=== PATIENT | female | born 1965 | race Caucasian/White ===

== ENCOUNTER → 2017-07-25 10:32 | Outpatient (CLI) | payer MEDICAID, SELFPAY ==
--- NOTE | 2017-07-25 10:32 | DT_ITS ---
This patient was seen during an EMR downtime July 18, 2017 - July 25, 2017. This patient may have a combination of paper and electronic documentation or all paper documentation. All documentation is viewable within the e-chart portion of [employer] for each patient visit.
--- NOTE | 2017-07-25 11:00 | PET_ITS ---
EXAMINATION: FDG PET CT INDICATIONS: A 51-year-old female with reported history of pulmonary nodularity. COMPARISON EXAMINATION: CT of the chest report dated 04/29/17. TECHNIQUE: Following the intravenous administration of 16.42 mCi of F-18 deoxyglucose via the right hand, multiplanar image acquisitions of the neck, chest, abdomen and pelvis to level of mid thigh, obtained at one hour post radiopharmaceutical administration contemporaneously interpreted with the current CT of the neck, chest, abdomen and pelvis to level of mid thigh, dated 07/25/[address] of the chest report dated 04/29/17 reveal: SERUM GLUCOSE LEVEL: 147 mg/dl. HEIGHT: 65 inches. WEIGHT: 340 lbs. FINDINGS: 1. There is no quantitative scintigraphic evidence of abnormal increased glucose metabolism within the context of the right hemithorax pulmonary parenchyma to correlate with structural changes noted on review of CT of the thorax dated 07/25/17. 2. Normal physiologic distribution of the radiopharmaceutical is apparent in the hepatic and splenic parenchyma, both renal units, bladder and visualized intestinal tract. There is symmetric and preserved glucose metabolism noted in the visualized portion of the frontal, occipital, temporal and parietal lobes of the cerebral cortex, as well as cerebral hemispheres and basal ganglia. Diffuse intestinal tract activity is noted throughout all four quadrants of the abdominal-pelvic retroperitoneum, mesentery consistent with normal physiologic distribution of the radiopharmaceutical. Pertinent CT findings are as follows. CHEST: Meticulous attention paid to the right hemithorax demonstrates no evidence of abnormal increased glucose metabolism indicative of viable neoplastic infiltration. Coronary arterial calcification is observed. Right-left axillary and scattered mediastinal soft tissue densities are non-glucose avid. ABDOMEN AND PELVIS: There is fatty metamorphosis involving the hepatic parenchyma. The gallbladder is surgically absent. Calcifications are defined in the bilateral lower hemipelvis without evidence of quantitatively significant increased glucose metabolism. Bilateral inguinal soft tissue densities with fatty hilus formation are ametabolic. SKELETAL: Degenerative changes defined in the cervical, thoracic and lumbar spine demonstrate no evidence for glucose hypermetabolism. PET/PET/CT Tumor Base -Thigh Init IMPRESSION: 1. NEGATIVE EXAMINATION. There is no definitive quantitative scintigraphic evidence of viable neoplasm. 2. Meticulous attention paid to the right hemithorax pulmonary parenchyma demonstrates no evidence of quantitatively significant, discernible increased glucose metabolism as previously described. 3. Anatomic stability may be ensured in the ametabolic right hemithorax pulmonary parenchymal density with repeat CT of the thorax in three months. (Candida, Seminars in Thoracic and Cardiovascular Surgery 14:292, 2002). Electronic Signature David Saez D.O. Electronically Signed: David Saez DO at 22:32 EDT Tel , Service support ,
== END ==
PROVIDERS: Family Provider Family Medicine; PCP Family Medicine; Visit Provider Internal Medicine Pulmonary Disease
DX: R91.1 Solitary pulmonary nodule (principal)
CPT/HCPCS: 78815; A9552; A4216

== ENCOUNTER 2019-09-01 17:04 | Inpatient (IN) | payer MEDICAID, SELFPAY ==
[2019-09-01] VITALS (12 sets, daily range): BP systolic 98–172; BP diastolic 52–89; PULSE 83–102; RESP 14–22; TEMP 36.1–37.2; O2SAT 86–97; BMI 56.2; BMI 57.1
--- NOTE | 2019-09-01 17:39 | ED.DCSUM_ITS ---
History of Present Illness Chief Complaint: Abd Pain Informant: Patient - Abdominal Pain/Flank Pain Onset: Days Context: Gradual Onset Timing: Continuous Quality: Sharp Location: RLQ Narrative: Patient is a 53-year-old female with history of diabetes mellitus and likely COPD on 2 L at baseline presenting with abdominal pain. Patient states she started having vague bloating and abdominal discomfort 3 days ago. She states it felt more like gas pains. And then localized to her right lower quadrant is been worsening since last night. She denies any radiation of pain. She has associated nausea but no vomiting. She states her bowel movements have been normal but a little bit on the loose side. She denies any urinary symptoms. She was concerned because of the worsening of her pain so she came to the emergency room. She denies any other complaints at this time. Past Medical History - Allergies and Home Meds Allergies/Adverse Reactions: Allergies tetanus and diphtheria toxoids Allergy (Unknown, Verified 09/01/19 17:06) Other ketorolac tromethamine [From Toradol] Allergy (Verified 09/01/19 17:06) Other morphine Allergy (Verified 09/01/19 17:06) Itching Primary Care Physician: Samson Todd MD [Primary Care Provider] - Past Medical History: - - Diabetes mellitus, likely COPD Surgical History: cholecystectomy, - - Partial right nephrectomy Lives: Spouse/ Significant Other Smoking Status: Heavy Smoker (>10/day) Review of Systems General: Denies: Chills, Fever, Sweats Eyes: Denies: Visual changes - bilaterally, Diplopia ENT: Denies: Rhinorrhea, Sore throat Cardiovascular: Denies: Chest pain, Palpitations Respiratory: Denies: Dyspnea, Cough, Dyspnea on exertion Gastrointestinal: Reports: Abdominal pain, Nausea. Denies: Vomiting, Diarrhea, Melena, Hematochezia Genitourinary: Denies: Dysuria, Hematuria, Frequency Musculoskeletal: Denies: Back pain, Extremity Pain Skin: Denies: Rash, Wounds Neurological: Denies: Headache, Weakness, Numbness Physical Exam Vital Signs/Narrative: Vital Signs Temp Pulse Resp BP Pulse Ox 09/01/19 17:06 97 F L 89 22 H 168/88 H 95 Inital Vital Signs reviewed: Yes General: Well nourished, Well developed, Obese, No Acute Distress Head: Normocephalic, Atraumatic Eyes: Perrl, EOMI ENT: Moist mucous membranes, No rhinorrhea Neck: Supple, Nontender Cardiovascular: Regular rate, Regular rhythm, No murmurs Respiratory: No distress, CTA bilaterally, Chest nontender Abdomen: Soft, Nondistended, Normal bowel sounds, Tender, - - Abdominal exam is difficult secondary to patient's body habitus however she does seem to be tender in the right lower quadrant. Negative for: Guarding, Rebound tenderness Back: Nontender, Normal Inspection. Negative for: CVA tenderness Extremities: Nontender, No edema Skin: Normal color, No rash Neurological: Alert, Oriented x3, Cranial nerves II-XII grossly intact, Normal Strength, Normal Sensation Psychological: Normal affect, Normal Mood Diagnostic/Tx/Re-eval Clinical Impression(s) from Imaging Studies Abdomen/Pelvis CT 09/01/19 17:45 IMPRESSION: Thickening of the appendix with periappendiceal stranding consistent with acute appendicitis. Electronically Signed: Remington Fraire MD at 19:19 EDT Tel , Service support , Laboratory Data 09/01/19 09/01/19 09/01/19 17:13 17:13 19:30 WBC 13.7 H RBC 6.11 H Hgb 17.8 H Hct 55.0 H MCV 90.0 MCH 29.1 MCHC 32.4 RDW Std Deviation 46.8 H RDW Coeff of Ramy 14.3 Plt Count 227 MPV 10.2 Immature Gran % (Auto) 0.500 Neut % (Auto) 78.0 H Lymph % (Auto) 13.2 L [place] % (Auto) 6.2 Eos % (Auto) 1.7 Baso % (Auto) 0.4 Absolute Neuts (auto) 10.7 H Absolute Lymphs (auto) 1.82 Nucleated RBC % 0 Sodium 137 Potassium 4.0 Chloride 99 Carbon Dioxide 35.0 H Anion Gap 3 L BUN 16 Creatinine 0.56 Estim Creat Clear Calc 105.74 Est GFR (MDRD) Af Amer 147 Est GFR (MDRD) Non-Af 122 BUN/Creatinine Ratio 28.8 H Glucose 242 H Calcium 9.3 Total Bilirubin 0.50 AST 17 ALT 25 Alkaline Phosphatase 107 Total Protein 7.7 Albumin 3.0 L Globulin 4.7 H Albumin/Globulin Ratio 0.6 L Lipase 95 Urine Color Yellow Urine Clarity Sl. Cloudy Urine pH 5.0 Ur Specific [place] 1.020 Urine Protein 100 H Urine Glucose (UA) Normal Urine Ketones Negative Urine Occult Blood 50 H Urine Nitrite Negative Urine Bilirubin Negative Urine Urobilinogen Normal Ur Leukocyte Esterase Negative - Rhythm Strip Rhythm Strip: Sinus Rhythm Rate: 94 Ectopy: None - EKG Initial EKG Interpretation: Sinus Rhythm, - - Normal sinus rhythm at a rate of 94 Right axis Normal intervals Normal ST segments - Medical Decision Making She is evaluated for worsening right lower quadrant abdominal pain. She appears nontoxic in no acute distress. She is given IV fluids, Dilaudid and Zofran for symptom control. She does have improvement of her symptoms but does require another re-dose of Dilaudid in the emergency room. Lab work is significant for mild leukocytosis. Urine shows some signs of inflammation but no UTI. CT is consistent with acute appendicitis. Patient is given IV Zosyn. Case is discussed with Dr. Flores, surgery on-call, who admit the patient to take her to surgery. Patient is kept n.p.o. in the emergency room. She is aware of plan of care and need for surgery. ED Disposition - Plan for ED Patient: Disposition: Acute Care [facility] Diagnosis: Acute appendicitis Referrals: Samson Todd MD [Primary Care Provider] -
--- NOTE | 2019-09-01 17:45 | CT_ITS ---
STUDY: CT ABDOMEN AND PELVIS WITH CONTRAST REASON FOR EXAM: Female, 53 years old. Right lower quadrant pain for 2 days, history of partial right nephrectomy. RADIATION DOSAGE (If Supplied By Facility): CTDIvol = ( 23.97 ) mGy, DLP = ( 3325.11 ) mGycm TECHNIQUE: Transaxial images were obtained from the dome of the diaphragm to the symphysis pubis without oral contrast. IV 100mL Isovue-370 was administered. Sagittal and coronal images were reconstructed. Individualized dose optimization techniques were used for this CT. COMPARISON: 07/23/2010. FINDINGS: The visualized portions of the lung bases demonstrate mild atelectasis or scarring in the lingula. The visualized portions of the heart are within normal limits. Small ill-defined low-density lesions in the posterior segment of the right lobe of the liver. There are surgical clips in the gallbladder fossa consistent with a prior cholecystectomy. Normal spleen. Normal pancreas. Normal bilateral adrenal glands. Deformity of the right kidney without evidence of hydronephrosis. Unremarkable left kidney. Normal visualized stomach. Normal small intestine. The ascending colon is not distended. There is thickening of the appendix with periappendiceal stranding consistent with acute appendicitis. Normal abdominal aorta. Normal inferior vena cava. Normal retroperitoneum. Normal urinary bladder. There is diastases of the anterior rectus muscles. The osseous structures are essentially unremarkable. CT/Abdomen/Pelvis W IV Cont ONLY IMPRESSION: Thickening of the appendix with periappendiceal stranding consistent with acute appendicitis. Electronically Signed: Remington Fraire MD at 19:19 EDT Tel , Service support ,
[2019-09-01 17:54] LABS: Absolute Lymphocyte Count 1.82 X10^3/uL (0.83-4.51); Absolute Neutrophil Count 10.7 X10^3/uL (2.0-7.7); Basophil# 0.05 X10^3/uL; Basophil% 0.4 % (0-1); Eosinophil# 0.24 X10^3/uL; Eosinophils% 1.7 % (0-5); Hemoglobin 17.8 g/dL (12.0-15.0); Lymphocyte # 1.82 X10^3/ul (4.0); Lymphocyte % 13.2 % (19-41); Mean Corp Hgb Conc 32.4 g/dL (32-36); Mean Corpuscular Hgb 29.1 pg (27.0-32.0); Mean Platelet Vol. 10.2 fl (6.2-12.0); Monocyte# 0.85 X10^3/uL; Monocyte% 6.2 % (0-10); NRBC Flagged by Analyzer 0 % (0-5); Neutrophil # 10.71 X10^3/uL (2.7-7.7); Platelet Count 227 K/mm3 (150-450); RBC Distribution Width CV 14.3 % (11.6-14.6); RBC Distribution Width SD 46.8 fl (35.1-43.9); Red Blood Count 6.11 M/mm3 (4.2-5.4); White Blood Count 13.7 K/mm3 (4.4-11.0)
[2019-09-01] MEDS: HYDROmorphone 1 MG/ML Syringe 0.5 MG IV (18:04)
[2019-09-01] MEDS: Ondansetron 4 MG/2 ML Vial IV (18:04)
[2019-09-01] MEDS: 0.9% Normal Saline 1,000 ML 1000 ML IV (18:04)
[2019-09-01 18:11] LABS: ALB/GLOB Ratio 0.6 RATIO (0.9-2.4); AST(SGOT) 17 U/L (15-37); Alanine Aminotransfer ALT/SGPT 25 U/L (13-56); Alkaline Phosphatase 107 U/L (45-117); Anion Gap 3 (5-15); BUN 16 mg/dL (7-18); BUN/Creat Ratio 28.8 RATIO (10-20); Calcium,Total 9.3 mg/dL (8.5-10.1); Chloride 99 mmol/L (98-107); Creatinine, Serum 0.56 mg/dL (0.55-1.02); EST Glomerular Filtration Rate 122 mL/min (>60); Est Glom Filt Rate - Afr Amer 147 mL/min (>60); Estimated Creatinine Clearance 105.74 ml/min; Globulin 4.7 g/dL (2.2-4.2); Glucose 242 mg/dL (74-106); Lipase 95 U/L (73-393); Protein, Total 7.7 g/dL (6.4-8.2); Sodium Level 137 mmol/L (136-145)
[2019-09-01 19:44] LABS: Bacteria 0 SEEN /hpf (None Seen); Mucous, Urine 0 SEEN /hpf (<or=2+); White Blood Cells 0 SEEN /hpf (0-5)
[2019-09-01 19:46] LABS: Color, Urine Yellow (Yellow); Glucose, Dipstick Normal (Normal); Ketone-Dipstick Negative (Negative); Leukocyte Esterase-Dipstick Negative /ul (Negative); Nitrite-Dipstick Negative (Negative); Occult Blood-Urine 50 /ul (Negative); Protein-Dipstick 100 mg/dl (Negative); Urine Bilirubin Dipstick Negative (Negative); Urine Clarity Sl. Cloudy (Clear); Urine Urobilinogen Normal (Normal)
--- NOTE | 2019-09-01 19:50 | EKG12_ITS ---
Test Reason : PREOP Blood Pressure : / mmHG Vent. Rate : 094 BPM Atrial Rate : 094 BPM P-R Int : 202 ms QRS Dur : 082 ms QT Int : 386 ms P-R-T Axes : 068 113 073 degrees QTc Int : 482 ms Normal sinus rhythm Possible Left atrial enlargement Right axis deviation Prolonged QT Abnormal ECG Confirmed by ANANYA MALLOY, YARA ([id number]), telegraph editor FUNMILAYO HERNANDEZ ([id number]) on 09/04/2019 9:27:54 AM Referred By: Sabi Flores Confirmed By:YARA HARE MD
[2019-09-01] MEDS: HYDROmorphone 0.5 MG/0.5 ML SYRINGE IV (20:08)
[2019-09-01 20:15] LABS: Squamous Epithelial Cells - UA 5-10 SEEN /hpf (5-10)
--- NOTE | 2019-09-01 20:15 | RAD_ITS ---
STUDY: X-RAY CHEST REASON FOR EXAM: Female, 53 years old. Right lower quadrant pain for 2 days. TECHNIQUE: Single AP portable view of the chest. COMPARISON: 12/29/2010. FINDINGS: Slightly prominent markings but no focal infiltrate is seen. There is no demonstrated pleural abnormality. There is borderline cardiomegaly. Normal mediastinum and ravi. Normal visualized pulmonary arteries. Normal visualized aortic arch and descending thoracic aorta. The thoracic spine is not visualized. Normal visualized ribs, clavicles, and shoulders. There is no demonstrated abnormality of the visualized soft tissue structures of the upper abdomen. RAD/Chest 1 View (Portable) IMPRESSION: Borderline cardiomegaly. No active pulmonary disease. Electronically Signed: Remington Fraire MD at 20:59 EDT Tel , Service support ,
[2019-09-01 20:16] LABS: Red Blood Cells-Urine 0-5 SEEN /hpf (0-5)
--- NOTE | 2019-09-01 20:31 | HP.PCM_ITS ---
History of Present Illness Date of Admission: 09/01/19 The patient is a 53 year old F presented to the ER due to abdominal pain in the right lower/mid quadrant starting last night. Patient did have nausea denies any vomiting. Patient last ate some eggs around 11 AM. Patient is abdominal surgeries include partial right nephrectomy due to cancer, laparoscopic cholecystectomy. Patient has bowel movements daily denies any blood. Patient is never had a colonoscopy. Patient CT abdomen pelvis was consistent with acute appendicitis. Patient does have a leukocytosis of 13. Patient did receive Zosyn IV in the ER. Patient's past medical history for COPD normally on 2 L nasal cannula at home, diabetes, high blood pressure. Past Medical History Past Medical History (Chronic Problems): Chronic Problems (Last Updated 12/26/18 @ 12:49 by Zuleyka Rosenberg) Hx of partial nephrectomy (Chronic) Chronic back pain (Chronic) Tobacco dependence syndrome (Chronic) Morbid obesity (Chronic) Benign essential hypertension (Chronic) Medical History: Medical History (Last Updated 12/26/18 @ 12:49 by Zuleyka Rosenberg) Degenerative disc disease Depression F32.9 IBS (irritable bowel syndrome) K58.9 Microalbuminuria R80.9 Obesity E66.9 Panic disorder F41.0 Sleep apnea G47.30 Type 2 diabetes mellitus E11.9 Urinary calculus N20.9 HTN (hypertension) I10 Allergies tetanus and diphtheria toxoids Allergy (Unknown, Verified 09/01/19 17:06) Other ketorolac tromethamine [From Toradol] Allergy (Verified 09/01/19 17:06) Other morphine Allergy (Verified 09/01/19 17:06) Itching Home Medications: Ambulatory Orders Medication Instructions Recorded Atenolol [Tenormin (Beta Asha)] 50 mg PO DAILY 03/04/15 Fenofibrate [Lofibra] 160 mg PO DAILY 03/04/15 Furosemide [Lasix] 40 mg PO DAILY 03/04/15 Gabapentin [Neurontin] 300 mg PO TID 03/04/15 Lisinopril/Hydrochlorothiazide 2 tab PO DAILY 03/04/15 [Zestoretic 02/02.5 Tablet] Venlafaxine XR [Effexor Xr] 225 mg PO DAILY 03/04/15 metFORMIN HCl [Glucophage] 1,000 mg PO BIDCM 03/04/15 albuterol sulfate 90 mcg/actuation 2 inh INHALATION Q4H PRN ea 12/26/18 breath activated powder inhaler aspirin 81 mg tablet,delayed 81 mg PO DAILY 12/26/18 release atorvastatin 40 mg tablet 40 mg PO QHS 12/26/18 blood sugar diagnostic See Rx Instructions .ROUTE 12/26/18 .MEDSUPPLY #10 ea dulaglutide 1.5 mg/0.5 mL 1.5 mg SC QWEEK 12/26/18 subcutaneous pen injector ertugliflozin 5 mg tablet 5 mg PO QAM 12/26/18 ibuprofen 800 mg tablet 800 mg PO Q6H PRN 12/26/18 insulin aspart U-100 100 unit/mL See Rx Instructions SC TID 12/26/18 (3 mL) subcutaneous pen lancets 28 gauge See Rx Instructions .ROUTE 12/26/18 .MEDSUPPLY #25 ea pen needle, diabetic 29 gauge x See Rx Instructions .ROUTE 12/26/18 1/2 .MEDSUPPLY #30 ea potassium chloride 10 mEq 20 meq PO DAILY tab 12/26/18 tablet,extended release Insulin Degludec [Tresiba 88 unit SQ BID 09/01/19 Flextouch U-100] Tiotropium [place] [Spiriva 18 MCG] 1 puff INHALATION DAILY 09/01/19 Surgical History: Surgical History (Last Updated 12/26/18 @ 12:50 by Zuleyka Rosenberg) H/O dilation and curettage Z98.890 H/O lithotripsy Z98.890 x2 History of renal stent x 3 Hx of cholecystectomy Z90.49 R lower portion of kidney removed 2009 repair of r arm fx as child Surgical History: cholecystectomy, - - Partial right nephrectomy Psychiatric History: No pertinent psych hx 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 Lives: Spouse/ Significant Other Smoking Status: Heavy Smoker (>10/day) - Pack-a-day - *Family History Maternal Family History: Family History (Last Updated 12/26/18 @ 12:51 by Zuleyka Rosenberg) Aunt Diabetes Father Heart disease Sister Heart disease Grandfather Colon cancer Unknown Breast cancer History Items: No pertinent history VTE Information - Inpt Only VTE Present on Admission: Yes VTE Mechan Device Prophylaxis: SCD's Patient Problems: Active and Suspected Problems (Last Updated 12/26/18 @ 12:49 by Zuleyka Rosenberg) Acute appendicitis (Acute) - Physical Exam Vitals/I&O's: Vital Signs Temp Pulse Resp BP Pulse Ox 97 F L 95 18 143/74 H 92 09/01/19 17:06 09/01/19 19:43 09/01/19 19:43 09/01/19 19:43 09/01/19 19:43 Oxygen Flow Rate (L/min) 3 Oxygen Delivery Method Nasal Cannula Weight: 337 lb 15.498 oz Body Mass Index (BMI) 56.2 General: Alert, Oriented x3, Cooperative, No apparent distress HEENT: Atraumatic Lungs: Short of Breath - Better with nasal cannula 3 liters Cardiovascular: Regular rate Abdomen: Soft, Non-Distended, Obese, Tender - Right mid/lower abdomen, no peritoneal signs Extremities: - - Bilateral venous stasis changes due to diabetes Laboratory Results 09/01/19 17:13: WBC 13.7 H, RBC 6.11 H, Hgb 17.8 H, Hct 55.0 H, MCV 90.0, MCH 29.1, MCHC 32.4, RDW Std Deviation 46.8 H, RDW Coeff of Ramy 14.3, Plt Count 227, MPV 10.2, Immature Gran % (Auto) 0.500, Neut % (Auto) 78.0 H, Lymph % (Auto) 13.2 L, [place] % (Auto) 6.2, Eos % (Auto) 1.7, Baso % (Auto) 0.4, Absolute Neuts (auto) 10.7 H, Absolute Lymphs (auto) 1.82, Nucleated RBC % 0 09/01/19 17:13: Sodium 137, Potassium 4.0, Chloride 99, Carbon Dioxide 35.0 H, Anion Gap 3 L, BUN 16, Creatinine 0.56, Estim Creat Clear Calc 105.74, Est GFR (MDRD) Af Amer 147, Est GFR (MDRD) Non-Af 122, BUN/Creatinine Ratio 28.8 H, Glucose 242 H, Calcium 9.3, Total Bilirubin 0.50, AST 17, ALT 25, Alkaline Phosphatase 107, Total Protein 7.7, Albumin 3.0 L, Globulin 4.7 H, Albumin/Globulin Ratio 0.6 L, Lipase 95 09/01/19 19:30: Urine Color Yellow, Urine Clarity Sl. Cloudy, Urine pH 5.0, Ur Specific [place] 1.020, Urine Protein 100 H, Urine Glucose (UA) Normal, Urine Ketones Negative, Urine Occult Blood 50 H, Urine Nitrite Negative, Urine Bilirubin Negative, Urine Urobilinogen Normal, Ur Leukocyte Esterase Negative, Urine RBC 0-5 SEEN, Urine WBC 0 SEEN, Ur Squamous Epith Cells 5-10 SEEN, Urine Bacteria 0 SEEN, Urine Mucus 0 SEEN Assessment/Plan All Active Problems (Last Updated 12/26/18 @ 12:49 by Zuleyka Rosenberg) Acute appendicitis (Acute) 53-year-old female with acute appendicitis, COPD on 2 L nasal cannula at home., hypertension, diabetes 1. Discussed procedure laparoscopic appendectomy, possible open, possible bowel resection along with the risk but not limited to bleeding, infection/abscess, injury to another organ (small bowel, colon, etc.), adhesion, hernia at incision sites, and anesthesia. Also discussed with patient that due to her COPD there could be a chance of her remaining intubated going to the ICU initially after surgery. Patient and her no further questions this time. Sabi Flores M.D. Pager: [phone] [facility] [address] [place] [address], [address] [place] [address] Office: [phone] Procedure Criteria COVID Risk Discussion: Procedure essential: Yes On 05/01/2019 the [facility] Health ([facility]) Public Order signed by [facility] Director Kesha Thomas M.D., regarding the Management of Non-Essential Surgeries and Procedures for the purpose of preserving Personal Protective Equipment (PPE) and critical hospital capacity and resources within [place] went into effect as of 05/02/2019 at 5:00PM. According to the [facility] Public Order: This action will remain in full force and effect until the State of Emergency declared by the Governor no longer exists or the Director of the [facility] rescinds or modifies this Order. This [facility] order stated all non-essential or elective surgeries and procedures that utilize PPE should be delayed unless there is undue risk to the current or future health of a patient. After reviewing the aforementioned [facility] Public Order and the patients clinical case, I have determined that the scheduled procedure meets the criteria to go forward. Reason for performing procedure: There is a risk of rapidly worsening to severe symptoms (time sensitive).
--- NOTE | 2019-09-01 20:38 | ED.RN ---
report called to POLICY CHANGE CLERK.
[2019-09-01 20:46] LABS: Bedside Glucose 242 mg/dL (70-110)
--- NOTE | 2019-09-01 21:00 | APP_PTH ---
PATIENT: JORDYN MATHEW LOC: PCU U#:[id number] AGE/SX: 53/F ROOM: [facility] RE09/01/[address]: Dr. Sabi Flores MD : [id number] BED: 1 DIS: 09/05/2019 SPEC #: [id number] RECD: 09/03/19 08:54 STATUS: DUNG RERubén #: [id number] MARISOL: 09/01/19 21:[address]: Sabi Flores DEPT: SURGICAL PATHOLOGY RECD BY: Hai Cisneros ENTERED: 09/03/19 11:06 SP TYPE: APPENDIX OTHR DR: DO Dr. Samson Falk MD Tissues: Appendix, NOS Procedures: Surgery Specimen Level III HEADER OPERATION: Laparoscopic appendectomy PRE-OP DIAGNOSIS: Acute appendicitis TISSUE SUBMITTED: Appendix MICROSCOPIC DIAGNOSIS Appendix, appendectomy: Acute appendicitis and periappendicitis. SJ:cristopher 09/04/19 MICROSCOPIC DESCRIPTION Slides are reviewed. GROSS DESCRIPTION Received is one container labeled with the patient's name and designated appendix. The specimen consists of an appendix measuring 7 cm in length and up to 0.7 cm in diameter. The attached periappendiceal adipose tissue measures up to 1.5 cm in width. No obvious perforation is identified. The serosal surface is covered with dunlap, purulent exudate. The mucosa is congested and hemorrhagic. The lumen does not contain any fecalith. Electrical Discharge Machine Operator sections are submitted in one cassette. / YAZAN:cristopher 09/03/19 TC:1 CPT: 74551
[2019-09-01] MEDS: Bupiv/Epi 0.5% Mpf 30 ML Vial (21:26)
--- NOTE | 2019-09-01 22:21 | CPS ---
Critical ABG results read back to DIRECTOR OF HOSPITALITY
[2019-09-01 22:25] LABS: Base Excess 10 mmol/L (-2 to +2); Bicarbonate 36.3 mmol/L (22-26); PO2 166 mmHG (75-100); SO2 99 % (95-99); Total Carbon Dioxide 38 mmol/L
--- NOTE | 2019-09-01 22:31 | PCM.OPRPT ---
Report of Operation Date of Procedure: 09/01/19 Pre-Operative Diagnosis: Acute appendicitis Post-Operative Diagnosis: Ruptured appendicitis Surgery/Procedure Performed:: Laparoscopic appendectomy Type of Anesthesia:: General/Supplemental Anesthesiologist: Sp Reid Special Medications: Zosyn 3.375 g IV x1 given in the ER for acute appendicitis Specimen's removed: Appendix Drains: Acuña placed at the end of the case Estimated Blood Loss (mL): 10 cc Fluids Replaced: Per anesthesia Description of Procedure: Indications: 53-year-old female presented to the ER with new right lower quadrant pain starting last night. On workup she was found to have acute appendicitis on CT and a leukocytosis of 18, patient has a past medical history of COPD is on 2 L nasal cannula at home. Patient was started on antibiotics in the ER for acute appendicitis-Zosyn 3.375 g IV x1 Description of the procedure: The patient was placed on operating table in supine position. General anesthesia was induced. A timeout was completed verifying correct patient, procedure, position and special equipment prior to beginning procedure. Abdomen was prepped and draped in usual sterile fashion. Incision was made in the natural skin mid abdomen/midline with a 15 blade scalpel. The fascia was elevated and incised. Entry into the peritoneum was confirmed visually and no bowel was noted in the vicinity of the incision. The Soto trocar was placed under direct vision. Abdomen insufflated with a pressure of 12-15 mmHg. Patient tolerated insertion well. The scope was inserted and the abdomen inspected. No injuries from initial trocar placement were noted. Small amount of purulent fluid was seen in the right lower quadrant. An direct visualization 2 -5 mm trocars were placed one above the symphysis pubis (below the umbilicus as patient does have a pannus) and below the hairline and one in the left lower quadrant lateral to the rectus muscle. Care is taken to avoid injury to the bladder and inferior epigastric vessels. The table was placed in Trendelenburg position with the right side elevated. Due to body habitus an additional 5 mm trocar was placed in the right midabdomen. The appendix was grasped with atraumatic grasper and elevated. It was noted to be inflamed with some purulent fluid in the right lower quadrant, which was sent for culture.. A window was developed in the mesoappendix at the point between the base of the appendix and the cecum. An endoscopic 45 mm linear cutting stapler blue load was then used to divide and staple the base of the appendix. It was reloaded with a vascular load and the mesoappendix similarly divided. Enseal was also used to help free up the dense adhesions attaching the appendix to the side of the cecum. The appendix was withdrawn into the Soto trocar after being placed endoscopically retrieval bag. Appendix was sent to pathology. The appendiceal stump was then irrigated and hemostasis was assured. Fluid was suctioned no other pathology was identified. Secondary trochars were removed under direct visualization. No bleeding was noted trocar sites. The laparoscope withdrawn and the umbilical trocar removed. The abdomen was allowed to collapse. Local anesthesia of 30 mL of 0.5% Marcaine was used at the incision sites. The umbilical trocar site was closed with the [id number] 0 Vicryl suture. The skin was closed up to clear sutures of 4-0 Monocryl and Steri-Strips. Due to patient's history of COPD and CO2 of 70 after intubation patient was kept intubated and taken to the ICU in stable condition. - Complications none
[2019-09-01 22:46] LABS: Blood Gas Specimen Type ALINE; Mode A-C; O2 Delivery Device Vent; Vt 430
[2019-09-01 22:47] LABS: FI02 100; PEEP 4; Time Given 2152
--- NOTE | 2019-09-01 23:19 | RAD_ITS ---
STUDY: X-RAY CHEST REASON FOR EXAM: Female, 53 years old. ETT tube placement TECHNIQUE: Frontal view COMPARISON: None. FINDINGS: ET tube is in the mid trachea. NG tube is in the stomach. Lungs are expanded. There are bibasilar infiltrates and small effusions. There is NO pneumothorax. There is no demonstrated pleural abnormality. Heart is enlarged. Normal mediastinum and ravi. Normal visualized pulmonary arteries. Normal visualized aortic arch and descending thoracic aorta. Normal visualized thoracic spine. Normal visualized ribs, clavicles, and shoulders. There is no demonstrated abnormality of the visualized soft tissue structures of the upper abdomen. RAD/Chest 1 View (Portable) IMPRESSION: ET tube is in the mid trachea. NG tube is in the stomach. Lungs are expanded. There are bibasilar infiltrates and small effusions. There is NO pneumothorax. Heart is enlarged. Electronically Signed: Pascual Stephenson MD at 4:18 EDT , Service support ,
--- NOTE | 2019-09-01 23:52 | RAD_ITS ---
STUDY: X-RAY - ABDOMEN/PELVIS REASON FOR EXAM: Female, 53 years old. OG tube placement TECHNIQUE: Frontal view COMPARISON: None. FINDINGS: NG tube is in the stomach. There is an unremarkable bowel gas pattern. There is no demonstrated free abdominal air. The visualized liver, spleen and kidneys are grossly normal in size and morphology. Normal soft tissue structures. Normal visualized osseous structures. RAD/Abdomen Single View IMPRESSION: NG tube is in the stomach. Electronically Signed: Pascual Stephenson MD at 4:18 EDT , Service support ,
[2019-09-02] VITALS (42 sets, daily range): BP systolic 94–130; BP diastolic 53–66; PULSE 84–97; RESP 13–26; TEMP 37.1–38.5; O2SAT 90–95
[2019-09-02] MEDS: Propofol 10MG/Ml 1,000 MG/100 ML Bottle 9.2 MG CONT INF
[2019-09-02] MEDS: 0.9% Normal Saline 1,000 ML 120 ML IV (00:01)
[2019-09-02] MEDS: Insulin Lispro 100 UNIT/ML INSULN.PEN SC ×5 (00:21→23:33)
[2019-09-02 00:46] LABS: Bedside Glucose 281 mg/dL (70-110)
--- NOTE | 2019-09-02 01:07 | NURSING ---
Pt sedated and intubated at time of admit, unable to address room orientation.
[2019-09-02 01:46] LABS: Base Excess 6 mmol/L (-2 to +2); PO2 81 mmHG (75-100); SO2 94 % (95-99); Total Carbon Dioxide 35 mmol/L; pCO2 69.8 mmHg (35-45); pH 7.28 (7.35-7.45)
[2019-09-02 02:11] LABS: Blood Gas Specimen Type ALINE; Mode A-C; SITE ART LINE
[2019-09-02 02:12] LABS: FI02 60; O2 Delivery Device Vent; PEEP 8; RR 14; Time Given 115; Vt 450
--- NOTE | 2019-09-02 02:13 | CPS ---
Critical blood gas results given to Gilberto JIMENEZ.
[2019-09-02 02:17] LABS: CPK Total, Creatine Kinase 69 U/L (26-192); Triglycerides 235 mg/dL
[2019-09-02] MEDS: Propofol 10MG/Ml 1,000 MG/100 ML Bottle 27.6 MG CONT INF (03:25)
[2019-09-02 04:58] LABS: Absolute Lymphocyte Count 1.49 X10^3/uL (0.83-4.51); Absolute Neutrophil Count 14.4 X10^3/uL (2.0-7.7); Basophil# 0.04 X10^3/uL; Basophil% 0.2 % (0-1); Eosinophil# 0.04 X10^3/uL; Eosinophils% 0.2 % (0-5); Hematocrit 49.7 % (37-47); Hemoglobin 15.5 g/dL (12.0-15.0); Lymphocyte # 1.49 X10^3/ul (4.0); Lymphocyte % 8.7 % (19-41); Mean Corp Hgb Conc 31.2 g/dL (32-36); Mean Corpuscular Hgb 28.8 pg (27.0-32.0); Mean Corpuscular Volume 92.4 fL (81-99); Mean Platelet Vol. 9.7 fl (6.2-12.0); Monocyte# 1.07 X10^3/uL; Monocyte% 6.2 % (0-10); NRBC Flagged by Analyzer 0 % (0-5); Neutrophil # 14.42 X10^3/uL (2.7-7.7); Neutrophil % 84.2 % (47-70); Platelet Count 202 K/mm3 (150-450); RBC Distribution Width CV 14.8 % (11.6-14.6); RBC Distribution Width SD 49.6 fl (35.1-43.9); Red Blood Count 5.38 M/mm3 (4.2-5.4); White Blood Count 17.2 K/mm3 (4.4-11.0)
[2019-09-02 05:34] LABS: Anion Gap 4 (5-15); BUN 22 mg/dL (7-18); BUN/Creat Ratio 26.6 RATIO (10-20); Calcium,Total 8.2 mg/dL (8.5-10.1); Chloride 101 mmol/L (98-107); Creatinine, Serum 0.83 mg/dL (0.55-1.02); EST Glomerular Filtration Rate 77 mL/min (>60); Est Glom Filt Rate - Afr Amer 93 mL/min (>60); Estimated Creatinine Clearance 71.35 ml/min; Glucose 282 mg/dL (74-106); Potassium 4.1 mmol/L (3.5-5.1); Sodium Level 138 mmol/L (136-145)
--- NOTE | 2019-09-02 06:13 | CON.PCM_ITS ---
Reason for Consult Date of Consultation: 09/02/19 Reason for Consultation: Acute respiratory failure History of Present Illness: The patient is a 53-year-old female, with a history as outlined below, who presented to the emergency department on August 31 with generalized abdominal discomfort which later became more focal to the right lower quadrant. The patient has an apparent history of COPD, KELLIE and tobacco dependency, which is being managed by Dr. Bernard at [facility]. She also apparently has a 2 L/min baseline supplemental oxygen requirement. History pertinent to the patient's hospitalization was obtained primarily via chart review, as the patient is currently intubated and mechanically ventilated. The exact severity of her underlying pulmonary disease is unknown. On presentation to the emergency department, the patient was noted to be afebrile and was hemodynamically stable. Laboratory evaluation revealed an elevated white blood cell count of 14,000. The patient was polycythemic with a hemoglobin of 17.8 g/dL. Chemistry profile was notable for a bicarbonate of 35. Lipase was within normal limits. CT abdomen/pelvis revealed thickening of the appendix with periappendiceal stranding consistent with acute appendicitis. The patient was subsequently evaluated by general surgery and taken to the OR on the evening of August 31, where she was noted to have a ruptured appendix and underwent laparoscopic appendectomy. The patient was left intubated following the procedure and was returned to the medical intensive care unit for further management. Past Medical History Past Medical History (Chronic Problems): Chronic Problems (Last Updated 12/26/18 @ 12:49 by Zuleyka Rosenberg) Hx of partial nephrectomy (Chronic) Chronic back pain (Chronic) Tobacco dependence syndrome (Chronic) Morbid obesity (Chronic) Benign essential hypertension (Chronic) Medical History: Medical History (Last Updated 12/26/18 @ 12:49 by Zuleyka Rosenberg) Degenerative disc disease Depression F32.9 IBS (irritable bowel syndrome) K58.9 Microalbuminuria R80.9 Obesity E66.9 Panic disorder F41.0 Sleep apnea G47.30 Type 2 diabetes mellitus E11.9 Urinary calculus N20.9 HTN (hypertension) I10 Allergies tetanus and diphtheria toxoids Allergy (Unknown, Verified 09/01/19 17:06) Other ketorolac tromethamine [From Toradol] Allergy (Verified 09/01/19 17:06) Other morphine Allergy (Verified 09/01/19 17:06) Itching Home Medications: Ambulatory Orders Medication Instructions Recorded Atenolol [Tenormin (Beta Asha)] 50 mg PO DAILY 03/04/15 Fenofibrate [Lofibra] 160 mg PO DAILY 03/04/15 Furosemide [Lasix] 40 mg PO DAILY 03/04/15 Gabapentin [Neurontin] 300 mg PO TID 03/04/15 Lisinopril/Hydrochlorothiazide 2 tab PO DAILY 03/04/15 [Zestoretic /12.5 Tablet] Venlafaxine XR [Effexor Xr] 225 mg PO DAILY 03/04/15 metFORMIN HCl [Glucophage] 1,000 mg PO BIDCM 03/04/15 albuterol sulfate 90 mcg/actuation 2 inh INHALATION Q4H PRN ea 12/26/18 breath activated powder inhaler aspirin 81 mg tablet,delayed 81 mg PO DAILY 12/26/18 release atorvastatin 40 mg tablet 40 mg PO QHS 12/26/18 blood sugar diagnostic See Rx Instructions .ROUTE 12/26/18 .MEDSUPPLY #10 ea dulaglutide 1.5 mg/0.5 mL 1.5 mg SC QWEEK 12/26/18 subcutaneous pen injector ertugliflozin 5 mg tablet 5 mg PO QAM 12/26/18 ibuprofen 800 mg tablet 800 mg PO Q6H PRN 12/26/18 insulin aspart U-100 100 unit/mL See Rx Instructions SC TID 12/26/18 (3 mL) subcutaneous pen lancets 28 gauge See Rx Instructions .ROUTE 12/26/18 .MEDSUPPLY #25 ea pen needle, diabetic 29 gauge x See Rx Instructions .ROUTE 12/26/18 1/2 .MEDSUPPLY #30 ea potassium chloride 10 mEq 20 meq PO DAILY tab 12/26/18 tablet,extended release Insulin Degludec [Tresiba 88 unit SQ BID 09/01/19 Flextouch U-100] Tiotropium Lodge [Spiriva 18 MCG] 1 puff INHALATION DAILY 09/01/19 Surgical History: Surgical History (Last Updated 12/26/18 @ 12:50 by Zuleyka Rosenberg) H/O dilation and curettage Z98.890 H/O lithotripsy Z98.890 x2 History of renal stent x 3 Hx of cholecystectomy Z90.49 R lower portion of kidney removed 2009 repair of r arm fx as child Surgical History: cholecystectomy, - - Partial right nephrectomy Psychiatric History: No pertinent psych hx GIG TENDER History: No pertinent GIG TENDER history Lives: Spouse/ Significant Other Smoking Status: Heavy Smoker (>10/day) - *Family History Maternal Family History: Family History (Last Updated 12/26/18 @ 12:51 by Zuleyka Rosenberg) Aunt Diabetes Father Heart disease Sister Heart disease Grandfather Colon cancer Unknown Breast cancer History Items: No pertinent history Review of Systems Unable to obtain accurate/complete ROS d/t: Due to current intubation and mechanical ventilation status. Patient Problems: Active and Suspected Problems (Last Updated 12/26/18 @ 12:49 by Zuleyka Rosenberg) Acute appendicitis (Acute) Objective: The patient's most recent lab work, culture data and imaging studies have all been personally reviewed. - Physical Exam Vitals/I&O's: Vital Signs Temp Pulse Resp BP Pulse Ox 99.1 F 95 26 H 119/66 94 09/02/19 06:00 09/02/19 06:00 09/02/19 06:00 09/02/19 06:00 09/02/19 06:00 Oxygen Flow Rate (L/min) 4 Oxygen Delivery Method Mechanical Ventilator Weight: 343 lb 0.628 oz Body Mass Index (BMI) 56.2 Finger Stick Blood Glucose 242 Intake and Output for Last 24 Hours 08/31/19 09/01/19 09/02/19 23:59 23:59 23:59 Intake Total 1253.62 / 1253.62 Output Total 210 / 235 220 / 220 Balance -210 / -235 1033.62 / 1033.62 General: Alert, No apparent distress, - - Super morbidly obese. Intubated and mechanically ventilated. Currently tolerating spontaneous mode of mechanical ventilation with marginal tidal volumes and oxygen saturation. HEENT: Atraumatic, Normocephalic Oral: No Gingival or Mucosal Lesions/ Ulcerations, - - Endotracheal tube in place. Neck: Supple, No Nodes, Trachea Midline Lungs: No rhonchi, No wheeze, No rales, Diminished Cardiovascular: Regular rate, Regular Rhythm, No murmurs Abdomen: Bowel Sounds Present, Soft, Obese Extremities: No clubbing, No cyanosis, Diminished Peripheral Pulses, Edema Skin: No breakdown Musculoskeletal: No Muscle Wasting Lymphatic: No Cervical, Supraclavicular, or Inguinal Adenopathy Neurological: - - No focal neurological deficits. Alert and able to follow simple commands. Labs (Last 48 Hours) 09/01/19 09/01/19 09/01/19 17:13 17:13 17:13 WBC 13.7 H RBC 6.11 H Hgb 17.8 H Hct 55.0 H MCV 90.0 MCH 29.1 MCHC 32.4 RDW Std Deviation 46.8 H RDW Coeff of Ramy 14.3 Plt Count 227 MPV 10.2 Immature Gran % (Auto) 0.500 Neut % (Auto) 78.0 H Lymph % (Auto) 13.2 L [place] % (Auto) 6.2 Eos % (Auto) 1.7 Baso % (Auto) 0.4 Absolute Neuts (auto) 10.7 H Absolute Lymphs (auto) 1.82 Nucleated RBC % 0 Specimen Type Sample Site pH Bicarbonate Actual POC Total CO2 Base Excess O2 Saturation O2 % ABG pCO2 ABG pO2 Graeme Test Respiration Rate O2 Delivery Device Vent Mode Tidal Volume POC PEEP Blood Gas Notified Whom Blood Gas Notified Time Sodium 137 Potassium 4.0 Chloride 99 Carbon Dioxide 35.0 H Anion Gap 3 L BUN 16 Creatinine 0.56 Estim Creat Clear Calc 105.74 Est GFR (MDRD) Af Amer 147 Est GFR (MDRD) Non-Af 122 BUN/Creatinine Ratio 28.8 H Glucose 242 H Hemoglobin A1c Calcium 9.3 Total Bilirubin 0.50 AST 17 ALT 25 Alkaline Phosphatase 107 Total Creatine Kinase 69 Total Protein 7.7 Albumin 3.0 L Globulin 4.7 H Albumin/Globulin Ratio 0.6 L Triglycerides 235 H Lipase 95 Urine Color Urine Clarity Urine pH Ur Specific [place] Urine Protein Urine Glucose (UA) Urine Ketones Urine Occult Blood Urine Nitrite Urine Bilirubin Urine Urobilinogen Ur Leukocyte Esterase Urine RBC Urine WBC Ur Squamous Epith Cells Urine Bacteria Urine Mucus POC Glucose 09/01/19 09/01/19 09/01/19 19:30 20:41 22:09 WBC RBC Hgb Hct MCV MCH MCHC RDW Std Deviation RDW Coeff of Ramy Plt Count MPV Immature Gran % (Auto) Neut % (Auto) Lymph % (Auto) [place] % (Auto) Eos % (Auto) Baso % (Auto) Absolute Neuts (auto) Absolute Lymphs (auto) Nucleated RBC % Specimen Type ELOISE Sample Site pH 7.30 L Bicarbonate Actual 36.3 H POC Total CO2 38 Base Excess 10 H O2 Saturation 99 O2 % 100 ABG pCO2 74.0 H* ABG pO2 166 H Graeme Test Respiration Rate O2 Delivery Device Vent Vent Mode A-C Tidal Volume 430 POC PEEP 4 Blood Gas Notified Whom RN Blood Gas Notified Time 215 Sodium Potassium Chloride Carbon Dioxide Anion Gap BUN Creatinine Estim Creat Clear Calc Est GFR (MDRD) Af Amer Est GFR (MDRD) Non-Af BUN/Creatinine Ratio Glucose Hemoglobin A1c Calcium Total Bilirubin AST ALT Alkaline Phosphatase Total Creatine Kinase Total Protein Albumin Globulin Albumin/Globulin Ratio Triglycerides Lipase Urine Color Yellow Urine Clarity Sl. Cloudy Urine pH 5.0 Ur Specific [place] 1.020 Urine Protein 100 H Urine Glucose (UA) Normal Urine Ketones Negative Urine Occult Blood 50 H Urine Nitrite Negative Urine Bilirubin Negative Urine Urobilinogen Normal Ur Leukocyte Esterase Negative Urine RBC 0-5 SEEN Urine WBC 0 SEEN Ur Squamous Epith Cells 5-10 SEEN Urine Bacteria 0 SEEN Urine Mucus 0 SEEN POC Glucose 242 H 09/02/19 09/02/19 09/02/19 00:08 01:18 04:50 WBC 17.2 H RBC 5.38 Hgb 15.5 H Hct 49.7 H MCV 92.4 MCH 28.8 MCHC 31.2 L RDW Std Deviation 49.6 H RDW Coeff of Ramy 14.8 H Plt Count 202 MPV 9.7 Immature Gran % (Auto) 0.500 Neut % (Auto) 84.2 H Lymph % (Auto) 8.7 L [place] % (Auto) 6.2 Eos % (Auto) 0.2 Baso % (Auto) 0.2 Absolute Neuts (auto) 14.4 H Absolute Lymphs (auto) 1.49 Nucleated RBC % 0 Specimen Type [place] Sample Site ART LINE pH 7.28 L Bicarbonate Actual 33.0 H POC Total CO2 35 Base Excess 6 H O2 Saturation 94 L O2 % 60 ABG pCO2 69.8 H* ABG pO2 81 Graeme Test NA Respiration Rate 14 O2 Delivery Device Vent Vent Mode A-C Tidal Volume 450 POC PEEP 8 Blood Gas Notified Whom ICU Blood Gas Notified Time 115 Sodium Potassium Chloride Carbon Dioxide Anion Gap BUN Creatinine Estim Creat Clear Calc Est GFR (MDRD) Af Amer Est GFR (MDRD) Non-Af BUN/Creatinine Ratio Glucose Hemoglobin A1c Calcium Total Bilirubin AST ALT Alkaline Phosphatase Total Creatine Kinase Total Protein Albumin Globulin Albumin/Globulin Ratio Triglycerides Lipase Urine Color Urine Clarity Urine pH Ur Specific [place] Urine Protein Urine Glucose (UA) Urine Ketones Urine Occult Blood Urine Nitrite Urine Bilirubin Urine Urobilinogen Ur Leukocyte Esterase Urine RBC Urine WBC Ur Squamous Epith Cells Urine Bacteria Urine Mucus POC Glucose 281 H 09/02/19 09/02/19 04:50 04:50 WBC RBC Hgb Hct MCV MCH MCHC RDW Std Deviation RDW Coeff of Ramy Plt Count MPV Immature Gran % (Auto) Neut % (Auto) Lymph % (Auto) [place] % (Auto) Eos % (Auto) Baso % (Auto) Absolute Neuts (auto) Absolute Lymphs (auto) Nucleated RBC % Specimen Type Sample Site pH Bicarbonate Actual POC Total CO2 Base Excess O2 Saturation O2 % ABG pCO2 ABG pO2 Graeme Test Respiration Rate O2 Delivery Device Vent Mode Tidal Volume POC PEEP Blood Gas Notified Whom Blood Gas Notified Time Sodium 138 Potassium 4.1 Chloride 101 Carbon Dioxide 33.0 H Anion Gap 4 L BUN 22 H Creatinine 0.83 Estim Creat Clear Calc 71.35 Est GFR (MDRD) Af Amer 93 Est GFR (MDRD) Non-Af 77 BUN/Creatinine Ratio 26.6 H Glucose 282 H Hemoglobin A1c Pending Calcium 8.2 L Total Bilirubin AST ALT Alkaline Phosphatase Total Creatine Kinase Total Protein Albumin Globulin Albumin/Globulin Ratio Triglycerides Lipase Urine Color Urine Clarity Urine pH Ur Specific [place] Urine Protein Urine Glucose (UA) Urine Ketones Urine Occult Blood Urine Nitrite Urine Bilirubin Urine Urobilinogen Ur Leukocyte Esterase Urine RBC Urine WBC Ur Squamous Epith Cells Urine Bacteria Urine Mucus POC Glucose Clinical Impression(s) from Imaging Studies Abdomen/Pelvis CT 09/01/19 17:45 IMPRESSION: Thickening of the appendix with periappendiceal stranding consistent with acute appendicitis. Electronically Signed: Remington Fraire MD at 19:19 EDT Tel , Service support , ADDENDUM: 09/01/192044 Chest X-Ray 09/01/19 20:15 IMPRESSION: Borderline cardiomegaly. No active pulmonary disease. Electronically Signed: Remington Fraire MD at 20:59 EDT Tel , Service support , Chest X-Ray 09/01/19 23:19 IMPRESSION: ET tube is in the mid trachea. NG tube is in the stomach. Lungs are expanded. There are bibasilar infiltrates and small effusions. There is NO pneumothorax. Heart is enlarged. Electronically Signed: Pascual Stephenson MD at 4:18 EDT , Service support , KUB X-Ray 09/01/19 23:52 IMPRESSION: NG tube is in the stomach. Electronically Signed: Pascual Stephenson MD at 4:18 EDT , Service support , Current Medications Acetaminophen (Tylenol) 650 mg PO Q6H PRN PRN PRN Reason: Pain Score 1-10/10 Albuterol Sulfate (Ventolin Aerosols) 2.5 mg INHALATION Q2H PRN PRN PRN Reason: SOB/Wheezing Atenolol (Tenormin (Beta Asha)) 50 mg PO DAILY [facility] Atorvastatin Calcium (Lipitor) 40 mg PO QHS [facility] Last Admin: 09/02/19 02:06 Dose: Not Given Documented by: Dextrose (D50w Syringe) 0 gm IV X1 PRN; Protocol PRN Reason: Hypoglycemia Enoxaparin Sodium (Lovenox) 40 mg SC DAILY RU Furosemide (Lasix) 40 mg PO DAILY [facility] Gabapentin (Neurontin) 300 mg PO TID [facility] Last Admin: 09/02/19 06:06 Dose: Not Given Documented by: Glucagon () 1 mg IM .X1 PRN PRN Reason: Hypoglycemia Hydromorphone HCl (Dilaudid Inj) 0.5 - 1 mg IV Q2H PRN PRN PRN Reason: Pain Score 1-10/10 Sodium Chloride () 1,000 mls @ 120 mls/hr IV .Q8H20M [facility] Last Admin: 09/02/19 00:01 Dose: 120 mls/hr Documented by: Pantoprazole Sodium 40 mg/ (Sodium Chloride) 110 mls @ 330 mls/hr IV Q24 [facility] Last Infusion: 09/02/19 00:52 Dose: Infused Documented by: Piperacillin Sod/Tazobactam (Sod 3.375 gm/ Sodium Chloride) 50 mls @ 12.5 mls/hr IV Q8 [facility] Last Admin: 09/02/19 04:59 Dose: 12.5 mls/hr Documented by: Propofol (Diprivan) 1,000 mg in 100 mls @ 9.198 mls/hr CONT INF .Q29U35M [facility]; Protocol Last Titration: 09/02/19 05:30 Dose: 0 mcg/kg/min, 0 mls/hr Documented by: Fentanyl () 100 mls @ 5 mls/hr CONT INF UD RU; Protocol Last Titration: 09/02/19 06:00 Dose: 0 mcg/hr, 0 mls/hr Documented by: Sodium Chloride () 250 mls @ 15 mls/hr IV .[id number] PRN PRN Reason: Saline Flush Sodium Chloride () 250 mls @ 15 mls/hr IV .[id number] PRN PRN Reason: Additional IVPB Infusion Sodium Chloride () 1,000 mls @ 1 mls/hr IV .Q48H PRN PRN Reason: Saline Flush Insulin Human Lispro (Humalog Kwikpen (Bkc)) 0 unit SC Q6 RU; Protocol Last Admin: 09/02/19 05:09 Dose: 3 u Documented by: Ipratropium Lodge (Atrovent) 0.5 mg INHALATION Q6HWA.RT [facility] Non-Formulary Medication (Ertugliflozin Pidolate [Steglatro]) 5 mg PO QAM RU Nystatin (Mycostatin Powder) 1 applic TOPICAL TID [facility]; Protocol Ondansetron HCl (Zofran) 4 mg IV Q8H PRN PRN PRN Reason: NAUSEA Oxycodone HCl (Oxyir) 5 - 10 mg PO Q4H PRN PRN PRN Reason: Pain Score 6-10/10 Sodium Chloride () 10 - 40 ml IV UD PRN PRN Reason: SALINE FLUSH Venlafaxine HCl (Effexor Xr) 225 mg PO DAILY [facility] Assessment/Plan Active and Suspected Problems (Last Updated 12/26/18 @ 12:49 by Zuleyka Rosenberg) Acute appendicitis (Acute) RECOMMENDATIONS: 1. Place patient back on assist control mode mechanical ventilation, given marginal tidal volumes and oxygen saturation. 2. Obtain repeat plain film chest x-ray. 3. Continue to wean FiO2 as tolerated. 4. Continue scheduled bronchodilator therapy. 5. Continue sliding scale insulin coverage. 6. Continue appropriate ICU prophylaxis. IMPRESSIONS: 1. Acute on chronic combined respiratory failure The patient was initially intubated as a consequence of her need for surgical intervention. She underwent appendectomy but was left intubated given her high risk pulmonary status. Although the patient was placed on a spontaneous breathing trial this morning, her FiO2 requirement remains at 50% with marginal tidal volumes and oxygen saturation. Therefore, the patient will be placed back on assist control mode of mechanical ventilation today. We will plan to obtain repeat plain film chest x-ray. Continue scheduled bronchodilator therapy and wean FiO2 as tolerated. Plan to repeat a spontaneous awakening and breathing trial tomorrow morning. The patient may best be served by being extubated directly to BiPAP for a short period of time, once her readiness for extubation has been established. 2. Acute appendicitis, now POD#1 s/p laparoscopic appendectomy Continue routine postoperative care, including IV antibiotics. Pain will be controlled with fentanyl infusion. 3. COPD of unknown severity/obstructive sleep apnea/continuous tobacco dependency The patient is currently followed through the [facility] system for her underlying obstructive lung disease and sleep apnea. She apparently has a 2 L/min baseline oxygen requirement and continues to smoke cigarettes daily. The exact severity of her underlying lung disease is unknown. However, at the current time, we will plan to continue current supportive measures, including bronchodilator therapy. FiO2 will be weaned as tolerated. 4. Super morbid obesity/hypertension/diabetes mellitus/hyperlipidemia Complicates care, management, recovery and prognosis. Continue sliding scale insulin coverage. TIME: 40 minutes of critical care time, independent of procedures, was spent addressing the patient's acute on chronic combined respiratory failure, acute appendicitis status post laparoscopic appendectomy, COPD, obstructive sleep apnea, super morbid obesity, review of all data and collaboration with the care team. [phone]) [phone]: [id number] Critical care first hour
--- NOTE | 2019-09-02 06:20 | CPS ---
Pt. to be placed on weaning trial per physician's order. Will monitor on trial.
[2019-09-02] MEDS: Ipratropium 0.5 MG/2.5 ML SOLUTION INHALATION ×3 (07:04→18:47)
[2019-09-02 07:17] LABS: Hemoglobin A1c 10.3 % (3.8-5.6)
--- NOTE | 2019-09-02 07:56 | PN.SURG_ITS ---
Patient Problems: Active and Suspected Problems (Last Updated 12/26/18 @ 12:49 by Zuleyka Rosenberg) Acute appendicitis (Acute) Subjective: Patient still requiring 60% FiO2 plan to keep her intubated today per fine patcher. Patient blood sugars are running in the mid 200s, A1c is 10.2, patient is following commands on the vent. - Physical Exam Vitals/I&O's: Vital Signs Temp Pulse Resp BP Pulse Ox 99.0 F 89 22 H 130/64 H 94 09/02/19 07:00 09/02/19 07:21 09/02/19 07:21 09/02/19 07:00 09/02/19 07:21 Oxygen Flow Rate (L/min) 4 Oxygen Delivery Method Mechanical Ventilator Weight: 343 lb 0.628 oz Body Mass Index (BMI) 56.2 Finger Stick Blood Glucose 242 Intake and Output for Last 24 Hours 08/31/19 09/01/19 09/02/19 23:59 23:59 23:59 Intake Total 1253.62 / 1253.62 Output Total 210 / 235 220 / 220 Balance -210 / -235 1033.62 / 1033.62 General: Alert, Cooperative, No apparent distress Cardiovascular: Regular rate Abdomen: Soft, Obese, Tender - Near incisions clean dry and intact with op sites. Extremities: - - Venous stasis changes bilateral lower extremities Psych/Mental Status: Normal Affect Laboratory Results 09/01/19 17:13: WBC 13.7 H, RBC 6.11 H, Hgb 17.8 H, Hct 55.0 H, MCV 90.0, MCH 29.1, MCHC 32.4, RDW Std Deviation 46.8 H, RDW Coeff of Ramy 14.3, Plt Count 227, MPV 10.2, Immature Gran % (Auto) 0.500, Neut % (Auto) 78.0 H, Lymph % (Auto) 13.2 L, [place] % (Auto) 6.2, Eos % (Auto) 1.7, Baso % (Auto) 0.4, Absolute Neuts (auto) 10.7 H, Absolute Lymphs (auto) 1.82, Nucleated RBC % 0 09/01/19 17:13: Sodium 137, Potassium 4.0, Chloride 99, Carbon Dioxide 35.0 H, Anion Gap 3 L, BUN 16, Creatinine 0.56, Estim Creat Clear Calc 105.74, Est GFR (MDRD) Af Amer 147, Est GFR (MDRD) Non-Af 122, BUN/Creatinine Ratio 28.8 H, Glucose 242 H, Calcium 9.3, Total Bilirubin 0.50, AST 17, ALT 25, Alkaline Phosphatase 107, Total Protein 7.7, Albumin 3.0 L, Globulin 4.7 H, Albumi n/Globulin Ratio 0.6 L, Lipase 95 09/01/19 17:13: Total Creatine Kinase 69, Triglycerides 235 H 09/01/19 19:30: Urine Color Yellow, Urine Clarity Sl. Cloudy, Urine pH 5.0, Ur Specific [place] 1.020, Urine Protein 100 H, Urine Glucose (UA) Normal, Urine Ketones Negative, Urine Occult Blood 50 H, Urine Nitrite Negative, Urine Bilirubin Negative, Urine Urobilinogen Normal, Ur Leukocyte Esterase Negative, Urine RBC 0-5 SEEN, Urine WBC 0 SEEN, Ur Squamous Epith Cells 5-10 SEEN, Urine Bacteria 0 SEEN, Urine Mucus 0 SEEN 09/01/19 20:41: POC Glucose 242 H 09/01/19 22:09: Specimen Type ELOISE, pH 7.30 L, Bicarbonate Actual 36.3 H, POC Total CO2 38, Base Excess 10 H, O2 Saturation 99, O2 % 100, ABG pCO2 74.0 H*, ABG pO2 166 H, O2 Delivery Device Vent, Vent Mode A-C, Tidal Volume 430, POC PEEP 4, Blood Gas Notified Whom RN, Blood Gas Notified Time 67409/02/19 00:08: POC Glucose 281 H 09/02/19 01:18: Specimen Type ELOISE, Sample Site ART LINE, pH 7.28 L, Bicarbonate Actual 33.0 H, POC Total CO2 35, Base Excess 6 H, O2 Saturation 94 L , O2 % 60, ABG pCO2 69.8 H*, ABG pO2 81, Graeme Test NA, Respiration Rate 14, O2 Delivery Device Vent, Vent Mode A-C, Tidal Volume 450, POC PEEP 8, Blood Gas Notified Whom ICU , Blood Gas Notified Time 115 09/02/19 04:50: WBC 17.2 H, RBC 5.38, Hgb 15.5 H, Hct 49.7 H, MCV 92.4, MCH 28.8, MCHC 31.2 L, RDW Std Deviation 49.6 H, RDW Coeff of Ramy 14.8 H, Plt Count 202, MPV 9.7, Immature Gran % (Auto) 0.500, Neut % (Auto) 84.2 H, Lymph % (Auto) 8.7 L, [place] % (Auto) 6.2, Eos % (Auto) 0.2, Baso % (Auto) 0.2, Absolute Neuts (auto) 14.4 H, Absolute Lymphs (auto) 1.49, Nucleated RBC % 0 09/02/19 04:50: Sodium 138, Potassium 4.1, Chloride 101, Carbon Dioxide 33.0 H, Anion Gap 4 L, BUN 22 H, Creatinine 0.83, Estim Creat Clear Calc 71.35, Est GFR (MDRD) Af Amer 93, Est GFR (MDRD) Non-Af 77, BUN/Creatinine Ratio 26.6 H, Glucose 282 H, Calcium 8.2 L 09/02/19 04:50: Hemoglobin A1c 10.3 H 09/02/19 04:50: B-Natriuretic Peptide 49.0 09/02/19 06:50: MRSA (PCR) Pending Current Medications Acetaminophen (Tylenol) 650 mg PO Q6H PRN PRN PRN Reason: Pain Score 1-10/10 Albuterol Sulfate (Ventolin Aerosols) 2.5 mg INHALATION Q2H PRN PRN PRN Reason: SOB/Wheezing Atenolol (Tenormin (Beta Asha)) 50 mg PO DAILY [facility] Atorvastatin Calcium (Lipitor) 40 mg PO QHS [facility] Last Admin: 09/02/19 02:06 Dose: Not Given Documented by: Dextrose (D50w Syringe) 0 gm IV X1 PRN; Protocol PRN Reason: Hypoglycemia Enoxaparin Sodium (Lovenox) 40 mg SC DAILY [facility] Furosemide (Lasix) 40 mg PO DAILY [facility] Gabapentin (Neurontin) 300 mg PO TID [facility] Last Admin: 09/02/19 06:06 Dose: Not Given Documented by: Glucagon () 1 mg IM .X1 PRN PRN Reason: Hypoglycemia Pantoprazole Sodium 40 mg/ (Sodium Chloride) 110 mls @ 330 mls/hr IV Q24 [facility] Last Infusion: 09/02/19 00:52 Dose: Infused Documented by: Piperacillin Sod/Tazobactam (Sod 3.375 gm/ Sodium Chloride) 50 mls @ 12.5 mls/hr IV Q8 RU Last Admin: 09/02/19 04:59 Dose: 12.5 mls/hr Documented by: Propofol (Diprivan) 1,000 mg in 100 mls @ 9.198 mls/hr CONT INF .[id number] [facility]; Protocol Last Titration: 09/02/19 05:30 Dose: 0 mcg/kg/min, 0 mls/hr Documented by: Fentanyl () 100 mls @ 5 mls/hr CONT INF UD [facility]; Protocol Last Titration: 09/02/19 06:00 Dose: 0 mcg/hr, 0 mls/hr Documented by: Sodium Chloride () 250 mls @ 15 mls/hr IV .[id number] PRN PRN Reason: Saline Flush Sodium Chloride () 250 mls @ 15 mls/hr IV .[id number] PRN PRN Reason: Additional IVPB Infusion Sodium Chloride () 1,000 mls @ 1 mls/hr IV .Q48H PRN PRN Reason: Saline Flush Insulin Human Lispro (Humalog Kwikpen (Bkc)) 0 unit SC Q6 RU; Protocol Last Admin: 09/02/19 05:09 Dose: 3 u Documented by: Ipratropium [place] (Atrovent) 0.5 mg INHALATION Q6HWA.RT [facility] Last Admin: 09/02/19 07:04 Dose: 0.5 mg Documented by: Non-Formulary Medication (Ertugliflozin Pidolate [Steglatro]) 5 mg PO QAM RU Nystatin (Mycostatin Powder) 1 applic TOPICAL TID [facility]; Protocol Ondansetron HCl (Zofran) 4 mg IV Q8H PRN PRN PRN Reason: NAUSEA Sodium Chloride () 10 - 40 ml IV UD PRN PRN Reason: SALINE FLUSH Venlafaxine HCl (Effexor Xr) 225 mg PO DAILY [facility] Medical Necessity - Tobacco Use Smoking Status: Heavy Smoker (>10/day) Assessment/Plan All Active Problems (Last Updated 12/26/18 @ 12:49 by Zuleyka Rosenberg) Acute appendicitis (Acute) 53-year-old female with acute appendicitis, COPD on 2 L nasal cannula at home., hypertension, diabetes not well controlled 1. Patient is currently in ICU due to hypoxia/COPD. Patient's still intubated and will remain intubated today as she still requires 6% FiO2. 2. Continue Zosyn 3.375 g IV 8 hours for perforated appendicitis 3. Continue sliding insulin scale will change to high protocol. Sabi Flores M.D. Pager: [phone] [facility] [address] [place] [address], [address] [place] [id number] Office: [phone]
--- NOTE | 2019-09-02 08:03 | RAD_ITS ---
STUDY: X-RAY CHEST REASON FOR EXAM: Female, 53 years old. Respiratory failure TECHNIQUE: Frontal view COMPARISON: September 01, 2019. FINDINGS: Nasogastric and endotracheal tubes are stable. The lungs are expanded. Patchy basilar infiltrates bilaterally with interval worsening. Possible left pleural effusion. Cardiomegaly. Normal mediastinum and ravi. Prominence of the central pulmonary arteries. Normal visualized aortic arch and descending thoracic aorta. Normal visualized thoracic spine. Normal visualized ribs, clavicles, and shoulders. There is no demonstrated abnormality of the visualized soft tissue structures of the upper abdomen. RAD/Chest 1 View (Portable) IMPRESSION: Basilar infiltrates bilaterally. Possible left pleural effusion. Cardiomegaly and central pulmonary vascular prominence. Electronically Signed: Laureano Howard DO at 9:03 EDT Tel [phone], Service support ,
--- NOTE | 2019-09-02 08:04 | CPS ---
Pt. placed back on AC/VC settings for ventilator per .
[2019-09-02] MEDS: Nystatin Powder 15gm Bottle 1 APPLIC TOPICAL ×3 (08:37→22:11)
[2019-09-02 08:39] LABS: M R Staph aureus DNA By PCR Negative (Negative); Probe Check PASS; Specimen Processing Control PASS
[2019-09-02] MEDS: Propofol 10MG/Ml 1,000 MG/100 ML Bottle 13.8 MG CONT INF ×2 (09:53→15:19)
[2019-09-02] MEDS: Enoxaparin 40 MG/0.4 ML Syringe SC (09:59)
[2019-09-02] MEDS: Furosemide 40 MG Tablet GT (10:00)
[2019-09-02] MEDS: Gabapentin 300 MG Capsule GT ×2 (14:03→22:11)
[2019-09-02] MEDS: fentaNYL drip 100 ML 5 MCG CONT INF ×3 (15:11→23:37)
[2019-09-02] MEDS: Atenolol 50 MG Tablet GT (16:43)
[2019-09-02 17:03] LABS: Bedside Glucose 266 mg/dL (70-110)
[2019-09-02 17:04] LABS: Bedside Glucose 301 mg/dL (70-110)
[2019-09-02 18:00] LABS: Bedside Glucose 218 mg/dL (70-110)
[2019-09-02] MEDS: Acetaminophen 650 MG/20 ML UDC GT (18:26)
[2019-09-02] MEDS: Propofol 10MG/Ml 1,000 MG/100 ML Bottle 18.4 MG CONT INF (20:26)
[2019-09-02] MEDS: Atorvastatin Calcium 40 MG Tablet GT (22:11)
[2019-09-02 23:46] LABS: Bedside Glucose 224 mg/dL (70-110)
[2019-09-03] VITALS (42 sets, daily range): BP systolic 93–157; BP diastolic 61–95; PULSE 75–115; RESP 12–27; TEMP 37.4–38.7; O2SAT 60–100
[2019-09-03] MEDS: Propofol 10MG/Ml 1,000 MG/100 ML Bottle 18.4 MG CONT INF (02:38)
[2019-09-03 04:45] LABS: Absolute Lymphocyte Count 1.03 X10^3/uL (0.83-4.51); Absolute Neutrophil Count 11.3 X10^3/uL (2.0-7.7); Basophil# 0.04 X10^3/uL; Basophil% 0.3 % (0-1); Eosinophil# 0.11 X10^3/uL; Eosinophils% 0.8 % (0-5); Hematocrit 50.1 % (37-47); Hemoglobin 15.4 g/dL (12.0-15.0); Lymphocyte # 1.03 X10^3/ul (4.0); Lymphocyte % 7.8 % (19-41); Mean Corp Hgb Conc 30.7 g/dL (32-36); Mean Corpuscular Hgb 28.3 pg (27.0-32.0); Mean Corpuscular Volume 92.1 fL (81-99); Mean Platelet Vol. 10.1 fl (6.2-12.0); Monocyte# 0.73 X10^3/uL; Monocyte% 5.5 % (0-10); NRBC Flagged by Analyzer 0 % (0-5); Neutrophil # 11.27 X10^3/uL (2.7-7.7); Neutrophil % 84.8 % (47-70); Platelet Count 199 K/mm3 (150-450); RBC Distribution Width CV 14.7 % (11.6-14.6); RBC Distribution Width SD 49.7 fl (35.1-43.9); Red Blood Count 5.44 M/mm3 (4.2-5.4); White Blood Count 13.3 K/mm3 (4.4-11.0)
[2019-09-03 04:52] LABS: Anion Gap 4 (5-15); BUN 17 mg/dL (7-18); BUN/Creat Ratio 26.9 RATIO (10-20); Calcium,Total 8.4 mg/dL (8.5-10.1); Chloride 102 mmol/L (98-107); Creatinine, Serum 0.63 mg/dL (0.55-1.02); EST Glomerular Filtration Rate 105 mL/min (>60); Est Glom Filt Rate - Afr Amer 127 mL/min (>60); Estimated Creatinine Clearance 93.99 ml/min; Glucose 226 mg/dL (74-106); Magnesium 1.4 mg/dL (1.6-2.6); Phosphorus 2.1 mg/dL (2.5-4.9); Potassium 3.4 mmol/L (3.5-5.1); Sodium Level 138 mmol/L (136-145)
[2019-09-03] MEDS: Insulin Lispro 100 UNIT/ML INSULN.PEN SC ×4 (05:21→21:16)
[2019-09-03] MEDS: Nystatin Powder 15gm Bottle 1 APPLIC TOPICAL ×3 (05:21→21:15)
[2019-09-03] MEDS: Gabapentin 300 MG Capsule GT ×2 (05:22→14:38)
--- NOTE | 2019-09-03 06:43 | CPS ---
Patient extubated and placed immediately on AVAPS per Dr Ray.
--- NOTE | 2019-09-03 06:49 | PCM.PN.INT ---
Subjective: Patient did okay overnight. Patient was febrile, but remained hemodynamically stable. Patient did have a spontaneous breathing trial this morning and was able to tolerate an hour. ABG showed marginal oxygenation and ventilation. Discussed with the patient she states that she is on a CPAP of 11 for obstructive sleep apnea. Sleep lab did not report patient has had any studies here, but PCP is at the [facility]. Patient did agree to be extubated to AVAPS, so proceeded with extubation. Patient did have moderate to large secretions reported by respiratory. Patient reported that she does have a productive cough on a daily basis. General: Alert, Oriented x3, Cooperative, No apparent distress, Well developed, Well nourished, - - Morbidly obese. Good ventilator synchrony initially. Tolerated extubation. HEENT: Atraumatic, PERRLA, EOMI, Normocephalic, - - Slight scleral injection. Oral: Moist Mucosa, No Gingival or Mucosal Lesions/ Ulcerations Neck: Supple, No JVD, No Nodes, Trachea Midline, - - Difficult to assess JVD secondary to body habitus. Large neck noted. Lungs: No rhonchi, No wheeze, No rales, Diminished, - - Symmetric expansion. No dullness to percussion. Cardiovascular: Regular rate, Regular Rhythm, Normal S1, Normal S2, No murmurs, No rub noted, No Gallop Abdomen: Bowel Sounds Present, Soft, Non Tender, Non-Distended, Obese Extremities: No clubbing, No cyanosis, Edema Skin: Incision - Clean, dry and intact Musculoskeletal: No Tenderness to Palpation of Joints or Extremities Lymphatic: No Cervical, Supraclavicular, or Inguinal Adenopathy Neurological: Cranial nerves II-XII grossly intact, Neuro grossly intact, Motor Exam 5/5 strength throughout Psych/Mental Status: Alert and oriented to time, place, person, mood and affect Vital Signs Temp Pulse Resp BP Pulse Ox 38.7 C H 115 H 27 H 157/89 H 90 09/03/19 05:00 09/03/19 05:00 09/03/19 05:00 09/03/19 05:00 09/03/19 05:00 Oxygen Flow Rate (L/min) 4 Oxygen Delivery Method Mechanical Ventilator Weight: 155.6 kg Body Mass Index (BMI) 56.2 Finger Stick Blood Glucose 242 Intake and Output for Last 24 Hours 09/01/19 09/02/1920 23:59 23:59 23:59 Intake Total 2978.60 / 2998.92 149.84 / 149.84 Output Total 210 / 235 1465 / 1520 280 / 280 Balance -210 / -235 1513.60 / 1478.92 -130.16 / -130.16 Labs (Last 48 Hours) 09/01/19 09/01/19 09/01/19 17:13 17:13 17:13 WBC 13.7 H RBC 6.11 H Hgb 17.8 H Hct 55.0 H MCV 90.0 MCH 29.1 MCHC 32.4 RDW Std Deviation 46.8 H RDW Coeff of Ramy 14.3 Plt Count 227 MPV 10.2 Immature Gran % (Auto) 0.500 Neut % (Auto) 78.0 H Lymph % (Auto) 13.2 L [place] % (Auto) 6.2 Eos % (Auto) 1.7 Baso % (Auto) 0.4 Absolute Neuts (auto) 10.7 H Absolute Lymphs (auto) 1.82 Nucleated RBC % 0 Specimen Type Sample Site pH Bicarbonate Actual POC Total CO2 Base Excess O2 Saturation O2 % ABG pCO2 ABG pO2 Graeme Test Respiration Rate O2 Delivery Device Vent Mode Tidal Volume POC PEEP Blood Gas Notified Whom Blood Gas Notified Time Sodium 137 Potassium 4.0 Chloride 99 Carbon Dioxide 35.0 H Anion Gap 3 L BUN 16 Creatinine 0.56 Estim Creat Clear Calc 105.74 Est GFR (MDRD) Af Amer 147 Est GFR (MDRD) Non-Af 122 BUN/Creatinine Ratio 28.8 H Glucose 242 H Hemoglobin A1c Calcium 9.3 Phosphorus Magnesium Total Bilirubin 0.50 AST 17 ALT 25 Alkaline Phosphatase 107 Total Creatine Kinase 69 B-Natriuretic Peptide Total Protein 7.7 Albumin 3.0 L Globulin 4.7 H Albumin/Globulin Ratio 0.6 L Triglycerides 235 H Lipase 95 Urine Color Urine Clarity Urine pH Ur Specific [place] Urine Protein Urine Glucose (UA) Urine Ketones Urine Occult Blood Urine Nitrite Urine Bilirubin Urine Urobilinogen Ur Leukocyte Esterase Urine RBC Urine WBC Ur Squamous Epith Cells Urine Bacteria Urine Mucus MRSA (PCR) POC Glucose 09/01/19 09/01/19 09/01/19 19:30 20:41 22:09 WBC RBC Hgb Hct MCV MCH MCHC RDW Std Deviation RDW Coeff of Ramy Plt Count MPV Immature Gran % (Auto) Neut % (Auto) Lymph % (Auto) [place] % (Auto) Eos % (Auto) Baso % (Auto) Absolute Neuts (auto) Absolute Lymphs (auto) Nucleated RBC % Specimen Type ETNA Sample Site pH 7.30 L Bicarbonate Actual 36.3 H POC Total CO2 38 Base Excess 10 H O2 Saturation 99 O2 % 100 ABG pCO2 74.0 H* ABG pO2 166 H Graeme Test Respiration Rate O2 Delivery Device Vent Vent Mode A-C Tidal Volume 430 POC PEEP 4 Blood Gas Notified Whom RN Blood Gas Notified Time 2151 Sodium Potassium Chloride Carbon Dioxide Anion Gap BUN Creatinine Estim Creat Clear Calc Est GFR (MDRD) Af Amer Est GFR (MDRD) Non-Af BUN/Creatinine Ratio Glucose Hemoglobin A1c Calcium Phosphorus Magnesium Total Bilirubin AST ALT Alkaline Phosphatase Total Creatine Kinase B-Natriuretic Peptide Total Protein Albumin Globulin Albumin/Globulin Ratio Triglycerides Lipase Urine Color Yellow Urine Clarity Sl. Cloudy Urine pH 5.0 Ur Specific [place] 1.020 Urine Protein 100 H Urine Glucose (UA) Normal Urine Ketones Negative Urine Occult Blood 50 H Urine Nitrite Negative Urine Bilirubin Negative Urine Urobilinogen Normal Ur Leukocyte Esterase Negative Urine RBC 0-5 SEEN Urine WBC 0 SEEN Ur Squamous Epith Cells 5-10 SEEN Urine Bacteria 0 SEEN Urine Mucus 0 SEEN MRSA (PCR) POC Glucose 242 H 09/02/19 09/02/19 09/02/19 00:08 01:18 04:50 WBC 17.2 H RBC 5.38 Hgb 15.5 H Hct 49.7 H MCV 92.4 MCH 28.8 MCHC 31.2 L RDW Std Deviation 49.6 H RDW Coeff of Ramy 14.8 H Plt Count 202 MPV 9.7 Immature Gran % (Auto) 0.500 Neut % (Auto) 84.2 H Lymph % (Auto) 8.7 L [place] % (Auto) 6.2 Eos % (Auto) 0.2 Baso % (Auto) 0.2 Absolute Neuts (auto) 14.4 H Absolute Lymphs (auto) 1.49 Nucleated RBC % 0 Specimen Type ETNA Sample Site ART LINE pH 7.28 L Bicarbonate Actual 33.0 H POC Total CO2 35 Base Excess 6 H O2 Saturation 94 L O2 % 60 ABG pCO2 69.8 H* ABG pO2 81 Graeme Test NA Respiration Rate 14 O2 Delivery Device Vent Vent Mode A-C Tidal Volume 450 POC PEEP 8 Blood Gas Notified Whom ICU MD Blood Gas Notified Time 115 Sodium Potassium Chloride Carbon Dioxide Anion Gap BUN Creatinine Estim Creat Clear Calc Est GFR (MDRD) Af Amer Est GFR (MDRD) Non-Af BUN/Creatinine Ratio Glucose Hemoglobin A1c Calcium Phosphorus Magnesium Total Bilirubin AST ALT Alkaline Phosphatase Total Creatine Kinase B-Natriuretic Peptide Total Protein Albumin Globulin Albumin/Globulin Ratio Triglycerides Lipase Urine Color Urine Clarity Urine pH Ur Specific [place] Urine Protein Urine Glucose (UA) Urine Ketones Urine Occult Blood Urine Nitrite Urine Bilirubin Urine Urobilinogen Ur Leukocyte Esterase Urine RBC Urine WBC Ur Squamous Epith Cells Urine Bacteria Urine Mucus MRSA (PCR) POC Glucose 281 H 09/02/19 09/02/19 09/02/19 04:50 04:50 04:50 WBC RBC Hgb Hct MCV MCH MCHC RDW Std Deviation RDW Coeff of Ramy Plt Count MPV Immature Gran % (Auto) Neut % (Auto) Lymph % (Auto) [place] % (Auto) Eos % (Auto) Baso % (Auto) Absolute Neuts (auto) Absolute Lymphs (auto) Nucleated RBC % Specimen Type Sample Site pH Bicarbonate Actual POC Total CO2 Base Excess O2 Saturation O2 % ABG pCO2 ABG pO2 Graeme Test Respiration Rate O2 Delivery Device Vent Mode Tidal Volume POC PEEP Blood Gas Notified Whom Blood Gas Notified Time Sodium 138 Potassium 4.1 Chloride 101 Carbon Dioxide 33.0 H Anion Gap 4 L BUN 22 H Creatinine 0.83 Estim Creat Clear Calc 71.35 Est GFR (MDRD) Af Amer 93 Est GFR (MDRD) Non-Af 77 BUN/Creatinine Ratio 26.6 H Glucose 282 H Hemoglobin A1c 10.3 H Calcium 8.2 L Phosphorus Magnesium Total Bilirubin AST ALT Alkaline Phosphatase Total Creatine Kinase B-Natriuretic Peptide 49.0 Total Protein Albumin Globulin Albumin/Globulin Ratio Triglycerides Lipase Urine Color Urine Clarity Urine pH Ur Specific [place] Urine Protein Urine Glucose (UA) Urine Ketones Urine Occult Blood Urine Nitrite Urine Bilirubin Urine Urobilinogen Ur Leukocyte Esterase Urine RBC Urine WBC Ur Squamous Epith Cells Urine Bacteria Urine Mucus MRSA (PCR) POC Glucose 09/02/19 09/02/19 09/02/19 05:08 06:50 12:39 WBC RBC Hgb Hct MCV MCH MCHC RDW Std Deviation RDW Coeff of Ramy Plt Count MPV Immature Gran % (Auto) Neut % (Auto) Lymph % (Auto) [place] % (Auto) Eos % (Auto) Baso % (Auto) Absolute Neuts (auto) Absolute Lymphs (auto) Nucleated RBC % Specimen Type Sample Site pH Bicarbonate Actual POC Total CO2 Base Excess O2 Saturation O2 % ABG pCO2 ABG pO2 Graeme Test Respiration Rate O2 Delivery Device Vent Mode Tidal Volume POC PEEP Blood Gas Notified Whom Blood Gas Notified Time Sodium Potassium Chloride Carbon Dioxide Anion Gap BUN Creatinine Estim Creat Clear Calc Est GFR (MDRD) Af Amer Est GFR (MDRD) Non-Af BUN/Creatinine Ratio Glucose Hemoglobin A1c Calcium Phosphorus Magnesium Total Bilirubin AST ALT Alkaline Phosphatase Total Creatine Kinase B-Natriuretic Peptide Total Protein Albumin Globulin Albumin/Globulin Ratio Triglycerides Lipase Urine Color Urine Clarity Urine pH Ur Specific [place] Urine Protein Urine Glucose (UA) Urine Ketones Urine Occult Blood Urine Nitrite Urine Bilirubin Urine Urobilinogen Ur Leukocyte Esterase Urine RBC Urine WBC Ur Squamous Epith Cells Urine Bacteria Urine Mucus MRSA (PCR) Negative POC Glucose 266 H 301 H 09/02/19 09/02/19 09/03/19 17:57 23:32 04:30 WBC 13.3 H RBC 5.44 H Hgb 15.4 H Hct 50.1 H MCV 92.1 MCH 28.3 MCHC 30.7 L RDW Std Deviation 49.7 H RDW Coeff of Ramy 14.7 H Plt Count 199 MPV 10.1 Immature Gran % (Auto) 0.800 Neut % (Auto) 84.8 H Lymph % (Auto) 7.8 L [place] % (Auto) 5.5 Eos % (Auto) 0.8 Baso % (Auto) 0.3 Absolute Neuts (auto) 11.3 H Absolute Lymphs (auto) 1.03 Nucleated RBC % 0 Specimen Type Sample Site pH Bicarbonate Actual POC Total CO2 Base Excess O2 Saturation O2 % ABG pCO2 ABG pO2 Graeme Test Respiration Rate O2 Delivery Device Vent Mode Tidal Volume POC PEEP Blood Gas Notified Whom Blood Gas Notified Time Sodium Potassium Chloride Carbon Dioxide Anion Gap BUN Creatinine Estim Creat Clear Calc Est GFR (MDRD) Af Amer Est GFR (MDRD) Non-Af BUN/Creatinine Ratio Glucose Hemoglobin A1c Calcium Phosphorus Magnesium Total Bilirubin AST ALT Alkaline Phosphatase Total Creatine Kinase B-Natriuretic Peptide Total Protein Albumin Globulin Albumin/Globulin Ratio Triglycerides Lipase Urine Color Urine Clarity Urine pH Ur Specific [place] Urine Protein Urine Glucose (UA) Urine Ketones Urine Occult Blood Urine Nitrite Urine Bilirubin Urine Urobilinogen Ur Leukocyte Esterase Urine RBC Urine WBC Ur Squamous Epith Cells Urine Bacteria Urine Mucus MRSA (PCR) POC Glucose 218 H 224 H 09/03/19 04:30 WBC RBC Hgb Hct MCV MCH MCHC RDW Std Deviation RDW Coeff of Ramy Plt Count MPV Immature Gran % (Auto) Neut % (Auto) Lymph % (Auto) [place] % (Auto) Eos % (Auto) Baso % (Auto) Absolute Neuts (auto) Absolute Lymphs (auto) Nucleated RBC % Specimen Type Sample Site pH Bicarbonate Actual POC Total CO2 Base Excess O2 Saturation O2 % ABG pCO2 ABG pO2 Graeme Test Respiration Rate O2 Delivery Device Vent Mode Tidal Volume POC PEEP Blood Gas Notified Whom Blood Gas Notified Time Sodium 138 Potassium 3.4 L Chloride 102 Carbon Dioxide 32.0 Anion Gap 4 L BUN 17 Creatinine 0.63 Estim Creat Clear Calc 93.99 Est GFR (MDRD) Af Amer 127 Est GFR (MDRD) Non-Af 105 BUN/Creatinine Ratio 26.9 H Glucose 226 H Hemoglobin A1c Calcium 8.4 L Phosphorus 2.1 L Magnesium 1.4 L Total Bilirubin AST ALT Alkaline Phosphatase Total Creatine Kinase B-Natriuretic Peptide Total Protein Albumin Globulin Albumin/Globulin Ratio Triglycerides Lipase Urine Color Urine Clarity Urine pH Ur Specific [place] Urine Protein Urine Glucose (UA) Urine Ketones Urine Occult Blood Urine Nitrite Urine Bilirubin Urine Urobilinogen Ur Leukocyte Esterase Urine RBC Urine WBC Ur Squamous Epith Cells Urine Bacteria Urine Mucus MRSA (PCR) POC Glucose Microbiology 09/01/19 Unknown Abs - Abdominal Gram Stain - Preliminary 09/01/19 Unknown Abs - Abdominal Wound Culture - Preliminary Gram negative kerry Clinical Impression(s) from Imaging Studies Chest X-Ray 09/02/19 08:03 IMPRESSION: Basilar infiltrates bilaterally. Possible left pleural effusion. Cardiomegaly and central pulmonary vascular prominence. Electronically Signed: Laureano Howard DO at 9:03 EDT Tel [phone], Service support , Medical Necessity - Tobacco Use Smoking Status: Heavy Smoker (>10/day) Assessment/Plan All Active Problems (Last Updated 12/26/18 @ 12:49 by Zuleyka Rosenberg) Acute appendicitis (Acute) RECOMMENDATIONS: 1. Extubate to AVAPS with targeted tidal volume. 2. BiPAP breaks as tolerated. Bedside swallow evaluation when able to tolerate 3. Continue to wean FiO2 as tolerated. 4. Continue scheduled bronchodilator therapy. 5. Continue sliding scale insulin coverage. 6. Continue appropriate ICU prophylaxis. IMPRESSIONS: 1. Acute on chronic combined respiratory failure Patient able to pass a spontaneous breathing trial this morning. Patient did undergo an appendectomy and was unable to be extubated yesterday. Patient did have moderate to large secretions reported, but these did not appear to be purulent. ABG at the end of the trial showed marginal oxygenation and ventilation, but patient appeared to be comfortable. Clinical suspicion for predominantly chronic CO2 retention and hypoxia from hypoventilation. Patient will be extubated to AVAPS. Bedside swallow evaluation and trial off of AVAPS as the day proceeds. Patient would likely benefit from assisted ventilation at home given laboratory findings. 2. Acute appendicitis, now POD#2 s/p laparoscopic appendectomy Continue routine postoperative care, including IV antibiotics. Leukocytosis improving. Defer to surgery on pain control 3. COPD of unknown severity/obstructive sleep apnea/continuous tobacco dependency The patient is currently followed through the [facility] system for her underlying obstructive lung disease and sleep apnea. She apparently has a 2 L/min baseline oxygen requirement and continues to smoke cigarettes daily. The exact severity of her underlying lung disease is unknown. However, at the current time, we will plan to continue current supportive measures, including bronchodilator therapy. FiO2 will be weaned as tolerated. 4. Super morbid obesity/hypertension/diabetes mellitus/hyperlipidemia Complicates care, management, recovery and prognosis. Continue sliding scale insulin coverage. TIME: 35 minutes of critical care time, independent of procedures, was spent addressing the patient's acute on chronic combined respiratory failure, acute appendicitis status post laparoscopic appendectomy, COPD, obstructive sleep apnea, super morbid obesity, review of all data and collaboration with the care team. (5:30 AM to 6:30 AM) [id number] Critical care first hour
--- NOTE | 2019-09-03 06:56 | PCM.PN.SRG ---
Patient Problems: Active and Suspected Problems (Last Updated 12/26/18 @ 12:49 by Zuleyka Rosenberg) Acute appendicitis (Acute) Subjective: Patient extubated this morning on CPAP, patient denies abdominal pain - Physical Exam Vitals/I&O's: Vital Signs Temp Pulse Resp BP Pulse Ox 101.6 F H 115 H 27 H 157/89 H 90 09/03/19 05:00 09/03/19 05:00 09/03/19 05:00 09/03/19 05:00 09/03/19 05:00 Oxygen Flow Rate (L/min) 4 Oxygen Delivery Method Mechanical Ventilator Weight: 335 lb 12.224 oz Body Mass Index (BMI) 56.2 Finger Stick Blood Glucose 242 Intake and Output for Last 24 Hours 09/01/19 09/02/19 09/03/19 23:59 23:59 23:59 Intake Total 2978.60 / 2998.92 149.84 / 149.84 Output Total 210 / 235 1465 / 1520 280 / 280 Balance -210 / -235 1513.60 / 1478.92 -130.16 / -130.16 General: Alert, Oriented x3, Cooperative, No apparent distress HEENT: Atraumatic Cardiovascular: Regular rate Abdomen: Soft, Non-Distended, Obese, Tender - Mild near incisions clean dry and intact with op sites, no peritoneal signs Extremities: - - Venous stasis changes bilaterally Microbiology Past 72 Hours 09/01/19 Unknown Abs - Abdominal Gram Stain - Preliminary 09/01/19 Unknown Abs - Abdominal Wound Culture - Preliminary Gram negative keryr Laboratory Results 09/02/19 04:50: Hemoglobin A1c 10.3 H 09/02/19 04:50: B-Natriuretic Peptide 49.0 09/02/19 05:08: POC Glucose 266 H 09/02/19 06:50: MRSA (PCR) Negative 09/02/19 12:39: POC Glucose 301 H 09/02/19 17:57: POC Glucose 218 H 09/02/19 23:32: POC Glucose 224 H 09/03/19 04:30: WBC 13.3 H, RBC 5.44 H, Hgb 15.4 H, Hct 50.1 H, MCV 92.1, MCH 28.3, MCHC 30.7 L, RDW Std Deviation 49.7 H, RDW Coeff of Ramy 14.7 H, Plt Count 199, MPV 10.1, Immature Gran % (Auto) 0.800, Neut % (Auto) 84.8 H, Lymph % (Auto) 7.8 L, [place] % (Auto) 5.5, Eos % (Auto) 0.8, Baso % (Auto) 0.3, Absolute Neuts (auto) 11.3 H, Absolute Lymphs (auto) 1.03, Nucleated RBC % 0 09/03/19 04:30: Sodium 138, Potassium 3.4 L, Chloride 102, Carbon Dioxide 32.0, Anion Gap 4 L, BUN 17, Creatinine 0.63, Estim Creat Clear Calc 93.99, Est GFR (MDRD) Af Amer 127, Est GFR (MDRD) Non-Af 105, BUN/Creatinine Ratio 26.9 H, Glucose 226 H, Calcium 8.4 L, Phosphorus 2.1 L, Magnesium 1.4 L Current Medications Acetaminophen (Tylenol Liquid) 650 mg GT Q6H PRN PRN PRN Reason: Pain or Fever Last Admin: 09/02/19 18:26 Dose: 650 mg Documented by: Albuterol Sulfate (Ventolin Aerosols) 2.5 mg INHALATION Q2H PRN PRN PRN Reason: SOB/Wheezing Atenolol (Tenormin (Beta Asha)) 50 mg GT DAILY [facility] Last Admin: 09/02/19 16:43 Dose: 50 mg Documented by: Atorvastatin Calcium (Lipitor) 40 mg GT QHS [facility] Last Admin: 09/02/19 22:11 Dose: 40 mg Documented by: Chlorhexidine Gluconate () 15 ml PO BID [facility] Chlorhexidine Gluconate () 1 each TOPICAL DAILY [facility] Dextrose (D50w Syringe) 0 gm IV X1 PRN; Protocol PRN Reason: Hypoglycemia Enoxaparin Sodium (Lovenox) 40 mg SC DAILY [facility] Last Admin: 09/02/19 09:59 Dose: 40 mg Documented by: Furosemide (Lasix) 40 mg GT DAILY [facility] Last Admin: 09/02/19 10:00 Dose: 40 mg Documented by: Gabapentin (Neurontin) 300 mg GT TID [facility] Last Admin: 09/03/19 05:22 Dose: 300 mg Documented by: Glucagon () 1 mg IM .X1 PRN PRN Reason: Hypoglycemia Pantoprazole Sodium 40 mg/ (Sodium Chloride) 110 mls @ 330 mls/hr IV Q24 [facility] Last Infusion: 09/02/19 10:39 Dose: Infused Documented by: Piperacillin Sod/Tazobactam (Sod 3.375 gm/ Sodium Chloride) 50 mls @ 12.5 mls/hr IV Q8 [facility] Last Admin: 09/03/19 05:01 Dose: 12.5 mls/hr Documented by: Propofol (Diprivan) 1,000 mg in 100 mls @ 9.198 mls/hr CONT INF .[id number] [facility]; Protocol Last Titration: 09/03/19 05:00 Dose: 0 mcg/kg/min, 0 mls/hr Documented by: Fentanyl () 100 mls @ 5 mls/hr CONT INF UD [facility]; Protocol Last Titration: 09/03/19 05:00 Dose: 0 mcg/hr, 0 mls/hr Documented by: Sodium Chloride () 250 mls @ 15 mls/hr IV .[id number] PRN PRN Reason: Saline Flush Last Infusion: 09/02/19 18:15 Dose: 15 mls/hr Documented by: Sodium Chloride () 250 mls @ 15 mls/hr IV .[id number] PRN PRN Reason: Additional IVPB Infusion Sodium Chloride () 1,000 mls @ 1 mls/hr IV .Q48H PRN PRN Reason: Saline Flush Magnesium Sulfate () 4 gm in 100 mls @ 25 mls/hr IV X1 ONE Stop: 09/03/19 09:37 Potassium Phosphate 30 mm/ (Sodium Chloride) 260 mls @ 42 mls/hr IV X1 ONE Stop: 09/03/19 11:49 Insulin Human Lispro (Humalog Kwikpen (Bkc)) 0 unit SC Q6 [facility]; Protocol Last Admin: 09/03/19 05:21 Dose: 6 u Documented by: Ipratropium [place] (Atrovent) 0.5 mg INHALATION Q6HWA.RT [facility] Last Admin: 09/02/19 18:47 Dose: 0.5 mg Documented by: Non-Formulary Medication (Ertugliflozin Pidolate [Steglatro]) 5 mg PO QAM RU Nystatin (Mycostatin Powder) 1 applic TOPICAL TID [facility]; Protocol Last Admin: 09/03/19 05:21 Dose: 1 applicatio Documented by: Ondansetron HCl (Zofran) 4 mg IV Q8H PRN PRN PRN Reason: NAUSEA Sodium Chloride () 10 - 40 ml IV UD PRN PRN Reason: SALINE FLUSH Venlafaxine HCl (Effexor Xr) 225 mg PO DAILY [facility] Last Admin: 09/02/19 09:46 Dose: Not Given Documented by: Medical Necessity - Tobacco Use Smoking Status: Heavy Smoker (>10/day) Assessment/Plan All Active Problems (Last Updated 12/26/18 @ 12:49 by Zuleyka Rosenberg) Acute appendicitis (Acute) 53-year-old female with acute appendicitis that is post laparoscopic appendectomy postop day 2, COPD on 2 L nasal cannula at home., hypertension, diabetes not well controlled 1. She was extubated this morning, patient is able to be stable from a pulmonary standpoint okay to advance diet and possibly DC. 2. Continue Zosyn 3.375 g IV 8 hours for perforated appendicitis 3. Continue sliding insulin scale will change to high protocol. Blood sugar still in the low 200s. Sabi Flores M.D. Pager: [phone] [facility] [address] [place] [address], [address] [place] [address] Office: [phone] Addendum: Patient still on high flow oxygen, diet has been advanced we will continue to monitor once oxygen requirements are able to be decreased we will look at possible DC home.
[2019-09-03] MEDS: Ipratropium 0.5 MG/2.5 ML SOLUTION INHALATION (07:22)
[2019-09-03] MEDS: Magnesium Sulfate 4gm/100mL 4 GM/100 ML IV.SOLN. IV (07:35)
[2019-09-03 08:06] LABS: Bedside Glucose 248 mg/dL (70-110)
[2019-09-03 08:06] LABS: Base Excess 8 mmol/L (-2 to +2); Bicarbonate 31.9 mmol/L (22-26); PO2 60 mmHG (75-100); SO2 91 % (95-99); Total Carbon Dioxide 33 mmol/L; pCO2 48.2 mmHg (35-45); pH 7.43 (7.35-7.45)
[2019-09-03 08:16] LABS: Blood Gas Specimen Type ALINE; FI02 45; Mode CPAP/PS; O2 Delivery Device Vent; PEEP 5; PS 5
--- NOTE | 2019-09-03 09:30 | CPS ---
Patient taken off AVAPS by RN. Placed on nasal cannula at 4lpm. Patient required more O2 and increased to 10lpm high flow nasal cannula to maintain sats in the 90's.. Dr Ray ordered Airvo.
--- NOTE | 2019-09-03 09:30 | CPS ---
Addendum entered by Leila Cherry 09/03/19 11:17: Original Note: Patient taken off AVAPS and placed on 4lpm nasal cannula and increased to 6lpm. RN in room. At 0941 patient was 88% on 6lpm NC. Sats maintaining in high 80's, patient placed on High Flow Nasal Cannula at 8 lpm and increased to 10lpm. At 0948 patient's sats at 90% on 10lpm. Dr. Ray made aware. Dr Ray gave order for Airvo (Heated High Flow Therapy).
[2019-09-03] MEDS: Enoxaparin 40 MG/0.4 ML Syringe SC (09:31)
--- NOTE | 2019-09-03 09:48 | CPS ---
10lpm high flow nasal cannula.
--- NOTE | 2019-09-03 10:30 | CPS ---
Patient started on Airvo at 40lpm, 31 degrees and 42 % FiO2. RN in room. Patient tolerating well.
[2019-09-03 12:40] LABS: Bedside Glucose 244 mg/dL (70-110)
[2019-09-03] MEDS: Ipratropium/Albuterol Sulfate 3 ML AMPUL.NEB INHALATION ×2 (13:21→18:30)
[2019-09-03] MEDS: oxyCODONE 5 MG Tablet PO ×3 (14:37→22:57)
[2019-09-03] MEDS: Empagliflozin 10 MG Tablet PO (14:38)
[2019-09-03] MEDS: Venlafaxine XR 75 MG Capsule 225 MG PO (14:38)
[2019-09-03] MEDS: Furosemide 40 MG Tablet GT (14:39)
[2019-09-03] MEDS: Atenolol 50 MG Tablet GT (14:39)
--- NOTE | 2019-09-03 14:48 | CASEMGMT ---
RN ANURADHA Face to Face with patient for initial transition planning/care coordination assessment. RN CM introduced self and role at [facility]. Patient sitting in chair, alert and oriented. Patient willing to participate in assessment and is able to answer all questions appropriately. Care providers, pharmacy, and demographics verified. Patient wishes to discharge home, denies need for home health at this time. Patient states she has no further needs or concerns at this time. CM to follow for discharge planning needs that may arise. PCP: Perez Specialists: None Preferred Pharmacy: [facility] [place] Insurance: [facility] Prescription Benefit: yes Living Will/HPOA: none LNOK: Living Arrangements: Patient lives with in 2 story home with bed and bath on the main level of home. Patient states she is independent at home. Transportation: daughter/ DME/HHC: Patient states [facility]. Disposition Plan: Patient to discharge home with family support and follow-up plans in place. Will monitor for increased oxygen needs. Ava CAZARES, RN, CM
[2019-09-03 16:36] LABS: Bedside Glucose 252 mg/dL (70-110)
[2019-09-03] MEDS: Atorvastatin Calcium 40 MG Tablet PO (21:15)
[2019-09-03] MEDS: Gabapentin 300 MG Capsule PO (21:15)
[2019-09-03 21:21] LABS: Bedside Glucose 193 mg/dL (70-110)
[2019-09-04] VITALS (27 sets, daily range): BP systolic 92–137; BP diastolic 44–82; PULSE 73–86; RESP 13–22; TEMP 36.1–37.3; O2SAT 91–98
[2019-09-04] MEDS: Acetaminophen 500 MG Tablet 1000 MG PO (03:35)
[2019-09-04 03:59] LABS: Anion Gap 3 (5-15); BUN 13 mg/dL (7-18); Calcium,Total 8.6 mg/dL (8.5-10.1); Chloride 101 mmol/L (98-107); Creatinine, Serum 0.52 mg/dL (0.55-1.02); EST Glomerular Filtration Rate 131 mL/min (>60); Est Glom Filt Rate - Afr Amer 159 mL/min (>60); Estimated Creatinine Clearance 113.88 ml/min; Glucose 179 mg/dL (74-106); Magnesium 2.2 mg/dL (1.6-2.6); Phosphorus 2.5 mg/dL (2.5-4.9); Potassium 3.6 mmol/L (3.5-5.1); Sodium Level 139 mmol/L (136-145)
[2019-09-04] MEDS: Nystatin Powder 15gm Bottle 1 APPLIC TOPICAL ×3 (05:17→21:59)
[2019-09-04] MEDS: Gabapentin 300 MG Capsule PO ×3 (05:18→22:01)
[2019-09-04] MEDS: 0.9% Saline Lock 10 ML Syringe IV ×2 (05:23→14:01)
[2019-09-04] MEDS: Ipratropium/Albuterol Sulfate 3 ML AMPUL.NEB INHALATION ×3 (06:28→18:53)
--- NOTE | 2019-09-04 06:53 | PN_ITS ---
Subjective: Patient did okay overnight. Patient did have some mild fever, but remained hemodynamically stable. Patient has required high flow nasal cannula versus AVAPS to maintain saturations. Patient continues to ask to go to home and states the pain is relatively controlled. Patient does use 2 L nasal cannula at baseline. General: Alert, Oriented x3, Cooperative, No apparent distress, Well developed, Well nourished, - - Morbidly obese. Speaking in full sentences. HEENT: Atraumatic, PERRLA, EOMI, Normocephalic, - - Disconjugate gaze. Oral: Moist Mucosa, No Gingival or Mucosal Lesions/ Ulcerations Neck: Supple, No Nodes, Trachea Midline, - - Difficult to assess JVD secondary to body habitus Lungs: No rhonchi, No wheeze, No rales, Diminished Cardiovascular: Regular rate, Regular Rhythm, Normal S1, Normal S2, No murmurs, No rub noted, No Gallop Abdomen: Bowel Sounds Present, Soft, Non Tender, Non-Distended, Obese Extremities: No clubbing, No cyanosis, Edema Skin: - - No significant change compared to previous Musculoskeletal: No Tenderness to Palpation of Joints or Extremities Lymphatic: No Cervical, Supraclavicular, or Inguinal Adenopathy Neurological: Cranial nerves II-XII grossly intact, Neuro grossly intact, Motor Exam 5/5 strength throughout Psych/Mental Status: Alert and oriented to time, place, person, mood and affect Vital Signs Temp Pulse Resp BP Pulse Ox 36.9 C 82 19 H 113/77 94 09/04/19 05:00 09/04/19 06:00 09/04/19 06:00 09/04/19 06:00 09/04/19 06:00 Oxygen Flow Rate (L/min) 10 Oxygen Delivery Method CPAP Weight: 151.6 kg Body Mass Index (BMI) 56.2 Finger Stick Blood Glucose 242 Intake and Output for Last 24 Hours 09/02/19 09/03/19 09/04/19 23:59 23:59 23:59 Intake Total 2978.60 / 2998.92 2579.34 / 2579.34 650 / 650 Output Total 1465 / 1520 3560 / 3560 825 / 825 Balance 1513.60 / 1478.92 -980.66 / -980.66 -175 / -175 Labs (Last 48 Hours) 09/02/19 09/02/19 09/02/19 04:50 04:50 05:08 WBC RBC Hgb Hct MCV MCH MCHC RDW Std Deviation RDW Coeff of Ramy Plt Count MPV Immature Gran % (Auto) Neut % (Auto) Lymph % (Auto) [place] % (Auto) Eos % (Auto) Baso % (Auto) Absolute Neuts (auto) Absolute Lymphs (auto) Nucleated RBC % Specimen Type pH Bicarbonate Actual POC Total CO2 Base Excess O2 Saturation O2 % ABG pCO2 ABG pO2 O2 Delivery Device Vent Mode POC PEEP POC Pressure Suppt Blood Gas Notified Whom Sodium Potassium Chloride Carbon Dioxide Anion Gap BUN Creatinine Estim Creat Clear Calc Est GFR (MDRD) Af Amer Est GFR (MDRD) Non-Af BUN/Creatinine Ratio Glucose Hemoglobin A1c 10.3 H Calcium Phosphorus Magnesium B-Natriuretic Peptide 49.0 MRSA (PCR) POC Glucose 266 H 09/02/19 09/02/19 09/02/19 06:50 12:39 17:57 WBC RBC Hgb Hct MCV MCH MCHC RDW Std Deviation RDW Coeff of Ramy Plt Count MPV Immature Gran % (Auto) Neut % (Auto) Lymph % (Auto) [place] % (Auto) Eos % (Auto) Baso % (Auto) Absolute Neuts (auto) Absolute Lymphs (auto) Nucleated RBC % Specimen Type pH Bicarbonate Actual POC Total CO2 Base Excess O2 Saturation O2 % ABG pCO2 ABG pO2 O2 Delivery Device Vent Mode POC PEEP POC Pressure Suppt Blood Gas Notified Whom Sodium Potassium Chloride Carbon Dioxide Anion Gap BUN Creatinine Estim Creat Clear Calc Est GFR (MDRD) Af Amer Est GFR (MDRD) Non-Af BUN/Creatinine Ratio Glucose Hemoglobin A1c Calcium Phosphorus Magnesium B-Natriuretic Peptide MRSA (PCR) Negative POC Glucose 301 H 218 H 09/02/19 09/03/19 09/03/19 23:32 04:30 04:30 WBC 13.3 H RBC 5.44 H Hgb 15.4 H Hct 50.1 H MCV 92.1 MCH 28.3 MCHC 30.7 L RDW Std Deviation 49.7 H RDW Coeff of Ramy 14.7 H Plt Count 199 MPV 10.1 Immature Gran % (Auto) 0.800 Neut % (Auto) 84.8 H Lymph % (Auto) 7.8 L [place] % (Auto) 5.5 Eos % (Auto) 0.8 Baso % (Auto) 0.3 Absolute Neuts (auto) 11.3 H Absolute Lymphs (auto) 1.03 Nucleated RBC % 0 Specimen Type pH Bicarbonate Actual POC Total CO2 Base Excess O2 Saturation O2 % ABG pCO2 ABG pO2 O2 Delivery Device Vent Mode POC PEEP POC Pressure Suppt Blood Gas Notified Whom Sodium 138 Potassium 3.4 L Chloride 102 Carbon Dioxide 32.0 Anion Gap 4 L BUN 17 Creatinine 0.63 Estim Creat Clear Calc 93.99 Est GFR (MDRD) Af Amer 127 Est GFR (MDRD) Non-Af 105 BUN/Creatinine Ratio 26.9 H Glucose 226 H Hemoglobin A1c Calcium 8.4 L Phosphorus 2.1 L Magnesium 1.4 L B-Natriuretic Peptide MRSA (PCR) POC Glucose 224 H 09/03/19 09/03/19 09/03/19 06:13 07:59 12:29 WBC RBC Hgb Hct MCV MCH MCHC RDW Std Deviation RDW Coeff of Ramy Plt Count MPV Immature Gran % (Auto) Neut % (Auto) Lymph % (Auto) [place] % (Auto) Eos % (Auto) Baso % (Auto) Absolute Neuts (auto) Absolute Lymphs (auto) Nucleated RBC % Specimen Type ELOISE pH 7.43 Bicarbonate Actual 31.9 H POC Total CO2 33 Base Excess 8 H O2 Saturation 91 L O2 % 45 ABG pCO2 48.2 H ABG pO2 60 L O2 Delivery Device Vent Vent Mode CPAP/PS POC PEEP 5 POC Pressure Suppt 5 Blood Gas Notified Whom ICU MD Sodium Potassium Chloride Carbon Dioxide Anion Gap BUN Creatinine Estim Creat Clear Calc Est GFR (MDRD) Af Amer Est GFR (MDRD) Non-Af BUN/Creatinine Ratio Glucose Hemoglobin A1c Calcium Phosphorus Magnesium B-Natriuretic Peptide MRSA (PCR) POC Glucose 248 H 244 H 09/03/19 09/03/19 09/04/19 16:04 21:13 03:25 WBC RBC Hgb Hct MCV MCH MCHC RDW Std Deviation RDW Coeff of Ramy Plt Count MPV Immature Gran % (Auto) Neut % (Auto) Lymph % (Auto) [place] % (Auto) Eos % (Auto) Baso % (Auto) Absolute Neuts (auto) Absolute Lymphs (auto) Nucleated RBC % Specimen Type pH Bicarbonate Actual POC Total CO2 Base Excess O2 Saturation O2 % ABG pCO2 ABG pO2 O2 Delivery Device Vent Mode POC PEEP POC Pressure Suppt Blood Gas Notified Whom Sodium 139 Potassium 3.6 Chloride 101 Carbon Dioxide 35.0 H Anion Gap 3 L BUN 13 Creatinine 0.52 L Estim Creat Clear Calc 113.88 Est GFR (MDRD) Af Amer 159 Est GFR (MDRD) Non-Af 131 BUN/Creatinine Ratio 25.0 H Glucose 179 H Hemoglobin A1c Calcium 8.6 Phosphorus 2.5 Magnesium 2.2 B-Natriuretic Peptide MRSA (PCR) POC Glucose 252 H 193 H Microbiology 09/01/19 Unknown Abs - Abdominal Gram Stain - Preliminary 09/01/19 Unknown Abs - Abdominal Wound Culture - Preliminary Gram negative kerry 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 Wean high flow nasal cannula as tolerated. Encourage incentive spiromete r 2. Continue AVAPS with any sleep 3. Continue to wean FiO2 as tolerated. 4. Continue scheduled bronchodilator therapy. 5. Continue sliding scale insulin coverage. 6. Continue appropriate ICU prophylaxis. IMPRESSIONS: 1. Acute on chronic combined respiratory failure Patient extubated to AVAPS yesterday. Patient has done well overnight, but is still requiring high flow nasal cannula to maintain saturations. Stressed to the patient that recruitment measures such as ambulation and incentive spirometer will help with atelectasis and oxygen status. Patient is on antibiotics for appendix, so doubt acute infectious pulmonary etiology. Patient asking to go home, but likely needs to tolerate 4 L nasal cannula before she can be discharged from a pulmonary perspective. Would not be opposed to transition to PCU status, but defer to surgery. 2. Acute appendicitis, now POD#3 s/p laparoscopic appendectomy Continue routine postoperative care, including IV antibiotics. Leukocytosis improving. Defer to surgery on pain control 3. COPD of unknown severity/obstructive sleep apnea/continuous tobacco dependency The patient is currently followed through the [facility] system for her underlying obstructive lung disease and sleep apnea. She apparently has a 2 L/min baseline oxygen requirement and continues to smoke cigarettes daily. The exact severity of her underlying lung disease is unknown. However, at the current time, we will plan to continue current supportive measures, including bronchodilator therapy. FiO2 will be weaned as tolerated. 4. Super morbid obesity/hypertension/diabetes mellitus/hyperlipidemia Complicates care, management, recovery and prognosis. Continue sliding scale insulin coverage. Inpatient E&M: 90088 Subs Hosp L3
[2019-09-04] MEDS: metFORMIN HCl 1,000 MG Tablet 1000 MG PO ×2 (08:12→16:47)
[2019-09-04] MEDS: Insulin Lispro 100 UNIT/ML INSULN.PEN SC ×4 (08:12→22:00)
[2019-09-04 08:15] LABS: Bedside Glucose 192 mg/dL (70-110)
--- NOTE | 2019-09-04 10:19 | PCM.PN.SRG ---
Patient Problems: Active and Suspected Problems (Last Updated 12/26/18 @ 12:49 by Zuleyka Rosenberg) Acute appendicitis (Acute) Subjective: Patient still on high flow oxygen otherwise patient is tolerating diet currently on nectar thickened/pur?ed due to speech eval, her re-eval happening this morning - Physical Exam Vitals/I&O's: Vital Signs Temp Pulse Resp BP Pulse Ox 97 F L 86 18 129/76 H 93 09/04/19 10:00 09/04/19 10:00 09/04/19 10:00 09/04/19 10:00 09/04/19 10:00 Oxygen Flow Rate (L/min) 40 Oxygen Delivery Method CPAP Weight: 334 lb 3.532 oz Body Mass Index (BMI) 56.2 Finger Stick Blood Glucose 242 Intake and Output for Last 24 Hours 09/02/19 09/03/19 09/04/19 23:59 23:59 23:59 Intake Total 2978.60 / 2998.92 2579.34 / 2579.34 890 / 890 Output Total 1465 / 1520 3560 / 3560 825 / 825 Balance 1513.60 / 1478.92 -980.66 / -980.66 65 / 65 General: Alert, Oriented x3, Cooperative, No apparent distress Cardiovascular: Regular rate Abdomen: Soft, Non-Distended, Obese, Tender - Incisions clean dry and intact with OpSite's Microbiology Past 72 Hours 09/01/19 Unknown Abs - Abdominal Gram Stain - Preliminary 09/01/19 Unknown Abs - Abdominal Wound Culture - Final Escherichia coli#2 Laboratory Results 09/03/19 12:29: POC Glucose 244 H 09/03/19 16:04: POC Glucose 252 H 09/03/19 21:13: POC Glucose 193 H 09/04/19 03:25: Sodium 139, Potassium 3.6, Chloride 101, Carbon Dioxide 35.0 H, Anion Gap 3 L, BUN 13, Creatinine 0.52 L, Estim Creat Clear Calc 113.88, Est GFR (MDRD) Af Amer 159, Est GFR (MDRD) Non-Af 131, BUN/Creatinine Ratio 25.0 H, Glucose 179 H, Calcium 8.6, Phosphorus 2.5, Magnesium 2.2 09/04/19 08:08: POC Glucose 192 H Current Medications Acetaminophen (Tylenol) 1,000 mg PO Q8H PRN PRN PRN Reason: Pain 1-10 or Fever Last Admin: 09/04/19 03:35 Dose: 1,000 mg Documented by: Albuterol Sulfate (Ventolin Aerosols) 2.5 mg INHALATION Q2H PRN PRN PRN Reason: SOB/Wheezing Albuterol/Ipratropium (Duoneb) 3 ml INHALATION Q6HWA.RT [facility] Last Admin: 09/04/19 06:28 Dose: 3 ml Documented by: Atenolol (Tenormin (Beta Asha)) 50 mg PO DAILY [facility] Atorvastatin Calcium (Lipitor) 40 mg PO QHS [facility] Last Admin: 09/03/19 21:15 Dose: 40 mg Documented by: Chlorhexidine Gluconate () 1 each TOPICAL DAILY [facility] Last Admin: 09/03/19 12:09 Dose: Not Given Documented by: Dextrose (D50w Syringe) 0 gm IV X1 PRN; Protocol PRN Reason: Hypoglycemia Empagliflozin (Jardiance) 10 mg PO DAILY [facility] Last Admin: 09/03/19 14:38 Dose: 10 mg Documented by: Enoxaparin Sodium (Lovenox) 40 mg SC DAILY [facility] Last Admin: 09/03/19 09:31 Dose: 40 mg Documented by: Furosemide (Lasix) 40 mg PO DAILY [facility] Gabapentin (Neurontin) 300 mg PO TID [facility] Last Admin: 09/04/19 05:18 Dose: 300 mg Documented by: Glucagon () 1 mg IM .X1 PRN PRN Reason: Hypoglycemia Hydrochlorothiazide () 25 mg PO DAILY [facility] Pantoprazole Sodium 40 mg/ (Sodium Chloride) 110 mls @ 330 mls/hr IV Q24 [facility] Last Infusion: 09/03/19 09:51 Dose: Infused Documented by: Piperacillin Sod/Tazobactam (Sod 3.375 gm/ Sodium Chloride) 50 mls @ 12.5 mls/hr IV Q8 [facility] Last Admin: 09/04/19 05:23 Dose: 12.5 mls/hr Documented by: Sodium Chloride () 250 mls @ 15 mls/hr IV .[id number] PRN PRN Reason: Saline Flush Last Infusion: 09/03/19 12:09 Dose: Infused Documented by: Sodium Chloride () 250 mls @ 15 mls/hr IV .[id number] PRN PRN Reason: Additional IVPB Infusion Sodium Chloride () 1,000 mls @ 1 mls/hr IV .Q48H PRN PRN Reason: Saline Flush Insulin Glargine (Lantus (Bkc)) 20 units SC QHS [facility] Last Admin: 09/03/19 21:23 Dose: 20 units Documented by: Insulin Human Lispro (Humalog Kwikpen (Bk)) 0 unit SC ACHS [facility]; Protocol Last Admin: 09/04/19 08:12 Dose: 3 u Documented by: Lisinopril (Zestril) 40 mg PO DAILY [facility] Metformin HCl (Glucophage) 1,000 mg PO BIDCM [facility] Last Admin: 09/04/19 08:12 Dose: 1,000 mg Documented by: Nystatin (Mycostatin Powder) 1 applic TOPICAL TID [facility]; Protocol Last Admin: 09/04/19 05:17 Dose: 1 applicatio Documented by: Ondansetron HCl (Zofran) 4 mg IV Q8H PRN PRN PRN Reason: NAUSEA Oxycodone HCl (Oxyir) 5 - 10 mg PO Q4H PRN PRN PRN Reason: Pain Score 6-10/10 Last Admin: 09/03/19 22:57 Dose: 5 mg Documented by: Sodium Chloride () 10 - 40 ml IV UD PRN PRN Reason: SALINE FLUSH Last Admin: 09/04/19 05:23 Dose: 10 ml Documented by: Venlafaxine HCl (Effexor Xr) 225 mg PO DAILY [facility] Last Admin: 09/03/19 14:38 Dose: 225 mg Documented by: Medical Necessity - Tobacco Use Smoking Status: Heavy Smoker (>10/day) Assessment/Plan All Active Problems (Last Updated 12/26/18 @ 12:49 by Zuleyka Rosenberg) Acute appendicitis (Acute) 53-year-old female with acute appendicitis that is post laparoscopic appendectomy postop day 3, COPD on 2 L nasal cannula at home., hypertension, diabetes not well controlled 1. Patient still on high flow oxygen be okay for DC when she can be stable on At least 4 L Or lessas she is normally on 2 L at home. 2. Continue Zosyn 3.375 g IV 8 hours for perforated appendicitis, Will change to Augmentin at time of discharge 3. Continue sliding insulin scale will change to high protocol. Blood sugar still in the low 200s/High at 100s. Sabi Flores M.D. Pager: [phone] [facility] [address] [place] [address], [address] [place] [address] Office: [phone]
--- NOTE | 2019-09-04 10:31 | DCINST_ITS ---
Discharge Diet: - - diabetic diet Discharge Activity: May not drive while taking narcotic pain medications. May shower in (days): 0 Lifting Restrictions: No lifting greater than 20 pounds x 2 weeks, no strenuous exercise for 5 wk Call your doctor if your incision/area has: Continuous Slow Oozing, Sudden Increased Bleeding, Increased Pain/ Swelling, Increased Redness, Foul Smelling Discharge, Swelling at the incision site Call your doctor if you observe: Fever of 101 or Higher Remove Dressing in (days):: 0 - Okay to remove op sites, Steri-Strips will stay on for 7 to 10 days from surgery if did not fall off okay to remove Additional Instructions: Okay to take ibuprofen 400-600 mg PO q6hr PRN along with the Percocet. Avoid Tylenol since there is already Tylenol in the Percocet. Take all pain meds with food. Percocet can cause constipation recommend taking daily stool softener (i.e. Colace/docusate) while taking the pain meds. Recommend starting some MiraLAX In 1 to 2 days if no bowel movement. If still no bowel movement The following day recommend taking magnesium citrate half the bottle and waiting 4-6 hours if still no results take the other half the bottle. Allergies/Adverse Reactions: Allergies tetanus and diphtheria toxoids Allergy (Unknown, Verified 09/01/19 17:06) Other ketorolac tromethamine [From Toradol] Allergy (Verified 09/01/19 17:06) Other morphine Allergy (Verified 09/01/19 17:06) Itching Medications to take at Discharge Atenolol [Tenormin (Beta Asha)] 50 mg PO DAILY 03/04/15 Fenofibrate [Lofibra] 160 mg PO DAILY 03/04/15 Furosemide [Lasix] 40 mg PO DAILY 03/04/15 Gabapentin [Neurontin] 300 mg PO TID 03/04/15 Lisinopril/Hydrochlorothiazide [Zestoretic 02/02.5 Tablet] 2 tab PO DAILY 03/04/15 Venlafaxine XR [Effexor Xr] 225 mg PO DAILY 03/04/15 metFORMIN HCl [Glucophage] 1,000 mg PO BIDCM 03/04/15 albuterol sulfate 90 mcg/actuation breath activated powder inhaler 2 inh INHALATION Q4H PRN ea 12/26/18 aspirin 81 mg tablet,delayed release 81 mg PO DAILY 12/26/18 atorvastatin 40 mg tablet 40 mg PO QHS 12/26/18 blood sugar diagnostic See Rx Instructions .ROUTE .MEDSUPPLY #10 ea 12/26/18 dulaglutide 1.5 mg/0.5 mL subcutaneous pen injector 1.5 mg SC QWEEK 12/26/18 ertugliflozin 5 mg tablet 5 mg PO QAM 12/26/18 ibuprofen 800 mg tablet 800 mg PO Q6H PRN 12/26/18 insulin aspart U-100 100 unit/mL (3 mL) subcutaneous pen See Rx Instructions SC TID 12/26/18 lancets 28 gauge See Rx Instructions .ROUTE .MEDSUPPLY #25 ea 12/26/18 pen needle, diabetic 29 gauge x 1/2 See Rx Instructions .ROUTE .MEDSUPPLY #30 ea 12/26/18 potassium chloride 10 mEq tablet,extended release 20 meq PO DAILY tab 12/26/18 Insulin Degludec [Tresiba Flextouch U-100] 88 unit SQ BID 09/01/19 Tiotropium [place] [Spiriva 18 MCG] 1 puff INHALATION DAILY 09/01/19 Oxycodone HCl/Acetaminophen [Percocet 5/325] 1 - 2 tab PO Q6H PRN PRN 3 Days #10 tab 09/04/19 Amoxicillin/Potassium Clav [Augmentin 875-125 Tablet] 1 ea PO BID #4 tab 09/05/19 The following prescriptions were given: Amoxicillin/Potassium Clav [Augmentin 875-125 Tablet] 1 ea PO BID #4 tab Transmission Status: Sent to [facility] Oxycodone HCl/Acetaminophen [Percocet 5/325] 1 - 2 tab PO Q6H PRN PRN 3 Days #10 tab PRN Reason: Pain Transmission Status: Received by [facility] Primary Care Physician: Samson Todd MD [Primary Care Provider] - Test Results: Test results from this visit will be discussed in further detail at your follow- up appointment, if applicable. Please Follow Up With: Girish Bernard MD When: Within the next week Please Follow Up With: Sabi Flores MD - Any issues after 5:00 on the weekends call [phone]. When: Call the office for a follow-up appointment 2 weeks phone versus virtual Proposed Discharge Date: 09/05/19
[2019-09-04] MEDS: Furosemide 40 MG Tablet PO (10:35)
[2019-09-04] MEDS: Empagliflozin 10 MG Tablet PO (10:35)
[2019-09-04] MEDS: Venlafaxine XR 75 MG Capsule 225 MG PO (10:35)
[2019-09-04] MEDS: CHLORHEXIDINE GLUC 2% CLOTH 1 EACH TOWELETTE TOPICAL (10:36)
[2019-09-04] MEDS: Atenolol 50 MG Tablet PO (10:36)
[2019-09-04] MEDS: Enoxaparin 40 MG/0.4 ML Syringe SC (10:36)
--- NOTE | 2019-09-04 10:38 | DS.PCM_ITS ---
Discharge Date and Diagnosis - Problem List Patient Problems: Active and Suspected Problems (Last Updated 12/26/18 @ 12:49 by Zuleyka Rosenberg) Acute appendicitis (Acute) Date of Admission: 09/01/19 Date of Discharge: 09/05/19 - Primary Discharge Diagnosis Acute Problems: Active Problems (Last Updated 12/26/18 @ 12:49 by uZleyka Rosenberg) Acute appendicitis (Acute) COPD - Secondary Discharge Diagnosis Chronic Problems: Chronic Problems (Last Updated 12/26/18 @ 12:49 by Zuleyka Rosenberg) Hx of partial nephrectomy (Chronic) Chronic back pain (Chronic) Tobacco dependence syndrome (Chronic) Morbid obesity (Chronic) Benign essential hypertension (Chronic) Hospital Course and Treatment Imaging Results: Clinical Impression(s) from Imaging Studies Abdomen/Pelvis CT 09/01/19 17:45 IMPRESSION: Thickening of the appendix with periappendiceal stranding consistent with acute appendicitis. Electronically Signed: Remington Fraire MD at 19:19 EDT Tel , Service support , ADDENDUM: 09/01/19 2045 Chest X-Ray 09/01/19 20:15 IMPRESSION: Borderline cardiomegaly. No active pulmonary disease. Electronically Signed: Remington Fraire MD at 20:59 EDT Tel , Service support , Chest X-Ray 09/01/19 23:19 IMPRESSION: ET tube is in the mid trachea. NG tube is in the stomach. Lungs are expanded. There are bibasilar infiltrates and small effusions. There is NO pneumothorax. Heart is enlarged. Electronically Signed: Pascual Stephenson MD at 4:18 EDT , Service support , KUB X-Ray 09/01/19 23:52 IMPRESSION: NG tube is in the stomach. Electronically Signed: Pascual Stephenson MD at 4:18 EDT , Service support , Chest X-Ray 09/02/19 08:03 IMPRESSION: Basilar infiltrates bilaterally. Possible left pleural effusion. Cardiomegaly and central pulmonary vascular prominence. Electronically Signed: Laureano Howard DO at 9:03 EDT Tel [phone], Service support , ICU/pulmonary Operations: appendectomy Summary of Care Provided: The patient is a 53 year old F presented to the ER due to right mid quadrant pain was found to have acute appendicitis. Patient also has a past medical history for COPD is normally on 2 L nasal cannula at home, prior to our was up to 4 L nasal cannula and once intubated patient CO2 was 70. Patient's underwent a laparoscopic appendectomy, Which went well. However patient remained intubated and sent to the ICU due to her COPD. Patient continued to be intubated the next day she was extubated on postop day 2. However she is still requiring high flow nasal cannula. Patient was stable on 4 L overnight okay to DC.. Patient tolerated diet and speech eval passed for thin liquids. Patient Problems: Active and Suspected Problems (Last Updated 12/26/18 @ 12:49 by Zuleyka Rosenberg) Acute appendicitis (Acute) - Physical Exam Vitals/I&O's: Vital Signs Temp Pulse Resp BP Pulse Ox 97 F L 86 18 129/76 H 93 09/04/19 10:00 09/04/19 10:00 09/04/19 10:00 09/04/19 10:00 09/04/19 10:00 Oxygen Flow Rate (L/min) 40 Oxygen Delivery Method CPAP Weight: 334 lb 3.532 oz Body Mass Index (BMI) 56.2 Finger Stick Blood Glucose 242 Intake and Output for Last 24 Hours 09/02/19 09/03/19 09/04/19 23:59 23:59 23:59 Intake Total 2978.60 / 2998.92 2579.34 / 2579.34 890 / 890 Output Total 1465 / 1520 3560 / 3560 1125 / 1125 Balance 1513.60 / 1478.92 -980.66 / -980.66 -235 / -235 Microbiology Past 72 Hours 09/01/19 Unknown Abs - Abdominal Gram Stain - Preliminary 09/01/19 Unknown Abs - Abdominal Wound Culture - Final Escherichia coli#2 Laboratory Results 09/03/19 12:29: POC Glucose 244 H 09/03/19 16:04: POC Glucose 252 H 09/03/19 21:13: POC Glucose 193 H 09/04/19 03:25: Sodium 139, Potassium 3.6, Chloride 101, Carbon Dioxide 35.0 H, Anion Gap 3 L, BUN 13, Creatinine 0.52 L, Estim Creat Clear Calc 113.88, Est GFR (MDRD) Af Amer 159, Est GFR (MDRD) Non-Af 131, BUN/Creatinine Ratio 25.0 H, Glucose 179 H, Calcium 8.6, Phosphorus 2.5, Magnesium 2.2 09/04/19 08:08: POC Glucose 192 H Current Medications Acetaminophen (Tylenol) 1,000 mg PO Q8H PRN PRN PRN Reason: Pain 1-10 or Fever Last Admin: 09/04/19 03:35 Dose: 1,000 mg Documented by: Albuterol Sulfate (Ventolin Aerosols) 2.5 mg INHALATION Q2H PRN PRN PRN Reason: SOB/Wheezing Albuterol/Ipratropium (Duoneb) 3 ml INHALATION Q6HWA.RT REPLACED BY [facility] Last Admin: 09/04/19 06:28 Dose: 3 ml Documented by: Atenolol (Tenormin (Beta Asha)) 50 mg PO DAILY REPLACED BY [facility] Last Admin: 09/04/19 10:36 Dose: 50 mg Documented by: Atorvastatin Calcium (Lipitor) 40 mg PO QHS REPLACED BY [facility] Last Admin: 09/03/19 21:15 Dose: 40 mg Documented by: Chlorhexidine Gluconate () 1 each TOPICAL DAILY REPLACED BY [facility] Last Admin: 09/04/19 10:36 Dose: 1 each Documented by: Dextrose (D50w Syringe) 0 gm IV X1 PRN; Protocol PRN Reason: Hypoglycemia Docusate Sodium (Colace) 100 mg PO DAILY REPLACED BY [facility] Empagliflozin (Jardiance) 10 mg PO DAILY REPLACED BY [facility] Last Admin: 09/04/19 10:35 Dose: 10 mg Documented by: Enoxaparin Sodium (Lovenox) 40 mg SC DAILY REPLACED BY [facility] Last Admin: 09/04/19 10:36 Dose: 40 mg Documented by: Furosemide (Lasix) 40 mg PO DAILY REPLACED BY [facility] Last Admin: 09/04/19 10:35 Dose: 40 mg Documented by: Gabapentin (Neurontin) 300 mg PO TID REPLACED BY [facility] Last Admin: 09/04/19 05:18 Dose: 300 mg Documented by: Glucagon () 1 mg IM .X1 PRN PRN Reason: Hypoglycemia Hydrochlorothiazide () 25 mg PO DAILY REPLACED BY [facility] Piperacillin Sod/Tazobactam (Sod 3.375 gm/ Sodium Chloride) 50 mls @ 12.5 mls/hr IV Q8 REPLACED BY [facility] Last Admin: 09/04/19 05:23 Dose: 12.5 mls/hr Documented by: Sodium Chloride () 250 mls @ 15 mls/hr IV .[id number] PRN PRN Reason: Saline Flush Last Infusion: 09/03/19 12:09 Dose: Infused Documented by: Sodium Chloride () 250 mls @ 15 mls/hr IV .[id number] PRN PRN Reason: Additional IVPB Infusion Sodium Chloride () 1,000 mls @ 1 mls/hr IV .Q48H PRN PRN Reason: Saline Flush Insulin Glargine (Lantus (Bkc)) 20 units SC QHS REPLACED BY [facility] Last Admin: 09/03/19 21:23 Dose: 20 units Documented by: Insulin Human Lispro (Humalog Kwikpen (Bkc)) [facility]; Protocol Last Admin: 09/04/19 08:12 Dose: 3 u Documented by: Lisinopril (Zestril) 40 mg PO DAILY REPLACED BY [facility] Metformin HCl (Glucophage) 1,000 mg PO BIDCM REPLACED BY [facility] Last Admin: 09/04/19 08:12 Dose: 1,000 mg Documented by: Nystatin (Mycostatin Powder) 1 applic TOPICAL TID REPLACED BY [facility]; Protocol Last Admin: 09/04/19 05:17 Dose: 1 applicatio Documented by: Ondansetron HCl (Zofran) 4 mg IV Q8H PRN PRN PRN Reason: NAUSEA Oxycodone HCl (Oxyir) 5 - 10 mg PO Q4H PRN PRN PRN Reason: Pain Score 6-10/10 Last Admin: 09/03/19 22:57 Dose: 5 mg Documented by: Pantoprazole Sodium (Protonix) 40 mg PO DAILY REPLACED BY [facility] Sodium Chloride () 10 - 40 ml IV UD PRN PRN Reason: SALINE FLUSH Last Admin: 09/04/19 05:23 Dose: 10 ml Documented by: Venlafaxine HCl (Effexor Xr) 225 mg PO DAILY REPLACED BY [facility] Last Admin: 09/04/19 10:35 Dose: 225 mg Documented by: Discharge Diet: - - diabetic Discharge Activity: May not drive while taking narcotic pain medications. May shower in (days): 0 Call your doctor if your incision/area has: Continuous Slow Oozing, Sudden Increased Bleeding, Increased Pain/ Swelling, Increased Redness, Foul Smelling Discharge, Swelling at the incision site Call your doctor if you observe: Fever of 101 or Higher Remove Dressing in (days):: 0 - Okay to remove op sites, Steri-Strips will stay on for 7 to 10 days from surgery if did not fall off okay to remove Home Medications: Medications to take at Discharge Atenolol [Tenormin (Beta Asha)] 50 mg PO DAILY 03/04/15 Fenofibrate [Lofibra] 160 mg PO DAILY 03/04/15 Furosemide [Lasix] 40 mg PO DAILY 03/04/15 Gabapentin [Neurontin] 300 mg PO TID 03/04/15 Lisinopril/Hydrochlorothiazide [Zestoretic 20/.5 Tablet] 2 tab PO DAILY 03/04/15 Venlafaxine XR [Effexor Xr] 225 mg PO DAILY 03/04/15 metFORMIN HCl [Glucophage] 1,000 mg PO BIDCM 03/04/15 albuterol sulfate 90 mcg/actuation breath activated powder inhaler 2 inh INHALATION Q4H PRN 12/26/18 aspirin 81 mg tablet,delayed release 81 mg PO DAILY 12/26/18 atorvastatin 40 mg tablet 40 mg PO QHS 12/26/18 blood sugar diagnostic See Rx Instructions .ROUTE .MEDSUPPLY #10 ea 12/26/18 dulaglutide 1.5 mg/0.5 mL subcutaneous pen injector 1.5 mg SC QWEEK 12/26/18 ertugliflozin 5 mg tablet 5 mg PO QAM 12/26/18 ibuprofen 800 mg tablet 800 mg PO Q6H PRN 12/26/18 insulin aspart U-100 100 unit/mL (3 mL) subcutaneous pen See Rx Instructions SC TID 12/26/18 lancets 28 gauge See Rx Instructions .ROUTE .MEDSUPPLY #25 ea 12/26/18 pen needle, diabetic 29 gauge x 1/2 See Rx Instructions .ROUTE .MEDSUPPLY #30 ea 12/26/18 potassium chloride 10 mEq tablet,extended release 20 meq PO DAILY tab 12/26/18 Insulin Degludec [Tresiba Flextouch U-100] 88 unit SQ BID 09/01/19 Tiotropium [place] [Spiriva 18 MCG] 1 puff INHALATION DAILY 09/01/19 Oxycodone HCl/Acetaminophen [Percocet 5/325] 1 - 2 tab PO Q6H PRN PRN 3 Days #10 tab 09/04/19 Amoxicillin/Potassium Clav [Augmentin 875-125 Tablet] 1 ea PO BID #4 tab 09/05/19 Following Prescrptions Were Given to Patient: Oxycodone HCl/Acetaminophen [Percocet 5/325] 1 - 2 tab PO Q6H PRN PRN 3 Days #10 tab PRN Reason: Pain Transmission Status: Received by [facility] Primary Care Physician: Samson Todd MD [Primary Care Provider] - Please Follow Up With: Girish Bernard MD When: Within the next week Please Follow Up With: Sabi Flores MD - Any issues after 5:00 on the weekends call [phone]. When: Call the office for a follow-up appointment 2 weeks phone versus virtual Additional Instructions: Okay to take ibuprofen 400-600 mg PO q6hr PRN along with the Percocet. Avoid Tylenol since there is already Tylenol in the Percocet. Take all pain meds with food. Percocet can cause constipation recommend taking daily stool softener (i.e. Colace/docusate) while taking the pain meds. Recommend starting some MiraLAX In 1 to 2 days if no bowel movement. If still no bowel movement The following day recommend taking magnesium citrate half the bottle and waiting 4-6 hours if still no results take the other half the bottle. Disposition: Home Patient Condition:: Stable Medical Necessity - Tobacco Use Smoking Status: Heavy Smoker (>10/day) Meaningful Use Info Meaningful Use Diagnoses (Choose all that apply): None applicable
[2019-09-04] MEDS: Docusate Sodium 100 MG Capsule PO (11:43)
[2019-09-04] MEDS: Pantoprazole Sodium 40 MG Tablet PO (11:43)
[2019-09-04 11:56] LABS: Bedside Glucose 242 mg/dL (70-110)
[2019-09-04] MEDS: oxyCODONE 5 MG Tablet PO ×2 (16:54→21:58)
[2019-09-04 17:31] LABS: Bedside Glucose 259 mg/dL (70-110)
[2019-09-04] MEDS: Atorvastatin Calcium 40 MG Tablet PO (22:01)
[2019-09-04 22:11] LABS: Bedside Glucose 172 mg/dL (70-110)
--- NOTE | 2019-09-04 22:51 | CPS ---
decreased o2 to 35%
[2019-09-05] VITALS (10 sets, daily range): BP systolic 112–123; BP diastolic 56–73; PULSE 75–86; RESP 18–20; TEMP 36.6; O2SAT 82–98
[2019-09-05] MEDS: oxyCODONE 5 MG Tablet PO (04:23)
[2019-09-05] MEDS: Gabapentin 300 MG Capsule PO (04:25)
[2019-09-05] MEDS: Nystatin Powder 15gm Bottle 1 APPLIC TOPICAL (04:25)
[2019-09-05] MEDS: Insulin Lispro 100 UNIT/ML INSULN.PEN SC (07:08)
[2019-09-05] MEDS: Ipratropium/Albuterol Sulfate 3 ML AMPUL.NEB INHALATION (07:08)
[2019-09-05 07:16] LABS: Bedside Glucose 283 mg/dL (70-110)
--- NOTE | 2019-09-05 07:57 | PCM.PN.SRG ---
Patient Problems: Active and Suspected Problems (Last Updated 12/26/18 @ 12:49 by Zuleyka Rosenberg) Acute appendicitis (Acute) Subjective: Patient passed her swallow eval for thin liquids from pur?ed thick. Patient has also stayed on 4 L all night and is ready to go home. - Physical Exam Vitals/I&O's: Vital Signs Temp Pulse Resp BP Pulse Ox 97.9 F 86 20 H 112/73 92 09/05/19 06:20 09/05/19 07:10 09/05/19 07:10 09/05/19 06:20 09/05/19 07:30 Oxygen Flow Rate (L/min) 3 Oxygen Delivery Method Nasal Cannula Weight: 334 lb 3.532 oz Body Mass Index (BMI) 56.2 Finger Stick Blood Glucose 242 Intake and Output for Last 24 Hours 09/03/19 09/04/19 09/05/19 23:59 23:59 23:59 Intake Total 2579.34 / 2579.34 1870 / 2590 1570 / 1570 Output Total 3560 / 3560 1625 / 1625 Balance -980.66 / -980.66 245 / 965 1570 / 1570 General: Alert, Oriented x3, Cooperative, No apparent distress Lungs: Normal air movement Cardiovascular: Regular rate Abdomen: Soft, Non-Distended, Tender - Incision clean dry and intact with op sites, no peritoneal signs Extremities: - - Bilateral venous stasis changes Microbiology Past 72 Hours 09/01/19 Unknown Abs - Abdominal Gram Stain - Final 09/01/19 Unknown Abs - Abdominal Wound Culture - Final Escherichia coli#2 09/01/19 Unknown Abs - Abdominal Anaerobic Culture - Preliminary Checking for anaerobes, further studies to follow. Laboratory Results 09/04/19 08:08: POC Glucose 192 H 09/04/19 11:39: POC Glucose 242 H 09/04/19 16:42: POC Glucose 259 H 09/04/19 21:56: POC Glucose 172 H 09/05/19 07:06: POC Glucose 283 H Current Medications Acetaminophen (Tylenol) 1,000 mg PO Q8H PRN PRN PRN Reason: Pain 1-10 or Fever Last Admin: 09/04/19 03:35 Dose: 1,000 mg Documented by: Albuterol Sulfate (Ventolin Aerosols) 2.5 mg INHALATION Q2H PRN PRN PRN Reason: SOB/Wheezing Albuterol/Ipratropium (Duoneb) 3 ml INHALATION Q6HWA.RT [facility] Last Admin: 09/05/19 07:08 Dose: 3 ml Documented by: Atenolol (Tenormin (Beta Asha)) 50 mg PO DAILY [facility] Last Admin: 09/04/19 10:36 Dose: 50 mg Documented by: Atorvastatin Calcium (Lipitor) 40 mg PO QHS [facility] Last Admin: 09/04/19 22:01 Dose: 40 mg Documented by: Chlorhexidine Gluconate () 1 each TOPICAL DAILY [facility] Last Admin: 09/04/19 10:36 Dose: 1 each Documented by: Dextrose (D50w Syringe) 0 gm IV X1 PRN; Protocol PRN Reason: Hypoglycemia Docusate Sodium (Colace) 100 mg PO DAILY [facility] Last Admin: 09/04/19 11:43 Dose: 100 mg Documented by: Empagliflozin (Jardiance) 10 mg PO DAILY [facility] Last Admin: 09/04/19 10:35 Dose: 10 mg Documented by: Enoxaparin Sodium (Lovenox) 40 mg SC DAILY [facility] Last Admin: 09/04/19 10:36 Dose: 40 mg Documented by: Furosemide (Lasix) 40 mg PO DAILY [facility] Last Admin: 09/04/19 10:35 Dose: 40 mg Documented by: Gabapentin (Neurontin) 300 mg PO TID [facility] Last Admin: 09/05/19 04:25 Dose: 300 mg Documented by: Glucagon () 1 mg IM .X1 PRN PRN Reason: Hypoglycemia Hydrochlorothiazide () 25 mg PO DAILY [facility] Piperacillin Sod/Tazobactam (Sod 3.375 gm/ Sodium Chloride) 50 mls @ 12.5 mls/hr IV Q8 [facility] Last Admin: 09/05/19 04:25 Dose: 12.5 mls/hr Documented by: Sodium Chloride () 250 mls @ 15 mls/hr IV .[id number] PRN PRN Reason: Saline Flush Last Infusion: 09/03/19 12:09 Dose: Infused Documented by: Sodium Chloride () 250 mls @ 15 mls/hr IV .[id number] PRN PRN Reason: Additional IVPB Infusion Sodium Chloride () 1,000 mls @ 1 mls/hr IV .Q48H PRN PRN Reason: Saline Flush Insulin Glargine (Lantus (Bkc)) 20 units SC BID [facility] Last Admin: 09/04/19 18:20 Dose: 20 units Documented by: Insulin Human Lispro (Humalog Kwikpen (Bk)) 0 unit SC ACHS [facility]; Protocol Last Admin: 09/05/19 07:08 Dose: 3 u Documented by: Lisinopril (Zestril) 40 mg PO DAILY [facility] ([facility]) [facility] Last Admin: 09/04/19 16:47 Dose: 1,000 mg Documented by: Nystatin (Mycostatin Powder) 1 applic TOPICAL TID [facility]; Protocol Last Admin: 09/05/19 04:25 Dose: 1 applicatio Documented by: Ondansetron HCl (Zofran) 4 mg IV Q8H PRN PRN PRN Reason: NAUSEA Oxycodone HCl (Oxyir) 5 - 10 mg PO Q4H PRN PRN PRN Reason: Pain Score 6-10/10 Last Admin: 09/05/19 04:23 Dose: 5 mg Documented by: Pantoprazole Sodium (Protonix) 40 mg PO DAILY [facility] Last Admin: 09/04/19 11:43 Dose: 40 mg Documented by: Sodium Chloride () 10 - 40 ml IV UD PRN PRN Reason: SALINE FLUSH Last Admin: 09/04/19 14:01 Dose: 10 ml Documented by: Venlafaxine HCl (Effexor Xr) 225 mg PO DAILY [facility] Last Admin: 09/04/19 10:35 Dose: 225 mg Documented by: Medical Necessity - Tobacco Use Smoking Status: Heavy Smoker (>10/day) Assessment/Plan All Active Problems (Last Updated 12/26/18 @ 12:49 by Zuleyka Rosenberg) Acute appendicitis (Acute) 53-year-old female with acute appendicitis that is post laparoscopic appendectomy postop day 4, COPD on 2 L nasal cannula at home., hypertension, diabetes not well controlled 1. Patient has been stable on 4 L nasal cannula all night. Patient did pass her speech eval for thin liquids instead of pur?ed. 2. Continue Zosyn 3.375 g IV 8 hours for perforated appendicitis, Will change to Augmentin at time of discharge?for 2 additional days 3. Continue sliding insulin scale will change to medium protocol as Lantus 20 subcu twice daily. Blood sugar still in the high to mid 200s/High at 100s. Sabi Flores M.D. Pager: [phone] [facility] [address] [place] [address], [address] [place] [address] Office: [phone]
--- NOTE | 2019-09-05 08:57 | PN_ITS ---
Patient Problems: Active and Suspected Problems (Last Updated 12/26/18 @ 12:49 by Zuleyka Rosenberg) Acute appendicitis (Acute) Subjective: Patient transferred out of the intensive care unit yesterday. Patient has not required high flow nasal cannula and feels that she is ready to go home. Patient does state that she is unable to take adequate food secondary to dietary restrictions with thickener. Patient with no respiratory complaints at this time. - Physical Exam Vitals/I&O's: Vital Signs Temp Pulse Resp BP Pulse Ox 36.6 C 86 20 H 112/73 92 09/05/19 06:20 09/05/19 07:10 09/05/19 07:10 09/05/19 06:20 09/05/19 07:30 Oxygen Flow Rate (L/min) 3 Oxygen Delivery Method Nasal Cannula Weight: 151.6 kg Body Mass Index (BMI) 56.2 Finger Stick Blood Glucose 242 Intake and Output for Last 24 Hours 09/03/19 09/04/19 09/05/19 23:59 23:59 23:59 Intake Total 2579.34 / 2579.34 1870 / 2590 1570 / 1570 Output Total 3560 / 3560 1625 / 1625 Balance -980.66 / -980.66 245 / 965 1570 / 1570 General: Alert, Oriented x3, Cooperative, No apparent distress, - - Morbidly obese. Speaking in full sentences. HEENT: Atraumatic, PERRLA, EOMI, Normocephalic, - - Exotropia of the left eye consistent Oral: Moist Mucosa, No Gingival or Mucosal Lesions/ Ulcerations Neck: Supple, No JVD, No Nodes, Trachea Midline, - - Difficult to assess JVD secondary to body habitus Lungs: No rhonchi, No wheeze, No rales, Diminished Cardiovascular: Regular rate, Regular Rhythm, Normal S1, Normal S2, No murmurs, No rub noted, No Gallop Abdomen: Bowel Sounds Present, Soft, Non Tender, Non-Distended, Obese Extremities: No clubbing, No cyanosis, Edema Skin: No rashes, No breakdown Musculoskeletal: No Tenderness to Palpation of Joints or Extremities Lymphatic: No Cervical, Supraclavicular, or Inguinal Adenopathy Neurological: Neuro grossly intact, Motor Exam 5/5 strength throughout Psych/Mental Status: Alert and oriented to time, place, person, mood and affect Microbiology Past 72 Hours 09/01/19 Unknown Abs - Abdominal Gram Stain - Final 09/01/19 Unknown Abs - Abdominal Wound Culture - Final Escherichia coli#2 09/01/19 Unknown Abs - Abdominal Anaerobic Culture - Preliminary Checking for anaerobes, further studies to follow. Laboratory Results 09/04/19 11:39: POC Glucose 242 H 09/04/19 16:42: POC Glucose 259 H 09/04/19 21:56: POC Glucose 172 H 09/05/19 07:06: POC Glucose 283 H Current Medications Acetaminophen (Tylenol) 1,000 mg PO Q8H PRN PRN PRN Reason: Pain 1-10 or Fever Last Admin: 09/04/19 03:35 Dose: 1,000 mg Documented by: Albuterol Sulfate (Ventolin Aerosols) 2.5 mg INHALATION Q2H PRN PRN PRN Reason: SOB/Wheezing Albuterol/Ipratropium (Duoneb) 3 ml INHALATION Q6HWA.RT [facility] Last Admin: 09/05/19 07:08 Dose: 3 ml Documented by: Atenolol (Tenormin (Beta Asha)) 50 mg PO DAILY [facility] Last Admin: 09/04/19 10:36 Dose: 50 mg Documented by: Atorvastatin Calcium (Lipitor) 40 mg PO QHS [facility] Last Admin: 09/04/19 22:01 Dose: 40 mg Documented by: Chlorhexidine Gluconate () 1 each TOPICAL DAILY [facility] Last Admin: 09/04/19 10:36 Dose: 1 each Documented by: Dextrose (D50w Syringe) 0 gm IV X1 PRN; Protocol PRN Reason: Hypoglycemia Docusate Sodium (Colace) 100 mg PO DAILY [facility] Last Admin: 09/04/19 11:43 Dose: 100 mg Documented by: Empagliflozin (Jardiance) 10 mg PO DAILY [facility] Last Admin: 09/04/19 10:35 Dose: 10 mg Documented by: Enoxaparin Sodium (Lovenox) 40 mg SC DAILY [facility] Last Admin: 09/04/19 10:36 Dose: 40 mg Documented by: Furosemide (Lasix) 40 mg PO DAILY [facility] Last Admin: 09/04/19 10:35 Dose: 40 mg Documented by: Gabapentin (Neurontin) 300 mg PO TID [facility] Last Admin: 09/05/19 04:25 Dose: 300 mg Documented by: Glucagon () 1 mg IM .X1 PRN PRN Reason: Hypoglycemia Hydrochlorothiazide () 25 mg PO DAILY [facility] Piperacillin Sod/Tazobactam (Sod 3.375 gm/ Sodium Chloride) 50 mls @ 12.5 mls/hr IV Q8 [facility] Last Admin: 09/05/19 04:25 Dose: 12.5 mls/hr Documented by: Sodium Chloride () 250 mls @ 15 mls/hr IV .[id number] PRN PRN Reason: Saline Flush Last Infusion: 09/03/19 12:09 Dose: Infused Documented by: Sodium Chloride () 250 mls @ 15 mls/hr IV .[id number] PRN PRN Reason: Additional IVPB Infusion Sodium Chloride () 1,000 mls @ 1 mls/hr IV .Q48H PRN PRN Reason: Saline Flush Insulin Glargine (Lantus (Bk)) 20 units SC BID [facility] Last Admin: 09/04/19 18:20 Dose: 20 units Documented by: Insulin Human Lispro (Humalog Kwikpen ([facility])) 0 unit SC ACHS [facility]; Protocol Last Admin: 09/05/19 07:08 Dose: 3 u Documented by: Lisinopril (Zestril) 40 mg PO DAILY [facility] Admin: 09/04/19 16:47 Dose: 1,000 mg Documented by: Nystatin (Mycostatin Powder) 1 applic TOPICAL TID [facility]; Protocol Last Admin: 09/05/19 04:25 Dose: 1 applicatio Documented by: Ondansetron HCl (Zofran) 4 mg IV Q8H PRN PRN PRN Reason: NAUSEA Oxycodone HCl (Oxyir) 5 - 10 mg PO Q4H PRN PRN PRN Reason: Pain Score 6-10/10 Last Admin: 09/05/19 04:23 Dose: 5 mg Documented by: Pantoprazole Sodium (Protonix) 40 mg PO DAILY [facility] Last Admin: 09/04/19 11:43 Dose: 40 mg Documented by: Sodium Chloride () 10 - 40 ml IV UD PRN PRN Reason: SALINE FLUSH Last Admin: 09/04/19 14:01 Dose: 10 ml Documented by: Venlafaxine HCl (Effexor Xr) 225 mg PO DAILY [facility] Last Admin: 09/04/19 10:35 Dose: 225 mg Documented by: Medical Necessity - Tobacco Use Smoking Status: Heavy Smoker (>10/day) Assessment/Plan All Active Problems (Last Updated 12/26/18 @ 12:49 by Zuleyka Rosenberg) Acute appendicitis (Acute) RECOMMENDATIONS: 1. Encourage incentive spirometer. Keep saturations greater than 90% at all times 2. Patient should be evaluated for BiPAP therapy as an outpatient 3. Continue to wean FiO2 as tolerated. 4. Continue scheduled bronchodilator therapy. 5. Continue sliding scale insulin coverage. 6. Continue appropriate ICU prophylaxis. IMPRESSIONS: 1. Acute on chronic combined respiratory failure Patient appears to be doing well from a respiratory standpoint. Patient has had slightly increased oxygen requirements, but this would be expected. Stressed to the patient the importance of continuing with incentive spirometer to minimize atelectasis. Slightly increased oxygen requirements may be required for the next 5 to 7 days. Patient does have a pulse ox and supplemental oxygen already at home. Okay to discharge from a pulmonary perspective. 2. Acute appendicitis, now POD#4 s/p laparoscopic appendectomy Continue routine postoperative care, including IV antibiotics. Leukocytosis was improving. Defer to surgery on pain control 3. COPD of unknown severity/obstructive sleep apnea/continuous tobacco dependency The patient is currently followed through the [facility] system for her underlying obstructive lung disease and sleep apnea. She apparently has a 2 L/min baseline oxygen requirement and continues to smoke cigarettes daily. The exact severity of her underlying lung disease is unknown. However, at the current time, we will plan to continue current supportive measures, including bronchodilator therapy. FiO2 will be weaned as tolerated. 4. Super morbid obesity/hypertension/diabetes mellitus/hyperlipidemia Complicates care, management, recovery and prognosis. Continue sliding scale insulin coverage. Inpatient E&M: 82271 Subs Hosp L2
[2019-09-05] MEDS: metFORMIN HCl 1,000 MG Tablet 1000 MG PO (08:59)
[2019-09-05] MEDS: Venlafaxine XR 75 MG Capsule 225 MG PO (09:00)
[2019-09-05] MEDS: hydroCHLOROthiazide 12.5mg 25 MG PO (09:01)
[2019-09-05] MEDS: Pantoprazole Sodium 40 MG Tablet PO (09:02)
[2019-09-05] MEDS: Lisinopril 20 MG Tablet 40 MG PO (09:02)
[2019-09-05] MEDS: Atenolol 50 MG Tablet PO (09:02)
[2019-09-05] MEDS: Empagliflozin 10 MG Tablet PO (09:03)
[2019-09-05] MEDS: Furosemide 40 MG Tablet PO (09:03)
[2019-09-05] MEDS: Enoxaparin 40 MG/0.4 ML Syringe SC (09:03)
[2019-09-05] MEDS: Docusate Sodium 100 MG Capsule PO (09:07)
--- NOTE | 2019-09-05 10:21 | PHA.DC.MC ---
Pharmacy Service has performed discharge medication reconciliation and counseling for this patient. 1. AMOXICILLIN/CLAVULANATE 875/125MG PO BID X 2 DAYS 2. OXYCODONE/ACETAMINOPHEN 5/325MG 1-2T PO Q6H PRN PAIN X 3DAYS The patient's discharge medication list was reviewed for discrepancies and discrepancies were resolved. Home Medications Atenolol [Tenormin (Beta Asha)] 50 mg PO DAILY 03/04/15 Fenofibrate [Lofibra] 160 mg PO DAILY 03/04/15 Furosemide [Lasix] 40 mg PO DAILY 03/04/15 Gabapentin [Neurontin] 300 mg PO TID 03/04/15 Lisinopril/Hydrochlorothiazide [Zestoretic 20/12.5 Tablet] 2 tab PO DAILY 03/04/15 Venlafaxine XR [Effexor Xr] 225 mg PO DAILY 03/04/15 metFORMIN HCl [Glucophage] 1,000 mg PO BIDCM 03/04/15 albuterol sulfate 90 mcg/actuation breath activated powder inhaler 2 inh INHALATION Q4H PRN ea 12/26/18 aspirin 81 mg tablet,delayed release 81 mg PO DAILY 12/26/18 atorvastatin 40 mg tablet 40 mg PO QHS 12/26/18 blood sugar diagnostic See Rx Instructions .ROUTE .MEDSUPPLY #10 ea 12/26/18 dulaglutide 1.5 mg/0.5 mL subcutaneous pen injector 1.5 mg SC QWEEK 12/26/18 ertugliflozin 5 mg tablet 5 mg PO QAM 12/26/18 ibuprofen 800 mg tablet 800 mg PO Q6H PRN 12/26/18 insulin aspart U-100 100 unit/mL (3 mL) subcutaneous pen See Rx Instructions SC TID 12/26/18 lancets 28 gauge See Rx Instructions .ROUTE .MEDSUPPLY #25 ea 12/26/18 pen needle, diabetic 29 gauge x 1/2 See Rx Instructions .ROUTE .MEDSUPPLY #30 ea 12/26/18 potassium chloride 10 mEq tablet,extended release 20 meq PO DAILY tab 12/26/18 Insulin Degludec [Tresiba Flextouch U-100] 88 unit SQ BID 09/01/19 Tiotropium [place] [Spiriva 18 MCG] 1 puff INHALATION DAILY 09/01/19 Oxycodone HCl/Acetaminophen [Percocet 5/325] 1 - 2 tab PO Q6H PRN PRN 3 Days #10 tab 09/04/19 Amoxicillin/Potassium Clav [Augmentin 875-125 Tablet] 1 ea PO BID #4 tab 09/05/19 The patient was counseled on the following discharge medications and changes in medications for homegoing were reviewed. The Reason for Use, instructions for use, and potential side effects were reviewed for all new medications. The patient's questions regarding all of their medications were answered. The patient was able to verbally demonstrate an understanding of their discharge medications. Patient counseled by director of student financial servicesShane.
--- NOTE | 2019-09-05 11:48 | CASEMGMT ---
Addendum entered by Teresa Mills 09/05/19 12:34: PT/OT notes reviewed and additional therapy recommended. To room to talk with pt and she was made aware. Pt states she thinks she would benefit from therapy, but is not interested in OP therapy. Discussed HHC with pt and she is interested in this. Pt provided w/list of local HHC agencies and she denies having a preference, as long as they are in network w/[facility]. She states does not want to wait to have referral made for HHC, as her is already on his way to pick her up and she wants to go home as soon as possible. She states is agreeable to referral being started and she will f/u w/Dr Todd at her appt. Referral packet faxed to [facility] and call placed to [facility] and referral made. She was also made aware pt has been discharged home. VM later received from [facility] stating they are able to accept pt. Call placed to pt's cell # and she was made aware [facility] able to accept her and they will be in contact w/her to schedule appt for start of care. She voices appreciation. Call placed to Stephanie Lara, Local City Driver @ Dr Todd's office. Message left on her VM informing her pt discharged home w/HHC w/SN and PT/OT services through [facility]. Original Note: TONY LING NOTE: Amb pulse ox has been completed. Pt requires O2 @ 4 L/M @ rest and w/ambulation. Call placed to [facility] @ [facility]. Confirmed that current O2 orders with them are for 2 L/M continuously. New updated O2 order for O2 @ 4 L/M received from Dr Flores and faxed to [facility] at this time. Pt states she has concentrator and portability @ home and will have family bring in portable O2 tank when they come in to pick her up. Pt aware she is now requiring O2 @ 4 L/M and that updated order has been faxed to [facility] so they are aware of the changes. Pt denies any further discharge needs/concerns. Ahmet CAZARES RN, CM
--- NOTE | 2019-09-06 15:04 | CASEMGMT ---
TONY LING DC PHONE CALL DC DATE: 09/05/2019 DC DISPOSITION: Home with [facility] DC DIAGNOSIS: Acute appendicitis LACE/STRATA: 01/16 F/U APPTS MADE PRIOR TO DC: yes PRESCRIPTIONS ACQUIRED BY PT: yes Introduced role of CM to daughter via phone. Pt is in restroom. Daughter states pt is doing well, they have prescriptions and no questions re: instructions or follow up appointments. Patient had not heard from [facility] yet. TONY LING offered to call and contact [facility] for them. She was agreeable. -call to [facility]. They had contacted patient and left message but they had not heard back from patient. -returned call to patient. She had not listened to her messages yet. TONY LING let pt know to call N and they will set up appt. Number given to patient and daughter will assist with call. Patient did not have further questions and appreciated assistance. Richie CAZARES RN ACM
== END 2019-09-05 12:50 | disposition home or self-care (01) | DRG 233 ==
LOC: ED 20:03 → MS3 22:05 → ICU 09-03 07:48 → PCU 09-04 13:12
PROVIDERS: Internal Medicine Critical Care Medicine; Admitting Provider Surgery; Emergency Provider Emergency Medicine; PCP Family Medicine; Referring Provider Surgery; Visit Provider Surgery
PROC: 0DTJ4ZZ Resection of Appendix, Percutaneous Endoscopic Approach (ICD-10-PCS; CPT 44970; principal; 2019-09-01 21:00)
DX: K35.32 Acute appendicitis with perforation, localized peritonitis, and gangrene, without abscess (principal); J96.21 Acute and chronic respiratory failure with hypoxia; J44.9 Chronic obstructive pulmonary disease, unspecified; E11.9 Type 2 diabetes mellitus without complications; I10 Essential (primary) hypertension; E78.5 Hyperlipidemia, unspecified; G89.29 Other chronic pain; M54.9 Dorsalgia, unspecified; K58.9 Irritable bowel syndrome, unspecified; F32.9 Major depressive disorder, single episode, unspecified; F43.10 Post-traumatic stress disorder, unspecified; G47.33 Obstructive sleep apnea (adult) (pediatric); E66.01 Morbid (severe) obesity due to excess calories; F17.210 Nicotine dependence, cigarettes, uncomplicated; Z87.442 Personal history of urinary calculi; Z90.5 Acquired absence of kidney; Z79.899 Other long term (current) drug therapy; Z79.82 Long term (current) use of aspirin; Z79.4 Long term (current) use of insulin; Z68.43 Body mass index [BMI] 50.0-59.9, adult; Z99.81 Dependence on supplemental oxygen
CPT/HCPCS: 31720; 36600; 71045; 74018; 74177; 80048; 80053; 81001; 82550; 82803; 82962; 83036; 83690; 83735; 83880; 84100; 84478; 85025; 87070; 87075; 87077; 87186; 87205; 87641; 88304; 92526; 92610; 93005; 94002; 94003; 94640; 94660; 94762; 97110; 97162; 97166; 97530; 97802; 99285; 99406; J7030; J7050; Q9967; A4216; C1760; J2405

== ENCOUNTER → 2019-09-14 | Outpatient (CLI) | payer MEDICAID, SELFPAY ==
[2019-09-05 11:21] VITALS: BMI 56.2
[2019-09-14 14:16] LABS: Allen Test Positive; Base Excess 7 mmol/L (-2 to +2); Bicarbonate 31.3 mmol/L (22-26); Blood Gas Specimen Type ART; O2 Delivery Device Cannula; PO2 104 mmHG (75-100); SITE R Radial; SO2 98 % (95-99); Total Carbon Dioxide 33 mmol/L; pCO2 49.4 mmHg (35-45); pH 7.41 (7.35-7.45)
== END | disposition home or self-care (01) ==
LOC: PSN 13:30
PROVIDERS: PCP Family Medicine; Referring Provider Internal Medicine Pulmonary Disease; Visit Provider Internal Medicine Pulmonary Disease
DX: J96.11 Chronic respiratory failure with hypoxia (principal); J98.11 Atelectasis; E66.01 Morbid (severe) obesity due to excess calories
CPT/HCPCS: 36600; 82803

== ENCOUNTER 2020-04-28 20:04 | Observation (INO) | payer MEDICAID, SELFPAY ==
[2019-09-05 11:21] VITALS: BMI 56.2
[2020-04-28 20:06] VITALS: BP 153/62; PULSE 96; RESP 18; TEMP 36.4; O2SAT 96; BMI 54.9
--- NOTE | 2020-04-28 20:15 | US_ITS ---
STUDY: VENOUS DOPPLER ULTRASOUND - LEFT LOWER EXTREMITY REASON FOR EXAM: Female, 54 years old. LT LOWER LEG REDNESS AND SWELLING TECHNIQUE: Ultrasound evaluation of the deep vein system to include li-scale imaging and compression was performed. Li-scale imaging and Doppler sonographic evaluation, including duplex spectral analysis and qualitative color flow sonography, was performed. COMPARISON: None. FINDINGS: Common Femoral Vein: Normal compression, spontaneity and augmentation. Normal color Doppler. Common Femoral Vein/Greater Saphenous Junction: Normal compression, spontaneity and augmentation. Normal color Doppler. Deep Femoral Vein: Normal compression, spontaneity and augmentation. Normal color Doppler. Femoral Proximal: Normal compression, spontaneity and augmentation. Normal color Doppler. Femoral Middle: Normal compression, spontaneity and augmentation. Normal color Doppler. Femoral Distal: Normal compression, spontaneity and augmentation. Normal color Doppler. Popliteal Vein: Normal compression, spontaneity and augmentation. Normal color Doppler. Posterior Tibial Vein: Normal compression, spontaneity and augmentation. Normal color Doppler. Peroneal Vein: Normal compression, spontaneity and augmentation. Normal color Doppler. US/Venous Duplex Imag/Limited/Uni IMPRESSION: Normal venous Doppler ultrasound of the lower extremity. Electronically Signed: Leeroy Garrett MD at 21:28 EDT , Service support ,
--- NOTE | 2020-04-28 20:16 | ED.VIS.GEN ---
History of Present Illness Chief Complaint: Lower Extremity Injury Informant: Patient Onset: Today Context: Gradual Onset Timing: Continuous Current Severity: Moderate Maximum Severity: Moderate Narrative: Patient is a 54-year-old female history of hypertension, diabetes who is insulin-dependent, and underlying lung disease on 4 L nasal cannula. The patient presents with approximately 12 hours of redness and pain of her left lower extremity. She states that she had a fall few weeks ago. She states that it was mostly her right leg that was injured. She states that she was babying her left leg. She states that today, she noticed increasing redness and pain. She denies fevers or chills. She states her sugars been running high, but that is not atypical for her. She does not have history of MRSA. She denies any history of cellulitis. She is otherwise been in her normal state of health. Prior similar symptoms: No Recent Illness/Hospitalization: No Past Medical History - Allergies and Home Meds Allergies/Adverse Reactions: Allergies tetanus and diphtheria toxoids Allergy (Unknown, Verified 04/28/20 20:05) Other ketorolac tromethamine [From Toradol] Allergy (Verified 04/28/20 20:05) Other morphine Allergy (Verified 04/28/20 20:05) Itching Primary Care Physician: Samson Todd MD [Primary Care Provider] - Prior records reviewed: Yes Past Medical History: - - Diabetes, hypertension, COPD on oxygen Surgical History: cholecystectomy, - Smoking Status: Current every day smoker - Family History Maternal Family History: Family History (Last Updated 12/26/18 @ 12:51 by Zuleyka Rosenberg) Aunt Diabetes Father Heart disease Sister Heart disease Grandfather Colon cancer Unknown Breast cancer Family History: Reports: No pertinent history Review of Systems General: Denies: Chills, Fever, Sweats Eyes: Denies: Visual changes - bilaterally, Diplopia ENT: Denies: Rhinorrhea, Sore throat Cardiovascular: Denies: Chest pain, Palpitations Respiratory: Denies: Dyspnea, Cough, Dyspnea on exertion Gastrointestinal: Denies: Abdominal pain, Nausea, Vomiting, Diarrhea, Melena, Hematochezia Genitourinary: Denies: Dysuria, Hematuria, Frequency Musculoskeletal: Denies: Back pain, Extremity Pain Skin: Reports: Rash. Denies: Wounds Neurological: Denies: Headache, Weakness, Numbness Physical Exam Vital Signs/Narrative: Vital Signs Temp Pulse Resp BP Pulse Ox 04/28/20 20:06 97.6 F L 96 18 153/62 H 96 Inital Vital Signs reviewed: Yes General: Well nourished, Well developed, No Acute Distress Head: Normocephalic, Atraumatic Eyes: Perrl, EOMI ENT: Moist mucous membranes, No rhinorrhea Neck: Supple, Nontender Cardiovascular: Regular rate, Regular rhythm, No murmurs Respiratory: No distress, Chest nontender, Wheezing Abdomen: Soft, Nontender, Nondistended, Normal bowel sounds Back: Nontender, Normal Inspection Extremities: No edema, Tenderness - Patient has erythema of the anterior left marsh. There is streaking up to the medial thigh. Pulses are normal. There is no crepitus. Skin: Normal color, No rash Neurological: Alert, Oriented x3, Cranial nerves II-XII grossly intact, Normal Strength, Normal Sensation Psychological: Normal affect, Normal Mood Diagnostic/Tx/Re-eval Clinical Impression(s) from Imaging Studies Venous Duplex 04/28/20 20:15 IMPRESSION: Normal venous Doppler ultrasound of the lower extremity. Electronically Signed: Leeroy Garrett MD at 21:28 EDT , Service support , Abnormal Lab Results 04/28/20 04/28/20 20:20 20:20 WBC 11.8 H RBC 4.96 Hgb 14.3 Hct 44.9 MCV 90.5 MCH 28.8 MCHC 31.8 L RDW Std Deviation 45.3 H RDW Coeff of Ramy 13.6 Plt Count 255 MPV 9.9 Immature Gran % (Auto) 0.500 Neut % (Auto) 70.0 Lymph % (Auto) 18.8 L [place] % (Auto) 9.2 Eos % (Auto) 1.2 Baso % (Auto) 0.3 Absolute Neuts (auto) 8.3 H Absolute Lymphs (auto) 2.22 Nucleated RBC % 0 Sodium 139 Potassium 3.2 L Chloride 98 Carbon Dioxide 36.0 H Anion Gap 5 BUN 19 H Creatinine 0.79 Estim Creat Clear Calc 74.11 Est GFR (MDRD) Af Amer 98 Est GFR (MDRD) Non-Af 81 BUN/Creatinine Ratio 24.1 H Glucose 139 H Calcium 8.6 Total Bilirubin 0.30 AST 19 ALT 24 Alkaline Phosphatase 112 Total Protein 8.6 H Albumin 3.0 L Globulin 5.6 H Albumin/Globulin Ratio 0.5 L - Medical Decision Making The patient presents with a lower extremity cellulitis limited lymphangitic streak. I did obtain ultrasound. There is no evidence of DVT. Her pulses are normal. Screening labs were obtained. She does have leukocytosis, otherwise labs are unremarkable. Patient was covered with Rocephin and vancomycin. Due to history of diabetes and significant cellulitis, I do feel that she would benefit from admission. The patient was discussed with the hospitalist. Impression 1. Left lower extremity cellulitis ED Disposition - Plan for ED Patient: Referrals: Samson Todd MD [Primary Care Provider] -
[2020-04-28 20:39] LABS: Absolute Lymphocyte Count 2.22 X10^3/uL (0.83-4.51); Absolute Neutrophil Count 8.3 X10^3/uL (2.0-7.7); Basophil# 0.04 X10^3/uL; Basophil% 0.3 % (0-1); Eosinophil# 0.14 X10^3/uL; Eosinophils% 1.2 % (0-5); Hematocrit 44.9 % (37-47); Hemoglobin 14.3 g/dL (12.0-15.0); Lymphocyte # 2.22 X10^3/ul (4.0); Lymphocyte % 18.8 % (19-41); Mean Corp Hgb Conc 31.8 g/dL (32-36); Mean Corpuscular Hgb 28.8 pg (27.0-32.0); Mean Corpuscular Volume 90.5 fL (81-99); Mean Platelet Vol. 9.9 fl (6.2-12.0); Monocyte# 1.09 X10^3/uL; Monocyte% 9.2 % (0-10); NRBC Flagged by Analyzer 0 % (0-5); Neutrophil # 8.25 X10^3/uL (2.7-7.7); Platelet Count 255 K/mm3 (150-450); RBC Distribution Width CV 13.6 % (11.6-14.6); RBC Distribution Width SD 45.3 fl (35.1-43.9); Red Blood Count 4.96 M/mm3 (4.2-5.4); White Blood Count 11.8 K/mm3 (4.4-11.0)
[2020-04-28 20:56] LABS: ALB/GLOB Ratio 0.5 RATIO (0.9-2.4); AST(SGOT) 19 U/L (15-37); Alanine Aminotransfer ALT/SGPT 24 U/L (13-56); Alkaline Phosphatase 112 U/L (45-117); Anion Gap 5 (5-15); BUN 19 mg/dL (7-18); BUN/Creat Ratio 24.1 RATIO (10-20); Calcium,Total 8.6 mg/dL (8.5-10.1); Chloride 98 mmol/L (98-107); Creatinine, Serum 0.79 mg/dL (0.55-1.02); EST Glomerular Filtration Rate 81 mL/min (>60); Est Glom Filt Rate - Afr Amer 98 mL/min (>60); Estimated Creatinine Clearance 74.11 ml/min; Globulin 5.6 g/dL (2.2-4.2); Glucose 139 mg/dL (74-106); Potassium 3.2 mmol/L (3.5-5.1); Protein, Total 8.6 g/dL (6.4-8.2); Sodium Level 139 mmol/L (136-145)
[2020-04-28] MEDS: Ceftriaxone 1 GM/50 ML BAG IV (21:13)
[2020-04-28 21:39] VITALS: BP 120/71; PULSE 81; RESP 20; TEMP 37; O2SAT 96
[2020-04-28 21:41] VITALS: BP 120/71; PULSE 89; RESP 20; TEMP 37; O2SAT 96
[2020-04-28 21:41] LABS: Lactic Acid 2.8 mmol/L (0.4-1.9)
--- NOTE | 2020-04-28 21:49 | HP.PCM_ITS ---
Problem List (1) Diabetes Status: Chronic (2) Cellulitis Status: Acute Qualifiers: Site of cellulitis: extremity Site of cellulitis of extremity: lower extremity Laterality: left Qualified Code(s): L03.116 - Cellulitis of left lower limb (3) Hx of partial nephrectomy Status: Chronic (4) Chronic back pain Status: Chronic (5) Tobacco dependence syndrome Status: Chronic (6) Morbid obesity Status: Chronic (7) Benign essential hypertension Status: Chronic History of Present Illness Date of Admission: 04/28/20 Chief Complaint: left leg redness The patient is a 54 year old female with a significant past medical history of COPD and diabetes presents the emergency room with left lower leg redness and warmth. Onset of the symptoms began earlier this day and have progressed quite rapidly with lymphangitic streaking up into the medial thigh. Patient states she had a recent fall prior to this but injured her right leg and not her left at that time. She is on 4 L nasal cannula routinely for her COPD. Patient has an elevated white blood cell count with a left shift and a negative Doppler for DVT. Due to lymphangitic streaking she will be admitted for IV antibiotics. Past Medical History Past Medical History (Chronic Problems): Chronic Problems (Last Updated 12/26/18 @ 12:49 by Zuleyka Rosenberg) Diabetes (Chronic) Hx of partial nephrectomy (Chronic) Chronic back pain (Chronic) Tobacco dependence syndrome (Chronic) Morbid obesity (Chronic) Benign essential hypertension (Chronic) Medical History: Medical History (Last Updated 12/26/18 @ 12:49 by Zuleyka Rosenberg) Degenerative disc disease Depression F32.9 IBS (irritable bowel syndrome) K58.9 Microalbuminuria R80.9 Obesity E66.9 Panic disorder F41.0 Sleep apnea G47.30 Type 2 diabetes mellitus E11.9 Urinary calculus N20.9 HTN (hypertension) I10 Allergies tetanus and diphtheria toxoids Allergy (Unknown, Verified 04/28/20 20:05) Other ketorolac tromethamine [From Toradol] Allergy (Verified 04/28/20 20:05) Other morphine Allergy (Verified 04/28/20 20:05) Itching Home Medications: Ambulatory Orders Medication Instructions Recorded Atenolol [Tenormin (Beta Asha)] 50 mg PO DAILY 03/04/15 Furosemide [Lasix] 40 mg PO DAILY 03/04/15 Gabapentin [Neurontin] 300 mg PO TID 03/04/15 Lisinopril/Hydrochlorothiazide 2 tab PO DAILY 03/04/15 [Zestoretic /12.5 Tablet] Venlafaxine XR [Effexor Xr] 225 mg PO DAILY 03/04/15 metFORMIN HCl [Glucophage] 1,000 mg PO BIDCM 03/04/15 albuterol sulfate 90 mcg/actuation 2 inh INHALATION Q4H PRN ea 12/26/18 breath activated powder inhaler aspirin 81 mg tablet,delayed 81 mg PO DAILY 12/26/18 release atorvastatin 40 mg tablet 40 mg PO QHS 12/26/18 dulaglutide 1.5 mg/0.5 mL 1.5 mg SC QWEEK 12/26/18 subcutaneous pen injector ibuprofen 800 mg tablet 800 mg PO Q6H PRN 12/26/18 potassium chloride 10 mEq 20 meq PO DAILY tab 12/26/18 tablet,extended release Insulin Degludec [Tresiba 88 unit SQ BID 09/01/19 Flextouch U-100] Insulin Lispro [Humalog KwikPen] 40 unit SQ DAILY 04/28/20 Insulin Lispro [Humalog KwikPen] 66 unit SQ DAILY 04/28/20 Insulin Lispro [Humalog Kwikpen] 94 unit SC DAILY 04/28/20 busPIRone [Buspar] 5 mg PO TID 04/28/20 Surgical History: Surgical History (Last Updated 12/26/18 @ 12:50 by Zuleyka Rosenberg) H/O dilation and curettage Z98.890 H/O lithotripsy Z98.890 x2 History of renal stent x 3 Hx of cholecystectomy Z90.49 R lower portion of kidney removed 2009 repair of r arm fx as child Surgical History: cholecystectomy, - Psychiatric History: No pertinent psych hx 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 Smoking Status: Current every day smoker - *Family History Maternal Family History: Family History (Last Updated 12/26/18 @ 12:51 by Zuleyka Rosenberg) Aunt Diabetes Father Heart disease Sister Heart disease Grandfather Colon cancer Unknown Breast cancer History Items: No pertinent history Review of Systems Constitutional: Denies: Chills, Fever, Weight Change HEENT: Denies: Head Aches, Sinus Congestion, Sinus Drainage Cardiovascular: Denies: Chest Pain, Palpitations Respiratory: Denies: Cough, Shortness of breath at rest, Sputum production Gastrointestinal: Denies: Abdominal Pain, Nausea, Vomiting Genitourinary: Denies: Dysuria Musculoskeletal: Denies: Joint Pain, Joint Tenderness Skin: Reports: Wounds. Denies: Rash Neurological: Denies: Numbness, Tingling, Focal weakness Psychiatric: Denies: Anxiety, Depression, Homicidal Ideations, Suicidal Ideations Hematologic/ Lymphatic: Denies: Easy Bruising, Easy Bleeding VTE Information - Inpt Only VTE Present on Admission: Yes VTE Pharm Prophylaxis ordered?: No - Physical Exam Vitals/I&O's: Vital Signs Temp Pulse Resp BP Pulse Ox 98.6 F 89 20 H 120/71 96 04/28/20 21:41 04/28/20 21:41 04/28/20 21:41 04/28/20 21:41 04/28/20 21:41 Oxygen Flow Rate (L/min) 4 Oxygen Delivery Method Nasal Cannula Weight: 330 lb Body Mass Index (BMI) 54.9 Finger Stick Blood Glucose 242 General: Alert, Oriented x3, Cooperative HEENT: Atraumatic, Normocephalic Neck: Supple Lungs: Clear to auscultation, Normal air movement Cardiovascular: Regular rate, Normal S1, Normal S2, No murmurs Abdomen: Bowel Sounds Present, Soft, Non Tender, Obese Extremities: Edema, Tenderness Skin: Ulcer/ Wound - left lower leg erythema, knee to ankle with medial thigh lymphangitic streaking Musculoskeletal: No Tenderness to Palpation of Joints or Extremities Neurological: Neuro grossly intact Psych/Mental Status: Normal Affect, Appropriate Laboratory Results 04/28/20 20:20: WBC 11.8 H, RBC 4.96, Hgb 14.3, Hct 44.9, MCV 90.5, MCH 28.8, MCHC 31.8 L, RDW Std Deviation 45.3 H, RDW Coeff of Ramy 13.6, Plt Count 255, MPV 9.9, Immature Gran % (Auto) 0.500, Neut % (Auto) 70.0, Lymph % (Auto) 18.8 L, M jaylyn % (Auto) 9.2, Eos % (Auto) 1.2, Baso % (Auto) 0.3, Absolute Neuts (auto) 8.3 H, Absolute Lymphs (auto) 2.22, Nucleated RBC % 0 04/28/20 20:20: Sodium 139, Potassium 3.2 L, Chloride 98, Carbon Dioxide 36.0 H, Anion Gap 5, BUN 19 H, Creatinine 0.79, Estim Creat Clear Calc 74.11, Est GFR (MDRD) Af Amer 98, Est GFR (MDRD) Non-Af 81, BUN/Creatinine Ratio 24.1 H, Glucose 139 H, Calcium 8.6, Total Bilirubin 0.30, AST 19, ALT 24, Alkaline Phosphatase 112, Total Protein 8.6 H, Albumin 3.0 L, Globulin 5.6 H, Albumin/Globulin Ratio 0.5 L 04/28/20 20:20: Lactic Acid 2.8 H* Current Medications Vancomycin HCl 2,000 mg/ (Sodium Chloride) 540 mls @ 250 mls/hr IV X1 ONE Stop: 04/28/20 23:39 Assessment/Plan All Active Problems (Last Updated 12/26/18 @ 12:49 by Zuleyka Rosenberg) Acute appendicitis (Acute) Cellulitis (Acute) Chronic Problems (Last Updated 12/26/18 @ 12:49 by Zuleyka Rosenberg) Diabetes (Chronic) Hx of partial nephrectomy (Chronic) Chronic back pain (Chronic) Tobacco dependence syndrome (Chronic) Morbid obesity (Chronic) Benign essential hypertension (Chronic) Plan 1. Left leg cellulitis?admit patient to medical surgical floor for observation, continue Rocephin 1 g IV every 24 hours with vancomycin IV. Repeat CBC BMP in the morning 2. DVT prophylaxis?low molecular weight heparin 3. Diabetes?continue home medications may consider adding sliding scale if necessary 4. Tobacco use?cessation encouraged 5. Hypertension?continue home medication OBSV E&M: 59521 Initial observation care L2
[2020-04-28 22:46] VITALS: BMI 55.4
[2020-04-28 23:00] VITALS: BP 133/67; PULSE 95; RESP 18; TEMP 36.6; O2SAT 96
[2020-04-28 23:25] VITALS: O2SAT 97
--- NOTE | 2020-04-28 23:25 | CPS ---
Set up patients home CPAP unit with 4 lpm O2 bleed in.
[2020-04-28] MEDS: Gabapentin 300 MG Capsule PO (23:29)
[2020-04-28] MEDS: busPIRone 5 MG Tablet PO (23:29)
[2020-04-28] MEDS: Atorvastatin Calcium 40 MG Tablet PO (23:29)
--- NOTE | 2020-04-28 23:59 | PCM.RX.CS ---
Consult Pharmacy has been consulted to manage selected antiobiotic: Vancomycin Type of Consult: New start Labs: Sodium 139 mmol/L (136-145) 04/28/20 20:20 Potassium 3.2 mmol/L (3.5-5.1) L 04/28/20 20:20 Chloride 98 mmol/L (98-107) 04/28/20 20:20 Carbon Dioxide 36.0 mmol/L (21.0-32.0) H 04/28/20 20:20 Anion Gap 5 (5-15) 04/28/20 20:20 BUN 19 mg/dL (7-18) H 04/28/20 20:20 Creatinine 0.79 mg/dL (0.55-1.02) 04/28/20 20:20 Est GFR (MDRD) Af Amer 98 mL/min (>60) 04/28/20 20:20 Est GFR (MDRD) Non-Af 81 mL/min (>60) 04/28/20 20:20 BUN/Creatinine Ratio 24.1 RATIO (10-20) H 04/28/20 20:20 Glucose 139 mg/dL (74-106) H 04/28/20 20:20 Goal Trough: 10-15 mcg/mL Pharmacy Plan for Drug Dosing: Pharmacy Service will continue to monitor and adjust dosing as required. Medications Vancomycin HCl 1,750 mg/ (Sodium Chloride) 535 mls @ 250 mls/hr IV Q12H RU Discontinued Medications Vancomycin HCl 2,000 mg/ (Sodium Chloride) 540 mls @ 250 mls/hr IV X1 ONE Stop: 04/28/20 23:39 Last Admin: 04/28/20 21:55 Dose: 250 mls/hr Documented by: Follow-Up Labs: Trough Vancomycin Labs to be done on [date and time ordered]: 04/30 @ 0813
[2020-04-29] VITALS (7 sets, daily range): BP systolic 99–115; BP diastolic 42–84; PULSE 78–91; RESP 18–20; TEMP 36.4–36.7; O2SAT 94–100
[2020-04-29 00:33] LABS: Reflex Lactate? Y
[2020-04-29 01:13] LABS: Lactic Acid 1.1 mmol/L (0.4-1.9)
[2020-04-29] MEDS: Acetaminophen 325 MG Tablet 650 MG PO (01:13)
[2020-04-29] MEDS: Gabapentin 300 MG Capsule PO ×3 (05:20→21:39)
[2020-04-29] MEDS: busPIRone 5 MG Tablet PO ×3 (05:21→21:38)
[2020-04-29 06:19] LABS: Absolute Lymphocyte Count 2.94 X10^3/uL (0.83-4.51); Absolute Neutrophil Count 6.6 X10^3/uL (2.0-7.7); Basophil# 0.05 X10^3/uL; Basophil% 0.5 % (0-1); Eosinophil# 0.27 X10^3/uL; Eosinophils% 2.5 % (0-5); Hemoglobin 12.9 g/dL (12.0-15.0); Lymphocyte # 2.94 X10^3/ul (4.0); Lymphocyte % 26.7 % (19-41); Mean Corp Hgb Conc 30.7 g/dL (32-36); Mean Corpuscular Hgb 28.4 pg (27.0-32.0); Mean Corpuscular Volume 92.3 fL (81-99); Mean Platelet Vol. 10.2 fl (6.2-12.0); Monocyte# 1.09 X10^3/uL; Monocyte% 9.9 % (0-10); NRBC Flagged by Analyzer 0 % (0-5); Neutrophil % 59.9 % (47-70); Platelet Count 220 K/mm3 (150-450); RBC Distribution Width CV 13.7 % (11.6-14.6); RBC Distribution Width SD 46.5 fl (35.1-43.9); Red Blood Count 4.55 M/mm3 (4.2-5.4)
[2020-04-29] MEDS: Insulin Lispro 100 UNIT/ML INSULN.PEN SC ×4 (06:44→21:39)
[2020-04-29 06:52] LABS: Anion Gap 3 (5-15); BUN 19 mg/dL (7-18); BUN/Creat Ratio 37.2 RATIO (10-20); Calcium,Total 8.3 mg/dL (8.5-10.1); Chloride 101 mmol/L (98-107); Creatinine, Serum 0.51 mg/dL (0.55-1.02); EST Glomerular Filtration Rate 134 mL/min (>60); Est Glom Filt Rate - Afr Amer 162 mL/min (>60); Estimated Creatinine Clearance 114.79 ml/min; Glucose 138 mg/dL (74-106); Potassium 3.2 mmol/L (3.5-5.1); Sodium Level 139 mmol/L (136-145)
[2020-04-29 06:55] LABS: Bedside Glucose 181 mg/dL (70-110)
[2020-04-29] MEDS: Aspirin E.C. 81 MG Tablet PO (08:07)
[2020-04-29] MEDS: metFORMIN HCl 1,000 MG Tablet 1000 MG PO ×2 (08:07→16:14)
[2020-04-29] MEDS: Venlafaxine XR 75 MG Capsule 225 MG PO (08:08)
[2020-04-29] MEDS: hydroCHLOROthiazide 12.5mg 12.5 MG PO (08:08)
[2020-04-29] MEDS: Potassium Chloride Oral Tablet 20 MEQ PO (08:08)
[2020-04-29] MEDS: Furosemide 40 MG Tablet PO (08:09)
--- NOTE | 2020-04-29 09:14 | PN_ITS ---
Patient Problems: Active and Suspected Problems (Last Updated 12/26/18 @ 12:49 by Zuleyka Rosenberg) Cellulitis (Acute) Subjective: Chief complaint: Follow-up after admission for acute left leg cellulitis. Patient seen and examined. No acute events overnight. She has no specific complaints. She was asking to go home today. Swelling and erythema of the left leg minimally improved. She has been afebrile. Other vital signs are stable. - Physical Exam Vitals/I&O's: Vital Signs Temp Pulse Resp BP Pulse Ox 97.5 F L 87 18 110/42 L 98 04/29/20 05:13 04/29/20 05:13 04/29/20 05:13 04/29/20 05:13 04/29/20 07:09 Oxygen Flow Rate (L/min) 4 Oxygen Delivery Method Room Air Weight: 333 lb 1.895 oz Body Mass Index (BMI) 55.4 Finger Stick Blood Glucose 242 Intake and Output for Last 24 Hours 04/27/20 04/28/20 04/29/20 23:59 23:59 23:59 Intake Total 550 / 550 1040 / 1040 Output Total 400 / 400 Balance 550 / 550 640 / 640 General: Alert, Oriented x3, Cooperative, No apparent distress HEENT: Atraumatic, PERRLA, EOMI, Normocephalic Oral: Moist Mucosa, No Gingival or Mucosal Lesions/ Ulcerations Neck: Supple, No JVD, Negative Carotid Bruits, Trachea Midline, Thyroid Normal Size and Texture Lungs: Clear to auscultation, No rhonchi, No wheeze, No rales, Diminished Cardiovascular: Regular rate, Regular Rhythm, Normal S1, Normal S2, PMI Normal Abdomen: Bowel Sounds Present, Soft, Non Tender, Non-Distended, No Hepato- splenomegaly, Obese Extremities: No clubbing, No cyanosis, Edema - Trace edema., - - Left leg: Erythema and swelling of the left leg, hot to palpation, redness is improving. Skin: No rashes, Ulcer/ Wound Lymphatic: No Cervical, Supraclavicular, or Inguinal Adenopathy Neurological: Cranial nerves II-XII grossly intact, Motor Exam 5/5 strength throughout Psych/Mental Status: Normal Affect, Appropriate, Alert and oriented to time, place, person, mood and affect Laboratory Results 04/28/20 20:20: WBC 11.8 H, RBC 4.96, Hgb 14.3, Hct 44.9, MCV 90.5, MCH 28.8, MCHC 31.8 L, RDW Std Deviation 45.3 H, RDW Coeff of Ramy 13.6, Plt Count 255, MPV 9.9, Immature Gran % (Auto) 0.500, Neut % (Auto) 70.0, Lymph % (Auto) 18.8 L, [place] % (Auto) 9.2, Eos % (Auto) 1.2, Baso % (Auto) 0.3, Absolute Neuts (auto) 8.3 H, Absolute Lymphs (auto) 2.22, Nucleated RBC % 0 04/28/20 20:20: Sodium 139, Potassium 3.2 L, Chloride 98, Carbon Dioxide 36.0 H, Anion Gap 5, BUN 19 H, Creatinine 0.79, Estim Creat Clear Calc 74.11, Est GFR (MDRD) Af Amer 98, Est GFR (MDRD) Non-Af 81, BUN/Creatinine Ratio 24.1 H, Glucose 139 H, Calcium 8.6, Total Bilirubin 0.30, AST 19, ALT 24, Alkaline Phosphatase 112, Total Protein 8.6 H, Albumin 3.0 L, Globulin 5.6 H, Albumin/Globulin Ratio 0.5 L 04/28/20 20:20: Lactic Acid 2.8 H* 04/29/20 00:45: Lactic Acid 1.1 04/29/20 05:26: WBC 11.0, RBC 4.55, Hgb 12.9, Hct 42.0, MCV 92.3, MCH 28.4, MCHC 30.7 L, RDW Std Deviation 46.5 H, RDW Coeff of Ramy 13.7, Plt Count 220, MPV 10.2, Immature Gran % (Auto) 0.500, Neut % (Auto) 59.9, Lymph % (Auto) 26.7, [place] % (Auto) 9.9, Eos % (Auto) 2.5, Baso % (Auto) 0.5, Absolute Neuts (auto) 6.6, Absolute Lymphs (auto) 2.94, Nucleated RBC % 0 04/29/20 05:26: Sodium 139, Potassium 3.2 L, Chloride 101, Carbon Dioxide 35.0 H , Anion Gap 3 L, BUN 19 H, Creatinine 0.51 L, Estim Creat Clear Calc 114.79, Est GFR (MDRD) Af Amer 162, Est GFR (MDRD) Non-Af 134, BUN/Creatinine Ratio 37.2 H, Glucose 138 H, Calcium 8.3 L 04/29/20 06:39: POC Glucose 181 H Current Medications Acetaminophen (Acetaminophen 325 Mg Tablet) 650 mg PO Q6H PRN PRN PRN Reason: Pain Score 1-10/Temp > 100.7 F Last Admin: 04/29/20 01:13 Dose: 650 mg Documented by: Albuterol Sulfate (Albuterol 2.5 Mg/3 Ml Vial.Neb.) 2.5 mg INHALATION Q4H PRN PRN PRN Reason: WHEEZING Aspirin (Aspirin E.C. 81 Mg Tablet) 81 mg PO DAILY [facility] Last Admin: 04/29/20 08:07 Dose: 81 mg Documented by: Atenolol (Atenolol 50 Mg Tablet) 50 mg PO DAILY [facility] Atorvastatin Calcium (Atorvastatin Calcium 40 Mg Tablet) 40 mg PO QHS [facility] Last Admin: 04/28/20 23:29 Dose: 40 mg Documented by: Buspirone HCl (Buspirone 5 Mg Tablet) 5 mg PO TID [facility] Last Admin: 04/29/20 05:21 Dose: 5 mg Documented by: Enoxaparin Sodium (Enoxaparin 40 Mg/0.4 Ml Syringe) 40 mg SC DAILY [facility] Furosemide (Furosemide 40 Mg Tablet) 40 mg PO DAILY [facility] Last Admin: 04/29/20 08:09 Dose: 40 mg Documented by: Gabapentin (Gabapentin 300 Mg Capsule) 300 mg PO TID [facility] Last Admin: 04/29/20 05:20 Dose: 300 mg Documented by: Hydrochlorothiazide (Hydrochlorothiazide 12.5mg) 12.5 mg PO DAILY [facility] Last Admin: 04/29/20 08:08 Dose: 12.5 mg Documented by: Vancomycin IV Pharmacy to Dose (1 ea/ Sodium Chloride) 500 mls @ 250 mls/hr IV X1 PRN; Protocol PRN Reason: Rx to Dose Ceftriaxone Sodium (Rocephin) 1 gm in 50 mls @ 100 mls/hr IV Q24H RU Vancomycin HCl 1,750 mg/ (Sodium Chloride) 535 mls @ 250 mls/hr IV Q12H [facility] Ibuprofen (Ibuprofen 400 Mg Tablet) 800 mg PO Q6H PRN PRN PRN Reason: PAIN 1-11/23 Influenza Virus Vaccine Quadrival (Influenza Vaccine (6mos+)/Pf 0.5 Ml Syringe) 0.5 ml IM .ONCE ONE Stop: 04/29/20 10:01 Insulin Glargine (Insulin Glargine 100 Units/Ml Pen) 88 units SC BID [facility] Insulin Human Lispro (Insulin Lispro 100 Unit/Ml Insuln.Pen) 0 unit SC [facility]; Protocol Last Admin: 04/29/20 06:44 Dose: 3 u Documented by: Lisinopril (Lisinopril 20 Mg Tablet) 20 mg PO DAILY [facility] Metformin HCl (Met[facility] Hcl 1,000 Mg Tablet) [facility] Last Admin: 04/29/20 08:07 Dose: 1,000 mg Documented by: Nicotine (Nicotine 21 Mg Patch) 21 mg TD DAILY [facility] Nicotine Polacrilex (Nicotine Polacrilex 2 Mg Gum) 2 mg PO Q4H PRN PRN PRN Reason: Nicotine Craving Non-Formulary Medication (Dulaglutide [Trulicity]) 1.5 mg SC QWEEK [facility] Potassium Chloride (Potassium Chloride Oral Tablet 20 Meq) 20 meq PO DAILY [facility] Last Admin: 04/29/20 08:08 Dose: 20 meq Documented by: Sodium Chloride (0.9% Saline Lock 10 Ml Syringe) 10 - 40 ml IV UD PRN PRN Reason: SALINE FLUSH Venlafaxine HCl (Venlafaxine Xr 75 Mg Capsule) 225 mg PO DAILY [facility] Last Admin: 04/29/20 08:08 Dose: 225 mg Documented by: Medical Necessity - Tobacco Use Smoking Status: Current every day smoker Tobacco Use: Cigarettes Assessment/Plan All Active Problems (Last Updated 12/26/18 @ 12:49 by Zuleyka Rosenberg) Cellulitis (Acute) This is a 53 years old female patient presented to the emergency room because of left leg pain and redness, found to have acute left leg cellulitis and she was admitted for treatment. #1 acute left leg cellulitis: Without evidence of sepsis or severe sepsis. She is on IV vancomycin. Lactic acid was elevated but patient was afebrile, not tachycardic, not tachypneic and she had minimal leukocytosis. She has been afeb rile, leukocytosis resolved. Venous Doppler of the left leg showed no acute DVT. Blood cultures pending. Local erythema and swelling of the left leg minimal improved. Plan to continue same treatment, anticipate discharge home tomorrow. #2 hypokalemia: It is chronic, she has been on p.o. potassium supplement at home. Today potassium is 3.2. Plan to give her another dose of K. Dur 60 mEq. #3 type 2 diabetes mellitus: ADA diet, Accu-Cheks, continue Lantus twice daily and sliding scale as well as Metformin. #4 hypertension: Blood pressure stable, continue atenolol, Lasix, HCTZ and lisinopril. #5 chronic back pain: Stable, continue ibuprofen as needed. #6 COPD/chronic respiratory failure: She is on albuterol as needed, on oxygen at 4 L which is her baseline at home. #7 DVT prophylaxis: This note was generated with [employer] dictation software. It may contain incorrect words, spelling, and punctuation that were not noted in checking the note before signing. Inpatient E&M: 34670 Subs Hosp L2
[2020-04-29] MEDS: Potassium Chloride Oral Tablet 20 MEQ 60 MEQ PO (09:46)
[2020-04-29] MEDS: Enoxaparin 40 MG/0.4 ML Syringe SC (09:47)
[2020-04-29] MEDS: 0.9% Saline Lock 10 ML Syringe IV ×4 (09:47→21:41)
[2020-04-29] MEDS: Atenolol 50 MG Tablet PO (09:54)
[2020-04-29] MEDS: Lisinopril 20 MG Tablet PO (09:54)
[2020-04-29 12:16] LABS: Bedside Glucose 219 mg/dL (70-110)
[2020-04-29] MEDS: Nicotine Polacrilex 2 MG GUM PO ×3 (13:40→21:49)
--- NOTE | 2020-04-29 14:00 | CASEMGMT ---
RN CM Face to Face with patient for initial transition planning/care coordination assessment. RN CM introduced self and role at [facility]. Patient sitting in chair, alert and oriented. Patient willing to participate in assessment and is able to answer all questions appropriately. Care providers, pharmacy, and demographics verified. Patient wishes to discharge home, denies need for home health at this time. Patient states she has no further needs or concerns at this time. CM to follow for discharge planning needs that may arise. PCP: Perez Specialists: Marco Antonio dental mechanic Preferred Pharmacy: [facility] Insurance: [employer] Prescription Benefit: yes Living Will/HPOA: none LNOK: , daughter Living Arrangements: Patient lives with and daughter in a ranch style home with 2 steps to enter. Patient states she is independent for self care. Transportation: Daughter DME/HHC: Patient states she has shower chair, raised toilet, grab bars, wheelchair, and oxygen with portability at 4lpm through [employer]. Patient denies HHC Disposition Plan: Patient to discharge home with family support and follow-up plans in place. Ava CAZARES, RN, CM
[2020-04-29 16:25] LABS: Bedside Glucose 241 mg/dL (70-110)
[2020-04-29] MEDS: Ceftriaxone 1 GM/50 ML BAG IV (21:37)
[2020-04-29] MEDS: Atorvastatin Calcium 40 MG Tablet PO (21:40)
[2020-04-29 21:55] LABS: Bedside Glucose 271 mg/dL (70-110)
[2020-04-30 04:14] VITALS: BP 141/70; PULSE 93; RESP 18; TEMP 36.5; O2SAT 94
[2020-04-30] MEDS: Gabapentin 300 MG Capsule PO (05:21)
[2020-04-30] MEDS: Nicotine Polacrilex 2 MG GUM PO (05:21)
[2020-04-30] MEDS: busPIRone 5 MG Tablet PO (05:22)
[2020-04-30] MEDS: Acetaminophen 325 MG Tablet 650 MG PO (06:43)
[2020-04-30] MEDS: Insulin Lispro 100 UNIT/ML INSULN.PEN SC (06:44)
[2020-04-30 06:56] LABS: Bedside Glucose 293 mg/dL (70-110)
[2020-04-30 07:38] VITALS: O2SAT 96
--- NOTE | 2020-04-30 08:42 | DCINST_ITS ---
- Discharge Diagnoses Current Active Problems: Current Active and Chronic Problems (Last Updated 12/26/18 @ 12:49 by Zuleyka Rosenberg) Diabetes (Chronic) Cellulitis (Acute) Hx of partial nephrectomy (Chronic) Chronic back pain (Chronic) Tobacco dependence syndrome (Chronic) Morbid obesity (Chronic) Benign essential hypertension (Chronic) You will use the following diet at home:: Calorie/Carbohydrate Controlled (specify 1200, 1400, etc) - 1800 moses., Cardiac Your food should be the consistency of: Regular Discharge Activity: Return to Normal Activity Weight Bearing Status: Weight bearing as tolerated Call your doctor if you observe: Fever of 101 or Higher, Shortness of breath, Dizziness, Fainting spells, Chest pain, Increased palpitations (irregular heartbeat), Uncontrolled pain Additional Instructions: Elevate your left leg when you are sitting or laying flat Allergies/Adverse Reactions: Allergies tetanus and diphtheria toxoids Allergy (Unknown, Verified 04/28/20 22:48) swollen glands in neck that didn't decrease ketorolac tromethamine [From Toradol] Allergy (Verified 04/28/20 22:48) vivid dreams morphine Allergy (Verified 04/28/20 20:05) Itching Medications to take at Discharge Atenolol [Tenormin (beta maritza)] 50 mg PO DAILY 03/04/15 Furosemide [Lasix] 40 mg PO DAILY 03/04/15 Gabapentin [Neurontin] 300 mg PO TID 03/04/15 Lisinopril/Hydrochlorothiazide [Zestoretic /.5 Tablet] 2 tab PO DAILY 03/04/15 Venlafaxine XR [Effexor Xr] 225 mg PO DAILY 03/04/15 metFORMIN HCl [Glucophage] 1,000 mg PO BIDCM 03/04/15 albuterol sulfate 90 mcg/actuation breath activated powder inhaler 2 inh INHALATION Q4H PRN ea 12/26/18 aspirin 81 mg tablet,delayed release 81 mg PO DAILY 12/26/18 atorvastatin 40 mg tablet 40 mg PO QHS 12/26/18 dulaglutide 1.5 mg/0.5 mL subcutaneous pen injector 1.5 mg SC TH 12/26/18 ibuprofen 800 mg tablet 800 mg PO Q6H PRN 12/26/18 potassium chloride 10 mEq tablet,extended release 20 meq PO DAILY tab 12/26/18 Insulin Degludec [Tresiba Flextouch U-100] 88 unit SQ BID 09/01/19 Insulin Lispro [Humalog KwikPen] 40 unit SQ LUNCH 04/28/20 Insulin Lispro [Humalog KwikPen] 64 unit SQ BREAKFAST 04/28/20 Insulin Lispro [Humalog Kwikpen] 94 unit SC QHS 04/28/20 busPIRone [Buspar] 5 mg PO TID 04/28/20 Amox/Clavulanate Tablet [Augmentin Tablet] 875 mg PO Q12H #10 tablet 04/30/20 Smz/Tmp Ds [Bactrim Ds] 1 tablet PO BID #10 tablet 04/30/20 The following prescriptions were given: Amox/Clavulanate Tablet [Augmentin Tablet] 875 mg PO Q12H #10 tablet Transmission Status: Pending to [facility] Smz/Tmp Ds [Bactrim Ds] 1 tablet PO BID #10 tablet Transmission Status: Pending to [facility] Primary Care Physician: Samson Todd MD [Primary Care Provider] - Please follow up with your Primary Care Physician in: 1 week. Test Results: Test results from this visit will be discussed in further detail at your follow- up appointment, if applicable.
[2020-04-30 09:09] VITALS: BP 134/68; PULSE 83; RESP 18; TEMP 36.5; O2SAT 98
[2020-04-30] MEDS: hydroCHLOROthiazide 12.5mg 12.5 MG PO (09:13)
[2020-04-30] MEDS: Venlafaxine XR 75 MG Capsule 225 MG PO (09:13)
[2020-04-30] MEDS: metFORMIN HCl 1,000 MG Tablet 1000 MG PO (09:13)
[2020-04-30] MEDS: Aspirin E.C. 81 MG Tablet PO (09:13)
[2020-04-30] MEDS: Potassium Chloride Oral Tablet 20 MEQ PO (09:13)
[2020-04-30] MEDS: Enoxaparin 40 MG/0.4 ML Syringe SC (09:14)
[2020-04-30] MEDS: Atenolol 50 MG Tablet PO (09:14)
[2020-04-30] MEDS: Furosemide 40 MG Tablet PO (09:14)
[2020-04-30] MEDS: Lisinopril 20 MG Tablet PO (09:14)
[2020-04-30 10:03] LABS: Vancomycin, Trough Level 9.6 ug/mL (5.0-15.0)
--- NOTE | 2020-04-30 10:23 | PHA.DC.MC ---
Pharmacy Service has performed discharge medication reconciliation and counseling for this patient. 1. AUGMENTIN 875MG PO BID X 5 DAYS 2. BACTRIM DS BID X 5 DAYS The patient's discharge medication list was reviewed for discrepancies and discrepancies were resolved. Home Medications Atenolol [Tenormin (beta maritza)] 50 mg PO DAILY 03/04/15 Furosemide [Lasix] 40 mg PO DAILY 03/04/15 Gabapentin [Neurontin] 300 mg PO TID 03/04/15 Lisinopril/Hydrochlorothiazide [Zestoretic 20/12.5 Tablet] 2 tab PO DAILY 03/04/15 Venlafaxine XR [Effexor Xr] 225 mg PO DAILY 03/04/15 metFORMIN HCl [Glucophage] 1,000 mg PO BIDCM 03/04/15 albuterol sulfate 90 mcg/actuation breath activated powder inhaler 2 inh INHALATION Q4H PRN ea 12/26/18 aspirin 81 mg tablet,delayed release 81 mg PO DAILY 12/26/18 atorvastatin 40 mg tablet 40 mg PO QHS 12/26/18 dulaglutide 1.5 mg/0.5 mL subcutaneous pen injector 1.5 mg SC TH 12/26/18 ibuprofen 800 mg tablet 800 mg PO Q6H PRN 12/26/18 potassium chloride 10 mEq tablet,extended release 20 meq PO DAILY tab 12/26/18 Insulin Degludec [Tresiba Flextouch U-100] 88 unit SQ BID 09/01/19 Insulin Lispro [Humalog KwikPen] 40 unit SQ LUNCH 04/28/20 Insulin Lispro [Humalog KwikPen] 64 unit SQ BREAKFAST 04/28/20 Insulin Lispro [Humalog Kwikpen] 94 unit SC QHS 04/28/20 busPIRone [Buspar] 5 mg PO TID 04/28/20 Amox/Clavulanate Tablet [Augmentin Tablet] 875 mg PO Q12H #10 tablet 04/30/20 Smz/Tmp Ds [Bactrim Ds] 1 tablet PO BID #10 tablet 04/30/20 The patient was counseled on the following discharge medications and changes in medications for homegoing were reviewed. The Reason for Use, instructions for use, and potential side effects were reviewed for all new medications. The patient's questions regarding all of their medications were answered. The patient was able to verbally demonstrate an understanding of their discharge medications.
--- NOTE | 2020-04-30 10:36 | PCM.DC.SUM ---
Discharge Date and Diagnosis - Problem List Patient Problems: Active and Suspected Problems (Last Updated 12/26/18 @ 12:49 by Zuleyka Rosenberg) Cellulitis (Acute) Date of Admission: 04/28/20 Date of Discharge: 04/30/20 - Primary Discharge Diagnosis Acute Problems: Active Problems (Last Updated 12/26/18 @ 12:49 by Zuleyka Rosenberg) #1 acute left leg cellulitis. #2 hypokalemia. Replaced and corrected. - Secondary Discharge Diagnosis Chronic Problems: Chronic Problems (Last Updated 12/26/18 @ 12:49 by Zuleyka Rosenberg) Diabetes (Chronic) Hx of partial nephrectomy (Chronic) Chronic back pain (Chronic) Tobacco dependence syndrome (Chronic) Morbid obesity (Chronic) Benign essential hypertension (Chronic) Hospital Course and Treatment Imaging Results: Clinical Impression(s) from Imaging Studies Venous Duplex 04/28/20 20:15 IMPRESSION: Normal venous Doppler ultrasound of the lower extremity. Electronically Signed: Leeroy Garrett MD at 21:28 EDT , Service support , Operations: appendectomy Procedures: None Summary of Care Provided: Patient seen and examined on the day of discharge and appeared to be stable to be discharged home. Swelling and erythema of the left leg remained almost the same and it is attributed to dependent edema in addition to cellulitis. Patient remained afebrile, no leukocytosis. Other vital signs were stable. The patient is a 54 year old F presented to the emergency room because of left leg pain and redness and she was found to have acute left leg cellulitis. Her routine blood work was remarkable for minimal leukocytosis and hypokalemia. Her potassium was replaced and corrected. Her lactic acid was 2.8 on admission which came down to 1.1 with IV fluids. Although her lactic acid was elevated, there was no evidence of sepsis or severe sepsis. Venous Doppler of the left leg done and showed no acute DVT. Patient was treated with IV vancomycin. WBC went back to normal. Swelling and erythema of the left leg improved and also was contributed to the dependent edema which is chronic. Blood culture showed no growth up to date after discharge. Patient discharged home in a stable medical condition, discharged on Augmentin and Bactrim DS for 5 days treatment to complete total of 7 days of treatment, continued on her previous home medications without any changes, continued on oxygen at 4 L which is her baseline at home, recommended follow-up with PCP in 1 week. Patient Problems: Active and Suspected Problems (Last Updated 12/26/18 @ 12:49 by Zuleyka Rosenberg) Cellulitis (Acute) - Physical Exam Vitals/I&O's: Vital Signs Temp Pulse Resp BP Pulse Ox 97.7 F L 83 18 134/68 H 98 04/30/20 09:09 04/30/20 09:09 04/30/20 09:09 04/30/20 09:09 04/30/20 09:09 Oxygen Flow Rate (L/min) 4 Oxygen Delivery Method Nasal Cannula Weight: 333 lb 1.895 oz Body Mass Index (BMI) 55.4 Finger Stick Blood Glucose 242 Intake and Output for Last 24 Hours 04/28/20 04/29/20 04/30/20 23:59 23:59 23:59 Intake Total 550 / 550 2025 / 2025 935 / 935 Output Total 800 / 800 500 / 500 Balance 550 / 550 1225 / 1225 435 / 435 General: Alert, Oriented x3, Cooperative, No apparent distress HEENT: Atraumatic, PERRLA, EOMI, Normocephalic Oral: Moist Mucosa, No Gingival or Mucosal Lesions/ Ulcerations Neck: Supple, No JVD, Negative Carotid Bruits, Trachea Midline, Thyroid Normal Size and Texture Lungs: Clear to auscultation, No rhonchi, No wheeze, No rales, Diminished Cardiovascular: Regular rate, Regular Rhythm, Normal S1, Normal S2, PMI Normal Abdomen: Bowel Sounds Present, Soft, Non Tender, Non-Distended, No Hepato-splenomegaly, Obese Extremities: No clubbing, No cyanosis, Edema Skin: No rashes, No breakdown Lymphatic: No Cervical, Supraclavicular, or Inguinal Adenopathy Neurological: Cranial nerves II-XII grossly intact, Neuro grossly intact Psych/Mental Status: Normal Affect, Appropriate Laboratory Results 04/29/20 11:11: POC Glucose 219 H 04/29/20 16:08: POC Glucose 241 H 04/29/20 21:37: POC Glucose 271 H 04/30/20 06:42: POC Glucose 293 H 04/30/20 09:24: Vancomycin Trough 9.6 Current Medications Acetaminophen (Acetaminophen 325 Mg Tablet) 650 mg PO Q6H PRN PRN PRN Reason: Pain Score 1-10/Temp > 100.7 F Last Admin: 04/30/20 06:43 Dose: 650 mg Documented by: Albuterol Sulfate (Albuterol 2.5 Mg/3 Ml Vial.Neb.) 2.5 mg INHALATION Q4H PRN PRN PRN Reason: WHEEZING Aspirin (Aspirin E.C. 81 Mg Tablet) 81 mg PO DAILY [facility] Last Admin: 04/30/20 09:13 Dose: 81 mg Documented by: Atenolol (Atenolol 50 Mg Tablet) 50 mg PO DAILY [facility] Last Admin: 04/30/20 09:14 Dose: 50 mg Documented by: Atorvastatin Calcium (Atorvastatin Calcium 40 Mg Tablet) 40 mg PO QHS [facility] Last Admin: 04/29/20 21:40 Dose: 40 mg Documented by: Buspirone HCl (Buspirone 5 Mg Tablet) 5 mg PO TID [facility] Last Admin: 04/30/20 05:22 Dose: 5 mg Documented by: Enoxaparin Sodium (Enoxaparin 40 Mg/0.4 Ml Syringe) 40 mg SC DAILY [facility] Last Admin: 04/30/20 09:14 Dose: 40 mg Documented by: Furosemide (Furosemide 40 Mg Tablet) 40 mg PO DAILY [facility] Last Admin: 04/30/20 09:14 Dose: 40 mg Documented by: Gabapentin (Gabapentin 300 Mg Capsule) 300 mg PO TID [facility] Last Admin: 04/30/20 05:21 Dose: 300 mg Documented by: Hydrochlorothiazide (Hydrochlorothiazide 12.5mg) 12.5 mg PO DAILY [facility] Last Admin: 04/30/20 09:13 Dose: 12.5 mg Documented by: Vancomycin IV Pharmacy to Dose (1 ea/ Sodium Chloride) 500 mls @ 250 mls/hr IV X1 PRN; Protocol PRN Reason: Rx to Dose Ceftriaxone Sodium (Rocephin) 1 gm in 50 mls @ 100 mls/hr IV Q24H [facility] Last Infusion: 04/29/20 22:23 Dose: Infused Documented by: Vancomycin HCl 1,750 mg/ (Sodium Chloride) 535 mls @ 250 mls/hr IV Q12H [facility] Last Admin: 04/30/20 09:59 Dose: 250 mls/hr Documented by: Ibuprofen (Ibuprofen 400 Mg Tablet) 800 mg PO Q6H PRN PRN PRN Reason: PAIN -10 Insulin Glargine (Insulin Glargine 100 Units/Ml Pen) 88 units SC BID [facility] Last Admin: 04/30/20 09:19 Dose: 88 units Documented by: Insulin Human Lispro (Insulin Lispro 100 Unit/Ml Insuln.Pen) 0 unit SC ACHS [facility]; Protocol Last Admin: 04/30/20 06:44 Dose: 9 u Documented by: Lisinopril (Lisinopril 20 Mg Tablet) 20 mg PO DAILY [facility] Last Admin: 04/30/20 09:14 Dose: 20 mg Documented by: Metformin HCl (Metformin Hcl 1,000 Mg Tablet) 1,000 mg PO BIDCM [facility] Last Admin: 04/30/20 09:13 Dose: 1,000 mg Documented by: Nicotine (Nicotine 21 Mg Patch) 21 mg TD DAILY [facility] Last Admin: 04/30/20 09:15 Dose: Not Given Documented by: Nicotine Polacrilex (Nicotine Polacrilex 2 Mg Gum) 2 mg PO Q4H PRN PRN PRN Reason: Nicotine Craving Last Admin: 04/30/20 05:21 Dose: 2 mg Documented by: Potassium Chloride (Potassium Chloride Oral Tablet 20 Meq) 20 meq PO DAILY [facility] Last Admin: 04/30/20 09:13 Dose: 20 meq Documented by: Sodium Chloride (0.9% Saline Lock 10 Ml Syringe) 10 - 40 ml IV UD PRN PRN Reason: SALINE FLUSH Last Admin: 04/29/20 21:41 Dose: 10 ml Documented by: Venlafaxine HCl (Venlafaxine Xr 75 Mg Capsule) 225 mg PO DAILY [facility] Last Admin: 04/30/20 09:13 Dose: 225 mg Documented by: Discharge Activity: Return to Normal Activity Weight Bearing Status: Weight bearing as tolerated Call your doctor if you observe: Fever of 101 or Higher, Shortness of breath, Dizziness, Fainting spells, Chest pain, Increased palpitations (irregular heartbeat), Uncontrolled pain Home Medications: Medications to take at Discharge Atenolol [Tenormin (beta maritza)] 50 mg PO DAILY 03/04/15 Furosemide [Lasix] 40 mg PO DAILY 03/04/15 Gabapentin [Neurontin] 300 mg PO TID 03/04/15 Lisinopril/Hydrochlorothiazide [Zestoretic 20/.5 Tablet] 2 tab PO DAILY 03/04/15 Venlafaxine XR [Effexor Xr] 225 mg PO DAILY 03/04/15 metFORMIN HCl [Glucophage] 1,000 mg PO BIDCM 03/04/15 albuterol sulfate 90 mcg/actuation breath activated powder inhaler 2 inh INHALATION Q4H PRN ea 12/26/18 aspirin 81 mg tablet,delayed release 81 mg PO DAILY 12/26/18 atorvastatin 40 mg tablet 40 mg PO QHS 12/26/18 dulaglutide 1.5 mg/0.5 mL subcutaneous pen injector 1.5 mg SC TH 12/26/18 ibuprofen 800 mg tablet 800 mg PO Q6H PRN 12/26/18 potassium chloride 10 mEq tablet,extended release 20 meq PO DAILY tab 12/26/18 Insulin Degludec [Tresiba Flextouch U-100] 88 unit SQ BID 09/01/19 Insulin Lispro [Humalog KwikPen] 40 unit SQ LUNCH 04/28/20 Insulin Lispro [Humalog KwikPen] 64 unit SQ BREAKFAST 04/28/20 Insulin Lispro [Humalog Kwikpen] 94 unit SC QHS 04/28/20 busPIRone [Buspar] 5 mg PO TID 04/28/20 Amox/Clavulanate Tablet [Augmentin Tablet] 875 mg PO Q12H #10 tablet 04/30/20 Smz/Tmp Ds [Bactrim Ds] 1 tablet PO BID #10 tablet 04/30/20 Following Prescriptions Were Given to Patient: Amox/Clavulanate Tablet [Augmentin Tablet] 875 mg PO Q12H #10 tablet Transmission Status: Received by [facility] Smz/Tmp Ds [Bactrim Ds] 1 tablet PO BID #10 tablet Transmission Status: Received by [facility] Primary Care Physician: Samson Todd MD [Primary Care Provider] - Please follow up with your Primary Care Physician in: 1 week. Disposition: Home Minutes spent on discharge:: 27 Patient Condition:: Stable Medical Necessity - Tobacco Use Smoking Status: Current every day smoker Tobacco Use: Cigarettes Meaningful Use Info Meaningful Use Diagnoses (Choose all that apply): None applicable Inpatient E&M: 37056 [facility]
[2020-04-30 11:45] VITALS: BP 134/68; PULSE 83; RESP 18; TEMP 36.5; O2SAT 98
--- NOTE | 2020-04-30 11:55 | NURSING ---
LATE ENTRY - 1030 - IV TRAV DAVIS DC'Bobo. DR NATARAJAN NOTIFIED PT'S VANCOMYCIN NOT COMPLETE. DC HOME ORDER.
== END 2020-04-30 11:50 | disposition home or self-care (01) | DRG 383 ==
LOC: ED 20:40 → MS3 22:39
PROVIDERS: Admitting Provider Family Medicine; Emergency Provider Emergency Medicine; PCP Family Medicine; Visit Provider Hospitalist
DX: L03.116 Cellulitis of left lower limb (principal); E87.6 Hypokalemia; J44.9 Chronic obstructive pulmonary disease, unspecified; Z68.43 Body mass index [BMI] 50.0-59.9, adult; E66.01 Morbid (severe) obesity due to excess calories; E11.9 Type 2 diabetes mellitus without complications; I10 Essential (primary) hypertension; G89.29 Other chronic pain; M54.9 Dorsalgia, unspecified; J96.10 Chronic respiratory failure, unspecified whether with hypoxia or hypercapnia; Z79.4 Long term (current) use of insulin; Z79.899 Other long term (current) drug therapy; Z99.81 Dependence on supplemental oxygen; F17.210 Nicotine dependence, cigarettes, uncomplicated; Z79.82 Long term (current) use of aspirin
CPT/HCPCS: 36415; 80048; 80053; 80202; 82962; 83605; 85025; 87040; 93971; 96361; 96365; 96366; 96367; 96372; 99218; 99285; 99406; J7030; J7040; 90686; A4216; G0378

== ENCOUNTER 2023-02-25 15:15 | Inpatient (IN) | payer MEDICAID, SELFPAY ==
[2023-02-25] VITALS (12 sets, daily range): BP systolic 129–171; BP diastolic 62–83; PULSE 84–102; RESP 18–25; TEMP 36.6–36.8; O2SAT 89–93; BMI 55.4; BMI 54.2
--- NOTE | 2023-02-25 15:33 | EKG12_ITS ---
Test Reason : SOB Blood Pressure : / mmHG Vent. Rate : 090 BPM Atrial Rate : 090 BPM P-R Int : 210 ms QRS Dur : 080 ms QT Int : 362 ms P-R-T Axes : 064 083 065 degrees QTc Int : 442 ms Sinus rhythm with 1st degree A-V block Otherwise normal ECG Confirmed by ANANYA MALLOY, YARA ([id number]), assistant production editor RON SEARS ([id number]) on 02/28/2023 6:38:47 AM Referred By: ELIZABETH Confirmed By:YARA HARE MD
--- NOTE | 2023-02-25 15:38 | ED.VIS.DYS ---
HPI History of Present Illness Chief Complaint: Shortness of Breath Informant: patient Narrative Narrative: Patient presents with dyspnea and cough. Patient states she started having symptoms 3 to 4 days ago. She has COPD. She is on 2 L. She states she has inhalers but no home respiratory treatments. She is on Lasix 40 a day this has not changed. But she denies a history of CHF. She states the last 3 to 4 days she has been coughing more. She is bringing up more material but does not know what it looks like. She states she has not seen blood. She has never had chest pain with it. She has felt hot and cold but has not actually checked her temperature. [facility] Medical History Degenerative disc disease Depression HTN (hypertension) IBS (irritable bowel syndrome) Microalbuminuria Obesity Panic disorder Sleep apnea Type 2 diabetes mellitus Urinary calculus Home Medications atenolol 50 mg tablet 50 mg PO DAILY BP 03/04/15 [History Last Taken 04/28/20 08:00] furosemide 40 mg tablet 40 mg PO DAILY water retention 03/04/15 [History Last Taken 04/28/20 08:00] gabapentin 300 mg capsule 300 mg PO TID nerve pain 03/04/15 [History Last Taken 04/28/20 17:00] lisinopril 20 mg-hydrochlorothiazide 12.5 mg tablet 2 tab PO DAILY BP 03/04/15 [History Last Taken 04/28/20 08:00] metformin 500 mg tablet 1,000 mg PO BIDCM diabetes 03/04/15 [History Last Taken 04/28/20 17:00] venlafaxine 150 mg capsule,extended release 24 hr 225 mg PO DAILY mood 03/04/15 [History Last Taken 04/28/20 08:00] albuterol sulfate 90 mcg/actuation breath activated powder inhaler 2 inh inhalation Q4H PRN Wheezing 12/26/18 [History Last Taken Unknown] aspirin 81 mg tablet,delayed release (Adult Low Dose Aspirin) 81 mg PO DAILY [facility] 12/26/18 [History Last Taken 04/28/20 08:00] atorvastatin 40 mg tablet 40 mg PO QHS cholesterol 12/26/18 [History Last Taken 04/27/20 22:00] dulaglutide 1.5 mg/0.5 mL subcutaneous pen injector (Trulicity) 1.5 mg subcut TH diabetes 12/26/18 [History Last Taken 04/24/20 12:00] ibuprofen 800 mg tablet 800 mg PO Q6H PRN Pain Or Fever 12/26/18 [History Last Taken Unknown] potassium chloride 10 mEq tablet,extended release (K-Tab) 20 meq PO DAILY supplement 12/26/18 [History Last Taken 04/28/20 08:00] insulin degludec 100 unit/mL (3 mL) subcutaneous pen 88 unit SQ BID diabetes 09/01/19 [History Last Taken 04/28/20 17:00] buspirone 5 mg tablet 5 mg PO TID mood 04/28/20 [History Last Taken 04/28/20 17:00] insulin lispro 100 unit/mL subcutaneous pen 40 unit SQ LUNCH diabetes 04/28/20 [History Last Taken 04/28/20 12:00] insulin lispro 100 unit/mL subcutaneous pen 64 unit SQ BREAKFAST diabetes 04/28/20 [History Last Taken 04/28/20 08:00] insulin lispro 100 unit/mL subcutaneous pen 94 unit subcut QHS diabetes 04/28/20 [History Last Taken 04/28/20 17:00] amoxicillin 875 mg-potassium clavulanate 125 mg tablet 875 mg (0.875 x 875-125 mg) PO Q12H #10 TABLETS 04/30/20 [Rx Last Taken Unknown] sulfamethoxazole 800 mg-trimethoprim 160 mg tablet 1 tablet PO BID #10 TABLETS 04/30/20 [Rx Last Taken Unknown] Allergy/AdvReac Type Severity Reaction Status Date / Time tetanus and diphtheria Allergy Unknown swollen Verified 02/25/23 15:23 toxoids glands in neck that didn't decrease ketorolac tromethamine Allergy vivid Verified 02/25/23 15:23 [From Toradol] dreams morphine Allergy Itching Verified 02/25/23 15:23 Family History Aunt Diabetes Father Heart disease Sister Heart disease Grandfather Colon cancer Unknown Breast cancer Surgical History H/O dilation and curettage H/O lithotripsy History of renal stent Hx of cholecystectomy R lower portion of kidney removed repair of r arm fx Social History Smoking Status: Current some day smoker tobacco type: cigarettes alcohol intake: never substance use type: does not use ROS ROS ED ROS Narrative A complete review of systems was performed and is negative except as documented in the history of present illness. Some specific details below. Constitutional: No recent measured fevers but she has had chills intermittently which is new. EYE: No discharge, visual complaints, or pain. ENT: No difficulty swallowing. No swelling. No pain. No reflux symptoms. CV: She denies palpitations or chest pain. No syncope. Respiratory: See history of present illness. GI: No abdominal pain. No nausea vomiting diarrhea. No blood in stool. Appetite has been somewhat down. : No frequency dysuria or hematuria. Musculoskeletal: No recent trauma. No pains. No swelling. Skin: No rash. Nondiaphoretic. Neuro: No weakness or numbness. Endocrine: No polyuria or polydipsia. EXAM Physical Exam Narrative Exam Narrative: CONSTITUTIONAL: Patient is nontoxic in appearance. The patient looks comfortable. Work of breathing looks increased. HEENT: No notable trauma. Mucous membranes moist. No sinus tenderness. No indication of pain with swallowing. EYES: Mild conjunctival injection. Mild proptosis. NECK:No JVD. No stridor. CARDIOVASCULAR: Regular rate. Regular rhythm. No notable murmur. No JVD. Her rate is about 90 on the monitor and appears to be sinus. No ectopy is noted. RESPIRATORY: No respiratory distress but there is an increased work of breathing. She is satting about 90% on 4 L which is twice her baseline and this is just sitting still. Her lungs are quite quiet. I do not hear rales rhonchi or wheezing. But I do not hear much air motion at all. GASTROINTESTINAL: Obese but not distended. Bowel sounds are normal. No tenderness. No guarding. No rebound. No palpable mass. No bruit is heard. GENITOURINARY: No tenderness over the bladder. No CVA tenderness. MUSCULOSKELETAL: Atraumatic. No notable peripheral edema. NEUROLOGICAL: Patient is alert and appropriate. No focal deficit noted. She is not at all sleepy or lethargic. SKIN: No noted rashes. No diaphoresis. PSYCHIATRIC: Patient is calm. Mood is appropriate. Const Vital Signs: 02/25/23 15:19 02/25/23 15:28 02/25/23 15:28 Temperature 97.9 F 97.9 F Temperature Source Temporal Temporal Pulse Rate 90 90 90 Respiratory Rate 24 H 22 H 18 Respiratory Effort Respiratory Pattern Blood Pressure 129/83 H 129/83 H 129/83 H Blood Pressure Mean 98 98 98 Pulse Ox 91 93 91 Oxygen Delivery Method Nasal Cannula Nasal Cannula Nasal Cannula Oxygen Flow Rate (L/min) 4 4 02/25/23 15:32 02/25/23 15:35 02/25/23 15:51 Temperature Temperature Source Pulse Rate 89 Respiratory Rate 20 H Respiratory Effort Short of Breath Labored Respiratory Pattern Tachypnea Blood Pressure Blood Pressure Mean Pulse Ox 90 Oxygen Delivery Method Nasal Cannula Nasal Cannula Oxygen Flow Rate (L/min) 4 4 02/25/23 17:16 Temperature Temperature Source Pulse Rate 88 Respiratory Rate 24 H Respiratory Effort Respiratory Pattern Blood Pressure 143/66 H Blood Pressure Mean 91 Pulse Ox 92 Oxygen Delivery Method Nasal Cannula Oxygen Flow Rate (L/min) 5 MDM MDM MDM Narrative Medical decision making narrative: My independent interpretation of the patient's single AP chest x-ray shows cardiomegaly what appears to be a left effusion bilateral infiltrates. Some of this is due to the body habitus. When I compare this with her prior from 09/02/2019, it does look similar. Final reading is pending. 04: 00 I rechecked the patient. She is still using a aerosol. She is actually starting to move air now. There is expiratory wheezing. She is feeling a bit better. CBC shows mild elevation of white count at 16.2 Metabolic panel shows mildly high carbon dioxide. No other marked abnormalities. BNP is normal at 55.2. Lactic acid is normal at 1.6. We attempted walking the patient. Just standing up on the edge of the bed she had 81% without even walking. She was placed on nonrebreather and then she is weaned down to 5 L and we are weaning her back to 4 L. She will need to be admitted. I think this is primarily COPD. With her increased cough sputum production and white count we will treat with antibiotics also. Lab Data Attestation: I reviewed the patient's lab results. Labs: Laboratory Results - last 24 hr 02/25/23 15:35 WBC 16.2 H RBC 5.13 Hgb 13.5 Hct 45.6 MCV 88.9 MCH 26.3 L MCHC 29.6 L RDW Std Deviation 44.9 H RDW Coeff of Ramy 13.7 Plt Count 267 MPV 9.9 Immature Gran % (Auto) 0.600 Neut % (Auto) 79.4 H Lymph % (Auto) 11.1 L [place] % (Auto) 7.2 Eos % (Auto) 1.1 Baso % (Auto) 0.6 Absolute Neuts (auto) 12.9 H Absolute Lymphs (auto) 1.79 Nucleated RBC % 0 Sodium 140 Potassium 3.9 Chloride 98 Carbon Dioxide 38.0 H Anion Gap 4 L BUN 30 H Creatinine 0.70 Estim Creat Clear Calc 134.13 Est GFR (MDRD) Af Amer 110 Est GFR (MDRD) Non-Af 91 BUN/Creatinine Ratio 42.6 H Glucose 261 H Lactic Acid 1.6 Calcium 8.6 B-Natriuretic Peptide 55.2 Radiography Diagnostic Testing: Clinical Impression(s) from Imaging Studies Chest X-Ray 02/25/23 15:41 IMPRESSION: Mild CHF or interstitial infiltrates Electronically Signed: Dakota Montague MD at 16:51 EST Reading Location ID and State: [address] [place] [address] Tel , Service support , EKG Initial EKG: Comments: My independent interpretation of the patient's EKG shows sinus rhythm with first-degree AV block overall rate is 90. No ventricular ectopy. There is nonspecific ST and T wave change but no sign of infarct or ischemia. DC interval is slightly long. However, QRS duration and QTc are normal. Management Discussion w/another healthcare provider: Hospitalist Discharge Plan Triage Chief Complaint: Shortness of Breath ED Provider: Desmond Infante Dx/Rx/DC Orders Clinical Impression: COPD with acute exacerbation, Morbid obesity, Hypoxia, Tobacco abuse Prescriptions: No Action Trulicity 1.5 mg/0.5 mL pen injector 1.5 mg SC TH potassium chloride [K-Tab] 10 mEq tablet extended release 20 meq PO DAILY atorvastatin 40 mg tablet 40 mg PO QHS albuterol sulfate 90 mcg/actuation aerosol powdr breath activated 2 inh INHALATION Q4H PRN (Reason: Wheezing) ibuprofen 800 mg tablet 800 mg PO Q6H PRN (Reason: Pain Or Fever) aspirin [Adult Low Dose Aspirin] 81 mg tablet,delayed release (DR/EC) 81 mg PO DAILY furosemide 40 MG tablet 40 mg PO DAILY metformin 500 MG tablet 1,000 mg PO BIDCM lisinopril-hydrochlorothiazide 1 TABLET tablet 2 tab PO DAILY venlafaxine 150 MG capsule 225 mg PO DAILY gabapentin 300 MG capsule 300 mg PO TID atenolol 50 MG tablet 50 mg PO DAILY insulin degludec 100 UNIT/ML insulin pen 88 unit SQ BID buspirone 5 MG tablet 5 mg PO TID insulin lispro 100 UNIT/ML insulin pen 64 unit SQ BREAKFAST Rx Instructions: 62/40/94 insulin lispro 100 UNIT/ML insulin pen 40 unit SQ LUNCH Rx Instructions: takes at noon insulin lispro 100 UNIT/ML insulin pen 94 unit SC QHS amoxicillin-pot clavulanate 875 MG tablet 875 mg PO Q12H Qty: 10 0RF sulfamethoxazole-trimethoprim 1 TABLET tablet 1 tablet PO BID Qty: 10 0RF Primary Care Provider: Samson Todd Referrals: Samson Todd MD [Primary Care Provider] - Disposition Disposition: Acute Care Hospital [facility]
--- NOTE | 2023-02-25 15:41 | RAD_ITS ---
STUDY: X-RAY CHEST REASON FOR EXAM: Female, 57 years old. cough TECHNIQUE: Single frontal view of the chest. COMPARISON: September 02, 2019 FINDINGS: Mild edema or interstitial infiltrates. There is no demonstrated pleural abnormality. Cardiomegaly. Normal mediastinum and ravi. Normal visualized pulmonary arteries. Normal visualized aortic arch and descending thoracic aorta. Normal visualized thoracic spine. Normal visualized ribs, clavicles, and shoulders. There is no demonstrated abnormality of the visualized soft tissue structures of the upper abdomen. RAD/Chest 1 View (Portable) IMPRESSION: Mild CHF or interstitial infiltrates Electronically Signed: Dakota Montague MD at 16:51 EST ,
[2023-02-25] MEDS: Albuterol 2.5 MG/3 ML VIAL.NEB. INHALATION ×2 (15:49→17:59)
[2023-02-25] MEDS: Ipratropium/Albuterol Sulfate 3 ML AMPUL.NEB INHALATION ×2 (15:49→21:57)
[2023-02-25 15:53] LABS: Absolute Lymphocyte Count 1.79 X10^3/uL (0.83-4.51); Absolute Neutrophil Count 12.9 X10^3/uL (2.0-7.7); Basophil# 0.09 X10^3/uL; Basophil% 0.6 % (0-1); Eosinophil# 0.18 X10^3/uL; Eosinophils% 1.1 % (0-5); Hematocrit 45.6 % (37-47); Hemoglobin 13.5 g/dL (12.0-15.0); Lymphocyte # 1.79 X10^3/ul (0.83-4.51); Lymphocyte % 11.1 % (19-41); Mean Corp Hgb Conc 29.6 g/dL (32-36); Mean Corpuscular Hgb 26.3 pg (27.0-32.0); Mean Corpuscular Volume 88.9 fL (81-99); Mean Platelet Vol. 9.9 fl (6.2-12.0); Monocyte# 1.16 X10^3/uL; Monocyte% 7.2 % (0-10); NRBC Flagged by Analyzer 0 % (0-5); Neutrophil # 12.86 X10^3/uL (2.7-7.7); Neutrophil % 79.4 % (47-70); Platelet Count 267 K/mm3 (150-450); RBC Distribution Width CV 13.7 % (11.6-14.6); RBC Distribution Width SD 44.9 fl (35.1-43.9); Red Blood Count 5.13 M/mm3 (4.2-5.4); White Blood Count 16.2 K/mm3 (4.4-11.0)
[2023-02-25] MEDS: MethylPREDNISolone 125 MG/2 ML Vial IV (15:54)
[2023-02-25 16:04] LABS: Anion Gap 4 (5-15); BUN 30 mg/dL (7-18); BUN/Creat Ratio 42.6 RATIO (10-20); Calcium,Total 8.6 mg/dL (8.5-10.1); Chloride 98 mmol/L (98-107); EST Glomerular Filtration Rate 91 mL/min (>60); Est Glom Filt Rate - Afr Amer 110 mL/min (>60); Estimated Creatinine Clearance 134.13 ml/min; Glucose 261 mg/dL (74-106); Potassium 3.9 mmol/L (3.5-5.1); Sodium Level 140 mmol/L (136-145)
[2023-02-25 16:12] LABS: Lactic Acid 1.6 mmol/L (0.4-1.9)
[2023-02-25] MEDS: Ibuprofen 200 MG Tablet 400 MG PO (16:13)
[2023-02-25 16:28] LABS: BNP,B-Type NATRIURETIC PEPTIDE 55.2 pg/mL (0-100)
--- OUTSIDE RECORDS SUMMARY | 2023-02-25 16:45 | XMS RPT_ITS | CCD ---
Author Name Unknown Address [address] [facility] [address] [place] [address] Organization [facility] Care Team Providers Care Donor Services Specialist Name Role Phone Samson Hogan MD Primary Care Provider [facility], [place] Unavailable Jovany Rizzo PA-C Primary Care Provider Samson Hogan MD Primary Care Provider [facility], [place] Unavailable Jovany Rizzo PA-C Primary Care Provider [facility], [place] Unavailable RizzoJovany sheldon PA-C Primary Care Provider [facility], [place] Unavailable Jovany Rizzo PA-C Primary Care Provider Jovany RIZZO Attending Unavailable Jovany RIZZO Primary Care Unavailable Jovany RIZZO Referring Unavailable RIZZOJovany SHELDON Primary Care Unavailable PATTI GALLEGOS Referring Unavailable RIZZOJovany Primary Care Unavailable PATTI GALLEGOS Attending Unavailable Jovany RIZZO Primary Care Unavailable Jovany RIZZO Attending Unavailable MATTHIAS M SALUD Primary Care Unavailable Jovany RIZZO Referring Unavailable Jovany RIZZO Primary Care Unavailable PILAR CARDOZA Attending Unavailable PATTI GALLEGOS Referring Unavailable RIZZO, Jovany BRANNON Primary Care Unavailable MARYANN ALEXANDER Referring Unavailable RIZZO, M SALUD Primary Care Unavailable RIZZO, M SALUD Primary Care Unavailable [facility], [place] Unavailable Allergies Allergy Classification Reported Allergen(s) Allergy Type Date of Onset Reaction(s) Facility (20 sources) Ketorolac; Translations: [KETOROLAC TROMETHAMINE] Drug Allergy 11-24-2007 [facility] Work Phone: (20 sources) Morphine; Translations: [MORPHINE] Drug Allergy 10-14-2010 Itching [facility] (20 sources) Tetanus And Diphtheria Toxoids, Adsorbed, Adult; Translations: [TETANUS AND DIPHTHERIA TOXOIDS, ADSORBED, ADULT] Drug Allergy 11-10-2012 Other: See Comments [facility] Work Phone: (18 sources) empagliflozin; Translations: [EMPAGLIFLOZIN] Drug Allergy 07-23-2022 Itching [facility] Medications Current Medications Medication Drug Class(es) Dates Sig (Normalized) Sig (Original) cephalexin 500 mg oral capsule (20 sources) Cephalosporin Antibacterial Start: 07-23-2022 End: 08-02-2022 take 1 capsule by mouth twice daily cephALEXin (KEFLEX) 500 mg capsule Take 1 capsule by mouth twice daily for 10 days. 20 capsule 0 07/23/2022 08/02/2022 Active Completed/Discontinued Medications Medication Drug Class(es) Dates Sig (Normalized) Sig (Original) acetaminophen 325 mg / HYDROcodone bitartrate 7.5 mg oral tablet (3 sources) Opioid Agonist Start: 05-21-2022 End: 05-24-2022 take 1 tablet by mouth every six hours as needed for pain HYDROcodone-Aceta minophen (NORCO) 7.5-325 mg per tablet Indications: Kidney stone Take 1 tablet by mouth every 6 hours as needed for pain for up to 3 days. 12 tablet 0 05/21/2022 05/24/2022 Problems Active Problems Problem Classification Problem Date Documented Da te Episodic/Chronic Anxiety disorders (20 sources) Panic disorder; Translations: [Panic disorder [episodic paroxysmal anxiety]] Onset: 11-10-2012 11-10-2012 Chronic Cancer of kidney and renal pelvis (20 sources) Malignant tumor of kidney; Translations: [Malignant neoplasm of unspecified kidney, except renal pelvis] Onset: 06-25-2015 06-25-2015 Chronic Cancer of kidney and renal pelvis (2 sources) Personal history of other malignant neoplasm of kidney; Translations: [History of malignant neoplasm of retroperitoneum] Onset: 05-13-2022 05-13-2022 Episodic Chronic obstructive pulmonary disease and bronchiectasis (20 sources) Chronic obstructive lung disease; Translations: [Chronic obstructive pulmonary disease, unspecified] Onset: 01-14-2020 01-14-2020 Chronic Diabetes mellitus with complications (7 sources) Type II diabetes mellitus uncontrolled; Translations: [Type 2 diabetes mellitus with hyperglycemia] Onset: 11-25-2022 Chronic Diabetes mellitus without complication (20 sources) Type 2 diabetes mellitus without complication; Translations: [Type 2 diabetes mellitus without complications] Onset: 11-10-2012 Chronic Disorders of lipid metabolism (20 sources) Mixed hyperlipidemia; Translations: [Mixed hyperlipidemia] Onset: 08-06-2016 Chronic Essential hypertension (20 sources) Essential hypertension; Translations: [Essential (primary) hypertension] Onset: 11-10-2012 Chronic Fluid and electrolyte disorders (4 sources) Hypokalemia; Translations: [Hypokalemia] Episodic Genitourinary symptoms and ill-defined conditions (11 sources) Microalbuminuria; Translations: [Proteinuria, unspecified] Onset: 05-21-2022 Episodic Mood disorders (20 sources) Depressive disorder; Translations: [Depression] 11-10-2012 Chronic Mood disorders (1 source) Mood disorders; Translations: [Depression, unspecified depression type] Onset: 11-10-2012 Other diseases of veins and lymphatics (1 source) Venous insufficiency of leg; Translations: [Venous insufficiency (chronic) (peripheral)] Episodic Other gastrointestinal disorders (20 sources) Irritable bowel syndrome; Translations: [Irritable bowel syndrome without diarrhea] 11-10-2012 Chronic Other gastrointestinal disorders (1 source) Irritable bowel syndrome without diarrhea; Translations: [Irritable bowel syndrome, unspecified type] Onset: 11-10-2012 Chronic Other hematologic conditions (8 sources) Erythrocytosis; Translations: [Secondary polycythemia] Onset: 11-25-2022 Episodic Other hematologic conditions (1 source) Secondary polycythemia; Translations: [Polycythemia] Onset: 11-25-2022 Episodic Other inflammatory condition of skin (1 source) Erythema; Translations: [Erythematous condition, unspecified] Episodic Other liver diseases (20 sources) Liver cyst; Translations: [Other specified diseases of liver] Onset: 10-25-2021 Chronic Other liver diseases (2 sources) Liver mass; Translations: [Hepatomegaly, not elsewhere classified] Episodic Other lower respiratory disease (1 source) Dyspnea; Translations: [Shortness of breath] Episodic Other non-traumatic joint disorders (1 source) Bilateral elbow joint pain; Translations: [Pain in right elbow] Episodic Other nutritional; endocrine; and metabolic disorders (20 sources) Body mass index 40+ - severely obese; Translations: [Morbid (severe) obesity due to excess calories] 04-26-2018 Chronic Other screening for suspected conditions (not mental disorders or infectious disease) (4 sources) Patient encounter status; Translations: [Encounter for screening mammogram for malignant neoplasm of breast] Episodic Other skin disorders (1 source) Dry skin; Translations: [Xerosis cutis] Episodic Other skin disorders (1 source) Xeroderma; Translations: [Xerosis cutis] 11-26-2022 Episodic Other upper respiratory infections (1 source) Acute maxillary sinusitis; Translations: [Acute maxillary sinusitis, unspecified] Episodic Peripheral and visceral atherosclerosis (20 sources) Peripheral vascular disease; Translations: [Peripheral vascular disease, unspecified] Onset: 12-27-2018 12-27-2018 Chronic Residual codes; unclassified (20 sources) Sleep apnea; Translations: [Sleep apnea, unspecified] 02-09-2021 Chronic Residual codes; unclassified (20 sources) Obstructive sleep apnea syndrome; Translations: [Obstructive sleep apnea (adult) (pediatric)] Chronic Residual codes; unclassified (1 source) Obstructive sleep apnea (adult) (pediatric); Translations: [Obstructive sleep apnea syndrome] Onset: 09-24-2021 Chronic Residual codes; unclassified (1 source) Reduced libido; Translations: [Decreased libido] Episodic Respiratory failure; insufficiency; arrest (adult) (20 sources) Chronic hypoxemic respiratory failure; Translations: [Chronic respiratory failure with hypoxia] Onset: 07-16-2021 07-16-2021 Chronic Skin and subcutaneous tissue infections (1 source) Paronychia of finger of left hand; Translations: [Cellulitis of left finger] 11-27-2022 Episodic Spondylosis; intervertebral disc disorders; other back problems (20 sources) Degeneration of lumbar intervertebral disc; Translations: [Other intervertebral disc degeneration, lumbar region] 02-09-2021 Chronic Substance-related disorders (3 sources) Tobacco dependence syndrome; Translations: [Nicotine dependence, unspecified, uncomplicated] Onset: 05-13-2022 11-27-2022 Chronic Thyroid disorders (3 sources) Thyroid nodule; Translations: [Nontoxic single thyroid nodule] Onset: 11-22-2022 11-27-2022 Chronic Unclassified (20 sources) ASA CLASS III Onset: 08-20-2009 08-20-2009 Past or Other Problems Problem Classification Problem Date Documented Da te Episodic/Chronic Abdominal hernia (20 sources) Hernia of abdominal cavity; Translations: [Other specified abdominal hernia without obstruction or gangrene] Onset: 12-08-2011 12-08-2011 Episodic Calculus of urinary tract (20 sources) Kidney stone; Translations: [Calculus of kidney] Onset: 05-03-2007 05-03-2007 Episodic Other aftercare (1 source) [facility] (current) use of insulin; Translations: [Type 2 diabetes mellitus without complication, with long-term current use of insulin (HCC)] Onset: 12-14-2014 Episodic Other and unspecified benign neoplasm (20 sources) Adenoma of right adrenal gland; Translations: [Benign neoplasm of right adrenal gland] Onset: 10-25-2021 Episodic Other diseases of kidney and ureters (20 sources) Hydronephrosis; Translations: [Unspecified hydronephrosis] Onset: 03-21-2008 03-21-2008 Episodic Other inflammatory condition of skin (1 source) Erythematous condition, unspecified; Translations: [Redness of skin] Onset: 07-23-2022 Episodic Other injuries and conditions due to external causes (20 sources) Foreign body in bladder and urethra; Translations: [Foreign body in bladder, initial encounter] Onset: 06-04-2008 06-04-2008 Episodic Other lower respiratory disease (20 sources) Multiple nodules of lung; Translations: [Other nonspecific abnormal finding of lung field] Onset: 09-24-2021 Episodic Other lower respiratory disease (2 sources) Other nonspecific abnormal finding of lung field; Translations: [Other nonspecific abnormal finding of lung field] Onset: 09-24-2021 Episodic Spondylosis; intervertebral disc disorders; other back problems (20 sources) Low back pain; Translations: [Lumbago] Onset: 01-03-2013 01-03-2013 Episodic Results Test Name Value Interpretation Reference Range Facil ity Vital Signs Date Time Vital Sign Value Performing Clinician Oumou gan 11-26-2022 09:38-0400 Body weight 144.7 kg NA Rizzo PA-C Work Phone: [facility] 11-26-2022 09:38-0400 Diastolic blood pressure 74 mm[Hg] NA Rizzo PA-C Work Phone: [facility] 11-26-2022 09:38-0400 Heart rate 71 /min NA Rizzo PA-C Work Phone: [facility] 11-26-2022 09:38-0400 Respiratory rate 16 /min NA Rizzo PA-C Work Phone: [facility] 11-26-2022 09:38-0400 SaO2% (BldA) [Mass fraction] 92 % NA Rizzo PA-C Work Phone: [facility] 11-26-2022 09:38-0400 Systolic blood pressure 130 mm[Hg] NA Rizzo PA-C Work Phone: [facility] 07-23-2022 09:30-0400 Body temperature 97.9 [degF] Maryann Benjamin HELPER ELECTRICAL.CREMATORY ATTENDANT Work Phone: [facility] 07-23-2022 09:30-0400 Diastolic blood pressure 78 mm[Hg] Maryann Benjamin HELPER ELECTRICAL.CREMATORY ATTENDANT Work Phone: [facility] 07-23-2022 09:30-0400 Heart rate 80 /min Maryann Benjamin HELPER ELECTRICAL.CREMATORY ATTENDANT Work Phone: [facility] 07-23-2022 09:30-0400 Respiratory rate 18 /min Maryann Benjamin HELPER ELECTRICAL.CREMATORY ATTENDANT Work Phone: [facility] 07-23-2022 09:30-0400 SaO2% (BldA) [Mass fraction] 98 % Maryann Benjamin HELPER ELECTRICAL.CREMATORY ATTENDANT Work Phone: [facility] 07-23-2022 09:30-0400 Systolic blood pressure 132 mm[Hg] Maryann Benjamin HELPER ELECTRICAL.CREMATORY ATTENDANT Work Phone: [facility] Encounters Encounter Date Encounter Type Care Provider Facility Start: 01-28-2023 Refpaul sheldon PA-C Work Phone: [facility] Arlene Procedures Date Procedure Procedure Detail Performing Clinician Start: 11-22-2022 Us soft tissue head & neck real time imge galina Rizzo PA-C Work Phone: Start: 05-13-2022 Ct thorax w/o contra st material Patti Gallegos MD Work Phone: Start: 03-31-2017 Mammography Leeroy bañuelos MD Work Phone: Plan of Treatment Date Care Activity Detail Author Start: 11-27-2023 Annual PCP Team Um Specialist salomon Disease Visit Annual PCP Team Chronic Disease Visit [facility] Start: 11-27-2023 Hepatitis B Vaccine (1 of 3 - 3-dose series) Hepatitis B Vaccine (1 of 3 - 3-dose series) [facility] Immunizations Immunization Date Immunization Notes Care Provider Fa cili 06-16-2021 COVID-19 vaccine, ag e 12+ yr ([employer]-[facility] PREVENTIVE MEDICINE - [facility]) Samson Hogan MD Work Phone: [facility] 04-29-2020 influenza, seasonal, injectable, preservative free Leeroy Jacobs MD Work Phone: [facility] Work Phone: 04-29-2020 influenza virus vacc ine, unspecified formulation MARIIA Rizzo PA-C Work Phone: [facility] 12-27-2018 influenza, injectabl e, quadrivalent, contains preservative Leeroy Jacobs MD Work Phone: [facility] 04-10-2018 influenza, injectabl e, quadrivalent, contains preservative Leeroy Jacobs MD Work Phone: [facility] 01-17-2017 influenza, injectabl e, quadrivalent, contains preservative Leeroy Jacobs MD Work Phone: [facility] 02-04-2016 influenza, injectabl e, quadrivalent, contains preservative Leeroy Jacobs MD Work Phone: [facility] 02-04-2016 pneumococcal polysaccharide vaccine, 23 valent Leeroy Jacobs MD Work Phone: [facility] 12-14-2014 influenza, injectabl e, quadrivalent, contains preservative Leeroy Jacobs MD Work Phone: [facility] 12-14-2014 influenza, seasonal, injectable Samson Hogan MD Work Phone: [facility] 12-10-2013 influenza, seasonal, injectable Leeroy Jacobs MD Work Phone: [facility] 11-10-2012 influenza virus vacc ine, unspecified formulation Leeroy Jacobs MD Work Phone: [facility] Payers Date Payer Category Payer Medicaid [id number] 2017 Medicaid [employer] [facility] MEDICA[facility] [id number] 2017-Present [phone] [address] [place] [address] Medicaid [id number] 2017 Medicaid [id number] 2017 Medicaid [id number] Social History Date Type Detail Facility Start: 12-06-1979 End: 03-11-2022 Tobacco smoking status MDIS Smokes tobacco daily [facility] Start: 12-06-1979 History of tobacco use Cigarette Smo ker [facility] Start: 01-19-2021 End: 11-26-2022 Alcohol intake Current non-drinker of alcohol (finding) [facility] Start: 11-15-2019 End: 07-10-2021 History SDOH Alcohol Frequency 1 [facility] Start: 11-15-2019 End: 07-10-2021 History SDOH Alcohol Std Drinks 98 [facility] Start: 08-01-2019 History SDOH Social Connections Phone 4 [facility] Start: 08-01-2019 End: 07-10-2021 History SDOH Social Connections Get Together 2 [facility] Start: 08-01-2019 End: 05-21-2022 History SDOH Social Connections Living 3 [facility] Start: 08-01-2019 End: 07-10-2021 History SDOH Physical Activity DPW 5 [facility] Start: 08-01-2019 Education 8 [facility] Start: 11-15-2019 Tobacco Comment 11/15/2019 10- 15 cigs/day. TO [facility] Start: 1965 Sex Assigned At Not on file C [facility] Start: 05-08-2021 End: 05-18-2021 Exposure to SARS-CoV-2 (event) Unable to assess [facility] Work Phone: Start: 04-20-2021 End: 07-10-2021 Exposure to SARS-CoV-2 (event) Not sure [facility] Start: 07-10-2021 History SDOH Physica l Activity DPW 0 [facility] Start: 07-16-2021 Tobacco Comment A pack or les s per day, depending on the day, 07/16/2021, TO [facility] Start: 07-16-2021 End: 08-11-2022 Cigarettes smoked current (pack per day) - Reported 2 [facility] Start: 07-16-2021 End: 03-11-2022 Tobacco use and exposure Smokeless tobacco non-user [facility] Work Phone: Start: 03-11-2022 Tobacco Comment [facility] Start: 05-21-2022 End: 08-11-2022 Social connection and isolation panel [facility] In a typical week, h ow many times do you talk on the telephone with family, friends, or neighbors? Patient refused [facility] Are you now , , , , never or living with a partner? Refused [facility] (I/We) worried juan miguel er (my/our) food would run out before (I/we) got money to buy more. DK or Refused [facility] Do you belong to any clubs or organizations such as moravian groups, unions, fraternal or athletic groups, or school groups? No [facility] Are you now , , , , never or living with a partner? [facility] How often to you hav e a drink containing alcohol? Never [facility] How hard is it for y ou to pay for the very basics like food, housing, medical care, and heating Somewhat hard [facility] Do you feel stress - tense, restless, nervous, or anxious, or unable to sleep at night because your mind is troubled all the time - these days [OSQ] Only a little [facility] (I/We) worried wheth er (my/our) food would run out before (I/we) got money to buy more. Never true [facility] In the past 12 month s, was there a time when you were not able to pay the mortgage or rent on time? Yes [facility] Medical Equipment Procedure Code Equipment Code Equipment Origin al Text Equipment Identifier Dates Stent Uret Inlay 7f X 28cm - [id number] Start: 08-26-2009 Clinical Notes 09-18-2009 to 01-28-2023 Telephone Encounter - Dhara Naylor RN - 01/28/2023 4:07 PM ESTTelephone Encounter - Marcy Pandya RN - 01/17/2023 12:03 PM ESTTelephone Encounter - Melissa Clements - 12/27/2022 9:24 AM EST Note Date & Type Note Facility 01-28-2023 Miscellaneous Notes Patient has been identified by name and date of : Yes Pharmacy phones for refill(s): Requested Prescriptions Pending Prescriptions Disp Refills gabapentin (NEURONTIN) 300 mg capsule 90 capsule 2 Sig: Take 1 capsule by mouth three times a day for 90 days. Appointment needed for further refills. Date of last office visit in primary care: 11/26/2022 Date of next office visit in primary care: not scheduled Dhara Naylor RN. documented in this encounter [facility] 01-17-2023 Miscellaneous Notes Patient calling to say she needs new script for Insulin. [facility] was out of medication and the script was transferred to [facility]. [facility] now has the medication in stock but they are asking patient for new script. Marcy Pandya RN Patient has been identified by name and date of : Yes, Provider Date Time Patient phones for refill(s): Requested Prescriptions Pending Prescriptions Disp Refills insulin lispro (HUMALOG) 200 unit/mL (3 mL) injection 3 Each 5 Si units am, 3 units afternoon, 93 units before evening meal Date of last office visit in primary care: 11/26/2022 Date of next office visit in primary care: Visit date not found Last 2 Encounter Wt Readings: Date: Wt: 11/26/2022 144.7 kg (319 lb) 07/23/2022 0 kg () Previous labs/tests for medication: Diabetes: Hemoglobin A1C (%) Date Value 05/13/2022 7.1 10/14/2021 8.4 10/22/2020 9.8 03/24/2020 10.3 Please advise. Thank you. Marcy Pandya RN. documented in this encounter [facility] 12-27-2022 Miscellaneous Notes Rosa Maria Ruiz Obduliajoe is calling Jovany Rizzo PA-C today requesting Insulin [place], Disposable, (ULTICARE PEN NEEDLE) 29 gauge x 1/2. Refill Request Patient has been identified by name and birthdate. Duration of symptoms: N/A Person calling: self Call patient at: on cell [phone] (home) [phone] (cell) Was an appointment scheduled: No Closing statement: Results or non-symptom based questions: Thank you for calling [facility], your call will be returned within the next business day. Melissa Clements documented in this encounter [facility] 11-27-2022 Miscellaneous Notes Discussed at OV. Thyroid nodule with radiologist recommend for FNA Telephone on 11/27/22 CONSULT TO GENERAL SURGERY Gigi Saini PA-C documented in this encounter [facility] 11-26-2022 Note HNO ID: [id number] Author: Jovany Rizzo PA-C Service: ? Author Type: Physician Film Composer Type: Progress Notes Filed: 11/27/2022 10:47 AM Note Text: 56 year old female with c/o annual physical, med review Current concerns Questions about FNA: discussed Anterior neck pain last few days Bites nails, has erythema and tenderness left middle finger Essential Hypertension: Current meds: Furosemide 40 mg daily Lisinopril hydrochlorothiazide 20-12.5 mg 2 tablets once daily Atenolol 50 mg daily Potassium chloride 10 mEq 2 tablets daily with breakfast Patient is compliant with meds Yes Monitors bp at home: Yes once in awhile. If yes, readings: 120/70 something Denies side effects: Yes. Chest pain: some sharp chest pain surfacy - always has that off and on, can pinpoint sore area on chest wall. Dyspnea: no but SOB with exertion, no issues laying down at night. Edema: nothing new or worse with chronic swelling L>R, some pitting. Palpitations: intermittent palpitations for years, usually in evenings. Syncope: No. Gets dizzy every once in awhile. Might stumble a little but no falls. Headache: No. Dizziness: Yes, mild. Last 3 Encounter BP Readings: Date: BP: 11/26/2022 130/74 09/30/2022 138/78 07/23/2022 132/78 Last 2 Encounter Wt Readings: Date: Wt: 11/26/2022 144.7 kg (319 lb) 07/23/2022 0 kg () Vitals 06/16/2021 07/23/2022 09/30/2022 11/26/2022 WEIGHT in POUNDS 325 lb 319 lb WEIGHT in KILOGRAMS 147.419 kg 144.697 kg Mixed hyperlipidemia: Current medication Atorvastatin 40 mg daily Taking medication consistently Yes Observing low cholesterol high fiber diet Yes Muscle aches chronic Stomach complaints/ diarrhea alternates with constipation, more on the latter. As soon as quits keto bread, gets constipated Last 2 Lipids: Component Latest Ref Rng AND Units 10/14/2021 05/13/2022 Cholesterol, Total <200 mg/dL 103 125 Triglyceride <150 mg/dL 224 (H) 250 (H) HDL Cholesterol >39 mg/dL 32 (L) 37 (L) Non HDL Cholesterol <130 mg/dL 71 88 Fasting Time hrs 12 10 VLDL Cholesterol <30 mg/dL 45 (H) 50 (H) TC:HDL Ratio <5.10 3.22 3.38 LDL Cholesterol <100 mg/dL 26 38 LDL:HDL Ratio <2.54 0.81 1.03 Pvd (peripheral vascular disease) (hcc) Current medications: ASA 81 mg daily 01/15/2022 PVR RABI 1.00, LABI 0.95 11/24/2018 US bilat leg arterial IMPRESSION RIGHT SIDE Right ankle brachial index: 1.01 Normal ankle brachial index at rest in the right leg. External iliac artery distal: patent . Common femoral artery : patent . Profunda femoral artery proximal: patent . Superficial femoral artery : patent . Popliteal artery : patent . Posterior tibial artery : patent . Peroneal artery : patent . Visualized in segments. Anterior tibial artery : patent . LEFT SIDE Left ankle brachial index: 0.95 Borderline abnormal ankle brachial index at rest. External iliac artery distal: patent . Common femoral artery : patent . Profunda femoral artery proximal: patent . Superficial femoral artery : patent . Popliteal artery : patent . Posterior tibial artery : patent . Peroneal artery : patent . Visualized in segments. Anterior tibial artery : patent . Can't walk more than 100 feet, back hurts and causes weakness in legs. Chronic hypoxemic respiratory failure (hcc) Chronic obstructive pulmonary disease, unspecified copd type (hcc) Obstructive sleep apnea syndrome Lung nodules Current medications: O2 2 L/min nasal cannula continuous CPAP 11 cm with 20-minute ramp and humidification Leaf Stamper: Has established with Dr. Gallegos. Interval history: 09/30/2022 Pilar MOON-Melia 05/13/2022 Right lung groundglass nodule is stable. No developing suspicious nodule or mass. Stable adenopathy. Stable bilateral adrenal nodules. New left thyroid nodule. Ultrasound recommended 07/16/2021 last visit with pulmonology: Stable 01/12/2021 CT chest WO: Multiple pulmonary nodules again identified, stable upper lung zones, right base nodules resolved with 3 nodules persistent but less discrete, groundglass appearance, new subcentimeter groundglass nodule right lower lobe. Current medications: Albuterol HFA 90 mcg 2 puffs every 4 hours. CPAP 11 cm nasal mask with 20-minute ramp and humidification O2 2 L/min nasal cannula Worsening shortness of breath: No. Cough: not much, coughs to clear throat periodicallyWheezing: Yes. Mild, off and on Smokin/2 PPD, goes outside to smoke. Tried patches for a while. Compliant with medications: Yes. Using rescue inhaler: none available- hasn't needed. CPAP: compliant Type 2 diabetes mellitus without complication, with long-term current use of insulin (hcc) Albuminuria Current medications: Lispro 200 unit: 66 units breakfast, 40 units lunch, 94 units dinner Insulin degludec 88 units subcu twice daily Dulaglutide 4.5 mg subcu weekly Metformin XR 500 mg 2 tablet twice daily with meals (more content not included)... [facility] 11-26-2022 History of Present illness Narrative 56 year old female with c/o annual physical, med review Current concerns Questions about FNA: discussed Anterior neck pain last few days Bites nails, has erythema and tenderness left middle finger Essential Hypertension: Current meds: Furosemide 40 mg daily Lisinopril hydrochlorothiazide 20-12.5 mg 2 tablets once daily Atenolol 50 mg daily Potassium chloride 10 mEq 2 tablets daily with breakfast Patient is compliant with meds Yes Monitors bp at home: Yes once in awhile. If yes, readings: 120/70 something Denies side effects: Yes. Chest pain: some sharp chest pain surfacy - always has that off and on, can pinpoint sore area on chest wall. Dyspnea: no but SOB with exertion, no issues laying down at night. Edema: nothing new or worse with chronic swelling L>R, some pitting. Palpitations: intermittent palpitations for years, usually in evenings. Syncope: No. Gets dizzy every once in awhile. Might stumble a little but no falls. Headache: No. Dizziness: Yes, mild. Last 3 Encounter BP Readings: Date: BP: 11/26/2022 130/74 09/30/2022 138/78 07/23/2022 132/78 Last 2 Encounter Wt Readings: Date: Wt: 11/26/2022 144.7 kg (319 lb) 07/23/2022 0 kg () Vitals 06/16/2021 07/23/2022 09/30/2022 11/26/2022 WEIGHT in POUNDS 325 lb 319 lb WEIGHT in KILOGRAMS 147.419 kg 144.697 kg Mixed hyperlipidemia: Current medication Atorvastatin 40 mg daily Taking medication consistently Yes Observing low cholesterol high fiber diet Yes Muscle aches chronic Stomach complaints/ diarrhea alternates with constipation, more on the latter. As soon as quits keto bread, gets constipated Last 2 Lipids: Component Latest Ref Rng & Units 10/14/2021 05/13/2022 Cholesterol, Total <200 mg/dL 103 125 Triglyceride <150 mg/dL 224 (H) 250 (H) HDL Cholesterol >39 mg/dL 32 (L) 37 (L) Non HDL Cholesterol <130 mg/dL 71 88 Fasting Time hrs 12 10 VLDL Cholesterol <30 mg/dL 45 (H) 50 (H) TC:HDL Ratio <5.10 3.22 3.38 LDL Cholesterol <100 mg/dL 26 38 LDL:HDL Ratio <2.54 0.81 1.03 Pvd (peripheral vascular disease) ([facility]) Current medications: ASA 81 mg daily 01/15/2022 PVR RABI 1.00, LABI 0.95 11/24/2018 US bilat leg arterial IMPRESSION RIGHT SIDE Right ankle brachial index: 1.01 Normal ankle brachial index at rest in the right leg. External iliac artery distal: patent . Common femoral artery : patent . Profunda femoral artery proximal: patent . Superficial femoral artery : patent . Popliteal artery : patent . Posterior tibial artery : patent . Peroneal artery : patent . Visualized in segments. Anterior tibial artery : patent . LEFT SIDE Left ankle brachial index: 0.95 Borderline abnormal ankle brachial index at rest. External iliac artery distal: patent . Common femoral artery : patent . Profunda femoral artery proximal: patent . Superficial femoral artery : patent . Popliteal artery : patent . Posterior tibial artery : patent . Peroneal artery : patent . Visualized in segments. Anterior tibial artery : patent . Can't walk more than 100 feet, back hurts and causes weakness in legs. Chronic hypoxemic respiratory failure (hcc) Chronic obstructive pulmonary disease, unspecified copd type (hcc) Obstructive sleep apnea syndrome Lung nodules Current medications: O2 2 L/min nasal cannula continuous CPAP 11 cm with 20-minute ramp and humidification Leaf Stamper: Has established with Dr. Gallegos. Interval history: 09/30/2022 Pilar Cardoza PA-C 05/13/2022 Right lung groundglass nodule is stable. No developing suspicious nodule or mass. Stable adenopathy. Stable bilateral adrenal nodules. New left thyroid nodule. Ultrasound recommended 07/16/2021 last visit with pulmonology: Stable 01/12/2021 CT chest WO: Multiple pulmonary nodules again identified, stable upper lung zones, right base nodules resolved with 3 nodules persistent but less discrete, groundglass appearance, new subcentimeter groundglass nodule right lower lobe. Current medications: Albuterol HFA 90 mcg 2 puffs every 4 hours. CPAP 11 cm nasal mask with 20-minute ramp and humidification O2 2 L/min nasal cannula Worsening shortness of breath: No. Cough: not much, coughs to clear throat periodicallyWheezing: Yes. Mild, off and on Smokin/2 PPD, goes outside to smoke. Tried patches for a while. Compliant with medications: Yes. Using rescue inhaler: none available- hasn't needed. CPAP: compliant Type 2 diabetes mellitus without complication, with long-term current use of insulin (hcc) Albuminuria Current medications: Lispro 200 unit: 66 units breakfast, 40 units lunch, 94 units dinner Insulin degludec 88 units subcu twice daily Dulaglutide 4.5 mg subcu weekly Metformin XR 500 mg 2 tablet twice daily with meals Taking medication as directed consistently? Yes Medical Issues / Complications: hypertension and hyperlipidemia Checking blood sugars at home? Off and on. Terrell 139 this morning. Average Terrell for month 171 Watching diet? Yes- doing fairly well . Does eat spaghetti. Doing keto most of the time with daughter. Physical Activity: Sedentary Hypoglycemic spells? Has had a couple lows at night. Any visual disturbance? No Chest pain? No New numbness, tingling or loss of sensation? Chronic in fingers, nothing new. Any recent foot problems, sores or rashes? No Any recent or sudden weight loss? Hasn't checked for awhile Change in urination? No. If yes: Any recent illness? Yes, URI Last eye exam: due. Last foot exam: due Hasn'tcompleted 2 sets of outstanding lab HBA1C: Hemoglobin A1C (%) Date Value 05/13/2022 7.1 10/14/2021 8.4 10/22/2020 9.8 03/24/2020 10.3 ) ) CMP: Glucose 210 05/13/2022 BUN 21 05/13/2022 Creatinine (POCT) 0.45 05/13/2022 Sodium 138 05/13/2022 Potassium 3.7 05/13/2022 Chloride 100 05/13/2022 CO2 32 05/13/2022 Protein, Total 7.2 05/13/2022 Albumin 3.7 05/13/2022 Calcium 9.8 05/13/2022 Alkaline Phosphatase 96 05/13/2022 Bilirubin, Total <0.2 05/13/2022 AST 10 05/13/2022 ALT 9 05/13/2022 Last 2 Encounter Wt Readings: Date: Wt: 06/16/2021 147.4 kg (325 lb) 11/07/2020 149.4 kg (329 lb 6.4 oz) Depression, unspecified depression type Anxiety Panic disorder Current medications: Buspirone 5 mg 3 times daily Venlafaxine ER 225 mg (150+75) daily Feels like anxiety is just part of her personality Feels down a few days each month. Worries about grandchildren who live with her. Worries constantly, playing out whole scenarios. Polycythemia Irritable bowel syndrome, unspecified type: A little different, only eating keto-bread, doing keto but not strictly due to cost . A little constipated. Affected by diabetic meds: diarrhea, constipation. Has on occasion been incontinent at night with feces: every few months if stomach upset with diarrhea. Has a lot of gas. HISTORIES FAMILY HISTORY Problem Relation Age of Onset COPD Mother Ischemic Heart Disease Father Ischemic Heart Disease Sister Colon Cancer Maternal Grandfather Diabetes Maternal Aunt Diabetes Paternal Aunt Breast Cancer Other Maternal cousin PAST MEDICAL HISTORY Diagnosis Date Chronic hypoxemic respiratory failure (HCC) 07/16/2021 Due to morbid obesity. COPD (chronic obstructive pulmonary disease) (HCC) with chronic hypoxemic respiratory failure; on oxygen 2 liters continuously Degenerative disc disease Depression Diabetes mellitus type II Dyslipidemia Hypertension IBS (irritable bowel syndrome) Microalbuminuria on adwoa inhibitor Obesity Palpitations Panic disorder Renal calculus Renal cell carcinoma of right kidney (HCC) 2009 S/P partial right nephrectomy Sleep apnea uses CPAP Tobacco abuse Urinary calculus, unspecified Renal stones PAST SURGICAL HISTORY Procedure Laterality Date APPENDECTOMY 09/02/2019 DILATION & CURETTAGE DX&/THER NONOBSTETRIC Dilation & curettage LAPAROSCOPY SURG CHOLECYSTECTOMY 2003 Cholecystectomy, lap LITHOTRIPSY XTRCORP SHOCK WAVE Lithotripsy x 2 Stents x 3 MRI ABDOMEN W/ & W/O CONTRAST 10/16/2021 10/16/2021 [facility] MRI w/wo IVCON: no patterns to suggest malignancy on enhancement. Normal portal and hepatic veins. Staghorn calculus in the left kidney upper pole, 3cm simple cyst attached to gallbladder duct, simple small liver cyst inferior right lobe, right adrenal adenoma with benign characteristics. OTHER right lower portion of kidney removed in 2009 PAST SURGICAL HISTORY OF Repair of right arm fx as child Social History Tobacco Use Smoking status: Every Day Packs/day: 2.00 Years: 38.00 Additional pack years: 0.00 Total pack years: 76.00 Types: Cigarettes Start date: 12/06/1979 Smokeless tobacco: Never Tobacco comments: Down to one ppd Vaping Use Vaping Use: Never used Substance Use Topics Alcohol use: No Drug use: No ACTIVE PROBLEM LIST Staghorn Renal Calculus Renal Colic Hydronephrosis Calculus of Ureter Foreign Body in Bladder and Urethra Asa Class Iii Flank Hernia Morbid Obesity With Bmi of 50.0-59.9, Adult (Hcc) Depression Ddd (Degenerative Disc Disease), Lumbar Ibs (Irritable Bowel Syndrome) Panic Disorder Obstructive Sleep Apnea Syndrome Hypertension Diabetes Mellitus (Hcc) Lumbago Malignant Neoplasm of Kidney Excluding Renal Pelvis (Hcc) Mixed Hyperlipidemia Pvd (Peripheral Vascular Disease) (Hcc) Chronic Obstructive Pulmonary Disease (Hcc) Chronic Hypoxemic Respiratory Failure (Hcc) Anxiety Lung Nodules gallbladder duct cyst Adrenal Adenoma, Right Current Outpatient Medications Medication Sig Dispense Refill albuterol HFA (PROVENTIL HFA, VENTOLIN HFA) 90 mcg/actuation inhaler Inhale 2 Puffs as instructed every 4 hours as needed. 1 Each 5 ammonium lactate (LAC-HYDRIN) 12 % cream Apply 1 application to affected area as needed. 56 g 1 atenolol (TENORMIN) 50 mg tablet Take 1 tablet by mouth once daily. 30 tablet 5 atorvastatin (LIPITOR) 40 mg tablet Take 1 tablet by mouth daily at bedtime. 30 tablet 5 blood sugar diagnostic (BLOOD GLUCOSE TEST) test strip Test blood sugar(s) 2 times daily: fasting am and 2 hour after largest meal. Dx: Type 2 DM - Controlled E11.9 Insulin: Yes 200 Strip 3 busPIRone (BUSPAR) 5 mg tablet Take 1 tablet by mouth three times daily. 90 tablet 5 COMPOUNDED PRESCRIPTION CPAP mask 1 Each 0 COMPOUNDED PRESCRIPTION cpap supplies: sleep apnea 1 Each 0 COMPOUNDED PRESCRIPTION COMPRESSION STOCKINGS 20-30 mm Knee high. DX: venous insufficiency 1 Each 0 COMPOUNDED PRESCRIPTION C-PAP MASK HOSES, FILTERS 1 Each 0 CPAP 11 cm via nasal mask with 20 min ramp and humidification. 1 Device 0 dulaglutide (TRULICITY) 4.5 mg/0.5 mL pen injector Inject 4.5 mg subcutaneously one time a week. 6 mL 4 flash glucose scanning reader (LockrSTYLE TERRELL 2 READER) 1 Each four times daily. 1 Each 0 flash glucose sensor (FREESTYLE TERRELL 2 SENSOR) kit 1 Each four times daily. 6 Kit 3 furosemide (LASIX) 40 mg tablet Take 1 tablet by mouth once daily. 28 tablet 5 gabapentin (NEURONTIN) 300 mg capsule Take 1 capsule by mouth three times daily for 90 days. Appointment needed for further refills. 90 capsule 2 glucose 4 gram chewable tablet Take 4 tablets by mouth as needed. For sugar less than 70 10 tablet 1 insulin degludec (TRESIBA FLEXTOUCH U-200) 200 unit/mL (3 mL) injection Inject 83 Units subcutaneously twice daily. 12 Each 5 insulin lispro (HUMALOG) 200 unit/mL (3 mL) injection Inject 3 Units subcutaneously three times daily before meals. And sliding scale coverage: Lispro insulin coverage < 200 no coverage 201-250 2u 251-300 3u 301-350 5u 351-400 8u 451-500 12u > 500 go to ER 4 Each 2 insulin lispro (HUMALOG) 200 unit/mL (3 mL) injection 63 units am, 3 units afternoon, 93 units before evening meal 3 Each 5 Insulin [place], Disposable, (ULTICARE PEN NEEDLE) 29 gauge x 1/2 USE FIVE TIMES A DAY 200 Each 5 Lancets lancets Test blood sugar(s) 2 times daily. Dx: Type 2 DM - Uncontrolled E11.65 Insulin: Yes 100 Each 11 lisinopril-hydroCHLOROthiazide (ZESTORETIC) 20-12.5 mg per tablet Take 2 tablets by mouth once daily. 60 tablet 5 metFORMIN ER (GLUCOPHAGE XR) 500 mg 24 hr tablet Take 2 tablets by mouth twice daily with meals. 120 tablet 11 OXYGEN, HOME THERAPY, 2 L/min by Nasal Cannula route continuous. potassium chloride (K-TAB) 10 mEq tablet Take 2 tablets by mouth daily with breakfast. 60 tablet 5 triamcinolone acetonide (KENALOG) 0.1 % cream Apply 1 application to affected area three times daily. Apply sparingly to area for rash/itching. 80 g 0 venlafaxine ER (EFFEXOR XR) 150 mg 24 hr capsule Take 1 capsule by mouth once daily. 84 capsule 0 venlafaxine ER (EFFEXOR XR) 75 mg 24 hr capsule TAKE 1 CAPSULE BY MOUTH DAILY IN ADDITION TO 150 MG A DAY. 30 capsule 5 No current facility-administered medications for this visit. Hepatitis B Vaccine(1 of 3 - 3-dose series) Never done Hepatitis C Screening Never done HIV Screening Never done BP Controlled (<130/80) Never done Pap Testing Never done Alpha-1 Antitrypsin Deficiency Screening Never done HPV Testing Never done Dilated Retinal Exam due on 11/06/2015 Shingrix Vaccine(1 of 2) Never done Pneumococcal Vaccine(2 - PCV) due on 02/03/2017 Mammogram Screening due on 03/31/2018 Diabetic Foot Exam due on 06/16/2022 Urine Albumin:Creatinine Ratio due on 10/14/2022 Influenza Vaccine(1) due on 10/15/2022 Covid-19 Vaccine(2022- season) due on 10/15/2022 HbA1C due on 11/13/2022 ROS: Notes hoarseness, comes and goes. Persistent smoker No pattern but if keeps talking it gets worse. Recently having GERD- takes 2 TUMS After eating feels some heaviness in epigastric into mid chest and throat. Not exertional.burps with sulfury/ egg smell afterwards. S/p lap choly. EXAM: BP 130/74 Pulse 71 Resp 16 Wt (!) 144.7 kg (319 lb) LMP 06/12/2015 SpO2 92% BMI 54.76 kg/m Pleasant obese adult in no acute distress. Alert and oriented all spheres. Normal affect and cognition. Speech normal. No deficits to learning or comprehension. Skin warm, dry, pink to lips and nailbeds. Normal turgor. Respirations regular and unlabored. HEENT: NCAT. No scleral icterus or conjunctival injection. Left amblyopia. TM's clear. Nose and oropharynx free from injection or lesion. Oral membranes moist and pink. No cervical lymph nodes. Thyroid non-tender, no masses, or enlargement. Carotids pulses 2+/4+ without bruits. No JVD with HOB at 30 degrees. Chest is normal shape. Lungs are clear to all zapien with good air exchange through out. HRRR without murmur or gallop. No lifts, heaves, or rubs. morbidly obese which makes exam difficult. Abdomen: active bowel sounds throughout, soft, nontender, no masses or organomegaly. No CVAT. Mild erythema pannicular folds. Extrem: no clubbing or cyanosis. Edema: 2/4 pitting glower extremities. Extremities are warm and pink with prompt capillary refill. Paronychia left middle finger nail from biting hangnail Neuro grossly normal. ASSESSMENT/PLAN: 1. Essential hypertension - ICD9: 401.9, ICD10: I10 (primary diagnosis) - Controlled - Continue current medications - Recommend home blood pressure monitoring, to bring results to next visit - Encouraged sodium restriction, DASH or Mediterranean diet - Recommend regular aerobic exercise 2. Mixed hyperlipidemia - ICD9: 272.2, ICD10: E78.2 - Controlled - Continue current medications - Counseled on healthy diet and regular exercise 3. PVD (peripheral vascular disease) (HCC) - ICD9: 443.9, ICD10: I73.9 Stable wihtout restriction on studies. 4. Lung nodules - ICD9: 793.19, ICD10: R91.8 stable 5. Chronic hypoxemic respiratory failure (HCC) - ICD9: 518.83, 799.02, ICD10: J96.11 6. Chronic obstructive pulmonary disease, unspecified COPD type (HCC) - ICD9: 496, ICD10: J44.9 Wears O2 2l/min supplemental with exercise Stable exertional dyspnea. 7. Obstructive sleep apnea syndrome - ICD9: 327.23, ICD10: G47.33 Compliant with CPAP 8. Tobacco dependence - ICD9: 305.1, ICD10: F17.200 - Cessation encouraged. - Physiologic and physical aspects of tobacco addiction as well as strategies for quitting were discussed. - Counseling was given focusing on the harmful effects of this addiction especially given the patient's medical condition(s) which will be worsened because of the chemicals in tobacco. 9. Type 2 diabetes mellitus without complication, with long-term current use of insulin (HCC) - ICD9: 250.00, V58.67, ICD10: E11.9, Z79.4 - Controlled - Continue current medications 10. Microalbuminuria - ICD9: 791.0, ICD10: R80.9 Severe: has not followed through with renal consult 11. Depression, unspecified depression type - ICD9: 311, ICD10: F32.A 12. Anxiety - ICD9: 300.00, ICD10: F41.9 13. Panic disorder - ICD9: 300.01, ICD10: F41.0 Stable, doing well, continue med 14. Polycythemia - ICD9: 238.4, ICD10: D75.1 Like from smoking 15. Irritable bowel syndrome, unspecified type - ICD9: 564.1, ICD10: K58.9 Managing with diet changes. 16. Dry skin - ICD9: 701.1, ICD10: L85.3 - AMMONIUM LACTATE 12 % TOPICAL CREAM 17. Encounter for immunization - ICD9: V03.89, ICD10: Z23 - INFLUENZA VACCINE, AGE 6 MO - 64 YR, QUADRIVALENT (AFLURIA, FLULAVAL, FLUZONE) - [employer] COVID-19 VACCINE (2022- SEASON) AGE 12+ YR 18. Paronychia of finger of left hand - ICD9: 681.02, ICD10: L03.012 - Begin treatment with mupirocin three times a day until clear. - if worse call for oral ATB Use nail clipper rather than biting or ripping off hangnails. Jovany Rizzo PA-C documented in this encounter [facility] 11-22-2022 Note HNO ID: [id number] Author: Lorena Benjamin RDMS Service: ? Author Type: Small Animal Veterinarian Type: Progress Notes Filed: 11/22/2022 12:58 PM Note Text: Radiology Service Progress Note PATIENT NAME: Rosa Maria Menjivar DATE OF SERVICE: November 22, 2022 TIME: 12:58 PM PATIENT IDENTITY VERIFICATION COMPLETED USING TWO (2) IDENTIFIERS: Name and Date of confirmed by patient verbally. FALL SCREENING: Has the patient had 2 falls in the last year or 1 fall with injury or currently using an Ambulatory Assistive Device (Walker, Cane, Wheelchair, Crutches, etc.)? Yes, Patient High Risk for Falls What interventions were put in place to prevent falls during this visit? Offered Assistance with Transfers/Clothing and Increased Observations by Caregivers PATIENT GENDER DATA: Female. status: : No status: NO. PATIENT RELEVANT IMPLANT DATA REVIEWED: Not Applicable RADIOLOGY DEPARTMENT: Ultrasound PERIPHERAL IV DATA: Not applicable SIGNED BY: Lorena Benjamin RDMS November 22, 2022 12:58 PM [facility] 11-22-2022 History of Present illness Narrative Radiology Service Progress Note PATIENT NAME: Rosa Maria Menjivar DATE OF SERVICE: November 22, 2022 TIME: 12:58 PM PATIENT IDENTITY VERIFICATION COMPLETED USING TWO (2) IDENTIFIERS: Name and Date of confirmed by patient verbally. FALL SCREENING: Has the patient had 2 falls in the last year or 1 fall with injury or currently using an Ambulatory Assistive Device (Walker, Cane, Wheelchair, Crutches, etc.)? Yes, Patient High Risk for Falls What interventions were put in place to prevent falls during this visit? Offered Assistance with Transfers/Clothing and Increased Observations by Caregivers PATIENT GENDER DATA: Female. status: : No status: NO. PATIENT RELEVANT IMPLANT DATA REVIEWED: Not Applicable RADIOLOGY DEPARTMENT: Ultrasound PERIPHERAL IV DATA: Not applicable SIGNED BY: Lorena Benjamin RDMS November 22, 2022 12:58 PM documented in this encounter [facility] 11-05-2022 Miscellaneous Notes Patient has been identified by name and date of : Yes, Provider Matthias Date 11-05-22 Time 9:39 am Pharmacy phones for refill(s): Requested Prescriptions Pending Prescriptions Disp Refills gabapentin (NEURONTIN) 300 mg capsule 90 capsule 2 Sig: Take 1 capsule by mouth three times daily for 90 days. Appointment needed for further refills. lisinopril-hydroCHLOROthiazide (ZESTORETIC) 20-12.5 mg per tablet 60 tablet 5 Sig: Take 2 tablets by mouth once daily. atenolol (TENORMIN) 50 mg tablet 30 tablet 5 Sig: Take 1 tablet by mouth once daily. atorvastatin (LIPITOR) 40 mg tablet 30 tablet 5 Sig: Take 1 tablet by mouth daily at bedtime. venlafaxine ER (EFFEXOR XR) 75 mg 24 hr capsule 30 capsule 5 Sig: TAKE 1 CAPSULE BY MOUTH DAILY IN ADDITION TO 150 MG A DAY. Date of last office visit with pcp: 05-21-22. Next appt: 11-16-22 Last 2 Encounter Wt Readings: Date: Wt: 07/23/2022 0 kg () 06/16/2021 147.4 kg (325 lb) Previous labs/tests for medication: Cholesterol: HDL Cholesterol (mg/dL) Date Value 05/13/2022 37 03/24/2020 32 LDL Cholesterol (mg/dL) Date Value 05/13/2022 38 03/24/2020 20 ALT (U/L) Date Value 05/13/2022 9 03/24/2020 18 Non HDL Cholesterol, Nonfasting (mg/dL) Date Value 04/27/2018 66 Non HDL Cholesterol (mg/dL) Date Value 05/13/2022 88 03/24/2020 89 Blood Pressure: BUN (mg/dL) Date Value 05/13/2022 21 10/22/2020 19 Sodium (mmol/L) Date Value 05/13/2022 138 10/22/2020 138 Last 1 Encounter BP Readings: Date: BP: 09/30/2022 138/78 Blood Counts: WBC (k/uL) Date Value 07/23/2022 11.36 10/22/2020 11.88 RBC (m/uL) Date Value 07/23/2022 5.05 10/22/2020 5.44 Hematocrit (%) Date Value 07/23/2022 42.7 10/22/2020 47.1 Hemoglobin (g/dL) Date Value 07/23/2022 13.8 10/22/2020 15.4 Platelet Count (k/uL) Date Value 07/23/2022 294 10/22/2020 244 Liver Function: ALT (U/L) Date Value 05/13/2022 9 03/24/2020 18 AST (U/L) Date Value 05/13/2022 10 03/24/2020 13 Please advise. Thank you. Jovany Rodriguez RN documented in this encounter [facility] 10-12-2022 Miscellaneous Notes Medication refill requested by [facility]. Requested Prescriptions Pending Prescriptions Disp Refills furosemide (LASIX) 40 mg tablet 28 tablet 5 Sig: Take 1 tablet by mouth once daily. busPIRone (BUSPAR) 5 mg tablet 90 tablet 5 Sig: Take 1 tablet by mouth three times daily. potassium chloride (K-TAB) 10 mEq tablet 60 tablet 5 Sig: Take 2 tablets by mouth daily with breakfast. Last encounter with this provider: 06/16/2021 Next appt: 10/19/2022 WBC (k/uL) Date Value 07/23/2022 11.36 (H) Hemoglobin (g/dL) Date Value 07/23/2022 13.8 Platelet Count (k/uL) Date Value 07/23/2022 294 Glucose (mg/dL) Date Value 05/13/2022 210 (H) BUN (mg/dL) Date Value 05/13/2022 21 Creatinine (mg/dL) Date Value 05/13/2022 0.45 (L) Sodium (mmol/L) Date Value 05/13/2022 138 Potassium (mmol/L) Date Value 05/13/2022 3.7 Calcium, Total (mg/dL) Date Value 05/13/2022 9.8 Alkaline Phosphatase (U/L) Date Value 05/13/2022 96 Bilirubin, Total (mg/dL) Date Value 05/13/2022 <0.2 (L) AST (U/L) Date Value 05/13/2022 10 (L) ALT (U/L) Date Value 05/13/2022 9 Cholesterol, Total (mg/dL) Date Value 05/13/2022 125 Triglyceride (mg/dL) Date Value 05/13/2022 250 (H) TSH (uU/mL) Date Value 03/13/2014 1.110 Dhara Naylor RN documented in this encounter [facility] 10-06-2022 Miscellaneous Notes Pt notified of Dr Taveras' message. Pt verbalizes understanding. Juma Lemus LPN Insurance does not pay for screening carotid ultrasounds, only if we hear what is called a bruit or they have had a stroke or tia as part of the work up or for following known blockage. To do carotid doppler for screening, have to utilize something like [facility] screening where you pay out of pocket. Patient calling she has Ultrasound of Thyroid scheduled for Wednesday 10/11, patient asking if she could have Carotid Ultrasound done same time? Patient is concerned and wanted to have her carotids checked. Please advise documented in this encounter [facility] 10-01-2022 Miscellaneous Notes EDITA: 05/21/22 VV with PCP NOV: 10/19/22-med check with PCP Last refill: 09/24/21 With 6 kit and 3 refills Nika Watters MA Patient has been identified by name and date of : Yes Last office visit in this department: 06/16/2021 RX INSTRUCTIONS: Patient aware RX will be sent to pharmacy. No need to notify patient. Patient phones requesting refills as follows: Requested Prescriptions Pending Prescriptions Disp Refills flash glucose sensor (FREESTYLE TERRELL 2 SENSOR) kit 6 Kit 3 Si Each four times daily. Please review and advise. Bhargavi Groves documented in this encounter [facility] 09-30-2022 Note HNO ID: [id number] Author: Pilar Cardoza PA-C Service: ? Author Type: Physician Film Composer Type: Progress Notes Filed: 09/30/2022 9:42 AM Note Text: Patient: Rosa Maria Menjivar PCP: Jovany Rizzo PA-C CC: follow up HPI: Rosa Maria Menjivar 56 year old morbidly obese female current smoker with PMH significant for COPD (FEV1 1.50 L 55%) ,chronic hypoxemic respiratory failure mainly due to obesity, DM2, HLD, HTN, RCC s/p partial right nephrectomy, and KELLIE on CPAP. Most recent CT chest in April demonstrated stable 6 mm groundglass nodule in right lung. Next CT in April 2023. Current therapy consists of as needed Albuterol. Today, patient reports she has been doing well from a respiratory standpoint. Does not need Albuterol on a daily basis. Denies significant cough, sputum production or wheezing. Exertional dyspnea walking short distances. Utilized a wheelchair to get into office. Has to climb a few stairs at home and does okay. No issues ADLs. Currently wearing 2L supplemental oxygen continuously. DME: [facility]. Consistently wearing CPAP at nighttime. Continues to smoke 1/2 ppd (down from 2 ppd). PAST MEDICAL HISTORY Diagnosis Date Chronic hypoxemic respiratory failure (HCC) 07/16/2021 Due to morbid obesity. COPD (chronic obstructive pulmonary disease) (HCC) with chronic hypoxemic respiratory failure; on oxygen 2 liters continuously Degenerative disc disease Depression Diabetes mellitus type II Dyslipidemia Hypertension IBS (irritable bowel syndrome) Microalbuminuria on adwoa inhibitor Obesity Palpitations Panic disorder Renal calculus Renal cell carcinoma of right kidney (HCC) 2009 S/P partial right nephrectomy Sleep apnea uses CPAP Tobacco abuse Urinary calculus, unspecified Renal stones Allergies: Jardiance [Empaglif* Itching Comment:Pt reported yeast infection Morphine Itching Tetanus And Diphthe* Other: See Comments Comment:? Reactive lymphadenopathy Toradol [Ketorolac * Comment:Heart racing and nightmares venlafaxine ER (EFFEXOR XR) 150 mg 24 hr capsule Take 1 capsule by mouth once daily. gabapentin (NEURONTIN) 300 mg capsule Take 1 capsule by mouth three times daily for 90 days. Appointment needed for further refills. insulin lispro (HUMALOG) 200 unit/mL (3 mL) injection 63 units am, 3 units afternoon, 93 units before evening meal insulin degludec (TRESIBA FLEXTOUCH U-200) 200 unit/mL (3 mL) injection Inject 83 Units subcutaneously twice daily. insulin lispro (HUMALOG) 200 unit/mL (3 mL) injection Inject 3 Units subcutaneously three times daily before meals. And sliding scale coverage: Lispro insulin coverage < 200 no coverage 201-250 2u 251-300 3u 301-350 5u 351-400 8u 451-500 12u > 500 go to ER triamcinolone acetonide (KENALOG) 0.1 % cream Apply 1 application to affected area three times daily. Apply sparingly to area for rash/itching. blood sugar diagnostic (BLOOD GLUCOSE TEST) test strip Test blood sugar(s) 2 times daily: fasting am and 2 hour after largest meal. Dx: Type 2 DM - Controlled E11.9 Insulin: Yes Lancets lancets Test blood sugar(s) 2 times daily. Dx: Type 2 DM - Uncontrolled E11.65 Insulin: Yes lisinopril-hydroCHLOROthiazide (ZESTORETIC) 20-12.5 mg per tablet Take 2 tablets by mouth once daily. atenolol (TENORMIN) 50 mg tablet Take 1 tablet by mouth once daily. atorvastatin (LIPITOR) 40 mg tablet Take 1 tablet by mouth daily at bedtime. venlafaxine ER (EFFEXOR XR) 75 mg 24 hr capsule TAKE 1 CAPSULE BY MOUTH DAILY IN ADDITION TO 150 MG A DAY. metFORMIN ER (GLUCOPHAGE XR) 500 mg 24 hr tablet Take 2 tablets by mouth twice daily with meals. furosemide (LASIX) 40 mg tablet Take 1 tablet by mouth once daily. busPIRone (BUSPAR) 5 mg tablet Take 1 tablet by mouth three times daily. potassium chloride (K-TAB) 10 mEq tablet Take 2 tablets by mouth daily with breakfast. albuterol HFA (PROVENTIL HFA, VENTOLIN HFA) 90 mcg/actuation inhaler Inhale 2 Puffs as instructed every 4 hours as needed. dulaglutide (TRULICITY) 4.5 mg/0.5 mL pen injector Inject 4.5 mg subcutaneously one time a week. flash glucose scanning reader (FREESTYLE TERRELL 2 READER) 1 Each four times daily. flash glucose sensor (FREESTYLE TERRELL 2 SENSOR) kit 1 Each four times daily. Insulin [place], Disposable, (ULTICARE PEN NEEDLE) 29 gauge x 1/2 USE FIVE TIMES A DAY CPAP 11 cm via nasal mask with 20 min ramp and humidification. OXYGEN, HOME THERAPY, 2 L/min by Nasal Cannula route continuous. ammonium lactate (LAC-HYDRIN) 12 % cream Apply 1 application to affected area as needed. COMPOUNDED PRESCRIPTION C-PAP MASK HOSES, FILTERS glucose 4 gram chewable tablet Take 4 tablets by mouth as needed. For sugar less than 70 COMPOUNDED PRESCRIPTION COMPRESSION STOCKINGS 20-30 mm Knee high. DX: venous insufficiency COMPOUNDED PRESCRIPTION cpap supplies: sleep apnea COMPOUNDED PRESCRIPTION CPAP mask Social Hi (more content not included)... [facility] 09-14-2022 Miscellaneous Notes Patient has been identified by name and date of : Pharmacy phones for refill(s): Requested Prescriptions Pending Prescriptions Disp Refills venlafaxine ER (EFFEXOR XR) 150 mg 24 hr capsule 84 capsule 0 Sig: Take 1 capsule by mouth once daily. Date of last office visit in primary care: 05/21/2022, no future appt scheduled, pharmacy aware patient needs to schedule appt Last 2 Encounter Wt Readings: Date: Wt: 07/23/2022 0 kg () 06/16/2021 147.4 kg (325 lb) Previous labs/tests for medication: Blood Pressure: BUN (mg/dL) Date Value 05/13/2022 21 10/22/2020 19 Sodium (mmol/L) Date Value 05/13/2022 138 10/22/2020 138 Last 1 Encounter BP Readings: Date: BP: 07/23/2022 132/78 Please advise. Thank you. Sharon Horan LPN documented in this encounter [facility] 08-13-2022 Miscellaneous Notes Medication refill requested by Pharmacy Please review and advise. Requested Prescriptions Pending Prescriptions Disp Refills gabapentin (NEURONTIN) 300 mg capsule 90 capsule 2 Sig: Take 1 capsule by mouth three times daily for 90 days. Appointment needed for further refills. Last encounter with this provider: 06/16/2021 Next appt: not scheduled WBC (k/uL) Date Value 07/23/2022 11.36 (H) Hemoglobin (g/dL) Date Value 07/23/2022 13.8 Platelet Count (k/uL) Date Value 07/23/2022 294 Glucose (mg/dL) Date Value 05/13/2022 210 (H) BUN (mg/dL) Date Value 05/13/2022 21 Creatinine (mg/dL) Date Value 05/13/2022 0.45 (L) Sodium (mmol/L) Date Value 05/13/2022 138 Potassium (mmol/L) Date Value 05/13/2022 3.7 Calcium, Total (mg/dL) Date Value 05/13/2022 9.8 Alkaline Phosphatase (U/L) Date Value 05/13/2022 96 Bilirubin, Total (mg/dL) Date Value 05/13/2022 <0.2 (L) AST (U/L) Date Value 05/13/2022 10 (L) ALT (U/L) Date Value 05/13/2022 9 Cholesterol, Total (mg/dL) Date Value 05/13/2022 125 Triglyceride (mg/dL) Date Value 05/13/2022 250 (H) TSH (uU/mL) Date Value 03/13/2014 1.110 Dhara Naylor RN documented in this encounter [facility] 08-11-2022 Miscellaneous Notes Patient calls to request a new order for compression stockings be sent to [facility] [place]. Pended per request with previous diagnosis of venous insufficiency. Rakel Douglas RN documented in this encounter [facility] 08-05-2022 Miscellaneous Notes The following approved medication requests have been transmitted electronically. Requested Prescriptions Signed Prescriptions Disp Refills insulin lispro (HUMALOG) 200 unit/mL (3 mL) injection 3 Each 5 Si units am, 3 units afternoon, 93 units before evening meal Authorizing Provider: Jovany RIZZO insulin degludec (TRESIBA FLEXTOUCH U-200) 200 unit/mL (3 mL) injection 12 Each 5 Sig: Inject 83 Units subcutaneously twice daily. Authorizing Provider: Jovany RIZZO PA-C Pt called in for refills on insulins Humalog pt is taking 63 units in the am, 3 units in the afternoon, then 93 units before evening meal. No sliding scale per pt. Tresiba pt is taking 83 units twice a day. (takes this with the Humalog am and the Humalog evening meal) Please advise pt when this has been sent to the pharmacy. Yesenia Blanco LPN documented in this encounter [facility] 07-29-2022 Miscellaneous Notes Patient was notified and verbalizes understanding. She will keep a close eye on readings and update office on Tuesday. Ok to resume what she was taking but go a little lower at 60 am and 90 pm and call sugars on Tuesday. Call if less than 80. Spoke with patient and what she is wanting to do is go back to the Humalog dosing prior to sliding scale. She was taking 64 units in the AM and 94 units in the PM. Then when she had changed her diet she was getting low readings and changed to the sliding scale. For some reason now sugars are up and is afraid she going to lose control of A1C again. I did confirm with patient that she is taking metformin, trulicity, and tresiba. She had to stop Jardiance because of yeast infections with it she tried several times with it because it was helpful for her readings. She is still following strict diet for the most part. Just not sure why readings are back up? She would rather have the set twice daily dosing and work down than be having the high readings and using all the sliding scale insulin. Rx sent. I am confused. She should not have decreased any insulin at all. We have just been increasing what she was already on. Did she decrease insulin on her own or misunderstand what she is supposed to be doing. Patient calling said she is taking 2 antibiotics from the medical center for skin infection on her back. She has 3 and 1/2 days of both antibiotics left and now having yeast infection issues, vaginal itching and cream like discharge when wiping. Patient asking for diflucan rx. Patient uses [facility] for her pharmacy. Pending rx if wanted. Patient said her blood sugars have been going up over 400 sometimes 4 to 5 days a week for some time. She said she is taking Humalog 8 units plus her sliding scale. Patient was asking to go back to amount of insulin she used to be taking, does not like the over 400 readings. Patient has follow up with the skin infection with Lu scheduled for 08/03. Please advise documented in this encounter [facility] 07-23-2022 Note HNO ID: [id number] Author: Maryann Alexander APRN.CREMATORY ATTENDANT Service: ? Author Type: Nurse Practitioner Type: Progress Notes Filed: 07/23/2022 11:05 AM Note Text: Subjective The history is provided by the patient. No candy supervisor was used. HPI Rosa Maria Menjivar is a 56 year old female who presents today for CC of red tender spot that started about a week ago and has gotten bigger. She also noted two red itchy spots on abdomen. She also is complaining of bilateral elbow pain, states she rests her elbows on table daily. This started over the past month. She has not used any treatment or medications. She is a diabetic, states that BS are 300-400. Denies any fever. LMP 06/12/2015 Social History Tobacco Use Smoking status: Every Day Packs/day: 2.00 Years: 38.00 Pack years: 76.00 Types: Cigarettes Start date: 12/06/1979 Smokeless tobacco: Never Tobacco comments: Down to one ppd Vaping Use Vaping Use: Never used Substance Use Topics Alcohol use: No Drug use: No PAST MEDICAL HISTORY Diagnosis Date Chronic hypoxemic respiratory failure ([facility]) 07/16/2021 Due to morbid obesity. COPD (chronic obstructive pulmonary disease) ([facility]) with chronic hypoxemic respiratory failure; on oxygen 2 liters continuously Degenerative disc disease Depression Diabetes mellitus type II Dyslipidemia Hypertension IBS (irritable bowel syndrome) Microalbuminuria on adwoa inhibitor Obesity Palpitations Panic disorder Renal calculus Renal cell carcinoma of right kidney ([facility]) 2009 S/P partial right nephrectomy Sleep apnea uses CPAP Tobacco abuse Urinary calculus, unspecified Renal stones I have confirmed and edited as necessary, the [facility] Review of Systems Constitutional: Negative for chills and fever. Musculoskeletal: Positive for joint pain (bilateral elbows). Negative for myalgias. Skin: Positive for itching (on abdomen). Negative for rash (red spots on back and abdomen). All other systems reviewed and are negative. Objective Physical Exam Vitals and nursing note reviewed. Pulmonary: Effort: Pulmonary effort is normal. Musculoskeletal: Arms: Comments: Slightly swollen, tender to touch, not warm Skin: General: Skin is warm and dry. Findings: Erythema present. Comments: Area on back red,patch - hard to touch warm Area on soft, pink, no pain, pruritic Neurological: Mental Status: She is alert and oriented to person, place, and time. Psychiatric: Mood and Affect: Affect normal. ASSESSMENT/PLAN: 1. Redness of skin - ICD9: 695.9, ICD10: L53.9 (primary diagnosis) Area on back appears to be infection - doxycycline/keflex as ordered, check cbc, will call with results, Recheck next week with PCP - CBC + DIFF 2. Bilateral elbow joint pain - ICD9: 719.42, ICD10: M25.521, M25.522 Appears to olecron bursitis Ibuprofen 600 mg po tid Adwoa wraps, protection to elbows Follow up with PCP prn Diagnosis and treatment plan were discussed and questions were answered to the patient's satisfaction. Pt acknowledged understanding of concepts and follow up plan. Specific signs and symptoms that would indicate the need for higher level of care were discussed in detail warranting prompt ER evaluation. Maryann Alexander APRN.[facility] 07-23-2022 History of Present illness Narrative Images from the original note were not included. Subjective The history is provided by the patient. No candy supervisor was used. HPI Rosa Maria Menjivar is a 56 year old female who presents today for CC of red tender spot that started about a week ago and has gotten bigger. She also noted two red itchy spots on abdomen. She also is complaining of bilateral elbow pain, states she rests her elbows on table daily. This started over the past month. She has not used any treatment or medications. She is a diabetic, states that BS are 300-400. Denies any fever. LMP 06/12/2015 Social History Tobacco Use Smoking status: Every Day Packs/day: 2.00 Years: 38.00 Pack years: 76.00 Types: Cigarettes Start date: 12/06/1979 Smokeless tobacco: Never Tobacco comments: Down to one ppd Vaping Use Vaping Use: Never used Substance Use Topics Alcohol use: No Drug use: No PAST MEDICAL HISTORY Diagnosis Date Chronic hypoxemic respiratory failure (HCC) 07/16/2021 Due to morbid obesity. COPD (chronic obstructive pulmonary disease) ([facility]) with chronic hypoxemic respiratory failure; on oxygen 2 liters continuously Degenerative disc disease Depression Diabetes mellitus type II Dyslipidemia Hypertension IBS (irritable bowel syndrome) Microalbuminuria on adwoa inhibitor Obesity Palpitations Panic disorder Renal calculus Renal cell carcinoma of right kidney ([facility]) 2009 S/P partial right nephrectomy Sleep apnea uses CPAP Tobacco abuse Urinary calculus, unspecified Renal stones I have confirmed and edited as necessary, the [facility] Review of Systems Constitutional: Negative for chills and fever. Musculoskeletal: Positive for joint pain (bilateral elbows). Negative for myalgias. Skin: Positive for itching (on abdomen). Negative for rash (red spots on back and abdomen). All other systems reviewed and are negative. Objective Physical Exam Vitals and nursing note reviewed. Pulmonary: Effort: Pulmonary effort is normal. Musculoskeletal: Arms: Comments: Slightly swollen, tender to touch, not warm Skin: General: Skin is warm and dry. Findings: Erythema present. Comments: Area on back red,patch - hard to touch warm Area on soft, pink, no pain, pruritic Neurological: Mental Status: She is alert and oriented to person, place, and time. Psychiatric: Mood and Affect: Affect normal. ASSESSMENT/PLAN: 1. Redness of skin - ICD9: 695.9, ICD10: L53.9 (primary diagnosis) Area on back appears to be infection - doxycycline/keflex as ordered, check cbc, will call with results, Recheck next week with PCP - CBC + DIFF 2. Bilateral elbow joint pain - ICD9: 719.42, ICD10: M25.521, M25.522 Appears to olecron bursitis Ibuprofen 600 mg po tid Adwoa wraps, protection to elbows Follow up with PCP prn Diagnosis and treatment plan were discussed and questions were answered to the patient's satisfaction. Pt acknowledged understanding of concepts and follow up plan. Specific signs and symptoms that would indicate the need for higher level of care were discussed in detail warranting prompt ER evaluation. Maryann Alexander APRN.CREMATORY ATTENDANT documented in this encounter [facility] 07-22-2022 Miscellaneous Notes See MyChart message Dr Hogan asking to set up with endo TRIMMING INSPECTOR here in [place] (Jami). Thank you documented in this encounter [facility] 07-21-2022 Miscellaneous Notes Addended by: SAMSON HOGAN on: 07/21/2022 05:38 PM Modules accepted: Orders Set up with endo gizzard peeler documented in this encounter [facility] 07-07-2022 Note Patient Outreach (IN [facility]) ROSA MARIA MENJIVAR ([id number]) 1965 F Date Time Provider Department 07/07/22 Jovany RIZZO During your visit today, we recorded the following information about you: Allergies As of Date: 07/07/2022 Noted Allergy Reaction MORPHINE 10/14/2010 9 - Itching TETANUS AND DIPHTHERIA TOXOIDS, A*11/10/2012 14 - Other: See Comments Comments: ? Reactive lymphadenopathy TORADOL (KETOROLAC TROMETHAMINE) 11/24/2007 Comments: Heart racing and nightmares Date Reviewed: 03/11/2022 Reviewed by: Patti Gallegos MD - Fully Assessed Visit Diagnosis:Encounter for screening mammogram for breast cancer [Z12.31] Order(s):[facility] SCREENING [[id number]] Order #: [id number] FUTURE Prescriptions as of 07/12/2022 - blood sugar diagnostic (BLOOD GLUCOSE TEST) test strip Test blood sugar(s) 2 times daily: fasting am and 2 hour after largest meal. Dx: Type 2 DM - Controlled E11.9 Insulin: Yes - Lancets lancets Test blood sugar(s) 2 times daily. Dx: Type 2 DM - Uncontrolled E11.65 Insulin: Yes - insulin degludec (TRESIBA FLEXTOUCH U-200) 200 unit/mL (3 mL) injection Inject 72 Units subcutaneously twice daily. - empagliflozin (JARDIANCE) 10 mg tablet Take 1 tablet by mouth once daily. Take 1 tablet once daily in the morning - venlafaxine ER (EFFEXOR XR) 150 mg 24 hr capsule Take 1 capsule by mouth once daily. - insulin lispro (HUMALOG) 200 unit/mL (3 mL) injection Inject 4 Units subcutaneously three times daily before meals. And sliding scale coverage: Lispro insulin coverage < 200 no coverage 201-250 2u 251-300 3u 301-350 5u 351-400 8u 451-500 12u > 500 go to ER - gabapentin (NEURONTIN) 300 mg capsule Take 1 capsule by mouth three times daily for 90 days. Appointment needed for further refills. - lisinopril-hydroCHLOROthiazide (ZESTORETIC) 20-12.5 mg per tablet Take 2 tablets by mouth once daily. - atenolol (TENORMIN) 50 mg tablet Take 1 tablet by mouth once daily. - atorvastatin (LIPITOR) 40 mg tablet Take 1 tablet by mouth daily at bedtime. - venlafaxine ER (EFFEXOR XR) 75 mg 24 hr capsule TAKE 1 CAPSULE BY MOUTH DAILY IN ADDITION TO 150 MG A DAY. - metFORMIN ER (GLUCOPHAGE XR) 500 mg 24 hr tablet Take 2 tablets by mouth twice daily with meals. - furosemide (LASIX) 40 mg tablet Take 1 tablet by mouth once daily. - busPIRone (BUSPAR) 5 mg tablet Take 1 tablet by mouth three times daily. - potassium chloride (K-TAB) 10 mEq tablet Take 2 tablets by mouth daily with breakfast. - albuterol HFA (PROVENTIL HFA, VENTOLIN HFA) 90 mcg/actuation inhaler Inhale 2 Puffs as instructed every 4 hours as needed. - dulaglutide (TRULICITY) 4.5 mg/0.5 mL pen injector Inject 4.5 mg subcutaneously one time a week. - flash glucose scanning reader (LockrSTYLE TERRELL 2 READER) 1 Each four times daily. - flash glucose sensor (FREESTYLE TERRELL 2 SENSOR) kit 1 Each four times daily. - Insulin [place], Disposable, (ULTICARE PEN NEEDLE) 29 gauge x 1/2 USE FIVE TIMES A DAY - CPAP 11 cm via nasal mask with 20 min ramp and humidification. - OXYGEN, HOME THERAPY, 2 L/min by Nasal Cannula route continuous. - ammonium lactate (LAC-HYDRIN) 12 % cream Apply 1 application to affected area as needed. - COMPOUNDED PRESCRIPTION C-PAP MASK HOSES, FILTERS - glucose 4 gram chewable tablet Take 4 tablets by mouth as needed. For sugar less than 70 - COMPOUNDED PRESCRIPTION COMPRESSION STOCKINGS 20-30 mm Knee high. DX: venous insufficiency - COMPOUNDED PRESCRIPTION cpap supplies: sleep apnea - COMPOUNDED PRESCRIPTION CPAP mask Problem List As Of Date 07/07/2022 Noted Resolved [place] renal calculus [N20.0] 05/03/2007 RENAL COLIC [N23] 05/03/2007 Urinary complications [[id number]] 03/21/2008 11/19/2015 HYDRONEPHROSIS [N13.30] 03/21/2008 Acute kidney failure, unspecified (HCC) [N17.9] 03/21/2008 01/17/2017 CALCULUS OF URETER [N20.1] 03/21/2008 FB BLADDER AND URETHRA [T19.1XXA, T19.0XXA] 06/04/2008 Malignant neoplasm of kidney excluding renal pe*11/21/2008 06/25/2015 ASA CLASS III [1003] 08/20/2009 Dehiscence of incision [T81.31XA] 09/18/2009 08/29/2020 Surgical wound infection [T81.49XA] 09/18/2009 04/07/2018 Flank hernia [K45.8] 12/08/2011 Morbid obesity with BMI of 50.0-59.9, adult (HC* Depression [F32.A] DDD (degenerative disc disease), lumbar [M51.36] IBS (irritable bowel syndrome) [K58.9] Panic disorder [F41.0] Obstructive sleep apnea syndrome [G47.33] Hypertension [I10] Diabetes mellitus (HCC) [E11.9] 11/10/2012 Lumbago [M54.50] 01/03/2013 Malignant neoplasm of kidney excluding renal pe*06/25/2015 Mixed hyperlipidemia [E78.2] 08/06/2016 PVD (peripheral vascular disease) (HCC) [I73.9] 12/27/2018 Chronic obstructive pulmonary disease (HCC) [J4*01/14/2020 Chronic hypoxemic respiratory failure (HCC) [J9*07/16/2021 Anxiety [F41.9] 09/24/2021 Lung nodules [R91.8] 09/14 (more content not included)... [facility] 06-29-2022 Miscellaneous Notes Patient said she uses a [employer] system, but her reading are much higher than when she tests with a test strip. Patient has been identified by name and date of : Yes Requested Prescriptions Pending Prescriptions Disp Refills blood sugar diagnostic (FREESTYLE PRECISION WENDY STRIPS) test strip 25 Strip 5 Sig: Use as instructed to check blood sugar when indicated by reader. Checking once daily. 25 strips per month. Lancets lancets 150 Each 11 Sig: Test blood sugar(s) 4 times daily. Dx: Type 2 DM - Uncontrolled E11.65 Insulin: Yes RX INSTRUCTIONS: Patient aware RX will be sent to pharmacy. No need to notify patient. Jennifer Ashley Pss documented in this encounter [facility] 06-25-2022 Miscellaneous Notes Last Office Visit: 05/21/2022 Future Office Visit: None Requested Prescriptions Pending Prescriptions Disp Refills venlafaxine ER (EFFEXOR XR) 150 mg 24 hr capsule 84 capsule 3 Sig: Take 1 capsule by mouth once daily. documented in this encounter [facility] 05-27-2022 Miscellaneous Notes Patient has been identified by name and date of : Yes, Provider Matthias Date 05-27-22 Time 4:31 pm Pharmacy phones for refill(s): Requested Prescriptions Pending Prescriptions Disp Refills gabapentin (NEURONTIN) 300 mg capsule 90 capsule 2 Sig: Take 1 capsule by mouth three times daily for 90 days. Appointment needed for further refills. lisinopril-hydroCHLOROthiazide (ZESTORETIC) 20-12.5 mg per tablet 60 tablet 5 Sig: Take 2 tablets by mouth once daily. atenolol (TENORMIN) 50 mg tablet 30 tablet 5 Sig: Take 1 tablet by mouth once daily. atorvastatin (LIPITOR) 40 mg tablet 30 tablet 5 Sig: Take 1 tablet by mouth daily at bedtime. venlafaxine ER (EFFEXOR XR) 75 mg 24 hr capsule 30 capsule 5 Sig: TAKE 1 CAPSULE BY MOUTH DAILY IN ADDITION TO 150 MG A DAY. metFORMIN ER (GLUCOPHAGE XR) 500 mg 24 hr tablet 120 tablet 11 Sig: Take 2 tablets by mouth twice daily with meals. Date of last office visit with pcp: 05-21-22. Next appt: none Last 2 Encounter Wt Readings: Date: Wt: 06/16/2021 147.4 kg (325 lb) 11/07/2020 149.4 kg (329 lb 6.4 oz) Previous labs/tests for medication: Diabetes: Hemoglobin A1C (%) Date Value 05/13/2022 7.1 10/14/2021 8.4 10/22/2020 9.8 03/24/2020 10.3 Cholesterol: HDL Cholesterol (mg/dL) Date Value 05/13/2022 37 03/24/2020 32 LDL Cholesterol (mg/dL) Date Value 05/13/2022 38 03/24/2020 20 ALT (U/L) Date Value 05/13/2022 9 03/24/2020 18 Non HDL Cholesterol, Nonfasting (mg/dL) Date Value 04/27/2018 66 Non HDL Cholesterol (mg/dL) Date Value 05/13/2022 88 03/24/2020 89 Blood Pressure: BUN (mg/dL) Date Value 05/13/2022 21 10/22/2020 19 Sodium (mmol/L) Date Value 05/13/2022 138 10/22/2020 138 Last 1 Encounter BP Readings: Date: BP: 06/16/2021 120/76 Blood Counts: WBC (k/uL) Date Value 05/13/2022 11.88 10/22/2020 11.88 RBC (m/uL) Date Value 05/13/2022 5.37 10/22/2020 5.44 Hematocrit (%) Date Value 05/13/2022 45.8 10/22/2020 47.1 Hemoglobin (g/dL) Date Value 05/13/2022 14.6 10/22/2020 15.4 Platelet Count (k/uL) Date Value 05/13/2022 215 10/22/2020 244 Liver Function: ALT (U/L) Date Value 05/13/2022 9 03/24/2020 18 AST (U/L) Date Value 05/13/2022 10 03/24/2020 13 Please advise. Thank you. Jovany Rodriguez RN documented in this encounter [facility] 05-27-2022 Miscellaneous Notes Spoke with daughter and states that hasn't had any readings over she believes 150 in probably a week. Encouraged to keep up the good work. Advised to send readings in 3-4 days. Asking for us to send sliding scale in [employer] message so will do that for patient. Stop meal time insulin routine dosing Will go to coverage scale only Lispro insulin coverage < 200 no coverage 201-250 2u 251-300 3u 301-350 5u 351-400 8u 451-500 12u > 500 go to ER Report blood sugars again in 3-4 days. Thanks, Gigi Rizzo PA-C Patient's daughter Melissa calls and states that patient's blood sugars are continuing to low. 05/26/2022 0722 AM 122 Patient took Tresiba 66 units and Humalog 59 uints as well as patient ate breakfast. 0923 AM 112 1017 AM 75 1126 AM 77 Daughter reports that patient ate fruit and did not take lunch dose of Humalog 1230 PM 78 0622 PM 85 Patient ate dinner at 7 PM, rechecked sugar at 0733 PM. Blood sugar was 127. Patient took Tresiba 66 units and Humalog 59 units. 0917 PM 70 Patient ate a bowl of potato chips 0951 PM 83 At 0208 AM Melissa was wakened by son stating that patient was not feeling well. Patient's blood sugar at this time was 65. At 0238 AM, patient's blood sugar was 63. Patient ate 2 pieces of pizza and 2 small pieces of garlic bread. 0400 AM 146 0446 AM 167 Patient was asleep until 1130 AM. Blood sugar at 1145 AM is 111. Patient did not take morning Tresiba or Humalog due to being a sleep. Patient unsure about taking lunch time dose of Humalog. Daughter reports that they have been trying to lose weight and they have been watching their carb intake. Reports that at 530 AM they will eat a small yogurt and fruit, around 9 AM egg omelets and usually sausage or patel, and at lunch patient usually has a sandwich and a side of some sort. Dinners are usually in between 7-7:30. Daughter asking about insulin orders. See also message below: Please review and advise, Afia Lee RN Pt's daughter calls to report more low blood sugars. Pt had called in yesterday also. This is what pt was doing with insulin: Reports she is taking humalog 66 breakf-40 lunch(forgot yesterday as she was napping)-84 dinner. Tresiba 88 bid, and trulicity 4.5 mg weekly. Please advise patient. This is what pt was advised: Lower insulin degludec to 66u daily twice a day Lower insulin Lispro to 59u breakfast, 36u lunch, 76u dinner Daughter reports pt forgot this morning and took humalog 66 units instead of 59 units. Pt woke up at 3:30 am -bs 63 - pt ate watermelon. 4:19 am-71. 6:38 am - 111 -pt ate sloppy yanelis sandwich and watermelon and had insulin. 8:54 am-73 11:17 am - 56 -ate a peanut butter sandwich 11:42 am- 60 manually. Other readings were on glucose reader. Please review and advise. Jennifer Nugent LPN documented in this encounter [facility] 05-27-2022 Miscellaneous Notes Patient returned call and states she thinks she passed a kidney stone. Discomfort has improved and tylenol effective at this time. Pt states no longer needs request below. Dhara Naylor RN Left message for patient to return call. Becky Jimenez Ma Will need testing to establish stone if still having pain. Will need OV to examine and check urine. Thanks, Gigi Rizzo PA-C 05/21/22 was given #12 hydrocodone following virtual visit for kidney stone. Rosa Maria Menjivar is calling Jvoany Rizzo PA-C today to request pain medication for a kidney stone. Please call her cell number. Patient has been identified by name and birthdate. Duration of symptoms: N/A Person calling: self Call patient at: on cell [phone] (home) [phone] (cell) Was an appointment scheduled: No Closing statement: Symptom Call: Thank you for calling [facility], your call is very important. A nurse will call in approximately 2-4 hours during business hours. If this is an emergency, please contact 911. Bernie Ayala documented in this encounter [facility] 05-24-2022 Miscellaneous Notes Patient notified of dosage adjustments and med list updated Please have her: Lower insulin degludec to 66u daily twice a day Lower insulin Lispro to 59u breakfast, 36u lunch, 76u dinner Report any blood sugar less than 90 Thanks, Gigi Rizzo PA-C Patient phoned to let pcp know she is having low BS readings since last night: 72 right now, last night at 5:31 pm 64, 63, 59, 57, 60, 65, 84, 86, 167, 129, 95. Reports she is taking humalog 66 breakf-40 lunch(forgot yesterday as she was napping)-84 dinner. Tresiba 88 bid, and trulicity 4.5 mg weekly. Please advise patient. documented in this encounter [facility] 05-21-2022 Note HNO ID: [id number] Author: Jovany Rizzo PA-C Service: ? Author Type: Physician Film Composer Type: Progress Notes Filed: 05/21/2022 11:22 AM Note Text: MyChart video visit was used for evaluation of this patient. Location of patient: [place] Patient was offered a virtual/telemedicine appointment in lieu of an office visit due to recommendations to reduce patient exposure to COVID-19. Patient is aware of limitations of performing the visit without a face to face visit in the office setting and agrees. I have communicated my name and active licensure. The patient's identity and physical location were verified at the time of this visit. Either the patient or their legal sales representative education courses has been informed of the risks and benefits of -- and alternatives to -- treatment through a remote evaluation and consents to proceed with the evaluation remotely. 10:23 AM 56 year old female with c/o scheduled follow up States trying to pass a kidney stone which started this morning Hurts, has passed many before. Drinking a lot of water. Pain level 6-7/10. Has a sinus infection., Blowing out blood from nose. No fever. Coughing up phlegm: swallows. Nasal blowing thick yellow Breathing okay. O2 sats low nineties at worst. Essential Hypertension: Current meds: Furosemide 40 mg daily Lisinopril hydrochlorothiazide 20-12.5 mg 2 tablets once daily Atenolol 50 mg daily Potassium chloride 10 mEq 2 tablets daily with breakfast Patient is compliant with meds Yes Monitors bp at home: Yes once in awhile. If yes, readings: 120/74ish Denies side effects: Yes. Chest pain: some chest pain surfacy . Dyspnea: chronic. Edema: nothing new or worse with chronic. Palpitations: intermittent palpitations for years, usually in evenings. Syncope: No. Headache: No. Dizziness: No. Last 3 Encounter BP Readings: Date: BP: 06/16/2021 120/76 11/07/2020 130/68 10/16/2019 120/62 Last 2 Encounter Wt Readings: Date: Wt: 06/16/2021 147.4 kg (325 lb) 11/07/2020 149.4 kg (329 lb 6.4 oz) Mixed hyperlipidemia: Current medication Atorvastatin 40 mg daily Taking medication consistently Yes Observing low cholesterol high fiber diet Yes Muscle aches chronic Stomach complaints/ diarrhea alternates with constipation, diarrhea Last 2 Lipids: Component Latest Ref Rng AND Units 10/14/2021 05/13/2022 Cholesterol, Total <200 mg/dL 103 125 Triglyceride <150 mg/dL 224 (H) 250 (H) HDL Cholesterol >39 mg/dL 32 (L) 37 (L) Non HDL Cholesterol <130 mg/dL 71 88 Fasting Time hrs 12 10 VLDL Cholesterol <30 mg/dL 45 (H) 50 (H) TC:HDL Ratio <5.10 3.22 3.38 LDL Cholesterol <100 mg/dL 26 38 LDL:HDL Ratio <2.54 0.81 1.03 Pvd (peripheral vascular disease) ([facility]) Current medications: ASA 81 mg daily 01/15/2022 PVR RABI 1.00, LABI 0.95 Chronic hypoxemic respiratory failure (hcc) Chronic obstructive pulmonary disease, unspecified copd type ([facility]) Obstructive sleep apnea syndrome Lung nodules Current medications: O2 2 L/min nasal cannula continuous CPAP 11 cm with 20-minute ramp and humidification Leaf Stamper: Has established with Dr. Gallegos. Interval history: 05/13/2022 Right lung groundglass nodule is stable. No developing suspicious nodule or mass. Stable adenopathy. Stable bilateral adrenal nodules. New left thyroid nodule. Ultrasound recommended 07/16/2021 last visit with pulmonology: Stable 01/12/2021 CT chest WO: Multiple pulmonary nodules again identified, stable upper lung zones, right base nodules resolved with 3 nodules persistent but less discrete, groundglass appearance, new subcentimeter groundglass nodule right lower lobe. Current medications: Albuterol HFA 90 mcg 2 puffs every 4 hours. CPAP 11 cm nasal mask with 20-minute ramp and humidification O2 2 L/min nasal cannula Worsening shortness of breath: No. Cough: just got over URI, cough is better. Home Covid test neg, was better a few weeks and now sick again with sinus drainage. Nofever Asking for ATB. Wheezing: Yes. Mild, off and on Smokin/2 PPD, goes outside to smoke. Tried patches for a while. Compliant with medications: Yes. Using rescue inhaler: none available- hasn't needed. CPAP: compliant Type 2 diabetes mellitus without complication, with long-term current use of insulin ([facility]) Albuminuria Current medications: Lispro 200 unit: 66 units breakfast, 40 units lunch, 94 units dinner Insulin degludec 88 units subcu twice daily Dulaglutide 4.5 mg subcu weekly Metformin XR 500 mg 2 tablet twice daily with meals Taking medication as directed consistently? Yes Medical Issues / Complications: hypertension and hyperlipidemia Checking blood sugars at home? Off and on. Terrell 139 this morning. Average Terrell for month 171 Watching diet? Yes- doing fairly well . Does eat spaghetti. Doing keto most of the time with daughter. Physical Activity: Sedentary Hypoglycemic spells? Has had a couple lows at (more content not included)... [facility] 05-21-2022 History of Present illness Narrative [employer] video visit was used for evaluation of this patient. Location of patient: [place] Patient was offered a virtual/telemedicine appointment in lieu of an office visit due to recommendations to reduce patient exposure to COVID-19. Patient is aware of limitations of performing the visit without a face to face visit in the office setting and agrees. I have communicated my name and active licensure. The patient's identity and physical location were verified at the time of this visit. Either the patient or their legal sales representative education courses has been informed of the risks and benefits of -- and alternatives to -- treatment through a remote evaluation and consents to proceed with the evaluation remotely. 10:23 AM 56 year old female with c/o scheduled follow up States trying to pass a kidney stone which started this morning Hurts, has passed many before. Drinking a lot of water. Pain level 6-7/10. Has a sinus infection., Blowing out blood from nose. No fever. Coughing up phlegm: swallows. Nasal blowing thick yellow Breathing okay. O2 sats low nineties at worst. Essential Hypertension: Current meds: Furosemide 40 mg daily Lisinopril hydrochlorothiazide 20-12.5 mg 2 tablets once daily Atenolol 50 mg daily Potassium chloride 10 mEq 2 tablets daily with breakfast Patient is compliant with meds Yes Monitors bp at home: Yes once in awhile. If yes, readings: 120/74ish Denies side effects: Yes. Chest pain: some chest pain surfacy . Dyspnea: chronic. Edema: nothing new or worse with chronic. Palpitations: intermittent palpitations for years, usually in evenings. Syncope: No. Headache: No. Dizziness: No. Last 3 Encounter BP Readings: Date: BP: 06/16/2021 120/76 11/07/2020 130/68 10/16/2019 120/62 Last 2 Encounter Wt Readings: Date: Wt: 06/16/2021 147.4 kg (325 lb) 11/07/2020 149.4 kg (329 lb 6.4 oz) Mixed hyperlipidemia: Current medication Atorvastatin 40 mg daily Taking medication consistently Yes Observing low cholesterol high fiber diet Yes Muscle aches chronic Stomach complaints/ diarrhea alternates with constipation, diarrhea Last 2 Lipids: Component Latest Ref Rng & Units 10/14/2021 05/13/2022 Cholesterol, Total <200 mg/dL 103 125 Triglyceride <150 mg/dL 224 (H) 250 (H) HDL Cholesterol >39 mg/dL 32 (L) 37 (L) Non HDL Cholesterol <130 mg/dL 71 88 Fasting Time hrs 12 10 VLDL Cholesterol <30 mg/dL 45 (H) 50 (H) TC:HDL Ratio <5.10 3.22 3.38 LDL Cholesterol <100 mg/dL 26 38 LDL:HDL Ratio <2.54 0.81 1.03 Pvd (peripheral vascular disease) (hcc) Current medications: ASA 81 mg daily 01/15/2022 PVR RABI 1.00, LABI 0.95 Chronic hypoxemic respiratory failure (hcc) Chronic obstructive pulmonary disease, unspecified copd type (hcc) Obstructive sleep apnea syndrome Lung nodules Current medications: O2 2 L/min nasal cannula continuous CPAP 11 cm with 20-minute ramp and humidification Leaf Stamper: Has established with Dr. Gallegos. Interval history: 05/13/2022 Right lung groundglass nodule is stable. No developing suspicious nodule or mass. Stable adenopathy. Stable bilateral adrenal nodules. New left thyroid nodule. Ultrasound recommended 07/16/2021 last visit with pulmonology: Stable 01/12/2021 CT chest WO: Multiple pulmonary nodules again identified, stable upper lung zones, right base nodules resolved with 3 nodules persistent but less discrete, groundglass appearance, new subcentimeter groundglass nodule right lower lobe. Current medications: Albuterol HFA 90 mcg 2 puffs every 4 hours. CPAP 11 cm nasal mask with 20-minute ramp and humidification O2 2 L/min nasal cannula Worsening shortness of breath: No. Cough: just got over URI, cough is better. Home Covid test neg, was better a few weeks and now sick again with sinus drainage. Nofever Asking for ATB. Wheezing: Yes. Mild, off and on Smokin/2 PPD, goes outside to smoke. Tried patches for a while. Compliant with medications: Yes. Using rescue inhaler: none available- hasn't needed. CPAP: compliant Type 2 diabetes mellitus without complication, with long-term current use of insulin (hcc) Albuminuria Current medications: Lispro 200 unit: 66 units breakfast, 40 units lunch, 94 units dinner Insulin degludec 88 units subcu twice daily Dulaglutide 4.5 mg subcu weekly Metformin XR 500 mg 2 tablet twice daily with meals Taking medication as directed consistently? Yes Medical Issues / Complications: hypertension and hyperlipidemia Checking blood sugars at home? Off and on. Terrell 139 this morning. Average Terrell for month 171 Watching diet? Yes- doing fairly well . Does eat spaghetti. Doing keto most of the time with daughter. Physical Activity: Sedentary Hypoglycemic spells? Has had a couple lows at night. Any visual disturbance? No Chest pain? No New numbness, tingling or loss of sensation? Chronic in fingers, nothing new. Any recent foot problems, sores or rashes? No Any recent or sudden weight loss? Hasn't checked for awhile Change in urination? No. If yes: Any recent illness? Yes, URI Last eye exam: due. Last foot exam: due HBA1C: Hemoglobin A1C (%) Date Value 05/13/2022 7.1 10/14/2021 8.4 10/22/2020 9.8 03/24/2020 10.3 ) ) CMP: Glucose 210 05/13/2022 BUN 21 05/13/2022 Creatinine (POCT) 0.45 05/13/2022 Sodium 138 05/13/2022 Potassium 3.7 05/13/2022 Chloride 100 05/13/2022 CO2 32 05/13/2022 Protein, Total 7.2 05/13/2022 Albumin 3.7 05/13/2022 Calcium 9.8 05/13/2022 Alkaline Phosphatase 96 05/13/2022 Bilirubin, Total <0.2 05/13/2022 AST 10 05/13/2022 ALT 9 05/13/2022 Last 2 Encounter Wt Readings: Date: Wt: 06/16/2021 147.4 kg (325 lb) 11/07/2020 149.4 kg (329 lb 6.4 oz) Depression, unspecified depression type Anxiety Panic disorder Current medications: Buspirone 5 mg 3 times daily Venlafaxine ER 225 mg (150+75) daily Feels like anxiety is just part of her personality Feels down a few days each month. Worries about grandchildren who live with her. Polycythemia Irritable bowel syndrome, unspecified type: A little different, not eating bread or carbs, doing keto. A little constipated. Affected by diabetic meds: diarrhea, constipation. Has on occasion been incontinent at night with feces. Has a lot of gas. Irritable bowel syndrome, unspecified type: Affected by diabetic meds: diarrhea, constipation. No recent fecal incontinence or diarrhea DDD HISTORIES FAMILY HISTORY Problem Relation Age of Onset COPD Mother Ischemic Heart Disease Father Ischemic Heart Disease Sister Colon Cancer Maternal Grandfather Diabetes Maternal Aunt Diabetes Paternal Aunt Breast Cancer Other Maternal cousin PAST MEDICAL HISTORY Diagnosis Date Chronic hypoxemic respiratory failure (HCC) 07/16/2021 Due to morbid obesity. COPD (chronic obstructive pulmonary disease) (HCC) with chronic hypoxemic respiratory failure; on oxygen 2 liters continuously Degenerative disc disease Depression Diabetes mellitus type II Dyslipidemia Hypertension IBS (irritable bowel syndrome) Microalbuminuria on adwoa inhibitor Obesity Palpitations Panic disorder Renal calculus Renal cell carcinoma of right kidney (HCC) 2009 S/P partial right nephrectomy Sleep apnea uses CPAP Tobacco abuse Urinary calculus, unspecified Renal stones PAST SURGICAL HISTORY Procedure Laterality Date APPENDECTOMY 09/02/2019 DILATION & CURETTAGE DX&/THER NONOBSTETRIC Dilation & curettage LAPAROSCOPY SURG CHOLECYSTECTOMY 2003 Cholecystectomy, lap LITHOTRIPSY XTRCORP SHOCK WAVE Lithotripsy x 2 Stents x 3 MRI ABDOMEN W/ & W/O CONTRAST 10/16/2021 10/16/2021 [facility] MRI w/wo IVCON: no patterns to suggest malignancy on enhancement. Normal portal and hepatic veins. Staghorn calculus in the left kidney upper pole, 3cm simple cyst attached to gallbladder duct, simple small liver cyst inferior right lobe, right adrenal adenoma with benign characteristics. OTHER right lower portion of kidney removed in 2009 PAST SURGICAL HISTORY OF Repair of right arm fx as child Social History Tobacco Use Smoking status: Every Day Packs/day: 2.00 Years: 38.00 Pack years: 76.00 Types: Cigarettes Start date: 12/06/1979 Smokeless tobacco: Never Tobacco comments: Down to one ppd Vaping Use Vaping Use: Never used Substance Use Topics Alcohol use: No Drug use: No ACTIVE PROBLEM LIST Staghorn Renal Calculus Renal Colic Hydronephrosis Calculus of Ureter Foreign Body in Bladder and Urethra Asa Class Iii Flank Hernia Morbid Obesity With Bmi of 50.0-59.9, Adult (Hcc) Depression Ddd (Degenerative Disc Disease), Lumbar Ibs (Irritable Bowel Syndrome) Panic Disorder Obstructive Sleep Apnea Syndrome Hypertension Diabetes Mellitus (Hcc) Lumbago Malignant Neoplasm of Kidney Excluding Renal Pelvis (Hcc) Mixed Hyperlipidemia Pvd (Peripheral Vascular Disease) (Hcc) Chronic Obstructive Pulmonary Disease (Hcc) Chronic Hypoxemic Respiratory Failure (Hcc) Anxiety Lung Nodules gallbladder duct cyst Adrenal Adenoma, Right Current Outpatient Medications Medication Sig Dispense Refill furosemide (LASIX) 40 mg tablet Take 1 tablet by mouth once daily. 28 tablet 5 busPIRone (BUSPAR) 5 mg tablet Take 1 tablet by mouth three times daily. 90 tablet 5 potassium chloride (K-TAB) 10 mEq tablet Take 2 tablets by mouth daily with breakfast. 60 tablet 5 insulin lispro (HUMALOG) 200 unit/mL (3 mL) injection Inject subcutaneously 66 units with breakfast, 40 units with lunch and 94 units with dinner 4 Each 2 albuterol HFA (PROVENTIL HFA, VENTOLIN HFA) 90 mcg/actuation inhaler Inhale 2 Puffs as instructed every 4 hours as needed. 1 Each 5 gabapentin (NEURONTIN) 300 mg capsule Take 1 capsule by mouth three times daily for 90 days. Appointment needed for further refills. 90 capsule 2 dulaglutide (TRULICITY) 4.5 mg/0.5 mL pen injector Inject 4.5 mg subcutaneously one time a week. 6 mL 4 insulin degludec (TRESIBA FLEXTOUCH U-200) 200 unit/mL (3 mL) injection Inject 88 Units subcutaneously twice daily. 81 mL 1 lisinopril-hydroCHLOROthiazide (PRINZIDE,ZESTORETIC) 20-12.5 mg per tablet Take 2 tablets by mouth once daily. 60 tablet 5 atenolol (TENORMIN) 50 mg tablet Take 1 tablet by mouth once daily. 30 tablet 5 atorvastatin (LIPITOR) 40 mg tablet Take 1 tablet by mouth daily at bedtime. 30 tablet 5 venlafaxine ER (EFFEXOR XR) 75 mg 24 hr capsule TAKE 1 CAPSULE BY MOUTH DAILY IN ADDITION TO 150 MG A DAY. 30 capsule 5 flash glucose scanning reader (FREESTYLE TERRELL 2 READER) 1 Each four times daily. 1 Each 0 flash glucose sensor (FREESTYLE TERRELL 2 SENSOR) kit 1 Each four times daily. 6 Kit 3 Insulin [place], Disposable, (ULTICARE PEN NEEDLE) 29 gauge x 1/2 USE FIVE TIMES A DAY 200 Each 5 venlafaxine ER (EFFEXOR XR) 150 mg 24 hr capsule Take 1 capsule by mouth once daily. 84 capsule 3 metFORMIN ER (GLUCOPHAGE XR) 500 mg 24 hr tablet Take 2 tablets by mouth twice daily with meals. 120 tablet 11 blood sugar diagnostic (FREESTYLE PRECISION WENDY STRIPS) test strip Use as instructed to check blood sugar when indicated by reader. Checking once daily. 25 strips per month. 25 Strip 5 Lancets lancets Test blood sugar(s) 4 times daily. Dx: Type 2 DM - Uncontrolled E11.65 Insulin: Yes 150 Each 11 CPAP 11 cm via nasal mask with 20 min ramp and humidification. 1 Device 0 OXYGEN, HOME THERAPY, 2 L/min by Nasal Cannula route continuous. blood sugar diagnostic (BLOOD GLUCOSE TEST) test strip Test blood sugar(s) 4 times daily. Dx: Type 2 DM - Uncontrolled E11.65 Insulin: Yes 150 Strip 11 ammonium lactate (LAC-HYDRIN) 12 % cream Apply 1 application to affected area as needed. 56 g 1 COMPOUNDED PRESCRIPTION C-PAP MASK HOSES, FILTERS 1 Each 0 glucose 4 gram chewable tablet Take 4 tablets by mouth as needed. For sugar less than 70 10 tablet 1 COMPOUNDED PRESCRIPTION COMPRESSION STOCKINGS 20-30 mm Knee high. DX: venous insufficiency 1 Each 0 COMPOUNDED PRESCRIPTION cpap supplies: sleep apnea 1 Each 0 COMPOUNDED PRESCRIPTION CPAP mask 1 Each 0 No current facility-administered medications for this visit. HEPATITIS B(1 of 3 - 3-dose series) Never done HEPATITIS C SCREENING Never done HIV SCREENING Never done PAP TESTING Never done ALPHA-1 ANTITRYPSIN DEFICIENCY SCREENING Never done HPV TESTING Never done DILATED RETINAL EXAM due on 11/06/2015 SHINGRIX VACCINE(1 of 2) Never done PNEUMOCOCCAL(2 - PCV) due on 02/03/2017 MAMMOGRAM due on 03/31/2018 COVID-19 VACCINE(4 - Booster for Pfizer series) due on 08/11/2021 DIABETIC FOOT EXAM due on 06/16/2022 EXAM: LMP 06/12/2015 Pleasant overweight adult woman in no acute distress. Alert and oriented all spheres. Normal affect and cognition. Speech normal. No deficits to learning or comprehension. Speaking in full sentences easily. Nasal O2 in place. Identifies current SaO2 94% No scleral icterus of conjunctival injection No cough. No sinus tenderness on self palpation. No tenderness over cervical nodes. ASSESSMENT/PLAN: 1. Essential hypertension - ICD9: 401.9, ICD10: I10 (primary diagnosis) - good control - Continue current medication(s) - Recommended regular aerobic exercise. - Recommend home blood pressure monitoring, to bring results in on next visit - Goal of BP <130/80 2. Mixed hyperlipidemia - ICD9: 272.2, ICD10: E78.2 - good control - Continue current medication. - Encouraged following a low fat, low cholesterol diet. 3. PVD (peripheral vascular disease) (HCC) - ICD9: 443.9, ICD10: I73.9 Unable to evaluate, no current sx. 4. Chronic hypoxemic respiratory failure (HCC) - ICD9: 518.83, 799.02, ICD10: J96.11 Stable on medication Follows with Dr. Gallegos 5. Type 2 diabetes mellitus without complication, with long-term current use of insulin (HCC) - ICD9: 250.00, V58.67, ICD10: E11.9, Z79.4 - Controlled Drop evening meal insulin by 10u 6. Albuminuria - ICD9: 791.0, ICD10: R80.9 Need to recheck. 7. Depression, unspecified depression type - ICD9: 311, ICD10: F32.A Stable, minor sx a few days a month. Feels medication helping: continue 8. Anxiety - ICD9: 300.00, ICD10: F41.9 Stable, as above 9. Panic disorder - ICD9: 300.01, ICD10: F41.0 Stable, as above 10. Polycythemia - ICD9: 238.4, ICD10: D75.1 Recheck. Urged to quit smoking. 11. Kidney stone - ICD9: 592.0, ICD10: N20.0 Has hx of multiple stones. Push fluids. Small quantity of pain medication provided. - HYDROCODONE 7.5 MG-ACETAMINOPHEN 325 MG TABLET 11:03 AM 44 minute call Jovany Rizzo PA-C documented in this encounter [facility] 05-13-2022 Note HNO ID: [id number] Author: RT Elda([place]) Service: ? Author Type: Small Animal Veterinarian Type: Progress Notes Filed: 05/13/2022 9:29 AM Note Text: Radiology Service Progress Note PATIENT NAME: Rosa Maria Menjivar DATE OF SERVICE: May 13, 2022 TIME: 9:29 AM PATIENT IDENTITY VERIFICATION COMPLETED USING TWO (2) IDENTIFIERS: Name and Date of confirmed by patient verbally. FALL SCREENING: Has the patient had 2 falls in the last year or 1 fall with injury or currently using an Ambulatory Assistive Device (Walker, Cane, Wheelchair, Crutches, etc.)? No PATIENT GENDER DATA: Female. status: : No status: NO. PATIENT RELEVANT IMPLANT DATA REVIEWED: Yes RADIOLOGY DEPARTMENT: CT; Exam(s) Completed: Chest PERIPHERAL IV DATA: Not applicable SIGNED BY: RT Ron(R) May 13, 2022 9:29 AM [facility] 05-13-2022 History of Present illness Narrative Radiology Service Progress Note PATIENT NAME: Rosa Maria Menjivar DATE OF SERVICE: May 13, 2022 TIME: 9:29 AM PATIENT IDENTITY VERIFICATION COMPLETED USING TWO (2) IDENTIFIERS: Name and Date of confirmed by patient verbally. FALL SCREENING: Has the patient had 2 falls in the last year or 1 fall with injury or currently using an Ambulatory Assistive Device (Walker, Cane, Wheelchair, Crutches, etc.)? No PATIENT GENDER DATA: Female. status: : No status: NO. PATIENT RELEVANT IMPLANT DATA REVIEWED: Yes RADIOLOGY DEPARTMENT: CT; Exam(s) Completed: Chest PERIPHERAL IV DATA: Not applicable SIGNED BY: RT Ron(R) May 13, 2022 9:29 AM documented in this encounter [facility] 04-29-2022 Miscellaneous Notes Patient has been identified by name and date of : Yes, Provider Date Time Pharmacy phones for refill(s): Requested Prescriptions Pending Prescriptions Disp Refills furosemide (LASIX) 40 mg tablet 28 tablet 5 Sig: Take 1 tablet by mouth once daily. busPIRone (BUSPAR) 5 mg tablet 90 tablet 5 Sig: Take 1 tablet by mouth three times daily. potassium chloride (K-TAB) 10 mEq tablet 60 tablet 5 Sig: Take 2 tablets by mouth daily with breakfast. Date of last office visit with pcp: Date of last office visit in primary care: 09/24/21 No future OV scheduled Last 2 Encounter Wt Readings: Date: Wt: 06/16/2021 147.4 kg (325 lb) 11/07/2020 149.4 kg (329 lb 6.4 oz) Previous labs/tests for medication: Blood Pressure: BUN (mg/dL) Date Value 10/14/2021 18 10/22/2020 19 Sodium (mmol/L) Date Value 10/14/2021 140 10/22/2020 138 Last 1 Encounter BP Readings: Date: BP: 06/16/2021 120/76 Please advise. Thank you. Marcy Pandya, RN documented in this encounter [facility] 04-15-2022 Miscellaneous Notes Patient has been identified by name and date of : Yes Requested Prescriptions Pending Prescriptions Disp Refills insulin lispro (HUMALOG) 200 unit/mL (3 mL) injection 4 Each 2 Sig: Inject subcutaneously 66 units with breakfast, 40 units with lunch and 94 units with dinner EDITA-09/24/21 Labs-10/14/21 NOV-none RX INSTRUCTIONS: Patient requesting a call when RX is approved and sent to the pharmacy. Please call patient at: [phone]. Janee Blanco Pss documented in this encounter [facility] 03-22-2022 Miscellaneous Notes Detailed message left for pt Telephone on 03/22/22 HGB A1C COMP METABOLIC PANEL CBC + DIFF LIPID PANEL BASIC Thanks, Gigi Rizzo PA-C Patient calls and states that she is planning on setting up her normal checkup. Patient will do this when her daughter comes home and can give her a ride to appointment. Patient has CT scan tomorrow morning. Patient asking if PCP will put in lab orders so she can get them done before CT scan? Please review and advise, Afia Lee RN documented in this encounter [facility] 03-11-2022 Note HNO ID: [id number] Author: Patti Gallegos MD Service: ? Author Type: Physician Type: Progress Notes Filed: 03/11/2022 3:41 PM Note Text: VIRTUAL VISIT PROGRESS NOTE This is a virtual visit using [employer] video visit. It required patient-provider interaction for the medical decision making as documented below. Rosa Maria Menjivar is a 56 year old female seen for COPD. HPI: Morbidly obese female current smoker with PMH significant for COPD (FEV1 1.50 L 55%) ,chronic hypoxemic respiratory failure mainly due to obesity, DM2, HLD, HTN, RCC s/p partial right nephrectomy, KELLIE on CPAP former patient of Dr. Bernard, new to me. She states she has been about the same since her last virtual visit. Mainly has dyspnea on exertion, no cough or chest pain. No significant sputum production or history of recurrent bronchitis. No recent hospitalizations. She does note intermittent wheezing depending on her activity. She currently does not have inhaler to use. She had been on inhalers in the past. Has a known history of abnormal chest CT with pulmonary nodules. Last chest CT in 2021 showed resolution of some of the nodules but she has persistent scattered solid and groundglass nodules. She has not had follow-up imaging. She is a former 2 pack a day smoker currently down to 1 pack a day. Unfortunately, she has been unable to quit smoking although she is interested in trying nicotine patches and nicotine gum. DME: [employer] 2 L PFT 2020: Review of pulmonary function test show mainly restriction, small airways obstruction and normal diffusing capacity Imaging: DATE OF EXAM: Jan 12 2021 1:22PM [facility] 0541 - CT CHEST WO IVCON / PROCEDURE REASON: Lung nodules IMPRESSION: Stable shotty and enlarged middle mediastinal lymph nodes Multiple pulmonary nodules again identified which are stable in the upper lung zones. At the right base overall have resolved. There are 3 nodules at the right lung base that persist but have become less discrete, smaller in size and somewhat groundglass in appearance. There is a subcentimeter groundglass nodule within the right lower lobe laterally image 101:6 which is new. The remainder of the examination is unchanged and noncontributory. I personally reviewed the images as well as with the patient by screen sharing which show scattered solid and groundglass nodules HISTORY REVIEWED (electronic chart updated): PAST MEDICAL HISTORY Diagnosis Date Chronic hypoxemic respiratory failure (HCC) 07/16/2021 Due to morbid obesity. COPD (chronic obstructive pulmonary disease) (HCC) with chronic hypoxemic respiratory failure; on oxygen 2 liters continuously Degenerative disc disease Depression Diabetes mellitus type II Dyslipidemia Hypertension IBS (irritable bowel syndrome) Microalbuminuria on adwoa inhibitor Obesity Palpitations Panic disorder Renal calculus Renal cell carcinoma of right kidney (HCC) 2009 S/P partial right nephrectomy Sleep apnea uses CPAP Tobacco abuse Urinary calculus, unspecified Renal stones PAST SURGICAL HISTORY Procedure Laterality Date APPENDECTOMY 09/02/2019 DILATION AND CURETTAGE DXAND/THER NONOBSTETRIC Dilation AND curettage LAPAROSCOPY SURG CHOLECYSTECTOMY 2003 Cholecystectomy, lap LITHOTRIPSY XTRCORP SHOCK WAVE Lithotripsy x 2 Stents x 3 MRI ABDOMEN W/ AND W/O CONTRAST 10/16/2021 10/16/2021 [facility] MRI w/wo IVCON: no patterns to suggest malignancy on enhancement. Normal portal and hepatic veins. Staghorn calculus in the left kidney upper pole, 3cm simple cyst attached to gallbladder duct, simple small liver cyst inferior right lobe, right adrenal adenoma with benign characteristics. OTHER right lower portion of kidney removed in 2009 PAST SURGICAL HISTORY OF Repair of right arm fx as child FAMILY HISTORY Problem Relation Age of Onset COPD Mother Ischemic Heart Disease Father Ischemic Heart Disease Sister Colon Cancer Maternal Grandfather Diabetes Maternal Aunt Diabetes Paternal Aunt Breast Cancer Other Maternal cousin Social History Tobacco Use Smoking status: Every Day Packs/day: 2.00 Years: 38.00 Pack years: 76.00 Types: Cigarettes Start date: 12/06/1979 Smokeless tobacco: Never Tobacco comments: A pack or less per day, depending on the day, 07/16/2021, TO Vaping Use Vaping Use: Never used Substance Use Topics Alcohol use: No Drug use: No Current Outpatient Medications Medication Sig gabapentin (NEURONTIN) 300 mg capsule Take 1 capsule by mouth three times daily for 90 days. Appointment needed for further refills. dulaglutide (TRULICITY) 4.5 mg/0.5 mL pen injector Inject 4.5 mg subcutaneously one time a week. insulin lispro (HUMALOG) 200 unit/mL (3 mL) injection Inject subcutaneously 66 units with breakfast, 40 units with lunch and 94 units with dinner insulin degludec (TRESIBA FLEXTOUCH U-200) 200 unit/mL (3 mL) injection (more content not included)... [facility] 03-05-2022 Miscellaneous Notes Attempted to contact patient re: [employer] VV at number listed. Left message. Patient is active on [employer] and has confirmed login today, are we using [employer] platform for VV today? Unable to do telephone visit. Would need to reschedule to A V.E.T.S.c.a.r.e. VV or F2F. Brittney Pearl LPN Patient called in stating she would like to be called on this number [phone] for her virtual visit with Dr. Gallegos today. Kayla Gallegos LPN documented in this encounter [facility] 03-03-2022 Miscellaneous Notes Patient has been identified by name and date of : Yes, Provider Rizzo Date 03/03/22 Time 1350 Pharmacy phones for refill(s): Requested Prescriptions Pending Prescriptions Disp Refills gabapentin (NEURONTIN) 300 mg capsule 90 capsule 2 Sig: Take 1 capsule by mouth three times daily for 90 days. Appointment needed for further refills. Date of last office visit with pcp: 09/24/21 Date of last office visit in primary care: Last 2 Encounter Wt Readings: Date: Wt: 06/16/2021 147.4 kg (325 lb) 11/07/2020 149.4 kg (329 lb 6.4 oz) Previous labs/tests for medication: Not applicable Please advise. Thank you. Marcy Pandya RN documented in this encounter [facility] 02-02-2022 Miscellaneous Notes Patient has been identified by name and date of : Yes Requested Prescriptions Pending Prescriptions Disp Refills dulaglutide (TRULICITY) 4.5 mg/0.5 mL pen injector 6 mL 4 Sig: Inject 4.5 mg subcutaneously one time a week. insulin lispro (HUMALOG) 200 unit/mL (3 mL) injection 4 Each 2 Sig: Inject subcutaneously 66 units with breakfast, 40 units with lunch and 94 units with dinner RX INSTRUCTIONS: Patient aware RX will be sent to pharmacy. No need to notify patient. Shaila Anderson Pss documented in this encounter [facility] 01-05-2022 Miscellaneous Notes TC to ARNEL who verifies that patient is out of refills of the Humalog pen. EDITA (BERNADETTE) on 09/24/21 No appointment scheduled. Please advise. Thank you. CARMEN Trevino Patient needs this today please. Patient has been identified by name and date of : Yes Requested Prescriptions Pending Prescriptions Disp Refills insulin lispro (HUMALOG) 200 unit/mL (3 mL) injection 4 Each 2 Sig: Inject subcutaneously 66 units with breakfast, 40 units with lunch and 94 units with dinner RX INSTRUCTIONS: Patient aware RX will be sent to pharmacy. No need to notify patient. Shaila Anderson Pss documented in this encounter [facility] 12-11-2021 Miscellaneous Notes LV 09/24/21 No follow up visit Patient has been identified by name and date of : Yes Last office visit in this department: 06/16/2021 RX INSTRUCTIONS: Patient aware RX will be sent to pharmacy. No need to notify patient. Patient phones requesting refills as follows: Requested Prescriptions Pending Prescriptions Disp Refills insulin lispro (HUMALOG) 200 unit/mL (3 mL) injection 4 Each 2 Sig: Inject subcutaneously 66 units with breakfast, 40 units with lunch and 94 units with dinner insulin degludec (TRESIBA FLEXTOUCH U-200) 200 unit/mL (3 mL) injection 81 mL 1 Sig: Inject 88 Units subcutaneously twice daily. Please review and advise. Ernestina Moses Pss documented in this encounter [facility] 12-10-2021 Miscellaneous Notes Patient has been identified by name and date of : Yes Pharmacy phones for refill(s): Requested Prescriptions Pending Prescriptions Disp Refills lisinopril-hydroCHLOROthiazide (PRINZIDE,ZESTORETIC) 20-12.5 mg per tablet 60 tablet 5 Sig: Take 2 tablets by mouth once daily. atenolol (TENORMIN) 50 mg tablet 30 tablet 5 Sig: Take 1 tablet by mouth once daily. atorvastatin (LIPITOR) 40 mg tablet 30 tablet 5 Sig: Take 1 tablet by mouth daily at bedtime. venlafaxine ER (EFFEXOR XR) 75 mg 24 hr capsule 30 capsule 5 Sig: TAKE 1 CAPSULE BY MOUTH DAILY IN ADDITION TO 150 MG A DAY. gabapentin (NEURONTIN) 300 mg capsule 90 capsule 2 Sig: Take 1 capsule by mouth three times daily for 90 days. Appointment needed for further refills. Date of last office visit with pcp: 09-24-21. Next appt: none Last 2 Encounter Wt Readings: Date: Wt: 06/16/2021 147.4 kg (325 lb) 11/07/2020 149.4 kg (329 lb 6.4 oz) Previous labs/tests for medication: Cholesterol: HDL Cholesterol (mg/dL) Date Value 10/14/2021 32 03/24/2020 32 LDL Cholesterol (mg/dL) Date Value 10/14/2021 26 03/24/2020 20 ALT (U/L) Date Value 10/14/2021 16 03/24/2020 18 Non HDL Cholesterol, Nonfasting (mg/dL) Date Value 04/27/2018 66 Non HDL Cholesterol (mg/dL) Date Value 10/14/2021 71 03/24/2020 89 Blood Pressure: BUN (mg/dL) Date Value 10/14/2021 18 10/22/2020 19 Sodium (mmol/L) Date Value 10/14/2021 140 10/22/2020 138 Last 1 Encounter BP Readings: Date: BP: 06/16/2021 120/76 Blood Counts: WBC (k/uL) Date Value 10/14/2021 11.72 10/22/2020 11.88 RBC (m/uL) Date Value 10/14/2021 5.38 10/22/2020 5.44 Hematocrit (%) Date Value 10/14/2021 46.9 10/22/2020 47.1 Hemoglobin (g/dL) Date Value 10/14/2021 14.9 10/22/2020 15.4 Platelet Count (k/uL) Date Value 10/14/2021 252 10/22/2020 244 Liver Function: ALT (U/L) Date Value 10/14/2021 16 03/24/2020 18 AST (U/L) Date Value 10/14/2021 17 03/24/2020 13 Please advise. Thank you. Jovany Rodriguez RN documented in this encounter [facility] 11-11-2021 Miscellaneous Notes EDITA 09/24/21 (virtual) 06/16/21 (in person) NOV no upcoming appt Patient has been identified by name and date of : Yes Requested Prescriptions Pending Prescriptions Disp Refills potassium chloride (K-TAB) 10 mEq tablet 60 tablet 5 Sig: Take 2 tablets by mouth daily with breakfast. furosemide (LASIX) 40 mg tablet 28 tablet 5 Sig: Take 1 tablet by mouth once daily. busPIRone (BUSPAR) 5 mg tablet 90 tablet 5 Sig: Take 1 tablet by mouth three times daily. RX INSTRUCTIONS: Pharmacy initiated this request. No need to notify patient. Gayle Benz [employer] documented in this encounter [facility] 11-02-2021 Miscellaneous Notes MRI in scanned documents To my knowledge, I have not yet seen it. It may have gone to scanning though. Thanks, Gigi Rizzo PA-C Pt called back checking to see if you have received a copy of her MRI done at [facility] in [place]. last week. She is going to give them a call and have them refax . Fax number given. Please advise pt with results . Yesenia Blanco LPN documented in this encounter [facility] 10-26-2021 Miscellaneous Notes Phoned patient and updated her and Melissa on order for consult. Chart notes, labs, order and face sheet forwarded to Dr Klein's office. Please schedule nephro consult Dr. Macias and send last chart notes and recent labs. Telephone on 10/25/21 CONSULT TO NEPHROLOGY Albuminuria (primary encounter diagnosis) Type 2 diabetes mellitus with other specified complication, with long-term current use of insulin ([facility]) Thanks, Gigi Rizzo PA-C documented in this encounter [facility] documented as of this encounter (statuses as of 10/25/2021) [facility] History of Past illness Narrative* Problem Noted Date Resolved Date Pancreatic cyst 10/25/2021 10/25/2021 Overview: Dehiscence of incision 09/18/2009 1 Surgical wound infection 09/18/2009 019 Malignant neoplasm of kidney excluding renal pel vis 11/21/2008 06/25/2015 Urinary complications 03/21/2008 11/19/2015 Acute kidney failure, unspecified 03/21/2008 01/17/2017 documented as of this encounter (statuses as of 11/02/2021) [facility] History of Past illness Narrative* Problem Noted Date Resolved Date Pancreatic cyst 10/25/2021 10/25/2021 Overview: Dehiscence of incision 09/18/2009 1 Surgical wound infection 09/18/2009 019 Malignant neoplasm of kidney excluding renal pel vis 11/21/2008 06/25/2015 Urinary complications 03/21/2008 11/19/2015 Acute kidney failure, unspecified 03/21/2008 01/17/2017 documented as of this encounter (statuses as of 11/12/2021) [facility] History of Past illness Narrative* Problem Noted Date Resolved Date Pancreatic cyst 10/25/2021 10/25/2021 Overview: Dehiscence of incision 09/18/2009 1 Surgical wound infection 09/18/2009 019 Malignant neoplasm of kidney excluding renal pel vis 11/21/2008 06/25/2015 Urinary complications 03/21/2008 11/19/2015 Acute kidney failure, unspecified 03/21/2008 01/17/2017 documented as of this encounter (statuses as of 12/10/2021) [facility] of Past illness Narrative* Problem Noted Date Resolved Date Pancreatic cyst 10/25/2021 10/25/2021 Overview: Dehiscence of incision 09/18/2009 1 Surgical wound infection 09/18/2009 019 Malignant neoplasm of kidney excluding renal pel vis 11/21/2008 06/25/2015 Urinary complications 03/21/2008 11/19/2015 Acute kidney failure, unspecified 03/21/2008 01/17/2017 documented as of this encounter (statuses as of 12/12/2021) [facility] of Past illness Narrative* Problem Noted Date Resolved Date Pancreatic cyst 10/25/2021 10/25/2021 Overview: Dehiscence of incision 09/18/2009 1 Surgical wound infection 09/18/2009 019 Malignant neoplasm of kidney excluding renal pel vis 11/21/2008 06/25/2015 Urinary complications 03/21/2008 11/19/2015 Acute kidney failure, unspecified 03/21/2008 01/17/2017 documented as of this encounter (statuses as of 01/06/2022) [facility] of Past illness Narrative* Problem Noted Date Resolved Date Pancreatic cyst 10/25/2021 10/25/2021 Overview: Dehiscence of incision 09/18/2009 1 Surgical wound infection 09/18/2009 019 Malignant neoplasm of kidney excluding renal pel vis 11/21/2008 06/25/2015 Urinary complications 03/21/2008 11/19/2015 Acute kidney failure, unspecified 03/21/2008 01/17/2017 documented as of this encounter (statuses as of 01/14/2022) [facility] of Past illness Narrative* Problem Noted Date Resolved Date Pancreatic cyst 10/25/2021 10/25/2021 Overview: Dehiscence of incision 09/18/2009 1 Surgical wound infection 09/18/2009 019 Malignant neoplasm of kidney excluding renal pel vis 11/21/2008 06/25/2015 Urinary complications 03/21/2008 11/19/2015 Acute kidney failure, unspecified 03/21/2008 01/17/2017 documented as of this encounter (statuses as of 02/02/2022) [facility] of Past illness Narrative* Problem Noted Date Resolved Date Pancreatic cyst 10/25/2021 10/25/2021 Overview: Dehiscence of incision 09/18/2009 1 Surgical wound infection 09/18/2009 019 Malignant neoplasm of kidney excluding renal pel vis 11/21/2008 06/25/2015 Urinary complications 03/21/2008 11/19/2015 Acute kidney failure, unspecified 03/21/2008 01/17/2017 documented as of this encounter (statuses as of 03/04/2022) [facility] of Past illness Narrative* Problem Noted Date Resolved Date Pancreatic cyst 10/25/2021 10/25/2021 Overview: Dehiscence of incision 09/18/2009 1 Surgical wound infection 09/18/2009 019 Malignant neoplasm of kidney excluding renal pel vis 11/21/2008 06/25/2015 Urinary complications 03/21/2008 11/19/2015 Acute kidney failure, unspecified 03/21/2008 01/17/2017 documented as of this encounter (statuses as of 03/05/2022) [facility] of Past illness Narrative* Problem Noted Date Resolved Date Pancreatic cyst 10/25/2021 10/25/2021 Overview: Dehiscence of incision 09/18/2009 1 Surgical wound infection 09/18/2009 019 Malignant neoplasm of kidney excluding renal pel vis 11/21/2008 06/25/2015 Urinary complications 03/21/2008 11/19/2015 Acute kidney failure, unspecified 03/21/2008 01/17/2017 documented as of this encounter (statuses as of 03/23/2022) [facility] of Past illness Narrative* Problem Noted Date Resolved Date Pancreatic cyst 10/25/2021 10/25/2021 Overview: Dehiscence of incision 09/18/2009 1 Surgical wound infection 09/18/2009 019 Malignant neoplasm of kidney excluding renal pel vis 11/21/2008 06/25/2015 Urinary complications 03/21/2008 11/19/2015 Acute kidney failure, unspecified 03/21/2008 01/17/2017 documented as of this encounter (statuses as of 04/15/2022) [facility] of Past illness Narrative* Problem Noted Date Resolved Date Pancreatic cyst 10/25/2021 10/25/2021 Overview: Dehiscence of incision 09/18/2009 1 Surgical wound infection 09/18/2009 019 Malignant neoplasm of kidney excluding renal pel vis 11/21/2008 06/25/2015 Urinary complications 03/21/2008 11/19/2015 Acute kidney failure, unspecified 03/21/2008 01/17/2017 documented as of this encounter (statuses as of 04/30/2022) [facility] of Past illness Narrative* Problem Noted Date Resolved Date Pancreatic cyst 10/25/2021 10/25/2021 Overview: Dehiscence of incision 09/18/2009 1 Surgical wound infection 09/18/2009 019 Malignant neoplasm of kidney excluding renal pel vis 11/21/2008 06/25/2015 Urinary complications 03/21/2008 11/19/2015 Acute kidney failure, unspecified 03/21/2008 01/17/2017 documented as of this encounter (statuses as of 05/17/2022) [facility] of Past illness Narrative* Problem Noted Date Resolved Date Pancreatic cyst 10/25/2021 10/25/2021 Overview: Dehiscence of incision 09/18/2009 1 Surgical wound infection 09/18/2009 019 Malignant neoplasm of kidney excluding renal pel vis 11/21/2008 06/25/2015 Urinary complications 03/21/2008 11/19/2015 Acute kidney failure, unspecified 03/21/2008 01/17/2017 documented as of this encounter (statuses as of 05/21/2022) [facility]09-11-2022 History of Past illness Narrative* Problem Noted Date Resolved Date Pancreatic cyst 10/25/2021 10/25/2021 Overview: Dehiscence of incision 09/18/2009 1 Surgical wound infection 09/18/2009 019 Malignant neoplasm of kidney excluding renal pel vis 11/21/2008 06/25/2015 Urinary complications 03/21/2008 11/19/2015 Acute kidney failure, unspecified 03/21/2008 01/17/2017 documented as of this encounter (statuses as of 05/21/2022) [facility] History of Past illness Narrative* Problem Noted Date Resolved Date Pancreatic cyst 10/25/2021 10/25/2021 Overview: Dehiscence of incision 09/18/2009 1 Surgical wound infection 09/18/2009 019 Malignant neoplasm of kidney excluding renal pel vis 11/21/2008 06/25/2015 Urinary complications 03/21/2008 11/19/2015 Acute kidney failure, unspecified 03/21/2008 01/17/2017 documented as of this encounter (statuses as of 05/25/2022) [facility] History of Past illness Narrative* Problem Noted Date Resolved Date Pancreatic cyst 10/25/2021 10/25/2021 Overview: Dehiscence of incision 09/18/2009 1 Surgical wound infection 09/18/2009 019 Malignant neoplasm of kidney excluding renal pel vis 11/21/2008 06/25/2015 Urinary complications 03/21/2008 11/19/2015 Acute kidney failure, unspecified 03/21/2008 01/17/2017 documented as of this encounter (statuses as of 05/28/2022) [facility] History of Past illness Narrative* Problem Noted Date Resolved Date Pancreatic cyst 10/25/2021 10/25/2021 Overview: Dehiscence of incision 09/18/2009 1 Surgical wound infection 09/18/2009 019 Malignant neoplasm of kidney excluding renal pel vis 11/21/2008 06/25/2015 Urinary complications 03/21/2008 11/19/2015 Acute kidney failure, unspecified 03/21/2008 01/17/2017 documented as of this encounter (statuses as of 05/28/2022) [facility] History of Past illness Narrative* Problem Noted Date Resolved Date Pancreatic cyst 10/25/2021 10/25/2021 Overview: Dehiscence of incision 09/18/2009 1 Surgical wound infection 09/18/2009 019 Malignant neoplasm of kidney excluding renal pel vis 11/21/2008 06/25/2015 Urinary complications 03/21/2008 11/19/2015 Acute kidney failure, unspecified 03/21/2008 01/17/2017 documented as of this encounter (statuses as of 05/28/2022) [facility] History of Past illness Narrative* Problem Noted Date Resolved Date Pancreatic cyst 10/25/2021 10/25/2021 Overview: Dehiscence of incision 09/18/2009 1 Surgical wound infection 09/18/2009 019 Malignant neoplasm of kidney excluding renal pel vis 11/21/2008 06/25/2015 Urinary complications 03/21/2008 11/19/2015 Acute kidney failure, unspecified 03/21/2008 01/17/2017 documented as of this encounter (statuses as of 06/15/2022) [facility] History of Past illness Narrative* Problem Noted Date Resolved Date Pancreatic cyst 10/25/2021 10/25/2021 Overview: Dehiscence of incision 09/18/2009 1 Surgical wound infection 09/18/2009 019 Malignant neoplasm of kidney excluding renal pel vis 11/21/2008 06/25/2015 Urinary complications 03/21/2008 11/19/2015 Acute kidney failure, unspecified 03/21/2008 01/17/2017 documented as of this encounter (statuses as of 06/28/2022) [facility] History of Past illness Narrative* Problem Noted Date Resolved Date Pancreatic cyst 10/25/2021 10/25/2021 Overview: Dehiscence of incision 09/18/2009 1 Surgical wound infection 09/18/2009 019 Malignant neoplasm of kidney excluding renal pel vis 11/21/2008 06/25/2015 Urinary complications 03/21/2008 11/19/2015 Acute kidney failure, unspecified 03/21/2008 01/17/2017 documented as of this encounter (statuses as of 06/30/2022) [facility] History of Past illness Narrative* Problem Noted Date Resolved Date Pancreatic cyst 10/25/2021 10/25/2021 Overview: Dehiscence of incision 09/18/2009 1 Surgical wound infection 09/18/2009 019 Malignant neoplasm of kidney excluding renal pel vis 11/21/2008 06/25/2015 Urinary complications 03/21/2008 11/19/2015 Acute kidney failure, unspecified 03/21/2008 01/17/2017 documented as of this encounter (statuses as of 07/23/2022) [facility] History of Past illness Narrative* Problem Noted Date Resolved Date Pancreatic cyst 10/25/2021 10/25/2021 Overview: Dehiscence of incision 09/18/2009 1 Surgical wound infection 09/18/2009 019 Malignant neoplasm of kidney excluding renal pel vis 11/21/2008 06/25/2015 Urinary complications 03/21/2008 11/19/2015 Acute kidney failure, unspecified 03/21/2008 01/17/2017 documented as of this encounter (statuses as of 07/12/2022) [facility] History of Past illness Narrative* Problem Noted Date Resolved Date Pancreatic cyst 10/25/2021 10/25/2021 Overview: Dehiscence of incision 09/18/2009 1 Surgical wound infection 09/18/2009 019 Malignant neoplasm of kidney excluding renal pel vis 11/21/2008 06/25/2015 Urinary complications 03/21/2008 11/19/2015 Acute kidney failure, unspecified 03/21/2008 01/17/2017 documented as of this encounter (statuses as of 07/21/2022) [facility] History of Past illness Narrative* Problem Noted Date Resolved Date Pancreatic cyst 10/25/2021 10/25/2021 Overview: Dehiscence of incision 09/18/2009 1 Surgical wound infection 09/18/2009 019 Malignant neoplasm of kidney excluding renal pel vis 11/21/2008 06/25/2015 Urinary complications 03/21/2008 11/19/2015 Acute kidney failure, unspecified 03/21/2008 01/17/2017 documented as of this encounter (statuses as of 07/29/2022) [facility] History of Past illness Narrative* Problem Noted Date Resolved Date Pancreatic cyst 10/25/2021 10/25/2021 Overview: Dehiscence of incision 09/18/2009 1 Surgical wound infection 09/18/2009 019 Malignant neoplasm of kidney excluding renal pel vis 11/21/2008 06/25/2015 Urinary complications 03/21/2008 11/19/2015 Acute kidney failure, unspecified 03/21/2008 01/17/2017 documented as of this encounter (statuses as of 08/06/2022) [facility] History of Past illness Narrative* Problem Noted Date Resolved Date Pancreatic cyst 10/25/2021 10/25/2021 Overview: Dehiscence of incision 09/18/2009 1 Surgical wound infection 09/18/2009 019 Malignant neoplasm of kidney excluding renal pel vis 11/21/2008 06/25/2015 Urinary complications 03/21/2008 11/19/2015 Acute kidney failure, unspecified 03/21/2008 01/17/2017 documented as of this encounter (statuses as of 08/11/2022) [facility] History of Past illness Narrative* Problem Noted Date Resolved Date Pancreatic cyst 10/25/2021 10/25/2021 Overview: Dehiscence of incision 09/18/2009 1 Surgical wound infection 09/18/2009 019 Malignant neoplasm of kidney excluding renal pel vis 11/21/2008 06/25/2015 Urinary complications 03/21/2008 11/19/2015 Acute kidney failure, unspecified 03/21/2008 01/17/2017 documented as of this encounter (statuses as of 08/15/2022) [facility] History of Past illness Narrative* Problem Noted Date Resolved Date Pancreatic cyst 10/25/2021 10/25/2021 Overview: Dehiscence of incision 09/18/2009 1 Surgical wound infection 09/18/2009 019 Malignant neoplasm of kidney excluding renal pel vis 11/21/2008 06/25/2015 Urinary complications 03/21/2008 11/19/2015 Acute kidney failure, unspecified 03/21/2008 01/17/2017 documented as of this encounter (statuses as of 08/20/2022) [facility] History of Past illness Narrative* Problem Noted Date Diagnosed Date Resolved Date Pancreatic cyst 10/25/2021 10/25/2021 Overview: Dehiscence of incision 09/18/200908/29 Surgical wound infection 09/18/2009 Malignant neoplasm of kidney excluding renal pelvis 11/21/2008 06/25/2015 Urinary complications 03/21/20082015 Acute kidney failure, unspecified 03/21/2008 01/17/2017 documented as of this encounter (statuses as of 09/15/2022) [facility] History of Past illness Narrative* Problem Noted Date Diagnosed Date Resolved Date Pancreatic cyst 10/25/2021 10/25/2021 Overview: Dehiscence of incision 09/18/200908/29 Surgical wound infection 09/18/2009 Malignant neoplasm of kidney excluding renal pelvis 11/21/2008 06/25/2015 Urinary complications 03/21/20082015 Acute kidney failure, unspecified 03/21/2008 01/17/2017 documented as of this encounter (statuses as of 10/01/2022) [facility] History of Past illness Narrative* Problem Noted Date Diagnosed Date Resolved Date Pancreatic cyst 10/25/2021 10/25/2021 Overview: Dehiscence of incision 09/18/200908/29 Surgical wound infection 09/18/2009 Malignant neoplasm of kidney excluding renal pelvis 11/21/2008 06/25/2015 Urinary complications 03/21/20082015 Acute kidney failure, unspecified 03/21/2008 01/17/2017 documented as of this encounter (statuses as of 10/06/2022) [facility] History of Past illness Narrative* Problem Noted Date Diagnosed Date Resolved Date Pancreatic cyst 10/25/2021 10/25/2021 Overview: Dehiscence of incision 09/18/200908/29 Surgical wound infection 09/18/2009 Malignant neoplasm of kidney excluding renal pelvis 11/21/2008 06/25/2015 Urinary complications 03/21/20082015 Acute kidney failure, unspecified 03/21/2008 01/17/2017 documented as of this encounter (statuses as of 10/13/2022) [facility] History of Past illness Narrative* Problem Noted Date Diagnosed Date Resolved Date Pancreatic cyst 10/25/2021 10/25/2021 Overview: Dehiscence of incision 09/18/200908/29 Surgical wound infection 09/18/2009 Malignant neoplasm of kidney excluding renal pelvis 11/21/2008 06/25/2015 Urinary complications 03/21/20082015 Acute kidney failure, unspecified 03/21/2008 01/17/2017 documented as of this encounter (statuses as of 11/05/2022) [facility] History of Past illness Narrative* Problem Noted Date Diagnosed Date Resolved Date Pancreatic cyst 10/25/2021 10/25/2021 Overview: Dehiscence of incision 09/18/200908/29 Surgical wound infection 09/18/2009 Malignant neoplasm of kidney excluding renal pelvis 11/21/2008 06/25/2015 Urinary complications 03/21/20082015 Acute kidney failure, unspecified 03/21/2008 01/17/2017 documented as of this encounter (statuses as of 11/27/2022) [facility] History of Past illness Narrative* Problem Noted Date Diagnosed Date Resolved Date Pancreatic cyst 10/25/2021 10/25/2021 Overview: Dehiscence of incision 09/18/200908/29 Surgical wound infection 09/18/2009 Malignant neoplasm of kidney excluding renal pelvis 11/21/2008 06/25/2015 Urinary complications 03/21/20082015 Acute kidney failure, unspecified 03/21/2008 01/17/2017 documented as of this encounter (statuses as of 11/28/2022) [facility] History of Past illness Narrative* Problem Noted Date Diagnosed Date Resolved Date Pancreatic cyst 10/25/2021 10/25/2021 Overview: Dehiscence of incision 09/18/200908/29 Surgical wound infection 09/18/2009 Malignant neoplasm of kidney excluding renal pelvis 11/21/2008 06/25/2015 Urinary complications 03/21/20082015 Acute kidney failure, unspecified 03/21/2008 01/17/2017 documented as of this encounter (statuses as of 12/19/2022) [facility] History of Past illness Narrative* Problem Noted Date Diagnosed Date Resolved Date Pancreatic cyst 10/25/2021 10/25/2021 Overview: Dehiscence of incision 09/18/200908/29 Surgical wound infection 09/18/2009 Malignant neoplasm of kidney excluding renal pelvis 11/21/2008 06/25/2015 Urinary complications 03/21/20082015 Acute kidney failure, unspecified 03/21/2008 01/17/2017 documented as of this encounter (statuses as of 12/27/2022) [facility] History of Past illness Narrative* Problem Noted Date Diagnosed Date Resolved Date Pancreatic cyst 10/25/2021 10/25/2021 Overview: Dehiscence of incision 09/18/200908/29 Surgical wound infection 09/18/2009 Malignant neoplasm of kidney excluding renal pelvis 11/21/2008 06/25/2015 Urinary complications 03/21/20082015 Acute kidney failure, unspecified 03/21/2008 01/17/2017 documented as of this encounter (statuses as of 01/18/2023) [facility] History of Past illness Narrative* Problem Noted Date Diagnosed Date Resolved Date Pancreatic cyst 10/25/2021 10/25/2021 Overview: Dehiscence of incision 09/18/200908/29 Surgical wound infection 09/18/2009 Malignant neoplasm of kidney excluding renal pelvis 11/21/2008 06/25/2015 Urinary complications 03/21/20082015 Acute kidney failure, unspecified 03/21/2008 01/17/2017 documented as of this encounter (statuses as of 01/29/2023) [facility]09-04-2022 Miscellaneous Notes* Telephone Encounter - Kandace Love RN - 10/18/2021 3:30 PM EDT Patient calling with request for medication/refill: Patient/caregiver requesting refill of Humalog be called to [facility] pharmacy at [phone].. Patient denies any new or worsening symptoms of which a provider is not aware: Yes. Allergies reviewed: Yes ALLERGIES Allergen Reactions Morphine Itching Tetanus And Diphthe* Other: See Comments ? Reactive lymphadenopathy Toradol [Ketorolac * Heart racing and nightmares The following medications were verbally ordered by and read back to Dr. Hogan on 10/18/2021 at 3:31 PMby Kandace Love RN. Requested Prescriptions Signed Prescriptions Disp Refills insulin lispro (HUMALOG) 200 unit/mL (3 mL) injection 4 Each 2 Sig: Inject subcutaneously 66 units with breakfast, 40 units with lunch and 94 units with dinner The prescription(s) were phoned and read back to Jim Herrera at [facility]; by Kandace Love RN. Patient/Family notified: Yes Kandace Love RN [facility] Miscellaneous Notes* Telephone Encounter - Jovany Rodriguez RN - 10/16/2021 1:38 PM EDT Patient returned call and given provider's message below with verbalized understanding. Patient reports her daughter will picket labor [employer] container at lab. * Telephone Encounter - Elaine Parker LPN - 10/16/2021 11:59 AM EDT Left message to call office. * Telephone Encounter - Jovany Rizzo PA-C - 10/16/2021 7:53 AM EDT See mychart: large microalbuminuria. Please have her come into obtain container. Telephone on 10/16/21 ALBUMIN QUANT 24H UR CREAT CLEAR 24 HOUR Thanks, Gigi Rizzo PA-C [facility] Miscellaneous Notes* Telephone Encounter - Elaine Parker LPN - 10/15/2021 9:34 AM EDT Please see additional 10/09/21 note her Chem panel was faxed as requested. A1C added for patient. * Telephone Encounter - Jovany Rizzo PA-C - 10/15/2021 8:01 AM EDT Please have lab run [id number] from [facility] Telephone on 10/09/21 HGB A1C Thanks, Gigi Rizzo PA-C * Telephone Encounter - Sharon Horan LPN - 10/09/2021 2:19 PM EDT Patient calling said she is having MRI done on October 16 in [place]. She plans to come in to have lab work done that Gigi Rizzo has ordered possibly Tuesday. She is needing a copy of the BUN faxed. Patient will call back, she will get name of facility and who to send results to and fax number. [facility] in [facility] Miscellaneous Notes* Telephone Encounter - Elaine Parker LPN - 10/14/2021 3:47 PM EDT Spoke with Karlee and she is going to take care of this. * Telephone Encounter - Dhara Naylor RN - 10/14/2021 3:07 PM EDT Karlee with [facility] states patient has rescheduled her MRI outside of authorized insurance timeframe. Karlee reports MOY Sousa would need contacted at [phone] for insurance extensionfor MRI. For any other further questions, may call Karlee back at [phone]. Thank you. documented in this [facility]08-31-2022 Miscellaneous Notes* Telephone Encounter - Elaine Parker LPN - 10/14/2021 1:50 PM EDT Faxed as requested from [facility]. * Telephone Encounter - Ema Joseph RN - 10/09/2021 3:21 PM EDT Pts daughter called in and reports Pt is having an MRI on 10/16/21 at [facility]. She states they need to have Pts BUN and Creat faxed up to them once Pt has labs drawn next week. Please fax lab results to [phone]. documented in this [facility] Miscellaneous Notes* Telephone Encounter - MARK Shaw - 10/02/2021 1:32 PM EDT CD/ reports READY FOR TELEVISION TECHNICIAN AT [facility] * Telephone Encounter - Tiesha Perez Pss - 10/02/2021 11:22 AM EDT Patient calling requesting CD and report of x-ray done on 10/22/20. Patient will pickup after 11:15 am on Tuesday, 10/05. Thank you! documented in this [facility]08-11-2022 History of Present illness Narrative* Jovany Rizzo PA-C - 09/24/2021 8:00 AM EDT [facility] video visit was used for evaluation of this patient. Location of patient: [place] Patient was offered a virtual/telemedicine appointment in lieu of an office visit due to recommendations to reduce patient exposure to COVID-19. Patient is aware of limitations of performing the visit without a face to face visit in the office setting and agrees. 7:55 AM 55 year old female with c/o routine follow up Primary hypertension (primary encounter diagnosis) Current meds: Furosemide 40 mg daily Lisinopril hydrochlorothiazide 20-12.5 mg 2 tablets once daily Atenolol 50 mg daily Patient is compliant with meds Yes Monitors bp at home: Yes. If yes, readings: 129/81, 128/74, highest 149/66 Denies side effects: Yes. Chest pain: some chest pain surfacy . Dyspnea: chronic. Edema: nothing new or worse with chronic. Palpitations: intermittent palpitations for years, usually in evenings. Syncope: No. Headache: No. Dizziness: No. Last 3 Encounter BP Readings: Date: BP: 06/16/2021 120/76 11/07/2020 130/68 10/16/2019 120/62 Last 2 Encounter Wt Readings: Date: Wt: 06/16/2021 147.4 kg (325 lb) 11/07/2020 149.4 kg (329 lb 6.4 oz) Mixed hyperlipidemia Current medication Atorvastatin 40 mg daily Taking medication consistently Yes Observing low cholesterol high fiber diet Yes Muscle aches chronic Stomach complaints/ diarrhea alternates with constipation, diarrhea Last 2 Lipids: Component Latest Ref Rng & Units 03/24/2020 06/16/2021 Cholesterol, Total <200 mg/dL 121 136 Triglyceride <150 mg/dL 343 (H) 257 (H) HDL Cholesterol >39 mg/dL 32 (L) 36 (L) LDL Cholesterol <100 mg/dL 20 49 Non HDL Cholesterol <130 mg/dL 89 100 Fasting Time hrs 12 12 VLDL Cholesterol <30 mg/dL 69 (H) 51 (H) TC:HDL Ratio <5.10 3.78 3.78 LDL:HDL Ratio <2.54 0.63 1.36 Pvd (peripheral vascular disease) ([facility]) Current medications: ASA 81 mg daily 01/15/2022 PVR RABI 1.00, LABI 0.95 Chronic hypoxemic respiratory failure (hcc) Chronic obstructive pulmonary disease, unspecified copd type (hcc) Obstructive sleep apnea syndrome Lung nodules Current medications: O2 2 L/min nasal cannula continuous CPAP 11 cm with 20-minute ramp and humidification Leaf Stamper: Dr. Bernard. Interval history: 07/16/2021 last visit with pulmonology: Stable 01/12/2021 CT chest WO: Multiple pulmonary nodules again identified, stable upper lung zones, rightbase nodules resolved with 3 nodules persistent but less discrete, groundglass appearance, new subcentimeter groundglass nodule right lower lobe. Current medications: none Worsening shortness of breath: No. Cough: just got over URI, cough is better. Home Covid test neg. Wheezing: Yes. Mild, off and on Smoking: hasn't quit yet but trying nicotine patches. Compliant with medications: Yes. Using rescue inhaler: none available- hasn't needed. CPAP: compliant Type 2 diabetes mellitus without complication, with long-term current use of insulin (hcc) Current medications: Lispro 200 unit: 66 units breakfast, 40 units unch, 94 units dinner Insulin degludec 88 units subcu twice daily Dulaglutide 4.5 mg subcu weekly Metformin XR 500 mg 2 tablet twice daily with meals Taking medication as directed consistently? Yes Medical Issues / Complications: hypertension and hyperlipidemia Checking blood sugars at home? Off and on. Low 200s Watching diet? Yes- doing fairly well . Does eat spaghetti. Dping keto most of the time with daughter. Physical Activity: Sedentary Hypoglycemic spells? No Any visual disturbance? No Chest pain? No New numbness, tingling or loss of sensation? Chronic in fingers, nothing new. Any recent foot problems, sores or rashes? No Any recent or sudden weight loss? Hasn't checked for awhile Change in urination? No. If yes: Any recent illness? Yes, URI Last eye exam: due. Last foot exam: up to date. HBA1C: Hemoglobin A1C (%) Date Value 10/22/2020 9.8 03/24/2020 10.3 ) CMP: Glucose 120 06/16/2021 BUN 18 06/16/2021 Creatinine (POCT) 0.51 06/16/2021 Sodium 141 06/16/2021 Potassium 4.0 06/16/2021 Chloride 97 06/16/2021 CO2 36 06/16/2021 Protein, Total 7.9 06/16/2021 Albumin 3.8 06/16/2021 Calcium 9.8 06/16/2021 Alkaline Phosphatase 106 06/16/2021 Bilirubin, Total 0.3 06/16/2021 AST 23 06/16/2021 ALT 22 06/16/2021 Last 2 Encounter Wt Readings: Date: Wt: 06/16/2021 147.4 kg (325 lb) 11/07/2020 149.4 kg (329 lb 6.4 oz) Depression, unspecified depression type Anxiety Panic disorder Current medications: Buspirone 5 mg 3 times daily Venlafaxine ER 225 mg daily Feels foggy today-trouble getting information to come up but does eventually. Smiling. Feels overall things are good. Not sure if medication is realluy making a difference. Very anxious when she tries to stop smoking. Polycythemia Component Latest Ref Rng & Units 03/24/2020 10/22/2020 WBC 3.70 - 11.00 k/uL 14.36 (H) 11.88 (H) RBC 3.90 - 5.20 m/uL 5.48 (H) 5.44 (H) Hemoglobin 11.5 - 15.5 g/dL 16.0 (H) 15.4 Hematocrit 36.0 - 46.0 % 48.3 (H) 47.1 (H) MCV 80.0 - 100.0 fL 88.1 86.6 MCH 26.0 - 34.0 pG 29.2 28.3 MCHC 30.5 - 36.0 g/dL 33.1 32.7 RDW-CV 11.5 - 15.0 % 13.7 13.4 Platelet Count 150 - 400 k/uL 236 244 MPV 9.0 - 12.7 fL 9.8 10.4 Neut% % 65.7 72.7 Abs Neut (ANC) 1.45 - 7.50 k/uL 9.43 (H) 8.64 (H) Lymph% % 26.2 19.8 Abs Lymph 1.00 - 4.00 k/uL 3.76 2.35 [place]% % 5.1 5.0 Abs [place] <0.87 k/uL 0.73 0.59 Eosin% % 2.6 2.1 Abs Eosin <0.46 k/uL 0.38 0.25 Baso% % 0.4 0.4 Abs Baso <0.11 k/uL 0.06 0.05 Nucleated Reds 0 /100 WBC 0.0 0.0 Absolute nRBC <0.01 k/uL <0.01 <0.01 Diff Type Auto Diff Auto Diff Irritable bowel syndrome, unspecified type: Affected by diabetic meds: diarrhea, constipation. Has on occasiona been incontinent at night with feces. HISTORIES FAMILY HISTORY Problem Relation Age of Onset COPD Mother Ischemic Heart Disease Father Ischemic Heart Disease Sister Colon Cancer Maternal Grandfather Diabetes Maternal Aunt Diabetes Paternal Aunt Breast Cancer Other Maternal cousin PAST MEDICAL HISTORY Diagnosis Date Chronic hypoxemic respiratory failure ([facility]) 07/16/2021 Due to morbid obesity. COPD (chronic obstructive pulmonary disease) ([facility]) with chronic hypoxemic respiratory failure; on oxygen 2 liters continuously Degenerative disc disease Depression Diabetes mellitus type II Dyslipidemia Hypertension IBS (irritable bowel syndrome) Microalbuminuria on adwoa inhibitor Obesity Palpitations Panic disorder Renal calculus Renal cell carcinoma of right kidney ([facility]) 2009 S/P partial right nephrectomy Sleep apnea uses CPAP Tobacco abuse Urinary calculus, unspecified Renal stones PAST SURGICAL HISTORY Procedure Laterality Date APPENDECTOMY 09/02/2019 DILATION & CURETTAGE DX&/THER NONOBSTETRIC Dilation & curettage LAPAROSCOPY SURG CHOLECYSTECTOMY 2003 Cholecystectomy, lap LITHOTRIPSY XTRCORP SHOCK WAVE Lithotripsy x 2 Stents x 3 OTHER right lower portion of kidney removed in 2009 PAST SURGICAL HISTORY OF Repair of right arm fx as child Social History Tobacco Use Smoking status: Every Day Packs/day: 2.00 Years: 38.00 Pack years: 76.00 Types: Cigarettes Start date: 12/06/1979 Smokeless tobacco: Never Tobacco comments: A pack or less per day, depending on the day, 07/16/2021, TO Vaping Use Vaping Use: Never used Substance Use Topics Alcohol use: No Drug use: No ACTIVE PROBLEM LIST Calculus of Kidney Renal Colic Hydronephrosis Calculus of Ureter Foreign Body in Bladder and Urethra Asa Class Iii Flank Hernia Morbid Obesity With Bmi of 50.0-59.9, Adult (Hcc) Depression Ddd (Degenerative Disc Disease), Lumbar Ibs (Irritable Bowel Syndrome) Panic Disorder Sleep Apnea Hypertension Diabetes Mellitus (Hcc) Lumbago Malignant Neoplasm of Kidney Excluding Renal Pelvis (Hcc) Mixed Hyperlipidemia Pvd (Peripheral Vascular Disease) (Hcc) Chronic Obstructive Pulmonary Disease (Hcc) Chronic Hypoxemic Respiratory Failure (Hcc) Current Outpatient Medications Medication Sig Dispense Refill gabapentin (NEURONTIN) 300 mg capsule Take 1 capsule by mouth three times daily for 90 days. Appointment needed for further refills. 90 capsule 2 aspirin, enteric coated (ASPIRIN, ENTERIC COATED) 81 mg EC tablet Take 1 tablet by mouth once daily. 90 tablet 3 insulin lispro (HUMALOG) 200 unit/mL (3 mL) injection Inject subcutaneously 66 units with breakfast, 40 units with lunch and 94 units with dinner 15 Pen 0 Insulin [place], Disposable, (ULTICARE PEN NEEDLE) 29 gauge x 1/2 USE FIVE TIMES A DAY 200 Each 5 venlafaxine ER (EFFEXOR XR) 150 mg 24 hr capsule Take 1 capsule by mouth once daily. 84 capsule 3 cephALEXin (KEFLEX) 500 mg capsule Take 1 capsule by mouth twice daily. 20 capsule 0 dulaglutide (TRULICITY) 4.5 mg/0.5 mL pen injector Inject 4.5 mg subcutaneously one time a week. 6 mL 4 flash glucose sensor (LockrSTYLE TERRELL 14 DAY SENSOR) kit Apply new sensor every fourteen (14) days to upper arm. 6 Each 4 insulin degludec (TRESIBA FLEXTOUCH U-200) 200 unit/mL (3 mL) injection Inject 88 Units subcutaneously twice daily. 81 mL 1 lisinopril-hydroCHLOROthiazide (PRINZIDE,ZESTORETIC) 20-12.5 mg per tablet Take 2 tablets by mouth once daily. 60 tablet 5 atenolol (TENORMIN) 50 mg tablet Take 1 tablet by mouth once daily. 30 tablet 5 atorvastatin (LIPITOR) 40 mg tablet Take 1 tablet by mouth daily at bedtime. 30 tablet 5 venlafaxine ER (EFFEXOR XR) 75 mg 24 hr capsule TAKE 1 CAPSULE BY MOUTH DAILY IN ADDITION TO 150 MGA DAY. 30 capsule 5 metFORMIN ER (GLUCOPHAGE XR) 500 mg 24 hr tablet Take 2 tablets by mouth twice daily with meals. 120 tablet 11 fluticasone (FLONASE) 50 mcg/actuation nasal spray Use 2 Sprays in each nostril once daily. Rinse mouth after use. 1 Each 5 busPIRone (BUSPAR) 5 mg tablet Take 1 tablet by mouth three times daily. 90 tablet 5 furosemide (LASIX) 40 mg tablet Take 1 tablet by mouth once daily. 28 tablet 5 potassium chloride (K-TAB) 10 mEq tablet Take 2 tablets by mouth daily with breakfast. 60 tablet 5 blood sugar diagnostic (FREESTYLE PRECISION WENDY STRIPS) test strip Use as instructed to check bloodsugar when indicated by reader. Checking once daily. 25 strips per month. 25 Strip 5 Lancets lancets Test blood sugar(s) 4 times daily. Dx: Type 2 DM - Uncontrolled E11.65 Insulin: [id number] Each 11 CPAP 11 cm via nasal mask with 20 min ramp and humidification. 1 Device 0 OXYGEN, HOME THERAPY, 2 L/min by Nasal Cannula route continuous. blood sugar diagnostic (BLOOD GLUCOSE TEST) test strip Test blood sugar(s) 4 times daily. Dx: Type 2 DM - Uncontrolled E11.65 Insulin: Yes 150 Strip 11 ammonium lactate (LAC-HYDRIN) 12 % cream Apply 1 application to affected area as needed. 56 g 1 COMPOUNDED PRESCRIPTION C-PAP MASK HOSES, FILTERS 1 Each 0 glucose 4 gram chewable tablet Take 4 tablets by mouth as needed. For sugar less than 70 10 tablet 1 COMPOUNDED PRESCRIPTION COMPRESSION STOCKINGS 20-30 mm Knee high. DX: venous insufficiency 1 Each 0 COMPOUNDED PRESCRIPTION cpap supplies: sleep apnea 1 Each 0 COMPOUNDED PRESCRIPTION CPAP mask 1 Each 0 No current facility-administered medications for this visit. HEPATITIS B(1 of 3 - 3-dose series) Never done HEPATITIS C SCREENING Never done HIV SCREENING Never done PAP TESTING Never done ALPHA-1 ANTITRYPSIN DEFICIENCY SCREENING Never done HPV TESTING Never done DILATED RETINAL EXAM due on 11/06/2015 SHINGRIX VACCINE(1 of 2) Never done PNEUMOCOCCAL(2 - PCV) due on 02/03/2017 COLORECTAL CANCER SCREENING due on 03/18/2018 MAMMOGRAM due on 03/31/2018 HBA1C due on 01/21/2021 URINE ALBUMIN:CREATININE RATIO due on 03/24/2021 EXAM: LMP 06/12/2015 Pleasant morbidly obese woman with nasal O2 attached, speaking in full sentences. Goal directed. Euthymic. in no acute distress. Alert and oriented all spheres. Normal affect and cognition. Speech normal. No deficits to learning or comprehension. Skin warm, dry, pink to lips and nailbeds. Normal turgor. Respirations regular and unlabored. Speaking in full sentences. ASSESSMENT/PLAN: 1. Primary hypertension - ICD9: 401.9, ICD10: I10 (primary diagnosis) - good control - Continue current medication(s) - Encouraged dietary sodium restriction/DASH diet - Recommended regular aerobic exercise. - Recommend home blood pressure monitoring, to bring results in on next visit - Discussed need and benefit for weight loss. - Goal of BP <130/80 - Patient counselled on smoking cessation. - CBC + DIFF - COMP METABOLIC PANEL 2. Mixed hyperlipidemia - ICD9: 272.2, ICD10: E78.2 - good control - Continue current medication. - Encouraged following a low fat, low cholesterol diet. - Discussed the benefits of regular aerobic exercise and weight loss. - Encouraged following a low carbohydrate, healthy oil intake diet. - COMP METABOLIC PANEL - LIPID PANEL BASIC 3. PVD (peripheral vascular disease) ([facility]) - ICD9: 443.9, ICD10: I73.9 No current sx- PVR WNL. 4. Chronic hypoxemic respiratory failure (HCC) - ICD9: 518.83, 799.02, ICD10: J96.11 Wears O2 continuously. Recent URI affecting with cough and mild wheezing. Doesn't feel she needs inhaler, improving. Asked to report to me if she is ill due to severity of her respiratory hx 5. Chronic obstructive pulmonary disease, unspecified COPD type ([facility]) - ICD9: 496, ICD10: J44.9 As above 6. Obstructive sleep apnea syndrome - ICD9: 327.23, ICD10: G47.33 Compliant with CPAP 7. Depression, unspecified depression type - ICD9: 311, ICD10: F32.A Stable on medicaiton 8. Lung nodules - ICD9: 793.19, ICD10: R91.[address] in 1 year. 9. Anxiety - ICD9: 300.00, ICD10: F41.9 Increased mildly but managing- mostly from health issues, and trying to stop smoking. 10. Panic disorder - ICD9: 300.01, ICD10: F41.0 No recent episdoes 11. Type 2 diabetes mellitus without complication, with long-term current use of insulin ([facility]) - ICD9: 250.00, V58.67, ICD10: E11.9, Z79.4 uncontrolled - Continue current medications - CBC + DIFF - HGB A1C - COMP METABOLIC PANEL - LIPID PANEL BASIC - FREESTYLE TERRELL 2 READER - FREESTYLE TERRELL 2 SENSOR KIT - CONSULT TO OPHTHALMOLOGY - URINE ALB/CRE RATIO 12. Polycythemia - ICD9: 238.4, ICD10: D75.1 Stable- needs recheck 13. Irritable bowel syndrome, unspecified type - ICD9: 564.1, ICD10: K58.9 Persistent- feels r/t to daibetic meds 14. Dry skin - ICD9: 701.1, ICD10: L85.3 - AMMONIUM LACTATE 12 % TOPICAL CREAM 15. Low libido - ICD9: 799.81, ICD10: R68.82 - CONSULT TO GYNECOLOGY 16. Screening for cervical cancer - ICD9: V76.2, ICD10: Z12.4 - Encouraged monthly BSE - CONSULT TO GYNECOLOGY 8:34 AM 34 minute call Jovany Rizzo PA-C documented in this encounterAdena [facility]08-04-2022 Miscellaneous Notes* Telephone Encounter - Yesenia lBanco LPN - 09/17/2021 1:33 PM EDT Patient has been identified by name and date of : Yes Pharmacy phones for refill(s): Pending Prescriptions Disp Refills GABAPENTIN 300 MG CAPSULE 90 capsule 2 Sig: Take 1 capsule by mouth three times daily for 90 days. Appointment needed for further refills. BRIANNA: No ASPIRIN 81 MG TABLET,DELAYED RELEASE 90 tablet 3 Sig: Take 1 tablet by mouth once daily. BRIANNA: No Date of last office visit in primary care: 06/16/21 next apt 09/24/21 Last 2 Encounter Wt Readings: Date: Wt: 06/16/2021 147.4 kg (325 lb) 11/07/2020 149.4 kg (329 lb 6.4 oz) Previous labs/tests for medication: Not applicable Please advise. Thank you. Yesenia Blanco LPN documented in this encounterAdena [facility]07-25-2022 Miscellaneous Notes* Telephone Encounter - MARK Shaw - 09/07/2021 1:30 PM EDT Mailed * Telephone Encounter - Bhargavi Groves - 09/02/2021 4:52 PM EDT Pt calling to request disc of her CT done last October (10/22) be mailed to her doctors office as she can not come in to get it. Please mail to: ATTN: PAT [phone] [place] [address] documented in this encounterAdena [facility]07-25-2022 Miscellaneous Notes* Telephone Encounter - Rich Irby LPN - 09/07/2021 11:10 AM EDT EDITA 07/10/21 NOV 09/24/21 * Telephone Encounter - Gayle Benz [place] - 09/07/2021 10:04 AM EDT Patient has been identified by name and date of : Yes Pending Prescriptions Disp Refills INSULIN LISPRO (U-200) 200 UNIT/ML (3 ML) SUBCUTANEOUS PEN 15 Pen 0 Sig: Inject subcutaneously 66 units with breakfast, 40 units with lunch and 94 units with dinner BRIANNA: No PEN NEEDLE, DIABETIC 29 GAUGE X 1/2 200 Each 5 Sig: USE FIVE TIMES A DAY BRIANNA: No RX INSTRUCTIONS: Patient aware RX will be sent to pharmacy. No need to notify patient. NOTE: PATIENT IS OUT OF INSULIN TODAY AT NOON. [facility] documented in this encounterAdena [facility]07-15-2022 Miscellaneous Notes* Telephone Encounter - Patti Panda Ma - 08/28/2021 8:15 AM EDT Patient was notified that Tresiba is approved until 07/2022 Faxed approval information to lucy Panda Ma * Telephone Encounter - Yesenia Wheelerhl [employer] - 08/28/2021 8:04 AM EDT Pt called and states she [facility] and they are both telling her she needs to have a PA for Tresiba. Our records show on 08-11-21 it was approved. Please review and advise pt. Pt states she is out of medication. This message is being routed to pcp and prior authorization pool. Please advise pt on what to do because she is out of medication. Yesenia Blanco LPN documented in this encounterAdena [facility]06-28-2022 Miscellaneous Notes* Telephone Encounter - Patti Panda Ma - 08/11/2021 8:56 AM EDT Tresiba Approved and patient notified via voicemail Patti Panda Ma * Telephone Encounter - Marlen Nixon LPN - 08/06/2021 11:36 AM EDT Electronic PA requested for tresiba. documented in this encounterAdena [facility] Center06-22-2022 Miscellaneous Notes* Telephone Encounter - Pilar Pendleton Pss - 08/05/2021 3:52 PM EDT Patient is currently out of her humalog, needs for tonight. Please call in to the [facility] pharmacy on file and notify patient when sent. * Telephone Encounter - Pilar Pendleton Pss - 08/05/2021 3:50 PM EDT Pharmacy verified in Epic Patient has been identified by name and date of : Yes Patient aware RX will be sent to pharmacy. No need to notify patient. Patient phones for refill(s): Pending Prescriptions Disp Refills INSULIN LISPRO (U-200) 200 UNIT/ML (3 ML) SUBCUTANEOUS PEN 15 Pen 0 Sig: Inject subcutaneously 66 units with breakfast, 40 units with lunch and 94 units with dinner BRIANNA: No Date of last office visit : 06/16/2021 Date of next office visit : 09/24/2021 Last 2 Encounter Wt Readings: Date: Wt: 06/16/2021 147.4 kg (325 lb) 11/07/2020 149.4 kg (329 lb 6.4 oz) Please advise. Pilar Pendleton Pss documented in this encounterAdena [facility]06-08-2022 Miscellaneous Notes* Telephone Encounter - Rich Irby LPN - 07/22/2021 5:06 PM EDT TC to pt, left message to return call to office. Rich Irby LPN * Telephone Encounter - Lu Greene APRN.CNP - 07/22/2021 4:26 PM EDT Script sent. Can let patient know and close encounter. Lu Greene APRN.RANDALL * Telephone Encounter - Marcy Pandya RN - 07/22/2021 2:02 PM EDT Patient calling with request for Diflucan for yeast infection. Just completed course of antibiotic for sinus infection and has symptoms of vaginal itching and burning. Has been prescribed for her in the past. If agree, pended from previous fill. Patient has been identified by name and date of : Yes Patient phones for refill(s): Pending Prescriptions Disp Refills FLUCONAZOLE 150 MG TABLET 1 tablet 0 Sig: Take 1 tablet by mouth once daily for 1 day. BRIANNA: No Date of last office visit with pcp: 07/10/21 Date of last office visit in primary care: Last 2 Encounter Wt Readings: Date: Wt: 06/16/2021 147.4 kg (325 lb) 11/07/2020 149.4 kg (329 lb 6.4 oz) Previous labs/tests for medication: Not applicable Please advise. Thank you. Mracy Pandya, RN documented in this encounterAdena [facility]05-31-2022 Miscellaneous Notes* Telephone Encounter - Mat Davidson RPh - 07/14/2021 3:54 PM EDT Attempted to call patient for today's scheduled pharmacy phone follow up. Not able to reach after several attempts. Attempted to reach patient at listed numbers [phone] (LVM), and [phone]. On third attempt, patient's spouse answers phone to state patient is not available at this time. Instructed to return call to reschedule visit. He verbalized understanding. Mat Davidson, PharmD Primary Care Clinical Pharmacist [facility] documented in this encounterAdena [facility]05-27-2022 History of Present illness Narrative* Jovany Rizzo PA-C - 07/10/2021 1:48 PM EDT MyChart video visit was used for evaluation of this patient. Location of patient: [place] Patient was offered a virtual/telemedicine appointment in lieu of an office visit due to recommendations to reduce patient exposure to COVID-19. Patient is aware of limitations of performing the visit without a face to face visit in the office setting and agrees. 1:48 PM 55 year old female with c/o sinus infection. Was having runny nose and ear plugging since last visit . No fever, chills. Coughing , productive thick clear. No hemoptysis. Blowing yellow, thick from nose. No wheezing or SOB out of the ordinary. About 2 days on flonase and ear unplugged from last visit. Stopped spray at that time- asking if she should continue. HISTORIES FAMILY HISTORY Problem Relation Age of Onset Diabetes Maternal Aunt Diabetes Paternal Aunt Ischemic Heart Disease Father Ischemic Heart Disease Sister Colon Cancer Maternal Grandfather Breast Cancer Other Maternal cousin PAST MEDICAL HISTORY Diagnosis Date COPD (chronic obstructive pulmonary disease) (HCC) with chronic hypoxemic respiratory failure; on oxygen 2 liters continuously Degenerative disc disease Depression Diabetes mellitus type II Dyslipidemia Hypertension IBS (irritable bowel syndrome) Microalbuminuria on adwoa inhibitor Obesity Palpitations Panic disorder Renal calculus Renal cell carcinoma of right kidney (HCC) 2009 S/P partial right nephrectomy Sleep apnea uses CPAP Tobacco abuse Urinary calculus, unspecified Renal stones PAST SURGICAL HISTORY Procedure Laterality Date APPENDECTOMY 09/02/2019 DILATION & CURETTAGE DX&/THER NONOBSTETRIC Dilation & curettage LAPAROSCOPY SURG CHOLECYSTECTOMY 2003 Cholecystectomy, lap LITHOTRIPSY XTRCORP SHOCK WAVE Lithotripsy x 2 Stents x 3 OTHER right lower portion of kidney removed in 2009 PAST SURGICAL HISTORY OF Repair of right arm fx as child Social History Tobacco Use Smoking status: Current Every Day Smoker Packs/day: 2.00 Years: 38.00 Pack years: 76.00 Types: Cigarettes Start date: 12/06/1979 Smokeless tobacco: Never Used Tobacco comment: 11/15/2019 10-15 cigs/day. TO Vaping Use Vaping Use: Never used Substance Use Topics Alcohol use: No Drug use: No ACTIVE PROBLEM LIST Calculus of Kidney Renal Colic Hydronephrosis Calculus of Ureter Foreign Body in Bladder and Urethra Asa Class Iii Flank Hernia Morbid Obesity With Bmi of 50.0-59.9, Adult (Hcc) Depression Ddd (Degenerative Disc Disease), Lumbar Ibs (Irritable Bowel Syndrome) Panic Disorder Sleep Apnea Hypertension Diabetes Mellitus (Hcc) Lumbago Malignant Neoplasm of Kidney Excluding Renal Pelvis (Hcc) Mixed Hyperlipidemia Pvd (Peripheral Vascular Disease) (Hcc) Chronic Obstructive Pulmonary Disease (Hcc) Current Outpatient Medications Medication Sig Dispense Refill dulaglutide (TRULICITY) 4.5 mg/0.5 mL pen injector Inject 4.5 mg subcutaneously one time a week. 6 mL 4 LORazepam (ATIVAN) 1 mg tablet One hour before procedure. 1 tablet 0 flash glucose sensor (FREESTYLE TERRELL 14 DAY SENSOR) kit Apply new sensor every fourteen (14) days to upper arm. 6 Each 4 insulin lispro (HUMALOG) 200 unit/mL (3 mL) injection Inject subcutaneously 66 units with breakfast, 40 units with lunch and 94 units with dinner 15 Pen 0 gabapentin (NEURONTIN) 300 mg capsule Take 1 capsule by mouth three times daily for 90 days. Appointment needed for further refills. 90 capsule 2 insulin degludec (TRESIBA FLEXTOUCH U-200) 200 unit/mL (3 mL) injection Inject 88 Units subcutaneously twice daily. 81 mL 1 lisinopril-hydroCHLOROthiazide (PRINZIDE,ZESTORETIC) 20-12.5 mg per tablet Take 2 tablets by mouth once daily. 60 tablet 5 atenolol (TENORMIN) 50 mg tablet Take 1 tablet by mouth once daily. 30 tablet 5 atorvastatin (LIPITOR) 40 mg tablet Take 1 tablet by mouth daily at bedtime. 30 tablet 5 venlafaxine ER (EFFEXOR XR) 75 mg 24 hr capsule TAKE 1 CAPSULE BY MOUTH DAILY IN ADDITION TO 150 MGA DAY. 30 capsule 5 metFORMIN ER (GLUCOPHAGE XR) 500 mg 24 hr tablet Take 2 tablets by mouth twice daily with meals. 120 tablet 11 fluticasone (FLONASE) 50 mcg/actuation nasal spray Use 2 Sprays in each nostril once daily. Rinse mouth after use. 1 Each 5 busPIRone (BUSPAR) 5 mg tablet Take 1 tablet by mouth three times daily. 90 tablet 5 furosemide (LASIX) 40 mg tablet Take 1 tablet by mouth once daily. 28 tablet 5 potassium chloride (K-TAB) 10 mEq tablet Take 2 tablets by mouth daily with breakfast. 60 tablet 5 blood sugar diagnostic (FREESTYLE PRECISION WENDY STRIPS) test strip Use as instructed to check bloodsugar when indicated by reader. Checking once daily. 25 strips per month. 25 Strip 5 Lancets lancets Test blood sugar(s) 4 times daily. Dx: Type 2 DM - Uncontrolled E11.65 Insulin: [id number] Each 11 Insulin [place], Disposable, (ULTICARE PEN NEEDLE) 29 gauge x 1/2 USE FIVE TIMES A DAY 200 Each 5 aspirin, enteric coated (ASPIRIN, ENTERIC COATED) 81 mg EC tablet Take 1 tablet by mouth once daily. 90 tablet 3 venlafaxine ER (EFFEXOR XR) 150 mg 24 hr capsule Take 1 capsule by mouth once daily. 84 capsule 3 albuterol HFA (PROVENTIL HFA, VENTOLIN HFA) 90 mcg/actuation inhaler Inhale 2 Puffs as instructed every 4 hours as needed. 6.7 g 1 CPAP 11 cm via nasal mask with 20 min ramp and humidification. 1 Device 0 OXYGEN, HOME THERAPY, 2 L/min by Nasal Cannula route continuous. blood sugar diagnostic (BLOOD GLUCOSE TEST) test strip Test blood sugar(s) 4 times daily. Dx: Type 2 DM - Uncontrolled E11.65 Insulin: Yes 150 Strip 11 ammonium lactate (LAC-HYDRIN) 12 % cream Apply 1 application to affected area as needed. 56 g 1 COMPOUNDED PRESCRIPTION C-PAP MASK HOSES, FILTERS 1 Each 0 glucose 4 gram chewable tablet Take 4 tablets by mouth as needed. For sugar less than 70 10 tablet 1 COMPOUNDED PRESCRIPTION COMPRESSION STOCKINGS 20-30 mm Knee high. DX: venous insufficiency 1 Each 0 COMPOUNDED PRESCRIPTION cpap supplies: sleep apnea 1 Each 0 COMPOUNDED PRESCRIPTION CPAP mask 1 Each 0 No current facility-administered medications for this visit. HEPATITIS C SCREENING Never done HIV SCREENING Never done HEPATITIS B(1 of 3 - Risk 3-dose series) Never done PAP TESTING Never done HPV TESTING Never done DILATED RETINAL EXAM due on 11/06/2015 SHINGRIX VACCINE(1 of 2) Never done PNEUMOCOCCAL(2 - PCV) due on 02/03/2017 COLORECTAL CANCER SCREENING due on 03/18/2018 MAMMOGRAM due on 03/31/2018 HBA1C due on 01/21/2021 URINE ALBUMIN:CREATININE RATIO due on 03/24/2021 EXAM: LMP 06/12/2015 Pleasant obese adult woman in no acute distress. Alert and oriented all spheres. Normal affect and cognition. Speech normal. No deficits to learning or comprehension. Speaking in full sentences easily. No active drainage. No tenderness on self tapping maxillary/ frontal sinuses. Oral membranes moist, lips pink. No active cough, wheezing, or labored breathing noted. ASSESSMENT/PLAN: 1. Acute maxillary sinusitis, recurrence not specified - ICD9: 461.0, ICD10: J01.00 - Will begin treatment ATB below. Nasal saline, cool mist, rest , fluids Flonase NS may help: can resume. - CEPHALEXIN 500 MG CAPSULE Asking to transfer care to me: will have September appt switched. 2:06 PM Jovany Rizzo PA-C documented in this encounterAdena [facility]05-10-2022 Miscellaneous Notes* Telephone Encounter - Becky Jimenez Ma - 06/23/2021 3:29 PM EDT Patient notified and willing to try MRI * Telephone Encounter - Samson Hogan MD - 06/23/2021 3:11 PM EDT The MRI would be preferable. I can send over med to help her relax if someone drives her. * Telephone Encounter - Dhara Naylor RN - 06/23/2021 3:05 PM EDT Patient calling and reports she has an MRI of her liver scheduled for 06/25/21 and states she doesn't think she is going to be able to do it. She states she is claustrophobic. She is asking Dr. Hogan if another CT scan with contrast can be ordered to see if there are any changes from the last CT? Shestates if an MRI has to be completed, possibly a medication can be ordered to help her relax. Please advise patient. PH: [phone]. Thank you. documented in this encounterAdena [facility] Center05-10-2022 History of Present illness Narrative* Mat Davidson, [facility] - 06/23/2021 2:30 PM EDT Primary Care Pharmacy Visit REASON FOR CONSULT: DM GOALS: A1c < 7% CONSULTING PROVIDER: ARMIN Rizzo And Dr. Hogan Date of Consult: 11/29/18 (Gigi) and 03/12/17 (Dr. Hogan) Rosa Maria Menjivar is a 55 year old female presenting for follow up visit by telephone. Patient consents to pharmacy collaborative practice agreement. Last seen by Gigi Rizzo PA-C on 06/16/21. At last Pa-C appt, no medication changes made. At last PharmD visit on 06/02, patient was instructed to resume blood sugar monitoring, complete lab work and referred to nutrition therapy. INTERIM HISTORY: Patient has not met with nutrition therapy. Has started following more restrictive carbohydrate diet. Her daughter does the Keto diet and she is having fewer carbs at meals Has cut out ice cream and sweet snacks Readings remain elevated (See log below) Current DM Medications: Insulin lispro Inject subcutaneously 66 units with breakfast, 40 units with lunch and 94 units withdinner Insulin degludec Inject 88 Units subcutaneously twice daily Dulaglutide 3 mg once weekly Metformin 500 mg - 2 tablets twice daily Preventative Medications: On ADWOA/ARB: Yes On Statin: Yes GLYCEMIC CONTROL: SMBG s: Date Fasting AM 2 hr PP Before Lunch 2 hr PP Before Dinner 2 hr PP Bedtime 06/23 217 306 06/22 317 - 303 310 06/21 279 - - 297 06/20 263 303 319 - 06/21 342 230 - - 06/20 294 06/19 306 06/18 216 06/17 342 294 236 284 06/16 308 319 281 Hypoglycemia: denies ROS: Patient denies CP, SOB, SCHWAB, blurred vision, dizziness or lightheadedness Patient denies nausea, vomiting, diarrhea, abdominal pain Patient denies symptoms of hypoglycemia (sweating, anxiety, palpitations, hunger, and tremor) Patient denies symptoms of hyperglycemia (polyuria, polydipsia, polyphagia) Patient denies potential medication adverse effects DIET/EXERCISE/SOCIAL Hx: Typically having 2 -3 meals per day Breakfast: 2 egg sandwiches Lunch: leftovers from supper Dinner: lasagne, pasta, bhutanese rice, hot dogs and hamburgers, pork steaks, mashed potatoes Snacks: chips, easter candy, cookies, cheese sticks, yogurt Beverages: diet coke, water Exercise: limited MEDICATIONS: Pill bottles are not present. Adherence: denies missed doses. ACTIVE PROBLEM LIST Calculus of Kidney Renal Colic Hydronephrosis Calculus of Ureter Foreign Body in Bladder and Urethra Asa Class Iii Flank Hernia Morbid Obesity With Bmi of 50.0-59.9, Adult (Hcc) Depression Ddd (Degenerative Disc Disease), Lumbar Ibs (Irritable Bowel Syndrome) Panic Disorder Sleep Apnea Hypertension Diabetes Mellitus (Hcc) Lumbago Malignant Neoplasm of Kidney Excluding Renal Pelvis (Hcc) Mixed Hyperlipidemia Pvd (Peripheral Vascular Disease) (Hcc) Chronic Obstructive Pulmonary Disease (Hcc) PAST MEDICAL HISTORY Diagnosis Date COPD (chronic obstructive pulmonary disease) ([facility]) with chronic hypoxemic respiratory failure; on oxygen 2 liters continuously Degenerative disc disease Depression Diabetes mellitus type II Dyslipidemia Hypertension IBS (irritable bowel syndrome) Microalbuminuria on adwoa inhibitor Obesity Palpitations Panic disorder Renal calculus Renal cell carcinoma of right kidney (HCC) 2009 S/P partial right nephrectomy Sleep apnea uses CPAP Tobacco abuse Urinary calculus, unspecified Renal stones ALLERGIES Allergen Reactions Morphine Itching Tetanus And Diphthe* Other: See Comments ? Reactive lymphadenopathy Toradol [Ketorolac * Heart racing and nightmares Current Outpatient Medications Medication Sig insulin lispro (HUMALOG) 200 unit/mL (3 mL) injection Inject subcutaneously 66 units with breakfast, 40 units with lunch and 94 units with dinner gabapentin (NEURONTIN) 300 mg capsule Take 1 capsule by mouth three times daily for 90 days. Appointment needed for further refills. insulin degludec (TRESIBA FLEXTOUCH U-200) 200 unit/mL (3 mL) injection Inject 88 Units subcutaneously twice daily. lisinopril-hydroCHLOROthiazide (PRINZIDE,ZESTORETIC) 20-12.5 mg per tablet Take 2 tablets by mouth once daily. atenolol (TENORMIN) 50 mg tablet Take 1 tablet by mouth once daily. atorvastatin (LIPITOR) 40 mg tablet Take 1 tablet by mouth daily at bedtime. venlafaxine ER (EFFEXOR XR) 75 mg 24 hr capsule TAKE 1 CAPSULE BY MOUTH DAILY IN ADDITION TO 150 MGA DAY. metFORMIN ER (GLUCOPHAGE XR) 500 mg 24 hr tablet Take 2 tablets by mouth twice daily with meals. fluticasone (FLONASE) 50 mcg/actuation nasal spray Use 2 Sprays in each nostril once daily. Rinse mouth after use. busPIRone (BUSPAR) 5 mg tablet Take 1 tablet by mouth three times daily. furosemide (LASIX) 40 mg tablet Take 1 tablet by mouth once daily. potassium chloride (K-TAB) 10 mEq tablet Take 2 tablets by mouth daily with breakfast. blood sugar diagnostic (FREESTYLE PRECISION WENDY STRIPS) test strip Use as instructed to check bloodsugar when indicated by reader. Checking once daily. 25 strips per month. Lancets lancets Test blood sugar(s) 4 times daily. Dx: Type 2 DM - Uncontrolled E11.65 Insulin: Yes dulaglutide (TRULICITY) 3 mg/0.5 mL pen injector Inject 3 mg subcutaneously one time a week. Insulin [place], Disposable, (ULTICARE PEN NEEDLE) 29 gauge x 1/2 USE FIVE TIMES A DAY aspirin, enteric coated (ASPIRIN, ENTERIC COATED) 81 mg EC tablet Take 1 tablet by mouth once daily. venlafaxine ER (EFFEXOR XR) 150 mg 24 hr capsule Take 1 capsule by mouth once daily. albuterol HFA (PROVENTIL HFA, VENTOLIN HFA) 90 mcg/actuation inhaler Inhale 2 Puffs as instructed every 4 hours as needed. CPAP 11 cm via nasal mask with 20 min ramp and humidification. OXYGEN, HOME THERAPY, 2 L/min by Nasal Cannula route continuous. blood sugar diagnostic (BLOOD GLUCOSE TEST) test strip Test blood sugar(s) 4 times daily. Dx: Type 2 DM - Uncontrolled E11.65 Insulin: Yes ammonium lactate (LAC-HYDRIN) 12 % cream Apply 1 application to affected area as needed. COMPOUNDED PRESCRIPTION C-PAP MASK HOSES, FILTERS glucose 4 gram chewable tablet Take 4 tablets by mouth as needed. For sugar less than 70 COMPOUNDED PRESCRIPTION COMPRESSION STOCKINGS 20-30 mm Knee high. DX: venous insufficiency COMPOUNDED PRESCRIPTION cpap supplies: sleep apnea COMPOUNDED PRESCRIPTION CPAP mask No current facility-administered medications for this visit. EXAM: Last 3 Encounter BP Readings: Date: BP: 06/16/2021 120/76 11/07/2020 130/68 10/16/2019 120/62 Wt: 147.4 kg (325 lb) BMI: 55.79 kg/(m^2) LABS: Lab Results Component Value Date HBA1C 9.8 10/22/2020 HBA1C 10.3 03/24/2020 HBA1C 8.9 12/27/2018 CMP: Glucose 120 06/16/2021 BUN 18 06/16/2021 Creatinine (POCT) 0.51 06/16/2021 Sodium 141 06/16/2021 Potassium 4.0 06/16/2021 Chloride 97 06/16/2021 CO2 36 06/16/2021 Protein, Total 7.9 06/16/2021 Albumin 3.8 06/16/2021 Calcium 9.8 06/16/2021 Alkaline Phosphatase 106 06/16/2021 Bilirubin, Total 0.3 06/16/2021 AST 23 06/16/2021 ALT 22 06/16/2021 Serum creatinine: 0.51 mg/dL (L) 06/16/21 1027 Estimated creatinine clearance: 182.8 mL/min (A) No results found for: B12 Lab Results Component Value Date CHOL 136 06/16/2021 CHOL 121 03/24/2020 LDL 49 06/16/2021 LDL 20 03/24/2020 HDL 36 06/16/2021 HDL 32 03/24/2020 TG 257 06/16/2021 TG 343 03/24/2020 The 10-year ASCVD risk score (Leticia MALIN Jr., et al., 2013) is: 10.1% Values used to calculate the score: Age: 55 years Sex: Female Is Non- : No Diabetic: Yes Tobacco smoker: Yes Systolic Blood Pressure: 120 mmHg Is BP treated: Yes HDL Cholesterol: 36 mg/dL Total Cholesterol: 136 mg/dL Albumin/Creat Ratio (mg/g) Date Value 03/24/2020 937 (H) PHARMACOTHERAPY ASSESSMENT/PLAN: 1. Type 2 diabetes mellitus without complication, with long-term current use of insulin ([facility]) - ICD9: 250.00, V58.67, ICD10: E11.9, Z79.4 A1c goal < 7%; uncontrolled (last A1c 9.8%); SMBG elevated on current regimen. Denies s/sx of hypoglycemia. Patient is making lifestyle changes. Today, will further optimize Trulicity dose for improved BG control. Pt would benefit from CGM use but has tried in the past with trouble to keep sensors on, will retry and apply tegaderm film to prevent it from falling. INCREASE dulaglutide (Trulicity) 4.5 mg weekly CONTINUE Insulin lispro Inject subcutaneously 66 units with breakfast, 40 units with lunch and 94 units with dinner, Insulin degludec Inject 88 Units subcutaneously twice daily, Metformin 500 mg - 2 tablets twice daily HbA1c: due now - instructed to go to lab - TRULICITY 4.5 MG/0.5 ML SUBCUTANEOUS PEN INJECTOR - FREESTYLE TERRELL 14 DAY SENSOR KIT - ALBUMIN/CREAT RATIO RND UR Follow up: Patient is scheduled to see PCP on 09/17/21. Patient to follow up with PharmD on 07/14/21. Patient verbalized understanding of instructions. Mat Davidson, ZaraD, BCACP Primary Care Clinical Pharmacist [facility] The majority of the pharmacy visit (> 50%) was spent counseling and/or coordinating care for thepatient. [Telephonic] time was 18 minutes. documented in this encounterAdena [facility]05-05-2022 Miscellaneous Notes* Telephone Encounter - Nika Watters MA - 06/18/2021 8:51 AM EDT Daughter notified. * Telephone Encounter - Samson Hogan MD - 06/18/2021 8:36 AM EDT Cholesterol was good. It looks like only part of the labs were done due to epic change. Needs at least a1c as well. documented in this encounterAdena [facility] Center04-27-2022 Miscellaneous Notes* Telephone Encounter - Samson Hogan MD - 06/10/2021 2:17 PM EDT Placed * Telephone Encounter - Marcy Pandya RN - 06/10/2021 12:23 PM EDT Patient calling with request for new order MRI abdomen (MRI Liver WO/WIVCON). She came to [facility] on 05/29 to have it done but became claustrophobic and it was cancelled. She says she can go to [place] where they have a bigger MRI machine. Marcy Pandya, RN documented in this encounterAdena [facility] Center04-21-2022 Miscellaneous Notes* Telephone Encounter - Yesenia Blanco LPN - 06/04/2021 4:57 PM EDT Spoke with and they will call back tomorrow am and schedule apt with Cardiology. Yesenia Blanco LPN * Telephone Encounter - Lu Greene APRN.CNP - 06/01/2021 12:35 PM EDT Referral placed. Please help schedule. Lu Greene APRN.CNP * Telephone Encounter - Rich Irby LPN - 06/01/2021 12:01 PM EDT Phoned pt for additional information. Pt states she was supposed to see Cardiology about a year agofor this. Upon further review of pt chart, she had cancelled/no showed several appt's with Cardiology, although I do not see an actual consult for Cardiology placed. Consult pending. Pt states this is a chronic issue and she currently takes atenolol for it. She states she has had an Echo done. She denies CP. No SOB aside from her normal. Denies leg swelling aside from her normal.Pt states when she takes the atenolol it helps with the heart beats. She does take atenolol regularly, but notes that she can still sometimes feel the heartbeats through it. Rich Irby LPN * Telephone Encounter - Lu Greene APRN.CNP - 06/01/2021 11:45 AM EDT 1. I don't see where we've seen her for this. She needs an appointment. 2. She also needs triaged to assess if she is acutely having symptoms and needs urgent evaluated inthe ER. Lu Greene APRN.CNP * Telephone Encounter - Yesenia Blanco LPN - 06/01/2021 11:24 AM EDT Pt calling to request a referral to Cardiology for heart beats hard . Please advise pt when this has been done. [facility] Yesenia Blanco LPN documented in this encounterAdena [facility]04-19-2022 History of Present illness Narrative* Mat Davidson, [facility] - 06/02/2021 1:00 PM EDT Primary Care Pharmacy Visit REASON FOR CONSULT: DM GOALS: A1c < 7% CONSULTING PROVIDER: ARMIN Rizzo And Dr. Hogan Date of Consult: 11/29/18 (Gigi) and 03/12/17 (Dr. Hogan) Rosa Maria Menjivar is a 55 year old female presenting for follow up visit by telephone. Patient consents to pharmacy collaborative practice agreement. Last seen by PCP, Dr. Samson Hogan MD on 01/15/2021. At last PCP appt, patient was advised to complete labs. Patient used to follow with pharmacy in the past but not seen since 2019 due to lost to follow up. INTERIM HISTORY: Reports she recently started taking her blood sugars again, had not been monitoring them for monthsprior States lately blood sugars have been in the 200s and 300s Has gone back to manual finger sticks as she had trouble keeping Terrell sensors on her arm, states they would fall off often Was scheduled to see endo but never showed for appts, so was not able to establish care with Endo (Dr. Estrella) States she eats junk food most of the time and know this is the biggest barrier in keeping blood sugars down Current DM Medications: Insulin lispro Inject subcutaneously 66 units with breakfast, 40 units with lunch and 94 units withdinner Insulin degludec Inject 88 Units subcutaneously twice daily Dulaglutide 3 mg once weekly Metformin 500 mg - 2 tablets twice daily Preventative Medications: On ADWOA/ARB: Yes On Statin: Yes GLYCEMIC CONTROL: Glucometer present at visit: No SMBG s: No BG log to review, Pt reports blood sugars have been in the 200s and 300s Hypoglycemia: denies ROS: Patient denies CP, SOB, SCHWAB, blurred vision, dizziness or lightheadedness Patient denies nausea, vomiting, diarrhea, abdominal pain Patient denies symptoms of hypoglycemia (sweating, anxiety, palpitations, hunger, and tremor) Patient denies symptoms of hyperglycemia (polyuria, polydipsia, polyphagia) Patient denies potential medication adverse effects DIET/EXERCISE/SOCIAL Hx: Typically having 2 -3 meals per day Breakfast: 2 egg sandwiches Lunch: leftovers from supper Dinner: lasagne, pasta, bhutanese rice, hot dogs and hamburgers, pork steaks, mashed potatoes Snacks: chips, easter candy, cookies, cheese sticks, yogurt Beverages: diet coke, water Exercise: limited MEDICATIONS: Pill bottles are not present. Adherence: denies missed doses. ACTIVE PROBLEM LIST Calculus of Kidney Renal Colic Hydronephrosis Calculus of Ureter Foreign Body in Bladder and Urethra Asa Class Iii Flank Hernia Morbid Obesity With Bmi of 50.0-59.9, Adult ([facility]) Depression Ddd (Degenerative Disc Disease), Lumbar Ibs (Irritable Bowel Syndrome) Panic Disorder Sleep Apnea Hypertension Diabetes Mellitus (Hcc) Lumbago Malignant Neoplasm of Kidney Excluding Renal Pelvis ([facility]) Mixed Hyperlipidemia Pvd (Peripheral Vascular Disease) ([facility]) Chronic Obstructive Pulmonary Disease ([facility]) PAST MEDICAL HISTORY Diagnosis Date COPD (chronic obstructive pulmonary disease) ([facility]) with chronic hypoxemic respiratory failure; on oxygen 2 liters continuously Degenerative disc disease Depression Diabetes mellitus type II Dyslipidemia Hypertension IBS (irritable bowel syndrome) Microalbuminuria on adwoa inhibitor Obesity Palpitations Panic disorder Renal calculus Renal cell carcinoma of right kidney ([facility]) 2009 S/P partial right nephrectomy Sleep apnea uses CPAP Tobacco abuse Urinary calculus, unspecified Renal stones ALLERGIES Allergen Reactions Morphine Itching Tetanus And Diphthe* Other: See Comments ? Reactive lymphadenopathy Toradol [Ketorolac * Heart racing and nightmares Current Outpatient Medications Medication Sig busPIRone (BUSPAR) 5 mg tablet Take 1 tablet by mouth three times daily. furosemide (LASIX) 40 mg tablet Take 1 tablet by mouth once daily. potassium chloride (K-TAB) 10 mEq tablet Take 2 tablets by mouth daily with breakfast. insulin lispro (HUMALOG) 200 unit/mL (3 mL) injection Inject subcutaneously 66 units with breakfast, 40 units with lunch and 94 units with dinner blood sugar diagnostic (FREESTYLE PRECISION WENDY STRIPS) test strip Use as instructed to check bloodsugar when indicated by reader. Checking once daily. 25 strips per month. Lancets lancets Test blood sugar(s) 4 times daily. Dx: Type 2 DM - Uncontrolled E11.65 Insulin: Yes gabapentin (NEURONTIN) 300 mg capsule Take 1 capsule by mouth three times daily for 90 days. Appointment needed for further refills. dulaglutide (TRULICITY) 3 mg/0.5 mL pen injector Inject 3 mg subcutaneously one time a week. insulin degludec (TRESIBA FLEXTOUCH U-200) 200 unit/mL (3 mL) injection Inject 88 Units subcutaneously twice daily. Insulin [place], Disposable, (ULTICARE PEN NEEDLE) 29 gauge x 1/2 USE FIVE TIMES A DAY lisinopril-hydroCHLOROthiazide (PRINZIDE,ZESTORETIC) 20-12.5 mg per tablet Take 2 tablets by mouth once daily. atenolol (TENORMIN) 50 mg tablet Take 1 tablet by mouth once daily. atorvastatin (LIPITOR) 40 mg tablet Take 1 tablet by mouth daily at bedtime. venlafaxine ER (EFFEXOR XR) 75 mg 24 hr capsule TAKE 1 CAPSULE BY MOUTH DAILY IN ADDITION TO 150 MGA DAY. metFORMIN ER (GLUCOPHAGE XR) 500 mg 24 hr tablet Take 2 tablets by mouth twice daily with meals. aspirin, enteric coated (ASPIRIN, ENTERIC COATED) 81 mg EC tablet Take 1 tablet by mouth once daily. venlafaxine ER (EFFEXOR XR) 150 mg 24 hr capsule Take 1 capsule by mouth once daily. albuterol HFA (PROVENTIL HFA, VENTOLIN HFA) 90 mcg/actuation inhaler Inhale 2 Puffs as instructed every 4 hours as needed. buPROPion SR (WELLBUTRIN SR) 150 mg 12 hr tablet Take one tablet once a day for 3 days then increase to twice a day CPAP 11 cm via nasal mask with 20 min ramp and humidification. OXYGEN, HOME THERAPY, 2 L/min by Nasal Cannula route continuous. blood sugar diagnostic (BLOOD GLUCOSE TEST) test strip Test blood sugar(s) 4 times daily. Dx: Type 2 DM - Uncontrolled E11.65 Insulin: Yes ammonium lactate (LAC-HYDRIN) 12 % cream Apply 1 application to affected area as needed. COMPOUNDED PRESCRIPTION C-PAP MASK HOSES, FILTERS glucose 4 gram chewable tablet Take 4 tablets by mouth as needed. For sugar less than 70 COMPOUNDED PRESCRIPTION COMPRESSION STOCKINGS 20-30 mm Knee high. DX: venous insufficiency COMPOUNDED PRESCRIPTION cpap supplies: sleep apnea COMPOUNDED PRESCRIPTION CPAP mask No current facility-administered medications for this visit. EXAM: Last 3 Encounter BP Readings: Date: BP: 11/07/2020 130/68 10/16/2019 120/62 03/08/2019 114/74 Wt: 149.4 kg (329 lb 6.4 oz) BMI: 56.54 kg/(m^2) LABS: Lab Results Component Value Date HBA1C 9.8 10/22/2020 HBA1C 10.3 03/24/2020 HBA1C 8.9 12/27/2018 CMP: Glucose 279 10/22/2020 BUN 19 10/22/2020 Creatinine (POCT) 0.49 10/22/2020 Sodium 138 10/22/2020 Potassium 3.5 10/22/2020 Chloride 98 10/22/2020 CO2 28 10/22/2020 Protein, Total 7.8 03/24/2020 Albumin 3.9 03/24/2020 Calcium 9.2 10/22/2020 Alkaline Phosphatase 127 03/24/2020 Bilirubin, Total 0.2 03/24/2020 AST 13 03/24/2020 ALT 18 03/24/2020 EGFR: >60 mL/min/1.73m2 No results found for: B12 Lab Results Component Value Date CHOL 121 03/24/2020 LDL 20 03/24/2020 HDL 32 03/24/2020 TG 343 03/24/2020 The ASCVD Risk score ([place] MALIN Jr., et al., 2013) failed to calculate for the following reasons: The valid total cholesterol range is 130 to 320 mg/dL Albumin/Creat Ratio (mg/g) Date Value 03/24/2020 937 (H) PHARMACOTHERAPY ASSESSMENT/PLAN: 1. Type 2 diabetes mellitus without complication, with long-term current use of insulin ([facility]) - ICD9: 250.00, V58.67, ICD10: E11.9, Z79.4 A1c goal < 7%; uncontrolled (last A1c 9.8%); SMBG elevated on current regimen. Denies s/sx of hypoglycemia. Patient is overdue for labs and contributes more elevated readings to diet excursions. Pt would benefit from meeting with nutrition therapy. No med changes today, can consider increasing Trulicity dose once labs result. In the future, with current large insulin requirement, can consider switching to insulin U500 if patient is following up more consistently with visits and labs, due to risk of hypoglycemia with managing more concentrated insulin. Renal function and LFTs appropriate for continued use. CONTINUE Insulin lispro Inject subcutaneously 66 units with breakfast, 40 units with lunch and 94 units with dinner, Insulin degludec Inject 88 Units subcutaneously twice daily, Dulaglutide 3 mg onceweekly, Metformin 500 mg - 2 tablets twice daily HbA1c: due now - instructed to go to lab - CONSULT TO NUTRITION THERAPY Follow up: Patient is not scheduled to see PCP. Encouraged to schedule with PCP as overdue for follow up. Patient to follow up with PharmD on 06/23/21. Patient verbalized understanding of instructions. Mat Davidson PharmD, BCACP Primary Care Clinical Pharmacist [facility] The majority of the pharmacy visit (> 50%) was spent counseling and/or coordinating care for thepatient. [Telephonic] time was 23 minutes. documented in this encounterAdena [facility] Center04-15-2022 Miscellaneous Notes* Telephone Encounter - Izabella Haas LPN - 05/29/2021 11:56 AM EDT Patient has been identified by name and date of : Yes Patient phones for refill(s): Pending Prescriptions Disp Refills BUSPIRONE 5 MG TABLET 90 tablet 5 Sig: Take 1 tablet by mouth three times daily. BRIANNA: No FUROSEMIDE 40 MG TABLET 28 tablet 5 Sig: Take 1 tablet by mouth once daily. BRIANNA: No POTASSIUM CHLORIDE ER 10 MEQ TABLET,EXTENDED RELEASE 60 tablet 5 Sig: Take 2 tablets by mouth daily with breakfast. BRIANNA: No Date of last office visit in primary care: 01/15/21 Last 2 Encounter Wt Readings: Date: Wt: 11/07/2020 149.4 kg (329 lb 6.4 oz) 11/07/2020 149.4 kg (329 lb 6.4 oz) Previous labs/tests for medication: Not applicable Please advise. Thank you. Izabella Haas LPN documented in this encounterAdena [facility] Center04-15-2022 Miscellaneous Notes* Telephone Encounter - Elaine Parker LPN - 05/29/2021 10:18 AM EDT Patient here to have labs completed and needs updated labs from remote use only labs. No need to contact can close after orders filed. documented in this encounterAdena [facility] Center08-05-2010 History of Past illness Narrative* Problem Noted Date Resolved Date Dehiscence of incision 09/18/2009 1 Surgical wound infection 09/18/2009 019 Malignant neoplasm of kidney excluding renal pel vis 11/21/2008 06/25/2015 Urinary complications 03/21/2008 11/19/2015 Acute kidney failure, unspecified 03/21/2008 01/17/2017 documented as of this encounter (statuses as of 05/29/2021) [facility] of Past illness Narrative* Problem Noted Date Resolved Date Dehiscence of incision 09/18/2009 1 Surgical wound infection 09/18/2009 019 Malignant neoplasm of kidney excluding renal pel vis 11/21/2008 06/25/2015 Urinary complications 03/21/2008 11/19/2015 Acute kidney failure, unspecified 03/21/2008 01/17/2017 documented as of this encounter (statuses as of 05/29/2021) [facility] of [facility] illness Narrative* Problem Noted Date Resolved Date Dehiscence of incision 09/18/2009 1 Surgical wound infection 09/18/2009 019 Malignant neoplasm of kidney excluding renal pel vis 11/21/2008 06/25/2015 Urinary complications 03/21/2008 11/19/2015 Acute kidney failure, unspecified 03/21/2008 01/17/2017 documented as of this encounter (statuses as of 05/30/2021) [facility] illness Narrative* Problem Noted Date Resolved Date Dehiscence of incision 09/18/2009 1 Surgical wound infection 09/18/2009 019 Malignant neoplasm of kidney excluding renal pel vis 11/21/2008 06/25/2015 Urinary complications 03/21/2008 11/19/2015 Acute kidney failure, unspecified 03/21/2008 01/17/2017 documented as of this encounter (statuses as of 06/04/2021) [facility] Narrative* Problem Noted Date Resolved Date Dehiscence of incision 09/18/2009 1 Surgical wound infection 09/18/2009 019 Malignant neoplasm of kidney excluding renal pel vis 11/21/2008 06/25/2015 Urinary complications 03/21/2008 11/19/2015 Acute kidney failure, unspecified 03/21/2008 01/17/2017 documented as of this encounter (statuses as of 06/10/2021) [facility] Narrative* Problem Noted Date Resolved Date Dehiscence of incision 09/18/2009 1 Surgical wound infection 09/18/2009 019 Malignant neoplasm of kidney excluding renal pel vis 11/21/2008 06/25/2015 Urinary complications 03/21/2008 11/19/2015 Acute kidney failure, unspecified 03/21/2008 01/17/2017 documented as of this encounter (statuses as of 06/14/2021) [facility] Narrative* Problem Noted Date Resolved Date Dehiscence of incision 09/18/2009 1 Surgical wound infection 09/18/2009 019 Malignant neoplasm of kidney excluding renal pel vis 11/21/2008 06/25/2015 Urinary complications 03/21/2008 11/19/2015 Acute kidney failure, unspecified 03/21/2008 01/17/2017 documented as of this encounter (statuses as of 06/18/2021) [facility] Narrative* Problem Noted Date Resolved Date Dehiscence of incision 09/18/2009 1 Surgical wound infection 09/18/2009 019 Malignant neoplasm of kidney excluding renal pel vis 11/21/2008 06/25/2015 Urinary complications 03/21/2008 11/19/2015 Acute kidney failure, unspecified 03/21/2008 01/17/2017 documented as of this encounter (statuses as of 06/23/2021) [facility] Narrative* Problem Noted Date Resolved Date Dehiscence of incision 09/18/2009 1 Surgical wound infection 09/18/2009 019 Malignant neoplasm of kidney excluding renal pel vis 11/21/2008 06/25/2015 Urinary complications 03/21/2008 11/19/2015 Acute kidney failure, unspecified 03/21/2008 01/17/2017 documented as of this encounter (statuses as of 06/24/2021) [facility] Narrative* Problem Noted Date Resolved Date Dehiscence of incision 09/18/2009 1 Surgical wound infection 09/18/2009 019 Malignant neoplasm of kidney excluding renal pel vis 11/21/2008 06/25/2015 Urinary complications 03/21/2008 11/19/2015 Acute kidney failure, unspecified 03/21/2008 01/17/2017 documented as of this encounter (statuses as of 07/10/2021) [facility] Narrative* Problem Noted Date Resolved Date Dehiscence of incision 09/18/2009 1 Surgical wound infection 09/18/2009 019 Malignant neoplasm of kidney excluding renal pel vis 11/21/2008 06/25/2015 Urinary complications 03/21/2008 11/19/2015 Acute kidney failure, unspecified 03/21/2008 01/17/2017 documented as of this encounter (statuses as of 07/24/2021) [facility] Narrative* Problem Noted Date Resolved Date Dehiscence of incision 09/18/2009 1 Surgical wound infection 09/18/2009 019 Malignant neoplasm of kidney excluding renal pel vis 11/21/2008 06/25/2015 Urinary complications 03/21/2008 11/19/2015 Acute kidney failure, unspecified 03/21/2008 01/17/2017 documented as of this encounter (statuses as of 07/29/2021) [facility] of Past illness Narrative* Problem Noted Date Resolved Date Dehiscence of incision 09/18/2009 1 Surgical wound infection 09/18/2009 019 Malignant neoplasm of kidney excluding renal pel vis 11/21/2008 06/25/2015 Urinary complications 03/21/2008 11/19/2015 Acute kidney failure, unspecified 03/21/2008 01/17/2017 documented as of this encounter (statuses as of 08/05/2021) [facility] History of Past illness Narrative* Problem Noted Date Resolved Date Dehiscence of incision 09/18/2009 1 Surgical wound infection 09/18/2009 019 Malignant neoplasm of kidney excluding renal pel vis 11/21/2008 06/25/2015 Urinary complications 03/21/2008 11/19/2015 Acute kidney failure, unspecified 03/21/2008 01/17/2017 documented as of this encounter (statuses as of 08/10/2021) [facility] History of Past illness Narrative* Problem Noted Date Resolved Date Dehiscence of incision 09/18/2009 1 Surgical wound infection 09/18/2009 019 Malignant neoplasm of kidney excluding renal pel vis 11/21/2008 06/25/2015 Urinary complications 03/21/2008 11/19/2015 Acute kidney failure, unspecified 03/21/2008 01/17/2017 documented as of this encounter (statuses as of 08/11/2021) [facility] History of Past illness Narrative* Problem Noted Date Resolved Date Dehiscence of incision 09/18/2009 1 Surgical wound infection 09/18/2009 019 Malignant neoplasm of kidney excluding renal pel vis 11/21/2008 06/25/2015 Urinary complications 03/21/2008 11/19/2015 Acute kidney failure, unspecified 03/21/2008 01/17/2017 documented as of this encounter (statuses as of 08/13/2021) [facility] History of Past illness Narrative* Problem Noted Date Resolved Date Dehiscence of incision 09/18/2009 1 Surgical wound infection 09/18/2009 019 Malignant neoplasm of kidney excluding renal pel vis 11/21/2008 06/25/2015 Urinary complications 03/21/2008 11/19/2015 Acute kidney failure, unspecified 03/21/2008 01/17/2017 documented as of this encounter (statuses as of 08/28/2021) [facility] History of Past illness Narrative* Problem Noted Date Resolved Date Dehiscence of incision 09/18/2009 1 Surgical wound infection 09/18/2009 019 Malignant neoplasm of kidney excluding renal pel vis 11/21/2008 06/25/2015 Urinary complications 03/21/2008 11/19/2015 Acute kidney failure, unspecified 03/21/2008 01/17/2017 documented as of this encounter (statuses as of 09/07/2021) [facility] History of Past illness Narrative* Problem Noted Date Resolved Date Dehiscence of incision 09/18/2009 1 Surgical wound infection 09/18/2009 019 Malignant neoplasm of kidney excluding renal pel vis 11/21/2008 06/25/2015 Urinary complications 03/21/2008 11/19/2015 Acute kidney failure, unspecified 03/21/2008 01/17/2017 documented as of this encounter (statuses as of 09/07/2021) [facility] History of Past illness Narrative* Problem Noted Date Resolved Date Dehiscence of incision 09/18/2009 1 Surgical wound infection 09/18/2009 019 Malignant neoplasm of kidney excluding renal pel vis 11/21/2008 06/25/2015 Urinary complications 03/21/2008 11/19/2015 Acute kidney failure, unspecified 03/21/2008 01/17/2017 documented as of this encounter (statuses as of 09/17/2021) [facility] History of Past illness Narrative* Problem Noted Date Resolved Date Dehiscence of incision 09/18/2009 1 Surgical wound infection 09/18/20092 019 Malignant neoplasm of kidney excluding renal pel vis 11/21/2008 06/25/2015 Urinary complications 03/21/2008 11/19/2015 Acute kidney failure, unspecified 03/21/2008 01/17/2017 documented as of this encounter (statuses as of 09/24/2021) [facility] History of Past illness Narrative* Problem Noted Date Resolved Date Dehiscence of incision 09/18/2009 1 Surgical wound infection 09/18/2009 019 Malignant neoplasm of kidney excluding renal pel vis 11/21/2008 06/25/2015 Urinary complications 03/21/2008 11/19/2015 Acute kidney failure, unspecified 03/21/2008 01/17/2017 documented as of this encounter (statuses as of 10/02/2021) [facility] History of Past illness Narrative* Problem Noted Date Resolved Date Dehiscence of incision 09/18/2009 1 Surgical wound infection 09/18/2009 019 Malignant neoplasm of kidney excluding renal pel vis 11/21/2008 06/25/2015 Urinary complications 03/21/2008 11/19/2015 Acute kidney failure, unspecified 03/21/2008 01/17/2017 documented as of this encounter (statuses as of 10/14/2021) [facility] History of Past illness Narrative* Problem Noted Date Resolved Date Dehiscence of incision 09/18/2009 1 Surgical wound infection 09/18/2009 019 Malignant neoplasm of kidney excluding renal pel vis 11/21/2008 06/25/2015 Urinary complications 03/21/2008 11/19/2015 Acute kidney failure, unspecified 03/21/2008 01/17/2017 documented as of this encounter (statuses as of 10/15/2021) [facility] History of Past illness Narrative* Problem Noted Date Resolved Date Dehiscence of incision 09/18/2009 1 Surgical wound infection 09/18/2009 019 Malignant neoplasm of kidney excluding renal pel vis 11/21/2008 06/25/2015 Urinary complications 03/21/2008 11/19/2015 Acute kidney failure, unspecified 03/21/2008 01/17/2017 documented as of this encounter (statuses as of 10/16/2021) [facility] History of Past illness Narrative* Problem Noted Date Resolved Date Dehiscence of incision 09/18/2009 1 Surgical wound infection 09/18/2009 019 Malignant neoplasm of kidney excluding renal pel vis 11/21/2008 06/25/2015 Urinary complications 03/21/2008 11/19/2015 Acute kidney failure, unspecified 03/21/2008 01/17/2017 documented as of this encounter (statuses as of 10/18/2021) [facility] Type 2 diabetes mellitus without complication, with long-term current use of insulin (HCC)- Primary Mixed hyperlipidemia Primary hypertension Unspecified essential hypertension Essential hypertension Unspecified essential hypertension [facility] Diagnosis Anxiety Anxiety state, unspecified Essential hypertension Unspecified essential hypertension Hypokalemia Hypopotassemia [facility] Diagnosis Liver mass Unspecified disorder of liver [facility]* Diagnosis SOB (shortness of breath)- Primary Shortness of breath [facility] Diagnosis Liver mass- Primary Unspecified disorder of liver [facility]* Diagnosis Type 2 diabetes mellitus without complication, with long-term current use of insulin (HCC)- Primary [facility]* Diagnosis Type 2 diabetes mellitus without complication, with long-term current use of insulin (HCC)- Primary [facility] Diagnosis Anxiety- Primary Anxiety state, unspecified [facility] Diagnosis Type 2 diabetes mellitus without complication, with long-term current use of insulin (HCC)- Primary documented in this encounter [facility] note* Diagnosis Acute maxillary sinusitis, recurrence not specified- Primary documented in this encounter [facility] note* Diagnosis Type 2 diabetes mellitus without complication, with long-term current use of insulin (HCC) [facility]* Diagnosis Encounter for screening mammogram for breast cancer documented [facility]* Diagnosis DDD (degenerative disc disease), lumbar Degeneration of lumbar or lumbosacral intervertebral disc [facility] Diagnosis Primary hypertension- Primary Unspecified essential hypertension Mixed hyperlipidemia PVD (peripheral vascular disease) (HCC) Peripheral vascular disease, unspecified Chronic hypoxemic respiratory failure (HCC) Chronic respiratory failure Chronic obstructive pulmonary disease, unspecified COPD type (HCC) Obstructive sleep apnea syndrome Obstructive sleep apnea (adult) (pediatric) Depression, unspecified depression type Lung nodules Other nonspecific abnormal finding of lung field Anxiety Anxiety state, unspecified Panic disorder Panic disorder without agoraphobia Type 2 diabetes mellitus without complication, with long-term current use of insulin (HCC) Polycythemia Polycythemia vera Irritable bowel syndrome, unspecified type Dry skin Other specified disease of sebaceous glands Low libido Decreased libido Screening for cervical cancer Screening for malignant neoplasm of the cervix [facility] Diagnosis Uncontrolled type 2 diabetes mellitus with hyperglycemia (HCC)- Primary [facility] Diagnosis Microalbuminuria- Primary Proteinuria [facility] Diagnosis Type 2 diabetes mellitus without complication, with long-term current use of insulin (HCC) [facility]* Diagnosis gallbladder duct cyst- Primary Other specified disorders of liver Staghorn renal calculus Calculus of kidney Adrenal adenoma, right [facility] Diagnosis Hypokalemia Hypopotassemia Essential hypertension Unspecified essential hypertension Anxiety Anxiety state, unspecified [facility] Diagnosis Essential hypertension Unspecified essential hypertension Mixed hyperlipidemia Panic disorder Panic disorder without agoraphobia DDD (degenerative disc disease), lumbar Degeneration of lumbar or lumbosacral intervertebral disc documented [facility]* Diagnosis Type 2 diabetes mellitus without complication, with long-term current use of insulin (HCC) documented [facility]* Diagnosis Type 2 diabetes mellitus without complication, with long-term current use of insulin (HCC) documented [facility]* Diagnosis Albuminuria- Primary Proteinuria Type 2 diabetes mellitus with other specified complication, with long-term current use of insulin (HCC) [facility] Diagnosis DDD (degenerative disc disease), lumbar Degeneration of lumbar or lumbosacral intervertebral disc [facility] Diagnosis Anxiety- Primary Anxiety state, unspecified Depression, unspecified depression type Type 2 diabetes mellitus without complication, with long-term current use of insulin (HCC) Primary hypertension Unspecified essential hypertension [facility]* Diagnosis Type 2 diabetes mellitus without complication, with long-term current use of insulin (HCC) [facility] Diagnosis Essential hypertension Unspecified essential hypertension Anxiety Anxiety state, unspecified Hypokalemia Hypopotassemia [facility] Diagnosis Ground glass opacity present on imaging of lung- Primary Lung nodules Other nonspecific abnormal finding of lung field [facility] Diagnosis Essential hypertension- Primary Unspecified essential hypertension Mixed hyperlipidemia PVD (peripheral vascular disease) (HCC) Peripheral vascular disease, unspecified Chronic hypoxemic respiratory failure (HCC) Chronic respiratory failure Type 2 diabetes mellitus without complication, with long-term current use of insulin (HCC) Albuminuria Proteinuria Depression, unspecified depression type Anxiety Anxiety state, unspecified Panic disorder Panic disorder without agoraphobia Polycythemia Polycythemia vera Kidney stone Calculus of kidney [facility] Diagnosis DDD (degenerative disc disease), lumbar Degeneration of lumbar or lumbosacral intervertebral disc Essential hypertension Unspecified essential hypertension Mixed hyperlipidemia Panic disorder Panic disorder without agoraphobia Type 2 diabetes mellitus without complication, with long-term current use of insulin (HCC) [facility] Diagnosis Type 2 diabetes mellitus without complication, with long-term current use of insulin ([facility]) [facility] Diagnosis Depression, unspecified depression type documented [facility] Diagnosis Type 2 diabetes mellitus without complication, with long-term current use of insulin ([facility]) [facility] Diagnosis Redness of skin- Primary Unspecified erythematous condition Bilateral elbow joint pain [facility] Diagnosis Encounter for screening mammogram for breast cancer [facility] Diagnosis Type 2 diabetes mellitus without complication, with long-term current use of insulin (HCC) [facility] Diagnosis Type 2 diabetes mellitus without complication, with long-term current use of insulin (HCC) [facility] Diagnosis Type 2 diabetes mellitus without complication, with long-term current use of insulin ([facility]) [facility] Diagnosis Venous insufficiency of both lower extremities- Primary [facility] Diagnosis DDD (degenerative disc disease), lumbar Degeneration of lumbar or lumbosacral intervertebral disc [facility] Diagnosis Depression, unspecified depression type [facility] Diagnosis Type 2 diabetes mellitus without complication, with long-term current use of insulin ([facility]) [facility] Diagnosis Essential hypertension Unspecified essential hypertension Anxiety Anxiety state, unspecified Hypokalemia Hypopotassemia [facility] Diagnosis DDD (degenerative disc disease), lumbar Degeneration of lumbar or lumbosacral intervertebral disc Essential hypertension Unspecified essential hypertension Mixed hyperlipidemia Panic disorder Panic disorder without agoraphobia documented [facility]* Diagnosis Essential hypertension- Primary Unspecified essential hypertension Mixed hyperlipidemia PVD (peripheral vascular disease) (HCC) Peripheral vascular disease, unspecified Lung nodules Other nonspecific abnormal finding of lung field Chronic hypoxemic respiratory failure (HCC) Chronic respiratory failure Chronic obstructive pulmonary disease, unspecified COPD type (HCC) Obstructive sleep apnea syndrome Obstructive sleep apnea (adult) (pediatric) Tobacco dependence Tobacco use disorder Type 2 diabetes mellitus without complication, with long-term current use of insulin (HCC) Microalbuminuria Proteinuria Depression, unspecified depression type Anxiety Anxiety state, unspecified Panic disorder Panic disorder without agoraphobia Polycythemia Polycythemia vera Irritable bowel syndrome, unspecified type Dry skin Other specified disease of sebaceous glands Encounter for immunization Need for other specified prophylactic vaccination against single bacterial disease Paronychia of finger of left hand documented in this encounter [facility] note* Diagnosis Thyroid nodule greater than or equal to 1 cm in diameter incidentally noted on imaging study- Primary [facility]* Diagnosis Thyroid nodule Nontoxic uninodular goiter documented [facility]* Diagnosis Lung nodules Other nonspecific abnormal finding of lung field Cigarette smoker Tobacco use disorder History of renal cell cancer documented [facility] this [facility]* Diagnosis Type 2 diabetes mellitus without complication, with long-term current use of insulin ([facility]) documented in this encounter [facility] note* Diagnosis DDD (degenerative disc disease), lumbar Degeneration of lumbar or lumbosacral intervertebral disc documented in this encounter [facility] for referral (narrative)* Diagnostic Procedure Only (Routine) - Pending Review Specialty Diagnoses / Procedures Referred By Contac t Referred To Contact [facility] Diagnoses Encounter for screening mammogram for breast cancer Procedures SHAHRAM SCREENING SCREENING MAMMOGRAPHY BI 2-VIEW BREAST INC CAD Jovany Rizzo PA-C [address] [place] [address] [facility] [address] [place] [address] Referral ID Status Reason Start Date Expiration Date Visits Requested Visits Authorized [id number] Pending Review Auto-Generat ed Referral 08/05/2021 09/04/2022 1 1 [facility] for referral (narrative)* Diagnostic Procedure Only (Routine) - Pending Review Specialty Diagnoses / Procedures Referred By Contac t Referred To Contact [facility] Diagnoses Encounter for screening mammogram for breast cancer Procedures SHAHRAM SCREENING SCREENING MAMMOGRAPHY BI 2-VIEW BREAST INC CAD Jovany Rizzo PA-C [address] [place] [address] [facility] [address] [place] [address] Referral ID Status Reason Start Date Expiration Date Visits Requested Visits Authorized [id number] Pending Review Auto-Generat ed Referral 07/07/2022 08/06/2023 1 1 [facility] for referral (narrative)* Diagnostic Procedure Only (Routine) - Closed Specialty Diagnoses / Procedures Referred By Contac t Referred To Contact [facility] Diagnoses Thyroid nodule Procedures US THYROID/PARATHYROID US SOFT TISSUE HEAD & NECK REAL TIME IMGE Jovany Saunders PA-C [address] [place] [address] [place] [address] Referral ID Status Reason Start Date Expiration Date V isits Requested Visits Authorized [id number] Closed Auto-Generate d Referral 05/19/2022 06/18/2023 1 1 [facility] Summary Purpose Family History No Family History Records FoundNo Family History Records Found Advance Directives Documents on File Type Date Recorded Patient Associate Brand Manager Expl anation Advance Directive(s) Advance Directive(s) 03/21/2015 4:30 PM Documents on File Type Date Recorded Patient Associate Brand Manager Expl anation Advance Directive(s) Advance Directive(s) 03/21/2015 4:30 PM Reason for Referral Specialty Diagnoses / Procedures Referred By Contac t Referred To Contact Cardiology Diagnoses SOB (shortness of breath) Procedures CONSULT TO CARDIOLOGY OFFICE/OUTPATIENT [facility] 60-74 MINUTES Samson Hogan MD [address] [place] [address] Referral ID Status Reason Start Date Expiration Date Visits Requested Visits Authorized [id number] Authorized PCP Requested Referral 06/01/2021 06/01/2022 1 1 Specialty Diagnoses / Procedures Referred By Arianaac t Referred To Contact [facility] Diagnoses Liver mass Procedures MRI LIVER WO/W IVCON MRI ABDOMEN W/O & W/CONTRAST MATERIAL Samson Hogan MD [address] [place] [id number] [facility] Referral ID Status Reason Start Date Expiration Date Visits Requested Visits Authorized [id number] Pending Review Auto-Generat ed Referral 06/10/2021 07/10/2022 1 1 Specialty Diagnoses / Procedures Referred By Di t Referred To Contact Nutrition Diagnoses Type 2 diabetes mellitus without complication, with long-term current use of insulin (HCC) Procedures CONSULT TO NUTRITION THERAPY OFFICE/OUTPATIENT NEW HIGH MDM 60-74 MINUTES Samson Hogan MD [address] [id number] Referral ID Status Reason Start Date Expiration Date Visits Requested Visits Authorized [id number] Authorized PCP Requested Referral 06/02/2021 06/02/2022 1 1 Specialty Diagnoses / Procedures Referred By Arianaac t Referred To Contact Gynecology Diagnoses Low libido Screening for cervical cancer Procedures CONSULT TO GYNECOLOGY OFFICE/OUTPATIENT NEW HIGH MDM 60-74 MINUTES Jovany Rizzo PA-C [address] [id number] Referral ID Status Reason Start Date Expiration Date Visits Requested Visits Authorized [id number] Authorized PCP Requested Referral Auto-Generate d Referral 09/24/2021 09/24/2022 1 1 Specialty Diagnoses / Procedures Referred By Contac t Referred To Contact Ophthalmology Diagnoses Type 2 diabetes mellitus without complication, with long-term current use of insulin (HCC) Procedures CONSULT TO OPHTHALMOLOGY OFFICE/OUTPATIENT NEW HIGH MDM 60-74 MINUTES Jovany Rizzo PA-C [address] [place] [address] Referral ID Status Reason Start Date Expiration Date Visits Requested Visits Authorized [id number] Authorized PCP Requested Referral 09/24/2021 09/24/2022 1 1 Specialty Diagnoses / Procedures Referred By Contac t Referred To Contact Diagnoses Type 2 diabetes mellitus without complication, with long-term current use of insulin (HCC) Jovany Rizzo PA-C [address] [place] [address] Referral ID Status Reason Start Date Expiration Date Visits Re quested Visits Authorized [id number] Closed 1 1 Referral ID Status Reason Start Date Expiration Date Visits Re quested Visits Authorized [id number] Closed 1 1 Referral ID Status Reason Start Date Expiration Date Visits Re quested Visits Authorized [id number] Closed 1 1 Referral ID Status Reason Start Date Expiration Date Visits Re quested Visits Authorized [id number] Closed 1 1 Specialty Diagnoses / Procedures Referred By Contac t Referred To Contact Nephrology Diagnoses Albuminuria Type 2 diabetes mellitus with other specified complication, with long-term current use of insulin ([facility]) Procedures CONSULT TO NEPHROLOGY OFFICE/OUTPATIENT NEW HIGH MDM 60-74 MINUTES Jovany Rizzo PA-C [address] [place] [address] Referral ID Status Reason Start Date Expiration Date Visits Requested Visits Authorized [id number] Authorized PCP Requested Referral 10/25/2021 10/25/2022 1 1 Specialty Diagnoses / Procedures Referred By Contac t Referred To Contact Diagnoses Type 2 diabetes mellitus without complication, with long-term current use of insulin ([facility] [facility] Samson Hogan MD [address] [place] [address] Referral ID Status Reason Start Date Expiration Date Visits Re quested Visits Authorized [id number] Closed 1 1 Referral ID Status Reason Start Date Expiration Date Visits Re quested Visits Authorized [id number] Closed 1 1 Specialty Diagnoses / Procedures Referred By Contac t Referred To Contact CT IMAGING Diagnoses Lung nodules Ground glass opacity present on imaging of lung Procedures CT CHEST WO IVCON DIAGNOSTIC COMPUTED TOMOGRAPHY THORAX W/O Patti Goss MD [address] [place] [address] Ct Imaging Referral ID Status Reason Start Date Expiration Date Visits Requested Visits Authorized [id number] Pending Review Auto-Generat ed Referral 05/18/2023 06/16/2023 1 1 Referral ID Status Reason Start Date Expiration Date Visits Re quested Visits Authorized [id number] Closed 1 1 Specialty Diagnoses / Procedures Referred By Contac t Referred To Contact Endocrinology Diagnoses Type 2 diabetes mellitus without complication, with long-term current use of insulin (HCC) Procedures CONSULT TO ENDOCRINOLOGY OFFICE/OUTPATIENT [facility] 60-74 MINUTES Samson Hgoan MD [address] [place] [address] Referral ID Status Reason Start Date Expiration Date Visits Requested Visits Authorized [id number] Authorized PCP Requested Referral 07/21/2022 07/21/2023 1 1 Referral ID Status Reason Start Date Expiration Date Visits Re quested Visits Authorized [id number] Closed 1 1 Referral ID Status Reason Start Date Expiration Date Visits Re quested Visits Authorized [id number] Closed 1 1 Specialty Diagnoses / Procedures Referred By Contac t Referred To Contact General Surgery Diagnoses Thyroid nodule greater than or equal to 1 cm in diameter incidentally noted on imaging study Procedures CONSULT TO GENERAL SURGERY OFFICE/OUTPATIENT [facility] 60-74 MINUTES Jovany Rizzo PA-C [address] [place] [address] Referral ID Status Reason Start Date Expiration Date Visits Requested Visits Authorized [id number] Authorized PCP Requested Referral 3 11/27/2023 1 1 Specialty Diagnoses / Procedures Referred By Contac t Referred To Contact CT IMAGING Diagnoses Lung nodules Cigarette smoker History of renal cell cancer Procedures CT CHEST WO IVCON DIAGNOSTIC COMPUTED TOMOGRAPHY THORAX W/O Patti Goss MD [address] [place] [address] [place] [address] Referral ID Status Reason Start Date Expiration Date V isits Requested Visits Authorized [id number] Closed Auto-Generate d Referral 03/16/2022 05/15/2022 1 1 Referral ID Status Reason Start Date Expiration Date Visits Re quested Visits Authorized [id number] Closed 1 1 Additional Source Comments INFORMATION SOURCE (unrecogn ized section and content) DATE CREATED AUTHOR AUTHOR'S JAYY PERSAUD 11/29/2022 [facility] Source Comments (unrecognize d section and content) In the event this informatio n is protected by the Federal Confidentiality of Alcohol and Drug Abuse Patient Records regulations: The Federal rules restrict any use of the information to criminally investigate or prosecute any alcohol or drug abuse patient.[facility] the event this information is protected by the Federal Confidentiality of Alcohol and Drug Abuse Patient Records regulations: The Federal rules restrict any use of the information to criminally investigate or prosecute any alcohol or drug abuse patient.[facility] CenterIn the event this information is protected by the Federal Confidentiality of Alcohol and Drug Abuse Patient Records regulations: The Federal rules restrict any use of the information to criminally investigate or prosecute any alcohol or drug abuse patient.[facility]In the event this information is protected by the Federal Confidentiality of Alcohol and Drug Abuse Patient Records regulations: The Federal rules restrict any use of the information to criminally investigate or prosecute any alcohol or drug abuse patient.[facility] CenterIn the event this information is protected by the Federal Confidentiality of Alcohol and Drug Abuse Patient Records regulations: The Federal rules restrict any use of the information to criminally investigate or prosecute any alcohol or drug abuse patient.[facility] CenterIn the event this information is protected by the Federal Confidentiality of Alcohol and Drug Abuse Patient Records regulations: The Federal rules restrict any use of the information to criminally investigate or prosecute any alcohol or drug abuse patient.[facility] CenterIn the event this information is protected by the Federal Confidentiality of Alcohol and Drug Abuse Patient Records regulations: The Federal rules restrict any use of the information to criminally investigate or prosecute any alcohol or drug abuse patient.[facility] CenterIn the event this information is protected by the Federal Confidentiality of Alcohol and Drug Abuse Patient Records regulations: The Federal rules restrict any use of the information to criminally investigate or prosecute any alcohol or drug abuse patient.[facility] CenterIn the event this information is protected by the Federal Confidentiality of Alcohol and Drug Abuse Patient Records regulations: The Federal rules restrict any use of the information to criminally investigate or prosecute any alcohol or drug abuse patient.[facility] CenterIn the event this information is protected by the Federal Confidentiality of Alcohol and Drug Abuse Patient Records regulations: The Federal rules restrict any use of the information to criminally investigate or prosecute any alcohol or drug abuse patient.[facility] CenterIn the event this information is protected by the Federal Confidentiality of Alcohol and Drug Abuse Patient Records regulations: The Federal rules restrict any use of the information to criminally investigate or prosecute any alcohol or drug abuse patient.[facility] CenterIn the event this information is protected by the Federal Confidentiality of Alcohol and Drug Abuse Patient Records regulations: The Federal rules restrict any use of the information to criminally investigate or prosecute any alcohol or drug abuse patient.[facility] CenterIn the event this information is protected by the Federal Confidentiality of Alcohol and Drug Abuse Patient Records regulations: The Federal rules restrict any use of the information to criminally investigate or prosecute any alcohol or drug abuse patient.[facility] CenterIn the event this information is protected by the Federal Confidentiality of Alcohol and Drug Abuse Patient Records regulations: The Federal rules restrict any use of the information to criminally investigate or prosecute any alcohol or drug abuse patient.[facility] CenterIn the event this information is protected by the Federal Confidentiality of Alcohol and Drug Abuse Patient Records regulations: The Federal rules restrict any use of the information to criminally investigate or prosecute any alcohol or drug abuse patient.[facility] CenterIn the event this information is protected by the Federal Confidentiality of Alcohol and Drug Abuse Patient Records regulations: The Federal rules restrict any use of the information to criminally investigate or prosecute any alcohol or drug abuse patient.[facility] CenterIn the event this information is protected by the Federal Confidentiality of Alcohol and Drug Abuse Patient Records regulations: The Federal rules restrict any use of the information to criminally investigate or prosecute any alcohol or drug abuse patient.[facility] CenterIn the event this information is protected by the Federal Confidentiality of Alcohol and Drug Abuse Patient Records regulations: The Federal rules restrict any use of the information to criminally investigate or prosecute any alcohol or drug abuse patient.[facility] CenterIn the event this information is protected by the Federal Confidentiality of Alcohol and Drug Abuse Patient Records regulations: The Federal rules restrict any use of the information to criminally investigate or prosecute any alcohol or drug abuse patient.[facility] CenterIn the event this information is protected by the Federal Confidentiality of Alcohol and Drug Abuse Patient Records regulations: The Federal rules restrict any use of the information to criminally investigate or prosecute any alcohol or drug abuse patient.[facility] CenterIn the event this information is protected by the Federal Confidentiality of Alcohol and Drug Abuse Patient Records regulations: The Federal rules restrict any use of the information to criminally investigate or prosecute any alcohol or drug abuse patient.[facility] CenterIn the event this information is protected by the Federal Confidentiality of Alcohol and Drug Abuse Patient Records regulations: The Federal rules restrict any use of the information to criminally investigate or prosecute any alcohol or drug abuse patient.[facility] CenterIn the event this information is protected by the Federal Confidentiality of Alcohol and Drug Abuse Patient Records regulations: The Federal rules restrict any use of the information to criminally investigate or prosecute any alcohol or drug abuse patient.[facility] CenterIn the event this information is protected by the Federal Confidentiality of Alcohol and Drug Abuse Patient Records regulations: The Federal rules restrict any use of the information to criminally investigate or prosecute any alcohol or drug abuse patient.[facility] CenterIn the event this information is protected by the Federal Confidentiality of Alcohol and Drug Abuse Patient Records regulations: The Federal rules restrict any use of the information to criminally investigate or prosecute any alcohol or drug abuse patient.[facility] CenterIn the event this information is protected by the Federal Confidentiality of Alcohol and Drug Abuse Patient Records regulations: The Federal rules restrict any use of the information to criminally investigate or prosecute any alcohol or drug abuse patient.[facility] CenterIn the event this information is protected by the Federal Confidentiality of Alcohol and Drug Abuse Patient Records regulations: The Federal rules restrict any use of the information to criminally investigate or prosecute any alcohol or drug abuse patient.[facility] CenterIn the event this information is protected by the Federal Confidentiality of Alcohol and Drug Abuse Patient Records regulations: The Federal rules restrict any use of the information to criminally investigate or prosecute any alcohol or drug abuse patient.[facility] CenterIn the event this information is protected by the Federal Confidentiality of Alcohol and Drug Abuse Patient Records regulations: The Federal rules restrict any use of the information to criminally investigate or prosecute any alcohol or drug abuse patient.[facility] CenterIn the event this information is protected by the Federal Confidentiality of Alcohol and Drug Abuse Patient Records regulations: The Federal rules restrict any use of the information to criminally investigate or prosecute any alcohol or drug abuse patient.[facility] CenterIn the event this information is protected by the Federal Confidentiality of Alcohol and Drug Abuse Patient Records regulations: The Federal rules restrict any use of the information to criminally investigate or prosecute any alcohol or drug abuse patient.[facility] CenterIn the event this information is protected by the Federal Confidentiality of Alcohol and Drug Abuse Patient Records regulations: The Federal rules restrict any use of the information to criminally investigate or prosecute any alcohol or drug abuse patient.[facility] CenterIn the event this information is protected by the Federal Confidentiality of Alcohol and Drug Abuse Patient Records regulations: The Federal rules restrict any use of the information to criminally investigate or prosecute any alcohol or drug abuse patient.[facility] CenterIn the event this information is protected by the Federal Confidentiality of Alcohol and Drug Abuse Patient Records regulations: The Federal rules restrict any use of the information to criminally investigate or prosecute any alcohol or drug abuse patient.[facility] CenterIn the event this information is protected by the Federal Confidentiality of Alcohol and Drug Abuse Patient Records regulations: The Federal rules restrict any use of the information to criminally investigate or prosecute any alcohol or drug abuse patient.[facility] CenterIn the event this information is protected by the Federal Confidentiality of Alcohol and Drug Abuse Patient Records regulations: The Federal rules restrict any use of the information to criminally investigate or prosecute any alcohol or drug abuse patient.[facility] CenterIn the event this information is protected by the Federal Confidentiality of Alcohol and Drug Abuse Patient Records regulations: The Federal rules restrict any use of the information to criminally investigate or prosecute any alcohol or drug abuse patient.[facility] CenterIn the event this information is protected by the Federal Confidentiality of Alcohol and Drug Abuse Patient Records regulations: The Federal rules restrict any use of the information to criminally investigate or prosecute any alcohol or drug abuse patient.[facility] CenterIn the event this information is protected by the Federal Confidentiality of Alcohol and Drug Abuse Patient Records regulations: The Federal rules restrict any use of the information to criminally investigate or prosecute any alcohol or drug abuse patient.[facility] CenterIn the event this information is protected by the Federal Confidentiality of Alcohol and Drug Abuse Patient Records regulations: The Federal rules restrict any use of the information to criminally investigate or prosecute any alcohol or drug abuse patient.[facility] CenterIn the event this information is protected by the Federal Confidentiality of Alcohol and Drug Abuse Patient Records regulations: The Federal rules restrict any use of the information to criminally investigate or prosecute any alcohol or drug abuse patient.[facility] CenterIn the event this information is protected by the Federal Confidentiality of Alcohol and Drug Abuse Patient Records regulations: The Federal rules restrict any use of the information to criminally investigate or prosecute any alcohol or drug abuse patient.[facility] CenterIn the event this information is protected by the Federal Confidentiality of Alcohol and Drug Abuse Patient Records regulations: The Federal rules restrict any use of the information to criminally investigate or prosecute any alcohol or drug abuse patient.[facility] CenterIn the event this information is protected by the Federal Confidentiality of Alcohol and Drug Abuse Patient Records regulations: The Federal rules restrict any use of the information to criminally investigate or prosecute any alcohol or drug abuse patient.[facility] CenterIn the event this information is protected by the Federal Confidentiality of Alcohol and Drug Abuse Patient Records regulations: The Federal rules restrict any use of the information to criminally investigate or prosecute any alcohol or drug abuse patient.[facility] CenterIn the event this information is protected by the Federal Confidentiality of Alcohol and Drug Abuse Patient Records regulations: The Federal rules restrict any use of the information to criminally investigate or prosecute any alcohol or drug abuse patient.[facility] CenterIn the event this information is protected by the Federal Confidentiality of Alcohol and Drug Abuse Patient Records regulations: The Federal rules restrict any use of the information to criminally investigate or prosecute any alcohol or drug abuse patient.[facility] CenterIn the event this information is protected by the Federal Confidentiality of Alcohol and Drug Abuse Patient Records regulations: The Federal rules restrict any use of the information to criminally investigate or prosecute any alcohol or drug abuse patient.[facility] CenterIn the event this information is protected by the Federal Confidentiality of Alcohol and Drug Abuse Patient Records regulations: The Federal rules restrict any use of the information to criminally investigate or prosecute any alcohol or drug abuse patient.[facility] CenterIn the event this information is protected by the Federal Confidentiality of Alcohol and Drug Abuse Patient Records regulations: The Federal rules restrict any use of the information to criminally investigate or prosecute any alcohol or drug abuse patient.[facility] CenterIn the event this information is protected by the Federal Confidentiality of Alcohol and Drug Abuse Patient Records regulations: The Federal rules restrict any use of the information to criminally investigate or prosecute any alcohol or drug abuse patient.[facility] CenterIn the event this information is protected by the Federal Confidentiality of Alcohol and Drug Abuse Patient Records regulations: The Federal rules restrict any use of the information to criminally investigate or prosecute any alcohol or drug abuse patient.[facility] CenterIn the event this information is protected by the Federal Confidentiality of Alcohol and Drug Abuse Patient Records regulations: The Federal rules restrict any use of the information to criminally investigate or prosecute any alcohol or drug abuse patient.[facility] CenterIn the event this information is protected by the Federal Confidentiality of Alcohol and Drug Abuse Patient Records regulations: The Federal rules restrict any use of the information to criminally investigate or prosecute any alcohol or drug abuse patient.[facility] CenterIn the event this information is protected by the Federal Confidentiality of Alcohol and Drug Abuse Patient Records regulations: The Federal rules restrict any use of the information to criminally investigate or prosecute any alcohol or drug abuse patient.[facility] CenterIn the event this information is protected by the Federal Confidentiality of Alcohol and Drug Abuse Patient Records regulations: The Federal rules restrict any use of the information to criminally investigate or prosecute any alcohol or drug abuse patient.[facility] CenterIn the event this information is protected by the Federal Confidentiality of Alcohol and Drug Abuse Patient Records regulations: The Federal rules restrict any use of the information to criminally investigate or prosecute any alcohol or drug abuse patient.[facility] CenterIn the event this information is protected by the Federal Confidentiality of Alcohol and Drug Abuse Patient Records regulations: The Federal rules restrict any use of the information to criminally investigate or prosecute any alcohol or drug abuse patient.[facility] CenterIn the event this information is protected by the Federal Confidentiality of Alcohol and Drug Abuse Patient Records regulations: The Federal rules restrict any use of the information to criminally investigate or prosecute any alcohol or drug abuse patient.[facility] CenterIn the event this information is protected by the Federal Confidentiality of Alcohol and Drug Abuse Patient Records regulations: The Federal rules restrict any use of the information to criminally investigate or prosecute any alcohol or drug abuse patient.[facility] CenterIn the event this information is protected by the Federal Confidentiality of Alcohol and Drug Abuse Patient Records regulations: The Federal rules restrict any use of the information to criminally investigate or prosecute any alcohol or drug abuse patient.[facility] CenterIn the event this information is protected by the Federal Confidentiality of Alcohol and Drug Abuse Patient Records regulations: The Federal rules restrict any use of the information to criminally investigate or prosecute any alcohol or drug abuse patient.[facility] CenterIn the event this information is protected by the Federal Confidentiality of Alcohol and Drug Abuse Patient Records regulations: The Federal rules restrict any use of the information to criminally investigate or prosecute any alcohol or drug abuse patient.[facility] CenterIn the event this information is protected by the Federal Confidentiality of Alcohol and Drug Abuse Patient Records regulations: The Federal rules restrict any use of the information to criminally investigate or prosecute any alcohol or drug abuse patient.[facility] CenterIn the event this information is protected by the Federal Confidentiality of Alcohol and Drug Abuse Patient Records regulations: The Federal rules restrict any use of the information to criminally investigate or prosecute any alcohol or drug abuse patient.[facility] CenterIn the event this information is protected by the Federal Confidentiality of Alcohol and Drug Abuse Patient Records regulations: The Federal rules restrict any use of the information to criminally investigate or prosecute any alcohol or drug abuse patient.[facility] CenterIn the event this information is protected by the Federal Confidentiality of Alcohol and Drug Abuse Patient Records regulations: The Federal rules restrict any use of the information to criminally investigate or prosecute any alcohol or drug abuse patient.[facility] CenterIn the event this information is protected by the Federal Confidentiality of Alcohol and Drug Abuse Patient Records regulations: The Federal rules restrict any use of the information to criminally investigate or prosecute any alcohol or drug abuse patient.[facility] CenterIn the event this information is protected by the Federal Confidentiality of Alcohol and Drug Abuse Patient Records regulations: The Federal rules restrict any use of the information to criminally investigate or prosecute any alcohol or drug abuse patient.[facility] CenterIn the event this information is protected by the Federal Confidentiality of Alcohol and Drug Abuse Patient Records regulations: The Federal rules restrict any use of the information to criminally investigate or prosecute any alcohol or drug abuse patient.[facility] Reason for Visit (unrecogniz ed section and content) Reason Onset Date Comments Refill Request 05/29/2021 Specialty Diagnoses / Procedures Referred By Di hardy Referred To Contact MR IMAGING Diagnoses Liver mass R16.0 (ICD-10-CM) - Liver mass Procedures MRI LIVER WO/W IVCON MRI,ABDOMEN,W&WO CONTRS MRI LIVER WO/W IVCON Samson Hogan MD [address] [place] [address] Mr Imaging Referral ID Status Reason Start Date Expiration Date Visits Requested Visits Authorized Authorized Auto-Generat ed Referral 05/12/2021 07/11/2021 1 1 Reason Comments [facility]PP Cardiology/vascular - Treatment Refe rral Reason Comments Orders Reason Comments Allied Health Visit DM Reason Comments Results Reason Comments Patient Question Reason Comments Allied Health Visit DM Reason Comments URI Reason Comments Medication Request Reason Onset Date Comments Refill Request 08/05/2021 Reason Comments Insurance Authorization Reason Comments Appointment Reason Comments Medication Problem Reason Comments Refill Request Reason Onset Date Comments Refill Request 09/17/2021 Reason Comments 6 Month Exam Reason Comments Fax Results once completed Reason Comments Patient Update Reason Comments patient needs copy of BUN faxed Reason Onset Date Comments Refill Request 12/10/2021 Reason Onset Date Comments Refill Request 12/11/2021 Reason Onset Date Comments Refill Request 01/05/2022 Reason Comments Patient Update Orders Consult Reason Onset Date Comments Refill Request 02/02/2022 Reason Onset Date Comments Refill Request 03/03/2022 Reason Comments Appointment Patient called to mao florez we have the right number for virtual visit Reason Comments Lab Orders Reason Comments Refill Request Reason Onset Date Comments Refill Request 04/29/2022 Reason Comments Follow Up Reason Comments Low BS readings Reason Comments Medication Request PAIN Reason Comments low blood sugar readings Reason Onset Date Comments Refill Request 05/27/2022 Reason Onset Date Comments Refill Request 06/25/2022 Refill Request 06/28/2022 Reason Onset Date Comments Refill Request 06/29/2022 Reason Comments Rash Pt reported bilatera l swelling elbow's, rash back, abd x1 wk. Reason Comments Patient Question Medication Request Reason Onset Date Comments Refill Request 08/11/2022 Reason Onset Date Comments Refill Request 08/13/2022 Reason Onset Date Comments Refill Request 09/14/2022 Reason Onset Date Comments Refill Request 10/01/2022 Reason Onset Date Comments Refill Request 10/12/2022 Reason Onset Date Comments Refill Request 11/05/2022 Reason Comments Radiology US Specialty Diagnoses / Procedures Referred By Contac t Referred To Contact US IMAGING Diagnoses Thyroid nodule Procedures US THYROID/PARATHYROID US SOFT TISSUE HEAD & NECK REAL TIME IMGE Jovany Saunders PA-C [address] [place] [id number] [place] [address] Referral ID Status Reason Start Date Expiration Date V isits Requested Visits Authorized [id number] Closed Auto-Generate d Referral 05/19/2022 06/18/2023 [address] Specialty Diagnoses / Procedures Referred By Contac t Referred To Contact CT IMAGING Diagnoses Lung nodules Cigarette smoker History of renal cell cancer Procedures CT CHEST WO IVCON DIAGNOSTIC COMPUTED TOMOGRAPHY THORAX W/O Patti Goss MD [address] [place] [address] [place] [address] Referral ID Status Reason Start Date Expiration Date V isits Requested Visits Authorized [id number] Closed Auto-Generate d Referral 03/16/2022 05/15/2022 1 1 Reason Onset Date Comments Refill Request 12/27/2022 Reason Onset Date Comments Refill Request 01/17/2023 Reason Onset Date Comments Refill Request 01/28/2023 Care Teams (unrecognized sec tion and content) Donor Services Specialist Relationship Specialty Start Date End Date Samson Hogan MD [address] [place] [address] PCP - General Family Practice 11/10/12 [facility] [address] [place] [address] Pharmacist Pharmacy 12/28/18 Donor Services Specialist Relationship Specialty Start Date End Date Samson Hogan MD [address] [place] [address] PCP - General Family Practice 11/10/12 [facility] [address] [place] [address] Pharmacist Pharmacy 12/28/18 Donor Services Specialist Relationship Specialty Start Date End Date Samson Hogan MD [address] [place] [address] PCP - General Family Practice 11/10/12 [facility] [address] [place] [address] Pharmacist Pharmacy 12/28/18 Donor Services Specialist Relationship Specialty Start Date End Date Samson Hogan MD [address] [place] [address] PCP - General Family Practice 11/10/12 [facility] [address] [place] [address] Pharmacist Pharmacy 12/28/18 Donor Services Specialist Relationship Specialty Start Date End Date Samson Hogan MD [address] [place] [address] PCP - General Family Practice 11/10/12 Mat Davidson, [facility] [address] [place] [address] Pharmacist Pharmacy 12/28/18 Donor Services Specialist Relationship Specialty Start Date End Date Perez, Samson J, MD [address] [place] [address] PCP - General Family Practice 11/10/12 Mat Davidson, [facility] [address] [place] [address] Pharmacist Pharmacy 12/28/18 Donor Services Specialist Relationship Specialty Start Date End Date Samson Hogan MD [address] [place] [address] PCP - General Family Practice 11/10/12 Mat Davidson, [facility] [address] [place] [address] Pharmacist Pharmacy 12/28/18 Donor Services Specialist Relationship Specialty Start Date End Date Samson Hogan MD [address] [place] [address] PCP - General Family Practice 11/10/12 Mat Davidson, [facility] [address] [place] [address] Pharmacist Pharmacy 12/28/18 Donor Services Specialist Relationship Specialty Start Date End Date Jovany Rizzo PA-C [address] [place] [address] PCP - General Family Practice 07/10/21 Mat Davidson, [facility] [address] [place] [address] Pharmacist Pharmacy 12/28/18 Donor Services Specialist Relationship Specialty Start Date End Date Jovany Rizzo PA-C [address] [place] [address] PCP - General Family Practice 07/10/21 Mat Davidson, [facility] [address] [place] [address] Pharmacist Pharmacy 12/28/18 Donor Services Specialist Relationship Specialty Start Date End Date Samson Hogan MD [address] [place] [address] PCP - General Family Practice 11/10/12 07/09/21 [facility] [address] [place] [address] Pharmacist Pharmacy 12/28/18 Donor Services Specialist Relationship Specialty Start Date End Date Jovany Rizzo PA-C [address] [place] [address] PCP - General Family Practice 07/10/21 Mat Davidson, [facility] [address] [place] [address] Pharmacist Pharmacy 12/28/18 Donor Services Specialist Relationship Specialty Start Date End Date Jovany Rizzo PA-C [address] [place] [address] PCP - General Family Practice 07/10/21 Mat Davidson, [facility] [address] [place] [address] Pharmacist Pharmacy 12/28/18 Donor Services Specialist Relationship Specialty Start Date End Date Jovany Rizzo PA-C [address] [place] [address] PCP - General Family Practice 07/10/21 Mat Davidson, [facility] [address] [place] [address] Pharmacist Pharmacy 12/28/18 Donor Services Specialist Relationship Specialty Start Date End Date Jovany Rizzo PA-C [address] [place] [address] PCP - General Family Practice 07/10/21 Mat Davidson, [facility] [address] [place] [address] Pharmacist Pharmacy 12/28/18 Donor Services Specialist Relationship Specialty Start Date End Date Jovany Rizzo PA-C [address] [place] [address] PCP - General Family Practice 07/10/21 [facility] [address] [place] [address] Pharmacist Pharmacy 12/28/18 Donor Services Specialist Relationship Specialty Start Date End Date Jovany Rizzo PA-C [address] [place] [address] PCP - General Family Practice 07/10/21 [facility] [address] [place] [address] Pharmacist Pharmacy 12/28/18 Donor Services Specialist Relationship Specialty Start Date End Date Jovany Rizzo PA-C [address] [place] [address] PCP - General Family Practice 07/10/21 Mat Davidson, [facility] [address] [place] [address] Pharmacist Pharmacy 12/28/18 Donor Services Specialist Relationship Specialty Start Date End Date Jovany Rizzo PA-C [address] [place] [address] PCP - General Family Practice 07/10/21 Mat Davidson, [facility] [address] [place] [address] Pharmacist Pharmacy 12/28/18 Donor Services Specialist Relationship Specialty Start Date End Date Jovany Rizzo PA-C [address] [place] [address] PCP - General Family Medicine 07/10/21 [facility], [facility] [address] [place] [address] Pharmacist Pharmacy 12/28/18 Donor Services Specialist Relationship Specialty Start Date End Date Jovany Rizzo PA-C [address] [place] [address] PCP - General Family Medicine 07/10/21 Mat Davidson, [facility] [address] [place] [address] Pharmacist Pharmacy 12/28/18 Donor Services Specialist Relationship Specialty Start Date End Date Jovany Rizzo PA-C [address] [address] PCP - General Family Medicine 07/10/21 [facility] [place], [facility] [address] [place] [address] Pharmacist Pharmacy 12/28/18 Donor Services Specialist Relationship Specialty Start Date End Date Jovany Rizzo PA-C [address] [place] [address] PCP - General Family Medicine 07/10/21 [facility] [place], [facility] [address] [place] [address] Pharmacist Pharmacy 12/28/18 Donor Services Specialist Relationship Specialty Start Date End Date Jovany Rizzo PA-C [address] [place] [address] PCP - General Family Medicine 07/10/21 Mat Davidson, [facility] [address] [place] [address] Pharmacist Pharmacy 12/28/18 Donor Services Specialist Relationship Specialty Start Date End Date Jovany Rizzo PA-C [address] [place] [address] PCP - General Family Medicine 07/10/21 [facility] [place], [facility] [address] [place] [address] Pharmacist Pharmacy 12/28/18 Donor Services Specialist Relationship Specialty Start Date End Date Jovany Rizzo PA-C [address] [place] [address] PCP - General Family Medicine 07/10/21 Mat Davidson, [facility] [address] [place] [address] Pharmacist Pharmacy 12/28/18 Donor Services Specialist Relationship Specialty Start Date End Date Jovany Rizzo PA-C [address] [place] [address] PCP - General Family Medicine 07/10/21 [facility], [facility] [address] [place] [address] Pharmacist Pharmacy 12/28/18 Donor Services Specialist Relationship Specialty Start Date End Date Jovany Rizzo PA-C [address] [place] [address] PCP - General Family Medicine 07/10/21 Mat Davidson, [facility] [address] [place] [address] Pharmacist Pharmacy 12/28/18 Donor Services Specialist Relationship Specialty Start Date End Date Jovany Rizzo PA-C [address] [place] [address] PCP - General Family Medicine 07/10/21 Mat Davidson, [facility] [address] [place] [address] Pharmacist Pharmacy 12/28/18 Donor Services Specialist Relationship Specialty Start Date End Date Jovany Rizzo PA-C [address] [place] [address] PCP - General Family Medicine 07/10/21 Mat Davidson, [facility] [address] [place] [address] Pharmacist Pharmacy 12/28/18 Donor Services Specialist Relationship Specialty Start Date End Date Jovany Rizzo PA-C [address] [place] [address] PCP - General Family Medicine 07/10/21 Mat Davidson, [facility] [address] [place] [address] Pharmacist Pharmacy 12/28/18 Donor Services Specialist Relationship Specialty Start Date End Date Jovany Rizzo PA-C [address] [place] [address] PCP - General Family Medicine 07/10/21 Mat Davidson, [facility] [address] [place] [address] Pharmacist Pharmacy 12/28/18 Donor Services Specialist Relationship Specialty Start Date End Date Jovany Rizzo PA-C [address] [place] [address] PCP - General Family Medicine 07/10/21 Mat Davidson, [facility] [address] [place] [address] Pharmacist Pharmacy 12/28/18 Donor Services Specialist Relationship Specialty Start Date End Date Jovany Rizzo PA-C [address] [place] [address] PCP - General Family Medicine 07/10/21 Mat Davidson, [facility] [address] [place] [address] Pharmacist Pharmacy 12/28/18 Donor Services Specialist Relationship Specialty Start Date End Date Jovany Rizzo PA-C [address] [place] [address] PCP - General Family Medicine 07/10/21 [facility] [address] [place] [address] Pharmacist Pharmacy 12/28/18 Donor Services Specialist Relationship Specialty Start Date End Date Jovany Rizzo PA-C [address] [place] [address] PCP - General Family Medicine 07/10/21 [facility] [address] [place] [address] Pharmacist Pharmacy 12/28/18 Donor Services Specialist Relationship Specialty Start Date End Date Jovany iRzzo PA-C [address] [place] [address] PCP - General Family Medicine 07/10/21 [facility] [address] [place] [address] Pharmacist Pharmacy 12/28/18 Donor Services Specialist Relationship Specialty Start Date End Date Jovany Rizzo PA-C [address] [place] [address] PCP - General Family Medicine 07/10/21 [facility] [address] [place] [address] Pharmacist Pharmacy 12/28/18 Donor Services Specialist Relationship Specialty Start Date End Date Jovany Rizzo PA-C [address] [place] [address] PCP - General Family Medicine 07/10/21 [facility], [facility] [address] [place] [address] Pharmacist Pharmacy 12/28/18 Donor Services Specialist Relationship Specialty Start Date End Date Jovany Rizzo PA-C [address] [place] [address] PCP - General Family Medicine 07/10/21 [facility] [address] [place] [address] Pharmacist Pharmacy 12/28/18 Donor Services Specialist Relationship Specialty Start Date End Date Jovany Rizzo PA-C [address] [place] [address] PCP - General Family Medicine 07/10/21 [facility] [address] [place] [address] Pharmacist Pharmacy 12/28/18 Donor Services Specialist Relationship Specialty Start Date End Date Jovany Rizzo PA-C [address] [place] [address] PCP - General Family Medicine 07/10/21 [facility] [address] [place] [address] Pharmacist Pharmacy 12/28/18 Donor Services Specialist Relationship Specialty Start Date End Date Jovany Rizzo PA-C [address] [place] [address] PCP - General Family Medicine 07/10/21 [facility] [address] [place] [address] Pharmacist Pharmacy 12/28/18 Donor Services Specialist Relationship Specialty Start Date End Date Jovany Rizzo PA-C [address] [place] [address] PCP - General Family Medicine 07/10/21 Mat Davidson, [facility] [address] [place] [address] Pharmacist Pharmacy 12/28/18 Donor Services Specialist Relationship Specialty Start Date End Date Jovany Rizzo PA-C [address] [place] [address] PCP - General Family Medicine 07/10/21 Mat Davidson, [facility] [address] [place] [address] Pharmacist Pharmacy 12/28/18 Donor Services Specialist Relationship Specialty Start Date End Date Jovany Rizzo PA-C [address] [place] [address] PCP - General Family Medicine 07/10/21 Mat Davidson, [facility] [address] [place] [address] Pharmacist Pharmacy 12/28/18 Donor Services Specialist Relationship Specialty Start Date End Date Jovany Rizzo PA-C [address] [place] [address] PCP - General Family Medicine 07/10/21 Mat Davidson, [facility] [address] [place] [address] Pharmacist Pharmacy 12/28/18 Donor Services Specialist Relationship Specialty Start Date End Date Jovany Rizzo PA-C [address] [place] [address] PCP - General Family Medicine 07/10/21 Mat Davidson, [facility] [address] [place] [address] Pharmacist Pharmacy 12/28/18 Donor Services Specialist Relationship Specialty Start Date End Date Jovany Rizzo PA-C [address] [place] [address] PCP - General Family Medicine 07/10/21 Mat Davidson, [facility] [address] [place] [address] Pharmacist Pharmacy 12/28/18 Donor Services Specialist Relationship Specialty Start Date End Date Jovany Rizzo PA-C [address] [place] [address] PCP - General Family Medicine 07/10/21 Mat Davidson, [facility] Pharmacist Pharmacy 12/28/18 Donor Services Specialist Relationship Specialty Start Date End Date Jovany Rizzo PA-C [address] [place] [address] PCP - General Family Medicine 07/10/21 Mat Davidson, [facility] Pharmacist Pharmacy 12/28/18 Donor Services Specialist Relationship Specialty Start Date End Date Jovany Rizzo PA-C [address] [place] [address] PCP - General Family Medicine 07/10/21 Mat Davidson, [facility] Pharmacist Pharmacy 12/28/18 Donor Services Specialist Relationship Specialty Start Date End Date Jovany Rizzo PA-C [address] [place] [address] PCP - General Family Medicine 07/10/21 Mat Davidson, [facility] Pharmacist Pharmacy 12/28/18 FOR RECORDS PERTAINING TO PATIENTS WHO ARE OR HAVE BEEN ENROLLED IN A CHEMICAL DEPENDENCY/SUBSTANCEABUSE PROGRAM, SOME INFORMATION MAY BE OMITTED. This clinical summary was aggregated from multiple sources. Caution should be exercised in using it in the provision of clinical care. This summary normalizes information from multiple sources, and as a consequence, information in this document may materially change the coding, format and clinical context of patient data. In addition, data may be omitted in some cases. CLINICAL DECISIONS SHOULD BE BASED ON THE PRIMARY CLINICAL RECORDS. [employer] provides no warranty or guarantee of the accuracy or completeness of information in this document.
--- NOTE | 2023-02-25 18:13 | PCM.HP.STD ---
HPI - General General Date of Admission: 02/25/23 Date of Service: 02/25/23 Chief Complaint: Dyspnea, cough, increased sputum, subjective fever/chills. HPI Narrative The patient is a 57 y/o F w/ PMHx: Morbid Obesity, Depression and Anxiety/Panic disorder, HTN, HLD, KELLIE, Diabetes mellitus type II with chronic neuropathy, COPD w/ Chronic Hypoxic Respiratory Failure (2L NC), Tobacco use, History of renal artery stenosis s/p PCI who presents to the [facility] ED on 02/25/2023 with history of onset progressively worsening fatigue, malaise, dyspnea and cough normally on 2 L nasal cannula with inhalers at home but no respiratory treatments on chronic Lasix 40 daily which is unchanged with no recent weight gain or marked orthopnea with reported productive sputum with no associated chest discomfort with subjective fevers and chills but no specific temperature check as well as congestion and rhinorrhea with sick contacts including her and her son with similar symptoms prompting eventual ED evaluation. Workup in the ED included T97.9, heart rate 90, BP 129/83, respiratory rate 24, initially 91% on 4 L nasal cannula with most recent vital signs heart rate 87, BP 171/62, respiratory rate 25, 89% on 5 L nasal cannula, CBC with WBC 16.2, hgb 13.5, platelet 267 with left shift, BMP with 38, BUN/creatinine 30/0.70, glucose 261, lactic acid 1.6, BNP 55.2, chest x-ray with mild interstitial infiltrates/possibly CHF, blood culture x 2 pending per ED, rapid SARS COVID/influenza/RSV PCR negative. In the ED patient ministered Solu-Medrol 125 mg IV x 1, DuoNeb and albuterol therapies, Motrin 400 mg p.o. x 1 as well as Rocephin 1 g IV x 1. [facility] Medical History (Updated 02/25/23 @ 19:[address] Chelsi Warner MD) Anxiety and depression Chronic respiratory failure Degenerative disc disease GERD (gastroesophageal reflux disease) HTN (hypertension) IBS (irritable bowel syndrome) Microalbuminuria Morbid obesity Neuropathy Panic disorder Sleep apnea Tobacco dependence syndrome Type 2 diabetes mellitus Urinary calculus Home Medications atenolol 50 mg tablet 50 mg PO DAILY BP 03/04/15 [History Last Taken 04/28/20 08:00] furosemide 40 mg tablet 40 mg PO DAILY water retention 03/04/15 [History Last Taken 04/28/20 08:00] gabapentin 300 mg capsule 300 mg PO TID nerve pain 03/04/15 [History Last Taken 04/28/20 17:00] lisinopril 20 mg-hydrochlorothiazide 12.5 mg tablet 2 tab PO DAILY BP 03/04/15 [History Last Taken 04/28/20 08:00] venlafaxine 150 mg capsule,extended release 24 hr 150 mg PO DAILY mood 03/04/15 [History Last Taken 04/28/20 08:00] albuterol sulfate 90 mcg/actuation breath activated powder inhaler 2 inh inhalation Q4H PRN Wheezing 12/26/18 [History Last Taken Unknown] aspirin 81 mg tablet,delayed release (Adult Low Dose Aspirin) 81 mg PO DAILY heart health 12/26/18 [History Last Taken 04/28/20 08:00] atorvastatin 40 mg tablet 40 mg PO QHS cholesterol 12/26/18 [History Last Taken 04/27/20 22:00] dulaglutide 1.5 mg/0.5 mL subcutaneous pen injector (Trulicity) 1.5 mg subcut TH diabetes 12/26/18 [History Last Taken 04/24/20 12:00] ibuprofen 800 mg tablet 800 mg PO Q6H PRN Pain Or Fever 12/26/18 [History Last Taken Unknown] potassium chloride 10 mEq tablet,extended release (K-Tab) 20 meq PO DAILY supplement 12/26/18 [History Last Taken 04/28/20 08:00] insulin degludec 100 unit/mL (3 mL) subcutaneous pen 83 unit SQ BID diabetes 09/01/19 [History Last Taken 04/28/20 17:00] buspirone 5 mg tablet 5 mg PO TID mood 04/28/20 [History Last Taken 04/28/20 17:00] insulin lispro 100 unit/mL subcutaneous pen 40 unit SQ LUNCH diabetes 04/28/20 [History Last Taken 04/28/20 12:00] insulin lispro 100 unit/mL subcutaneous pen 64 unit SQ BREAKFAST diabetes 04/28/20 [History Last Taken 04/28/20 08:00] insulin lispro 100 unit/mL subcutaneous pen 94 unit subcut QHS diabetes 04/28/20 [History Last Taken 04/28/20 17:00] sulfamethoxazole 800 mg-trimethoprim 160 mg tablet 1 tablet PO BID #10 TABLETS 04/30/20 [Rx Last Taken Unknown] insulin lispro 100 unit/mL subcutaneous half-unit pen (Humalog Zafar KwikPen (U-100)) 3 unit subcut DAILY 02/25/23 [History Last Taken Unknown] insulin lispro 100 unit/mL subcutaneous half-unit pen (Humalog Zafar KwikPen (U-100)) 63 unit subcut DAILY 02/25/23 [History Last Taken Unknown] insulin lispro 100 unit/mL subcutaneous half-unit pen (Humalog Zafar KwikPen (U-100)) 93 unit subcut QHS 02/25/23 [History Last Taken Unknown] metformin 500 mg tablet,extended release 24 hr 1,000 mg PO BID 02/25/23 [History Last Taken Unknown] omeprazole 20 mg capsule,delayed release 20 mg PO DAILY 02/25/23 [History Last Taken Unknown] venlafaxine 75 mg capsule,extended release 24 hr 75 mg PO DAILY 02/25/23 [History Last Taken Unknown] Allergy/AdvReac Type Severity Reaction Status Date / Time tetanus and diphtheria Allergy Unknown swollen Verified 02/25/23 15:23 toxoids glands in neck that didn't decrease ketorolac tromethamine Allergy vivid Verified 02/25/23 15:23 [From Toradol] dreams morphine Allergy Itching Verified 02/25/23 15:23 Family History Aunt Diabetes Father Heart disease Sister Heart disease Grandfather Colon cancer Unknown Breast cancer Surgical History H/O dilation and curettage H/O lithotripsy History of renal stent Hx of cholecystectomy Hx of partial nephrectomy repair of r arm fx Social History (Updated 02/25/23 @ 19:[address] Chelsi Warner MD) household members: spouse Smoking Status: Current some day smoker tobacco type: cigarettes Smoking packs per day: 1 Smoking cigarettes per day: 20.0 quit status: considering quitting alcohol intake: never substance use type: does not use ROS ROS Narrative Admission Review of Systems: CONSTITUTIONAL: No weight loss, + subjective fever, chills, weakness or fatigue. HEENT: + Congestion, rhinorrhea, sneezing. Eyes: No visual loss, blurred vision, double vision or yellow sclerae. Ears, Nose, Throat: No hearing loss, sore throat. SKIN: No rash or itching, lesions, wounds. CARDIOVASCULAR: + Chronic Peripheral edema. No chest pain, chest pressure or chest discomfort, palpitations, orthopnea, syncopal events. RESPIRATORY: + Shortness of breath, cough with productive sputum, wheezing. No hemoptysis. GASTROINTESTINAL: No anorexia, nausea, vomiting or diarrhea, abdominal pain, melena, BRBPR. GENITOURINARY: No dysuria, frequency, urgency or retention. NEUROLOGICAL: No headache, dizziness, syncope, paralysis, ataxia, numbness or tingling in the extremities, focal weakness, change in bowel or bladder control, seizure. MUSCULOSKELETAL: + muscle, back pain, joint pain or stiffness. HEMATOLOGIC: No anemia, bleeding or bruising. LYMPHATICS: No enlarged nodes. No history of splenectomy. PSYCHIATRIC: + History of anxiety and depression. ENDOCRINOLOGIC: No reports of sweating, cold or heat intolerance. No polyuria or polydipsia. ALLERGIES: No history of asthma, hives, eczema or rhinitis. Vital Signs Vital Signs Vital Signs: 02/25/23 15:19 02/25/23 15:28 02/25/23 15:28 Temperature 97.9 F 97.9 F Temperature Source Temporal Temporal Pulse Rate 90 90 90 Respiratory Rate 24 H 22 H 18 Respiratory Effort Respiratory Pattern Blood Pressure 129/83 H 129/83 H 129/83 H Blood Pressure Mean 98 98 98 Pulse Ox 91 93 91 Oxygen Delivery Method Nasal Cannula Nasal Cannula Nasal Cannula Oxygen Flow Rate (L/min) 4 4 02/25/23 15:32 02/25/23 15:35 02/25/23 15:51 Temperature Temperature Source Pulse Rate 89 Respiratory Rate 20 H Respiratory Effort Short of Breath Labored Respiratory Pattern Tachypnea Blood Pressure Blood Pressure Mean Pulse Ox 90 Oxygen Delivery Method Nasal Cannula Nasal Cannula Oxygen Flow Rate (L/min) 4 4 02/25/23 17:16 02/25/23 18:00 02/25/23 18:03 Temperature Temperature Source Pulse Rate 88 87 Respiratory Rate 24 H 25 H Respiratory Effort Respiratory Pattern Blood Pressure 143/66 H Blood Pressure Mean 91 Pulse Ox 92 89 Oxygen Delivery Method Nasal Cannula Nasal Cannula Oxygen Flow Rate (L/min) 5 5 02/25/23 17:48 Temperature Temperature Source Pulse Rate 84 Respiratory Rate 24 H Respiratory Effort Respiratory Pattern Blood Pressure 171/62 H Blood Pressure Mean 98 Pulse Ox 90 Oxygen Delivery Method Oxygen Flow Rate (L/min) Weight Weight: 333 lb 5.423 oz Body Mass Index (BMI) 55.4 Physical Exam Narrative Physical Examination: General: Awake, alert, oriented x 3 and cooperative, seated upright in the ED bedside chair, fatigued, still mildly increased respiratory rate but no overt distress, notes feeling mildly improved. Skin: Normal color, normal turgor, no icterus, no cyanosis except for occasional staged ecchymoses, intertrigo. HEENT: AT/NC, EOMI, PERRLA, dry MM, difficult to discern carotid bruits and JVD given thickened neck, evident mouth breather. Lungs: CTA bilaterally, moderate effort, mild decrease BL bases, no rales, ronchi or wheezing. Heart: Regular rate and rhythm; no gallop, rub audible. Abdomen: Soft, morbidly obese, no tenderness palpation, distant BS, difficult to discern distention and HSM given habitus. Extremities: No cyanosis, no clubbing, significant bilateral lower extremity chronic peripheral lymphedema unchanged per her report Neurological: Patient awake, alert, oriented as noted, cognitive function intact; pupils equally reactive to light and accommodation, cranial nerves grossly normal, moving all 4 extremities, no focal deficits, strength severely globally decreased secondary to acute presentation and underlying comorbidities. Psychiatric: Affect appears fatigued, still appears dyspneic with mildly increased respiratory rate and some accessory muscle usage but she reports feeling significantly improved, no acute evidence of depressive or anxiety feelings but does have underlying history. Results Lab / Micro Data 02/25/23 15:35 02/25/23 15:35 Labs: Laboratory Results - last 24 hr 02/25/23 15:35: WBC 16.2 H, RBC 5.13, Hgb 13.5, Hct 45.6, MCV 88.9, MCH 26.3 L, MCHC 29.6 L, RDW Std Deviation 44.9 H, RDW Coeff of Ramy 13.7, Plt Count 267, MPV 9.9, Immature Gran % (Auto) 0.600, Neut % (Auto) 79.4 H, Lymph % (Auto) 11.1 L, Mccormick % (Auto) 7.2, Eos % (Auto) 1.1, Baso % (Auto) 0.6, Absolute Neuts (auto) 12.9 H, Absolute Lymphs (auto) 1.79, Nucleated RBC % 0, Sodium 140, Potassium 3.9, Chloride 98, Carbon Dioxide 38.0 H, Anion Gap 4 L, BUN 30 H, Creatinine 0.70, Estim Creat Clear Calc 134.13, Est GFR (MDRD) Af Amer 110, Est GFR (MDRD) Non-Af 91, BUN/Creatinine Ratio 42.6 H, Glucose 261 H, Lactic Acid 1.6, Calcium 8.6, B-Natriuretic Peptide 55.2 Micro: Microbiology 02/25/23 15:36 Mucosa - Nose SARS-CoV-2, Influenza & RSV (PCR) - Final Imagaing Radiology Impression Chest X-Ray 02/25/23 15:41 IMPRESSION: Mild CHF or interstitial infiltrates Electronically Signed: Dakota Montague MD at 16:51 EST , Assessment & Plan Assessment/Plan (1) COPD with acute exacerbation: PLAN: Plan The patient is a 57 y/o F w/ PMHx: Morbid Obesity, Depression and Anxiety/Panic disorder, HTN, HLD, KELLIE, Diabetes mellitus type II with chronic neuropathy, COPD w/ Chronic Hypoxic Respiratory Failure (2L NC), Tobacco use, History of renal artery stenosis s/p PCI who presents to the [facility] ED on 02/25/2023 with history of onset progressively worsening fatigue, malaise, dyspnea and cough normally on 2 L nasal cannula with inhalers at home but no respiratory treatments on chronic Lasix 40 daily which is unchanged with no recent weight gain or marked orthopnea with reported productive sputum with no associated chest discomfort with subjective fevers and chills but no specific temperature check prompting eventual ED evaluation. #1. Acute Hypoxia on Chronic Hypoxic Respiratory Failure secondary to Acute on Chronic COPD with concerning bilateral infiltrates with Suspected Acute viral syndrome with questionable Superimposed bilateral bacterial pneumonia: Will admit to [facility], maintain on oxygen with wean as tolerated to home oxygen supplementation, continue ATC duonebs, PRN albuterol, IV methylprednisolone, HOB, IS parameters, will obtain sputum Cx, urine antigens, respiratory viral panel, procalcitonin, given leukocytosis with left shift will initiate on antibiotic therapy with IV Rocephin and azithromycin with de-escalation pending further evaluation. Blood culture x 2 pending per ED. #2. Hypertension: Continue home regimen including lisinopril, atenolol, Lasix, PRN hydralazine. #3. Hyperlipidemia: We will continue patient on statin therapy. #4. Diabetes mellitus type II with chronic neuropathy: Hold oral home regimen, continue home insulin regimen, ADA diet, accu checks w/ ISS, continue patient home chronic gabapentin regimen. #5. Anxiety and depression: We will continue patient home buspirone as well as venlafaxine home regimen. #6. Morbid Obesity: Weight loss and lifestyle changes encouraged. #7. Tobacco Abuse: Encouraged cessation, inpatient consultation per RT, NR if desired. #8. KELLIE: Given presentation will maintain on BIPAP q HS. #9. DVT prophylaxis: Lovenox. #10. CODE status: Patient HCPOA and living will are not in place but she notes that it was necessary she would want her daughter and her to be her decision makers. Discussed CODE status at length including difference between FULL code, DNR-CCA and DNR-CC status. Following discussions about the differences in these status, requested Full Code status. Advanced Care Planning Face to Face Time: 16 minutes. Charges/Coding Visit Charges Inpatient E&M: 08980 Init Hosp L3 Procedures Hospitalists Procedures: 95396 Advncd Care Plan 30 Min
[2023-02-25] MEDS: Ceftriaxone 1 GM/50 ML BAG IV (18:27)
--- OUTSIDE RECORDS SUMMARY | 2023-02-25 19:07 | XMS RPT_ITS | CCD ---
Author Name Unknown Address [address] [place] [address] Organization [facility] Care Team Providers Care Nail Professional Name Role Phone Samson Hogan MD Primary Care Provider [facility] Unavailable Jovany Rizzo PA-C Primary Care Provider Samson Hogan MD Primary Care Provider [facility] Unavailable Jovany Rizzo PA-C Primary Care Provider [facility] Unavailable RizzoJovany sheldon PA-C Primary Care Provider [facility] Unavailable Jovany Rizzo PA-C Primary [...] Unavailable RIZZO, M SALUD Primary Care Unavailable [facility] Unavailable Allergies Allergy Classification Reported Allergen(s) Allergy Type Date of Onset Reaction(s) Facility (20 sources) Ketorolac; Translations: [KETOROLAC TROMETHAMINE] Drug Allergy 11-24-2007 [facility] Work Phone: (20 sources) Morphine; Translations: [MORPHINE] Drug Allergy 10-14-2010 Itching [facility] (20 sources) Tetanus And Diphtheria Toxoids, Adsorbed, Adult; Translations: [TETANUS AND DIPHTHERIA TOXOIDS, ADSORBED, ADULT] Drug Allergy 11-10-2012 Other: See Comments [facility] Work Phone: (18 sources) empagliflozin; Translations: [EMPAGLIFLOZIN] Drug Allergy 07-23-2022 Itching [facility] Medications Current Medications Medication Drug [...] 05-03-2007 05-03-2007 Episodic Other aftercare (1 source) care home (current) use of insulin; Translations: [Type 2 [...] 144.7 kg NA Rizzo PA-C Work Phone: [facility] 11-26-2022 09:38-0400 Diastolic blood pressure 74 mm[Hg] NA Rizzo PA-C Work Phone: [facility] 11-26-2022 09:38-0400 Heart rate 71 /min NA Rizzo PA-C Work Phone: [facility] 11-26-2022 09:38-0400 Respiratory rate 16 /min NA Rizzo PA-C Work Phone: [facility] 11-26-2022 09:38-0400 SaO2% (BldA) [Mass fraction] 92 % NA Rizzo PA-C Work Phone: [facility] 11-26-2022 09:38-0400 Systolic blood pressure 130 mm[Hg] NA Rizzo PA-C Work Phone: [facility] 07-23-2022 09:30-0400 Body temperature 97.9 [degF] Maryann Benjamin PROCUREMENT REPRESENTATIVE.CNC MILL PROGRAMMER Work Phone: [facility] 07-23-2022 09:30-0400 Diastolic blood pressure 78 mm[Hg] Maryann Benjamin PROCUREMENT REPRESENTATIVE.CNC MILL PROGRAMMER Work Phone: [facility] 07-23-2022 09:30-0400 Heart rate 80 /min Maryann Benjamin PROCUREMENT REPRESENTATIVE.CNC MILL PROGRAMMER Work Phone: [facility] 07-23-2022 09:30-0400 Respiratory rate 18 /min Maryann Benjamin PROCUREMENT REPRESENTATIVE.CNC MILL PROGRAMMER Work Phone: [facility] 07-23-2022 09:30-0400 SaO2% (BldA) [Mass fraction] 98 % Maryann Benjamin PROCUREMENT REPRESENTATIVE.CNC MILL PROGRAMMER Work Phone: [facility] 07-23-2022 09:30-0400 Systolic blood pressure 132 mm[Hg] Maryann Benjamin PROCUREMENT REPRESENTATIVE.CNC MILL PROGRAMMER Work Phone: [facility] Encounters Encounter Date Encounter Type Care Provider Facility Start: 01-28-2023 Refpaul sheldon PA-C Work Phone: [facility] Arlene Procedures Date Procedure Procedure Detail Performing Clinician Start: 11-22-2022 Us soft tissue head & neck real time imge galina Rizzo PA-C Work Phone: Start: 05-13-2022 Ct thorax w/o contra st material Patti Gallegos MD Work Phone: Start: 03-31-2017 Mammography Leeroy bañuelos MD Work Phone: Plan of Treatment Date Care Activity Detail Author Start: 11-27-2023 Annual PCP Team Product Merchandiser salomon Disease Visit Annual PCP Team Chronic Disease Visit [facility] Start: 11-27-2023 Hepatitis B Vaccine (1 of 3 - 3-dose series) Hepatitis B Vaccine (1 of 3 - 3-dose series) [facility] Immunizations Immunization Date Immunization Notes Care Provider Fa cili 06-16-2021 COVID-19 vaccine, ag e 12+ yr (Zentric-CymoGen Dx - [facility]) Samson Hogan MD Work Phone: [facility] 04-29-2020 influenza, seasonal, injectable, preservative free Leeroy Jacobs MD Work Phone: [facility] Work Phone: 04-29-2020 influenza virus vacc ine, unspecified formulation MARIIA Rizzo PA-C Work Phone: [facility] 12-27-2018 influenza, injectabl e, quadrivalent, contains preservative Leeroy Jacobs MD Work Phone: [facility] 04-10-2018 influenza, injectabl e, quadrivalent, contains preservative Leeroy Jacobs MD Work Phone: [facility] 01-17-2017 influenza, injectabl e, quadrivalent, contains preservative Leeroy Jacobs MD Work Phone: [facility] 02-04-2016 influenza, injectabl e, quadrivalent, contains preservative Leeroy Jacobs MD Work Phone: [facility] 02-04-2016 pneumococcal polysaccharide vaccine, 23 valent Leeroy Jacobs MD Work Phone: [facility] 12-14-2014 influenza, injectabl e, quadrivalent, contains preservative Leeroy Jacobs MD Work Phone: [facility] 12-14-2014 influenza, seasonal, injectable Samson Hogan MD Work Phone: [facility] 12-10-2013 influenza, seasonal, injectable Leeroy Jacobs MD Work Phone: [facility] 11-10-2012 influenza virus vacc ine, unspecified formulation Leeroy Jacobs MD Work Phone: [facility] Payers Date Payer Category Payer Medicaid [id number] 2017 Medicaid [employer] [facility] MED[facility] [id number] 2017-Present [phone] [address] [place] [address] Medicaid [id number] 2017 Medicaid [id number] 2017 Medicaid [id number] Social History Date Type Detail Facility Start: 12-06-1979 End: 03-11-2022 Tobacco smoking status NEIS Smokes tobacco daily [facility] Start: 12-06-1979 History of tobacco use Cigarette Smo ker [facility] Start: 01-19-2021 End: 11-26-2022 Alcohol intake Current non-drinker of alcohol (finding) [facility] Start: 11-15-2019 End: 07-10-2021 History SDOH Alcohol Frequency 1 [facility] Start: 11-15-2019 End: 07-10-2021 History SDOH Alcohol Std Drinks 98 [facility] Start: 08-01-2019 History SDOH Social Connections Phone 4 [facility] Start: 08-01-2019 End: 07-10-2021 History SDOH Social Connections Get Together 2 [facility] Start: 08-01-2019 End: 05-21-2022 History SDOH Social Connections Living 3 [facility] Start: 08-01-2019 End: 07-10-2021 History SDOH Physical Activity DPW 5 [facility] Start: 08-01-2019 Education 8 [facility] Start: 11-15-2019 Tobacco Comment 11/15/2019 10- 15 cigs/day. TO [facility] Start: 1965 Sex Assigned At Not on file C [facility] Start: 05-08-2021 End: 05-18-2021 Exposure to SARS-CoV-2 (event) Unable to assess [facility] Work Phone: Start: 04-20-2021 End: 07-10-2021 Exposure to SARS-CoV-2 (event) Not sure [facility] Start: 07-10-2021 History SDOH Physica l Activity DPW 0 [facility] Start: 07-16-2021 Tobacco Comment A pack or les s per day, depending on the day, 07/16/2021, TO [facility] Start: 07-16-2021 End: 08-11-2022 Cigarettes smoked current (pack per day) - Reported 2 [facility] Start: 07-16-2021 End: 03-11-2022 Tobacco use and exposure Smokeless tobacco non-user [facility] Work Phone: Start: 03-11-2022 Tobacco Comment [facility] Start: 05-21-2022 End: 08-11-2022 Social connection and isolation panel [facility] In a typical week, h ow many times do you talk on the telephone with family, friends, or neighbors? Patient refused [facility] Are you now , , , , never or living with a partner? Refused [facility] (I/We) worried juan miguel er (my/our) food would run out before (I/we) got money to buy more. DK or Refused [facility] Do you belong to any clubs or organizations such as christian groups, unions, fraternal or athletic groups, or school groups? No [facility] Are you now , , , , never or living with a partner? [facility] How often to you hav e a drink containing alcohol? Never [facility] How hard is it for y ou to pay for the very basics like food, housing, medical care, and heating Somewhat hard [facility] Do you feel stress - tense, restless, nervous, or anxious, or unable to sleep at night because your mind is troubled all the time - these days [OSQ] Only a little [facility] (I/We) worried wheth er (my/our) food would run out before (I/we) got money to buy more. Never true [facility] In the past 12 month s, was there a time when you were not able to pay the mortgage or rent on time? Yes [facility] Medical Equipment Procedure Code Equipment Code Equipment Origin al Text Equipment Identifier Dates Stent Uret Inlay 7f X 28cm - [id number] Start: 08-26-2009 Clinical Notes 09-18-2009 to [...] Dhara Naylor RN. documented in this encounter [facility] 01-17-2023 Miscellaneous Notes Patient calling to say she needs new script for Insulin. [facility] was out of medication and the script was transferred to [facility]. [facility] now has the medication in stock but [...] Marcy Pandya RN. documented in this encounter [facility] 12-27-2022 Miscellaneous Notes Rosa Maria Ruiz Obduliajoe is calling Jovany Rizzo PA-C today requesting Insulin Dagmar, Disposable, (ULTICARE PEN NEEDLE) 29 gauge x 1/2. Refill Request Patient has been identified by name and birthdate. Duration of symptoms: N/A Person calling: self Call patient at: on cell [phone] (home) [phone] (cell) Was an appointment scheduled: No Closing statement: Results or non-symptom based questions: Thank you for calling [facility], your call will be returned within the next business day. Melissa Clements documented in this encounter [facility] 11-27-2022 Miscellaneous Notes Discussed at OV. Thyroid nodule with radiologist recommend for FNA Telephone on 11/27/22 CONSULT TO GENERAL SURGERY Gigi Saini PA-C documented in this encounter [facility] 11-26-2022 Note HNO ID: [id number] Author: Jovany Rizzo PA-C Service: ? Author Type: Physician Truss Designer Type: Progress Notes Filed: 11/27/2022 10:47 AM [...] 11 cm with 20-minute ramp and humidification Carton Filling Machine Operator: Has established with Dr. Gallegos. Interval history: [...] daily with meals (more content not included)... [facility] 11-26-2022 History of Present illness Narrative 56 [...] <2.54 0.81 1.03 Pvd (peripheral vascular disease) ([facility]) Current medications: ASA 81 mg daily 01/15/2022 [...] 11 cm with 20-minute ramp and humidification Carton Filling Machine Operator: Has established with Dr. Gallegos. Interval history: [...] ABDOMEN W/ & W/O CONTRAST 10/16/2021 10/16/2021 [facility] MRI w/wo IVCON: no patterns to [...] 6 mL 4 flash glucose scanning reader ([employer] Corporation[employer]YLE TERRELL 2 READER) 1 Each four times [...] before evening meal 3 Each 5 Insulin Dagmar, Disposable, (ULTICARE PEN NEEDLE) 29 gauge x [...] 64 YR, QUADRIVALENT (AFLURIA, FLULAVAL, FLUZONE) - Entrecard COVID-19 VACCINE (2022- [place]) AGE 12+ YR 18. Paronychia of finger of left hand - ICD9: 681.02, ICD10: L03.012 - Begin treatment with mupirocin three times a day until clear. - if worse call for oral ATB Use nail clipper rather than biting or ripping off hangnails. Jovany Rizzo PA-C documented in this encounter [facility] 11-22-2022 Note HNO ID: [id number] Author: Lorena Benjamin RDMS Service: ? Author Type: Haulpak Driver Type: Progress Notes Filed: 11/22/2022 12:58 PM [...] Benjamin RDMS November 22, 2022 12:58 PM [facility] 11-22-2022 History of Present illness Narrative Radiology [...] 2022 12:58 PM documented in this encounter [facility] 11-05-2022 Miscellaneous Notes Patient has [...] Jovany Rodriguez RN documented in this encounter [facility] 10-12-2022 Miscellaneous Notes Medication refill requested by [facility]. Requested Prescriptions Pending Prescriptions Disp Refills [...] Dhara Naylor RN documented in this encounter [facility] 10-06-2022 Miscellaneous Notes Pt notified [...] checked. Please advise documented in this encounter [facility] 10-01-2022 Miscellaneous Notes EDITA: 05/21/22 VV with PCP NOV: 10/19/22-med check with PCP Last refill: 09/24/21 With 6 kit and 3 refills iNka Watters MA Patient has been identified by [...] advise. Bhargavi Groves documented in this encounter [facility] 09-30-2022 Note HNO ID: [id number] Author: Pilar Cardoza PA-C Service: ? Author Type: Physician Truss Designer Type: Progress Notes Filed: 09/30/2022 9:42 AM [...] kit 1 Each four times daily. Insulin Dagmar, Disposable, (ULTICARE PEN NEEDLE) 29 gauge x [...] mask Social Hi (more content not included)... [facility] 09-14-2022 Miscellaneous Notes Patient has been identified [...] Sharon Horan LPN documented in this encounter [facility] 08-13-2022 Miscellaneous Notes Medication refill [...] Dhara Naylor RN documented in this encounter [facility] 08-11-2022 Miscellaneous Notes Patient calls to request a new order for compression stockings be sent to [facility] [place]. Pended per request with previous diagnosis of venous insufficiency. Rakel Douglas RN documented in this encounter [facility] 08-05-2022 Miscellaneous Notes The following [...] Yesenia Blanco LPN documented in this encounter [facility] 07-29-2022 Miscellaneous Notes Patient was [...] said she is taking 2 antibiotics from [facility] for skin infection on her back. She has 3 and 1/2 days of both antibiotics left and now having yeast infection issues, vaginal itching and cream like discharge when wiping. Patient asking for diflucan rx. Patient uses [facility] for her pharmacy. Pending rx if wanted. [...] 08/03. Please advise documented in this encounter [facility] 07-23-2022 Note HNO ID: [id number] Author: Maryann Alexander APRN.CNC MILL PROGRAMMER Service: ? Author Type: Nurse Practitioner Type: Progress Notes Filed: 07/23/2022 11:05 AM Note Text: Subjective The history is provided by the patient. No english as a second language teacher was used. HPI Rosa Maria Menjivar is [...] Diagnosis Date Chronic hypoxemic respiratory failure ([facility]) 07/16/2021 Due to morbid obesity. COPD (chronic obstructive pulmonary disease) ([facility]) with chronic hypoxemic respiratory failure; on oxygen 2 liters continuously Degenerative disc disease Depression Diabetes mellitus type II Dyslipidemia Hypertension IBS (irritable bowel syndrome) Microalbuminuria on adwoa inhibitor Obesity Palpitations Panic disorder Renal calculus Renal cell carcinoma of right kidney ([facility]) 2009 S/P partial right nephrectomy Sleep apnea uses CPAP Tobacco abuse Urinary calculus, unspecified Renal stones I have confirmed and edited as necessary, the [facility] Review of Systems Constitutional: Negative for [...] detail warranting prompt ER evaluation. Maryann Alexander APRN.[facility] 07-23-2022 History of Present illness Narrative Images from the original note were not included. Subjective The history is provided by the patient. No english as a second language teacher was used. HPI Rosa Maria Menjivar is [...] obesity. COPD (chronic obstructive pulmonary disease) ([facility]) with chronic hypoxemic respiratory failure; on oxygen 2 liters continuously Degenerative disc disease Depression Diabetes mellitus type II Dyslipidemia Hypertension IBS (irritable bowel syndrome) Microalbuminuria on adwoa inhibitor Obesity Palpitations Panic disorder Renal calculus Renal cell carcinoma of right kidney ([facility]) 2009 S/P partial right nephrectomy Sleep apnea uses CPAP Tobacco abuse Urinary calculus, unspecified Renal stones I have confirmed and edited as necessary, the [facility] Review of Systems Constitutional: Negative for [...] detail warranting prompt ER evaluation. Maryann Alexander APRN.CNC MILL PROGRAMMER documented in this encounter [facility] 07-22-2022 Miscellaneous Notes See MyChart message Dr Hogan asking to set up with endo MOTORBOAT OPERATOR here in [place] ([place]). Thank you documented in this encounter [facility] 07-21-2022 Miscellaneous Notes Addended by: SAMSON HOGAN on: 07/21/2022 05:38 PM Modules accepted: Orders Set up with endo director of leadership development documented in this encounter [facility] 07-07-2022 Note Patient Outreach (IN TMMN) ROSA MARIA MENJIVAR ([id number]) 1965 F Date Time Provider Department 07/07/22 [...] for screening mammogram for breast cancer [Z12.31] Order(s):[facility] SCREENING [[id number]] Order #: [id number] FUTURE Prescriptions as of 07/12/2022 - blood [...] a week. - flash glucose scanning reader ([employer] CorporationSTYLE TERRELL 2 READER) 1 Each four times daily. - flash glucose sensor (FREESTYLE TERRELL 2 SENSOR) kit 1 Each four times daily. - Insulin Dagmar, Disposable, (ULTICARE PEN NEEDLE) 29 gauge x [...] 05/03/2007 RENAL COLIC [N23] 05/03/2007 Urinary complications [ZLW6556] 03/21/2008 11/19/2015 HYDRONEPHROSIS [N13.30] 03/21/2008 Acute kidney [...] nodules [R91.8] 09/14 (more content not included)... [facility] 06-29-2022 Miscellaneous Notes Patient said she uses a [id number] Terrell system, but her reading are much [...] Jennifer Ashley Pss documented in this encounter [facility] 06-25-2022 Miscellaneous Notes Last Office Visit: 05/21/2022 Future Office Visit: None Requested Prescriptions Pending Prescriptions Disp Refills venlafaxine ER (EFFEXOR XR) 150 mg 24 hr capsule 84 capsule 3 Sig: Take 1 capsule by mouth once daily. documented in this encounter [facility] 05-27-2022 Miscellaneous Notes Patient has [...] Jovany Rodriguez RN documented in this encounter [facility] 05-27-2022 Miscellaneous Notes Spoke with daughter and states that hasn't had any readings over she believes 150 in probably a week. Encouraged to keep up the good work. Advised to send readings in 3-4 days. Asking for us to send sliding scale in [facility] message so will do that for patient. [...] Jennifer Nugent LPN documented in this encounter [facility] 05-27-2022 Miscellaneous Notes Patient returned [...] kidney stone. Rosa Maria Menjivar is calling Jovany Rizzo PA-C today to request pain medication for a kidney stone. Please call her cell number. Patient has been identified by name and birthdate. Duration of symptoms: N/A Person calling: self Call patient at: on cell [phone] (home) [phone] (cell) Was an appointment scheduled: No Closing statement: Symptom Call: Thank you for calling [facility], your call is very important. A nurse will call in approximately 2-4 hours during business hours. If this is an emergency, please contact 911. Bernie Ayala documented in this encounter [facility] 05-24-2022 Miscellaneous Notes Patient notified [...] Please advise patient. documented in this encounter [facility] 05-21-2022 Note HNO ID: [id number] Author: Jovany Rizzo PA-C Service: ? Author Type: Physician Truss Designer Type: Progress Notes Filed: 05/21/2022 11:22 AM Note Text: MyChart video visit was used for evaluation of this patient. Location of patient: [place] Patient was offered a virtual/telemedicine appointment in [...] visit. Either the patient or their legal payroll representative has been informed of the risks and [...] <2.54 0.81 1.03 Pvd (peripheral vascular disease) ([facility]) Current medications: ASA 81 mg daily 01/15/2022 PVR RABI 1.00, LABI 0.95 Chronic hypoxemic respiratory failure ([facility]) Chronic obstructive pulmonary disease, unspecified copd type ([facility]) Obstructive sleep apnea syndrome Lung nodules Current medications: O2 2 L/min nasal cannula continuous CPAP 11 cm with 20-minute ramp and humidification Carton Filling Machine Operator: Has established with Dr. Gallegos. Interval history: [...] complication, with long-term current use of insulin ([facility]) Albuminuria Current medications: Lispro 200 unit: 66 [...] couple lows at (more content not included)... [facility] 05-21-2022 History of Present illness Narrative [employer] video visit was used for evaluation of this patient. Location of patient: [place] Patient was offered a virtual/telemedicine appointment in [...] visit. Either the patient or their legal payroll representative has been informed of the risks and [...] 11 cm with 20-minute ramp and humidification Carton Filling Machine Operator: Has established with Dr. Gallegos. Interval history: [...] ABDOMEN W/ & W/O CONTRAST 10/16/2021 10/16/2021 [facility] MRI w/wo IVCON: no patterns to [...] four times daily. 6 Kit 3 Insulin Dagmar, Disposable, (ULTICARE PEN NEEDLE) 29 gauge x [...] MG TABLET 11:03 AM 44 minute call oJvany Rizzo PA-C documented in this encounter [facility] 05-13-2022 Note HNO ID: [id number] Author: RT Elda([place]) Service: ? Author Type: Haulpak Driver Type: Progress Notes Filed: 05/13/2022 9:29 AM [...] RT Ron(R) May 13, 2022 9:29 AM [facility] 05-13-2022 History of Present illness Narrative Radiology [...] 2022 9:29 AM documented in this encounter [facility] 04-29-2022 Miscellaneous Notes Patient has [...] Marcy Pandya, RN documented in this encounter [facility] 04-15-2022 Miscellaneous Notes Patient has [...] to the pharmacy. Please call patient at: [phone]. Janee Blanco Pss documented in this encounter [facility] 03-22-2022 Miscellaneous Notes Detailed message [...] Afia Lee RN documented in this encounter [facility] 03-11-2022 Note HNO ID: [id number] Author: Patti Gallegos MD Service: ? Author Type: Physician Type: Progress Notes Filed: 03/11/2022 3:41 PM Note Text: VIRTUAL VISIT PROGRESS NOTE This is a virtual visit using [employer] video visit. It required patient-provider interaction for [...] DATE OF EXAM: Jan 12 2021 1:22PM [facility] 0541 - CT CHEST WO IVCON [...] ABDOMEN W/ AND W/O CONTRAST 10/16/2021 10/16/2021 [facility] MRI w/wo IVCON: no patterns to [...] (3 mL) injection (more content not included)... [facility] 03-05-2022 Miscellaneous Notes Attempted to contact patient re: [employer] VV at number listed. Left message. Patient is active on [employer] and has confirmed login today, are we using [employer] platform for VV today? Unable to do telephone visit. Would need to reschedule to [employer] VV or F2F. Brittney Pearl LPN Patient called in stating she would like to be called on this number [phone] for her virtual visit with Dr. Gallegos today. Kayla Gallegos LPN documented in this encounter [facility] 03-03-2022 Miscellaneous Notes Patient has [...] Marcy Pandya RN documented in this encounter [facility] 02-02-2022 Miscellaneous Notes Patient has [...] Shaila Anderson Pss documented in this encounter [facility] 01-05-2022 Miscellaneous Notes TC to [...] Shaila Anderson Pss documented in this encounter [facility] 12-11-2021 Miscellaneous Notes LV 09/24/21 [...] Ernestina Moses Pss documented in this encounter [facility] 12-10-2021 Miscellaneous Notes Patient has [...] Jovany Rodriguez RN documented in this encounter [facility] 11-11-2021 Miscellaneous Notes EDITA 09/24/21 [...] Gayle Benz [employer] documented in this encounter [facility] 11-02-2021 Miscellaneous Notes MRI in scanned documents To my knowledge, I have not yet seen it. It may have gone to scanning though. Thanks, Gigi Rizzo PA-C Pt called back checking to see if you have received a copy of her MRI done at [facility] in [place]. last week. She is going to give them a call and have them refax . Fax number given. Please advise pt with results . Yesenia Blanco LPN documented in this encounter [facility] 10-26-2021 Miscellaneous Notes Phoned patient [...] complication, with long-term current use of insulin ([facility]) Thanks, Gigi Rizzo PA-C documented in this encounter [facility] documented as of this encounter (statuses as of 10/25/2021) [facility] History of Past illness Narrative* Problem Noted Date Resolved Date Pancreatic cyst 10/25/2021 10/25/2021 Overview: Dehiscence of incision 09/18/2009 1 Surgical wound infection 09/18/2009 019 Malignant neoplasm of kidney excluding renal pel vis 11/21/2008 06/25/2015 Urinary complications 03/21/2008 11/19/2015 Acute kidney failure, unspecified 03/21/2008 01/17/2017 documented as of this encounter (statuses as of 11/02/2021) [facility] History of Past illness Narrative* Problem Noted Date Resolved Date Pancreatic cyst 10/25/2021 10/25/2021 Overview: Dehiscence of incision 09/18/2009 1 Surgical wound infection 09/18/2009 019 Malignant neoplasm of kidney excluding renal pel vis 11/21/2008 06/25/2015 Urinary complications 03/21/2008 11/19/2015 Acute kidney failure, unspecified 03/21/2008 01/17/2017 documented as of this encounter (statuses as of 11/12/2021) [facility] History of Past illness Narrative* Problem Noted Date Resolved Date Pancreatic cyst 10/25/2021 10/25/2021 Overview: Dehiscence of incision 09/18/2009 1 Surgical wound infection 09/18/2009 019 Malignant neoplasm of kidney excluding renal pel vis 11/21/2008 06/25/2015 Urinary complications 03/21/2008 11/19/2015 Acute kidney failure, unspecified 03/21/2008 01/17/2017 documented as of this encounter (statuses as of 12/10/2021) [facility] History of Past illness Narrative* Problem Noted Date Resolved Date Pancreatic cyst 10/25/2021 10/25/2021 Overview: Dehiscence of incision 09/18/2009 1 Surgical wound infection 09/18/2009 019 Malignant neoplasm of kidney excluding renal pel vis 11/21/2008 06/25/2015 Urinary complications 03/21/2008 11/19/2015 Acute kidney failure, unspecified 03/21/2008 01/17/2017 documented as of this encounter (statuses as of 12/12/2021) [facility] History of Past illness Narrative* Problem Noted Date Resolved Date Pancreatic cyst 10/25/2021 10/25/2021 Overview: Dehiscence of incision 09/18/2009 1 Surgical wound infection 09/18/2009 019 Malignant neoplasm of kidney excluding renal pel vis 11/21/2008 06/25/2015 Urinary complications 03/21/2008 11/19/2015 Acute kidney failure, unspecified 03/21/2008 01/17/2017 documented as of this encounter (statuses as of 01/06/2022) [facility] History of Past illness Narrative* Problem Noted Date Resolved Date Pancreatic cyst 10/25/2021 10/25/2021 Overview: Dehiscence of incision 09/18/2009 1 Surgical wound infection 09/18/2009 019 Malignant neoplasm of kidney excluding renal pel vis 11/21/2008 06/25/2015 Urinary complications 03/21/2008 11/19/2015 Acute kidney failure, unspecified 03/21/2008 01/17/2017 documented as of this encounter (statuses as of 01/14/2022) [facility] History of Past illness Narrative* Problem Noted Date Resolved Date Pancreatic cyst 10/25/2021 10/25/2021 Overview: Dehiscence of incision 09/18/2009 1 Surgical wound infection 09/18/2009 019 Malignant neoplasm of kidney excluding renal pel vis 11/21/2008 06/25/2015 Urinary complications 03/21/2008 11/19/2015 Acute kidney failure, unspecified 03/21/2008 01/17/2017 documented as of this encounter (statuses as of 02/02/2022) [facility] History of Past illness Narrative* Problem Noted Date Resolved Date Pancreatic cyst 10/25/2021 10/25/2021 Overview: Dehiscence of incision 09/18/2009 1 Surgical wound infection 09/18/2009 019 Malignant neoplasm of kidney excluding renal pel vis 11/21/2008 06/25/2015 Urinary complications 03/21/2008 11/19/2015 Acute kidney failure, unspecified 03/21/2008 01/17/2017 documented as of this encounter (statuses as of 03/04/2022) [facility] History of Past illness Narrative* Problem Noted Date Resolved Date Pancreatic cyst 10/25/2021 10/25/2021 Overview: Dehiscence of incision 09/18/2009 1 Surgical wound infection 09/18/2009 019 Malignant neoplasm of kidney excluding renal pel vis 11/21/2008 06/25/2015 Urinary complications 03/21/2008 11/19/2015 Acute kidney failure, unspecified 03/21/2008 01/17/2017 documented as of this encounter (statuses as of 03/05/2022) [facility] History of Past illness Narrative* Problem Noted Date Resolved Date Pancreatic cyst 10/25/2021 10/25/2021 Overview: Dehiscence of incision 09/18/2009 1 Surgical wound infection 09/18/2009 019 Malignant neoplasm of kidney excluding renal pel vis 11/21/2008 06/25/2015 Urinary complications 03/21/2008 11/19/2015 Acute kidney failure, unspecified 03/21/2008 01/17/2017 documented as of this encounter (statuses as of 03/23/2022) [facility] History of Past illness Narrative* Problem Noted Date Resolved Date Pancreatic cyst 10/25/2021 10/25/2021 Overview: Dehiscence of incision 09/18/2009 1 Surgical wound infection 09/18/2009 019 Malignant neoplasm of kidney excluding renal pel vis 11/21/2008 06/25/2015 Urinary complications 03/21/2008 11/19/2015 Acute kidney failure, unspecified 03/21/2008 01/17/2017 documented as of this encounter (statuses as of 04/15/2022) [facility] History of Past illness Narrative* Problem Noted Date Resolved Date Pancreatic cyst 10/25/2021 10/25/2021 Overview: Dehiscence of incision 09/18/2009 1 Surgical wound infection 09/18/2009 019 Malignant neoplasm of kidney excluding renal pel vis 11/21/2008 06/25/2015 Urinary complications 03/21/2008 11/19/2015 Acute kidney failure, unspecified 03/21/2008 01/17/2017 documented as of this encounter (statuses as of 04/30/2022) [facility] History of Past illness Narrative* Problem Noted Date Resolved Date Pancreatic cyst 10/25/2021 10/25/2021 Overview: Dehiscence of incision 09/18/2009 1 Surgical wound infection 09/18/2009 019 Malignant neoplasm of kidney excluding renal pel vis 11/21/2008 06/25/2015 Urinary complications 03/21/2008 11/19/2015 Acute kidney failure, unspecified 03/21/2008 01/17/2017 documented as of this encounter (statuses as of 05/17/2022) [facility] of Past illness Narrative* Problem Noted Date Resolved Date Pancreatic cyst 10/25/2021 10/25/2021 Overview: Dehiscence of incision 09/18/2009 1 Surgical wound infection 09/18/2009 019 Malignant neoplasm of kidney excluding renal pel vis 11/21/2008 06/25/2015 Urinary complications 03/21/2008 11/19/2015 Acute kidney failure, unspecified 03/21/2008 01/17/2017 documented as of this encounter (statuses as of 05/21/2022) [facility] of Past illness Narrative* Problem Noted Date Resolved Date Pancreatic cyst 10/25/2021 10/25/2021 Overview: Dehiscence of incision 09/18/2009 1 Surgical wound infection 09/18/2009 019 Malignant neoplasm of kidney excluding renal pel vis 11/21/2008 06/25/2015 Urinary complications 03/21/2008 11/19/2015 Acute kidney failure, unspecified 03/21/2008 01/17/2017 documented as of this encounter (statuses as of 05/21/2022) [facility] of Past illness Narrative* Problem Noted Date Resolved Date Pancreatic cyst 10/25/2021 10/25/2021 Overview: Dehiscence of incision 09/18/2009 1 Surgical wound infection 09/18/2009 019 Malignant neoplasm of kidney excluding renal pel vis 11/21/2008 06/25/2015 Urinary complications 03/21/2008 11/19/2015 Acute kidney failure, unspecified 03/21/2008 01/17/2017 documented as of this encounter (statuses as of 05/25/2022) [facility] of Past illness Narrative* Problem Noted Date Resolved Date Pancreatic cyst 10/25/2021 10/25/2021 Overview: Dehiscence of incision 09/18/2009 1 Surgical wound infection 09/18/2009 019 Malignant neoplasm of kidney excluding renal pel vis 11/21/2008 06/25/2015 Urinary complications 03/21/2008 11/19/2015 Acute kidney failure, unspecified 03/21/2008 01/17/2017 documented as of this encounter (statuses as of 05/28/2022) [facility] of Past illness Narrative* Problem Noted Date Resolved Date Pancreatic cyst 10/25/2021 10/25/2021 Overview: Dehiscence of incision 09/18/2009 1 Surgical wound infection 09/18/2009 019 Malignant neoplasm of kidney excluding renal pel vis 11/21/2008 06/25/2015 Urinary complications 03/21/2008 11/19/2015 Acute kidney failure, unspecified 03/21/2008 01/17/2017 documented as of this encounter (statuses as of 05/28/2022) [facility] of Past illness Narrative* Problem Noted Date Resolved Date Pancreatic cyst 10/25/2021 10/25/2021 Overview: Dehiscence of incision 09/18/2009 1 Surgical wound infection 09/18/2009 019 Malignant neoplasm of kidney excluding renal pel vis 11/21/2008 06/25/2015 Urinary complications 03/21/2008 11/19/2015 Acute kidney failure, unspecified 03/21/2008 01/17/2017 documented as of this encounter (statuses as of 05/28/2022) [facility] of Past illness Narrative* Problem Noted Date Resolved Date Pancreatic cyst 10/25/2021 10/25/2021 Overview: Dehiscence of incision 09/18/2009 1 Surgical wound infection 09/18/2009 019 Malignant neoplasm of kidney excluding renal pel vis 11/21/2008 06/25/2015 Urinary complications 03/21/2008 11/19/2015 Acute kidney failure, unspecified 03/21/2008 01/17/2017 documented as of this encounter (statuses as of 06/15/2022) [facility] of Past illness Narrative* Problem Noted Date Resolved Date Pancreatic cyst 10/25/2021 10/25/2021 Overview: Dehiscence of incision 09/18/2009 1 Surgical wound infection 09/18/2009 019 Malignant neoplasm of kidney excluding renal pel vis 11/21/2008 06/25/2015 Urinary complications 03/21/2008 11/19/2015 Acute kidney failure, unspecified 03/21/2008 01/17/2017 documented as of this encounter (statuses as of 06/28/2022) [facility] of Past illness Narrative* Problem Noted Date Resolved Date Pancreatic cyst 10/25/2021 10/25/2021 Overview: Dehiscence of incision 09/18/2009 1 Surgical wound infection 09/18/2009 019 Malignant neoplasm of kidney excluding renal pel vis 11/21/2008 06/25/2015 Urinary complications 03/21/2008 11/19/2015 Acute kidney failure, unspecified 03/21/2008 01/17/2017 documented as of this encounter (statuses as of 06/30/2022) [facility] of Past illness Narrative* Problem Noted Date Resolved Date Pancreatic cyst 10/25/2021 10/25/2021 Overview: Dehiscence of incision 09/18/2009 1 Surgical wound infection 09/18/2009 019 Malignant neoplasm of kidney excluding renal pel vis 11/21/2008 06/25/2015 Urinary complications 03/21/2008 11/19/2015 Acute kidney failure, unspecified 03/21/2008 01/17/2017 documented as of this encounter (statuses as of 07/23/2022) [facility] of Past illness Narrative* Problem Noted Date Resolved Date Pancreatic cyst 10/25/2021 10/25/2021 Overview: Dehiscence of incision 09/18/2009 1 Surgical wound infection 09/18/2009 019 Malignant neoplasm of kidney excluding renal pel vis 11/21/2008 06/25/2015 Urinary complications 03/21/2008 11/19/2015 Acute kidney failure, unspecified 03/21/2008 01/17/2017 documented as of this encounter (statuses as of 07/12/2022) [facility] of Past illness Narrative* Problem Noted Date Resolved Date Pancreatic cyst 10/25/2021 10/25/2021 Overview: Dehiscence of incision 09/18/2009 1 Surgical wound infection 09/18/2009 019 Malignant neoplasm of kidney excluding renal pel vis 11/21/2008 06/25/2015 Urinary complications 03/21/2008 11/19/2015 Acute kidney failure, unspecified 03/21/2008 01/17/2017 documented as of this encounter (statuses as of 07/21/2022) [facility] of Past illness Narrative* Problem Noted Date Resolved Date Pancreatic cyst 10/25/2021 10/25/2021 Overview: Dehiscence of incision 09/18/2009 1 Surgical wound infection 09/18/2009 019 Malignant neoplasm of kidney excluding renal pel vis 11/21/2008 06/25/2015 Urinary complications 03/21/2008 11/19/2015 Acute kidney failure, unspecified 03/21/2008 01/17/2017 documented as of this encounter (statuses as of 07/29/2022) [facility] of Past illness Narrative* Problem Noted Date Resolved Date Pancreatic cyst 10/25/2021 10/25/2021 Overview: Dehiscence of incision 09/18/2009 1 Surgical wound infection 09/18/2009 019 Malignant neoplasm of kidney excluding renal pel vis 11/21/2008 06/25/2015 Urinary complications 03/21/2008 11/19/2015 Acute kidney failure, unspecified 03/21/2008 01/17/2017 documented as of this encounter (statuses as of 08/06/2022) [facility] of Past illness Narrative* Problem Noted Date Resolved Date Pancreatic cyst 10/25/2021 10/25/2021 Overview: Dehiscence of incision 09/18/2009 1 Surgical wound infection 09/18/2009 019 Malignant neoplasm of kidney excluding renal pel vis 11/21/2008 06/25/2015 Urinary complications 03/21/2008 11/19/2015 Acute kidney failure, unspecified 03/21/2008 01/17/2017 documented as of this encounter (statuses as of 08/11/2022) [facility] of Past illness Narrative* Problem Noted Date Resolved Date Pancreatic cyst 10/25/2021 10/25/2021 Overview: Dehiscence of incision 09/18/2009 1 Surgical wound infection 09/18/2009 019 Malignant neoplasm of kidney excluding renal pel vis 11/21/2008 06/25/2015 Urinary complications 03/21/2008 11/19/2015 Acute kidney failure, unspecified 03/21/2008 01/17/2017 documented as of this encounter (statuses as of 08/15/2022) [facility] of Past illness Narrative* Problem Noted Date Resolved Date Pancreatic cyst 10/25/2021 10/25/2021 Overview: Dehiscence of incision 09/18/2009 1 Surgical wound infection 09/18/2009 019 Malignant neoplasm of kidney excluding renal pel vis 11/21/2008 06/25/2015 Urinary complications 03/21/2008 11/19/2015 Acute kidney failure, unspecified 03/21/2008 01/17/2017 documented as of this encounter (statuses as of 08/20/2022) [facility] of Past illness Narrative* Problem Noted Date Diagnosed Date Resolved Date Pancreatic cyst 10/25/2021 10/25/2021 Overview: Dehiscence of incision 09/18/200908/29 Surgical wound infection 09/18/2009 Malignant neoplasm of kidney excluding renal pelvis 11/21/2008 06/25/2015 Urinary complications 03/21/20082015 Acute kidney failure, unspecified 03/21/2008 01/17/2017 documented as of this encounter (statuses as of 09/15/2022) [facility] of Past illness Narrative* Problem Noted Date Diagnosed Date Resolved Date Pancreatic cyst 10/25/2021 10/25/2021 Overview: Dehiscence of incision 09/18/200908/29 Surgical wound infection 09/18/2009 Malignant neoplasm of kidney excluding renal pelvis 11/21/2008 06/25/2015 Urinary complications 03/21/20082015 Acute kidney failure, unspecified 03/21/2008 01/17/2017 documented as of this encounter (statuses as of 10/01/2022) [facility] of Past illness Narrative* Problem Noted Date Diagnosed Date Resolved Date Pancreatic cyst 10/25/2021 10/25/2021 Overview: Dehiscence of incision 09/18/200908/29 Surgical wound infection 09/18/2009 Malignant neoplasm of kidney excluding renal pelvis 11/21/2008 06/25/2015 Urinary complications 03/21/20082015 Acute kidney failure, unspecified 03/21/2008 01/17/2017 documented as of this encounter (statuses as of 10/06/2022) [facility] of Past illness Narrative* Problem Noted Date Diagnosed Date Resolved Date Pancreatic cyst 10/25/2021 10/25/2021 Overview: Dehiscence of incision 09/18/200908/29 Surgical wound infection 09/18/2009 Malignant neoplasm of kidney excluding renal pelvis 11/21/2008 06/25/2015 Urinary complications 03/21/20082015 Acute kidney failure, unspecified 03/21/2008 01/17/2017 documented as of this encounter (statuses as of 10/13/2022) [facility] of Past illness Narrative* Problem Noted Date Diagnosed Date Resolved Date Pancreatic cyst 10/25/2021 10/25/2021 Overview: Dehiscence of incision 09/18/200908/29 Surgical wound infection 09/18/2009 Malignant neoplasm of kidney excluding renal pelvis 11/21/2008 06/25/2015 Urinary complications 03/21/20082015 Acute kidney failure, unspecified 03/21/2008 01/17/2017 documented as of this encounter (statuses as of 11/05/2022) [facility] of Past illness Narrative* Problem Noted Date Diagnosed Date Resolved Date Pancreatic cyst 10/25/2021 10/25/2021 Overview: Dehiscence of incision 09/18/200908/29 Surgical wound infection 09/18/2009 Malignant neoplasm of kidney excluding renal pelvis 11/21/2008 06/25/2015 Urinary complications 03/21/20082015 Acute kidney failure, unspecified 03/21/2008 01/17/2017 documented as of this encounter (statuses as of 11/27/2022) [facility] Narrative* Problem Noted Date Diagnosed Date Resolved Date Pancreatic cyst 10/25/2021 10/25/2021 Overview: Dehiscence of incision 09/18/200908/29 Surgical wound infection 09/18/2009 Malignant neoplasm of kidney excluding renal pelvis 11/21/2008 06/25/2015 Urinary complications 03/21/20082015 Acute kidney failure, unspecified 03/21/2008 01/17/2017 documented as of this encounter (statuses as of 11/28/2022) [facility] of Past illness Narrative* Problem Noted Date Diagnosed Date Resolved Date Pancreatic cyst 10/25/2021 10/25/2021 Overview: Dehiscence of incision 09/18/200908/29 Surgical wound infection 09/18/2009 Malignant neoplasm of kidney excluding renal pelvis 11/21/2008 06/25/2015 Urinary complications 03/21/20082015 Acute kidney failure, unspecified 03/21/2008 01/17/2017 documented as of this encounter (statuses as of 12/19/2022) [facility] Past illness Narrative* Problem Noted Date Diagnosed Date Resolved Date Pancreatic cyst 10/25/2021 10/25/2021 Overview: Dehiscence of incision 09/18/200908/29 Surgical wound infection 09/18/2009 Malignant neoplasm of kidney excluding renal pelvis 11/21/2008 06/25/2015 Urinary complications 03/21/20082015 Acute kidney failure, unspecified 03/21/2008 01/17/2017 documented as of this encounter (statuses as of 12/27/2022) [facility] of Past illness Narrative* Problem Noted Date Diagnosed Date Resolved Date Pancreatic cyst 10/25/2021 10/25/2021 Overview: Dehiscence of incision 09/18/200908/29 Surgical wound infection 09/18/2009 Malignant neoplasm of kidney excluding renal pelvis 11/21/2008 06/25/2015 Urinary complications 03/21/20082015 Acute kidney failure, unspecified 03/21/2008 01/17/2017 documented as of this encounter (statuses as of 01/18/2023) [facility] Past [facility] Narrative* Problem Noted Date Diagnosed Date Resolved Date Pancreatic cyst 10/25/2021 10/25/2021 Overview: Dehiscence of incision 09/18/200908/29 Surgical wound infection 09/18/2009 Malignant neoplasm of kidney excluding renal pelvis 11/21/2008 06/25/2015 Urinary complications 03/21/20082015 Acute kidney failure, unspecified 03/21/2008 01/17/2017 documented as of this encounter (statuses as of 01/29/2023) [facility] Miscellaneous Notes* Telephone Encounter - Kandace Love RN - 10/18/2021 3:30 PM EDT Patient calling with request for medication/refill: Patient/caregiver requesting refill of Humalog be called to [facility] pharmacy at [phone].. Patient denies any new or worsening symptoms [...] and read back to Jim Herrera at [facility]; by Kandace Love RN. Patient/Family notified: Yes Kandace Love RN documented [facility] Miscellaneous Notes* Telephone Encounter - Jovany Rodriguez RN - 10/16/2021 1:38 PM EDT Patient returned call and given provider's message below with verbalized understanding. Patient reports her daughter will pick up man container at lab. * Telephone Encounter - Elaine Parker LPN - 10/16/2021 11:59 AM EDT Left message to call office. * Telephone Encounter - Jovany Rizzo PA-C - 10/16/2021 7:53 AM EDT See mychart: large microalbuminuria. Please have her come into obtain container. Telephone on 10/16/21 ALBUMIN QUANT 24H UR CREAT CLEAR 24 HOUR Thanks, Gigi Rizzo PA-C [facility] Miscellaneous Notes* Telephone Encounter - [...] having MRI done on October 16 in [place]. She plans to come in to have lab work done that Gigi Rizzo has ordered possibly Tuesday. She is needing a copy of the BUN faxed. Patient will call back, she will get name of facility and who to send results to and fax number. documented in [facility] Miscellaneous Notes* Telephone Encounter - Elaine Parker LPN - 10/14/2021 3:47 PM EDT Spoke with Karlee and she is going to take care of this. * Telephone Encounter - Dhara Naylor RN - 10/14/2021 3:07 PM EDT Karlee with [facility] states patient has rescheduled her MRI outside of authorized insurance timeframe. Karlee reports MOY Sousa would need contacted at [phone] for insurance extensionfor MRI. For any other further questions, may call Karlee back at [phone]. Thank you. documented in this [facility]08-31-2022 Miscellaneous Notes* Telephone Encounter - Elaine Parker LPN - 10/14/2021 1:50 PM EDT Faxed as requested from [facility]. * Telephone Encounter - Ema Joseph RN - 10/09/2021 3:21 PM EDT Pts daughter called in and reports Pt is having an MRI on 10/16/21 at [facility]. She states they need to have Pts BUN and Creat faxed up to them once Pt has labs drawn next week. Please fax lab results to [phone]. 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 Patient will pickup after 11:15 am on Tuesday, 10/05. Thank you! documented in this [facility]08-11-2022 History of Present illness Narrative* Jovany Rizzo PA-C - 09/24/2021 8:00 AM EDT [facility] was used for evaluation of this patient. 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 Bernard. Interval history: 07/16/2021 last visit [...] Lymph 1.00 - 4.00 k/uL 3.76 2.35 Harney% % 5.1 5.0 Abs Harney <0.87 k/uL 0.73 0.59 Eosin% % 2.6 [...] Diagnosis Date Chronic hypoxemic respiratory failure ([facility]) 07/16/2021 Due to morbid obesity. COPD (chronic obstructive pulmonary disease) ([facility]) with chronic hypoxemic respiratory failure; on oxygen 2 liters continuously Degenerative disc disease Depression Diabetes mellitus type II Dyslipidemia Hypertension IBS (irritable bowel syndrome) Microalbuminuria on adwoa inhibitor Obesity Palpitations Panic disorder Renal calculus Renal cell carcinoma of right kidney ([facility]) 2009 S/P partial right nephrectomy Sleep apnea [...] units with dinner 15 Pen 0 Insulin Dagmar, Disposable, (ULTICARE PEN NEEDLE) 29 gauge x [...] week. 6 mL 4 flash glucose sensor ([employer] Corporation[employer] TERRELL 14 DAY SENSOR) kit Apply new [...] Type 2 DM - Uncontrolled E11.65 Insulin: [id number] Each 11 CPAP 11 cm via nasal [...] BASIC 3. PVD (peripheral vascular disease) ([facility]) - ICD9: 443.9, ICD10: I73.9 No current [...] obstructive pulmonary disease, unspecified COPD type ([facility]) - ICD9: 496, ICD10: J44.9 As above [...] with long-term current use of insulin ([facility]) - ICD9: 250.00, V58.67, ICD10: E11.9, Z79.4 [...] call Jovany Rizzo PA-C documented in this encounterOhiohealth Southeastern Medical Center08-04-2022 Miscellaneous Notes* Telephone Encounter - Yesenia Blanco LPN - 09/17/2021 1:33 PM EDT Patient [...] you. Yesenia Blanco LPN documented in this encounterOhiohealth Southeastern Medical Center07-25-2022 Miscellaneous Notes* Telephone Encounter - MARK Shaw - 09/07/2021 1:30 PM EDT Mailed * Telephone Encounter - Bhargavi Groves - 09/02/2021 4:52 PM EDT Pt calling to request disc of her CT done last October (10/22) be mailed to her doctors office as she can not come in to get it. Please mail to: ATTN: PAT [id number] [place] [address] documented in this encounterOhiohealth Southeastern Medical Center07-25-2022 Miscellaneous Notes* Telephone Encounter - Rich Irby LPN - 09/07/2021 11:10 AM EDT EDITA 07/10/21 NOV 09/24/21 * Telephone Encounter - Gayle Benz [facility] - 09/07/2021 10:04 AM EDT Patient has [...] TODAY AT NOON. P[facility] TODAY [facility] documented in this encounterOhiohealth Southeastern Medical Center07-15-2022 Miscellaneous Notes* Telephone Encounter - Patti Panda Ma - 08/28/2021 8:15 AM EDT Patient was notified that Tresiba is approved until 07/2022 Faxed approval information to lucy Panda Ma * Telephone Encounter - Yesenia Wheelerhl SENIOR QUALITY MANAGER - 08/28/2021 8:04 AM EDT Pt called and states [facility] [...] medication. Yesenia Blanco LPN documented in this encounterOhiohealth Southeastern Medical Center06-28-2022 Miscellaneous Notes* Telephone Encounter - Patti Panda Ma - 08/11/2021 8:56 AM EDT Tresiba Approved and patient notified via voicemail Patti Panda Ma * Telephone Encounter - Marlen Nixon LPN - 08/06/2021 11:36 AM EDT Electronic PA requested for tresiba. documented in this encounterOhiohealth Southeastern Medical Center06-22-2022 Miscellaneous Notes* Telephone Encounter - Pilar Pendleton Pss - 08/05/2021 3:52 PM EDT Patient is currently out of her humalog, needs for tonight. Please call in to the [facility] pharmacy on file and notify patient when [...] advise. Pilar Pendleton Pss documented in this encounterOhiohealth Southeastern Medical Center06-08-2022 Miscellaneous Notes* Telephone Encounter - [...] Not applicable Please advise. Thank you. Marcy Pandya, RN documented in this encounterOhiohealth Southeastern Medical Center05-31-2022 Miscellaneous Notes* Telephone Encounter - Mat Davidson RPh - 07/14/2021 3:54 PM EDT Attempted to call patient for today's scheduled pharmacy phone follow up. Not able to reach after several attempts. Attempted to reach patient at listed numbers [phone] (LVM), and [phone]. On third attempt, patient's spouse answers phone to state patient is not available at this time. Instructed to return call to reschedule visit. He verbalized understanding. Mat Davidson, PharmD Primary Care Clinical Pharmacist [facility] documented in this encounterOhiohealth Southeastern Medical Center05-27-2022 History of Present illness Narrative* Jovany Rizzo PA-C - 07/10/2021 1:48 PM EDT MyChart video visit was used for evaluation of this patient. Location of patient: [place] Patient was offered a virtual/telemedicine appointment in [...] Type 2 DM - Uncontrolled E11.65 Insulin: [id number] Each 11 Insulin Dagmar, Disposable, (ULTICARE PEN NEEDLE) 29 gauge x [...] PM Jovany Rizzo PA-C documented in this encounterOhiohealth Southeastern Medical Center05-10-2022 Miscellaneous Notes* Telephone Encounter - [...] help her relax. Please advise patient. PH: [phone]. Thank you. documented in this encounterOhiohealth Southeastern Medical Center05-10-2022 History of Present illness Narrative* Mat Davidson, [facility] - 06/23/2021 2:30 PM EDT Primary Care [...] Lunch: leftovers from supper Dinner: lasagne, pasta, puerto rican rice, hot dogs and hamburgers, pork steaks, [...] Date COPD (chronic obstructive pulmonary disease) ([facility]) with chronic hypoxemic respiratory failure; on oxygen [...] mg subcutaneously one time a week. Insulin Dagmar, Disposable, (ULTICARE PEN NEEDLE) 29 gauge x [...] with long-term current use of insulin ([facility]) - ICD9: 250.00, V58.67, ICD10: E11.9, Z79.4 [...] Davidson, ZaraD, BCACP Primary Care Clinical Pharmacist [facility] The majority of the pharmacy visit (> 50%) was spent counseling and/or coordinating care for thepatient. [Telephonic] time was 18 minutes. documented in this encounterOhiohealth Southeastern Medical Center05-05-2022 Miscellaneous Notes* Telephone Encounter - Nika Watters MA - 06/18/2021 8:51 AM EDT Daughter notified. * Telephone Encounter - Samson Hogan MD - 06/18/2021 8:36 AM EDT Cholesterol was good. It looks like only part of the labs were done due to epic change. Needs at least a1c as well. documented in this encounterOhiohealth Southeastern Medical Center04-27-2022 Miscellaneous Notes* Telephone Encounter - Samson Hogan MD - 06/10/2021 2:17 PM EDT Placed * Telephone Encounter - Marcy Pandya RN - 06/10/2021 12:23 PM EDT Patient calling with request for new order MRI abdomen (MRI Liver WO/WIVCON). She came [place] [facility] [place] to have it done but became claustrophobic and it was cancelled. She says she can go to [place] where they have a bigger MRI machine. Marcy Pandya, RN documented in this encounterOhiohealth Southeastern Medical Center04-21-2022 Miscellaneous Notes* Telephone Encounter - [...] Center. Yesenia Blanco LPN documented in this encounterOhiohealth Southeastern Medical Center04-19-2022 History of Present illness Narrative* Mat Davidson, [facility] - 06/02/2021 1:00 PM EDT Primary Care Pharmacy Visit REASON FOR CONSULT: DM GOALS: A1c < 7% CONSULTING PROVIDER: ARMIN Rizzo And Dr. Hogan Date of Consult: 11/29/18 (Gigi) and 03/12/17 (Dr. Hogan) Rosa aMria Menjivar is a 55 year old female [...] Lunch: leftovers from supper Dinner: lasagne, pasta, puerto rican rice, hot dogs and hamburgers, pork steaks, mashed potatoes Snacks: chips, easter candy, cookies, cheese sticks, yogurt Beverages: diet coke, water Exercise: limited MEDICATIONS: Pill bottles are not present. Adherence: denies missed doses. ACTIVE PROBLEM LIST Calculus of Kidney Renal Colic Hydronephrosis Calculus of Ureter Foreign Body in Bladder and Urethra Asa Class Iii Flank Hernia Morbid Obesity With Bmi of 50.0-59.9, Adult ([facility]) Depression Ddd (Degenerative Disc Disease), Lumbar Ibs (Irritable Bowel Syndrome) Panic Disorder Sleep Apnea Hypertension Diabetes Mellitus (Hcc) Lumbago Malignant Neoplasm of Kidney Excluding Renal Pelvis ([facility]) Mixed Hyperlipidemia Pvd (Peripheral Vascular Disease) ([facility]) Chronic Obstructive Pulmonary Disease ([facility]) PAST MEDICAL HISTORY Diagnosis Date COPD (chronic obstructive pulmonary disease) ([facility]) with chronic hypoxemic respiratory failure; on oxygen 2 liters continuously Degenerative disc disease Depression Diabetes mellitus type II Dyslipidemia Hypertension IBS (irritable bowel syndrome) Microalbuminuria on adwoa inhibitor Obesity Palpitations Panic disorder Renal calculus Renal cell carcinoma of right kidney ([facility]) 2009 S/P partial right nephrectomy Sleep apnea [...] Inject 88 Units subcutaneously twice daily. Insulin Dagmar, Disposable, (ULTICARE PEN NEEDLE) 29 gauge x [...] TG 343 03/24/2020 The ASCVD Risk score (Marionatul MALIN Jr., et al., 2013) failed to calculate for the following reasons: The valid total cholesterol range is 130 to 320 mg/dL Albumin/Creat Ratio (mg/g) Date Value 03/24/2020 937 (H) PHARMACOTHERAPY ASSESSMENT/PLAN: 1. Type 2 diabetes mellitus without complication, with long-term current use of insulin ([facility]) - ICD9: 250.00, V58.67, ICD10: E11.9, Z79.4 [...] Davidson PharmD, BCACP Primary Care Clinical Pharmacist [facility] The majority of the pharmacy visit (> 50%) was spent counseling and/or coordinating care for thepatient. [Telephonic] time was 23 minutes. documented in this encounterOhiohealth Southeastern Medical Center04-15-2022 Miscellaneous Notes* Telephone Encounter - [...] you. Izabella Haas LPN documented in this encounterOhiohealth Southeastern Medical Center04-15-2022 Miscellaneous Notes* Telephone Encounter - Elaine Parker LPN - 05/29/2021 10:18 AM EDT Patient here to have labs completed and needs updated labs from remote use only labs. No need to contact can close after orders filed. documented in this encounterOhiohealth Southeastern Medical Center08-05-2010 History of Past illness Narrative* Problem Noted Date Resolved Date Dehiscence of incision 09/18/2009 1 Surgical wound infection 09/18/2009 019 Malignant neoplasm of kidney excluding renal pel vis 11/21/2008 06/25/2015 Urinary complications 03/21/2008 11/19/2015 Acute kidney failure, unspecified 03/21/2008 01/17/2017 documented as of this encounter (statuses as of 05/29/2021) [facility] History of Past illness Narrative* Problem Noted Date Resolved Date Dehiscence of incision 09/18/2009 1 Surgical wound infection 09/18/2009 019 Malignant neoplasm of kidney excluding renal pel vis 11/21/2008 06/25/2015 Urinary complications 03/21/2008 11/19/2015 Acute kidney failure, unspecified 03/21/2008 01/17/2017 documented as of this encounter (statuses as of 05/29/2021) [facility] of Past illness Narrative* Problem Noted Date Resolved Date Dehiscence of incision 09/18/2009 1 Surgical wound infection 09/18/2009 019 Malignant neoplasm of kidney excluding renal pel vis 11/21/2008 06/25/2015 Urinary complications 03/21/2008 11/19/2015 Acute kidney failure, unspecified 03/21/2008 01/17/2017 documented as of this encounter (statuses as of 05/30/2021) [facility] of Past illness Narrative* Problem Noted Date Resolved Date Dehiscence of incision 09/18/2009 1 Surgical wound infection 09/18/2009 019 Malignant neoplasm of kidney excluding renal pel vis 11/21/2008 06/25/2015 Urinary complications 03/21/2008 11/19/2015 Acute kidney failure, unspecified 03/21/2008 01/17/2017 documented as of this encounter (statuses as of 06/04/2021) [facility] of Past illness Narrative* Problem Noted Date Resolved Date Dehiscence of incision 09/18/2009 1 Surgical wound infection 09/18/2009 019 Malignant neoplasm of kidney excluding renal pel vis 11/21/2008 06/25/2015 Urinary complications 03/21/2008 11/19/2015 Acute kidney failure, unspecified 03/21/2008 01/17/2017 documented as of this encounter (statuses as of 06/10/2021) [facility] of Past illness Narrative* Problem Noted Date Resolved Date Dehiscence of incision 09/18/2009 1 Surgical wound infection 09/18/2009 019 Malignant neoplasm of kidney excluding renal pel vis 11/21/2008 06/25/2015 Urinary complications 03/21/2008 11/19/2015 Acute kidney failure, unspecified 03/21/2008 01/17/2017 documented as of this encounter (statuses as of 06/14/2021) [facility] of Past illness Narrative* Problem Noted Date Resolved Date Dehiscence of incision 09/18/2009 1 Surgical wound infection 09/18/2009 019 Malignant neoplasm of kidney excluding renal pel vis 11/21/2008 06/25/2015 Urinary complications 03/21/2008 11/19/2015 Acute kidney failure, unspecified 03/21/2008 01/17/2017 documented as of this encounter (statuses as of 06/18/2021) [facility] of Past illness Narrative* Problem Noted Date Resolved Date Dehiscence of incision 09/18/2009 1 Surgical wound infection 09/18/2009 019 Malignant neoplasm of kidney excluding renal pel vis 11/21/2008 06/25/2015 Urinary complications 03/21/2008 11/19/2015 Acute kidney failure, unspecified 03/21/2008 01/17/2017 documented as of this encounter (statuses as of 06/23/2021) [facility] of Past illness Narrative* Problem Noted Date Resolved Date Dehiscence of incision 09/18/2009 1 Surgical wound infection 09/18/2009 019 Malignant neoplasm of kidney excluding renal pel vis 11/21/2008 06/25/2015 Urinary complications 03/21/2008 11/19/2015 Acute kidney failure, unspecified 03/21/2008 01/17/2017 documented as of this encounter (statuses as of 06/24/2021) [facility] of [facility] illness Narrative* Problem Noted Date Resolved Date Dehiscence of incision 09/18/2009 1 Surgical wound infection 09/18/2009 019 Malignant neoplasm of kidney excluding renal pel vis 11/21/2008 06/25/2015 Urinary complications 03/21/2008 11/19/2015 Acute kidney failure, unspecified 03/21/2008 01/17/2017 documented as of this encounter (statuses as of 07/10/2021) [facility] of [facility] Narrative* Problem Noted Date Resolved Date Dehiscence of incision 09/18/2009 1 Surgical wound infection 09/18/2009 019 Malignant neoplasm of kidney excluding renal pel vis 11/21/2008 06/25/2015 Urinary complications 03/21/2008 11/19/2015 Acute kidney failure, unspecified 03/21/2008 01/17/2017 documented as of this encounter (statuses as of 07/24/2021) [facility] Narrative* Problem Noted Date Resolved Date Dehiscence of incision 09/18/2009 1 Surgical wound infection 09/18/2009 019 Malignant neoplasm of kidney excluding renal pel vis 11/21/2008 06/25/2015 Urinary complications 03/21/2008 11/19/2015 Acute kidney failure, unspecified 03/21/2008 01/17/2017 documented as of this encounter (statuses as of 07/29/2021) [facility] Narrative* Problem Noted Date Resolved Date Dehiscence of incision 09/18/2009 1 Surgical wound infection 09/18/2009 019 Malignant neoplasm of kidney excluding renal pel vis 11/21/2008 06/25/2015 Urinary complications 03/21/2008 11/19/2015 Acute kidney failure, unspecified 03/21/2008 01/17/2017 documented as of this encounter (statuses as of 08/05/2021) [facility] Narrative* Problem Noted Date Resolved Date Dehiscence of incision 09/18/2009 1 Surgical wound infection 09/18/2009 019 Malignant neoplasm of kidney excluding renal pel vis 11/21/2008 06/25/2015 Urinary complications 03/21/2008 11/19/2015 Acute kidney failure, unspecified 03/21/2008 01/17/2017 documented as of this encounter (statuses as of 08/10/2021) [facility] Narrative* Problem Noted Date Resolved Date Dehiscence of incision 09/18/2009 1 Surgical wound infection 09/18/2009 019 Malignant neoplasm of kidney excluding renal pel vis 11/21/2008 06/25/2015 Urinary complications 03/21/2008 11/19/2015 Acute kidney failure, unspecified 03/21/2008 01/17/2017 documented as of this encounter (statuses as of 08/11/2021) [facility] Narrative* Problem Noted Date Resolved Date Dehiscence of incision 09/18/2009 1 Surgical wound infection 09/18/2009 019 Malignant neoplasm of kidney excluding renal pel vis 11/21/2008 06/25/2015 Urinary complications 03/21/2008 11/19/2015 Acute kidney failure, unspecified 03/21/2008 01/17/2017 documented as of this encounter (statuses as of 08/13/2021) [facility] Narrative* Problem Noted Date Resolved Date Dehiscence of incision 09/18/2009 1 Surgical wound infection 09/18/2009 019 Malignant neoplasm of kidney excluding renal pel vis 11/21/2008 06/25/2015 Urinary complications 03/21/2008 11/19/2015 Acute kidney failure, unspecified 03/21/2008 01/17/2017 documented as of this encounter (statuses as of 08/28/2021) [facility] Narrative* Problem Noted Date Resolved Date Dehiscence of incision 09/18/2009 1 Surgical wound infection 09/18/2009 019 Malignant neoplasm of kidney excluding renal pel vis 11/21/2008 06/25/2015 Urinary complications 03/21/2008 11/19/2015 Acute kidney failure, unspecified 03/21/2008 01/17/2017 documented as of this encounter (statuses as of 09/07/2021) [facility] Narrative* Problem Noted Date Resolved Date Dehiscence of incision 09/18/2009 1 Surgical wound infection 09/18/2009 019 Malignant neoplasm of kidney excluding renal pel vis 11/21/2008 06/25/2015 Urinary complications 03/21/2008 11/19/2015 Acute kidney failure, unspecified 03/21/2008 01/17/2017 documented as of this encounter (statuses as of 09/07/2021) [facility] Narrative* Problem Noted Date Resolved Date Dehiscence of incision 09/18/2009 1 Surgical wound infection 09/18/2009 019 Malignant neoplasm of kidney excluding renal pel vis 11/21/2008 06/25/2015 Urinary complications 03/21/2008 11/19/2015 Acute kidney failure, unspecified 03/21/2008 01/17/2017 documented as of this encounter (statuses as of 09/17/2021) [facility] Narrative* Problem Noted Date Resolved Date Dehiscence of incision 09/18/2009 1 Surgical wound infection 09/18/20092 019 Malignant neoplasm of kidney excluding renal pel vis 11/21/2008 06/25/2015 Urinary complications 03/21/2008 11/19/2015 Acute kidney failure, unspecified 03/21/2008 01/17/2017 documented as of this encounter (statuses as of 09/24/2021) [facility] Narrative* Problem Noted Date Resolved Date Dehiscence of incision 09/18/2009 1 Surgical wound infection 09/18/2009 019 Malignant neoplasm of kidney excluding renal pel vis 11/21/2008 06/25/2015 Urinary complications 03/21/2008 11/19/2015 Acute kidney failure, unspecified 03/21/2008 01/17/2017 documented as of this encounter (statuses as of 10/02/2021) [facility] Narrative* Problem Noted Date Resolved Date Dehiscence of incision 09/18/2009 1 Surgical wound infection 09/18/2009 019 Malignant neoplasm of kidney excluding renal pel vis 11/21/2008 06/25/2015 Urinary complications 03/21/2008 11/19/2015 Acute kidney failure, unspecified 03/21/2008 01/17/2017 documented as of this encounter (statuses as of 10/14/2021) [facility] Narrative* Problem Noted Date Resolved Date Dehiscence of incision 09/18/2009 1 Surgical wound infection 09/18/2009 019 Malignant neoplasm of kidney excluding renal pel vis 11/21/2008 06/25/2015 Urinary complications 03/21/2008 11/19/2015 Acute kidney failure, unspecified 03/21/2008 01/17/2017 documented as of this encounter (statuses as of 10/15/2021) [facility] Narrative* Problem Noted Date Resolved Date Dehiscence of incision 09/18/2009 1 Surgical wound infection 09/18/2009 019 Malignant neoplasm of kidney excluding renal pel vis 11/21/2008 06/25/2015 Urinary complications 03/21/2008 11/19/2015 Acute kidney failure, unspecified 03/21/2008 01/17/2017 documented as of this encounter (statuses as of 10/16/2021) [facility] Narrative* Problem Noted Date Resolved Date Dehiscence of incision 09/18/2009 1 Surgical wound infection 09/18/2009 019 Malignant neoplasm of kidney excluding renal pel vis 11/21/2008 06/25/2015 Urinary complications 03/21/2008 11/19/2015 Acute kidney failure, unspecified 03/21/2008 01/17/2017 documented as of this encounter (statuses as of 10/18/2021) [facility]* Diagnosis Type 2 diabetes mellitus without complication, with long-term current use of insulin (HCC)- Primary Mixed hyperlipidemia Primary hypertension Unspecified essential hypertension Essential hypertension Unspecified essential hypertension documented [facility] this encounter [facility]* Diagnosis Anxiety Anxiety state, unspecified Essential hypertension Unspecified essential hypertension Hypokalemia Hypopotassemia [facility]* Diagnosis Liver mass Unspecified disorder of liver documented in this [facility]* Diagnosis SOB (shortness of breath)- Primary Shortness of breath documented in this encounter [facility] Diagnosis Liver mass- Primary Unspecified disorder of liver documented [facility] this encounter [facility]* Diagnosis Type 2 diabetes mellitus without complication, with long-term current use of insulin (HCC)- Primary documented [facility] this encounter [facility]* Diagnosis Type 2 diabetes mellitus without complication, with long-term current use of insulin (HCC)- Primary [facility] Diagnosis Anxiety- Primary Anxiety state, unspecified [facility] Diagnosis Type 2 diabetes mellitus without complication, with long-term current use of insulin (HCC)- Primary documented in this encounter [facility] note* Diagnosis Acute maxillary sinusitis, recurrence not specified- Primary documented in this encounter [facility] note* Diagnosis Type 2 diabetes mellitus without complication, with long-term current use of insulin (HCC) documented [facility]* Diagnosis Encounter for screening mammogram for breast cancer documented [facility]* Diagnosis DDD (degenerative disc disease), lumbar Degeneration of lumbar or lumbosacral intervertebral disc [facility]* Diagnosis Primary hypertension- Primary Unspecified essential [...] hyperglycemia (HCC)- Primary [facility] Diagnosis Microalbuminuria- Primary Proteinuria [facility] Diagnosis Type 2 diabetes mellitus without complication, with long-term current use of insulin (HCC) documented [facility]* Diagnosis gallbladder duct cyst- Primary Other specified disorders of liver Staghorn renal calculus Calculus of kidney Adrenal adenoma, right [facility] Diagnosis Hypokalemia Hypopotassemia Essential hypertension Unspecified essential hypertension Anxiety Anxiety state, unspecified [facility] Diagnosis Essential hypertension Unspecified essential hypertension Mixed hyperlipidemia Panic disorder Panic disorder without agoraphobia DDD (degenerative disc disease), lumbar Degeneration of lumbar or lumbosacral intervertebral disc documented [facility]* Diagnosis Type 2 diabetes mellitus without complication, with long-term current use of insulin (HCC) documented [facility]* Diagnosis Type 2 diabetes mellitus without complication, with long-term current use of insulin (HCC) documented [facility]* Diagnosis Albuminuria- Primary Proteinuria Type 2 diabetes mellitus with other specified complication, with long-term current use of insulin (HCC) [facility] Diagnosis DDD (degenerative disc disease), lumbar Degeneration of lumbar or lumbosacral intervertebral disc [facility] Diagnosis Anxiety- Primary Anxiety state, unspecified Depression, unspecified depression type Type 2 diabetes mellitus without complication, with long-term current use of insulin (HCC) Primary hypertension Unspecified essential hypertension documented [facility]* Diagnosis Type 2 diabetes mellitus without complication, with long-term current use of insulin (HCC) [facility] Diagnosis Essential hypertension Unspecified essential hypertension Anxiety Anxiety state, unspecified Hypokalemia Hypopotassemia [facility]* Diagnosis Ground glass opacity present on imaging of lung- Primary Lung nodules Other nonspecific abnormal finding of lung field [facility]* Diagnosis Essential hypertension- Primary [...] Calculus of kidney [facility] Diagnosis DDD (degenerative disc disease), lumbar Degeneration of lumbar or lumbosacral intervertebral disc Essential hypertension Unspecified essential hypertension Mixed hyperlipidemia Panic disorder Panic disorder without agoraphobia Type 2 diabetes mellitus without complication, with long-term current use of insulin (HCC) [facility] Diagnosis Type 2 diabetes mellitus without complication, with long-term current use of insulin ([facility]) documented [facility] this encounter [facility]* Diagnosis Depression, unspecified depression type documented [facility] this [facility]* Diagnosis Type 2 diabetes mellitus without complication, with long-term current use of insulin ([facility]) documented [facility] this [facility] Diagnosis Redness of skin- Primary Unspecified erythematous condition Bilateral elbow joint pain [facility]* Diagnosis Encounter for screening mammogram for breast cancer documented [facility]* Diagnosis Type 2 diabetes mellitus without complication, with long-term current use of insulin (HCC) documented [facility]* Diagnosis Type 2 diabetes mellitus without complication, with long-term current use of insulin (HCC) documented [facility]* Diagnosis Type 2 diabetes mellitus without complication, with long-term current use of insulin ([facility]) documented [facility]* Diagnosis Venous insufficiency of both lower extremities- Primary [facility]* Diagnosis DDD (degenerative disc disease), lumbar Degeneration of lumbar or lumbosacral intervertebral disc [facility] Diagnosis Depression, unspecified depression type [facility]* Diagnosis Type 2 diabetes mellitus without complication, with long-term current use of insulin ([facility]) [facility]* Diagnosis Essential hypertension Unspecified essential hypertension Anxiety Anxiety state, unspecified Hypokalemia Hypopotassemia [facility]* Diagnosis DDD (degenerative disc disease), lumbar Degeneration of lumbar or lumbosacral intervertebral disc Essential hypertension Unspecified essential hypertension Mixed hyperlipidemia Panic disorder Panic disorder without agoraphobia documented [facility]* Diagnosis Essential hypertension- Primary Unspecified essential [...] of left hand documented in this encounter [facility] note* Diagnosis Thyroid nodule greater than or equal to 1 cm in diameter incidentally noted on imaging study- Primary documented [facility]* Diagnosis Thyroid nodule Nontoxic uninodular goiter documented [facility] this encounter [facility]* Diagnosis Lung nodules Other nonspecific abnormal finding of lung field Cigarette smoker Tobacco use disorder History of renal cell cancer documented [facility] this [facility]* Diagnosis Type 2 diabetes mellitus without complication, with long-term current use of insulin ([facility]) documented in this encounter [facility] note* Diagnosis DDD (degenerative disc disease), lumbar Degeneration of lumbar or lumbosacral intervertebral disc documented in this encounter [facility] for referral (narrative)* Diagnostic Procedure Only (Routine) - Pending Review Specialty Diagnoses / Procedures Referred By Contac t Referred To Contact [facility] IMAGING Diagnoses Encounter for screening mammogram for breast cancer Procedures SHAHRAM SCREENING SCREENING MAMMOGRAPHY BI 2-VIEW BREAST INC CAD Jovany Rizzo PA-C [address] [place] [address] [facility] [address] [place] [address] Referral ID Status Reason Start Date Expiration Date Visits Requested Visits Authorized [id number] Pending Review Auto-Generat ed Referral 08/05/2021 09/04/[address] [facility] for referral (narrative)* Diagnostic Procedure Only (Routine) - Pending Review Specialty Diagnoses / Procedures Referred By Contac t Referred To Contact BR IMAGING Diagnoses Encounter for screening mammogram for breast cancer Procedures SHAHRAM SCREENING SCREENING MAMMOGRAPHY BI 2-VIEW BREAST INC CAD Jovany Rizzo PA-C [address] [place] [address] [facility] [address] [place] [address] Referral ID Status Reason Start Date Expiration Date Visits Requested Visits Authorized [id number] Pending Review Auto-Generat ed Referral 07/07/2022 08/06/[address] [facility] for referral (narrative)* Diagnostic Procedure Only (Routine) - Closed Specialty Diagnoses / Procedures Referred By Contac t Referred To Contact US IMAGING Diagnoses Thyroid nodule Procedures US THYROID/PARATHYROID US SOFT TISSUE HEAD & NECK REAL TIME IMGE Jovany Saunders PA-C [address] [place] [address] [place] [address] Referral ID Status Reason Start Date Expiration Date V isits Requested Visits Authorized [id number] Closed Auto-Generate d Referral 05/19/2022 06/18/2023 1 1 [facility] Summary Purpose Family History No Family History Records FoundNo Family History Records Found Advance Directives Documents on File Type Date Recorded Patient Retail Attendant Expl anation Advance Directive(s) Advance Directive(s) 03/21/2015 4:30 PM Documents on File Type Date Recorded Patient Retail Attendant Expl anation Advance Directive(s) Advance Directive(s) 03/21/2015 4:30 PM Reason for Referral Specialty Diagnoses / Procedures Referred By Contac t Referred To Contact Cardiology Diagnoses SOB (shortness of breath) Procedures CONSULT TO CARDIOLOGY OFFICE/OUTPATIENT [facility] 60-74 MINUTES Samson Hogan MD [address] [place] [address] Referral ID Status Reason Start Date Expiration Date Visits Requested Visits Authorized [id number] Authorized PCP Requested Referral 06/01/2021 06/01/2022 1 1 Specialty Diagnoses / Procedures Referred By Arianaac t Referred To Contact MR IMAGING Diagnoses Liver mass Procedures MRI LIVER WO/W IVCON MRI ABDOMEN W/O & W/CONTRAST MATERIAL Samson Hogan MD [address] [id number] Mr [facility] Referral ID Status Reason Start Date Expiration Date Visits Requested Visits Authorized [id number] Pending Review Auto-Generat ed Referral 06/10/2021 07/10/2022 1 1 Specialty Diagnoses / Procedures Referred By Di t Referred To Contact Nutrition Diagnoses Type 2 diabetes mellitus without complication, with long-term current use of insulin (HCC) Procedures CONSULT TO NUTRITION THERAPY OFFICE/OUTPATIENT NEW HIGH MDM 60-74 MINUTES Samson Hogan MD [address] [phone] Referral ID Status Reason Start Date Expiration Date Visits Requested Visits Authorized [id number] Authorized PCP Requested Referral 06/02/2021 06/02/2022 1 1 Specialty Diagnoses / Procedures Referred By Arianaac t Referred To Contact Gynecology Diagnoses Low libido Screening for cervical cancer Procedures CONSULT TO GYNECOLOGY OFFICE/OUTPATIENT NEW HIGH MDM 60-74 MINUTES Jovany Rizzo PA-C [address] [id number] Referral ID Status Reason Start Date Expiration Date Visits Requested Visits Authorized [id number] Authorized PCP Requested Referral Auto-Generate d Referral 09/24/2021 09/24/2022 1 1 Specialty Diagnoses / Procedures Referred By Contac t Referred To Contact Ophthalmology Diagnoses Type 2 diabetes mellitus without complication, with long-term current use of insulin (HCC) Procedures CONSULT TO OPHTHALMOLOGY OFFICE/OUTPATIENT NEW HIGH MDM 60-74 MINUTES Jovany Rizzo PA-C [address] [place] [address] Referral ID Status Reason Start Date Expiration Date Visits Requested Visits Authorized [id number] Authorized PCP Requested Referral 09/24/2021 09/24/2022 1 1 Specialty Diagnoses / Procedures Referred By Contac t Referred To Contact Diagnoses Type 2 diabetes mellitus without complication, with long-term current use of insulin (HCC) Jovany Rizzo PA-C [address] [place] [address] Referral ID Status Reason Start Date Expiration Date Visits Re quested Visits Authorized [id number] Closed 1 1 Referral ID Status Reason Start Date Expiration Date Visits Re quested Visits Authorized [id number] Closed 1 1 Referral ID Status Reason Start Date Expiration Date Visits Re quested Visits Authorized [id number] Closed 1 1 Referral ID Status Reason Start Date Expiration Date Visits Re quested Visits Authorized [id number] Closed 1 1 Specialty Diagnoses / Procedures Referred By Contac t Referred To Contact Nephrology Diagnoses Albuminuria Type 2 diabetes mellitus with other specified complication, with long-term current use of insulin ([facility]) Procedures CONSULT TO NEPHROLOGY OFFICE/OUTPATIENT NEW HIGH MDM 60-74 MINUTES Jovany Rizzo PA-C [address] [place] [address] Referral ID Status Reason Start Date Expiration Date Visits Requested Visits Authorized [id number] Authorized PCP Requested Referral 10/25/2021 10/25/2022 1 1 Specialty Diagnoses / Procedures Referred By Contac t Referred To Contact Diagnoses Type 2 diabetes mellitus without complication, with long-term current use of insulin ([facility]) Samson Hogan MD [address] [place] [address] Referral ID Status Reason Start Date Expiration Date Visits Re quested Visits Authorized [id number] Closed 1 1 Referral ID Status Reason Start Date Expiration Date Visits Re quested Visits Authorized [id number] Closed 1 1 Specialty Diagnoses / Procedures Referred By Contac t Referred To Contact CT IMAGING Diagnoses Lung nodules Ground glass opacity present on imaging of lung Procedures CT CHEST WO IVCON DIAGNOSTIC COMPUTED TOMOGRAPHY THORAX W/O Patti Goss MD [address] [place] [address] Ct Imaging Referral ID Status Reason Start Date Expiration Date Visits Requested Visits Authorized [id number] Pending Review Auto-Generat ed Referral 05/18/2023 06/16/2023 1 1 Referral ID Status Reason Start Date Expiration Date Visits Re quested Visits Authorized [id number] Closed 1 1 Specialty Diagnoses / Procedures Referred By Contac t Referred To Contact Endocrinology Diagnoses Type 2 diabetes mellitus without complication, with long-term current use of insulin (HCC) Procedures CONSULT TO ENDOCRINOLOGY OFFICE/OUTPATIENT [facility] 60-74 MINUTES Samson Hogan MD [address] [place] [address] Referral ID Status Reason Start Date Expiration Date Visits Requested Visits Authorized [id number] Authorized PCP Requested Referral 07/21/2022 07/21/2023 1 1 Referral ID Status Reason Start Date Expiration Date Visits Re quested Visits Authorized [id number] Closed 1 1 Referral ID Status Reason Start Date Expiration Date Visits Re quested Visits Authorized [id number] Closed 1 1 Specialty Diagnoses / Procedures Referred By Contac t Referred To Contact General Surgery Diagnoses Thyroid nodule greater than or equal to 1 cm in diameter incidentally noted on imaging study Procedures CONSULT TO GENERAL SURGERY OFFICE/OUTPATIENT [facility] 60-74 MINUTES Jovany Rizzo PA-C [address] [place] [address] Referral ID Status Reason Start Date Expiration Date Visits Requested Visits Authorized [id number] Authorized PCP Requested Referral 3 11/27/2023 1 1 Specialty Diagnoses / Procedures Referred By Contac t Referred To Contact CT IMAGING Diagnoses Lung nodules Cigarette smoker History of renal cell cancer Procedures CT CHEST WO IVCON DIAGNOSTIC COMPUTED TOMOGRAPHY THORAX W/O Patti Goss MD [address] [place] [address] [place] [address] Referral ID Status Reason Start Date Expiration Date V isits Requested Visits Authorized [id number] Closed Auto-Generate d Referral 03/16/2022 05/15/2022 1 1 Referral ID Status Reason Start Date Expiration Date Visits Re quested Visits Authorized [id number] Closed 1 1 Additional Source Comments INFORMATION SOURCE (unrecogn ized section and content) DATE CREATED AUTHOR AUTHOR'S JAYY PERSAUD 11/29/2022 [facility] Source Comments (unrecognize d section and content) In the event this informatio n is protected by the Federal Confidentiality of Alcohol and Drug Abuse Patient Records regulations: The Federal rules restrict any use of the information to criminally investigate or prosecute any alcohol or drug abuse patient.[facility] the event this information is protected by the Federal Confidentiality of Alcohol and Drug Abuse Patient Records regulations: The Federal rules restrict any use of the information to criminally investigate or prosecute any alcohol or drug abuse patient.[facility] the event this information is protected by the Federal Confidentiality of Alcohol and Drug Abuse Patient Records regulations: The Federal rules restrict any use of the information to criminally investigate or prosecute any alcohol or drug abuse patient.[facility] the event this information is protected by the Federal Confidentiality of Alcohol and Drug Abuse Patient Records regulations: The Federal rules restrict any use of the information to criminally investigate or prosecute any alcohol or drug abuse patient.[facility] the event this information is protected by the Federal Confidentiality of Alcohol and Drug Abuse Patient Records regulations: The Federal rules restrict any use of the information to criminally investigate or prosecute any alcohol or drug abuse patient.[facility] the event this information is protected by the Federal Confidentiality of Alcohol and Drug Abuse Patient Records regulations: The Federal rules restrict any use of the information to criminally investigate or prosecute any alcohol or drug abuse patient.[facility] the event this information is protected by the Federal Confidentiality of Alcohol and Drug Abuse Patient Records regulations: The Federal rules restrict any use of the information to criminally investigate or prosecute any alcohol or drug abuse patient.[facility] the event this information is protected by the Federal Confidentiality of Alcohol and Drug Abuse Patient Records regulations: The Federal rules restrict any use of the information to criminally investigate or prosecute any alcohol or drug abuse patient.[facility] the event this information is protected by the Federal Confidentiality of Alcohol and Drug Abuse Patient Records regulations: The Federal rules restrict any use of the information to criminally investigate or prosecute any alcohol or drug abuse patient.[facility] the event this information is protected by the Federal Confidentiality of Alcohol and Drug Abuse Patient Records regulations: The Federal rules restrict any use of the information to criminally investigate or prosecute any alcohol or drug abuse patient.[facility] the event this information is protected by the Federal Confidentiality of Alcohol and Drug Abuse Patient Records regulations: The Federal rules restrict any use of the information to criminally investigate or prosecute any alcohol or drug abuse patient.[facility] the event this information is protected by the Federal Confidentiality of Alcohol and Drug Abuse Patient Records regulations: The Federal rules restrict any use of the information to criminally investigate or prosecute any alcohol or drug abuse patient.[facility] Center[facility] the event this information is protected by the Federal Confidentiality of Alcohol and Drug Abuse Patient Records regulations: The Federal rules restrict any use of the information to criminally investigate or prosecute any alcohol or drug abuse patient.[facility] the event this information is protected by the Federal Confidentiality of Alcohol and Drug Abuse Patient Records regulations: The Federal rules restrict any use of the information to criminally investigate or prosecute any alcohol or drug abuse patient.[facility] Center[facility] the event this information is protected by the Federal Confidentiality of Alcohol and Drug Abuse Patient Records regulations: The Federal rules restrict any use of the information to criminally investigate or prosecute any alcohol or drug abuse patient.[facility] Center[facility] the event this information is protected by the Federal Confidentiality of Alcohol and Drug Abuse Patient Records regulations: The Federal rules restrict any use of the information to criminally investigate or prosecute any alcohol or drug abuse patient.[facility] Center[facility] the event this information is protected by the Federal Confidentiality of Alcohol and Drug Abuse Patient Records regulations: The Federal rules restrict any use of the information to criminally investigate or prosecute any alcohol or drug abuse patient.[facility] Center[facility] the event this information is protected by the Federal Confidentiality of Alcohol and Drug Abuse Patient Records regulations: The Federal rules restrict any use of the information to criminally investigate or prosecute any alcohol or drug abuse patient.[facility] Center[facility] the event this information is protected by the Federal Confidentiality of Alcohol and Drug Abuse Patient Records regulations: The Federal rules restrict any use of the information to criminally investigate or prosecute any alcohol or drug abuse patient.[facility] Center[facility] the event this information is protected by the Federal Confidentiality of Alcohol and Drug Abuse Patient Records regulations: The Federal rules restrict any use of the information to criminally investigate or prosecute any alcohol or drug abuse patient.[facility] Center[facility] the event this information is protected by the Federal Confidentiality of Alcohol and Drug Abuse Patient Records regulations: The Federal rules restrict any use of the information to criminally investigate or prosecute any alcohol or drug abuse patient.[facility] Center[facility] the event this information is protected by the Federal Confidentiality of Alcohol and Drug Abuse Patient Records regulations: The Federal rules restrict any use of the information to criminally investigate or prosecute any alcohol or drug abuse patient.[facility] CenterIn the event this information is protected by the Federal Confidentiality of Alcohol and Drug Abuse Patient Records regulations: The Federal rules restrict any use of the information to criminally investigate or prosecute any alcohol or drug abuse patient.[facility] CenterIn the event this information is protected by the Federal Confidentiality of Alcohol and Drug Abuse Patient Records regulations: The Federal rules restrict any use of the information to criminally investigate or prosecute any alcohol or drug abuse patient.[facility] CenterIn the event this information is protected by the Federal Confidentiality of Alcohol and Drug Abuse Patient Records regulations: The Federal rules restrict any use of the information to criminally investigate or prosecute any alcohol or drug abuse patient.[facility] CenterIn the event this information is protected by the Federal Confidentiality of Alcohol and Drug Abuse Patient Records regulations: The Federal rules restrict any use of the information to criminally investigate or prosecute any alcohol or drug abuse patient.[facility] CenterIn the event this information is protected by the Federal Confidentiality of Alcohol and Drug Abuse Patient Records regulations: The Federal rules restrict any use of the information to criminally investigate or prosecute any alcohol or drug abuse patient.[facility] CenterIn the event this information is protected by the Federal Confidentiality of Alcohol and Drug Abuse Patient Records regulations: The Federal rules restrict any use of the information to criminally investigate or prosecute any alcohol or drug abuse patient.[facility] CenterIn the event this information is protected by the Federal Confidentiality of Alcohol and Drug Abuse Patient Records regulations: The Federal rules restrict any use of the information to criminally investigate or prosecute any alcohol or drug abuse patient.[facility] CenterIn the event this information is protected by the Federal Confidentiality of Alcohol and Drug Abuse Patient Records regulations: The Federal rules restrict any use of the information to criminally investigate or prosecute any alcohol or drug abuse patient.[facility] CenterIn the event this information is protected by the Federal Confidentiality of Alcohol and Drug Abuse Patient Records regulations: The Federal rules restrict any use of the information to criminally investigate or prosecute any alcohol or drug abuse patient.[facility] CenterIn the event this information is protected by the Federal Confidentiality of Alcohol and Drug Abuse Patient Records regulations: The Federal rules restrict any use of the information to criminally investigate or prosecute any alcohol or drug abuse patient.[facility] CenterIn the event this information is protected by the Federal Confidentiality of Alcohol and Drug Abuse Patient Records regulations: The Federal rules restrict any use of the information to criminally investigate or prosecute any alcohol or drug abuse patient.[facility] CenterIn the event this information is protected by the Federal Confidentiality of Alcohol and Drug Abuse Patient Records regulations: The Federal rules restrict any use of the information to criminally investigate or prosecute any alcohol or drug abuse patient.[facility] CenterIn the event this information is protected by the Federal Confidentiality of Alcohol and Drug Abuse Patient Records regulations: The Federal rules restrict any use of the information to criminally investigate or prosecute any alcohol or drug abuse patient.[facility] CenterIn the event this information is protected by the Federal Confidentiality of Alcohol and Drug Abuse Patient Records regulations: The Federal rules restrict any use of the information to criminally investigate or prosecute any alcohol or drug abuse patient.[facility] CenterIn the event this information is protected by the Federal Confidentiality of Alcohol and Drug Abuse Patient Records regulations: The Federal rules restrict any use of the information to criminally investigate or prosecute any alcohol or drug abuse patient.[facility] CenterIn the event this information is protected by the Federal Confidentiality of Alcohol and Drug Abuse Patient Records regulations: The Federal rules restrict any use of the information to criminally investigate or prosecute any alcohol or drug abuse patient.[facility] CenterIn the event this information is protected by the Federal Confidentiality of Alcohol and Drug Abuse Patient Records regulations: The Federal rules restrict any use of the information to criminally investigate or prosecute any alcohol or drug abuse patient.[facility] CenterIn the event this information is protected by the Federal Confidentiality of Alcohol and Drug Abuse Patient Records regulations: The Federal rules restrict any use of the information to criminally investigate or prosecute any alcohol or drug abuse patient.[facility] CenterIn the event this information is protected by the Federal Confidentiality of Alcohol and Drug Abuse Patient Records regulations: The Federal rules restrict any use of the information to criminally investigate or prosecute any alcohol or drug abuse patient.[facility] CenterIn the event this information is protected by the Federal Confidentiality of Alcohol and Drug Abuse Patient Records regulations: The Federal rules restrict any use of the information to criminally investigate or prosecute any alcohol or drug abuse patient.[facility] CenterIn the event this information is protected by the Federal Confidentiality of Alcohol and Drug Abuse Patient Records regulations: The Federal rules restrict any use of the information to criminally investigate or prosecute any alcohol or drug abuse patient.[facility] CenterIn the event this information is protected by the Federal Confidentiality of Alcohol and Drug Abuse Patient Records regulations: The Federal rules restrict any use of the information to criminally investigate or prosecute any alcohol or drug abuse patient.[facility] CenterIn the event this information is protected by the Federal Confidentiality of Alcohol and Drug Abuse Patient Records regulations: The Federal rules restrict any use of the information to criminally investigate or prosecute any alcohol or drug abuse patient.[facility] CenterIn the event this information is protected by the Federal Confidentiality of Alcohol and Drug Abuse Patient Records regulations: The Federal rules restrict any use of the information to criminally investigate or prosecute any alcohol or drug abuse patient.[facility] CenterIn the event this information is protected by the Federal Confidentiality of Alcohol and Drug Abuse Patient Records regulations: The Federal rules restrict any use of the information to criminally investigate or prosecute any alcohol or drug abuse patient.[facility] CenterIn the event this information is protected by the Federal Confidentiality of Alcohol and Drug Abuse Patient Records regulations: The Federal rules restrict any use of the information to criminally investigate or prosecute any alcohol or drug abuse patient.[facility] CenterIn the event this information is protected by the Federal Confidentiality of Alcohol and Drug Abuse Patient Records regulations: The Federal rules restrict any use of the information to criminally investigate or prosecute any alcohol or drug abuse patient.[facility] CenterIn the event this information is protected by the Federal Confidentiality of Alcohol and Drug Abuse Patient Records regulations: The Federal rules restrict any use of the information to criminally investigate or prosecute any alcohol or drug abuse patient.[facility] CenterIn the event this information is protected by the Federal Confidentiality of Alcohol and Drug Abuse Patient Records regulations: The Federal rules restrict any use of the information to criminally investigate or prosecute any alcohol or drug abuse patient.[facility] CenterIn the event this information is protected by the Federal Confidentiality of Alcohol and Drug Abuse Patient Records regulations: The Federal rules restrict any use of the information to criminally investigate or prosecute any alcohol or drug abuse patient.[facility] CenterIn the event this information is protected by the Federal Confidentiality of Alcohol and Drug Abuse Patient Records regulations: The Federal rules restrict any use of the information to criminally investigate or prosecute any alcohol or drug abuse patient.[facility] CenterIn the event this information is protected by the Federal Confidentiality of Alcohol and Drug Abuse Patient Records regulations: The Federal rules restrict any use of the information to criminally investigate or prosecute any alcohol or drug abuse patient.[facility] CenterIn the event this information is protected by the Federal Confidentiality of Alcohol and Drug Abuse Patient Records regulations: The Federal rules restrict any use of the information to criminally investigate or prosecute any alcohol or drug abuse patient.[facility] CenterIn the event this information is protected by the Federal Confidentiality of Alcohol and Drug Abuse Patient Records regulations: The Federal rules restrict any use of the information to criminally investigate or prosecute any alcohol or drug abuse patient.[facility] CenterIn the event this information is protected by the Federal Confidentiality of Alcohol and Drug Abuse Patient Records regulations: The Federal rules restrict any use of the information to criminally investigate or prosecute any alcohol or drug abuse patient.[facility] CenterIn the event this information is protected by the Federal Confidentiality of Alcohol and Drug Abuse Patient Records regulations: The Federal rules restrict any use of the information to criminally investigate or prosecute any alcohol or drug abuse patient.[facility] CenterIn the event this information is protected by the Federal Confidentiality of Alcohol and Drug Abuse Patient Records regulations: The Federal rules restrict any use of the information to criminally investigate or prosecute any alcohol or drug abuse patient.[facility] CenterIn the event this information is protected by the Federal Confidentiality of Alcohol and Drug Abuse Patient Records regulations: The Federal rules restrict any use of the information to criminally investigate or prosecute any alcohol or drug abuse patient.[facility] CenterIn the event this information is protected by the Federal Confidentiality of Alcohol and Drug Abuse Patient Records regulations: The Federal rules restrict any use of the information to criminally investigate or prosecute any alcohol or drug abuse patient.[facility] CenterIn the event this information is protected by the Federal Confidentiality of Alcohol and Drug Abuse Patient Records regulations: The Federal rules restrict any use of the information to criminally investigate or prosecute any alcohol or drug abuse patient.[facility] CenterIn the event this information is protected by the Federal Confidentiality of Alcohol and Drug Abuse Patient Records regulations: The Federal rules restrict any use of the information to criminally investigate or prosecute any alcohol or drug abuse patient.[facility] CenterIn the event this information is protected by the Federal Confidentiality of Alcohol and Drug Abuse Patient Records regulations: The Federal rules restrict any use of the information to criminally investigate or prosecute any alcohol or drug abuse patient.[facility] CenterIn the event this information is protected by the Federal Confidentiality of Alcohol and Drug Abuse Patient Records regulations: The Federal rules restrict any use of the information to criminally investigate or prosecute any alcohol or drug abuse patient.[facility] CenterIn the event this information is protected by the Federal Confidentiality of Alcohol and Drug Abuse Patient Records regulations: The Federal rules restrict any use of the information to criminally investigate or prosecute any alcohol or drug abuse patient.[facility] CenterIn the event this information is protected by the Federal Confidentiality of Alcohol and Drug Abuse Patient Records regulations: The Federal rules restrict any use of the information to criminally investigate or prosecute any alcohol or drug abuse patient.[facility] CenterIn the event this information is protected by the Federal Confidentiality of Alcohol and Drug Abuse Patient Records regulations: The Federal rules restrict any use of the information to criminally investigate or prosecute any alcohol or drug abuse patient.[facility] CenterIn the event this information is protected by the Federal Confidentiality of Alcohol and Drug Abuse Patient Records regulations: The Federal rules restrict any use of the information to criminally investigate or prosecute any alcohol or drug abuse patient.[facility] CenterIn the event this information is protected by the Federal Confidentiality of Alcohol and Drug Abuse Patient Records regulations: The Federal rules restrict any use of the information to criminally investigate or prosecute any alcohol or drug abuse patient.[facility] Reason for Visit (unrecogniz ed section and content) Reason Onset Date Comments Refill Request 05/29/2021 Specialty Diagnoses / Procedures Referred By Di hardy Referred To Contact MR IMAGING Diagnoses Liver mass R16.0 (ICD-10-CM) - Liver mass Procedures MRI LIVER WO/W IVCON MRI,ABDOMEN,W&WO CONTRS MRI LIVER WO/W IVCON Samson Hogan MD [address] [place] [address] Mr Imaging Referral ID Status Reason Start [...] NECK REAL TIME IMGE Jovany Saunders PA-C [address] [place] [id number] [place] [address] Referral ID Status Reason Start Date Expiration Date V isits Requested Visits Authorized [id number] Closed Auto-Generate d Referral 05/19/2022 06/18/2023 [address] Specialty Diagnoses / Procedures Referred By Contac t Referred To Contact CT IMAGING Diagnoses Lung nodules Cigarette smoker History of renal cell cancer Procedures CT CHEST WO IVCON DIAGNOSTIC COMPUTED TOMOGRAPHY THORAX W/O Patti Goss MD [address] [place] [address] [place] [address] Referral ID Status Reason Start Date Expiration Date V isits Requested Visits Authorized [id number] Closed Auto-Generate d Referral 03/16/2022 05/15/2022 1 1 Reason Onset Date Comments Refill Request 12/27/2022 Reason Onset Date Comments Refill Request 01/17/2023 Reason Onset Date Comments Refill Request 01/28/2023 Care Teams (unrecognized sec tion and content) Nail Professional Relationship Specialty Start Date End Date Samson Hogan MD [address] [facility] [place] [address] PCP - General Family Practice [facility]/10/12 [facility] [address] [place] [address] Pharmacist Pharmacy 12/28/18 Nail Professional Relationship Specialty Start Date End Date Samson Hogan MD [address] [facility] [place] [address] PCP - General Family Practice 11/10/12 [facility] [address] [facility] [place] [address] Pharmacist Pharmacy 12/28/18 Nail Professional Relationship Specialty Start Date End Date Samson Hogan MD [address] [facility] [place] [address] PCP - General Family Practice 11/10/12 [facility] [address] [facility] [place] [address] Pharmacist Pharmacy 12/28/18 Nail Professional Relationship Specialty Start Date End Date Samson Hogan MD [address] [facility] [place] [address] PCP - General Family Practice 11/10/12 [facility] [address] [place] [address] Pharmacist Pharmacy 12/28/18 Nail Professional Relationship Specialty Start Date End Date Samson Hogan MD [address] [facility] [place] [address] PCP - General Family Practice 11/10/12 Mat Davidson, [facility] [address] [place] [address] Pharmacist Pharmacy 12/28/18 Nail Professional Relationship Specialty Start Date End Date Perez, Samson J, MD [address] [facility] [place] [address] PCP - General Family Practice 11/10/12 Mat Davidson, [facility] [address] [place] [address] Pharmacist Pharmacy 12/28/18 Nail Professional Relationship Specialty Start Date End Date Samson Hogan MD [address] [place] [address] PCP - General Family Practice 11/10/12 Mat Davidson, [facility] [address] [place] [address] Pharmacist Pharmacy 12/28/18 Nail Professional Relationship Specialty Start Date End Date Samson Hogan MD [address] [facility] [place] [address] PCP - General Family Practice 11/10/12 Mat Davidson, [facility] [address] [place] [address] Pharmacist Pharmacy 12/28/18 Nail Professional Relationship Specialty Start Date End Date Jovany Rizzo PA-C [address] [facility] [place] [address] PCP - General Family Practice 07/10/21 Mat Davidson, [facility] [address] [place] [address] Pharmacist Pharmacy 12/28/18 Nail Professional Relationship Specialty Start Date End Date Jovany Rizzo PA-C [address] [place] [address] PCP - General Family Practice 07/10/21 Mat Davidson, [facility] [address] [place] [address] Pharmacist Pharmacy 12/28/18 Nail Professional Relationship Specialty Start Date End Date Samson Hogan MD [address] [facility] [address] PCP - General Family Practice 11/10/12 07/09/21 [facility] [address] [facility] [address] Pharmacist Pharmacy 12/28/18 Nail Professional Relationship Specialty Start Date End Date Jovany Rizzo PA-C [address] [facility] [address] PCP - General Family Practice 07/10/21 Mat Davidson, [facility] [address] [facility] [place] [address] Pharmacist Pharmacy 12/28/18 Nail Professional Relationship Specialty Start Date End Date Jovany Rizzo PA-C [address] [facility] [address] PCP - General Family Practice 07/10/21 Mat Davidson, [facility] [address] [facility] [place] [address] Pharmacist Pharmacy 12/28/18 Nail Professional Relationship Specialty Start Date End Date Jovany Rizzo PA-C [address] [facility] [place] [address] PCP - General Family Practice 07/10/21 Mat Davidson, [facility] [address] [facility] [place] [address] Pharmacist Pharmacy 12/28/18 Nail Professional Relationship Specialty Start Date End Date Jovany Rizzo PA-C [address] [facility] [place] [address] PCP - General Family Practice 07/10/21 Mat Davidson, [facility] [address] [facility] [place] [address] Pharmacist Pharmacy 12/28/18 Nail Professional Relationship Specialty Start Date End Date Jovany Rizzo PA-C [address] [facility] [place] [address] PCP - General Family Practice 07/10/21 [facility] [address] [facility] [place] [address] Pharmacist Pharmacy 12/28/18 Nail Professional Relationship Specialty Start Date End Date Jovany Rizzo PA-C [address] [facility] [address] PCP - General Family Practice 07/10/21 [facility] [address] [facility] [address] Pharmacist Pharmacy 12/28/18 Nail Professional Relationship Specialty Start Date End Date Jovany Rizzo PA-C [address] [facility] [address] PCP - General Family Practice 07/10/21 Mat Davidson, [facility] [address] [facility] [place] [address] Pharmacist Pharmacy 12/28/18 Nail Professional Relationship Specialty Start Date End Date Jovany Rizzo PA-C [address] [facility] [address] PCP - General Family Practice 07/10/21 Mat Davidson, [facility] [address] [facility] [address] Pharmacist Pharmacy 12/28/18 Nail Professional Relationship Specialty Start Date End Date Jovany Rizzo PA-C [address] [place] [address] PCP - General Family Medicine 07/10/21 [facility] [address] [place] [address] Pharmacist Pharmacy 12/28/18 Nail Professional Relationship Specialty Start Date End Date Jovany Rizzo PA-C [address] [place] [address] PCP - General Family Medicine 07/10/21 Mat Davidson, [facility] [address] [place] [address] Pharmacist Pharmacy 12/28/18 Nail Professional Relationship Specialty Start Date End Date Jovany Rizzo PA-C [address] [place] [address] PCP - General Family Medicine 07/10/21 [facility] [place], [facility] [address] [place] [address] Pharmacist Pharmacy 12/28/18 Nail Professional Relationship Specialty Start Date End Date Jovany Rizzo PA-C [address] [place] [address] PCP - General Family Medicine 07/10/21 LeifMat [place], [facility] [address] [place] [address] Pharmacist Pharmacy 12/28/18 Nail Professional Relationship Specialty Start Date End Date Jovany Rizzo PA-C [address] [place] [address] PCP - General Family Medicine 07/10/21 Mat Davidson, [facility] [address] [place] [address] Pharmacist Pharmacy 12/28/18 Nail Professional Relationship Specialty Start Date End Date Jovany Rizoz PA-C [address] [place] [address] PCP - General Family Medicine 07/10/21 LeifMat [place], [facility] [address] [place] [address] Pharmacist Pharmacy 12/28/18 Nail Professional Relationship Specialty Start Date End Date Jovany Rizzo PA-C [address] [place] [address] PCP - General Family Medicine 07/10/21 Mat Davidson, [facility] [address] [place] [address] Pharmacist Pharmacy 12/28/18 Nail Professional Relationship Specialty Start Date End Date Jovany Rizzo PA-C [address] [facility] [place] [address] PCP - General Family Medicine 07/10/21 StuartBenbell, [facility] [address] [place] [address] Pharmacist Pharmacy 12/28/18 Nail Professional Relationship Specialty Start Date End Date Jovany Rizzo PA-C [address] [place] [address] PCP - General Family Medicine 07/10/21 Mat Davidson, [facility] [address] [place] [address] Pharmacist Pharmacy 12/28/18 Nail Professional Relationship Specialty Start Date End Date Jovany Rizzo PA-C [address] [place] [address] PCP - General Family Medicine 07/10/21 Mat Davidson, [facility] [address] [place] [address] Pharmacist Pharmacy 12/28/18 Nail Professional Relationship Specialty Start Date End Date Jovany Rizzo PA-C [address] [place] [address] PCP - General Family Medicine 07/10/21 Mat Davidson, [facility] [address] [place] [address] Pharmacist Pharmacy 12/28/18 Nail Professional Relationship Specialty Start Date End Date Jovany Rizzo PA-C [address] [place] [address] PCP - General Family Medicine 07/10/21 Mat Davidson, [facility] [address] [place] [address] Pharmacist Pharmacy 12/28/18 Nail Professional Relationship Specialty Start Date End Date Jovany Rizzo PA-C [address] [place] [address] PCP - General Family Medicine 07/10/21 Mat Davidson, [facility] [address] [place] [address] Pharmacist Pharmacy 12/28/18 Nail Professional Relationship Specialty Start Date End Date Jovany Rizzo PA-C [address] [place] [address] PCP - General Family Medicine 07/10/21 Mat Davidson, [facility] [address] [place] [address] Pharmacist Pharmacy 12/28/18 Nail Professional Relationship Specialty Start Date End Date Jovany Rizzo PA-C [address] [place] [address] PCP - General Family Medicine 07/10/21 Mat Davidson, [facility] [address] [facility] [address] Pharmacist Pharmacy 12/28/18 Nail Professional Relationship Specialty Start Date End Date Jovany Rizzo PA-C [address] [facility] [address] PCP - General Family Medicine 07/10/21 [facility] [address] [facility] [address] Pharmacist Pharmacy 12/28/18 Nail Professional Relationship Specialty Start Date End Date Jovany Rizzo PA-C [address] [place] [address] PCP - General Family Medicine 07/10/21 [facility] [address] [place] [address] Pharmacist Pharmacy 12/28/18 Nail Professional Relationship Specialty Start Date End Date Jovany Rizzo PA-C [address] [place] [address] PCP - General Family Medicine 07/10/21 [facility] [address] [place] [address] Pharmacist Pharmacy 12/28/18 Nail Professional Relationship Specialty Start Date End Date Jovany Rizzo PA-C [address] [place] [address] PCP - General Family Medicine 07/10/21 [facility] [address] [place] [address] Pharmacist Pharmacy 12/28/18 Nail Professional Relationship Specialty Start Date End Date Jovany Rizzo PA-C [address] [place] [address] PCP - General Family Medicine 07/10/21 [facility] [address] [facility] [address] Pharmacist Pharmacy 12/28/18 Nail Professional Relationship Specialty Start Date End Date Jovany Rizzo PA-C [address] [facility] [place] [address] PCP - General Family Medicine 07/10/21 [facility] [address] [facility] [address] Pharmacist Pharmacy 12/28/18 Nail Professional Relationship Specialty Start Date End Date Jovany Rizzo PA-C [address] [facility] [place] [address] PCP - General Family Medicine 07/10/21 [facility] [address] [facility] [address] Pharmacist Pharmacy 12/28/18 Nail Professional Relationship Specialty Start Date End Date Jovany Rizzo PA-C [address] [facility] [place] [address] PCP - General Family Medicine 07/10/21 [facility] [address] [facility] [address] Pharmacist Pharmacy 12/28/18 Nail Professional Relationship Specialty Start Date End Date Jovany Rizzo PA-C [address] [place] [address] PCP - General Family Medicine 07/10/21 [facility] [address] [facility] [address] Pharmacist Pharmacy 12/28/18 Nail Professional Relationship Specialty Start Date End Date Jovany Rizzo PA-C [address] [place] [address] PCP - General Family Medicine 07/10/21 Mat Davidson, [facility] [address] [facility] [place] [address] Pharmacist Pharmacy 12/28/18 Nail Professional Relationship Specialty Start Date End Date Jovany Rizzo PA-C [address] [facility] [place] [address] PCP - General Family Medicine 07/10/21 Mat Davidson, [facility] [address] [facility] [place] [address] Pharmacist Pharmacy 12/28/18 Nail Professional Relationship Specialty Start Date End Date Jovany Rizzo PA-C [address] [facility] [place] [address] PCP - General Family Medicine 07/10/21 Mat Davidson, [facility] [address] [facility] [place] [address] Pharmacist Pharmacy 12/28/18 Nail Professional Relationship Specialty Start Date End Date Jovany Rizzo PA-C [address] [facility] [place] [address] PCP - General Family Medicine 07/10/21 Mat Davidson, [facility] [address] [place] [address] Pharmacist Pharmacy 12/28/18 Nail Professional Relationship Specialty Start Date End Date Jovany Rizzo PA-C [address] [facility] [place] [address] PCP - General Family Medicine 07/10/21 Mat Davidson, [facility] [address] [facility] [place] [address] Pharmacist Pharmacy 12/28/18 Nail Professional Relationship Specialty Start Date End Date Jovany Rizzo PA-C [address] [facility] [place] [address] PCP - General Family Medicine 07/10/21 Mat Davidson, [facility] [address] [facility] [place] [address] Pharmacist Pharmacy 12/28/18 Nail Professional Relationship Specialty Start Date End Date Jovany Rizzo PA-C [address] [facility] [place] [address] PCP - General Family Medicine 07/10/21 Mat Davidson, [facility] Pharmacist Pharmacy 12/28/18 Nail Professional Relationship Specialty Start Date End Date Jovany Rizzo PA-C [address] [facility] [place] [address] PCP - General Family Medicine 07/10/21 Mat Davidson, [facility] Pharmacist Pharmacy 12/28/18 Nail Professional Relationship Specialty Start Date End Date Jovany Rizzo PA-C [address] [facility] [place] [address] PCP - General Family Medicine 07/10/21 Mat Davidson, [facility] Pharmacist Pharmacy 12/28/18 Nail Professional Relationship Specialty Start Date End Date Jovany Rizzo PA-C [address] [facility] [place] [address] PCP - General Family Medicine 07/10/21 Mat Davidson, [facility] Pharmacist Pharmacy 12/28/18 FOR RECORDS PERTAINING TO [...] BE BASED ON THE PRIMARY CLINICAL RECORDS. [employer] provides no warranty or guarantee of the accuracy or completeness of information in this document.
--- OUTSIDE RECORDS SUMMARY | 2023-02-25 20:06 | XMS RPT_ITS | CCD ---
Author Name Unknown Address [address] [place] [address] Organization [facility] Care Team Providers Care Handy Worker Name Role Phone Samson Hogan MD Primary Care Provider [facility], [place] Unavailable Jovany Rizzo PA-C Primary Care Provider Samson Hogan MD Primary Care Provider [facility], [place] Unavailable Jovany Rizzo PA-C Primary Care Provider [facility], [place] Unavailable RizzoJovany sheldon PA-C Primary Care Provider [facility], [place] Unavailable Jovany Rizzo PA-C Primary Care [...] Unavailable RIZZO, M SALUD Primary Care Unavailable [facility], [place] Unavailable Allergies Allergy Classification Reported Allergen(s) Allergy Type Date of Onset Reaction(s) Facility (20 sources) Ketorolac; Translations: [KETOROLAC TROMETHAMINE] Drug Allergy 11-24-2007 [facility] Work Phone: (20 sources) Morphine; Translations: [MORPHINE] Drug Allergy 10-14-2010 Itching [facility] (20 sources) Tetanus And Diphtheria Toxoids, Adsorbed, Adult; Translations: [TETANUS AND DIPHTHERIA TOXOIDS, ADSORBED, ADULT] Drug Allergy 11-10-2012 Other: See Comments [facility] Work Phone: (18 sources) empagliflozin; Translations: [EMPAGLIFLOZIN] Drug Allergy 07-23-2022 Itching [facility] Medications Current Medications Medication Drug [...] 144.7 kg NA Rizzo PA-C Work Phone: [facility] 11-26-2022 09:38-0400 Diastolic blood pressure 74 mm[Hg] NA Rizzo PA-C Work Phone: [facility] 11-26-2022 09:38-0400 Heart rate 71 /min NA Rizzo PA-C Work Phone: [facility] 11-26-2022 09:38-0400 Respiratory rate 16 /min NA Rizzo PA-C Work Phone: [facility] 11-26-2022 09:38-0400 SaO2% (BldA) [Mass fraction] 92 % NA Rizzo PA-C Work Phone: [facility] 11-26-2022 09:38-0400 Systolic blood pressure 130 mm[Hg] NA Rizzo PA-C Work Phone: [facility] 07-23-2022 09:30-0400 Body temperature 97.9 [degF] Maryann Benjamin MANAGER GRANT.TELEGRAPH EQUIPMENT MAINTAINER Work Phone: [facility] 07-23-2022 09:30-0400 Diastolic blood pressure 78 mm[Hg] Maryann Benjamin MANAGER GRANT.TELEGRAPH EQUIPMENT MAINTAINER Work Phone: [facility] 07-23-2022 09:30-0400 Heart rate 80 /min Maryann Benjamin MANAGER GRANT.TELEGRAPH EQUIPMENT MAINTAINER Work Phone: [facility] 07-23-2022 09:30-0400 Respiratory rate 18 /min Maryann Benjamin MANAGER GRANT.TELEGRAPH EQUIPMENT MAINTAINER Work Phone: [facility] 07-23-2022 09:30-0400 SaO2% (BldA) [Mass fraction] 98 % Maryann Benjamin MANAGER GRANT.TELEGRAPH EQUIPMENT MAINTAINER Work Phone: [facility] 07-23-2022 09:30-0400 Systolic blood pressure 132 mm[Hg] Maryann Benjamin MANAGER GRANT.TELEGRAPH EQUIPMENT MAINTAINER Work Phone: [facility] Encounters Encounter Date Encounter Type Care Provider Facility Start: 01-28-2023 Refpaul sheldon PA-C Work Phone: [facility] Procedures Date Procedure Procedure Detail Performing Clinician Start: 11-22-2022 Us soft tissue head & neck real time imge galina Rizzo PA-C Work Phone: Start: 05-13-2022 Ct thorax w/o contra st material Patti Gallegos MD Work Phone: Start: 03-31-2017 Mammography Leeroy bañuelos MD Work Phone: Plan of Treatment Date Care Activity Detail Author Start: 11-27-2023 Annual PCP Team Legal Nurse Consultant salomon Disease Visit Annual PCP Team Chronic Disease Visit [facility] Start: 11-27-2023 Hepatitis B Vaccine (1 of 3 - 3-dose series) Hepatitis B Vaccine (1 of 3 - 3-dose series) [facility] Immunizations Immunization Date Immunization Notes Care Provider Fa cili 06-16-2021 COVID-19 vaccine, ag e 12+ yr ([employer] [facility]) Samson Hogan MD Work Phone: [facility] 04-29-2020 influenza, seasonal, injectable, preservative free Leeroy Jacobs MD Work Phone: [facility] Work Phone: 04-29-2020 influenza virus vacc ine, unspecified formulation MARIIA Rizzo PA-C Work Phone: [facility] 12-27-2018 influenza, injectabl e, quadrivalent, contains preservative Leeroy Jacobs MD Work Phone: [facility] 04-10-2018 influenza, injectabl e, quadrivalent, contains preservative Leeroy Jacobs MD Work Phone: [facility] 01-17-2017 influenza, injectabl e, quadrivalent, contains preservative Leeroy Jacobs MD Work Phone: [facility] 02-04-2016 influenza, injectabl e, quadrivalent, contains preservative Leeroy Jacobs MD Work Phone: [facility] 02-04-2016 pneumococcal polysaccharide vaccine, 23 valent Leeroy Jacobs MD Work Phone: [facility] 12-14-2014 influenza, injectabl e, quadrivalent, contains preservative Leeroy Jacobs MD Work Phone: [facility] 12-14-2014 influenza, seasonal, injectable Samson Hogan MD Work Phone: [facility] 12-10-2013 influenza, seasonal, injectable Leeroy Jacobs MD Work Phone: [facility] 11-10-2012 influenza virus vacc ine, unspecified formulation Leeroy Jacobs MD Work Phone: [facility] Payers Date Payer Category Payer Medicaid [id number] 2017 Medicaid [employer] [facility] [id number] 2017-Present [phone] [address] [place] [address] Medicaid [id number] 2017 Medicaid [id number] 2017 Medicaid [id number] Social History Date Type Detail Facility Start: 12-06-1979 End: 03-11-2022 Tobacco smoking status ARIS Smokes tobacco daily [facility] Start: 12-06-1979 History of tobacco use Cigarette Smo ker [facility] Start: 01-19-2021 End: 11-26-2022 Alcohol intake Current non-drinker of alcohol (finding) [facility] Start: 11-15-2019 End: 07-10-2021 History SDOH Alcohol Frequency 1 [facility] Start: 11-15-2019 End: 07-10-2021 History SDOH Alcohol Std Drinks 98 [facility] Start: 08-01-2019 History SDOH Social Connections Phone 4 [facility] Start: 08-01-2019 End: 07-10-2021 History SDOH Social Connections Get Together 2 [facility] Start: 08-01-2019 End: 05-21-2022 History SDOH Social Connections Living 3 [facility] Start: 08-01-2019 End: 07-10-2021 History SDOH Physical Activity DPW 5 [facility] Start: 08-01-2019 Education 8 [facility] Start: 11-15-2019 Tobacco Comment 11/15/2019 10- 15 cigs/day. TO [facility] Start: 1965 Sex Assigned At Not on file [facility] Start: 05-08-2021 End: 05-18-2021 Exposure to SARS-CoV-2 (event) Unable to assess [facility] Work Phone: Start: 04-20-2021 End: 07-10-2021 Exposure to SARS-CoV-2 (event) Not sure [facility] Start: 07-10-2021 History SDOH Physica l Activity DPW 0 [facility] Start: 07-16-2021 Tobacco Comment A pack or les s per day, depending on the day, 07/16/2021, TO [facility] Start: 07-16-2021 End: 08-11-2022 Cigarettes smoked current (pack per day) - Reported 2 [facility] Start: 07-16-2021 End: 03-11-2022 Tobacco use and exposure Smokeless tobacco non-user [facility] Work Phone: Start: 03-11-2022 [facility] Start: 05-21-2022 End: 08-11-2022 Social connection and isolation panel [facility] In a typical week, h ow many times do you talk on the telephone with family, friends, or neighbors? Patient refused [facility] Are you now , , , , never or living with a partner? Refused [facility] (I/We) worried juan miguel er (my/our) food would run out before (I/we) got money to buy more. DK or Refused [facility] Do you belong to any clubs or organizations such as worship groups, unions, fraternal or athletic groups, or school groups? No [facility] Are you now , , , , never or living with a partner? [facility] How often to you hav e a drink containing alcohol? Never [facility] How hard is it for y ou to pay for the very basics like food, housing, medical care, and heating Somewhat hard [facility] Do you feel stress - tense, restless, nervous, or anxious, or unable to sleep at night because your mind is troubled all the time - these days [OSQ] Only a little [facility] (I/We) worried wheth er (my/our) food would run out before (I/we) got money to buy more. Never true [facility] In the past 12 month s, was there a time when you were not able to pay the mortgage or rent on time? Yes [facility] Medical Equipment Procedure Code Equipment Code Equipment Origin al Text Equipment Identifier Dates Stent Uret Inlay 7f X 28cm - [id number] Start: 08-26-2009 Clinical Notes 09-18-2009 to [...] Dhara Naylor RN. documented in this encounter [facility] 01-17-2023 Miscellaneous Notes Patient calling to say she needs new script for Insulin. [facility] was out of medication and the script was transferred to [facility]. [facility] now has the medication in stock but [...] Marcy Pandya RN. documented in this encounter [facility] 12-27-2022 Miscellaneous Notes Rosa Maria Ruiz Obduliajoe is calling Jovany Rizzo PA-C today requesting Insulin [place], Disposable, (ULTICARE PEN NEEDLE) 29 gauge x 1/2. Refill Request Patient has been identified by name and birthdate. Duration of symptoms: N/A Person calling: self Call patient at: on cell [phone] (home) [phone] (cell) Was an appointment scheduled: No Closing statement: Results or non-symptom based questions: Thank you for calling [facility], your call will be returned within the next business day. Melissa Clements documented in this encounter [facility] 11-27-2022 Miscellaneous Notes Discussed at OV. Thyroid nodule with radiologist recommend for FNA Telephone on 11/27/22 CONSULT TO GENERAL SURGERY Gigi Saini PA-C documented in this encounter [facility] 11-26-2022 Note HNO ID: [id number] Author: Jovany Rizzo PA-C Service: ? Author Type: Physician Alteration Tailor Apprentice Type: Progress Notes Filed: 11/27/2022 10:47 AM [...] 11 cm with 20-minute ramp and humidification Associate Spa Director: Has established with Dr. Gallegos. Interval history: [...] daily with meals (more content not included)... [facility] 11-26-2022 History of Present illness Narrative 56 [...] <2.54 0.81 1.03 Pvd (peripheral vascular disease) ([facility]) Current medications: ASA 81 mg daily 01/15/2022 [...] 11 cm with 20-minute ramp and humidification Associate Spa Director: Has established with Dr. Gallegos. Interval history: [...] ABDOMEN W/ & W/O CONTRAST 10/16/2021 10/16/2021 [facility] MRI w/wo IVCON: no patterns to [...] 6 mL 4 flash glucose scanning reader ([employer] TER[employer]LL 2 READER) 1 Each four times [...] before evening meal 3 Each 5 Insulin [place], Disposable, (ULTICARE PEN NEEDLE) 29 gauge x [...] 64 YR, QUADRIVALENT (AFLURIA, FLULAVAL, FLUZONE) - [employer] COVID-19 VACCINE (2022- SEASON) AGE 12+ YR 18. Paronychia of finger of left hand - ICD9: 681.02, ICD10: L03.012 - Begin treatment with mupirocin three times a day until clear. - if worse call for oral ATB Use nail clipper rather than biting or ripping off hangnails. Jovany Rizzo PA-C documented in this encounter [facility] 11-22-2022 Note HNO ID: [id number] Author: Lorena Benjamin RDMS Service: ? Author Type: Senior Group Manager Type: Progress Notes Filed: 11/22/2022 12:58 PM [...] Benjamin RDMS November 22, 2022 12:58 PM [facility] 11-22-2022 History of Present illness Narrative Radiology [...] 2022 12:58 PM documented in this encounter [facility] 11-05-2022 Miscellaneous Notes Patient has [...] Jovany Rodriguez RN documented in this encounter [facility] 10-12-2022 Miscellaneous Notes Medication refill requested by [facility]. Requested Prescriptions Pending Prescriptions Disp Refills [...] Dhara Naylor RN documented in this encounter [facility] 10-06-2022 Miscellaneous Notes Pt notified [...] checked. Please advise documented in this encounter [facility] 10-01-2022 Miscellaneous Notes EDITA: 05/21/22 [...] advise. Bhargavi Groves documented in this encounter [facility] 09-30-2022 Note HNO ID: [id number] Author: Pilar Cardoza PA-C Service: ? Author Type: Physician Alteration Tailor Apprentice Type: Progress Notes Filed: 09/30/2022 9:42 AM [...] kit 1 Each four times daily. Insulin [place], Disposable, (ULTICARE PEN NEEDLE) 29 gauge x [...] mask Social Hi (more content not included)... [facility] 09-14-2022 Miscellaneous Notes Patient has been identified [...] Sharon Horan LPN documented in this encounter [facility] 08-13-2022 Miscellaneous Notes Medication refill [...] Dhara Naylor RN documented in this encounter [facility] 08-11-2022 Miscellaneous Notes Patient calls to request a new order for compression stockings be sent to [facility] [place]. Pended per request with previous diagnosis of venous insufficiency. Rakel Douglas RN documented in this encounter [facility] 08-05-2022 Miscellaneous Notes The following [...] Yesenia Blanco LPN documented in this encounter [facility] 07-29-2022 Miscellaneous Notes Patient was [...] said she is taking 2 antibiotics from [facility] for skin infection on her back. She has 3 and 1/2 days of both antibiotics left and now having yeast infection issues, vaginal itching and cream like discharge when wiping. Patient asking for diflucan rx. Patient uses [facility] for her pharmacy. Pending rx if wanted. [...] 08/03. Please advise documented in this encounter [facility] 07-23-2022 Note HNO ID: [id number] Author: Maryann Alexander APRN.TELEGRAPH EQUIPMENT MAINTAINER Service: ? Author Type: Nurse Practitioner Type: Progress Notes Filed: 07/23/2022 11:05 AM Note Text: Subjective The history is provided by the patient. No telegraphic typewriter operator was used. HPI Rosa aMria Menjivar is a 56 year old female [...] HISTORY Diagnosis Date Chronic hypoxemic respiratory failure ([facility]) 07/16/2021 Due to morbid obesity. COPD (chronic obstructive pulmonary disease) ([facility]) with chronic hypoxemic respiratory failure; on oxygen 2 liters continuously Degenerative disc disease Depression Diabetes mellitus type II Dyslipidemia Hypertension IBS (irritable bowel syndrome) Microalbuminuria on adwoa inhibitor Obesity Palpitations Panic disorder Renal calculus Renal cell carcinoma of right kidney ([facility]) 2009 S/P partial right nephrectomy Sleep apnea uses CPAP Tobacco abuse Urinary calculus, unspecified Renal stones I have confirmed and edited as necessary, the [facility] Review of Systems Constitutional: Negative for [...] detail warranting prompt ER evaluation. Maryann Alexander APRN.[facility] 07-23-2022 History of Present illness Narrative Images from the original note were not included. Subjective The history is provided by the patient. No telegraphic typewriter operator was used. HPI Rosa Maria Menjivar is [...] morbid obesity. COPD (chronic obstructive pulmonary disease) ([facility]) with chronic hypoxemic respiratory failure; on oxygen 2 liters continuously Degenerative disc disease Depression Diabetes mellitus type II Dyslipidemia Hypertension IBS (irritable bowel syndrome) Microalbuminuria on adwoa inhibitor Obesity Palpitations Panic disorder Renal calculus Renal cell carcinoma of right kidney ([facility]) 2009 S/P partial right nephrectomy Sleep apnea uses CPAP Tobacco abuse Urinary calculus, unspecified Renal stones I have confirmed and edited as necessary, the [facility] Review of Systems Constitutional: Negative for [...] detail warranting prompt ER evaluation. Maryann Alexander APRN.TELEGRAPH EQUIPMENT MAINTAINER documented in this encounter [facility] 07-22-2022 Miscellaneous Notes See MyChart message Dr Hogan asking to set up with endo PRE SALES NETWORK ENGINEER here in [place] ([place]). Thank you documented in this encounter [facility] 07-21-2022 Miscellaneous Notes Addended by: SAMSON HOGAN on: 07/21/2022 05:38 PM Modules accepted: Orders Set up with endo manpower development advisor documented in this encounter [facility] 07-07-2022 Note Patient Outreach (IN [facility]) ROSA MARIA MENJIVAR ([id number]) 1965 F Date Time Provider Department 07/07/22 [...] for screening mammogram for breast cancer [Z12.31] Order(s):[facility] SCREENING [1137531] Order #: [id number] FUTURE Prescriptions as of 07/12/2022 - blood [...] a week. - flash glucose scanning reader ([employer]YLE TERRELL 2 READER) 1 Each four times daily. - flash glucose sensor (FREESTYLE TERRELL 2 SENSOR) kit 1 Each four times daily. - Insulin [place], Disposable, (ULTICARE PEN NEEDLE) 29 gauge x [...] 05/03/2007 RENAL COLIC [N23] 05/03/2007 Urinary complications [VKV8104] 03/21/2008 11/19/2015 HYDRONEPHROSIS [N13.30] 03/21/2008 Acute kidney [...] nodules [R91.8] 09/14 (more content not included)... [facility] 06-29-2022 Miscellaneous Notes Patient said she uses a [employer] [facility] system, but her reading are much [...] Jennifer Ashley Pss documented in this encounter [facility] 06-25-2022 Miscellaneous Notes Last Office Visit: 05/21/2022 Future Office Visit: None Requested Prescriptions Pending Prescriptions Disp Refills venlafaxine ER (EFFEXOR XR) 150 mg 24 hr capsule 84 capsule 3 Sig: Take 1 capsule by mouth once daily. documented in this encounter [facility] 05-27-2022 Miscellaneous Notes Patient has [...] Jovany Rodriguez RN documented in this encounter [facility] 05-27-2022 Miscellaneous Notes Spoke with daughter and states that hasn't had any readings over she believes 150 in probably a week. Encouraged to keep up the good work. Advised to send readings in 3-4 days. Asking for us to send sliding scale in [employer] message so will do that for patient. [...] Jennifer Nugent LPN documented in this encounter [facility] 05-27-2022 Miscellaneous Notes Patient returned [...] calling: self Call patient at: on cell [phone] (home) [phone] (cell) Was an appointment scheduled: No Closing statement: Symptom Call: Thank you for calling [facility], your call is very important. A nurse will call in approximately 2-4 hours during business hours. If this is an emergency, please contact 911. Bernie Ayala documented in this encounter [facility] 05-24-2022 Miscellaneous Notes Patient notified [...] Please advise patient. documented in this encounter [facility] 05-21-2022 Note HNO ID: [id number] Author: Jovany Rizzo PA-C Service: ? Author Type: Physician Alteration Tailor Apprentice Type: Progress Notes Filed: 05/21/2022 11:22 AM Note Text: MyChart video visit was used for evaluation of this patient. Location of patient: [place] Patient was offered a virtual/telemedicine appointment in [...] visit. Either the patient or their legal enrollment eligibility representative has been informed of the risks [...] <2.54 0.81 1.03 Pvd (peripheral vascular disease) ([facility]) Current medications: ASA 81 mg daily 01/15/2022 PVR RABI 1.00, LABI 0.95 Chronic hypoxemic respiratory failure ([facility]) Chronic obstructive pulmonary disease, unspecified copd type ([facility]) Obstructive sleep apnea syndrome Lung nodules Current medications: O2 2 L/min nasal cannula continuous CPAP 11 cm with 20-minute ramp and humidification Associate Spa Director: Has established with Dr. Gallegos. Interval history: [...] complication, with long-term current use of insulin ([facility]) Albuminuria Current medications: Lispro 200 unit: 66 [...] couple lows at (more content not included)... [facility] 05-21-2022 History of Present illness Narrative [employer] video visit was used for evaluation of this patient. Location of patient: [place] Patient was offered a virtual/telemedicine appointment in [...] visit. Either the patient or their legal enrollment eligibility representative has been informed of the risks [...] 11 cm with 20-minute ramp and humidification Associate Spa Director: Has established with Dr. Gallegos. Interval history: [...] ABDOMEN W/ & W/O CONTRAST 10/16/2021 10/16/2021 [facility] MRI w/wo IVCON: no patterns to [...] four times daily. 6 Kit 3 Insulin [place], Disposable, (ULTICARE PEN NEEDLE) 29 gauge x [...] Jovany Rizzo PA-C documented in this encounter [facility] 05-13-2022 Note HNO ID: [id number] Author: RT Elda([place]) Service: ? Author Type: Senior Group Manager Type: Progress Notes Filed: 05/13/2022 9:29 AM [...] RT Ron(R) May 13, 2022 9:29 AM [facility] 05-13-2022 History of Present illness Narrative Radiology [...] 2022 9:29 AM documented in this encounter [facility] 04-29-2022 Miscellaneous Notes Patient has [...] Marcy Pandya, RN documented in this encounter [facility] 04-15-2022 Miscellaneous Notes Patient has [...] to the pharmacy. Please call patient at: [phone]. Janee Blanco Pss documented in this encounter [facility] 03-22-2022 Miscellaneous Notes Detailed message [...] Afia Lee RN documented in this encounter [facility] 03-11-2022 Note HNO ID: [id number] Author: Patti Gallegos MD Service: ? Author Type: Physician Type: Progress Notes Filed: 03/11/2022 3:41 PM Note Text: VIRTUAL VISIT PROGRESS NOTE This is a virtual visit using [employer] video visit. It required patient-provider interaction for [...] DATE OF EXAM: Jan 12 2021 1:22PM [facility] 0541 - CT CHEST WO IVCON / [...] ABDOMEN W/ AND W/O CONTRAST 10/16/2021 10/16/2021 [facility] MRI w/wo IVCON: no patterns to [...] (3 mL) injection (more content not included)... [facility] 03-05-2022 Miscellaneous Notes Attempted to contact patient re: [employer] VV at number listed. Left message. Patient is active on [employer] and has confirmed login today, are we using [employer] platform for VV today? Unable to do telephone visit. Would need to reschedule to [employer] VV or F2F. Brittney Pearl LPN Patient called in stating she would like to be called on this number [phone] for her virtual visit with Dr. Gallegos today. Kayla Gallegos LPN documented in this encounter [facility] 03-03-2022 Miscellaneous Notes Patient has [...] Marcy Pandya RN documented in this encounter [facility] 02-02-2022 Miscellaneous Notes Patient has [...] Shaila Anderson Pss documented in this encounter [facility] 01-05-2022 Miscellaneous Notes TC to [...] Shaila Anderson Pss documented in this encounter [facility] 12-11-2021 Miscellaneous Notes LV 09/24/21 [...] Ernestina Moses Pss documented in this encounter [facility] 12-10-2021 Miscellaneous Notes Patient has [...] Jovany Rodriguez RN documented in this encounter [facility] 11-11-2021 Miscellaneous Notes EDITA 09/24/21 [...] Gayle Benz [employer] documented in this encounter [facility] 11-02-2021 Miscellaneous Notes MRI in scanned documents To my knowledge, I have not yet seen it. It may have gone to scanning though. Thanks, Gigi Rizzo PA-C Pt called back checking to see if you have received a copy of her MRI done at [facility] in [place]. last week. She is going to give them a call and have them refax . Fax number given. Please advise pt with results . Yesenia Blanco LPN documented in this encounter [facility] 10-26-2021 Miscellaneous Notes Phoned patient [...] complication, with long-term current use of insulin ([facility]) Thanks, Gigi Rizzo PA-C documented in this encounter [facility] documented as of this encounter (statuses as of 10/25/2021) [facility]09-11[facility]2022 History of Past illness Narrative* Problem Noted Date Resolved Date Pancreatic cyst 10/25/2021 10/25/2021 Overview: Dehiscence of incision 09/18/2009 1 Surgical wound infection 09/18/2009 019 Malignant neoplasm of kidney excluding renal pel vis 11/21/2008 06/25/2015 Urinary complications 03/21/2008 11/19/2015 Acute kidney failure, unspecified 03/21/2008 01/17/2017 documented as of this encounter (statuses as of 11/02/2021) [facility] History of Past illness Narrative* Problem Noted Date Resolved Date Pancreatic cyst 10/25/2021 10/25/2021 Overview: Dehiscence of incision 09/18/2009 1 Surgical wound infection 09/18/2009 019 Malignant neoplasm of kidney excluding renal pel vis 11/21/2008 06/25/2015 Urinary complications 03/21/2008 11/19/2015 Acute kidney failure, unspecified 03/21/2008 01/17/2017 documented as of this encounter (statuses as of 11/12/2021) [facility] History of Past illness Narrative* Problem Noted Date Resolved Date Pancreatic cyst 10/25/2021 10/25/2021 Overview: Dehiscence of incision 09/18/2009 1 Surgical wound infection 09/18/2009 019 Malignant neoplasm of kidney excluding renal pel vis 11/21/2008 06/25/2015 Urinary complications 03/21/2008 11/19/2015 Acute kidney failure, unspecified 03/21/2008 01/17/2017 documented as of this encounter (statuses as of 12/10/2021) [facility] History of Past illness Narrative* Problem Noted Date Resolved Date Pancreatic cyst 10/25/2021 10/25/2021 Overview: Dehiscence of incision 09/18/2009 1 Surgical wound infection 09/18/2009 019 Malignant neoplasm of kidney excluding renal pel vis 11/21/2008 06/25/2015 Urinary complications 03/21/2008 11/19/2015 Acute kidney failure, unspecified 03/21/2008 01/17/2017 documented as of this encounter (statuses as of 12/12/2021) [facility] History of Past illness Narrative* Problem Noted Date Resolved Date Pancreatic cyst 10/25/2021 10/25/2021 Overview: Dehiscence of incision 09/18/2009 1 Surgical wound infection 09/18/2009 019 Malignant neoplasm of kidney excluding renal pel vis 11/21/2008 06/25/2015 Urinary complications 03/21/2008 11/19/2015 Acute kidney failure, unspecified 03/21/2008 01/17/2017 documented as of this encounter (statuses as of 01/06/2022) [facility] History of Past illness Narrative* Problem Noted Date Resolved Date Pancreatic cyst 10/25/2021 10/25/2021 Overview: Dehiscence of incision 09/18/2009 1 Surgical wound infection 09/18/2009 019 Malignant neoplasm of kidney excluding renal pel vis 11/21/2008 06/25/2015 Urinary complications 03/21/2008 11/19/2015 Acute kidney failure, unspecified 03/21/2008 01/17/2017 documented as of this encounter (statuses as of 01/14/2022) [facility] of Past illness Narrative* Problem Noted Date Resolved Date Pancreatic cyst 10/25/2021 10/25/2021 Overview: Dehiscence of incision 09/18/2009 1 Surgical wound infection 09/18/2009 019 Malignant neoplasm of kidney excluding renal pel vis 11/21/2008 06/25/2015 Urinary complications 03/21/2008 11/19/2015 Acute kidney failure, unspecified 03/21/2008 01/17/2017 documented as of this encounter (statuses as of 02/02/2022) [facility] History of Past illness Narrative* Problem Noted Date Resolved Date Pancreatic cyst 10/25/2021 10/25/2021 Overview: Dehiscence of incision 09/18/2009 1 Surgical wound infection 09/18/2009 019 Malignant neoplasm of kidney excluding renal pel vis 11/21/2008 06/25/2015 Urinary complications 03/21/2008 11/19/2015 Acute kidney failure, unspecified 03/21/2008 01/17/2017 documented as of this encounter (statuses as of 03/04/2022) [facility] History of Past illness Narrative* Problem Noted Date Resolved Date Pancreatic cyst 10/25/2021 10/25/2021 Overview: Dehiscence of incision 09/18/2009 1 Surgical wound infection 09/18/2009 019 Malignant neoplasm of kidney excluding renal pel vis 11/21/2008 06/25/2015 Urinary complications 03/21/2008 11/19/2015 Acute kidney failure, unspecified 03/21/2008 01/17/2017 documented as of this encounter (statuses as of 03/05/2022) [facility] History of Past illness Narrative* Problem Noted Date Resolved Date Pancreatic cyst 10/25/2021 10/25/2021 Overview: Dehiscence of incision 09/18/2009 1 Surgical wound infection 09/18/2009 019 Malignant neoplasm of kidney excluding renal pel vis 11/21/2008 06/25/2015 Urinary complications 03/21/2008 11/19/2015 Acute kidney failure, unspecified 03/21/2008 01/17/2017 documented as of this encounter (statuses as of 03/23/2022) [facility] History of Past illness Narrative* Problem Noted Date Resolved Date Pancreatic cyst 10/25/2021 10/25/2021 Overview: Dehiscence of incision 09/18/2009 1 Surgical wound infection 09/18/2009 019 Malignant neoplasm of kidney excluding renal pel vis 11/21/2008 06/25/2015 Urinary complications 03/21/2008 11/19/2015 Acute kidney failure, unspecified 03/21/2008 01/17/2017 documented as of this encounter (statuses as of 04/15/2022) [facility] History of Past illness Narrative* Problem Noted Date Resolved Date Pancreatic cyst 10/25/2021 10/25/2021 Overview: Dehiscence of incision 09/18/2009 1 Surgical wound infection 09/18/2009 019 Malignant neoplasm of kidney excluding renal pel vis 11/21/2008 06/25/2015 Urinary complications 03/21/2008 11/19/2015 Acute kidney failure, unspecified 03/21/2008 01/17/2017 documented as of this encounter (statuses as of 04/30/2022) [facility] History of Past illness Narrative* Problem Noted Date Resolved Date Pancreatic cyst 10/25/2021 10/25/2021 Overview: Dehiscence of incision 09/18/2009 1 Surgical wound infection 09/18/2009 019 Malignant neoplasm of kidney excluding renal pel vis 11/21/2008 06/25/2015 Urinary complications 03/21/2008 11/19/2015 Acute kidney failure, unspecified 03/21/2008 01/17/2017 documented as of this encounter (statuses as of 05/17/2022) [facility] of Past illness Narrative* Problem Noted Date Resolved Date Pancreatic cyst 10/25/2021 10/25/2021 Overview: Dehiscence of incision 09/18/2009 1 Surgical wound infection 09/18/2009 019 Malignant neoplasm of kidney excluding renal pel vis 11/21/2008 06/25/2015 Urinary complications 03/21/2008 11/19/2015 Acute kidney failure, unspecified 03/21/2008 01/17/2017 documented as of this encounter (statuses as of 05/21/2022) [facility] of Past illness Narrative* Problem Noted Date Resolved Date Pancreatic cyst 10/25/2021 10/25/2021 Overview: Dehiscence of incision 09/18/2009 1 Surgical wound infection 09/18/2009 019 Malignant neoplasm of kidney excluding renal pel vis 11/21/2008 06/25/2015 Urinary complications 03/21/2008 11/19/2015 Acute kidney failure, unspecified 03/21/2008 01/17/2017 documented as of this encounter (statuses as of 05/21/2022) [facility] History of Past illness Narrative* Problem Noted Date Resolved Date Pancreatic cyst 10/25/2021 10/25/2021 Overview: Dehiscence of incision 09/18/2009 1 Surgical wound infection 09/18/2009 019 Malignant neoplasm of kidney excluding renal pel vis 11/21/2008 06/25/2015 Urinary complications 03/21/2008 11/19/2015 Acute kidney failure, unspecified 03/21/2008 01/17/2017 documented as of this encounter (statuses as of 05/25/2022) [facility] of Past illness Narrative* Problem Noted Date Resolved Date Pancreatic cyst 10/25/2021 10/25/2021 Overview: Dehiscence of incision 09/18/2009 1 Surgical wound infection 09/18/2009 019 Malignant neoplasm of kidney excluding renal pel vis 11/21/2008 06/25/2015 Urinary complications 03/21/2008 11/19/2015 Acute kidney failure, unspecified 03/21/2008 01/17/2017 documented as of this encounter (statuses as of 05/28/2022) [facility] of Past illness Narrative* Problem Noted Date Resolved Date Pancreatic cyst 10/25/2021 10/25/2021 Overview: Dehiscence of incision 09/18/2009 1 Surgical wound infection 09/18/2009 019 Malignant neoplasm of kidney excluding renal pel vis 11/21/2008 06/25/2015 Urinary complications 03/21/2008 11/19/2015 Acute kidney failure, unspecified 03/21/2008 01/17/2017 documented as of this encounter (statuses as of 05/28/2022) [facility] of Past illness Narrative* Problem Noted Date Resolved Date Pancreatic cyst 10/25/2021 10/25/2021 Overview: Dehiscence of incision 09/18/2009 1 Surgical wound infection 09/18/2009 019 Malignant neoplasm of kidney excluding renal pel vis 11/21/2008 06/25/2015 Urinary complications 03/21/2008 11/19/2015 Acute kidney failure, unspecified 03/21/2008 01/17/2017 documented as of this encounter (statuses as of 05/28/2022) [facility] of Past illness Narrative* Problem Noted Date Resolved Date Pancreatic cyst 10/25/2021 10/25/2021 Overview: Dehiscence of incision 09/18/2009 1 Surgical wound infection 09/18/2009 019 Malignant neoplasm of kidney excluding renal pel vis 11/21/2008 06/25/2015 Urinary complications 03/21/2008 11/19/2015 Acute kidney failure, unspecified 03/21/2008 01/17/2017 documented as of this encounter (statuses as of 06/15/2022) [facility] of Past illness Narrative* Problem Noted Date Resolved Date Pancreatic cyst 10/25/2021 10/25/2021 Overview: Dehiscence of incision 09/18/2009 1 Surgical wound infection 09/18/2009 019 Malignant neoplasm of kidney excluding renal pel vis 11/21/2008 06/25/2015 Urinary complications 03/21/2008 11/19/2015 Acute kidney failure, unspecified 03/21/2008 01/17/2017 documented as of this encounter (statuses as of 06/28/2022) [facility] of Past illness Narrative* Problem Noted Date Resolved Date Pancreatic cyst 10/25/2021 10/25/2021 Overview: Dehiscence of incision 09/18/2009 1 Surgical wound infection 09/18/2009 019 Malignant neoplasm of kidney excluding renal pel vis 11/21/2008 06/25/2015 Urinary complications 03/21/2008 11/19/2015 Acute kidney failure, unspecified 03/21/2008 01/17/2017 documented as of this encounter (statuses as of 06/30/2022) [facility] History of Past illness Narrative* Problem Noted Date Resolved Date Pancreatic cyst 10/25/2021 10/25/2021 Overview: Dehiscence of incision 09/18/2009 1 Surgical wound infection 09/18/2009 019 Malignant neoplasm of kidney excluding renal pel vis 11/21/2008 06/25/2015 Urinary complications 03/21/2008 11/19/2015 Acute kidney failure, unspecified 03/21/2008 01/17/2017 documented as of this encounter (statuses as of 07/23/2022) [facility] of Past illness Narrative* Problem Noted Date Resolved Date Pancreatic cyst 10/25/2021 10/25/2021 Overview: Dehiscence of incision 09/18/2009 1 Surgical wound infection 09/18/2009 019 Malignant neoplasm of kidney excluding renal pel vis 11/21/2008 06/25/2015 Urinary complications 03/21/2008 11/19/2015 Acute kidney failure, unspecified 03/21/2008 01/17/2017 documented as of this encounter (statuses as of 07/12/2022) [facility] of Past illness Narrative* Problem Noted Date Resolved Date Pancreatic cyst 10/25/2021 10/25/2021 Overview: Dehiscence of incision 09/18/2009 1 Surgical wound infection 09/18/2009 019 Malignant neoplasm of kidney excluding renal pel vis 11/21/2008 06/25/2015 Urinary complications 03/21/2008 11/19/2015 Acute kidney failure, unspecified 03/21/2008 01/17/2017 documented as of this encounter (statuses as of 07/21/2022) [facility] of Past illness Narrative* Problem Noted Date Resolved Date Pancreatic cyst 10/25/2021 10/25/2021 Overview: Dehiscence of incision 09/18/2009 1 Surgical wound infection 09/18/2009 019 Malignant neoplasm of kidney excluding renal pel vis 11/21/2008 06/25/2015 Urinary complications 03/21/2008 11/19/2015 Acute kidney failure, unspecified 03/21/2008 01/17/2017 documented as of this encounter (statuses as of 07/29/2022) [facility] of Past illness Narrative* Problem Noted Date Resolved Date Pancreatic cyst 10/25/2021 10/25/2021 Overview: Dehiscence of incision 09/18/2009 1 Surgical wound infection 09/18/2009 019 Malignant neoplasm of kidney excluding renal pel vis 11/21/2008 06/25/2015 Urinary complications 03/21/2008 11/19/2015 Acute kidney failure, unspecified 03/21/2008 01/17/2017 documented as of this encounter (statuses as of 08/06/2022) [facility] of Past illness Narrative* Problem Noted Date Resolved Date Pancreatic cyst 10/25/2021 10/25/2021 Overview: Dehiscence of incision 09/18/2009 1 Surgical wound infection 09/18/2009 019 Malignant neoplasm of kidney excluding renal pel vis 11/21/2008 06/25/2015 Urinary complications 03/21/2008 11/19/2015 Acute kidney failure, unspecified 03/21/2008 01/17/2017 documented as of this encounter (statuses as of 08/11/2022) [facility] of Past illness Narrative* Problem Noted Date Resolved Date Pancreatic cyst 10/25/2021 10/25/2021 Overview: Dehiscence of incision 09/18/2009 1 Surgical wound infection 09/18/2009 019 Malignant neoplasm of kidney excluding renal pel vis 11/21/2008 06/25/2015 Urinary complications 03/21/2008 11/19/2015 Acute kidney failure, unspecified 03/21/2008 01/17/2017 documented as of this encounter (statuses as of 08/15/2022) [facility] of Past illness Narrative* Problem Noted Date Resolved Date Pancreatic cyst 10/25/2021 10/25/2021 Overview: Dehiscence of incision 09/18/2009 1 Surgical wound infection 09/18/2009 019 Malignant neoplasm of kidney excluding renal pel vis 11/21/2008 06/25/2015 Urinary complications 03/21/2008 11/19/2015 Acute kidney failure, unspecified 03/21/2008 01/17/2017 documented as of this encounter (statuses as of 08/20/2022) [facility] of Past illness Narrative* Problem Noted Date Diagnosed Date Resolved Date Pancreatic cyst 10/25/2021 10/25/2021 Overview: Dehiscence of incision 09/18/200908/29 Surgical wound infection 09/18/2009 Malignant neoplasm of kidney excluding renal pelvis 11/21/2008 06/25/2015 Urinary complications 03/21/20082015 Acute kidney failure, unspecified 03/21/2008 01/17/2017 documented as of this encounter (statuses as of 09/15/2022) [facility] of Past illness Narrative* Problem Noted Date Diagnosed Date Resolved Date Pancreatic cyst 10/25/2021 10/25/2021 Overview: Dehiscence of incision 09/18/200908/29 Surgical wound infection 09/18/2009 Malignant neoplasm of kidney excluding renal pelvis 11/21/2008 06/25/2015 Urinary complications 03/21/20082015 Acute kidney failure, unspecified 03/21/2008 01/17/2017 documented as of this encounter (statuses as of 10/01/2022) [facility] of Past illness Narrative* Problem Noted Date Diagnosed Date Resolved Date Pancreatic cyst 10/25/2021 10/25/2021 Overview: Dehiscence of incision 09/18/200908/29 Surgical wound infection 09/18/2009 Malignant neoplasm of kidney excluding renal pelvis 11/21/2008 06/25/2015 Urinary complications 03/21/20082015 Acute kidney failure, unspecified 03/21/2008 01/17/2017 documented as of this encounter (statuses as of 10/06/2022) [facility] of Past illness Narrative* Problem Noted Date Diagnosed Date Resolved Date Pancreatic cyst 10/25/2021 10/25/2021 Overview: Dehiscence of incision 09/18/200908/29 Surgical wound infection 09/18/2009 Malignant neoplasm of kidney excluding renal pelvis 11/21/2008 06/25/2015 Urinary complications 03/21/20082015 Acute kidney failure, unspecified 03/21/2008 01/17/2017 documented as of this encounter (statuses as of 10/13/2022) [facility] of Past illness Narrative* Problem Noted Date Diagnosed Date Resolved Date Pancreatic cyst 10/25/2021 10/25/2021 Overview: Dehiscence of incision 09/18/200908/29 Surgical wound infection 09/18/2009 Malignant neoplasm of kidney excluding renal pelvis 11/21/2008 06/25/2015 Urinary complications 03/21/20082015 Acute kidney failure, unspecified 03/21/2008 01/17/2017 documented as of this encounter (statuses as of 11/05/2022) [facility] of Past illness Narrative* Problem Noted Date Diagnosed Date Resolved Date Pancreatic cyst 10/25/2021 10/25/2021 Overview: Dehiscence of incision 09/18/200908/29 Surgical wound infection 09/18/2009 Malignant neoplasm of kidney excluding renal pelvis 11/21/2008 06/25/2015 Urinary complications 03/21/20082015 Acute kidney failure, unspecified 03/21/2008 01/17/2017 documented as of this encounter (statuses as of 11/27/2022) [facility] of Past illness Narrative* Problem Noted Date Diagnosed Date Resolved Date Pancreatic cyst 10/25/2021 10/25/2021 Overview: Dehiscence of incision 09/18/200908/29 Surgical wound infection 09/18/2009 Malignant neoplasm of kidney excluding renal pelvis 11/21/2008 06/25/2015 Urinary complications 03/21/20082015 Acute kidney failure, unspecified 03/21/2008 01/17/2017 documented as of this encounter (statuses as of 11/28/2022) [facility] of Past illness Narrative* Problem Noted Date Diagnosed Date Resolved Date Pancreatic cyst 10/25/2021 10/25/2021 Overview: Dehiscence of incision 09/18/200908/29 Surgical wound infection 09/18/2009 Malignant neoplasm of kidney excluding renal pelvis 11/21/2008 06/25/2015 Urinary complications 03/21/20082015 Acute kidney failure, unspecified 03/21/2008 01/17/2017 documented as of this encounter (statuses as of 12/19/2022) [facility] of Past illness Narrative* Problem Noted Date Diagnosed Date Resolved Date Pancreatic cyst 10/25/2021 10/25/2021 Overview: Dehiscence of incision 09/18/200908/29 Surgical wound infection 09/18/2009 Malignant neoplasm of kidney excluding renal pelvis 11/21/2008 06/25/2015 Urinary complications 03/21/20082015 Acute kidney failure, unspecified 03/21/2008 01/17/2017 documented as of this encounter (statuses as of 12/27/2022) [facility] of Past illness Narrative* Problem Noted Date Diagnosed Date Resolved Date Pancreatic cyst 10/25/2021 10/25/2021 Overview: Dehiscence of incision 09/18/200908/29 Surgical wound infection 09/18/2009 Malignant neoplasm of kidney excluding renal pelvis 11/21/2008 06/25/2015 Urinary complications 03/21/20082015 Acute kidney failure, unspecified 03/21/2008 01/17/2017 documented as of this encounter (statuses as of 01/18/2023) [facility] Past illness Narrative* Problem Noted Date Diagnosed Date Resolved Date Pancreatic cyst 10/25/2021 10/25/2021 Overview: Dehiscence of incision 09/18/200908/29 Surgical wound infection 09/18/2009 Malignant neoplasm of kidney excluding renal pelvis 11/21/2008 06/25/2015 Urinary complications 03/21/20082015 Acute kidney failure, unspecified 03/21/2008 01/17/2017 documented as of this encounter (statuses as of 01/29/2023) [facility] Miscellaneous Notes* Telephone Encounter - Kandace Love RN - 10/18/2021 3:30 PM EDT Patient calling with request for medication/refill: Patient/caregiver requesting refill of Humalog be called to [facility] pharmacy at [phone].. Patient denies any new or worsening symptoms [...] and read back to Jim Herrera at [facility]; by Kandace Love RN. Patient/Family notified: Yes Kandace Love RN [facility] Miscellaneous Notes* Telephone Encounter - Jovany Rodriguez RN - 10/16/2021 1:38 PM EDT Patient returned call and given provider's message below with verbalized understanding. Patient reports her daughter will orange picker machine operator container at lab. * Telephone Encounter - Elaine Parker LPN - 10/16/2021 11:59 AM EDT Left message to call office. * Telephone Encounter - Jovany Rizzo PA-C - 10/16/2021 7:53 AM EDT See mychart: large microalbuminuria. Please have her come into obtain container. Telephone on 10/16/21 ALBUMIN QUANT 24H UR CREAT CLEAR 24 HOUR Thanks, Gigi Rizzo PA-C [facility] Miscellaneous Notes* Telephone Encounter - [...] having MRI done on October 16 in [place]. She plans to come in to have lab work done that Gigi Rizzo has ordered possibly Tuesday. She is needing a copy of the BUN faxed. Patient will call back, she will get name of facility and who to send results to and fax number. documented in this encounterUniversity [facility] Miscellaneous Notes* Telephone Encounter - Elaine Parker LPN - 10/14/2021 3:47 PM EDT Spoke with Karlee and she is going to take care of this. * Telephone Encounter - Dhara Naylor RN - 10/14/2021 3:07 PM EDT Karlee with [facility] states patient has rescheduled her MRI outside of authorized insurance timeframe. Karlee reports MYO Sousa would need contacted at [phone] for insurance extensionfor MRI. For any other further questions, may call Karlee back at [phone]. Thank you. documented in this [facility]08-31-2022 Miscellaneous Notes* Telephone Encounter - Elaine Parker LPN - 10/14/2021 1:50 PM EDT Faxed as requested from [facility]. * Telephone Encounter - Ema Joseph RN - 10/09/2021 3:21 PM EDT Pts daughter called in and reports Pt is having an MRI on 10/16/21 at [facility]. She states they need to have Pts BUN and Creat faxed up to them once Pt has labs drawn next week. Please fax lab results to [phone]. documented in this encounterUniversity Hospitals [facility]08-[facility]-2022 Miscellaneous Notes* Telephone Encounter - MARK Shaw - 10/02/2021 1:32 PM EDT CD/ reports READY FOR PERSONAL CARE AID AT [facility] * Telephone Encounter - Tiesha Perez Pss - 10/02/2021 11:22 AM EDT Patient calling requesting CD and report of x-ray done on 10/22/20. Patient will pickup after 11:15 am on Tuesday, 10/05. Thank you! documented in this [facility]08-11-2022 History of Present illness Narrative* Jovany Rizzo PA-C - 09/24/2021 8:00 AM EDT [facility] visit was used for evaluation of this patient. Location of patient: [place] Patient was offered a virtual/telemedicine appointment in [...] <2.54 0.63 1.36 Pvd (peripheral vascular disease) ([facility]) Current medications: ASA 81 mg daily 01/15/2022 PVR RABI 1.00, LABI 0.95 Chronic hypoxemic respiratory failure (hcc) Chronic obstructive pulmonary disease, unspecified copd type (hcc) Obstructive sleep apnea syndrome Lung nodules Current medications: O2 2 L/min nasal cannula continuous CPAP 11 cm with 20-minute ramp and humidification Associate Spa Director: Dr. Bernard. Interval history: 07/16/2021 last visit [...] Lymph 1.00 - 4.00 k/uL 3.76 2.35 Dooly% % 5.1 5.0 Abs Dooly <0.87 k/uL 0.73 0.59 Eosin% % 2.6 [...] HISTORY Diagnosis Date Chronic hypoxemic respiratory failure ([facility]) 07/16/2021 Due to morbid obesity. COPD (chronic obstructive pulmonary disease) ([facility]) with chronic hypoxemic respiratory failure; on oxygen 2 liters continuously Degenerative disc disease Depression Diabetes mellitus type II Dyslipidemia Hypertension IBS (irritable bowel syndrome) Microalbuminuria on adwoa inhibitor Obesity Palpitations Panic disorder Renal calculus Renal cell carcinoma of right kidney ([facility]) 2009 S/P partial right nephrectomy Sleep [...] units with dinner 15 Pen 0 Insulin [place], Disposable, (ULTICARE PEN NEEDLE) 29 gauge x [...] week. 6 mL 4 flash glucose sensor ([employer] TERRELL 14 DAY SENSOR) kit Apply new [...] Type 2 DM - Uncontrolled E11.65 Insulin: [id number] Each 11 CPAP 11 cm via nasal [...] PANEL BASIC 3. PVD (peripheral vascular disease) ([facility]) - ICD9: 443.9, ICD10: I73.9 No [...] Chronic obstructive pulmonary disease, unspecified COPD type ([facility]) - ICD9: 496, ICD10: J44.9 As [...] complication, with long-term current use of insulin ([facility]) - ICD9: 250.00, V58.67, ICD10: E11.9, [...] call Jovany Rizzo PA-C documented in this encounterUniversity Hospitals [facility]08-04-2022 Miscellaneous Notes* Telephone Encounter - [...] you. Yesenia Blanco LPN documented in this encounterUniversity Hospitals [facility]07-25-2022 Miscellaneous Notes* Telephone Encounter - MARK Shaw - 09/07/2021 1:30 PM EDT Mailed * Telephone Encounter - Bhargavi Groves - 09/02/2021 4:52 PM EDT Pt calling to request disc of her CT done last October (10/22) be mailed to her doctors office as she can not come in to get it. Please mail to: ATTN: PAT [address] [place] [address] documented in this encounterUniversity Hospitals [facility]07-25-2022 Miscellaneous Notes* Telephone Encounter - Rich Irby LPN - 09/07/2021 11:10 AM EDT EDITA 07/10/21 NOV 09/24/21 * Telephone Encounter - Gayle Benz [facility] - 09/07/2021 10:04 AM EDT Patient has [...] TODAY AT NOON. [facility] documented in this encounterUniversity Hospitals [facility]07-15-2022 Miscellaneous Notes* Telephone Encounter - Patti Panda Ma - 08/28/2021 8:15 AM EDT Patient was notified that Tresiba is approved until 07/2022 Faxed approval information to lucy Panda Ma * Telephone Encounter - Yesenia Wheelerhl DECORATIVE CUTTING MACHINE TENDER - 08/28/2021 8:04 AM EDT Pt called and states [facility] and [facility] are [facility] telling [...] medication. Yesenia Blanco LPN documented in this encounterUniversity Hospitals [facility]06-28-2022 Miscellaneous Notes* Telephone Encounter - Patti Panda Ma - 08/11/2021 8:56 AM EDT Tresiba Approved and patient notified via voicemail Patti Panda Ma * Telephone Encounter - Marlen Nixon LPN - 08/06/2021 11:36 AM EDT Electronic PA requested for tresiba. documented in this encounterUniversity Hospitals [facility]06-22-2022 Miscellaneous Notes* Telephone Encounter - Pilar Pendleton Pss - 08/05/2021 3:52 PM EDT Patient is currently out of her humalog, needs for tonight. [facility] and notify patient when [...] advise. Pilar Pendleton Pss documented in this encounterUniversity Hospitals [facility]06-08-2022 Miscellaneous Notes* Telephone Encounter - [...] you. Marcy Pandya, RN documented in this encounterUniversity Hospitals [facility]05-31-2022 Miscellaneous Notes* Telephone Encounter - Mat Davidson RPh - 07/14/2021 3:54 PM EDT Attempted to call patient for today's scheduled pharmacy phone follow up. Not able to reach after several attempts. Attempted to reach patient at listed numbers [phone] (LVM), and [phone]. On third attempt, patient's spouse answers phone to state patient is not available at this time. Instructed to return call to reschedule visit. He verbalized understanding. Mat Davidson, PharmD Primary Care Clinical Pharmacist [facility] documented in this encounterUniversity Hospitals [facility]05-27-2022 History of Present illness Narrative* Jovany Rizzo PA-C - 07/10/2021 1:48 PM EDT MyChart video visit was used for evaluation of this patient. Location of patient: [place] Patient was offered a virtual/telemedicine appointment in [...] Type 2 DM - Uncontrolled E11.65 Insulin: [id number] Each 11 Insulin [place], Disposable, (ULTICARE PEN NEEDLE) 29 gauge x [...] PM Jovany Rizzo PA-C documented in this encounterUniversity Hospitals [facility]05-10-2022 Miscellaneous Notes* Telephone Encounter - [...] help her relax. Please advise patient. PH: [phone]. Thank you. documented in this encounterUniversity Hospitals [facility]05-10-2022 History of Present illness Narrative* Mat Davidson, [facility] - 06/23/2021 2:30 PM EDT Primary Care [...] Lunch: leftovers from supper Dinner: lasagne, pasta, samoan rice, hot dogs and hamburgers, pork steaks, [...] Diagnosis Date COPD (chronic obstructive pulmonary disease) ([facility]) with chronic hypoxemic respiratory failure; on [...] mg subcutaneously one time a week. Insulin [place], Disposable, (ULTICARE PEN NEEDLE) 29 gauge x [...] complication, with long-term current use of insulin ([facility]) - ICD9: 250.00, V58.67, ICD10: E11.9, [...] Davidson, ZaraD, BCACP Primary Care Clinical Pharmacist [facility] The majority of the pharmacy visit (> 50%) was spent counseling and/or coordinating care for thepatient. [Telephonic] time was 18 minutes. documented in this encounterUniversity Hospitals [facility]05-05-2022 Miscellaneous Notes* Telephone Encounter - Nika Watters MA - 06/18/2021 8:51 AM EDT Daughter notified. * Telephone Encounter - Samson Hogan MD - 06/18/2021 8:36 AM EDT Cholesterol was good. It looks like only part of the labs were done due to epic change. Needs at least a1c as well. documented in this encounterUniversity Hospitals [facility]04-27-2022 Miscellaneous Notes* Telephone Encounter - Samson Hogan MD - 06/10/2021 2:17 PM EDT Placed * Telephone Encounter - Marcy Pandya RN - 06/10/2021 12:23 PM EDT Patient calling with request for new order MRI abdomen (MRI Liver WO/WIVCON). She came to [facility] on 05/29 to have it done but became claustrophobic and it was cancelled. She says she can go to [facility] where they have a bigger MRI machine. Marcy Pandya, RN documented in this encounterUniversity Hospitals [facility]04-21-2022 Miscellaneous Notes* Telephone Encounter - [...] Center. Yesenia Blanco LPN documented in this encounterUniversity Hospitals [facility]04-19-2022 History of Present illness Narrative* Mat Davidson, [facility] - 06/02/2021 1:00 PM EDT Primary Care [...] Lunch: leftovers from supper Dinner: lasagne, pasta, samoan rice, hot dogs and hamburgers, pork steaks, mashed potatoes Snacks: chips, easter candy, cookies, cheese sticks, yogurt Beverages: diet coke, water Exercise: limited MEDICATIONS: Pill bottles are not present. Adherence: denies missed doses. ACTIVE PROBLEM LIST Calculus of Kidney Renal Colic Hydronephrosis Calculus of Ureter Foreign Body in Bladder and Urethra Asa Class Iii Flank Hernia Morbid Obesity With Bmi of 50.0-59.9, Adult ([facility]) Depression Ddd (Degenerative Disc Disease), Lumbar Ibs (Irritable Bowel Syndrome) Panic Disorder Sleep Apnea Hypertension Diabetes Mellitus (Hcc) Lumbago Malignant Neoplasm of Kidney Excluding Renal Pelvis ([facility]) Mixed Hyperlipidemia Pvd (Peripheral Vascular Disease) ([facility]) Chronic Obstructive Pulmonary Disease ([facility]) PAST MEDICAL HISTORY Diagnosis Date COPD (chronic obstructive pulmonary disease) ([facility]) with chronic hypoxemic respiratory failure; on oxygen 2 liters continuously Degenerative disc disease Depression Diabetes mellitus type II Dyslipidemia Hypertension IBS (irritable bowel syndrome) Microalbuminuria on adwoa inhibitor Obesity Palpitations Panic disorder Renal calculus Renal cell carcinoma of right kidney ([facility]) 2009 S/P partial right nephrectomy Sleep [...] Inject 88 Units subcutaneously twice daily. Insulin [place], Disposable, (ULTICARE PEN NEEDLE) 29 gauge x [...] TG 343 03/24/2020 The ASCVD Risk score (Maunieatul MALIN Jr., et al., 2013) failed to calculate for the following reasons: The valid total cholesterol range is 130 to 320 mg/dL Albumin/Creat Ratio (mg/g) Date Value 03/24/2020 937 (H) PHARMACOTHERAPY ASSESSMENT/PLAN: 1. Type 2 diabetes mellitus without complication, with long-term current use of insulin ([facility]) - ICD9: 250.00, V58.67, ICD10: E11.9, [...] Davidson PharmD, BCACP Primary Care Clinical Pharmacist [facility] The majority of the pharmacy visit (> 50%) was spent counseling and/or coordinating care for thepatient. [Telephonic] time was 23 minutes. documented in this encounterUniversity Hospitals [facility]04-15-2022 Miscellaneous Notes* Telephone Encounter - [...] you. Izabella Haas LPN documented in this encounterUniversity Hospitals [facility]04-15-2022 Miscellaneous Notes* Telephone Encounter - Elaine Parker LPN - 05/29/2021 10:18 AM EDT Patient here to have labs completed and needs updated labs from remote use only labs. No need to contact can close after orders filed. documented in this encounterUniversity Hospitals [facility]08-05-2010 History of Past illness Narrative* Problem Noted Date Resolved Date Dehiscence of incision 09/18/2009 1 Surgical wound infection 09/18/2009 019 Malignant neoplasm of kidney excluding renal pel vis 11/21/2008 06/25/2015 Urinary complications 03/21/2008 11/19/2015 Acute kidney failure, unspecified 03/21/2008 01/17/2017 documented as of this encounter (statuses as of 05/29/2021) [facility]08[facility] History of Past illness Narrative* Problem Noted Date Resolved Date Dehiscence of incision 09/18/2009 1 Surgical wound infection 09/18/2009 019 Malignant neoplasm of kidney excluding renal pel vis 11/21/2008 06/25/2015 Urinary complications 03/21/2008 11/19/2015 Acute kidney failure, unspecified 03/21/2008 01/17/2017 documented as of this encounter (statuses as of 05/29/2021) [facility] History of Past illness Narrative* Problem Noted Date Resolved Date Dehiscence of incision 09/18/2009 1 Surgical wound infection 09/18/2009 019 Malignant neoplasm of kidney excluding renal pel vis 11/21/2008 06/25/2015 Urinary complications 03/21/2008 11/19/2015 Acute kidney failure, unspecified 03/21/2008 01/17/2017 documented as of this encounter (statuses as of 05/30/2021) [facility] History of Past illness Narrative* Problem Noted Date Resolved Date Dehiscence of incision 09/18/2009 1 Surgical wound infection 09/18/2009 019 Malignant neoplasm of kidney excluding renal pel vis 11/21/2008 06/25/2015 Urinary complications 03/21/2008 11/19/2015 Acute kidney failure, unspecified 03/21/2008 01/17/2017 documented as of this encounter (statuses as of 06/04/2021) [facility] History of Past illness Narrative* Problem Noted Date Resolved Date Dehiscence of incision 09/18/2009 1 Surgical wound infection 09/18/2009 019 Malignant neoplasm of kidney excluding renal pel vis 11/21/2008 06/25/2015 Urinary complications 03/21/2008 11/19/2015 Acute kidney failure, unspecified 03/21/2008 01/17/2017 documented as of this encounter (statuses as of 06/10/2021) [facility] History of Past illness Narrative* Problem Noted Date Resolved Date Dehiscence of incision 09/18/2009 1 Surgical wound infection 09/18/2009 019 Malignant neoplasm of kidney excluding renal pel vis 11/21/2008 06/25/2015 Urinary complications 03/21/2008 11/19/2015 Acute kidney failure, unspecified 03/21/2008 01/17/2017 documented as of this encounter (statuses as of 06/14/2021) [facility] History of Past illness Narrative* Problem Noted Date Resolved Date Dehiscence of incision 09/18/2009 1 Surgical wound infection 09/18/2009 019 Malignant neoplasm of kidney excluding renal pel vis 11/21/2008 06/25/2015 Urinary complications 03/21/2008 11/19/2015 Acute kidney failure, unspecified 03/21/2008 01/17/2017 documented as of this encounter (statuses as of 06/18/2021) [facility] History of Past illness Narrative* Problem Noted Date Resolved Date Dehiscence of incision 09/18/2009 1 Surgical wound infection 09/18/2009 019 Malignant neoplasm of kidney excluding renal pel vis 11/21/2008 06/25/2015 Urinary complications 03/21/2008 11/19/2015 Acute kidney failure, unspecified 03/21/2008 01/17/2017 documented as of this encounter (statuses as of 06/23/2021) [facility] History of Past illness Narrative* Problem Noted Date Resolved Date Dehiscence of incision 09/18/2009 1 Surgical wound infection 09/18/2009 019 Malignant neoplasm of kidney excluding renal pel vis 11/21/2008 06/25/2015 Urinary complications 03/21/2008 11/19/2015 Acute kidney failure, unspecified 03/21/2008 01/17/2017 documented as of this encounter (statuses as of 06/24/2021) [facility] of Past illness Narrative* Problem Noted Date Resolved Date Dehiscence of incision 09/18/2009 1 Surgical wound infection 09/18/2009 019 Malignant neoplasm of kidney excluding renal pel vis 11/21/2008 06/25/2015 Urinary complications 03/21/2008 11/19/2015 Acute kidney failure, unspecified 03/21/2008 01/17/2017 documented as of this encounter (statuses as of 07/10/2021) [facility] of Past illness Narrative* Problem Noted Date Resolved Date Dehiscence of incision 09/18/2009 1 Surgical wound infection 09/18/2009 019 Malignant neoplasm of kidney excluding renal pel vis 11/21/2008 06/25/2015 Urinary complications 03/21/2008 11/19/2015 Acute kidney failure, unspecified 03/21/2008 01/17/2017 documented as of this encounter (statuses as of 07/24/2021) [facility] of Past illness Narrative* Problem Noted Date Resolved Date Dehiscence of incision 09/18/2009 1 Surgical wound infection 09/18/2009 019 Malignant neoplasm of kidney excluding renal pel vis 11/21/2008 06/25/2015 Urinary complications 03/21/2008 11/19/2015 Acute kidney failure, unspecified 03/21/2008 01/17/2017 documented as of this encounter (statuses as of 07/29/2021) [facility] of Past illness Narrative* Problem Noted Date Resolved Date Dehiscence of incision 09/18/2009 1 Surgical wound infection 09/18/2009 019 Malignant neoplasm of kidney excluding renal pel vis 11/21/2008 06/25/2015 Urinary complications 03/21/2008 11/19/2015 Acute kidney failure, unspecified 03/21/2008 01/17/2017 documented as of this encounter (statuses as of 08/05/2021) [facility] of Past illness Narrative* Problem Noted Date Resolved Date Dehiscence of incision 09/18/2009 1 Surgical wound infection 09/18/2009 019 Malignant neoplasm of kidney excluding renal pel vis 11/21/2008 06/25/2015 Urinary complications 03/21/2008 11/19/2015 Acute kidney failure, unspecified 03/21/2008 01/17/2017 documented as of this encounter (statuses as of 08/10/2021) [facility] of Past illness Narrative* Problem Noted Date Resolved Date Dehiscence of incision 09/18/2009 1 Surgical wound infection 09/18/2009 019 Malignant neoplasm of kidney excluding renal pel vis 11/21/2008 06/25/2015 Urinary complications 03/21/2008 11/19/2015 Acute kidney failure, unspecified 03/21/2008 01/17/2017 documented as of this encounter (statuses as of 08/11/2021) [facility] of Past illness Narrative* Problem Noted Date Resolved Date Dehiscence of incision 09/18/2009 1 Surgical wound infection 09/18/2009 019 Malignant neoplasm of kidney excluding renal pel vis 11/21/2008 06/25/2015 Urinary complications 03/21/2008 11/19/2015 Acute kidney failure, unspecified 03/21/2008 01/17/2017 documented as of this encounter (statuses as of 08/13/2021) [facility] of Past illness Narrative* Problem Noted Date Resolved Date Dehiscence of incision 09/18/2009 1 Surgical wound infection 09/18/2009 019 Malignant neoplasm of kidney excluding renal pel vis 11/21/2008 06/25/2015 Urinary complications 03/21/2008 11/19/2015 Acute kidney failure, unspecified 03/21/2008 01/17/2017 documented as of this encounter (statuses as of 08/28/2021) [facility] of Past illness Narrative* Problem Noted Date Resolved Date Dehiscence of incision 09/18/2009 1 Surgical wound infection 09/18/2009 019 Malignant neoplasm of kidney excluding renal pel vis 11/21/2008 06/25/2015 Urinary complications 03/21/2008 11/19/2015 Acute kidney failure, unspecified 03/21/2008 01/17/2017 documented as of this encounter (statuses as of 09/07/2021) [facility] of Past illness Narrative* Problem Noted Date Resolved Date Dehiscence of incision 09/18/2009 1 Surgical wound infection 09/18/2009 019 Malignant neoplasm of kidney excluding renal pel vis 11/21/2008 06/25/2015 Urinary complications 03/21/2008 11/19/2015 Acute kidney failure, unspecified 03/21/2008 01/17/2017 documented as of this encounter (statuses as of 09/07/2021) [facility] of Past illness Narrative* Problem Noted Date Resolved Date Dehiscence of incision 09/18/2009 1 Surgical wound infection 09/18/2009 019 Malignant neoplasm of kidney excluding renal pel vis 11/21/2008 06/25/2015 Urinary complications 03/21/2008 11/19/2015 Acute kidney failure, unspecified 03/21/2008 01/17/2017 documented as of this encounter (statuses as of 09/17/2021) [facility] of [facility] illness Narrative* Problem Noted Date Resolved Date Dehiscence of incision 09/18/2009 1 Surgical wound infection 09/18/20092 019 Malignant neoplasm of kidney excluding renal pel vis 11/21/2008 06/25/2015 Urinary complications 03/21/2008 11/19/2015 Acute kidney failure, unspecified 03/21/2008 01/17/2017 documented as of this encounter (statuses as of 09/24/2021) [facility] of [facility] illness Narrative* Problem Noted Date Resolved Date Dehiscence of incision 09/18/2009 1 Surgical wound infection 09/18/2009 019 Malignant neoplasm of kidney excluding renal pel vis 11/21/2008 06/25/2015 Urinary complications 03/21/2008 11/19/2015 Acute kidney failure, unspecified 03/21/2008 01/17/2017 documented as of this encounter (statuses as of 10/02/2021) [facility] of [facility] illness Narrative* Problem Noted Date Resolved Date Dehiscence of incision 09/18/2009 1 Surgical wound infection 09/18/2009 019 Malignant neoplasm of kidney excluding renal pel vis 11/21/2008 06/25/2015 Urinary complications 03/21/2008 11/19/2015 Acute kidney failure, unspecified 03/21/2008 01/17/2017 documented as of this encounter (statuses as of 10/14/2021) [facility] of Past illness Narrative* Problem Noted Date Resolved Date Dehiscence of incision 09/18/2009 1 Surgical wound infection 09/18/2009 019 Malignant neoplasm of kidney excluding renal pel vis 11/21/2008 06/25/2015 Urinary complications 03/21/2008 11/19/2015 Acute kidney failure, unspecified 03/21/2008 01/17/2017 documented as of this encounter (statuses as of 10/15/2021) [facility] of [facility] illness Narrative* Problem Noted Date Resolved Date Dehiscence of incision 09/18/2009 1 Surgical wound infection 09/18/2009 019 Malignant neoplasm of kidney excluding renal pel vis 11/21/2008 06/25/2015 Urinary complications 03/21/2008 11/19/2015 Acute kidney failure, unspecified 03/21/2008 01/17/2017 documented as of this encounter (statuses as of 10/16/2021) [facility] of [facility] illness Narrative* Problem Noted Date Resolved Date Dehiscence of incision 09/18/2009 1 Surgical wound infection 09/18/2009 019 Malignant neoplasm of kidney excluding renal pel vis 11/21/2008 06/25/2015 Urinary complications 03/21/2008 11/19/2015 Acute kidney failure, unspecified 03/21/2008 01/17/2017 documented as of this encounter (statuses as of 10/18/2021) [facility]* Diagnosis Type 2 diabetes mellitus without complication, with long-term current use of insulin (HCC)- Primary Mixed hyperlipidemia Primary hypertension Unspecified essential hypertension Essential hypertension Unspecified essential hypertension [facility] Diagnosis Anxiety Anxiety state, unspecified Essential hypertension Unspecified essential hypertension Hypokalemia Hypopotassemia [facility] Diagnosis Liver mass Unspecified disorder of liver [facility]* Diagnosis SOB (shortness of breath)- Primary Shortness of breath [facility]* Diagnosis Liver mass- Primary Unspecified disorder of liver [facility]* Diagnosis Type 2 diabetes mellitus without complication, with long-term current use of insulin (HCC)- Primary [facility]* Diagnosis Type 2 diabetes mellitus without complication, with long-term current use of insulin (HCC)- Primary [facility] this [facility]* Diagnosis Anxiety- Primary Anxiety state, unspecified documented in this encounter [facility]* Diagnosis Type 2 diabetes mellitus without complication, with long-term current use of insulin (HCC)- Primary documented in this encounter [facility] note* Diagnosis Acute maxillary sinusitis, recurrence not specified- Primary documented in this encounter [facility] note* Diagnosis Type 2 diabetes mellitus without complication, with long-term current use of insulin (HCC) [facility]* Diagnosis Encounter for screening mammogram for breast cancer [facility]* Diagnosis DDD (degenerative disc disease), lumbar Degeneration of lumbar or lumbosacral intervertebral disc [facility] this [facility] Diagnosis Primary hypertension- Primary Unspecified essential [...] hyperglycemia (HCC)- Primary documented [facility] this [facility]* Diagnosis Microalbuminuria- Primary Proteinuria documented in this encounter [facility]* Diagnosis Type 2 diabetes mellitus without complication, with long-term current use of insulin (HCC) [facility]* Diagnosis gallbladder duct cyst- Primary Other specified disorders of liver Staghorn renal calculus Calculus of kidney Adrenal adenoma, right documented in this [facility]* Diagnosis Hypokalemia Hypopotassemia Essential hypertension Unspecified essential hypertension Anxiety Anxiety state, unspecified documented in this [facility]* Diagnosis Essential hypertension Unspecified essential hypertension Mixed hyperlipidemia Panic disorder Panic disorder without agoraphobia DDD (degenerative disc disease), lumbar Degeneration of lumbar or lumbosacral intervertebral disc [facility]* Diagnosis Type 2 diabetes mellitus without complication, with long-term current use of insulin (HCC) [facility]* Diagnosis Type 2 diabetes mellitus without complication, with long-term current use of insulin (HCC) [facility]* Diagnosis Albuminuria- Primary Proteinuria Type 2 diabetes mellitus with other specified complication, with long-term current use of insulin (HCC) documented in this encounter [facility]* Diagnosis DDD (degenerative disc disease), lumbar Degeneration of lumbar or lumbosacral intervertebral disc documented in this encounter [facility]* Diagnosis Anxiety- Primary Anxiety state, unspecified Depression, unspecified depression type Type 2 diabetes mellitus without complication, with long-term current use of insulin (HCC) Primary hypertension Unspecified essential hypertension [facility]* Diagnosis Type 2 diabetes mellitus without complication, with long-term current use of insulin (HCC) [facility]* Diagnosis Essential hypertension Unspecified essential hypertension Anxiety Anxiety state, unspecified Hypokalemia Hypopotassemia documented [facility] this [facility]* Diagnosis Ground glass opacity present on imaging of lung- Primary Lung nodules Other nonspecific abnormal finding of lung field [facility] this [facility]* Diagnosis Essential hypertension- Primary [...] Calculus of kidney documented in this encounter [facility]* Diagnosis DDD (degenerative disc disease), lumbar Degeneration of lumbar or lumbosacral intervertebral disc Essential hypertension Unspecified essential hypertension Mixed hyperlipidemia Panic disorder Panic disorder without agoraphobia Type 2 diabetes mellitus without complication, with long-term current use of insulin (HCC) documented in this encounter [facility]* Diagnosis Type 2 diabetes mellitus without complication, with long-term current use of insulin ([facility]) documented in this encounter [facility]* Diagnosis Depression, unspecified depression type documented in this encounter [facility]* Diagnosis Type 2 diabetes mellitus without complication, with long-term current use of insulin ([facility]) documented in this encounter [facility]* Diagnosis Redness of skin- Primary Unspecified erythematous condition Bilateral elbow joint pain documented in this encounter [facility]* Diagnosis Encounter for screening mammogram for breast cancer documented in this encounter [facility]* Diagnosis Type 2 diabetes mellitus without complication, with long-term current use of insulin (HCC) documented in this encounter [facility]* Diagnosis Type 2 diabetes mellitus without complication, with long-term current use of insulin (HCC) documented in this encounter [facility]* Diagnosis Type 2 diabetes mellitus without complication, with long-term current use of insulin ([facility]) documented in this encounter [facility]* Diagnosis Venous insufficiency of both lower extremities- Primary documented [facility] this encounter [facility]* Diagnosis DDD (degenerative disc disease), lumbar Degeneration of lumbar or lumbosacral intervertebral disc [facility] Diagnosis Depression, unspecified depression type documented in this encounter [facility]* Diagnosis Type 2 diabetes mellitus without complication, with long-term current use of insulin ([facility]) documented in this encounter [facility]* Diagnosis Essential hypertension Unspecified essential hypertension Anxiety Anxiety state, unspecified Hypokalemia Hypopotassemia documented in this encounter [facility]* Diagnosis DDD (degenerative disc disease), lumbar Degeneration of lumbar or lumbosacral intervertebral disc Essential hypertension Unspecified essential hypertension Mixed hyperlipidemia Panic disorder Panic disorder without agoraphobia [facility]* Diagnosis Essential hypertension- Primary Unspecified essential [...] of left hand documented in this encounter [facility] note* Diagnosis Thyroid nodule greater than or equal to 1 cm in diameter incidentally noted on imaging study- Primary [facility]* Diagnosis Thyroid nodule Nontoxic uninodular goiter [facility]* Diagnosis Lung nodules Other nonspecific abnormal finding of lung field Cigarette smoker Tobacco use disorder History of renal cell cancer [facility]* Diagnosis Type 2 diabetes mellitus without complication, with long-term current use of insulin ([facility]) documented in this encounter [facility] note* Diagnosis DDD (degenerative disc disease), lumbar Degeneration of lumbar or lumbosacral intervertebral disc documented in this encounter [facility] for referral (narrative)* Diagnostic Procedure Only (Routine) - Pending Review Specialty Diagnoses / Procedures Referred By Contac t Referred To Contact BR IMAGING Diagnoses Encounter for screening mammogram for breast cancer Procedures SHAHRAM SCREENING SCREENING MAMMOGRAPHY BI 2-VIEW BREAST INC CAD Jovany Rizzo PA-C [address] [place] [address] Br Imaging [address] [place] [address] Referral ID Status Reason Start Date Expiration Date Visits Requested Visits Authorized [id number] Pending Review Auto-Generat ed Referral 08/05/2021 09/04/2022 1 1 [facility] for referral (narrative)* Diagnostic Procedure Only (Routine) - Pending Review Specialty Diagnoses / Procedures Referred By Contac t Referred To Contact BR IMAGING Diagnoses Encounter for screening mammogram for breast cancer Procedures SHAHRAM SCREENING SCREENING MAMMOGRAPHY BI 2-VIEW BREAST INC CAD Jovany Rizzo PA-C [address] [place] [address] Br Imaging [address] [place] [address] Referral ID Status Reason Start Date Expiration Date Visits Requested Visits Authorized [id number] Pending Review Auto-Generat ed Referral 07/07/2022 08/06/2023 1 1 [facility] for referral (narrative)* Diagnostic Procedure Only (Routine) - Closed Specialty Diagnoses / Procedures Referred By Contac t Referred To Contact US IMAGING Diagnoses Thyroid nodule Procedures US THYROID/PARATHYROID US SOFT TISSUE HEAD & NECK REAL TIME IMGE Jovany Saunders PA-C [address] [place] [address] [place] [address] Referral ID Status Reason Start Date Expiration Date V isits Requested Visits Authorized [id number] Closed Auto-Generate d Referral 05/19/2022 06/18/2023 1 1 [facility] Summary Purpose Family History No Family History Records FoundNo Family History Records Found Advance Directives Documents on File Type Date Recorded Patient Manager Marketing Communications Expl anation Advance Directive(s) Advance Directive(s) 03/21/2015 4:30 PM Documents on File Type Date Recorded Patient Manager Marketing Communications Expl anation Advance Directive(s) Advance Directive(s) 03/21/2015 4:30 PM Reason for Referral Specialty Diagnoses / Procedures Referred By Contac t Referred To Contact Cardiology Diagnoses SOB (shortness of breath) Procedures CONSULT TO CARDIOLOGY OFFICE/OUTPATIENT [facility] 60-74 MINUTES Samson Hogan MD [address] [place] [address] Referral ID Status Reason Start Date Expiration Date Visits Requested Visits Authorized [id number] Authorized PCP Requested Referral 06/01/2021 06/01/2022 1 1 Specialty Diagnoses / Procedures Referred By Arianaac t Referred To Contact MR IMAGING Diagnoses Liver mass Procedures MRI LIVER WO/W IVCON MRI ABDOMEN W/O & W/CONTRAST MATERIAL Samson Hogan MD [address] [id number] Mr Imaging Referral ID Status Reason Start Date Expiration Date Visits Requested Visits Authorized [id number] Pending Review Auto-Generat ed Referral 06/10/2021 07/10/2022 1 1 Specialty Diagnoses / Procedures Referred By Di t Referred To Contact Nutrition Diagnoses Type 2 diabetes mellitus without complication, with long-term current use of insulin (HCC) Procedures CONSULT TO NUTRITION THERAPY OFFICE/OUTPATIENT NEW HIGH MDM 60-74 MINUTES Samson Hogan MD [address] [phone] Referral ID Status Reason Start Date Expiration Date Visits Requested Visits Authorized [id number] Authorized PCP Requested Referral 06/02/2021 06/02/2022 1 1 Specialty Diagnoses / Procedures Referred By Arianaac t Referred To Contact Gynecology Diagnoses Low libido Screening for cervical cancer Procedures CONSULT TO GYNECOLOGY OFFICE/OUTPATIENT NEW HIGH MDM 60-74 MINUTES Jovany Rizzo PA-C [address] [phone] Referral ID Status Reason Start Date Expiration Date Visits Requested Visits Authorized [id number] Authorized PCP Requested Referral Auto-Generate d Referral 09/24/2021 09/24/2022 1 1 Specialty Diagnoses / Procedures Referred By Contac t Referred To Contact Ophthalmology Diagnoses Type 2 diabetes mellitus without complication, with long-term current use of insulin (HCC) Procedures CONSULT TO OPHTHALMOLOGY OFFICE/OUTPATIENT NEW HIGH MDM 60-74 MINUTES Jovany Rizzo PA-C [address] [place] [address] Referral ID Status Reason Start Date Expiration Date Visits Requested Visits Authorized [id number] Authorized PCP Requested Referral 09/24/2021 09/24/2022 1 1 Specialty Diagnoses / Procedures Referred By Contac t Referred To Contact Diagnoses Type 2 diabetes mellitus without complication, with long-term current use of insulin (HCC) Jovany Rizzo PA-C [address] [place] [address] Referral ID Status Reason Start Date Expiration Date Visits Re quested Visits Authorized [id number] Closed 1 1 Referral ID Status Reason Start Date Expiration Date Visits Re quested Visits Authorized [id number] Closed 1 1 Referral ID Status Reason Start Date Expiration Date Visits Re quested Visits Authorized [id number] Closed 1 1 Referral ID Status Reason Start Date Expiration Date Visits Re quested Visits Authorized [id number] Closed 1 1 Specialty Diagnoses / Procedures Referred By Contac t Referred To Contact Nephrology Diagnoses Albuminuria Type 2 diabetes mellitus with other specified complication, with long-term current use of insulin ([facility]) Procedures CONSULT TO NEPHROLOGY OFFICE/OUTPATIENT NEW HIGH MDM 60-74 MINUTES Jovany Rizzo PA-C [address] [place] [address] Referral ID Status Reason Start Date Expiration Date Visits Requested Visits Authorized [id number] Authorized PCP Requested Referral 10/25/2021 10/25/2022 1 1 Specialty Diagnoses / Procedures Referred By Contac t Referred To Contact Diagnoses Type 2 diabetes mellitus without complication, with long-term current use of insulin ([facility]) Samson Hogan MD [address] [place] [address] Referral ID Status Reason Start Date Expiration Date Visits Re quested Visits Authorized [id number] Closed 1 1 Referral ID Status Reason Start Date Expiration Date Visits Re quested Visits Authorized [id number] Closed 1 1 Specialty Diagnoses / Procedures Referred By Contac t Referred To Contact CT IMAGING Diagnoses Lung nodules Ground glass opacity present on imaging of lung Procedures CT CHEST WO IVCON DIAGNOSTIC COMPUTED TOMOGRAPHY THORAX W/O Patti Goss MD [address] [place] [address] Ct Imaging Referral ID Status Reason Start Date Expiration Date Visits Requested Visits Authorized [id number] Pending Review Auto-Generat ed Referral 05/18/2023 06/16/2023 1 1 Referral ID Status Reason Start Date Expiration Date Visits Re quested Visits Authorized [id number] Closed 1 1 Specialty Diagnoses / Procedures Referred By Contac t Referred To Contact Endocrinology Diagnoses Type 2 diabetes mellitus without complication, with long-term current use of insulin (HCC) Procedures CONSULT TO ENDOCRINOLOGY OFFICE/OUTPATIENT [facility] 60-74 MINUTES Samson Hogan MD [address] [place] [address] Referral ID Status Reason Start Date Expiration Date Visits Requested Visits Authorized [id number] Authorized PCP Requested Referral 07/21/2022 07/21/2023 1 1 Referral ID Status Reason Start Date Expiration Date Visits Re quested Visits Authorized [id number] Closed 1 1 Referral ID Status Reason Start Date Expiration Date Visits Re quested Visits Authorized [id number] Closed 1 1 Specialty Diagnoses / Procedures Referred By Contac t Referred To Contact General Surgery Diagnoses Thyroid nodule greater than or equal to 1 cm in diameter incidentally noted on imaging study Procedures CONSULT TO GENERAL SURGERY OFFICE/OUTPATIENT [facility] 60-74 MINUTES Jovany Rizzo PA-C [address] [place] [address] Referral ID Status Reason Start Date Expiration Date Visits Requested Visits Authorized [id number] Authorized PCP Requested Referral 3 11/27/2023 1 1 Specialty Diagnoses / Procedures Referred By Contac t Referred To Contact CT IMAGING Diagnoses Lung nodules Cigarette smoker History of renal cell cancer Procedures CT CHEST WO IVCON DIAGNOSTIC COMPUTED TOMOGRAPHY THORAX W/O Patti oGss MD [address] [place] [address] [place] [address] Referral ID Status Reason Start Date Expiration Date V isits Requested Visits Authorized [id number] Closed Auto-Generate d Referral 03/16/2022 05/15/2022 1 1 Referral ID Status Reason Start Date Expiration Date Visits Re quested Visits Authorized [id number] Closed 1 1 Additional Source Comments INFORMATION SOURCE (unrecogn ized section and content) DATE CREATED AUTHOR AUTHOR'S JAYY PERSAUD 11/29/2022 [facility] Source Comments (unrecognize d section and content) In the event this informatio n is protected by the Federal Confidentiality of Alcohol and Drug Abuse Patient Records regulations: The Federal rules restrict any use of the information to criminally investigate or prosecute any alcohol or drug abuse patient.[facility] the event this information is protected by the Federal Confidentiality of Alcohol and Drug Abuse Patient Records regulations: The Federal rules restrict any use of the information to criminally investigate or prosecute any alcohol or drug abuse patient.[facility] the event this information is protected by the Federal Confidentiality of Alcohol and Drug Abuse Patient Records regulations: The Federal rules restrict any use of the information to criminally investigate or prosecute any alcohol or drug abuse patient.[facility] Center[facility] the event this information is protected by the Federal Confidentiality of Alcohol and Drug Abuse Patient Records regulations: The Federal rules restrict any use of the information to criminally investigate or prosecute any alcohol or drug abuse patient.[facility] Center[facility] the event this information is protected by the Federal Confidentiality of Alcohol and Drug Abuse Patient Records regulations: The Federal rules restrict any use of the information to criminally investigate or prosecute any alcohol or drug abuse patient.[facility] Center[facility] the event this information is protected by the Federal Confidentiality of Alcohol and Drug Abuse Patient Records regulations: The Federal rules restrict any use of the information to criminally investigate or prosecute any alcohol or drug abuse patient.[facility] Center[facility] the event this information is protected by the Federal Confidentiality of Alcohol and Drug Abuse Patient Records regulations: The Federal rules restrict any use of the information to criminally investigate or prosecute any alcohol or drug abuse patient.[facility] CenterIn the event this information is protected by the Federal Confidentiality of Alcohol and Drug Abuse Patient Records regulations: The Federal rules restrict any use of the information to criminally investigate or prosecute any alcohol or drug abuse patient.[facility] CenterIn the event this information is protected by the Federal Confidentiality of Alcohol and Drug Abuse Patient Records regulations: The Federal rules restrict any use of the information to criminally investigate or prosecute any alcohol or drug abuse patient.[facility] CenterIn the event this information is protected by the Federal Confidentiality of Alcohol and Drug Abuse Patient Records regulations: The Federal rules restrict any use of the information to criminally investigate or prosecute any alcohol or drug abuse patient.[facility] CenterIn the event this information is protected by the Federal Confidentiality of Alcohol and Drug Abuse Patient Records regulations: The Federal rules restrict any use of the information to criminally investigate or prosecute any alcohol or drug abuse patient.[facility] CenterIn the event this information is protected by the Federal Confidentiality of Alcohol and Drug Abuse Patient Records regulations: The Federal rules restrict any use of the information to criminally investigate or prosecute any alcohol or drug abuse patient.[facility] CenterIn the event this information is protected by the Federal Confidentiality of Alcohol and Drug Abuse Patient Records regulations: The Federal rules restrict any use of the information to criminally investigate or prosecute any alcohol or drug abuse patient.[facility] CenterIn the event this information is protected by the Federal Confidentiality of Alcohol and Drug Abuse Patient Records regulations: The Federal rules restrict any use of the information to criminally investigate or prosecute any alcohol or drug abuse patient.[facility] CenterIn the event this information is protected by the Federal Confidentiality of Alcohol and Drug Abuse Patient Records regulations: The Federal rules restrict any use of the information to criminally investigate or prosecute any alcohol or drug abuse patient.[facility] CenterIn the event this information is protected by the Federal Confidentiality of Alcohol and Drug Abuse Patient Records regulations: The Federal rules restrict any use of the information to criminally investigate or prosecute any alcohol or drug abuse patient.[facility] CenterIn the event this information is protected by the Federal Confidentiality of Alcohol and Drug Abuse Patient Records regulations: The Federal rules restrict any use of the information to criminally investigate or prosecute any alcohol or drug abuse patient.[facility] CenterIn the event this information is protected by the Federal Confidentiality of Alcohol and Drug Abuse Patient Records regulations: The Federal rules restrict any use of the information to criminally investigate or prosecute any alcohol or drug abuse patient.[facility] CenterIn the event this information is protected by the Federal Confidentiality of Alcohol and Drug Abuse Patient Records regulations: The Federal rules restrict any use of the information to criminally investigate or prosecute any alcohol or drug abuse patient.[facility] CenterIn the event this information is protected by the Federal Confidentiality of Alcohol and Drug Abuse Patient Records regulations: The Federal rules restrict any use of the information to criminally investigate or prosecute any alcohol or drug abuse patient.[facility] CenterIn the event this information is protected by the Federal Confidentiality of Alcohol and Drug Abuse Patient Records regulations: The Federal rules restrict any use of the information to criminally investigate or prosecute any alcohol or drug abuse patient.[facility] CenterIn the event this information is protected by the Federal Confidentiality of Alcohol and Drug Abuse Patient Records regulations: The Federal rules restrict any use of the information to criminally investigate or prosecute any alcohol or drug abuse patient.[facility] CenterIn the event this information is protected by the Federal Confidentiality of Alcohol and Drug Abuse Patient Records regulations: The Federal rules restrict any use of the information to criminally investigate or prosecute any alcohol or drug abuse patient.[facility] CenterIn the event this information is protected by the Federal Confidentiality of Alcohol and Drug Abuse Patient Records regulations: The Federal rules restrict any use of the information to criminally investigate or prosecute any alcohol or drug abuse patient.[facility] CenterIn the event this information is protected by the Federal Confidentiality of Alcohol and Drug Abuse Patient Records regulations: The Federal rules restrict any use of the information to criminally investigate or prosecute any alcohol or drug abuse patient.[facility] CenterIn the event this information is protected by the Federal Confidentiality of Alcohol and Drug Abuse Patient Records regulations: The Federal rules restrict any use of the information to criminally investigate or prosecute any alcohol or drug abuse patient.[facility] CenterIn the event this information is protected by the Federal Confidentiality of Alcohol and Drug Abuse Patient Records regulations: The Federal rules restrict any use of the information to criminally investigate or prosecute any alcohol or drug abuse patient.[facility] CenterIn the event this information is protected by the Federal Confidentiality of Alcohol and Drug Abuse Patient Records regulations: The Federal rules restrict any use of the information to criminally investigate or prosecute any alcohol or drug abuse patient.[facility] CenterIn the event this information is protected by the Federal Confidentiality of Alcohol and Drug Abuse Patient Records regulations: The Federal rules restrict any use of the information to criminally investigate or prosecute any alcohol or drug abuse patient.[facility] CenterIn the event this information is protected by the Federal Confidentiality of Alcohol and Drug Abuse Patient Records regulations: The Federal rules restrict any use of the information to criminally investigate or prosecute any alcohol or drug abuse patient.[facility] CenterIn the event this information is protected by the Federal Confidentiality of Alcohol and Drug Abuse Patient Records regulations: The Federal rules restrict any use of the information to criminally investigate or prosecute any alcohol or drug abuse patient.[facility] CenterIn the event this information is protected by the Federal Confidentiality of Alcohol and Drug Abuse Patient Records regulations: The Federal rules restrict any use of the information to criminally investigate or prosecute any alcohol or drug abuse patient.[facility] CenterIn the event this information is protected by the Federal Confidentiality of Alcohol and Drug Abuse Patient Records regulations: The Federal rules restrict any use of the information to criminally investigate or prosecute any alcohol or drug abuse patient.[facility] CenterIn the event this information is protected by the Federal Confidentiality of Alcohol and Drug Abuse Patient Records regulations: The Federal rules restrict any use of the information to criminally investigate or prosecute any alcohol or drug abuse patient.[facility] CenterIn the event this information is protected by the Federal Confidentiality of Alcohol and Drug Abuse Patient Records regulations: The Federal rules restrict any use of the information to criminally investigate or prosecute any alcohol or drug abuse patient.[facility] CenterIn the event this information is protected by the Federal Confidentiality of Alcohol and Drug Abuse Patient Records regulations: The Federal rules restrict any use of the information to criminally investigate or prosecute any alcohol or drug abuse patient.[facility] CenterIn the event this information is protected by the Federal Confidentiality of Alcohol and Drug Abuse Patient Records regulations: The Federal rules restrict any use of the information to criminally investigate or prosecute any alcohol or drug abuse patient.[facility] CenterIn the event this information is protected by the Federal Confidentiality of Alcohol and Drug Abuse Patient Records regulations: The Federal rules restrict any use of the information to criminally investigate or prosecute any alcohol or drug abuse patient.[facility] CenterIn the event this information is protected by the Federal Confidentiality of Alcohol and Drug Abuse Patient Records regulations: The Federal rules restrict any use of the information to criminally investigate or prosecute any alcohol or drug abuse patient.[facility] CenterIn the event this information is protected by the Federal Confidentiality of Alcohol and Drug Abuse Patient Records regulations: The Federal rules restrict any use of the information to criminally investigate or prosecute any alcohol or drug abuse patient.[facility] CenterIn the event this information is protected by the Federal Confidentiality of Alcohol and Drug Abuse Patient Records regulations: The Federal rules restrict any use of the information to criminally investigate or prosecute any alcohol or drug abuse patient.[facility] CenterIn the event this information is protected by the Federal Confidentiality of Alcohol and Drug Abuse Patient Records regulations: The Federal rules restrict any use of the information to criminally investigate or prosecute any alcohol or drug abuse patient.[facility] CenterIn the event this information is protected by the Federal Confidentiality of Alcohol and Drug Abuse Patient Records regulations: The Federal rules restrict any use of the information to criminally investigate or prosecute any alcohol or drug abuse patient.[facility] CenterIn the event this information is protected by the Federal Confidentiality of Alcohol and Drug Abuse Patient Records regulations: The Federal rules restrict any use of the information to criminally investigate or prosecute any alcohol or drug abuse patient.[facility] CenterIn the event this information is protected by the Federal Confidentiality of Alcohol and Drug Abuse Patient Records regulations: The Federal rules restrict any use of the information to criminally investigate or prosecute any alcohol or drug abuse patient.[facility] CenterIn the event this information is protected by the Federal Confidentiality of Alcohol and Drug Abuse Patient Records regulations: The Federal rules restrict any use of the information to criminally investigate or prosecute any alcohol or drug abuse patient.[facility] CenterIn the event this information is protected by the Federal Confidentiality of Alcohol and Drug Abuse Patient Records regulations: The Federal rules restrict any use of the information to criminally investigate or prosecute any alcohol or drug abuse patient.[facility] CenterIn the event this information is protected by the Federal Confidentiality of Alcohol and Drug Abuse Patient Records regulations: The Federal rules restrict any use of the information to criminally investigate or prosecute any alcohol or drug abuse patient.[facility] CenterIn the event this information is protected by the Federal Confidentiality of Alcohol and Drug Abuse Patient Records regulations: The Federal rules restrict any use of the information to criminally investigate or prosecute any alcohol or drug abuse patient.[facility] CenterIn the event this information is protected by the Federal Confidentiality of Alcohol and Drug Abuse Patient Records regulations: The Federal rules restrict any use of the information to criminally investigate or prosecute any alcohol or drug abuse patient.[facility] CenterIn the event this information is protected by the Federal Confidentiality of Alcohol and Drug Abuse Patient Records regulations: The Federal rules restrict any use of the information to criminally investigate or prosecute any alcohol or drug abuse patient.[facility] CenterIn the event this information is protected by the Federal Confidentiality of Alcohol and Drug Abuse Patient Records regulations: The Federal rules restrict any use of the information to criminally investigate or prosecute any alcohol or drug abuse patient.[facility] CenterIn the event this information is protected by the Federal Confidentiality of Alcohol and Drug Abuse Patient Records regulations: The Federal rules restrict any use of the information to criminally investigate or prosecute any alcohol or drug abuse patient.[facility] CenterIn the event this information is protected by the Federal Confidentiality of Alcohol and Drug Abuse Patient Records regulations: The Federal rules restrict any use of the information to criminally investigate or prosecute any alcohol or drug abuse patient.[facility] CenterIn the event this information is protected by the Federal Confidentiality of Alcohol and Drug Abuse Patient Records regulations: The Federal rules restrict any use of the information to criminally investigate or prosecute any alcohol or drug abuse patient.[facility] CenterIn the event this information is protected by the Federal Confidentiality of Alcohol and Drug Abuse Patient Records regulations: The Federal rules restrict any use of the information to criminally investigate or prosecute any alcohol or drug abuse patient.[facility] CenterIn the event this information is protected by the Federal Confidentiality of Alcohol and Drug Abuse Patient Records regulations: The Federal rules restrict any use of the information to criminally investigate or prosecute any alcohol or drug abuse patient.[facility] CenterIn the event this information is protected by the Federal Confidentiality of Alcohol and Drug Abuse Patient Records regulations: The Federal rules restrict any use of the information to criminally investigate or prosecute any alcohol or drug abuse patient.[facility] CenterIn the event this information is protected by the Federal Confidentiality of Alcohol and Drug Abuse Patient Records regulations: The Federal rules restrict any use of the information to criminally investigate or prosecute any alcohol or drug abuse patient.[facility] CenterIn the event this information is protected by the Federal Confidentiality of Alcohol and Drug Abuse Patient Records regulations: The Federal rules restrict any use of the information to criminally investigate or prosecute any alcohol or drug abuse patient.[facility] CenterIn the event this information is protected by the Federal Confidentiality of Alcohol and Drug Abuse Patient Records regulations: The Federal rules restrict any use of the information to criminally investigate or prosecute any alcohol or drug abuse patient.[facility] CenterIn the event this information is protected by the Federal Confidentiality of Alcohol and Drug Abuse Patient Records regulations: The Federal rules restrict any use of the information to criminally investigate or prosecute any alcohol or drug abuse patient.[facility] CenterIn the event this information is protected by the Federal Confidentiality of Alcohol and Drug Abuse Patient Records regulations: The Federal rules restrict any use of the information to criminally investigate or prosecute any alcohol or drug abuse patient.[facility] CenterIn the event this information is protected by the Federal Confidentiality of Alcohol and Drug Abuse Patient Records regulations: The Federal rules restrict any use of the information to criminally investigate or prosecute any alcohol or drug abuse patient.[facility] CenterIn the event this information is protected by the Federal Confidentiality of Alcohol and Drug Abuse Patient Records regulations: The Federal rules restrict any use of the information to criminally investigate or prosecute any alcohol or drug abuse patient.[facility] CenterIn the event this information is protected by the Federal Confidentiality of Alcohol and Drug Abuse Patient Records regulations: The Federal rules restrict any use of the information to criminally investigate or prosecute any alcohol or drug abuse patient.[facility] CenterIn the event this information is protected by the Federal Confidentiality of Alcohol and Drug Abuse Patient Records regulations: The Federal rules restrict any use of the information to criminally investigate or prosecute any alcohol or drug abuse patient.[facility] CenterIn the event this information is protected by the Federal Confidentiality of Alcohol and Drug Abuse Patient Records regulations: The Federal rules restrict any use of the information to criminally investigate or prosecute any alcohol or drug abuse patient.[facility] CenterIn the event this information is protected by the Federal Confidentiality of Alcohol and Drug Abuse Patient Records regulations: The Federal rules restrict any use of the information to criminally investigate or prosecute any alcohol or drug abuse patient.[facility] CenterIn the event this information is protected by the Federal Confidentiality of Alcohol and Drug Abuse Patient Records regulations: The Federal rules restrict any use of the information to criminally investigate or prosecute any alcohol or drug abuse patient.[facility] Reason for Visit (unrecogniz ed section and content) Reason Onset Date Comments Refill Request 05/29/2021 Specialty Diagnoses / Procedures Referred By Di hardy Referred To Contact MR IMAGING Diagnoses Liver mass R16.0 (ICD-10-CM) - Liver mass Procedures MRI LIVER WO/W IVCON MRI,ABDOMEN,W&WO CONTRS MRI LIVER WO/W IVCON Samson Hogan MD [address] [place] [address] Mr Imaging Referral ID Status Reason Start [...] NECK REAL TIME IMGE Jovany Saunders PA-C [address] [place] [address] [place] [address] Referral ID Status Reason Start Date Expiration Date V isits Requested Visits Authorized [id number] Closed Auto-Generate d Referral 05/19/2022 06/18/2023 [address] Specialty Diagnoses / Procedures Referred By Contac t Referred To Contact CT IMAGING Diagnoses Lung nodules Cigarette smoker History of renal cell cancer Procedures CT CHEST WO IVCON DIAGNOSTIC COMPUTED TOMOGRAPHY THORAX W/O Patti Goss MD [address] [place] [address] [place] [address] Referral ID Status Reason Start Date Expiration Date V isits Requested Visits Authorized [id number] Closed Auto-Generate d Referral 03/16/2022 05/15/2022 1 1 Reason Onset Date Comments Refill Request 12/27/2022 Reason Onset Date Comments Refill Request 01/17/2023 Reason Onset Date Comments Refill Request 01/28/2023 Care Teams (unrecognized sec tion and content) Handy Worker Relationship Specialty Start Date End Date Samsno Hogan MD [address] [place] [address] PCP - General Family Practice [facility]10[facility] [address] [place] [address] Pharmacist Pharmacy 12/28/18 Handy Worker Relationship Specialty Start Date End Date Samson Hogan MD [address] [place] [address] PCP - General Family Practice 11/10/12 [facility] [address] [place] [address] Pharmacist Pharmacy 12/28/18 Handy Worker Relationship Specialty Start Date End Date Samson Hogan MD [address] [place] [address] PCP - General Family Practice 11/10/12 [facility] [address] [place] [address] Pharmacist Pharmacy 12/28/18 Handy Worker Relationship Specialty Start Date End Date Samson Hogan MD [address] [place] [address] PCP - General Family Practice 11/10/12 [facility] [address] [place] [address] Pharmacist Pharmacy 12/28/18 Handy Worker Relationship Specialty Start Date End Date Samson Hogan MD [address] [place] [address] PCP - General Family Practice 11/10/12 Mat Davidson, [facility] [address] [place] [address] Pharmacist Pharmacy 12/28/18 Handy Worker Relationship Specialty Start Date End Date Perez, Samson J, MD [address] [place] [address] PCP - General Family Practice 11/10/12 Mat Davidson, [facility] [address] [place] [address] Pharmacist Pharmacy 12/28/18 Handy Worker Relationship Specialty Start Date End Date Samson Hogan MD [address] [place] [address] PCP - General Family Practice 11/10/12 Mat Davidson, [facility] [address] [place] [address] Pharmacist Pharmacy 12/28/18 Handy Worker Relationship Specialty Start Date End Date Samson Hogan MD [address] [place] [address] PCP - General Family Practice 11/10/12 Mat Davidson, [facility] [address] [place] [address] Pharmacist Pharmacy 12/28/18 Handy Worker Relationship Specialty Start Date End Date Jovany Rizzo PA-C [address] [place] [address] PCP - General Family Practice 07/10/21 Mat Davidson, [facility] [address] [place] [address] Pharmacist Pharmacy 12/28/18 Handy Worker Relationship Specialty Start Date End Date Jovany Rizzo PA-C [address] [place] [address] PCP - General Family Practice 07/10/21 Mat Davidson, [facility] [address] [place] [address] Pharmacist Pharmacy 12/28/18 Handy Worker Relationship Specialty Start Date End Date Samson Hogan MD [address] [facility] [place] [address] PCP - General Family Practice 11/10/12 07/09/21 [facility] [address] [facility] [place] [address] Pharmacist Pharmacy 12/28/18 Handy Worker Relationship Specialty Start Date End Date Jovany Rizzo PA-C [address] [facility] [place] [address] PCP - General Family Practice 07/10/21 Mat Davidson, [facility] [address] [facility] [place] [address] Pharmacist Pharmacy 12/28/18 Handy Worker Relationship Specialty Start Date End Date Jovany Rizzo PA-C [address] [facility] [place] [address] PCP - General Family Practice 07/10/21 Mat Davidson, [facility] [address] [facility] [place] [address] Pharmacist Pharmacy 12/28/18 Handy Worker Relationship Specialty Start Date End Date Jovany Rizzo PA-C [address] [facility] [place] [address] PCP - General Family Practice 07/10/21 Mat Davidson, [facility] [address] [facility] [place] [address] Pharmacist Pharmacy 12/28/18 Handy Worker Relationship Specialty Start Date End Date Jovany Rizzo PA-C [address] [facility] [place] [address] PCP - General Family Practice 07/10/21 Mat Davidson, [facility] [address] [facility] [place] [address] Pharmacist Pharmacy 12/28/18 Handy Worker Relationship Specialty Start Date End Date Jovany Rizzo PA-C [address] [facility] [place] [address] PCP - General Family Practice 07/10/21 [facility] [address] [facility] [place] [address] Pharmacist Pharmacy 12/28/18 Handy Worker Relationship Specialty Start Date End Date Jovany Rizzo PA-C [address] [facility] [place] [address] PCP - General Family Practice 07/10/21 [facility] [address] [facility] [place] [address] Pharmacist Pharmacy 12/28/18 Handy Worker Relationship Specialty Start Date End Date Jovany Rizzo PA-C [address] [facility] [place] [address] PCP - General Family Practice 07/10/21 Mat Davidson, [facility] [address] [facility] [place] [address] Pharmacist Pharmacy 12/28/18 Handy Worker Relationship Specialty Start Date End Date Jovany Rizzo PA-C [address] [facility] [place] [address] PCP - General Family Practice 07/10/21 Mat Davidson, [facility] [address] [facility] [place] [address] Pharmacist Pharmacy 12/28/18 Handy Worker Relationship Specialty Start Date End Date Jovany Rizzo PA-C [address] [place] [address] PCP - General Family Medicine 07/10/21 [facility] [address] [place] [address] Pharmacist Pharmacy 12/28/18 Handy Worker Relationship Specialty Start Date End Date Jovany Rizzo PA-C [address] [place] [address] PCP - General Family Medicine 07/10/21 Mat Davidson, [facility] [address] [place] [address] Pharmacist Pharmacy 12/28/18 Handy Worker Relationship Specialty Start Date End Date Jovany Rizzo PA-C [address] [place] [address] PCP - General Family Medicine 07/10/21 LeifMat barahona, Formerly [facility] [address] [place] [address] Pharmacist Pharmacy 12/28/18 Handy Worker Relationship Specialty Start Date End Date Jovany Rizzo PA-C [address] [place] [address] PCP - General Family Medicine 07/10/21 LeifMat barahona, Formerly [facility] [address] [place] [address] Pharmacist Pharmacy 12/28/18 Handy Worker Relationship Specialty Start Date End Date Jovany Rizzo PA-C [address] [place] [address] PCP - General Family Medicine 07/10/21 Mat Davidson, Formerly [facility] [address] [place] [address] Pharmacist Pharmacy 12/28/18 Handy Worker Relationship Specialty Start Date End Date Jovany Rizzo PA-C [address] [place] [address] PCP - General Family Medicine 07/10/21 LeifMat barahona, Formerly [facility] [address] [place] [address] Pharmacist Pharmacy 12/28/18 Handy Worker Relationship Specialty Start Date End Date Jovany Rizzo PA-C [address] [place] [address] PCP - General Family Medicine 07/10/21 Mat Davidson, Formerly [facility] [address] [place] [address] Pharmacist Pharmacy 12/28/18 Handy Worker Relationship Specialty Start Date End Date Jovany Rizzo PA-C [address] [facility] [place] [address] PCP - General Family Medicine 07/10/21 StuartBenbell, Formerly [facility] [address] [place] [address] Pharmacist Pharmacy 12/28/18 Handy Worker Relationship Specialty Start Date End Date Jovany Rizzo PA-C [address] [place] [address] PCP - General Family Medicine 07/10/21 aMt Davidson, Formerly [facility] [address] [place] [address] Pharmacist Pharmacy 12/28/18 Handy Worker Relationship Specialty Start Date End Date Jovany Rizzo PA-C [address] [place] [address] PCP - General Family Medicine 07/10/21 Mat Davidson, Formerly [facility] [address] [place] [address] Pharmacist Pharmacy 12/28/18 Handy Worker Relationship Specialty Start Date End Date Jovany Rizzo PA-C [address] [place] [address] PCP - General Family Medicine 07/10/21 Mat Davidson, Formerly [facility] [address] [place] [address] Pharmacist Pharmacy 12/28/18 Handy Worker Relationship Specialty Start Date End Date Jovany Rizzo PA-C [address] [place] [address] PCP - General Family Medicine 07/10/21 Mat Davidson, Formerly [facility] [address] [place] [address] Pharmacist Pharmacy 12/28/18 Handy Worker Relationship Specialty Start Date End Date Jovany Rizzo PA-C [address] [place] [address] PCP - General Family Medicine 07/10/21 Mat Davidson, Formerly [facility] [address] [place] [address] Pharmacist Pharmacy 12/28/18 Handy Worker Relationship Specialty Start Date End Date Jovany Rizzo PA-C [address] [place] [address] PCP - General Family Medicine 07/10/21 Mat Davidson, Formerly [facility] [address] [place] [address] Pharmacist Pharmacy 12/28/18 Handy Worker Relationship Specialty Start Date End Date Jovany Rizzo PA-C [address] [place] [address] PCP - General Family Medicine 07/10/21 Mat Davidson, Formerly [facility] [address] [facility] [place] [address] Pharmacist Pharmacy 12/28/18 Handy Worker Relationship Specialty Start Date End Date Jovany Rizzo PA-C [address] [facility] [place] [address] PCP - General Family Medicine 07/10/21 [facility] [address] [facility] [place] [address] Pharmacist Pharmacy 12/28/18 Handy Worker Relationship Specialty Start Date End Date Jovany Rizzo PA-C [address] [place] [address] PCP - General Family Medicine 07/10/21 [facility] [address] [place] [address] Pharmacist Pharmacy 12/28/18 Handy Worker Relationship Specialty Start Date End Date Jovany Rizzo PA-C [address] [place] [address] PCP - General Family Medicine 07/10/21 [facility] [address] [place] [address] Pharmacist Pharmacy 12/28/18 Handy Worker Relationship Specialty Start Date End Date Jovany Rizzo PA-C [address] [place] [address] PCP - General Family Medicine 07/10/21 [facility] [address] [place] [address] Pharmacist Pharmacy 12/28/18 Handy Worker Relationship Specialty Start Date End Date Jovany Rizzo PA-C [address] [place] [address] PCP - General Family Medicine 07/10/21 [facility] [address] [facility] [place] [address] Pharmacist Pharmacy 12/28/18 Handy Worker Relationship Specialty Start Date End Date Jovany Rizzo PA-C [address] [place] [address] PCP - General Family Medicine 07/10/21 [facility] [address] [facility] [place] [address] Pharmacist Pharmacy 12/28/18 Handy Worker Relationship Specialty Start Date End Date Jovany Rizzo PA-C [address] [place] [address] PCP - General Family Medicine 07/10/21 [facility] [address] [facility] [place] [address] Pharmacist Pharmacy 12/28/18 Handy Worker Relationship Specialty Start Date End Date Jovany Rizzo PA-C [address] [place] [address] PCP - General Family Medicine 07/10/21 [facility] [address] [facility] [place] [address] Pharmacist Pharmacy 12/28/18 Handy Worker Relationship Specialty Start Date End Date Jovany Rizzo PA-C [address] [place] [address] PCP - General Family Medicine 07/10/21 [facility], [facility] [address] [facility] [place] [address] Pharmacist Pharmacy 12/28/18 Handy Worker Relationship Specialty Start Date End Date Jovany Rizzo PA-C [address] [place] [address] PCP - General Family Medicine 07/10/21 Mat Davidson, Formerly [facility] [address] [place] [address] Pharmacist Pharmacy 12/28/18 Handy Worker Relationship Specialty Start Date End Date Jovany Rizzo PA-C [address] [place] [address] PCP - General Family Medicine 07/10/21 Mat Davidson, Formerly [facility] [address] [place] [address] Pharmacist Pharmacy 12/28/18 Handy Worker Relationship Specialty Start Date End Date Jovany Rizzo PA-C [address] [place] [address] PCP - General Family Medicine 07/10/21 Mat Davidson, Formerly [facility] [address] [place] [address] Pharmacist Pharmacy 12/28/18 Handy Worker Relationship Specialty Start Date End Date Jovany Rizzo PA-C [address] [place] [address] PCP - General Family Medicine 07/10/21 Mat Davidson, Formerly [facility] [address] [place] [address] Pharmacist Pharmacy 12/28/18 Handy Worker Relationship Specialty Start Date End Date Jovany Rizzo PA-C [address] [place] [address] PCP - General Family Medicine 07/10/21 Mat Davidson, Formerly [facility] [address] [place] [address] Pharmacist Pharmacy 12/28/18 Handy Worker Relationship Specialty Start Date End Date Jovany Rizzo PA-C [address] [place] [address] PCP - General Family Medicine 07/10/21 Mat Davidson, Formerly [facility] [address] [place] [address] Pharmacist Pharmacy 12/28/18 Handy Worker Relationship Specialty Start Date End Date Jovany Rizzo PA-C [address] [place] [address] PCP - General Family Medicine 07/10/21 Mat Davidson, Formerly [facility] Pharmacist Pharmacy 12/28/18 Handy Worker Relationship Specialty Start Date End Date Jovany Rizzo PA-C [address] [place] [address] PCP - General Family Medicine 07/10/21 Mat Davidson, Formerly [facility] Pharmacist Pharmacy 12/28/18 Handy Worker Relationship Specialty Start Date End Date Jovany Rizzo PA-C [address] [place] [address] PCP - General Family Medicine 07/10/21 Mat Davidson, Formerly [facility] Pharmacist Pharmacy 12/28/18 Handy Worker Relationship Specialty Start Date End Date Jovany Rizzo PA-C [address] [place] [address] PCP - General Family Medicine 07/10/21 Mat Davidson, Formerly [facility] Pharmacist Pharmacy 12/28/18 FOR RECORDS PERTAINING TO [...] BE BASED ON THE PRIMARY CLINICAL RECORDS. [employer] provides no warranty or guarantee of the accuracy or completeness of information in this document.
[2023-02-25 20:23] LABS: Procalcitonin < 0.01 ng/mL (0.00-0.09)
[2023-02-25] MEDS: Insulin Lispro 100 UNIT/ML INSULN.PEN SC (21:17)
[2023-02-25 21:43] LABS: Bedside Glucose 433 mg/dL (74-106)
--- NOTE | 2023-02-25 22:23 | CPS ---
Patient has come CPAP in room. Set up by RT. Home Settings: CPAP-11 with 2L bleed in. Patient can put mask on by self.
[2023-02-25] MEDS: Atorvastatin Calcium 40 MG Tablet PO (22:59)
[2023-02-25] MEDS: Insulin Glargine-YFGN 100 UNIT/ML Pen 83 UNIT SC (22:59)
[2023-02-25] MEDS: Enoxaparin 40 MG/0.4 ML Syringe SC (22:59)
[2023-02-25] MEDS: busPIRone 5 MG Tablet PO (22:59)
[2023-02-25] MEDS: Gabapentin 300 MG Capsule PO (23:06)
[2023-02-25] MEDS: Miconazole Nitrate 43 GM Bottle 1 APPLIC TOPICAL (23:32)
[2023-02-26] VITALS (13 sets, daily range): BP systolic 120–166; BP diastolic 65–75; PULSE 76–94; RESP 20–24; TEMP 36.4–36.8; O2SAT 92–100; BMI 54.3
[2023-02-26] MEDS: 0.9% Normal Saline (1000mL) 1,000 ML 150 ML IV ×2 (00:37→06:57)
[2023-02-26] MEDS: 0.9% Saline Lock 10 ML Syringe IV ×2 (00:37→14:55)
[2023-02-26] MEDS: Insulin Lispro 100 UNIT/ML INSULN.PEN 20 UNIT SC (00:37)
[2023-02-26 00:48] LABS: Bedside Glucose > 500 mg/dL (74-106)
[2023-02-26 02:11] LABS: M R Staph aureus DNA By PCR Negative (Negative); Probe Check PASS; Specimen Processing Control PASS
[2023-02-26 02:44] LABS: Bedside Glucose 398 mg/dL (74-106)
--- NOTE | 2023-02-26 02:48 | CPS ---
increased oxygen bleed in to 8L on home CPAP. Patient desaturating into the low 80s.
[2023-02-26] MEDS: Insulin Lispro 100 UNIT/ML INSULN.PEN 10 UNIT SC (03:13)
[2023-02-26] MEDS: Gabapentin 300 MG Capsule PO ×3 (06:29→21:44)
[2023-02-26] MEDS: busPIRone 5 MG Tablet PO ×3 (06:30→21:44)
[2023-02-26 06:56] LABS: Absolute Lymphocyte Count 1.18 X10^3/uL (0.83-4.51); Absolute Neutrophil Count 13.2 X10^3/uL (2.0-7.7); Basophil# 0.08 X10^3/uL; Basophil% 0.5 % (0-1); Eosinophil# 0.04 X10^3/uL; Eosinophils% 0.3 % (0-5); Hematocrit 44.1 % (37-47); Hemoglobin 13.3 g/dL (12.0-15.0); Lymphocyte # 1.18 X10^3/ul (0.83-4.51); Lymphocyte % 7.8 % (19-41); Mean Corp Hgb Conc 30.2 g/dL (32-36); Mean Corpuscular Hgb 26.9 pg (27.0-32.0); Mean Corpuscular Volume 89.1 fL (81-99); Monocyte# 0.43 X10^3/uL; Monocyte% 2.8 % (0-10); NRBC Flagged by Analyzer 0 % (0-5); Neutrophil % 87.1 % (47-70); Platelet Count 290 K/mm3 (150-450); RBC Distribution Width CV 13.6 % (11.6-14.6); RBC Distribution Width SD 44.3 fl (35.1-43.9); Red Blood Count 4.95 M/mm3 (4.2-5.4); White Blood Count 15.2 K/mm3 (4.4-11.0)
[2023-02-26] MEDS: Insulin Lispro 100 UNIT/ML INSULN.PEN SC ×3 (06:56→17:17)
[2023-02-26] MEDS: Insulin Lispro 100 UNIT/ML INSULN.PEN 63 UNIT SC (06:56)
[2023-02-26 07:23] LABS: Bedside Glucose 318 mg/dL (74-106)
[2023-02-26] MEDS: Ipratropium/Albuterol Sulfate 3 ML AMPUL.NEB INHALATION ×3 (07:35→20:15)
[2023-02-26] MEDS: Potassium Chloride Oral Tablet 20 MEQ PO (07:49)
[2023-02-26] MEDS: Acetaminophen 325 MG Tablet 650 MG PO ×2 (07:50→14:54)
--- NOTE | 2023-02-26 07:54 | PCM.PN.HOSP ---
Reason for Visit Reason for Visit: Diagnoses Chronic obstructive pulmonary disease with (acute) exacerbation (02/25/23) Subjective Subjective Patient is a 57-year-old lady with multiple comorbidities who presented with progressive shortness of breath and assessment of acute on chronic hypoxic respiratory failure made admitted to regular nursing floor for further management Objective Data Objective Data Vital Signs: Vital Signs Temp Pulse Resp BP Pulse Ox O2 Del Method O2 Flow Rate 98.3 F 81 22 H 143/66 H 93 Nasal Cannula 6 02/26/23 06:33 02/26/23 07:35 02/26/23 07:35 02/26/23 06:33 02/26/23 07:35 02/26/23 07:35 02/26/23 07:35 Oxygen Flow Rate (L/min) 6 Oxygen Delivery Method Nasal Cannula Weight: 147.87 kg Body Mass Index (BMI) 54.3 Intake & Output: Intake and Output for Last 24 Hours 02/24/23 02/25/23 02/26/23 23:59 23:59 23:59 Intake Total 50 / 50 950 / 950 Balance 50 / 50 950 / 950 Lab / Micro Data 02/26/23 06:08 02/26/23 06:08 Labs: Laboratory Results - last 24 hr 02/25/23 15:35: WBC 16.2 H, RBC 5.13, Hgb 13.5, Hct 45.6, MCV 88.9, MCH 26.3 L, MCHC 29.6 L, RDW Std Deviation 44.9 H, RDW Coeff of Ramy 13.7, Plt Count 267, MPV 9.9, Immature Gran % (Auto) 0.600, Neut % (Auto) 79.4 H, Lymph % (Auto) 11.1 L, [place] % (Auto) 7.2, Eos % (Auto) 1.1, Baso % (Auto) 0.6, Absolute Neuts (auto) 12.9 H, Absolute Lymphs (auto) 1.79, Nucleated RBC % 0, Sodium 140, Potassium 3.9, Chloride 98, Carbon Dioxide 38.0 H, Anion Gap 4 L, BUN 30 H, Creatinine 0.70, Estim Creat Clear Calc 134.13, Est GFR (MDRD) Af Amer 110, Est GFR (MDRD) Non-Af 91, BUN/Creatinine Ratio 42.6 H, Glucose 261 H, Lactic Acid 1.6, Calcium 8.6, B-Natriuretic Peptide 55.2, Procalcitonin < 0.01 02/25/23 21:14: POC Glucose 433 H 02/25/23 23:37: MRSA (PCR) Negative 02/25/23 23:56: POC Glucose > 500 H* 02/26/23 02:25: POC Glucose 398 H 02/26/23 06:08: WBC 15.2 H, RBC 4.95, Hgb 13.3, Hct 44.1, MCV 89.1, MCH 26.9 L, MCHC 30.2 L, RDW Std Deviation 44.3 H, RDW Coeff of Ramy 13.6, Plt Count 290, MPV 10.0, Immature Gran % (Auto) 1.500 H, Neut % (Auto) 87.1 H, Lymph % (Auto) 7.8 L, [place] % (Auto) 2.8, Eos % (Auto) 0.3, Baso % (Auto) 0.5, Absolute Neuts (auto) 13.2 H, Absolute Lymphs (auto) 1.18, Nucleated RBC % 0 02/26/23 06:54: POC Glucose 318 H Micro: Microbiology 02/25/23 22:00 Mucosa - Nasopharyngeal Respiratory Panel (PCR) - Final Rhinovirus 02/25/23 22:40 Urine, Clean Catch Legionella Antigen - Final 02/25/23 22:40 Urine, Clean Catch Streptococcus pneumoniae Antigen (M - Final 02/25/23 15:36 Mucosa - Nose SARS-CoV-2, Influenza & RSV (PCR) - Final Radiography Diagnostic Testing: Radiology Impression Chest X-Ray 02/25/23 15:41 IMPRESSION: Mild CHF or interstitial infiltrates Electronically Signed: Dakota Montague MD at 16:51 EST Reading Location ID and State: [facility] / [place] Tel , Service support , Physical Exam Narrative GENERAL: cooperative, on BiPAP HEENT: Atraumatic; normocephalic EYES; Anicteric, Normal Conjunctiva NECK; supple, normal thyroid, RESPIRATORY: Diminished to auscultation CARDIOVASCULAR: Regular S1 S2, GI: soft, normoactive bowel sounds, : No Renal angle tenderness; EXTREMITIES: edema, no clubbing, MUSCULOSKELETAL: no muscle wasting NEURO: no lateralizing signs. SKIN: No Rash PSYCH; Flat affect Assessment & Plan Assessment/Plan (1) COPD with acute exacerbation: PLAN: Plan Patient is a 57-year-old lady with multiple comorbidities who presented with progressive shortness of breath and assessment of acute on chronic hypoxic respiratory failure made admitted to regular nursing floor for further management 1. Acute on chronic hypoxic respiratory failure ? Secondary to acute rhinovirus infection with COPD exacerbation as well as congestive heart failure 2. Acute rhinovirus infection ? Plan is to treat symptomatically 3. COPD with acute exacerbation ? Brought on by patient rhinovirus infection. Admitted to monitored bed managed with systemic steroid antibiotics bronchodilator treatment as well as supplemental oxygen 4. Acute on chronic congestive heart failure with preserved ejection fraction ? Patient placed on strict input and output, daily weight, low-sodium diet and furosemide 5. Chronic hypoxic respiratory failure ? Secondary to COPD, obesity hypoventilation syndrome patient is on baseline home oxygen 6. Class III obesity with BMI of 54.2 ? Complicating care weight loss advised 7. Obstructive sleep apnea ? BiPAP at night 8. Diabetes mellitus type II -patient's oral hypoglycemics held. Placed on long acting insulin, Accu-Cheks a.c. and at bedtime and covered with sliding scale insulin 9. Dyslipidemia -Patient is on statin therapy, continued at home dose 10. Hypertension - Blood pressure controlled, home medications continued with dose adjustment as needed 11. Diabetic polyneuropathy ? Patient is on gabapentin did continue 12. Depression with anxiety ? Patient is on buspirone as well as venlafaxine did continue 13. Tobacco dependence - Counseled on cessation, offered nicotine patch for tobacco cravings 14. DVT prophylaxis - On enoxaparin Time spent in the patient's overall evaluation,decision-making process, review of diagnostic data, adjustment of management, discussion with other providers, nursing nursing and ancillary staff involved in patient's care documentation, 50 Minutes Charges/Coding Visit Charges Inpatient E&M: 34327 [facility] Hosp L3
[2023-02-26 08:54] LABS: ALB/GLOB Ratio 0.4 RATIO (0.9-2.4); AST(SGOT) 13 U/L (15-37); Alanine Aminotransfer ALT/SGPT 19 U/L (13-56); Albumin, Serum 2.1 g/dL (3.2-5.0); Alkaline Phosphatase 108 U/L (45-117); Anion Gap 6 (5-15); BUN 27 mg/dL (7-18); BUN/Creat Ratio 32.1 RATIO (10-20); Calcium,Total 8.3 mg/dL (8.5-10.1); Chloride 97 mmol/L (98-107); Creatinine, Serum 0.84 mg/dL (0.55-1.02); EST Glomerular Filtration Rate 74 mL/min (>60); Est Glom Filt Rate - Afr Amer 90 mL/min (>60); Globulin 5.5 g/dL (2.2-4.2); Glucose 349 mg/dL (74-106); Potassium 3.6 mmol/L (3.5-5.1); Protein, Total 7.6 g/dL (6.4-8.2); Sodium Level 138 mmol/L (136-145)
[2023-02-26] MEDS: Ceftriaxone 1 GM/50 ML BAG IV (09:59)
[2023-02-26] MEDS: Enoxaparin 40 MG/0.4 ML Syringe SC ×2 (10:01→21:44)
[2023-02-26] MEDS: Furosemide 40 MG Tablet PO (10:02)
[2023-02-26] MEDS: Aspirin E.C. 81 MG Tablet PO (10:02)
[2023-02-26] MEDS: Atenolol 50 MG Tablet PO (10:03)
[2023-02-26] MEDS: Venlafaxine XR 75 MG Capsule PO (10:03)
[2023-02-26] MEDS: Azithromycin 500 MG in Dextrose 5%-Water (250mL Bag) 250 ML 250 MG IV (10:04)
[2023-02-26] MEDS: Insulin Glargine-YFGN 100 UNIT/ML Pen 83 UNIT SC ×2 (10:06→23:51)
--- NOTE | 2023-02-26 11:35 | CASEMGMT ---
TONY LING Assessment: Face to Face with pt for initial transition planning/care coordination assessment. TONY LING introduced self and role at [facility], pt voices understanding and consents to assessment. Pt is A&O x4 and answers all questions appropriately at this time. Pt had been resting with CPAP on and then sat up and switched to NC. Pt visibly SOB with talking. Care providers, pharmacy, and demographics verified/updated. Admitting Dx: acute on chronic hypoxia, COPD exac PCP:Perez Specialists:Pt reports she has seen a lung doctor one time but cannot recall the name of the doctor. Preferred Pharmacy: [facility] Insurance: [facility] Prescription Benefit: yes LNOK: Gene Menjivar, ; Melissa Steinerjoe, dtr Living Arrangements: Pt lives with dtr, and grandchildren in a single story home with alot of steps to enter. Pt reports there is a rail and her dtr assists her to navigate the steps. Pt denies concerns at home. Transportation: Pt dtr provides her with transportation. DME:Oxygen through [employer], reports she uses 2L cont, will need verified; CPAP, CGM with sufficient supplies for this. HHC/SNF: Pt denies hx of Pt states no concerns with going home at time of dc. Pt has FWW in room, pt does not want this for home as of yet. She is aware this RN CM can assist her with obtaining one. Pt denies any need for services at home currently. Pt states no further concerns/needs. CM to follow. Advised pt to ask CM if any further question/concerns/needs arise, voices understanding. Pt Goal: Home Plan: Home, follow for FWW, increase in O2 rx.
[2023-02-26 12:05] LABS: Bedside Glucose 394 mg/dL (74-106)
[2023-02-26] MEDS: Miconazole Nitrate 43 GM Bottle 1 APPLIC TOPICAL ×2 (12:39→21:48)
[2023-02-26] MEDS: hydroCHLOROthiazide 12.5mg 25 MG PO (12:39)
[2023-02-26] MEDS: Venlafaxine XR 150 MG Capsule PO (12:40)
[2023-02-26] MEDS: Pantoprazole Sodium 20 MG Tablet PO (12:41)
[2023-02-26] MEDS: Lisinopril 20 MG Tablet 40 MG PO (12:41)
--- NOTE | 2023-02-26 13:06 | CPS ---
Pt is a CO2 retainer, got order to keep SpO2 >/=88%. will inform RN.
[2023-02-26] MEDS: Atorvastatin Calcium 40 MG Tablet PO (21:44)
[2023-02-26 22:06] LABS: Bedside Glucose 487 mg/dL (74-106)
[2023-02-26 22:20] LABS: Glucose 504 mg/dL (74-106)
[2023-02-26] MEDS: Insulin Lispro 100 UNIT/ML INSULN.PEN 15 UNIT SC (23:37)
[2023-02-27 02:45] VITALS: O2SAT 98
[2023-02-27 03:19] VITALS: BMI 54.3
[2023-02-27 04:34] VITALS: O2SAT 99
[2023-02-27 06:06] VITALS: BP 155/72; PULSE 79; RESP 18; TEMP 36.5; O2SAT 99
[2023-02-27] MEDS: busPIRone 5 MG Tablet PO ×2 (06:09→13:39)
[2023-02-27] MEDS: Gabapentin 300 MG Capsule PO ×2 (06:09→13:38)
[2023-02-27 07:16] LABS: Absolute Lymphocyte Count 3.17 X10^3/uL (0.83-4.51); Absolute Neutrophil Count 11.8 X10^3/uL (2.0-7.7); Basophil# 0.12 X10^3/uL; Basophil% 0.7 % (0-1); Eosinophil# 0.09 X10^3/uL; Eosinophils% 0.5 % (0-5); Hemoglobin 13.7 g/dL (12.0-15.0); Lymphocyte # 3.17 X10^3/ul (0.83-4.51); Mean Corp Hgb Conc 29.8 g/dL (32-36); Mean Corpuscular Hgb 26.5 pg (27.0-32.0); Mean Platelet Vol. 9.8 fl (6.2-12.0); Monocyte# 1.25 X10^3/uL; Monocyte% 7.5 % (0-10); NRBC Flagged by Analyzer 0 % (0-5); Neutrophil # 11.84 X10^3/uL (2.7-7.7); Neutrophil % 71.2 % (47-70); Platelet Count 324 K/mm3 (150-450); RBC Distribution Width CV 13.5 % (11.6-14.6); RBC Distribution Width SD 43.9 fl (35.1-43.9); Red Blood Count 5.17 M/mm3 (4.2-5.4); White Blood Count 16.7 K/mm3 (4.4-11.0)
[2023-02-27 07:35] VITALS: O2SAT 92
--- NOTE | 2023-02-27 07:36 | PCM.PN.HOSP ---
Reason for Visit Reason for Visit: Diagnoses Chronic obstructive pulmonary disease with (acute) exacerbation (02/25/23) Subjective Subjective Patient seen breathing improved. Patient requesting to be discharged home Objective Data Objective Data Vital Signs: Vital Signs Temp Pulse Resp BP Pulse Ox O2 Del Method O2 Flow Rate 97.7 F L 79 18 155/72 H 99 Bi-pap 3 02/27/23 06:06 02/27/23 06:06 02/27/23 06:06 02/27/23 06:06 02/27/23 06:06 02/27/23 06:30 02/26/23 23:57 Oxygen Flow Rate (L/min) 3 Oxygen Delivery Method Bi-pap Weight: 147.8 kg Body Mass Index (BMI) 54.3 Intake & Output: Intake and Output for Last 24 Hours 02/25/23 02/26/23 02/27/23 23:59 23:59 23:59 Intake Total 50 / 50 5301 / 5301 300 / 300 Balance 50 / 50 5301 / 5301 300 / 300 Lab / Micro Data 02/27/23 06:11 02/26/23 21:44 Labs: Laboratory Results - last 24 hr 02/26/23 06:08: Sodium 138, Potassium 3.6, Chloride 97 L, Carbon Dioxide 35.0 H, Anion Gap 6, BUN 27 H, Creatinine 0.84, Estim Creat Clear Calc 110.20, Est GFR (MDRD) Af Amer 90, Est GFR (MDRD) Non-Af 74, BUN/Creatinine Ratio 32.1 H, Glucose 349 H, Calcium 8.3 L, Total Bilirubin 0.20, AST 13 L, ALT 19, Alkaline Phosphatase 108, Total Protein 7.6, Albumin 2.1 L, Globulin 5.5 H, Albumin/Globulin Ratio 0.4 L 02/26/23 11:47: POC Glucose 394 H 02/26/23 21:29: POC Glucose 487 H* 02/26/23 21:44: Glucose 504 H* 02/27/23 06:11: WBC 16.7 H, RBC 5.17, Hgb 13.7, Hct 46.0, MCV 89.0, MCH 26.5 L, MCHC 29.8 L, RDW Std Deviation 43.9, RDW Coeff of Ramy 13.5, Plt Count 324, MPV 9.8, Immature Gran % (Auto) 1.100 H, Neut % (Auto) 71.2 H, Lymph % (Auto) 19.0, [place] % (Auto) 7.5, Eos % (Auto) 0.5, Baso % (Auto) 0.7, Absolute Neuts (auto) 11.8 H, Absolute Lymphs (auto) 3.17, Nucleated RBC % 0 Micro: Microbiology 02/25/23 23:15 Sputum, Expectorated/Coughed Gram Stain - Final 02/25/23 22:00 Mucosa - Nasopharyngeal Respiratory Panel (PCR) - Final Rhinovirus 02/25/23 22:40 Urine, Clean Catch Legionella Antigen - Final 02/25/23 22:40 Urine, Clean Catch Streptococcus pneumoniae Antigen (M - Final 02/25/23 15:36 Mucosa - Nose SARS-CoV-2, Influenza & RSV (PCR) - Final Physical Exam Narrative GENERAL: cooperative, on BiPAP HEENT: Atraumatic; normocephalic EYES; Anicteric, Normal Conjunctiva NECK; supple, normal thyroid, RESPIRATORY: Diminished to auscultation CARDIOVASCULAR: Regular S1 S2, GI: soft, normoactive bowel sounds, : No Renal angle tenderness; EXTREMITIES: edema, no clubbing, MUSCULOSKELETAL: no muscle wasting NEURO: no lateralizing signs. SKIN: No Rash PSYCH; Flat affect Assessment & Plan Assessment/Plan (1) COPD with acute exacerbation: PLAN: Plan Patient is a 57-year-old lady with multiple comorbidities who presented with progressive shortness of breath and assessment of acute on chronic hypoxic respiratory failure made admitted to regular nursing floor for further management 1. Acute on chronic hypoxic respiratory failure ? Secondary to acute rhinovirus infection with COPD exacerbation as well as congestive heart failure 2. Acute rhinovirus infection ? Plan is to treat symptomatically 3. COPD with acute exacerbation ? Brought on by patient rhinovirus infection. Admitted to monitored bed managed with systemic steroid antibiotics bronchodilator treatment as well as supplemental oxygen 4. Acute on chronic congestive heart failure with preserved ejection fraction ? Patient placed on strict input and output, daily weight, low-sodium diet and furosemide 5. Chronic hypoxic respiratory failure ? Secondary to COPD, obesity hypoventilation syndrome patient is on baseline home oxygen 6. Class III obesity with BMI of 54.2 ? Complicating care weight loss advised 7. Obstructive sleep apnea ? BiPAP at night 8. Diabetes mellitus type II -patient's oral hypoglycemics held. Placed on long acting insulin, Accu-Cheks a.c. and at bedtime and covered with sliding scale insulin 9. Dyslipidemia -Patient is on statin therapy, continued at home dose 10. Hypertension - Blood pressure controlled, home medications continued with dose adjustment as needed 11. Diabetic polyneuropathy ? Patient is on gabapentin did continue 12. Depression with anxiety ? Patient is on buspirone as well as venlafaxine did continue 13. Tobacco dependence - Counseled on cessation, offered nicotine patch for tobacco cravings 14. DVT prophylaxis - On enoxaparin Time spent in the patient's overall evaluation,decision-making process, review of diagnostic data, adjustment of management, discussion with other providers, nursing nursing and ancillary staff involved in patient's care documentation, 35 Minutes Charges/Coding Visit Charges Inpatient E&M: 16900 Subs Hosp L2
--- NOTE | 2023-02-27 07:54 | NURSING ---
pt blood sugar is 171 this am-refusing accucheck
[2023-02-27] MEDS: Insulin Lispro 100 UNIT/ML INSULN.PEN SC (08:19)
[2023-02-27] MEDS: Potassium Chloride Oral Tablet 20 MEQ PO (08:20)
[2023-02-27] MEDS: Aspirin E.C. 81 MG Tablet PO (08:21)
[2023-02-27] MEDS: predniSONE 20 MG Tablet 40 MG PO (08:21)
[2023-02-27] MEDS: Miconazole Nitrate 43 GM Bottle 1 APPLIC TOPICAL (08:21)
[2023-02-27] MEDS: Ceftriaxone 1 GM/50 ML BAG IV (09:34)
--- NOTE | 2023-02-27 09:47 | DS.PCM_ITS ---
Providers Date of Admission: 02/25/23 Date of Discharge: 02/27/23 Primary Care Physician: Dr. Samson Todd MD Reason For Visit: ACUTE ON CHRONIC HYPOXIA, COPD EXACERBATION Diagnosis Discharge Diagnosis (1) COPD with acute exacerbation: Status: Chronic Code(s): J44.1 - Chronic obstructive pulmonary disease with (acute) exacerbation Plan Patient is a 57-year-old lady with multiple comorbidities who presented with progressive shortness of breath and assessment of acute on chronic hypoxic respiratory failure made admitted to regular nursing floor for further management 1. Acute on chronic hypoxic respiratory failure ? Secondary to acute rhinovirus infection with COPD exacerbation as well as joselito estive heart failure 2. Acute rhinovirus infection ? Plan is to treat symptomatically 3. COPD with acute exacerbation ? Brought on by patient rhinovirus infection. Admitted to monitored bed managed with systemic steroid antibiotics bronchodilator treatment as well as supplemental oxygen 4. Acute on chronic congestive heart failure with preserved ejection fraction ? Patient placed on strict input and output, daily weight, low-sodium diet and furosemide 5. Chronic hypoxic respiratory failure ? Secondary to COPD, obesity hypoventilation syndrome patient is on baseline home oxygen 6. Class III obesity with BMI of 54.2 ? Complicating care weight loss advised 7. Obstructive sleep apnea ? BiPAP at night 8. Diabetes mellitus type II -patient's oral hypoglycemics held. Placed on long acting insulin, Accu-Cheks a.c. and at bedtime and covered with sliding scale insulin 9. Dyslipidemia -Patient is on statin therapy, continued at home dose 10. Hypertension - Blood pressure controlled, home medications continued with dose adjustment as needed 11. Diabetic polyneuropathy ? Patient is on gabapentin did continue 12. Depression with anxiety ? Patient is on buspirone as well as venlafaxine did continue 13. Tobacco dependence - Counseled on cessation, offered nicotine patch for tobacco cravings 14. DVT prophylaxis - On enoxaparin Time spent in the patient's overall evaluation,decision-making process, review of diagnostic data, adjustment of management, discussion with other providers, nursing nursing and ancillary staff involved in patient's care documentation, 3 5 Minutes Medications at Discharge Home Medications atenolol 50 mg tablet 50 mg PO DAILY BP 03/04/15 furosemide 40 mg tablet 40 mg PO DAILY water retention 03/04/15 gabapentin 300 mg capsule 300 mg PO TID nerve pain 03/04/15 lisinopril 20 mg-hydrochlorothiazide 12.5 mg tablet 2 tab PO DAILY BP 03/04/15 venlafaxine 150 mg capsule,extended release 24 hr 150 mg PO DAILY mood 03/04/15 albuterol sulfate 90 mcg/actuation breath activated powder inhaler 2 inh inhalation Q4H PRN Wheezing 12/26/18 aspirin 81 mg tablet,delayed release (Adult Low Dose Aspirin) 81 mg PO DAILY heart health 12/26/18 atorvastatin 40 mg tablet 40 mg PO QHS cholesterol 12/26/18 dulaglutide 1.5 mg/0.5 mL subcutaneous pen injector (Trulicity) 1.5 mg subcut FR diabetes 12/26/18 ibuprofen 800 mg tablet 800 mg PO Q6H PRN Pain Or Fever 12/26/18 potassium chloride 10 mEq tablet,extended release (K-Tab) 20 meq PO DAILY supplement 12/26/18 insulin degludec 100 unit/mL (3 mL) subcutaneous pen 83 unit SQ BID diabetes 09/01/19 buspirone 5 mg tablet 5 mg PO TID mood 04/28/20 insulin lispro 100 unit/mL subcutaneous pen 40 unit SQ LUNCH diabetes 04/28/20 insulin lispro 100 unit/mL subcutaneous pen 64 unit SQ BREAKFAST diabetes 04/28/20 insulin lispro 100 unit/mL subcutaneous pen 94 unit subcut QHS diabetes 04/28/20 sulfamethoxazole 800 mg-trimethoprim 160 mg tablet 1 tablet PO BID #10 TABLETS 04/30/20 insulin lispro 100 unit/mL subcutaneous half-unit pen (Humalog Zafar KwikPen (U-100)) 3 unit subcut DAILY 02/25/23 insulin lispro 100 unit/mL subcutaneous half-unit pen (Humalog Zafar KwikPen (U-100)) 63 unit subcut DAILY 02/25/23 insulin lispro 100 unit/mL subcutaneous half-unit pen (Humalog Zafar KwikPen (U-100)) 93 unit subcut QHS 02/25/23 metformin 500 mg tablet,extended release 24 hr 1,000 mg PO BID 02/25/23 omeprazole 20 mg capsule,delayed release 20 mg PO DAILY 02/25/23 venlafaxine 75 mg capsule,extended release 24 hr 75 mg PO DAILY 02/25/23 azithromycin 500 mg tablet 500 mg PO DAILY 3 days #3 tabs 02/27/23 cefdinir 300 mg capsule 300 mg PO BID #10 caps 02/27/23 cefdinir 300 mg capsule 300 mg PO BID #10 caps 02/27/23 cefdinir 300 mg capsule 300 mg PO BID #10 caps 02/27/23 prednisone 20 mg tablet 20 mg PO BID #10 tabs 02/27/23 Hospital Course Summary of Care Provided Minutes Spent on Discharge: 35 Physical Exam Narrative GENERAL: cooperative, HEENT: Atraumatic; normocephalic EYES; Anicteric, Normal Conjunctiva NECK; supple, normal thyroid, RESPIRATORY: Diminished to auscultation CARDIOVASCULAR: Regular S1 S2, GI: soft, normoactive bowel sounds, : No Renal angle tenderness; EXTREMITIES: edema, no clubbing, MUSCULOSKELETAL: no muscle wasting NEURO: no lateralizing signs. SKIN: No Rash PSYCH; Flat affect Weight / BMI Weight Weight: 147.8 kg Body Mass Index (BMI) 54.3 ABG / Lab / Microbiology Data 02/27/23 06:11 02/26/23 21:44 Laboratory: Laboratory Results - last 24 hr 02/26/23 11:47: POC Glucose 394 H 02/26/23 21:29: POC Glucose 487 H* 02/26/23 21:44: Glucose 504 H* 02/27/23 06:11: WBC 16.7 H, RBC 5.17, Hgb 13.7, Hct 46.0, MCV 89.0, MCH 26.5 L, MCHC 29.8 L, RDW Std Deviation 43.9, RDW Coeff of Ramy 13.5, Plt Count 324, MPV 9.8, Immature Gran % (Auto) 1.100 H, Neut % (Auto) 71.2 H, Lymph % (Auto) 19.0, [place] % (Auto) 7.5, Eos % (Auto) 0.5, Baso % (Auto) 0.7, Absolute Neuts (auto) 11.8 H, Absolute Lymphs (auto) 3.17, Nucleated RBC % 0 Microbiology: Microbiology 02/25/23 23:15 Sputum, Expectorated/Coughed Gram Stain - Final 02/25/23 22:00 Mucosa - Nasopharyngeal Respiratory Panel (PCR) - Final Rhinovirus 02/25/23 22:40 Urine, Clean Catch Legionella Antigen - Final 02/25/23 22:40 Urine, Clean Catch Streptococcus pneumoniae Antigen (M - Final 02/25/23 15:36 Mucosa - Nose SARS-CoV-2, Influenza & RSV (PCR) - Final D/C Instructions Discharge Diet: 1800 Calorie Control Diet Discharge Activity: Return to Normal Activity Call your doctor if you observe: Fever of 101 or Higher, Shortness of breath, Fainting spells and Chest pain Meaningful Use Info Meaningful Use Diagnoses (Choose all that apply): None applicable Discharge Plan Admission Admit Date/Time: 02/25/23 19:01 Attending Provider: Russell Flower Primary Care Provider: Samson Todd Consulting Providers: Chelsi Warner Discharge Orders/Prescriptions Prescriptions: New cefdinir 300 mg capsule 300 mg PO BID Qty: 10 0RF azithromycin 500 mg tablet 500 mg PO DAILY 3 Days Qty: 3 0RF cefdinir 300 mg capsule 300 mg PO BID Qty: 10 0RF prednisone 20 mg tablet 20 mg PO BID Qty: 10 0RF cefdinir 300 mg capsule 300 mg PO BID Qty: 10 0RF Continued Trulicity 1.5 mg/0.5 mL pen injector 1.5 mg SC FR Patient Comments: on fridays potassium chloride [K-Tab] 10 mEq tablet extended release 20 meq PO DAILY atorvastatin 40 mg tablet 40 mg PO QHS albuterol sulfate 90 mcg/actuation aerosol powdr breath activated 2 inh INHALATION Q4H PRN (Reason: Wheezing) ibuprofen 800 mg tablet 800 mg PO Q6H PRN (Reason: Pain Or Fever) aspirin [Adult Low Dose Aspirin] 81 mg tablet,delayed release (DR/EC) 81 mg PO DAILY furosemide 40 MG tablet 40 mg PO DAILY lisinopril-hydrochlorothiazide 1 TABLET tablet 2 tab PO DAILY venlafaxine 150 MG capsule 150 mg PO DAILY gabapentin 300 MG capsule 300 mg PO TID atenolol 50 MG tablet 50 mg PO DAILY insulin degludec 100 UNIT/ML insulin pen 83 unit SQ BID buspirone 5 MG tablet 5 mg PO TID insulin lispro 100 UNIT/ML insulin pen 64 unit SQ BREAKFAST Rx Instructions: 62/40/94 insulin lispro 100 UNIT/ML insulin pen 40 unit SQ LUNCH Rx Instructions: takes at noon insulin lispro 100 UNIT/ML insulin pen 94 unit SC QHS sulfamethoxazole-trimethoprim 1 TABLET tablet 1 tablet PO BID Qty: 10 0RF metformin 500 mg tablet extended release 24 hr 1,000 mg PO BID venlafaxine 75 mg capsule,extended release 24hr 75 mg PO DAILY omeprazole 20 mg capsule,delayed release(DR/EC) 20 mg PO DAILY insulin lispro [Humalog Zafar KwikPen U-100] 100 unit/mL insulin pen, half- unit 63 unit subcut DAILY Patient Comments: AM insulin lispro [Humalog Zafar KwikPen U-100] 100 unit/mL insulin pen, half-unit 3 unit subcut DAILY Patient Comments: afternoon insulin lispro [Humalog Zafar KwikPen U-100] 100 unit/mL insulin pen, half- unit 93 unit subcut [facility] Referrals / Follow Up: Samson Todd MD [Primary Care Provider] - Disposition Disposition (needs filled in before D/C Order can be placed): Home, Self Care Charges/Coding Visit Charges Inpatient E&M: 32664 Disch Hosp >30min
[2023-02-27] MEDS: 0.9% Saline Lock 10 ML Syringe IV (10:20)
[2023-02-27] MEDS: Azithromycin 500 MG in Dextrose 5%-Water (250mL Bag) 250 ML 250 MG IV (10:20)
[2023-02-27] MEDS: Pantoprazole Sodium 20 MG Tablet PO (10:24)
[2023-02-27] MEDS: Insulin Glargine-YFGN 100 UNIT/ML Pen 83 UNIT SC (10:24)
[2023-02-27] MEDS: Venlafaxine XR 75 MG Capsule PO (10:24)
[2023-02-27] MEDS: Enoxaparin 40 MG/0.4 ML Syringe SC (10:24)
[2023-02-27] MEDS: Venlafaxine XR 150 MG Capsule PO (10:24)
[2023-02-27] MEDS: Furosemide 40 MG Tablet PO (10:25)
[2023-02-27] MEDS: Lisinopril 20 MG Tablet 40 MG PO (10:25)
[2023-02-27] MEDS: Atenolol 50 MG Tablet PO (10:26)
[2023-02-27] MEDS: hydroCHLOROthiazide 12.5mg 25 MG PO (10:26)
[2023-02-27 10:31] LABS: Anion Gap 5 (5-15); BUN 30 mg/dL (7-18); BUN/Creat Ratio 42.2 RATIO (10-20); Calcium,Total 8.9 mg/dL (8.5-10.1); Chloride 97 mmol/L (98-107); Creatinine, Serum 0.71 mg/dL (0.55-1.02); EST Glomerular Filtration Rate 90 mL/min (>60); Est Glom Filt Rate - Afr Amer 109 mL/min (>60); Estimated Creatinine Clearance 130.34 ml/min; Glucose 198 mg/dL (74-106); Magnesium 2.2 mg/dL (1.6-2.6); Phosphorus 3.8 mg/dL (2.5-4.9); Potassium 3.9 mmol/L (3.5-5.1); Sodium Level 141 mmol/L (136-145)
[2023-02-27 10:34] VITALS: PULSE 80; RESP 24
[2023-02-27] MEDS: Ipratropium/Albuterol Sulfate 3 ML AMPUL.NEB INHALATION (10:34)
[2023-02-27] MEDS: Acetaminophen 325 MG Tablet 650 MG PO ×2 (13:38)
== END 2023-02-27 14:40 | disposition home or self-care (01) | DRG 140 ==
LOC: ED 17:48 → MS3 20:03
PROVIDERS: Student in an Organized Health Care Education/Training Program; Admitting Provider Family Medicine; Emergency Provider Emergency Medicine; PCP Family Medicine; Visit Provider Internal Medicine
DX: J44.1 Chronic obstructive pulmonary disease with (acute) exacerbation (principal); J96.21 Acute and chronic respiratory failure with hypoxia; I50.33 Acute on chronic diastolic (congestive) heart failure; E66.2 Morbid (severe) obesity with alveolar hypoventilation; E11.42 Type 2 diabetes mellitus with diabetic polyneuropathy; I11.0 Hypertensive heart disease with heart failure; Z68.43 Body mass index [BMI] 50.0-59.9, adult; Z79.4 Long term (current) use of insulin; F32.A Depression, unspecified; E78.5 Hyperlipidemia, unspecified; K21.9 Gastro-esophageal reflux disease without esophagitis; F41.9 Anxiety disorder, unspecified; F17.210 Nicotine dependence, cigarettes, uncomplicated; Z99.81 Dependence on supplemental oxygen; B34.8 Other viral infections of unspecified site; Z11.52 Encounter for screening for COVID-19; Z79.82 Long term (current) use of aspirin; Z79.84 Long term (current) use of oral hypoglycemic drugs; Z79.899 Other long term (current) drug therapy
CPT/HCPCS: 36415; 71045; 80048; 80053; 82947; 82962; 83605; 83735; 83880; 84100; 84145; 85025; 87040; 87070; 87077; 87205; 87449; 87631; 87633; 87641; 93005; 94640; 94668; 94762; 99284; J7030; A4216

== ENCOUNTER 2023-07-01 19:20 | Emergency (ER) | payer MEDICAID, SELFPAY ==
[2023-07-01 19:20] VITALS: BP 174/84; PULSE 126; RESP 20; TEMP 36.6; O2SAT 92
--- NOTE | 2023-07-01 20:13 | EDS_ITS ---
HPI <JC Chiang - Last Filed: 07/01/23 21:42> History of Present Illness Chief Complaint: Cellulitis Narrative Narrative: Patient is a 57-year-old female with history of morbid obesity, COPD on 3 L nasal cannula daily, diabetes, obstructive sleep apnea, venous stasis who presents to the emergency department for 1 day of worsening pain to the right lower extremity. Patient states her legs are normally red however patient states that she has some blisters that are draining, the redness is worse, and she is concerned and here for evaluation. Patient denies any fever or chills. She denies any feeling of illness. [facility] <JC Chiang - Last Filed: 07/01/23 21:42> [facility] Medical History (Updated 07/01/23 @ 21:41 by JC Chiang) GERD (gastroesophageal reflux disease) Neuropathy Anxiety and depression Chronic respiratory failure Urinary calculus Sleep apnea Panic disorder Microalbuminuria IBS (irritable bowel syndrome) HTN (hypertension) Type 2 diabetes mellitus Degenerative disc disease Tobacco dependence syndrome Morbid obesity Home Medications ?Medication ?Instructions ?Recorded ?Last Taken ?Type atenolol 50 mg tablet 50 mg PO DAILY BP 03/04/15 04/28/20 08:00 History furosemide 40 mg tablet 40 mg PO DAILY water retention 03/04/15 04/28/20 08:00 History gabapentin 300 mg capsule 300 mg PO TID nerve pain 03/04/15 04/28/20 17:00 History lisinopril 20 2 tab PO DAILY BP 03/04/15 04/28/20 08:00 History mg-hydrochlorothiazide 12.5 mg tablet venlafaxine 150 mg 150 mg PO DAILY mood 03/04/15 04/28/20 08:00 History capsule,extended release 24 hr albuterol sulfate 90 mcg/actuation 2 inh inhalation Q4H PRN Wheezing 12/26/18 Unknown History breath activated powder inhaler aspirin 81 mg tablet,delayed 81 mg PO DAILY heart health 12/26/18 04/28/20 08:00 History release (Adult Low Dose Aspirin) atorvastatin 40 mg tablet 40 mg PO QHS cholesterol 12/26/18 04/27/20 22:00 History dulaglutide 1.5 mg/0.5 mL 1.5 mg subcut FR diabetes 12/26/18 04/24/20 12:00 History subcutaneous pen injector (Trulicity) ibuprofen 800 mg tablet 800 mg PO Q6H PRN Pain Or Fever 12/26/18 Unknown History potassium chloride 10 mEq 20 meq PO DAILY supplement 12/26/18 04/28/20 08:00 History tablet,extended release (K-Tab) insulin degludec 100 unit/mL (3 83 unit SQ BID diabetes 09/01/19 04/28/20 17:00 History mL) subcutaneous pen buspirone 5 mg tablet 5 mg PO TID mood 04/28/20 04/28/20 17:00 History insulin lispro 100 unit/mL 40 unit SQ LUNCH diabetes 04/28/20 04/28/20 12:00 History subcutaneous pen insulin lispro 100 unit/mL 64 unit SQ BREAKFAST diabetes 04/28/20 04/28/20 08:00 History subcutaneous pen insulin lispro 100 unit/mL 94 unit subcut QHS diabetes 04/28/20 04/28/20 17:00 History subcutaneous pen sulfamethoxazole 800 1 tablet PO BID #10 TABLETS 04/30/20 Unknown Rx mg-trimethoprim 160 mg tablet insulin lispro 100 unit/mL 3 unit subcut DAILY 02/25/23 Unknown History subcutaneous half-unit pen (Humalog Zafar KwikPen (U-100)) insulin lispro 100 unit/mL 63 unit subcut DAILY 02/25/23 Unknown History subcutaneous half-unit pen (Humalog Zafar KwikPen (U-100)) insulin lispro 100 unit/mL 93 unit subcut QHS 02/25/23 Unknown History subcutaneous half-unit pen (Humalog Zafar KwikPen (U-100)) metformin 500 mg tablet,extended 1,000 mg PO BID 02/25/23 Unknown History release 24 hr omeprazole 20 mg capsule,delayed 20 mg PO DAILY 02/25/23 Unknown History release venlafaxine 75 mg capsule,extended 75 mg PO DAILY 02/25/23 Unknown History release 24 hr azithromycin 500 mg tablet 500 mg PO DAILY 3 days #3 tabs 02/27/23 Unknown Rx cefdinir 300 mg capsule 300 mg PO BID #10 caps 02/27/23 Unknown Rx cefdinir 300 mg capsule 300 mg PO BID #10 caps 02/27/23 Unknown Rx cefdinir 300 mg capsule 300 mg PO BID #10 caps 02/27/23 Unknown Rx prednisone 20 mg tablet 20 mg PO BID #10 tabs 02/27/23 Unknown Rx cephalexin 500 mg capsule 500 mg PO Q6 #40 CAPSULES 07/01/23 Unknown Rx Allergy/AdvReac Type Severity Reaction Status Date / Time tetanus and diphtheria Allergy Unknown swollen Verified 07/01/23 19:21 toxoids glands in neck that didn't decrease ketorolac tromethamine (From Allergy vivid Verified 07/01/23 19:21 Toradol) dreams morphine Allergy Itching Verified 07/01/23 19:21 Family History Aunt Diabetes Father Heart disease Sister Heart disease Grandfather Colon cancer Unknown Breast cancer Surgical History H/O dilation and curettage H/O lithotripsy History of renal stent Hx of cholecystectomy Hx of partial nephrectomy repair of r arm fx Social History (Updated 02/25/23 @ 19:[address] Chelsi Warner MD) household members: spouse Smoking Status: Current some day smoker tobacco type: cigarettes quit status: considering quitting alcohol intake: never substance use type: does not use ROS <JC Chiang - Last Filed: 07/01/23 21:42> ROS ED ROS Narrative Constitutional: Negative for fever, chills, weight loss, weakness Eyes: Negative for vision loss, vision change, double vision ENT: Negative for any sore throat, ear pain, congestion Cardiovascular: Negative for any chest pain, tightness, palpitations Respiratory: Negative for any cough, sputum production, hemoptysis, dyspnea, dyspnea on exertion, orthopnea Gastrointestinal: Negative for any abdominal pain, nausea, vomiting, diarrhea, constipation, blood in stool, blood in vomit : Negative for any urinary frequency, dysuria, retention, blood in urine Muscle skeletal: Negative for any neck pain, back pain. Positive for pain to t he right lower extremity, redness, drainage Neurological: Negative for any headache, syncope, dizziness Skin: Negative for any rashes, itching, abrasions, lacerations Psychiatric: Negative for any depression, anxiety, stress, suicidal ideation, homicidal ideation Hematologic: Negative for any excessive bruising, easy bleeding EXAM <JC Chiang - Last Filed: 07/01/23 21:42> Physical Exam Narrative Exam Narrative: Vital signs reviewed. Patient is alert and oriented x 4. Patient is tachycardic at 125. HEET: Head normocephalic atraumatic, TMs clear bilaterally. Posterior pharynx is clear, moist mucous membranes. Nares clear bilaterally. Neck: Supple with no lymphadenopathy or tenderness. No signs of meningismus. Cardiac: Regular rate and rhythm no murmurs gallops or rubs, equal peripheral pulses bilaterally. Respiratory: Lungs clear to auscultation bilaterally. No chest tenderness. Abdomen: Soft, nontender, nondistended. No abdominal bruit or pulsatile masses. No hepatosplenomegaly Extremities: Patient does have some erythema to both legs, the right leg is significantly more red more swollen more warm to touch. Patient does have some clear drainage from some blisters. Patient does have some warmth going up the lateral leg past the knee. No signs of gross trauma or deformity. Active full range of motion of all extremities. Neuro: Cranial nerves II through XII intact, no focal neurological deficits. Skin: Clean dry and intact with no rash, purpura, petechiae, vesicles or pustules. Backs/flank: No CVA tenderness, no midline spinal tenderness, no deformity. Psych: Normal mood and affect. No SI, HI or acute psychosis. Const Vital Signs: 07/01/23 19:20 07/01/23 20:23 07/01/23 21:15 Temperature 97.8 F 98.8 F 98.7 F Temperature Source Temporal Oral Oral Pulse Rate 126 H 125 H 125 H Respiratory Rate 20 H 24 H 24 H Blood Pressure 174/84 H 146/76 H 147/77 H Blood Pressure Mean 114 99 100 Pulse Ox 92 96 94 Oxygen Delivery Method Nasal Cannula Nasal Cannula Nasal Cannula Oxygen Flow Rate (L/min) 3 3 3 07/01/23 21:38 07/01/23 21:45 Temperature 98.7 F Temperature Source Pulse Rate 126 H 125 H Respiratory Rate 20 H 20 H Blood Pressure 116/88 H Blood Pressure Mean 97 Pulse Ox 92 92 Oxygen Delivery Method Nasal Cannula Oxygen Flow Rate (L/min) 3 Positive well nourished and well developed General Appearance ED: well developed <Dr. Steve Lacey, DO - Last Filed: 07/01/23 22:03> Physical Exam Const Vital Signs: 07/01/23 19:20 07/01/23 20:23 07/01/23 21:15 Temperature 97.8 F 98.8 F 98.7 F Temperature Source Temporal Oral Oral Pulse Rate 126 H 125 H 125 H Respiratory Rate 20 H 24 H 24 H Blood Pressure 174/84 H 146/76 H 147/77 H Blood Pressure Mean 114 99 100 Pulse Ox 92 96 94 Oxygen Delivery Method Nasal Cannula Nasal Cannula Nasal Cannula Oxygen Flow Rate (L/min) 3 3 3 07/01/23 21:38 07/01/23 21:45 Temperature 98.7 F Temperature Source Pulse Rate 126 H 125 H Respiratory Rate 20 H 20 H Blood Pressure 116/88 H Blood Pressure Mean 97 Pulse Ox 92 92 Oxygen Delivery Method Nasal Cannula Oxygen Flow Rate (L/min) 3 [facility] <JC Chiang - Last Filed: 07/01/23 21:42> [facility] Lab Data Labs: Laboratory Results - last 24 hr 07/01/23 20:20 WBC 13.8 H RBC 5.75 H Hgb 14.8 Hct 49.1 H MCV 85.4 MCH 25.7 L MCHC 30.1 L RDW Std Deviation 44.1 H RDW Coeff of Ramy 14.4 Plt Count 246 MPV 10.0 Immature Gran % (Auto) 0.400 Neut % (Auto) 74.4 H Lymph % (Auto) 17.0 L Kingfisher % (Auto) 5.7 Eos % (Auto) 1.8 Baso % (Auto) 0.7 Absolute Neuts (auto) 10.3 H Absolute Lymphs (auto) 2.34 Nucleated RBC % 0 Sodium 140 Potassium 3.4 L Chloride 101 Carbon Dioxide 34.0 H Anion Gap 5 BUN 24 H Creatinine 0.86 Est GFR (MDRD) Af Amer 88 Est GFR (MDRD) Non-Af 73 BUN/Creatinine Ratio 28.0 H Glucose 148 H Calcium 9.8 Treatment and Re-Evaluation :: Differential diagnosis includes however is not limited to: Sepsis, cellulitis, hyperglycemia, acute on chronic wounds, venous stasis Patient is alert and orient x 4, patient is tachycardic however has no fever at this time. Patient states have some pain. Present to the emerged part with right lower leg redness, erythema. Patient will receive some basic laboratory values such as a CBC, BMP, looking for any leukocytosis, electrolyte abnormality, hyperglycemia. Patient will receive IV fluids, 500 cc to see if this affects her heart rate. Patient will be reevaluated. I have low suspicion for any DVT. Patient's laboratory values were obtained, CBC showed a leukocytosis white blood count of 13.8, however, patient has many instances where her white blood count is greater and 13. Patient is slightly hemoconcentrated with a hemoglobin of 5.75. Patient's chemistries show normal renal function, glucose of 148, patient was given IV Ancef. At this time, I did offer admission, however the patient states she would like to be discharged home. She states that she would like to try outpatient therapy. At this time, patient is slightly tachycardic however patient states she is usually over 100. Patient denies any shortness of breath, chest pain, fever chills and generally feels pretty good. She will be given Keflex 4 times a day for 10 days. She instructed to follow-up with her PCP. If the redness gets worse, she gets more short of breath fever chills nausea or vomiting she will return here. Happy the plan of care, stable for discharge. <Dr. Steve Lacey, DO - Last Filed: 07/01/23 22:03> [facility] Narrative Medical decision making narrative: Differential diagnosis includes however is not limited to: Sepsis, cellulitis, hyperglycemia, acute on chronic wounds, venous stasis Patient is alert and orient x 4, patient is tachycardic however has no fever at this time. Patient states have some pain. Present to the emerged part with right lower leg redness, erythema. Patient will receive some basic laboratory values such as a CBC, BMP, looking for any leukocytosis, electrolyte abnormality, hyperglycemia. Patient will receive IV fluids, 500 cc to see if this affects her heart rate. Patient will be reevaluated. I have low suspicion for any DVT. Patient's laboratory values were obtained, CBC showed a leukocytosis white blood count of 13.8, however, patient has many instances where her white blood count is greater and 13. Patient is slightly hemoconcentrated with a hemoglobin of 5.75. Patient's chemistries show normal renal function, glucose of 148, patient was given IV Ancef. At this time, I did offer admission, however the patient states she would like to be discharged home. She states that she would like to try outpatient therapy. At this time, patient is slightly tachycardic however patient states she is usually over 100. Patient denies any shortness of breath, chest pain, fever chills and generally feels pretty good. She will be given Keflex 4 times a day for 10 days. She instructed to follow-up with her PCP. If the redness gets worse, she gets more short of breath fever chills nausea or vomiting she will return here. Happy the plan of care, stable for discharge. Patient presenting with lower extremity erythema and concern for cellulitis. She states her right leg is worse than the left leg. Patient states she feels otherwise fine. She was noted to be tachycardic but states she is not sure why. She is not having chest pain. She has chronic shortness of breath which is not new. She has not had any fevers. She states she feels fine and does not feel ill. Differential as above. Patient was given IV fluids and lab was obtained. CBC shows leukocytosis 13.8 however the patient has elevated leukocytosis chronically. Hemoglobin 14.8. Renal function and electrolytes are normal. She is on her baseline oxygen. We gave her a dose of Ancef here IV and a liter normal saline. We reevaluated her and she is sleeping comfortably and still sli ghtly tachycardic. She states she feels well enough to go and she will be put on oral antibiotics for home and we gave her strict return precautions. Lab Data Labs: Laboratory Results - last 24 hr 07/01/23 20:20 WBC 13.8 H RBC 5.75 H Hgb 14.8 Hct 49.1 H MCV 85.4 MCH 25.7 L MCHC 30.1 L RDW Std Deviation 44.1 H RDW Coeff of Ramy 14.4 Plt Count 246 MPV 10.0 Immature Gran % (Auto) 0.400 Neut % (Auto) 74.4 H Lymph % (Auto) 17.0 L Kingfisher % (Auto) 5.7 Eos % (Auto) 1.8 Baso % (Auto) 0.7 Absolute Neuts (auto) 10.3 H Absolute Lymphs (auto) 2.34 Nucleated RBC % 0 Sodium 140 Potassium 3.4 L Chloride 101 Carbon Dioxide 34.0 H Anion Gap 5 BUN 24 H Creatinine 0.86 Est GFR (MDRD) Af Amer 88 Est GFR (MDRD) Non-Af 73 BUN/Creatinine Ratio 28.0 H Glucose 148 H Calcium 9.8 Discharge Plan Triage Chief Complaint: Cellulitis ED Midlevel Provider: Sherman Montoya ED Provider: Steve Lacey Dx/Rx/DC Orders Clinical Impression: Cellulitis, Tachycardia Instructions: ED Cellulitis Prescriptions: New cephalexin 500 mg capsule 500 mg PO Q6 Qty: 40 0RF No Action Trulicity 1.5 mg/0.5 mL pen injector 1.5 mg SC FR Patient Comments: on fridays potassium chloride [K-Tab] 10 mEq tablet extended release 20 meq PO DAILY atorvastatin 40 mg tablet 40 mg PO QHS albuterol sulfate 90 mcg/actuation aerosol powdr breath activated 2 inh INHALATION Q4H PRN (Reason: Wheezing) ibuprofen 800 mg tablet 800 mg PO Q6H PRN (Reason: Pain Or Fever) aspirin [Adult Low Dose Aspirin] 81 mg tablet,delayed release (DR/EC) 81 mg PO DAILY furosemide 40 MG tablet 40 mg PO DAILY lisinopril-hydrochlorothiazide 1 TABLET tablet 2 tab PO DAILY venlafaxine 150 MG capsule 150 mg PO DAILY gabapentin 300 MG capsule 300 mg PO TID atenolol 50 MG tablet 50 mg PO DAILY insulin degludec 100 UNIT/ML insulin pen 83 unit SQ BID buspirone 5 MG tablet 5 mg PO TID insulin lispro 100 UNIT/ML insulin pen 64 unit SQ BREAKFAST Rx Instructions: 62/40/94 insulin lispro 100 UNIT/ML insulin pen 40 unit SQ LUNCH Rx Instructions: takes at noon insulin lispro 100 UNIT/ML insulin pen 94 unit SC QHS sulfamethoxazole-trimethoprim 1 TABLET tablet 1 tablet PO BID Qty: 10 0RF metformin 500 mg tablet extended release 24 hr 1,000 mg PO BID venlafaxine 75 mg capsule,extended release 24hr 75 mg PO DAILY omeprazole 20 mg capsule,delayed release(DR/EC) 20 mg PO DAILY insulin lispro [Humalog Zafar KwikPen U-100] 100 unit/mL insulin pen, half- unit 63 unit subcut DAILY Patient Comments: AM insulin lispro [Humalog Zafar KwikPen U-100] 100 unit/mL insulin pen, half- unit 3 unit subcut DAILY Patient Comments: afternoon insulin lispro [Humalog Zafar KwikPen U-100] 100 unit/mL insulin pen, half- unit 93 unit subcut QHS cefdinir 300 mg capsule 300 mg PO BID Qty: 10 0RF azithromycin 500 mg tablet 500 mg PO DAILY 3 Days Qty: 3 0RF cefdinir 300 mg capsule 300 mg PO BID Qty: 10 0RF prednisone 20 mg tablet 20 mg PO BID Qty: 10 0RF cefdinir 300 mg capsule 300 mg PO BID Qty: 10 0RF Primary Care Provider: Samson Todd Referrals: Samson Todd MD [Primary Care Provider] - Activity Restrictions/Additional Instructions: You was slightly tachycardic tonight, you have a slight white blood cell count that is elevated. You need to take the antibiotics as directed. If you feel worse, fatigue, fever chills, nausea or vomiting, you need to return to the emergency department. Print Language: Tunisian Disposition Disposition: Home, Self Care
[2023-07-01 20:23] VITALS: BP 146/76; PULSE 125; RESP 24; TEMP 37.1; O2SAT 96
[2023-07-01] MEDS: 0.9% Normal Saline (500mL Bag) 500 ML 999 ML IV (20:31)
[2023-07-01 20:34] LABS: Absolute Lymphocyte Count 2.34 X10^3/uL (0.83-4.51); Absolute Neutrophil Count 10.3 X10^3/uL (2.0-7.7); Basophil# 0.09 X10^3/uL; Basophil% 0.7 % (0-1); Eosinophil# 0.25 X10^3/uL; Eosinophils% 1.8 % (0-5); Hematocrit 49.1 % (37-47); Hemoglobin 14.8 g/dL (12.0-15.0); Lymphocyte # 2.34 X10^3/ul (0.83-4.51); Mean Corp Hgb Conc 30.1 g/dL (32-36); Mean Corpuscular Hgb 25.7 pg (27.0-32.0); Mean Corpuscular Volume 85.4 fL (81-99); Monocyte# 0.78 X10^3/uL; Monocyte% 5.7 % (0-10); NRBC Flagged by Analyzer 0 % (0-5); Neutrophil # 10.26 X10^3/uL (2.7-7.7); Neutrophil % 74.4 % (47-70); Platelet Count 246 K/mm3 (150-450); RBC Distribution Width CV 14.4 % (11.6-14.6); RBC Distribution Width SD 44.1 fl (35.1-43.9); Red Blood Count 5.75 M/mm3 (4.2-5.4); White Blood Count 13.8 K/mm3 (4.4-11.0)
[2023-07-01 20:49] LABS: Anion Gap 5 (5-15); BUN 24 mg/dL (7-18); Calcium,Total 9.8 mg/dL (8.5-10.1); Chloride 101 mmol/L (98-107); Creatinine, Serum 0.86 mg/dL (0.55-1.02); EST Glomerular Filtration Rate 73 mL/min (>60); Est Glom Filt Rate - Afr Amer 88 mL/min (>60); Glucose 148 mg/dL (74-106); Potassium 3.4 mmol/L (3.5-5.1); Sodium Level 140 mmol/L (136-145)
[2023-07-01 21:15] VITALS: BP 147/77; PULSE 125; RESP 24; TEMP 37.1; O2SAT 94
[2023-07-01] MEDS: Cefazolin 1 GM/50 ML BAG IV (21:36)
[2023-07-01 21:38] VITALS: PULSE 126; RESP 20; O2SAT 92
[2023-07-01 21:45] VITALS: BP 116/88; PULSE 125; RESP 20; TEMP 37.1; O2SAT 92
== END 2023-07-01 22:32 | disposition home or self-care (01) ==
PROVIDERS: Nurse Practitioner; Emergency Provider Student in an Organized Health Care Education/Training Program; PCP Family Medicine; Visit Provider Student in an Organized Health Care Education/Training Program
DX: L03.115 Cellulitis of right lower limb (principal); J44.9 Chronic obstructive pulmonary disease, unspecified; E66.01 Morbid (severe) obesity due to excess calories; E11.40 Type 2 diabetes mellitus with diabetic neuropathy, unspecified; F17.210 Nicotine dependence, cigarettes, uncomplicated; R00.0 Tachycardia, unspecified; I10 Essential (primary) hypertension; K21.9 Gastro-esophageal reflux disease without esophagitis
CPT/HCPCS: 80048; 85025; 96361; 96365; 99283; J7030; A4216

== ENCOUNTER 2023-09-04 08:34 | Emergency (ER) | payer MEDICAID, SELFPAY ==
[2023-09-04 08:36] VITALS: BP 170/89; PULSE 89; RESP 18; O2SAT 98
[2023-09-04 08:40] VITALS: BP 171/89; PULSE 116; RESP 19; TEMP 36.7; O2SAT 96; BMI 60.5
--- NOTE | 2023-09-04 08:52 | EDS_ITS ---
HPI History of Present Illness HPI Narrative: 57-year-old female history of diabetes chronic renal failure on 3 L of oxygen all the time. Was at home helping her has had a stroke and she fell about 3 days ago landing awkwardly on her left leg. Basically complaining of pain from the leg hip all the way down to the left foot. Really cannot localize it. She has been walking on it. She denies any other injuries. She did not hit her head. Says she thinks she just simply tripped. No prior surgery to her left lower extremity. Chief Complaint: Lower Extremity Injury Informant: patient Occured/Mechanism Mechanism/Context: Yes injury and Yes blunt trauma Onset/Context/Timing Onset: Days Context: Sudden Onset Timing: Continuous Quality of Pain: Dull and Aching Current Severity: Mild Maximum Severity: Mild Associated Symptoms Associated Symptoms: Negative for Parasthesia, Weakness or Loss of Funtion Narrative Narrative: This is-year-old female history of chronic renal failure diabetes fell 3 days ago and pain in her left lower extremity both in the hip and primarily lower leg and ankle and foot. Able to walk on it. Prior similar symptoms: No Recent Illness/Hospitalization: No PFSH [facility] Medical History GERD (gastroesophageal reflux disease) Neuropathy Anxiety and depression Chronic respiratory failure Urinary calculus Sleep apnea Panic disorder Microalbuminuria IBS (irritable bowel syndrome) HTN (hypertension) Type 2 diabetes mellitus Degenerative disc disease Tobacco dependence syndrome Morbid obesity Home Medications ?Medication ?Instructions ?Recorded ?Last Taken ?Type atenolol 50 mg tablet 50 mg PO DAILY BP 03/04/15 04/28/20 08:00 History furosemide 40 mg tablet 40 mg PO DAILY water retention 03/04/15 04/28/20 08:00 History gabapentin 300 mg capsule 300 mg PO TID nerve pain 03/04/15 04/28/20 17:00 History lisinopril 20 2 tab PO DAILY BP 03/04/15 04/28/20 08:00 History mg-hydrochlorothiazide 12.5 mg tablet venlafaxine 150 mg 150 mg PO DAILY mood 03/04/15 04/28/20 08:00 History capsule,extended release 24 hr albuterol sulfate 90 mcg/actuation 2 inh inhalation Q4H PRN Wheezing 12/26/18 Unknown History breath activated powder inhaler aspirin 81 mg tablet,delayed 81 mg PO DAILY heart health 12/26/18 04/28/20 08:00 History release (Adult Low Dose Aspirin) atorvastatin 40 mg tablet 40 mg PO QHS cholesterol 12/26/18 04/27/20 22:00 History dulaglutide 1.5 mg/0.5 mL 1.5 mg subcut FR diabetes 12/26/18 04/24/20 12:00 History subcutaneous pen injector (Trulicity) ibuprofen 800 mg tablet 800 mg PO Q6H PRN Pain Or Fever 12/26/18 Unknown History potassium chloride 10 mEq 20 meq PO DAILY supplement 12/26/18 04/28/20 08:00 History tablet,extended release (K-Tab) insulin degludec 100 unit/mL (3 83 unit SQ BID diabetes 09/01/19 04/28/20 17:00 History mL) subcutaneous pen buspirone 5 mg tablet 5 mg PO TID mood 04/28/20 04/28/20 17:00 History insulin lispro 100 unit/mL 40 unit SQ LUNCH diabetes 04/28/20 04/28/20 12:00 History subcutaneous pen insulin lispro 100 unit/mL 64 unit SQ BREAKFAST diabetes 04/28/20 04/28/20 08:00 History subcutaneous pen insulin lispro 100 unit/mL 94 unit subcut QHS diabetes 04/28/20 04/28/20 17:00 History subcutaneous pen sulfamethoxazole 800 1 tablet PO BID #10 TABLETS 04/30/20 Unknown Rx mg-trimethoprim 160 mg tablet insulin lispro 100 unit/mL 3 unit subcut DAILY 02/25/23 Unknown History subcutaneous half-unit pen (Humalog Zafar KwikPen (U-100)) insulin lispro 100 unit/mL 63 unit subcut DAILY 02/25/23 Unknown History subcutaneous half-unit pen (Humalog Zafar KwikPen (U-100)) insulin lispro 100 unit/mL 93 unit subcut QHS 02/25/23 Unknown History subcutaneous half-unit pen (Humalog Zafar KwikPen (U-100)) metformin 500 mg tablet,extended 1,000 mg PO BID 02/25/23 Unknown History release 24 hr omeprazole 20 mg capsule,delayed 20 mg PO DAILY 02/25/23 Unknown History release venlafaxine 75 mg capsule,extended 75 mg PO DAILY 02/25/23 Unknown History release 24 hr azithromycin 500 mg tablet 500 mg PO DAILY 3 days #3 tabs 02/27/23 Unknown Rx cefdinir 300 mg capsule 300 mg PO BID #10 caps 02/27/23 Unknown Rx cefdinir 300 mg capsule 300 mg PO BID #10 caps 02/27/23 Unknown Rx cefdinir 300 mg capsule 300 mg PO BID #10 caps 02/27/23 Unknown Rx prednisone 20 mg tablet 20 mg PO BID #10 tabs 02/27/23 Unknown Rx cephalexin 500 mg capsule 500 mg PO Q6 #40 CAPSULES 07/01/23 Unknown Rx hydrocodone-acetaminophen 5-325mg 1 tab PO Q6H PRN pain 5 days #14 09/04/23 Unknown Rx 5mg-325mg tabs Allergy/AdvReac Type Severity Reaction Status Date / Time tetanus and diphtheria Allergy Unknown swollen Verified 07/01/23 19:21 toxoids glands in neck that didn't decrease ketorolac tromethamine (From Allergy vivid Verified 07/01/23 19:21 Toradol) dreams morphine Allergy Itching Verified 07/01/23 19:21 Family History Aunt Diabetes Father Heart disease Sister Heart disease Grandfather Colon cancer Unknown Breast cancer Surgical History repair of r arm fx Hx of cholecystectomy History of renal stent H/O lithotripsy H/O dilation and curettage Hx of partial nephrectomy Social History household members: spouse Smoking Status: Current some day smoker tobacco type: cigarettes quit status: considering quitting alcohol intake: never substance use type: does not use ROS ROS ED ROS Narrative Denies recent illness. Review of Systems ROS Unobtainable: Denies due to encephalopathy Constitutional Constitutional ED: Denies chills or fever(s) Eyes Eyes: Denies blurry vision ENT ENT ED: Denies ear pain Cardiovascular Cardiovascular: Denies chest pain Respiratory/Chest Respiratory/Chest: Denies cough or dyspnea Gastrointestinal Gastrointestinal: Denies abdominal pain Genitourinary Genitourinary ED: Denies dysuria or hematuria Musculoskeletal Musculoskeletal: Denies arthralgias Integumentary Denies abscess or Abrasions Neurologic Neurologic: Denies headache(s) Psychiatric Psychiatric: Denies anxiety or depression Endocrine Endocrinology: Denies polydipsia Hematologic/Lymphatic Hematologic/Lymphatic: Denies easy bleeding, easy bruising or lymphadenopathy Allergic/Immunologic Allergic/Immunologic ED: Denies mouth swelling, tongue swelling or urticaria EXAM Physical Exam Narrative Exam Narrative: 57-year-old female no acute distress. Vital signs stable afebrile. She is chronically on 3 L of oxygen on that she is 96%. No distress. H EENT exam pupils round reactive light. Mytrex membranes. No signs of trauma. No tenderness. Neck and back nontender. Trachea midline. Lungs clear to auscultation bilaterally. Heart tachycardic rate of 110 no murmur. Chest wall and ribs nontender. Abdomen soft nontender. Pelvic girdle intact. She has no obvious shortening or rotation of the left hip. There is no tenderness along the femur. Knee is nontender. She was a do flexion extension. Has a mild contusion of the knee. Proximal tib-fib nontender. She has mild tenderness and chronic skin changes to the ankle and foot. Normal DP pulse. Able to wiggle her toes. Foot no specific deformity or tenderness. Neurologically she is awake and alert. Answering questions and following commands. Const Vital Signs: 09/04/23 08:36 09/04/23 08:40 Temperature 98.0 F Temperature Source Oral Pulse Rate 89 116 H Respiratory Rate 18 19 H Blood Pressure 170/89 H 171/89 H Blood Pressure Mean 116 116 Pulse Ox 98 96 Oxygen Delivery Method Nasal Cannula Nasal Cannula Oxygen Flow Rate (L/min) 3 3 Positive well nourished, well developed and obese; Negative for cachectic, contr actures or unkempt General Appearance ED: well developed; Negative for unkempt, cachectic or contractures Nutritional Appearance: obese; Negative for cachectic HEENT Reports moist mucous membranes normocephalic and atraumatic; Negative for trauma or tenderness Eyes PERRL General Eye ED: Negative for other Neck full ROM and supple Thyroid: Negative for tender Lymph Lymphatic: Negative for other Chest Wall inspection of chest normal and palpation of chest normal Chest: Negative for other Resp normal respiratory effort, no retractions and clear to auscultation bilaterally Resp Narrative: Few scattered wheezes. Effort and Inspection: Negative for pain with movement Auscultation: wheezes; Negative for rales or rhonchi Cardio regular rhythm, S1 normal heart sound, S2 normal heart sound and no murmurs; Negative for regular rate Rate: tachycardic GI non-tender, non-distended and no masses Inspection: Negative for abdominal distention Auscultation: normoactive bowel sounds Palpation: soft; Negative for tender, guarding or rebound tenderness present Back/Spine no CVA tenderness General Back: Negative for CVA tenderness Cervical Spine: Negative for cervical spine tenderness Thoracic Spine / Upper Back: Negative for thoracic spinal tenderness Lumbar Spine / Lower Back: Negative for lumbar spinal tenderness Extremity normal to inspection; Negative for full ROM Extremity Narrative: Very mild tenderness but no deformity, nor shortening or rotation of the left hip. Mild tenderness distal to left lower leg ankle. General Extremety ED: Yes edema; Negative for cyanosis General Extremity: edema; Negative for cyanosis Neuro oriented x3 Sensorium / Orientation: alert, oriented to person, oriented to place and oriented to time; Negative for orientation impaired, confused, lethargic or stuporous Motor Exam: strength 5/5 throughout Psych mental status grossly normal Appearance: Negative for unkempt Speech: No other Mood & Affect: Negative for anxious Skin no wounds Lesions: no lesions Rashes: no rashes Trauma: Negative for abrasion MDM MDM MDM Narrative Medical decision making narrative: 57-year-old female chronically on O2 due to chronic respiratory failure and diabetic tripped and fell 3 days ago helping her . Complaining of pain in the entire left lower leg. Left hip, femur, tib-fib and foot x-rays will be obtained. Repeat exam at 10:25 AM unchanged. Patient I went over her x-rays. Neither I nor the radiologist saw any fractures on her films basely gone from the left hip down to the foot. Patient is using a walker at home. She be written for [employer] for pain. Given 1 here. Was encouraged to follow-up by the end of the week if it is not improving. I did explain to her sometimes there is a small fracture that we cannot see on the first set of films. She is comfortable with the plan. Radiography Diagnostic Testing: Clinical Impression(s) from Imaging Studies Femur X-Ray 09/04/23 09:05 IMPRESSION: No evidence of acute fracture. Electronically Signed: Remington Fraire MD at 9:50 EDT , Foot X-Ray 09/04/23 09:05 IMPRESSION: No evidence of acute fracture. Electronically Signed: Remington Fraire MD at 9:54 EDT , Pelvis X-Ray 09/04/23 09:05 IMPRESSION: No evidence of displaced pelvic or hip fracture. Electronically Signed: Remington Fraire MD at 9:56 EDT , Tibia/Fibula X-Ray 09/04/23 09:05 IMPRESSION: No evidence of acute fracture. Electronically Signed: Remington Fraire MD at 9:51 EDT , Left hip x-ray read by myself and radiologist shows no acute abnormality. Arthritis but no fracture or dislocation. Left femur x-ray interpreted both by myself and the radiologist no fracture or dislocation. Left hip fib x-ray interpreted both by myself and the radiologist shows no acute fracture. Left foot x-ray shows chronic changes. 3 views. Interpreted both by myself and the radiologist. No fracture or dislocation noted. Discharge Plan Triage Chief Complaint: Lower Extremity Injury ED Provider: Den Oneill Dx/Rx/DC Orders Clinical Impression: Contusion of left leg, History of diabetes mellitus, Hx of chronic respiratory failure Instructions: ED Soft Tissue Contusion, ED Foot Contusion Prescriptions: New hydrocodone-acetaminophen 5-325 mg tablet 1 tab PO Q6H PRN (Reason: pain) 5 Days Qty: 14 0RF No Action Trulicity 1.5 mg/0.5 mL pen injector 1.5 mg SC FR Patient Comments: on fridays potassium chloride [K-Tab] 10 mEq tablet extended release 20 meq PO DAILY atorvastatin 40 mg tablet 40 mg PO QHS albuterol sulfate 90 mcg/actuation aerosol powdr breath activated 2 inh INHALATION Q4H PRN (Reason: Wheezing) ibuprofen 800 mg tablet 800 mg PO Q6H PRN (Reason: Pain Or Fever) aspirin [Adult Low Dose Aspirin] 81 mg tablet,delayed release (DR/EC) 81 mg PO DAILY furosemide 40 MG tablet 40 mg PO DAILY lisinopril-hydrochlorothiazide 1 TABLET tablet 2 tab PO DAILY venlafaxine 150 MG capsule 150 mg PO DAILY gabapentin 300 MG capsule 300 mg PO TID atenolol 50 MG tablet 50 mg PO DAILY insulin degludec 100 UNIT/ML insulin pen 83 unit SQ BID buspirone 5 MG tablet 5 mg PO TID insulin lispro 100 UNIT/ML insulin pen 64 unit SQ BREAKFAST Rx Instructions: 62/40/94 insulin lispro 100 UNIT/ML insulin pen 40 unit SQ LUNCH Rx Instructions: takes at noon insulin lispro 100 UNIT/ML insulin pen 94 unit SC QHS sulfamethoxazole-trimethoprim 1 TABLET tablet 1 tablet PO BID Qty: 10 0RF metformin 500 mg tablet extended release 24 hr 1,000 mg PO BID venlafaxine 75 mg capsule,extended release 24hr 75 mg PO DAILY omeprazole 20 mg capsule,delayed release(DR/EC) 20 mg PO DAILY insulin lispro [Humalog Zafar KwikPen U-100] 100 unit/mL insulin pen, half- unit 63 unit subcut DAILY Patient Comments: AM insulin lispro [Humalog Zafar KwikPen U-100] 100 unit/mL insulin pen, half- unit 3 unit subcut DAILY Patient Comments: afternoon insulin lispro [Humalog Zafar KwikPen U-100] 100 unit/mL insulin pen, half- unit 93 unit subcut QHS cefdinir 300 mg capsule 300 mg PO BID Qty: 10 0RF azithromycin 500 mg tablet 500 mg PO DAILY 3 Days Qty: 3 0RF cefdinir 300 mg capsule 300 mg PO BID Qty: 10 0RF prednisone 20 mg tablet 20 mg PO BID Qty: 10 0RF cefdinir 300 mg capsule 300 mg PO BID Qty: 10 0RF cephalexin 500 mg capsule 500 mg PO Q6 Qty: 40 0RF Primary Care Provider: Samson Todd Referrals: [place],Samson, MD [Primary Care Provider] - 1 Week if not improving Activity Restrictions/Additional Instructions: [place] for pain. Ice and rest your left leg. There is no obvious broken bones on the x-ray. If this is not improving you to follow-up with your doctor and have it reevaluated. Sometimes they need to do repeat x-rays because there is a small break that is not seen on the first set of x-rays. Print Language: Lao Disposition Disposition: Home, Self Care
--- NOTE | 2023-09-04 09:05 | RAD_ITS ---
INDICATION: fall EXAMINATION/TECHNIQUE: X-RAY - LEFT XR Tibia/Fibula 2 Views 2 VIEWS COMPARISON: No relevant prior comparison study available FINDINGS: SOFT TISSUES: No soft tissue swelling or gas. No radiopaque foreign body. BONES/JOINTS: No acute fracture or subluxation.. Normal alignment. Mild degenerative arthrosis of the knee. No sclerotic or destructive changes observed. RAD/Tibia & Fibula 2 Views IMPRESSION: No evidence of acute fracture. Electronically Signed: Remington Fraire MD at 9:51 EDT ,
--- NOTE | 2023-09-04 09:05 | RAD_ITS ---
INDICATION: fall EXAMINATION/TECHNIQUE: X-RAY - LEFT XR Foot Min 3 Views 3 VIEWS COMPARISON: No relevant prior comparison study available FINDINGS: SOFT TISSUES: No soft tissue swelling or gas. No radiopaque foreign body. BONES/JOINTS: No evidence of acute fracture or dislocation. Plantar and posterior calcaneal spurs. Calcific/bony densities medial to the navicular bone could be due to previous fractures. Acute fracture is doubtful. No sclerotic or destructive changes observed. RAD/Foot min 3 Views IMPRESSION: No evidence of acute fracture. Electronically Signed: Remington Fraire MD at 9:54 EDT ,
--- NOTE | 2023-09-04 09:05 | RAD_ITS ---
INDICATION: fall EXAMINATION/TECHNIQUE: X-RAY - LEFT XR Femur Min 2 Views 4 VIEWS COMPARISON: No relevant prior comparison study available FINDINGS: SOFT TISSUES: No soft tissue swelling or gas. No radiopaque foreign body. BONES/JOINTS: No evidence of acute fracture. The femoral head is suboptimally seen. Normal alignment. Preservation of the joint space.. No sclerotic or destructive changes observed. RAD/Femur Min 2 Views IMPRESSION: No evidence of acute fracture. Electronically Signed: Remington Fraire MD at 9:50 EDT ,
--- NOTE | 2023-09-04 09:05 | RAD_ITS ---
INDICATION: fall EXAMINATION/TECHNIQUE: X-RAY - XR Pelvis 1 or 2 Views COMPARISON: No relevant prior comparison study available FINDINGS: PELVIC BONES: No displaced fracture, destructive or sclerotic lesions. Note that overlapping bowel shadows may however obscure fine detail. Sacroiliac joints are unremarkable. No widening of the pubic symphysis. HIPS: Suboptimal visualization of the femoral necks. Mild narrowing of the hip joints No displaced fracture seen in this frontal view. SOFT TISSUES: No soft tissue swelling or gas. RAD/Pelvis 1 or 2 Views IMPRESSION: No evidence of displaced pelvic or hip fracture. Electronically Signed: Remington Fraire MD at 9:56 EDT ,
[2023-09-04] MEDS: HYDROcodone Bitartrate/Apap 5/325 Tablet PO (10:28)
[2023-09-04 10:36] VITALS: BP 153/93; PULSE 116; RESP 18; RESP 20; TEMP 36.1; O2SAT 92
--- NOTE | 2023-09-04 10:40 | ED.RN ---
Patient was offered help to get dressed. Patient stated that her daughter would help her. I told her to let me know if she needed help with anything. Patient is waiting on daughter to arrive to leave department due to patient being on O2 all the time.
== END 2023-09-04 11:09 | disposition home or self-care (01) ==
PROVIDERS: Emergency Provider Emergency Medicine; PCP Family Medicine; Visit Provider Emergency Medicine
DX: S80.12XA Contusion of left lower leg, initial encounter (principal); J96.10 Chronic respiratory failure, unspecified whether with hypoxia or hypercapnia; E66.01 Morbid (severe) obesity due to excess calories; E11.40 Type 2 diabetes mellitus with diabetic neuropathy, unspecified; E11.22 Type 2 diabetes mellitus with diabetic chronic kidney disease; F17.210 Nicotine dependence, cigarettes, uncomplicated; I12.9 Hypertensive chronic kidney disease with stage 1 through stage 4 chronic kidney disease, or unspecified chronic kidney disease; Z99.81 Dependence on supplemental oxygen; K21.9 Gastro-esophageal reflux disease without esophagitis; N18.9 Chronic kidney disease, unspecified; W19.XXXA Unspecified fall, initial encounter
CPT/HCPCS: 72170; 73552; 73590; 73630; 99282

== ENCOUNTER 2025-01-04 23:02 | Inpatient (IN) | payer MEDICAID, SELFPAY ==
[2025-01-04] VITALS (8 sets, daily range): BP systolic 146–200; BP diastolic 72–98; PULSE 92–106; RESP 18–30; TEMP 37.4; O2SAT 85–100; BMI 63.6
--- OUTSIDE RECORDS SUMMARY | 2025-01-04 23:18 | XMS RPT_ITS | CCD ---
Author Organization [facility] Care Team Providers Care Food Porter Name Role Phone Pat Todd MD Primary Care Provider [facility], Keti Unavailable Jovany Rizzo PA-C Primary Care Provider Pat Todd MD Primary Care Provider [facility], Keti Unavailable Jovany Rizzo PA-C Primary Care Provider [facility], Keti Unavailable Jovany Rizzo PA-C Primary Care Provider [facility], Keti Unavailable Jovany Rizzo PA-C Primary Care Provider [facility], Keti Unavailable Dr. Pat Todd Primary Care Provider Dr. Desmond Infante Emergency Provider Dr. Chelsi Warner Admit Provider Dr. Chelsi Warner Attending Provider Dr. Chelsi Warner Other Provider Dr. Russell Flower Attending Provider Unavailable Dr. Russell Flower Other Provider Unavailable Jovany Rizzo PA-C Primary Care Provider Pat Todd Primary Care Unavailable Steve Lacey Attending Unavailable Chelsi Warner Admitting Unavailable Pat Todd Primary Care Unavailable Chelsi Warner Consulting Unavailable Chelsi Warner Attending Unavailable Chelsi Warner Consulting Unavailable Pat Todd Primary Care Unavailable Chelsi Warner Admitting Unavailable Russell Flower Attending Unavailable Russell Flower Consulting Unavailable Chelsi Warner Admitting Unavailable Perez, Pat Primary Care Unavailable Chelsi Warner Consulting Unavailable Russell Flower Attending Unavailable Den Oneill Attending Unavailable Perez, Pat Primary Care Unavailable Pat Todd MD Primary Care Provider Stuart [facility], Mat Unavailable Matthias DUVAL, Rodriguez Hernandez Primary Care Provider Unavailable Haagen [employer] DIRECT[employer], Lu Unavailable Suppan [employer] DIRECTOR, Mary A Unavailable Suppan [employer] DIRECTOR, Mary A Unavailable Suppan [employer] DIRECTOR, Mary A Unavailable Haagen [employer] DIRECTOR, Lu Primary Care Provider Unavailable Primary Care Provider UnavailPat Barcenas MD Primary Care Provider Haagen [employer] [facility] DIRECTOR, Lu Unavailable Suppan [employer] DIRECTOR, Mary A Unavailable [phone] HAAGEN, LU Primary Care Unavailable PILAR CARDOZA Attending Unavailable PILAR CARDOZA Referring Unavailable HAAGEN, LU Primary Care Unavailable PEREZ, PAT Dykes Primary Care Unavailable HAAGEN, LU Attending Unavailable PEREZ, PAT Dykes Primary Care Unavailable HAAGEN, LU Referring Unavailable PEREZ, PAT Dykes Primary Care Unavailable HAAGEN, LU Attending Unavailable PEREZ, PAT J Primary Care Unavailable PILAR CARDOZA Referring Unavailable PEREZ, PAT J Primary Care Unavailable HAAGEN, LU Referring Unavailable ROLF YEPEZ Referring Unavailabl e HAAGEN, LU Primary Care Unavailable PILAR CARDOZA Referring Unavailable HAAGEN, LU Primary Care Unavailable Pat Todd MD Primary Care Provider Allergies Allergy Malignant neoplasm of kidney excluding renal pel vis 11/21/2008 06/25/2015 Urinary complications 03/21/2008 11/19/2015 Acute kidney failure, unspecified 03/21/2008 01/17/2017 documented as of this encounter (statuses as of 01/06/2022) [facility] History of Past illness Narrative* Problem Noted Date Resolved Date Pancreatic cyst 10/25/2021 10/25/2021 Overview: Dehiscence of incision 09/18/2009 1 Surgical wound infection 09/18/2009 019 Malignant neoplasm of kidney excluding renal pel vis 11/21/2008 06/25/2015 Urinary complications 03/21/2008 11/19/2015 Acute kidney failure, unspecified 03/21/2008 01/17/2017 documented as of this encounter (statuses as of 01/14/2022) [facility] History of Past illness Narrative* Problem Noted Date Resolved Date Pancreatic cyst 10/25/2021 10/25/2021 Overview: Dehiscence of incision 09/18/2009 1 Surgical wound infection 09/18/2009 019 Malignant neoplasm of kidney excluding renal pel vis 11/21/2008 06/25/2015 Urinary complications 03/21/2008 11/19/2015 Acute kidney failure, unspecified 03/21/2008 01/17/2017 documented as of this encounter (statuses as of 02/02/2022) [facility] History of Past illness Narrative* Problem Noted Date Resolved Date Pancreatic cyst 10/25/2021 10/25/2021 Overview: Dehiscence of incision 09/18/2009 1 Surgical wound infection 09/18/2009 019 Malignant neoplasm of kidney excluding renal pel vis 11/21/2008 06/25/2015 Urinary complications 03/21/2008 11/19/2015 Acute kidney failure, unspecified 03/21/2008 01/17/2017 documented as of this encounter (statuses as of 03/04/2022) [facility] History of Past illness Narrative* Problem Noted Date Resolved Date Pancreatic cyst 10/25/2021 10/25/2021 Overview: Dehiscence of incision 09/18/2009 1 Surgical wound infection 09/18/2009 019 Malignant neoplasm of kidney excluding renal pel vis 11/21/2008 06/25/2015 Urinary complications 03/21/2008 11/19/2015 Acute kidney failure, unspecified 03/21/2008 01/17/2017 documented as of this encounter (statuses as of 03/05/2022) [facility] History of Past illness Narrative* Problem Noted Date Resolved Date Pancreatic cyst 10/25/2021 10/25/2021 Overview: Dehiscence of incision 09/18/2009 1 Surgical wound infection 09/18/2009 019 Malignant neoplasm of kidney excluding renal pel vis 11/21/2008 06/25/2015 Urinary complications 03/21/2008 11/19/2015 Acute kidney failure, unspecified 03/21/2008 01/17/2017 documented as of this encounter (statuses as of 03/23/2022) [facility] of Past illness Narrative* Problem Noted Date Resolved Date Pancreatic cyst 10/25/2021 10/25/2021 Overview: Dehiscence of incision 09/18/2009 1 Surgical wound infection 09/18/2009 019 Malignant neoplasm of kidney excluding renal pel vis 11/21/2008 06/25/2015 Urinary complications 03/21/2008 11/19/2015 Acute kidney failure, unspecified 03/21/2008 01/17/2017 documented as of this encounter (statuses as of 04/15/2022) [facility] of Past illness Narrative* Problem Noted Date Resolved Date Pancreatic cyst 10/25/2021 10/25/2021 Overview: Dehiscence of incision 09/18/2009 1 Surgical wound infection 09/18/2009 019 Malignant neoplasm of kidney excluding renal pel vis 11/21/2008 06/25/2015 Urinary complications 03/21/2008 11/19/2015 Acute kidney failure, unspecified 03/21/2008 01/17/2017 documented as of this encounter (statuses as of 04/30/2022) [facility] of Past illness Narrative* Problem Noted Date Resolved Date Pancreatic cyst 10/25/2021 10/25/2021 Overview: Dehiscence of incision 09/18/2009 1 Surgical wound infection 09/18/2009 019 Malignant neoplasm of kidney excluding renal pel vis 11/21/2008 06/25/2015 Urinary complications 03/21/2008 11/19/2015 Acute kidney failure, unspecified 03/21/2008 01/17/2017 documented as of this encounter (statuses as of 05/17/2022) [facility] of Past illness Narrative* Problem Noted Date Resolved Date Pancreatic cyst 10/25/2021 10/25/2021 Overview: Dehiscence of incision 09/18/2009 1 Surgical wound infection 09/18/2009 019 Malignant neoplasm of kidney excluding renal pel vis 11/21/2008 06/25/2015 Urinary complications 03/21/2008 11/19/2015 Acute kidney failure, unspecified 03/21/2008 01/17/2017 documented as of this encounter (statuses as of 05/21/2022) [facility] of Past illness Narrative* Problem Noted Date Resolved Date Pancreatic cyst 10/25/2021 10/25/2021 Overview: Dehiscence of incision 09/18/2009 1 Surgical wound infection 09/18/2009 019 Malignant neoplasm of kidney excluding renal pel vis 11/21/2008 06/25/2015 Urinary complications 03/21/2008 11/19/2015 Acute kidney failure, unspecified 03/21/2008 01/17/2017 documented as of this encounter (statuses as of 05/21/2022) [facility] of Past illness Narrative* Problem Noted Date Resolved Date Pancreatic cyst 10/25/2021 10/25/2021 Overview: Dehiscence of incision 09/18/2009 1 Surgical wound infection 09/18/2009 019 Malignant neoplasm of kidney excluding renal pel vis 11/21/2008 06/25/2015 Urinary complications 03/21/2008 11/19/2015 Acute kidney failure, unspecified 03/21/2008 01/17/2017 documented as of this encounter (statuses as of 05/25/2022) [facility] of Past illness Narrative* Problem Noted Date Resolved Date Pancreatic cyst 10/25/2021 10/25/2021 Overview: Dehiscence of incision 09/18/2009 1 Surgical wound infection 09/18/2009 019 Malignant neoplasm of kidney excluding renal pel vis 11/21/2008 06/25/2015 Urinary complications 03/21/2008 11/19/2015 Acute kidney failure, unspecified 03/21/2008 01/17/2017 documented as of this encounter (statuses as of 05/28/2022) [facility] History of Past illness Narrative* Problem Noted Date Resolved Date Pancreatic cyst 10/25/2021 10/25/2021 Overview: Dehiscence of incision 09/18/2009 1 Surgical wound infection 09/18/2009 019 Malignant neoplasm of kidney excluding renal pel vis 11/21/2008 06/25/2015 Urinary complications 03/21/2008 11/19/2015 Acute kidney failure, unspecified 03/21/2008 01/17/2017 documented as of this encounter (statuses as of 05/28/2022) [facility] of Past illness Narrative* Problem Noted Date Resolved Date Pancreatic cyst 10/25/2021 10/25/2021 Overview: Dehiscence of incision 09/18/2009 1 Surgical wound infection 09/18/2009 019 Malignant neoplasm of kidney excluding renal pel vis 11/21/2008 06/25/2015 Urinary complications 03/21/2008 11/19/2015 Acute kidney failure, unspecified 03/21/2008 01/17/2017 documented as of this encounter (statuses as of 05/28/2022) [facility] History of Past illness Narrative* Problem Noted Date Resolved Date Pancreatic cyst 10/25/2021 10/25/2021 Overview: Dehiscence of incision 09/18/2009 1 Surgical wound infection 09/18/2009 019 Malignant neoplasm of kidney excluding renal pel vis 11/21/2008 06/25/2015 Urinary complications 03/21/2008 11/19/2015 Acute kidney failure, unspecified 03/21/2008 01/17/2017 documented as of this encounter (statuses as of 06/15/2022) [facility] of Past illness Narrative* Problem Noted Date Resolved Date Pancreatic cyst 10/25/2021 10/25/2021 Overview: Dehiscence of incision 09/18/2009 1 Surgical wound infection 09/18/2009 019 Malignant neoplasm of kidney excluding renal pel vis 11/21/2008 06/25/2015 Urinary complications 03/21/2008 11/19/2015 Acute kidney failure, unspecified 03/21/2008 01/17/2017 documented as of this encounter (statuses as of 06/28/2022) [facility] of Past illness Narrative* Problem Noted Date Resolved Date Pancreatic cyst 10/25/2021 10/25/2021 Overview: Dehiscence of incision 09/18/2009 1 Surgical wound infection 09/18/2009 019 Malignant neoplasm of kidney excluding renal pel vis 11/21/2008 06/25/2015 Urinary complications 03/21/2008 11/19/2015 Acute kidney failure, unspecified 03/21/2008 01/17/2017 documented as of this encounter (statuses as of 06/30/2022) [facility] of Past illness Narrative* Problem Noted Date Resolved Date Pancreatic cyst 10/25/2021 10/25/2021 Overview: Dehiscence of incision 09/18/2009 1 Surgical wound infection 09/18/2009 019 Malignant neoplasm of kidney excluding renal pel vis 11/21/2008 06/25/2015 Urinary complications 03/21/2008 11/19/2015 Acute kidney failure, unspecified 03/21/2008 01/17/2017 documented as of this encounter (statuses as of 07/23/2022) [facility] of Past illness Narrative* Problem Noted Date Resolved Date Pancreatic cyst 10/25/2021 10/25/2021 Overview: Dehiscence of incision 09/18/2009 1 Surgical wound infection 09/18/2009 019 Malignant neoplasm of kidney excluding renal pel vis 11/21/2008 06/25/2015 Urinary complications 03/21/2008 11/19/2015 Acute kidney failure, unspecified 03/21/2008 01/17/2017 documented as of this encounter (statuses as of 07/12/2022) [facility] of Past illness Narrative* Problem Noted Date Resolved Date Pancreatic cyst 10/25/2021 10/25/2021 Overview: Dehiscence of incision 09/18/2009 1 Surgical wound infection 09/18/2009 019 Malignant neoplasm of kidney excluding renal pel vis 11/21/2008 06/25/2015 Urinary complications 03/21/2008 11/19/2015 Acute kidney failure, unspecified 03/21/2008 01/17/2017 documented as of this encounter (statuses as of 07/21/2022) [facility] of Past illness Narrative* Problem Noted Date Resolved Date Pancreatic cyst 10/25/2021 10/25/2021 Overview: Dehiscence of incision 09/18/2009 1 Surgical wound infection 09/18/2009 019 Malignant neoplasm of kidney excluding renal pel vis 11/21/2008 06/25/2015 Urinary complications 03/21/2008 11/19/2015 Acute kidney failure, unspecified 03/21/2008 01/17/2017 documented as of this encounter (statuses as of 07/29/2022) [facility] of Past illness Narrative* Problem Noted Date Resolved Date Pancreatic cyst 10/25/2021 10/25/2021 Overview: Dehiscence of incision 09/18/2009 1 Surgical wound infection 09/18/2009 019 Malignant neoplasm of kidney excluding renal pel vis 11/21/2008 06/25/2015 Urinary complications 03/21/2008 11/19/2015 Acute kidney failure, unspecified 03/21/2008 01/17/2017 documented as of this encounter (statuses as of 08/06/2022) [facility] of Past illness Narrative* Problem Noted Date Resolved Date Pancreatic cyst 10/25/2021 10/25/2021 Overview: Dehiscence of incision 09/18/2009 1 Surgical wound infection 09/18/2009 019 Malignant neoplasm of kidney excluding renal pel vis 11/21/2008 06/25/2015 Urinary complications 03/21/2008 11/19/2015 Acute kidney failure, unspecified 03/21/2008 01/17/2017 documented as of this encounter (statuses as of 08/11/2022) [facility] of Past illness Narrative* Problem Noted Date Resolved Date Pancreatic cyst 10/25/2021 10/25/2021 Overview: Dehiscence of incision 09/18/2009 1 Surgical wound infection 09/18/2009 019 Malignant neoplasm of kidney excluding renal pel vis 11/21/2008 06/25/2015 Urinary complications 03/21/2008 11/19/2015 Acute kidney failure, unspecified 03/21/2008 01/17/2017 documented as of this encounter (statuses as of 08/15/2022) [facility] of Past illness Narrative* Problem Noted Date Resolved Date Pancreatic cyst 10/25/2021 10/25/2021 Overview: Dehiscence of incision 09/18/2009 1 Surgical wound infection 09/18/2009 019 Malignant neoplasm of kidney excluding renal pel vis 11/21/2008 06/25/2015 Urinary complications 03/21/2008 11/19/2015 Acute kidney failure, unspecified 03/21/2008 01/17/2017 documented as of this encounter (statuses as of 08/20/2022) [facility] of Past illness Narrative* Problem Noted Date Diagnosed Date Resolved Date Pancreatic cyst 10/25/2021 10/25/2021 Overview: Dehiscence of incision 09/18/200908/29 Surgical wound infection 09/18/2009 Malignant neoplasm of kidney excluding renal pelvis 11/21/2008 06/25/2015 Urinary complications 03/21/20082015 Acute kidney failure, unspecified 03/21/2008 01/17/2017 documented as of this encounter (statuses as of 09/15/2022) [facility] of Past illness Narrative* Problem Noted Date Diagnosed Date Resolved Date Pancreatic cyst 10/25/2021 10/25/2021 Overview: Dehiscence of incision 09/18/200908/29 Surgical wound infection 09/18/2009 Malignant neoplasm of kidney excluding renal pelvis 11/21/2008 06/25/2015 Urinary complications 03/21/20082015 Acute kidney failure, unspecified 03/21/2008 01/17/2017 documented as of this encounter (statuses as of 10/01/2022) [facility] of Past illness Narrative* Problem Noted Date Diagnosed Date Resolved Date Pancreatic cyst 10/25/2021 10/25/2021 Overview: Dehiscence of incision 09/18/200908/29 Surgical wound infection 09/18/2009 Malignant neoplasm of kidney excluding renal pelvis 11/21/2008 06/25/2015 Urinary complications 03/21/20082015 Acute kidney failure, unspecified 03/21/2008 01/17/2017 documented as of this encounter (statuses as of 10/06/2022) [facility] of Past illness Narrative* Problem Noted Date Diagnosed Date Resolved Date Pancreatic cyst 10/25/2021 10/25/2021 Overview: Dehiscence of incision 09/18/200908/29 Surgical wound infection 09/18/2009 Malignant neoplasm of kidney excluding renal pelvis 11/21/2008 06/25/2015 Urinary complications 03/21/20082015 Acute kidney failure, unspecified 03/21/2008 01/17/2017 documented as of this encounter (statuses as of 10/13/2022) [facility] of Past illness Narrative* Problem Noted Date Diagnosed Date Resolved Date Pancreatic cyst 10/25/2021 10/25/2021 Overview: Dehiscence of incision 09/18/200908/29 Surgical wound infection 09/18/2009 Malignant neoplasm of kidney excluding renal pelvis 11/21/2008 06/25/2015 Urinary complications 03/21/20082015 Acute kidney failure, unspecified 03/21/2008 01/17/2017 documented as of this encounter (statuses as of 11/05/2022) [facility] of Past illness Narrative* Problem Noted Date Diagnosed Date Resolved Date Pancreatic cyst 10/25/2021 10/25/2021 Overview: Dehiscence of incision 09/18/200908/29 Surgical wound infection 09/18/2009 Malignant neoplasm of kidney excluding renal pelvis 11/21/2008 06/25/2015 Urinary complications 03/21/20082015 Acute kidney failure, unspecified 03/21/2008 01/17/2017 documented as of this encounter (statuses as of 11/27/2022) [facility] of Past illness Narrative* Problem Noted Date Diagnosed Date Resolved Date Pancreatic cyst 10/25/2021 10/25/2021 Overview: Dehiscence of incision 09/18/200908/29 Surgical wound infection 09/18/2009 Malignant neoplasm of kidney excluding renal pelvis 11/21/2008 06/25/2015 Urinary complications 03/21/20082015 Acute kidney failure, unspecified 03/21/2008 01/17/2017 documented as of this encounter (statuses as of 11/28/2022) [facility] of Past illness Narrative* Problem Noted Date Diagnosed Date Resolved Date Pancreatic cyst 10/25/2021 10/25/2021 Overview: Dehiscence of incision 09/18/200908/29 Surgical wound infection 09/18/2009 Malignant neoplasm of kidney excluding renal pelvis 11/21/2008 06/25/2015 Urinary complications 03/21/20082015 Acute kidney failure, unspecified 03/21/2008 01/17/2017 documented as of this encounter (statuses as of 12/19/2022) [facility] of Past illness Narrative* Problem Noted Date Diagnosed Date Resolved Date Pancreatic cyst 10/25/2021 10/25/2021 Overview: Dehiscence of incision 09/18/200908/29 Surgical wound infection 09/18/2009 Malignant neoplasm of kidney excluding renal pelvis 11/21/2008 06/25/2015 Urinary complications 03/21/20082015 Acute kidney failure, unspecified 03/21/2008 01/17/2017 documented as of this encounter (statuses as of 12/27/2022) [facility] of Past illness Narrative* Problem Noted Date Diagnosed Date Resolved Date Pancreatic cyst 10/25/2021 10/25/2021 Overview: Dehiscence of incision 09/18/200908/29 Surgical wound infection 09/18/2009 Malignant neoplasm of kidney excluding renal pelvis 11/21/2008 06/25/2015 Urinary complications 03/21/20082015 Acute kidney failure, unspecified 03/21/2008 01/17/2017 documented as of this encounter (statuses as of 01/18/2023) [facility] of Past illness Narrative* Problem Noted Date Diagnosed Date Resolved Date Pancreatic cyst 10/25/2021 10/25/2021 Overview: Dehiscence of incision 09/18/200908/29 Surgical wound infection 09/18/2009 Malignant neoplasm of kidney excluding renal pelvis 11/21/2008 06/25/2015 Urinary complications 03/21/20082015 Acute kidney failure, unspecified 03/21/2008 01/17/2017 documented as of this encounter (statuses as of 01/29/2023) [facility] of Past illness Narrative* Problem Noted Date Diagnosed Date Resolved Date Pancreatic cyst 10/25/2021 10/25/2021 Overview: Dehiscence of incision 09/18/200908/29 Surgical wound infection 09/18/2009 Malignant neoplasm of kidney excluding renal pelvis 11/21/2008 06/25/2015 Urinary complications 03/21/20082015 Acute kidney failure, unspecified 03/21/2008 01/17/2017 documented as of this encounter (statuses as of 03/25/2023) [facility] of Past illness Narrative* Problem Noted Date Diagnosed Date Resolved Date Pancreatic cyst 10/25/2021 10/25/2021 Overview: Dehiscence of incision 09/18/200908/29 Surgical wound infection 09/18/2009 Malignant neoplasm of kidney excluding renal pelvis 11/21/2008 06/25/2015 Urinary complications 03/21/20082015 Acute kidney failure, unspecified 03/21/2008 01/17/2017 documented as of this encounter (statuses as of 04/21/2023) [facility] Past illness Narrative* Problem Noted Date Diagnosed Date Resolved Date Pancreatic cyst 10/25/2021 10/25/2021 Overview: Dehiscence of incision 09/18/200908/29 Surgical wound infection 09/18/2009 Malignant neoplasm of kidney excluding renal pelvis 11/21/2008 06/25/2015 Urinary complications 03/21/20082015 Acute kidney failure, unspecified 03/21/2008 01/17/2017 documented as of this encounter (statuses as of 05/17/2023) [place] [address]-11-2022 History of Past illness Narrative* Problem Noted Date Diagnosed Date Resolved Date Pancreatic cyst 10/25/2021 10/25/2021 Overview: Dehiscence of incision 09/18/200908/29 Surgical wound infection 09/18/2009 Malignant neoplasm of kidney excluding renal pelvis 11/21/2008 06/25/2015 Urinary complications 03/21/20082015 Acute kidney failure, unspecified 03/21/2008 01/17/2017 documented as of this encounter (statuses as of 05/18/2023) [facility] Past illness Narrative* Problem Noted Date Diagnosed Date Resolved Date Pancreatic cyst 10/25/2021 10/25/2021 Overview: Dehiscence of incision 09/18/200908/29 Surgical wound infection 09/18/2009 Malignant neoplasm of kidney excluding renal pelvis 11/21/2008 06/25/2015 Urinary complications 03/21/20082015 Acute kidney failure, unspecified 03/21/2008 01/17/2017 documented as of this encounter (statuses as of 05/23/2023) [facility] of Past illness Narrative* Problem Noted Date Diagnosed Date Resolved Date Pancreatic cyst 10/25/2021 10/25/2021 Overview: Dehiscence of incision 09/18/200908/29 Surgical wound infection 09/18/2009 Malignant neoplasm of kidney excluding renal pelvis 11/21/2008 06/25/2015 Urinary complications 03/21/20082015 Acute kidney failure, unspecified 03/21/2008 01/17/2017 documented as of this encounter (statuses as of 05/30/2023) [facility] Miscellaneous Notes* Telephone Encounter - Kandace Love RN - 10/18/2021 3:30 PM EDT Patient calling with request for medication/refill: Patient/caregiver requesting refill of Humalog be called to [facility] pharmacy at [phone].. Patient denies any new or worsening symptoms of which a provider is not aware: Yes. Allergies reviewed: Yes ALLERGIES Allergen Reactions Morphine Itching Tetanus And Diphthe* Other: See Comments ? Reactive lymphadenopathy Toradol [Ketorolac * Heart racing and nightmares The following medications were verbally ordered by and read back to Dr. Todd on 10/18/2021 at 3:31 PMby Kandace Love RN. Requested Prescriptions Signed Prescriptions Disp Refills insulin lispro (HUMALOG) 200 unit/mL (3 mL) injection 4 Each 2 Sig: Inject subcutaneously 66 units with breakfast, 40 units with lunch and 94 units with dinner The prescription(s) were phoned and read back to Pharmacist Sharon at [facility]; by Kandace Love RN. Patient/Family notified: Yes Kandace Love RN documented in this encounterAshtabula [facility]09-02-2022 Miscellaneous Notes* Telephone Encounter - Jovany Rodriguez RN - 10/16/2021 1:38 PM EDT Patient returned call and given provider's message below with verbalized understanding. Patient reports her daughter will tack picker container at lab. * Telephone Encounter - Elaine Parker LPN - 10/16/2021 11:59 AM EDT Left message to call office. * Telephone Encounter - Jovany Rizzo PA-C - 10/16/2021 7:53 AM EDT See mychart: large microalbuminuria. Please have her come into obtain container. Telephone on 10/16/21 ALBUMIN QUANT 24H UR CREAT CLEAR 24 HOUR Thanks, Gigi Rizzo PA-C documented in this encounterAshtabula [facility] Center09-01-2022 Miscellaneous Notes* Telephone Encounter - [...] having MRI done on October 16 in [place]. She plans to come in to have lab work done that Gigi Rizzo has ordered possibly Tuesday. She is needing a copy of the BUN faxed. Patient will call back, she will get name of facility and who to send results to and fax number. documented in this encounterAshtabula County Medical Center08-31-2022 Miscellaneous Notes* Telephone Encounter - Elaine Parker LPN - 10/14/2021 3:47 PM EDT Spoke with Karlee and she is going to take care of this. * Telephone Encounter - Dhara Naylor RN - 10/14/2021 3:07 PM EDT Karlee with [facility] states patient has rescheduled her MRI outside of authorized insurance timeframe. Karlee reports MOY Sousa would need contacted at [phone] for insurance extensionfor MRI. For any other further questions, may call Karlee back at [phone]. Thank you. documented in this encounterAshtabula County Medical Center08-31-2022 Miscellaneous Notes* Telephone Encounter - Elaine Parker LPN - 10/14/2021 1:50 PM EDT Faxed as requested from [facility]. * Telephone Encounter - Ema Joseph RN - 10/09/2021 3:21 PM EDT Pts daughter called in and reports Pt is having an MRI on 10/16/21 at [facility]. She states they need to have Pts BUN and Creat faxed up to them once Pt has labs drawn next week. Please fax lab results to [phone]. documented in this encounterAshtabula County Medical Center08-19-2022 Miscellaneous Notes* Telephone Encounter - MARK Shaw - 10/02/2021 1:32 PM EDT CD/ reports READY FOR PAN HELPER AT [facility] * Telephone Encounter - Tiesha Perez Pss - 10/02/2021 11:22 AM EDT Patient calling requesting CD and report of x-ray done on 10/22/20. Patient will pickup after 11:15 am on Tuesday, 10/05. Thank you! documented in this [facility]08-11-2022 History of Present illness Narrative* Jovany Rizzo PA-C - 09/24/2021 8:00 AM EDT [employer] video visit was used for evaluation of this patient. Location of patient: [place] Patient was offered a virtual/telemedicine appointment in [...] effects: Yes. Chest pain: some chest pain surfacy. Dyspnea: chronic. Edema: nothing new or worse [...] 1.36 Pvd (peripheral vascular disease) ([facility]) Current medications: ASA 81 mg daily 01/15/2022 PVR RABI 1.00, LABI 0.95 Chronic hypoxemic respiratory failure (hcc) Chronic obstructive pulmonary disease, unspecified copd type (hcc) Obstructive sleep apnea syndrome Lung nodules Current medications: O2 2 L/min nasal cannula continuous CPAP 11 cm with 20-minute ramp and humidification Radiologist Physician: Dr. Bernard. Interval history: 07/16/2021 last visit [...] Low 200s Watching diet? Yes- doing fairly well. Does eat spaghetti. Dping keto most of [...] Lymph 1.00 - 4.00 k/uL 3.76 2.35 [place]ac% % 5.1 5.0 Abs [place] <0.87 k/uL 0.73 0.59 Eosin% % 2.6 [...] morbid obesity. COPD (chronic obstructive pulmonary disease) ([facility]) with chronic hypoxemic respiratory failure; on oxygen 2 liters continuously Degenerative disc disease Depression Diabetes mellitus type II Dyslipidemia Hypertension IBS (irritable bowel syndrome) Microalbuminuria on chelsie inhibitor Obesity Palpitations Panic disorder Renal calculus Renal cell carcinoma of right kidney ([facility]) 2009 S/P partial right nephrectomy Sleep [...] units with dinner 15 Pen 0 Insulin [place]ena, Disposable, (ULTICARE PEN NEEDLE) 29 gauge x [...] week. 6 mL 4 flash glucose sensor (FREESTYLE MANNY 14 DAY SENSOR) kit Apply new sensor [...] daily. Dx: Type 2 DM - Uncontrolled E11 Insulin: [id number] Each 11 CPAP 11 cm via nasal mask with 20 min ramp and humidification. 1 Device 0 OXYGEN, HOME THERAPY, 2 L/min by Nasal Cannula route continuous. blood sugar diagnostic (BLOOD GLUCOSE TEST) test strip Test blood sugar(s) 4 times daily. Dx: Type 2 DM - Uncontrolled E1165 Insulin: Yes 150 Strip 11 ammonium lactate [...] PANEL BASIC 3. PVD (peripheral vascular disease) (HCC) - ICD9: 443.9, ICD10: I73.9 No current [...] type (HCC) - ICD9: 496, ICD10: J44.9 As above [...] PANEL - LIPID PANEL BASIC - FREESTYLE MANNY 2 READER - FREESTYLE MANNY 2 SENSOR KIT - CONSULT TO OPHTHALMOLOGY [...] call Jovany Rizzo PA-C documented in this encounterAshtabula County Medical Center08-04-2022 Miscellaneous Notes* Telephone Encounter - [...] you. Yesenia Blanco LPN documented in this encounterAshtabula County Medical Center07-25-2022 Miscellaneous Notes* Telephone Encounter - MARK Shaw - 09/07/2021 1:30 PM EDT Mailed * Telephone Encounter - Bhargavi Groves - 09/02/2021 4:52 PM EDT Pt calling to request disc of her CT done last October (10/22) be mailed to her doctors office as she can not come in to get it. Please mail to: ATTN: PAT [address] [place] [address] documented in this encounterAshtabula County Medical Center07-25-2022 Miscellaneous Notes* Telephone Encounter - Rich Irby LPN - 09/07/2021 11:10 AM EDT EDITA 07/10/21 NOV 09/24/21 * Telephone Encounter - Gayle Beltran - 09/07/2021 10:04 AM EDT Patient has [...] TODAY AT NOON. PLEASE CALL IN TODAY Gayle Benz [facility] documented in this encounterAshtabula County Medical Center07-15-2022 Miscellaneous Notes* Telephone Encounter - Patti Panda Ma - 08/28/2021 8:15 AM EDT Patient was notified that Tresiba is approved until 07/2022 Faxed approval information to lucy Panda Ma * Telephone Encounter - Yesenia Blanco LPN - 08/28/2021 8:04 AM EDT Pt called and states [facility] and [facility] are both [facility] her [...] medication. Yesenia Blanco LPN documented in this encounterAshtabula County Medical Center06-28-2022 Miscellaneous Notes* Telephone Encounter - Patti Panda Ma - 08/11/2021 8:56 AM EDT Tresiba Approved and patient notified via voicemail Patti Panda Ma * Telephone Encounter - Marlen Nixon LPN - 08/06/2021 11:36 AM EDT Electronic PA requested for tresiba. documented in this encounterAshtabula County Medical Center06-22-2022 Miscellaneous Notes* Telephone Encounter - Pilar Pendleton Pss - 08/05/2021 3:52 PM EDT Patient is currently out of her humalog, needs for tonight. Please call in to the [facility] pharmacy on file and notify patient when [...] advise. Pilar Pendleton Pss documented in this encounterAshtabula County Medical Center06-08-2022 Miscellaneous Notes* Telephone Encounter - Rich Irby LPN - 07/22/2021 5:06 PM EDT TC to pt, left message to return call to office. Rich Irby LPN * Telephone Encounter - Lu Greene APRN.CNP - 07/22/2021 4:26 PM EDT Script sent. Can let patient know and close encounter. Lu Greene APRN.CNP * Telephone Encounter - Marcy Pandya RN [...] you. Marcy Pandya, RN documented in this encounterAshtabula County Medical Center05-31-2022 Miscellaneous Notes* Telephone Encounter - Mat Davidson RPh - 07/14/2021 3:54 PM EDT Attempted to call patient for today's scheduled pharmacy phone follow up. Not able to reach after several attempts. Attempted to reach patient at listed numbers [phone] (LVM), and [phone]. On third attempt, patient's spouse answers phone to state patient is not available at this time. Instructed to return call to reschedule visit. He verbalized understanding. Mat Davidson PharmD Primary Care Clinical Pharmacist [facility] documented in this encounterAshtabula County Medical Center05-27-2022 History of Present illness Narrative* Jovany Rizzo PA-C - 07/10/2021 1:48 PM EDT MyChart video visit was used for evaluation of this patient. Location of patient: [place] Patient was offered a virtual/telemedicine appointment in [...] Hypertension IBS (irritable bowel syndrome) Microalbuminuria on chelsie inhibitor Obesity Palpitations Panic disorder Renal calculus [...] 1 tablet 0 flash glucose sensor (FREESTYLE MANNY 14 DAY SENSOR) kit Apply new sensor [...] Type 2 DM - Uncontrolled E11.65 Insulin: [id number] Each 11 Insulin [place], Disposable, (ULTICARE PEN NEEDLE) 29 gauge x [...] PM Jovany Rizzo PA-C documented in this encounterAshtabula County Medical Center05-10-2022 Miscellaneous Notes* Telephone Encounter - Becky Jimenez Ma - 06/23/2021 3:29 PM EDT Patient notified and willing to try MRI * Telephone Encounter - Pat Todd MD - 06/23/2021 3:11 PM EDT The [...] she is claustrophobic. She is asking Dr. Todd if another CT scan with contrast can be ordered to see if there are any changes from the last CT? Shestates if an MRI has to be completed, possibly a medication can be ordered to help her relax. Please advise patient. PH: [phone]. Thank you. documented in this encounterAshtabula County Medical Center05-10-2022 History of Present illness Narrative* Mat Davidson, [facility] - 06/23/2021 2:30 PM EDT Primary Care Pharmacy Visit REASON FOR CONSULT: DM GOALS: A1c < 7% CONSULTING PROVIDER: ARMIN Rizzo And Dr. Todd Date of Consult: 11/29/18 (Gigi) and 03/12/17 (Dr. Todd) Rosa Maria Menjivar is a 55 year [...] 2 tablets twice daily Preventative Medications: On CHELSIE/ARB: Yes On Statin: Yes GLYCEMIC CONTROL: SMBG [...] (Hcc) Mixed Hyperlipidemia Pvd (Peripheral Vascular Disease) ([facility]) Chronic Obstructive Pulmonary Disease (Hcc) PAST MEDICAL HISTORY Diagnosis Date COPD (chronic obstructive pulmonary disease) ([facility]) with chronic hypoxemic respiratory failure; on oxygen 2 liters continuously Degenerative disc disease Depression Diabetes mellitus type II Dyslipidemia Hypertension IBS (irritable bowel syndrome) Microalbuminuria on chelsie inhibitor Obesity Palpitations Panic disorder Renal calculus [...] mg subcutaneously one time a week. Insulin [place], Disposable, (ULTICARE PEN NEEDLE) 29 gauge x [...] complication, with long-term current use of insulin ([facility]) - ICD9: 250.00, V58.67, ICD10: E11.9, [...] MG/0.5 ML SUBCUTANEOUS PEN INJECTOR - FREESTYLE MANNY 14 DAY SENSOR KIT - ALBUMIN/CREAT RATIO RND UR Follow up: Patient is scheduled to see PCP on 09/17/21. Patient to follow up with PharmD on 07/14/21. Patient verbalized understanding of instructions. Mat Davidson PharmD, BCACP Primary Care Clinical Pharmacist [facility] The majority of the pharmacy visit (> 50%) was spent counseling and/or coordinating care for thepatient. [Telephonic] time was 18 minutes. documented in this encounterAshtabula County Medical Center05-05-2022 Miscellaneous Notes* Telephone Encounter - Nika Watters MA - 06/18/2021 8:51 AM EDT Daughter notified. * Telephone Encounter - Pat Todd MD - 06/18/2021 8:36 AM EDT Cholesterol was good. It looks like only part of the labs were done due to epic change. Needs at least a1c as well. documented in this encounterAshtabula County Medical Center04-27-2022 Miscellaneous Notes* Telephone Encounter - Pat Todd MD - 06/10/2021 2:17 PM EDT Placed * Telephone Encounter - Macry Pandya RN - 06/10/2021 12:23 PM EDT Patient calling with request for new order MRI abdomen (MRI Liver WO/WIVCON). She came to [facility] on 05/29 to have it done but became claustrophobic and it was cancelled. She says she can go to [place] where they have a bigger MRI machine. Marcy Pandya, RN documented in this encounterAshtabula County Medical Center04-21-2022 Miscellaneous Notes* Telephone Encounter - [...] Center. Yesenia Blanco LPN documented in this encounterAshtabula County Medical Center04-19-2022 History of Present illness Narrative* Mat Davidson, [facility] - 06/02/2021 1:00 PM EDT Primary Care Pharmacy Visit REASON FOR CONSULT: DM GOALS: A1c < 7% CONSULTING PROVIDER: ARMIN Rizzo And Dr. Todd Date of Consult: 11/29/18 (Gigi) and 03/12/17 (Dr. Todd) Rosa Maria Menjivar is a 55 year old female presenting for follow up visit by telephone. Patient consents to pharmacy collaborative practice agreement. Last seen by PCP, Dr. Pat Todd MD on 01/15/2021. At last PCP appt, [...] finger sticks as she had trouble keeping Manny sensors on her arm, states they would [...] 2 tablets twice daily Preventative Medications: On CHELSIE/ARB: Yes On Statin: Yes GLYCEMIC CONTROL: Glucometer [...] With Bmi of 50.0-59.9, Adult ([facility]) Depression Ddd (Degenerative Disc Disease), Lumbar Ibs (Irritable Bowel Syndrome) Panic Disorder Sleep Apnea Hypertension Diabetes Mellitus ([facility]) Lumbago Malignant Neoplasm of Kidney Excluding Renal Pelvis ([facility]) Mixed Hyperlipidemia Pvd (Peripheral Vascular Disease) ([facility]) Chronic Obstructive Pulmonary Disease ([facility]) PAST MEDICAL HISTORY Diagnosis Date COPD (chronic obstructive pulmonary disease) ([facility]) with chronic hypoxemic respiratory failure; on oxygen 2 liters continuously Degenerative disc disease Depression Diabetes mellitus type II Dyslipidemia Hypertension IBS (irritable bowel syndrome) Microalbuminuria on chelsie inhibitor Obesity Palpitations Panic disorder Renal calculus Renal cell carcinoma of right kidney ([facility]) 2009 S/P partial right nephrectomy Sleep [...] Inject 88 Units subcutaneously twice daily. Insulin [place], Disposable, (ULTICARE PEN NEEDLE) 29 gauge x [...] TG 343 03/24/2020 The ASCVD Risk score (Leticia KIMO Jr., et al., 2013) failed to calculate for the following reasons: The valid total cholesterol range is 130 to 320 mg/dL Albumin/Creat Ratio (mg/g) Date Value 03/24/2020 937 (H) PHARMACOTHERAPY ASSESSMENT/PLAN: 1. Type 2 diabetes mellitus without complication, with long-term current use of insulin ([facility]) - ICD9: 250.00, V58.67, ICD10: E11.9, [...] Davidson PharmD, BCACP Primary Care Clinical Pharmacist [facility] The majority of the pharmacy visit (> 50%) was spent counseling and/or coordinating care for thepatient. [Telephonic] time was 23 minutes. documented in this encounterAshtabula County Medical Center04-15-2022 Miscellaneous Notes* Telephone Encounter - [...] you. Izabella Haas LPN documented in this encounterAshtabula County Medical Center04-15-2022 Miscellaneous Notes* Telephone Encounter - Elaine Parker LPN - 05/29/2021 10:18 AM EDT Patient here to have labs completed and needs updated labs from remote use only labs. No need to contact can close after orders filed. documented in this encounterAshtabula County Medical Center12-07-2020 History of Present illness Narrative* Mecca Medina (Rt), Chris - 01/21/2020 9:00 AM EST Radiology Service Progress Note PATIENT NAME: Rosa Maria Menjivar DATE OF SERVICE: January 21, 2020 TIME: 9:37 AM PATIENT IDENTITY VERIFICATION COMPLETED USING TWO (2) IDENTIFIERS: Name and Date of confirmedby patient verbally. FALL SCREENING: Has the patient had 2 falls in the last year or 1 fall with injury or currently using an Ambulatory Assistive Device (Walker, Cane, Wheelchair, Crutches, etc.)? No PATIENT GENDER DATA: Female. status: : No status: NO. PATIENT RELEVANT IMPLANT DATA REVIEWED: Not Applicable RADIOLOGY DEPARTMENT: General X-ray: Exam(s) Completed: Abdomen X-Ray Abdomen PERIPHERAL IV DATA: Not applicable SIGNED BY: RT Antonia January 21, 2020 9:37 AM documented in this encounterAshtabula County Medical Center08-05-2010 History of Past illness Narrative* Problem Noted Date Resolved Date Dehiscence of incision 09/18/2009 1 Surgical wound infection 09/18/2009 019 Malignant neoplasm of kidney excluding renal pel vis 11/21/2008 06/25/2015 Urinary complications 03/21/2008 11/19/2015 Acute kidney failure, unspecified 03/21/2008 01/17/2017 documented as of this encounter (statuses as of 05/29/2021) [facility]08[facility]-2010 [facility] of Past illness Narrative* Problem Noted Date Resolved Date Dehiscence of incision 09/18/2009 1 Surgical wound infection 09/18/2009 019 Malignant neoplasm of kidney excluding renal pel vis 11/21/2008 06/25/2015 Urinary complications 03/21/2008 11/19/2015 Acute kidney failure, unspecified 03/21/2008 01/17/2017 documented as of this encounter (statuses as of 05/29/2021) [facility]08[facility] of Past illness Narrative* Problem Noted Date Resolved Date Dehiscence of incision 09/18/2009 1 Surgical wound infection 09/18/2009 019 Malignant neoplasm of kidney excluding renal pel vis 11/21/2008 06/25/2015 Urinary complications 03/21/2008 11/19/2015 Acute kidney failure, unspecified 03/21/2008 01/17/2017 documented as of this encounter (statuses as of 05/30/2021) [facility]08[facility] of Past illness Narrative* Problem Noted Date Resolved Date Dehiscence of incision 09/18/2009 1 Surgical wound infection 09/18/2009 019 Malignant neoplasm of kidney excluding renal pel vis 11/21/2008 06/25/2015 Urinary complications 03/21/2008 11/19/2015 Acute kidney failure, unspecified 03/21/2008 01/17/2017 documented as of this encounter (statuses as of 06/04/2021) [facility] of Past illness Narrative* Problem Noted Date Resolved Date Dehiscence of incision 09/18/2009 1 Surgical wound infection 09/18/2009 019 Malignant neoplasm of kidney excluding renal pel vis 11/21/2008 06/25/2015 Urinary complications 03/21/2008 11/19/2015 Acute kidney failure, unspecified 03/21/2008 01/17/2017 documented as of this encounter (statuses as of 06/10/2021) [facility] of Past illness Narrative* Problem Noted Date Resolved Date Dehiscence of incision 09/18/2009 1 Surgical wound infection 09/18/2009 019 Malignant neoplasm of kidney excluding renal pel vis 11/21/2008 06/25/2015 Urinary complications 03/21/2008 11/19/2015 Acute kidney failure, unspecified 03/21/2008 01/17/2017 documented as of this encounter (statuses as of 06/14/2021) [facility] of Past illness Narrative* Problem Noted Date Resolved Date Dehiscence of incision 09/18/2009 1 Surgical wound infection 09/18/2009 019 Malignant neoplasm of kidney excluding renal pel vis 11/21/2008 06/25/2015 Urinary complications 03/21/2008 11/19/2015 Acute kidney failure, unspecified 03/21/2008 01/17/2017 documented as of this encounter (statuses as of 06/18/2021) [facility] of Past illness Narrative* Problem Noted Date Resolved Date Dehiscence of incision 09/18/2009 1 Surgical wound infection 09/18/2009 019 Malignant neoplasm of kidney excluding renal pel vis 11/21/2008 06/25/2015 Urinary complications 03/21/2008 11/19/2015 Acute kidney failure, unspecified 03/21/2008 01/17/2017 documented as of this encounter (statuses as of 06/23/2021) [facility] of Past illness Narrative* Problem Noted Date Resolved Date Dehiscence of incision 09/18/2009 1 Surgical wound infection 09/18/2009 019 Malignant neoplasm of kidney excluding renal pel vis 11/21/2008 06/25/2015 Urinary complications 03/21/2008 11/19/2015 Acute kidney failure, unspecified 03/21/2008 01/17/2017 documented as of this encounter (statuses as of 06/24/2021) [facility] of Past illness Narrative* Problem Noted Date Resolved Date Dehiscence of incision 09/18/2009 1 Surgical wound infection 09/18/2009 019 Malignant neoplasm of kidney excluding renal pel vis 11/21/2008 06/25/2015 Urinary complications 03/21/2008 11/19/2015 Acute kidney failure, unspecified 03/21/2008 01/17/2017 documented as of this encounter (statuses as of 07/10/2021) [facility] of Past illness Narrative* Problem Noted Date Resolved Date Dehiscence of incision 09/18/2009 1 Surgical wound infection 09/18/2009 019 Malignant neoplasm of kidney excluding renal pel vis 11/21/2008 06/25/2015 Urinary complications 03/21/2008 11/19/2015 Acute kidney failure, unspecified 03/21/2008 01/17/2017 documented as of this encounter (statuses as of 07/24/2021) [facility] of [facility] illness Narrative* Problem Noted Date Resolved Date Dehiscence of incision 09/18/2009 1 Surgical wound infection 09/18/2009 019 Malignant neoplasm of kidney excluding renal pel vis 11/21/2008 06/25/2015 Urinary complications 03/21/2008 11/19/2015 Acute kidney failure, unspecified 03/21/2008 01/17/2017 documented as of this encounter (statuses as of 07/29/2021) [facility] of [facility] illness Narrative* Problem Noted Date Resolved Date Dehiscence of incision 09/18/2009 1 Surgical wound infection 09/18/2009 019 Malignant neoplasm of kidney excluding renal pel vis 11/21/2008 06/25/2015 Urinary complications 03/21/2008 11/19/2015 Acute kidney failure, unspecified 03/21/2008 01/17/2017 documented as of this encounter (statuses as of 08/05/2021) [facility] of [facility] illness Narrative* Problem Noted Date Resolved Date Dehiscence of incision 09/18/2009 1 Surgical wound infection 09/18/2009 019 Malignant neoplasm of kidney excluding renal pel vis 11/21/2008 06/25/2015 Urinary complications 03/21/2008 11/19/2015 Acute kidney failure, unspecified 03/21/2008 01/17/2017 documented as of this encounter (statuses as of 08/10/2021) [facility] of [facility] Narrative* Problem Noted Date Resolved Date Dehiscence of incision 09/18/2009 1 Surgical wound infection 09/18/2009 019 Malignant neoplasm of kidney excluding renal pel vis 11/21/2008 06/25/2015 Urinary complications 03/21/2008 11/19/2015 Acute kidney failure, unspecified 03/21/2008 01/17/2017 documented as of this encounter (statuses as of 08/11/2021) [facility] Narrative* Problem Noted Date Resolved Date Dehiscence of incision 09/18/2009 1 Surgical wound infection 09/18/2009 019 Malignant neoplasm of kidney excluding renal pel vis 11/21/2008 06/25/2015 Urinary complications 03/21/2008 11/19/2015 Acute kidney failure, unspecified 03/21/2008 01/17/2017 documented as of this encounter (statuses as of 08/13/2021) [facility] Narrative* Problem Noted Date Resolved Date Dehiscence of incision 09/18/2009 1 Surgical wound infection 09/18/2009 019 Malignant neoplasm of kidney excluding renal pel vis 11/21/2008 06/25/2015 Urinary complications 03/21/2008 11/19/2015 Acute kidney failure, unspecified 03/21/2008 01/17/2017 documented as of this encounter (statuses as of 08/28/2021) [facility] Narrative* Problem Noted Date Resolved Date Dehiscence of incision 09/18/2009 1 Surgical wound infection 09/18/2009 019 Malignant neoplasm of kidney excluding renal pel vis 11/21/2008 06/25/2015 Urinary complications 03/21/2008 11/19/2015 Acute kidney failure, unspecified 03/21/2008 01/17/2017 documented as of this encounter (statuses as of 09/07/2021) [facility] Narrative* Problem Noted Date Resolved Date Dehiscence of incision 09/18/2009 1 Surgical wound infection 09/18/2009 019 Malignant neoplasm of kidney excluding renal pel vis 11/21/2008 06/25/2015 Urinary complications 03/21/2008 11/19/2015 Acute kidney failure, unspecified 03/21/2008 01/17/2017 documented as of this encounter (statuses as of 09/07/2021) [facility] of [facility] Narrative* Problem Noted Date Resolved Date Dehiscence of incision 09/18/2009 1 Surgical wound infection 09/18/2009 019 Malignant neoplasm of kidney excluding renal pel vis 11/21/2008 06/25/2015 Urinary complications 03/21/2008 11/19/2015 Acute kidney failure, unspecified 03/21/2008 01/17/2017 documented as of this encounter (statuses as of 09/17/2021) [facility] History of Past illness Narrative* Problem Noted Date Resolved Date Dehiscence of incision 09/18/2009 1 Surgical wound infection 09/18/2009 019 Malignant neoplasm of kidney excluding renal pel vis 11/21/2008 06/25/2015 Urinary complications 03/21/2008 11/19/2015 Acute kidney failure, unspecified 03/21/2008 01/17/2017 documented as of this encounter (statuses as of 09/24/2021) [facility] History of Past illness Narrative* Problem Noted Date Resolved Date Dehiscence of incision 09/18/2009 1 Surgical wound infection 09/18/2009 019 Malignant neoplasm of kidney excluding renal pel vis 11/21/2008 06/25/2015 Urinary complications 03/21/2008 11/19/2015 Acute kidney failure, unspecified 03/21/2008 01/17/2017 documented as of this encounter (statuses as of 10/02/2021) [facility] History of Past illness Narrative* Problem Noted Date Resolved Date Dehiscence of incision 09/18/2009 1 Surgical wound infection 09/18/2009 019 Malignant neoplasm of kidney excluding renal pel vis 11/21/2008 06/25/2015 Urinary complications 03/21/2008 11/19/2015 Acute kidney failure, unspecified 03/21/2008 01/17/2017 documented as of this encounter (statuses as of 10/14/2021) [facility] History of Past illness Narrative* Problem Noted Date Resolved Date Dehiscence of incision 09/18/2009 1 Surgical wound infection 09/18/2009 019 Malignant neoplasm of kidney excluding renal pel vis 11/21/2008 06/25/2015 Urinary complications 03/21/2008 11/19/2015 Acute kidney failure, unspecified 03/21/2008 01/17/2017 documented as of this encounter (statuses as of 10/15/2021) [facility] History of Past illness Narrative* Problem Noted Date Resolved Date Dehiscence of incision 09/18/2009 1 Surgical wound infection 09/18/2009 019 Malignant neoplasm of kidney excluding renal pel vis 11/21/2008 06/25/2015 Urinary complications 03/21/2008 11/19/2015 Acute kidney failure, unspecified 03/21/2008 01/17/2017 documented as of this encounter (statuses as of 10/16/2021) [facility] History of Past illness Narrative* Problem Noted Date Resolved Date Dehiscence of incision 09/18/2009 1 Surgical wound infection 09/18/2009 019 Malignant neoplasm of kidney excluding renal pel vis 11/21/2008 06/25/2015 Urinary complications 03/21/2008 11/19/2015 Acute kidney failure, unspecified 03/21/2008 01/17/2017 documented as of this encounter (statuses as of 10/18/2021) [facility] note* Diagnosis Type 2 diabetes mellitus without complication, with long-term current use of insulin (HCC)- Primary Mixed hyperlipidemia Primary hypertension Unspecified essential hypertension Essential hypertension Unspecified essential hypertension [facility] Diagnosis Anxiety Anxiety state, unspecified Essential hypertension Unspecified essential hypertension Hypokalemia Hypopotassemia [facility] Diagnosis Liver mass Unspecified disorder of liver [facility] Diagnosis SOB (shortness of breath)- Primary Shortness of breath [facility] Diagnosis Liver mass- Primary Unspecified disorder of liver [facility] Diagnosis Type 2 diabetes mellitus without complication, with long-term current use of insulin (HCC)- Primary [facility] Diagnosis Type 2 diabetes mellitus without complication, with long-term current use of insulin (HCC)- Primary [facility] Diagnosis Anxiety- Primary Anxiety state, unspecified [facility] Diagnosis Type 2 diabetes mellitus without complication, with long-term current use of insulin (HCC)- Primary [facility] Diagnosis Acute maxillary sinusitis, recurrence not specified- Primary [facility] Diagnosis Type 2 diabetes mellitus without complication, with long-term current use of insulin (HCC) [facility] Diagnosis Encounter for screening mammogram for breast cancer [facility] Diagnosis DDD (degenerative disc disease), lumbar Degeneration of lumbar or lumbosacral intervertebral disc [facility] Diagnosis Primary hypertension- Primary Unspecified [...] of the cervix [facility] Diagnosis Uncontrolled type 2 diabetes mellitus with hyperglycemia (HCC)- Primary [facility] Diagnosis Microalbuminuria- Primary Proteinuria [facility] Diagnosis Type 2 diabetes mellitus without complication, with long-term current use of insulin (HCC) [facility] Diagnosis gallbladder duct cyst- Primary Other specified disorders of liver Staghorn renal calculus Calculus of kidney Adrenal adenoma, right [facility] Diagnosis Hypokalemia Hypopotassemia Essential hypertension Unspecified essential hypertension Anxiety Anxiety state, unspecified [facility] Diagnosis Essential hypertension Unspecified essential hypertension Mixed hyperlipidemia Panic disorder Panic disorder without agoraphobia DDD (degenerative disc disease), lumbar Degeneration of lumbar or lumbosacral intervertebral disc [facility] Diagnosis Type 2 diabetes mellitus without complication, with long-term current use of insulin (HCC) [facility] Diagnosis Type 2 diabetes mellitus without complication, with long-term current use of insulin (HCC) [facility] Diagnosis Albuminuria- Primary Proteinuria Type 2 diabetes mellitus with other specified complication, with long-term current use of insulin (HCC) [facility]* Diagnosis DDD (degenerative disc disease), lumbar Degeneration of lumbar or lumbosacral intervertebral disc [facility] Diagnosis Anxiety- Primary Anxiety state, unspecified Depression, unspecified depression type Type 2 diabetes mellitus without complication, with long-term current use of insulin (HCC) Primary hypertension Unspecified essential hypertension [facility] Diagnosis Type 2 diabetes mellitus without complication, with long-term current use of insulin (HCC) [facility] Diagnosis Essential hypertension Unspecified essential hypertension Anxiety Anxiety state, unspecified Hypokalemia Hypopotassemia [facility] Diagnosis Ground glass opacity present on imaging of lung- Primary Lung nodules Other nonspecific abnormal finding of lung field [facility] Diagnosis Essential hypertension- Primary Unspecified essential [...] Calculus of kidney [facility] Diagnosis DDD (degenerative disc disease), lumbar Degeneration of lumbar or lumbosacral intervertebral disc Essential hypertension Unspecified essential hypertension Mixed hyperlipidemia Panic disorder Panic disorder without agoraphobia Type 2 diabetes mellitus without complication, with long-term current use of insulin (HCC) [facility] Diagnosis Type 2 diabetes mellitus without complication, with long-term current use of insulin (HCC) [facility] Diagnosis Depression, unspecified depression type [facility] Diagnosis Type 2 diabetes mellitus without complication, with long-term current use of insulin (HCC) [facility] Diagnosis Redness of skin- Primary Unspecified erythematous condition Bilateral elbow joint pain [facility] Diagnosis Encounter for screening mammogram for breast cancer [facility] Diagnosis Type 2 diabetes mellitus without complication, with long-term current use of insulin (HCC) [facility] Diagnosis Type 2 diabetes mellitus without complication, with long-term current use of insulin (HCC) [facility] Diagnosis Type 2 diabetes mellitus without complication, with long-term current use of insulin (HCC) [facility] Diagnosis Venous insufficiency of both lower extremities- Primary [facility]* Diagnosis DDD (degenerative disc disease), lumbar Degeneration of lumbar or lumbosacral intervertebral disc [facility] Diagnosis Depression, unspecified depression type [facility] Diagnosis Type 2 diabetes mellitus without complication, with long-term current use of insulin (HCC) [facility] Diagnosis Essential hypertension Unspecified essential hypertension Anxiety Anxiety state, unspecified Hypokalemia Hypopotassemia [facility] Diagnosis DDD (degenerative disc disease), lumbar Degeneration of lumbar or lumbosacral intervertebral disc Essential hypertension Unspecified essential hypertension Mixed hyperlipidemia Panic disorder Panic disorder without agoraphobia [facility] Diagnosis Essential hypertension- Primary Unspecified essential [...] of left hand [facility] Diagnosis Thyroid nodule greater than or equal to 1 cm in diameter incidentally noted on imaging study- Primary [facility] Diagnosis Thyroid nodule Nontoxic uninodular goiter [facility]* Diagnosis Lung nodules Other nonspecific abnormal finding of lung field Cigarette smoker Tobacco use disorder History of renal cell cancer documented in this encounter [facility] note* Diagnosis Type 2 diabetes mellitus without complication, with long-term current use of insulin (HCC) documented in this encounter [facility] note* Diagnosis DDD (degenerative disc disease), lumbar Degeneration of lumbar or lumbosacral intervertebral disc documented in this encounter [facility] note* Diagnosis Onset Date Resolution Status Hypoxia acute Tobacco abuse acute COPD with acute exacerbation chronic [facility]* Diagnosis Hypokalemia Hypopotassemia Anxiety Anxiety state, unspecified Essential hypertension Unspecified essential hypertension [facility]* Diagnosis DDD (degenerative disc disease), lumbar Degeneration of lumbar or lumbosacral intervertebral disc Essential hypertension Unspecified essential hypertension Mixed hyperlipidemia Panic disorder Panic disorder without agoraphobia Type 2 diabetes mellitus without complication, with long-term current use of insulin ([facility]) [facility] this [facility]* Diagnosis Special screening examination for viral disease- Primary Special screening examination for unspecified viral disease Type 2 diabetes mellitus without complication, with long-term current use of insulin (HCC) Chronic obstructive pulmonary disease, unspecified COPD type (HCC) Mixed hyperlipidemia Essential hypertension Unspecified essential hypertension Anxiety Anxiety state, unspecified Depression, unspecified depression type Polycythemia Polycythemia vera Microalbuminuria Proteinuria documented in this encounter [facility] note* Diagnosis Ground glass opacity present on imaging of lung- Primary Lung nodules Other nonspecific abnormal finding of lung field [facility]* Diagnosis Depression, unspecified depression type documented [facility] this [facility]* Diagnosis Type 2 diabetes mellitus without complication, with long-term current use of insulin (HCC) [facility]* Diagnosis Hypertension, essential- Primary Unspecified essential hypertension Mixed diabetic hyperlipidemia 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) (HCC) PVD (peripheral vascular disease) (HCC) Peripheral vascular disease, unspecified Chronic hypoxemic respiratory failure (HCC) Chronic respiratory failure COPD with chronic bronchitis (HCC) Obstructive chronic bronchitis without exacerbation Obstructive sleep apnea syndrome Obstructive sleep apnea (adult) (pediatric) Lung nodules Other nonspecific abnormal finding of lung field Screening for diabetic retinopathy Screening for other eye conditions Screening for colon cancer Special screening for malignant neoplasms, colon Type 2 diabetes mellitus with stage 3b chronic kidney disease, with long-term current use of insulin (HCC) Chronic depression Depressive disorder, not elsewhere classified NANCY (generalized anxiety disorder) Generalized anxiety disorder Panic disorder Panic disorder without agoraphobia Polycythemia secondary to smoking Polycythemia, secondary Irritable bowel syndrome with both constipation and diarrhea Type 2 diabetes mellitus without complication, with long-term current use of insulin (HCC) Depression, unspecified depression type Encounter for immunization Need for other specified prophylactic vaccination against single bacterial disease Screening for cervical cancer Screening for malignant neoplasm of the cervix Encounter for screening mammogram for malignant neoplasm of breast Other screening mammogram Wellness examination [facility] Lung nodules Other nonspecific abnormal finding of lung field Ground glass opacity present on imaging of lung [facility] Diagnosis Diabetic nephrosis (HCC)- Primary Type II or unspecified type diabetes mellitus with renal manifestations, not stated as uncontrolled Cushingoid facies Other ill-defined conditions Adenoma of right adrenal gland [facility] Diagnosis Insulin-requiring or dependent type II diabetes mellitus (HCC)- Primary Type II or unspecified type diabetes mellitus without mention of complication, not stated as uncontrolled [facility]* Diagnosis Type 2 diabetes mellitus without complication, with long-term current use of insulin (HCC)- Primary [facility]* Diagnosis Depression, unspecified depression type DDD (degenerative disc disease), lumbar Degeneration of lumbar or lumbosacral intervertebral disc [facility]* Diagnosis Type 2 diabetes mellitus without complication, with long-term current use of insulin (HCC) [facility] Diagnosis Chronic obstructive pulmonary disease, unspecified COPD type (HCC)- Primary Lung nodules Other nonspecific abnormal finding of lung field Cigarette smoker Tobacco use disorder Morbid obesity (HCC) Morbid obesity [facility]* Diagnosis Type 2 diabetes mellitus without complication, with long-term current use of insulin (HCC) [facility]* Diagnosis Anxiety Anxiety state, unspecified Essential hypertension Unspecified essential hypertension [facility]* Diagnosis Type 2 diabetes mellitus without complication, with long-term current use of insulin (HCC) [facility] Diagnosis Type 2 diabetes mellitus without complication, with long-term current use of insulin (HCC) [facility] Diagnosis Essential hypertension Unspecified essential hypertension Mixed hyperlipidemia DDD (degenerative disc disease), lumbar Degeneration of lumbar or lumbosacral intervertebral disc Depression, unspecified depression type [facility]* Diagnosis Panic disorder Panic disorder without agoraphobia [facility]* Diagnosis Uncontrolled type 2 diabetes mellitus with hyperglycemia (HCC) [facility] Diagnosis Dry skin Other specified disease of sebaceous glands [facility]* Diagnosis Kidney stone Calculus of kidney [facility] Diagnosis DDD (degenerative disc disease), lumbar Degeneration of lumbar or lumbosacral intervertebral disc [facility] Diagnosis Anxiety Anxiety state, unspecified Essential hypertension Unspecified essential hypertension [facility] Diagnosis Essential hypertension Unspecified essential hypertension Mixed hyperlipidemia Anxiety Anxiety state, unspecified DDD (degenerative disc disease), lumbar Degeneration of lumbar or lumbosacral intervertebral disc Type 2 diabetes mellitus without complication, with long-term current use of insulin (HCC) Panic disorder Panic disorder without agoraphobia [facility]* Diagnosis Essential (primary) hypertension Unspecified essential hypertension Proteinuria, unspecified [facility] Diagnosis Anxiety Anxiety state, unspecified Essential hypertension Unspecified essential hypertension DDD (degenerative disc disease), lumbar Degeneration of lumbar or lumbosacral intervertebral disc Depression, unspecified depression type Panic disorder Panic disorder without agoraphobia [facility]* Diagnosis Type 2 diabetes mellitus without complication, with long-term current use of insulin (HCC) [facility] Diagnosis Type 2 diabetes mellitus without complication, with long-term current use of insulin (HCC) [facility]* Diagnosis Essential hypertension Unspecified essential hypertension Mixed hyperlipidemia Type 2 diabetes mellitus without complication, with long-term current use of insulin (HCC) Anxiety Anxiety state, unspecified DDD (degenerative disc disease), lumbar Degeneration of lumbar or lumbosacral intervertebral disc Panic disorder Panic disorder without agoraphobia [facility] Diagnosis Dry skin Other specified disease of sebaceous glands [facility]* Diagnosis Chronic obstructive pulmonary disease, unspecified COPD type (HCC) [facility] Diagnosis Chronic obstructive pulmonary disease, unspecified COPD type (HCC) [facility] Diagnosis Chronic obstructive pulmonary disease, unspecified COPD type (HCC)- Primary Lung nodules Other nonspecific abnormal finding of lung field Obstructive sleep apnea syndrome Obstructive sleep apnea (adult) (pediatric) Cigarette smoker Tobacco use disorder Morbid obesity (HCC) Morbid obesity [facility] Diagnosis Encounter for gynecological examination without abnormal finding- Primary Routine gynecological examination Essential hypertension Unspecified essential hypertension Type 2 diabetes mellitus without complication, with long-term current use of insulin (HCC) Anxiety Anxiety state, unspecified Hypertension, essential Unspecified essential hypertension Mixed hyperlipidemia Gastroesophageal reflux disease, unspecified whether esophagitis present Venous insufficiency Unspecified venous (peripheral) insufficiency Encounter for immunization Need for other specified prophylactic vaccination against single bacterial disease Visit for screening mammogram Other screening mammogram Chronic obstructive pulmonary disease, unspecified COPD type (HCC) [facility] Diagnosis DDD (degenerative disc disease), lumbar Degeneration of lumbar or lumbosacral intervertebral disc Panic disorder Panic disorder without agoraphobia [facility] Diagnosis DDD (degenerative disc disease), lumbar Degeneration of lumbar or lumbosacral intervertebral disc Essential hypertension Unspecified essential hypertension Anxiety Anxiety state, unspecified Type 2 diabetes mellitus without complication, with long-term current use of insulin (HCC) Mixed hyperlipidemia [facility] Diagnosis Type 2 diabetes mellitus without complication, with long-term current use of insulin (HCC) [facility] Diagnosis Type 2 diabetes mellitus without complication, with long-term current use of insulin (HCC) [facility] Diagnosis Type 2 diabetes mellitus without complication, with long-term current use of insulin (HCC) [facility] Diagnosis Lung nodules Other nonspecific abnormal finding of lung field [facility] Diagnosis Essential hypertension- Primary Unspecified essential hypertension Type 2 diabetes mellitus without complication, with long-term current use of insulin (HCC) Generalized anxiety disorder Major depressive disorder, recurrent, in partial remission Major depressive disorder, recurrent episode, in partial or unspecified remission Encounter for immunization Need for other specified prophylactic vaccination against single bacterial disease documented in this encounter [facility] note* Diagnosis Essential hypertension Unspecified essential hypertension Mixed hyperlipidemia Anxiety Anxiety state, unspecified DDD (degenerative disc disease), lumbar Degeneration of lumbar or lumbosacral intervertebral disc Type 2 diabetes mellitus without complication, with long-term current use of insulin (HCC) [facility] Diagnosis Venous insufficiency- Primary Unspecified venous (peripheral) insufficiency documented in this encounter [facility] note* Diagnosis Essential hypertension Unspecified essential hypertension DDD (degenerative disc disease), lumbar Degeneration of lumbar or lumbosacral intervertebral disc [facility]* Diagnosis Mixed hyperlipidemia Anxiety Anxiety state, unspecified Type 2 diabetes mellitus without complication, with long-term current use of insulin (HCC) Essential hypertension Unspecified essential hypertension DDD (degenerative disc disease), lumbar Degeneration of lumbar or lumbosacral intervertebral disc Panic disorder Panic disorder without agoraphobia Depression, unspecified depression type documented in this encounter [facility] for referral (narrative)* Diagnostic Procedure Only (Routine) - Pending Review Specialty Diagnoses / Procedures Referred By Di hardy Referred To Contact BR IMAGING Diagnoses Encounter for screening mammogram for breast cancer Procedures SHAHRAM SCREENING SCREENING MAMMOGRAPHY BI 2-VIEW BREAST INC CAD Jovany Rizzo PA-C [address] [place] [address] Br Imaging [address] [place] [id number] Referral ID Status Reason Start Date Expiration Date Visits Requested Visits Authorized [id number] Pending Review Auto-Generat ed Referral 08/05/2021 09/04/[address] [facility] for referral (narrative)* Diagnostic Procedure Only (Routine) - Pending Review Specialty Diagnoses / Procedures Referred By Di hardy Referred To Contact BR IMAGING Diagnoses Encounter for screening mammogram for breast cancer Procedures SHAHRAM SCREENING SCREENING MAMMOGRAPHY BI 2-VIEW BREAST INC Jovany Bear PA-C [address] [place] [address] Br Imaging [address] [place] [address] Referral ID Status Reason Start Date Expiration Date Visits Requested Visits Authorized [id number] Pending Review Auto-Generat ed Referral 07/07/2022 08/06/[address] [facility] for referral (narrative)* Diagnostic Procedure Only (Routine) - Closed Specialty Diagnoses / Procedures Referred By Arianaac t Referred To Contact US IMAGING Diagnoses Thyroid nodule Procedures US THYROID/PARATHYROID US SOFT TISSUE HEAD & NECK REAL TIME IMGE Jovany Saunders PA-C [address] [place] [address] Us Imaging [facility] Referral ID Status Reason Start Date Expiration Date V isits Requested Visits Authorized [id number] Closed Auto-Generate d Referral 05/19/2022 06/18/[address] [facility] for referral (narrative)* Diagnostic Procedure Only (Routine) - Authorized Specialty Diagnoses / Procedures Referred By Di hardy Referred To Contact BR IMAGING Diagnoses Encounter for screening mammogram for malignant neoplasm of breast Procedures SHAHRAM SCREENING SCREENING MAMMOGRAPHY BI 2-VIEW BREAST INC Jovany Bear PA-C [address] [place] [address] Br Imaging [address] [place] [address] Referral ID Status Reason Start Date Expiration Date Visits Requested Visits Authorized [id number] Authorized Auto-Generat ed Referral 06/09/2023 07/08/2024 1 1 * Consult, Test, Treat (Routine) - Authorized Specialty Diagnoses / Procedures Referred By Contac t Referred To Contact Gynecology Diagnoses Screening for cervical cancer Procedures CONSULT TO GYNECOLOGY OFFICE/OUTPATIENT NEW HIGH MDM 60 MINUTES Jovany Rizzo PA-C [address] [place] [address] Referral ID Status Reason Start Date Expiration Date Visits Requested Visits Authorized [id number] Authorized PCP Requested Referral Auto-Generate d Referral 06/09/2023 06/08/2024 1 1 * Medication Prior Authorization - Authorized Specialty Diagnoses / Procedures Referred By Contac t Referred To Contact Diagnoses Type 2 diabetes mellitus without complication, with long-term current use of insulin ([facility]) Jovany Rizzo PA-C [address] [place] [address] Referral ID Status Reason Start Date Expiration Date V isits Requested Visits Authorized [id number] Authorized 06/09/2023 06/07/2024 1 1 * Medication Prior Authorization - Closed Specialty Diagnoses / Procedures Referred By Contac t Referred To Contact Diagnoses Type 2 diabetes mellitus without complication, with long-term current use of insulin (HCC) Jovany Rizzo PA-C [address] [place] [address] Referral ID Status Reason Start Date Expiration Date Visits Re quested Visits Authorized [id number] Closed 1 1 * Consult, Test, Treat (Routine) - Authorized Specialty Diagnoses / Procedures Referred By Contac t Referred To Contact Ophthalmology Diagnoses Screening for diabetic retinopathy Procedures CONSULT TO OPHTHALMOLOGY OFFICE/OUTPATIENT [facility] 60 MINUTES Jovany Rizzo PA-C [address] [place] [address] Referral ID Status Reason Start Date Expiration Date Visits Requested Visits Authorized [id number] Authorized PCP Requested Referral 06/09/2023 06/08/[address] [facility] for referral (narrative)* Outpatient Procedure (Routine) - Authorized Specialty Diagnoses / Procedures Referred By Contac t Referred To Contact [facility] Diagnoses Chronic obstructive pulmonary disease, unspecified COPD type (HCC) Procedures OXIMETRY WITH AMBULATION NONINVASIVE EAR/PULSE OXIMETRY Pilar Alamo PA-C [address] [place] [address] [place] [address] Referral ID Status Reason Start Date Expiration Date Visits Requested Visits Authorized [id number] Authorized Auto-Generat ed Referral 08/11/2023 09/09/2024 1 1 * Outpatient Procedure (Routine) - Authorized Specialty Diagnoses / Procedures Referred By Contac t Referred To Contact [facility] Diagnoses Chronic obstructive pulmonary disease, unspecified COPD type (HCC) Procedures SPIROMETRY BASELINE ONLY SPMTRY W/VC EXPIRATORY KYLE W/WO MXML VOL VNTJ Pilar Cardoza PA-C [address] [place] [address] [place] [address] Referral ID Status Reason Start Date Expiration Date Visits Requested Visits Authorized [id number] Authorized Auto-Generat ed Referral 08/11/2023 09/09/[address] [facility] for visit Narrative* MRI/CT (Routine) - Closed Specialty Diagnoses / Procedures Referred By Contac t Referred To Contact CT IMAGING Diagnoses Lung nodules Procedures CT CHEST WO IVCON DIAGNOSTIC COMPUTED TOMOGRAPHY THORAX W/O CNTRST Pilar Cardoza PA-C [address] [place] [address] Phone: tel: fax: CT IMAGING [facility] Referral ID Status Reason Start Date Expiration Date V isits Requested Visits Authorized [id number] Closed Auto-Generate d Referral 06/01/2024 07/31/2024 1 1 [facility] Summary Purpose Family History Relationship Condition Age at Onset Recorded Date/T khoa aunt Diabetes mellitus Unknown father Cardiac disease Unknown sister Cardiac disease Unknown grandfather Malignant neoplasm of colon Unknown Not Specified Malignant neoplasm of breast Unknown Advance Directives Documents on File Type Date Recorded 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 Advance Directive(s) Advance Directive(s) 03/21/2015 4:30 PM Documents on File Type Date Recorded 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 Advance Directive(s) Advance Directive(s) 03/21/2015 4:30 PM Advance Directive Response Recorded Date/ Time Living Will No February 25 3:32pm Power of Billet Heater Operator No February 25, 2023 3:32pm Advance Directive Response Recorded Date/ Time Living Will No February 25 9:00pm Power of Billet Heater Operator No February 25, 2023 9:00pm Reason for Referral Specialty Diagnoses / Procedures Referred By Di hardy Referred To Contact Cardiology Diagnoses SOB (shortness of breath) Procedures CONSULT TO CARDIOLOGY OFFICE/OUTPATIENT NEW [facility] 60-[place] [address] [place] [address] Referral ID Status Reason Start Date Expiration Date Visits Requested Visits Authorized [id number] Authorized PCP Requested Referral 06/01/2021 06/01/2022 1 1 Specialty Diagnoses / Procedures Referred By Di hardy Referred To Contact MR IMAGING Diagnoses Liver mass Procedures MRI LIVER WO/W IVCON MRI ABDOMEN W/O & W/CONTRAST MATERIAL Pat Todd MD [address] [place] [address] Mr Imaging Referral ID Status Reason Start Date Expiration Date Visits Requested Visits Authorized [id number] Pending Review Auto-Generat ed Referral 06/10/2021 07/10/2022 1 1 Specialty Diagnoses / Procedures Referred By Di hardy Referred To Contact Nutrition Diagnoses Type 2 diabetes mellitus without complication, with long-term current use of insulin (HCC) Procedures CONSULT TO NUTRITION THERAPY OFFICE/OUTPATIENT [facility] MDM 60-[place] [address] [place] [address] Referral ID Status Reason Start Date Expiration Date Visits Requested Visits Authorized [id number] Authorized PCP Requested Referral 06/02/2021 06/02/2022 1 1 Specialty Diagnoses / Procedures Referred By Contac t Referred To Contact Gynecology Diagnoses Low libido Screening for cervical cancer Procedures CONSULT TO GYNECOLOGY OFFICE/OUTPATIENT NEW HIGH MDM 60-74 MINUTES Jovany Rizzo PA-C [address] [place] [address] Referral ID Status Reason Start Date Expiration Date Visits Requested Visits Authorized [id number] Authorized PCP Requested Referral Auto-Generate d Referral 09/24/2021 09/24/2022 1 1 Specialty Diagnoses / Procedures Referred By Contac t Referred To Contact Ophthalmology Diagnoses Type 2 diabetes mellitus without complication, with long-term current use of insulin (HCC) Procedures CONSULT TO OPHTHALMOLOGY OFFICE/OUTPATIENT [facility] MDM 60-74 MINUTES Jovany Rizzo PA-C [address] [place] [address] Referral ID Status Reason Start Date Expiration Date Visits Requested Visits Authorized [id number] Authorized PCP Requested Referral 09/24/2021 09/24/2022 1 1 Specialty Diagnoses / Procedures Referred By Di t Referred To Contact Diagnoses Type 2 diabetes mellitus without complication, with long-term current use of insulin (HCC) Jovany Rizzo PA-C [address] [place] [address] Referral ID Status Reason Start Date Expiration Date Visits Re quested Visits Authorized [id number] Closed 1 1 Referral ID Status Reason Start Date Expiration Date Visits Re quested Visits Authorized [id number] Closed 1 1 Referral ID Status Reason Start Date Expiration Date Visits Re quested Visits Authorized [id number] Closed 1 1 Referral ID Status Reason Start Date Expiration Date Visits Re quested Visits Authorized [id number] Closed 1 1 Specialty Diagnoses / Procedures Referred By Contac t Referred To Contact Nephrology Diagnoses Albuminuria Type 2 diabetes mellitus with other specified complication, with long-term current use of insulin (HCC) Procedures CONSULT TO NEPHROLOGY OFFICE/OUTPATIENT NEW HIGH MDM 60-74 MINUTES Jovany Rizzo PA-C [address] [place] [address] Referral ID Status Reason Start Date Expiration Date Visits Requested Visits Authorized [id number] Authorized PCP Requested Referral 10/25/2021 10/25/2022 1 1 Specialty Diagnoses / Procedures Referred By Contac t Referred To Contact Diagnoses Type 2 diabetes mellitus without complication, with long-term current use of insulin (HCC) Pat Todd MD [address] [place] [address] Referral ID Status Reason Start Date Expiration Date Visits Re quested Visits Authorized [id number] Closed 1 1 Referral ID Status Reason Start Date Expiration Date Visits Re quested Visits Authorized [id number] Closed 1 1 Specialty Diagnoses / Procedures Referred By Contac t Referred To Contact CT IMAGING Diagnoses Lung nodules Ground glass opacity present on imaging of lung Procedures CT CHEST WO IVCON DIAGNOSTIC COMPUTED TOMOGRAPHY THORAX W/O Patti Goss MD [address] [facility] [address] Ct Imaging Referral ID Status Reason Start Date Expiration Date Visits Requested Visits Authorized [id number] Pending Review Auto-Generat ed Referral 05/18/2023 06/16/2023 1 1 Referral ID Status Reason Start Date Expiration Date Visits Re quested Visits Authorized [id number] Closed 1 1 Specialty Diagnoses / Procedures Referred By Contac t Referred To Contact Endocrinology Diagnoses Type 2 diabetes mellitus without complication, with long-term current use of insulin (HCC) Procedures CONSULT TO ENDOCRINOLOGY OFFICE/OUTPATIENT [facility] 60-74 MINUTES Pat Todd MD [address] [place] [address] Referral ID Status Reason Start Date Expiration Date Visits Requested Visits Authorized [id number] Authorized PCP Requested Referral 07/21/2022 07/21/2023 1 1 Referral ID Status Reason Start Date Expiration Date Visits Re quested Visits Authorized [id number] Closed 1 1 Referral ID Status Reason Start Date Expiration Date Visits Re quested Visits Authorized [id number] Closed 1 1 Specialty Diagnoses / Procedures Referred By Contac t Referred To Contact General Surgery Diagnoses Thyroid nodule greater than or equal to 1 cm in diameter incidentally noted on imaging study Procedures CONSULT TO GENERAL SURGERY OFFICE/OUTPATIENT [facility] MDM 60-74 MINUTES Jovany Rizzo PA-C [address] [place] [address] Referral ID Status Reason Start Date Expiration Date Visits Requested Visits Authorized [id number] Authorized PCP Requested Referral 3 11/27/2023 1 1 Specialty Diagnoses / Procedures Referred By Contac t Referred To Contact CT IMAGING Diagnoses Lung nodules Cigarette smoker History of renal cell cancer Procedures CT CHEST WO IVCON DIAGNOSTIC COMPUTED TOMOGRAPHY THORAX W/O Patti Goss MD [address] [place] [address] [place] [address] Referral ID Status Reason Start Date Expiration Date V isits Requested Visits Authorized [id number] Closed Auto-Generate d Referral 03/16/2022 05/15/2022 1 1 Referral ID Status Reason Start Date Expiration Date Visits Re quested Visits Authorized [id number] Closed 1 1 Specialty Diagnoses / Procedures Referred By Contac t Referred To Contact CT IMAGING Diagnoses Lung nodules Ground glass opacity present on imaging of lung Procedures CT CHEST WO IVCON DIAGNOSTIC COMPUTED TOMOGRAPHY THORAX W/O Patti Goss MD [address] [facility] [place] [address] [place] [address] Referral ID Status Reason Start Date Expiration Date Visits Requested Visits Authorized [id number] Pending Review Auto-Generat ed Referral 05/18/2023 06/16/2024 1 1 Referral ID Status Reason Start Date Expiration Date Visits Re quested Visits Authorized [id number] Closed 1 1 Specialty Diagnoses / Procedures Referred By Contac t Referred To Contact Nephrology Diagnoses Diabetic nephrosis (HCC) Procedures CONSULT TO NEPHROLOGY OFFICE/OUTPATIENT [facility] MDM 60 MINUTES Jovany Rizzo PA-C [address] [place] [address] Referral ID Status Reason Start Date Expiration Date Visits Requested Visits Authorized [id number] Authorized PCP Requested Referral 06/17/2023 06/13/2024 1 1 Referral ID Status Reason Start Date Expiration Date Visits Re quested Visits Authorized [id number] Closed 1 1 Referral ID Status Reason Start Date Expiration Date V isits Requested Visits Authorized [id number] Pending Review 1 1 Referral ID Status Reason Start Date Expiration Date Visits Re quested Visits Authorized [id number] Closed 1 1 Referral ID Status Reason Start Date Expiration Date Visits Re quested Visits Authorized [id number] Closed 1 1 Chief Complaint and Reason for Visit Chief Complaint COPD ACUTE ON CHRONIC HYPOXIA, COPD EXACERBATION Reason for Visit Hypoxia Tobacco abuse COPD with acute exacerbation Chief Complaint COPD ACUTE ON CHRONIC HYPOXIA, COPD EXACERBATION ACUTE ON CHRONIC HYPOXIA, COPD EXACERBATION ACUTE ON CHRONIC HYPOXIA, COPD EXACERBATION Reason for Visit Hypoxia Tobacco abuse COPD with acute exacerbation Additional Source Comments INFORMATION SOURCE (unrecogn ized section and content) DATE CREATED AUTHOR 01/19/2021 [facility] DATE CREATED AUTHOR AUTHOR'S ORGANIZ ATION 09/18/2023 [facility] DATE CREATED AUTHOR AUTHOR'S ORGANIZ ATION 09/22/2024 [facility] Source Comments (unrecognize d section and content) In the event this informatio n is protected by the Federal Confidentiality of Alcohol and Drug Abuse Patient Records regulations: The Federal rules restrict any use of the information to criminally investigate or prosecute any alcohol or drug abuse patient.[facility] the event this information is protected by the Federal Confidentiality of Alcohol and Drug Abuse Patient Records regulations: The Federal rules restrict any use of the information to criminally investigate or prosecute any alcohol or drug abuse patient.[facility] the event this information is protected by the Federal Confidentiality of Alcohol and Drug Abuse Patient Records regulations: The Federal rules restrict any use of the information to criminally investigate or prosecute any alcohol or drug abuse patient.[facility] the event this information is protected by the Federal Confidentiality of Alcohol and Drug Abuse Patient Records regulations: The Federal rules restrict any use of the information to criminally investigate or prosecute any alcohol or drug abuse patient.[facility] the event this information is protected by the Federal Confidentiality of Alcohol and Drug Abuse Patient Records regulations: The Federal rules restrict any use of the information to criminally investigate or prosecute any alcohol or drug abuse patient.[facility] the event this information is protected by the Federal Confidentiality of Alcohol and Drug Abuse Patient Records regulations: The Federal rules restrict any use of the information to criminally investigate or prosecute any alcohol or drug abuse patient.[facility] the event this information is protected by the Federal Confidentiality of Alcohol and Drug Abuse Patient Records regulations: The Federal rules restrict any use of the information to criminally investigate or prosecute any alcohol or drug abuse patient.[facility] the event this information is protected by the Federal Confidentiality of Alcohol and Drug Abuse Patient Records regulations: The Federal rules restrict any use of the information to criminally investigate or prosecute any alcohol or drug abuse patient.[facility] the event this information is protected by the Federal Confidentiality of Alcohol and Drug Abuse Patient Records regulations: The Federal rules restrict any use of the information to criminally investigate or prosecute any alcohol or drug abuse patient.[facility] the event this information is protected by the Federal Confidentiality of Alcohol and Drug Abuse Patient Records regulations: The Federal rules restrict any use of the information to criminally investigate or prosecute any alcohol or drug abuse patient.[facility] the event this information is protected by the Federal Confidentiality of Alcohol and Drug Abuse Patient Records regulations: The Federal rules restrict any use of the information to criminally investigate or prosecute any alcohol or drug abuse patient.[facility] the event this information is protected by the Federal Confidentiality of Alcohol and Drug Abuse Patient Records regulations: The Federal rules restrict any use of the information to criminally investigate or prosecute any alcohol or drug abuse patient.[facility] the event this information is protected by the Federal Confidentiality of Alcohol and Drug Abuse Patient Records regulations: The Federal rules restrict any use of the information to criminally investigate or prosecute any alcohol or drug abuse patient.[facility] the event this information is protected by the Federal Confidentiality of Alcohol and Drug Abuse Patient Records regulations: The Federal rules restrict any use of the information to criminally investigate or prosecute any alcohol or drug abuse patient.[facility] the event this information is protected by the Federal Confidentiality of Alcohol and Drug Abuse Patient Records regulations: The Federal rules restrict any use of the information to criminally investigate or prosecute any alcohol or drug abuse patient.[facility] the event this information is protected by the Federal Confidentiality of Alcohol and Drug Abuse Patient Records regulations: The Federal rules restrict any use of the information to criminally investigate or prosecute any alcohol or drug abuse patient.[facility] the event this information is protected by the Federal Confidentiality of Alcohol and Drug Abuse Patient Records regulations: The Federal rules restrict any use of the information to criminally investigate or prosecute any alcohol or drug abuse patient.[facility] the event this information is protected by the Federal Confidentiality of Alcohol and Drug Abuse Patient Records regulations: The Federal rules restrict any use of the information to criminally investigate or prosecute any alcohol or drug abuse patient.[facility] the event this information is protected by the Federal Confidentiality of Alcohol and Drug Abuse Patient Records regulations: The Federal rules restrict any use of the information to criminally investigate or prosecute any alcohol or drug abuse patient.[facility] the event this information is protected by the Federal Confidentiality of Alcohol and Drug Abuse Patient Records regulations: The Federal rules restrict any use of the information to criminally investigate or prosecute any alcohol or drug abuse patient.[facility] the event this information is protected by the Federal Confidentiality of Alcohol and Drug Abuse Patient Records regulations: The Federal rules restrict any use of the information to criminally investigate or prosecute any alcohol or drug abuse patient.[facility] CenterIn the event this information is protected by the Federal Confidentiality of Alcohol and Drug Abuse Patient Records regulations: The Federal rules restrict any use of the information to criminally investigate or prosecute any alcohol or drug abuse patient.[facility] CenterIn the event this information is protected by the Federal Confidentiality of Alcohol and Drug Abuse Patient Records regulations: The Federal rules restrict any use of the information to criminally investigate or prosecute any alcohol or drug abuse patient.[facility] CenterIn the event this information is protected by the Federal Confidentiality of Alcohol and Drug Abuse Patient Records regulations: The Federal rules restrict any use of the information to criminally investigate or prosecute any alcohol or drug abuse patient.[facility] CenterIn the event this information is protected by the Federal Confidentiality of Alcohol and Drug Abuse Patient Records regulations: The Federal rules restrict any use of the information to criminally investigate or prosecute any alcohol or drug abuse patient.[facility] CenterIn the event this information is protected by the Federal Confidentiality of Alcohol and Drug Abuse Patient Records regulations: The Federal rules restrict any use of the information to criminally investigate or prosecute any alcohol or drug abuse patient.[facility] CenterIn the event this information is protected by the Federal Confidentiality of Alcohol and Drug Abuse Patient Records regulations: The Federal rules restrict any use of the information to criminally investigate or prosecute any alcohol or drug abuse patient.[facility] CenterIn the event this information is protected by the Federal Confidentiality of Alcohol and Drug Abuse Patient Records regulations: The Federal rules restrict any use of the information to criminally investigate or prosecute any alcohol or drug abuse patient.[facility] CenterIn the event this information is protected by the Federal Confidentiality of Alcohol and Drug Abuse Patient Records regulations: The Federal rules restrict any use of the information to criminally investigate or prosecute any alcohol or drug abuse patient.[facility] CenterIn the event this information is protected by the Federal Confidentiality of Alcohol and Drug Abuse Patient Records regulations: The Federal rules restrict any use of the information to criminally investigate or prosecute any alcohol or drug abuse patient.[facility] CenterIn the event this information is protected by the Federal Confidentiality of Alcohol and Drug Abuse Patient Records regulations: The Federal rules restrict any use of the information to criminally investigate or prosecute any alcohol or drug abuse patient.[facility] CenterIn the event this information is protected by the Federal Confidentiality of Alcohol and Drug Abuse Patient Records regulations: The Federal rules restrict any use of the information to criminally investigate or prosecute any alcohol or drug abuse patient.[facility] CenterIn the event this information is protected by the Federal Confidentiality of Alcohol and Drug Abuse Patient Records regulations: The Federal rules restrict any use of the information to criminally investigate or prosecute any alcohol or drug abuse patient.[facility] CenterIn the event this information is protected by the Federal Confidentiality of Alcohol and Drug Abuse Patient Records regulations: The Federal rules restrict any use of the information to criminally investigate or prosecute any alcohol or drug abuse patient.[facility] CenterIn the event this information is protected by the Federal Confidentiality of Alcohol and Drug Abuse Patient Records regulations: The Federal rules restrict any use of the information to criminally investigate or prosecute any alcohol or drug abuse patient.[facility] CenterIn the event this information is protected by the Federal Confidentiality of Alcohol and Drug Abuse Patient Records regulations: The Federal rules restrict any use of the information to criminally investigate or prosecute any alcohol or drug abuse patient.[facility] CenterIn the event this information is protected by the Federal Confidentiality of Alcohol and Drug Abuse Patient Records regulations: The Federal rules restrict any use of the information to criminally investigate or prosecute any alcohol or drug abuse patient.[facility] CenterIn the event this information is protected by the Federal Confidentiality of Alcohol and Drug Abuse Patient Records regulations: The Federal rules restrict any use of the information to criminally investigate or prosecute any alcohol or drug abuse patient.[facility] CenterIn the event this information is protected by the Federal Confidentiality of Alcohol and Drug Abuse Patient Records regulations: The Federal rules restrict any use of the information to criminally investigate or prosecute any alcohol or drug abuse patient.[facility] CenterIn the event this information is protected by the Federal Confidentiality of Alcohol and Drug Abuse Patient Records regulations: The Federal rules restrict any use of the information to criminally investigate or prosecute any alcohol or drug abuse patient.[facility] CenterIn the event this information is protected by the Federal Confidentiality of Alcohol and Drug Abuse Patient Records regulations: The Federal rules restrict any use of the information to criminally investigate or prosecute any alcohol or drug abuse patient.[facility] CenterIn the event this information is protected by the Federal Confidentiality of Alcohol and Drug Abuse Patient Records regulations: The Federal rules restrict any use of the information to criminally investigate or prosecute any alcohol or drug abuse patient.[facility] CenterIn the event this information is protected by the Federal Confidentiality of Alcohol and Drug Abuse Patient Records regulations: The Federal rules restrict any use of the information to criminally investigate or prosecute any alcohol or drug abuse patient.[facility] CenterIn the event this information is protected by the Federal Confidentiality of Alcohol and Drug Abuse Patient Records regulations: The Federal rules restrict any use of the information to criminally investigate or prosecute any alcohol or drug abuse patient.[facility] CenterIn the event this information is protected by the Federal Confidentiality of Alcohol and Drug Abuse Patient Records regulations: The Federal rules restrict any use of the information to criminally investigate or prosecute any alcohol or drug abuse patient.[facility] CenterIn the event this information is protected by the Federal Confidentiality of Alcohol and Drug Abuse Patient Records regulations: The Federal rules restrict any use of the information to criminally investigate or prosecute any alcohol or drug abuse patient.[facility] CenterIn the event this information is protected by the Federal Confidentiality of Alcohol and Drug Abuse Patient Records regulations: The Federal rules restrict any use of the information to criminally investigate or prosecute any alcohol or drug abuse patient.[facility] CenterIn the event this information is protected by the Federal Confidentiality of Alcohol and Drug Abuse Patient Records regulations: The Federal rules restrict any use of the information to criminally investigate or prosecute any alcohol or drug abuse patient.[facility] CenterIn the event this information is protected by the Federal Confidentiality of Alcohol and Drug Abuse Patient Records regulations: The Federal rules restrict any use of the information to criminally investigate or prosecute any alcohol or drug abuse patient.[facility] CenterIn the event this information is protected by the Federal Confidentiality of Alcohol and Drug Abuse Patient Records regulations: The Federal rules restrict any use of the information to criminally investigate or prosecute any alcohol or drug abuse patient.[facility] CenterIn the event this information is protected by the Federal Confidentiality of Alcohol and Drug Abuse Patient Records regulations: The Federal rules restrict any use of the information to criminally investigate or prosecute any alcohol or drug abuse patient.[facility] CenterIn the event this information is protected by the Federal Confidentiality of Alcohol and Drug Abuse Patient Records regulations: The Federal rules restrict any use of the information to criminally investigate or prosecute any alcohol or drug abuse patient.[facility] CenterIn the event this information is protected by the Federal Confidentiality of Alcohol and Drug Abuse Patient Records regulations: The Federal rules restrict any use of the information to criminally investigate or prosecute any alcohol or drug abuse patient.[facility] CenterIn the event this information is protected by the Federal Confidentiality of Alcohol and Drug Abuse Patient Records regulations: The Federal rules restrict any use of the information to criminally investigate or prosecute any alcohol or drug abuse patient.[facility] CenterIn the event this information is protected by the Federal Confidentiality of Alcohol and Drug Abuse Patient Records regulations: The Federal rules restrict any use of the information to criminally investigate or prosecute any alcohol or drug abuse patient.[facility] CenterIn the event this information is protected by the Federal Confidentiality of Alcohol and Drug Abuse Patient Records regulations: The Federal rules restrict any use of the information to criminally investigate or prosecute any alcohol or drug abuse patient.[facility] CenterIn the event this information is protected by the Federal Confidentiality of Alcohol and Drug Abuse Patient Records regulations: The Federal rules restrict any use of the information to criminally investigate or prosecute any alcohol or drug abuse patient.[facility] CenterIn the event this information is protected by the Federal Confidentiality of Alcohol and Drug Abuse Patient Records regulations: The Federal rules restrict any use of the information to criminally investigate or prosecute any alcohol or drug abuse patient.[facility] CenterIn the event this information is protected by the Federal Confidentiality of Alcohol and Drug Abuse Patient Records regulations: The Federal rules restrict any use of the information to criminally investigate or prosecute any alcohol or drug abuse patient.[facility] CenterIn the event this information is protected by the Federal Confidentiality of Alcohol and Drug Abuse Patient Records regulations: The Federal rules restrict any use of the information to criminally investigate or prosecute any alcohol or drug abuse patient.[facility] CenterIn the event this information is protected by the Federal Confidentiality of Alcohol and Drug Abuse Patient Records regulations: The Federal rules restrict any use of the information to criminally investigate or prosecute any alcohol or drug abuse patient.[facility] CenterIn the event this information is protected by the Federal Confidentiality of Alcohol and Drug Abuse Patient Records regulations: The Federal rules restrict any use of the information to criminally investigate or prosecute any alcohol or drug abuse patient.[facility]In the event this information is protected by the Federal Confidentiality of Alcohol and Drug Abuse Patient Records regulations: The Federal rules restrict any use of the information to criminally investigate or prosecute any alcohol or drug abuse patient.[facility]In the event this information is protected by the Federal Confidentiality of Alcohol and Drug Abuse Patient Records regulations: The Federal rules restrict any use of the information to criminally investigate or prosecute any alcohol or drug abuse patient.[facility] CenterIn the event this information is protected by the Federal Confidentiality of Alcohol and Drug Abuse Patient Records regulations: The Federal rules restrict any use of the information to criminally investigate or prosecute any alcohol or drug abuse patient.[facility] CenterIn the event this information is protected by the Federal Confidentiality of Alcohol and Drug Abuse Patient Records regulations: The Federal rules restrict any use of the information to criminally investigate or prosecute any alcohol or drug abuse patient.[facility] CenterIn the event this information is protected by the Federal Confidentiality of Alcohol and Drug Abuse Patient Records regulations: The Federal rules restrict any use of the information to criminally investigate or prosecute any alcohol or drug abuse patient.[facility] CenterIn the event this information is protected by the Federal Confidentiality of Alcohol and Drug Abuse Patient Records regulations: The Federal rules restrict any use of the information to criminally investigate or prosecute any alcohol or drug abuse patient.[facility] CenterIn the event this information is protected by the Federal Confidentiality of Alcohol and Drug Abuse Patient Records regulations: The Federal rules restrict any use of the information to criminally investigate or prosecute any alcohol or drug abuse patient.[facility]In the event this information is protected by the Federal Confidentiality of Alcohol and Drug Abuse Patient Records regulations: The Federal rules restrict any use of the information to criminally investigate or prosecute any alcohol or drug abuse patient.[facility]In the event this information is protected by the Federal Confidentiality of Alcohol and Drug Abuse Patient Records regulations: The Federal rules restrict any use of the information to criminally investigate or prosecute any alcohol or drug abuse patient.[facility] CenterIn the event this information is protected by the Federal Confidentiality of Alcohol and Drug Abuse Patient Records regulations: The Federal rules restrict any use of the information to criminally investigate or prosecute any alcohol or drug abuse patient.[facility]In the event this information is protected by the Federal Confidentiality of Alcohol and Drug Abuse Patient Records regulations: The Federal rules restrict any use of the information to criminally investigate or prosecute any alcohol or drug abuse patient.[facility]In the event this information is protected by the Federal Confidentiality of Alcohol and Drug Abuse Patient Records regulations: The Federal rules restrict any use of the information to criminally investigate or prosecute any alcohol or drug abuse patient.[facility]In the event this information is protected by the Federal Confidentiality of Alcohol and Drug Abuse Patient Records regulations: The Federal rules restrict any use of the information to criminally investigate or prosecute any alcohol or drug abuse patient.[facility]In the event this information is protected by the Federal Confidentiality of Alcohol and Drug Abuse Patient Records regulations: The Federal rules restrict any use of the information to criminally investigate or prosecute any alcohol or drug abuse patient.[facility]In the event this information is protected by the Federal Confidentiality of Alcohol and Drug Abuse Patient Records regulations: The Federal rules restrict any use of the information to criminally investigate or prosecute any alcohol or drug abuse patient.[facility]In the event this information is protected by the Federal Confidentiality of Alcohol and Drug Abuse Patient Records regulations: The Federal rules restrict any use of the information to criminally investigate or prosecute any alcohol or drug abuse patient.[facility]In the event this information is protected by the Federal Confidentiality of Alcohol and Drug Abuse Patient Records regulations: The Federal rules restrict any use of the information to criminally investigate or prosecute any alcohol or drug abuse patient.[facility]In the event this information is protected by the Federal Confidentiality of Alcohol and Drug Abuse Patient Records regulations: The Federal rules restrict any use of the information to criminally investigate or prosecute any alcohol or drug abuse patient.[facility]In the event this information is protected by the Federal Confidentiality of Alcohol and Drug Abuse Patient Records regulations: The Federal rules restrict any use of the information to criminally investigate or prosecute any alcohol or drug abuse patient.[facility]In the event this information is protected by the Federal Confidentiality of Alcohol and Drug Abuse Patient Records regulations: The Federal rules restrict any use of the information to criminally investigate or prosecute any alcohol or drug abuse patient.[facility] CenterIn the event this information is protected by the Federal Confidentiality of Alcohol and Drug Abuse Patient Records regulations: The Federal rules restrict any use of the information to criminally investigate or prosecute any alcohol or drug abuse patient.[facility] CenterIn the event this information is protected by the Federal Confidentiality of Alcohol and Drug Abuse Patient Records regulations: The Federal rules restrict any use of the information to criminally investigate or prosecute any alcohol or drug abuse patient.[facility]In the event this information is protected by the Federal Confidentiality of Alcohol and Drug Abuse Patient Records regulations: The Federal rules restrict any use of the information to criminally investigate or prosecute any alcohol or drug abuse patient.[facility] CenterIn the event this information is protected by the Federal Confidentiality of Alcohol and Drug Abuse Patient Records regulations: The Federal rules restrict any use of the information to criminally investigate or prosecute any alcohol or drug abuse patient.[facility] CenterIn the event this information is protected by the Federal Confidentiality of Alcohol and Drug Abuse Patient Records regulations: The Federal rules restrict any use of the information to criminally investigate or prosecute any alcohol or drug abuse patient.[facility] CenterIn the event this information is protected by the Federal Confidentiality of Alcohol and Drug Abuse Patient Records regulations: The Federal rules restrict any use of the information to criminally investigate or prosecute any alcohol or drug abuse patient.[facility] CenterIn the event this information is protected by the Federal Confidentiality of Alcohol and Drug Abuse Patient Records regulations: The Federal rules restrict any use of the information to criminally investigate or prosecute any alcohol or drug abuse patient.[facility]In the event this information is protected by the Federal Confidentiality of Alcohol and Drug Abuse Patient Records regulations: The Federal rules restrict any use of the information to criminally investigate or prosecute any alcohol or drug abuse patient.[facility]In the event this information is protected by the Federal Confidentiality of Alcohol and Drug Abuse Patient Records regulations: The Federal rules restrict any use of the information to criminally investigate or prosecute any alcohol or drug abuse patient.[facility]In the event this information is protected by the Federal Confidentiality of Alcohol and Drug Abuse Patient Records regulations: The Federal rules restrict any use of the information to criminally investigate or prosecute any alcohol or drug abuse patient.[facility]In the event this information is protected by the Federal Confidentiality of Alcohol and Drug Abuse Patient Records regulations: The Federal rules restrict any use of the information to criminally investigate or prosecute any alcohol or drug abuse patient.[facility] CenterIn the event this information is protected by the Federal Confidentiality of Alcohol and Drug Abuse Patient Records regulations: The Federal rules restrict any use of the information to criminally investigate or prosecute any alcohol or drug abuse patient.[facility] CenterIn the event this information is protected by the Federal Confidentiality of Alcohol and Drug Abuse Patient Records regulations: The Federal rules restrict any use of the information to criminally investigate or prosecute any alcohol or drug abuse patient.[facility] CenterIn the event this information is protected by the Federal Confidentiality of Alcohol and Drug Abuse Patient Records regulations: The Federal rules restrict any use of the information to criminally investigate or prosecute any alcohol or drug abuse patient.[facility] CenterIn the event this information is protected by the Federal Confidentiality of Alcohol and Drug Abuse Patient Records regulations: The Federal rules restrict any use of the information to criminally investigate or prosecute any alcohol or drug abuse patient.[facility]In the event this information is protected by the Federal Confidentiality of Alcohol and Drug Abuse Patient Records regulations: The Federal rules restrict any use of the information to criminally investigate or prosecute any alcohol or drug abuse patient.[facility]In the event this information is protected by the Federal Confidentiality of Alcohol and Drug Abuse Patient Records regulations: The Federal rules restrict any use of the information to criminally investigate or prosecute any alcohol or drug abuse patient.[facility]In the event this information is protected by the Federal Confidentiality of Alcohol and Drug Abuse Patient Records regulations: The Federal rules restrict any use of the information to criminally investigate or prosecute any alcohol or drug abuse patient.[facility] CenterIn the event this information is protected by the Federal Confidentiality of Alcohol and Drug Abuse Patient Records regulations: The Federal rules restrict any use of the information to criminally investigate or prosecute any alcohol or drug abuse patient.[facility] CenterIn the event this information is protected by the Federal Confidentiality of Alcohol and Drug Abuse Patient Records regulations: The Federal rules restrict any use of the information to criminally investigate or prosecute any alcohol or drug abuse patient.[facility] CenterIn the event this information is protected by the Federal Confidentiality of Alcohol and Drug Abuse Patient Records regulations: The Federal rules restrict any use of the information to criminally investigate or prosecute any alcohol or drug abuse patient.[facility] CenterIn the event this information is protected by the Federal Confidentiality of Alcohol and Drug Abuse Patient Records regulations: The Federal rules restrict any use of the information to criminally investigate or prosecute any alcohol or drug abuse patient.[facility] CenterIn the event this information is protected by the Federal Confidentiality of Alcohol and Drug Abuse Patient Records regulations: The Federal rules restrict any use of the information to criminally investigate or prosecute any alcohol or drug abuse patient.[facility] CenterIn the event this information is protected by the Federal Confidentiality of Alcohol and Drug Abuse Patient Records regulations: The Federal rules restrict any use of the information to criminally investigate or prosecute any alcohol or drug abuse patient.[facility] CenterIn the event this information is protected by the Federal Confidentiality of Alcohol and Drug Abuse Patient Records regulations: The Federal rules restrict any use of the information to criminally investigate or prosecute any alcohol or drug abuse patient.[facility] CenterIn the event this information is protected by the Federal Confidentiality of Alcohol and Drug Abuse Patient Records regulations: The Federal rules restrict any use of the information to criminally investigate or prosecute any alcohol or drug abuse patient.[facility] CenterIn the event this information is protected by the Federal Confidentiality of Alcohol and Drug Abuse Patient Records regulations: The Federal rules restrict any use of the information to criminally investigate or prosecute any alcohol or drug abuse patient.[facility] CenterIn the event this information is protected by the Federal Confidentiality of Alcohol and Drug Abuse Patient Records regulations: The Federal rules restrict any use of the information to criminally investigate or prosecute any alcohol or drug abuse patient.[facility] CenterIn the event this information is protected by the Federal Confidentiality of Alcohol and Drug Abuse Patient Records regulations: The Federal rules restrict any use of the information to criminally investigate or prosecute any alcohol or drug abuse patient.[facility] CenterIn the event this information is protected by the Federal Confidentiality of Alcohol and Drug Abuse Patient Records regulations: The Federal rules restrict any use of the information to criminally investigate or prosecute any alcohol or drug abuse patient.[facility] CenterIn the event this information is protected by the Federal Confidentiality of Alcohol and Drug Abuse Patient Records regulations: The Federal rules restrict any use of the information to criminally investigate or prosecute any alcohol or drug abuse patient.[facility] CenterIn the event this information is protected by the Federal Confidentiality of Alcohol and Drug Abuse Patient Records regulations: The Federal rules restrict any use of the information to criminally investigate or prosecute any alcohol or drug abuse patient.[facility] CenterIn the event this information is protected by the Federal Confidentiality of Alcohol and Drug Abuse Patient Records regulations: The Federal rules restrict any use of the information to criminally investigate or prosecute any alcohol or drug abuse patient.[facility] CenterIn the event this information is protected by the Federal Confidentiality of Alcohol and Drug Abuse Patient Records regulations: The Federal rules restrict any use of the information to criminally investigate or prosecute any alcohol or drug abuse patient.[facility] CenterIn the event this information is protected by the Federal Confidentiality of Alcohol and Drug Abuse Patient Records regulations: The Federal rules restrict any use of the information to criminally investigate or prosecute any alcohol or drug abuse patient.[facility] CenterIn the event this information is protected by the Federal Confidentiality of Alcohol and Drug Abuse Patient Records regulations: The Federal rules restrict any use of the information to criminally investigate or prosecute any alcohol or drug abuse patient.[facility] CenterIn the event this information is protected by the Federal Confidentiality of Alcohol and Drug Abuse Patient Records regulations: The Federal rules restrict any use of the information to criminally investigate or prosecute any alcohol or drug abuse patient.[facility] CenterIn the event this information is protected by the Federal Confidentiality of Alcohol and Drug Abuse Patient Records regulations: The Federal rules restrict any use of the information to criminally investigate or prosecute any alcohol or drug abuse patient.[facility] CenterIn the event this information is protected by the Federal Confidentiality of Alcohol and Drug Abuse Patient Records regulations: The Federal rules restrict any use of the information to criminally investigate or prosecute any alcohol or drug abuse patient.[facility] CenterIn the event this information is protected by the Federal Confidentiality of Alcohol and Drug Abuse Patient Records regulations: The Federal rules restrict any use of the information to criminally investigate or prosecute any alcohol or drug abuse patient.[facility] CenterIn the event this information is protected by the Federal Confidentiality of Alcohol and Drug Abuse Patient Records regulations: The Federal rules restrict any use of the information to criminally investigate or prosecute any alcohol or drug abuse patient.[facility] CenterIn the event this information is protected by the Federal Confidentiality of Alcohol and Drug Abuse Patient Records regulations: The Federal rules restrict any use of the information to criminally investigate or prosecute any alcohol or drug abuse patient.[facility] CenterIn the event this information is protected by the Federal Confidentiality of Alcohol and Drug Abuse Patient Records regulations: The Federal rules restrict any use of the information to criminally investigate or prosecute any alcohol or drug abuse patient.[facility] CenterIn the event this information is protected by the Federal Confidentiality of Alcohol and Drug Abuse Patient Records regulations: The Federal rules restrict any use of the information to criminally investigate or prosecute any alcohol or drug abuse patient.[facility] CenterIn the event this information is protected by the Federal Confidentiality of Alcohol and Drug Abuse Patient Records regulations: The Federal rules restrict any use of the information to criminally investigate or prosecute any alcohol or drug abuse patient.[facility] CenterIn the event this information is protected by the Federal Confidentiality of Alcohol and Drug Abuse Patient Records regulations: The Federal rules restrict any use of the information to criminally investigate or prosecute any alcohol or drug abuse patient.[facility] CenterIn the event this information is protected by the Federal Confidentiality of Alcohol and Drug Abuse Patient Records regulations: The Federal rules restrict any use of the information to criminally investigate or prosecute any alcohol or drug abuse patient.[facility] CenterIn the event this information is protected by the Federal Confidentiality of Alcohol and Drug Abuse Patient Records regulations: The Federal rules restrict any use of the information to criminally investigate or prosecute any alcohol or drug abuse patient.[facility] CenterIn the event this information is protected by the Federal Confidentiality of Alcohol and Drug Abuse Patient Records regulations: The Federal rules restrict any use of the information to criminally investigate or prosecute any alcohol or drug abuse patient.[facility] CenterIn the event this information is protected by the Federal Confidentiality of Alcohol and Drug Abuse Patient Records regulations: The Federal rules restrict any use of the information to criminally investigate or prosecute any alcohol or drug abuse patient.[facility] CenterIn the event this information is protected by the Federal Confidentiality of Alcohol and Drug Abuse Patient Records regulations: The Federal rules restrict any use of the information to criminally investigate or prosecute any alcohol or drug abuse patient.[facility] CenterIn the event this information is protected by the Federal Confidentiality of Alcohol and Drug Abuse Patient Records regulations: The Federal rules restrict any use of the information to criminally investigate or prosecute any alcohol or drug abuse patient.[facility] CenterIn the event this information is protected by the Federal Confidentiality of Alcohol and Drug Abuse Patient Records regulations: The Federal rules restrict any use of the information to criminally investigate or prosecute any alcohol or drug abuse patient.[facility] CenterIn the event this information is protected by the Federal Confidentiality of Alcohol and Drug Abuse Patient Records regulations: The Federal rules restrict any use of the information to criminally investigate or prosecute any alcohol or drug abuse patient.[facility] CenterIn the event this information is protected by the Federal Confidentiality of Alcohol and Drug Abuse Patient Records regulations: The Federal rules restrict any use of the information to criminally investigate or prosecute any alcohol or drug abuse patient.[facility] CenterIn the event this information is protected by the Federal Confidentiality of Alcohol and Drug Abuse Patient Records regulations: The Federal rules restrict any use of the information to criminally investigate or prosecute any alcohol or drug abuse patient.[facility] CenterIn the event this information is protected by the Federal Confidentiality of Alcohol and Drug Abuse Patient Records regulations: The Federal rules restrict any use of the information to criminally investigate or prosecute any alcohol or drug abuse patient.[facility] CenterIn the event this information is protected by the Federal Confidentiality of Alcohol and Drug Abuse Patient Records regulations: The Federal rules restrict any use of the information to criminally investigate or prosecute any alcohol or drug abuse patient.[facility] CenterIn the event this information is protected by the Federal Confidentiality of Alcohol and Drug Abuse Patient Records regulations: The Federal rules restrict any use of the information to criminally investigate or prosecute any alcohol or drug abuse patient.[facility] Reason for Visit (unrecogniz ed section and content) Reason Comments Orders Reason Onset Date Comments Refill Request 05/29/2021 Specialty Diagnoses / Procedures Referred By Contac t Referred To Contact MR IMAGING Diagnoses Liver mass R16.0 (ICD-10-CM) - Liver mass Procedures MRI LIVER WO/W IVCON MRI,ABDOMEN,W&WO CONTRS MRI LIVER WO/W IVCON Pat Todd MD [address] [place] [address] Mr Imaging Referral ID Status Reason Start [...] 03/03/2022 Reason Comments Appointment Patient called to wv deniz sure we have the right number for virtual [...] NECK REAL TIME IMGE Jovany Saunders PA-C [address] [place] [address] [place] [address] Referral ID Status Reason Start Date Expiration Date V isits Requested Visits Authorized [id number] Closed Auto-Generate d Referral 05/19/2022 06/18/2023 [address] Specialty Diagnoses / Procedures Referred By Contac t Referred To Contact CT IMAGING Diagnoses Lung nodules Cigarette smoker History of renal cell cancer Procedures CT CHEST WO IVCON DIAGNOSTIC COMPUTED TOMOGRAPHY THORAX W/O Patti Goss MD [address] [place] [address] [place] [address] Referral ID Status Reason Start Date Expiration Date V isits Requested Visits Authorized [id number] Closed Auto-Generate d Referral 03/16/2022 05/15/2022 1 1 Reason Onset Date Comments Refill Request 12/27/2022 Reason Onset Date Comments Refill Request 01/17/2023 Reason Onset Date Comments Refill Request 01/28/2023 Reason Onset Date Comments Refill Request 03/25/2023 Reason Onset Date Comments Refill Request 04/20/2023 Reason Onset Date Comments Refill Request 05/13/2023 Reason Comments Orders Due for chest CT Reason Onset Date Comments Refill Request 05/20/2023 Reason Onset Date Comments Refill Request 06/06/2023 Reason Comments Release Of Medical Records Reason Comments Follow Up Specialty Diagnoses / Procedures Referred By Contac t Referred To Contact CT IMAGING Diagnoses Lung nodules Ground glass opacity present on imaging of lung Procedures CT CHEST WO IVCON DIAGNOSTIC COMPUTED TOMOGRAPHY THORAX W/O CNTRST Patti Knox MD [address] [place] [address] [place] [address] Referral ID Status Reason Start Date Expiration Date V isits Requested Visits Authorized [id number] Closed Auto-Generate d Referral 05/06/2023 07/05/2023 1 1 Reason Comments Results High micro albumin Reason Comments Insurance Authorization [employer] fle[employer]ou[employer] h Reason Onset Date Comments Refill Request 07/14/2023 Reason Comments Letter Reason Onset Date Comments Refill Request 07/19/2023 Reason Comments re-fax letter Reason Onset Date Comments Refill Request 08/08/2023 Reason Onset Date Comments Refill Request 08/10/2023 Reason Comments Patient Update FYI-No Action Needed Reason Onset Date Comments Refill Request 09/02/2023 Reason Onset Date Comments Refill Request 09/08/2023 Reason Onset Date Comments Refill Request 09/09/2023 Reason Onset Date Comments Refill Request 09/19/2023 Reason Comments medication insulin problem Reason Onset Date Comments Refill Request 10/07/2023 Reason Onset Date Comments Refill Request 10/10/2023 Reason Onset Date Comments Refill Request 10/26/2023 Reason Onset Date Comments Refill Request 01/03/2024 Reason Onset Date Comments Refill Request 02/21/2024 Reason Onset Date Comments Refill Request 03/05/2024 Reason Onset Date Comments Refill Request 03/22/2024 Reason Onset Date Comments Refill Request 04/17/2024 Reason Onset Date Comments Refill Request 04/27/2024 Reason Onset Date Comments Refill Request 05/04/2024 Reason Onset Date Comments Insurance Authorization 05/09/2024 Reason Onset Date Comments Refill Request 05/15/2024 Reason Comments FYI-No Action Needed Reason Comments Spirometry Specialty Diagnoses / Procedures Referred By Contac t Referred To [facility] Diagnoses Chronic obstructive pulmonary disease, unspecified COPD type (HCC) Procedures SPIROMETRY BASELINE ONLY SPMTRY W/VC EXPIRATORY KYLE W/WO MXML VOL VNTJ Pilar Cardoza, PA-C [address] [place] [address] Phone: tel: fax: [facility] [address] [place] [address] Referral ID Status Reason Start Date Expiration Date V isits Requested Visits Authorized [id number] Closed Auto-Generate d Referral 08/11/2023 09/09/2024 1 1 Specialty Diagnoses / Procedures Referred By Contac t Referred To Contact [facility] Diagnoses Chronic obstructive pulmonary disease, unspecified COPD type (HCC) Procedures OXIMETRY WITH AMBULATION NONINVASIVE EAR/PULSE OXIMETRY Pilar Alamo PA-C [address] [place] [address] Phone: tel: fax: [facility] [address] [place] [address] Referral ID Status Reason Start Date Expiration Date V isits Requested Visits Authorized [id number] Closed Auto-Generate d Referral 08/11/2023 09/09/2024 1 1 Reason Comments Established Patient COPD Reason Comments Recheck Medication refills Reason Onset Date Comments Refill Request 06/15/2024 Reason Comments Forms [employer] Reason Onset Date Comments Refill Request 07/13/2024 Reason Comments Insurance Authorization Reason Onset Date Comments Refill Request 07/31/2024 Reason Comments Recheck BP check Reason Onset Date Comments Refill Request 08/07/2024 Reason Onset Date Comments Refill Request 08/20/2024 Reason Onset Date Comments Refill Request 09/11/2024 Reason Onset Date Comments Refill Request 10/04/2024 Care Teams (unrecognized sec tion and content) Food Porter Relationship Specialty Start Date End Date Pat Todd MD [address] [place], [place] [address] PCP - General Family Practice 11/10/12 Mat Davidson [facility] [address] [place], [place] [id number] Pharmacist Pharmacy 12/28/18 Food Porter Relationship Specialty Start Date End Date Pat Todd MD [address] [place], [place] [id number] PCP - General Family Practice 11/10/12 Mat Davidson [facility] [address] [place] [address] Pharmacist Pharmacy 12/28/18 Food Porter Relationship Specialty Start Date End Date Pat Todd MD [address] [facility] [place] [address] PCP - General Family Practice 11/10/12 [facility] [address] [facility] [place] [address] Pharmacist Pharmacy 12/28/18 Food Porter Relationship Specialty Start Date End Date Pat Todd MD [address] [facility] [place] [address] PCP - General Family Practice 11/10/12 [facility] [address] [facility] [place] [address] Pharmacist Pharmacy 12/28/18 Food Porter Relationship Specialty Start Date End Date Pat Todd MD [address] [facility] [place] [address] PCP - General Family Practice 11/10/12 Mat Davidson, [facility] [address] [place] [address] Pharmacist Pharmacy 12/28/18 Food Porter Relationship Specialty Start Date End Date Pat Todd MD [address] [facility] [place] [address] PCP - General Family Practice 11/10/12 Mat Davidson, [facility] [address] [facility] [place] [address] Pharmacist Pharmacy 12/28/18 Food Porter Relationship Specialty Start Date End Date Pat Todd MD [address] [facility] [place] [address] PCP - General Family Practice 11/10/12 Stuart Benbell, [facility] [address] [facility] [place] [address] Pharmacist Pharmacy 12/28/18 Food Porter Relationship Specialty Start Date End Date Pat Todd MD [address] [facility] [place] [address] PCP - General Family Practice 11/10/12 Mat Davidson, [facility] [address] [facility] [place] [address] Pharmacist Pharmacy 12/28/18 Food Porter Relationship Specialty Start Date End Date Pat Todd MD [address] [facility] [place] [address] PCP - General Family Practice 11/10/12 Mat Davidson, [facility] [address] [facility] [place] [address] Pharmacist Pharmacy 12/28/18 Food Porter Relationship Specialty Start Date End Date Jovany Rizzo PA-C [address] [facility] [place] [address] PCP - General Family Practice 07/10/21 Leifbrooklyn Benbell, [facility] [address] [facility] [place] [address] Pharmacist Pharmacy 12/28/18 Food Porter Relationship Specialty Start Date End Date Jovany Rizzo PA-C [address] [facility] [place] [address] PCP - General Family Practice 07/10/21 Mat Davidson, [facility] [address] [facility] [place] [address] Pharmacist Pharmacy 12/28/18 Food Porter Relationship Specialty Start Date End Date Pat Todd MD [address] [facility] [place] [address] PCP - General Family Practice 11/10/12 07/09/21 Mat Davidson, [facility] [address] [facility] [place] [address] Pharmacist Pharmacy 12/28/18 Food Porter Relationship Specialty Start Date End Date Jovany Rizzo PA-C [address] [facility] [place] [address] PCP - General Family Practice 07/10/21 LeifMat bar[place]ona, [facility] [address] [place] [address] Pharmacist Pharmacy 12/28/18 Food Porter Relationship Specialty Start Date End Date Jovany Rizzo PA-C [address] [place] [address] PCP - General Family Practice 07/10/21 LeifMat bar[place], [facility] [address] [place] [address] Pharmacist Pharmacy 12/28/18 Food Porter Relationship Specialty Start Date End Date Jovany Rizzo PA-C [address] [place] [address] PCP - General Family Practice 07/10/21 LeifMat bar[place], [facility] [address] [place] [address] Pharmacist Pharmacy 12/28/18 Food Porter Relationship Specialty Start Date End Date Jovany Rizzo PA-C [address] [facility] [place] [address] PCP - General Family Practice 07/10/21 LeifMat bar[place], [facility] [address] [place] [address] Pharmacist Pharmacy 12/28/18 Food Porter Relationship Specialty Start Date End Date Jovany Rizzo PA-C [address] [place] [address] PCP - General Family Practice 07/10/21 Mat Davidson, [facility] [address] [place] [address] Pharmacist Pharmacy 12/28/18 Food Porter Relationship Specialty Start Date End Date Jovany Rizzo PA-C [address] [place] [address] PCP - General Family Practice 07/10/21 Mat Davidson, [facility] [address] [place] [address] Pharmacist Pharmacy 12/28/18 Food Porter Relationship Specialty Start Date End Date Jovany Rizzo PA-C [address] [place] [address] PCP - General Family Practice 07/10/21 Mat Davidson, [facility] [address] [place] [address] Pharmacist Pharmacy 12/28/18 Food Porter Relationship Specialty Start Date End Date Jovany Rizzo PA-C [address] [place] [address] PCP - General Family Practice 07/10/21 Mat Davidson, [facility] [address] [place] [address] Pharmacist Pharmacy 12/28/18 Food Porter Relationship Specialty Start Date End Date Jovany Rizzo PA-C [address] [place] [address] PCP - General Family Medicine 07/10/21 Mat Davidson, [facility] [address] [place] [address] Pharmacist Pharmacy 12/28/18 Food Porter Relationship Specialty Start Date End Date Jovany Rizzo PA-C [address] [place] [address] PCP - General Family Medicine 07/10/21 Mat Davidson, [facility] [address] [place] [address] Pharmacist Pharmacy 12/28/18 Food Porter Relationship Specialty Start Date End Date Jovany Rizzo PA-C [address] [place] [address] PCP - General Family Medicine 07/10/21 Mat Davidson, [facility] [address] [place] [address] Pharmacist Pharmacy 12/28/18 Food Porter Relationship Specialty Start Date End Date Jovany Rizzo PA-C [address] [place] [address] PCP - General Family Medicine 07/10/21 Mat Davidson, [facility] [address] [place] [address] Pharmacist Pharmacy 12/28/18 Food Porter Relationship Specialty Start Date End Date Jovany Rizzo PA-C [address] [place] [address] PCP - General Family Medicine 07/10/21 Mat Davidson, [facility] [address] [place] [address] Pharmacist Pharmacy 12/28/18 Food Porter Relationship Specialty Start Date End Date Jovany Rizzo PA-C [address] [place] [address] PCP - General Family Medicine 07/10/21 Mat Davidson, [facility] [address] [place] [address] Pharmacist Pharmacy 12/28/18 Food Porter Relationship Specialty Start Date End Date Jovany Rizzo PA-C [address] [place] [address] PCP - General Family Medicine 07/10/21 [facility] [address] [place] [address] Pharmacist Pharmacy 12/28/18 Food Porter Relationship Specialty Start Date End Date Jovany Rizzo PA-C [address] [facility] [place] [address] PCP - General Family Medicine 07/10/21 [facility] [address] [place] [address] Pharmacist Pharmacy 12/28/18 Food Porter Relationship Specialty Start Date End Date Jovany Rizzo PA-C [address] [facility] [place] [address] PCP - General Family Medicine 07/10/21 Mat Davidson, [facility] [address] [place] [address] Pharmacist Pharmacy 12/28/18 Food Porter Relationship Specialty Start Date End Date Jovany Rizzo PA-C [address] [place] [address] PCP - General Family Medicine 07/10/21 [facility], [facility] [address] [address] [place] [address] Pharmacist Pharmacy 12/28/18 Food Porter Relationship Specialty Start Date End Date Jovany Rizzo PA-C [address] [facility] [place] [address] PCP - General Family Medicine 07/10/21 [facility] [address] [place] [address] Pharmacist Pharmacy 12/28/18 Food Porter Relationship Specialty Start Date End Date Jovany Rizzo PA-C [address] [facility] [place] [address] PCP - General Family Medicine 07/10/21 [facility] [address] [facility] [place] [address] Pharmacist Pharmacy 12/28/18 Food Porter Relationship Specialty Start Date End Date Jovany Rizzo PA-C [address] [facility] [place] [address] PCP - General Family Medicine 07/10/21 LeifBen, [facility] [address] [place] [address] Pharmacist Pharmacy 12/28/18 Food Porter Relationship Specialty Start Date End Date Jovany Rizzo PA-C [address] [facility] [place] [address] PCP - General Family Medicine 07/10/21 Le[facility], [facility] [address] [place] [address] Pharmacist Pharmacy 12/28/18 Food Porter Relationship Specialty Start Date End Date Jovany Rizzo PA-C [address] [facility] [place] [address] PCP - General Family Medicine 07/10/21 [facility] [address] [place] [address] Pharmacist Pharmacy 12/28/18 Food Porter Relationship Specialty Start Date End Date Jovany Rizzo PA-C [address] [facility] [place] [address] PCP - General Family Medicine 07/10/21 Mat Davidson, [facility] [address] [place] [address] Pharmacist Pharmacy 12/28/18 Food Porter Relationship Specialty Start Date End Date Jovany Rizzo PA-C [address] [facility] [place] [address] PCP - General Family Medicine 07/10/21 Mat Davidson, [facility] [address] [facility] [place] [address] Pharmacist Pharmacy 12/28/18 Food Porter Relationship Specialty Start Date End Date Jovany Rizzo PA-C [address] [facility] [place] [address] PCP - General Family Medicine 07/10/21 Mat Davidson, [facility] [address] [facility] [place] [address] Pharmacist Pharmacy 12/28/18 Food Porter Relationship Specialty Start Date End Date Jovany Rizzo PA-C [address] [facility] [place] [address] PCP - General Family Medicine 07/10/21 Mat Davidson, [facility] [address] [facility] [place] [address] Pharmacist Pharmacy 12/28/18 Food Porter Relationship Specialty Start Date End Date Jovany Rizzo PA-C [address] [facility] [place] [address] PCP - General Family Medicine 07/10/21 Mat Davidson, [facility] [address] [facility] [place] [address] Pharmacist Pharmacy 12/28/18 Food Porter Relationship Specialty Start Date End Date Jovany Rizzo PA-C [address] [place] [address] PCP - General Family Medicine 07/10/21 Stuart Mat, [facility] [address] [place] [address] Pharmacist Pharmacy 12/28/18 Food Porter Relationship Specialty Start Date End Date Jovany Rizzo PA-C [address] [place] [address] PCP - General Family Medicine 07/10/21 Mat Davidson, [facility] [address] [place] [address] Pharmacist Pharmacy 12/28/18 Food Porter Relationship Specialty Start Date End Date Jovany Rizzo PA-C [address] [place] [address] PCP - General Family Medicine 07/10/21 Mat Davidson, [facility] [address] [place] [address] Pharmacist Pharmacy 12/28/18 Food Porter Relationship Specialty Start Date End Date Jovany Rizzo PA-C [address] [place] [address] PCP - General Family Medicine 07/10/21 LeifMat, [facility] [address] [place] [address] Pharmacist Pharmacy 12/28/18 Food Porter Relationship Specialty Start Date End Date Jovany Rizzo PA-C [address] [place] [address] PCP - General Family Medicine 07/10/21 Mat Davidson, [facility] [address] [facility] [place] [address] Pharmacist Pharmacy 12/28/18 Food Porter Relationship Specialty Start Date End Date Jovany Rizzo PA-C [address] [facility] [place] [address] PCP - General Family Medicine 07/10/21 Mat Davidson, [facility] [address] [facility] [place] [address] Pharmacist Pharmacy 12/28/18 Food Porter Relationship Specialty Start Date End Date Jovany Rizzo PA-C [address] [facility] [place] [address] PCP - General Family Medicine 07/10/21 Mat Davidson, [facility] [address] [facility] [place] [address] Pharmacist Pharmacy 12/28/18 Food Porter Relationship Specialty Start Date End Date Jovany Rizzo PA-C [address] [facility] [place] [address] PCP - General Family Medicine 07/10/21 Mat Davidson, [facility] [address] [facility] [place] [address] Pharmacist Pharmacy 12/28/18 Food Porter Relationship Specialty Start Date End Date Jovany Rizzo PA-C [address] [facility] [place] [address] PCP - General Family Medicine 07/10/21 Mat Davidson, [facility] [address] [facility] [place] [address] Pharmacist Pharmacy 12/28/18 Food Porter Relationship Specialty Start Date End Date Jovany iRzzo PA-C [address] [facility] [place] [address] PCP - General Family Medicine 07/10/21 Mat Davidson, [facility] [address] [facility] [place] [address] Pharmacist Pharmacy 12/28/18 Food Porter Relationship Specialty Start Date End Date Jovany Rizzo PA-C [address] [facility] [place] [address] PCP - General Family Medicine 07/10/21 Mat Davidson, [facility] Pharmacist Pharmacy 12/28/18 Food Porter Relationship Specialty Start Date End Date Jovany Rizzo PA-C [address] [facility] [place] [address] PCP - General Family Medicine 07/10/21 Mat Davidson, [facility] Pharmacist Pharmacy 12/28/18 Food Porter Relationship Specialty Start Date End Date Jovany Rizzo PA-C [address] [facility] [place] [address] PCP - General Family Medicine 07/10/21 Mat Davidson, [facility] Pharmacist Pharmacy 12/28/18 Food Porter Relationship Specialty Start Date End Date Jovany Rizzo PA-C [address] [facility] [place] [address] PCP - General Family Medicine 07/10/21 Mat Davidson, [facility] Pharmacist Pharmacy 12/28/18 Team Status: Active Member Role Status Dates Dr. Pat Todd MD Family Provider Active Dr. Pat Todd MD Primary Care Provider Active Team Status: Active Member Role Status Dates Dr. Pat Todd MD Primary Care Provider Active Dr. Desmond Infante MD Emergency Provider Active Dr. Chelsi Warner MD Admit Provider, Attending Provider, Other Provider Active Team Status: Active Member Role Status Dates Dr. Pat Todd MD Primary Care Provider Active Dr. Desmond Infante MD Emergency Provider Active Dr. Chelsi Warner MD Admit Provider, Attending Prov ider Active Team Status: Active Member Role Status Dates Dr. Pat Todd MD Primary Care Provider Active Dr. Desmond Infante MD Emergency Provider Active Dr. Chelsi Warner MD Admit Provider, Other Provider Active Dr. Russell Flower MD Attending Provider, Other Provid er Active Team Status: Inactive Member Role Status Dates Dr. Pat Todd MD Primary Care Provider Active Dr. Desmond Infante MD Emergency Provider Active Dr. Chelsi Warner MD Admit Provider, Other Provider Active Dr. Russell Flower MD Attending Provider Active Food Porter Relationship Specialty Start Date End Date Jovany Rizzo PA-C [address] [place] [address] PCP - General Family Medicine 07/10/21 Food Porter Relationship Specialty Start Date End Date Jovany Rizzo PA-C [address] [place] [address] PCP - General Family Medicine 07/10/21 Food Porter Relationship Specialty Start Date End Date Jovany Rizzo PA-C [address] [place], [place] [address] PCP - General Family Medicine 07/10/21 Food Porter Relationship Specialty Start Date End Date Jovany Rizzo PA-C [address] [place], [place] [address] PCP - General Family Medicine 07/10/21 Food Porter Relationship Specialty Start Date End Date Jovany Rizzo PA-C [address] [facility] [place] [address] PCP - General Family Medicine 07/10/21 Food Porter Relationship Specialty Start Date End Date Jovany Rizzo PA-C [address] [place] [place] [address] PCP - General Family Medicine 07/10/21 Food Porter Relationship Specialty Start Date End Date Jovany Rizzo PA-C [address] [place] [place] [address] PCP - General Family Medicine 07/10/21 Food Porter Relationship Specialty Start Date End Date Jovany Rizzo PA-C [address] [place] [address] PCP - General Family Medicine 07/10/21 Food Porter Relationship Specialty Start Date End Date Jovany Rizzo PA-C [address] [place] [place] [address] PCP - General Family Medicine 07/10/21 Food Porter Relationship Specialty Start Date End Date Jovany Rizzo PA-C [address] [place] [place] [address] PCP - General Family Medicine 07/10/21 Food Porter Relationship Specialty Start Date End Date Jovany Rizzo PA-C [address] [place] [address] PCP - General Family Medicine 07/10/21 Food Porter Relationship Specialty Start Date End Date Jovany Rizzo PA-C [address] [place] [place] [address] PCP - General Family Medicine 07/10/21 Food Porter Relationship Specialty Start Date End Date Jovany Rizzo PA-C [address] [place] [place] [address] PCP - General Family Medicine 07/10/21 Food Porter Relationship Specialty Start Date End Date Jovany Rizzo PA-C [address] [place] [place] [address] PCP - General Family Medicine 07/10/21 Food Porter Relationship Specialty Start Date End Date Jovany Rizzo PA-C [address] [place] [address] PCP - General Family Medicine 07/10/21 Food Porter Relationship Specialty Start Date End Date Jovany Rizzo PA-C [address] [place] [address] PCP - General Family Medicine 07/10/21 Food Porter Relationship Specialty Start Date End Date Jovany Rizzo PA-C [address] [place] [place] [address] PCP - General Family Medicine 07/10/21 Food Porter Relationship Specialty Start Date End Date Jovany Rizzo PA-C [address] [place] [address] PCP - General Family Medicine 07/10/21 Food Porter Relationship Specialty Start Date End Date Jovany Rizzo PA-C [address] [place] [address] PCP - General Family Medicine 07/10/21 Food Porter Relationship Specialty Start Date End Date Pat Todd MD [address] [facility] [address] PCP - General Family Medicine 11/10/12 07/09/21 Mat Davidson [facility] [address] [place] [address] Pharmacist Pharmacy 12/28/18 03/15/23 Food Porter Relationship Specialty Start Date End Date Rodriguez Rizzo PA-C PCP - General Family Medicine 07/10/21 Food Porter Relationship Specialty Start Date End Date Rodriguez Rizzo PA-C PCP - General Family Medicine 07/10/21 Lu Greene APRN.SENIOR CENTER DIRECTOR [address] [place] [address] Security Installation Technician Family Medicine 01/20/24 Mary Morales CORSAGE MAKER.SENIOR CENTER DIRECTOR [address] [place] [address] Security Installation Technician Family Medicine 01/20/24 Food Porter Relationship Specialty Start Date End Date Rodriguez Rizzo PA-C PCP - General Family Medicine 07/10/21 Lu Greene CORSAGE MAKER.SENIOR CENTER DIRECTOR [address] [place] [address] Security Installation Technician Family Medicine 01/20/24 Mary Morales CORSAGE MAKER.SENIOR CENTER DIRECTOR [address] [place] [address] Security Installation Technician Family Medicine 01/20/24 Food Porter Relationship Specialty Start Date End Date Rodriguez Rizzo PA-C PCP - General Family Medicine 07/10/21 Lu Greene CORSAGE MAKER.SENIOR CENTER DIRECTOR [address] [facility] [place] [address] Security Installation Technician Family Medicine 01/20/24 Mary Morales APRN.SENIOR CENTER DIRECTOR [address] [facility] [place] [address] Security Installation Technician Family Medicine 01/20/24 Food Porter Relationship Specialty Start Date End Date Lu Greene APRN.SENIOR CENTER DIRECTOR [address] [facility] [place] [address] PCP - General Family Medicine 04/16/24 Lu Greene APRN.SENIOR CENTER DIRECTOR [address] [facility] [place] [address] Security Installation Technician Family Medicine 01/20/24 Mary Morales APRN.SENIOR CENTER DIRECTOR [address] [facility] [place] [address] Security Installation Technician Family Medicine 01/20/24 Food Porter Relationship Specialty Start Date End Date Lu Greene APRN.SENIOR CENTER DIRECTOR [address] [facility] [place] [address] PCP - General Family Medicine 04/16/24 Lu Greene APRN.SENIOR CENTER DIRECTOR [address] [facility] [place] [address] Security Installation Technician Family Medicine 01/20/24 Mary Morales CORSAGE MAKER.SENIOR CENTER DIRECTOR [address] [facility] [place] [address] Security Installation Technician Family Medicine 01/20/24 Food Porter Relationship Specialty Start Date End Date Lu Greene APRN.SENIOR CENTER DIRECTOR [address] [place] [address] PCP - General Family Medicine 04/16/24 Lu Greene APRN.SENIOR CENTER DIRECTOR [address] [place] [address] Security Installation Technician Family Medicine 01/20/24 Mary Morales APRN.SENIOR CENTER DIRECTOR [address] [place] [address] Security Installation Technician Family Medicine 01/20/24 Food Porter Relationship Specialty Start Date End Date Lu Greene APRN.SENIOR CENTER DIRECTOR [address] [place] [address] PCP - General Family Medicine 04/16/24 Lu Greene, [employer].SENIOR CENTER DIRECTOR [address] [place] [address] Security Installation Technician Family Medicine 01/20/24 Mary Morales CORSAGE MAKER.SENIOR CENTER DIRECTOR [address] [place] [address] Security Installation Technician Family Medicine 01/20/24 Food Porter Relationship Specialty Start Date End Date Lu Greene, [employer]AGE MAKER.SENIOR CENTER DIRECTOR [address] [place] [address] PCP - General Family Medicine 04/16/24 Food Porter Relationship Specialty Start Date End Date Lu Greene APRN.SENIOR CENTER DIRECTOR [address] [place] [address] PCP - General Family Medicine 04/16/24 Food Porter Relationship Specialty Start Date End Date Lu Greene, CORSAGE MAKER.SENIOR CENTER DIRECTOR [address] [facility] [place] [address] PCP - General Family Medicine 04/16/24 Food Porter Relationship Specialty Start Date End Date Lu Greene, [place].SENIOR CENTER DIRECTOR [address] [facility] [place] [address] PCP - General Family Medicine 04/16/24 Food Porter Relationship Specialty Start Date End Date Pat Todd MD [address] [facility] [place] [address] PCP - General Family Medicine 06/05/24 Food Porter Relationship Specialty Start Date End Date Pat Todd MD [address] [facility] [place] [address] PCP - General Family Medicine 06/05/24 Food Porter Relationship Specialty Start Date End Date Pat Todd MD [address] [facility] [place] [address] PCP - General Family Medicine 06/05/24 Food Porter Relationship Specialty Start Date End Date Pat Todd MD [address] [facility] [place] [address] PCP - General Family Medicine 06/05/24 Food Porter Relationship Specialty Start Date End Date Pat Todd MD [address] [facility] [place] [address] PCP - General Family Medicine 06/05/24 Lu Greene, [place].SENIOR CENTER DIRECTOR [address] [facility] [place] [address] Security Installation Technician Family Medicine 06/28/24 Mary Morales APRN.SENIOR CENTER DIRECTOR [address] [facility] [place] [address] Security Installation Technician Family Medicine 06/28/24 Food Porter Relationship Specialty Start Date End Date Pat Todd MD [address] [facility] [place] [address] PCP - General Family Medicine 06/05/24 Lu Greene APRN.SENIOR CENTER DIRECTOR [address] [facility] [place] [address] Security Installation Technician Family Medicine 06/28/24 Mary Morales APRN.SENIOR CENTER DIRECTOR [address] [facility] [place] [address] Security Installation Technician Family Medicine 06/28/24 Food Porter Relationship Specialty Start Date End Date Pat Todd MD [address] [facility] [place] [address] PCP - General Family Medicine 06/05/24 Lu Greene APRN.SENIOR CENTER DIRECTOR [address] [facility] [place] [address] Security Installation Technician Family Medicine 06/28/24 Mary Morales APRN.SENIOR CENTER DIRECTOR [address] [facility] [place] [address] Security Installation Technician Family Medicine 06/28/24 Food Porter Relationship Specialty Start Date End Date Pat Todd MD [address] [facility] [place] [address] PCP - General Family Medicine 06/05/24 Lu Greene CORSAGE MAKER.SENIOR CENTER DIRECTOR [address] [facility] [place] [address] Security Installation Technician Family Medicine 06/28/24 Mary Morales APRN.SENIOR CENTER DIRECTOR [address] [facility] [place] [address] Security Installation Technician Family Medicine 06/28/24 Food Porter Relationship Specialty Start Date End Date Pat Todd MD [address] [place] [address] PCP - General Family Medicine 06/05/24 Lu Greene APRN.SENIOR CENTER DIRECTOR [address] [place] [address] Security Installation Technician Family Medicine 06/28/24 Mary Morales APRN.SENIOR CENTER DIRECTOR [address] [place] [address] Security Installation Technician Family Medicine 06/28/24 Food Porter Relationship Specialty Start Date End Date Pat Todd MD [address] [place] [address] PCP - General Family Medicine 06/05/24 Lu Greene APRN.SENIOR CENTER DIRECTOR [address] [place] [address] Security Installation Technician Family Medicine 06/28/24 Mary Morales CORSAGE MAKER.SENIOR CENTER DIRECTOR [address] [place] [address] Security Installation Technician Family Medicine 06/28/24 Food Porter Relationship Specialty Start Date End Date Pat Todd MD [address] [place] [address] PCP - General Family Medicine 06/05/24 Lu Greene CORSAGE MAKER.SENIOR CENTER DIRECTOR [address] [place] [address] Security Installation Technician Family Medicine 06/28/24 Mary Morales CORSAGE MAKER.SENIOR CENTER DIRECTOR [address] [place] [address] Security Installation Technician Family Medicine 06/28/24 Food Porter Relationship Specialty Start Date End Date Pat Todd MD [address] [place] [address] PCP - General Family Medicine 06/05/24 Lu Greene CORSAGE MAKER.SENIOR CENTER DIRECTOR [address] [place] [address] Security Installation Technician Family Medicine 06/28/24 Mary Morales CORSAGE MAKER.SENIOR CENTER DIRECTOR [address] [place] [address] Security Installation Technician Family Medicine 06/28/24 Food Porter Relationship Specialty Start Date End Date Pat Todd MD [address] [place] [address] PCP - General Family Medicine 06/05/24 Lu Greene, [employer]AGE MAKER.SENIOR CENTER DIRECTOR [address] [place] [address] Security Installation Technician Family Medicine 06/28/24 Mary Morales CORSAGE MAKER.SENIOR CENTER DIRECTOR [address] [place] [address] Security Installation Technician Family Medicine 06/28/24 Food Porter Relationship Specialty Start Date End Date Pat Todd MD [address] [facility] [address] PCP - General Family Medicine 06/05/24 Lu Greene APRN.SENIOR CENTER DIRECTOR [address] [facility] [place] [address] Security Installation Technician Family Medicine 06/28/24 Mary Morales APRN.SENIOR CENTER DIRECTOR [address] [facility] [place] [address] Security Installation Technician Family Medicine 06/28/24 Food Porter Relationship Specialty Start Date End Date Pat Todd MD [address] [facility] [place] [address] PCP - General Family Medicine 06/05/24 Lu Greene CORSAGE MAKER.SENIOR CENTER DIRECTOR [address] [facility] [place] [address] Security Installation Technician Family Medicine 06/28/24 Mary Morales CORSAGE MAKER.SENIOR CENTER DIRECTOR [address] [facility] [place] [address] Security Installation Technician Family Medicine 06/28/24 Food Porter Relationship Specialty Start Date End Date Pat Todd MD [address] [facility] [place] [address] PCP - General Family Medicine 06/05/24 Lu Greene APRN.SENIOR CENTER DIRECTOR [address] [facility] [place] [address] Security Installation Technician Family Medicine 06/28/24 Mary Morales APRN.SENIOR CENTER DIRECTOR [address] [facility] [address] Security Installation Technician Family Medicine 06/28/24 Food Porter Relationship Specialty Start Date End Date Lu Greene APRN.SENIOR CENTER DIRECTOR [address] [place] [address] Security Installation Technician Family Medicine 06/28/24 Mary Morales APRN.SENIOR CENTER DIRECTOR [address] [place] [address] Security Installation Technician Family Medicine 06/28/24 Food Porter Relationship Specialty Start Date End Date Lu Greene APRN.SENIOR CENTER DIRECTOR [address] [place] [address] [facility] 06/28[facility]24 Mary Morales APRN.SENIOR CENTER DIRECTOR [address] [place] [address] [facility] 06/28/24 Food Porter Relationship Specialty Start Date End Date Pat Todd MD [address] [place] [address] PCP - General Family Medicine 06/05/24 09/10/24 Lu Greene APRN.SENIOR CENTER DIRECTOR [address] [place] [address] [facility] Family Medicine 06/28/24 Mary Morales APRN.SENIOR CENTER DIRECTOR [address] [place] [address] [facility] 06/28/24 Goals (unrecognized section and content) Goals may be documented in a n alternate section FOR RECORDS PERTAINING TO PATIENTS WHO ARE [...] BE BASED ON THE PRIMARY CLINICAL RECORDS. [facility] [employer] [facility]. provides no warranty or guarantee of the accuracy or completeness of information in this document.
--- NOTE | 2025-01-04 23:25 | EKG12_ITS ---
Test Reason : DYSRHYTHMIA Blood Pressure : */* mmHG Vent. Rate : 92 BPM Atrial Rate : 214 BPM P-R Int : * ms QRS Dur : 80 ms QT Int : 340 ms P-R-T Axes : 265 124 77 degrees QTcB Int : 420 ms Atrial flutter with variable A-V block Right axis deviation Pulmonary disease pattern Nonspecific ST abnormality Abnormal ECG Confirmed by ANANYA MALLOY, YARA ([id number]), order editor FUNMILAYO HERNANDEZ ([id number]) on 01/07/2025 1:36:06 PM Referred By: Confirmed By: YARA HARE MD
[2025-01-04 23:29] LABS: Allen Test Positive; Base Excess 15 mmol/L (-2 to +2); FI02 15.0; PO2 83 mmHG (75-100); SITE R Radial; SO2 95 % (94-98)
[2025-01-04 23:33] LABS: Hematocrit 46.5 % (37-47); Hemoglobin 13.9 g/dL (12.0-15.0); Immature Granulocytes Count 0.110 X10^3/uL (0.0-0.0); Mean Corp Hgb Conc 29.9 g/dL (32-36); Mean Corpuscular Volume 88.1 fL (81-99); Mean Platelet Vol. 10.2 fl (6.2-12.0); NRBC Flagged by Analyzer 0 % (0-5); Platelet Count 235 K/mm3 (150-450); RBC Distribution Width CV 14.2 % (11.6-14.6); RBC Distribution Width SD 45.9 fl (35.1-43.9); Red Blood Count 5.28 M/mm3 (4.2-5.4); White Blood Count 18.8 K/mm3 (4.4-11.0)
--- NOTE | 2025-01-04 23:42 | RAD_ITS ---
PROCEDURE: CHEST 1 VIEW (PORTABLE) 01/04/2025 REASON FOR EXAM: SOB TECHNIQUE: Frontal view of the chest. COMPARISON: 02/25/2023. FINDINGS: Hazy opacities are noted within the perihilar regions as well as the lower lungs, concerning for infiltrates and/or central pulmonary vascular congestion. The cardiac silhouette remains enlarged. No acute osseous abnormality. Stable degenerative changes within the thoracic spine. RAD/Chest 1 View (Portable) IMPRESSION: As above. Reading Location: [id number]
[2025-01-04 23:56] LABS: Anion Gap 11 (5-15); BUN 18 mg/dL (4-19); BUN/Creat Ratio 20.3 RATIO (10-20); Calcium,Total 9.5 mg/dL (7.6-11.0); Carbon Dioxide 37.0 mmol/L (21.0-32.0); Chloride 93 mmol/L (98-108); Estimated Creatinine Clearance 112.64 ml/min (50-250); Glucose 236 mg/dL (70-99); Potassium 4.3 mmol/L (3.3-5.1); Pro- Brain NATRIURETIC PEPTIDE 594 pg/mL (<=900)
[2025-01-05] VITALS (33 sets, daily range): BP systolic 93–162; BP diastolic 54–131; PULSE 73–109; RESP 6–26; TEMP 36.8–39.1; O2SAT 90–100; BMI 62.7
[2025-01-05 00:08] LABS: Mucous, Urine 0 SEEN /hpf (<or=2+)
[2025-01-05] MEDS: Ketorolac 30 MG/ML Syringe IV (00:19)
[2025-01-05] MEDS: Piperacil/Tazobactam 3.375 GM in 0.9% Normal Saline (50mL MB+) 50 ML IV ×4 (00:29→21:22)
[2025-01-05 00:39] LABS: Procalcitonin 0.06 ng/mL (<=0.10)
[2025-01-05 00:47] LABS: Color, Urine Yellow (Yellow); Glucose, Dipstick 50 mg/dl (Normal); Ketone-Dipstick Negative (Negative); Leukocyte Esterase-Dipstick Negative /ul (Negative); Nitrite-Dipstick Negative (Negative); Occult Blood-Urine 150 /ul (Negative); Protein-Dipstick 500 mg/dl (Negative); Specific Gravity, Urine 1.015 (1.002-1.030); Urine Bilirubin Dipstick Negative (Negative)
[2025-01-05] MEDS: 0.9% Normal Saline (1000mL) 1,000 ML 999 ML IV ×2 (00:47→04:00)
[2025-01-05 01:00] LABS: Allen Test Positive; Base Excess 17 mmol/L (-2 to +2); FI02 30.0; PO2 62 mmHG (75-100); SITE R Radial; SO2 90 % (94-98)
[2025-01-05 01:07] LABS: Red Blood Cells-Urine 5-10 SEEN /hpf (0-5); Squamous Epithelial Cells - UA 0-5 SEEN /hpf (5-10)
[2025-01-05] MEDS: Vancomycin HCl 2,000 MG in 0.9% Normal Saline (500mL Bag) 500 ML 250 MG IV (01:07)
--- NOTE | 2025-01-05 01:13 | CPS ---
[0110] AVAPS settings titrated for pt.'s comfort. Physician is agreeable to changes at this time.
--- NOTE | 2025-01-05 01:30 | PCM.HP.STD ---
HPI - General General Date of Admission: 01/05/25 Date of Service: 01/05/25 Chief Complaint: Weakness/hypoxia HPI Narrative JORDYN MATHEW, is a morbidly obese 59 F with a history of COPD oxygen dependence at 4 L who presented to the emergency department at [facility] on 01/04/2025 secondary to weakness. Patient had 3 episodes of falling onto her floor from her chair at home today. The squad was called all 3 times and in the last episode they forced her to come the emergency department for evaluation. She was found to have a SpO2 of 73% at ED triage on her 4 L nasal cannula. Patient does confirm she has had some sick contacts but unable to give me much history as she is currently on BiPAP. She denies sputum production. She has had no nausea or vomiting. Vital signs on presentation showed temperature of 98.3, heart rate 103, respiratory rate was 25, blood pressure was 200/98 and pulse ox was 85% on 12 L flow with a nonrebreather. She was transition to BiPAP at 100% and pulse ox improved to 98%. Tmax in the emergency department was 102.4. CBC showed a white count of 18.8, she has a left shift with a 90% neutrophilia. Chemistry panel shows chronically elevated serum bicarb but is otherwise unremarkable except for hyperglycemia with a blood glucose level of 236. Her lactic acid was 2.7. proBNP was normal at 594. Initial procalcitonin was 0.06. Her urine is not consistent with infection but does show proteinuria and microscopic hematuria. Chest x-ray shows hazy opacities concerning for infiltrate versus pulmonary vascular congestion. EKG shows no ST-T wave elevation is atrial flutter with variable block sinus rhythm versus CT on my review with some ectopy Cultures were obtained and patient was started on broad-spectrum antibiotics with 1 L of IV fluids given the emergency department. Patient will be admitted to the intensive care unit with anticipated length of stay greater than 2 midnights. [facility] Medical History GERD (gastroesophageal reflux disease) Neuropathy Anxiety and depression Chronic respiratory failure Urinary calculus Sleep apnea Panic disorder Microalbuminuria IBS (irritable bowel syndrome) HTN (hypertension) Type 2 diabetes mellitus Degenerative disc disease Tobacco dependence syndrome Morbid obesity Home Medications ?Medication ?Instructions ?Recorded ?Last Taken ?Type atenolol 50 mg tablet 50 mg PO DAILY BP 03/04/15 04/28/20 08:00 History furosemide 40 mg tablet 40 mg PO DAILY water retention 03/04/15 04/28/20 08:00 History gabapentin 300 mg capsule 300 mg PO TID nerve pain 03/04/15 04/28/20 17:00 History lisinopril 20 2 tab PO DAILY BP 03/04/15 04/28/20 08:00 History mg-hydrochlorothiazide 12.5 mg tablet venlafaxine 150 mg 150 mg PO DAILY mood 03/04/15 04/28/20 08:00 History capsule,extended release 24 hr albuterol sulfate 90 mcg/actuation 2 inh inhalation Q4H PRN Wheezing 12/26/18 Unknown History breath activated powder inhaler aspirin 81 mg tablet,delayed 81 mg PO DAILY heart health 12/26/18 04/28/20 08:00 History release (Adult Low Dose Aspirin) atorvastatin 40 mg tablet 40 mg PO QHS cholesterol 12/26/18 04/27/20 22:00 History dulaglutide 1.5 mg/0.5 mL 1.5 mg subcut FR diabetes 12/26/18 04/24/20 12:00 History subcutaneous pen injector (Trulicity) ibuprofen 800 mg tablet 800 mg PO Q6H PRN Pain Or Fever 12/26/18 Unknown History potassium chloride 10 mEq 20 meq PO DAILY supplement 12/26/18 04/28/20 08:00 History tablet,extended release (K-Tab) insulin degludec 100 unit/mL (3 83 unit SQ BID diabetes 09/01/19 04/28/20 17:00 History mL) subcutaneous pen buspirone 5 mg tablet 5 mg PO TID mood 04/28/20 04/28/20 17:00 History insulin lispro 100 unit/mL 40 unit SQ LUNCH diabetes 04/28/20 04/28/20 12:00 History subcutaneous pen insulin lispro 100 unit/mL 64 unit SQ BREAKFAST diabetes 04/28/20 04/28/20 08:00 History subcutaneous pen insulin lispro 100 unit/mL 94 unit subcut QHS diabetes 04/28/20 04/28/20 17:00 History subcutaneous pen sulfamethoxazole 800 1 tablet PO BID #10 TABLETS 04/30/20 Unknown Rx mg-trimethoprim 160 mg tablet insulin lispro 100 unit/mL 3 unit subcut DAILY 02/25/23 Unknown History subcutaneous half-unit pen (Humalog Zafar KwikPen (U-100)) insulin lispro 100 unit/mL 63 unit subcut DAILY 02/25/23 Unknown History subcutaneous half-unit pen (Humalog Zafar KwikPen (U-100)) insulin lispro 100 unit/mL 93 unit subcut QHS 02/25/23 Unknown History subcutaneous half-unit pen (Humalog Zafar KwikPen (U-100)) metformin 500 mg tablet,extended 1,000 mg PO BID 02/25/23 Unknown History release 24 hr omeprazole 20 mg capsule,delayed 20 mg PO DAILY 02/25/23 Unknown History release venlafaxine 75 mg capsule,extended 75 mg PO DAILY 02/25/23 Unknown History release 24 hr azithromycin 500 mg tablet 500 mg PO DAILY 3 days #3 tabs 02/27/23 Unknown Rx cefdinir 300 mg capsule 300 mg PO BID #10 caps 02/27/23 Unknown Rx cefdinir 300 mg capsule 300 mg PO BID #10 caps 02/27/23 Unknown Rx cefdinir 300 mg capsule 300 mg PO BID #10 caps 02/27/23 Unknown Rx prednisone 20 mg tablet 20 mg PO BID #10 tabs 02/27/23 Unknown Rx cephalexin 500 mg capsule 500 mg PO Q6 #40 CAPSULES 07/01/23 Unknown Rx hydrocodone-acetaminophen 5-325mg 1 tab PO Q6H PRN pain 5 days #14 09/04/23 Unknown Rx 5mg-325mg tabs Allergy/AdvReac Type Severity Reaction Status Date / Time tetanus and diphtheria Allergy Unknown swollen Verified 07/01/23 19:21 toxoids glands in neck that didn't decrease ketorolac tromethamine (From Allergy vivid Verified 07/01/23 19:21 Toradol) dreams morphine Allergy Itching Verified 07/01/23 19:21 Family History Aunt Diabetes Father Heart disease Sister Heart disease Grandfather Colon cancer Unknown Breast cancer Surgical History repair of r arm fx Hx of cholecystectomy History of renal stent H/O lithotripsy H/O dilation and curettage Hx of partial nephrectomy Social History household members: spouse Smoking Status: Former smoker quit status: considering quitting alcohol intake: never substance use type: does not use ROS Constitutional Constitutional: Reports chills, fatigue, fever(s), malaise and weakness; Denies anorexia, change in weight, night sweats or other Eyes Eyes: Denies blurry vision, change in eye color, change in vision, discharge from eye(s), double vision, erythema, eye pain, loss of vision or other ENT HEENT: Denies abnormal hearing, dysphagia, ear pain, epistaxis, headache(s), hearing loss, nasal congestion, nasal discharge, post nasal drip, sinus pressure, sore throat or other Cardiovascular Cardiovascular: Reports dyspnea on exertion and edema; Denies chest pain, claudication, lightheadedness, orthopnea, palpitations, paroxysmal nocturnal dyspnea, rapid heart rate, syncope or other Respiratory/Chest Respiratory/Chest: Reports cough, dyspnea, shortness of breath at rest and shortness of breath with exertion; Denies excessive phlegm production, hemoptysis, productive cough or wheezing Gastrointestinal Gastrointestinal: Denies abdominal pain, coffee ground emesis, constipation, diarrhea, dyspepsia, hematemesis, hematochezia, loose stools, melena, nausea, vomiting or other Genitourinary Genitourinary: Denies burning urination, difficulty urinating, dysuria, hematuria, nocturia, urinary frequency, urinary hesitancy, urinary incontinence, urinary urgency or other Musculoskeletal Musculoskeletal: Denies arthralgias, back pain, joint pain, joint stiffness, joint swelling, myalgias, neck pain or other Neurologic Neurologic: Reports numbness, paresthesias and tingling; Denies abnormal gait, abnormal speech, confusion, disequilibrium, dizziness, focal weakness, headache(s), seizure-like activity, seizures, syncope, tremor(s) or other Psychiatric Psychiatric: Reports anxiety and depression; Denies homicidal ideation, suicidal ideation or other Endocrine Endocrinology: Denies change in body appearance, cold intolerance, excessive sweating, heat intolerance, polydipsia, polyuria or other Hematologic/Lymphatic Hematologic/Lymphatic: Denies anemia, easy bleeding, easy bruising, lymphadenopathy or other Allergic/Immunologic Allergic/Immunologic: Denies rhinitis, hives, eczemia, asthma or other Vital Signs Vital Signs Vital Signs: 01/04/25 23:03 01/04/25 23:06 01/04/25 23:09 Temperature 99.3 F H 99.3 F H Temperature Source Oral Oral Pulse Rate 103 H 96 Respiratory Rate 25 H 22 H Respiratory Effort Respiratory Depth Respiratory Pattern Blood Pressure 200/98 H Blood Pressure Mean 132 Pulse Ox 85 98 95 Oxygen Delivery Method Non-Rebreather Bi-pap Bi-pap Oxygen Flow Rate (L/min) 12 Fraction of Inspired Oxygen (FIO2) 01/04/25 23:10 01/04/25 23:13 01/04/25 23:37 Temperature Temperature Source Pulse Rate 93 92 Respiratory Rate 30 H 21 H Respiratory Effort Short of Breath Labored Respiratory Depth Shallow Respiratory Pattern Tachypnea Tachypnea Blood Pressure Blood Pressure Mean Pulse Ox 100 96 95 Oxygen Delivery Method Bi-pap Oxygen Flow Rate (L/min) Fraction of Inspired Oxygen (FIO2) 60 01/04/25 23:45 01/04/25 23:48 01/05/25 00:00 Temperature 99.3 F H Temperature Source Oral Pulse Rate 106 H 94 98 Respiratory Rate 25 H 22 H 23 H Respiratory Effort Respiratory Depth Respiratory Pattern Blood Pressure 146/72 H 146/72 H 162/131 H Blood Pressure Mean 87 96 142 Pulse Ox 96 95 93 Oxygen Delivery Method Bi-pap Oxygen Flow Rate (L/min) Fraction of Inspired Oxygen (FIO2) 01/05/25 00:15 01/05/25 00:30 01/05/25 00:45 Temperature 101.9 F H 102.4 F H 102.4 F H Temperature Source Core Core Core Pulse Rate 109 H 92 90 Respiratory Rate 22 H 6 L 23 H Respiratory Effort Respiratory Depth Respiratory Pattern Blood Pressure 146/74 H 161/77 H 142/78 H Blood Pressure Mean 95 99 95 Pulse Ox 98 95 94 Oxygen Delivery Method Oxygen Flow Rate (L/min) Fraction of Inspired Oxygen (FIO2) 01/05/25 01:00 01/05/25 01:00 01/05/25 01:10 Temperature 102.2 F H 102.2 F H Temperature Source Core Core Pulse Rate 95 95 98 Respiratory Rate 19 H 19 H 26 H Respiratory Effort Respiratory Depth Respiratory Pattern Tachypnea Blood Pressure 132/63 H Blood Pressure Mean 81 Pulse Ox 93 93 92 Oxygen Delivery Method Oxygen Flow Rate (L/min) Fraction of Inspired Oxygen (FIO2) 45 01/05/25 01:15 Temperature 101.5 F H Temperature Source Core Pulse Rate 103 H Respiratory Rate 22 H Respiratory Effort Respiratory Depth Respiratory Pattern Blood Pressure 121/64 H Blood Pressure Mean 83 Pulse Ox 97 Oxygen Delivery Method Bi-pap Oxygen Flow Rate (L/min) Fraction of Inspired Oxygen (FIO2) Weight Weight: 173.4 kg Body Mass Index (BMI) 63.6 Physical Exam Const alert; Negative for average body habitus or healthy appearing Constitutional Narrative: Super morbidly obese, white female, sitting up in bed, on BiPAP, awake and intermittently interactive, appears ill General Appearance: cooperative Orientation / Consciousness: lethargic HEENT normocephalic, head/scalp atraumatic and hearing grossly normal bilaterally HEENT Narrative: Mucous membranes are dry, Mallampati is 4, dentition is poor Eyes conjunctivae normal Eyes Narrative: No scleral icterus Neck supple Neck Narrative: Neck is short and thick Resp No normal respiratory effort and No clear to auscultation bilaterally Resp Narrative: Coarse breath sounds bilaterally with tachypnea, currently on BiPAP with no signs of extremis, no respiratory accessory muscle use and no retractions Auscultation: rhonchi; Negative for crackles, rales or wheezes Cardio regular rate, regular rhythm, S1 normal heart sound, S2 normal heart sound, no murmurs, no rub, no gallops and no clicks Cardio Narrative: Heart tones are distant due to body habitus GI normal to inspection, nondistended, normoactive bowel sounds, soft to palpation and non-tender GI Narrative: Large protuberant abdomen Extremity Extremity Narrative: Lower extremity erythema consistent with chronic venous stasis changes, trace pitting edema bilateral lower extremities, no clubbing or cyanosis Skin Skin Narrative: Bilateral lower extremity skin changes consistent with chronic venous stasis, intertrigo candidiasis is noted under pannus Neuro moves all extremities and no focal motor deficits Neuro Narrative: Significant generalized weakness and fatigue but no focal deficits unable to assess speech currently as patient is on BiPAP Psych Psych Narrative: Currently appears calm Results Lab / Micro Data 01/05/25 04:20 01/05/25 04:20 Labs: Laboratory Results - last 24 hr 01/04/25 23:10: WBC 18.8 H, RBC 5.28, Hgb 13.9, Hct 46.5, MCV 88.1, MCH 26.3 L, MCHC 29.9 L, RDW Std Deviation 45.9 H, RDW Coeff of Ramy 14.2, Plt Count 235, MPV 10.2, Immature Gran % (Auto) 0.600, Neut % (Auto) 90.0 H, Lymph % (Auto) 4.8 L, [place] % (Auto) 3.9, Eos % (Auto) 0.1, Baso % (Auto) 0.6, Absolute Neuts (auto) 16.9 H, Absolute Lymphs (auto) 0.91, Nucleated RBC % 0, Sodium 140, Potassium 4.3, Chloride 93 L, Carbon Dioxide 37.0 H, Anion Gap 11, BUN 18, Creatinine 0.89, Estim Creat Clear Calc 112.64, Est GFR (MDRD) Non-Af 75, BUN/Creatinine Ratio 20.3 H, Glucose 236 H, Calcium 9.5, NT pro BNP II 594, Procalcitonin 0.06 01/04/25 23:17: Lactic Acid 2.7 H* 01/05/25 00:02: Urine Color Yellow, Urine Clarity Clear, Urine pH 6.5, Ur Specific [place] 1.015, Urine Protein 500 H, Urine Glucose (UA) 50 H, Urine Ketones Negative, Urine Occult Blood 150 H, Urine Nitrite Negative, Urine Bilirubin Negative, Urine Urobilinogen Normal, Ur Leukocyte Esterase Negative, Urine RBC 5-10 SEEN, Urine WBC 0-5 SEEN, Ur Squamous Epith Cells 0-5 SEEN, Urine Bacteria 0 SEEN, Urine Mucus 0 SEEN Micro: Microbiology 01/04/25 23:20 Mucosa - Nose SARS-CoV-2, Influenza & RSV (PCR) - Final ABG Data ABG results: ABG 01/04/25 01/05/25 23:26 00:56 Specimen Type ART ART Sample Site R Radial R Radial pH 7.36 7.41 Bicarbonate Actual 40.8 H 41.9 H Total CO2 43 44 Base Excess 15 H 17 H O2 Saturation 95 90 L O2 % 15.0 30.0 ABG pCO2 71.7 H* 65.8 H ABG pO2 83 62 L Graeme Test Positive Positive O2 Delivery Device NRB BiPAP Vent Mode Not entered Not entered Crit Call To/Read Back Yes Blood Gas Notified Whom Andes Blood Gas Notified Time 23:27:45 Clinical Comments Imaging Radiology Impression Chest X-Ray 01/04/25 23:42 IMPRESSION: As above. Reading Location: [facility] Assessment & Plan Assessment/Plan (1) Sepsis: (2) Fever: (3) Leukocytosis: (4) Lactic acidosis: (5) Acute on chronic respiratory failure with hypoxia and hypercapnia: PLAN: Plan Sepsis secondary to suspected pulmonary infection viral versus bacterial pneumonia - Patient was treated conservatively with IV fluids given BMI of 63 and given fluids based on ideal body weight which equates to 2 L - Meets criteria as noted below on sepsis attestation - Sputum/blood/urine cultures are pending - COVID/flu/RSV negative but respiratory viral panel are pending - Zosyn and vancomycin initiated emergency department will continue - Monitor blood pressure closely as she is significantly lower than what appears to be her baseline - Await cultures and narrow antibiotics - Check MRSA PCR - Check strep pneumo and Legionella antigens - Will hold off on steroids at this point given her severe DM-2 and evaluate clinically - Pulm/critical care medicine was consulted Acute on chronic hypoxic and hypercapnic respiratory failure secondary to suspected viral versus bacterial pneumonia - pH on presentation ABG was 7.36 with a pCO2 in the 70s, she was tachypneic, hypoxic on her baseline oxygen at 74%, tachycardic and febrile - PaO2 FiO2 ratio is 137 - Placed on BiPAP with improvement in ABG closer to what appears to be her baseline - Will continue BiPAP through the night - Will need ongoing BiPAP nocturnally and at at bedtime once weaned off continuous - Aggressive aerosols - Will treat with vancomycin and Zosyn - COVID/flu/RSV is negative - Check respiratory viral panel - Aggressive pulmonary toilet with scheduled and as needed nebulizers - Mucinex - Pulmonary consult Leukocytosis - As noted above - 18.8 on presentation - Cultures are pending - Continue antibiotics Lactic acidosis - Suspect related to sepsis and hypoxia - Cycle per protocol Intertrigo candidiasis - Topical nystatin - Consult wound nurse Chronic hypoxic respiratory failure secondary to COPD/OHS - Dependent on 4 L at baseline - Sats on presentation were 74% on her baseline oxygen at 4 L - Respiratory care as noted above KELLIE - BiPAP as ordered above Essential hypertension - Blood pressures are normal but significantly lower than what appears to be her baseline - Given sepsis concerns will hold home antihypertensives and trend blood pressures with reinitiation accordingly - Continue home atorvastatin if verified -As needed hydralazine for systolic pressure greater than 160 DM-2 -Previously was not well-controlled with last hemoglobin A1c in our chart at 10 but this was from 2019 - Home insulin is unclear at this time however per fill last basal insulin order was for 83 units--> given unclear how much patient will eat and restricted carbohydrate diet will start with 60 units and monitor blood sugars closely - Prandial insulin is still pending and unclear - Once verified will reinitiate - SSI high-dose as I do suspect her blood sugars will run high - Check hemoglobin A1c Diabetic neuropathy - Continue home gabapentin GERD - Reinitiate PPI if verified Depression/anxiety - Resume initiate antidepressants if verified Super morbid obesity - BMI is 63.6 - Recommend weight loss - Complicates treatment, prognosis, outcomes DVT prophylaxis - Subcu Lovenox 40 twice daily given BMI CODE STATUS - Full code as verified at admission Sepsis Attestation Sepsis Alert: Yes Sepsis Attestation: Agree w/Sepsis Date exam was performed: 01/05/25 Time exam was performed: 01:30 Possible Source of Sepsis: Pulmonary Sepsis Organ Dysfunction Criteria Present: SBP decrease of more than 40 mmHg, Acute Respiratory Failure (New need for BiPAP/CPAP or MV), Lactic Acid > 2 mmol/L and PaO2/FiO2 ratio < 300 (137) Fluid Resuscitation Fluid resuscitation indicated?: Yes Fluid Resuscitation ordered: Lesser volume fluid bolus ordered Amount of fluid ordered: 2,000 Reason for lesser fluid bolus:: Concern for fluid overload and Heart failure Sepsis Note Date exam was performed: 01/05/25 Time exam was performed: 05:11 Sepsis Attestation: Sepsis re-evaluation was performed (Patient was not truly hypotensive and remained stable hemodynamically. No need for vasopressors.) Charges/Coding Visit Charges Inpatient E&M: 22915 Init Hosp L3
--- NOTE | 2025-01-05 01:36 | EX.ED.DYSGE1 ---
HPI History of Present Illness Chief Complaint: Fall Informant: patient and EMS Narrative Narrative: Patient is a 59-year-old female with past medical history of hypertension insulin-dependent diabetes COPD secondary to tobacco abuse with need for 4 L nasal cannula oxygen 06/09 and morbid obesity. EMS reports that they were called to her house earlier today because she had fallen and could not get back up. They were able to help her up to her chair and her vitals are stable and she had no obvious signs of trauma so she was left at home. Reportedly she tried to get up out of the chair a few hours later and could not do so so EMS was contacted once again. When they arrived they noted she was too weak to stand and as she is not able to care for herself was brought to the hospital for evaluation. EMS reports that her pulse ox was in the 80s on her 4 L and therefore she was transition to a nonrebreather. Upon arrival to the ER the pulse ox remains low in the 80s. She is obtunded but will awake to voice. She states she simply feels tired. She denies any significant pain and denies any known sick contacts. [facility] Medical History GERD (gastroesophageal reflux disease) Neuropathy Anxiety and depression Chronic respiratory failure Urinary calculus Sleep apnea Panic disorder Microalbuminuria IBS (irritable bowel syndrome) HTN (hypertension) Type 2 diabetes mellitus Degenerative disc disease Tobacco dependence syndrome Morbid obesity Home Medications ?Medication ?Instructions ?Recorded ?Last Taken ?Type atenolol 50 mg tablet 50 mg PO DAILY BP 03/04/15 04/28/20 08:00 History furosemide 40 mg tablet 40 mg PO DAILY water retention 03/04/15 04/28/20 08:00 History gabapentin 300 mg capsule 300 mg PO TID nerve pain 03/04/15 04/28/20 17:00 History lisinopril 20 2 tab PO DAILY BP 03/04/15 04/28/20 08:00 History mg-hydrochlorothiazide 12.5 mg tablet venlafaxine 150 mg 150 mg PO DAILY mood 03/04/15 04/28/20 08:00 History capsule,extended release 24 hr albuterol sulfate 90 mcg/actuation 2 inh inhalation Q4H PRN Wheezing 12/26/18 Unknown History breath activated powder inhaler aspirin 81 mg tablet,delayed 81 mg PO DAILY heart health 12/26/18 04/28/20 08:00 History release (Adult Low Dose Aspirin) atorvastatin 40 mg tablet 40 mg PO QHS cholesterol 12/26/18 04/27/20 22:00 History dulaglutide 1.5 mg/0.5 mL 1.5 mg subcut FR diabetes 12/26/18 04/24/20 12:00 History subcutaneous pen injector (Trulicity) ibuprofen 800 mg tablet 800 mg PO Q6H PRN Pain Or Fever 12/26/18 Unknown History potassium chloride 10 mEq 20 meq PO DAILY supplement 12/26/18 04/28/20 08:00 History tablet,extended release (K-Tab) insulin degludec 100 unit/mL (3 83 unit SQ BID diabetes 09/01/19 04/28/20 17:00 History mL) subcutaneous pen buspirone 5 mg tablet 5 mg PO TID mood 04/28/20 04/28/20 17:00 History insulin lispro 100 unit/mL 40 unit SQ LUNCH diabetes 04/28/20 04/28/20 12:00 History subcutaneous pen insulin lispro 100 unit/mL 64 unit SQ BREAKFAST diabetes 04/28/20 04/28/20 08:00 History subcutaneous pen insulin lispro 100 unit/mL 94 unit subcut QHS diabetes 04/28/20 04/28/20 17:00 History subcutaneous pen sulfamethoxazole 800 1 tablet PO BID #10 TABLETS 04/30/20 Unknown Rx mg-trimethoprim 160 mg tablet insulin lispro 100 unit/mL 3 unit subcut DAILY 02/25/23 Unknown History subcutaneous half-unit pen (Humalog Zafar KwikPen (U-100)) insulin lispro 100 unit/mL 63 unit subcut DAILY 02/25/23 Unknown History subcutaneous half-unit pen (Humalog Zafar KwikPen (U-100)) insulin lispro 100 unit/mL 93 unit subcut QHS 02/25/23 Unknown History subcutaneous half-unit pen (Humalog Zafar KwikPen (U-100)) metformin 500 mg tablet,extended 1,000 mg PO BID 02/25/23 Unknown History release 24 hr omeprazole 20 mg capsule,delayed 20 mg PO DAILY 02/25/23 Unknown History release venlafaxine 75 mg capsule,extended 75 mg PO DAILY 02/25/23 Unknown History release 24 hr azithromycin 500 mg tablet 500 mg PO DAILY 3 days #3 tabs 02/27/23 Unknown Rx cefdinir 300 mg capsule 300 mg PO BID #10 caps 02/27/23 Unknown Rx cefdinir 300 mg capsule 300 mg PO BID #10 caps 02/27/23 Unknown Rx cefdinir 300 mg capsule 300 mg PO BID #10 caps 02/27/23 Unknown Rx prednisone 20 mg tablet 20 mg PO BID #10 tabs 02/27/23 Unknown Rx cephalexin 500 mg capsule 500 mg PO Q6 #40 CAPSULES 07/01/23 Unknown Rx hydrocodone-acetaminophen 5-325mg 1 tab PO Q6H PRN pain 5 days #14 09/04/23 Unknown Rx 5mg-325mg tabs Allergy/AdvReac Type Severity Reaction Status Date / Time tetanus and diphtheria Allergy Unknown swollen Verified 07/01/23 19:21 toxoids glands in neck that didn't decrease ketorolac tromethamine (From Allergy vivid Verified 07/01/23 19:21 Toradol) dreams morphine Allergy Itching Verified 07/01/23 19:21 Family History Aunt Diabetes Father Heart disease Sister Heart disease Grandfather Colon cancer Unknown Breast cancer Surgical History repair of r arm fx Hx of cholecystectomy History of renal stent H/O lithotripsy H/O dilation and curettage Hx of partial nephrectomy Social History household members: spouse Smoking Status: Former smoker quit status: considering quitting alcohol intake: never substance use type: does not use ROS ROS ED Constitutional Constitutional ED: Reports other Details: Positive fatigue ; Denies chills or fever(s) ENT ENT ED: Denies rhinorrhea or sore throat Cardiovascular Cardiovascular: Denies chest pain Respiratory/Chest Respiratory/Chest: Reports cough and dyspnea Gastrointestinal Gastrointestinal: Denies abdominal pain, diarrhea, nausea or vomiting Genitourinary Genitourinary ED: Denies dysuria Musculoskeletal Musculoskeletal: Reports myalgias Integumentary Denies rash Neurologic Neurologic: Reports weakness; Denies headache(s) Hematologic/Lymphatic Hematologic/Lymphatic: Denies easy bleeding or easy bruising EXAM Physical Exam Const Vital Signs: 01/04/25 23:03 01/04/25 23:06 01/04/25 23:09 Temperature 99.3 F H 99.3 F H Temperature Source Oral Oral Pulse Rate 103 H 96 Respiratory Rate 25 H 22 H Respiratory Effort Respiratory Depth Respiratory Pattern Blood Pressure 200/98 H Blood Pressure Mean 132 Pulse Ox 85 98 95 Oxygen Delivery Method Non-Rebreather Bi-pap Bi-pap Oxygen Flow Rate (L/min) 12 Fraction of Inspired Oxygen (FIO2) 01/04/25 23:10 01/04/25 23:13 01/04/25 23:37 Temperature Temperature Source Pulse Rate 93 92 Respiratory Rate 30 H 21 H Respiratory Effort Short of Breath Labored Respiratory Depth Shallow Respiratory Pattern Tachypnea Tachypnea Blood Pressure Blood Pressure Mean Pulse Ox 100 96 95 Oxygen Delivery Method Bi-pap Oxygen Flow Rate (L/min) Fraction of Inspired Oxygen (FIO2) 60 01/04/25 23:45 01/04/25 23:48 01/05/25 00:00 Temperature 99.3 F H Temperature Source Oral Pulse Rate 106 H 94 98 Respiratory Rate 25 H 22 H 23 H Respiratory Effort Respiratory Depth Respiratory Pattern Blood Pressure 146/72 H 146/72 H 162/131 H Blood Pressure Mean 87 96 142 Pulse Ox 96 95 93 Oxygen Delivery Method Bi-pap Oxygen Flow Rate (L/min) Fraction of Inspired Oxygen (FIO2) 01/05/25 00:15 01/05/25 00:30 01/05/25 00:45 Temperature 101.9 F H 102.4 F H 102.4 F H Temperature Source Core Core Core Pulse Rate 109 H 92 90 Respiratory Rate 22 H 6 L 23 H Respiratory Effort Respiratory Depth Respiratory Pattern Blood Pressure 146/74 H 161/77 H 142/78 H Blood Pressure Mean 95 99 95 Pulse Ox 98 95 94 Oxygen Delivery Method Oxygen Flow Rate (L/min) Fraction of Inspired Oxygen (FIO2) 01/05/25 01:00 01/05/25 01:00 01/05/25 01:10 Temperature 102.2 F H 102.2 F H Temperature Source Core Core Pulse Rate 95 95 98 Respiratory Rate 19 H 19 H 26 H Respiratory Effort Respiratory Depth Respiratory Pattern Tachypnea Blood Pressure 132/63 H Blood Pressure Mean 81 Pulse Ox 93 93 92 Oxygen Delivery Method Oxygen Flow Rate (L/min) Fraction of Inspired Oxygen (FIO2) 45 01/05/25 01:15 01/05/25 01:35 01/05/25 02:04 Temperature 101.5 F H 100.8 F H Temperature Source Core Pulse Rate 103 H 91 89 Respiratory Rate 22 H 20 H 20 H Respiratory Effort Respiratory Depth Respiratory Pattern Blood Pressure 121/64 H 119/56 L 106/57 L Blood Pressure Mean 83 77 73 Pulse Ox 97 96 90 Oxygen Delivery Method Bi-pap Bi-pap Oxygen Flow Rate (L/min) Fraction of Inspired Oxygen (FIO2) Positive well nourished, well developed and obese Constitutional Narrative: Patient is obtunded but will awake to voice and is protecting her airway General Appearance ED: well developed Nutritional Appearance: obese HEENT HEENT Narrative: Normocephalic atraumatic No tongue or lip swelling no oral lesions no airway edema or compromise No secondary findings of infection in the posterior pharynx Eyes PERRL and EOMs intact bilaterally General Eye ED: Negative for scleral icterus Neck supple Neck Narrative: No nuchal rigidity or meningeal signs noted No obvious JVD noted Chest Wall palpation of chest normal Chest Narrative: No bony deformity or subcutaneous emphysema present Resp Resp Narrative: Patient is an mild to moderate respiratory distress with tachypnea and accessory muscle use Breath sounds are diminished throughout with diffuse rhonchi and crackles in the bilateral bases as well as expiratory wheeze noted Cardio regular rhythm Rate: tachycardic and other Other Details: Tachycardic rate with regular rhythm Radial and carotid pulses are equal and symmetric GI non-tender, non-distended and no masses GI Narrative: Abdomen is obese soft nontender and nondistended with hypoactive bowel sounds No voluntary guarding or rigidity or pulsatile mass Auscultation: hypoactive bowel sounds Palpation: soft Extremity Extremity Narrative: +1 pitting edema to the bilateral lower extremities that is equal and symmetric Chronic stasis changes are present as well consistent with history of diabetes No overlying skin changes to suggest infection Neuro oriented x3 and CN's II-XII intact bilaterally Neuro Narrative: Patient is obtunded but will awake to voice and when she does so she answers questions appropriately No focal neurologic deficit noted Sensorium / Orientation: alert Psych Mood & Affect: depressed Skin Skin Narrative: Chronic stasis changes to bilateral lower legs without secondary findings to suggest infection Sepsis Attestation Sepsis Attestation: Agree w/Sepsis Possible Source of Sepsis: Pulmonary Sepsis Organ Dysfunction Criteria Present: Acute Respiratory Failure (New need for BiPAP/CPAP or MV), Lactic Acid > 2 mmol/L and PaO2/FiO2 ratio < 300 Fluid Resuscitation Fluid resuscitation indicated?: Yes Fluid Resuscitation ordered: Lesser volume fluid bolus ordered Amount of fluid ordered: 1,000 Reason for lesser fluid bolus:: Concern for fluid overload and Heart failure MDM MDM MDM Narrative Medical decision making narrative: Patient arrived to the ER in mild to moderate respiratory distress with tachypnea and accessory muscle use and pulse ox was in the low 80s despite a nonrebreather. With concern for pulmonary edema/CHF exacerbation versus pneumonia versus hypoxemic and hypercarbic respiratory failure she was placed on BiPAP. A viral swab was obtained to check for COVID influenza or RSV as a potential cause. Basic blood work was obtained to check for acute kidney injury or electrolyte abnormality. With her fever and weakness this could also be related to the UTI so urine sample was obtained. Urine sample showed no sign of infection. Viral swab was negative as well. Chest x-ray revealed findings concerning for CHF and/or infiltrate. With the patient having elevation to her white count at 19 and left shift as her lactic acid is elevated at 2.7 and her neutrophil count is also elevated at 17 this would correlate with infection. The patient's temperature is also elevated at approximately 102. Secondary to this she does trigger septic criteria. With concern for volume overload based on the x-ray concerning for CHF she was only given 1 L of fluid. She was started on vancomycin and Zosyn with concern for systemic infection. The initial and then repeat blood gas showed the patient is remaining stable on BiPAP and she is more awake and alert at this time with decreased work of breathing indicating no need for intubation. However as she is showing septic changes she will need admitted to the ICU for continued monitoring and care. Therefore this case was discussed with hospitalist who agrees with this plan of action and will accept her to her service for continued evaluation and treatment History & Record Review Discussion w/independent historian: EMS personnel and Patient Lab Data Attestation: I reviewed the patient's lab results. Labs: Laboratory Results - last 24 hr 01/04/25 01/04/25 01/05/25 23:10 23:17 00:02 WBC 18.8 H RBC 5.28 Hgb 13.9 Hct 46.5 MCV 88.1 MCH 26.3 L MCHC 29.9 L RDW Std Deviation 45.9 H RDW Coeff of Ramy 14.2 Plt Count 235 MPV 10.2 Immature Gran % (Auto) 0.600 Neut % (Auto) 90.0 H Lymph % (Auto) 4.8 L [place] % (Auto) 3.9 Eos % (Auto) 0.1 Baso % (Auto) 0.6 Absolute Neuts (auto) 16.9 H Absolute Lymphs (auto) 0.91 Nucleated RBC % 0 Sodium 140 Potassium 4.3 Chloride 93 L Carbon Dioxide 37.0 H Anion Gap 11 BUN 18 Creatinine 0.89 Estim Creat Clear Calc 112.64 Est GFR (MDRD) Non-Af 75 BUN/Creatinine Ratio 20.3 H Glucose 236 H Lactic Acid 2.7 H* Calcium 9.5 NT pro BNP II 594 Procalcitonin 0.06 Urine Color Yellow Urine Clarity Clear Urine pH 6.5 Ur Specific [place] 1.015 Urine Protein 500 H Urine Glucose (UA) 50 H Urine Ketones Negative Urine Occult Blood 150 H Urine Nitrite Negative Urine Bilirubin Negative Urine Urobilinogen Normal Ur Leukocyte Esterase Negative Urine RBC 5-10 SEEN Urine WBC 0-5 SEEN Ur Squamous Epith Cells 0-5 SEEN Urine Bacteria 0 SEEN Urine Mucus 0 SEEN ABG Data ABG results: ABG 01/04/25 01/05/25 23:26 00:56 Specimen Type ART ART Sample Site R Radial R Radial pH 7.36 7.41 Bicarbonate Actual 40.8 H 41.9 H Total CO2 43 44 Base Excess 15 H 17 H O2 Saturation 95 90 L O2 % 15.0 30.0 ABG pCO2 71.7 H* 65.8 H ABG pO2 83 62 L Graeme Test Positive Positive O2 Delivery Device NRB BiPAP Vent Mode Not entered Not entered Crit Call To/Read Back Yes Blood Gas Notified Whom Andes Blood Gas Notified Time 23:27:45 Clinical Comments Radiography Diagnostic Testing: Clinical Impression(s) from Imaging Studies Chest X-Ray 01/04/25 23:42 IMPRESSION: As above. Reading Location: [id number] Chest x-ray as interpreted by the emergency medicine physician reveals cardiomegaly with pulmonary vascular congestion and hazy opacities in the bilateral lower lobes concerning for developing pneumonia Management Discussion w/another healthcare provider: Hospitalist Discharge Plan Dx/Rx/DC Orders Clinical Impression: Pneumonia, Sepsis, Hypoxia, Tobacco abuse, Acute on chronic respiratory failure with hypoxia and hypercapnia, Insulin dependent type 2 diabetes mellitus, Morbid obesity, Pyrexia, Generalized weakness Disposition Disposition: Acute Care Hospital [facility] Discharge Date/Time: 01/05/25 03:31
--- OUTSIDE RECORDS SUMMARY | 2025-01-05 03:00 | XMS RPT_ITS | CCD ---
Author Organization [facility] Care Team Providers Care Manager Cleaning Name Role Phone Samson Hogan MD Primary Care Provider [facility], Keti Unavailable Jovany Rizzo PA-C Primary Care Provider Samson Hogan MD Primary Care Provider [facility], Keti Unavailable Jovany Rizzo PA-C Primary Care Provider [facility], Keti Unavailable Jovany Rizzo PA-C Primary Care Provider [facility], Keti Unavailable Jovany Rizzo PA-C Primary Care Provider [facility], Keti Unavailable Dr. Samson Hogan Primary Care Provider Dr. Desmond Infante Emergency Provider Dr. Chelsi Warner Admit Provider Dr. Chelsi Warner Attending Provider Dr. Chelsi Warner Other Provider Dr. Russell Flower Attending Provider Unavailable Dr. Russell Flower Other Provider Unavailable Jovany Rizzo PA-C Primary Care Provider Samson Hogan Primary Care Unavailable Steve Lacey Attending Unavailable Chelsi Warner Admitting Unavailable Samson Hogan Primary Care Unavailable Chelsi Warner Consulting Unavailable Chelsi Warner Attending Unavailable Chelsi Warner Consulting Unavailable Samson Hogan Primary Care Unavailable Chelsi Warner Admitting Unavailable Russell Flower Attending Unavailable Russell Flower Consulting Unavailable Chelsi Warner Admitting Unavailable [place], Samson Primary Care Unavailable Chelsi Warner Consulting Unavailable Russell Flower Attending Unavailable Den Oneill Attending Unavailable [place], Samson Primary Care Unavailable Samson Hogan MD [facility] Matthias DUVAL, Rodriguez Hernandez Primary Care Provider Unavailable Haagen FRONTLOAD DRIVER[employer] ARCHITECT, Lu Unavailable Suppan FRONTLOAD DRIVER[employer] ARCHITECT, Mary A Unavailable [phone] Suppan FRONTLOAD DRIVER.[employer] ARCHITECT, Mary A Unavailable Suppan FRONTLOAD DRIVER.[employer] BPM ARCHITECT, Mary A Unavailable Haagen FRONTLOAD DRIVER.[employer] BPM ARCHITECT, Lu Primary Care Provider Unavailable Primary Care Provider UnavailSamson Barcenas MD Primary Care Provider Haagen FRONTLOAD DRIVER[employer] ARCHITECT, Lu Unavailable Suppan FRONTLOAD DRIVER.[employer] ARCHITECT, Mary A Unavailable [phone] HAAGEN, LU Primary Care Unavailable PILAR CARDOZA Attending Unavailable PILAR CARDOZA Referring Unavailable HAAGEN, LU Primary Care Unavailable [facility], SAMSON Dykes Primary Care Unavailable HAAGEN, LU Attending Unavailable [facility], SAMSON Dykes Primary Care Unavailable HAAGEN, LU Referring Unavailable SAMIRA, SAMSON Dykes Primary Care Unavailable HAAGEN, LU Attending Unavailable [facility], [facility] Primary Care Unavailable PILAR CARDOZA Referring Unavailable SAMIRA, SAMSON J Primary Care Unavailable HAAGEN, LU Referring Unavailable ROLF YEPEZ Referring Unavailabl e HAAGEN, LU Primary Care Unavailable PILAR CARDOZA Referring Unavailable HAAGEN, LU Primary Care Unavailable Samson Hogan MD Primary Care Provider Allergies Allergy Classification Reported Allergen(s) Allergy Type Date of Onset Reaction(s) Facility empagliflozin (2 sources) empagliflozin Drug Allergy 3 Itching [facility] NSAIDs (2 sources) Ketorolac Drug Allergy 8 [facility] Opioid Agonists (2 sources) Morphine Drug Allergy 1 Itching [facility] (20 sources) Ketorolac; Translations: [KETOROLAC TROMETHAMINE] Drug Allergy 8 vivid dreams [facility] Work Phone: (20 sources) Morphine; Translations: [MORPHINE] Drug Allergy 1 Itching [facility] (20 sources) Tetanus And Diphtheria Toxoids, Adsorbed, Adult; Translations: [TETANUS AND DIPHTHERIA TOXOIDS, ADSORBED, ADULT] Drug Allergy 3 Other: See Comments [facility] Work Phone: (20 sources) empagliflozin; Translations: [EMPAGLIFLOZIN] Drug Allergy 3 Itching [facility] (3 sources) tetanus and diphtheria toxoids; Translations: [tetanus and diphtheria toxoids] Allergy to substance 4 swollen glands in neck that didn't decrease [facility] (1 source) Ketorolac Drug Allergy 4 [facility] (1 source) Morphine Drug Allergy 4 [facility] Medications Current Medications Medication Drug Class(es) Dates Sig (Normalized) Sig (Original) [id number] 200 actuat albuterol 0.09 mg/actuat metered dose inhaler (20 sources) beta2-Adrenergic Agonist Start: 03-11-2022 End: 08-11-2023 take 2 puff(s) by inhalation every four hours as needed albuterol HFA (PROVENTIL HFA, VENTOLIN HFA) 90 mcg/actuation inhaler Indications: Chronic obstructive pulmonary disease, unspecified COPD type (HCC) Inhale 2 Puffs as instructed every 4 hours as needed. 1 Each 5 08/11/2023 Active Start: 01-14-2020 End: 07-16-2021 take 2 puff(s) by inhalation every four hours as needed albuterol HFA (PROVENTIL HFA, VENTOLIN HFA) 90 mcg/actuation inhaler Indications: Wheezing Inhale 2 Puffs as instructed every 4 hours as needed. 6.7 g 1 01/14/2020 07/16/2021 Discontinued (Course of therapy completed) Start: 12-26-2018 Albuterol Sulf ate Active 2 INH INHALATION Q4H December 26, 2018 12:00am Comment on above: Inhale 2 Puffs as in structed every 4 hours as needed. atenolol 100 mg oral tablet (20 sources) beta-Adrenergic Asha Start: 08-08-2024 End: 08-08-2024 take 1 tablet by mouth once daily atenolol (TENORMIN) 100 mg tablet Take 1 tablet by mouth once daily. 90 tablet 1 08/08/2024 Active Start: 06-06-2024 End: 08-08-2024 take 1 tablet by mouth once daily atenolol (TENORMIN) 25 mg tablet Take 1 tablet by mouth once daily. Take with 50 mg tablet for total daily dose of 75 mg. 90 tablet 3 06/06/2024 08/08/2024 Discontinued Start: 03-04-2015 End: 09-11-2024 take 1 tablet by mouth once daily atenolol (TENORMIN) 50 mg tablet Indications: Essential hypertension Take 1 tablet by mouth once daily. 30 tablet 07/13/2024 08/08/2024 Discontinued Comment on above: Take 1 tablet by jeni th once daily. azithromycin 500 mg oral tablet (1 source) Macrolide Antimicrobial Start: 02-27-19 take 500 mg by mouth once daily Azithromycin Active 500 MG PO DAILY 3 February 27, 2023 12:00am busPIRone hydrochloride 7.5 mg oral tablet (20 sources) Start: 06-07-19 End: 10-05-19 take 1 tablet by mouth three times daily busPIRone (BUSPAR) 7.5 mg tablet Indications: Anxiety Take 1 tablet by mouth three times a day. 90 tablet 10/04/2024 Active Start: 01-14-2020 End: 06-14-2024 take 1 tablet by mouth three times daily busPIRone (BUSPAR) 5 mg tablet Indications: Anxiety Take 1 tablet by mouth three times a day. 90 tablet 05/15/2024 06/06/2024 Discontinued Comment on above: Take 1 tablet by jeni th three times daily. Take 1 tablet by jeni th three times a day. cefdinir 300 mg oral capsule (3 sources) Cephalosporin Antibacterial Start: take 300 mg by mouth twice daily Cefdinir Active 300 MG PO TWICE A DAY February 27, 2023 12:00am cephalexin 500 mg oral capsule (20 sources) Cephalosporin Antibacterial Start: 3 End: 3 take 1 capsule by mouth twice daily cephALEXin (KEFLEX) 500 mg capsule Take 1 capsule by mouth twice daily for 10 days. 20 capsule 0 07/23/2022 08/02/2022 Active Start: 07-10-2021 take 1 capsule by mo uth twice daily cephALEXin (KEFLEX) 500 mg capsule Indications: Acute maxillary sinusitis, recurrence not specified Take 1 capsule by mouth twice daily. 20 capsule 0 07/10/2021 Active Comment on above: Take 1 capsule by mo uth twice daily. Take 1 capsule by mo uth twice daily for 10 days. COMPOUNDED PRESCRIPTION (20 sources) Start: 07-27-2018 COMPOUNDED PRESCRIPTION Indications: Venous insufficiency C-PAP MASK HOSES, FILTERS 1 Each 07/27/2018 Active Start: 07-27-2018 COMPOUNDED PRE SCRIPTION Indications: Venous insufficiency C- PAP MASK HOSES, FILTERS 1 Each 0 07/27/2018 Active Start: 04-14-2017 COMPOUNDED PRE SCRIPTION Indications: Venous insufficiency COMPRESSION STOCKINGS 20-30 mm Knee high. DX: venous insufficiency 1 Each 04/14/2017 Active Start: 04-14-2017 COMPOUNDED PRE SCRIPTION Indications: Venous insufficiency COMPRESSION STOCKINGS 20-30 mm Knee high. DX: venous insufficiency 1 Each 0 04/14/2017 Active Start: 07-15-2015 COMPOUNDED PRE SCRIPTION cpap supplies: sleep apnea 1 Each 0 07/15/2015 Active Start: 03-18-2014 COMPOUNDED PRE SCRIPTION Indications: Unspecified sleep apnea CPAP mask 1 Each 0 03/18/2014 Active Comment on above: CPAP mask cpap supplies: sleep apnea COMPRESSION STOCKING S 20-30 mm Knee high. DX: venous insufficiency C-PAP MASK HOSES, FILTERS CPAP (20 sources) Start: 10-15-2019 CPAP Indications: KELLIE (obstructive sleep apnea) 11 cm via nasal mask with 20 min ramp and humidification. 1 Device 10/15/2019 Active Start: 10-15-2019 CPAP Indicatio ns: KELLIE (obstructive sleep apnea) 11 cm via nasal mask with 20 min ramp and humidification. 1 Device 0 10/15/2019 Active Comment on above: 11 cm via nasal mask with 20 min ramp and humidification. doxycycline monohydrate 100 mg oral capsule (2 sources) Tetracycline-class Drug Start: 023 End: 023 take 1 capsule by mouth twice daily doxycycline monohydrate (MONODOX) 100 mg capsule Take 1 capsule by mouth twice daily for 10 days. 20 capsule 0 07/23/2022 08/02/2022 Active Comment on above: Take 1 capsule by [facility] twice daily for 10 days. 0.5 ml dulaglutide 1.5 mg/ml auto-injector (20 sources) GLP-1 Receptor Agonist Start: 025 End: 025 inject 0.75 mg by subcutaneous injection every week dulaglutide (TRULICITY) 0.75 mg/0.5 mL pen injector Inject 0.75 mg subcutaneously one time a week. 4 each 08/20/2024 Active Start: 12-26-2018 End: 02-12-2020 dulaglutide (TRULICITY) 1.5 mg/0.5 mL Indications: Type 2 diabetes mellitus without complication, with long-term current use of insulin ([facility]) Inject 1.5 mg subcutaneously one time a week. Inject once per week. Discard Pen After. Appointment needed for further refills 4 Pen 3 06/25/2019 02/12/2020 Discontinued flash glucose scanning reade r (FREESTYLE TERRELL 2 READER) (20 sources) Start: 09-19-2023 flash glucose scanning reader (FREESTYLE TERRELL 2 READER) Indications: Type 2 diabetes mellitus without complication, with long-term current use of insulin (HCC) 1 Each four times daily. 1 Each 09/19/2023 Active Start: 09-19-2023 flash glucose scanning reader (FREESTYLE TERRELL 2 READER) Indications: Type 2 diabetes mellitus without complication, with long-term current use of insulin (HCC) 1 Each four times daily. 1 Each 0 09/19/2023 Active Start: 09-24-2021 End: 09-19-2023 flash glucose scanning reade r (FREESTYLE TERRELL 2 READER) Indications: Type 2 diabetes mellitus without complication, with long-term current use of insulin (HCC) 1 Each four times daily. 1 Each 0 09/24/2021 09/19/2023 Discontinued Start: 09-24-2021 flash glucose scanning reader (FREESTYLE TERRELL 2 READER) Indications: Type 2 diabetes mellitus without complication, with long-term current use of insulin (HCC) 1 Each four times daily. 1 Each 0 09/24/2021 Active Comment on above: 1 Each four times da swati. flash glucose sensor (FREESTYLE TERRELL 14 DAY SENSOR) kit (13 sources) Start: 06-23-2021 End: 09-24-2021 flash glucose sensor (FREESTYLE TERRELL 14 DAY SENSOR) kit Indications: Type 2 diabetes mellitus without complication, with long-term current use of insulin (HCC) Apply new sensor every fourteen (14) days to upper arm. 6 Each 4 06/23/2021 09/24/2021 Discontinued Start: 06-23-2021 flash glucose sensor (FREESTYLE TERRELL 14 DAY SENSOR) kit Indications: Type 2 diabetes mellitus without complication, with long-term current use of insulin (HCC) Apply new sensor every fourteen (14) days to upper arm. 6 Each 4 06/23/2021 Active Start: 11-27-2019 End: 12-30-2020 flash glucose sensor (FREEST YLE TERRELL 14 DAY SENSOR) kit Indications: Type 2 diabetes mellitus without complication, with long-term current use of insulin (HCC) Use to check blood sugar 4 times daily 2 Kit 3 11/27/2019 12/30/2020 Discontinued Comment on above: Apply new sensor meaghan ry fourteen (14) days to upper arm. flash glucose sensor (FREESTYLE TERRELL 2 SENSOR) kit (20 sources) Start: 09-19-2024 flash glucose sensor (FREESTYLE TERRELL 2 SENSOR) kit Indications: Type 2 diabetes mellitus without complication, with long-term current use of insulin (HCC) Use to check blood glucose 4 times daily. 2 each 1 09/19/2024 Active Start: 03-05-2024 flash glucose sensor (FREESTYLE TERRELL 2 SENSOR) kit Indications: Type 2 diabetes mellitus without complication, with long-term current use of insulin (HCC) Use to check blood glucose 4 times daily. 2 Each 5 03/05/2024 Active Start: 09-02-2023 End: 03-05-2024 flash glucose sensor (FREEST YLE TERRELL 2 SENSOR) kit Indications: Type 2 diabetes mellitus without complication, with long-term current use of insulin (HCC) Use to check blood glucose 4 times daily. 2 Each 5 09/02/2023 03/05/2024 Discontinued Start: 09-02-2023 flash glucose sensor (FREESTYLE TERRELL 2 SENSOR) kit Indications: Type 2 diabetes mellitus without complication, with long-term current use of insulin (HCC) Use to check blood glucose 4 times daily. 2 Each 5 09/02/2023 Active Start: 10-01-2022 End: 09-02-2023 flash glucose sensor (FREEST YLE TERRELL 2 SENSOR) kit Indications: Type 2 diabetes mellitus without complication, with long-term current use of insulin (HCC) 1 Each four times daily. 6 Kit 3 10/01/2022 09/02/2023 Discontinued Start: 10-01-2022 flash glucose sensor (FREESTYLE TERRELL 2 SENSOR) kit Indications: Type 2 diabetes mellitus without complication, with long-term current use of insulin (HCC) 1 Each four times daily. 6 Kit 3 10/01/2022 Active Start: 09-24-2021 End: 10-01-2022 flash glucose sensor (FREEST YLE TERRELL 2 SENSOR) kit Indications: Type 2 diabetes mellitus without complication, with long-term current use of insulin (HCC) 1 Each four times daily. 6 Kit 3 09/24/2021 10/01/2022 Discontinued Start: 09-24-2021 flash glucose sensor (FREESTYLE TERRELL 2 SENSOR) kit Indications: Type 2 diabetes mellitus without complication, with long-term current use of insulin (HCC) 1 Each four times daily. 6 Kit 3 09/24/2021 Active Comment on above: 1 Each four times da swati. fluconazole 150 mg oral tablet (2 sources) Azole Antifungal Start: 07-29-2022 End: 07-29-2022 fluconazole (DIFLUCAN) 150 mg tablet Take 1 tablet by mouth one time only for 1 dose. Repeat in 3 days as needed. 2 tablet 0 07/29/2022 07/29/2022 Active Start: 07-22-2021 End: 07-23-2021 take 1 tablet by mouth once daily fluconazole (DIFLUCAN) 150 mg tablet Take 1 tablet by mouth once daily for 1 day. May repeat in a week if needed. 1 tablet 1 07/22/2021 07/23/2021 Comment on above: Take 1 tablet by jeni once daily for 1 day. May repeat in a week if needed. [facility] 1 dose. Repeat in 3 days as needed. 120 actuat formoterol fumarate 0.005 mg/actuat / mometasone furoate 0.05 mg/actuat metered dose inhaler (20 sources) Corticosteroid, beta2-Adrenergic Agonist Start: 05-31-19 25 take 2 puff(s) by inhalation twice daily mometasone-formoterol (DULERA) 50-5 mcg/actuation HFA aerosol inhaler Indications: Chronic obstructive pulmonary disease, unspecified COPD type ([facility]) Inhale 2 puffs as instructed two times a day. 1 each 5 05/30/2024 Active glucose 4000 mg chewable tablet (20 sources) Start: 09-01-19 glucose 4 gram chewable tablet Take 4 tablets by mouth as needed. For sugar less than 70 10 tablet 1 08/31/2017 Active Comment on above: Take 4 tablets by mo [facility] as needed. For sugar less than 70 ibuprofen 800 mg oral tablet (2 sources) Nonsteroidal Anti-inflammatory Drug Start: 12-27-19 take 800 mg by mouth every six hours Ibuprofen Active 800 MG PO EVERY 6 HOURS December 26, 2018 12:00am 3 ml insulin glargine 100 unt/ml pen injector (20 sources) Insulin Analog Start: 06-20-19 End: 11-18-19 insulin glargine (LANTUS SOLOSTAR U-100 INSULIN) 100 unit/mL (3 mL) Inject 83 Units subcutaneously two times a day. 51 mL 1 09/18/2024 11/17/2024 Active Start: 03-04-2015 End: 12-26-2018 inject 80 [IU] by subcutaneous injection twice daily Insulin Glargine Discontinued 80 UNIT SQ TWICE A DAY March 04, 2015 12:00am December 26, 2018 11:55am 3 ml insulin lispro 200 unt/ml pen injector (20 sources) Insulin Analog Start: 08-02-2024 insulin lispro (HUMALOG) 200 unit/mL (3 mL) injection Indications: Type 2 diabetes mellitus without complication, with long-term current use of insulin ([facility]) 63 units am, 3 units afternoon, 94 units before evening meal 60 mL 2 08/02/2024 Active Start: 02-25-2023 Insulin Lispro (Humalog Zafar Kwikpen U-100) 100 unit/mL insulin pen, half-unit Active 63 UNIT SC DAILY February 25, 2023 12:00am Start: 02-25-2023 Insulin Lispro (Humalog Zafar Kwikpen U-100) 100 unit/mL insulin pen, half-unit Active 3 UNIT SC DAILY February 25, 2023 12:00am Start: 02-25-2023 Insulin Lispro (Humalog Zafar Kwikpen U-100) 100 unit/mL insulin pen, half-unit Active 93 UNIT SC AT BEDTIME February 25, 2023 12:00am Start: 07-29-2022 End: 07-31-2024 insulin lispro (HUMALOG) 200 unit/mL (3 mL) injection Indications: Type 2 diabetes mellitus without complication, with long-term current use of insulin (HCC) 63 units am, 3 units afternoon, 94 units before evening meal 60 mL 2 08/02/2024 Active Start: 07-21-2022 End: 07-29-2022 insulin lispro (HUMALOG) 200 unit/mL (3 mL) injection Indications: Type 2 diabetes mellitus without complication, with long-term current use of insulin (HCC) 60 units am and 90 units pm 0 07/29/2022 Active Start: 06-18-2022 End: 07-21-2022 inject 4 [IU] by subcutaneous injection three times daily before mealtime insulin lispro (HUMALOG) 200 unit/mL (3 mL) injection Indications: Type 2 diabetes mellitus without complication, with long-term current use of insulin (HCC) Inject 4 Units subcutaneously three times daily before meals. And sliding scale coverage: Lispro insulin coverage 500 go to ER 4 Each 2 06/18/2022 07/21/2022 Discontinued (Adjust Sig - Block E-Cancel) Start: 05-27-2022 End: 06-15-2022 inject 2 [IU] by subcutaneous injection three times daily before mealtime insulin lispro (HUMALOG) 200 unit/mL (3 mL) injection Indications: Type 2 diabetes mellitus without complication, with long-term current use of insulin (HCC) Inject 2 Units subcutaneously three times daily before meals. And sliding scale coverage: Lispro insulin coverage 500 go to ER 4 Each 2 06/15/2022 Active Start: 06-16-2021 End: 05-27-2022 inject 66 [IU] by subcutaneous injection at breakfast, then inject 40 [IU] by subcutaneous injection at lunch, then inject 94 [IU] by subcutaneous injection at dinner insulin lispro (HUMALOG) 200 unit/mL (3 mL) injection Indications: Type 2 diabetes mellitus without complication, with long-term current use of insulin (HCC) Inject subcutaneously 66 units with breakfast, 40 units with lunch and 94 units with dinner 4 Each 2 04/15/2022 05/21/2022 Discontinued (Adjust Sig - Block E-Cancel) Start: 04-27-2021 inject 66 [IU] by love bcutaneous injection at breakfast, then inject 40 [IU] by subcutaneous injection at lunch, then inject 94 [IU] by subcutaneous injection at dinner insulin lispro (HUMALOG) 200 unit/mL (3 mL) injection Indications: Type 2 diabetes mellitus without complication, with long-term current use of insulin (HCC) Inject subcutaneously 66 units with breakfast, 40 units with lunch and 94 units with dinner 15 Pen 0 04/27/2021 Active Start: 04-28-2020 inject 64 [IU] by love bcutaneous injection at breakfast Insulin Lispro Active 64 UNIT SQ WITH BREAKFAST April 27, 2020 11:00pm 62/40/94 Start: 04-28-2020 Insulin Lispro Active 40 UNIT SQ WITH LUNCH April 27, 2020 11:00pm takes at noon Start: 04-28-2020 Insulin Lispro Active 94 UNIT SC AT BEDTIME April 27, 2020 11:00pm Start: 01-04-2020 End: 02-05-2020 inject 66 [IU] by subcutaneous injection at breakfast, then inject 40 [IU] by subcutaneous injection at lunch, then inject 94 [IU] by subcutaneous injection at dinner insulin lispro (HUMALOG) 200 unit/mL (3 mL) injection Indications: Type 2 diabetes mellitus without complication, with long-term current use of insulin (HCC) Inject subcutaneously 66 units with breakfast, 40 units with lunch and 94 units with dinner 10 Pen 01/04/2020 02/05/2020 Discontinued Comment on above: Inject subcutaneousl y 66 units with breakfast, 40 units with lunch and 94 units with dinner Inject subcutaneousl y 66 units with breakfast, 40 units with lunch and 84 units with dinner Hold above, coverage : Lispro insulin coverage < 200 no coverage 201-250 2u 251-300 3u 301-350 5u 351-400 8u 451-500 12u > 500 go to ER Inject 2 Units subcu taneously three times daily before meals. And sliding scale coverage: Lispro insulin coverage < 200 no coverage 201-250 2u 251-300 3u 301-350 5u 351-400 8u 451-500 12u > 500 go to ER Inject 4 Units subcu taneously three times daily before meals. And sliding scale coverage: Lispro insulin coverage < 200 no coverage 201-250 2u 251-300 3u 301-350 5u 351-400 8u 451-500 12u > 500 go to ER Inject 8 Units subcu taneously three times daily before meals. And sliding scale coverage: Lispro insulin coverage < 200 no coverage 201-250 2u 251-300 3u 301-350 5u 351-400 8u 451-500 12u > 500 go to ER 60 units am and 90 u nits pm Inject 3 Units subcu taneously three times daily before meals. And sliding scale coverage: Lispro insulin coverage < 200 no coverage 201-250 2u 251-300 3u 301-350 5u 351-400 8u 451-500 12u > 500 go to ER 63 units am, 3 units afternoon, 93 units before evening meal iv contrast (will be provided with radiology test) (2 sources) Start: 06-10-2021 End: 06-11-2021 iv contrast (will be provided with radiology test) MRI Liver Inject, intravenously, once for 1 dose. No IV access, insert saline lock prior to the beginning of sedation, infusion, injection of imaging exam. Discontinue saline lock post exam. If Pt. has a central line or IVAD, may access for administration according to line specific nursing protocol. Once exam is complete flush line and de-access according to line specific nursing protocol in the MR contrast administration guidelines link. 1 Each 0 06/10/2021 06/11/2021 Active Start: 03-08-2019 End: 12-30-2020 iv contrast (will be provide d with radiology test) CT Urogram WO/W Inject, intravenously, once for 1 dose.No IV access, insert saline lock prior to the beginning of sedation, infusion, injection of imaging exam. Discontinue saline lock post exam. If Pt. has a central line or IVAD, may access for administration according to line specific nursing protocol. Once exam is complete flush line and de-access according to line specific nursing protocol in the CT contrast administration guidelines link. 1 Each 03/08/2019 12/30/2020 Discontinued Comment on above: MRI Liver Inject, in travenously, once for 1 dose. No IV access, insert saline lock prior to the beginning of sedation, infusion, injection of imaging exam. Discontinue saline lock post exam. If Pt. has a central line or IVAD, may access for administration according to line specific nursing protocol. Once exam is complete flush line and de-access according to line specific nursing protocol in the MR contrast administration guidelines link. ammonium lactate 120 mg/ml topical cream (20 sources) Start: 0 End: 5 ammonium lactate (LAC-HYDRIN) 12 % cream Indications: Dry skin Apply 1 application to affected area as needed. 56 g 1 05/15/2024 Active Comment on above: Apply 1 application to affected area as needed. Apply to affected ar ea as needed. LORazepam 1 mg oral tablet (3 sources) Benzodiazepine Start: 2 End: 2 LORazepam (ATIVAN) 1 mg tablet Indications: Anxiety One hour before procedure. 1 tablet 0 06/23/2021 07/24/2021 Active Comment on above: One hour before proc edure. magnesium oxide 400 mg oral tablet (17 sources) Start: 5 End: 5 take 1 tablet by mouth twice daily magnesium oxide 400 mg magnesium tab Take 400 mg by mouth two times a day. 180 tablet 1 08/02/2024 01/29/2025 Active Start: 06-08-2024 End: 07-31-2024 take 1 tablet by mouth twice daily magnesium oxide 400 mg magnesium tab Take 400 mg by mouth two times a day. 60 tablet 1 06/08/2024 07/31/2024 Discontinued mupirocin 0.02 mg/mg topical ointment (2 sources) RNA Synthetase Inhibitor Antibacterial Start: 11-26-2022 End: 12-06-2022 mupirocin (BACTROBAN) 2 % ointment Apply to affected area three times a day for 10 days. 15 g 0 11/26/2022 12/06/2022 Active Comment on above: Apply to affected ar ea three times a day for 10 days. omeprazole 20 mg delayed release oral capsule (20 sources) Proton Pump Inhibitor Start: 01-25-2024 End: 06-06-2024 take 1 capsule by mouth once daily before breakfast omeprazole (PRILOSEC) 20 mg capsule Take 1 capsule by mouth daily before breakfast. 1/2 hr before meal. 30 capsule 5 06/06/2024 Active Start: 11-26-2022 End: 08-10-2023 take 1 capsule by mouth once daily before breakfast omeprazole (PRILOSEC) 20 mg capsule Take 1 capsule by mouth daily before breakfast. 1/2 hr before meal. 30 capsule 5 08/11/2023 Active Comment on above: Take 1 capsule by [facility] daily before breakfast. 1/2 hr before meal. OXYGEN, HOME THERAPY, (20 sources) Start: 07-25-2019 OXYGEN, HOME THERAPY, Indications: Hypoxia 2 L/min by Nasal Cannula route continuous. 07/25/2019 Active Start: 07-25-2019 OXYGEN, HOME T HERAPY, Indications: Hypoxia 2 L/min by Nasal Cannula route continuous. 0 07/25/2019 Active Comment on above: 2 L/min by Nasal Can nula route continuous. potassium chloride 10 meq extended release oral tablet (20 sources) Start: End: take 2 tablets by mouth once daily at breakfast potassium chloride (K-TAB) 10 mEq tablet Indications: Hypokalemia Take 2 tablets by mouth daily with breakfast. 60 tablet 5 03/25/2023 Active Start: 03-04-2015 End: 12-26-2018 take 20 mEq by mouth once daily Potassium Chloride Discontinued 20 MEQ PO DAILY March 04, 2015 12:00am December 26, 2018 11:55am Comment on above: Take 2 tablets by [facility] daily with breakfast. predniSONE 20 mg oral tablet (1 source) Start: 024 take 20 mg by mouth twice daily Prednisone Active 20 MG PO TWICE A DAY February 27, 2023 12:00am spironolactone 25 mg oral tablet (20 sources) Aldosterone Antagonist Start: 025 take 1 tablet by mouth once daily spironolactone (ALDACTONE) 25 mg tablet Take 25 mg by mouth once daily. 05/07/2024 Active sulfamethoxazole 800 mg / trimethoprim 160 mg oral tablet (2 sources) Dihydrofolate Reductase Inhibitor Antibacterial, Sulfonamide Antimicrobial Start: 021 take 1 tablet by mouth twice daily Sulfamethoxazole-Tri methoprim Active 1 TAB PO TWICE A DAY April 29, 2020 11:00pm 24 hr venlafaxine 75 mg extended release oral capsule (20 sources) Serotonin and Norepinephrine Reuptake Inhibitor Start: 024 End: 025 take 1 capsule by mouth once daily venlafaxine ER (EFFEXOR XR) 75 mg 24 hr capsule Indications: Panic disorder TAKE 1 CAPSULE BY MOUTH DAILY IN ADDITION TO 150 MG A DAY. 30 capsule 5 06/15/2024 Active Start: 06-16-2021 End: 05-20-2023 take 1 capsule by mouth once daily venlafaxine ER (EFFEXOR XR) 75 mg 24 hr capsule Indications: Panic disorder TAKE 1 CAPSULE BY MOUTH DAILY IN ADDITION TO 150 MG A DAY. 30 capsule 5 04/21/2023 05/20/2023 Discontinued (Duplicate Entry) Start: 01-12-2021 take 1 capsule by [facility] once daily venlafaxine ER (EFFEXOR XR) 75 mg 24 hr capsule Indications: Panic disorder TAKE 1 CAPSULE BY MOUTH DAILY IN ADDITION TO 150 MG A DAY. 30 capsule 5 01/12/2021 Active Start: 08-29-2019 End: 02-12-2020 take 1 capsule by mouth once daily venlafaxine ER (EFFEXOR XR) 75 mg 24 hr capsule Indications: Panic disorder TAKE 1 CAPSULE BY MOUTH DAILY IN ADDITION TO 150 MG A DAY. 30 capsule 5 08/29/2019 02/12/2020 Discontinued Start: 03-04-2015 End: 04-02-2025 take 1 capsule by mouth once daily venlafaxine ER (EFFEXOR XR) 150 mg 24 hr capsule Indications: Depression, unspecified depression type Take 1 capsule by mouth once daily. 30 capsule 5 04/17/2024 10/04/2024 Discontinued Comment on above: Take 1 capsule by [facility] once daily. TAKE 1 CAPSULE BY [facility] DAILY IN ADDITION TO 150 MG A DAY. Completed/Discontinued Medications Medication Drug Class(es) Dates Sig (Normalized) Sig (Original) acetaminophen 325 mg / HYDROcodone bitartrate 7.5 mg oral tablet (3 sources) Opioid Agonist Start: 05-21-2022 End: 05-24-2022 take 1 tablet by mouth every six hours as needed for pain HYDROcodone-Acetami nophen (NORCO) 7.5-325 mg per tablet Indications: Kidney stone Take 1 tablet by mouth every 6 hours as needed for pain for up to 3 days. 12 tablet 0 05/21/2022 05/24/2022 Comment on above: Take 1 tablet by jeni th every 6 hours as needed for pain for up to 3 days. acetaminophen 325 mg / oxyCODONE hydrochloride 5 mg oral tablet (2 sources) Opioid Agonist Start: 09-04-2019 End: 09-07-2019 take 1 tablet by mouth every six hours as needed Oxycodone-Acetamino phen Discontinued 1 - 2 TABLET PO EVERY 6 HOURS NEEDED 11 16September 04, 2019 September 06, 2019 11:03pm amoxicillin 875 mg / clavulanate 125 mg oral tablet (2 sources) Penicillin-class Antibacterial Start: 04-30-2020 End: 02-25-2023 take 875 mg by mouth every twelve hours Amoxicillin-Pot Clavulanate Discontinued 875 MG PO Q12H April 29, 2020 11:00pm February 25, 2023 5:58pm aspirin 81 mg delayed release oral tablet (20 sources) Platelet Aggregation Inhibitor, Nonsteroidal Anti-inflammatory Drug Start: 12-26-2018 End: 09-17-2021 take 1 tablet by mouth once daily aspirin, enteric coated (ASPIRIN, ENTERIC COATED) 81 mg EC tablet Take 1 tablet by mouth once daily. 90 tablet 3 11/20/2019 10/29/2020 Discontinued Comment on above: Take 1 tablet by jeni [facility] once daily. atorvastatin 40 mg oral tablet (20 sources) HMG-CoA Reductase Inhibitor Start: 12-26-2018 End: 12-03-2024 take 1 tablet by mouth once daily at bedtime atorvastatin (LIPITOR) 40 mg tablet Indications: Mixed hyperlipidemia Take 1 tablet by mouth daily at bedtime. 30 tablet 1 08/08/2024 10/04/2024 Discontinued Comment on above: Take 1 tablet by jeni [facility] daily at bedtime. 12 hr buPROPion hydrochloride 150 mg extended release oral tablet (7 sources) Aminoketone Start: 10-16-2019 End: 06-16-2021 buPROPion SR (WELLBUTRIN SR) 150 mg 12 hr tablet Indications: Tobacco abuse disorder Take one tablet once a day for 3 days then increase to twice a day 60 tablet 1 10/16/2019 06/16/2021 Discontinued (Course of therapy completed) Comment on above: Take one tablet once a day for 3 days then increase to twice a day ciprofloxacin 500 mg oral tablet (2 sources) Quinolone Antimicrobial Start: 03-04-2015 End: 12-26-2018 take 500 mg by mouth twice daily Ciprofloxacin Hcl Discontinued 500 MG PO TWICE A DAY March 04, 2015 12:00am December 26, 2018 11:54am dulaglutide (TRULICITY) 3 mg/0.5 mL pen injector (8 sources) Start: 04-03-2021 End: 06-23-2021 inject 3 mg by subcutaneous injection every week dulaglutide (TRULICITY) 3 mg/0.5 mL pen injector Indications: Type 2 diabetes mellitus without complication, with long-term current use of insulin (HCC) , Super obesity Inject 3 mg subcutaneously one time a week. 4 Each 5 04/03/2021 06/23/2021 Discontinued (Dosage adjustment) Start: 04-03-2021 inject 3 mg by subcu taneous injection every week dulaglutide (TRULICITY) 3 mg/0.5 mL pen injector Indications: Type 2 diabetes mellitus without complication, with long-term current use of insulin (HCC) , Super obesity Inject 3 mg subcutaneously one time a week. 4 Each 5 04/03/2021 Active Comment on above: Inject 3 mg subcutan eously one time a week. dulaglutide (TRULICITY) 4.5 mg/0.5 mL pen injector (20 sources) Start: End: inject 4.5 mg by subcutaneous injection every week dulaglutide (TRULICITY) 4.5 mg/0.5 mL pen injector Indications: Type 2 diabetes mellitus without complication, with long-term current use of insulin (HCC) Inject 4.5 mg subcutaneously one time a week. 6 mL 4 02/02/2022 05/15/2023 Discontinued Start: 02-02-2022 inject 4.5 mg by sub cutaneous injection every week dulaglutide (TRULICITY) 4.5 mg/0.5 mL pen injector Indications: Type 2 diabetes mellitus without complication, with long-term current use of insulin (HCC) Inject 4.5 mg subcutaneously one time a week. 6 mL 4 02/02/2022 Active Start: 06-23-2021 End: 02-02-2022 inject 4.5 mg by subcutaneous injection every week dulaglutide (TRULICITY) 4.5 mg/0.5 mL pen injector Indications: Type 2 diabetes mellitus without complication, with long-term current use of insulin (HCC) Inject 4.5 mg subcutaneously one time a week. 6 mL 4 06/23/2021 02/02/2022 Discontinued Start: 06-23-2021 inject 4.5 mg by sub cutaneous injection every week dulaglutide (TRULICITY) 4.5 mg/0.5 mL pen injector Indications: Type 2 diabetes mellitus without complication, with long-term current use of insulin (HCC) Inject 4.5 mg subcutaneously one time a week. 6 mL 4 06/23/2021 Active Comment on above: Inject 4.5 mg subcut aneously one time a week. dulaglutide (TRULICITY) 4.5 mg/0.5 mL pen injector (14 sources) Start: End: inject 4.5 mg by subcutaneous injection every week dulaglutide (TRULICITY) 4.5 mg/0.5 mL pen injector Indications: Type 2 diabetes mellitus without complication, with long-term current use of insulin (HCC) Inject 4.5 mg subcutaneously one time a week. 12 Each 1 05/15/2023 07/07/2023 Discontinued Start: 05-15-2023 End: 11-11-2023 inject 4.5 mg by subcutaneous injection every week dulaglutide (TRULICITY) 4.5 mg/0.5 mL pen injector Indications: Type 2 diabetes mellitus without complication, with long-term current use of insulin (HCC) Inject 4.5 mg subcutaneously one time a week. 12 Each 1 05/15/2023 11/11/2023 Active Comment on above: Inject 4.5 mg subcut aneously one time a week. empagliflozin 10 mg oral tablet (5 sources) Sodium-Glucose Cotransporter 2 Inhibitor Start: 2022 take 1 tablet by mouth once daily, then take 1 tablet by mouth once daily in the morning empagliflozin (JARDIANCE) 10 mg tablet Take 1 tablet by mouth once daily. Take 1 tablet once daily in the morning 30 tablet 5 06/29/2022 Active Comment on above: Take 1 tablet by jeni [facility] once daily. Take 1 tablet once daily in the morning 60 actuat exenatide 0.01 mg/actuat pen injector (20 sources) GLP-1 Receptor Agonist Start: 2023 End: 2024 exenatide (BYETTA) 10 mcg/dose 2.4 ml subcutaneous pen injector Indications: Type 2 diabetes mellitus without complication, with long-term current use of insulin (HCC) Inject dose 5-60 prior to breakfast & dinner. Minimum 6 hours between meals. 30 each 2 06/06/2024 06/06/2024 Discontinued flash glucose scanning reader (FREESTYLE TERRELL 14 DAY READER) misc (1 source) Start: 2019 End: 2020 flash glucose scanning reader (FREESTYLE TERRELL 14 DAY READER) misc Indications: Type 2 diabetes mellitus without complication, with long-term current use of insulin (HCC) Use to check blood sugar 4 times daily 1 Each 05/29/2019 12/30/2020 Discontinued fluticasone propionate 0.05 mg/actuat metered dose nasal spray (20 sources) Corticosteroid Start: 2021 take 2 spray(s) by mouth once daily fluticasone (FLONASE) 50 mcg/actuation nasal spray Indications: Eustachian tube dysfunction, bilateral Use 2 Sprays in each nostril once daily. Rinse mouth after use. 1 Each 5 06/16/2021 Active Comment on above: Use 2 Sprays in each nostril once daily. Rinse mouth after use. furosemide 40 mg oral tablet (20 sources) Loop Diuretic Start: 2015 End: 2024 take 1 tablet by mouth once daily furosemide (LASIX) 40 mg tablet Indications: Essential hypertension Take 1 tablet by mouth once daily. 28 tablet 09/11/2024 10/04/2024 Discontinued Comment on above: Take 1 tablet by jeni [facility] once daily. gabapentin 300 mg oral capsule (20 sources) Anti-epileptic Agent Start: 2015 End: 2024 take 1 capsule by mouth three times daily gabapentin (NEURONTIN) 300 mg capsule Indications: DDD (degenerative disc disease), lumbar Take 1 capsule by mouth three times a day for 30 days. 90 capsule 09/11/2024 10/04/2024 Discontinued Comment on above: Take 1 capsule by [facility] three times daily for 90 days. Appointment needed for further refills. Take 1 capsule by mo [facility] three times a day for 90 days. Appointment needed for further refills. hydroCHLOROthiazide 12.5 mg / lisinopril 20 mg oral tablet (20 sources) Thiazide Diuretic, Angiotensin Converting Enzyme Inhibitor Start: 2021 End: 2024 take 2 tablets by mouth once daily lisinopril-hydroCHL OROthiazide (ZESTORETIC) 20-12.5 mg per tablet Indications: Essential hypertension Take 2 tablets by mouth once daily. 60 tablet 1 08/08/2024 10/04/2024 Discontinued Start: 01-12-2021 take 2 tablets by mouth once daily lisinopril-hydroCHLOROthiazide (PRINZIDE,ZESTORETIC) 20-12.5 mg per tablet Indications: Essential hypertension Take 2 tablets by mouth once daily. 60 tablet 5 01/12/2021 Active Start: 08-29-2019 End: 02-12-2020 take 2 tablets by mouth once daily lisinopril-hydrochlorothiazide (PRINZIDE,ZESTORETIC) 20-12.5 mg per tablet Indications: Essential hypertension Take 2 tablets by mouth once daily. 60 tablet 5 08/29/2019 02/12/2020 Discontinued Start: 03-04-2015 take 2 tablets by mouth once daily Lisinopril-Hydrochlorothiazide Active 2 TABLET PO DAILY March 04, 2015 12:00am Comment on above: Take 2 tablets by [facility] once daily. 3 ml insulin aspart, human 100 unt/ml pen injector (6 sources) Insulin Analog Start: 03-04-2015 End: 12-26-2018 Insulin Aspart U-100 Discontinued 94 UNITS SC WITH DINNER March 04, 2015 12:00am December 26, 2018 11:54am Start: 03-04-2015 End: 12-26-2018 Insulin Aspart U-100 Discont inued 64 UNITS SC WITH BREAKFAST March 04, 2015 12:00am December 26, 2018 11:55am Start: 03-04-2015 End: 12-26-2018 Insulin Aspart U-100 Discont inued 20 UNITS SC WITH LUNCH March 04, 2015 12:00am December 26, 2018 11:55am 3 ml insulin degludec 200 unt/ml pen injector (20 sources) Insulin Analog Start: 08-05-2022 End: 06-20-2023 insulin degludec (TRESIBA FLEXTOUCH U-200) 200 unit/mL (3 mL) injection Indications: Type 2 diabetes mellitus without complication, with long-term current use of insulin (HCC) Inject 83 Units subcutaneously two times a day. 12 Each 5 06/09/2023 06/20/2023 Discontinued Start: 06-29-2022 End: 09-29-2022 insulin degludec (TRESIBA FLEXTOUCH U-200) 200 unit/mL (3 mL) injection Indications: Type 2 diabetes mellitus without complication, with long-term current use of insulin (HCC) Inject 72 Units subcutaneously twice daily. 81 mL 1 06/29/2022 08/05/2022 Discontinued Start: 05-31-2022 End: 08-31-2022 insulin degludec (TRESIBA FLEXTOUCH U-200) 200 unit/mL (3 mL) injection Indications: Type 2 diabetes mellitus without complication, with long-term current use of insulin (HCC) Inject 70 Units subcutaneously twice daily. 81 mL 1 05/31/2022 08/31/2022 Active Start: 03-20-2021 End: 05-31-2022 insulin degludec (TRESIBA FLEXTOUCH U-200) 200 unit/mL (3 mL) injection Indications: Type 2 diabetes mellitus without complication, with long-term current use of insulin (HCC) Inject 88 Units subcutaneously twice daily. 81 mL 1 12/12/2021 05/31/2022 Discontinued Start: 11-20-2019 End: 02-12-2020 insulin degludec (TRESIBA FLEXTOUCH U-200) 200 unit/mL (3 mL) injection Indications: Type 2 diabetes mellitus without complication, with long-term current use of insulin (HCC) Inject 88 Units subcutaneously twice daily. 27 mL 2 11/20/2019 02/12/2020 Discontinued Start: 09-01-2019 inject 83 [IU] by love bcutaneous injection twice daily Insulin Degludec Active 83 UNIT SQ TWICE A DAY August 31, 2019 11:00pm Comment on above: Inject 88 Units subc utaneously twice daily. Inject 70 Units subc utaneously twice daily. Inject 72 Units subc utaneously twice daily. Inject 83 Units subc utaneously twice daily. 24 hr metFORMIN hydrochloride 500 mg extended release oral tablet (20 sources) Biguanide Start: 06-17-19 End: 12-04-19 take 2 tablets by mouth twice daily at mealtime metFORMIN ER (GLUCOPHAGE XR) 500 mg 24 hr tablet Indications: Type 2 diabetes mellitus without complication, with long-term current use of insulin (HCC) Take 2 tablets by mouth two times a day with meals. 120 tablet 1 08/08/2024 10/04/2024 Discontinued Start: 01-12-2021 take 2 tablets by mo ut twice daily at mealtime metFORMIN ER (GLUCOPHAGE XR) 500 mg 24 hr tablet Indications: Type 2 diabetes mellitus without complication, with long-term current use of insulin (HCC) Take 2 tablets by mouth twice daily with meals. 120 tablet 11 01/12/2021 Active Start: 03-15-2019 End: 02-12-2020 take 2 tablets by mouth twice daily at mealtime metFORMIN ER (GLUCOPHAGE XR) 500 mg 24 hr tablet Indications: Type 2 diabetes mellitus without complication, with long-term current use of insulin (HCC) Take 2 tablets by mouth twice daily with meals. 120 tablet 11 03/15/2019 02/12/2020 Discontinued Start: 03-04-2015 End: 02-25-2023 take 1000 mg by mouth twice daily at mealtime Metformin Discontinued 1000 MG PO TWICE DAILY WITH MEALS March 04, 2015 12:00am February 25, 2023 5:59pm Comment on above: Take 2 tablets by mo ut twice daily with meals. Take 2 tablets by mo [facility] two times a day with meals. tiotropium 0.018 mg inhalation powder (1 source) Anticholinergic Start: End: take 1 capsule by inhalation once daily tiotropium (SPIRIVA WITH HANDIHALER) 18 mcg inhalation capsule Inhale 1 capsule as instructed once daily. Use with handihaler. 30 capsule 3 10/24/2019 02/12/2020 Discontinued triamcinolone acetonide 1 mg/ml topical cream (20 sources) Corticosteroid Start: 023 End: 025 triamcinolone acetonide (KENALOG) 0.1 % cream Apply 1 application to affected area three times daily. Apply sparingly to area for rash/itching. 80 g 07/23/2022 05/10/2024 Discontinued (Duplicate Entry) Comment on above: Apply 1 application to affected area three times daily. Apply sparingly to area for rash/itching. Problems Active Problems Problem Classification Problem Date Documented Da te Episodic/Chronic Anxiety disorders (20 sources) Panic disorder; Translations: [Panic disorder [episodic paroxysmal anxiety]] Onset: 2 11-10-2012 Chronic Cancer of kidney and renal pelvis (20 sources) Malignant tumor of kidney; Translations: [Malignant neoplasm of unspecified kidney, except renal pelvis] Onset: 9 Resolved: 6 06-25-2015 Chronic Cancer of kidney and renal pelvis (1 source) History of malignant neoplasm of retroperitoneum; Translations: [Personal history of other malignant neoplasm of kidney] 05-13-2022 Episodic Chronic obstructive pulmonary disease and bronchiectasis (20 sources) Chronic obstructive lung disease; Translations: [Chronic obstructive pulmonary disease, unspecified] Onset: 0 01-14-2020 Chronic Diabetes mellitus with complications (20 sources) Type II diabetes mellitus uncontrolled; Translations: [Type 2 diabetes mellitus with hyperglycemia] Onset: 3 Chronic Diabetes mellitus without complication (20 sources) Type 2 diabetes mellitus without complication; Translations: [Type 2 diabetes mellitus without complications] Onset: 3 Chronic Diseases of white blood cells (1 source) Elevated white blood cell count, unspecified; Translations: [Leukocytosis, unspecified type] Onset: 5 Chronic Disorders of lipid metabolism (20 sources) Mixed hyperlipidemia; Translations: [Mixed hyperlipidemia] Onset: 7 Chronic Esophageal disorders (2 sources) Gastroesophageal reflux disease; Translations: [Gastro-esophageal reflux disease without esophagitis] Onset: 5 06-06-2024 Chronic Essential hypertension (20 sources) Essential hypertension; Translations: [Essential (primary) hypertension] Onset: 4 Chronic Fluid and electrolyte disorders (5 sources) Hypokalemia; Translations: [Hypokalemia] Episodic Mood disorders (20 sources) Depressive disorder; Translations: [Depression] 11-10-2012 Chronic Other circulatory disease (5 sources) Vascular insufficiency; Translations: [Venous insufficiency (chronic) (peripheral)] 06-06-2024 Episodic Other diseases of veins and lymphatics (1 source) Venous insufficiency of leg; Translations: [Venous insufficiency (chronic) (peripheral)] Episodic Other gastrointestinal disorders (20 sources) Irritable bowel syndrome; Translations: [Irritable bowel syndrome without diarrhea] 11-10-2012 Chronic Other hematologic conditions (1 source) Secondary polycythemia; Translations: [Secondary polycythemia] 06-09-2023 Episodic Other inflammatory condition of skin (1 source) Erythema; Translations: [Erythematous condition, unspecified] Episodic Other injuries and conditions due to external causes (1 source) Encounter for examination and observation following other accident; Translations: [Encounter for examination and observation following other accident] Onset: 4 Episodic Other liver diseases (20 sources) Liver cyst; Translations: [Other specified diseases of liver] Onset: 2 Chronic Other liver diseases (2 sources) Liver mass; Translations: [Hepatomegaly, not elsewhere classified] Episodic Other lower respiratory disease (1 source) Dyspnea; Translations: [Shortness of breath] Episodic Other lower respiratory disease (2 sources) Hypoxia; Translations: [Hypoxemia] 02-25-2023 Episodic Other lower respiratory disease (2 sources) Hypoxemia; Translations: [Hypoxemia] 02-25-2023 Episodic Other non-traumatic joint disorders (1 source) Bilateral elbow joint pain; Translations: [Pain in right elbow] Episodic Other nutritional; endocrine; and metabolic disorders (20 sources) Body mass index 40+ - severely obese; Translations: [Morbid (severe) obesity due to excess calories] 04-26-2018 Chronic Other nutritional; endocrine; and metabolic disorders (4 sources) Morbid obesity; Translations: [Morbid (severe) obesity due to excess calories] 02-25-2023 Chronic Other nutritional; endocrine; and metabolic disorders (1 source) Hypomagnesemia; Translations: [Hypomagnesemia] Onset: 5 Chronic Other skin disorders (1 source) Dry skin; Translations: [Xerosis cutis] Episodic Other skin disorders (3 sources) Xeroderma; Translations: [Xerosis cutis] 11-26-2022 Episodic Other upper respiratory infections (1 source) Acute maxillary sinusitis; Translations: [Acute maxillary sinusitis, unspecified] Episodic Peripheral and visceral atherosclerosis (20 sources) Peripheral vascular disease; Translations: [Peripheral vascular disease, unspecified] Onset: 9 12-27-2018 Chronic Residual codes; unclassified (20 sources) Sleep apnea; Translations: [Sleep apnea, unspecified] 02-09-2021 Chronic Residual codes; unclassified (20 sources) Obstructive sleep apnea syndrome; Translations: [Obstructive sleep apnea (adult) (pediatric)] Chronic Residual codes; unclassified (1 source) Reduced libido; Translations: [Decreased libido] Episodic Residual codes; unclassified (2 sources) History of partial nephrectomy; Translations: [Acquired absence of kidney] 02-25-2023 Episodic Residual codes; unclassified (2 sources) Tobacco user; Translations: [Tobacco use] 02-25-2023 Episodic Residual codes; unclassified (2 sources) Tobacco use; Translations: [Tobacco use disorder] 02-25-2023 Episodic Residual codes; unclassified (1 source) Cushingoid facies; Translations: [Other general symptoms and signs] 06-14-2023 Episodic Respiratory failure; insufficiency; arrest (adult) (20 sources) Chronic hypoxemic respiratory failure; Translations: [Chronic respiratory failure with hypoxia] Onset: 2 07-16-2021 Chronic Skin and subcutaneous tissue infections (4 sources) Paronychia of finger of left hand; Translations: [Cellulitis of left finger] Onset: 4 11-27-2022 Episodic Spondylosis; intervertebral disc disorders; other back problems (20 sources) Degeneration of lumbar intervertebral disc; Translations: [Other intervertebral disc degeneration, lumbar region] 02-09-2021 Chronic Substance-related disorders (6 sources) Tobacco dependence syndrome; Translations: [Nicotine dependence, unspecified, uncomplicated] 11-27-2022 Chronic Thyroid disorders (2 sources) Thyroid nodule; Translations: [Nontoxic single thyroid nodule] 11-27-2022 Chronic Unclassified (20 sources) ASA CLASS III Onset: 0 08-20-2009 Unclassified (2 sources) Patient encounter status 06-06-2024 Past or Other Problems Problem Classification Problem Date Documented Date Episodic/Chronic Abdominal hernia (20 sources) Hernia of abdominal cavity; Translations: [Other specified abdominal hernia without obstruction or gangrene] Onset: 12-08-2011 12-08-2011 Episodic Acute and unspecified renal failure (20 sources) Acute renal failure syndrome; Translations: [Acute kidney failure, unspecified] Onset: 03-21-2008 Resolved: 01-17-2017 01-17-2017 Episodic Calculus of urinary tract (20 sources) Kidney stone; Translations: [Calculus of kidney] Onset: 05-03-2007 05-03-2007 Episodic Complications of surgical procedures or medical care (20 sources) Urinary complication; Translations: [Urinary complications] Onset: 03-21-2008 Resolved: 08-29-2020 11-19-2015 Episodic Genitourinary symptoms and ill-defined conditions (20 sources) Microalbuminuria; Translations: [Proteinuria, unspecified] Onset: 11-25-2022 Episodic Immunizations and screening for infectious disease (2 sources) Viral screening status; Translations: [Encounter for screening for other viral diseases] Onset: 06-06-2024 05-15-2023 Episodic Other aftercare (1 source) manager terminal (current) use of insulin; Translations: [Type 2 diabetes mellitus without complication, with long-term current use of insulin (HCC)] Onset: 12-14-2014 Episodic Other and unspecified benign neoplasm (20 sources) Adenoma of right adrenal gland; Translations: [Benign neoplasm of right adrenal gland] Onset: 10-25-2021 Episodic Other diseases of kidney and ureters (20 sources) Hydronephrosis; Translations: [Unspecified hydronephrosis] Onset: 03-21-2008 03-21-2008 Episodic Other diseases of veins and lymphatics (1 source) Venous insufficiency (chronic) (peripheral); Translations: [Venous insufficiency] Onset: 06-06-2024 Episodic Other hematologic conditions (20 sources) Erythrocytosis; Translations: [Secondary polycythemia] Onset: 11-25-2022 Episodic Other injuries and conditions due to external causes (20 sources) Foreign body in bladder and urethra; Translations: [Foreign body in bladder, initial encounter] Onset: 06-04-2008 06-04-2008 Episodic Other lower respiratory disease (20 sources) Multiple nodules of lung; Translations: [Other nonspecific abnormal finding of lung field] Onset: 09-24-2021 Episodic Other lower respiratory disease (4 sources) Other nonspecific abnormal finding of lung field; Translations: [Other nonspecific abnormal finding of lung field] Onset: 09-24-2021 Episodic Other screening for suspected conditions (not mental disorders or infectious disease) (14 sources) Patient encounter status; Translations: [Encounter for screening mammogram for malignant neoplasm of breast] Onset: 06-06-2024 Episodic Pancreatic disorders (not diabetes) (20 sources) Cyst of pancreas; Translations: [Cyst of pancreas] Onset: 10-25-2021 Resolved: 10-25-2021 10-25-2021 Episodic Spondylosis; intervertebral disc disorders; other back problems (20 sources) Low back pain; Translations: [Lumbago] Onset: 01-03-2013 01-03-2013 Episodic Unclassified (2 sources) R lower portion of kidney removed 02-25-2023 Unclassified (2 sources) repair of r arm fx 09-02-2021 Results Test Name Value Interpretation Reference Range Facility [facility] 09-19-2024 CNPN Telephone (FAMPWS) ---- ROSA MARIA MENJIVAR ([id number]) 1965 F Date Time Provider Department 09/19/24 NO PCP (HIST) FAMPWS During your visit today, we recorded the following information about you: Dhara Naylor RN 09/19/2024 3:14 PM Signed Patient calling to request refill of her Terrell 2 sensors. Dismissed from practice, effective 09/11/24. Patient reports she has a new provider appt scheduled for mid-October and asking to have prescription sent to [facility]. Pended. Dhara Naylor RN Allergies As of Date: 09/19/2024 Noted Allergy Reaction JARDIANCE (EMPAGLIFLOZIN) 07/23/2022 9 - Itching Comments: Pt reported yeast infection MORPHINE 10/14/2010 9 - Itching TETANUS AND DIPHTHERIA TOXOIDS, A*11/10/2012 14 - Other: See Comments Comments: ? Reactive lymphadenopathy TORADOL (KETOROLAC TROMETHAMINE) 11/24/2007 Comments: Heart racing and nightmares Date Reviewed: 06/06/2024 Reviewed by: Rich Irby LPN - Fully Assessed Reason for Visit: Patient Request [[id number]] Visit Diagnosis:Type 2 diabetes mellitus without complication, with long-term current use of insulin (HCC) [E11.9, Z79.4] Order(s):flash glucose sensor (FREESTYLE TERRELL 2 SENSOR) kitUse to check blood glucose 4 times daily.Disp: 2 eachRfl: 1 Prescriptions as of 09/19/2024 - flash glucose sensor (FREESTYLE TERRELL 2 SENSOR) kit Use to check blood glucose 4 times daily. - insulin glargine (LANTUS SOLOSTAR U-100 INSULIN) 100 unit/mL (3 mL) Inject 83 Units subcutaneously two times a day. - furosemide (LASIX) 40 mg tablet Take 1 tablet by mouth once daily. - gabapentin (NEURONTIN) 300 mg capsule Take 1 capsule by mouth three times a day for 30 days. - dulaglutide (TRULICITY) 0.75 mg/0.5 mL pen injector Inject 0.75 mg subcutaneously one time a week. - atorvastatin (LIPITOR) 40 mg tablet Take 1 tablet by mouth daily at bedtime. - busPIRone (BUSPAR) 7.5 mg tablet Take 1 tablet by mouth three times a day. - lisinopril-hydroCHL OROthiazide (ZESTORETIC) 20-12.5 mg per tablet Take 2 tablets by mouth once daily. - metFORMIN ER (GLUCOPHAGE XR) 500 mg 24 hr tablet Take 2 tablets by mouth two times a day with meals. - atenolol (TENORMIN) 100 mg tablet Take 1 tablet by mouth once daily. - magnesium oxide 400 mg magnesium tab Take 400 mg by mouth two times a day. - insulin lispro (HUMALOG) 200 unit/mL (3 mL) injection 63 units am, 3 units afternoon, 94 units before evening meal - insulin lispro (HUMALOG) 200 unit/mL (3 mL) injection 63 units am, 3 units afternoon, 94 units before evening meal for 30 days - venlafaxine ER (EFFEXOR XR) 75 mg 24 hr capsule TAKE 1 CAPSULE BY MOUTH DAILY IN ADDITION TO 150 MG A DAY. - omeprazole (PRILOSEC) 20 mg capsule Take 1 capsule by mouth daily before breakfast. 1/2 hr before meal. - spironolactone (ALDACTONE) 25 mg tablet Take 25 mg by mouth once daily. - mometasone-formoter ol (DULERA) 50-5 mcg/actuation HFA aerosol inhaler Inhale 2 puffs as instructed two times a day. - ammonium lactate (LAC-HYDRIN) 12 % cream Apply 1 application to affected area as needed. - Insulin [place], Disposable, (ULTICARE PEN NEEDLE) 29 gauge x 1/2 USE FIVE TIMES A DAY - venlafaxine ER (EFFEXOR XR) 150 mg 24 hr capsule Take 1 capsule by mouth once daily. - flash glucose scanning reader ([employer] TERRELL 2 READER) 1 Each four times daily. - albuterol HFA (PROVENTIL HFA, VENTOLIN HFA) 90 mcg/actuation inhaler Inhale 2 Puffs as instructed every 4 hours as needed. - blood sugar diagnostic (BLOOD GLUCOSE TEST) test strip Test blood sugar(s) 2 times daily: fasting am and 2 hour after largest meal. Dx: Type 2 DM - Controlled E11.9 Insulin: Yes - potassium chloride (K-TAB) 10 mEq tablet Take 2 tablets by mouth daily with breakfast. - Lancets lancets Test blood sugar(s) 2 times daily. Dx: Type 2 DM - Uncontrolled E11.65 Insulin: Yes - CPAP 11 cm via nasal mask with 20 min ramp and humidification. - OXYGEN, HOME THERAPY, 2 L/min by Nasal Cannula route continuous. - COMPOUNDED PRESCRIPTION C-PAP MASK HOSES, FILTERS - glucose 4 gram chewable tablet Take 4 tablets by mouth as needed. For sugar less than 70 - COMPOUNDED PRESCRIPTION COMPRESSION STOCKINGS 20-30 mm Knee high. DX: venous insufficiency - COMPOUNDED PRESCRIPTION cpap supplies: sleep apnea - COMPOUNDED PRESCRIPTION CPAP mask Problem List As Of Date 09/19/2024 Noted Resolved Staghorn renal calculus [N20.0] 05/03/2007 RENAL COLIC [N23] 05/03/2007 Urinary complications [XGY8656] 03/21/2008 11/19/2015 HYDRONEPHROSIS [N13.30] 03/21/2008 Acute kidney failure, unspecified (HCC) [N17.9] 03/21/2008 01/17/2017 CALCULUS OF URETER [N20.1] 03/21/2008 FB BLADDER AND URETHRA [T19.1XXA, T19.0XXA] 06/04/2008 Malignant neoplasm of kidney excluding renal pe*11/21/2008 06/25/2015 ASA CLASS III [1003] 08/20/2009 Dehiscence of incision [T81.31XA] (more content not included)... [facility]FAMWS[facility] ---- ROSA MARIA MENJIVAR ([id number]) 1965 F Date Time Provider Department 08/28/24 LU GREENE [facility] During your visit today, we recorded the following information about you: Allergies As of Date: 08/28/2024 Noted Allergy Reaction JARDIANCE (EMPAGLIFLOZIN) 07/23/2022 9 - Itching Comments: Pt reported yeast infection MORPHINE 10/14/2010 9 - Itching TETANUS AND DIPHTHERIA TOXOIDS, A*11/10/2012 14 - Other: See Comments Comments: ? Reactive lymphadenopathy TORADOL (KETOROLAC TROMETHAMINE) 11/24/2007 Comments: Heart racing and nightmares Date Reviewed: 06/06/2024 Reviewed by: Rich Irby LPN - Fully Assessed Primary Visit Diagnosis:Venous insufficiency [I87.2] Order(s):US VENOUS INCOMPETENCY [facility] [[id number]] Order #: [id number] FUTURE Prescriptions as of 08/28/2024 - dulaglutide (TRULICITY) 0.75 mg/0.5 mL pen injector Inject 0.75 mg subcutaneously one time a week. - atorvastatin (LIPITOR) 40 mg tablet Take 1 tablet by mouth daily at bedtime. - busPIRone (BUSPAR) 7.5 mg tablet Take 1 tablet by mouth three times a day. - furosemide (LASIX) 40 mg tablet Take 1 tablet by mouth once daily. - gabapentin (NEURONTIN) 300 mg capsule Take 1 capsule by mouth three times a day for 30 days. - lisinopril-hydroCHL OROthiazide (ZESTORETIC) 20-12.5 mg per tablet Take 2 tablets by mouth once daily. - metFORMIN ER (GLUCOPHAGE XR) 500 mg 24 hr tablet Take 2 tablets by mouth two times a day with meals. - atenolol (TENORMIN) 100 mg tablet Take 1 tablet by mouth once daily. - magnesium oxide 400 mg magnesium tab Take 400 mg by mouth two times a day. - insulin glargine (LANTUS SOLOSTAR U-100 INSULIN) 100 unit/mL (3 mL) Inject 83 Units subcutaneously two times a day. - insulin lispro (HUMALOG) 200 unit/mL (3 mL) injection 63 units am, 3 units afternoon, 94 units before evening meal - insulin lispro (HUMALOG) 200 unit/mL (3 mL) injection 63 units am, 3 units afternoon, 94 units before evening meal for 30 days - venlafaxine ER (EFFEXOR XR) 75 mg 24 hr capsule TAKE 1 CAPSULE BY MOUTH DAILY IN ADDITION TO 150 MG A DAY. - omeprazole (PRILOSEC) 20 mg capsule Take 1 capsule by mouth daily before breakfast. 1/2 hr before meal. - spironolactone (ALDACTONE) 25 mg tablet Take 25 mg by mouth once daily. - mometasone-formoter ol (DULERA) 50-5 mcg/actuation HFA aerosol inhaler Inhale 2 puffs as instructed two times a day. - ammonium lactate (LAC-HYDRIN) 12 % cream Apply 1 application to affected area as needed. - Insulin [place], Disposable, (ULTICARE PEN NEEDLE) 29 gauge x 1/2 USE FIVE TIMES A DAY - venlafaxine ER (EFFEXOR XR) 150 mg 24 hr capsule Take 1 capsule by mouth once daily. - flash glucose sensor (FREESTYLE TERRELL 2 SENSOR) kit Use to check blood glucose 4 times daily. - flash glucose scanning reader (FREESTYLE TERRELL 2 READER) 1 Each four times daily. - albuterol HFA (PROVENTIL HFA, VENTOLIN HFA) 90 mcg/actuation inhaler Inhale 2 Puffs as instructed every 4 hours as needed. - blood sugar diagnostic (BLOOD GLUCOSE TEST) test strip Test blood sugar(s) 2 times daily: fasting am and 2 hour after largest meal. Dx: Type 2 DM - Controlled E11.9 Insulin: Yes - potassium chloride (K-TAB) 10 mEq tablet Take 2 tablets by mouth daily with breakfast. - Lancets lancets Test blood sugar(s) 2 times daily. Dx: Type 2 DM - Uncontrolled E11.65 Insulin: Yes - CPAP 11 cm via nasal mask with 20 min ramp and humidification. - OXYGEN, HOME THERAPY, 2 L/min by Nasal Cannula route continuous. - COMPOUNDED PRESCRIPTION C-PAP MASK HOSES, FILTERS - glucose 4 gram chewable tablet Take 4 tablets by mouth as needed. For sugar less than 70 - COMPOUNDED PRESCRIPTION COMPRESSION STOCKINGS 20-30 mm Knee high. DX: venous insufficiency - COMPOUNDED PRESCRIPTION cpap supplies: sleep apnea - COMPOUNDED PRESCRIPTION CPAP mask Problem List As Of Date 08/28/2024 Noted Resolved Staghorn renal calculus [N20.0] 05/03/2007 RENAL COLIC [N23] 05/03/2007 Urinary complications [HMC7307] 03/21/2008 11/19/2015 HYDRONEPHROSIS [N13.30] 03/21/2008 Acute kidney [...] Depression [F32.A] DDD (degenerative disc disease), lumbar [M51.36* IBS (irritable bowel syndrome) [K58.9] Panic disorder [F41.0] Obstructive sleep apnea syndrome [G47.33] Hypertension, essential [I10] Diabetes mellitus (HCC) [E11.9] 11/10/2012 Lumbago [M54.50] 01/03/2013 Malignant n (more content not included)... Normal [facility] CNOVon 08-08-2024 CNOV Office Visit (FAMPWS) ---- ROSA MARIA MENJIVAR ([id number]) 1965 F Date Time Provider Department 08/08/24 10:40 AM LU GREENE During your visit today, we recorded the following information about you: Pulse Respiration Blood pressure 87/minute 16/minute 138/84 Lu Greene APRN.[employer] BPM ARCHITECT 08/08/2024 11:20 AM Addendum Increase the atenolol to 100 mg daily. Continue the magnesium. Check with insurance re: where to get the shingrix vaccine. Recheck in a month. Lu Greene APRN.[employer] B[employer] ARCHITECT 08/08/2024 5:39 PM Signed This is a 58 year old female who presents today with: Rosa Maria Menjivar is a 58-year-old female with a history of HTN, DM, anxiety, and depression, presenting for a blood pressure check. HISTORY OF PRESENT ILLNESS: Hypertension: - Current medications: atenolol 75 mg daily, lisinopril, HCTZ, spironolactone. - No recent home blood pressure monitoring. - Denies chest pain or palpitations. Diabetes Mellitus: - Resumed Trulicity; previously on By[place]. - Current medications: Lantus 83 units BID, Humalog 63 units in the morning, 3 units in the afternoon, 94 units in the evening. [place] like her sugar was low here. Per her CGM, it was in the 80s. Anxiety and Depression: - Current medications: BuSpar, Effexor 150 mg and 75 mg. - Rarely leaves the house except for medical appointments. Hearing Concerns: - Reports decreased hearing and a persistent sound in the ears, likened to an old TV going off station. - Suspects ear drainage; denies current drainage but has a history of ear drainage. - Experiencing eye itching, attributing it to allergies. PAST MEDICAL HISTORY: PAST MEDICAL HISTORY Diagnosis Date Chronic hypoxemic [...] ABDOMEN W/ AND W/O CONTRAST 10/16/2021 10/16/2021 [facility] MRI w/wo IVCON: no patterns to suggest malignancy on enhancement. Normal portal and hepatic veins. Staghorn calculus in the left kidney upper pole, 3cm simple cyst attached to gallbladder duct, simple small liver cyst inferior right lobe, right adrenal adenoma with benign characteristics. OTHER right lower portion of kidney removed in 2009 PAST SURGICAL HISTORY OF Repair of right arm fx as child ALLERGIES Jardiance [Empagliflozin]; Morphine; Tetanus And Diphtheria Toxoids, Adsorbed, Adult; and Toradol [Ketorolac Tromethamine] MEDICATIONS Current Outpatient Medications Medication Sig atenolol (TENORMIN) 100 mg tablet Take 1 tablet by mouth once daily. magnesium oxide 400 mg magnesium tab Take 400 mg by mouth two times a day. insulin glargine (LANTUS SOLOSTAR U-100 INSULIN) 100 unit/mL (3 mL) Inject 83 Units subcutaneously two times a day. insulin lispro (HUMALOG) 200 unit/mL (3 mL) injection 63 units am, 3 units afternoon, 94 units before evening meal gabapentin (NEURONTIN) 300 mg capsule Take 1 capsule by mouth three times a day for 30 days. furosemide (LASIX) 40 mg tablet Take 1 tablet by mouth once daily. busPIRone (BUSPAR) 7.5 mg tablet Take 1 tablet by mouth three times a day. metFORMIN ER (GLUCOPHAGE XR) 500 mg 24 hr tablet Take 2 tablets by mouth two times a day with meals. lisinopril-hydroCHL OROthiazide (ZESTORETIC) 20-12.5 mg per tablet Take 2 tablets by mouth once daily. atorvastatin (LIPITOR) 40 mg tablet Take 1 tablet by mouth daily at bedtime. insulin lispro (HUMALOG) 200 unit/mL (3 mL) injection 63 units am, 3 units afternoon, 94 units before evening meal for 30 days venlafaxine ER (EFFEXOR XR) 75 mg 24 hr capsule TAKE 1 CAPSULE BY MOUTH DAILY IN ADDITION TO 150 MG A DAY. omeprazole (PRILOSEC) 20 mg capsule Take 1 capsule by mouth daily before breakfast. 1/2 hr before meal. dulaglutide (TRULICITY) 0.75 mg/0.5 mL pen injector Inject 0.75 mg subcutaneously one time a week. spironolactone (ALDACTONE) 25 mg tablet Take 25 mg by mouth once daily. mometasone-formoter ol (DULERA) 50-5 mcg/actuation HFA aerosol inhaler Inhale 2 puffs as instructed two times a day. ammonium lactate (LAC-HYDRIN) 12 % cream Apply 1 application to affected area as needed. (more content not included)... Normal [facility] CBC W Auto Differential pane l (Bld)on 08-06-2024 Basophils (Bld) [#/Vol] 0.05 10*3/uL Normal <0.11 [facility] Comment on above: Order Comment: Speci men Type: BLOOD SPECIMENOrdering Facility: [facility] Address: [address] [place] [address] Performed By: #### 5 7021-8 ####[facility] [id number] [place] [address] [place] Basophils/100 WBC (Bld) 0.4 % Normal [facility] Comment on above: Order Comment: Speci men Type: BLOOD SPECIMENOrdering Facility: [facility] Address: [address] [place] [address] Performed By: #### 5 7021-8 ####[facility] [id number] [place] [address] [place] Differential cell count method Nom (Bld) Auto Normal [facility] Comment on above: Order Comment: Speci men Type: BLOOD SPECIMENOrdering Facility: [facility] Address: [address] [place] [address] Performed By: #### 5 7021-8 ####[facility] MILLCHILOWJULITOLIA [id number] [place] [address] [place] Eosinophils (Bld) [#/Vol] 0.42 10*3/uL Normal <0.46 [facility] Comment on above: Order Comment: Speci men Type: BLOOD SPECIMENOrdering Facility: [facility] Address: [address] [place] [address] Performed By: #### 5 7021-8 ####[facility] FLORIDAWJULITOL[facility] [id number] [place] [address] [place] Eosinophils/100 WBC (Bld) 3.3 % Normal [facility] Comment on above: Order Comment: Speci men Type: BLOOD SPECIMENOrdering Facility: [facility] Address: [address] [place] [address] Performed By: #### 5 7021-8 ####[facility] EMERALD COASTJULITOLIA [id number] [place] [address] [place] Erythrocyte distribution width (RBC) [Ratio] 14.5 % Normal 11.5-15.0 [facility] Comment on above: Order Comment: Speci men Type: BLOOD SPECIMENOrdering Facility: [facility] Address: [address] [place] [address] Performed By: #### 5 7021-8 ####[facility] MILLWNCLIA [id number] [place] [address] [place] Hematocrit (Bld) [Volume fraction] 46.1 % High 36.0-46.0 [facility] Comment on above: Order Comment: Speci men Type: BLOOD SPECIMENOrdering Facility: [facility] Address: [address] [place] [address] Performed By: #### 5 7021-8 ####[facility] COASTJULITOLIA [id number] [place] [address] [place] Hemoglobin (Bld) [Mass/Vol] 14.1 g/dL Normal 11.5-15.5 [facility] Comment on above: Order Comment: Speci men Type: BLOOD SPECIMENOrdering Facility: [facility] Address: [address] [place] [address] Performed By: #### 5 7021-8 ####[facility] [id number] [place] [address] [place] Immature granulocytes (Bld) [#/Vol] 0.05 10*3/uL Normal <0.10 [facility] Comment on above: Order Comment: Speci men Type: BLOOD SPECIMENOrdering Facility: [facility] Address: [address] [place] [address] Performed By: #### 5 7021-8 ####[facility] [id number] [place] [address] [place] Immature granulocytes/100 WBC (Bld) 0.4 % Normal [facility] Comment on above: Order Comment: Speci men Type: BLOOD SPECIMENOrdering Facility: [facility] Address: [address] [place] [address] Performed By: #### 5 7021-8 ####[facility] [id number] [place] [address] [place] Lymphocytes (Bld) [#/Vol] 2.70 10*3/uL Normal 1.00-4.0 0 [facility] Comment on above: Order Comment: Speci men Type: BLOOD SPECIMENOrdering Facility: [facility] Address: [address] [place] [address] Performed By: #### 5 7021-8 ####[facility] [id number] [place] [address] [place] Lymphocytes/100 WBC (Bld) 21.4 % Normal [facility] Comment on above: Order Comment: Speci men Type: BLOOD SPECIMENOrdering Facility: [facility] Address: [address] [place] [address] Performed By: #### 5 7021-8 ####[facility] [id number] [place] [address] [place] MCH (RBC) [Entitic mass] 25.7 pg Low 26.0-34.0 [facility] Comment on above: Order Comment: Speci men Type: BLOOD SPECIMENOrdering Facility: [facility] Address: [address] [place] [address] Performed By: #### 5 7021-8 ####[facility] [id number] [place] [address] [place] MCHC (RBC) [Mass/Vol] 30.6 g/dL Normal 30.5-36.0 [facility] Comment on above: Order Comment: Speci men Type: BLOOD SPECIMENOrdering Facility: [facility] Address: [address] [place] [address] Performed By: #### 5 7021-8 ####[facility] [id number] [place] [address] [place] MCV (RBC) [Entitic vol] 84.1 fL Normal 80.0-100.0 C [facility] Comment on above: Order Comment: Speci men Type: BLOOD SPECIMENOrdering Facility: [facility] Address: [address] [place] [address] Performed By: #### 5 7021-8 ####[facility] [id number] [place] [address] [place] Monocytes (Bld) [#/Vol] 0.82 10*3/uL Normal <0.87 [facility] Comment on above: Order Comment: Speci men Type: BLOOD SPECIMENOrdering Facility: [facility] Address: [address] [place] [address] Performed By: #### 5 7021-8 ####[facility] JERODWNCLIA [id number] [place] [address] [place] Monocytes/100 WBC (Bld) 6.5 % Normal [facility] Comment on above: Order Comment: Speci men Type: BLOOD SPECIMENOrdering Facility: [facility] Address: [address] [place] [address] Performed By: #### 5 7021-8 ####[facility] EM[facility]AL[facility] COASTNCLIA [id number] [place] [address] [place] Neutrophils (Bld) [#/Vol] 8.59 10*3/uL High 1.45-7.5 0 [facility] Comment on above: Order Comment: Speci men Type: BLOOD SPECIMENOrdering Facility: [facility] Address: [address] [place] [address] Performed By: #### 5 7021-8 ####[facility] EM[facility]AL[facility] COASTJULITOLIA [id number] [place] [address] [place] Neutrophils/100 WBC (Bld) 68.0 % Normal [facility] Comment on above: Order Comment: Speci men Type: BLOOD SPECIMENOrdering Facility: [facility] Address: [address] [place] [address] Performed By: #### 5 7021-8 ####[facility] FLORIDAWNCL[facility] [id number] [place] [address] [place] Nucleated RBC (Bld) [#/Vol] 10*3/uL Normal <0.01 [facility] Comment on above: Order Comment: Speci men Type: BLOOD SPECIMENOrdering Facility: [facility] Address: [address] [place] [address] Performed By: #### 5 7021-8 ####[facility] [id number] [place] [address] [place] Nucleated RBC/100 WBC (Bld) [Ratio] 0.0 /100 WBC Normal [facility] Comment on above: Order Comment: Speci men Type: BLOOD SPECIMENOrdering Facility: [facility] Address: [address] [place] [address] Performed By: #### 5 7021-8 ####[facility] [id number] [place] [address] [place] Platelet mean volume (Bld) [Entitic vol] 9.6 fL Normal 9.0-12.7 [facility] Comment on above: Order Comment: Speci men Type: BLOOD SPECIMENOrdering Facility: [facility] Address: [address] [place] [address] Performed By: #### 5 7021-8 ####[facility] [id number] [place] [address] [place] Platelets (Bld) [#/Vol] 250 10*3/uL Normal 150-400 [facility] Comment on above: Order Comment: Speci men Type: BLOOD SPECIMENOrdering Facility: [facility] Address: [address] [place] [address] Performed By: #### 5 7021-8 ####[facility] [id number] [place] [address] [place] RBC (Bld) [#/Vol] 5.48 10*6/uL High 3.90-5.20 [facility] Comment on above: Order Comment: Speci men Type: BLOOD SPECIMENOrdering Facility: [facility] Address: [address] [place] [address] Performed By: #### 5 7021-8 ####[facility] [id number] [place] [address] [place] WBC (Bld) [#/Vol] 12.63 10*3/uL High 3.70-11.00 [facility] Comment on above: Order Comment: Speci men Type: BLOOD SPECIMENOrdering Facility: [facility] Address: [address] [place] [address] Performed By: #### 5 7021-8 ####[facility] [id number] [place] [address] [place] [address] CHEST WO IVCONon 08-07-19 CT CHEST WO IVCON * * *Final Report* * * DATE OF EXAM: Aug 06 2024 12:25PM [facility] 0541 - CT CHEST WO IVCON / PROCEDURE REASON: Lung nodules * * * * Physician Interpretation * * * * EXAMINATION: CHEST CT WITHOUT CONTRAST CLINICAL HISTORY: Lung nodules Technique: Spiral CT acquisition of the chest from the thoracic inlet to the upper abdomen without contrast. MQ: [id number]_6 CT Radiation dose: Integrated Dose-length product (DLP) for this visit = 832 mGy*cm CT Dose Reduction Employed: Automated exposure control(AEC) and iterative recon Comparison: 06/09/2023, 05/13/2022 RESULT: Limitations: None. Lines, tubes, and devices: None. Lung parenchyma and airways: Regions of groundglass attenuation and air trapping are again seen within both lungs suggesting reactive airways disease. Atelectasis is seen within the lingula and right middle lobe. There is a stable, approximately 7 mm groundglass attenuation nodule within the superior segment right lower lobe, near the right major fissure (series 5, image #109). No new pulmonary nodule is identified. There is no pneumothorax or endobronchial lesion. Pleural space: No pleural effusion. Lower neck, lymph nodes, and mediastinum: Again seen are multiple hypodense thyroid nodules, which are grossly stable. Again seen is mediastinal and hilar lymphadenopathy. For example, a right paratracheal lymph node measures approximately 2.6 cm in short axis dimension, stable (series 5, image #57). No nenita axillary lymphadenopathy is identified. There are prominent distal paraesophageal lymph nodes, likely reactive. Heart, pericardium, and thoracic vessels: Atherosclerotic calcifications are present within the thoracic aorta and predominantly the LAD. There is fatty hypertrophy of interatrial septum. There is cardiac enlargement. No significant pericardial effusion. The main pulmonary artery is dilated, measuring approximately 3.4 cm, which can be seen with pulmonary arterial hypertension. Bones and soft tissues: There is bilateral shoulder DJD. There is multilevel degenerative change seen within the thoracic spine. Vacuum disc phenomena is seen at multiple levels within the thoracic spine. Upper abdomen: Contents are seen within the stomach. There is bilateral perinephric fat stranding. Cortical scarring is seen involving the right kidney. There is an approximately 1.2 cm exophytic cyst arising from the upper pole of the left kidney (series 5, image #194). There is upper abdominal lymphadenopathy. The liver has a nodular contour. There is colonic diverticulosis. IMPRESSION: Regions of groundglass attenuation and air trapping in both lungs suggest reactive airways disease. Atelectasis versus scarring is seen within the lingula and right middle lobe. There is a stable 7 mm groundglass attenuation nodule seen in the superior segment of the right lower lobe, near the right major fissure. No new pulmonary nodule is identified. Again seen is mediastinal, bilateral hilar, and upper abdominal lymphadenopathy. Night Shift Supervisor: [facility] Transcribe Date/Time: Aug 07 2024 8:39A Dictated by : FERN GARCIA MD This examination was interpreted and the report reviewed and electronically signed by: FERN GARCIA MD on Aug 07 2024 6:02PM EST [id number] Normal [facility] Magnesium SerPl-mCncon 08-06 Magnesium [Mass/Vol] 1.6 mg/dL Low 1.7-2.3 [facility] Comment on above: Order Comment: Speci men Type: BLOOD SPECIMENOrdering Facility: [facility] Address: [address] [place] [address] Performed By: #### 1 9123-9 ####[facility] [id number] [place] [id number] [place] Clarissa 07-28-2024 CNPN Telephone (FAMPWS) ---- ROSA MARIA MENJIVAR ([id number]) 1965 F Date Time Provider Department 07/28/24 SAMSON HOGAN During your visit today, we recorded the following information about you: Elaine Parker LPN 07/28/2024 11:43 AM Signed No show letter #3 printed. Allergies As of Date: 07/28/2024 Noted Allergy Reaction JARDIANCE (EMPAGLIFLOZIN) 07/23/2022 9 - Itching Comments: Pt reported yeast infection MORPHINE 10/14/2010 9 - Itching TETANUS AND DIPHTHERIA TOXOIDS, A*11/10/2012 14 - Other: See Comments Comments: ? Reactive lymphadenopathy TORADOL (KETOROLAC TROMETHAMINE) 11/24/2007 Comments: Heart racing and nightmares Date Reviewed: 06/06/2024 Reviewed by: Rich Irby LPN - Fully Assessed Reason for Visit: Letter [264] Prescriptions as of 07/28/2024 - gabapentin (NEURONTIN) 300 mg capsule Take 1 capsule by mouth three times a day for 30 days. - furosemide (LASIX) 40 mg tablet Take 1 tablet by mouth once daily. - busPIRone (BUSPAR) 7.5 mg tablet Take 1 tablet by mouth three times a day. - metFORMIN ER (GLUCOPHAGE XR) 500 mg 24 hr tablet Take 2 tablets by mouth two times a day with meals. - lisinopril-hydroCHL OROthiazide (ZESTORETIC) 20-12.5 mg per tablet Take 2 tablets by mouth once daily. - atorvastatin (LIPITOR) 40 mg tablet Take 1 tablet by mouth daily at bedtime. - atenolol (TENORMIN) 50 mg tablet Take 1 tablet by mouth once daily. - insulin glargine (LANTUS SOLOSTAR U-100 INSULIN) 100 unit/mL (3 mL) Inject 83 Units subcutaneously two times a day. - insulin lispro (HUMALOG) 200 unit/mL (3 mL) injection 63 units am, 3 units afternoon, 94 units before evening meal for 30 days - venlafaxine ER (EFFEXOR XR) 75 mg 24 hr capsule TAKE 1 CAPSULE BY MOUTH DAILY IN ADDITION TO 150 MG A DAY. - magnesium oxide 400 mg magnesium tab Take 400 mg by mouth two times a day. - omeprazole (PRILOSEC) 20 mg capsule Take 1 capsule by mouth daily before breakfast. 1/2 hr before meal. - atenolol (TENORMIN) 25 mg tablet Take 1 tablet by mouth once daily. Take with 50 mg tablet for total daily dose of 75 mg. - insulin lispro (HUMALOG) 200 unit/mL (3 mL) injection 63 units am, 3 units afternoon, 94 units before evening meal - dulaglutide (TRULICITY) 0.75 mg/0.5 mL pen injector Inject 0.75 mg subcutaneously one time a week. - spironolactone (ALDACTONE) 25 mg tablet Take 25 mg by mouth once daily. - mometasone-formoter ol (DULERA) 50-5 mcg/actuation HFA aerosol inhaler Inhale 2 puffs as instructed two times a day. - ammonium lactate (LAC-HYDRIN) 12 % cream Apply 1 application to affected area as needed. - Insulin [place], Disposable, (ULTICARE PEN NEEDLE) 29 gauge x 1/2 USE FIVE TIMES A DAY - venlafaxine ER (EFFEXOR XR) 150 mg 24 hr capsule Take 1 capsule by mouth once daily. - flash glucose sensor (FREESTYLE TERRELL 2 SENSOR) kit Use to check blood glucose 4 times daily. - flash glucose scanning reader (FREESTYLE TERRELL 2 READER) 1 Each four times daily. - albuterol HFA (PROVENTIL HFA, VENTOLIN HFA) 90 mcg/actuation inhaler Inhale 2 Puffs as instructed every 4 hours as needed. - blood sugar diagnostic (BLOOD GLUCOSE TEST) test strip Test blood sugar(s) 2 times daily: fasting am and 2 hour after largest meal. Dx: Type 2 DM - Controlled E11.9 Insulin: Yes - potassium chloride (K-TAB) 10 mEq tablet Take 2 tablets by mouth daily with breakfast. - Lancets lancets Test blood sugar(s) 2 times daily. Dx: Type 2 DM - Uncontrolled E11.65 Insulin: Yes - CPAP 11 cm via nasal mask with 20 min ramp and humidification. - OXYGEN, HOME THERAPY, 2 L/min by Nasal Cannula route continuous. - COMPOUNDED PRESCRIPTION C-PAP MASK HOSES, FILTERS - glucose 4 gram chewable tablet Take 4 tablets by mouth as needed. For sugar less than 70 - COMPOUNDED PRESCRIPTION COMPRESSION STOCKINGS 20-30 mm Knee high. DX: venous insufficiency - COMPOUNDED PRESCRIPTION cpap supplies: sleep apnea - COMPOUNDED PRESCRIPTION CPAP mask Problem List As Of Date 07/28/2024 Noted Resolved Staghorn renal calculus [N20.0] 05/03/2007 RENAL COLIC [N23] 05/03/2007 Urinary complications [PAR5702] 03/21/2008 11/19/2015 HYDRONEPHROSIS [N13.30] 03/21/2008 Acute kidney [...] Depression [F32.A] DDD (degenerative disc disease), lumbar [M51.36* IBS (irritable bowel syndrome) [K58.9] Panic disorder [F41.0] Obstructive sleep apnea syndrome [G47.33] Hypertension, essen (more content not included)... Normal [facility] ROSA MARIA MENJIVAR ([id number]) 1965 F Date Time Provider Department 07/13/24 SAMIRA, SAMSON J FAMPWS During your visit today, we recorded the following information about you: Afia Lee RN 07/13/2024 1:04 PM Signed Patient calls and states that she is out of medication and pharmacy had told her that she is needing prior authorization from insurance. PRIOR AUTHORIZATION Medication for Prior Authorization: insulin lispro (Humalog) Insurance Company: Medicaid Patient insurance ID number: [id number] TONY Ivan Janice, LPN 07/13/2024 1:49 PM Signed Electronic PA requested. Marlen Nixon LPN 07/13/2024 2:38 PM Addendum Unable to complete this electronically. Will contact the pharmacy to see what the issue is as the message the office is getting from PA says Closed 07/13/2024 1:51 PM Close reason: Electronic Prior Authorization not supported. Submit via other methods. Note from payer: Electronic prior authorization not supported as days supply was not specified, please resubmit request. Please resolve and resubmit. Payer: [facility] Please note the PA response saying day supply was not specified. Specify and resubmit Ema Joseph RN 07/13/2024 4:18 PM Signed Pt called in asking about the PA on this medication. I let her know the PA departments message, Unable to complete this electronically. Will contact the pharmacy to see what the issue is as the message the office is getting from PA says. I told her I would have someone from the PA department get a hold of her once they knew something. Pt states she is out of medication. Please call back. TONY Horowitz Janice, LPN 07/13/2024 4:44 PM Signed ROSA MARIA MENJIVAR (Guillen: [id number]) - [id number] HumaLOG KwikPen 200UNIT/ML pen-injectors status: PA Request Created: July 13, 2024 [id number] Sent: July 13, 2024 Marlen Nixon LPN 07/13/2024 4:49 PM Signed ROSA MARIA MENJIVAR (Guillen: [id number]) PA Rx #: [id number] Need Help? Call us at Outcome Approved today by [place] [employer] 2017 Your PA request for [id number] was approved for 365 days. The PA# assigned is [id number]. Effective Date: 07/13/2024 Authorization Expiration Date: 07/12/2025 Drug HumaLOG KwikPen 200UNIT/ML pen-injectors Form [place] Medicaid [email or web address] Electronic PA Form (2016 [facility]) Original Claim Info [id number]:PA REQUIRED-CONTACT [place] [employer] DESK @ [phone] 100U PREF;7068W:DD SEV 3-5;7404W:DC SEV 3 DUR/PPS Pharmacy notified.they will notify pt when completed. Allergies As of Date: 07/13/2024 Noted Allergy Reaction JARDIANCE (EMPAGLIFLOZIN) 07/23/2022 9 - Itching Comments: Pt reported yeast infection MORPHINE 10/14/2010 9 - Itching TETANUS AND DIPHTHERIA TOXOIDS, A*11/10/2012 14 - Other: See Comments Comments: ? Reactive lymphadenopathy TORADOL (KETOROLAC TROMETHAMINE) 11/24/2007 Comments: Heart racing and nightmares Date Reviewed: 06/06/2024 Reviewed by: Rich Irby LPN - Fully Assessed Reason for Visit: Insurance Authorization [9203] Visit Diagnosis:Type 2 diabetes mellitus without complication, with long-term current use of insulin ([facility]) [E11.9, Z79.4] Order(s):insulin lispro (HUMALOG) 200 unit/mL (3 mL) units am, 3 units afternoon, 94 units before evening meal for 30 daysDisp: 60 mLRfl: 0 Prescriptions as of 07/13/2024 - gabapentin (NEURONTIN) 300 mg capsule Take 1 capsule by mouth three times a day for 30 days. - furosemide (LASIX) 40 mg tablet Take 1 tablet by mouth once daily. - busPIRone (BUSPAR) 7.5 mg tablet Take 1 tablet by mouth three times a day. - metFORMIN ER (GLUCOPHAGE XR) 500 mg 24 hr tablet Take 2 tablets by mouth two times a day with meals. - lisinopril-hydroCHL OROthiazide (ZESTORETIC) 20-12.5 mg per tablet Take 2 tablets by mouth once daily. - atorvastatin (LIPITOR) 40 mg tablet Take 1 tablet by mouth daily at bedtime. - atenolol (TENORMIN) 50 mg tablet Take 1 tablet by mouth once daily. - insulin glargine (LANTUS SOLOSTAR U-100 INSULIN) 100 unit/mL (3 mL) Inject 83 Units subcutaneously two times a day. - insulin lispro (HUMALOG) 200 unit/mL (3 mL) injection 63 units am, 3 units afternoon, 94 units before evening meal for 30 days - venlafaxine ER (EFFEXOR XR) 75 mg 24 hr capsule TAKE 1 CAPSULE BY MOUTH DAILY IN ADDITION TO 150 MG A DAY. - magnesium oxide 400 mg magnesium tab Take 400 mg by mouth two times a day. - omeprazole (PRILOSEC) 20 mg capsule Take 1 capsule by mouth daily before breakfast. 1/2 hr before meal. - atenolol (TENORMIN) 25 mg tablet Take 1 tablet by mouth once daily. Take with 50 mg tablet for total daily dose of 75 mg. - insulin lispro (HUMALOG) 200 unit/mL (3 mL) injection 63 units am, 3 units afternoon, 94 units before evening meal - dulaglutide (TRULICITY (more content not included)... Normal [facility] 07-02-2024 [facility] Telephone ([facility]) ---- ROSA MARIA MENJIVAR ([id number]) 1965 F Date Time Provider Department 07/02/24 SAMSON HOGAN [facility] During your visit today, we recorded the following information about you: Ema Joseph RN 07/02/2024 4:09 PM Signed Pt was called by PSS to rescheduled missed appointment from 06/29/24. Pt was supposed to have, 4 week Follow up BP; Trulicity Follow up; 40 minutes per CH. Pt states she will have to call back in when her daughter is home to see when she could bring her in. TONY Horowitz Amanda, RN 07/04/2024 8:13 AM Signed Called and left a voicemail for the Patient to call back and ask for a nurse to receive the providers message. Ema Joseph RN Allergies As of Date: 07/02/2024 Noted Allergy Reaction JARDIANCE (EMPAGLIFLOZIN) 07/23/2022 9 - Itching Comments: Pt reported yeast infection MORPHINE 10/14/2010 9 - Itching TETANUS AND DIPHTHERIA TOXOIDS, A*11/10/2012 14 - Other: See Comments Comments: ? Reactive lymphadenopathy TORADOL (KETOROLAC TROMETHAMINE) 11/24/2007 Comments: Heart racing and nightmares Date Reviewed: 06/06/2024 Reviewed by: Rich Irby LPN - Fully Assessed Reason for Visit: Appointment [186] Prescriptions as of 07/10/2024 - gabapentin (NEURONTIN) 300 mg capsule Take 1 capsule by mouth three times a day for 30 days. - venlafaxine ER (EFFEXOR XR) 75 mg 24 hr capsule TAKE 1 CAPSULE BY MOUTH DAILY IN ADDITION TO 150 MG A DAY. - magnesium oxide 400 mg magnesium tab Take 400 mg by mouth two times a day. - omeprazole (PRILOSEC) 20 mg capsule Take 1 capsule by mouth daily before breakfast. 1/2 hr before meal. - furosemide (LASIX) 40 mg tablet Take 1 tablet by mouth once daily. - busPIRone (BUSPAR) 7.5 mg tablet Take 1 tablet by mouth three times a day. - atenolol (TENORMIN) 25 mg tablet Take 1 tablet by mouth once daily. Take with 50 mg tablet for total daily dose of 75 mg. - insulin lispro (HUMALOG) 200 unit/mL (3 mL) injection 63 units am, 3 units afternoon, 94 units before evening meal - insulin lispro (HUMALOG) 200 unit/mL (3 mL) injection 63 units am, 3 units afternoon, 94 units before evening meal - dulaglutide (TRULICITY) 0.75 mg/0.5 mL pen injector Inject 0.75 mg subcutaneously one time a week. - spironolactone (ALDACTONE) 25 mg tablet Take 25 mg by mouth once daily. - mometasone-formoter ol (DULERA) 50-5 mcg/actuation HFA aerosol inhaler Inhale 2 puffs as instructed two times a day. - atenolol (TENORMIN) 50 mg tablet Take 1 tablet by mouth once daily. - atorvastatin (LIPITOR) 40 mg tablet Take 1 tablet by mouth daily at bedtime. - lisinopril-hydroCHL OROthiazide (ZESTORETIC) 20-12.5 mg per tablet Take 2 tablets by mouth once daily. - metFORMIN ER (GLUCOPHAGE XR) 500 mg 24 hr tablet Take 2 tablets by mouth two times a day with meals. - ammonium lactate (LAC-HYDRIN) 12 % cream Apply 1 application to affected area as needed. - Insulin [place], Disposable, (ULTICARE PEN NEEDLE) 29 gauge x 1/2 USE FIVE TIMES A DAY - venlafaxine ER (EFFEXOR XR) 150 mg 24 hr capsule Take 1 capsule by mouth once daily. - flash glucose sensor (InventicSTYLE TERRELL 2 SENSOR) kit Use to check blood glucose 4 times daily. - insulin glargine (LANTUS SOLOSTAR U-100 INSULIN) 100 unit/mL (3 mL) Inject 83 Units subcutaneously two times a day. - flash glucose scanning reader (InventicSTYLE TERRELL 2 READER) 1 Each four times daily. - albuterol HFA (PROVENTIL HFA, VENTOLIN HFA) 90 mcg/actuation inhaler Inhale 2 Puffs as instructed every 4 hours as needed. - blood sugar diagnostic (BLOOD GLUCOSE TEST) test strip Test blood sugar(s) 2 times daily: fasting am and 2 hour after largest meal. Dx: Type 2 DM - Controlled E11.9 Insulin: Yes - potassium chloride (K-TAB) 10 mEq tablet Take 2 tablets by mouth daily with breakfast. - Lancets lancets Test blood sugar(s) 2 times daily. Dx: Type 2 DM - Uncontrolled E11.65 Insulin: Yes - CPAP 11 cm via nasal mask with 20 min ramp and humidification. - OXYGEN, HOME THERAPY, 2 L/min by Nasal Cannula route continuous. - COMPOUNDED PRESCRIPTION C-PAP MASK HOSES, FILTERS - glucose 4 gram chewable tablet Take 4 tablets by mouth as needed. For sugar less than 70 - COMPOUNDED PRESCRIPTION COMPRESSION STOCKINGS 20-30 mm Knee high. DX: venous insufficiency - COMPOUNDED PRESCRIPTION cpap supplies: sleep apnea - COMPOUNDED PRESCRIPTION CPAP mask Problem List As Of Date 07/02/2024 Noted Resolved Staghorn renal calculus [N20.0] 05/03/2007 RENAL COLIC [N23] 05/03/2007 Urinary complications [MSG4827] 03/21/2008 11/19/2015 HYDRONEPHROSIS [N13.30] 03/21/2008 Acute kidney failure, unspecified (HCC) [N17.9] 03/21/2008 01/17/2017 CALCULUS OF URETER [N20.1] 03/21/2008 FB BLADDER AND URETHRA [T19.1XXA, T19.0XXA] 06/04/2008 Malignant neoplasm of kidney excluding renal pe*11/21/2008 06/25/2015 (more content not included)... [facility] ---- ROSA MARIA MENJIVAR ([id number]) 1965 F Date Time Provider Department 06/25/24 SAMSON HOGAN [facility] During your visit today, we recorded the following information about you: Anny Darling MA 06/25/2024 12:45 PM Addendum Type of letter/form/fax request - Certificate of Medical Necessity: Oxygen Form received from fax on 1 floor and placed on MD desk (Mary Morales) for completion. Completed form needs to be faxed to Miriam [phone] Route to MERLENE when form completed for processing Routed to Lu as pt was seen in May 2024 by her. Mary Morales APRN.[facility] 06/25/2024 3:43 PM Signed Letter complete. Mary Morales APRN.[employer]PM ARCHITECT 06/25/2024 4:51 PM Signed I did a letter. Hopefully, Lu will be back tomorrow to complete. Becky Jimenez MA 06/26/2024 9:58 AM Signed [facility] Becky Jimenez MA June 26, 2024 9:58 AM Allergies As of Date: 06/25/2024 Noted Allergy Reaction JARDIANCE (EMPAGLIFLOZIN) 07/23/2022 9 - Itching Comments: Pt reported yeast infection MORPHINE 10/14/2010 9 - Itching TETANUS AND DIPHTHERIA TOXOIDS, A*11/10/2012 14 - Other: See Comments Comments: ? Reactive lymphadenopathy TORADOL (KETOROLAC TROMETHAMINE) 11/24/2007 Comments: Heart racing and nightmares Date Reviewed: 06/06/2024 Reviewed by: Rich Irby LPN - Fully Assessed Reason for Visit: Forms [913] Cmt: Miriam Prescriptions as of 06/26/2024 - gabapentin (NEURONTIN) 300 mg capsule Take 1 capsule by mouth three times a day for 30 days. - venlafaxine ER (EFFEXOR XR) 75 mg 24 hr capsule TAKE 1 CAPSULE BY MOUTH DAILY IN ADDITION TO 150 MG A DAY. - magnesium oxide 400 mg magnesium tab Take 400 mg by mouth two times a day. - omeprazole (PRILOSEC) 20 mg capsule Take 1 capsule by mouth daily before breakfast. 1/2 hr before meal. - furosemide (LASIX) 40 mg tablet Take 1 tablet by mouth once daily. - busPIRone (BUSPAR) 7.5 mg tablet Take 1 tablet by mouth three times a day. - atenolol (TENORMIN) 25 mg tablet Take 1 tablet by mouth once daily. Take with 50 mg tablet for total daily dose of 75 mg. - insulin lispro (HUMALOG) 200 unit/mL (3 mL) injection 63 units am, 3 units afternoon, 94 units before evening meal - insulin lispro (HUMALOG) 200 unit/mL (3 mL) injection 63 units am, 3 units afternoon, 94 units before evening meal - dulaglutide (TRULICITY) 0.75 mg/0.5 mL pen injector Inject 0.75 mg subcutaneously one time a week. - spironolactone (ALDACTONE) 25 mg tablet Take 25 mg by mouth once daily. - mometasone-formoter ol (DULERA) 50-5 mcg/actuation HFA aerosol inhaler Inhale 2 puffs as instructed two times a day. - atenolol (TENORMIN) 50 mg tablet Take 1 tablet by mouth once daily. - atorvastatin (LIPITOR) 40 mg tablet Take 1 tablet by mouth daily at bedtime. - lisinopril-hydroCHL OROthiazide (ZESTORETIC) 20-12.5 mg per tablet Take 2 tablets by mouth once daily. - metFORMIN ER (GLUCOPHAGE XR) 500 mg 24 hr tablet Take 2 tablets by mouth two times a day with meals. - ammonium lactate (LAC-HYDRIN) 12 % cream Apply 1 application to affected area as needed. - Insulin [place], Disposable, (ULTICARE PEN NEEDLE) 29 gauge x 1/2 USE FIVE TIMES A DAY - venlafaxine ER (EFFEXOR XR) 150 mg 24 hr capsule Take 1 capsule by mouth once daily. - flash glucose sensor (FREESTYLE TERRELL 2 SENSOR) kit Use to check blood glucose 4 times daily. - insulin glargine (LANTUS SOLOSTAR U-100 INSULIN) 100 unit/mL (3 mL) Inject 83 Units subcutaneously two times a day. - flash glucose scanning reader (FREESTYLE TERRELL 2 READER) 1 Each four times daily. - albuterol HFA (PROVENTIL HFA, VENTOLIN HFA) 90 mcg/actuation inhaler Inhale 2 Puffs as instructed every 4 hours as needed. - blood sugar diagnostic (BLOOD GLUCOSE TEST) test strip Test blood sugar(s) 2 times daily: fasting am and 2 hour after largest meal. Dx: Type 2 DM - Controlled E11.9 Insulin: Yes - potassium chloride (K-TAB) 10 mEq tablet Take 2 tablets by mouth daily with breakfast. - Lancets lancets Test blood sugar(s) 2 times daily. Dx: Type 2 DM - Uncontrolled E11.65 Insulin: Yes - CPAP 11 cm via nasal mask with 20 min ramp and humidification. - OXYGEN, HOME THERAPY, 2 L/min by Nasal Cannula route continuous. - COMPOUNDED PRESCRIPTION C-PAP MASK HOSES, FILTERS - glucose 4 gram chewable tablet Take 4 tablets by mouth as needed. For sugar less than 70 - COMPOUNDED PRESCRIPTION COMPRESSION STOCKINGS 20-30 mm Knee high. DX: venous insufficiency - COMPOUNDED PRESCRIPTION cpap supplies: sleep apnea - COMPOUNDED PRESCRIPTION CPAP mask Problem List As Of Date 06/25/2024 Noted Resolved Staghorn renal calculus [N20.0] 05/03/2007 RENAL COLIC [N23] 05/03/2007 Urinary complications [[id number]] 03/21/2008 11/19/2015 HYDRONEPHROSIS [N13.30] 03/21/2008 Acute kidney failure, unspecified (HCC) [ (more content not included)... [facility] (FAMPWS[facility] ---- ROSA MARIA MENJIVAR ([id number]) 1965 F Date Time Provider Department 06/07/24 LU GREENE During your visit today, we recorded the following information about you: Afia Lee RN 06/07/2024 10:28 AM Signed Patient calling and is asking about lab results. Patient does not have any signs of infection, patient is not complaining of any urinary symptoms. Please review and advise, TONY Ivan Christy, KOSTAS.[employer] BPM ARCHITECT 06/08/2024 11:11 AM Signed Her glucose is up, but we are restarting her trulicity, so that should help. Her white count is up a little bit. Per yesterday's note, there are no s/s of infection. Her magnesium is low. Lets have her go ahead and start magnesium twice daily. I sent this to the pharmacy. Her cholesterol panel looks okay, except her triglycerides are elevated. This is likely d/t the elevated glucose. Lets repeat the magnesium and the blood count next week. The orders are in. Lu Greene APRN.Anny Winchester MA 06/08/2024 11:39 AM Signed Pt notified and voiced understanding. Anny Darling MA Allergies As of Date: 06/07/2024 Noted Allergy Reaction JARDIANCE (EMPAGLIFLOZIN) 07/23/2022 9 - Itching Comments: Pt reported yeast infection MORPHINE 10/14/2010 9 - Itching TETANUS AND DIPHTHERIA TOXOIDS, A*11/10/2012 14 - Other: See Comments Comments: ? 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 - omeprazole (PRILOSEC) 20 mg capsule Take 1 capsule by mouth daily before breakfast. 1/2 hr before meal. - furosemide (LASIX) 40 mg tablet Take 1 tablet by mouth once daily. - busPIRone (BUSPAR) 7.5 mg tablet Take 1 tablet by mouth three times a day. - atenolol (TENORMIN) 25 mg tablet Take 1 tablet by mouth once daily. Take with 50 mg tablet for total daily dose of 75 mg. - insulin lispro (HUMALOG) 200 unit/mL (3 mL) injection 63 units am, 3 units afternoon, 94 units before evening meal - insulin lispro (HUMALOG) 200 unit/mL (3 mL) injection 63 units am, 3 units afternoon, 94 units before evening meal - dulaglutide (TRULICITY) 0.75 mg/0.5 mL pen injector Inject 0.75 mg subcutaneously one time a week. - spironolactone (ALDACTONE) 25 mg tablet Take 25 mg by mouth once daily. - mometasone-formoter ol (DULERA) 50-5 mcg/actuation HFA aerosol inhaler Inhale 2 puffs as instructed two times a day. - atenolol (TENORMIN) 50 mg tablet Take 1 tablet by mouth once daily. - atorvastatin (LIPITOR) 40 mg tablet Take 1 tablet by mouth daily at bedtime. - lisinopril-hydroCHL OROthiazide (ZESTORETIC) 20-12.5 mg per tablet Take 2 tablets by mouth once daily. - metFORMIN ER (GLUCOPHAGE XR) 500 mg 24 hr tablet Take 2 tablets by mouth two times a day with meals. - gabapentin (NEURONTIN) 300 mg capsule Take 1 capsule by mouth three times a day for 30 days. Appointment needed for further refills. - venlafaxine ER (EFFEXOR XR) 75 mg 24 hr capsule TAKE 1 CAPSULE BY MOUTH DAILY IN ADDITION TO 150 MG A DAY. - ammonium lactate (LAC-HYDRIN) 12 % cream Apply 1 application to affected area as needed. - Insulin [place], Disposable, (ULTICARE PEN NEEDLE) 29 gauge x 1/2 USE FIVE TIMES A DAY - venlafaxine ER (EFFEXOR XR) 150 mg 24 hr capsule Take 1 capsule by mouth once daily. - flash glucose sensor (FREESTYLE TERRELL 2 SENSOR) kit Use to check blood glucose 4 times daily. - insulin glargine (LANTUS SOLOSTAR U-100 INSULIN) 100 unit/mL (3 mL) Inject 83 Units subcutaneously two times a day. - flash glucose scanning reader (FREESTYLE TERRELL 2 READER) 1 Each four times daily. - albuterol HFA (PROVENTIL HFA, VENTOLIN HFA) 90 mcg/actuation inhaler Inhale 2 Puffs as instructed every 4 hours as needed. - blood sugar diagnostic (BLOOD GLUCOSE TEST) test strip Test blood sugar(s) 2 times daily: fasting am and 2 hour after largest meal. Dx: Type 2 DM - Controlled E11.9 Insulin: Yes - potassium chloride (K-TAB) 10 mEq tablet Take 2 tablets by mouth daily with breakfast. - Lancets lancets Test blood sugar(s) 2 times daily. Dx: Type 2 DM - Uncontrolled E11.65 Insulin: Yes - CPAP 11 cm via nasal mask with 20 min ramp and humidification. - OXYGEN, HOME THERAPY, 2 L/min by Nasal Cannula route continuous. - COMPOUNDED PRESCR (more content not included)... Normal [facility] CBC W Auto Differential pane l (Bld)on 06-06-2024 Basophils (Bld) [#/Vol] 0.08 10*3/uL [facility] Basophils/100 WBC (Bld) 0.6 % [facility] Differential cell count method Nom (Bld) Auto [facility] Eosinophils (Bld) [#/Vol] 0.66 10*3/uL High [facility] Eosinophils/100 WBC (Bld) 4.6 % [facility] Erythrocyte distribution width (RBC) [Ratio] 14.7 % 11.5 - 15.0 % [facility] Hematocrit (Bld) [Volume fraction] 42.5 % 36.0 - 46.0 % [facility] Hemoglobin (Bld) [Mass/Vol] 13.2 g/dL 11.5 - 15.5 g/dL [facility] Immature granulocytes (Bld) [#/Vol] 0.07 10*3/uL [facility] Immature granulocytes/100 WBC (Bld) 0.5 % [facility] Interpretation and review of laboratory results Abnormal [facility] Lymphocytes (Bld) [#/Vol] 2.65 10*3/uL [facility] Lymphocytes/100 WBC (Bld) 18.6 % [facility] MCH (RBC) [Entitic mass] 26 pg 26. 0 - 34.0 pg [facility] MCHC (RBC) [Mass/Vol] 31.1 g/dL 30.5 - 36.0 g/dL [facility] MCV (RBC) [Entitic vol] 83.8 fL 80.0 - 100.0 fL [facility] Monocytes (Bld) [#/Vol] 0.95 10*3/uL High [facility] Monocytes/100 WBC (Bld) 6.7 % [facility] Neutrophils (Bld) [#/Vol] 9.82 10*3/uL High [facility] Neutrophils/100 WBC (Bld) 69 % [facility] Nucleated RBC (Bld) [#/Vol] [facility] Nucleated RBC/100 WBC (Bld) [Ratio] 0 % /100 WBC [facility] Platelet mean volume (Bld) [Entitic vol] 10.1 fL 9.0 - 12.7 fL [facility] Platelets (Bld) [#/Vol] 285 10*3/uL [facility] RBC (Bld) [#/Vol] 5.07 10*6/uL 3.90 - 5.2 0 m/uL [facility] WBC (Bld) [#/Vol] 14.23 10*3/uL High [facility] Basophils (Bld) [#/Vol] 0.08 10*3/uL Normal <0.11 [facility] Comment on above: Order Comment: Speci men Type: BLOOD SPECIMENOrdering Facility: [facility] Address: [address] [place] [address] Performed By: #### 5 7021-8 ####[facility] LABCLIA [id number] [place] [address] [place] Basophils/100 WBC (Bld) 0.6 % Normal [facility] Comment on above: Order Comment: Speci men Type: BLOOD SPECIMENOrdering Facility: [facility] Address: [address] [place] [address] Performed By: #### 5 7021-8 ####[facility] LABCLIA [id number] [place] [address] [place] Differential cell count method Nom (Bld) Auto Normal [facility] Comment on above: Order Comment: Speci men Type: BLOOD SPECIMENOrdering Facility: [facility] Address: [address] [place] [address] Performed By: #### 5 7021-8 ####[facility] LABCLIA [id number] [place] [address] [place] Eosinophils (Bld) [#/Vol] 0.66 10*3/uL High <0.46 [facility] Comment on above: Order Comment: Speci men Type: BLOOD SPECIMENOrdering Facility: [facility] Address: [address] [place] [address] Performed By: #### 5 7021-8 ####[facility] LABCLIA [id number] [address] [place] Eosinophils/100 WBC (Bld) 4.6 % Normal [facility] Comment on above: Order Comment: Speci men Type: BLOOD SPECIMENOrdering Facility: [facility] Address: [address] [place] [address] Performed By: #### 5 7021-8 ####[facility] LABCLIA [id number] [place] [address] [place] Erythrocyte distribution width (RBC) [Ratio] 14.7 % Normal 11.5-15.0 [facility] Comment on above: Order Comment: Speci men Type: BLOOD SPECIMENOrdering Facility: [facility] Address: [address] [place] [address] Performed By: #### 5 7021-8 ####[facility] LABIA [id number] [place] [address] [place] Hematocrit (Bld) [Volume fraction] 42.5 % Normal 36.0-46.0 [facility] Comment on above: Order Comment: Speci men Type: BLOOD SPECIMENOrdering Facility: [facility] Address: [address] [place] [address] Performed By: #### 5 7021-8 ####[facility] LABIA [id number] [place] [address] [place] Hemoglobin (Bld) [Mass/Vol] 13.2 g/dL Normal 11.5-15.5 [facility] Comment on above: Order Comment: Speci men Type: BLOOD SPECIMENOrdering Facility: [facility] Address: [address] [place] [address] Performed By: #### 5 7021-8 ####[facility] LABIA [id number] [place] [address] [place] Immature granulocytes (Bld) [#/Vol] 0.07 10*3/uL Normal <0.10 [facility] Comment on above: Order Comment: Speci men Type: BLOOD SPECIMENOrdering Facility: [facility] Address: [address] [place] [address] Performed By: #### 5 7021-8 ####[facility] LABIA [id number] [place] [address] [place] Immature granulocytes/100 WBC (Bld) 0.5 % Normal [facility] Comment on above: Order Comment: Speci men Type: BLOOD SPECIMENOrdering Facility: [facility] Address: [address] [place] [address] Performed By: #### 5 7021-8 ####[facility] LABCLIA [id number] [address], [place] [address] [place] Lymphocytes (Bld) [#/Vol] 2.65 10*3/uL Normal 1.00-4.0 0 [facility] Comment on above: Order Comment: Speci men Type: BLOOD SPECIMENOrdering Facility: [facility] Address: [address] [place] [address] Performed By: #### 5 7021-8 ####[facility] LABCLIA [id number] [place] [address] [place] Lymphocytes/100 WBC (Bld) 18.6 % Normal [facility] Comment on above: Order Comment: Speci men Type: BLOOD SPECIMENOrdering Facility: [facility] Address: [address] [place] [address] Performed By: #### 5 7021-8 ####[facility] LABCLIA [id number] [address], [facility] [place] MCH (RBC) [Entitic mass] 26.0 pg Normal 26.0-34.0 [facility] Comment on above: Order Comment: Speci men Type: BLOOD SPECIMENOrdering Facility: [facility] Address: [address] [place] [address] Performed By: #### 5 7021-8 ####[facility] LABCLIA [id number] [place] [id number] [place] MCHC (RBC) [Mass/Vol] 31.1 g/dL Normal 30.5-36.0 [facility] Comment on above: Order Comment: Speci men Type: BLOOD SPECIMENOrdering Facility: [facility] Address: [address] [place] [address] Performed By: #### 5 7021-8 ####[facility] LABCLIA [id number] [place] [address] [place] MCV (RBC) [Entitic vol] 83.8 fL Normal 80.0-100.0 [facility] Comment on above: Order Comment: Speci men Type: BLOOD SPECIMENOrdering Facility: [facility] Address: [address] [place] [address] Performed By: #### 5 7021-8 ####[facility] LABCLIA [id number] [place] [address] [place] Monocytes (Bld) [#/Vol] 0.95 10*3/uL High <0.87 [facility] Comment on above: Order Comment: Speci men Type: BLOOD SPECIMENOrdering Facility: [facility] Address: [address] [place] [address] Performed By: #### 5 7021-8 ####[facility] LABCLIA [id number] [place] [address] [place] Monocytes/100 WBC (Bld) 6.7 % Normal [facility] Comment on above: Order Comment: Speci men Type: BLOOD SPECIMENOrdering Facility: [facility] Address: [address] [place] [address] Performed By: #### 5 7021-8 ####[facility] LABCLIA [id number] [place] [id number] [place] Neutrophils (Bld) [#/Vol] 9.82 10*3/uL High 1.45-7.5 0 [facility] Comment on above: Order Comment: Speci men Type: BLOOD SPECIMENOrdering Facility: [facility] Address: [address] [place] [address] Performed By: #### 5 7021-8 ####[facility] LABCLIA [id number] [place] [id number] [place] Neutrophils/100 WBC (Bld) 69.0 % Normal [facility] Comment on above: Order Comment: Speci men Type: BLOOD SPECIMENOrdering Facility: [facility] Address: [address] [place] [address] Performed By: #### 5 7021-8 ####[facility] LABCLIA [id number] [place] [address] [place] Nucleated RBC (Bld) [#/Vol] 10*3/uL Normal <0.01 [facility] Comment on above: Order Comment: Speci men Type: BLOOD SPECIMENOrdering Facility: [facility] Address: [address] [place] [address] Performed By: #### 5 7021-8 ####[facility] LABCLIA [id number] [place] [address] [place] Nucleated RBC/100 WBC (Bld) [Ratio] 0.0 /100 WBC Normal [facility] Comment on above: Order Comment: Speci men Type: BLOOD SPECIMENOrdering Facility: [facility] Address: [address] [place] [address] Performed By: #### 5 7021-8 ####[facility] LABIA [id number] [place] [address] [place] Platelet mean volume (Bld) [Entitic vol] 10.1 fL Normal 9.0-12.7 [facility] Comment on above: Order Comment: Speci men Type: BLOOD SPECIMENOrdering Facility: [facility] Address: [address] [place] [address] Performed By: #### 5 7021-8 ####[facility] LABCLIA [id number] [place] [id number] [place] Platelets (Bld) [#/Vol] 285 10*3/uL Normal 150-400 [facility] Comment on above: Order Comment: Speci men Type: BLOOD SPECIMENOrdering Facility: [facility] Address: [address] [place] [address] Performed By: #### 5 7021-8 ####[facility] LABCLIA [id number] [place] [address] [place] RBC (Bld) [#/Vol] 5.07 10*6/uL Normal 3.90-5.20 [facility] Comment on above: Order Comment: Speci men Type: BLOOD SPECIMENOrdering Facility: [facility] Address: [address] [place] [address] Performed By: #### 5 7021-8 ####[facility] LABIA [id number] [place] [address] [place] WBC (Bld) [#/Vol] 14.23 10*3/uL High 3.70-11.00 [facility] Comment on above: Order Comment: Speci men Type: BLOOD SPECIMENOrdering Facility: [facility] Address: [address] [place] [address] Performed By: #### 5 7021-8 ####[facility] LABIA [id number] [address] OF PER [place] 06-06-2024 [facility] ROSA MARIA MENJIVAR ([id number]) 1965 F Date Time Provider Department 06/06/24 9:20 AM LU GREENE FAMPWS During your visit today, we recorded the following information about you: Pulse Respiration Blood pressure Weight 97/minute 18/minute 148/88 155.6 kg uL Greene APRN.[employer] BPM ARCHITECT 06/06/2024 10:37 AM Signed Increase your atenolol dosage by taking an additional 25 mg with your current 50 mg dose (total 75 mg) as discussed; we?ll recheck your blood pressure in one month to see how it is working. Increase your BuSpar dose from 5 mg three times a day to 7.5 mg three times a day for better anxiety control. A COVID-19 (NGI) shot was given today. Lab orders have been sent for an A1c, cholesterol panel, CBC, CMP (electrolytes, kidney and liver function, glucose), magnesium level, and a stool screening. Please get these blood tests done as soon as possible. An imaging study of your legs has been ordered to evaluate circulation. Please schedule and complete this test. Refill orders have been sent for your omeprazole and Lasix. Also, the Byetta prescription has been re-sent to the pharmacy so we can address your blood sugar control. Continue your insulin regimen (Lantus and Humalog) as previously instructed. A gynecology referral has been ordered for a Pap smear and to schedule a mammogram. Please arrange to complete these as recommended. Verify with your insurance about the shingles vaccine coverage at the doctor?s office. If confirmed, we will administer the shingles vaccine at your next visit. Monitor your legs for any signs of infection such as increased redness, pain, fever, or chills; if these occur, get checked promptly. Please follow these steps after leaving the clinic. Recheck in 1 month. Lu Greene APRN.[employer] ARCHITECT 06/06/2024 1:04 PM Addendum This is a 58 year old female who presents today with: Rosa Maria is a 58-year-old female with a history of DM, HTN, and anxiety, presenting for a medication check and evaluation of lower extremity skin changes. HISTORY OF PRESENT ILLNESS: Lower Extremity Skin Changes: - Pruritic, horrible looking bumps on legs x1 year. - Believes the bumps are related to water retention. - Using Lac-Hydrin cream for dry skin. - Elevating legs more frequently. - Denies shaving legs in affected areas. - Reports seeping from the bumps. - Reports awful pain and numbness in feet. Diabetes Mellitus: - Wears CGM - Reports higher blood glucose levels since discontinuing Byetta. - rare symptoms of hypoglycemia. - Increased polydipsia and polyuria. Anxiety and Depression: - Taking Effexor and BuSpar. - Experiencing sad spells and depression. - Reports increased anxiety about leaving the house and riding in cars. - Believes anxiety may be related to fear of developing dementia. - Requests increase in BuSpar dosage. Hypertension: - Reports recent elevated blood pressure readings. - Taking atenolol, lisinopril-hydrochl orothiazide, and spironolactone. - Next appointment with Dr. Macias in July or August. Menstrual Irregularities: - Still experiencing menstrual bleeding monthly. - Reports ovarian pain and mood swings. - Believes she may be going through menopause. - Last Pap smear was a long time ago. COPD Wears home O2. Follows w/ pulmonology. PAST MEDICAL HISTORY: PAST MEDICAL HISTORY Diagnosis Date Chronic hypoxemic [...] ABDOMEN W/ AND W/O CONTRAST 10/16/2021 10/16/2021 [facility] MRI w/wo IVCON: no patterns to suggest malignancy on enhancement. Normal portal and hepatic veins. Staghorn calculus in the left kidney upper pole, 3cm simple cyst attached to gallbladder duct, simple small liver cyst inferior right lobe, right adrenal adenoma with benign characteristics. OTHER right lower portion of kidney removed in 2009 PAST SURGICAL HISTORY OF Repair of right arm fx as child ALLERGIES Jardiance [Empagliflozin]; Morphine; Tetanus And Diphtheria Toxoids, Adsorbed, Adult; and Toradol [Ke (more content not included)... Normal [facility] Clarissa 06-06-2024 [facility]ALL[facility] Telephone (FAMPWS) ---- ROSA MARIA MENJIVAR ([id number]) 1965 F Date Time Provider Department 06/06/24 LU GREENE During your visit today, we recorded the following information about you: Afia Lee RN 06/06/2024 11:52 AM Signed Patient calls and states that she was just at pharmacy. Drug companies are no longer making Byetta anymore. Patient states that medication is going to need to be changed to something different. Please review and advise, TONY Ivan Christy, FRONTLOAD DRIVER.[employer] B[employer] ARCHITECT 06/06/2024 12:43 PM Signed It looks like she was switched to the byetta when the trulicity was on backorder. I would recommend changing back to trulicity or something similar, which is a weekly injection. Would she like me to go ahead and send this in? Afia Lee RN 06/06/2024 1:07 PM Signed Patient called and notified of provider recommendations below. Patient would like provider to send in new medication to pharmacy. TONY Ivan Christy, FRONTLOAD DRIVER.[employer] B[employer] ARCHITECT 06/06/2024 4:25 PM Signed I went ahead and sent the trulicity into the pharmacy. She will have to start on the lowest dose and then in 4 weeks. Please schedule the 1-month follow-up, so we can recheck blood pressure and increase the trulicity dose. Rich Irby LPN 06/06/2024 4:53 PM Signed LM to return call to office. VIANEY Murillo Stephanie, RN 06/07/2024 10:26 AM Signed Patient called and notified of below. Voices understanding. Allergies As of Date: 06/06/2024 Noted Allergy Reaction JARDIANCE (EMPAGLIFLOZIN) 07/23/2022 9 - Itching Comments: Pt reported yeast infection MORPHINE 10/14/2010 9 - Itching TETANUS AND DIPHTHERIA TOXOIDS, A*11/10/2012 14 - Other: See Comments Comments: ? Reactive lymphadenopathy TORADOL (KETOROLAC TROMETHAMINE) 11/24/2007 Comments: Heart racing and nightmares Date Reviewed: 06/06/2024 Reviewed by: Rich Irby LPN - Fully Assessed Order(s):dulaglutid e (TRULICITY) 0.75 mg/0.5 mL pen injectorInject 0.75 mg subcutaneously one time a week.Disp: 4 eachRfl: 0 Prescriptions as of 06/07/2024 - omeprazole (PRILOSEC) 20 mg capsule Take 1 capsule by mouth daily before breakfast. 1/2 hr before meal. - furosemide (LASIX) 40 mg tablet Take 1 tablet by mouth once daily. - busPIRone (BUSPAR) 7.5 mg tablet Take 1 tablet by mouth three times a day. - atenolol (TENORMIN) 25 mg tablet Take 1 tablet by mouth once daily. Take with 50 mg tablet for total daily dose of 75 mg. - insulin lispro (HUMALOG) 200 unit/mL (3 mL) injection 63 units am, 3 units afternoon, 94 units before evening meal - insulin lispro (HUMALOG) 200 unit/mL (3 mL) injection 63 units am, 3 units afternoon, 94 units before evening meal - dulaglutide (TRULICITY) 0.75 mg/0.5 mL pen injector Inject 0.75 mg subcutaneously one time a week. - spironolactone (ALDACTONE) 25 mg tablet Take 25 mg by mouth once daily. - mometasone-formoter ol (DULERA) 50-5 mcg/actuation HFA aerosol inhaler Inhale 2 puffs as instructed two times a day. - atenolol (TENORMIN) 50 mg tablet Take 1 tablet by mouth once daily. - atorvastatin (LIPITOR) 40 mg tablet Take 1 tablet by mouth daily at bedtime. - lisinopril-hydroCHL OROthiazide (ZESTORETIC) 20-12.5 mg per tablet Take 2 tablets by mouth once daily. - metFORMIN ER (GLUCOPHAGE XR) 500 mg 24 hr tablet Take 2 tablets by mouth two times a day with meals. - gabapentin (NEURONTIN) 300 mg capsule Take 1 capsule by mouth three times a day for 30 days. Appointment needed for further refills. - venlafaxine ER (EFFEXOR XR) 75 mg 24 hr capsule TAKE 1 CAPSULE BY MOUTH DAILY IN ADDITION TO 150 MG A DAY. - ammonium lactate (LAC-HYDRIN) 12 % cream Apply 1 application to affected area as needed. - Insulin [place], Disposable, (ULTICARE PEN NEEDLE) 29 gauge x 1/2 USE FIVE TIMES A DAY - venlafaxine ER (EFFEXOR XR) 150 mg 24 hr capsule Take 1 capsule by mouth once daily. - flash glucose sensor (FREESTYLE TERRELL 2 SENSOR) kit Use to check blood glucose 4 times daily. - insulin glargine (LANTUS SOLOSTAR U-100 INSULIN) 100 unit/mL (3 mL) Inject 83 Units subcutaneously two times a day. - flash glucose scanning reader (FREESTYLE TERRELL 2 READER) 1 Each four times daily. - albuterol HFA (PROVENTIL HFA, VENTOLIN HFA) 90 mcg/actuation inhaler Inhale 2 Puffs as instructed every 4 hours as needed. - blood sugar diagnostic (BLOOD GLUCOSE TEST) test strip Test blood sugar(s) 2 times daily: fasting am and 2 hour after largest meal. Dx: Type 2 DM - Controlled E11.9 Insulin: Yes - potassium chloride (K-TAB) 10 mEq tablet Take 2 tablets by mouth daily with breakfast. - Lancets lancets Test blood sugar(s) 2 times daily. Dx: Type 2 DM - Uncontrolled E11.65 Insulin: Yes - CPAP 11 cm via nasal mask with 20 min ramp and humidification. - OXYGEN, HOME THERAPY, 2 L/min by Nasal Cannula route continuous. (more content not included)... Normal [facility] Comprehensive metabolic 2000 panelon 06-06-2024 Albumin [Mass/Vol] 3.6 g/dL Low 3.9 - 4.9 g/dL [facility] ALP [Catalytic activity/Vol] 103 U/L 34 - 123 U/L [facility] ALT [Catalytic activity/Vol] 20 U/L 7 - 38 U/L [facility] Anion gap [Moles/Vol] 12 mmol/L 8 - 15 mmol/L [facility] AST [Catalytic activity/Vol] 23 U/L 13 - 35 U/L [facility] Bilirubin [Mass/Vol] 0.3 mg/dL 0.2 - 1 .3 mg/dL [facility] Calcium [Mass/Vol] 9.8 mg/dL 8.5 - 10. 2 mg/dL [facility] Chloride [Moles/Vol] 95 mmol/L Low 98 - 10 7 mmol/L [facility] CO2 [Moles/Vol] 32 mmol/L High 22 - 30 mmol/L [facility] Creatinine [Mass/Vol] 0.61 mg/dL 0.58 - 0.96 mg/dL [facility] GFR/1.73 sq M.predicted among non-blacks MDRD (S/P/Bld) [Vol rate/Area] 104 mL/min/{1.73_m2} - PINF [facility] Comment on above: Estimated Glomerular Filtration Rate (eGFR) is calculated using the 2020 CKD-EPI creatinine equation. This equation utilizes serum creatinine, sex, and age as parameters. The creatinine assay has traceable calibration to isotope dilution-mass spectrometry. Refer to KDIGO guidelines for clinical interpretation. In patients with unstable renal function, e.g. those with acute kidney injury, the eGFR may not accurately reflect actual GFR. Glucose [Mass/Vol] 260 mg/dL High 74 - 99 mg/dL [facility] Comment on above: The [place]ron[place] Diabete s Association (ADA) provides guidance for cutoff values for fasting glucose and random glucose. The ADA defines fasting as no caloric intake for at least 8 hours. Fasting plasma glucose results between 100 to 125 mg/dL indicate increased risk for diabetes (prediabetes). Fasting plasma glucose results greater than or equal to 126 mg/dL meet the criteria for diagnosis of diabetes. In the absence of unequivocal hyperglycemia, results should be confirmed by repeat testing. In a patient with classic symptoms of hyperglycemia or hyperglycemic crisis, random plasma glucose results greater than or equal to 200 mg/dL meet the criteria for diagnosis of diabetes. Reference: Standards of Medical Care in Diabetes 2016, [place] Diabetes Association. Diabetes Care. 2016.39(Suppl 1). Potassium [Moles/Vol] 4.1 mmol/L 3.7 - 5.1 mmol/L [facility] Protein [Mass/Vol] 7.9 g/dL 6.3 - 8.0 g/dL [facility] Sodium [Moles/Vol] 139 mmol/L 136 - 144 mmol/L [facility] Urea nitrogen [Mass/Vol] 19 mg/dL 7 - 21 mg/d L [facility] Albumin [Mass/Vol] 3.6 g/dL Low 3.9-4.9 [facility] Comment on above: Order Comment: Speci men Type: BLOOD SPECIMENOrdering Facility: [facility] Address: [facility] [place] [address] Performed By: #### 1 9123-9, LIPNF, 23458-3 ####[facility] LABCLIA [id number] [facility] [address] [place] [address] [place] ALP [Catalytic activity/Vol] 103 U/L Normal 34-123 [facility] Comment on above: Order Comment: Speci men Type: BLOOD SPECIMENOrdering Facility: [facility] Address: [address] [place] [address] Performed By: #### 1 9123-9, LIPNF, 31368-9 ####[facility] LABCLIA [id number] [address] [address] [place] ALT [Catalytic activity/Vol] 20 U/L Normal 7-38 [facility] Comment on above: Order Comment: Speci men Type: BLOOD SPECIMENOrdering Facility: [facility] Address: [address] [place] [address] Performed By: #### 1 9123-9, LIPNF, 61847-5 ####[facility] LABIA [id number] [address] [place] [address] [place] Anion gap [Moles/Vol] 12 mmol/L Normal 8-15 [facility] Comment on above: Order Comment: Speci men Type: BLOOD SPECIMENOrdering Facility: [facility] Address: [address] [place] [address] Performed By: #### 1 9123-9, LIPNF, 14402-8 ####[facility] LABCLIA [id number] [address] [address] [place] AST [Catalytic activity/Vol] 23 U/L Normal 13-35 [facility] Comment on above: Order Comment: Speci men Type: BLOOD SPECIMENOrdering Facility: [facility] Address: [address] [place] [address] Performed By: #### 1 9123-9, LIPNF, 98338-7 ####[facility] LABCLIA [id number] [address] [address] [place] Bilirubin [Mass/Vol] 0.3 mg/dL Normal 0.2-1.3 [facility] Comment on above: Order Comment: Speci men Type: BLOOD SPECIMENOrdering Facility: [facility] Address: [address] [place] [address] Performed By: #### 1 9123-9, LIPNF, 65928-2 ####[facility] LABCLIA [id number] [place] [address] [place] Calcium [Mass/Vol] 9.8 mg/dL Normal 8.5-10.2 [facility] Comment on above: Order Comment: Speci men Type: BLOOD SPECIMENOrdering Facility: [facility] Address: [address] [place] [address] Performed By: #### 1 9123-9, LIPNF, 96919-9 ####[facility] LABCLIA [id number] [place] [address] [place] Chloride [Moles/Vol] 95 mmol/L Low 98-107 [facility] Comment on above: Order Comment: Speci men Type: BLOOD SPECIMENOrdering Facility: [facility] Address: [address] [place] [address] Performed By: #### 1 9123-9, LIPNF, 48884-8 ####[facility] LABCLIA [id number] [place] [address] [place] CO2 [Moles/Vol] 32 mmol/L High 22-30 [facility] Comment on above: Order Comment: Speci men Type: BLOOD SPECIMENOrdering Facility: [facility] Address: [address] [place] [address] Performed By: #### 1 9123-9, LIPNF, 91222-3 ####[facility] LABCLIA [id number] [place] [id number] [place] Creatinine [Mass/Vol] 0.61 mg/dL Normal 0.58-0.96 [facility] Comment on above: Order Comment: Eliceo portillo Type: BLOOD SPECIMENOrdering Facility: [facility] Address: [address] [place] [address] Performed By: #### 1 9123-9, BETTINA, 18325-4 ####[facility] LABCLIA [id number] [place] [address] [place] Creatinine and Glomerular filtration rate.predicted panel (S/P/Bld) 104 mL/min/1.73m??? Normal >=60 [facility] Comment on above: Order Comment: Eliceo portillo Type: BLOOD SPECIMENOrdering Facility: [facility] Address: [address] [place] [address] Result Comment: Rosemary mated Glomerular Filtration Rate (eGFR) is calculated using the 2020 CKD-EPI creatinine equation. This equation utilizes serum creatinine, sex, and age as parameters. The creatinine assay has traceable calibration to isotope dilution-mass spectrometry. Refer to KDIGO guidelines for clinical interpretation. In patients with unstable renal function, e.g. those with acute kidney injury, the eGFR may not accurately reflect actual GFR. Performed By: #### 1 9123-9, BETTINA, 60300-8 ####[facility] LABCLIA [id number] [place] [address] [place] Glucose [Mass/Vol] 260 mg/dL High 74-99 [facility] Comment on above: Order Comment: Eliceo portillo Type: BLOOD SPECIMENOrdering Facility: [facility] Address: [address] [place] [address] Result Comment: The [place] Diabetes Association (ADA) provides guidance for cutoff values for fasting glucose and random glucose. The ADA defines fasting as no caloric intake for at least 8 hours. Fasting plasma glucose results between 100 to 125 mg/dL indicate increased risk for diabetes (prediabetes). Fasting plasma glucose results greater than or equal to 126 mg/dL meet the criteria for diagnosis of diabetes. In the absence of unequivocal hyperglycemia, results should be confirmed by repeat testing. In a patient with classic symptoms of hyperglycemia or hyperglycemic crisis, random plasma glucose results greater than or equal to 200 mg/dL meet the criteria for diagnosis of diabetes. Reference: Standards of Medical Care in Diabetes 2016, [place] Diabetes Association. Diabetes Care. 2016.39(Suppl 1). Performed By: #### 1 9123-9, LIPANGELA, 04032-5 ####[facility] LABCLIA [id number] [place] [id number] [place] Potassium [Moles/Vol] 4.1 mmol/L Normal 3.7-5.1 [facility] Comment on above: Order Comment: Speci men Type: BLOOD SPECIMENOrdering Facility: [facility] Address: [address] [place] [address] Performed By: #### 1 9123-9, LIPNF, 91332-3 ####[facility] LABCLIA [id number] [place] [address] [place] Protein [Mass/Vol] 7.9 g/dL Normal 6.3-8.0 [facility] Comment on above: Order Comment: Speci men Type: BLOOD SPECIMENOrdering Facility: [facility] Address: [address] [place] [address] Performed By: #### 1 9123-9, LIPNF, 20026-8 ####[facility] LABIA [id number] [place] [address] [place] Sodium [Moles/Vol] 139 mmol/L Normal 136-144 [facility] Comment on above: Order Comment: Speci men Type: BLOOD SPECIMENOrdering Facility: [facility] Address: [address] [place] [id number] Performed By: #### 1 9123-9, LIPNF, 59954-1 ####[facility] LABCLIA [id number] [place] [id number] [place] Urea nitrogen [Mass/Vol] 19 mg/dL Normal 7-21 [facility] Comment on above: Order Comment: Speci men Type: BLOOD SPECIMENOrdering Facility: [facility] Address: [address] [place] [address] Performed By: #### 1 9123-9, LIP, 54357-3 ####[facility] LABIA [id number] [place] [address] [place] HbA1c (Bld)on 06-06-2024 Average glucose Estimated from glycated hemoglobin (Bld) [Mass/Vol] 174 mg/dL [facility] Comment on above: eAG: (Estimated aver age glucose) is a calculated value from HgbA1c and is community relations representative of the average blood glucose level in the last 2-3 month period. HbA1c (Bld) [Mass fraction] 7.7 % High 4.3 - 5.6 % [facility] Comment on above: [place] Diabetes As sociation guidelines indicate that patients with HgbA1c in the range 5.7-6.4% are at increased risk for development of diabetes, and intervention by lifestyle modification may be beneficial. HgbA1c greater or equal to 6.5% is considered diagnostic of diabetes. Interpretation and review of laboratory results Abnormal [facility] Average glucose Estimated from glycated hemoglobin (Bld) [Mass/Vol] 174 mg/dL Normal [facility] Comment on above: Order Comment: Eliceo portillo Type: BLOOD SPECIMENOrdering Facility: [facility] Address: [address] [place] [address] Result Comment: eAG: (Estimated average glucose) is a calculated value from HgbA1c and is community relations representative of the average blood glucose level in the last 2-3 month period. Performed By: #### 5 5454-3 ####[facility] [id number] [place] [address] [place] HbA1c (Bld) [Mass fraction] 7.7 % High 4.3-5.6 [facility] Comment on above: Order Comment: Eliceo portillo Type: BLOOD SPECIMENOrdering Facility: [facility] Address: [address] [place] [address] Result Comment: Amer [place] Diabetes Association guidelines indicate that patients with HgbA1c in the range 5.7-6.4% are at increased risk for development of diabetes, and intervention by lifestyle modification may be beneficial. HgbA1c greater or equal to 6.5% is considered diagnostic of diabetes. Performed By: #### 5 5454-3 ####[facility] LABCLIA [id number] [place] [id number] [place] LIPID PANEL, NONFASTINGon Cholesterol [Mass/Vol] 118 mg/dL NINF - 200 mg/dL [facility] Comment on above: <200 mg/dL, Desirabl e 200-239 mg/dL, Borderline high >239 mg/dL, High HDL Cholesterol, Nonfasting 33 mg/dL Low 39 - PINF mg/dL [facility] Comment on above: 40-59 mg/dL, Accepta ble >59 mg/dL, High: Negative risk factor for coronary heart disease <40 mg/dL, Low: Positive risk factor for coronary heart disease LDL Cholesterol Calculated, Nonfasting 49 mg/dL NINF - 100 mg/dL [facility] Comment on above: <100 mg/dL, Optimal 100-129 mg/dL, Near optimal/above optimal 130-159 mg/dL, Borderline high 160-189 mg/dL, High >189 mg/dL, Very high Secondary prevention optimal LDL Cholesterol levels are recommended to be <70 mg/dL LDL cholesterol is calculated using the Larose-NIH equation. LDL/HDL Ratio, Nonfasting 1.48 mg/dL NI NF - 2.54 mg/dL [facility] Comment on above: Reference: 1. National Cholesterol Education Program ATP III Guideline At-A-Glance Quick Desk Reference: National Heart, Lung, and Blood [place]. National Institutes of Health. 2001: NIH Publication No. 01-3305. 2. An International Atherosclerosis Society position paper: global recommendations for the management of dyslipidemia: executive summary, Atherosclerosis. 2014: 232(2):410-413. Non HDL Cholesterol, Nonfasting 85 mg/dL NINF - 130 mg/dL [facility] Comment on above: <130 mg/dL, Optimal 130-159 mg/dL, Near optimal/above optimal 160-189 mg/dL, Borderline high 190-219 mg/dL, High >219 mg/dL, Very high Secondary prevention optimal non HDL Cholesterol levels are recommended to be <100 mg/dL Total Chol/HDL Ratio, Nonfasting 3.58 mg/dL NINF - 5.10 mg/dL [facility] Triglycerides, Nonfasting 225 mg/dL High NI NF - 150 mg/dL [facility] Comment on above: <150 mg/dL, Normal 150-199 mg/dL, Borderline high 200-499 mg/dL, High >499 mg/dL, Very high VLDL Cholesterol, Nonfasting 32 mg/dL High NINF - 30 mg/dL [facility] Cholesterol [Mass/Vol] 118 mg/dL Normal <200 [facility] Comment on above: Order Comment: Speci men Type: BLOOD SPECIMENOrdering Facility: [facility] Address: [address] [place] [address] Result Comment: <200 mg/dL, Desirable 200-239 mg/dL, Borderline high >239 mg/dL, High Performed By: #### 1 9123-9, LIPNF, 15877-3 ####[facility] LABCLIA [id number] [place] [address] [place] HDL CHOLESTEROL, NF 33 mg/dL Low >39 [facility] Comment on above: Order Comment: Eliceo portillo Type: BLOOD SPECIMENOrdering Facility: [facility] Address: [address] [place] [address] Result Comment: 40-5 9 mg/dL, Acceptable >59 mg/dL, High: Negative risk factor for coronary heart disease <40 mg/dL, Low: Positive risk factor for coronary heart disease Performed By: #### 1 9123-9, LIPNF, 71908-2 ####[facility] LABCLIA [id number] [place] [address] [place] LDL CHOLESTEROL CALCULATED, NF 49 mg/dL Normal <100 [facility] Comment on above: Order Comment: [facility] Type: BLOOD SPECIMENOrdering Facility: [facility] Address: [address] [place] [address] Result Comment: <100 mg/dL, Optimal 100-129 mg/dL, Near optimal/above optimal 130-159 mg/dL, Borderline high 160-189 mg/dL, High >189 mg/dL, Very high Secondary prevention optimal LDL Cholesterol levels are recommended to be <70 mg/dL LDL cholesterol is calculated using the Larose-NIH equation. Performed By: #### 1 9123-9, LIPNF, 86547-8 ####[facility] LABCLIA [id number] [address] [address] [place] LDL/HDL RATIO, NF 1.48 mg/dL Normal <2.54 [facility] Comment on above: Order Comment: Speci men Type: BLOOD SPECIMENOrdering Facility: [facility] Address: [address] [place] [address] Result Comment: Refe rence: 1. National Cholesterol Education Program ATP III Guideline At-A-Glance Quick Desk Reference: National Heart, Lung, and Blood [place]. National Institutes of Health. 2001: NIH Publication No. 01-3305. 2. An International Atherosclerosis Society position paper: global recommendations for the management of dyslipidemia: executive summary, Atherosclerosis. 2014: 232(2):410-413. Performed By: #### 1 9123-9, LIPNF, ####[facility] LABIA [id number] [place] [address] [place] NON HDL CHOL, NF 85 mg/dL Normal <130 [facility] Comment on above: Order Comment: Speci men Type: BLOOD SPECIMENOrdering Facility: [facility] Address: [address] [place] [address] Result Comment: <130 mg/dL, Optimal 130-159 mg/dL, Near optimal/above optimal 160-189 mg/dL, Borderline high 190-219 mg/dL, High >219 mg/dL, Very high Secondary prevention optimal non HDL Cholesterol levels are recommended to be <100 mg/dL Performed By: #### 1 9123-9, LIPNF, 87123-4 ####[facility] LABIA [id number] [address] [address] [place] T CHOL/HDL RATIO NF 3.58 mg/dL Normal <5.10 [facility] Comment on above: Order Comment: Speci men Type: BLOOD SPECIMENOrdering Facility: [facility] Address: [address] [place] [address] Performed By: #### 1 9123-9, LIPNF, 44834-0 ####[facility] LABCLIA [id number] [place] [id number] [place] TRIGLYCERIDES, NF 225 mg/dL High <150 [facility] Comment on above: Order Comment: Speci men Type: BLOOD SPECIMENOrdering Facility: [facility] Address: [address] [place] [address] Result Comment: <150 mg/dL, Normal 150-199 mg/dL, Borderline high 200-499 mg/dL, High >499 mg/dL, Very high Performed By: #### 1 9123-9, LIPNF, ####[facility] LABCLIA [id number] [place] [address] [place] VLDL CHOLESTEROL, NF 32 mg/dL High <30 [facility] Comment on above: Order Comment: Speci men Type: BLOOD SPECIMENOrdering Facility: [facility] Address: [address] [place] [address] Performed By: #### 1 9123-9, LIPNF, ####[facility] LABCLIA [id number] [place] [address] [place] MAGNESIUMon 06-06-2024 Magnesium [Mass/Vol] 1.3 mg/dL Low 1.7 - 2 .3 mg/dL [facility] Magnesium SerPl-mCncon 06-06 Magnesium [Mass/Vol] 1.3 mg/dL Low 1.7-2.3 [facility] Comment on above: Order Comment: Speci men Type: BLOOD SPECIMENOrdering Facility: [facility] Address: [address] [place] [address] Performed By: #### 1 9123-9, LIPNF, ####[facility] LABCLIA [id number] [place] [id number] [place] No Panel Informationon 04-23 -2025 Interpretation and review of laboratory results Abnormal [facility] CNPNon 06-05-2024 CNPN Telephone (FAMPWS) ---- ROSA MARIA MENJIVAR ([id number]) 1965 F Date Time Provider Department 06/05/24 SAMSON HOGAN During your visit today, we recorded the following information about you: Pilar Crews 06/05/2024 8:51 AM Signed Rosa Maria is calling Samson Hogan MD today with concern regarding Medication Problem Her Byetta is discontinued. She is coming in tomorrow 06-06-24 to discuss renewal, but will need to discuss replacement. Patient has been identified by name and birthdate. Duration of symptoms: N/A Person calling: self Call patient at: at home [phone] (home) [phone] (cell) Was an appointment scheduled: Yes: Date/Time: 06-06-24 Closing statement: Patti Penny MA 06/05/2024 9:21 AM Signed Do not see where byetta stopped so see where patient was advised needing f/u and than canceled several times. Patient aware to keep appointment tomorrow Patti Panda MA Allergies As of Date: 06/05/2024 Noted Allergy Reaction JARDIANCE (EMPAGLIFLOZIN) 07/23/2022 9 - Itching Comments: Pt reported yeast infection MORPHINE 10/14/2010 9 - Itching TETANUS AND DIPHTHERIA TOXOIDS, A*11/10/2012 14 - Other: See Comments Comments: ? Reactive lymphadenopathy TORADOL (KETOROLAC TROMETHAMINE) 11/24/2007 Comments: Heart racing and nightmares Date Reviewed: 05/30/2024 Reviewed by: Pilar Cardoza PALucreciaC - Fully Assessed Reason for Visit: Medication Problem [65] Prescriptions as of 06/05/2024 - spironolactone (ALDACTONE) 25 mg tablet Take 25 mg by mouth once daily. - mometasone-formoter ol (DULERA) 50-5 mcg/actuation HFA aerosol inhaler Inhale 2 puffs as instructed two times a day. - atenolol (TENORMIN) 50 mg tablet Take 1 tablet by mouth once daily. - atorvastatin (LIPITOR) 40 mg tablet Take 1 tablet by mouth daily at bedtime. - lisinopril-hydroCHL OROthiazide (ZESTORETIC) 20-12.5 mg per tablet Take 2 tablets by mouth once daily. - metFORMIN ER (GLUCOPHAGE XR) 500 mg 24 hr tablet Take 2 tablets by mouth two times a day with meals. - busPIRone (BUSPAR) 5 mg tablet Take 1 tablet by mouth three times a day. - furosemide (LASIX) 40 mg tablet Take 1 tablet by mouth once daily. - gabapentin (NEURONTIN) 300 mg capsule Take 1 capsule by mouth three times a day for 30 days. Appointment needed for further refills. - venlafaxine ER (EFFEXOR XR) 75 mg 24 hr capsule TAKE 1 CAPSULE BY MOUTH DAILY IN ADDITION TO 150 MG A DAY. - ammonium lactate (LAC-HYDRIN) 12 % cream Apply 1 application to affected area as needed. - insulin lispro (HUMALOG) 200 unit/mL (3 mL) injection 63 units am, 3 units afternoon, 93 units before evening meal - Insulin [place], Disposable, (ULTICARE PEN NEEDLE) 29 gauge x 1/2 USE FIVE TIMES A DAY - insulin lispro (HUMALOG) 200 unit/mL (3 mL) injection 63 units am, 3 units afternoon, 93 units before evening meal - venlafaxine ER (EFFEXOR XR) 150 mg 24 hr capsule Take 1 capsule by mouth once daily. - flash glucose sensor (InventicSTYLE TERRELL 2 SENSOR) kit Use to check blood glucose 4 times daily. - omeprazole (PRILOSEC) 20 mg capsule Take 1 capsule by mouth daily before breakfast. 1/2 hr before meal. - insulin glargine (LANTUS SOLOSTAR U-100 INSULIN) 100 unit/mL (3 mL) Inject 83 Units subcutaneously two times a day. - flash glucose scanning reader (InventicSTYLE TERRELL 2 READER) 1 Each four times daily. - exenatide (BYETTA) 10 mcg/dose(250 mcg/mL) 2.4 mL injection Inject dose 5-60 prior to breakfast AND dinner. Minimum 6 hours between meals. - albuterol HFA (PROVENTIL HFA, VENTOLIN HFA) 90 mcg/actuation inhaler Inhale 2 Puffs as instructed every 4 hours as needed. - blood sugar diagnostic (BLOOD GLUCOSE TEST) test strip Test blood sugar(s) 2 times daily: fasting am and 2 hour after largest meal. Dx: Type 2 DM - Controlled E11.9 Insulin: Yes - potassium chloride (K-TAB) 10 mEq tablet Take 2 tablets by mouth daily with breakfast. - Lancets lancets Test blood sugar(s) 2 times daily. Dx: Type 2 DM - Uncontrolled E11.65 Insulin: Yes - CPAP 11 cm via nasal mask with 20 min ramp and humidification. - OXYGEN, HOME THERAPY, 2 L/min by Nasal Cannula route continuous. - COMPOUNDED PRESCRIPTION C-PAP MASK HOSES, FILTERS - glucose 4 gram chewable tablet Take 4 tablets by mouth as needed. For sugar less than 70 - COMPOUNDED PRESCRIPTION COMPRESSION STOCKINGS 20-30 mm Knee high. DX: venous insufficiency - COMPOUNDED PRESCRIPTION cpap supplies: sleep apnea - COMPOUNDED PRESCRIPTION CPAP mask Problem List As Of Date 06/05/2024 Noted Resolved [place] renal calculus [N20.0] 05/03/2007 RENAL COLIC [N23] 05/03/2007 Urinary complications [LMV6508] 03/21/2008 11/19/2015 HYDRONEPHROSIS [N13.30] 03/21/2008 Acute kidney failure, unspecified (HCC) [N17.9] 03/21/2008 01/17/2017 CALCULUS OF URETER [N20.1] 03/21/2008 (more content not included)... Normal [facility] ALBUMIN/CREATININE RATIO, UR INEon 05-30-2024 Albumin DL <= 20 mg/L (U) [Mass/Vol] 1951.5 mg/L Normal [facility] Comment on above: Order Comment: Speci men Type: URINE SPECIMENOrdering Facility: [address] Address: [address] [place] [address] Performed By: #### 2 4321-2 ####[facility] [id number] [address] STATES OF PER#### UACR ####[facility] LABCLIA [id number] [place] [address] [place] Albumin/Creatinine (U) [Mass ratio] 2538 mg/g High <30 [facility] Comment on above: Order Comment: Speci men Type: URINE SPECIMENOrdering Facility: [address] Address: [address] [place] [address] Result Comment: Adul t Male and Female Nephrotic Criteria: <30 mg/g is considered normal to mildly increased 30-300 mg/g is considered moderately increased >300 mg/g is considered severely increased KDIGO. (2013). KDIGO 2012 Clinical Practice Guideline for the Evaluation and Management of Chronic Kidney Disease. Official Journal of the International Society of Nephrology, 3(1), 1-150. Performed By: #### 2 4321-2 ####[facility] [id number] [place] [address] [place]#### UACR ####[facility] LABIA [id number] [place] [id number] [place] Creatinine (U) [Mass/Vol] 76.9 mg/dL Normal 20.0-300.0 [facility] Comment on above: Order Comment: Speci men Type: URINE SPECIMENOrdering Facility: [address] Address: [address] [place] [address] Performed By: #### 2 4321-2 ####[facility] [id number] [place] [address] [place]#### UACR ####[facility] LABIA [id number] [place] [id number] [place] Basic metabolic 2000 panelon 05-30-2024 Anion gap [Moles/Vol] 10 mmol/L Normal 8-15 [facility] Comment on above: Order Comment: Speci men Type: BLOOD SPECIMENOrdering Facility: [address] Address: [address] [place] [address] Performed By: #### 2 4321-2 ####[facility] MILLTOWNCLIA [id number] [place] [address] [place]#### UACR ####[facility] LABCLIA [id number] [place] [address] [place] Calcium [Mass/Vol] 10.0 mg/dL Normal 8.5-10.2 [facility] Comment on above: Order Comment: Speci men Type: BLOOD SPECIMENOrdering Facility: [address] [place] Address: [address] [place] [address] Performed By: #### 2 4321-2 ####[facility] [id number] [place] [address] [place]#### UACR ####[facility] LABCLIA [id number] [place] [address] [place] Chloride [Moles/Vol] 97 mmol/L Low 98-107 [facility] Comment on above: Order Comment: Speci men Type: BLOOD SPECIMENOrdering Facility: [address] [place] Address: [address] [place] [address] Performed By: #### 2 4321-2 ####[facility] [id number] [place] [address] [place]#### UACR ####[facility] LABCLIA [id number] [place] [address] [place] CO2 [Moles/Vol] 31 mmol/L High 22-30 [facility] Comment on above: Order Comment: Speci men Type: BLOOD SPECIMENOrdering Facility: [address] Address: [address] [place] [address] Performed By: #### 2 4321-2 ####[facility] MILLWNCLIA [id number] [place] [address] [place]#### UACR ####[facility] LABCLIA [id number] [place] [address] [place] Creatinine [Mass/Vol] 0.84 mg/dL Normal 0.58-0.96 [facility] Comment on above: Order Comment: Eliceo portillo Type: BLOOD SPECIMENOrdering Facility: [address] Address: [address] [place] [address] Performed By: #### 2 4321-2 ####[facility] [id number] [place] [address] [place]#### UACR ####[facility] LABIA [id number] [place] [address] [place] Creatinine and Glomerular filtration rate.predicted panel (S/P/Bld) 81 mL/min/1.73m??? Normal >=60 [facility] Comment on above: Order Comment: Eliceo portillo Type: BLOOD SPECIMENOrdering Facility: [address] Address: [address] [place] [address] Result Comment: Rosemray mated Glomerular Filtration Rate (eGFR) is calculated using the 2020 CKD-EPI creatinine equation. This equation utilizes serum creatinine, sex, and age as parameters. The creatinine assay has traceable calibration to isotope dilution-mass spectrometry. Refer to KDIGO guidelines for clinical interpretation. In patients with unstable renal function, e.g. those with acute kidney injury, the eGFR may not accurately reflect actual GFR. Performed By: #### 2 4321-2 ####[facility] [id number] [place] [address] [place]#### UACR ####[facility] LABCLIA [id number] [place] [id number] [place] Glucose [Mass/Vol] 321 mg/dL High 74-99 [facility] Comment on above: Order Comment: Speci men Type: BLOOD SPECIMENOrdering Facility: [address] Address: [address] [place] [address] Result Comment: The [place] Diabetes Association (ADA) provides guidance for cutoff values for fasting glucose and random glucose. The ADA defines fasting as no caloric intake for at least 8 hours. Fasting plasma glucose results between 100 to 125 mg/dL indicate increased risk for diabetes (prediabetes). Fasting plasma glucose results greater than or equal to 126 mg/dL meet the criteria for diagnosis of diabetes. In the absence of unequivocal hyperglycemia, results should be confirmed by repeat testing. In a patient with classic symptoms of hyperglycemia or hyperglycemic crisis, random plasma glucose results greater than or equal to 200 mg/dL meet the criteria for diagnosis of diabetes. Reference: Standards of Medical Care in Diabetes 2016, [place] Diabetes Association. Diabetes Care. 2016.39(Suppl 1). Performed By: #### 2 4321-2 ####[facility] [id number] [place] [address] [place]#### UACR ####[facility] LABCLIA [id number] [place] [address] [place] Potassium [Moles/Vol] 4.6 mmol/L Normal 3.7-5.1 [facility] Comment on above: Order Comment: Speci men Type: BLOOD SPECIMENOrdering Facility: [address] Address: [address] [place] [address] Performed By: #### 2 4321-2 ####[facility] [id number] [place] [address] [place]#### UACR ####[facility] LABCLIA [id number] [place] [id number] [place] Sodium [Moles/Vol] 138 mmol/L Normal 136-144 [facility] Comment on above: Order Comment: Speci men Type: BLOOD SPECIMENOrdering Facility: [address] Address: [address] [place] [address] Performed By: #### 2 4321-2 ####[facility] MILLTOWNCLIA [id number] [place] [address] [place]#### UACR ####[facility] LABCLIA [id number] [address] [place] Urea nitrogen [Mass/Vol] 29 mg/dL High 7-21 [facility] Comment on above: Order Comment: Speci men Type: BLOOD SPECIMENOrdering Facility: [address] Address: [address] [place] [address] Performed By: #### 2 4321-2 ####[facility] [id number] [place] [address] [place]#### UACR ####[facility] LABCLIA [id number] [place] [address] [place] CNOVon 05-30-2024 CNOV Office Visit (PULMWS) ---- ROSA MARIA MENJIVAR ([id number]) 1965 F Date Time Provider Department 05/30/24 9:30 AM PILAR CARDOZA PULMWS During your visit today, we recorded the following information about you: Weight 157.9 kg Pilar Cardoza PA-C 05/31/2024 4:55 PM Signed Patient: Rosa Maria Menjivar PCP: Lu Greene APRN.[employer] BPM ARCHITECT CC: Follow up HPI: Rosa Maria Menjivar 58 year old morbidly obese female, current daily smoker with PMH significant for COPD, Chronic hypoxemic respiratory failure mainly due to obesity, DM2, HLD, HTN, RCC s/p partial right nephrectomy, and KELLIE on CPAP. Last office visit 08/12/2023. Patient has no showed or cancelled multiple appointments since that time (>3 appointments). Current maintenance therapy with as needed Albuterol. Today, patient reports minimal cough with occasional white sputum. No hemoptysis. No wheezing. Exertional dyspnea with minimal effort. Using walker to ambulate at home. Is very limited by back pain. No fevers, chills, or night sweats. No unintended weight loss. No GERD/heartburn. No recent hospitalizations or ED visits or upper respiratory infections. Current wearing 3L supplemental oxygen continuously. Patient has not been wearing CPAP. States she is sleeping in recliner and sleeps well. DME: Miriam Smoking 2 cigarettes a day (down from 3 ppd). Chewing nicotine gum. PAST MEDICAL HISTORY Diagnosis Date Chronic hypoxemic respiratory failure ([facility]) 07/16/2021 Due to morbid obesity. COPD (chronic obstructive pulmonary disease) ([facility]) with chronic hypoxemic respiratory failure; on oxygen 2 liters continuously Degenerative disc disease Depression Diabetes mellitus type II Dyslipidemia Hypertension IBS (irritable bowel syndrome) Microalbuminuria on adwoa inhibitor Obesity Palpitations Panic disorder Renal calculus Renal cell carcinoma of right kidney ([facility]) 2009 S/P partial right nephrectomy Sleep apnea uses CPAP Tobacco abuse Urinary calculus, unspecified Renal stones Allergies: Jardiance [Empaglif* Itching Comment:Pt reported yeast infection Morphine Itching Tetanus And Diphthe* Other: See Comments Comment:? Reactive lymphadenopathy Toradol [Ketorolac * Comment:Heart racing and nightmares atenolol (TENORMIN) 50 mg tablet Take 1 tablet by mouth once daily. atorvastatin (LIPITOR) 40 mg tablet Take 1 tablet by mouth daily at bedtime. lisinopril-hydroCHL OROthiazide (ZESTORETIC) 20-12.5 mg per tablet Take 2 tablets by mouth once daily. metFORMIN ER (GLUCOPHAGE XR) 500 mg 24 hr tablet Take 2 tablets by mouth two times a day with meals. busPIRone (BUSPAR) 5 mg tablet Take 1 tablet by mouth three times a day. furosemide (LASIX) 40 mg tablet Take 1 tablet by mouth once daily. gabapentin (NEURONTIN) 300 mg capsule Take 1 capsule by mouth three times a day for 30 days. Appointment needed for further refills. venlafaxine ER (EFFEXOR XR) 75 mg 24 hr capsule TAKE 1 CAPSULE BY MOUTH DAILY IN ADDITION TO 150 MG A DAY. ammonium lactate (LAC-HYDRIN) 12 % cream Apply 1 application to affected area as needed. insulin lispro (HUMALOG) 200 unit/mL (3 mL) injection 63 units am, 3 units afternoon, 93 units before evening meal Insulin [place], Disposable, (ULTICARE PEN NEEDLE) 29 gauge x 1/2 USE FIVE TIMES A DAY insulin lispro (HUMALOG) 200 unit/mL (3 mL) injection 63 units am, 3 units afternoon, 93 units before evening meal venlafaxine ER (EFFEXOR XR) 150 mg 24 hr capsule Take 1 capsule by mouth once daily. flash glucose sensor (InventicSTYLE TERRELL 2 SENSOR) kit Use to check blood glucose 4 times daily. omeprazole (PRILOSEC) 20 mg capsule Take 1 capsule by mouth daily before breakfast. 1/2 hr before meal. insulin glargine (LANTUS SOLOSTAR U-100 INSULIN) 100 unit/mL (3 mL) Inject 83 Units subcutaneously two times a day. flash glucose scanning reader (InventicSTYLE TERRELL 2 READER) 1 Each four times daily. exenatide (BYETTA) 10 mcg/dose(250 mcg/mL) 2.4 mL injection Inject dose 5-60 prior to breakfast AND dinner. Minimum 6 hours between meals. albuterol HFA (PROVENTIL HFA, VENTOLIN HFA) 90 mcg/actuation inhaler Inhale 2 Puffs as instructed every 4 hours as needed. blood sugar diagnostic (BLOOD GLUCOSE TEST) test strip Test blood sugar(s) 2 times daily: fasting am and 2 hour after largest meal. Dx: Type 2 DM - Controlled E11.9 Insulin: Yes potassium chloride (K-TAB) 10 mEq tablet Take 2 tablets by mouth daily with breakfast. Lancets lancets Test blood sugar(s) 2 times daily. Dx: Type 2 DM - Uncontrolled E11.65 Insulin: Yes CPAP 11 cm via nasal mask with 20 min ramp and humidification. OXYGEN, HOME THERAPY, 2 L/min by Nasal Cannula route continuous. COMPOUNDED PRESCRIPTION C-PAP MASK HOSES, FILTERS glucose 4 gram chewable tablet Take 4 tablets by mouth as needed. For sugar less than 70 COMPOUNDED (more content not included)... Normal [facility] OXIMETRY WITH AMBULATIONon 0 05-30-2024 Armani Gordillo RPFT 05/30/2024 9:26 AM RESPIRATORY THERAPY OXIMETRY WITH AMBULATION Oximetry with Ambulation Test for This Encounter O2 Device O2 Adapter NC O2 Flow SpO2% HR Activity Ft Walked (ft) Time (min) Avg Speed (MPH) R/A 92 111 Resting R/A 88 123 Walking, usual pace 100 1.3 0.87 NC 2 95 109 Resting NC 2 92 154 Walking, usual pace 130 1.8 0.82 General Information Pulse Oximetry Site Total Time Spent Walking Assistance/O2 Supply Carrier Forehead 30 Wheeled Walker NAME: Armani JUAN Gordillo PATIENT NAME: Rosa Maria Menjivar DATE: May 30, 2024 TIME: 9:26 AM Comment: Patient was unable to walk any further. [facility] OXIMETRY WITH AMBULATIONOrde red By: Armani Gordillo on 05-30-2024 [facility] SPIROMETRY BASELINE ONLYon 0 05-30-2024 SPIROMETRY BASELINE ONLY [facility] [address] [place] [address] Test Date: 2024-05-30 Pat Name: ROSA MARIA MENJIVAR Department: Room: Gender: Female Mobile Manager: : 1965 Requested By: Order Number: [id number] Reading MD: Patti Knox MD Interpretive Statements Current ATS/ERS acceptability and repeatability standards for spirometry met. Start of test and EOFE criteria met. IMPRESSION: Spirometry indicates no obstruction. The reduced FVC could indicate restriction, recommend lung volumes for definitive determination. Electronically Signed On 05-30-2024 16:12:00 EDT by Patti Knox MD ID: [id number] Name: ROSA MARIA MENJIVAR Race: White Ht: 64.00 in Wt: 348.00 lbs Age: 58 Gender: Female : 1965 Dx: COPD_ Smoking Hx: Non-smoker Doctor: PILAR CARDOZA Test Date: 05/30/2024 Site: [facility] Perez: Armani Gordillo PRE-BRONCH POST-BRONCH Ezra LLN Pred ULN %Pred ZScore Ezra %Pred %Chg ZScore SPIROMETRY FVC 1.37 2.23 3.04 3.88 44 -3.45 FEV1 1.07 1.77 2.44 3.08 43 -3.20 FEV1/FVC 0.78 0.68 0.80 0.90 97 -0.29 FEFMax 3.19 4.71 6.42 8.14 49 -3.11 FEF50 1.57 1.79 3.40 5.01 46 -1.87 FIF50 1.64 FEF50/FIF50 0.96 90-100 FIVC 1.41 EPC40-98 0.99 1.25 2.38 3.88 41 -2.12 ExpiredTime 5.65 TimeToFEFMax 0.10 [place] 0.07 VolExtrap% 5 Comments: Current ATS/ERS acceptability and repeatability standards for spirometry met. Start of test and EOFE criteria met. FVC_PRE (L) : 1.37 L FVC_PRED (L) : 3.04 L FVC_LLN (L) : 2.23 L FVC_ULN (L) : 3.88 L FEV1_PRE (L) : 1.07 L FEV1_PRED (L) : 2.44 L FEV1_LLN (L) : 1.77 L FEV1_ULN (L) : 3.08 L FEV1/FVC_PRE (%) : 78 % FEV1/FVC_PRED (%) : 80 % FEV1/FVC_LLN (%) : 68 % JTJ48_EZE (L/S) : 3.13 L/S VFU09_JXE (L/S) : 0.28 L/S JJE81_CYZR (L/S) : 0.71 L/S NQG41_ICP (L/S) : 0.29 L/S FEE71_WCV (L/S) : 1.61 L/S FSM31-28%_PRE (L/S) : 0.99 L/S VRH56-69%_PRED (L/S) : 2.38 L/S SZQ85-31%_LLN (L/S) : 1.25 L/S PEF_PRE (L/S) : 3.19 L/S PEFMAX_LLN (L/S) : 4.71 L/S PEFMAX_ULN (L/S) : 8.14 L/S FET_PRE (S) : 5.65 S [facility] C[facility] Tele[facility] (FAMPWS) ---- ROSA MARIA MENJIVAR ([id number]) 1965 F Date Time Provider Department 05/25/24 [facility] During your visit today, we recorded the following information about you: Cristina Gardner MA 05/25/2024 4:02 PM Signed Received fax from [facility] pharmacy requesting Rx for patients diabetic supplies. Called and spoke with patient whom states she did not make this request. She receives her supplies through [facility]. Cristina Gardner MA Allergies As of Date: 05/25/2024 Noted Allergy Reaction JARDIANCE (EMPAGLIFLOZIN) 07/23/2022 9 - Itching Comments: Pt reported yeast infection MORPHINE 10/14/2010 9 - Itching TETANUS AND DIPHTHERIA TOXOIDS, A*11/10/2012 14 - Other: See Comments Comments: ? Reactive lymphadenopathy TORADOL (KETOROLAC TROMETHAMINE) 11/24/2007 Comments: Heart racing and nightmares Date Reviewed: 08/11/2023 Reviewed by: Pilar Cardoza PA-C - Fully Assessed Reason for Visit: FYI-No Action Needed [265] Prescriptions as of 05/25/2024 - atenolol (TENORMIN) 50 mg tablet Take 1 tablet by mouth once daily. - atorvastatin (LIPITOR) 40 mg tablet Take 1 tablet by mouth daily at bedtime. - lisinopril-hydroCHL OROthiazide (ZESTORETIC) 20-12.5 mg per tablet Take 2 tablets by mouth once daily. - metFORMIN ER (GLUCOPHAGE XR) 500 mg 24 hr tablet Take 2 tablets by mouth two times a day with meals. - busPIRone (BUSPAR) 5 mg tablet Take 1 tablet by mouth three times a day. - furosemide (LASIX) 40 mg tablet Take 1 tablet by mouth once daily. - gabapentin (NEURONTIN) 300 mg capsule Take 1 capsule by mouth three times a day for 30 days. Appointment needed for further refills. - venlafaxine ER (EFFEXOR XR) 75 mg 24 hr capsule TAKE 1 CAPSULE BY MOUTH DAILY IN ADDITION TO 150 MG A DAY. - ammonium lactate (LAC-HYDRIN) 12 % cream Apply 1 application to affected area as needed. - insulin lispro (HUMALOG) 200 unit/mL (3 mL) injection 63 units am, 3 units afternoon, 93 units before evening meal - Insulin [place], Disposable, (ULTICARE PEN NEEDLE) 29 gauge x 1/2 USE FIVE TIMES A DAY - insulin lispro (HUMALOG) 200 unit/mL (3 mL) injection 63 units am, 3 units afternoon, 93 units before evening meal - venlafaxine ER (EFFEXOR XR) 150 mg 24 hr capsule Take 1 capsule by mouth once daily. - flash glucose sensor (FREESTYLE TERRELL 2 SENSOR) kit Use to check blood glucose 4 times daily. - omeprazole (PRILOSEC) 20 mg capsule Take 1 capsule by mouth daily before breakfast. 1/2 hr before meal. - insulin glargine (LANTUS SOLOSTAR U-100 INSULIN) 100 unit/mL (3 mL) Inject 83 Units subcutaneously two times a day. - flash glucose scanning reader (FREESTYLE TERRELL 2 READER) 1 Each four times daily. - exenatide (BYETTA) 10 mcg/dose(250 mcg/mL) 2.4 mL injection Inject dose 5-60 prior to breakfast AND dinner. Minimum 6 hours between meals. - albuterol HFA (PROVENTIL HFA, VENTOLIN HFA) 90 mcg/actuation inhaler Inhale 2 Puffs as instructed every 4 hours as needed. - blood sugar diagnostic (BLOOD GLUCOSE TEST) test strip Test blood sugar(s) 2 times daily: fasting am and 2 hour after largest meal. Dx: Type 2 DM - Controlled E11.9 Insulin: Yes - potassium chloride (K-TAB) 10 mEq tablet Take 2 tablets by mouth daily with breakfast. - Lancets lancets Test blood sugar(s) 2 times daily. Dx: Type 2 DM - Uncontrolled E11.65 Insulin: Yes - CPAP 11 cm via nasal mask with 20 min ramp and humidification. - OXYGEN, HOME THERAPY, 2 L/min by Nasal Cannula route continuous. - COMPOUNDED PRESCRIPTION C-PAP MASK HOSES, FILTERS - glucose 4 gram chewable tablet Take 4 tablets by mouth as needed. For sugar less than 70 - COMPOUNDED PRESCRIPTION COMPRESSION STOCKINGS 20-30 mm Knee high. DX: venous insufficiency - COMPOUNDED PRESCRIPTION cpap supplies: sleep apnea - COMPOUNDED PRESCRIPTION CPAP mask Problem List As Of Date 05/25/2024 Noted Resolved Staghorn renal calculus [N20.0] 05/03/2007 RENAL COLIC [N23] 05/03/2007 Urinary complications [CRV3714] 03/21/2008 11/19/2015 HYDRONEPHROSIS [N13.30] 03/21/2008 Acute kidney [...] Depression [F32.A] DDD (degenerative disc disease), lumbar [M51.36* IBS (irritable bowel syndrome) [K58.9] Panic disorder [F41.0] Obstructive sleep apnea syndrome [G47.33] Hypertension, essential [I10] Diabetes mellitus (HCC) [E11.9] 11/10/2012 Lumbago [M54.50] 01/03/2013 Malignant neoplasm of kidney ex (more content not included)... Normal [facility] Clarissa 05-09-2024 RANDALLN Telephone (FAMPWS) ---- ROSA MARIA MENJIVAR ([id number]) 1965 F Date Time Provider Department 05/09/24 [facility] During your visit today, we recorded the following information about you: Rakel Douglas RN 05/09/2024 4:51 PM Signed Prior Authorization Documentation Prior authorization requested for the following medication: Medication: Humalog Provider: Lu Greene Insurance Company Name: [facility] Phone number: [phone] Patient ID number: [id number] RXBIN: [id number] RXPCN: [id number] Pharmacy Name: [facility] Telephone number: [phone] TONY Collins Janice, LPN 05/10/2024 8:36 AM Signed Electronic PA requested. Marlen Nixon LPN 05/10/2024 8:54 AM Signed Unable to complete electronically. Will try on covermymeds. Marlen Nixon LPN 05/10/2024 9:38 AM Signed Called the pharmacy to review and no PA is needed the rx from 04/27/24 was picked up 04/28/24 with no co pay. This rx is a 23 day supply so pt will be needing a new rx. When pulling rx for refill it notes there are duplicate rx for this medicines. Will you send a new rx for pt for the humalog 200? Mary Morales APRN.RANDALL 05/10/2024 12:37 PM Signed sent Allergies As of Date: 05/09/2024 Noted Allergy Reaction JARDIANCE (EMPAGLIFLOZIN) 07/23/2022 9 - Itching Comments: Pt reported yeast infection MORPHINE 10/14/2010 9 - Itching TETANUS AND DIPHTHERIA TOXOIDS, A*11/10/2012 14 - Other: See Comments Comments: ? Reactive lymphadenopathy TORADOL (KETOROLAC TROMETHAMINE) 11/24/2007 Comments: Heart racing and nightmares Date Reviewed: 08/11/2023 Reviewed by: Pilar Cardoza PA-C - Fully Assessed Reason for Visit: Insurance Authorization [[id number]] Visit Diagnosis:Type 2 diabetes mellitus without complication, with long-term current use of insulin (HCC) [E11.9, Z79.4] Order(s):insulin lispro (HUMALOG) 200 unit/mL (3 mL) ojjphxfur56 units am, 3 units afternoon, 93 units before evening mealDisp: 60 mLRfl: 2 Prescriptions as of 05/10/2024 - insulin lispro (HUMALOG) 200 unit/mL (3 mL) injection 63 units am, 3 units afternoon, 93 units before evening meal - Insulin [place], Disposable, (ULTICARE PEN NEEDLE) 29 gauge x 1/2 USE FIVE TIMES A DAY - insulin lispro (HUMALOG) 200 unit/mL (3 mL) injection 63 units am, 3 units afternoon, 93 units before evening meal - busPIRone (BUSPAR) 5 mg tablet Take 1 tablet by mouth three times a day. - furosemide (LASIX) 40 mg tablet Take 1 tablet by mouth once daily. - gabapentin (NEURONTIN) 300 mg capsule Take 1 capsule by mouth three times a day for 30 days. Appointment needed for further refills. - venlafaxine ER (EFFEXOR XR) 150 mg 24 hr capsule Take 1 capsule by mouth once daily. - venlafaxine ER (EFFEXOR XR) 75 mg 24 hr capsule TAKE 1 CAPSULE BY MOUTH DAILY IN ADDITION TO 150 MG A DAY. - atenolol (TENORMIN) 50 mg tablet Take 1 tablet by mouth once daily. - atorvastatin (LIPITOR) 40 mg tablet Take 1 tablet by mouth daily at bedtime. - lisinopril-hydroCHL OROthiazide (ZESTORETIC) 20-12.5 mg per tablet Take 2 tablets by mouth once daily. - metFORMIN ER (GLUCOPHAGE XR) 500 mg 24 hr tablet Take 2 tablets by mouth two times a day with meals. - flash glucose sensor (FREESTYLE TERRELL 2 SENSOR) kit Use to check blood glucose 4 times daily. - omeprazole (PRILOSEC) 20 mg capsule Take 1 capsule by mouth daily before breakfast. 1/2 hr before meal. - ammonium lactate (LAC-HYDRIN) 12 % cream Apply 1 application to affected area as needed. - insulin glargine (LANTUS SOLOSTAR U-100 INSULIN) 100 unit/mL (3 mL) Inject 83 Units subcutaneously two times a day. - flash glucose scanning reader (FREESTYLE TERRELL 2 READER) 1 Each four times daily. - exenatide (BYETTA) 10 mcg/dose(250 mcg/mL) 2.4 mL injection Inject dose 5-60 prior to breakfast AND dinner. Minimum 6 hours between meals. - albuterol HFA (PROVENTIL HFA, VENTOLIN HFA) 90 mcg/actuation inhaler Inhale 2 Puffs as instructed every 4 hours as needed. - blood sugar diagnostic (BLOOD GLUCOSE TEST) test strip Test blood sugar(s) 2 times daily: fasting am and 2 hour after largest meal. Dx: Type 2 DM - Controlled E11.9 Insulin: Yes - potassium chloride (K-TAB) 10 mEq tablet Take 2 tablets by mouth daily with breakfast. - Lancets lancets Test blood sugar(s) 2 times daily. Dx: Type 2 DM - Uncontrolled E11.65 Insulin: Yes - CPAP 11 cm via nasal mask with 20 min ramp and humidification. - OXYGEN, HOME THERAPY, 2 L/min by Nasal Cannula route continuous. - COMPOUNDED PRESCRIPTION C-PAP MASK HOSES, FILTERS - glucose 4 gram chewable tablet Take 4 tablets by mouth as needed. For sugar less than 70 - COMPOUNDED PRESCRIPTION COMPRESSION STOCKINGS 20-30 mm Knee high. DX: venous insufficiency - COMPOUNDED PRESCRIPTION cpap supplies: sleep apnea (more content not included)... Normal [facility] Emergency Department Summary on 09-04-2023 Emergency Department Summary [facility] Medical Records Department [address] [place] [address] Emergency Department Summary 09/04/23 MR#: [id number] Acct: [id number] Name: ROSA MARIA MENJIVAR Rep #: [id number] : 1965 57 From: Den Oneill MD PCP: Dr. Samson Hogan MD Status:REG ER Location: ED HPI History of Present Illness HPI Narrative: 57-year-old female history of diabetes chronic renal failure on 3 L of oxygen all the time. Was at home helping her has had a stroke and she fell about 3 days ago landing awkwardly on her left leg. Basically complaining of pain from the leg hip all the way down to the left foot. Really cannot localize it. She has been walking on it. She denies any other injuries. She did not hit her head. Says she thinks she just simply tripped. No prior surgery to her left lower extremity. Chief Complaint: Lower Extremity Injury Informant: patient Occured/Mechanism Mechanism/Context: Yes injury and Yes blunt trauma Onset/Context/Timin g Onset: Days Context: Sudden Onset Timing: Continuous Quality of Pain: Dull and Aching Current Severity: Mild Maximum Severity: Mild Associated Symptoms Associated Symptoms: Negative for Parasthesia, Weakness or Loss of Funtion Narrative Narrative: This is-year-old female history of chronic renal failure diabetes fell 3 days ago and pain in her left lower extremity both in the hip and primarily lower leg and ankle and foot. Able to walk on it. Prior similar symptoms: No Recent Illness/Hospitaliza tion: No PFSH PFSH Medical History GERD (gastroesophageal reflux disease) Neuropathy Anxiety and depression Chronic respiratory failure Urinary calculus Sleep apnea Panic disorder Microalbuminuria IBS (irritable bowel syndrome) HTN (hypertension) Type 2 diabetes mellitus Degenerative disc disease Tobacco dependence syndrome Morbid obesity Home Medications ???Medication ???Instructions ???Recorded ???Last Taken ???Type atenolol 50 mg tablet 50 mg PO DAILY BP 03/04/15 04/28/20 08:00 History furosemide 40 mg tablet 40 mg PO DAILY water retention 03/04/15 04/28/20 08:00 History gabapentin 300 mg capsule 300 mg PO TID nerve pain 03/04/15 04/28/20 17:00 History lisinopril 20 2 tab PO DAILY BP 03/04/15 04/28/20 08:00 History mg-hydrochlorothiaz cory 12.5 mg tablet venlafaxine 150 mg 150 mg PO DAILY mood 03/04/15 04/28/20 08:00 History capsule,extended release 24 hr albuterol sulfate 90 mcg/actuation 2 inh inhalation Q4H PRN Wheezing 12/26/18 Unknown History breath activated powder inhaler aspirin 81 mg tablet,delayed 81 mg PO DAILY heart health 12/26/18 04/28/20 08:00 History release (Adult Low Dose Aspirin) atorvastatin 40 mg tablet 40 mg PO QHS cholesterol 12/26/18 04/27/20 22:00 History dulaglutide 1.5 mg/0.5 mL 1.5 mg subcut FR diabetes 12/26/18 04/24/20 12:00 History subcutaneous pen injector (Trulicity) ibuprofen 800 mg tablet 800 mg PO Q6H PRN Pain Or Fever 12/26/18 Unknown History potassium chloride 10 mEq 20 meq PO DAILY supplement 12/26/18 04/28/20 08:00 History tablet,extended release (K-Tab) insulin degludec 100 unit/mL (3 83 unit SQ BID diabetes 09/01/19 04/28/20 17:00 History mL) subcutaneous pen buspirone 5 mg tablet 5 mg PO TID mood 04/28/20 04/28/20 17:00 History insulin lispro 100 unit/mL 40 unit SQ LUNCH diabetes 04/28/20 04/28/20 12:00 History subcutaneous pen insulin lispro 100 unit/mL 64 unit SQ BREAKFAST diabetes 04/28/20 04/28/20 08:00 History subcutaneous pen insulin lispro 100 unit/mL 94 unit subcut QHS diabetes 04/28/20 04/28/20 17:00 History subcutaneous pen sulfamethoxazole 800 1 tablet PO BID #10 TABLETS 04/30/20 Unknown Rx mg-trimethoprim 160 mg tablet insulin lispro 100 unit/mL 3 unit subcut DAILY 02/25/23 Unknown History subcutaneous half-unit pen (Humalog Zafar KwikPen (U-100)) insulin lispro 100 unit/mL 63 unit subcut DAILY 02/25/23 Unknown History subcutaneous half-unit pen (Humalog Zafar KwikPen (U-100)) insulin lispro 100 unit/mL 93 unit subcut QHS 02/25/23 Unknown History subcutaneous half-unit pen (Humalog Zafar KwikPen (U-100)) metformin 500 mg tablet,extended 1,000 mg PO BID 02/25/23 Unknown History release 24 hr omeprazole 20 mg capsule,delayed 20 mg PO DAILY 02/25/23 Unknown History release venlafaxine 75 mg capsule,extended 75 mg PO DAILY 02/25/23 Unknown History release 24 hr azithromycin 500 mg tablet 500 mg PO DAILY 3 days #3 tabs 02/27/23 Unknown Rx cefdinir 300 mg capsule 300 mg PO BID #10 caps 02/27/23 Unknown Rx cefdinir 300 mg capsule 300 mg PO BID #10 caps 02/27/23 Unknown Rx cefdinir 300 mg capsule 300 mg PO BID #10 caps 02/27/23 Unknown Rx prednisone 20 mg tablet 20 mg PO BID #10 tabs 02/27/23 Unknown Rx cephal (more content not included)... Normal [facility] Femur Min 2 Viewson 09-04-19 24 Femur Min 2 Views [facility] Imaging Services [address] [place] [address] Femur Min 2 Views MR#: [id number] Acct: [id number] Name: ROSA MARIA MENJIVAR Rep #: [id number] : 1965 F 57 From: Remington Broussard PCP: Dr. Samson Hogan MD Status: PRE ER Study: Femur Min 2 Views Date of Exam: 09/04/23 Exam# [id number] Ordering Dr: Den Oneill MD -[id number] INDICATION: fall EXAMINATION/TECHNIQ UE: X-RAY - LEFT XR Femur Min 2 Views 4 VIEWS COMPARISON: No relevant prior comparison study available FINDINGS: SOFT TISSUES: No soft tissue swelling or gas. No radiopaque foreign body. BONES/JOINTS: No evidence of acute fracture. The femoral head is suboptimally seen. Normal alignment. Preservation of the joint space.. No sclerotic or destructive changes observed. RAD/Femur Min 2 Views IMPRESSION: No evidence of acute fracture. Electronically Signed: Remington Fraire MD at 9:50 EDT , CC: Dr. Den Oneill MD; Dr. Samson Hogan MD Night Shift Supervisor: Signed Normal [facility] Foot min 3 Viewson 4 Foot min 3 Views [facility] Imaging Services [address] [place] [address] Foot min 3 Views MR#: [id number] Acct: [id number] Name: ROSA MARIA MENJIVAR Rep #: [id number] : 1965 F 57 From: Remington Broussard PCP: Dr. Samson Hogan MD Status: PRE ER Study: Foot min 3 Views Date of Exam: 09/04/23 Exam# [id number] Ordering Dr: Den Oneill MD -[id number] INDICATION: fall EXAMINATION/TECHNIQ UE: X-RAY - LEFT XR Foot Min 3 Views 3 VIEWS COMPARISON: No relevant prior comparison study available FINDINGS: SOFT TISSUES: No soft tissue swelling or gas. No radiopaque foreign body. BONES/JOINTS: No evidence of acute fracture or dislocation. Plantar and posterior calcaneal spurs. Calcific/bony densities medial to the navicular bone could be due to previous fractures. Acute fracture is doubtful. No sclerotic or destructive changes observed. RAD/Foot min 3 Views IMPRESSION: No evidence of acute fracture. Electronically Signed: Remington Fraire MD at 9:54 EDT , CC: Dr. Den Oneill MD; Dr. Samson Hogan MD Night Shift Supervisor: Signed Normal [facility] Pelvis 1 or 2 Viewson 2023 Pelvis 1 or 2 Views [facility] Imaging Services [address] [place], [place] [id number] Pelvis 1 or 2 Views MR#: [id number] Acct: [id number] Name: ROSA MARIA MENJIVAR Rep #: [id number] : 1965 F 57 From: Remington Broussard PCP: Dr. Samson Hogan MD Status: PRE ER Study: Pelvis 1 or 2 Views Date of Exam: 09/04/23 Exam# [id number] Ordering Dr: Den Oneill MD -[id number] INDICATION: fall EXAMINATION/TECHNIQ UE: X-RAY - XR Pelvis 1 or 2 Views COMPARISON: No relevant prior comparison study available FINDINGS: PELVIC BONES: No displaced fracture, destructive or sclerotic lesions. Note that overlapping bowel shadows may however obscure fine detail. Sacroiliac joints are unremarkable. No widening of the pubic symphysis. HIPS: Suboptimal visualization of the femoral necks. Mild narrowing of the hip joints No displaced fracture seen in this frontal view. SOFT TISSUES: No soft tissue swelling or gas. RAD/Pelvis 1 or 2 Views IMPRESSION: No evidence of displaced pelvic or hip fracture. Electronically Signed: Remington Fraire MD at 9:56 EDT , CC: Dr. Den Oneill MD; Dr. Samson Hogan MD Night Shift Supervisor: Signed Normal [facility] Tibia Fibula 2 Viewson 09-03 Tibia Fibula 2 Views [facility] Imaging Services [address] [place] [id number] Tibia Fibula 2 Views MR#: [id number] Acct: [id number] Name: ROSA MARIA MENJIVAR Rep #: [id number] : 1965 F 57 From: Remington Broussard PCP: Dr. Samson Hogan MD Status: PRE ER Study: Tibia Fibula 2 Views Date of Exam: 09/04/23 Exam# [id number] Ordering Dr: Den Oneill MD -[id number] INDICATION: fall EXAMINATION/TECHNIQ UE: X-RAY - LEFT XR Tibia/Fibula 2 Views 2 VIEWS COMPARISON: No relevant prior comparison study available FINDINGS: SOFT TISSUES: No soft tissue swelling or gas. No radiopaque foreign body. BONES/JOINTS: No acute fracture or subluxation.. Normal alignment. Mild degenerative arthrosis of the knee. No sclerotic or destructive changes observed. RAD/Tibia Fibula 2 Views IMPRESSION: No evidence of acute fracture. Electronically Signed: Remington Fraire MD at 9:51 EDT , CC: Dr. Den Oneill MD; Dr. Samson Hogan MD Night Shift Supervisor: Signed Normal [facility] Basic Metabolic Profile (BMP )on 07-01-2023 BUN/CRE 28.0 RATIO High 10-20 [facility] Comment on above: Performed By: #### L 500.2500, L100.0100 #### [facility] [address] [place], [address] CA,Total 9.8 mg/dL Normal 8.5-10.1 [facility] Comment on above: Performed By: #### L 500.2500, L100.0100 #### [facility] [address] [place], [address] Chloride [Moles/Vol] 101 mmol/L Normal 98-107 [facility] Comment on above: Performed By: #### L 500.2500, L100.0100 #### [facility] [address] [place], [address] CO2 [Moles/Vol] 34.0 mmol/L High 21.0-32.0 [facility] Comment on above: Performed By: #### L 500.2500, L100.0100 #### [facility] [address] [place], [address] Creatinine [Mass/Vol] 0.86 mg/dL Normal 0.55-1.02 [facility] Comment on above: Result Comment: The validity of the calculated GFR GFRAA in patients over 70 years has not been determined. Clinical correlation is essential. Performed By: #### L 500.2500, L100.0100 #### [facility] [address] [place], [address] EST GFR - AA 88 mL/min Normal >60 [facility] Comment on above: Result Comment: Afri can Micronesian GFR Calc Performed By: #### L 500.2500, L100.0100 #### [facility] [address] [place], [address] GAP 5 Normal 5-15 [facility] Comment on above: Performed By: #### L 500.2500, L100.0100 #### [facility] [address] [place], [address] GFR/1.73 sq M.predicted among non-blacks MDRD (S/P/Bld) [Vol rate/Area] 73 mL/min/{1.73_m2} Normal >60 [facility] Comment on above: Result Comment: Non- GFR Calc Performed By: #### L 500.2500, L100.0100 #### [facility] [address] [place], [address] Glucose [Mass/Vol] 148 mg/dL High 74-106 [facility] Comment on above: Result Comment: Fast ing Glucose result greater than or equal to 126 mg/dL suggests DIABETES MELLITUS per A.D.A. criteria. Performed By: #### L 500.2500, L100.0100 #### [facility] [address] [place], [address] Potassium [Moles/Vol] 3.4 mmol/L Low 3.5-5.1 [facility] Comment on above: Performed By: #### L 500.2500, L100.0100 #### [facility] [address] [place], [address] Sodium [Moles/Vol] 140 mmol/L Normal 136-145 [facility] Comment on above: Performed By: #### L 500.2500, L100.0100 #### [facility] [address] [place], [address] Urea nitrogen [Mass/Vol] 24 mg/dL High 7-18 [facility] Comment on above: Performed By: #### L 500.2500, L100.0100 #### [facility] [address] [place], [address] CBC W/Diff, Automatedon 06-14 Absolute Lymph 2.34 X10 3/uL Normal 0.83-4.51 [facility] Comment on above: Performed By: #### L 500.2500, L100.0100 #### [facility] [address] [place], [address] Absolute Neut 10.3 X10 3/uL High 2.0-7.7 [facility] Comment on above: Performed By: #### L 500.2500, L100.0100 #### [facility] [address] [place], [address] Basophils/100 WBC (Bld) 0.7 % Normal 0-1 [facility] Comment on above: Performed By: #### L 500.2500, L100.0100 #### [facility] [address] [place], [address] Eosinophils/100 WBC (Bld) 1.8 % Normal 0-5 [facility] Comment on above: Performed By: #### L 500.2500, L100.0100 #### [facility] [address] [place], [address] Erythrocyte distribution width (RBC) [Ratio] 14.4 % Normal 11.6-14.6 [facility] Comment on above: Performed By: #### L 500.2500, L100.0100 #### [facility] [address] [place], [address] Hematocrit (Bld) [Volume fraction] 49.1 % High 37-47 [facility] Comment on above: Performed By: #### L 500.2500, L100.0100 #### [facility] [address] [place], [address] Hemoglobin (Bld) [Mass/Vol] 14.8 g/dL Normal 12.0-15.0 [facility] Comment on above: Performed By: #### L 500.2500, L100.0100 #### [facility] [address] [place], [address] IG% 0.400 Normal 0.0-0.9 [facility] Comment on above: Result Comment: IG% - Immature Granulocytes (promyelocytes, myelocytes and metamyelocytes) > 1% indicates that a LEFT SHIFT is Present. Performed By: #### L 500.2500, L100.0100 #### [facility] [address] [place], [address] Lymphocytes/100 WBC (Bld) 17.0 % Low 19-41 [facility] Comment on above: Performed By: #### L 500.2500, L100.0100 #### [facility] [address] [place], [address] MCH (RBC) [Entitic mass] 25.7 pg Low 27.0-32.0 [facility] Comment on above: Performed By: #### L 500.2500, L100.0100 #### [facility] [address] [place], [address] MCHC (RBC) [Mass/Vol] 30.1 g/dL Low 32-36 [facility] Comment on above: Performed By: #### L 500.2500, L100.0100 #### [facility] [address] [place], [address] MCV (RBC) [Entitic vol] 85.4 fL Normal 81-99 [facility] Comment on above: Performed By: #### L 500.2500, L100.0100 #### [facility] [address] [place], [address] Monocytes/100 WBC (Bld) 5.7 % Normal 0-10 [facility] Comment on above: Performed By: #### L 500.2500, L100.0100 #### [facility] [address] [place], [address] Neutrophils/100 WBC (Bld) 74.4 % High 47-70 [facility] Comment on above: Performed By: #### L 500.2500, L100.0100 #### [facility] [address] [place], [address] Nucleated RBC (Bld) [#/Vol] 0 10*3/uL Normal 0-5 [facility] Comment on above: Performed By: #### L 500.2500, L100.0100 #### [facility] [address] [place], [address] Platelet mean volume (Bld) [Entitic vol] 10.0 fL Normal 6.2-12.0 [facility] Comment on above: Performed By: #### L 500.2500, L100.0100 #### [facility] [address] [place], [address] Platelets (Bld) [#/Vol] 246 10*3/uL Normal 150-450 [facility] Comment on above: Performed By: #### L 500.2500, L100.0100 #### [facility] [address] [place], [address] RBC (Bld) [#/Vol] 5.75 10*6/uL High 4.2-5.4 [facility] Comment on above: Performed By: #### L 500.2500, L100.0100 #### [facility] [address] [place], [address] RDW SD 44.1 fl High 35.1-43.9 [facility] Comment on above: Performed By: #### L 500.2500, L100.0100 #### [facility] [address] [place], [address] WBC (Bld) [#/Vol] 13.8 10*3/uL High 4.4-11.0 [facility] Comment on above: Performed By: #### L 500.2500, L100.0100 #### [facility] [address] [place], [address] Emergency Department Summary on 07-01-2023 Emergency Department Summary [facility] Medical Records Department [address] [place] [address] Emergency Department Summary 07/01/23 MR#: [id number] Acct: [id number] Name: ROSA MARIA MENJIVAR Rep #: [id number] : 1965 57 From: Steve Lacey DO PCP: Dr. Samson Hogan MD Status:REG ER Location: ED HPI History of Present Illness Chief Complaint: Cellulitis Narrative Narrative: Patient is a 57-year-old female with history of morbid obesity, COPD on 3 L nasal cannula daily, diabetes, obstructive sleep apnea, venous stasis who presents to the emergency department for 1 day of worsening pain to the right lower extremity. Patient states her legs are normally red however patient states that she has some blisters that are draining, the redness is worse, and she is concerned and here for evaluation. Patient denies any fever or chills. She denies any feeling of illness. [facility] Medical History (Updated 07/01/23 @ 21:41 by JC Chiang) GERD (gastroesophageal reflux disease) Neuropathy Anxiety and depression Chronic respiratory failure Urinary calculus Sleep apnea Panic disorder Microalbuminuria IBS (irritable bowel syndrome) HTN (hypertension) Type 2 diabetes mellitus Degenerative disc disease Tobacco dependence syndrome Morbid obesity Home Medications ???Medication ???Instructions ???Recorded ???Last Taken ???Type atenolol 50 mg tablet 50 mg PO DAILY BP 03/04/15 04/28/20 08:00 History furosemide 40 mg tablet 40 mg PO DAILY water retention 03/04/15 04/28/20 08:00 History gabapentin 300 mg capsule 300 mg PO TID nerve pain 03/04/15 04/28/20 17:00 History lisinopril 20 2 tab PO DAILY BP 03/04/15 04/28/20 08:00 History mg-hydrochlorothiaz cory 12.5 mg tablet venlafaxine 150 mg 150 mg PO DAILY mood 03/04/15 04/28/20 08:00 History capsule,extended release 24 hr albuterol sulfate 90 mcg/actuation 2 inh inhalation Q4H PRN Wheezing 12/26/18 Unknown History breath activated powder inhaler aspirin 81 mg tablet,delayed 81 mg PO DAILY heart health 12/26/18 04/28/20 08:00 History release (Adult Low Dose Aspirin) atorvastatin 40 mg tablet 40 mg PO QHS cholesterol 12/26/18 04/27/20 22:00 History dulaglutide 1.5 mg/0.5 mL 1.5 mg subcut FR diabetes 12/26/18 04/24/20 12:00 History subcutaneous pen injector (Trulicity) ibuprofen 800 mg tablet 800 mg PO Q6H PRN Pain Or Fever 12/26/18 Unknown History potassium chloride 10 mEq 20 meq PO DAILY supplement 12/26/18 04/28/20 08:00 History tablet,extended release (K-Tab) insulin degludec 100 unit/mL (3 83 unit SQ BID diabetes 09/01/19 04/28/20 17:00 History mL) subcutaneous pen buspirone 5 mg tablet 5 mg PO TID mood 04/28/20 04/28/20 17:00 History insulin lispro 100 unit/mL 40 unit SQ LUNCH diabetes 04/28/20 04/28/20 12:00 History subcutaneous pen insulin lispro 100 unit/mL 64 unit SQ BREAKFAST diabetes 04/28/20 04/28/20 08:00 History subcutaneous pen insulin lispro 100 unit/mL 94 unit subcut QHS diabetes 04/28/20 04/28/20 17:00 History subcutaneous pen sulfamethoxazole 800 1 tablet PO BID #10 TABLETS 04/30/20 Unknown Rx mg-trimethoprim 160 mg tablet insulin lispro 100 unit/mL 3 unit subcut DAILY 02/25/23 Unknown History subcutaneous half-unit pen (Humalog Zafar KwikPen (U-100)) insulin lispro 100 unit/mL 63 unit subcut DAILY 02/25/23 Unknown History subcutaneous half-unit pen (Humalog Zafar KwikPen (U-100)) insulin lispro 100 unit/mL 93 unit subcut QHS 02/25/23 Unknown History subcutaneous half-unit pen (Humalog Zafar KwikPen (U-100)) metformin 500 mg tablet,extended 1,000 mg PO BID 02/25/23 Unknown History release 24 hr omeprazole 20 mg capsule,delayed 20 mg PO DAILY 02/25/23 Unknown History release venlafaxine 75 mg capsule,extended 75 mg PO DAILY 02/25/23 Unknown History release 24 hr azithromycin 500 mg tablet 500 mg PO DAILY 3 days #3 tabs 02/27/23 Unknown Rx cefdinir 300 mg capsule 300 mg PO BID #10 caps 02/27/23 Unknown Rx cefdinir 300 mg capsule 300 mg PO BID #10 caps 02/27/23 Unknown Rx cefdinir 300 mg capsule 300 mg PO BID #10 caps 02/27/23 Unknown Rx prednisone 20 mg tablet 20 mg PO BID #10 tabs 02/27/23 Unknown Rx cephalexin 500 mg capsule 500 mg PO Q6 #40 CAPSULES 07/01/23 Unknown Rx Allergy/AdvReac Type Severity Reaction Status Date / Time tetanus and diphtheria Allergy Unknown swollen Verified 07/01/23 19:21 toxoids glands in neck that didn't decrease ketorolac tromethamine (From Allergy vivid Verified 07/01/23 19:21 Toradol) dreams morphine Allergy Itching Verified 07/01/23 19:21 Family History Aunt Diabetes Father Heart disease Sister Heart disease Grandfather Colon cancer Unknown Breast cancer Surgical History (Reviewed 01 (more content not included)... Normal [facility] Culture, Blood (WB)on 2023 CUB No growth in 5 days. Normal [facility] Comment on above: Performed By: #### M 200.1000, L503.6005 #### [facility] [place], [address] Basic Metabolic Profile (BMP )on 03-01-2023 BUN Normal 7-18 [facility] Comment on above: Result Comment: Canc elled via OM: Order cancelled - Patient discharged Performed By: #### M 200.1000, L503.6005 #### [facility] [address] [place], [address] BUN/CRE Normal 10-20 [facility] Comment on above: Result Comment: Canc elled via OM: Order cancelled - Patient discharged Performed By: #### M 200.1000, L503.6005 #### [facility] [address] [place], [address] CA,Total Normal 8.5-10.1 [facility] Comment on above: Result Comment: Canc elled via OM: Order cancelled - Patient discharged Performed By: #### M 200.1000, L503.6005 #### [facility] [address] [place], [address] CL Normal 98-107 [facility] Comment on above: Result Comment: Canc elled via OM: Order cancelled - Patient discharged Performed By: #### M 200.1000, L503.6005 #### [facility] [address] [place], [address] CO2 Normal 21.0-32.0 [facility] Comment on above: Result Comment: Canc elled via OM: Order cancelled - Patient discharged Performed By: #### M 200.1000, L503.6005 #### [facility] [address] [place], [address] CREAT,SERUM Normal 0.55-1.02 [facility] Comment on above: Result Comment: Canc elled via OM: Order cancelled - Patient discharged Performed By: #### M 200.1000, L503.6005 #### [facility] [address] [place], [address] EST GFR Normal >60 [facility] Comment on above: Result Comment: Canc elled via OM: Order cancelled - Patient discharged Performed By: #### M 200.1000, L503.6005 #### [facility] [address] [place], [address] EST GFR - AA Normal >60 [facility] Comment on above: Result Comment: Canc elled via OM: Order cancelled - Patient discharged Performed By: #### M 200.1000, L503.6005 #### [facility] [address] [place], [address] GAP Normal 5-15 [facility] Comment on above: Result Comment: Canc elled via OM: Order cancelled - Patient discharged Performed By: #### M 200.1000, L503.6005 #### [facility] [address] [place], [address] GLU Normal 74-106 [facility] Comment on above: Result Comment: Canc elled via OM: Order cancelled - Patient discharged Performed By: #### M 200.1000, L503.6005 #### [facility] [address] [place], [address] Potassium Normal 3.5-5.1 [facility] Comment on above: Result Comment: Canc elled via OM: Order cancelled - Patient discharged Performed By: #### M 200.1000, L503.6005 #### [facility] [address] [place], [address] Basic Metabolic Profile (BMP) Normal 136-145 [facility] Comment on above: Result Comment: Canc elled via OM: Order cancelled - Patient discharged Performed By: #### M 200.1000, L503.6005 #### [facility] [address] [place], [address] CBC W/Diff, Automatedon - Absolute Neut Normal 2.0-7.7 [facility] Comment on above: Result Comment: Canc elled via OM: Order cancelled - Patient discharged Performed By: #### M 200.1000, L503.6005 #### [facility] [address] [place], [address] HCT Normal 37-47 [facility] Comment on above: Result Comment: Canc elled via OM: Order cancelled - Patient discharged Performed By: #### M 200.1000, L503.6005 #### [facility] [address] [place], [address] HGB Normal 12.0-15.0 [facility] Comment on above: Result Comment: Canc elled via OM: Order cancelled - Patient discharged Performed By: #### M 200.1000, L503.6005 #### [facility] [address] [place], [address] MCH Normal 27.0-32.0 [facility] Comment on above: Result Comment: Canc elled via OM: Order cancelled - Patient discharged Performed By: #### M 200.1000, L503.6005 #### [facility] [address] [place], [address] MCHC Normal 32-36 [facility] Comment on above: Result Comment: Canc elled via OM: Order cancelled - Patient discharged Performed By: #### M 200.1000, L503.6005 #### [facility] [address] [place], [address] MCV Normal 81-99 [facility] Comment on above: Result Comment: Canc elled via OM: Order cancelled - Patient discharged Performed By: #### M 200.1000, L503.6005 #### [facility] [address] [place], [address] NEUT% Normal 47-70 [facility] Comment on above: Result Comment: Canc elled via OM: Order cancelled - Patient discharged Performed By: #### M 200.1000, L503.6005 #### [facility] [address] [place], [address] PLT Normal 150-450 [facility] Comment on above: Result Comment: Canc elled via OM: Order cancelled - Patient discharged Performed By: #### M 200.1000, L503.6005 #### [facility] [address] [place], [address] RBC Normal 4.2-5.4 [facility] Comment on above: Result Comment: Canc elled via OM: Order cancelled - Patient discharged Performed By: #### M 200.1000, L503.6005 #### [facility] [address] [place], [address] RDW CV Normal 11.6-14.6 [facility] Comment on above: Result Comment: Canc elled via OM: Order cancelled - Patient discharged Performed By: #### M 200.1000, L503.6005 #### [facility] [address] [place], [address] RDW SD Normal 35.1-43.9 [facility] Comment on above: Result Comment: Canc elled via OM: Order cancelled - Patient discharged Performed By: #### M 200.1000, L503.6005 #### [facility] [address] [place], [address] WBC Normal 4.4-11.0 [facility] Comment on above: Result Comment: Canc elled via OM: Order cancelled - Patient discharged Performed By: #### M 200.1000, L503.6005 #### [facility] [address] [place], [address] Culture, Blood (WB)on 2023 CUB 2 OF 4 BOTTLES POSITIVE Culture, Blood (WB) Possible skin contamination, further Identification and sensitivity will be performed only by physician's request. Culture, Blood (WB) If further studies are desired, please contact the Microbiology Laboratory within 48 hours. Culture, Blood (WB) Alpha Hemolytic Streptococcus Amount Growth Growth Bacillus sp., not anthracis Bacillus sp., not anthracis GPR Amount Growth Growth Normal [facility] Comment on above: Performed By: #### L 500.2500, L501.2300, L501.5200, L100.0100 #### [facility] [address] [place], [address] Respiratory Cultureon 2023 RESPC Mixed normal respiratory day. No Haemophilus, Streptococcus pneumoniae, beta-hemolytic Streptococcus or Staphylococcus aureus isolated. Normal [facility] Comment on above: Performed By: #### L 500.2500, L501.2300, L501.5200, L100.0100 #### [facility] [address] [place], [address] Basic Metabolic Profile (BMP )on 02-28-2023 BUN Normal 7-18 [facility] Comment on above: Result Comment: Canc elled via OM: Order cancelled - Patient discharged Performed By: #### L 500.2500, L501.2300, L501.5200, L100.0100 #### [facility] [address] [place], [address] BUN/CRE Normal 10-20 [facility] Comment on above: Result Comment: Canc elled via OM: Order cancelled - Patient discharged Performed By: #### L 500.2500, L501.2300, L501.5200, L100.0100 #### [facility] [address] [place], [address] CA,Total Normal 8.5-10.1 [facility] Comment on above: Result Comment: Canc elled via OM: Order cancelled - Patient discharged Performed By: #### L 500.2500, L501.2300, L501.5200, L100.0100 #### [facility] [address] [place], [address] CL Normal 98-107 [facility] Comment on above: Result Comment: Canc elled via OM: Order cancelled - Patient discharged Performed By: #### L 500.2500, L501.2300, L501.5200, L100.0100 #### [facility] [address] [place], [address] CO2 Normal 21.0-32.0 [facility] Comment on above: Result Comment: Canc elled via OM: Order cancelled - Patient discharged Performed By: #### L 500.2500, L501.2300, L501.5200, L100.0100 #### [facility] [address] [place], [address] CREAT,SERUM Normal 0.55-1.02 [facility] Comment on above: Result Comment: Canc elled via OM: Order cancelled - Patient discharged Performed By: #### L 500.2500, L501.2300, L501.5200, L100.0100 #### [facility] [address] [place], [address] EST GFR Normal >60 [facility] Comment on above: Result Comment: Canc elled via OM: Order cancelled - Patient discharged Performed By: #### L 500.2500, L501.2300, L501.5200, L100.0100 #### [facility] [address] [place], [address] EST GFR - AA Normal >60 [facility] Comment on above: Result Comment: Canc elled via OM: Order cancelled - Patient discharged Performed By: #### L 500.2500, L501.2300, L501.5200, L100.0100 #### [facility] [address] [place], [address] GAP Normal 5-15 [facility] Comment on above: Result Comment: Canc elled via OM: Order cancelled - Patient discharged Performed By: #### L 500.2500, L501.2300, L501.5200, L100.0100 #### [facility] [address] [place], [address] GLU Normal 74-106 [facility] Comment on above: Result Comment: Canc elled via OM: Order cancelled - Patient discharged Performed By: #### L 500.2500, L501.2300, L501.5200, L100.0100 #### [facility] [address] [place], [address] Potassium Normal 3.5-5.1 [facility] Comment on above: Result Comment: Canc elled via OM: Order cancelled - Patient discharged Performed By: #### L 500.2500, L501.2300, L501.5200, L100.0100 #### [facility] [address] [place], [address] Basic Metabolic Profile (BMP) Normal 136-145 [facility] Comment on above: Result Comment: Canc elled via OM: Order cancelled - Patient discharged Performed By: #### L 500.2500, L501.2300, L501.5200, L100.0100 #### [facility] [address] [place], [address] CBC W/Diff, Automatedon 02-14 Absolute Neut Normal 2.0-7.7 [facility] Comment on above: Result Comment: Canc elled via OM: Order cancelled - Patient discharged Performed By: #### M 200.1000, L503.6005 #### [facility] [address] [place], [address] HCT Normal 37-47 [facility] Comment on above: Result Comment: Canc elled via OM: Order cancelled - Patient discharged Performed By: #### M 200.1000, L503.6005 #### [facility] [address] [place], [address] HGB Normal 12.0-15.0 [facility] Comment on above: Result Comment: Canc elled via OM: Order cancelled - Patient discharged Performed By: #### M 200.1000, L503.6005 #### [facility] [address] [place], [address] MCH Normal 27.0-32.0 [facility] Comment on above: Result Comment: Canc elled via OM: Order cancelled - Patient discharged Performed By: #### M 200.1000, L503.6005 #### [facility] [address] [place], [address] MCHC Normal 32-36 [facility] Comment on above: Result Comment: Canc elled via OM: Order cancelled - Patient discharged Performed By: #### M 200.1000, L503.6005 #### [facility] [address] [place], [address] MCV Normal 81-99 [facility] Comment on above: Result Comment: Canc elled via OM: Order cancelled - Patient discharged Performed By: #### M 200.1000, L503.6005 #### [facility] [address] [place], [address] NEUT% Normal 47-70 [facility] Comment on above: Result Comment: Canc elled via OM: Order cancelled - Patient discharged Performed By: #### M 200.1000, L503.6005 #### [facility] [address] [place], [address] PLT Normal 150-450 [facility] Comment on above: Result Comment: Canc elled via OM: Order cancelled - Patient discharged Performed By: #### M 200.1000, L503.6005 #### [facility] [address] [place], [address] RBC Normal 4.2-5.4 [facility] Comment on above: Result Comment: Canc elled via OM: Order cancelled - Patient discharged Performed By: #### M 200.1000, L503.6005 #### [facility] [address] [place], [address] RDW CV Normal 11.6-14.6 [facility] Comment on above: Result Comment: Canc elled via OM: Order cancelled - Patient discharged Performed By: #### M 200.1000, L503.6005 #### [facility] [address] [place], [address] RDW SD Normal 35.1-43.9 [facility] Comment on above: Result Comment: Canc elled via OM: Order cancelled - Patient discharged Performed By: #### M 200.1000, L503.6005 #### [facility] [address] [place], [address] WBC Normal 4.4-11.0 [facility] Comment on above: Result Comment: Canc elled via OM: Order cancelled - Patient discharged Performed By: #### M 200.1000, L503.6005 #### [facility] [address] [place], [address] Absolute lymphocyte countOrd ered By: Russell Flower on 02-27-2023 Lymphocytes Auto (Unsp spec) [#/Vol] 3.17 10*3/uL 0.83-4.51 [facility] Basic Metabolic Profile (BMP )on 02-27-2023 BUN/CRE 42.2 RATIO High 10-20 [facility] Comment on above: Performed By: #### L 500.2500, L501.2300, L501.5200, L100.0100 #### [facility] [address] [place], [address] CA,Total 8.9 mg/dL Normal 8.5-10.1 [facility] Comment on above: Performed By: #### L 500.2500, L501.2300, L501.5200, L100.0100 #### [facility] [address] [place], [address] Chloride [Moles/Vol] 97 mmol/L Low 98-107 [facility] Comment on above: Performed By: #### L 500.2500, L501.2300, L501.5200, L100.0100 #### [facility] [address] [place], [address] CO2 [Moles/Vol] 39.0 mmol/L High 21.0-32.0 [facility] Comment on above: Performed By: #### L 500.2500, L501.2300, L501.5200, L100.0100 #### [facility] [address] [place], [address] Creatinine [Mass/Vol] 0.71 mg/dL Normal 0.55-1.02 [facility] Comment on above: Result Comment: The validity of the calculated GFR GFRAA in patients over 70 years has not been determined. Clinical correlation is essential. Performed By: #### L 500.2500, L501.2300, L501.5200, L100.0100 #### [facility] [address] [place], [address] ECRCL 130.34 ml/min Normal [facility] Comment on above: Performed By: #### L 500.2500, L501.2300, L501.5200, L100.0100 #### [facility] [address] [place], [address] EST GFR - AA 109 mL/min Normal >60 [facility] Comment on above: Result Comment: Afri can Micronesian GFR Calc Performed By: #### L 500.2500, L501.2300, L501.5200, L100.0100 #### [facility] [address] [place], [address] GAP 5 Normal 5-15 [facility] Comment on above: Performed By: #### L 500.2500, L501.2300, L501.5200, L100.0100 #### [facility] [address] [place], [address] GFR/1.73 sq M.predicted among non-blacks MDRD (S/P/Bld) [Vol rate/Area] 90 mL/min/{1.73_m2} Normal >60 [facility] Comment on above: Result Comment: Non- GFR Calc Performed By: #### L 500.2500, L501.2300, L501.5200, L100.0100 #### [facility] [address] [place], [address] Glucose [Mass/Vol] 198 mg/dL High 74-106 [facility] Comment on above: Result Comment: Fast ing Glucose result greater than or equal to 126 mg/dL suggests DIABETES MELLITUS per A.D.A. criteria. Performed By: #### L 500.2500, L501.2300, L501.5200, L100.0100 #### [facility] [address] [place], [address] Potassium [Moles/Vol] 3.9 mmol/L Normal 3.5-5.1 [facility] Comment on above: Performed By: #### L 500.2500, L501.2300, L501.5200, L100.0100 #### [facility] [address] [place], [address] Sodium [Moles/Vol] 141 mmol/L Normal 136-145 [facility] Comment on above: Performed By: #### L 500.2500, L501.2300, L501.5200, L100.0100 #### [facility] [address] [place], [address] Urea nitrogen [Mass/Vol] 30 mg/dL High 7-18 [facility] Comment on above: Performed By: #### L 500.2500, L501.2300, L501.5200, L100.0100 #### [facility] [address] [place], [address] Basophil percentageOrdered B y: Russell Flower on 02-27-2023 Basophil percentage 3.8 mg/dL 2.5-4.9 [facility] Basophils/100 WBC (Bld) 0.7 % 0-1 [facility] Chloride [Moles/Vol] 97 mmol/L 98-107 [facility] Eosinophils/100 WBC (Bld) 0.5 % 0-5 [facility] Glucose [Mass/Vol] 198 mg/dL 74-106 [facility] Comment on above: Fasting Glucose resu lt greater than or equal to 126 mg/dL suggests DIABETES MELLITUS per A.D.A. criteria. Neutrophils (Bld) [#/Vol] 11.8 10*3/uL 2.0-7.7 [facility] Neutrophils/100 WBC (Bld) 71.2 % 47-70 [facility] Potassium [Moles/Vol] 3.9 mmol/L 3.5-5.1 [facility] Sodium [Moles/Vol] 141 mmol/L 136-145 [facility] WBC (Bld) [#/Vol] 16.7 10*3/uL 4.4-11.0 [facility] Blood erythrocytes count (nu mber/volume)Ordered By: Russell Flower on 02-27-2023 RBC (Bld) [#/Vol] 5.17 10*6/uL 4.2-5.4 [facility] Blood hemoglobin measurement (mass/volume)Ordered By: Russell Flower on 02-27-2023 Hemoglobin (Bld) [Mass/Vol] 13.7 g/dL 12.0-15.0 [facility] Blood lymphocytes/100 leukoc ytesOrdered By: Russell Flower on 02-27-2023 Lymphocytes/100 WBC (Bld) 19.0 % 19-41 [facility] Blood monocytes/100 leukocyt esOrdered By: Russell Flower on 02-27-2023 Monocytes/100 WBC (Bld) 7.5 % 0-10 [facility] Blood platelet mean volumeOr dered By: Russell Flower on 02-27-2023 Platelet mean volume (Bld) [Entitic vol] 9.8 fL 6.2-12.0 [facility] CBC W/Diff, Automatedon - Absolute Lymph 3.17 X10 3/uL Normal 0.83-4.51 [facility] Comment on above: Performed By: #### L 500.2500, L501.2300, L501.5200, L100.0100 #### [facility] [address] [place], [address] Absolute Neut 11.8 X10 3/uL High 2.0-7.7 [facility] Comment on above: Performed By: #### L 500.2500, L501.2300, L501.5200, L100.0100 #### [facility] [address] [place], [address] Basophils/100 WBC (Bld) 0.7 % Normal 0-1 [facility] Comment on above: Performed By: #### L 500.2500, L501.2300, L501.5200, L100.0100 #### [facility] [address] [place], [address] Eosinophils/100 WBC (Bld) 0.5 % Normal 0-5 [facility] Comment on above: Performed By: #### L 500.2500, L501.2300, L501.5200, L100.0100 #### [facility] [address] [place], [address] Erythrocyte distribution width (RBC) [Ratio] 13.5 % Normal 11.6-14.6 [facility] Comment on above: Performed By: #### L 500.2500, L501.2300, L501.5200, L100.0100 #### [facility] [address] [place], [address] Hematocrit (Bld) [Volume fraction] 46.0 % Normal 37-47 [facility] Comment on above: Performed By: #### L 500.2500, L501.2300, L501.5200, L100.0100 #### [facility] [address] [place], [address] Hemoglobin (Bld) [Mass/Vol] 13.7 g/dL Normal 12.0-15.0 [facility] Comment on above: Performed By: #### L 500.2500, L501.2300, L501.5200, L100.0100 #### [facility] [address] [place], [address] IG% 1.100 High 0.0-0.9 [facility] Comment on above: Result Comment: IG% - Immature Granulocytes (promyelocytes, myelocytes and metamyelocytes) > 1% indicates that a LEFT SHIFT is Present. Performed By: #### L 500.2500, L501.2300, L501.5200, L100.0100 #### [facility] [address] [place], [address] Lymphocytes/100 WBC (Bld) 19.0 % Normal 19-41 [facility] Comment on above: Performed By: #### L 500.2500, L501.2300, L501.5200, L100.0100 #### [facility] [address] [place], [address] MCH (RBC) [Entitic mass] 26.5 pg Low 27.0-32.0 [facility] Comment on above: Performed By: #### L 500.2500, L501.2300, L501.5200, L100.0100 #### [facility] [address] [place], [address] MCHC (RBC) [Mass/Vol] 29.8 g/dL Low 32-36 [facility] Comment on above: Performed By: #### L 500.2500, L501.2300, L501.5200, L100.0100 #### [facility] [address] [place], [address] MCV (RBC) [Entitic vol] 89.0 fL Normal 81-99 [facility] Comment on above: Performed By: #### L 500.2500, L501.2300, L501.5200, L100.0100 #### [facility] [address] [place], [address] Monocytes/100 WBC (Bld) 7.5 % Normal 0-10 [facility] Comment on above: Performed By: #### L 500.2500, L501.2300, L501.5200, L100.0100 #### [facility] [address] [place], [address] Neutrophils/100 WBC (Bld) 71.2 % High 47-70 [facility] Comment on above: Performed By: #### L 500.2500, L501.2300, L501.5200, L100.0100 #### [facility] [address] [place], [address] Nucleated RBC (Bld) [#/Vol] 0 10*3/uL Normal 0-5 [facility] Comment on above: Performed By: #### L 500.2500, L501.2300, L501.5200, L100.0100 #### [facility] [address] [place], [address] Platelet mean volume (Bld) [Entitic vol] 9.8 fL Normal 6.2-12.0 [facility] Comment on above: Performed By: #### L 500.2500, L501.2300, L501.5200, L100.0100 #### [facility] [address] [place], [address] Platelets (Bld) [#/Vol] 324 10*3/uL Normal 150-450 [facility] Comment on above: Performed By: #### L 500.2500, L501.2300, L501.5200, L100.0100 #### [facility] [address] [place], [address] RBC (Bld) [#/Vol] 5.17 10*6/uL Normal 4.2-5.4 [facility] Comment on above: Performed By: #### L 500.2500, L501.2300, L501.5200, L100.0100 #### [facility] [address] [place], [address] RDW SD 43.9 fl Normal 35.1-43.9 [facility] Comment on above: Performed By: #### L 500.2500, L501.2300, L501.5200, L100.0100 #### [facility] [address] [place], [address] WBC (Bld) [#/Vol] 16.7 10*3/uL High 4.4-11.0 [facility] Comment on above: Performed By: #### L 500.2500, L501.2300, L501.5200, L100.0100 #### [facility] [address] [place], [address] Determination of erythrocyte mean corpuscular volume (MCV)Ordered By: Russell Flower on 02-27-2023 MCV (RBC) [Entitic vol] 89.0 fL 81-99 [facility] Hematocrit Auto (Bld) [Volum e fraction]Ordered By: Russell Flower on 02-27-2023 Hematocrit (Bld) [Volume fraction] 46.0 % 37-47 [facility] - Chemistry and C hemistry - challengeOrdered By: Russell Flower on 02-27-2023 CO2 [Moles/Vol] 39.0 mmol/L 21.0-32.0 [facility] Magnesium [Mass/Vol] 2.2 mg/dL 1.6-2.6 [facility] Urea nitrogen/Creatinine [Mass ratio] 42.2 mg/mg 10-20 [facility] - Hematology and Cell countsOrdered By: Russell Flower on 02-27-2023 Erythrocyte distribution width (RBC) [Entitic vol] 43.9 fL 35.1-43.9 [facility] Erythrocyte distribution width (RBC) [Ratio] 13.5 % 11.6-14.6 [facility] Immature granulocytes/100 WBC (Bld) 1.100 % 0.0-0.9 [facility] Comment on above: IG% - Immature Granu locytes (promyelocytes, myelocytes and metamyelocytes) > 1% indicates that a LEFT SHIFT is Present. MCH (RBC) [Entitic mass] 26.5 pg 27.0-32.0 [facility] Nucleated RBC/100 WBC (Bld) [Ratio] 0 % 0-5 [facility] MCHC Auto (RBC) [Mass/Vol]Or dered By: Russell Flower on 02-27-2023 MCHC (RBC) [Mass/Vol] 29.8 g/dL 32-36 [facility] Magnesiumon 02-27-2023 Magnesium [Mass/Vol] 2.2 mg/dL Normal 1.6-2.6 [facility] Comment on above: Performed By: #### L 500.2500, L501.2300, L501.5200, L100.0100 #### [facility] Laboratory [address] [facility]. [facility] [address] No Panel InformationOrdered By: Russell Flower on 02-27-2023 Estimated Creatinine Clearance Calc 130.34 ml/min [facility] Estimated GFR (MDRD) Amer 109 mL/min >60 [facility] Comment on above: GFR Calc Estimated GFR (MDRD) Non-Af Amer 90 mL/min >60 [facility] Comment on above: Non- GFR Calc Phosphoruson 02-27-2023 Phosphate [Mass/Vol] 3.8 mg/dL Normal 2.5-4.9 [facility] Comment on above: Performed By: #### L 500.2500, L501.2300, L501.5200, L100.0100 #### [facility] Laboratory [address] [place], [address] Platelets bldOrdered By: Albert Flower on 02-27-2023 Platelets (Bld) [#/Vol] 324 10*3/uL 150-450 [facility] Serum or plasma calcium ezra urement (mass/volume)Ordered By: Russell Flower on 02-27-2023 Calcium [Mass/Vol] 8.9 mg/dL 8.5-10.1 [facility] Serum or plasma creatinine m easurement (mass/volume)Ordered By: Russell Flower on 02-27-2023 Creatinine [Mass/Vol] 0.71 mg/dL 0.55-1.02 [facility] Comment on above: The validity of the calculated GFR & GFRAA in patients over 70 years has not been determined. Clinical correlation is essential. Serum or plasma urea nitroge n measurement (mass/volume)Ordered By: Russell Flower on 02-27-2023 Urea nitrogen [Mass/Vol] 30 mg/dL 7-18 [facility] Thin prep Papanicolaou smear with manual screeningOrdered By: Russell Flower on 02-27-2023 Thin prep Papanicolaou smear with manual screening 5 5-15 [facility] Basophil percentageOrdered B y: Chelsi White on 02-26-2023 Bilirubin [Mass/Vol] 0.20 mg/dL 0.20-1.00 [facility] Comment on above: For patients on eltr ombopag therapy, use of Dimension [place] TBIL is not recommended. Protein [Mass/Vol] 7.6 g/dL 6.4-8.2 [facility] Bedside Glucoseon 02-26-2023 FINGERSTICK GLU 487 mg/dL Invalid Interpretation Code 74-106 [facility] Comment on above: Result Comment: CHLOÉ GEMENT OF PATIENT CARE PER NURSING PROTOCOL Performed By: #### L 500.2500, L501.2300, L501.5200, L100.0100 #### [facility] Laboratory [address] [place], [address] FINGERSTICK GLU 394 mg/dL High 74-106 [facility] Comment on above: Result Comment: CHLOÉ GEMENT OF PATIENT CARE PER NURSING PROTOCOL Performed By: #### L 500.2500, L501.2300, L501.5200, L100.0100 #### [facility] Laboratory [address] [place], [address] FINGERSTICK GLU 318 mg/dL High [address] [place] [address] Comment on above: Result Comment: CHLOÉ GEMENT OF PATIENT CARE PER NURSING PROTOCOL Performed By: #### L 500.2500, L501.2300, L501.5200, L100.0100 #### [facility] Laboratory [address] [place], [address] FINGERSTICK GLU 398 mg/dL High [address] [place] [address] Comment on above: Result Comment: CHLOÉ GEMENT OF PATIENT CARE PER NURSING PROTOCOL Performed By: #### L 500.2500, L501.2300, L501.5200, L100.0100 #### [facility] Laboratory [address] [place], [address] FINGERSTICK GLU > 500 Invalid Interpretation Code [address] [place] [address] Comment on above: Result Comment: Dr Clarisse wynn Followed MANAGEMENT OF PATIENT CARE PER NURSING PROTOCOL Performed By: #### L 500.2500, L501.2300, L501.5200, L100.0100 #### [facility] Laboratory [address] [place], [address] CBC W/Diff, Automatedon 02-14 Absolute Lymph 1.18 X10 3/uL Normal 0.83-4.51 [facility] Comment on above: Performed By: #### L 500.2500, L501.2300, L501.5200, L100.0100 #### [facility] Laboratory [address] [place], [address] Absolute Neut 13.2 X10 3/uL High 2.0-7.7 [facility] Comment on above: Performed By: #### L 500.2500, L501.2300, L501.5200, L100.0100 #### [facility] Laboratory [address] [place], [address] Basophils/100 WBC (Bld) 0.5 % Normal 0-1 [facility] Comment on above: Performed By: #### L 500.2500, L501.2300, L501.5200, L100.0100 #### [facility] Laboratory [address] [place], [address] Eosinophils/100 WBC (Bld) 0.3 % Normal 0-5 [facility] Comment on above: Performed By: #### L 500.2500, L501.2300, L501.5200, L100.0100 #### [facility] Laboratory [address] [place], [address] Erythrocyte distribution width (RBC) [Ratio] 13.6 % Normal 11.6-14.6 [facility] Comment on above: Performed By: #### L 500.2500, L501.2300, L501.5200, L100.0100 #### [facility] Laboratory [address] [place], [address] Hematocrit (Bld) [Volume fraction] 44.1 % Normal 37-47 [facility] Comment on above: Performed By: #### L 500.2500, L501.2300, L501.5200, L100.0100 #### [facility] Laboratory [address] [place], [address] Hemoglobin (Bld) [Mass/Vol] 13.3 g/dL Normal 12.0-15.0 [facility] Comment on above: Performed By: #### L 500.2500, L501.2300, L501.5200, L100.0100 #### [facility] Laboratory [address] [place], [address] IG% 1.500 High 0.0-0.9 [facility] Comment on above: Result Comment: IG% - Immature Granulocytes (promyelocytes, myelocytes and metamyelocytes) > 1% indicates that a LEFT SHIFT is Present. Performed By: #### L 500.2500, L501.2300, L501.5200, L100.0100 #### [facility] Laboratory [address] [place], [address] Lymphocytes/100 WBC (Bld) 7.8 % Low 19-41 [facility] Comment on above: Performed By: #### L 500.2500, L501.2300, L501.5200, L100.0100 #### [facility] Laboratory [address] [place], [address] MCH (RBC) [Entitic mass] 26.9 pg Low 27.0-32.0 [facility] Comment on above: Performed By: #### L 500.2500, L501.2300, L501.5200, L100.0100 #### [facility] Laboratory [address] [place], [address] MCHC (RBC) [Mass/Vol] 30.2 g/dL Low 32-36 [facility] Comment on above: Performed By: #### L 500.2500, L501.2300, L501.5200, L100.0100 #### [facility] Laboratory [address] [place], [address] MCV (RBC) [Entitic vol] 89.1 fL Normal 81-99 [facility] Comment on above: Performed By: #### L 500.2500, L501.2300, L501.5200, L100.0100 #### [facility] Laboratory [address] [place], [address] Monocytes/100 WBC (Bld) 2.8 % Normal 0-10 [facility] Comment on above: Performed By: #### L 500.2500, L501.2300, L501.5200, L100.0100 #### [facility] Laboratory [address] [place], [address] Neutrophils/100 WBC (Bld) 87.1 % High 47-70 [facility] Comment on above: Performed By: #### L 500.2500, L501.2300, L501.5200, L100.0100 #### [facility] Laboratory [address] [place], [address] Nucleated RBC (Bld) [#/Vol] 0 10*3/uL Normal 0-5 [facility] Comment on above: Performed By: #### L 500.2500, L501.2300, L501.5200, L100.0100 #### [facility] Laboratory [address] [place], [address] Platelet mean volume (Bld) [Entitic vol] 10.0 fL Normal 6.2-12.0 [facility] Comment on above: Performed By: #### L 500.2500, L501.2300, L501.5200, L100.0100 #### [facility] Laboratory [address] [place], [address] Platelets (Bld) [#/Vol] 290 10*3/uL Normal 150-450 [facility] Comment on above: Performed By: #### L 500.2500, L501.2300, L501.5200, L100.0100 #### [facility] Laboratory [address] [place], [address] RBC (Bld) [#/Vol] 4.95 10*6/uL Normal 4.2-5.4 [facility] Comment on above: Performed By: #### L 500.2500, L501.2300, L501.5200, L100.0100 #### [facility] Laboratory [address] [place], [address] RDW SD 44.3 fl High 35.1-43.9 [facility] Comment on above: Performed By: #### L 500.2500, L501.2300, L501.5200, L100.0100 #### [facility] Laboratory [address] [place], [address] WBC (Bld) [#/Vol] 15.2 10*3/uL High 4.4-11.0 [facility] Comment on above: Performed By: #### L 500.2500, L501.2300, L501.5200, L100.0100 #### [facility] Laboratory [address] [place], [address] Comprehensive Metabolic Prof ilon 02-26-2023 Albumin [Mass/Vol] 2.1 g/dL Low 3.2-5.0 [facility] Comment on above: Performed By: #### L 500.2500, L501.2300, L501.5200, L100.0100 #### [facility] Laboratory [address] [place], [address] Albumin/Globulin [Mass ratio] 0.4 {ratio} Low 0.9-2.4 [facility] Comment on above: Performed By: #### L 500.2500, L501.2300, L501.5200, L100.0100 #### [facility] Laboratory [address] [place], [address] ALK P 108 U/L Normal 45-117 [facility] Comment on above: Performed By: #### L 500.2500, L501.2300, L501.5200, L100.0100 #### [facility] Laboratory [address] [place], [address] ALT [Catalytic activity/Vol] 19 U/L Normal 13-56 [facility] Comment on above: Performed By: #### L 500.2500, L501.2300, L501.5200, L100.0100 #### [facility] Laboratory [address] [place], [address] AST [Catalytic activity/Vol] 13 U/L Low 15-37 [facility] Comment on above: Performed By: #### L 500.2500, L501.2300, L501.5200, L100.0100 #### [facility] Laboratory [address] [place], [address] Bilirubin [Mass/Vol] 0.20 mg/dL Normal 0.20-1.00 [facility] Comment on above: Result Comment: For patients on eltrombopag therapy, use of Dimension [place] TBIL is not recommended. Performed By: #### L 500.2500, L501.2300, L501.5200, L100.0100 #### [facility] Laboratory [address] [place], [address] BUN/CRE 32.1 RATIO High 10-20 [facility] Comment on above: Performed By: #### L 500.2500, L501.2300, L501.5200, L100.0100 #### [facility] Laboratory [address] [place], [address] CA,Total 8.3 mg/dL Low 8.5-10.1 [facility] Comment on above: Performed By: #### L 500.2500, L501.2300, L501.5200, L100.0100 #### [facility] Laboratory [address] [place], [address] Chloride [Moles/Vol] 97 mmol/L Low 98-107 [facility] Comment on above: Performed By: #### L 500.2500, L501.2300, L501.5200, L100.0100 #### [facility] Laboratory [address] [place], [address] CO2 [Moles/Vol] 35.0 mmol/L High 21.0-32.0 [facility] Comment on above: Performed By: #### L 500.2500, L501.2300, L501.5200, L100.0100 #### [facility] Laboratory [address] [place], [address] Creatinine [Mass/Vol] 0.84 mg/dL Normal 0.55-1.02 [facility] Comment on above: Result Comment: The validity of the calculated GFR GFRAA in patients over 70 years has not been determined. Clinical correlation is essential. Performed By: #### L 500.2500, L501.2300, L501.5200, L100.0100 #### [facility] Laboratory [address] [place], [address] ECRCL 110.20 ml/min Normal [facility] Comment on above: Performed By: #### L 500.2500, L501.2300, L501.5200, L100.0100 #### [facility] Laboratory [address] [place], [address] EST GFR - AA 90 mL/min Normal >60 [facility] Comment on above: Result Comment: Afri can Micronesian GFR Calc Performed By: #### L 500.2500, L501.2300, L501.5200, L100.0100 #### [facility] Laboratory [address] [place], [address] GAP 6 Normal 5-15 [facility] Comment on above: Performed By: #### L 500.2500, L501.2300, L501.5200, L100.0100 #### [facility] Laboratory [address] [place], [address] GFR/1.73 sq M.predicted among non-blacks MDRD (S/P/Bld) [Vol rate/Area] 74 mL/min/{1.73_m2} Normal >60 [facility] Comment on above: Result Comment: Non- GFR Calc Performed By: #### L 500.2500, L501.2300, L501.5200, L100.0100 #### [facility] Laboratory [address] [place], [address] Globulin (S) [Mass/Vol] 5.5 g/dL High 2.2-4.2 [facility] Comment on above: Performed By: #### L 500.2500, L501.2300, L501.5200, L100.0100 #### [facility] Laboratory [address] [place], [address] Glucose [Mass/Vol] 349 mg/dL High 74-106 [facility] Comment on above: Result Comment: Gluc ose result greater than or equal to 200 mg/dL suggests DIABETES MELLITUS per A.D.A. criteria. Performed By: #### L 500.2500, L501.2300, L501.5200, L100.0100 #### [facility] Laboratory [address] [place], [address] Potassium [Moles/Vol] 3.6 mmol/L Normal 3.5-5.1 [facility] Comment on above: Performed By: #### L 500.2500, L501.2300, L501.5200, L100.0100 #### [facility] Laboratory [address] [place], [address] Sodium [Moles/Vol] 138 mmol/L Normal 136-145 [facility] Comment on above: Performed By: #### L 500.2500, L501.2300, L501.5200, L100.0100 #### [facility] Laboratory [address] [place], [address] T PROT 7.6 g/dL Normal 6.4-8.2 [facility] Comment on above: Performed By: #### L 500.2500, L501.2300, L501.5200, L100.0100 #### [facility] Laboratory [address] [place], [address] Urea nitrogen [Mass/Vol] 27 mg/dL High 7-18 [facility] Comment on above: Performed By: #### L 500.2500, L501.2300, L501.5200, L100.0100 #### [facility] Laboratory [address] [place], [address] Glucoseon 02-26-2023 Glucose [Mass/Vol] 504 mg/dL Invalid Interpretation Code 74-106 [facility] Comment on above: Result Comment: Luis Armandot ical Result(s) Called at: 22:18:51 02/26/2023 by: Makayla Robert to Reddy. Results read back by same. Glucose result greater than or equal to 200 mg/dL suggests DIABETES MELLITUS per A.D.A. criteria. Performed By: #### M 200.1000, L503.6005 #### [facility] Laboratory [address] [place], [address] Glucose Glucometer (BldC) [M ass/Vol]Ordered By: Russell Flower on 02-26-2023 Glucose [Mass/Vol] 487 mg/dL 74-106 [facility] Comment on above: MANAGEMENT OF PATIEN T CARE PER NURSING PROTOCOL Gram Stainon 02-26-2023 GS Acceptable Specimen? Yes (<25 Epithelial cells per/lpf) Gram Stain 1+ White Blood Cells Rare Gram positive cocci Normal [facility] Comment on above: Performed By: #### L 500.2500, L501.2300, L501.5200, L100.0100 #### [facility] Laboratory [address], [address] Laboratory - Chemistry and C hemistry - challengeOrdered By: Chelsi Warner on 02-26-2023 ALP [Catalytic activity/Vol] 108 U/L 45-117 [facility] ALT [Catalytic activity/Vol] 19 U/L 13-56 [facility] Globulin (S) [Mass/Vol] 5.5 g/dL 2.2-4.2 [facility] Legionella Antigen Urineon 0 02-26-2023 LEGU Legionella Antigen result interpretation: L pneumo Ag Ur Ql Negative Presumptive negative for Legionella pneumophila serogroup 1 antigen in urine, suggesting no recent or current infection. Legionella Ag, Urine Negative (See interpretation below) Normal [facility] Comment on above: Performed By: #### L 500.2500, L501.2300, L501.5200, L100.0100 #### [facility] Laboratory [address] [place], [address] M R Staph Aureus DNA by PCRo n 02-26-2023 MRSA DNA ASSAY Negative Normal Negative [facility] Comment on above: Performed By: #### L 8200.1000 #### [facility] Laboratory [address] [place], [address] RESPIRATORY PANEL MOLECULARo n 02-26-2023 RP PANEL Normal Reference Range = Not Detected Resp path DNA+RNA Pnl Resp DEMETRIO+probe Nucleic acid amplification test method ADENOVIRUS Not Detected INFLUENZA A Not Detected INFLUENZA A (SUBTYPE H1) Not Detected INFLUENZA A (SUBTYPE H3) Not Detected INFLUENZA B Not Detected HUMAN METAPHNEUMO Not Detected PARAINFLUENZA 1 Not Detected PARAINFLUENZA 2 Not Detected PARAINFLUENZA 3 Not Detected PARAINFLUENZA 4 Not Detected RHINOVIRUS A Positive for RHINOVIRUS by NAAT technology A RSV A Not Detected RSV B Not Detected RHINOVIRUS Normal [facility] Comment on above: Performed By: #### L 500.2500, L501.2300, L501.5200, L100.0100 #### [facility] Laboratory [address] [place], [place], [address] Serum or plasma albumin ezra urement (mass/volume)Ordered By: [facility] on 02-26-2023 Albumin [Mass/Vol] 2.1 g/dL 3.2-5.0 [facility] Serum or plasma albumin/glob ulin mass ratioOrdered By: on 02-26-2023 Albumin/Globulin [Mass ratio] 0.4 {ratio} 0.9-2.4 [facility] Strep pneumoniae Antig(UR,CS F)on 02-26-2023 STPAG URINE INTERPRETATION Negative Urine Presumptive negative for pneumococcal pneumonia, suggesting no current or recent pneumococcal infection. Infection due to S pneumoniae cannot be ruled out since the antigen present in the sample may be below the detection limit of the test. Strep pneumo Test Negative URINE (See interpretation below) Normal [facility] Comment on above: Performed By: #### L 500.2500, L501.2300, L501.5200, L100.0100 #### [facility] Laboratory [address] [place], [address] Thin prep Papanicolaou smear with manual screeningOrdered By: Chelsi Warner on 02-26-2023 Thin prep Papanicolaou smear with manual screening 13 U/L 15-37 [facility] 12 Lead EKGon 02-25-2023 12 Lead EKG [facility] [address] [place] [address] 12 Lead EKG 02/25/23 1525 MR#: [id number] Acct: [id number] Name: ROSA MARIA MENJIVAR Rep #: [id number] : 1965 57 From: John Bazzi MD Attending Dr: Dr. Russell Flower MD Status: DIS IN Ordering Dr: Desmond Infante MD Date: 02/25/23 Location: [facility] [place] Sex: F C Admitted: 02/25/23 Test Reason : SOB Blood Pressure : / mmHG Vent. Rate : 090 BPM Atrial Rate : 090 BPM P-R Int : 210 ms QRS Dur : 080 ms QT Int : 362 ms P-R-T Axes : 064 083 065 degrees QTc Int : 442 ms Sinus rhythm with 1st degree A-V block Otherwise normal ECG Confirmed by ANANYA MALLOY, JOHN ([id number]), greeting card editor RON SEARS ([id number]) on 02/28/2023 6:38:47 AM Referred By: TYRESE/JENNIFER Confirmed By:JOHN BAZZI MD 02/28/23 0638 Date John Bazzi MD CC: Dr. Russell Flower MD; Dr. Desmond Infante MD; Dr. Samson Hogan MD Signed Normal [facility] Absolute lymphocyte countOrd ered By: Desmond Infante on 02-25-2023 Lymphocytes Auto (Unsp spec) [#/Vol] 1.79 10*3/uL 0.83-4.51 [facility] BNP,B-Type NATRIURETIC PEPTI Joe 02-25-2023 Natriuretic peptide B (Bld) [Mass/Vol] 55.2 pg/mL Normal 0-100 [facility] Comment on above: Performed By: #### L 500.2500, L501.2300, L501.5200, L100.0100 #### [facility] Laboratory [address] [place], [address] Basic Metabolic Profile (BMP )on 02-25-2023 BUN/CRE 42.6 RATIO High 10-20 [facility] Comment on above: Performed By: #### L 500.2500, L501.2300, L501.5200, L100.0100 #### [facility] Laboratory [address] [place], [address] CA,Total 8.6 mg/dL Normal 8.5-10.1 [facility] Comment on above: Performed By: #### L 500.2500, L501.2300, L501.5200, L100.0100 #### [facility] Laboratory [address] [place], [address] Chloride [Moles/Vol] 98 mmol/L Normal 98-107 [facility] Comment on above: Performed By: #### L 500.2500, L501.2300, L501.5200, L100.0100 #### [facility] Laboratory [address] [place], [address] CO2 [Moles/Vol] 38.0 mmol/L High 21.0-32.0 [facility] Comment on above: Performed By: #### L 500.2500, L501.2300, L501.5200, L100.0100 #### [facility] Laboratory [address] [place], [address] Creatinine [Mass/Vol] 0.70 mg/dL Normal 0.55-1.02 [facility] Comment on above: Result Comment: The validity of the calculated GFR GFRAA in patients over 70 years has not been determined. Clinical correlation is essential. Performed By: #### L 500.2500, L501.2300, L501.5200, L100.0100 #### [facility] Laboratory [address] [place], [address] ECRCL 134.13 ml/min Normal [facility] Comment on above: Performed By: #### L 500.2500, L501.2300, L501.5200, L100.0100 #### [facility] Laboratory [address] [place], [address] EST GFR - AA 110 mL/min Normal >60 [facility] Comment on above: Result Comment: Afri can Micronesian GFR Calc Performed By: #### L 500.2500, L501.2300, L501.5200, L100.0100 #### [facility] Laboratory [address] [place], [address] GAP 4 Low 5-15 [facility] Comment on above: Performed By: #### L 500.2500, L501.2300, L501.5200, L100.0100 #### [facility] Laboratory [address] [place], [address] GFR/1.73 sq M.predicted among non-blacks MDRD (S/P/Bld) [Vol rate/Area] 91 mL/min/{1.73_m2} Normal >60 [facility] Comment on above: Result Comment: Non- GFR Calc Performed By: #### L 500.2500, L501.2300, L501.5200, L100.0100 #### [facility] Laboratory [address] [place], [address] Glucose [Mass/Vol] 261 mg/dL High 74-106 [facility] Comment on above: Result Comment: Gluc ose result greater than or equal to 200 mg/dL suggests DIABETES MELLITUS per A.D.A. criteria. Performed By: #### L 500.2500, L501.2300, L501.5200, L100.0100 #### [facility] Laboratory [address] [place], [address] Potassium [Moles/Vol] 3.9 mmol/L Normal 3.5-5.1 [facility] Comment on above: Performed By: #### L 500.2500, L501.2300, L501.5200, L100.0100 #### [facility] Laboratory [address] [place], [address] Sodium [Moles/Vol] 140 mmol/L Normal 136-145 [facility] Comment on above: Performed By: #### L 500.2500, L501.2300, L501.5200, L100.0100 #### [facility] Laboratory [address] [place], [address] Urea nitrogen [Mass/Vol] 30 mg/dL High 7-18 [facility] Comment on above: Performed By: #### L 500.2500, L501.2300, L501.5200, L100.0100 #### [facility] Laboratory [address] [place], [address] Basophil percentageOrdered B y: Desmond Infante on 02-25-2023 Basophils/100 WBC (Bld) 0.6 % 0-1 [facility] Chloride [Moles/Vol] 98 mmol/L 98-107 [facility] Eosinophils/100 WBC (Bld) 1.1 % 0-5 [facility] Glucose [Mass/Vol] 261 mg/dL 74-106 [facility] Comment on above: Glucose result great er than or equal to 200 mg/dLsuggests DIABETES MELLITUS per A.D.A. criteria. Lactate [Moles/Vol] 1.6 mmol/L 0.4-2.0 [facility] Neutrophils (Bld) [#/Vol] 12.9 10*3/uL 2.0-7.7 [facility] Neutrophils/100 WBC (Bld) 79.4 % 47-70 [facility] Potassium [Moles/Vol] 3.9 mmol/L 3.5-5.1 [facility] Sodium [Moles/Vol] 140 mmol/L 136-145 [facility] WBC (Bld) [#/Vol] 16.2 10*3/uL 4.4-11.0 [facility] Bedside Glucoseon 02-25-2023 FINGERSTICK GLU 433 mg/dL High 74-106 [facility] Comment on above: Result Comment: CHLOÉ POTTS OF PATIENT CARE PER NURSING PROTOCOL Performed By: #### L 500.2500, L501.2300, L501.5200, L100.0100 #### [facility] Laboratory [address] [place], [place], [id number] Blood erythrocytes count (nu mber/volume)Ordered By: Desmond Infante on 02-25-2023 RBC (Bld) [#/Vol] 5.13 10*6/uL 4.2-5.4 [facility] Blood hemoglobin measurement (mass/volume)Ordered By: Desmond Infante on 02-25-2023 Hemoglobin (Bld) [Mass/Vol] 13.5 g/dL 12.0-15.0 [facility] Blood lymphocytes/100 leukoc ytesOrdered By: Desmond Infante on 02-25-2023 Lymphocytes/100 WBC (Bld) 11.1 % 19-41 [facility] Blood monocytes/100 leukocyt esOrdered By: Desmond Infante on 02-25-2023 Monocytes/100 WBC (Bld) 7.2 % 0-10 [facility] Blood platelet mean volumeOr dered By: Desmond Infante on 02-25-2023 Platelet mean volume (Bld) [Entitic vol] 9.9 fL 6.2-12.0 [facility] CBC W/Diff, Automatedon 02-14 Absolute Lymph 1.79 X10 3/uL Normal 0.83-4.51 [facility] Comment on above: Performed By: #### L 100.0100, L500.2500, L503.6620 #### [facility] [address] [place], [address] Absolute Neut 12.9 X10 3/uL High 2.0-7.7 [facility] Comment on above: Performed By: #### L 100.0100, L500.2500, L503.6620 #### [facility] [address] [place], [address] Basophils/100 WBC (Bld) 0.6 % Normal 0-1 [facility] Comment on above: Performed By: #### L 100.0100, L500.2500, L503.6620 #### [facility] [address] [place], [address] Eosinophils/100 WBC (Bld) 1.1 % Normal 0-5 [facility] Comment on above: Performed By: #### L 100.0100, L500.2500, L503.6620 #### [facility] [address] [place], [address] Erythrocyte distribution width (RBC) [Ratio] 13.7 % Normal 11.6-14.6 [facility] Comment on above: Performed By: #### L 100.0100, L500.2500, L503.6620 #### [facility] [address] [place], [address] Hematocrit (Bld) [Volume fraction] 45.6 % Normal 37-47 [facility] Comment on above: Performed By: #### L 100.0100, L500.2500, L503.6620 #### [facility] [address] [place], [address] Hemoglobin (Bld) [Mass/Vol] 13.5 g/dL Normal 12.0-15.0 [facility] Comment on above: Performed By: #### L 100.0100, L500.2500, L503.6620 #### [facility] [address] [place], [address] IG% 0.600 Normal 0.0-0.9 [facility] Comment on above: Result Comment: IG% - Immature Granulocytes (promyelocytes, myelocytes and metamyelocytes) > 1% indicates that a LEFT SHIFT is Present. Performed By: #### L 100.0100, L500.2500, L503.6620 #### [facility] [address] [place], [address] Lymphocytes/100 WBC (Bld) 11.1 % Low 19-41 [facility] Comment on above: Performed By: #### L 100.0100, L500.2500, L503.6620 #### [facility] [address] [place], [address] MCH (RBC) [Entitic mass] 26.3 pg Low 27.0-32.0 [facility] Comment on above: Performed By: #### L 100.0100, L500.2500, L503.6620 #### [facility] [address] [place], [address] MCHC (RBC) [Mass/Vol] 29.6 g/dL Low 32-36 [facility] Comment on above: Performed By: #### L 100.0100, L500.2500, L503.6620 #### [facility] [address] [place], [address] MCV (RBC) [Entitic vol] 88.9 fL Normal 81-99 [facility] Comment on above: Performed By: #### L 100.0100, L500.2500, L503.6620 #### [facility] [address] [place], [address] Monocytes/100 WBC (Bld) 7.2 % Normal 0-10 [facility] Comment on above: Performed By: #### L 100.0100, L500.2500, L503.6620 #### [facility] [address] [place], [address] Neutrophils/100 WBC (Bld) 79.4 % High 47-70 [facility] Comment on above: Performed By: #### L 100.0100, L500.2500, L503.6620 #### [facility] [address] [place], [address] Nucleated RBC (Bld) [#/Vol] 0 10*3/uL Normal 0-5 [facility] Comment on above: Performed By: #### L 100.0100, L500.2500, L503.6620 #### [facility] [address] [place], [address] Platelet mean volume (Bld) [Entitic vol] 9.9 fL Normal 6.2-12.0 [facility] Comment on above: Performed By: #### L 100.0100, L500.2500, L503.6620 #### [facility] [address] [place], [address] Platelets (Bld) [#/Vol] 267 10*3/uL Normal 150-450 [facility] Comment on above: Performed By: #### L 100.0100, L500.2500, L503.6620 #### [facility] [address] [place], [address] RBC (Bld) [#/Vol] 5.13 10*6/uL Normal 4.2-5.4 [facility] Comment on above: Performed By: #### L 100.0100, L500.2500, L503.6620 #### [facility] [address] [place], [address] RDW SD 44.9 fl High 35.1-43.9 [facility] Comment on above: Performed By: #### L 100.0100, L500.2500, L503.6620 #### [facility] [address] [place], [address] WBC (Bld) [#/Vol] 16.2 10*3/uL High 4.4-11.0 [facility] Comment on above: Performed By: #### L 100.0100, L500.2500, L503.6620 #### [facility] [address] [place], [address] Chest 1 View (Portable)on Chest 1 View (Portable) [facility] Imaging Services [address] [place] [address] Chest 1 View (Portable) MR#: [id number] Acct: [id number] Name: ROSA MARIA MENJIVAR Rep #: [id number] : 1965 F 57 From: Dakota Broussard PCP: Dr. Samson Hogan MD Status: [facility] Study: Chest 1 View (Portable) Date of Exam: 02/25/23 Exam# [id number] Ordering Dr: Desmond Infante MD -[id number] STUDY: X-RAY CHEST REASON FOR EXAM: Female, 57 years old. cough TECHNIQUE: Single frontal view of the chest. COMPARISON: September 02, 2019 FINDINGS: Mild edema or interstitial infiltrates. There is no demonstrated pleural abnormality. Cardiomegaly. Normal mediastinum and ravi. Normal visualized pulmonary arteries. Normal visualized aortic arch and descending thoracic aorta. Normal visualized thoracic spine. Normal visualized ribs, clavicles, and shoulders. There is no demonstrated abnormality of the visualized soft tissue structures of the upper abdomen. RAD/Chest 1 View (Portable) IMPRESSION: Mild CHF or interstitial infiltrates Electronically Signed: Dakota Montague MD at 16:51 EST Reading Location ID and State: [facility] / [place] Tel , Service support , CC: Dr. Desmond Infante MD; Dr. Samson Hogan MD Night Shift Supervisor: Signed Normal [facility] Determination of erythrocyte mean corpuscular volume (MCV)Ordered By: Desmond Infante on 02-25-2023 MCV (RBC) [Entitic vol] 88.9 fL 81-99 [facility] Emergency Department Summary on 02-25-2023 Emergency Department Summary [facility] Medical Records Department [address] [place] [address] Emergency Department Summary 02/25/23 MR#: [id number] Acct: [id number] Name: ROSA MARIA MENJIVAR Rep #: [id number] : 1965 57 From: Desmond Infante MD PCP: Dr. Samson Hogan MD Status:REG ER Location: ED HPI History of Present Illness Chief Complaint: Shortness of Breath Informant: patient Narrative Narrative: Patient presents with dyspnea and cough. Patient states she started having symptoms 3 to 4 days ago. She has COPD. She is on 2 L. She states she has inhalers but no home respiratory treatments. She is on Lasix 40 a day this has not changed. But she denies a history of CHF. She states the last 3 to 4 days she has been coughing more. She is bringing up more material but does not know what it looks like. She states she has not seen blood. She has never had chest pain with it. She has felt hot and cold but has not actually checked her temperature. [facility] Medical History Degenerative disc disease Depression HTN (hypertension) IBS (irritable bowel syndrome) Microalbuminuria Obesity Panic disorder Sleep apnea Type 2 diabetes mellitus Urinary calculus Home Medications atenolol 50 mg tablet 50 mg PO DAILY BP 03/04/15 [History Last Taken 04/28/20 08:00] furosemide 40 mg tablet 40 mg PO DAILY water retention 03/04/15 [History Last Taken 04/28/20 08:00] gabapentin 300 mg capsule 300 mg PO TID nerve pain 03/04/15 [History Last Taken 04/28/20 17:00] lisinopril 20 mg-hydrochlorothiaz cory 12.5 mg tablet 2 tab PO DAILY BP 03/04/15 [History Last Taken 04/28/20 08:00] metformin 500 mg tablet 1,000 mg PO BIDCM diabetes 03/04/15 [History Last Taken 04/28/20 17:00] venlafaxine 150 mg capsule,extended release 24 hr 225 mg PO DAILY mood 03/04/15 [History Last Taken 04/28/20 08:00] albuterol sulfate 90 mcg/actuation breath activated powder inhaler 2 inh inhalation Q4H PRN Wheezing 12/26/18 [History Last Taken Unknown] aspirin 81 mg tablet,delayed release (Adult Low Dose Aspirin) 81 mg PO DAILY heart health 12/26/18 [History Last Taken 04/28/20 08:00] atorvastatin 40 mg tablet 40 mg PO QHS cholesterol 12/26/18 [History Last Taken 04/27/20 22:00] dulaglutide 1.5 mg/0.5 mL subcutaneous pen injector (Trulicity) 1.5 mg subcut TH diabetes 12/26/18 [History Last Taken 04/24/20 12:00] ibuprofen 800 mg tablet 800 mg PO Q6H PRN Pain Or Fever 12/26/18 [History Last Taken Unknown] potassium chloride 10 mEq tablet,extended release (K-Tab) 20 meq PO DAILY supplement 12/26/18 [History Last Taken 04/28/20 08:00] insulin degludec 100 unit/mL (3 mL) subcutaneous pen 88 unit SQ BID diabetes 09/01/19 [History Last Taken 04/28/20 17:00] buspirone 5 mg tablet 5 mg PO TID mood 04/28/20 [History Last Taken 04/28/20 17:00] insulin lispro 100 unit/mL subcutaneous pen 40 unit SQ LUNCH diabetes 04/28/20 [History Last Taken 04/28/20 12:00] insulin lispro 100 unit/mL subcutaneous pen 64 unit SQ BREAKFAST diabetes 04/28/20 [History Last Taken 04/28/20 08:00] insulin lispro 100 unit/mL subcutaneous pen 94 unit subcut QHS diabetes 04/28/20 [History Last Taken 04/28/20 17:00] amoxicillin 875 mg-potassium clavulanate 125 mg tablet 875 mg (0.875 x 875-125 mg) PO Q12H #10 TABLETS 04/30/20 [Rx Last Taken Unknown] sulfamethoxazole 800 mg-trimethoprim 160 mg tablet 1 tablet PO BID #10 TABLETS 04/30/20 [Rx Last Taken Unknown] Allergy/AdvReac Type Severity Reaction Status Date / Time tetanus and diphtheria Allergy Unknown swollen Verified 02/25/23 15:23 toxoids glands in neck that didn't decrease ketorolac tromethamine Allergy vivid Verified 02/25/23 15:23 [From Toradol] dreams morphine Allergy Itching Verified 02/25/23 15:23 Family History Aunt Diabetes Father Heart disease Sister Heart disease Grandfather Colon cancer Unknown Breast cancer Surgical History H/O dilation and curettage H/O lithotripsy History of renal stent Hx of cholecystectomy R lower portion of kidney removed repair of r arm fx Social History Smoking Status: Current some day smoker tobacco type: cigarettes alcohol intake: never substance use type: does not use ROS ROS ED ROS Narrative A complete review of systems was performed and is negative except as documented in the history of present illness. Some specific details below. Constitutional: No recent measured fevers but she has had chills intermittently which is new. EYE: No discharge, visual complaints, or pain. ENT: No difficulty swallowing. No swelling. No pain. No reflux symptoms. CV: She denies palpitations or chest pain. No syncope. Respiratory (more content not included)... Normal [facility] Gram stain for investigation of transfusion reactionOrdered By: Chelsi Warner on 02-25-2023 Microscopic observation Gram stain Nom (Unsp spec) [facility] H AND P Exam - Hospitaliston 02-25-2023 H&P Exam - Hospitalist [facility] Medical Records Department [address] [place] [address] H P Exam - Hospitalist 02/25/23 1813 MR#: [id number] Acct: [id number] Name: ROSA MARIA MENJIVAR Rep #: [id number] : 1965 57 From: Chelsi Warner MD PCP: Dr. Samson Hogan MD Status:ADM IN Location: [facility] [place] [id number] HPI - General General Date of Admission: 02/25/23 Date of Service: 02/25/23 Chief Complaint: Dyspnea, cough, increased sputum, subjective fever/chills. HPI Narrative The patient is a 57 y/o F w/ PMHx: Morbid Obesity, Depression and Anxiety/Panic disorder, HTN, HLD, KELLIE, Diabetes mellitus type II with chronic neuropathy, COPD w/ Chronic Hypoxic Respiratory Failure (2L NC), Tobacco use, History of renal artery stenosis s/p PCI who presents to the [facility] ED on 02/25/2023 with history of onset progressively worsening fatigue, malaise, dyspnea and cough normally on 2 L nasal cannula with inhalers at home but no respiratory treatments on chronic Lasix 40 daily which is unchanged with no recent weight gain or marked orthopnea with reported productive sputum with no associated chest discomfort with subjective fevers and chills but no specific temperature check as well as congestion and rhinorrhea with sick contacts including her and her son with similar symptoms prompting eventual ED evaluation. Workup in the ED included T97.9, heart rate 90, BP 129/83, respiratory rate 24, initially 91% on 4 L nasal cannula with most recent vital signs heart rate 87, BP 171/62, respiratory rate 25, 89% on 5 L nasal cannula, CBC with WBC 16.2, hgb 13.5, platelet 267 with left shift, BMP with 38, BUN/creatinine 30/0.70, glucose 261, lactic acid 1.6, BNP 55.2, chest x-ray with mild interstitial infiltrates/possibl y CHF, blood culture x 2 pend ing per ED, rapid SARS COVID/influenza/RSV PCR negative. In the ED patient ministered Solu-Medrol 1 25 mg IV x 1, DuoNeb and albuterol therapies, Motrin 400 mg p.o. x 1 as well as Rocephin 1 g IV x 1. [facility] Medical History (Updated 02/25/23 @ 19:[address] Chelsi Warner MD) Anxiety and depression Chronic respiratory failure Degenerative disc disease GERD (gastroesophageal reflux disease) HTN (hypertension) IBS (irritable bowel syndrome) Microalbuminuria Morbid obesity Neuropathy Panic disorder Sleep apnea Tobacco dependence syndrome Type 2 diabetes mellitus Urinary calculus Home Medications atenolol 50 mg tablet 50 mg PO DAILY BP 01/19/16 [History Last Taken 04/28/20 08:00] furosemide 40 mg tablet 40 mg PO DAILY water retention 03/04/15 [History Last Taken 04/28/20 08:00] gabapentin 300 mg capsule 300 mg PO TID nerve pain 03/04/15 [History Last Taken 04/28/20 17:00] lisinopril 20 mg-hydrochlorothiaz cory 12.5 mg tablet 2 tab PO DAILY BP 03/04/15 [History Last Taken 04/28/20 08:00] venlafaxine 150 mg capsule,extended release 24 hr 150 mg PO DAILY mood 03/04/15 [History Last Taken 04/28/20 08:00] albuterol sulfate 90 mcg/actuation breath activated powder inhaler 2 inh inhalation Q4H PRN Wheezing 12/26/18 [History Last Taken Unknown] aspirin 81 mg tablet,delayed release (Adult Low Dose Aspirin) 81 mg PO DAILY heart health 12/26/18 [History Last Taken 04/28/20 08:00] atorvastatin 40 mg tablet 40 mg PO QHS cholesterol 12/26/18 [History Last Taken 04/27/20 22:00] dulaglutide 1.5 mg/0.5 mL subcutaneous pen injector (Trulicity) 1.5 mg subcut TH diabetes 12/26/18 [History Last Taken 04/24/20 12:00] ibuprofen 800 mg tablet 800 mg PO Q6H PRN Pain Or Fever 12/26/18 [History Last Taken Unknown] potassium chloride 10 mEq tablet,extended release (K-Tab) 20 meq PO DAILY supplement 12/26/18 [History Last Taken 04/28/20 08:00] insulin degludec 100 unit/mL (3 mL) subcutaneous pen 83 unit SQ BID diabetes 09/01/19 [History Last Taken 04/28/20 17:00] buspirone 5 mg tablet 5 mg PO TID mood 04/28/20 [History Last Taken 04/28/20 17:00] insulin lispro 100 unit/mL subcutaneous pen 40 unit SQ LUNCH diabetes 04/28/20 [History Last Taken 04/28/20 12:00] insulin lispro 100 unit/mL subcutaneous pen 64 unit SQ BREAKFAST diabetes 04/28/20 [History Last Taken 04/28/20 08:00] insulin lispro 100 unit/mL subcutaneous pen 94 unit subcut QHS diabetes 04/28/20 [History Last Taken 04/28/20 17:00] sulfamethoxazole 800 mg-trimethoprim 160 mg tablet 1 tablet PO BID #10 TABLETS 04/30/20 [Rx Last Taken Unknown] insulin lispro 100 unit/mL subcutaneous half-unit pen (Humalog Zafar KwikPen (U-100)) 3 unit subcut DAILY 02/25/23 [History Last Taken Unknown] insulin lispro 100 unit/mL subcutaneous half-unit pen (Humalog Zafar KwikPen (U-100)) 63 unit subcut DAILY 02/25/23 [History Last Taken Unknown] insulin lispro 100 unit/mL subcutaneous half-unit pen (Humalog Zafar KwikPen (U-100)) 93 unit subcut QHS 02/25/23 [History Last Taken Unknown] metformin 500 mg tablet,extended release 24 hr 1,000 mg PO BID 02/25/23 [History Last Taken Unknown] om (more content not included)... Normal [facility] Hematocrit Auto (Bld) [Volum e fraction]Ordered By: Desmond Infante on 02-25-2023 Hematocrit (Bld) [Volume fraction] 45.6 % 37-47 [facility] - Chemistry and C hemistry - challengeOrdered By: Desmond Infante on 02-25-2023 CO2 [Moles/Vol] 38.0 mmol/L 21.0-32.0 [facility] Natriuretic peptide B (Bld) [Mass/Vol] 55.2 pg/mL 0-100 [facility] Urea nitrogen/Creatinine [Mass ratio] 42.6 mg/mg 10-20 [facility] - Hematology and Cell countsOrdered By: Desmond Infante on 02-25-2023 Erythrocyte distribution width (RBC) [Entitic vol] 44.9 fL 35.1-43.9 [facility] Erythrocyte distribution width (RBC) [Ratio] 13.7 % 11.6-14.6 [facility] Immature granulocytes/100 WBC (Bld) 0.600 % 0.0-0.9 [facility] Comment on above: IG% - Immature Granu locytes (promyelocytes, myelocytes and metamyelocytes) > 1% indicates that a LEFT SHIFT is Present. MCH (RBC) [Entitic mass] 26.3 pg 27.0-32.0 [facility] Nucleated RBC/100 WBC (Bld) [Ratio] 0 % 0-5 [facility] - Microbiology an d Antimicrobial susceptibilityOrdered By: Desmond Infante on 02-25-2023 SARS-CoV-2 (COVID-19) RNA DEMETRIO+probe Ql (Unsp spec) [facility] Lactic Acidon 02-25-2023 Lactate [Moles/Vol] 1.6 mmol/L Normal 0.4-1.9 [facility] Comment on above: Order Comment: Y Performed By: #### M 200.1000, L503.6005 #### [facility] [address] [place], [address] M100.678on 02-25-2023 M100.678 SARS-CoV-2 (COVID 19) Negative INFLUENZA A Negative INFLUENZA B Negative RSV PCR Negative Normal [facility] Comment on above: Performed By: #### L 500.2500, L501.2300, L501.5200, L100.0100 #### [facility] [address] [place], [address] MCHC Auto (RBC) [Mass/Vol]Or dered By: Desmond Infante on 02-25-2023 MCHC (RBC) [Mass/Vol] 29.6 g/dL 32-36 [facility] No Panel InformationOrdered By: Chelsi Warner on 02-25-2023 Methicillin-Resist S.aureus DNA PCR Negative Negative [facility] Streptococcus pneumoniae Antigen (M [facility] No Panel InformationOrdered By: Desmond Infante on 02-25-2023 Estimated Creatinine Clearance Calc 134.13 ml/min [facility] Estimated GFR (MDRD) Amer 110 mL/min >60 [facility] Comment on above: GFR Calc Estimated GFR (MDRD) Non-Af Amer 91 mL/min >60 [facility] Comment on above: Non- GFR Calc Platelets bldOrdered By: Woo Infante on 02-25-2023 Platelets (Bld) [#/Vol] 267 10*3/uL 150-450 [facility] Procalcitoninon 02-25-2023 Procalcitonin < 0.01 Normal 0.00-0.09 [facility] Comment on above: Result Comment: A procalcitonin (PCT) level above 2.0 ng/mL on the first day of ICU admission is associated with a high risk for progression to severe sepsis and/or septic shock. A PCT level below 0.5 ng/mL on the first day of ICU admission is associated with a low risk for progression to severe and/or septic shock. Note: Concentrations <0.5 ng/mL do not exclude an infection on account of localized infections (without systemic signs) which can be associated with such low concentrations, or a systemic infection in its initial stages (<6 hours). Furthermore, increased procalcitonin can occur without infection. PCT concentrations between 0.5 and 2.0 ng/mL should be interpreted taking into account the patient's history. It is recommended to retest PCT within 6-24 hours if any concentrations <2 ng/mL are obtained. Performed By: #### L 500.2500, L501.2300, L501.5200, L100.0100 #### [facility] [address] [facility] [place], [address] Serum or plasma calcium ezra urement (mass/volume)Ordered By: Desmond Infante on 02-25-2023 Calcium [Mass/Vol] 8.6 mg/dL 8.5-10.1 [facility] Serum or plasma creatinine m easurement (mass/volume)Ordered By: Desmond Infante on 02-25-2023 Creatinine [Mass/Vol] 0.70 mg/dL 0.55-1.02 [facility] Comment on above: The validity of the calculated GFR & GFRAA in patients over 70 years has not been determined. Clinical correlation is essential. Serum or plasma urea nitroge n measurement (mass/volume)Ordered By: Desmond Infante on 02-25-2023 Urea nitrogen [Mass/Vol] 30 mg/dL 7-18 [facility] Serum procalcitonin measurem entOrdered By: Chelsi Warner on 02-25-2023 Procalcitonin [Mass/Vol] ng/mL 0.00-0.09 [facility] Comment on above: A procalcitonin (PCT ) level above 2.0 ng/mL on the first day of ICU admission is associated with a high risk for progression to severe sepsis and/or septic shock. A PCT level below 0.5 ng/mL on the first day of ICU admission is associated with a low risk for progression to severe and/or septic shock. Note: Concentrations <0.5 ng/mL do not exclude an infection on account of localized infections (without systemic signs) which can be associated with such low concentrations, or a systemic infection in its initial stages (<6 hours). Furthermore, increased procalcitonin can occur without infection. PCT concentrations between 0.5 and 2.0 ng/mL should be interpreted taking into account the patient's history. It is recommended to retest PCT within 6-24 hours if any concentrations <2 ng/mL are obtained. Thin prep Papanicolaou smear with manual screeningOrdered By: Desmond Infante on 02-25-2023 Thin prep Papanicolaou smear with manual screening 06-28 [facility] Urine Legionella pneumophila antigen detectionOrdered By: Chelsi Warner on 02-25-2023 L. pneumophila Ag Ql (U) [facility] US THYROID/PARATHYROIDon [facility] CBC W Auto Differential pane l (Bld)on 07-23-2022 Basophils (Bld) [#/Vol] 0.05 10*3/uL <0.11 k/uL [facility] Basophils/100 WBC (Bld) 0.4 % [facility] Differential cell count method Nom (Bld) Auto [facility] Eosinophils (Bld) [#/Vol] 0.18 10*3/uL <0.46 k/ uL [facility] Eosinophils/100 WBC (Bld) 1.6 % [facility] Erythrocyte distribution width (RBC) [Ratio] 14.8 % 11.5 - 15.0 % [facility] Hematocrit (Bld) [Volume fraction] 42.7 % 36.0 - 46.0 % [facility] Hemoglobin (Bld) [Mass/Vol] 13.8 g/dL 11.5 - 15.5 g/dL [facility] Immature granulocytes (Bld) [#/Vol] 0.03 10*3/uL <0.10 k/uL [facility] Immature granulocytes/100 WBC (Bld) 0.3 % [facility] Lymphocytes (Bld) [#/Vol] 1.71 10*3/uL 1. 00 - 4.00 k/uL [facility] Lymphocytes/100 WBC (Bld) 15.1 % [facility] MCH (RBC) [Entitic mass] 27.3 pg 26. 0 - 34.0 pg [facility] MCHC (RBC) [Mass/Vol] 32.3 g/dL 30.5 - 36.0 g/dL [facility] MCV (RBC) [Entitic vol] 84.6 fL 80.0 - 100.0 fL [facility] Monocytes (Bld) [#/Vol] 0.73 10*3/uL <0.87 k/uL [facility] Monocytes/100 WBC (Bld) 6.4 % [facility] Neutrophils (Bld) [#/Vol] 8.66 10*3/uL High 1. 45 - 7.50 k/uL [facility] Neutrophils/100 WBC (Bld) 76.2 % [facility] Nucleated RBC (Bld) [#/Vol] <0.01 k/uL [facility] Nucleated RBC/100 WBC (Bld) [Ratio] 0.0 /100 WBC [facility] Platelet mean volume (Bld) [Entitic vol] 10.3 fL 9.0 - 12.7 fL [facility] Platelets (Bld) [#/Vol] 294 10*3/uL 150 - 400 k/uL [facility] RBC (Bld) [#/Vol] 5.05 10*6/uL 3.90 - 5.2 0 m/uL [facility] WBC (Bld) [#/Vol] 11.36 10*3/uL High 3.70 - 11 .00 k/uL [facility] CT CHEST WO IVCONon 05-18-19 23 Radiology Result ACTIONABLE Abnormal [facility] NURSING PROGon 01-19-2021 NURSING PROG HNO ID: [id number] Author: Joan Ruth, RN Service: Nursing Author Type: Registered Nurse Type: Nursing Progress Note Filed: 01/19/2021 9:04 AM Note Text: Called talent director at Dr. Reynolds's office and notified that pt is rescheduling pst due to having a covid test today. Pt states members in the house are positive [facility] CNPVee 09-30-2020 CNPN Telephone ([facility]) ---- ROSAM ARIA MENJIVAR ([id number]) 1965 F Date Time Provider Department 09/30/20 DORON REYNOLDS JR During your visit today, we recorded the following information about you: Pilar Romanoryan Meehan 09/30/2020 2:44 PM Signed September 30, 2020 2:43 PM Patient called, she states she has been cleared from pulmonology to be scheduled for surgery. She saw you 01/2020. Do you need to see her again in the office? Please advise Pilar Reynolds Jr, MD 10/08/2020 1:54 PM Signed No Ok to schedule Joseph Chen, Joseph fam [facility] Pilar Meehan 10/08/2020 4:20 PM Signed October 08, 2020 4:19 PM Left voicemail for patient to call me back to schedule her surgery. Faxed clearance forms to [facility] at [phone] Pilar Dos Santos Allergies As of Date: 09/30/2020 Noted Allergy Reaction MORPHINE 10/14/2010 9 - Itching TETANUS AND DIPHTHERIA TOXOIDS, A*11/10/2012 14 - Other: See Comments Comments: ? Reactive lymphadenopathy TORADOL (KETOROLAC TROMETHAMINE) 11/24/2007 Comments: Heart racing and nightmares Date Reviewed: 09/22/2020 Reviewed by: Chris Schroeder - Fully Assessed Reason for Visit: Schedule Surgery [1330] Prescriptions as of 10/08/2020 - insulin lispro (HUMALOG) 200 unit/mL (3 mL) injection Inject subcutaneously 66 units with breakfast, 40 units with lunch and 94 units with dinner - busPIRone (BUSPAR) 5 mg tablet Take 1 tablet by mouth three times daily. - dulaglutide (TRULICITY) 1.5 mg/0.5 mL pen injector Inject 1.5 mg subcutaneously one time a week. Inject once per week. Discard Pen After. - lisinopril-hydroCHL OROthiazide (PRINZIDE,ZESTORETI C) 20-12.5 mg per tablet Take 2 tablets by mouth once daily. - atenolol (TENORMIN) 50 mg tablet Take 1 tablet by mouth once daily. - atorvastatin (LIPITOR) 40 mg tablet Take 1 tablet by mouth daily at bedtime. - gabapentin (NEURONTIN) 300 mg capsule Take 1 capsule by mouth three times daily for 90 days. Appointment needed for further refills. - venlafaxine ER (EFFEXOR XR) 75 mg 24 hr capsule TAKE 1 CAPSULE BY MOUTH DAILY IN ADDITION TO 150 MG A DAY. - venlafaxine ER (EFFEXOR XR) 150 mg 24 hr capsule Take 1 capsule by mouth once daily. - potassium chloride (K-TAB) 10 mEq tablet Take 2 tablets by mouth daily with breakfast. - furosemide (LASIX) 40 mg tablet Take 1 tablet by mouth once daily. - insulin degludec (TRESIBA FLEXTOUCH U-200) 200 unit/mL (3 mL) injection Inject 88 Units subcutaneously twice daily. - Insulin [place], Disposable, (ULTICARE PEN NEEDLE) 29 gauge x 1/2 USE FIVE TIMES A DAY - metFORMIN ER (GLUCOPHAGE XR) 500 mg 24 hr tablet Take 2 tablets by mouth twice daily with meals. - albuterol HFA (PROVENTIL HFA, VENTOLIN HFA) 90 mcg/actuation inhaler Inhale 2 Puffs as instructed every 4 hours as needed. - flash glucose sensor (InventicSTYLE TERRELL 14 DAY SENSOR) kit Use to check blood sugar 4 times daily - aspirin, enteric coated (ASPIRIN, ENTERIC COATED) 81 mg EC tablet Take 1 tablet by mouth once daily. - buPROPion SR (WELLBUTRIN SR) 150 mg 12 hr tablet Take one tablet once a day for 3 days then increase to twice a day - CPAP 11 cm via nasal mask with 20 min ramp and humidification. - OXYGEN, HOME THERAPY, 2 L/min by Nasal Cannula route continuous. - blood sugar diagnostic (InventicSTYLE PRECISION WENDY STRIPS) test strip Use as instructed to check blood sugar when indicated by reader. Checking once daily. 25 strips per month. - flash glucose scanning reader (InventicSTAgLocal TERRELL 14 DAY READER) [facility] Use to check blood sugar 4 times daily - blood sugar diagnostic (BLOOD GLUCOSE TEST) test strip Test blood sugar(s) 4 times daily. Dx: Type 2 DM - Uncontrolled E11.65 Insulin: Yes - iv contrast (will be provided with radiology test) CT Urogram WO/W Inject, intravenously, once for 1 dose.No IV access, insert saline lock prior to the beginning of sedation, infusion, injection of imaging exam. Discontinue saline lock post exam. If Pt. has a central line or IVAD, may access for administration according to line specific nursing protocol. Once exam is complete flush line and de-access according to line specific nursing protocol in the CT contrast administration guidelines link. - ammonium lactate (LAC-HYDRIN) 12 % cream Apply 1 application to affected area as needed. - Lancets lancets Test blood sugar(s) 4 times daily. Dx: Type 2 DM - Uncontrolled E11.65 Insulin: Yes - COMPOUNDED PRESCRIPTION C-PAP MASK HOSES, FILTERS - glucose 4 gram chewable tablet Take 4 tablets by mouth as needed. For sugar less than 70 - COMPOUNDED PRESCRIPTION COMPRESSION STOCKINGS 20-30 mm Knee high. DX: venous insufficiency - COMPOUNDED PRESCRIPTION cpap supplies: sleep apnea - COMPOUNDED PRESCRIPTION CPAP mask Facility-Administer ed Medications as of 10/08/2020 - perflutren lipid vincenzo (more content not included)... [facility] XR Abdomen Supine and Uprigh ton 01-21-2020 IMPRESSION: Nonspecific nonobstructive bowel gas pattern with some fecal retention. Night Shift Supervisor: BLANE Transcribe Date/Time: Jan 21 2020 12:12P Dictated by : SHARON HENRIQUEZ MD This examination was interpreted and the report reviewed and electronically signed by: SHARON HENRIQUEZ MD on Jan 21 2020 12:15PM [facility] DIVISION OF RADIOLOGY * * *Final Report* * * DATE OF EXAM: Jan 21 2020 9:37AM WOX 5289 - XR ABDOMEN 1V SUPINE / PROCEDURE REASON: Kidney stone * * * * Physician Interpretation * * * * EXAMINATION: XR ABDOMEN 1V SUPINE HISTORY: Nephrolithiasis. pt states has blood in urine for a long time, had a ct maybe 3 months ago has a large stone but patient does not know which side. has no pain follow up. TECHNIQUE: XR ABDOMEN 1V SUPINE Laterality: NOT APPLICABLE Number of different views (projections): 2 M: XB_1 COMPARISON: Comparison is made to CT urogram dated 16 April 2019 LIMITATIONS: Some motion artifact and patient body habitus. Left renal shadow is obscured by gas and fecal residue. RESULT: Supine views of the abdomen demonstrate a nonobstructive bowel gas pattern. Gas and fecal residue obscure the left renal shadow nephrolithiasis cannot be ascertained. The soft tissues and bony structures are unremarkable. DIVISION OF RADIOLOGY Provider, [facility] [place] - 01/21/2020 * * *Final Report* * * DATE OF EXAM: Jan 21 2020 9:37AM WOX 5289 - XR ABDOMEN 1V SUPINE / PROCEDURE REASON: Kidney stone * * * * Physician Interpretation * * * * EXAMINATION: XR ABDOMEN 1V SUPINE HISTORY: Nephrolithiasis. pt states has blood in urine for a long time, had a ct maybe 3 months ago has a large stone but patient does not know which side. has no pain follow up. TECHNIQUE: XR ABDOMEN 1V SUPINE Laterality: NOT APPLICABLE Number of different views (projections): 2 M: XB_1 COMPARISON: Comparison is made to CT urogram dated 16 April 2019 LIMITATIONS: Some motion artifact and patient body habitus. Left renal shadow is obscured by gas and fecal residue. RESULT: Supine views of the abdomen demonstrate a nonobstructive bowel gas pattern. Gas and fecal residue obscure the left renal shadow nephrolithiasis cannot be ascertained. The soft tissues and bony structures are unremarkable. IMPRESSION IMPRESSION: Nonspecific nonobstructive bowel gas pattern with some fecal retention. Night Shift Supervisor: BLANE Transcribe Date/Time: Jan 21 2020 12:12P Dictated by : SHARON HENRIQUEZ MD This examination was interpreted and the report reviewed and electronically signed by: SHARON HENRIQUEZ MD on Jan 21 2020 12:15PM EST [facility] Radiology Study observation (narrative) [facility] XR Abdomen Supine and Uprigh tOrdered By: [facility] Provider on 01-21-2020 [facility] Vital Signs Date Time Vital Sign Value Performing Clinician Facility 08-08-2024 11:12-0400 Diastolic blood pressure 84 mm[Hg] Lu Greene APRN.[employer] BPM ARCHITECT Work Phone: [facility] 08-08-2024 11:12-0400 Systolic blood pressure 138 mm[Hg] Lu Greene APRN.[employer] ARCHITECT Work Phone: [facility] 08-08-2024 10:46-0400 Heart rate 87 /min Lu Haagen FRONTLOAD DRIVER.[employer] ARCHIT[employer] Work Phone: [facility] 08-08-2024 10:46-0400 Respiratory rate 16 /min Lu Haagen FRONTLOAD DRIVER.[employer] ARCHITECT Work Phone: [facility] 08-08-2024 10:46-0400 SaO2% (BldA) [Mass fraction] 92 % Lu Haagen FRONTLOAD DRIVER.[employer] ARCHITECT Work Phone: [facility] Comment on above: O2 @ 2lpm via [place] 06-06-2024 09:31-0400 Body mass index (BMI) [Ratio] 58.88 kg/m2 Lu Haagen FRONTLOAD DRIVER.[employer] ARCHIT[employer] Work Phone: [facility] 06-06-2024 09:31-0400 Body weight 155.58 kg Lu Haagen FRONTLOAD DRIVER.[employer] ARCHITECT Work Phone: [facility] 06-06-2024 09:31-0400 Diastolic blood pressure 88 mm[Hg] Lu Haagen FRONTLOAD DRIVER.[employer] B[employer] ARCHITECT Work Phone: [facility] 06-06-2024 09:31-0400 Heart rate 97 /min Lu Haagen FRONTLOAD DRIVER.[employer] ARCHITECT Work Phone: [facility] 06-06-2024 09:31-0400 Respiratory rate 18 /min Lu Haagen FRONTLOAD DRIVER.[employer] B[employer] ARCHITECT Work Phone: [facility] 06-06-2024 09:31-0400 SaO2% (BldA) [Mass fraction] 94 % Lu Haagen FRONTLOAD DRIVER.[employer] B[employer] ARCHITECT Work Phone: [facility] Comment on above: O2 @ 2lpm via [place] 06-06-2024 09:31-0400 Systolic blood pressure 148 mm[Hg] Lu Haagen FRONTLOAD DRIVER.[employer] B[employer] ARCHITECT Work Phone: [facility] 05-30-2024 09:23-0400 Body height 162.6 cm Pulm Wstr Work Phone: [facility] 05-30-2024 09:23-0400 Body mass index (BMI) [Ratio] 59.73 kg/m2 Pulm Wstr Work Phone: [facility] 05-30-2024 09:23-0400 Body weight 157.85 kg Pulm Wstr Work Phone: [facility] 05-30-2024 09:23-0400 Heart rate 111 /min Pulm Wstr Work Phone: [facility] 05-30-2024 09:23-0400 Respiratory rate 18 /min Pulm Wstr Work Phone: [facility] 05-30-2024 09:23-0400 SaO2% (BldA) [Mass fraction] 92 % Pulm Wstr Work Phone: [facility] Comment on above: RA [facility] 05-30-2024 09:20-0400 Body mass index (BMI) [Ratio] 59.73 kg/m2 Pilar Geraldo PA-C Work Phone: [facility] 05-30-2024 09:20-0400 Body weight 157.85 kg Pilar Geraldo PA-C Work Phone: [facility] 06-09-2023 10:04-0400 Body mass index (BMI) [Ratio] 58.88 kg/m2 NA Rizzo PA-C Work Phone: [facility] 06-09-2023 10:04-0400 Body weight 155.58 kg NA Rizzo PA-C Work Phone: [facility] 06-09-2023 10:04-0400 Diastolic blood pressure 84 mm[Hg] NA Rizzo PA-C Work Phone: [facility] 06-09-2023 10:04-0400 Heart rate 102 /min NA Rizzo PA-C Work Phone: [facility] 06-09-2023 10:04-0400 Respiratory rate 20 /min NA Rizzo PA-C Work Phone: [facility] 06-09-2023 10:04-0400 SaO2% (BldA) [Mass fraction] 97 % NA Rizzo PA-Melia Work Phone: [facility] 06-09-2023 10:04-0400 Systolic blood pressure 132 mm[Hg] NA Matthias MOON-Melia Work Phone: [facility] 02-27-2023 10:34-0500 Heart rate 80 /min Dr. Samson Hogan Work Phone: [facility] 02-27-2023 10:34-0500 Respiratory rate 24 /min Dr. Samson Hogan Work Phone: 0(492)629-376355 [place] [address] 02-27-2023 07:35-0500 Inhaled oxygen flow rate 8 L/min Dr. Samson Hogan Work Phone: 7(299)445-779602 [place] [address] 02-27-2023 07:35-0500 SaO2% (BldA) [Mass fraction] 92 % Dr. Samson Hogan Work Phone: 7(843)245-289655 [place] [address] 02-27-2023 06:06-0500 Body temperature 97.7 [degF] Dr. Samson Hogan Work Phone: 0(816)208-069150 [address] 02-27-2023 06:06-0500 Diastolic blood pressure 72 mm[Hg] Dr. Samson Hogan Work Phone: 7(776)923-054455 [place] [address] 02-27-2023 06:06-0500 Systolic blood pressure 155 mm[Hg] Dr. Samson Hogan Work Phone: 0(524)700-229755 [place] [address] 02-27-2023 03:19-0500 Body mass index (BMI) [Ratio] 54.3 kg/m2 Dr. Samson Hogan Work Phone: 6(200)897-354155 [place] [address] 02-27-2023 03:19-0500 Body weight 147.[address] Samson Hogan Work Phone: 2(614)139-010955 [place] [address] 02-25-2023 20:53-0500 Body height 165.[address] Samson Hogan Work Phone: 6(692)871-591455 [place] [address] 02-25-2023 18:03-0500 Inhaled oxygen flow rate 5 L/min Dr. Samson Hogan Work Phone: 3(350)097-232955 [place] [address] 02-25-2023 18:03-0500 SaO2% (BldA) [Mass fraction] 89 % Dr. Samson Hogan Work Phone: 0(490)989-706755 [place] [address] 02-25-2023 18:00-0500 Heart rate 87 /min Dr. Samson Hogan Work Phone: 2(837)845-497502 [place] [address] 02-25-2023 18:00-0500 Respiratory rate 25 /min Dr. Samson Hogan Work Phone: 7(517)071-508102 [place] [address] 02-25-2023 17:48-0500 Diastolic blood pressure 62 mm[Hg] Dr. Samson Hogan Work Phone: 9(284)420-780702 [place] [address] 02-25-2023 17:48-0500 Systolic blood pressure 171 mm[Hg] Dr. Samson Hogan Work Phone: 2(298)484-621602 [place] [address] 02-25-2023 15:28-0500 Body temperature 97.9 [degF] Dr. Samson Hogan Work Phone: 4(373)969-057802 [place] [address] 02-25-2023 15:19-0500 Body height 165.[address] Samson Hogan Work Phone: 2(348)735-563202 [place] [address] 02-25-2023 15:19-0500 Body mass index (BMI) [Ratio] 55.4 kg/m2 Dr. Samson Hogan Work Phone: 9(668)455-671302 [place] [address] 02-25-2023 15:19-0500 Body weight 151.[address] Samson Hogan Work Phone: 5(840)893-754255 [place] [address] 11-26-2022 09:38-0400 Body weight 144.7 kg NA Rizzo PA-C Work Phone: [facility] 11-26-2022 09:38-0400 Diastolic blood pressure 74 mm[Hg] NA Rizzo PA-C Work Phone: [facility] 11-26-2022 09:38-0400 Heart rate 71 /min NA Rizzo PA-C Work Phone: [facility] 11-26-2022 09:38-0400 Respiratory rate 16 /min NA Rizzo PA-C Work Phone: [facility] 11-26-2022 09:38-0400 SaO2% (BldA) [Mass fraction] 92 % NA Rizzo PA-C Work Phone: [facility] 11-26-2022 09:38-0400 Systolic blood pressure 130 mm[Hg] NA Rizzo PA-C Work Phone: [facility] 07-23-2022 09:30-0400 Body temperature 97.9 [degF] Maryann Benjamin FRONTLOAD DRIVER.[employer] ARCHITECT Work Phone: [facility] 07-23-2022 09:30-0400 Diastolic blood pressure 78 mm[Hg] Maryann Benjamin FRONTLOAD DRIVER.[employer] ARCHITECT Work Phone: [facility] 07-23-2022 09:30-0400 Heart rate 80 /min Maryann Benjamin FRONTLOAD DRIVER.[employer] ARCHITECT Work Phone: [facility] 07-23-2022 09:30-0400 Respiratory rate 18 /min Maryann Benjamin FRONTLOAD DRIVER.[employer] ARCHITECT Work Phone: [facility] 07-23-2022 09:30-0400 SaO2% (BldA) [Mass fraction] 98 % Maryann Benjamin FRONTLOAD DRIVER.[employer] ARCHITECT Work Phone: [facility] 07-23-2022 09:30-0400 Systolic blood pressure 132 mm[Hg] Maryann Benjamin FRONTLOAD DRIVER.[employer] ARCHITECT Work Phone: [facility] Encounters Encounter Date Encounter Type Care Provider Facility Start: 10-04-2024 End: 10-04-2024 Refill No Pcp (Hist) [facility] Comment on above: Refill Request Start: 09-11-2024 End: 09-11-2024 Refill Samson Hogan MD Work Phone: [facility] Comment on above: Refill Request Start: 08-28-2024 End: 08-28-2024 Telephone encounter Lu Greene FRONTLOAD DRIVER.[employer] B[employer] ARCHITECT Work Phone: [facility] Start: 08-20-2024 End: 08-20-2024 Refill Samson Hogan MD Work Phone: [facility] Comment on above: Refill Request Start: 08-08-2024 End: 08-08-2024 Office outpatient visit 25 minutes Lu Greene APRN.CNP Work Phone: [facility] Comment on above: Essential hypertensi on (Primary Dx); Type 2 diabetes mellitus without complication, with long-term current use of insulin (HCC); Generalized anxiety disorder; Major depressive disorder, recurrent, in partial remission; Encounter for immunization Start: 08-08-2024 End: 08-08-2024 ambulatory SAMSON SAMIRA Facility:[facility] Start: 08-07-2024 End: 08-08-2024 Refill Samson Hogan MD Work Phone: [facility] Comment on above: Refill Request Start: 08-06-2024 End: 10-06-2024 Follow-up encounter Lu Greene APRN.CNP Work Phone: [facility] Start: 08-06-2024 End: 08-06-2024 ambulatory SAMSON HOGAN Facility:[facility] Start: 08-06-2024 End: 08-06-2024 Subsequent hospital visit by physician [facility] (I-Stat) Work Phone: [facility] Comment on above: Lung nodules [R91.8] Start: 07-31-2024 End: 08-02-2024 Refill Samson Hogan MD Work Phone: [facility] Comment on above: Refill Request Start: 07-28-2024 End: 07-28-2024 Telephone encounter Samson Hogan MD Work Phone: [facility] Comment on above: Letter Start: 07-13-2024 End: 07-13-2024 Refill Samson Hogan MD Work Phone: [facility] Comment on above: Refill Request Insurance Authorizat ion Start: 07-02-2024 End: 07-10-2024 Telephone encounter Samson Hogan MD Work Phone: [facility] Comment on above: Appointment Start: 06-25-2024 End: 06-26-2024 Telephone encounter Samson Hogan MD Work Phone: [facility] Comment on above: Forms ([employer]) Start: 06-15-2024 End: 06-15-2024 Refill Samson Hogan MD Work Phone: [facility] Comment on above: Refill Request Start: 06-08-2024 End: 08-08-2024 Follow-up encounter Lu Greene APRN.[employer] B[employer] ARCHITECT Work Phone: [facility] Start: 06-06-2024 End: 06-06-2024 ambulatory [facility] Facility:[facility] Start: 06-06-2024 End: 06-06-2024 Office outpatient visit 40 minutes Lu Greene APRN.CNP Work Phone: [facility] Comment on above: Encounter for gyneco logical examination without abnormal finding (Primary Dx); Essential hypertension; Type 2 diabetes mellitus without complication, with long-term current use of insulin (HCC); Anxiety; Hypertension, essential; Mixed hyperlipidemia; Gastroesophageal reflux disease, unspecified whether esophagitis present; Venous insufficiency; Encounter for immunization; Visit for screening mammogram; Chronic obstructive pulmonary disease, unspecified COPD type ([facility]) Start: 06-06-2024 End: 06-06-2024 Patient encounter status Lu Greene APRN.[employer] ARCHIT[employer] Work Phone: [facility] Start: 06-06-2024 End: 06-06-2024 ambulatory [facility] Facility:[facility] Start: 06-06-2024 Encounter for gynecological examination (general) (routine) without abnormal findings LU GREENE [facility] Start: 06-05-2024 End: 06-05-2024 Telephone encounter Samson Hogan MD Work Phone: [facility] Comment on above: Medication Problem Start: 05-30-2024 End: 05-30-2024 ambulatory [facility] Work Phone: [facility] Comment on above: Spirometry Start: 05-30-2024 End: 05-30-2024 Patient encounter procedure [facility] Work Phone: [facility] Comment on above: Chronic obstructive pulmonary disease, unspecified COPD type (HCC) (Primary Dx); Lung nodules; Obstructive sleep apnea syndrome; Cigarette smoker; Morbid obesity (HCC) Start: 05-25-2024 End: 05-25-2024 Telephone encounter Lu Greene APRN.[employer] ARCHIT[employer] Work Phone: [facility] Comment on above: FYI-No Action Needed Start: 05-15-2024 End: 05-15-2024 Refill Lu Greene FRONTLOAD DRIVER.[employer] ARCHITECT Work Phone: [facility] Comment on above: Refill Request Start: 05-09-2024 End: 05-10-2024 Telephone encounter Lu Greene APRN.[employer] ARCHIT[employer] Work Phone: [facility] Comment on above: Insurance Authorizat ion Start: 05-04-2024 End: 05-04-2024 Refill Lu Greene FRONTLOAD DRIVER.[employer] ARCHITECT Work Phone: [facility] Comment on above: Refill Request Start: 04-27-2024 End: 04-27-2024 Refill Lu Greene APRN.[employer] ARCHIT[employer] Work Phone: [address] [place] [address] Comment on above: Refill Request Start: 04-17-2024 End: 04-17-2024 Orders Only Rolf Yepez MD Work Phone: External[facility] Comment on above: Essential (primary) hypertension; Proteinuria, unspecified Start: 04-17-2024 End: 04-17-2024 Refill Lu Greene FRONTLOAD DRIVER.[employer] ARCHITECT Work Phone: [facility] Comment on above: Refill Request Start: 03-22-2024 End: 03-22-2024 Refill Rodriguez Rizzo PA-C [facility] Comment on above: Refill Request Start: 03-05-2024 End: 03-05-2024 Refill Rodriguez Rizzo PA-C [facility] Comment on above: Refill Request Start: 02-21-2024 End: 02-21-2024 Refill Rodriguez Hernandez Matthias PA-C [facility] Comment on above: Refill Request Start: 01-03-2024 End: 01-03-2024 Refill Samson Hogan MD Work Phone: [facility] Comment on above: Refill Request Start: 10-26-2023 End: 10-26-2023 Refill Jovany Rizzo PA-C Work Phone: [facility] Comment on above: Refill Request Start: 10-10-2023 End: 10-10-2023 Refill Jovany Rizzo PA-C Work Phone: [facility] Comment on above: Refill Request Start: 10-07-2023 End: 10-07-2023 Refill Jovany Rizzo PA-C Work Phone: [facility] Comment on above: Refill Request Start: 09-21-2023 Telephone encounter Jovany Rizzo PA-C Work Phone: [facility] Comment on above: medication insulin p roblem Start: 09-19-2023 Refill Jovany Julian on PA-C Work Phone: [facility] Comment on above: Refill Request Start: 09-09-2023 Refill Jovany Julian on PA-C Work Phone: [facility] Comment on above: Refill Request Start: 09-08-2023 Refill Jovany Julian on PA-C Work Phone: [facility] Comment on above: Refill Request Start: 09-04-2023 End: 09-04-2023 Emergency department patient visit [facility] Facility:[facility] Start: 09-02-2023 Refill Jovany Julian on PA-C Work Phone: [facility] Comment on above: Refill Request Start: 08-12-2023 Telephone encounter Jovany Rizzo PA-C Work Phone: [facility] Comment on above: Patient Question Patient Update; FYI- No Action Needed Start: 08-11-2023 End: 08-11-2023 ambulatory Pilar Cardoza PA-C Work Phone: [facility] Comment on above: Chronic obstructive pulmonary disease, unspecified COPD type (HCC) (Primary Dx); Lung nodules; Cigarette smoker; Morbid obesity (HCC) Start: 08-11-2023 End: 08-11-2023 Telemedicine consultation with patient Pilar Cardoza PA-C Work Phone: Pulmonary Medicine Start: 08-10-2023 Refill Jovany Julian on PA-C Work Phone: [facility] [place] Comment on above: Refill Request Start: 08-08-2023 Refill Jovany Julian on PA-C Work Phone: [facility] [place] Comment on above: Refill Request Start: 08-01-2023 Telephone encounter Samson Hogan MD Work Phone: [facility] [place] Comment on above: re-fax letter Start: 07-19-2023 Refill Jovany Julian on PA-C Work Phone: [facility] [place] Comment on above: Refill Request Start: 07-18-2023 Telephone encounter Jovany Rizzo PA-C Work Phone: [facility] [place] Comment on above: Orders Start: 07-14-2023 Telephone encounter Samson Hogan MD Work Phone: Pulmonology [facility] Comment on above: Results Refill Request Start: 07-13-2023 Telephone encounter Jovany Rizzo PA-C Work Phone: [facility] [place] Comment on above: Letter Start: 07-05-2023 Telephone encounter Jovany Rizzo PA-C Work Phone: [facility] [place] Comment on above: Patient Question Start: 07-01-2023 End: 07-01-2023 Emergency department patient visit Samson Hogan Facility:[facility] Start: 06-23-2023 Telephone encounter Jovany Rizzo PA-C Work Phone: [facility] [place] Comment on above: Insurance Authorizat ion Start: 06-20-2023 Telephone encounter Jovany David Rizzo PA-C Work Phone: [facility] [place] Comment on above: Insurance Authorizat ion (Tresiba flextouch) Orders Start: 06-15-2023 Telephone encounter Jovany Hernandez Matthias DUVAL Work Phone: [facility] Comment on above: Results Start: 06-14-2023 Telephone encounter Jovany David Rizzo PA-C Work Phone: [facility] [place] Comment on above: Results (High micro albumin) Start: 06-09-2023 End: 06-09-2023 Subsequent hospital visit by physician [facility] (I-Stat) Work Phone: Cat Scan Comment on above: Lung nodules [R91.8] Start: 06-09-2023 End: 06-09-2023 Patient encounter procedure Jovany David Rizzo PA-C Work Phone: [facility] [place] Comment on above: Hypertension, essent ial (Primary Dx); Mixed diabetic hyperlipidemia 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) (HCC); PVD (peripheral vascular disease) (HCC); Chronic hypoxemic respiratory failure (HCC); COPD with chronic bronchitis (HCC); Obstructive sleep apnea syndrome; Lung nodules; Screening for diabetic retinopathy; Screening for colon cancer; Type 2 diabetes mellitus with stage 3b chronic kidney disease, with long-term current use of insulin (HCC); Chronic depression; NANCY (generalized anxiety disorder); Panic disorder; Polycythemia secondary to smoking; Irritable bowel syndrome with both constipation and diarrhea; Type 2 diabetes mellitus without complication, with long-term current use of insulin (HCC); Depression, unspecified depression type; Encounter for immunization; Screening for cervical cancer; Encounter for screening mammogram for malignant neoplasm of breast; Wellness examination Start: 06-09-2023 End: 06-09-2023 Patient encounter status Jovany David Rizzo PA-C Work Phone: [facility] Start: 06-06-2023 Refill Jovany David monroy PA-C Work Phone: [facility] [place] Comment on above: Refill Request Release Of Medical R ecords Start: 05-30-2023 Telephone encounter Patti Knox MD Work Phone: Endocrinology Comment on above: Appointment Start: 05-20-2023 Refill Jovany Julian on PA-C Work Phone: [facility] Comment on above: Refill Request Start: 05-18-2023 Telephone encounter Patti Knox MD Work Phone: Pulmonary Medicine Comment on above: Orders (Due for ches t CT) Start: 05-13-2023 Refill Jovany Julian on PA-C Work Phone: [facility] Comment on above: Refill Request Start: 04-20-2023 Refill Jovany Julian on PA-C Work Phone: [facility] [place] Comment on above: Refill Request Start: 03-25-2023 Refill Jovany Julian on PA-C Work Phone: [facility] [place] Comment on above: Refill Request Start: 02-27-2023 Non-patient / Non-visit Dr. New Hogan Work Phone: [facility] Work Phone: Start: 02-26-2023 Non-patient / Non-visit Dr. New Hogan Work Phone: [facility] Work Phone: Start: 02-25-2023 End: 02-27-2023 Evaluation and management of inpatient [facility] Work Phone: Start: 02-25-2023 Non-patient / Non-visit Dr. New Hogan Work Phone: [facility] Work Phone: Start: 02-25-2023 ambulatory [facility] Facility :[facility] Start: 01-28-2023 Refill Jovany Julian on PA-C Work Phone: [facility] Comment on above: Refill Request Start: 01-17-2023 Refill Jovany Julian on PA-C Work Phone: [facility] Comment on above: Refill Request Start: 12-27-2022 Refill Jovany Julian on PA-C Work Phone: [facility] Comment on above: Refill Request Start: 11-27-2022 Telephone encounter Jovany Rizzo PA-C Work Phone: [facility] Start: 11-26-2022 End: 11-26-2022 Patient encounter procedure Jovany Rizzo PA-C Work Phone: [facility] [place] Comment on above: Essential hypertensi on (Primary Dx); Mixed hyperlipidemia; PVD (peripheral vascular disease) (HCC); Lung nodules; Chronic hypoxemic respiratory failure (HCC); Chronic obstructive pulmonary disease, unspecified COPD type (HCC); Obstructive sleep apnea syndrome; Tobacco dependence; Type 2 diabetes mellitus without complication, with long-term current use of insulin (HCC); Microalbuminuria; Depression, unspecified depression type; Anxiety; Panic disorder; Polycythemia; Irritable bowel syndrome, unspecified type; Dry skin; Encounter for immunization; Paronychia of finger of left hand Start: 11-22-2022 End: 11-22-2022 Subsequent hospital visit by physician [facility] Work Phone: Radiology Comment on above: Thyroid nodule [E04. 1] Start: 11-05-2022 Refill Jovany Julian on PA-C Work Phone: [facility] Comment on above: Refill Request Start: 10-12-2022 Refill Jovany Julian on PA-C Work Phone: [facility] [place] Comment on above: Refill Request Start: 10-06-2022 Telephone encounter Samson Hogan MD Work Phone: [facility] Comment on above: Patient Question Start: 10-01-2022 Refill Jovany Julian on PA-C Work Phone: [facility] [place] Comment on above: Refill Request Start: 09-14-2022 Refill Jovany Julian on PA-C Work Phone: [facility] [place] Comment on above: Refill Request Start: 08-13-2022 Refill Jovany Julian on PA-C Work Phone: [facility] Comment on above: Refill Request Start: 08-11-2022 Telephone encounter Jovany Julianon PA-C Work Phone: [facility] Comment on above: Refill Request Start: 08-05-2022 Refill Jovany Julian on PA-C Work Phone: [facility] Start: 07-29-2022 Telephone encounter Samson Hogan MD Work Phone: [facility] Comment on above: Patient Question; Me dication Request Start: 07-23-2022 End: 07-23-2022 Patient encounter procedure Maryann Alexander FRONTLOAD DRIVER.[employer] BPM ARCHITECT Work Phone: [facility] Comment on above: Redness of skin (Ena mariel Dx); Bilateral elbow joint pain Start: 07-22-2022 Telephone encounter Samson Hogan MD Work Phone: [facility] Comment on above: Appointment Start: 07-21-2022 ambulatory Samson Hogan MD Work Phone: [facility] Comment on above: Blood sugar levels Start: 07-07-2022 ambulatory Jovany Julian on PA-C Work Phone: [facility] [place] Start: 06-29-2022 Refill Jovany Julian on PA-C Work Phone: [facility] Comment on above: Refill Request Start: 06-25-2022 Refill Jovany Julian on PA-C Work Phone: [facility] [place] Comment on above: Refill Request; Refi ll Request Start: 06-11-2022 ambulatory Jovany Julian on PA-C Work Phone: [facility] Comment on above: Insulin Start: 05-27-2022 Refill Jovany Julian on PA-C Work Phone: [facility] Comment on above: Refill Request Start: 05-26-2022 Telephone encounter Jovany Rizzo PA-C Work Phone: [facility] [place] Comment on above: Medication Request ( PAIN) Start: 05-25-2022 Telephone encounter Jovany Rizzo PA-C Work Phone: [facility] [place] Comment on above: low blood sugar read ings Start: 05-24-2022 Telephone encounter Jovany Rizzo PA-C Work Phone: [facility] [place] Comment on above: Low BS readings Start: 05-21-2022 End: 05-21-2022 Distance Health Jovany Rizzo PA-C Work Phone: [facility] [place] Comment on above: Essential hypertensi on (Primary Dx); Mixed hyperlipidemia; PVD (peripheral vascular disease) (HCC); Chronic hypoxemic respiratory failure (HCC); Type 2 diabetes mellitus without complication, with long-term current use of insulin (HCC); Albuminuria; Depression, unspecified depression type; Anxiety; Panic disorder; Polycythemia; Kidney stone after visit Start: 05-17-2022 Orders Only Patti Knox MD Work Phone: Pulmonary Medicine Comment on above: Ground glass opacity present on imaging of lung (Primary Dx); Lung nodules Start: 05-13-2022 End: 05-13-2022 Subsequent hospital visit by physician [facility] (I-Stat) Work Phone: Cat Scan Comment on above: Lung nodules [R91.8] Start: 04-29-2022 Refill Jovany Julian on PA-C Work Phone: [facility] [place] Comment on above: Refill Request Start: 04-15-2022 Refill Jovany Julian on PA-C Work Phone: [facility] [place] Comment on above: Refill Request Start: 03-22-2022 Telephone encounter Jovany Rizzo PA-C Work Phone: [facility] [place] Comment on above: Lab Orders Start: 03-05-2022 Telephone encounter Patti Knox MD Work Phone: Pulmonary Medicine Comment on above: Appointment (Patient called to make sure we have the right number for virtual visit) Start: 03-03-2022 Refill Jovany Julian on PA-C Work Phone: [facility] Comment on above: Refill Request Start: 02-02-2022 Refill Jovany Julian on PA-C Work Phone: [facility] Comment on above: Refill Request Start: 01-05-2022 Refill Jovany Julian on PA-C Work Phone: [facility] Comment on above: Refill Request Start: 12-11-2021 Refill Jovany Julian on PA-C Work Phone: [facility] Comment on above: Refill Request Start: 12-10-2021 Refill Jovany Julian on PA-C Work Phone: [facility] Comment on above: Refill Request Start: 11-11-2021 Refill Jovany Julian on PA-C Work Phone: [facility] Comment on above: Refill Request Start: 10-25-2021 ambulatory Jovany Julian on PA-C [facility] Comment on above: MRI Start: 10-25-2021 E-mail encounter fro m caregiver Jovany Rizzo PA-C Work Phone: [facility] [place] Start: 10-25-2021 Telephone encounter Jovany Rizzo PA-C Work Phone: [facility] Comment on above: Patient Update; Orde rs (Consult/) Start: 10-18-2021 Nurse Triage Mariel Love RN NURSE [employer]ER Comment on above: Refill Request Start: 10-16-2021 ambulatory Jovany Julian on PA-C Work Phone: [facility] Comment on above: Rajesh Rizzo, Start: 10-16-2021 Telephone encounter Jovany Rizzo PA-C Work Phone[facility] Comment on above: Results Start: 10-14-2021 Telephone encounter Jovany Rizzo PA-C Work Phone: [facility] [place] Comment on above: Patient Update Start: 10-09-2021 Telephone encounter Jovany Rizzo PA-C Work Phone: [facility] [place] Comment on above: Fax Results once com pleted patient needs copy clarisse STOCK faxed Start: 10-02-2021 Telephone encounter Juarez Magaña Desiree daniels DO Work Phone: Radiology Comment on above: Patient Question Start: 09-24-2021 End: 09-24-2021 Distance Health Jovany Rizzo PA-C Work Phone: [facility] [place] Comment on above: Primary hypertension (Primary Dx); Mixed hyperlipidemia; PVD (peripheral vascular disease) (HCC); Chronic hypoxemic respiratory failure (HCC); Chronic obstructive pulmonary disease, unspecified COPD type (HCC); Obstructive sleep apnea syndrome; Depression, unspecified depression type; Lung nodules; Anxiety; Panic disorder; Type 2 diabetes mellitus without complication, with long-term current use of insulin (HCC); Polycythemia; Irritable bowel syndrome, unspecified type; Dry skin; Low libido; Screening for cervical cancer Start: 09-17-2021 Refill Jovany Julian on PA-C Work Phone: [facility] [place] Comment on above: Refill Request Start: 09-07-2021 Refill Jovany Julian on PA-C Work Phone: [facility] Comment on above: Refill Request Start: 09-02-2021 Telephone encounter Samson Hogan MD Work Phone: [facility] [place] Comment on above: Orders Start: 08-28-2021 Telephone encounter Jovany Rizzo PA-C Work Phone: [facility] [place] Comment on above: Medication Problem Start: 08-06-2021 Telephone encounter Jovany Rizzo PA-C Work Phone: [facility] [place] Comment on above: Insurance Authorizat ion Start: 08-05-2021 Refill Jovany Julian on PA-C Work Phone: [facility] [place] Comment on above: Refill Request Start: 07-22-2021 Telephone encounter Jovany Rizzo SIMIN Work Phone: [facility] Comment on above: Medication Request Start: 07-14-2021 Telephone encounter Mat Davidson RPh Work Phone: [facility] Comment on above: Appointment Start: 07-10-2021 End: 07-10-2021 ambulatory Jovany Rizzo SIMIN Work Phone: [facility] [place] Comment on above: Acute maxillary sinu sitis, recurrence not specified (Primary Dx) Start: 07-10-2021 End: 07-10-2021 Telemedicine consultation with patient Jovany Rizzo SIMIN Work Phone: [facility] [place] Start: 06-23-2021 End: 06-23-2021 ambulatory Mat Davidson [facility] Work Phone: [facility] Comment on above: Type 2 diabetes sujata itus without complication, with long-term current use of insulin (HCC) (Primary Dx) Start: 06-23-2021 End: 06-23-2021 Telemedicine consultation with patient Mat Davidson RP Work Phone: [facility] [place] Start: 06-23-2021 Telephone encounter Samson Hogan MD Work Phone: [facility] [place] Comment on above: Patient Question Start: 06-18-2021 Telephone encounter Samson Hogan MD Work Phone: [facility] [place] Comment on above: Results Start: 06-10-2021 Telephone encounter Samson Hogan MD Work Phone: [facility] [place] Comment on above: Orders Start: 06-02-2021 End: 06-02-2021 ambulatory Mat Davidson [facility] Work Phone: [facility] Comment on above: Type 2 diabetes sujata itus without complication, with long-term current use of insulin (HCC) (Primary Dx) Start: 06-02-2021 End: 06-02-2021 Telemedicine consultation with patient Mat Davidson RPh Work Phone: [facility] [place] Start: 06-01-2021 Telephone encounter Samson Hogan MD Work Phone: Family [facility] Comment on above: SPP Cardiology/vascu lar - Treatment Referral Start: 05-29-2021 Telephone encounter Leeroy Jacobs MD Work Phone: [facility] Comment on above: Orders Refill Request Start: 05-29-2021 End: 05-29-2021 Subsequent hospital visit by physician M[facility] (I-Stat/1.5t) Work Phone: Radiology Comment on above: Liver mass [R16.0] Start: 04-30-2021 End: 04-30-2021 Subsequent hospital visit by physician Mri [facility] (I-Stat/1.5t) Work Phone: Radiology Comment on above: Canceled (Pt cx: Res cheduled) Start: 01-21-2020 End: 01-21-2020 Subsequent hospital visit by physician Xr [facility] [place] Work Phone: Radiology Comment on above: Kidney stone [N20.0] Procedures Date Procedure Procedure Detail Performing Clinician Start: 06-06-2024 PFIZER-BIONTECH COVI D-19 VACCINE AGE 12+ YR (COMIRNATY) Lu Greene APRN.CNP Work Phone: Start: 05-30-2024 Noninvasive ear/puls e oximetry multiple deter Pilar Cardoza PA-C Work Phone: Start: 05-30-2024 Spmtry w/vc expirato ry kyle w/wo mxml vol vntj Pilar Cardoza PA-C Work Phone: Start: 06-09-2023 PFIZER-BIONTECH COVI D-19 VACCINE () AGE 12+ YR M David Rizzo PA-C Work Phone: Start: 02-25-2023 Plain chest X-ray Dr. Toan Hogan Work Phone: Start: 02-25-2023 Investigation of transfusion reaction Dr. Samson Hogan Work Phone: Start: 02-25-2023 Legionella pneumophi la antigen assay Dr. Samson Hogan Work Phone: Start: 02-25-2023 SARS-CoV-2, Influenz a & RSV (PCR) Dr. Samson Hogan Work Phone: Start: 02-25-2023 Streptococcus pneumo niae Antigen (M Dr. Samson Hogan Work Phone: Start: 11-22-2022 Us soft tissue head & neck real time imge docm M David Rizzo PA-C Work Phone: Start: 05-13-2022 Ct thorax w/o contra st material Patti Knox MD Work Phone: Start: 01-21-2020 Radiologic exam abdo men 1 view Doron Reynolds MD Work Phone: Start: 03-31-2017 Mammography Leeroy bañuelos MD Work Phone: Plan of Treatment Date Care Activity Detail Author Start: 11-08-2026 Screening for malignant neoplasm of colon [facility] Start: 08-08-2025 Annual PCP Team Chronic Disease Visit Annual PCP Team Chronic Disease Visit [facility] Start: 08-06-2025 Screening for malignant neoplasm of lung Lung Cancer Screening [facility] Start: 06-06-2025 Annual PCP Team Chronic Disease Visit Annual PCP Team Chronic Disease Visit [facility] Start: 06-06-2025 Diabetic foot examination Diabetic Foot Exam [facility] Start: 06-06-2025 Hepatitis B surface antibody level LDL Cholesterol [facility] Start: 05-30-2025 Hepatitis B screening Urine Albumin:Creatinine Ratio [facility] Start: 12-06-2024 Hemoglobin A1c measurement HbA1C [facility] Start: 11-28-2024 End: 11-28-2024 Patient encounter procedure Pulmonary Medicine Comment on above: 6 month f/u Start: 10-15-2024 Influenza vaccination [facility] Start: 09-10-2024 End: 09-10-2024 Patient encounter procedure 09/10/2024 10:20 AM EDT Office Visit [facility] [place] [address] [place] [address] Lu Greene, FRONTLOAD DRIVER.[employer] BPM ARCHITECT [address] [place] [address] 1 month fu - 40 minutes per [facility] [place] Comment on above: 1 month fu - 40 minutes per [facility] Start: 09-03-2024 End: 09-03-2024 Patient encounter procedure Mammogram Comment on above: Visit for screening mammogram [Z12.31] annual Start: 08-29-2024 End: 08-29-2024 Patient encounter procedure Vasculary Surgery Comment on above: Venous insufficiency [I87.2] Start: 08-08-2024 End: 08-08-2024 Patient encounter procedure 08/08/2024 10:40 AM EDT Office Visit [facility] [address] [place] [address] Lu Greene APRN.[employer] BPM ARCHITECT [address] [facility] [place] [address] BP follow up [facility] Comment on above: BP follow up Start: 08-06-2024 End: 08-06-2024 Patient encounter procedure 08/06/2024 11:40 AM EDT Appointment Cat Scan [address] [place] [address] Lung nodules [R91.8] Cat Scan Comment on above: Lung nodules [R91.8] Start: 07-31-2024 End: 07-31-2024 Patient encounter procedure 07/31/2024 11:40 AM EDT Appointment Cat Scan [address] [place] [address] Lung nodules [R91.8] Cat Scan Comment on above: Lung nodules [R91.8] Start: 07-28-2024 End: 07-28-2024 Patient encounter procedure 07/28/2024 11:20 AM EDT Office Visit [facility] [address] [facility] [place] [address] Samson Hogan MD [address] [facility] [place] [address] 1 month follow up - 40 minutes per [facility] Comment on above: 1 month follow up - 40 minutes per [facility] Start: 07-20-2024 End: 07-20-2024 Patient encounter procedure Vasculary Surgery Comment on above: Venous insufficiency [I87.2] Start: 07-20-2024 End: 07-20-2024 Patient encounter procedure Mammogram Comment on above: Visit for screening mammogram [Z12.31] Encounter for gyneco logical examination without abnormal finding [Z01.419] Start: 07-17-2024 End: 07-17-2024 Patient encounter procedure 07/17/2024 11:00 AM EDT Office Visit [facility] [place] [address] [place] [address] Lu Greene APRN.[employer] BPM ARCHITECT [address] [place] [address] 4 week Follow up BP; Trulicity Follow up; 40 minutes per [facility] [place] Comment on above: 4 week Follow up BP; Trulicity Follow up ; 40 minutes per [facility] Start: 06-29-2024 End: 06-29-2024 Patient encounter procedure 06/29/2024 10:20 AM EDT Office Visit [facility] [place] [address] [place] [address] Samson Hogan MD [address] [place] [address] 4 week Follow up BP; Trulicity Follow up; 40 minutes per [facility] [place] Comment on above: 4 week Follow up BP; Trulicity Follow up ; 40 minutes per [facility] Start: 06-14-2024 End: 06-14-2024 Patient encounter procedure 06/14/2024 10:20 AM EDT Appointment Cat Scan [address] [place] [address] Lung nodules [R91.8] Cat Scan Comment on above: Lung nodules [R91.8] Start: 06-13-2024 End: 06-29-2025 CT Chest WO contrast CT CHEST WO IVCON Radiology Routine Lung nodules Expected: 06/13/2024, Expires: 06/29/2025 [facility] Work Phone: Comment on above: Expected: 06/13/2024, Expires: Start: 06-08-2024 Annual PCP Team Chronic Disease Visit Annual PCP Team Chronic Disease Visit [facility] Start: 06-08-2024 Diabetic foot examination Diabetic Foot Exam [facility] Start: 06-08-2024 Hepatitis B screening Urine Albumin:Creatinine Ratio [facility] Start: 06-08-2024 Hepatitis B surface antibody level LDL Cholesterol [facility] Start: 06-08-2024 HIV screening HIV Screening [facility] Comment on above: Postponed from 1984 (Declined at t his time) Start: 06-08-2024 Screening for malignant neoplasm of lung Lung Cancer Screening [facility] Start: 06-06-2024 End: 06-06-2024 Patient encounter procedure 06/06/2024 9:20 AM EDT Office Visit [facility] [place] [address] [place], [place] [id number] Lu Greene APRN.[employer] BPM ARCHITECT [address] [place] [address] (PUMA from [facility]) Medication Renewal [facility] 06/09/23 [facility] [place] Comment on above: (PUMA from [facility]) Medication Renewal [facility] Start: 05-30-2024 End: 05-30-2024 Patient encounter procedure [facility] [place] Comment on above: MEDICATION ([facility] 06/09/23)MEDICAT ION Start: 05-30-2024 End: 05-30-2024 Patient encounter procedure 05/30/2024 9:30 AM EDT Office Visit Pulmonary Medicine [address] [place] [address] Pilar Cardoza PALucreciaC [address] [place] [address] COPD Pulmonary Medicine Comment on above: COPD Start: 05-30-2024 End: 05-30-2024 ambulatory PULM LAB [facility] Comment on above: PFT Start: 05-17-2024 Basic metabolic 2000 panel - Serum or Plasma BASIC METABOLIC PANEL Lab Routine Essential (primary) hypertension Expected: 05/17/2024 [facility] Work Phone: Comment on above: Expected: 05/17/2024 Start: 05-17-2024 Microalbumin/Creatinine [Mass Ratio] in Urine ALBUMIN/CREATININE RATIO, URINE Lab Routine Proteinuria, unspecified Expected: 05/17/2024 [facility] Comment on above: Expected: 05/17/2024 Start: 04-11-2024 End: 04-11-2024 Patient encounter procedure 04/11/2024 9:00 AM EST Office Visit Pulmonary Medicine [address] [place] [address] Pilar Cardoza, PA-C [address] [place] [address] 5 month f/u Pulmonary Medicine Comment on above: 5 month f/u Start: 04-11-2024 End: 04-11-2024 ambulatory [facility] Comment on above: Chronic obstructive pulmonary disease, u nspecified COPD type (HCC) [J44.9] Start: 03-14-2024 End: 03-14-2024 Patient encounter procedure 03/14/2024 10:30 AM EST Office Visit Pulmonary Medicine [address] [place] [address] Pilar Cardoza, PA-C [address] [place] [address] 5 month f/u Pulmonary Medicine Comment on above: 5 month f/u Start: 03-14-2024 End: 03-14-2024 ambulatory PULM LAB [facility] Comment on above: Chronic obstructive pulmonary disease, u nspecified COPD type (HCC) [J44.9] Start: 03-06-2024 End: 03-06-2024 Patient encounter procedure 03/06/2024 9:40 AM EST Office Visit Family Medicine [facility] [address] [facility] [place] [address] Mary Morales APRN.[employer] B[employer] ARCHITECT [address] [place] [address] med refills Family Medicine Arlene Comment on above: med refills Start: 01-13-2024 Hemoglobin A1c measurement HbA1C [facility] Start: 01-09-2024 End: 01-09-2024 Patient encounter procedure 01/09/2024 9:00 AM EST Office Visit Family Medicine [facility] [address] [place] [address] Mary Morales APRN.[employer] B[employer] ARCHITECT [address] [place] [id number] est care / med check / follow up Family Medicine Arlene Comment on above: est care / med check / follow up Start: 12-21-2023 End: 12-21-2023 Patient encounter procedure 12/21/2023 10:30 AM EST Office Visit Pulmonary Medicine [address] [place], [place] [id number] Pilar Cardoza PA-C [address] [place] [id number] 5 month f/u Pulmonary Medicine Comment on above: 5 month f/u Start: 12-21-2023 End: 12-21-2023 ambulatory [facility]UL[facility] Comment on above: Chronic obstructive pulmonary disease, u nspecified COPD type (HCC) [J44.9] Start: 12-12-2023 End: 12-12-2023 Patient encounter procedure Family Rita Jacobs Comment on above: 6 month follow up Start: 11-27-2023 Annual PCP Team Chronic Disease Visit Annual PCP Team Chronic Disease Visit [facility] Start: 11-27-2023 Hepatitis B Vaccine (1 of 3 - 19+ 3-dose series) Hepatitis B Vaccine (1 of 3 - 19+ 3-dose series) [facility] Comment on above: Postponed from 1985 (Declined at t his time) Start: 11-27-2023 Hepatitis B Vaccine (1 of 3 - 3-dose series) Hepatitis B Vaccine (1 of 3 - 3-dose series) [facility] Comment on above: Postponed from 1966 (Declined at t his time) Start: 11-27-2023 Pneumococcal vaccination [facility] Comment on above: Postponed from 02/03/2017 (Declined at t his time) Start: 11-27-2023 Shingrix Vaccine (1 of 2) Shingrix Vaccine (1 of 2) [facility] Comment on above: Postponed from 2016 (Declined at t his time) Start: 10-16-2023 Covid-19 Vaccine ( season) Covid-19 Vaccine () [facility] Start: 10-16-2023 Influenza vaccination [facility] Start: 10-08-2023 COLOGUARD (FIT-DNA) COLOGUARD (FIT-DNA) [facility] Start: 10-08-2023 COLORECTAL CANCER SCREENING COLORECTAL CANCER SCREENING [facility] Start: 10-08-2023 Screening for malignant neoplasm of colon [facility] Start: 08-14-2023 End: 11-13-2023 Hemoglobin A1c in Blood HGB A1C Lab Routine Type 2 diabetes mellitus without complication, with long-term current use of insulin (HCC) Expected: 08/14/2023, Expires: 11/13/2023 [facility] Work Phone: Comment on above: Expected: 08/14/2023, Expires: Start: 08-11-2023 End: 08-11-2023 Follow-up encounter 08/11/2023 11:00 AM EDT [facility] Pulmonary Medicine [address] [place] [id number] Pilar Cardoza PA-C [address] [place], [place] [id number] FOLLOW UP Pulmonary Medicine Comment on above: FOLLOW UP Start: 08-10-2023 End: 08-10-2023 Follow-up encounter 08/10/2023 2:30 PM EDT [facility] Pulmonary Medicine [address] [place], [place] [phone] Pilar Cardoza PA-C [address] [place], [place] [id number] FOLLOW UP Pulmonary Medicine Comment on above: FOLLOW UP Start: 08-09-2023 End: 08-09-2023 Patient encounter procedure Mammogram Comment on above: Encounter for screening mammogram for ma lignant neoplasm of breast [Z12.31 Screening for cervic al cancer [Z12.4] Start: 07-26-2023 End: 07-26-2023 Patient encounter procedure 07/26/2023 9:00 AM EDT Office Visit [facility]hthalmology [address] [place] [address] Mecca Rose, OD [address] [place] [address] Screening for diabetic retinopathy [Z13.5] Ophthalmology Comment on above: Screening for diabetic retinopathy [Z13. 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 Expected: 06/17/2023, Expires: 09/16/2023 [facility] Work Phone: Comment on above: Expected: 06/17/2023, Expires: Start: 06-09-2023 End: 06-09-2023 Patient encounter procedure 06/09/2023 11:40 AM EDT Appointment Cat Scan [address] [place] [address] CT CHEST WO IVCON Cat Scan Comment on above: CT CHEST WO IVCON Start: 06-09-2023 End: 06-09-2023 Patient encounter procedure 06/09/2023 9:40 AM EDT Office Visit Family Medicine Arlene [address] [place] [address] Jovany Rizzo PA-C [address] [facility] [place] [address] follow up med refills Family Medicine Arlene Comment on above: follow up med refills Start: 05-22-2023 ANNUAL PCP TEAM CHRONIC DISEASE VISIT ANNUAL PCP TEAM CHRONIC DISEASE VISIT [facility] Start: 05-18-2023 End: 06-16-2024 CT Chest WO contrast CT CHEST WO IVCON Radiology Routine Lung nodules Ground glass opacity present on imaging of lung Expected: 05/18/2023, Expires: 06/16/2024 [facility] Work Phone: Comment on above: Expected: 05/18/2023, Expires: Start: 05-18-2023 End: 06-16-2023 Ct thorax w/o contrast material CT CHEST WO IVCON Radiology Routine Lung nodules Ground glass opacity present on imaging of lung Expected: 05/18/2023, Expires: 06/16/2023 [facility] Work Phone: Comment on above: Expected: 05/18/2023, Expires: 4 Start: 05-15-2023 End: 08-14-2023 ALBUMIN/CREAT RATIO RND UR ALBUMIN/CREAT RATIO RND UR Lab Routine Type 2 diabetes mellitus without complication, with long-term current use of insulin (HCC) Microalbuminuria Expected: 05/15/2023, Expires: 08/14/2023 [facility] Work Phone: Comment on above: Expected: 05/15/2023, Expires: 4 Start: 05-15-2023 End: 08-14-2023 Alpha 1 antitrypsin [Mass/volume] in Serum or Plasma [id number] Lab Routine Chronic obstructive pulmonary disease, unspecified COPD type (HCC) Expected: 05/15/2023, Expires: 08/14/2023 [facility] Work Phone: Comment on above: Expected: 05/15/2023, Expires: 4 Start: 05-15-2023 End: 08-14-2023 CBC W Auto Differential panel - Blood CBC + DIFF Lab Routine Type 2 diabetes mellitus without complication, with long-term current use of insulin (HCC) Essential hypertension Anxiety Depression, unspecified depression type Polycythemia Expected: 05/15/2023, Expires: 08/14/2023 [facility] Work Phone: Comment on above: Expected: 05/15/2023, Expires: Start: 05-15-2023 End: 08-14-2023 Comprehensive metabolic 2000 panel - Serum or Plasma COMP METABOLIC PANEL Lab Routine Type 2 diabetes mellitus without complication, with long-term current use of insulin (HCC) Essential hypertension Anxiety Depression, unspecified depression type Expected: 05/15/2023, Expires: 08/14/2023 [facility] Work Phone: Comment on above: Expected: 05/15/2023, Expires: Start: 05-15-2023 End: 08-14-2023 Hepatitis C virus Ab [Presence] in Serum HEPATITIS C ANTIBODY IA WITH CONFIRMATION Lab Routine Special screening examination for viral disease Expected: 05/15/2023, Expires: 08/14/2023 [facility] Work Phone: Comment on above: Expected: 05/15/2023, Expires: Start: 05-15-2023 End: 08-14-2023 Lipid 1996 panel - Serum or Plasma LIPID PANEL BASIC Lab Routine Type 2 diabetes mellitus without complication, with long-term current use of insulin (HCC) Mixed hyperlipidemia Expected: 05/15/2023, Expires: 08/14/2023 [facility] Work Phone: Comment on above: Expected: 05/15/2023, Expires: Start: 05-14-2023 Hepatitis B surface antibody level LDL CHOLESTEROL [facility] Start: 05-14-2023 Influenza vaccination LUNG CANCER SCREENING [facility] Start: 05-14-2023 Screening for malignant neoplasm of lung Lung Cancer Screening [facility] Start: 02-27-2023 Patient discharge [facility] Start: 02-27-2023 Care regimes management [facility] Start: 02-27-2023 Notification of physician [facility] Start: 02-27-2023 [facility] Start: 02-26-2023 Respiratory secretion precautions [facility] Start: 02-26-2023 Physiotherapy of chest [facility] Start: 02-25-2023 End: 02-25-2023 Dual pressure spontaneous ventilation support [facility] Start: 02-25-2023 End: 02-25-2023 [facility] Start: 02-25-2023 Following clinical pathway protocol [facility] Start: 02-25-2023 Assessment of risk of venous thromboembolism [facility] Start: 02-25-2023 Care regimes management [facility] Start: 02-25-2023 Continuous pulse oximetry [facility] Start: 02-25-2023 Fall prevention [facility] Start: 02-25-2023 Inhalation therapy procedure [facility] Start: 02-25-2023 Insertion of catheter into peripheral vein [facility] Start: 02-25-2023 Introduction of urinary catheter [facility] Start: 02-25-2023 Measuring intake and output [facility] Start: 02-25-2023 Methicillin resistant Staphylococcus aureus screening test [facility] Start: 02-25-2023 Notification of physician [facility] Start: 02-25-2023 Oxygen therapy [facility] Start: 02-25-2023 Providing care according to standard [facility] Start: 02-25-2023 Provision of activity privileges [facility] Start: 02-25-2023 Referral to occupational therapist [facility] Start: 02-25-2023 Referral to service [facility] Start: 02-25-2023 Tobacco use cessation education [facility] Start: 02-25-2023 Legionella pneumophila Ag [Presence] in Urine [facility] Start: 02-25-2023 Respiratory pathogens DNA and RNA panel - Respiratory specimen by DEMETRIO with probe detection [facility] Start: 02-25-2023 Streptococcus pneumoniae antigen assay [facility] Start: 02-25-2023 Verification routine [facility] Start: 02-25-2023 Admission procedure [facility] Start: 02-25-2023 Hospital admission, emergency, from emergency room, medical nature [facility] Start: 02-25-2023 End: 02-25-2023 [facility] Start: 02-25-2023 End: 02-25-2023 Blood culture [facility] Start: 02-25-2023 Bacteria identified in Blood by Culture Blood Culture [facility] Start: 02-25-2023 Respiratory microbial culture Respiratory Culture [facility] Start: 11-13-2022 Hemoglobin A1c measurement HbA1C [facility] Start: 11-13-2022 Hemoglobin A1c/Hemoglobin.total in Blood HBA1C [facility] Start: 10-23-2022 Hepatitis B screening URINE ALBUMIN:CREATININE RATIO [facility] Start: 10-15-2022 Covid-19 Vaccine () Covid-19 Vaccine () [facility] Start: 10-15-2022 Influenza vaccination [facility] Start: 10-14-2022 Hepatitis B screening URINE ALBUMIN:CREATININE RATIO [facility] Start: 10-14-2022 Hepatitis B surface antibody level LDL CHOLESTEROL [facility] Start: 09-24-2022 ANNUAL PCP TEAM CHRONIC DISEASE VISIT ANNUAL PCP TEAM CHRONIC DISEASE VISIT [facility] Start: 08-20-2022 End: 10-20-2022 Basic metabolic 2000 panel - Serum or Plasma BASIC METABOLIC PNL Lab Routine Type 2 diabetes mellitus without complication, with long-term current use of insulin ([facility]) Expected: 08/20/2022, Expires: 10/20/2022 [facility] Work Phone: Comment on above: Expected: 08/20/2022, Expires: 3 Start: 08-20-2022 End: 10-20-2022 Hemoglobin A1c in Blood HGB A1C Lab Routine Type 2 diabetes mellitus without complication, with long-term current use of insulin (HCC) Expected: 08/20/2022, Expires: 10/20/2022 [facility] Work Phone: Comment on above: Expected: 08/20/2022, Expires: 3 Start: 07-10-2022 ANNUAL PCP TEAM CHRONIC DISEASE VISIT ANNUAL PCP TEAM CHRONIC DISEASE VISIT [facility] Start: 06-19-2022 End: 08-19-2022 Hemoglobin A1c in Blood HGB A1C Lab Routine Type 2 diabetes mellitus without complication, with long-term current use of insulin (HCC) Expected: 06/19/2022, Expires: 08/19/2022 [facility] Work Phone: Comment on above: Expected: 06/19/2022, Expires: 3 Start: 06-16-2022 3 comp foot exam completed DIABETIC FOOT EXAM [facility] Start: 06-16-2022 ANNUAL PCP TEAM CHRONIC DISEASE VISIT ANNUAL PCP TEAM CHRONIC DISEASE VISIT [facility] Start: 06-16-2022 BP CONTROLLED (<130/80) BP CONTROLLED (<130/80) [facility] Start: 06-16-2022 Diabetic foot examination Diabetic Foot Exam [facility] Start: 06-16-2022 Hepatitis B surface antibody level LDL CHOLESTEROL [facility] Start: 03-22-2022 End: 05-22-2022 CBC W Auto Differential panel - Blood CBC + DIFF Lab Routine Anxiety Depression, unspecified depression type Type 2 diabetes mellitus without complication, with long-term current use of insulin (HCC) Primary hypertension Expected: 03/22/2022, Expires: 05/22/2022 [facility] Work Phone: Comment on above: Expected: 03/22/2022, Expires: 3 Start: 03-22-2022 End: 05-22-2022 Comprehensive metabolic 2000 panel - Serum or Plasma COMP METABOLIC PANEL Lab Routine Anxiety Primary hypertension Expected: 03/22/2022, Expires: 05/22/2022 [facility] Work Phone: Comment on above: Expected: 03/22/2022, Expires: 3 Start: 03-22-2022 End: 05-22-2022 Lipid 1996 panel - Serum or Plasma LIPID PANEL BASIC Lab Routine Type 2 diabetes mellitus without complication, with long-term current use of insulin (HCC) Expected: 03/22/2022, Expires: 05/22/2022 [facility] Work Phone: Comment on above: Expected: 03/22/2022, Expires: 3 Start: 01-15-2022 ANNUAL PCP TEAM CHRONIC DISEASE VISIT ANNUAL PCP TEAM CHRONIC DISEASE VISIT [facility] Start: 01-13-2022 Hemoglobin A1c/Hemoglobin.total in Blood HBA1C [facility] Start: 01-12-2022 Influenza vaccination LUNG CANCER SCREENING [facility] Start: 12-25-2021 End: 02-24-2022 Hemoglobin A1c in Blood HGB A1C Lab Routine Type 2 diabetes mellitus without complication, with long-term current use of insulin (HCC) Expected: 12/25/2021, Expires: 02/24/2022 [facility] Work Phone: Comment on above: Expected: 12/25/2021, Expires: 3 Start: 10-17-2021 COVID-19 VACCINE (4 - Booster for Pfizer series) COVID-19 VACCINE (4 - Booster for Pfizer series) [facility] Start: 10-16-2021 End: 12-16-2021 CREAT CLEAR 24 HOUR CREAT CLEAR 24 HOUR Lab Routine Microalbuminuria Expected: 10/16/2021, Expires: 12/16/2021 [facility] Work Phone: Comment on above: Expected: 10/16/2021, Expires: 2 Start: 10-15-2021 End: 12-15-2021 Hemoglobin A1c in Blood [facility] Work Phone: Comment on above: Expected: 10/15/2021, Expires: 2 Start: 10-15-2021 Influenza vaccination [facility] Start: 09-24-2021 End: 11-24-2021 ALBUMIN/CREAT RATIO RND UR ALBUMIN/CREAT RATIO RND UR Lab Routine Type 2 diabetes mellitus without complication, with long-term current use of insulin (HCC) Expected: 09/24/2021, Expires: 11/24/2021 [facility] Work Phone: Comment on above: Expected: 09/24/2021, Expires: 2 Start: 09-24-2021 End: 11-24-2021 CBC W Auto Differential panel - Blood CBC + DIFF Lab Routine Primary hypertension Type 2 diabetes mellitus without complication, with long-term current use of insulin (HCC) Expected: 09/24/2021, Expires: 11/24/2021 [facility] Work Phone: Comment on above: Expected: 09/24/2021, Expires: 2 Start: 09-24-2021 End: 11-24-2021 Comprehensive metabolic 2000 panel - Serum or Plasma COMP METABOLIC PANEL Lab Routine Primary hypertension Mixed hyperlipidemia Type 2 diabetes mellitus without complication, with long-term current use of insulin (HCC) Expected: 09/24/2021, Expires: 11/24/2021 [facility] Work Phone: Comment on above: Expected: 09/24/2021, Expires: 2 Start: 09-24-2021 End: 11-24-2021 Lipid 1996 panel - Serum or Plasma LIPID PANEL BASIC Lab Routine Mixed hyperlipidemia Type 2 diabetes mellitus without complication, with long-term current use of insulin (HCC) Expected: 09/24/2021, Expires: 11/24/2021 [facility] Work Phone: Comment on above: Expected: 09/24/2021, Expires: 2 Start: 08-11-2021 COVID-19 VACCINE (4 - Booster for Pfizer series) COVID-19 VACCINE (4 - Booster for Pfizer series) [facility] Start: 08-11-2021 COVID-19 VACCINE (4 - Pfizer series) COVID-19 VACCINE (4 - Pfizer series) [facility] Start: 06-23-2021 End: 08-23-2021 ALBUMIN/CREAT RATIO RND UR ALBUMIN/CREAT RATIO RND UR Lab Routine Type 2 diabetes mellitus without complication, with long-term current use of insulin (HCC) Expected: 06/23/2021, Expires: 08/23/2021 [facility] Work Phone: Comment on above: Expected: 06/23/2021, Expires: 2 Start: 06-18-2021 End: 08-18-2021 Hemoglobin A1c/Hemoglobin.total in Blood HGB A1C Lab Routine Type 2 diabetes mellitus without complication, with long-term current use of insulin (HCC) Expected: 06/18/2021, Expires: 08/18/2021 [facility] Work Phone: Comment on above: Expected: 06/18/2021, Expires: 2 Start: 05-29-2021 End: 07-29-2021 Comprehensive metabolic 2000 panel - Serum or Plasma COMP METABOLIC PANEL Lab Routine Type 2 diabetes mellitus without complication, with long-term current use of insulin (HCC) Mixed hyperlipidemia Primary hypertension Essential hypertension Expected: 05/29/2021, Expires: 07/29/2021 [facility] Work Phone: Comment on above: Expected: 05/29/2021, Expires: 2 Start: 05-29-2021 End: 07-29-2021 LIPID PANEL BASIC LIPID PANEL BASIC Lab Routine Type 2 diabetes mellitus without complication, with long-term current use of insulin (HCC) Mixed hyperlipidemia Primary hypertension Essential hypertension Expected: 05/29/2021, Expires: 07/29/2021 [facility] Work Phone: Comment on above: Expected: 05/29/2021, Expires: 2 Start: 04-20-2021 COVID-19 VACCINE (3 - Booster for Pfizer series) COVID-19 VACCINE (3 - Booster for Pfizer series) [facility] Start: 03-24-2021 Hepatitis B screening URINE ALBUMIN:CREATININE RATIO [facility] Start: 03-24-2021 Hepatitis B surface antibody level LDL CHOLESTEROL [facility] Start: 01-21-2021 Hemoglobin A1c/Hemoglobin.total in Blood HBA1C [facility] Start: 04-07-2019 3 comp foot exam completed DIABETIC FOOT EXAM [facility] Start: 03-31-2018 Mammography [facility] Start: 03-31-2018 Screening for malignant neoplasm of breast Mammogram Screening [facility] Start: 03-18-2018 COLORECTAL CANCER SCREENING COLORECTAL CANCER SCREENING [facility] Start: 03-18-2018 FECAL OCCULT BLOOD FECAL OCCULT BLOOD [facility] Start: 03-18-2018 Screening for malignant neoplasm of colon Fecal Occult Blood [facility] Start: 02-03-2017 PNEUMOCOCCAL (2 - PCV) PNEUMOCOCCAL (2 - PCV) [facility] Start: 02-03-2017 Pneumococcal vaccination [facility] Start: 02-03-2017 Pneumococcal Vaccine: 50+ (2 of 2 - PCV) Pneumococcal Vaccine: 50+ (2 of 2 - PCV) [facility] Start: 2016 SHINGRIX VACCINE (1 of 2) SHINGRIX VACCINE (1 of 2) [facility] Start: 11-06-2015 Glaucoma screening Dilated Retinal Exam [facility] Start: 11-06-2015 Hepatitis C antibody, confirmatory test DILATED RETINAL EXAM [facility] Start: 12-06-2011 COLOGUARD (FIT-DNA) COLOGUARD (FIT-DNA) [facility] Start: 12-06-2011 Colonoscopy COLONOSCOPY [facility] Start: 12-06-[address] COLONOGRAPHY [facility] Start: 12-06-2011 Screening for malignant neoplasm of colon [facility] Start: 12-06-2011 SIGMOIDOSCOPY SIGMOIDOSCOPY [facility] Start: 1996 HPV TESTING HPV TESTING [facility] Start: 1996 Screening for malignant neoplasm of cervix HPV Testing [facility] Start: 1996 Zoledronic acid therapy ALPHA-1 ANTITRYPSIN DEFICIENCY SCREENING [facility] Start: 12-06-1987 PAP TESTING PAP TESTING [facility] Start: 12-06-1987 Screening for malignant neoplasm of cervix [facility] Start: 1985 HEPATITIS B (1 of 3 - Risk 3-dose series) HEPATITIS B (1 of 3 - Risk 3-dose series) [facility] Start: 1985 Hepatitis B Vaccine (1 of 3 - 19+ 3-dose series) Hepatitis B Vaccine (1 of 3 - 19+ 3-dose series) [facility] Start: 1985 SHINGRIX VACCINE (1 of 2) SHINGRIX VACCINE (1 of 2) [facility] Start: 1984 BP CONTROLLED (<130/80) BP CONTROLLED (<130/80) [facility] Start: 1984 HEPATITIS C SCREENING HEPATITIS C SCREENING [facility] Start: 1984 Hepatitis C screening Hepatitis C Screening [facility] Start: 1984 HIV SCREENING HIV SCREENING [facility] Start: 1984 HIV screening HIV Screening [facility] Start: 1966 HEPATITIS B (1 of 3 - 3-dose series) HEPATITIS B (1 of 3 - 3-dose series) [facility] Start: 1966 Hepatitis B Vaccine (1 of 3 - 3-dose series) Hepatitis B Vaccine (1 of 3 - 3-dose series) [facility] COLOGUARD COLOGUARD Lab Ro utine Screening for colon cancer Ordered: 06/09/2023 [facility] Work Phone: Comment on above: Ordered: 06/09/2023 CT Chest WO contrast CT CHEST WO IVCON Radiology Routine Lung nodules Ground glass opacity present on imaging of lung 06/09/2023 12:02 PM EDT [facility] Work Phone: CT Chest WO contrast CT CHEST WO IVCON Radiology Routine Lung nodules 08/06/2024 12:25 PM EDT [facility] Work Phone: End: 08-06-2023 SHAHRAM SCREENING SHAHRAM SCREENING Radiology Routine Encounter for screening mammogram for breast cancer 1 Occurrences starting 07/07/2022 until 08/06/2023 [facility] Work Phone: Comment on above: 1 Occurrences starting 07/07/2022 until 08/06/2023 End: 07-08-2024 MG Breast Screening SHAHRAM SCREENING Radiology Routine Encounter for screening mammogram for malignant neoplasm of breast 1 Occurrences starting 06/09/2023 until 07/08/2024 [facility] Comment on above: 1 Occurrences starting 06/09/2023 until 07/08/2024 End: 07-06-2025 MG Breast Screening SHAHRAM SCREENING Radiology Routine Visit for screening mammogram 1 Occurrences starting 06/06/2024 until 07/06/2025 [facility] Comment on above: 1 Occurrences starting 06/06/2024 until 07/06/2025 Microalbumin/Creatin ine panel in random Urine ALBUMIN QUANT 24H UR Lab Routine Microalbuminuria Ordered: 10/16/2021 [facility] Work Phone: Comment on above: Ordered: 10/16/2021 End: 07-10-2022 Mri abdomen w/o & w/contrast material MRI LIVER WO/W IVCON Radiology Routine Liver mass 1 Occurrences starting 06/10/2021 until 07/10/2022 [facility] Work Phone: Comment on above: 1 Occurrences starting 06/10/2021 until 07/10/2022 End: 09-09-2024 OXIMETRY WITH AMBULATION OXIMETRY WITH AMBULATION PFT Routine Chronic obstructive pulmonary disease, unspecified COPD type (HCC) 1 Occurrences starting 08/11/2023 until 09/09/2024 [facility] Comment on above: 1 Occurrences starting 08/11/2023 until 09/09/2024 [facility] End: 09-04-2022 Screening mammography bi 2-view breast inc cad SHAHRAM SCREENING Radiology Routine Encounter for screening mammogram for breast cancer 1 Occurrences starting 08/05/2021 until 09/04/2022 [facility] Work Phone: Comment on above: 1 Occurrences starting 08/05/2021 until 09/04/2022 End: 09-09-2024 SPIROMETRY BASELINE ONLY SPIROMETRY BASELINE ONLY PFT Routine Chronic obstructive pulmonary disease, unspecified COPD type (HCC) 1 Occurrences starting 08/11/2023 until 09/09/2024 [facility] Work Phone: Comment on above: 1 Occurrences starting 08/11/2023 until 09/09/2024 SPIROMETRY BASELINE ONLY SPIROME TRY BASELINE ONLY PFT Routine Chronic obstructive pulmonary disease, unspecified COPD type (HCC) 05/30/2024 9:02 AM EDT [facility] Work Phone: End: 06-06-2025 US Lower extremity artery - bilateral US LEG ARTERIAL PERIPH [facility] Vascular Lab Routine Venous insufficiency 1 Occurrences starting 06/06/2024 until 06/06/2025 [facility] Work Phone: Comment on above: 1 Occurrences starting 06/06/2024 until 06/06/2025 End: 08-28-2025 US Vein - bilateral US VENOUS INCOMPETENCY [facility] Vascular Lab Routine Venous insufficiency 1 Occurrences starting 08/28/2024 until 08/28/2025 [facility] Work Phone: Comment on above: 1 Occurrences starting 08/28/2024 until 08/28/2025 End: 06-06-2025 US.doppler Extremity arteries - bilateral for physiologic artery study PVR ANK PRESS [facility] Vascular Lab Routine Venous insufficiency 1 Occurrences starting 06/06/2024 until 06/06/2025 [facility] Comment on above: 1 Occurrences starting 06/06/2024 until 06/06/2025 [facility] Immunizations Immunization Date Immunization Notes Care Provider Fa [facility] 08-08-2024 pneumococcal conjuga te (PCV20) vaccine, 20 valent (PREVNAR 20) 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 Samson saldivar Work Phone: [facility] 06-16-2021 COVID-19 vaccine, ag e 12+ yr (PFIZER-BIONTECH - [facility]) Samson Hogan MD Work Phone: [facility] 11-20-2020 Covid (Pfizer) Dr. Samson saldivar Work Phone: [facility] 10-23-2020 Covid (Pfizer) Dr. Samson saldivar Work Phone: [facility] 04-29-2020 influenza, injectabl e, quadrivalent, preservative free Dr. Samson Hogan Work Phone: [facility] 04-29-2020 influenza, seasonal, injectable, preservative free Leeroy Jacobs MD Work Phone: [facility] Work Phone: 04-29-2020 Seasonal, quadrivale nt, recombinant, injectable influenza vaccine, preservative free Dr. Samson Hogan Work Phone: [facility] 04-29-2020 influenza virus vacc ine, unspecified formulation NA Matthias DUVAL Work Phone: [facility] 12-27-2018 influenza, injectabl e, quadrivalent, contains preservative Leeroy Jacobs MD Work Phone: [facility] 12-27-2018 influenza, injectabl e, quadrivalent, preservative free Dr. Samson Hogan Work Phone: [facility] 04-10-2018 influenza, injectabl e, quadrivalent, contains preservative Leeroy Jacobs MD Work Phone: [facility] 04-10-2018 influenza, injectabl e, quadrivalent, preservative free Dr. Samson Hogan Work Phone: [facility] 01-17-2017 influenza, injectabl e, quadrivalent, contains preservative Leeroy Jacobs MD Work Phone: [facility] 01-17-2017 influenza, injectabl e, quadrivalent, preservative free Dr. Samson Hogan Work Phone: [facility] 02-04-2016 influenza, injectabl e, quadrivalent, contains preservative Leeroy Jacobs MD Work Phone: [facility] 02-04-2016 pneumococcal polysaccharide vaccine, 23 valent Leeroy Jacobs MD Work Phone: [facility] 12-14-2014 influenza, injectabl e, quadrivalent, contains preservative Leeroy Jacobs MD Work Phone: [facility] 12-14-2014 influenza, injectabl e, quadrivalent, preservative free Dr. Samson Hogan Work Phone: [facility] 12-14-2014 influenza, seasonal, injectable Samson Hogan MD Work Phone: [facility] 12-10-2013 influenza, injectabl e, quadrivalent, preservative free Dr. Samson Hogan Work Phone: [facility] 12-10-2013 influenza, seasonal, injectable Leeroy Jacobs MD Work Phone: [facility] 11-10-2012 influenza virus vacc ine, unspecified formulation Leeroy Jacobs MD Work Phone: [facility] Payers Date Payer Category Payer Self-pay [id number] 2017 Medicaid [facility] MEDICAID [id number] 2017-Present [phone] [address] [place] [address] Medicaid [id number] 2017 Medicaid [id number] 2012 Unknown [id number] Unknown [id number] Unknown [id number] Unknown [id number] Unknown [id number] Unknown [id number] Unknown [id number] Social History Date Type Detail Facility Start: 12-06-1979 End: 05-30-2024 Tobacco smoking status OKIS Smokes tobacco daily [facility] Start: 12-06-1979 History of tobacco use Cigarette Smo ker [facility] Start: 01-19-2021 End: 06-06-2024 Alcohol intake Current non-drinker of alcohol (finding) [facility] Start: 11-15-2019 End: 07-10-2021 History SDOH Alcohol Frequency 1 [facility] Start: 11-15-2019 End: 07-10-2021 History SDOH Alcohol Std Drinks 98 [facility] Start: 08-01-2019 History SDOH Social Connections Phone 4 [facility] Start: 08-01-2019 End: 07-10-2021 History SDOH Social Connections Get Together 2 [facility] Start: 08-01-2019 End: 05-21-2022 History SDOH Social Connections Living 3 [facility] Start: 08-01-2019 End: 07-10-2021 History SDOH Physical Activity DPW 5 [facility] Start: 08-01-2019 Education 8 [facility] Start: 11-15-2019 Tobacco Comment 11/15/2019 10- 15 cigs/day. TO [facility] Start: 1965 Sex Assigned At Not on file [facility] Start: 05-08-2021 End: 05-18-2021 Exposure to SARS-CoV-2 (event) Unable to assess [facility] Work Phone: Start: 12-22-2019 End: 07-10-2021 Exposure to SARS-CoV-2 (event) Not sure [facility] Start: 07-10-2021 History SDOH Physica l Activity DPW 0 [facility] Start: 07-16-2021 Tobacco Comment A pack or les s per day, depending on the day, 07/16/2021, TO [facility] Start: 07-16-2021 End: 01-09-2024 Cigarettes smoked current (pack per day) - Reported 2 [facility] Start: 07-16-2021 End: 05-30-2024 Tobacco use and exposure Smokeless tobacco non-user [facility] Work Phone: Start: 03-11-2022 Tobacco Comment Down to [facility] ppd [facility] Start: 05-21-2022 End: 01-09-2024 Social connection and isolation panel [facility] Start: 01-16-2012 In a typical week, h ow many times do you talk on the telephone with family, friends, or neighbors? Patient refused [facility] Are you now , , , , never or living with a partner? Refused [facility] (I/We) worried wheth er (my/our) food would run out before (I/we) got money to buy more. DK or Refused [facility] Do you belong to any clubs or organizations such as buddhist groups, unions, fraternal or athletic groups, or school groups? No [facility] Are you now , , , , never or living with a partner? [facility] How often to you hav e a drink containing alcohol? Never [facility] How hard is it for y ou to pay for the very basics like food, housing, medical care, and heating Somewhat hard [facility] Do you feel stress - tense, restless, nervous, or anxious, or unable to sleep at night because your mind is troubled all the time - these days [OSQ] Only a little [facility] (I/We) worried wheth er (my/our) food would run out before (I/we) got money to buy more. Never true [facility] In the past 12 month s, was there a time when you were not able to pay the mortgage or rent on time? Yes [facility] Start: 02-25-2023 End: 02-25-2023 Tobacco smoking status NHIS Unknown if ever smoked [facility] Start: 2020 Occasional [facility] Start: 2020 None [facility] Start: 2020 Homeless [facility] Start: 04-29-2020 Cigarettes [facility] Start: 1965 Sex Assigned At Female [facility] Start: 05-30-2024 Tobacco Comment Down to 2 ciga rettes per day 05/30/24 [facility] Medical Equipment Procedure Code Equipment Code Equipment Original Text Equipment Identifier Dates Appendectomy, laparoscopic 45mm Standard Reload FDA Start: 09-01-2019 Appendectomy, laparoscopic 45mm Vascular Reload FDA Start: 09-01-2019 Appendectomy, laparoscopic 45mm Standard Reload FDA Start: 09-01-2019 Appendectomy, laparoscopic 45mm Vascular Reload FDA Start: 09-01-2019 Stent Uret Inlay 7f X 28cm - [id number] Start: 08-26-2009 Comment on above: Description: sarwat [id number], [id number], [id number], [id number], [id number], [id number], [id number], [id number], [id number], [id number], [id number] Start: 01-18-2019 End: 05-04-2024 Comment on above: Test blood sugar(s) 4 times daily. Dx: Type 2 DM - Uncontrolled E11.65 Insulin: Yes Use as instructed to check blood sugar when indicated by reader. Checking once daily. 25 strips per month. USE FIVE TIMES A DAY Test blood sugar(s) 2 times daily: fasting am and 2 hour after largest meal. Dx: Type 2 DM - Controlled E11.9 Insulin: Yes Test blood sugar(s) 2 times daily. Dx: Type 2 DM - Uncontrolled E11.65 Insulin: Yes Goals Date Patient Goal Desired Activity /State Functional Status Date Assessment Result Facility 02-27-2023 Functional status Ambulates [facility] Work Phone: 04-22-2014 Are you deaf, or do you have serious difficulty hearing No 04/22/2014 3:40 PM Mary Medina LPN No [facility] 04-22-2014 Are you blind, or do you have serious difficulty seeing, even when wearing glasses No 04/22/2014 3:40 PM Mary Medina LPN No [facility] 04-22-2014 Do you have serious difficulty walking or climbing stairs No 04/22/2014 3:40 PM Mary Medina LPN No [facility] 04-22-2014 Do you have difficul ty dressing or bathing No 04/22/2014 3:40 PM Mary Medina LPN No [facility] 04-22-2014 Because of a physica l, mental, or emotional condition, do you have difficulty doing errands alone such as visiting a physician's office or shopping No 04/22/2014 3:40 PM Mary Medina LPN No [facility] Mental Status Date Assessment Result Facility 02-26-2023 Cognitive function Voice/Name [facility] Work Phone: 04-22-2014 Because of a physica l, mental, or emotional condition, do you have serious difficulty concentrating, remembering, or making decisions No 04/22/2014 3:40 PM EDT Mary Santiago LPN No [facility] Clinical Notes 09-18-2009 to 10-04-2024 Telephone Encounter - Dhara Naylor RN - 10/04/2024 2:48 PM EDTTelephone Encounter - Dhara Naylor RN - 10/04/2024 2:48 PM EDTTelephone Encounter - Dhara Naylor RN - 09/11/2024 3:14 PM EDT Note Date & Type Note Facility 10-04-2024 Telephone encounter Note [facility] calling for 7 refills. Of note, pt was dismissed from [facility] practice, effective 09/11/24. Patient has recently reported that she does not have appt with a new provider until mid-October. Scripts pended for provider review. Please call [facility] if provider not agreeable to complete this request. Dhara Naylor RN The patient has been identified by name and date of : Yes Caregiver verified no other encounters exist for this prescription request: Yes Caregiver confirmed with patient/requestor that no other refills are due, in the near future, with this provider at this time: Yes The last office visit in the department: 08/08/2024 Does the patient have a future office visit with this provider/department: NO Requested Prescriptions Pending Prescriptions Disp Refills atorvastatin (LIPITOR) 40 mg tablet 30 tablet Sig: Take 1 tablet by mouth daily at bedtime. busPIRone (BUSPAR) 7.5 mg tablet 90 tablet Sig: Take 1 tablet by mouth three times a day. metFORMIN ER (GLUCOPHAGE XR) 500 mg 24 hr tablet 120 tablet Sig: Take 2 tablets by mouth two times a day with meals. lisinopril-hydroCHLOROthiazide (ZESTORETIC) 20-12.5 mg per tablet 60 tablet Sig: Take 2 tablets by mouth once daily. gabapentin (NEURONTIN) 300 mg capsule 90 capsule Sig: Take 1 capsule by mouth three times a day for 30 days. furosemide (LASIX) 40 mg tablet 30 tablet Sig: Take 1 tablet by mouth once daily. venlafaxine ER (EFFEXOR XR) 150 mg 24 hr capsule 30 capsule Sig: Take 1 capsule by mouth once daily. Dhara Naylor RN [facility] 10-04-2024 Miscellaneous Notes [facility] calling for 7 refills. Of note, pt was dismissed from [facility] practice, effective 09/11/24. Patient has recently reported that she does not have appt with a new provider until mid-October. Scripts pended for provider review. Please call [facility] if provider not agreeable to complete this request. Dhara Naylor RN The patient has been identified by name and date of : Yes Caregiver verified no other encounters exist for this prescription request: Yes Caregiver confirmed with patient/requestor that no other refills are due, in the near future, with this provider at this time: Yes The last office visit in the department: 08/08/2024 Does the patient have a future office visit with this provider/department: NO Requested Prescriptions Pending Prescriptions Disp Refills atorvastatin (LIPITOR) 40 mg tablet 30 tablet Sig: Take 1 tablet by mouth daily at bedtime. busPIRone (BUSPAR) 7.5 mg tablet 90 tablet Sig: Take 1 tablet by mouth three times a day. metFORMIN ER (GLUCOPHAGE XR) 500 mg 24 hr tablet 120 tablet Sig: Take 2 tablets by mouth two times a day with meals. lisinopril-hydroCHLOROthiazide (ZESTORETIC) 20-12.5 mg per tablet 60 tablet Sig: Take 2 tablets by mouth once daily. gabapentin (NEURONTIN) 300 mg capsule 90 capsule Sig: Take 1 capsule by mouth three times a day for 30 days. furosemide (LASIX) 40 mg tablet 30 tablet Sig: Take 1 tablet by mouth once daily. venlafaxine ER (EFFEXOR XR) 150 mg 24 hr capsule 30 capsule Sig: Take 1 capsule by mouth once daily. Dhara Naylor RN documented in this encounter [facility] 09-11-2024 Telephone encounter Note The patient has been identified by name and date of : Yes Caregiver verified no other encounters exist for this prescription request: Yes Caregiver confirmed with patient/requestor that no other refills are due, in the near future, with this provider at this time: Yes The last office visit in the department: 08/08/2024 Does the patient have a future office visit with this provider/department: (to be scheduled) Requested Prescriptions Pending Prescriptions Disp Refills furosemide (LASIX) 40 mg tablet 28 tablet 0 Sig: Take 1 tablet by mouth once daily. gabapentin (NEURONTIN) 300 mg capsule 90 capsule 0 Sig: Take 1 capsule by mouth three times a day for 30 days. Dhara Naylor RN [facility] 09-11-2024 Miscellaneous Notes The patient has been identified by name and date of : Yes Caregiver verified no other encounters exist for this prescription request: Yes Caregiver confirmed with patient/requestor that no other refills are due, in the near future, with this provider at this time: Yes The last office visit in the department: 08/08/2024 Does the patient have a future office visit with this provider/department: (to be scheduled) Requested Prescriptions Pending Prescriptions Disp Refills furosemide (LASIX) 40 mg tablet 28 tablet 0 Sig: Take 1 tablet by mouth once daily. gabapentin (NEURONTIN) 300 mg capsule 90 capsule 0 Sig: Take 1 capsule by mouth three times a day for 30 days. Dhara Naylor RN documented in this encounter [facility] 08-20-2024 Telephone encounter Note Prescription Refill Information The patient has been identified by name and date of : Yes Caregiver verified no other encounters exist for this prescription request: Yes Caregiver confirmed with patient/requestor that no other refills are due, in the near future, with this provider at this time: Yes The last office visit in the department: 08/08/24 Does the patient have a future office visit with this provider/department: Yes Requested Prescriptions Pending Prescriptions Disp Refills dulaglutide (TRULICITY) 0.75 mg/0.5 mL pen injector 4 each 0 Sig: Inject 0.75 mg subcutaneously one time a week. Jackie Carrion August 20, 2024 12:57 PM [facility] 08-20-2024 Miscellaneous Notes Prescription Refill Information The patient has been identified by name and date of : Yes Caregiver verified no other encounters exist for this prescription request: Yes Caregiver confirmed with patient/requestor that no other refills are due, in the near future, with this provider at this time: Yes The last office visit in the department: 08/08/24 Does the patient have a future office visit with this provider/department: Yes Requested Prescriptions Pending Prescriptions Disp Refills dulaglutide (TRULICITY) 0.75 mg/0.5 mL pen injector 4 each 0 Sig: Inject 0.75 mg subcutaneously one time a week. Jackie Carrion August 20, 2024 12:57 PM documented in this encounter [facility] 08-08-2024 Note HNO ID: [id number] Author: LU GREENE APRN.[employer] B[employer] ARCHITECT Service: ? Author Type: Nurse Practitioner Type: Progress Notes Filed: 08/08/2024 17:39 Note Text: This is a 58 year old female who presents today with: Rosa Maria Menjivar is a 58-year-old female with a history of HTN, DM, anxiety, and depression, presenting for a blood pressure check. HISTORY OF PRESENT ILLNESS: Hypertension: - Current medications: atenolol 75 mg daily, lisinopril, HCTZ, spironolactone. - No recent home blood pressure monitoring. - Denies chest pain or palpitations. Diabetes Mellitus: - Resumed Trulicity; previously on [place]. - Current medications: Lantus 83 units BID, Humalog 63 units in the morning, 3 units in the afternoon, 94 units in the evening. [place] like her sugar was low here. Per her CGM, it was in the 80s. Anxiety and Depression: - Current medications: BuSpar, Effexor 150 mg and 75 mg. - Rarely leaves the house except for medical appointments. Hearing Concerns: - Reports decreased hearing and a persistent sound in the ears, likened to an old TV going off station. - Suspects ear drainage; denies current drainage but has a history of ear drainage. - Experiencing eye itching, attributing it to allergies. PAST MEDICAL HISTORY: PAST MEDICAL HISTORY Diagnosis Date Chronic hypoxemic respiratory failure ([facility]) 07/16/2021 Due to morbid obesity. COPD (chronic obstructive pulmonary disease) ([facility]) with chronic hypoxemic respiratory failure; [...] ABDOMEN W/ AND W/O CONTRAST 10/16/2021 10/16/2021 [facility] MRI w/wo IVCON: no patterns to suggest malignancy on enhancement. Normal portal and hepatic veins. Staghorn calculus in the left kidney upper pole, 3cm simple cyst attached to gallbladder duct, simple small liver cyst inferior right lobe, right adrenal adenoma with benign characteristics. OTHER right lower portion of kidney removed in 2009 PAST SURGICAL HISTORY OF Repair of right arm fx as child ALLERGIES Jardiance [Empagliflozin]; Morphine; Tetanus And Diphtheria Toxoids, Adsorbed, Adult; and Toradol [Ketorolac Tromethamine] MEDICATIONS Current Outpatient Medications Medication Sig atenolol (TENORMIN) 100 mg tablet Take 1 tablet by mouth once daily. magnesium oxide 400 mg magnesium tab Take 400 mg by mouth two times a day. insulin glargine (LANTUS SOLOSTAR U-100 INSULIN) 100 unit/mL (3 mL) Inject 83 Units subcutaneously two times a day. insulin lispro (HUMALOG) 200 unit/mL (3 mL) injection 63 units am, 3 units afternoon, 94 units before evening meal gabapentin (NEURONTIN) 300 mg capsule Take 1 capsule by mouth three times a day for 30 days. furosemide (LASIX) 40 mg tablet Take 1 tablet by mouth once daily. busPIRone (BUSPAR) 7.5 mg tablet Take 1 tablet by mouth three times a day. metFORMIN ER (GLUCOPHAGE XR) 500 mg 24 hr tablet Take 2 tablets by mouth two times a day with meals. lisinopril-hydroCHLOROthiazide (ZESTORETIC) 20-12.5 mg per tablet Take 2 tablets by mouth once daily. atorvastatin (LIPITOR) 40 mg tablet Take 1 tablet by mouth daily at bedtime. insulin lispro (HUMALOG) 200 unit/mL (3 mL) injection 63 units am, 3 units afternoon, 94 units before evening meal for 30 days venlafaxine ER (EFFEXOR XR) 75 mg 24 hr capsule TAKE 1 CAPSULE BY MOUTH DAILY IN ADDITION TO 150 MG A DAY. omeprazole (PRILOSEC) 20 mg capsule Take 1 capsule by mouth daily before breakfast. 1/2 hr before meal. dulaglutide (TRULICITY) 0.75 mg/0.5 mL pen injector Inject 0.75 mg subcutaneously one time a week. spironolactone (ALDACTONE) 25 mg tablet Take 25 mg by mouth once daily. mometasone-formoterol (DULERA) 50-5 mcg/actuation HFA aerosol inhaler Inhale 2 puffs as instructed two times a day. ammonium lactate (LAC-HYDRIN) 12 % cream Apply 1 application to affected area as needed. Insulin [place], Disposable, (ULTICARE PEN NEEDLE) 29 gauge x 1/2 USE FIVE TIMES A DAY venlafaxine ER (EFFEXOR XR) 150 mg 24 hr capsule Take 1 capsule by mouth once daily. flash glucose sensor (FREESTYLE TERRELL 2 SENSOR) kit Use to check blood glucose 4 times daily. flash glucose scanning reader (FREESTYLE TERRELL 2 READER) 1 Each four times daily. albuterol HFA (PROVENTIL HFA, VENTOLIN HFA) 90 mcg/actuation inhaler Inhale 2 Puffs as i (more content not included)... [facility] 08-08-2024 History of Present illness Narrative This is a 58 year old female who presents today with: Rosa Maria Menjivar is a 58-year-old female with a history of HTN, DM, anxiety, and depression, presenting for a blood pressure check. HISTORY OF PRESENT ILLNESS: Hypertension: - Current medications: atenolol 75 mg daily, lisinopril, HCTZ, spironolactone. - No recent home blood pressure monitoring. - Denies chest pain or palpitations. Diabetes Mellitus: - Resumed Trulicity; previously on [place]. - Current medications: Lantus 83 units BID, Humalog 63 units in the morning, 3 units in the afternoon, 94 units in the evening. [place] like her sugar was low here. Per her CGM, it was in the 80s. Anxiety and Depression: - Current medications: BuSpar, Effexor 150 mg and 75 mg. - Rarely leaves the house except for medical appointments. Hearing Concerns: - Reports decreased hearing and a persistent sound in the ears, likened to an old TV going off station. - Suspects ear drainage; denies current drainage but has a history of ear drainage. - Experiencing eye itching, attributing it to allergies. PAST MEDICAL HISTORY: PAST MEDICAL HISTORY Diagnosis Date Chronic hypoxemic respiratory failure (HCC) 07/16/2021 Due to morbid obesity. COPD (chronic obstructive pulmonary disease) ([facility]) with chronic hypoxemic respiratory failure; [...] ABDOMEN W/ & W/O CONTRAST 10/16/2021 10/16/2021 [facility] MRI w/wo IVCON: no patterns to suggest malignancy on enhancement. Normal portal and hepatic veins. Staghorn calculus in the left kidney upper pole, 3cm simple cyst attached to gallbladder duct, simple small liver cyst inferior right lobe, right adrenal adenoma with benign characteristics. OTHER right lower portion of kidney removed in 2009 PAST SURGICAL HISTORY OF Repair of right arm fx as child ALLERGIES Jardiance [Empagliflozin]; Morphine; Tetanus And Diphtheria Toxoids, Adsorbed, Adult; and Toradol [Ketorolac Tromethamine] MEDICATIONS Current Outpatient Medications Medication Sig atenolol (TENORMIN) 100 mg tablet Take 1 tablet by mouth once daily. magnesium oxide 400 mg magnesium tab Take 400 mg by mouth two times a day. insulin glargine (LANTUS SOLOSTAR U-100 INSULIN) 100 unit/mL (3 mL) Inject 83 Units subcutaneously two times a day. insulin lispro (HUMALOG) 200 unit/mL (3 mL) injection 63 units am, 3 units afternoon, 94 units before evening meal gabapentin (NEURONTIN) 300 mg capsule Take 1 capsule by mouth three times a day for 30 days. furosemide (LASIX) 40 mg tablet Take 1 tablet by mouth once daily. busPIRone (BUSPAR) 7.5 mg tablet Take 1 tablet by mouth three times a day. metFORMIN ER (GLUCOPHAGE XR) 500 mg 24 hr tablet Take 2 tablets by mouth two times a day with meals. lisinopril-hydroCHLOROthiazide (ZESTORETIC) 20-12.5 mg per tablet Take 2 tablets by mouth once daily. atorvastatin (LIPITOR) 40 mg tablet Take 1 tablet by mouth daily at bedtime. insulin lispro (HUMALOG) 200 unit/mL (3 mL) injection 63 units am, 3 units afternoon, 94 units before evening meal for 30 days venlafaxine ER (EFFEXOR XR) 75 mg 24 hr capsule TAKE 1 CAPSULE BY MOUTH DAILY IN ADDITION TO 150 MG A DAY. omeprazole (PRILOSEC) 20 mg capsule Take 1 capsule by mouth daily before breakfast. 1/2 hr before meal. dulaglutide (TRULICITY) 0.75 mg/0.5 mL pen injector Inject 0.75 mg subcutaneously one time a week. spironolactone (ALDACTONE) 25 mg tablet Take 25 mg by mouth once daily. mometasone-formoterol (DULERA) 50-5 mcg/actuation HFA aerosol inhaler Inhale 2 puffs as instructed two times a day. ammonium lactate (LAC-HYDRIN) 12 % cream Apply 1 application to affected area as needed. Insulin [place], Disposable, (ULTICARE PEN NEEDLE) 29 gauge x 1/2 USE FIVE TIMES A DAY venlafaxine ER (EFFEXOR XR) 150 mg 24 hr capsule Take 1 capsule by mouth once daily. flash glucose sensor (InventicSTYLE TERRELL 2 SENSOR) kit Use to check blood glucose 4 times daily. flash glucose scanning reader (InventicSTYLE TERRELL 2 READER) 1 Each four times daily. albuterol HFA (PROVENTIL HFA, VENTOLIN HFA) 90 mcg/actuation inhaler Inhale 2 Puffs as instructed every 4 hours as needed. blood sugar diagnostic (BLOOD GLUCOSE TEST) test strip Test blood sugar(s) 2 times daily: fasting am and 2 hour after largest meal. Dx: Type 2 DM - Controlled E11.9 Insulin: Yes potassium chloride (K-TAB) 10 mEq tablet Take 2 tablets by mouth daily with breakfast. Lancets lancets Test blood sugar(s) 2 times daily. Dx: Type 2 DM - Uncontrolled E11.65 Insulin: Yes CPAP 11 cm via nasal mask with 20 min ramp and humidification. OXYGEN, HOME THERAPY, 2 L/min by Nasal Cannula route continuous. COMPOUNDED PRESCRIPTION C-PAP MASK HOSES, FILTERS glucose 4 gram chewable tablet Take 4 tablets by mouth as needed. For sugar less than 70 COMPOUNDED PRESCRIPTION COMPRESSION STOCKINGS 20-30 mm Knee high. DX: venous insufficiency COMPOUNDED PRESCRIPTION cpap supplies: sleep apnea COMPOUNDED PRESCRIPTION CPAP mask No current facility-administered medications for this visit. FAMILY HISTORY Problem Relation Age of Onset COPD Mother Ischemic Heart Disease Father Ischemic Heart Disease Sister Colon Cancer Maternal Grandfather Diabetes Maternal Aunt Diabetes Paternal Aunt Breast Cancer Other Maternal cousin Social History Tobacco Use Smoking status: Every Day Current packs/day: 2.00 Average packs/day: 2.0 packs/day for 44.7 years (89.3 ttl pk-yrs) Types: Cigarettes Start date: 12/06/1979 Smokeless tobacco: Never Tobacco comments: Down to 2 cigarettes per day 05/30/24 Vaping Use Vaping status: Never Used Substance Use Topics Alcohol use: No Drug use: No REVIEW OF SYSTEMS Eyes: (+) ocular pruritus Ears/Nose/Mouth/Throat: (+) decreased hearing, (+) tinnitus, (+) ear drainage Cardiovascular: (-) chest pain, (-) palpitations EXAM: BP 138/84 (BP Site: Left Arm, BP Position: Sitting, BP Cuff Size: Large Adult) Pulse 87 Resp 16 LMP 06/12/2015 SpO2 92% PHYSICAL EXAM: General Appearance: Well appearing, alert, in no acute distress, well-hydrated, well nourished.. Skin: Skin color, texture, turgor normal, no suspicious rashes or lesions. Head: Normocephalic, no masses, lesions, tenderness or abnormalities. Eyes: Anicteric sclera. Extraocular movements are intact. . Ears: External ears normal, canals clear, Positive findings: R TM: air/fluid interface visualized, L TM: air/fluid interface visualized. Oropharynx: Lips, mucosa, and tongue normal, teeth and gums normal, oropharynx normal. Lungs: Lungs clear to auscultation. No wheezing, rhonchi, rales.. Heart: RRR without murmur, gallop, or rubs. No ectopy. Extremities: No deformities, edema, skin discoloration, clubbing or cyanosis. Good capillary refill. . Neurologic: Gait normal. ASSESSMENT/PLAN 1. Essential hypertension (I10) - Blood pressure reading today was 138/84 mmHg, which is an improvement but still requires better control. - Current medications include atenolol 75 mg daily, lisinopril, hydrochlorothiazide, and spironolactone. - Increased atenolol dosage to 100 mg daily. - Follow-up in one month to recheck blood pressure. 2. Type 2 diabetes mellitus without complication, with long-term current use of insulin (HCC) (E11.9) - Resumed Trulicity; monitoring blood glucose levels at home. - Current insulin regimen includes Lantus 83 units BID and Humalog 63 units in the morning, 3 units in the afternoon, and 94 units in the evening. - A1c to be re-evaluated during next visit in one month; no fasting required for lab work. 3. Generalized anxiety disorder (F41.1) - Current medications include BuSpar and Effexor 150 mg and 75 mg. - Patient reports stable, but limited social interaction and reluctance to leave the house. 4. Major depressive disorder, recurrent, in partial remission (F33.41) - Continue current medication regimen. 5. Encounter for immunization (Z23) - Administered pneumonia vaccine. - Advised patient to check with Medicaid regarding coverage and location for shingles vaccine administration. - Patient to follow up in one month; shingles vaccine can be administered during next visit if covered. Discussed treatment plan and patient voices understanding. Patient's questions answered appropriately. Medications and potential side effects were discussed and patient voices understanding. Return to the office as scheduled or as needed for worsening/no improvement. Lu Greene APRN.[employer] BPM ARCHITECT Recording using ambient AI software for draft documentation of the visit was discussed with the patient/authorized community relations representative; all questions welcomed and answered. Patient/authorized community relations representative agreed to proceed documented in this encounter [facility] 08-08-2024 Instructions Lu Greene APRN.CNP - 08/08/2024 11:14 AM EDT Increase the atenolol to 100 mg daily. Continue the magnesium. Check with insurance re: where to get the shingrix vaccine. Recheck in a month. documented in this encounter [facility] 08-07-2024 Telephone encounter Note The patient has been identified by name and date of : Yes Caregiver verified no other encounters exist for this prescription request: Yes Caregiver confirmed with patient/requestor that no other refills are due, in the near future, with this provider at this time: Yes The last office visit in the department: 06/06/2024 Does the patient have a future office visit with this provider/department: Yes 08/08/2024 Requested Prescriptions Pending Prescriptions Disp Refills atenolol (TENORMIN) 50 mg tablet 30 tablet 1 Sig: Take 1 tablet by mouth once daily. atorvastatin (LIPITOR) 40 mg tablet 30 tablet 1 Sig: Take 1 tablet by mouth daily at bedtime. busPIRone (BUSPAR) 7.5 mg tablet 90 tablet 1 Sig: Take 1 tablet by mouth three times a day. furosemide (LASIX) 40 mg tablet 28 tablet 0 Sig: Take 1 tablet by mouth once daily. gabapentin (NEURONTIN) 300 mg capsule 90 capsule 0 Sig: Take 1 capsule by mouth three times a day for 30 days. lisinopril-hydroCHLOROthiazide (ZESTORETIC) 20-12.5 mg per tablet 60 tablet 1 Sig: Take 2 tablets by mouth once daily. metFORMIN ER (GLUCOPHAGE XR) 500 mg 24 hr tablet 120 tablet 1 Sig: Take 2 tablets by mouth two times a day with meals. Jovany Rodriguez RN August 07, 2024 2:23 PM [facility] 08-07-2024 Miscellaneous Notes The patient has been identified by name and date of : Yes Caregiver verified no other encounters exist for this prescription request: Yes Caregiver confirmed with patient/requestor that no other refills are due, in the near future, with this provider at this time: Yes The last office visit in the department: 06/06/2024 Does the patient have a future office visit with this provider/department: Yes 08/08/2024 Requested Prescriptions Pending Prescriptions Disp Refills atenolol (TENORMIN) 50 mg tablet 30 tablet 1 Sig: Take 1 tablet by mouth once daily. atorvastatin (LIPITOR) 40 mg tablet 30 tablet 1 Sig: Take 1 tablet by mouth daily at bedtime. busPIRone (BUSPAR) 7.5 mg tablet 90 tablet 1 Sig: Take 1 tablet by mouth three times a day. furosemide (LASIX) 40 mg tablet 28 tablet 0 Sig: Take 1 tablet by mouth once daily. gabapentin (NEURONTIN) 300 mg capsule 90 capsule 0 Sig: Take 1 capsule by mouth three times a day for 30 days. lisinopril-hydroCHLOROthiazide (ZESTORETIC) 20-12.5 mg per tablet 60 tablet 1 Sig: Take 2 tablets by mouth once daily. metFORMIN ER (GLUCOPHAGE XR) 500 mg 24 hr tablet 120 tablet 1 Sig: Take 2 tablets by mouth two times a day with meals. Jovany Rodriguez RN August 07, 2024 2:23 PM documented in this encounter [facility] 08-01-2024 Telephone encounter Note Next appt 08/07/24 with Elayne Morales. [facility] 08-01-2024 Miscellaneous Notes Next appt 08/07/24 with Elayne Morales. Prescription Refill Information The patient has been identified by name and date of : Yes Caregiver verified no other encounters exist for this prescription request: Yes Caregiver confirmed with patient/requestor that no other refills are due, in the near future, with this provider at this time: Yes The last office visit in the department: 06-06-24 Does the patient have a future office visit with this provider/department: No Requested Prescriptions Pending Prescriptions Disp Refills magnesium oxide 400 mg magnesium tab 60 tablet 1 Sig: Take 400 mg by mouth two times a day. insulin glargine (LANTUS SOLOSTAR U-100 INSULIN) 100 unit/mL (3 mL) 51 mL 0 Sig: Inject 83 Units subcutaneously two times a day. insulin lispro (HUMALOG) 200 unit/mL (3 mL) injection 60 mL 2 Si units am, 3 units afternoon, 94 units before evening meal Melissa Clements July 31, 2024 1:02 PM documented in this encounter [facility] 07-31-2024 Telephone encounter Note Prescription Refill Information The patient has been identified by name and date of : Yes Caregiver verified no other encounters exist for this prescription request: Yes Caregiver confirmed with patient/requestor that no other refills are due, in the near future, with this provider at this time: Yes The last office visit in the department: 06-06-24 Does the patient have a future office visit with this provider/department: No Requested Prescriptions Pending Prescriptions Disp Refills magnesium oxide 400 mg magnesium tab 60 tablet 1 Sig: Take 400 mg by mouth two times a day. insulin glargine (LANTUS SOLOSTAR U-100 INSULIN) 100 unit/mL (3 mL) 51 mL 0 Sig: Inject 83 Units subcutaneously two times a day. insulin lispro (HUMALOG) 200 unit/mL (3 mL) injection 60 mL 2 Si units am, 3 units afternoon, 94 units before evening meal Melissa Clements July 31, 2024 1:02 PM [facility] 07-28-2024 Telephone encounter Note No show letter #3 printed. [facility] 07-28-2024 Miscellaneous Notes No show letter #3 printed. documented in this encounter [facility] 07-13-2024 Telephone encounter Note Images from the original note were not included. ROSA MARIA MENJIVAR (Guillen: [id number]) SARAI Rx #: [id number] Need Help? Call us at Outcome Approved today by [facility] Medicaid 2017 Your PA request for [id number] was approved for 365 days. The PA# assigned is [id number]. Effective Date: 07/13/2024 Authorization Expiration Date: 07/12/2025 Drug HumaLOG KwikPen 200UNIT/ML pen-injectors Form [place] Medicaid [employer] Electronic PA Form (2016 [facility] Original Claim Info [id number]:PA REQUIRED-CONTACT [employer] @ [phone] 100U PREF;0969W:DD SEV 3-5;9104W:DC SEV 3 DUR/PPS Pharmacy notified.they will notify pt when completed. [facility] 07-13-2024 Miscellaneous Notes Images from the original note were not included. ROSA MARIA MENJIVAR (Guillen: [id number]) SARAI Rx #: [id number] Need Help? Call us at Outcome Approved today by [place] Medicaid 2017 Your PA request for [id number] was approved for 365 days. The PA# assigned is [id number]. Effective Date: 07/13/2024 Authorization Expiration Date: 07/12/2025 Drug HumaLOG KwikPen 200UNIT/ML pen-injectors Form [place] Medicaid [email or web address] Electronic PA Form (2016 [facility]) Original Claim Info [id number]:PA REQUIRED-CONTACT [place] [employer]ST[employer] @ [phone] 100U PREF;7068W:DD SEV 3-5;7404W:DC SEV 3 DUR/PPS Pharmacy notified.they will notify pt when completed. ROSA MARIA MENJIVAR (Guillen: [id number]) - [id number] HumaLOG KwikPen 200UNIT/ML pen-injectors status: PA Request Created: July 13, 2024 [id number] Sent: July 13, 2024 Pt called in asking about the PA on this medication. I let her know the PA departments message, Unable to complete this electronically. Will contact the pharmacy to see what the issue is as the message the office is getting from PA says. I told her I would have someone from the PA department get a hold of her once they knew something. Pt states she is out of medication. Please call back. Ema Joseph, TONY Unable to complete this electronically. Will contact the pharmacy to see what the issue is as the message the office is getting from PA says Closed 07/13/2024 1:51 PM Close reason: Electronic Prior Authorization not supported. Submit via other methods. Note from payer: Electronic prior authorization not supported as days supply was not specified, please resubmit request. Please resolve and resubmit. Payer: [facility] Please note the PA response saying day supply was not specified. Specify and resubmit Electronic PA requested. Patient calls and states that she is out of medication and pharmacy had told her that she is needing prior authorization from insurance. PRIOR AUTHORIZATION Medication for Prior Authorization: insulin lispro (Humalog) Insurance Company: Medicaid Patient insurance ID number: [id number] Afia Lee RN documented in this encounter [facility] 07-13-2024 Telephone encounter Note ROSA MARIA MENJIVAR (Guillen: [id number]) - [id number] HumaLOG KwikPen 200UNIT/ML pen-injectors status: PA Request Created: July 13, 2024 [id number] Sent: July 13, 2024 [facility] 07-13-2024 Telephone encounter Note Pt called in asking about the PA on this medication. I let her know the PA departments message, Unable to complete this electronically. Will contact the pharmacy to see what the issue is as the message the office is getting from PA says. I told her I would have someone from the PA department get a hold of her once they knew something. Pt states she is out of medication. Please call back. Ema Joseph RN [facility] 07-13-2024 Telephone encounter Note Unable to complete this electronically. Will contact the pharmacy to see what the issue is as the message the office is getting from PA says Closed 07/13/2024 1:51 PM Close reason: Electronic Prior Authorization not supported. Submit via other methods. Note from payer: Electronic prior authorization not supported as days supply was not specified, please resubmit request. Please resolve and resubmit. Payer: [facility] Please note the PA response saying day supply was not specified. Specify and resubmit [facility] 07-13-2024 Telephone encounter Note Electronic PA requested. [facility] 07-13-2024 Telephone encounter Note Patient calls and states that she is out of medication and pharmacy had told her that she is needing prior authorization from insurance. PRIOR AUTHORIZATION Medication for Prior Authorization: insulin lispro (Humalog) Insurance Company: Medicaid Patient insurance ID number: [id number] Afia Lee RN [facility] 07-13-2024 Telephone encounter Note The patient has been identified by name and date of : Yes Caregiver verified no other encounters exist for this prescription request: Yes Caregiver confirmed with patient/requestor that no other refills are due, in the near future, with this provider at this time: Yes The last office visit in the department: 06/06/2024 Does the patient have a future office visit with this provider/department: Yes 07/17/2024 Requested Prescriptions Pending Prescriptions Disp Refills insulin glargine (LANTUS SOLOSTAR U-100 INSULIN) 100 unit/mL (3 mL) 6 each 3 Sig: Inject 83 Units subcutaneously two times a day. Sharon Horan LPN July 13, 2024 12:49 PM [facility] 07-13-2024 Miscellaneous Notes The patient has been identified by name and date of : Yes Caregiver verified no other encounters exist for this prescription request: Yes Caregiver confirmed with patient/requestor that no other refills are due, in the near future, with this provider at this time: Yes The last office visit in the department: 06/06/2024 Does the patient have a future office visit with this provider/department: Yes 07/17/2024 Requested Prescriptions Pending Prescriptions Disp Refills insulin glargine (LANTUS SOLOSTAR U-100 INSULIN) 100 unit/mL (3 mL) 6 each 3 Sig: Inject 83 Units subcutaneously two times a day. Sharon Horan LPN July 13, 2024 12:49 PM documented in this encounter [facility] 07-13-2024 Telephone encounter Note The patient has been identified by name and date of : Yes Caregiver verified no other encounters exist for this prescription request: Yes Caregiver confirmed with patient/requestor that no other refills are due, in the near future, with this provider at this time: Yes The last office visit in the department: 06/06/2024 Does the patient have a future office visit with this provider/department: 07/17/2024 Requested Prescriptions Pending Prescriptions Disp Refills gabapentin (NEURONTIN) 300 mg capsule 90 capsule Sig: Take 1 capsule by mouth three times a day for 30 days. furosemide (LASIX) 40 mg tablet 28 tablet Sig: Take 1 tablet by mouth once daily. busPIRone (BUSPAR) 7.5 mg tablet 90 tablet Sig: Take 1 tablet by mouth three times a day. metFORMIN ER (GLUCOPHAGE XR) 500 mg 24 hr tablet 120 tablet Sig: Take 2 tablets by mouth two times a day with meals. lisinopril-hydroCHLOROthiazide (ZESTORETIC) 20-12.5 mg per tablet 60 tablet Sig: Take 2 tablets by mouth once daily. atorvastatin (LIPITOR) 40 mg tablet 30 tablet Sig: Take 1 tablet by mouth daily at bedtime. atenolol (TENORMIN) 50 mg tablet 30 tablet Sig: Take 1 tablet by mouth once daily. Rakel Douglas RN July 13, 2024 11:19 AM [facility] 07-13-2024 Miscellaneous Notes The patient has been identified by name and date of : Yes Caregiver verified no other encounters exist for this prescription request: Yes Caregiver confirmed with patient/requestor that no other refills are due, in the near future, with this provider at this time: Yes The last office visit in the department: 06/06/2024 Does the patient have a future office visit with this provider/department: 07/17/2024 Requested Prescriptions Pending Prescriptions Disp Refills gabapentin (NEURONTIN) 300 mg capsule 90 capsule Sig: Take 1 capsule by mouth three times a day for 30 days. furosemide (LASIX) 40 mg tablet 28 tablet Sig: Take 1 tablet by mouth once daily. busPIRone (BUSPAR) 7.5 mg tablet 90 tablet Sig: Take 1 tablet by mouth three times a day. metFORMIN ER (GLUCOPHAGE XR) 500 mg 24 hr tablet 120 tablet Sig: Take 2 tablets by mouth two times a day with meals. lisinopril-hydroCHLOROthiazide (ZESTORETIC) 20-12.5 mg per tablet 60 tablet Sig: Take 2 tablets by mouth once daily. atorvastatin (LIPITOR) 40 mg tablet 30 tablet Sig: Take 1 tablet by mouth daily at bedtime. atenolol (TENORMIN) 50 mg tablet 30 tablet Sig: Take 1 tablet by mouth once daily. Rakle Douglas RN July 13, 2024 11:19 AM documented in this encounter [facility] 07-04-2024 Telephone encounter Note Called and left a voicemail for the Patient to call back and ask for a nurse to receive the providers message. Ema Joseph RN [facility] 07-04-2024 Miscellaneous Notes Called and left a voicemail for the Patient to call back and ask for a nurse to receive the providers message. Ema Joseph RN Pt was called by PSS to rescheduled missed appointment from 06/29/24. Pt was supposed to have, 4 week Follow up BP; Trulicity Follow up; 40 minutes per CH. Pt states she will have to call back in when her daughter is home to see when she could bring her in. Ema Joseph RN documented in this encounter [facility] 07-02-2024 Telephone encounter Note Pt was called by PSS to rescheduled missed appointment from 06/29/24. Pt was supposed to have, 4 week Follow up BP; Trulicity Follow up; 40 minutes per CH. Pt states she will have to call back in when her daughter is home to see when she could bring her in. Ema Joseph RN [facility] 06-26-2024 Telephone encounter Note Completed forms faxed to [facility] [place]. Becky Jimenez MA June 26, 2024 9:58 AM [facility] 06-26-2024 Miscellaneous Notes Completed forms faxed to [facility]. Becky Jimenez MA June 26, 2024 9:58 AM I did a letter. Hopefully, Lu will be back tomorrow to complete. Letter complete. Type of letter/form/fax request - Certificate of Medical Necessity: Oxygen Form received from fax on 1 floor and placed on MD desk (Mary Morales) for completion. Completed form needs to be faxed to [place] [phone] [address] [place] when form completed for processing Routed to [facility] as pt was seen in May 2024 by her. documented in this encounter [facility] 06-25-2024 Telephone encounter Note I did a letter. Hopefully, Lu will be back tomorrow to complete. [facility] 06-25-2024 Telephone encounter Note Letter complete. [facility] 06-25-2024 Telephone encounter Note Type of letter/form/fax request - Certificate of Medical Necessity: Oxygen Form received from fax on 1 floor and placed on MD desk (Mary Morales) for completion. Completed form needs to be faxed to [place] [phone] [address] to [place] when form completed for processing Routed to Lu as pt was seen in May 2024 by her. [facility] 06-15-2024 Telephone encounter Note The patient has been identified by name and date of : Yes, pharmacy Caregiver verified no other encounters exist for this prescription request: Yes Caregiver confirmed with patient/requestor that no other refills are due, in the near future, with this provider at this time: Yes The last office visit in the department: 06/06/2024 Does the patient have a future office visit with this provider/department: Yes 06/29/2024 Requested Prescriptions Pending Prescriptions Disp Refills gabapentin (NEURONTIN) 300 mg capsule 90 capsule 0 Sig: Take 1 capsule by mouth three times a day for 30 days. venlafaxine ER (EFFEXOR XR) 75 mg 24 hr capsule 30 capsule Sig: TAKE 1 CAPSULE BY MOUTH DAILY IN ADDITION TO 150 MG A DAY. Sharon Horan LPN June 15, 2024 2:54 PM [facility] 06-15-2024 Miscellaneous Notes The patient has been identified by name and date of : Yes, pharmacy Caregiver verified no other encounters exist for this prescription request: Yes Caregiver confirmed with patient/requestor that no other refills are due, in the near future, with this provider at this time: Yes The last office visit in the department: 06/06/2024 Does the patient have a future office visit with this provider/department: Yes 06/29/2024 Requested Prescriptions Pending Prescriptions Disp Refills gabapentin (NEURONTIN) 300 mg capsule 90 capsule 0 Sig: Take 1 capsule by mouth three times a day for 30 days. venlafaxine ER (EFFEXOR XR) 75 mg 24 hr capsule 30 capsule Sig: TAKE 1 CAPSULE BY MOUTH DAILY IN ADDITION TO 150 MG A DAY. Sharon Horan LPN June 15, 2024 2:54 PM documented in this encounter [facility] 06-06-2024 Note Addended by: LU GREENE on: 06/06/2024 01:04 PM Modules accepted: Level of Service [facility] 06-06-2024 Miscellaneous Notes Addended by: LU GREENE on: 06/06/2024 01:04 PM Modules accepted: Level of Service documented in this encounter [facility] 06-06-2024 Note HNO ID: [id number] Author: LU GREENE APRN.CNP Service: ? Author Type: Nurse Practitioner Type: Progress Notes Filed: 06/06/2024 13:04 Note Text: This is a 58 year old female who presents today with: Rosa Maria is a 58-year-old female with a history of DM, HTN, and anxiety, presenting for a medication check and evaluation of lower extremity skin changes. HISTORY OF PRESENT ILLNESS: Lower Extremity Skin Changes: - Pruritic, horrible looking bumps on legs x1 year. - Believes the bumps are related to water retention. - Using Lac-Hydrin cream for dry skin. - Elevating legs more frequently. - Denies shaving legs in affected areas. - Reports seeping from the bumps. - Reports awful pain and numbness in feet. Diabetes Mellitus: - Wears CGM - Reports higher blood glucose levels since discontinuing Byetta. - rare symptoms of hypoglycemia. - Increased polydipsia and polyuria. Anxiety and Depression: - Taking Effexor and BuSpar. - Experiencing sad spells and depression. - Reports increased anxiety about leaving the house and riding in cars. - Believes anxiety may be related to fear of developing dementia. - Requests increase in BuSpar dosage. Hypertension: - Reports recent elevated blood pressure readings. - Taking atenolol, lisinopril-hydrochlorothiazide, and spironolactone. - Next appointment with Dr. Macias in July or August. Menstrual Irregularities: - Still experiencing menstrual bleeding monthly. - Reports ovarian pain and mood swings. - Believes she may be going through menopause. - Last Pap smear was a long time ago. COPD Wears home O2. Follows w/ pulmonology. PAST MEDICAL HISTORY: PAST MEDICAL HISTORY Diagnosis Date Chronic hypoxemic [...] ABDOMEN W/ AND W/O CONTRAST 10/16/2021 10/16/2021 [facility] MRI w/wo IVCON: no patterns to suggest malignancy on enhancement. Normal portal and hepatic veins. Staghorn calculus in the left kidney upper pole, 3cm simple cyst attached to gallbladder duct, simple small liver cyst inferior right lobe, right adrenal adenoma with benign characteristics. OTHER right lower portion of kidney removed in 2009 PAST SURGICAL HISTORY OF Repair of right arm fx as child ALLERGIES Jardiance [Empagliflozin]; Morphine; Tetanus And Diphtheria Toxoids, Adsorbed, Adult; and Toradol [Ketorolac Tromethamine] MEDICATIONS Current Outpatient Medications Medication Sig omeprazole (PRILOSEC) 20 mg capsule Take 1 capsule by mouth daily before breakfast. 1/2 hr before meal. furosemide (LASIX) 40 mg tablet Take 1 tablet by mouth once daily. busPIRone (BUSPAR) 7.5 mg tablet Take 1 tablet by mouth three times a day. atenolol (TENORMIN) 25 mg tablet Take 1 tablet by mouth once daily. Take with 50 mg tablet for total daily dose of 75 mg. exenatide (BYETTA) 10 mcg/dose 2.4 ml subcutaneous pen injector Inject dose 5-60 prior to breakfast AND dinner. Minimum 6 hours between meals. insulin lispro (HUMALOG) 200 unit/mL (3 mL) injection 63 units am, 3 units afternoon, 94 units before evening meal insulin lispro (HUMALOG) 200 unit/mL (3 mL) injection 63 units am, 3 units afternoon, 94 units before evening meal spironolactone (ALDACTONE) 25 mg tablet Take 25 mg by mouth once daily. mometasone-formoterol (DULERA) 50-5 mcg/actuation HFA aerosol inhaler Inhale 2 puffs as instructed two times a day. atenolol (TENORMIN) 50 mg tablet Take 1 tablet by mouth once daily. atorvastatin (LIPITOR) 40 mg tablet Take 1 tablet by mouth daily at bedtime. lisinopril-hydroCHLOROthiazide (ZESTORETIC) 20-12.5 mg per tablet Take 2 tablets by mouth once daily. metFORMIN ER (GLUCOPHAGE XR) 500 mg 24 hr tablet Take 2 tablets by mouth two times a day with meals. gabapentin (NEURONTIN) 300 mg capsule Take 1 capsule by mouth three times a day for 30 days. Appointment needed for further refills. venlafaxine ER (EFFEXOR XR) 75 mg 24 hr capsule TAKE 1 CAPSULE BY MOUTH DAILY IN ADDITION TO 150 MG A DAY. ammonium lactate (LAC-HYDRIN) 12 % cream Apply 1 application to affected area as needed. Insulin [place], Disposable, (UL (more content not included)... [facility] 06-06-2024 History of Present illness Narrative This is a 58 year old female who presents today with: Rosa Maria is a 58-year-old female with a history of DM, HTN, and anxiety, presenting for a medication check and evaluation of lower extremity skin changes. HISTORY OF PRESENT ILLNESS: Lower Extremity Skin Changes: - Pruritic, horrible looking bumps on legs x1 year. - Believes the bumps are related to water retention. - Using Lac-Hydrin cream for dry skin. - Elevating legs more frequently. - Denies shaving legs in affected areas. - Reports seeping from the bumps. - Reports awful pain and numbness in feet. Diabetes Mellitus: - Wears CGM - Reports higher blood glucose levels since discontinuing Byetta. - rare symptoms of hypoglycemia. - Increased polydipsia and polyuria. Anxiety and Depression: - Taking Effexor and BuSpar. - Experiencing sad spells and depression. - Reports increased anxiety about leaving the house and riding in cars. - Believes anxiety may be related to fear of developing dementia. - Requests increase in BuSpar dosage. Hypertension: - Reports recent elevated blood pressure readings. - Taking atenolol, lisinopril-hydrochlorothiazide, and spironolactone. - Next appointment with Dr. Macias in July or August. Menstrual Irregularities: - Still experiencing menstrual bleeding monthly. - Reports ovarian pain and mood swings. - Believes she may be going through menopause. - Last Pap smear was a long time ago. COPD Wears home O2. Follows w/ pulmonology. PAST MEDICAL HISTORY: PAST MEDICAL HISTORY Diagnosis Date Chronic hypoxemic [...] ABDOMEN W/ & W/O CONTRAST 10/16/2021 10/16/2021 [facility] MRI w/wo IVCON: no patterns to suggest malignancy on enhancement. Normal portal and hepatic veins. Staghorn calculus in the left kidney upper pole, 3cm simple cyst attached to gallbladder duct, simple small liver cyst inferior right lobe, right adrenal adenoma with benign characteristics. OTHER right lower portion of kidney removed in 2009 PAST SURGICAL HISTORY OF Repair of right arm fx as child ALLERGIES Jardiance [Empagliflozin]; Morphine; Tetanus And Diphtheria Toxoids, Adsorbed, Adult; and Toradol [Ketorolac Tromethamine] MEDICATIONS Current Outpatient Medications Medication Sig omeprazole (PRILOSEC) 20 mg capsule Take 1 capsule by mouth daily before breakfast. 1/2 hr before meal. furosemide (LASIX) 40 mg tablet Take 1 tablet by mouth once daily. busPIRone (BUSPAR) 7.5 mg tablet Take 1 tablet by mouth three times a day. atenolol (TENORMIN) 25 mg tablet Take 1 tablet by mouth once daily. Take with 50 mg tablet for total daily dose of 75 mg. exenatide (BYETTA) 10 mcg/dose 2.4 ml subcutaneous pen injector Inject dose 5-60 prior to breakfast & dinner. Minimum 6 hours between meals. insulin lispro (HUMALOG) 200 unit/mL (3 mL) injection 63 units am, 3 units afternoon, 94 units before evening meal insulin lispro (HUMALOG) 200 unit/mL (3 mL) injection 63 units am, 3 units afternoon, 94 units before evening meal spironolactone (ALDACTONE) 25 mg tablet Take 25 mg by mouth once daily. mometasone-formoterol (DULERA) 50-5 mcg/actuation HFA aerosol inhaler Inhale 2 puffs as instructed two times a day. atenolol (TENORMIN) 50 mg tablet Take 1 tablet by mouth once daily. atorvastatin (LIPITOR) 40 mg tablet Take 1 tablet by mouth daily at bedtime. lisinopril-hydroCHLOROthiazide (ZESTORETIC) 20-12.5 mg per tablet Take 2 tablets by mouth once daily. metFORMIN ER (GLUCOPHAGE XR) 500 mg 24 hr tablet Take 2 tablets by mouth two times a day with meals. gabapentin (NEURONTIN) 300 mg capsule Take 1 capsule by mouth three times a day for 30 days. Appointment needed for further refills. venlafaxine ER (EFFEXOR XR) 75 mg 24 hr capsule TAKE 1 CAPSULE BY MOUTH DAILY IN ADDITION TO 150 MG A DAY. ammonium lactate (LAC-HYDRIN) 12 % cream Apply 1 application to affected area as needed. Insulin [place], Disposable, (ULTICARE PEN NEEDLE) 29 gauge x 1/2 USE FIVE TIMES A DAY venlafaxine ER (EFFEXOR XR) 150 mg 24 hr capsule Take 1 capsule by mouth once daily. flash glucose sensor (FREESTYLE TERRELL 2 SENSOR) kit Use to check blood glucose 4 times daily. insulin glargine (LANTUS SOLOSTAR U-100 INSULIN) 100 unit/mL (3 mL) Inject 83 Units subcutaneously two times a day. flash glucose scanning reader (FREESTYLE TERRELL 2 READER) 1 Each four times daily. albuterol HFA (PROVENTIL HFA, VENTOLIN HFA) 90 mcg/actuation inhaler Inhale 2 Puffs as instructed every 4 hours as needed. blood sugar diagnostic (BLOOD GLUCOSE TEST) test strip Test blood sugar(s) 2 times daily: fasting am and 2 hour after largest meal. Dx: Type 2 DM - Controlled E11.9 Insulin: Yes potassium chloride (K-TAB) 10 mEq tablet Take 2 tablets by mouth daily with breakfast. Lancets lancets Test blood sugar(s) 2 times daily. Dx: Type 2 DM - Uncontrolled E11.65 Insulin: Yes CPAP 11 cm via nasal mask with 20 min ramp and humidification. OXYGEN, HOME THERAPY, 2 L/min by Nasal Cannula route continuous. COMPOUNDED PRESCRIPTION C-PAP MASK HOSES, FILTERS glucose 4 gram chewable tablet Take 4 tablets by mouth as needed. For sugar less than 70 COMPOUNDED PRESCRIPTION COMPRESSION STOCKINGS 20-30 mm Knee high. DX: venous insufficiency COMPOUNDED PRESCRIPTION cpap supplies: sleep apnea COMPOUNDED PRESCRIPTION CPAP mask No current facility-administered medications for this visit. FAMILY HISTORY Problem Relation Age of Onset COPD Mother Ischemic Heart Disease Father Ischemic Heart Disease Sister Colon Cancer Maternal Grandfather Diabetes Maternal Aunt Diabetes Paternal Aunt Breast Cancer Other Maternal cousin Social History Tobacco Use Smoking status: Every Day Current packs/day: 2.00 Average packs/day: 2.0 packs/day for 44.5 years (89.0 ttl pk-yrs) Types: Cigarettes Start date: 12/06/1979 Smokeless tobacco: Never Tobacco comments: Down to 2 cigarettes per day 05/30/24 Vaping Use Vaping status: Never Used Substance Use Topics Alcohol use: No Drug use: No EXAM: BP 148/88 Pulse 97 Resp 18 Wt (!) 155.6 kg (343 lb) LMP 06/12/2015 SpO2 94% BMI 58.88 kg/m PHYSICAL EXAM: General Appearance: Well appearing, alert, in no acute distress, well-hydrated, well nourished.. Skin: BLE with bumpy skin texture and deep red purplish discoloration R>L. Slow cap refill. Head: Normocephalic Eyes: Anicteric sclera. Lungs: Lungs clear to auscultation. No wheezing, rhonchi, rales.. Heart: RRR without murmur, gallop, or rubs. No ectopy. Abdomen: Abdomen soft, obese, non-tender. Bowel sounds normal. Extremities: see above. Neurologic: Gait w/ walker. Feet:Shoes and socks removed, No deformities, ulcers, calluses, trace DP distal pulses, not sensitive to monofilament, and vibratory perception decreased. ASSESSMENT/PLAN 1. Essential hypertension (I10) 2. Hypertension, essential (I10) - Blood pressure readings have been elevated recently. - Increased atenolol dosage by adding a 25 mg tablet to the current 50 mg, totaling 75 mg daily. - Continue lisinopril-hydrochlorothiazide and spironolactone. - Follow-up in one month to recheck blood pressure. 3. Type 2 diabetes mellitus without complication, with long-term current use of insulin (HCC) (E11.9) - Blood glucose levels have been elevated since discontinuation of Byetta. - Resumed Byetta prescription; investigating availability issues. - Continue Lantus 83 units BID and Humalog 63 units in the morning, 3 units in the afternoon, and 94 units in the evening. - Ordered A1c and comprehensive metabolic panel (CMP) to monitor glucose control and kidney function. 4. Encounter for gynecological examination without abnormal finding (Z01.419) - Irregular menstrual bleeding; last Pap smear was a long time ago. - Ordered gynecological examination to evaluate for any underlying issues. 5. Anxiety (F41.9) - Experiencing increased anxiety and reluctance to leave the house. - Increased Buspar dosage from 5 mg TID to 7.5 mg TID. - Continue Effexor 150 mg and 75 mg daily. 6. Mixed hyperlipidemia (E78.2) - Continue atorvastatin. - Ordered lipid panel to monitor cholesterol levels. 7. Gastroesophageal reflux disease, unspecified whether esophagitis present (K21.9) - Refilled omeprazole prescription. 8. Venous insufficiency (I87.2) - Chronic edema and skin changes with pruritus and serous drainage. - Continue current use of Lac-Hydrin cream. - Advised to elevate legs to reduce edema. - Educated on signs of infection: increased redness, pain, fever, and chills; instructed to seek medical attention if these occur. - Ordered vascular studies to assess circulation in the legs. 9. Encounter for immunization (Z23) - Administered COVID-19 vaccine ([facility]I). - Discussed shingles vaccine; advised to check insurance coverage for administration location. - Recommended flu vaccine in November. 10. Visit for screening mammogram (Z12.31) - Ordered screening mammogram. 11. COPD Continue per pulmonology. Discussed treatment plan and patient voices understanding. Patient's questions answered appropriately. Medications and potential side effects were discussed and patient voices understanding. Return to the office as scheduled or as needed for worsening/no improvement. Lu Greene APRN.CNP Recording using ambient AppFirst software for draft documentation of the visit was discussed with the patient/authorized community relations representative; all questions welcomed and answered. Patient/authorized community relations representative agreed to proceed I spent a total of 45 minutes on the date of the service which included preparing to see the patient, [id number] patient care, completing clinical documentation, obtaining and/or reviewing separately obtained history, performing a medically appropriate examination, ordering medications, tests, or procedures, and communicating results to the patient/family/caregiver. documented in this encounter [facility] 06-06-2024 Instructions Lu Greene APRN.CNP - 06/06/2024 10:37 AM EDT Increase your atenolol dosage by taking an additional 25 mg with your current 50 mg dose (total 75 mg) as discussed; we ll recheck your blood pressure in one month to see how it is working. Increase your BuSpar dose from 5 mg three times a day to 7.5 mg three times a day for better anxiety control. A COVID-19 (NGI) shot was given today. Lab orders have been sent for an A1c, cholesterol panel, CBC, CMP (electrolytes, kidney and liver function, glucose), magnesium level, and a stool screening. Please get these blood tests done as soon as possible. An imaging study of your legs has been ordered to evaluate circulation. Please schedule and complete this test. Refill orders have been sent for your omeprazole and Lasix. Also, the Byetta prescription has been re-sent to the pharmacy so we can address your blood sugar control. Continue your insulin regimen (Lantus and Humalog) as previously instructed. A gynecology referral has been ordered for a Pap smear and to schedule a mammogram. Please arrange to complete these as recommended. Verify with your insurance about the shingles vaccine coverage at the doctor s office. If confirmed, we will administer the shingles vaccine at your next visit. Monitor your legs for any signs of infection such as increased redness, pain, fever, or chills; if these occur, get checked promptly. Please follow these steps after leaving the clinic. Recheck in 1 month. documented in this encounter [facility] 06-05-2024 Telephone encounter Note Do not see where byetta stopped so see where patient was advised needing f/u and than canceled several times. Patient aware to keep appointment tomorrow Patti Panda MA [facility] 06-05-2024 Miscellaneous Notes Do not see where byetta stopped so see where patient was advised needing f/u and than canceled several times. Patient aware to keep appointment tomorrow Patti Panda MA Rosa Maria is calling Samson Hogan MD today with concern regarding Medication Problem Her Byetta is discontinued. She is coming in tomorrow 06-06-24 to discuss renewal, but will need to discuss replacement. Patient has been identified by name and birthdate. Duration of symptoms: N/A Person calling: self Call patient at: at home [phone] (home) [phone] (cell) Was an appointment scheduled: Yes: Date/Time: 06-06-24 Closing statement: Pilar Ayala documented in this encounter [facility] 06-05-2024 Telephone encounter Note Rosa Maria is calling Samosn Hogan MD today with concern regarding Medication Problem Her Byetta is discontinued. She is coming in tomorrow 06-06-24 to discuss renewal, but will need to discuss replacement. Patient has been identified by name and birthdate. Duration of symptoms: N/A Person calling: self Call patient at: at home [phone] (home) [phone] (cell) Was an appointment scheduled: Yes: Date/Time: 06-06-24 Closing statement: Pilar Ayala [facility] Work Phone: 05-30-2024 Instructions Pilar Cardoza PA-C - 05/30/2024 9:45 AM EDT Dulera 2 puffs twice daily every day for 1 month. Rinse mouth after each use to help prevent oral thrush. If you do not notice a difference in SOB, then you may discontinue and use Albuterol as needed. documented in this encounter [facility] 05-30-2024 Note HNO ID: [id number] Author: ARMANI GORDILLO RPFT Service: ? Author Type: Respiratory Therapist Type: Procedures Filed: 05/30/2024 09:26 Note Text: RESPIRATORY THERAPY OXIMETRY WITH AMBULATION Oximetry with Ambulation Test for This Encounter O2 Device O2 Adapter NC O2 Flow SpO2% HR Activity Ft Walked (ft) Time (min) Avg Speed (MPH) R/A 92 111 Resting R/A 88 123 Walking, usual pace 100 1.3 0.87 NC 2 95 109 Resting NC 2 92 154 Walking, usual pace 130 1.8 0.82 General Information Pulse Oximetry Site Total Time Spent Walking Assistance/O2 Supply Carrier Forehead 30 Wheeled Walker NAME: JUAN Ndiaye PATIENT NAME: Rosa Maria Menjivar DATE: May 30, 2024 TIME: 9:26 AM Comment: Patient was unable to walk any further. [facility] 05-30-2024 Procedure note Associated Ord er(s): OXIMETRY WITH AMBULATION RESPIRATORY THERAPY OXIMETRY WITH AMBULATION Oximetry with Ambulation Test for This Encounter O2 Device O2 Adapter NC O2 Flow SpO2% HR Activity Ft Walked (ft) Time (min) Avg Speed (MPH) R/A 92 111 Resting R/A 88 123 Walking, usual pace 100 1.3 0.87 NC 2 95 109 Resting NC 2 92 154 Walking, usual pace 130 1.8 0.82 General Information Pulse Oximetry Site Total Time Spent Walking Assistance/O2 Supply Carrier Forehead 30 Wheeled Walker NAME: Armani GordilloJUAN PATIENT NAME: Rosa Maria Menjivar DATE: May 30, 2024 TIME: 9:26 AM Comment: Patient was unable to walk any further. [facility] 05-30-2024 Procedure note Associated Ord er(s): OXIMETRY WITH AMBULATION RESPIRATORY THERAPY OXIMETRY WITH AMBULATION Oximetry with Ambulation Test for This Encounter O2 Device O2 Adapter NC O2 Flow SpO2% HR Activity Ft Walked (ft) Time (min) Avg Speed (MPH) R/A 92 111 Resting R/A 88 123 Walking, usual pace 100 1.3 0.87 NC 2 95 109 Resting NC 2 92 154 Walking, usual pace 130 1.8 0.82 General Information Pulse Oximetry Site Total Time Spent Walking Assistance/O2 Supply Carrier Forehead 30 Wheeled Walker NAME: Armani Gordillo RENETTAHARJINDER PATIENT NAME: Rosa Maria Menjivar DATE: May 30, 2024 TIME: 9:26 AM Comment: Patient was unable to walk any further. documented in this encounter [facility] 05-30-2024 Note HNO ID: [id number] Author: PILAR CARDOZA PA-C Service: ? Author Type: Physician Test Bore Helper Type: Progress Notes Filed: 05/31/2024 16:55 Note Text: Patient: Rosa Maria Menjivar PCP: Lu Greene APRN.CNP CC: Follow up HPI: Rosa Maria Menjivar 58 year old morbidly obese female, current daily smoker with PMH significant for COPD, Chronic hypoxemic respiratory failure mainly due to obesity, DM2, HLD, HTN, RCC s/p partial right nephrectomy, and KELLIE on CPAP. Last office visit 08/12/2023. Patient has no showed or cancelled multiple appointments since that time (>3 appointments). Current maintenance therapy with as needed Albuterol. Today, patient reports minimal cough with occasional white sputum. No hemoptysis. No wheezing. Exertional dyspnea with minimal effort. Using walker to ambulate at home. Is very limited by back pain. No fevers, chills, or night sweats. No unintended weight loss. No GERD/heartburn. No recent hospitalizations or ED visits or upper respiratory infections. Current wearing 3L supplemental oxygen continuously. Patient has not been wearing CPAP. States she is sleeping in recliner and sleeps well. DME: Miriam Smoking 2 cigarettes a day (down from 3 ppd). Chewing nicotine gum. PAST MEDICAL HISTORY Diagnosis Date Chronic hypoxemic respiratory failure ([facility]) 07/16/2021 Due to morbid obesity. COPD (chronic obstructive pulmonary disease) ([facility]) with chronic hypoxemic respiratory failure; on oxygen 2 liters continuously Degenerative disc disease Depression Diabetes mellitus type II Dyslipidemia Hypertension IBS (irritable bowel syndrome) Microalbuminuria on adwoa inhibitor Obesity Palpitations Panic disorder Renal calculus Renal cell carcinoma of right kidney ([facility]) 2009 S/P partial right nephrectomy Sleep apnea uses CPAP Tobacco abuse Urinary calculus, unspecified Renal stones Allergies: Jardiance [Empaglif* Itching Comment:Pt reported yeast infection Morphine Itching Tetanus And Diphthe* Other: See Comments Comment:? Reactive lymphadenopathy Toradol [Ketorolac * Comment:Heart racing and nightmares atenolol (TENORMIN) 50 mg tablet Take 1 tablet by mouth once daily. atorvastatin (LIPITOR) 40 mg tablet Take 1 tablet by mouth daily at bedtime. lisinopril-hydroCHLOROthiazide (ZESTORETIC) 20-12.5 mg per tablet Take 2 tablets by mouth once daily. metFORMIN ER (GLUCOPHAGE XR) 500 mg 24 hr tablet Take 2 tablets by mouth two times a day with meals. busPIRone (BUSPAR) 5 mg tablet Take 1 tablet by mouth three times a day. furosemide (LASIX) 40 mg tablet Take 1 tablet by mouth once daily. gabapentin (NEURONTIN) 300 mg capsule Take 1 capsule by mouth three times a day for 30 days. Appointment needed for further refills. venlafaxine ER (EFFEXOR XR) 75 mg 24 hr capsule TAKE 1 CAPSULE BY MOUTH DAILY IN ADDITION TO 150 MG A DAY. ammonium lactate (LAC-HYDRIN) 12 % cream Apply 1 application to affected area as needed. insulin lispro (HUMALOG) 200 unit/mL (3 mL) injection 63 units am, 3 units afternoon, 93 units before evening meal Insulin [place], Disposable, (ULTICARE PEN NEEDLE) 29 gauge x 1/2 USE FIVE TIMES A DAY insulin lispro (HUMALOG) 200 unit/mL (3 mL) injection 63 units am, 3 units afternoon, 93 units before evening meal venlafaxine ER (EFFEXOR XR) 150 mg 24 hr capsule Take 1 capsule by mouth once daily. flash glucose sensor (InventicSTYLE TERRELL 2 SENSOR) kit Use to check blood glucose 4 times daily. omeprazole (PRILOSEC) 20 mg capsule Take 1 capsule by mouth daily before breakfast. 1/2 hr before meal. insulin glargine (LANTUS SOLOSTAR U-100 INSULIN) 100 unit/mL (3 mL) Inject 83 Units subcutaneously two times a day. flash glucose scanning reader (InventicSTYLE TERRELL 2 READER) 1 Each four times daily. exenatide (BYETTA) 10 mcg/dose(250 mcg/mL) 2.4 mL injection Inject dose 5-60 prior to breakfast AND dinner. Minimum 6 hours between meals. albuterol HFA (PROVENTIL HFA, VENTOLIN HFA) 90 mcg/actuation inhaler Inhale 2 Puffs as instructed every 4 hours as needed. blood sugar diagnostic (BLOOD GLUCOSE TEST) test strip Test blood sugar(s) 2 times daily: fasting am and 2 hour after largest meal. Dx: Type 2 DM - Controlled E11.9 Insulin: Yes potassium chloride (K-TAB) 10 mEq tablet Take 2 tablets by mouth daily with breakfast. Lancets lancets Test blood sugar(s) 2 times daily. Dx: Type 2 DM - Uncontrolled E11.65 Insulin: Yes CPAP 11 cm via nasal mask with 20 min ramp and humidification. OXYGEN, HOME THERAPY, 2 L/min by Nasal Cannula route continuous. COMPOUNDED PRESCRIPTION C-PAP MASK HOSES, FILTERS glucose 4 gram chewable tablet Take 4 tablets by mouth as needed. For sugar less than 70 COMPOUNDED PRESCRIPTION COMPRESSION STOCKINGS 20-30 mm Knee high. DX: venous insufficiency COMPOUNDED PRESCRIPTION cpap supplies: sleep apnea COMPOUNDED PRESCRIPTION CPAP mask Social History Tobacco Use Sm (more content not included)... [facility] 05-30-2024 History of Present illness Narrative Images from the original note were not included. Patient: Rosa Mraia Menjivar PCP: Lu Greene APRN.RANDALL CC: Follow up HPI: Rosa Maria Menjivar 58 year old morbidly obese female, current daily smoker with PMH significant for COPD, Chronic hypoxemic respiratory failure mainly due to obesity, DM2, HLD, HTN, RCC s/p partial right nephrectomy, and KELLIE on CPAP. Last office visit 08/12/2023. Patient has no showed or cancelled multiple appointments since that time (>3 appointments). Current maintenance therapy with as needed Albuterol. Today, patient reports minimal cough with occasional white sputum. No hemoptysis. No wheezing. Exertional dyspnea with minimal effort. Using walker to ambulate at home. Is very limited by back pain. No fevers, chills, or night sweats. No unintended weight loss. No GERD/heartburn. No recent hospitalizations or ED visits or upper respiratory infections. Current wearing 3L supplemental oxygen continuously. Patient has not been wearing CPAP. States she is sleeping in recliner and sleeps well. DME: Miriam Smoking 2 cigarettes a day (down from 3 ppd). Chewing nicotine gum. PAST MEDICAL HISTORY Diagnosis Date Chronic hypoxemic [...] Toradol [Ketorolac * Comment:Heart racing and nightmares atenolol (TENORMIN) 50 mg tablet Take 1 tablet by mouth once daily. atorvastatin (LIPITOR) 40 mg tablet Take 1 tablet by mouth daily at bedtime. lisinopril-hydroCHLOROthiazide (ZESTORETIC) 20-12.5 mg per tablet Take 2 tablets by mouth once daily. metFORMIN ER (GLUCOPHAGE XR) 500 mg 24 hr tablet Take 2 tablets by mouth two times a day with meals. busPIRone (BUSPAR) 5 mg tablet Take 1 tablet by mouth three times a day. furosemide (LASIX) 40 mg tablet Take 1 tablet by mouth once daily. gabapentin (NEURONTIN) 300 mg capsule Take 1 capsule by mouth three times a day for 30 days. Appointment needed for further refills. venlafaxine ER (EFFEXOR XR) 75 mg 24 hr capsule TAKE 1 CAPSULE BY MOUTH DAILY IN ADDITION TO 150 MG A DAY. ammonium lactate (LAC-HYDRIN) 12 % cream Apply 1 application to affected area as needed. insulin lispro (HUMALOG) 200 unit/mL (3 mL) injection 63 units am, 3 units afternoon, 93 units before evening meal Insulin [place], Disposable, (ULTICARE PEN NEEDLE) 29 gauge x 1/2 USE FIVE TIMES A DAY insulin lispro (HUMALOG) 200 unit/mL (3 mL) injection 63 units am, 3 units afternoon, 93 units before evening meal venlafaxine ER (EFFEXOR XR) 150 mg 24 hr capsule Take 1 capsule by mouth once daily. flash glucose sensor (FREESTYLE TERRELL 2 SENSOR) kit Use to check blood glucose 4 times daily. omeprazole (PRILOSEC) 20 mg capsule Take 1 capsule by mouth daily before breakfast. 1/2 hr before meal. insulin glargine (LANTUS SOLOSTAR U-100 INSULIN) 100 unit/mL (3 mL) Inject 83 Units subcutaneously two times a day. flash glucose scanning reader (FREESTYLE TERRELL 2 READER) 1 Each four times daily. exenatide (BYETTA) 10 mcg/dose(250 mcg/mL) 2.4 mL injection Inject dose 5-60 prior to breakfast & dinner. Minimum 6 hours between meals. albuterol HFA (PROVENTIL HFA, VENTOLIN HFA) 90 mcg/actuation inhaler Inhale 2 Puffs as instructed every 4 hours as needed. blood sugar diagnostic (BLOOD GLUCOSE TEST) test strip Test blood sugar(s) 2 times daily: fasting am and 2 hour after largest meal. Dx: Type 2 DM - Controlled E11.9 Insulin: Yes potassium chloride (K-TAB) 10 mEq tablet Take 2 tablets by mouth daily with breakfast. Lancets lancets Test blood sugar(s) 2 times daily. Dx: Type 2 DM - Uncontrolled E11.65 Insulin: Yes CPAP 11 cm via nasal mask with 20 min ramp and humidification. OXYGEN, HOME THERAPY, 2 L/min by Nasal Cannula route continuous. COMPOUNDED PRESCRIPTION C-PAP MASK HOSES, FILTERS glucose 4 gram chewable tablet Take 4 tablets by mouth as needed. For sugar less than 70 COMPOUNDED PRESCRIPTION COMPRESSION STOCKINGS 20-30 mm Knee high. DX: venous insufficiency COMPOUNDED PRESCRIPTION cpap supplies: sleep apnea COMPOUNDED PRESCRIPTION CPAP mask Social History Tobacco Use Smoking status: Every Day Current packs/day: 2.00 Average packs/day: 2.0 packs/day for 44.5 years (89.0 ttl pk-yrs) Types: Cigarettes Start date: 12/06/1979 Smokeless tobacco: Never Tobacco comments: Down to one ppd Vaping Use Vaping status: Never Used Substance Use Topics Alcohol use: No Drug use: No Family History Problem Relation Age of Onset COPD Mother Ischemic Heart Disease Father Ischemic Heart Disease Sister Colon Cancer Maternal Grandfather Diabetes Maternal Aunt Diabetes Paternal Aunt Breast Cancer Other Maternal cousin PAST SURGICAL HISTORY Procedure Laterality Date APPENDECTOMY 09/02/2019 DILATION & CURETTAGE DX&/THER NONOBSTETRIC Dilation & curettage LAPAROSCOPY SURG CHOLECYSTECTOMY 2003 Cholecystectomy, lap LITHOTRIPSY XTRCORP SHOCK WAVE Lithotripsy x 2 Stents x 3 MRI ABDOMEN W/ & W/O CONTRAST 10/16/2021 10/16/2021 [facility] MRI w/wo IVCON: no patterns to suggest malignancy on enhancement. Normal portal and hepatic veins. Staghorn calculus in the left kidney upper pole, 3cm simple cyst attached to gallbladder duct, simple small liver cyst inferior right lobe, right adrenal adenoma with benign characteristics. OTHER right lower portion of kidney removed in 2009 PAST SURGICAL HISTORY OF Repair of right arm fx as child I reviewed the past medical history, family history, social history and surgical history with changes noted above and updated in EMR. IMMUNIZATIONS Immunization History Administered Date(s) Administered COVID-19 original vaccine, age 12+ yr, monovalent ([employer] Midstream - [facility] TOP) 06/16/2021 COVID-19 original vaccine, age 12+ yr, monovalent (Nuevo Midstream - PURPLE TOP) 10/23/2020 11/20/2020 COVID-19 vaccine, age 12+ yr (Nuevo Midstream [facility]) 06/09/2023 influenza (IIV3) vaccine, age 6 mo - 64 yr, trivalent (AFLURIA, FLULAVAL, FLUVIRIN, FLUZONE) 12/10/2013 influenza (IIV3) vaccine, trivalent (AFLURIA, FLULAVAL, FLUVIRIN, FLUZONE) 12/14/2014 influenza (IIV3) vaccine, trivalent, PF (AFLURIA, FLUARIX, FLULAVAL, FLUVIRIN, FLUZONE) 04/29/2020 influenza (IIV4) vaccine, age 6 mo - 64 yr, quadrivalent (AFLURIA, FLULAVAL, FLUZONE) 12/14/2014 02/04/2016 01/17/2017 04/10/2018 12/27/2018 influenza vaccine, unspecified formulation 11/10/2012 pneumococcal polysaccharide (PPV23) vaccine, 23 valent (PNEUMOVAX 23) 02/04/2016 ROS: All other systems reviewed as negative except for what is noted in HPI and review of systems. PHYSICAL EXAMINATION: BP (P) 142/82 Pulse (P) 111 Resp (P) 18 Wt (!) 157.9 kg (348 lb) LMP 06/12/2015 SpO2 (P) 92% BMI 59.73 kg/m O2: 3L NC Gen: No acute distress. Cooperative with examination. Morbidly obese HEENT: Normocephalic. Sclera, conjunctiva clear. Oral hygeine and dentition adequate. Resp: No stridor, accessory respiratory muscle use, supra-sternal or intercostal retractions. Diminished breath sounds. No wheezes, crackles. CV: Regular rythm. Heart tones normal. Radial pulses normal. Ext: Warm and well perfused. Chronic venous stasis bilateral lower extremity. Neuro: Mental status normal. Affect normal. No tremor. DATA: Laboratory and Imaging: Oximetry, 05/30/2024 Oximetry with Ambulation Test for This Encounter O2 Device O2 Adapter NC O2 Flow SpO2% HR Activity Ft Walked (ft) Time (min) Avg Speed (MPH) R/A 92 111 Resting R/A 88 123 Walking, usual pace 100 1.3 0.87 NC 2 95 109 Resting NC 2 92 154 Walking, usual pace 130 1.8 0.82 PFT, 05/30/2024 Arterial blood gas: pH, Arterial Date Value Ref Range Status 08/26/2009 7.40 7.35 - 7.45 Final pCO2, Arterial Date Value Ref Range Status 08/26/2009 40 34 - 46 mm Hg Final pO2, Arterial Date Value Ref Range Status 08/26/2009 285 (H) 85 - 95 mm Hg Final Bicarbonate, Arterial Date Value Ref Range Status 08/26/2009 24 22 - 26 mmol/L Final Base Excess, Arterial Date Value Ref Range Status 08/26/2009 0 mmol/L Final Lactate Date Value Ref Range Status 08/26/2009 1.3 0.5 - 2.2 mmol/L Final CT Chest other findings: Last CT Chest - Impression Only CT CHEST WO IVCON Exam End: 06/09/2023 12:02 PM (Final result) Impression: IMPRESSION: 1. Small nodular ground glass opacities in the right lower lobe are stable from the most recent comparison but are decreased in size from 2020 indicating infectious/inflammatory process. No new pulmonary nodule. 2. Mediastinal lymphadenopathy is not significantly changed. 3. Remainder of the findings are also unchanged. E... Last XR Chest - Impression Only XR CHEST 2V FRONTAL/LAT Exam End: 09/10/2019 11:47 AM (Final result) Impression: IMPRESSION: No acute radiographic abnormality. Stable mild diffuse interstitial prominence .No developing nodule or mass. Cardiomegaly Night Shift Supervisor: BLANE ... ASSESSMENT/PLAN: 1. Chronic obstructive pulmonary disease, unspecified COPD type (HCC) - ICD9: 496, ICD10: J44.9 (primary diagnosis) PFTs today do not show obstruction, however, most likely underestimated due to restriction. Patient is willing to try ICS/LABA to see if it improves symptoms. - MOMETASONE-FORMOTEROL HFA 50 MCG-5 MCG/ACTUATION AEROSOL INHALER 2. Lung nodules - ICD9: 793.19, ICD10: R91.[address] chest 05/[address] chest now. - CT CHEST WO IVCON 3. Obstructive sleep apnea syndrome - ICD9: 327.23, ICD10: G47.33 Patient is non-compliant with CPAP. Discussed the risks and consequences due to untreated sleep apnea. 4. Cigarette smoker - ICD9: 305.1, ICD10: F17.210 - Cessation encouraged. - Physiologic and physical aspects of tobacco addiction as well as strategies for quitting were discussed. - Counseling was given focusing on the harmful effects of this addiction especially given the patient's medical condition(s) which will be worsened because of the chemicals in tobacco. Congratulated patient on decreasing smoking. Encouraged her to quit completely. 5. Morbid obesity (HCC) - ICD9: 278.01, ICD10: E66.01 BMI 59.73 Weight loss encouraged. Portions of this documentation were copied and pasted from previous office visit notes in order to provide a cohesive continuity of the history. The note has been reviewed and edited and updated as necessary. Pilar Cardoza PA-C documented in this encounter [facility] 05-25-2024 Telephone encounter Note Received fax from [facility] pharmacy requesting Rx for patients diabetic supplies. Called and spoke with patient whom states she did not make this request. She receives her supplies through [facility]. Cristina Gardner MA [facility] 05-25-2024 Miscellaneous Notes Received fax from [facility] pharmacy requesting Rx for patients diabetic supplies. Called and spoke with patient whom states she did not make this request. She receives her supplies through [facility]. Cristina Gardner MA documented in this encounter [facility] 05-15-2024 Telephone encounter Note Prescription Refill Information The patient has been identified by name and date of : Yes Caregiver verified no other encounters exist for this prescription request: Yes Caregiver confirmed with patient/requestor that no other refills are due, in the near future, with this provider at this time: Yes The last office visit in the department: 06-09-23 Does the patient have a future office visit with this provider/department: Yes Requested Prescriptions Pending Prescriptions Disp Refills ammonium lactate (LAC-HYDRIN) 12 % cream 56 g 1 Sig: Apply 1 application to affected area as needed. Melissa Clements May 15, 2024 4:26 PM [facility] 05-15-2024 Miscellaneous Notes Prescription Refill Information The patient has been identified by name and date of : Yes Caregiver verified no other encounters exist for this prescription request: Yes Caregiver confirmed with patient/requestor that no other refills are due, in the near future, with this provider at this time: Yes The last office visit in the department: 06-09-23 Does the patient have a future office visit with this provider/department: Yes Requested Prescriptions Pending Prescriptions Disp Refills ammonium lactate (LAC-HYDRIN) 12 % cream 56 g 1 Sig: Apply 1 application to affected area as needed. Melissa Clements May 15, 2024 4:26 PM documented in this encounter [facility] 05-15-2024 Telephone encounter Note The patient has been identified by name and date of : Yes Caregiver verified no other encounters exist for this prescription request: Yes Caregiver confirmed with patient/requestor that no other refills are due, in the near future, with this provider at this time: Yes The last office visit in the department: 06/09/2023 Does the patient have a future office visit with this provider/department: Yes 05/30/2024 Requested Prescriptions Pending Prescriptions Disp Refills atenolol (TENORMIN) 50 mg tablet 30 tablet 1 Sig: Take 1 tablet by mouth once daily. atorvastatin (LIPITOR) 40 mg tablet 30 tablet 1 Sig: Take 1 tablet by mouth daily at bedtime. lisinopril-hydroCHLOROthiazide (ZESTORETIC) 20-12.5 mg per tablet 60 tablet 1 Sig: Take 2 tablets by mouth once daily. metFORMIN ER (GLUCOPHAGE XR) 500 mg 24 hr tablet 120 tablet 1 Sig: Take 2 tablets by mouth two times a day with meals. busPIRone (BUSPAR) 5 mg tablet 90 tablet 0 Sig: Take 1 tablet by mouth three times a day. furosemide (LASIX) 40 mg tablet 28 tablet 0 Sig: Take 1 tablet by mouth once daily. gabapentin (NEURONTIN) 300 mg capsule 90 capsule 0 Sig: Take 1 capsule by mouth three times a day for 30 days. Appointment needed for further refills. venlafaxine ER (EFFEXOR XR) 75 mg 24 hr capsule 30 capsule 0 Sig: TAKE 1 CAPSULE BY MOUTH DAILY IN ADDITION TO 150 MG A DAY. Afia Lee RN May 15, 2024 11:40 AM [facility] 05-15-2024 Miscellaneous Notes The patient has been identified by name and date of : Yes Caregiver verified no other encounters exist for this prescription request: Yes Caregiver confirmed with patient/requestor that no other refills are due, in the near future, with this provider at this time: Yes The last office visit in the department: 06/09/2023 Does the patient have a future office visit with this provider/department: Yes 05/30/2024 Requested Prescriptions Pending Prescriptions Disp Refills atenolol (TENORMIN) 50 mg tablet 30 tablet 1 Sig: Take 1 tablet by mouth once daily. atorvastatin (LIPITOR) 40 mg tablet 30 tablet 1 Sig: Take 1 tablet by mouth daily at bedtime. lisinopril-hydroCHLOROthiazide (ZESTORETIC) 20-12.5 mg per tablet 60 tablet 1 Sig: Take 2 tablets by mouth once daily. metFORMIN ER (GLUCOPHAGE XR) 500 mg 24 hr tablet 120 tablet 1 Sig: Take 2 tablets by mouth two times a day with meals. busPIRone (BUSPAR) 5 mg tablet 90 tablet 0 Sig: Take 1 tablet by mouth three times a day. furosemide (LASIX) 40 mg tablet 28 tablet 0 Sig: Take 1 tablet by mouth once daily. gabapentin (NEURONTIN) 300 mg capsule 90 capsule 0 Sig: Take 1 capsule by mouth three times a day for 30 days. Appointment needed for further refills. venlafaxine ER (EFFEXOR XR) 75 mg 24 hr capsule 30 capsule 0 Sig: TAKE 1 CAPSULE BY MOUTH DAILY IN ADDITION TO 150 MG A DAY. Afia Lee RN May 15, 2024 11:40 AM documented in this encounter [facility] 05-10-2024 Telephone encounter Note sent [facility] 05-10-2024 Miscellaneous Notes sent Called the pharmacy to review and no PA is needed the rx from 04/27/24 was picked up 04/28/24 with no co pay. This rx is a 23 day supply so pt will be needing a new rx. When pulling rx for refill it notes there are duplicate rx for this medicines. Will you send a new rx for pt for the humalog 200? Unable to complete electronically. Will try on covermymeds. Electronic PA requested. Prior Authorization Documentation Prior authorization requested for the following medication: Medication: Humalog Provider: Lu evens Insurance Company Name: [facility] Medicaid Insurance [employer] Phone number: [phone] Patient ID number: [id number] RXBIN: [id number] RXPCN: [id number] Pharmacy Name: [facility] Telephone number: [phone] Rakel Douglas RN documented in this encounter [facility] 05-10-2024 Telephone encounter Note Called the pharmacy to review and no PA is needed the rx from 04/27/24 was picked up 04/28/24 with no co pay. This rx is a 23 day supply so pt will be needing a new rx. When pulling rx for refill it notes there are duplicate rx for this medicines. Will you send a new rx for pt for the humalog 200? [facility] 05-10-2024 Telephone encounter Note Unable to complete electronically. Will try on covermymeds. [facility] 05-10-2024 Telephone encounter Note Electronic PA requested. [facility] 05-09-2024 Telephone encounter Note Prior Authorization Documentation Prior authorization requested for the following medication: Medication: Humalog Provider: Lu Greene Insurance Company Name: [facility] [employer] Company Phone number: [phone] Patient ID number: [id number] RXBIN: [id number] RXPCN: [id number] Pharmacy Name: [facility] Telephone number: [phone] Rakel Douglas RN [facility] 05-08-2024 Note Patient Outreach (FA MPWS) ROSA MARIA MENJIVAR ([id number]) 1965 F Date Time Provider Department 05/08/24 LU GREENE During your visit today, we recorded the following information about you: Allergies As of Date: 05/08/2024 Noted Allergy Reaction JARDIANCE (EMPAGLIFLOZIN) 07/23/2022 9 - Itching Comments: Pt reported yeast infection MORPHINE 10/14/2010 9 - Itching TETANUS AND DIPHTHERIA TOXOIDS, A*11/10/2012 14 - Other: See Comments Comments: ? Reactive lymphadenopathy TORADOL (KETOROLAC TROMETHAMINE) 11/24/2007 Comments: Heart racing and nightmares Date Reviewed: 08/11/2023 Reviewed by: Pilar Cardoza PA-C - Fully Assessed Visit Diagnosis:Encounter for screening mammogram for breast cancer [Z12.31] Order(s):[facility] SCREENING [facility] LEW [[id number]] Order #: [id number] FUTURE Prescriptions as of 06/08/2024 - omeprazole (PRILOSEC) 20 mg capsule Take 1 capsule by mouth daily before breakfast. 1/2 hr before meal. - furosemide (LASIX) 40 mg tablet Take 1 tablet by mouth once daily. - busPIRone (BUSPAR) 7.5 mg tablet Take 1 tablet by mouth three times a day. - atenolol (TENORMIN) 25 mg tablet Take 1 tablet by mouth once daily. Take with 50 mg tablet for total daily dose of 75 mg. - insulin lispro (HUMALOG) 200 unit/mL (3 mL) injection 63 units am, 3 units afternoon, 94 units before evening meal - insulin lispro (HUMALOG) 200 unit/mL (3 mL) injection 63 units am, 3 units afternoon, 94 units before evening meal - dulaglutide (TRULICITY) 0.75 mg/0.5 mL pen injector Inject 0.75 mg subcutaneously one time a week. - spironolactone (ALDACTONE) 25 mg tablet Take 25 mg by mouth once daily. - mometasone-formoterol (DULERA) 50-5 mcg/actuation HFA aerosol inhaler Inhale 2 puffs as instructed two times a day. - atenolol (TENORMIN) 50 mg tablet Take 1 tablet by mouth once daily. - atorvastatin (LIPITOR) 40 mg tablet Take 1 tablet by mouth daily at bedtime. - lisinopril-hydroCHLOROthiazide (ZESTORETIC) 20-12.5 mg per tablet Take 2 tablets by mouth once daily. - metFORMIN ER (GLUCOPHAGE XR) 500 mg 24 hr tablet Take 2 tablets by mouth two times a day with meals. - gabapentin (NEURONTIN) 300 mg capsule Take 1 capsule by mouth three times a day for 30 days. Appointment needed for further refills. - venlafaxine ER (EFFEXOR XR) 75 mg 24 hr capsule TAKE 1 CAPSULE BY MOUTH DAILY IN ADDITION TO 150 MG A DAY. - ammonium lactate (LAC-HYDRIN) 12 % cream Apply 1 application to affected area as needed. - Insulin [place], Disposable, (ULTICARE PEN NEEDLE) 29 gauge x 1/2 USE FIVE TIMES A DAY - venlafaxine ER (EFFEXOR XR) 150 mg 24 hr capsule Take 1 capsule by mouth once daily. - flash glucose sensor (FREESTYLE TERRELL 2 SENSOR) kit Use to check blood glucose 4 times daily. - insulin glargine (LANTUS SOLOSTAR U-100 INSULIN) 100 unit/mL (3 mL) Inject 83 Units subcutaneously two times a day. - flash glucose scanning reader (FREESTYLE TERRELL 2 READER) 1 Each four times daily. - albuterol HFA (PROVENTIL HFA, VENTOLIN HFA) 90 mcg/actuation inhaler Inhale 2 Puffs as instructed every 4 hours as needed. - blood sugar diagnostic (BLOOD GLUCOSE TEST) test strip Test blood sugar(s) 2 times daily: fasting am and 2 hour after largest meal. Dx: Type 2 DM - Controlled E11.9 Insulin: Yes - potassium chloride (K-TAB) 10 mEq tablet Take 2 tablets by mouth daily with breakfast. - Lancets lancets Test blood sugar(s) 2 times daily. Dx: Type 2 DM - Uncontrolled E11.65 Insulin: Yes - CPAP 11 cm via nasal mask with 20 min ramp and humidification. - OXYGEN, HOME THERAPY, 2 L/min by Nasal Cannula route continuous. - COMPOUNDED PRESCRIPTION C-PAP MASK HOSES, FILTERS - glucose 4 gram chewable tablet Take 4 tablets by mouth as needed. For sugar less than 70 - COMPOUNDED PRESCRIPTION COMPRESSION STOCKINGS 20-30 mm Knee high. DX: venous insufficiency - COMPOUNDED PRESCRIPTION cpap supplies: sleep apnea - COMPOUNDED PRESCRIPTION CPAP mask Problem List As Of Date 05/08/2024 Noted Resolved Staghorn renal calculus [N20.0] 05/03/2007 RENAL COLIC [N23] 05/03/2007 Urinary complications [[id number]] 03/21/2008 11/19/2015 HYDRONEPHROSIS [N13.30] 03/21/2008 Acute kidney [...] Depression [F32.A] DDD (degenerative disc disease), lumbar [M51.36* IBS (irritable bowel syndrome) [K58.9] Panic disorder [F41.0] Obstructive sleep apnea syndrome [G47.33] Hypertension, essen (more content not included)... [facility] 05-04-2024 Telephone encounter Note Next OV 05/30/24 with Lu Greene [facility] 05-04-2024 Miscellaneous Notes Next OV 05/30/24 with Lu Greene Prescription Refill Information The patient has been identified by name and date of : Yes Caregiver verified no other encounters exist for this prescription request: Yes Caregiver confirmed with patient/requestor that no other refills are due, in the near future, with this provider at this time: Yes The last office visit in the department: Does the patient have a future office visit with this provider/department: Yes Requested Prescriptions Pending Prescriptions Disp Refills Insulin [place], Disposable, (ULTICARE PEN NEEDLE) 29 gauge x 1/2 200 Each 5 Sig: USE FIVE TIMES A DAY Janee Blanco Pss May 04, 2024 11:28 AM documented in this encounter [facility] 05-04-2024 Telephone encounter Note Prescription Refill Information The patient has been identified by name and date of : Yes Caregiver verified no other encounters exist for this prescription request: Yes Caregiver confirmed with patient/requestor that no other refills are due, in the near future, with this provider at this time: Yes The last office visit in the department: Does the patient have a future office visit with this provider/department: Yes Requested Prescriptions Pending Prescriptions Disp Refills Insulin [place], Disposable, (ULTICARE PEN NEEDLE) 29 gauge x 1/2 200 Each 5 Sig: USE FIVE TIMES A DAY Janee Ayala May 04, 2024 11:28 AM [facility] 04-27-2024 Telephone encounter Note Has appt scheduled for May -- one month supply sent. Lu Greene APRN.[employer] ARCHIT[employer] [facility] 04-27-2024 Miscellaneous Notes Has appt scheduled for May -- one month supply sent. Lu Greene APRN.[employer] ARCH[employer] Prescription Refill Information The patient has been identified by name and date of : Yes Caregiver verified no other encounters exist for this prescription request: Yes Caregiver confirmed with patient/requestor that no other refills are due, in the near future, with this provider at this time: Yes The last office visit in the department: 05/2023 Does the patient have a future office visit with this provider/department: Yes Requested Prescriptions Pending Prescriptions Disp Refills insulin lispro (HUMALOG) 200 unit/mL (3 mL) injection 3 Each 0 Si units am, 3 units afternoon, 93 units before evening meal Dhara Vivar [facility] April 27, 2024 1:37 PM documented in this encounter [facility] 04-27-2024 Telephone encounter Note Prescription Refill Information The patient has been identified by name and date of : Yes Caregiver verified no other encounters exist for this prescription request: Yes Caregiver confirmed with patient/requestor that no other refills are due, in the near future, with this provider at this time: Yes The last office visit in the department: 05/2023 Does the patient have a future office visit with this provider/department: Yes Requested Prescriptions Pending Prescriptions Disp Refills insulin lispro (HUMALOG) 200 unit/mL (3 mL) injection 3 Each 0 Si units am, 3 units afternoon, 93 units before evening meal Dhara Ayala April 27, 2024 1:37 PM [facility] 04-17-2024 Telephone encounter Note Prescription Refill Information The patient has been identified by name and date of : Yes Caregiver verified no other encounters exist for this prescription request: Yes Caregiver confirmed with patient/requestor that no other refills are due, in the near future, with this provider at this time: Yes The last office visit in the department: 06/09/23 Does the patient have a future office visit with this provider/department: Yes 05/30/24 Requested Prescriptions No prescriptions requested or ordered in this encounter Jennifer Nugent LPN April 17, 2024 11:37 AM [facility] 04-17-2024 Miscellaneous Notes Prescription Refill Information The patient has been identified by name and date of : Yes Caregiver verified no other encounters exist for this prescription request: Yes Caregiver confirmed with patient/requestor that no other refills are due, in the near future, with this provider at this time: Yes The last office visit in the department: 06/09/23 Does the patient have a future office visit with this provider/department: Yes 05/30/24 Requested Prescriptions No prescriptions requested or ordered in this encounter Jennifer Nugent LPN April 17, 2024 11:37 AM documented in this encounter [facility] 03-22-2024 Telephone encounter Note The following approved medication requests have been transmitted electronically. Requested Prescriptions Pending Prescriptions Disp Refills atenolol (TENORMIN) 50 mg tablet 30 tablet 1 Sig: Take 1 tablet by mouth once daily. atorvastatin (LIPITOR) 40 mg tablet 30 tablet 1 Sig: Take 1 tablet by mouth daily at bedtime. busPIRone (BUSPAR) 5 mg tablet 90 tablet 0 Sig: Take 1 tablet by mouth three times a day. furosemide (LASIX) 40 mg tablet 28 tablet 0 Sig: Take 1 tablet by mouth once daily. gabapentin (NEURONTIN) 300 mg capsule 90 capsule 0 Sig: Take 1 capsule by mouth three times a day for 30 days. Appointment needed for further refills. lisinopril-hydroCHLOROthiazide (ZESTORETIC) 20-12.5 mg per tablet 60 tablet 1 Sig: Take 2 tablets by mouth once daily. metFORMIN ER (GLUCOPHAGE XR) 500 mg 24 hr tablet 120 tablet 1 Sig: Take 2 tablets by mouth two times a day with meals. venlafaxine ER (EFFEXOR XR) 75 mg 24 hr capsule 30 capsule 0 Sig: TAKE 1 CAPSULE BY MOUTH DAILY IN ADDITION TO 150 MG A DAY. Mary Morales APRN.RANDALL [facility] 03-22-2024 Miscellaneous Notes The following approved medication requests have been transmitted electronically. Requested Prescriptions Pending Prescriptions Disp Refills atenolol (TENORMIN) 50 mg tablet 30 tablet 1 Sig: Take 1 tablet by mouth once daily. atorvastatin (LIPITOR) 40 mg tablet 30 tablet 1 Sig: Take 1 tablet by mouth daily at bedtime. busPIRone (BUSPAR) 5 mg tablet 90 tablet 0 Sig: Take 1 tablet by mouth three times a day. furosemide (LASIX) 40 mg tablet 28 tablet 0 Sig: Take 1 tablet by mouth once daily. gabapentin (NEURONTIN) 300 mg capsule 90 capsule 0 Sig: Take 1 capsule by mouth three times a day for 30 days. Appointment needed for further refills. lisinopril-hydroCHLOROthiazide (ZESTORETIC) 20-12.5 mg per tablet 60 tablet 1 Sig: Take 2 tablets by mouth once daily. metFORMIN ER (GLUCOPHAGE XR) 500 mg 24 hr tablet 120 tablet 1 Sig: Take 2 tablets by mouth two times a day with meals. venlafaxine ER (EFFEXOR XR) 75 mg 24 hr capsule 30 capsule 0 Sig: TAKE 1 CAPSULE BY MOUTH DAILY IN ADDITION TO 150 MG A DAY. Mary Morales APRN.RANDALL The patient has been identified by name and date of : Yes Caregiver verified no other encounters exist for this prescription request: Yes Caregiver confirmed with patient/requestor that no other refills are due, in the near future, with this provider at this time: Yes The last office visit in the department: 06/09/2023 Does the patient have a future office visit with this provider/department: No Visit date not found Requested Prescriptions Pending Prescriptions Disp Refills atenolol (TENORMIN) 50 mg tablet 30 tablet 5 Sig: Take 1 tablet by mouth once daily. atorvastatin (LIPITOR) 40 mg tablet 30 tablet 5 Sig: Take 1 tablet by mouth daily at bedtime. busPIRone (BUSPAR) 5 mg tablet 90 tablet 0 Sig: Take 1 tablet by mouth three times a day. furosemide (LASIX) 40 mg tablet 28 tablet 0 Sig: Take 1 tablet by mouth once daily. gabapentin (NEURONTIN) 300 mg capsule 90 capsule 2 Sig: Take 1 capsule by mouth three times a day for 90 days. Appointment needed for further refills. lisinopril-hydroCHLOROthiazide (ZESTORETIC) 20-12.5 mg per tablet 60 tablet 5 Sig: Take 2 tablets by mouth once daily. metFORMIN ER (GLUCOPHAGE XR) 500 mg 24 hr tablet 120 tablet 11 Sig: Take 2 tablets by mouth two times a day with meals. venlafaxine ER (EFFEXOR XR) 75 mg 24 hr capsule 30 capsule 5 Sig: TAKE 1 CAPSULE BY MOUTH DAILY IN ADDITION TO 150 MG A DAY. Afia Lee RN March 22, 2024 4:29 PM documented in this encounter [facility] 03-22-2024 Telephone encounter Note The patient has been identified by name and date of : Yes Caregiver verified no other encounters exist for this prescription request: Yes Caregiver confirmed with patient/requestor that no other refills are due, in the near future, with this provider at this time: Yes The last office visit in the department: 06/09/2023 Does the patient have a future office visit with this provider/department: No Visit date not found Requested Prescriptions Pending Prescriptions Disp Refills atenolol (TENORMIN) 50 mg tablet 30 tablet 5 Sig: Take 1 tablet by mouth once daily. atorvastatin (LIPITOR) 40 mg tablet 30 tablet 5 Sig: Take 1 tablet by mouth daily at bedtime. busPIRone (BUSPAR) 5 mg tablet 90 tablet 0 Sig: Take 1 tablet by mouth three times a day. furosemide (LASIX) 40 mg tablet 28 tablet 0 Sig: Take 1 tablet by mouth once daily. gabapentin (NEURONTIN) 300 mg capsule 90 capsule 2 Sig: Take 1 capsule by mouth three times a day for 90 days. Appointment needed for further refills. lisinopril-hydroCHLOROthiazide (ZESTORETIC) 20-12.5 mg per tablet 60 tablet 5 Sig: Take 2 tablets by mouth once daily. metFORMIN ER (GLUCOPHAGE XR) 500 mg 24 hr tablet 120 tablet 11 Sig: Take 2 tablets by mouth two times a day with meals. venlafaxine ER (EFFEXOR XR) 75 mg 24 hr capsule 30 capsule 5 Sig: TAKE 1 CAPSULE BY MOUTH DAILY IN ADDITION TO 150 MG A DAY. Afia Lee RN March 22, 2024 4:29 PM [facility] 03-05-2024 Telephone encounter Note Prescription Refill Information The patient has been identified by name and date of : Yes Caregiver verified no other encounters exist for this prescription request: Yes Caregiver confirmed with patient/requestor that no other refills are due, in the near future, with this provider at this time: Yes The last office visit in the department: 06-09-23 Does the patient have a future office visit with this provider/department: Yes Requested Prescriptions Pending Prescriptions Disp Refills flash glucose sensor (FREESTYLE TERRELL 2 SENSOR) kit 2 Each 5 Sig: Use to check blood glucose 4 times daily. Janee Ayala March 05, 2024 10:51 AM [facility] 03-05-2024 Miscellaneous Notes Prescription Refill Information The patient has been identified by name and date of : Yes Caregiver verified no other encounters exist for this prescription request: Yes Caregiver confirmed with patient/requestor that no other refills are due, in the near future, with this provider at this time: Yes The last office visit in the department: 06-09-23 Does the patient have a future office visit with this provider/department: Yes Requested Prescriptions Pending Prescriptions Disp Refills flash glucose sensor (FREESTYLE TERRELL 2 SENSOR) kit 2 Each 5 Sig: Use to check blood glucose 4 times daily. Janee Ayala March 05, 2024 10:51 AM documented in this encounter [facility] 02-21-2024 Telephone encounter Note The following approved medication requests have been transmitted electronically. Requested Prescriptions Pending Prescriptions Disp Refills busPIRone (BUSPAR) 5 mg tablet 90 tablet 0 Sig: Take 1 tablet by mouth three times a day. furosemide (LASIX) 40 mg tablet 28 tablet 0 Sig: Take 1 tablet by mouth once daily. Mary Morales APRN.CNP [facility] 02-21-2024 Miscellaneous Notes The following approved medication requests have been transmitted electronically. Requested Prescriptions Pending Prescriptions Disp Refills busPIRone (BUSPAR) 5 mg tablet 90 tablet 0 Sig: Take 1 tablet by mouth three times a day. furosemide (LASIX) 40 mg tablet 28 tablet 0 Sig: Take 1 tablet by mouth once daily. Mary Morales APRN.CNP The patient has been identified by name and date of : Yes Caregiver verified no other encounters exist for this prescription request: Yes Caregiver confirmed with patient/requestor that no other refills are due, in the near future, with this provider at this time: Yes The last office visit in the department: 06/09/2023 Does the patient have a future office visit with this provider/department: 03/06/2024 with Ashu Morales Requested Prescriptions Pending Prescriptions Disp Refills busPIRone (BUSPAR) 5 mg tablet 90 tablet 5 Sig: Take 1 tablet by mouth three times a day. furosemide (LASIX) 40 mg tablet 28 tablet 5 Sig: Take 1 tablet by mouth once daily. Rakel Douglas RN February 21, 2024 3:12 PM documented in this encounter [facility] 02-21-2024 Telephone encounter Note The patient has been identified by name and date of : Yes Caregiver verified no other encounters exist for this prescription request: Yes Caregiver confirmed with patient/requestor that no other refills are due, in the near future, with this provider at this time: Yes The last office visit in the department: 06/09/2023 Does the patient have a future office visit with this provider/department: 03/06/2024 with Ashu Morales Requested Prescriptions Pending Prescriptions Disp Refills busPIRone (BUSPAR) 5 mg tablet 90 tablet 5 Sig: Take 1 tablet by mouth three times a day. furosemide (LASIX) 40 mg tablet 28 tablet 5 Sig: Take 1 tablet by mouth once daily. Rakel Douglas RN February 21, 2024 3:12 PM [facility] 01-03-2024 Telephone encounter Note The patient has been identified by name and date of : Yes Pharmacy Caregiver verified no other encounters exist for this prescription request: Yes Caregiver confirmed with patient/requestor that no other refills are due, in the near future, with this provider at this time: Yes The last office visit in the department: 06/09/2023 Does the patient have a future office visit with this provider/department: Yes 01/09/2024 Requested Prescriptions Pending Prescriptions Disp Refills gabapentin (NEURONTIN) 300 mg capsule 90 capsule 2 Sig: Take 1 capsule by mouth three times a day for 90 days. Appointment needed for further refills. Sharon Horan LPN January 03, 2024 9:05 AM [facility] 01-03-2024 Miscellaneous Notes The patient has been identified by name and date of : Yes Pharmacy Caregiver verified no other encounters exist for this prescription request: Yes Caregiver confirmed with patient/requestor that no other refills are due, in the near future, with this provider at this time: Yes The last office visit in the department: 06/09/2023 Does the patient have a future office visit with this provider/department: Yes 01/09/2024 Requested Prescriptions Pending Prescriptions Disp Refills gabapentin (NEURONTIN) 300 mg capsule 90 capsule 2 Sig: Take 1 capsule by mouth three times a day for 90 days. Appointment needed for further refills. Sharon Horan LPN January 03, 2024 9:05 AM documented in this encounter [facility] 10-26-2023 Telephone encounter Note Prescription Refill Information The patient has been identified by name and date of : Yes Caregiver verified no other encounters exist for this prescription request: Yes Caregiver confirmed with patient/requestor that no other refills are due, in the near future, with this provider at this time: Yes The last office visit in the department: 06/09/23 Does the patient have a future office visit with this provider/department: Yes Requested Prescriptions Pending Prescriptions Disp Refills ammonium lactate (LAC-HYDRIN) 12 % cream 56 g 1 Sig: Apply 1 application to affected area as needed. Jennifer Ayala October 26, 2023 1:49 PM [facility] 10-26-2023 Miscellaneous Notes Prescription Refill Information The patient has been identified by name and date of : Yes Caregiver verified no other encounters exist for this prescription request: Yes Caregiver confirmed with patient/requestor that no other refills are due, in the near future, with this provider at this time: Yes The last office visit in the department: 06/09/23 Does the patient have a future office visit with this provider/department: Yes Requested Prescriptions Pending Prescriptions Disp Refills ammonium lactate (LAC-HYDRIN) 12 % cream 56 g 1 Sig: Apply 1 application to affected area as needed. Jennifer Ayala October 26, 2023 1:49 PM documented in this encounter [facility] 10-10-2023 Telephone encounter Note The following approved medication requests have been transmitted electronically. Requested Prescriptions Pending Prescriptions Disp Refills insulin glargine (LANTUS SOLOSTAR U-100 INSULIN) 100 unit/mL (3 mL) 6 Each 3 Sig: Inject 83 Units subcutaneously two times a day. Insulin [place], Disposable, (ULTICARE PEN NEEDLE) 29 gauge x 1/2 200 Each 5 Sig: USE FIVE TIMES A DAY Mary Morales APRN.CNP [facility] 10-10-2023 Miscellaneous Notes The following approved medication requests have been transmitted electronically. Requested Prescriptions Pending Prescriptions Disp Refills insulin glargine (LANTUS SOLOSTAR U-100 INSULIN) 100 unit/mL (3 mL) 6 Each 3 Sig: Inject 83 Units subcutaneously two times a day. Insulin [place], Disposable, (ULTICARE PEN NEEDLE) 29 gauge x 1/2 200 Each 5 Sig: USE FIVE TIMES A DAY Mary Morales APRN.CNP Prescription Refill Information The patient has been identified by name and date of : Yes Caregiver verified no other encounters exist for this prescription request: Yes Caregiver confirmed with patient/requestor that no other refills are due, in the near future, with this provider at this time: Yes The last office visit in the department: 06-09-23 Does the patient have a future office visit with this provider/department: Yes Requested Prescriptions Pending Prescriptions Disp Refills insulin glargine (LANTUS SOLOSTAR U-100 INSULIN) 100 unit/mL (3 mL) 6 Each 3 Sig: Inject 83 Units subcutaneously two times a day. Insulin [place], Disposable, (ULTICARE PEN NEEDLE) 29 gauge x 1/2 200 Each 5 Sig: USE FIVE TIMES A DAY Janee Ayala October 10, 2023 12:03 PM documented in this encounter [facility] 10-10-2023 Telephone encounter Note The following approved medication requests have been transmitted electronically. Requested Prescriptions Pending Prescriptions Disp Refills venlafaxine ER (EFFEXOR XR) 75 mg 24 hr capsule 30 capsule 5 Sig: TAKE 1 CAPSULE BY MOUTH DAILY IN ADDITION TO 150 MG A DAY. Mary Morales APRN.CNP [facility] 10-10-2023 Miscellaneous Notes The following approved medication requests have been transmitted electronically. Requested Prescriptions Pending Prescriptions Disp Refills venlafaxine ER (EFFEXOR XR) 75 mg 24 hr capsule 30 capsule 5 Sig: TAKE 1 CAPSULE BY MOUTH DAILY IN ADDITION TO 150 MG A DAY. Mary Morales APRN.CNP The patient has been identified by name and date of : Yes Caregiver verified no other encounters exist for this prescription request: Yes Caregiver confirmed with patient/requestor that no other refills are due, in the near future, with this provider at this time: Yes The last office visit in the department: 06/09/2023 Does the patient have a future office visit with this provider/department: Yes 12/12/2023 Requested Prescriptions Pending Prescriptions Disp Refills venlafaxine ER (EFFEXOR XR) 75 mg 24 hr capsule 30 capsule 5 Sig: TAKE 1 CAPSULE BY MOUTH DAILY IN ADDITION TO 150 MG A DAY. Afia Lee RN October 10, 2023 10:10 AM documented in this encounter [facility] 10-10-2023 Telephone encounter Note Prescription Refill Information The patient has been identified by name and date of : Yes Caregiver verified no other encounters exist for this prescription request: Yes Caregiver confirmed with patient/requestor that no other refills are due, in the near future, with this provider at this time: Yes The last office visit in the department: 06-09-23 Does the patient have a future office visit with this provider/department: Yes Requested Prescriptions Pending Prescriptions Disp Refills insulin glargine (LANTUS SOLOSTAR U-100 INSULIN) 100 unit/mL (3 mL) 6 Each 3 Sig: Inject 83 Units subcutaneously two times a day. Insulin [place], Disposable, (ULTICARE PEN NEEDLE) 29 gauge x 1/2 200 Each 5 Sig: USE FIVE TIMES A DAY Janee Ayala October 10, 2023 12:03 PM [facility] 10-10-2023 Telephone encounter Note The patient has been identified by name and date of : Yes Caregiver verified no other encounters exist for this prescription request: Yes Caregiver confirmed with patient/requestor that no other refills are due, in the near future, with this provider at this time: Yes The last office visit in the department: 06/09/2023 Does the patient have a future office visit with this provider/department: Yes 12/12/2023 Requested Prescriptions Pending Prescriptions Disp Refills venlafaxine ER (EFFEXOR XR) 75 mg 24 hr capsule 30 capsule 5 Sig: TAKE 1 CAPSULE BY MOUTH DAILY IN ADDITION TO 150 MG A DAY. Afia Lee RN October 10, 2023 10:10 AM [facility] 10-07-2023 Telephone encounter Note The following approved medication requests have been transmitted electronically. Requested Prescriptions Pending Prescriptions Disp Refills atenolol (TENORMIN) 50 mg tablet 30 tablet 5 Sig: Take 1 tablet by mouth once daily. atorvastatin (LIPITOR) 40 mg tablet 30 tablet 5 Sig: Take 1 tablet by mouth daily at bedtime. gabapentin (NEURONTIN) 300 mg capsule 90 capsule 2 Sig: Take 1 capsule by mouth three times a day for 90 days. Appointment needed for further refills. lisinopril-hydroCHLOROthiazide (ZESTORETIC) 20-12.5 mg per tablet 60 tablet 5 Sig: Take 2 tablets by mouth once daily. venlafaxine ER (EFFEXOR XR) 150 mg 24 hr capsule 30 capsule 5 Sig: Take 1 capsule by mouth once daily. Mary Morales APRN.CNP [facility] 10-07-2023 Miscellaneous Notes The following approved medication requests have been transmitted electronically. Requested Prescriptions Pending Prescriptions Disp Refills atenolol (TENORMIN) 50 mg tablet 30 tablet 5 Sig: Take 1 tablet by mouth once daily. atorvastatin (LIPITOR) 40 mg tablet 30 tablet 5 Sig: Take 1 tablet by mouth daily at bedtime. gabapentin (NEURONTIN) 300 mg capsule 90 capsule 2 Sig: Take 1 capsule by mouth three times a day for 90 days. Appointment needed for further refills. lisinopril-hydroCHLOROthiazide (ZESTORETIC) 20-12.5 mg per tablet 60 tablet 5 Sig: Take 2 tablets by mouth once daily. venlafaxine ER (EFFEXOR XR) 150 mg 24 hr capsule 30 capsule 5 Sig: Take 1 capsule by mouth once daily. Mary Morales APRN.CNP Prescription Refill Information The patient has been identified by name and date of : Yes Caregiver verified no other encounters exist for this prescription request: Yes Caregiver confirmed with patient/requestor that no other refills are due, in the near future, with this provider at this time: Yes The last office visit in the department: 06/09/23 Does the patient have a future office visit with this provider/department: Yes Requested Prescriptions Pending Prescriptions Disp Refills atenolol (TENORMIN) 50 mg tablet 30 tablet 5 Sig: Take 1 tablet by mouth once daily. atorvastatin (LIPITOR) 40 mg tablet 30 tablet 5 Sig: Take 1 tablet by mouth daily at bedtime. gabapentin (NEURONTIN) 300 mg capsule 90 capsule 2 Sig: Take 1 capsule by mouth three times a day for 90 days. Appointment needed for further refills. lisinopril-hydroCHLOROthiazide (ZESTORETIC) 20-12.5 mg per tablet 60 tablet 5 Sig: Take 2 tablets by mouth once daily. venlafaxine ER (EFFEXOR XR) 150 mg 24 hr capsule 30 capsule 5 Sig: Take 1 capsule by mouth once daily. Izabella Haas LPN October 07, 2023 1:18 PM documented in this encounter [facility] 10-07-2023 Telephone encounter Note Prescription Refill Information The patient has been identified by name and date of : Yes Caregiver verified no other encounters exist for this prescription request: Yes Caregiver confirmed with patient/requestor that no other refills are due, in the near future, with this provider at this time: Yes The last office visit in the department: 06/09/23 Does the patient have a future office visit with this provider/department: Yes Requested Prescriptions Pending Prescriptions Disp Refills atenolol (TENORMIN) 50 mg tablet 30 tablet 5 Sig: Take 1 tablet by mouth once daily. atorvastatin (LIPITOR) 40 mg tablet 30 tablet 5 Sig: Take 1 tablet by mouth daily at bedtime. gabapentin (NEURONTIN) 300 mg capsule 90 capsule 2 Sig: Take 1 capsule by mouth three times a day for 90 days. Appointment needed for further refills. lisinopril-hydroCHLOROthiazide (ZESTORETIC) 20-12.5 mg per tablet 60 tablet 5 Sig: Take 2 tablets by mouth once daily. venlafaxine ER (EFFEXOR XR) 150 mg 24 hr capsule 30 capsule 5 Sig: Take 1 capsule by mouth once daily. Izabella Haas LPN October 07, 2023 1:18 PM [facility] 09-21-2023 Telephone encounter Note Pt called and she did not received the correct amount of insulin for her Humalog. The prescription said 3 units three times a day. Pt is taking 63 units in the am , 3 units afternoon and 93 units in the evening. Pt is completely out of of the Humalog and needs to be sent to the pharmacy [facility] and notify pt. so she can get this picked up. Please review. Yesenia Blanco LPN [facility] 09-21-2023 Miscellaneous Notes Pt called and she did not received the correct amount of insulin for her Humalog. The prescription said 3 units three times a day. Pt is taking 63 units in the am , 3 units afternoon and 93 units in the evening. Pt is completely out of of the Humalog and needs to be sent to the pharmacy [facility] and notify pt. so she can get this picked up. Please review. Yesenia Blanco LPN documented in this encounter [facility] 09-19-2023 Telephone encounter Note The following approved medication requests have been transmitted electronically. Requested Prescriptions Pending Prescriptions Disp Refills flash glucose scanning reader (FREESTYLE TERRELL 2 READER) 1 Each 0 Si Each four times daily. Mary Morales APRN.[employer] BPM ARCHITECT [facility] 09-19-2023 Miscellaneous Notes The following approved medication requests have been transmitted electronically. Requested Prescriptions Pending Prescriptions Disp Refills flash glucose scanning reader (FREESTYLE TERRELL 2 READER) 1 Each 0 Si Each four times daily. Mary Morales APRN.[employer] B[employer] ARCHITECT Patient said her current Terrell reader quit working. She does not need any sensors at this time. Prescription Refill Information The patient has been identified by name and date of : Yes Caregiver verified no other encounters exist for this prescription request: Yes Caregiver confirmed with patient/requestor that no other refills are due, in the near future, with this provider at this time: Yes The last office visit in the department: 06/09/23 Does the patient have a future office visit with this provider/department: Yes Requested Prescriptions Pending Prescriptions Disp Refills flash glucose scanning reader (FREESTYLE TERRELL 2 READER) 1 Each 0 Si Each four times daily. Jennifer Ayala September 19, 2023 1:49 PM documented in this encounter [facility] 09-19-2023 Telephone encounter Note Patient said her current Terrell reader quit working. She does not need any sensors at this time. [facility] 09-19-2023 Telephone encounter Note Prescription Refill Information The patient has been identified by name and date of : Yes Caregiver verified no other encounters exist for this prescription request: Yes Caregiver confirmed with patient/requestor that no other refills are due, in the near future, with this provider at this time: Yes The last office visit in the department: 06/09/23 Does the patient have a future office visit with this provider/department: Yes Requested Prescriptions Pending Prescriptions Disp Refills flash glucose scanning reader (FREESTYLE TERRELL 2 READER) 1 Each 0 Si Each four times daily. Jennifer Ayala September 19, 2023 1:49 PM [facility] 09-09-2023 Telephone encounter Note The following approved medication requests have been transmitted electronically. Requested Prescriptions Pending Prescriptions Disp Refills Insulin [place], Disposable, (ULTICARE PEN NEEDLE) 29 gauge x 1/2 200 Each 5 Sig: USE FIVE TIMES A DAY Mary Morales APRN.CNP [facility] 09-09-2023 Miscellaneous Notes The following approved medication requests have been transmitted electronically. Requested Prescriptions Pending Prescriptions Disp Refills Insulin [place], Disposable, (ULTICARE PEN NEEDLE) 29 gauge x 1/2 200 Each 5 Sig: USE FIVE TIMES A DAY Mary Morales APRN.CNP Prescription Refill Information The patient has been identified by name and date of : Yes Caregiver verified no other encounters exist for this prescription request: Yes Caregiver confirmed with patient/requestor that no other refills are due, in the near future, with this provider at this time: Yes The last office visit in the department: 05/2024 Next appointment; Yes 11/2023 Requested Prescriptions Pending Prescriptions Disp Refills Insulin [place], Disposable, (ULTICARE PEN NEEDLE) 29 gauge x 1/2 200 Each 5 Sig: USE FIVE TIMES A DAY Gissel Mata MA September 09, 2023 11:49 AM Prescription Refill Information The patient has been identified by name and date of : Yes Caregiver verified no other encounters exist for this prescription request: Yes Caregiver confirmed with patient/requestor that no other refills are due, in the near future, with this provider at this time: Yes The last office visit in the department: 06-09-23 Does the patient have a future office visit with this provider/department: Yes Requested Prescriptions Pending Prescriptions Disp Refills Insulin [place], Disposable, (ULTICARE PEN NEEDLE) 29 gauge x 1/2 200 Each 5 Sig: USE FIVE TIMES A DAY Pilar Ayala September 09, 2023 10:45 AM documented in this encounter [facility] 09-09-2023 Telephone encounter Note Prescription Refill Information The patient has been identified by name and date of : Yes Caregiver verified no other encounters exist for this prescription request: Yes Caregiver confirmed with patient/requestor that no other refills are due, in the near future, with this provider at this time: Yes The last office visit in the department: 05/2024 Next appointment; Yes 11/2023 Requested Prescriptions Pending Prescriptions Disp Refills Insulin [place], Disposable, (ULTICARE PEN NEEDLE) 29 gauge x 1/2 200 Each 5 Sig: USE FIVE TIMES A DAY Gissel Mata MA September 09, 2023 11:49 AM [facility] 09-09-2023 Telephone encounter Note Prescription Refill Information The patient has been identified by name and date of : Yes Caregiver verified no other encounters exist for this prescription request: Yes Caregiver confirmed with patient/requestor that no other refills are due, in the near future, with this provider at this time: Yes The last office visit in the department: 06-09-23 Does the patient have a future office visit with this provider/department: Yes Requested Prescriptions Pending Prescriptions Disp Refills Insulin [place], Disposable, (ULTICARE PEN NEEDLE) 29 gauge x 1/2 200 Each 5 Sig: USE FIVE TIMES A DAY Pilar Ayala September 09, 2023 10:45 AM [facility] 09-08-2023 Telephone encounter Note The following approved medication requests have been transmitted electronically. Requested Prescriptions Pending Prescriptions Disp Refills busPIRone (BUSPAR) 5 mg tablet 90 tablet 5 Sig: Take 1 tablet by mouth three times a day. furosemide (LASIX) 40 mg tablet 28 tablet 5 Sig: Take 1 tablet by mouth once daily. Mary Morales APRN.CNP [facility] 09-08-2023 Miscellaneous Notes The following approved medication requests have been transmitted electronically. Requested Prescriptions Pending Prescriptions Disp Refills busPIRone (BUSPAR) 5 mg tablet 90 tablet 5 Sig: Take 1 tablet by mouth three times a day. furosemide (LASIX) 40 mg tablet 28 tablet 5 Sig: Take 1 tablet by mouth once daily. Mary Morales APRN.CNP The patient has been identified by name and date of : Yes Caregiver verified no other encounters exist for this prescription request: Yes Caregiver confirmed with patient/requestor that no other refills are due, in the near future, with this provider at this time: Yes The last office visit in the department: 06/09/2023 Does the patient have a future office visit with this provider/department: Yes 12/12/2023 Requested Prescriptions Pending Prescriptions Disp Refills busPIRone (BUSPAR) 5 mg tablet 90 tablet 5 Sig: Take 1 tablet by mouth three times a day. furosemide (LASIX) 40 mg tablet 28 tablet 5 Sig: Take 1 tablet by mouth once daily. Jovany Rodriguez RN September 08, 2023 1:54 PM documented in this encounter [facility] 09-08-2023 Telephone encounter Note The patient has been identified by name and date of : Yes Caregiver verified no other encounters exist for this prescription request: Yes Caregiver confirmed with patient/requestor that no other refills are due, in the near future, with this provider at this time: Yes The last office visit in the department: 06/09/2023 Does the patient have a future office visit with this provider/department: Yes 12/12/2023 Requested Prescriptions Pending Prescriptions Disp Refills busPIRone (BUSPAR) 5 mg tablet 90 tablet 5 Sig: Take 1 tablet by mouth three times a day. furosemide (LASIX) 40 mg tablet 28 tablet 5 Sig: Take 1 tablet by mouth once daily. Jovany Rodriguez RN September 08, 2023 1:54 PM [facility] 09-02-2023 Telephone encounter Note Prescription Refill Information The patient has been identified by name and date of : Yes Caregiver verified no other encounters exist for this prescription request: Yes Caregiver confirmed with patient/requestor that no other refills are due, in the near future, with this provider at this time: Yes The last office visit in the department: 06-09-23 Does the patient have a future office visit with this provider/department: Yes Requested Prescriptions Pending Prescriptions Disp Refills insulin lispro (HUMALOG) 200 unit/mL (3 mL) injection 4 Each 2 Sig: Inject 3 Units subcutaneously three times a day before meals. And sliding scale coverage: Lispro insulin coverage < 200 no coverage 201-250 2u 251-300 3u 301-350 5u 351-400 8u 451-500 12u > 500 go to ER exenatide (BYETTA) 10 mcg/dose(250 mcg/mL) 2.4 mL injection 30 Each 2 Sig: Inject dose 5-60 prior to breakfast & dinner. Minimum 6 hours between meals. flash glucose sensor (FREESTYLE TERRELL 2 SENSOR) kit 6 Kit 3 Si Each four times daily. Pilar Ayala September 02, 2023 8:59 AM [facility] 09-02-2023 Miscellaneous Notes Prescription Refill Information The patient has been identified by name and date of : Yes Caregiver verified no other encounters exist for this prescription request: Yes Caregiver confirmed with patient/requestor that no other refills are due, in the near future, with this provider at this time: Yes The last office visit in the department: 06-09-23 Does the patient have a future office visit with this provider/department: Yes Requested Prescriptions Pending Prescriptions Disp Refills insulin lispro (HUMALOG) 200 unit/mL (3 mL) injection 4 Each 2 Sig: Inject 3 Units subcutaneously three times a day before meals. And sliding scale coverage: Lispro insulin coverage < 200 no coverage 201-250 2u 251-300 3u 301-350 5u 351-400 8u 451-500 12u > 500 go to ER exenatide (BYETTA) 10 mcg/dose(250 mcg/mL) 2.4 mL injection 30 Each 2 Sig: Inject dose 5-60 prior to breakfast & dinner. Minimum 6 hours between meals. flash glucose sensor (FREESTYLE TERRELL 2 SENSOR) kit 6 Kit 3 Si Each four times daily. Pilar Ayala September 02, 2023 8:59 AM documented in this encounter [facility] 08-12-2023 Telephone encounter Note Mily calling from [facility] [place]. Their MOBILE LOUNGE DRIVER is going to evaluate the patient today due to c/o of her O2 sats dropping into the 80s on her current use of 3L. Patient did see Pippa for a VV yesterday, admits to compliance with CPAP therapy and is sleeping in a recliner. Patient had told Mily that she still sleeps poorly and is up and down throughout the night. They will do a courtesy overnight on her CPAP, but believe she may be a candidate for NIV. They will send an update after the home visit. Will send to [facility] as YUMIKO Pearl LPN [facility] 08-12-2023 Miscellaneous Notes Mily calling from [facility], [place]. Their MOBILE LOUNGE DRIVER is going to evaluate the patient today due to c/o of her O2 sats dropping into the 80s on her current use of 3L. Patient did see Pippa for a VV yesterday, admits to compliance with CPAP therapy and is sleeping in a recliner. Patient had told Mily that she still sleeps poorly and is up and down throughout the night. They will do a courtesy overnight on her CPAP, but believe she may be a candidate for NIV. They will send an update after the home visit. Will send to [facility] as YUMIKO Pearl LPN documented in this encounter [facility] 08-12-2023 Telephone encounter Note Harshil Fernando- calling with questions about patient's oxygen. Advised patient had VV yesterday with pulm. Jami would like to speak with pulm. Transferred to [facility] [place]. [facility] 08-12-2023 Miscellaneous Notes Jami- Miriam- calling with questions about patient's oxygen. Advised patient had VV yesterday with pulm. Jami would like to speak with pulm. Transferred to [facility] [place]. documented in this encounter [facility] 08-11-2023 History of Present illness Narrative Images from the original note were not included. VIRTUAL VISIT PROGRESS NOTE This is a virtual visit using The [employer] Video Visit. It required patient-provider interaction for the medical decision making as documented below. I have communicated my name and active licensure. The patient's identity and physical location were verified at the time of this visit. Either the patient or their legal community relations representative has been informed of the risks and benefits of -- and alternatives to -- treatment through a remote evaluation and consents to proceed with the evaluation remotely. Rosa Maria Menjivar is a 57 year old morbidly obese female current smoker with PMH significant for COPD (FEV1 1.50 L 55%) ,chronic hypoxemic respiratory failure mainly due to obesity, DM2, HLD, HTN, RCC s/p partial right nephrectomy, and KELLIE on CPAP. Patient has had waxing and waning GCO dating back to 2018. Most recent CT chest 06/09/2023 demonstrated stable nodules in RLL with a few decreased in size when compared to 2020 indicating an infectious/inflammatory process. No new pulmonary nodules. Today, patient reports variable cough, occasionally productive of dirty white sputum. No hemoptysis. No wheezing. Exertional dyspnea appears to be progressively worse. She states she quit smoking for 1 month and gained a significant amount of weight. She started smoking again and is currently smoking 1.5 ppd. No fevers, chills or night sweats. Lower extremity edema. Patient has been without her as needed Albuterol inhaler for awhile. She previously tried Spiriva, but stated it made her heart race. Currently wearing 3 L supplemental oxygen continuously. States she was discharged from the hospital in February 2023 on 4L, but she has decreased it to 3L. She checks her pulse ox at times and is in the mid-80s if she is consciously breathing through her nose. Consistently wearing CPAP with all sleep. DME: Miriam HISTORY REVIEWED (electronic chart updated): PAST MEDICAL [...] Renal cell carcinoma of right kidney (HCC) 2010 S/P partial right nephrectomy Sleep apnea uses CPAP Tobacco abuse Urinary calculus, unspecified Renal stones PAST SURGICAL HISTORY Procedure Laterality Date APPENDECTOMY 09/02/2019 DILATION & CURETTAGE DX&/THER NONOBSTETRIC Dilation & curettage LAPAROSCOPY SURG CHOLECYSTECTOMY 2003 Cholecystectomy, lap LITHOTRIPSY XTRCORP SHOCK WAVE Lithotripsy x 2 Stents x 3 MRI ABDOMEN W/ & W/O CONTRAST 10/16/2021 10/16/2021 [facility] MRI w/wo IVCON: no patterns to suggest malignancy on enhancement. Normal portal and hepatic veins. Staghorn calculus in the left kidney upper pole, 3cm simple cyst attached to gallbladder duct, simple small liver cyst inferior right lobe, right adrenal adenoma with benign characteristics. OTHER right lower portion of kidney removed in 2010 PAST SURGICAL HISTORY OF Repair of right [...] use: No Current Outpatient Medications Medication Sig blood sugar diagnostic (BLOOD GLUCOSE TEST) test strip Test blood sugar(s) 2 times daily: fasting am and 2 hour after largest meal. Dx: Type 2 DM - Controlled E11.9 Insulin: Yes insulin lispro (HUMALOG) 200 unit/mL (3 mL) injection 63 units am, 3 units afternoon, 93 units before evening meal omeprazole (PRILOSEC) 20 mg capsule Take 1 capsule by mouth daily before breakfast. 1/2 hr before meal. venlafaxine ER (EFFEXOR XR) 150 mg 24 hr capsule Take 1 capsule by mouth once daily. gabapentin (NEURONTIN) 300 mg capsule Take 1 capsule by mouth three times a day for 90 days. Appointment needed for further refills. exenatide (BYETTA) 10 mcg/dose(250 mcg/mL) 2.4 mL injection Inject dose 5-60 prior to breakfast & dinner. Minimum 6 hours between meals. insulin glargine (LANTUS SOLOSTAR U-100 INSULIN) 100 unit/mL (3 mL) Inject 83 Units subcutaneously two times a day. lisinopril-hydroCHLOROthiazide (ZESTORETIC) 20-12.5 mg per tablet Take 2 tablets by mouth once daily. atenolol (TENORMIN) 50 mg tablet Take 1 tablet by mouth once daily. atorvastatin (LIPITOR) 40 mg tablet Take 1 tablet by mouth daily at bedtime. metFORMIN ER (GLUCOPHAGE XR) 500 mg 24 hr tablet Take 2 tablets by mouth two times a day with meals. potassium chloride (K-TAB) 10 mEq tablet Take 2 tablets by mouth daily with breakfast. busPIRone (BUSPAR) 5 mg tablet Take 1 tablet by mouth three times a day. furosemide (LASIX) 40 mg tablet Take 1 tablet by mouth once daily. Insulin [place], Disposable, (ULTICARE PEN NEEDLE) 29 gauge x 1/2 USE FIVE TIMES A DAY ammonium lactate (LAC-HYDRIN) 12 % cream Apply 1 application to affected area as needed. flash glucose sensor (FREESTYLE TERRELL 2 SENSOR) kit 1 Each four times daily. insulin lispro (HUMALOG) 200 unit/mL (3 [...] daily. Apply sparingly to area for rash/itching. Lancets lancets Test blood sugar(s) 2 times daily. Dx: Type 2 DM - Uncontrolled E11.65 Insulin: Yes albuterol HFA (PROVENTIL HFA, VENTOLIN HFA) 90 mcg/actuation inhaler Inhale 2 Puffs as instructed every 4 hours as needed. flash glucose scanning reader (FREESTYLE TERRELL 2 READER) 1 Each four times daily. CPAP 11 cm via nasal mask with 20 min ramp and humidification. OXYGEN, HOME THERAPY, 2 L/min by Nasal Cannula route continuous. COMPOUNDED PRESCRIPTION C-PAP MASK HOSES, FILTERS glucose 4 gram chewable tablet Take 4 tablets by mouth as needed. For sugar less than 70 COMPOUNDED PRESCRIPTION COMPRESSION STOCKINGS 20-30 mm Knee high. DX: venous insufficiency COMPOUNDED PRESCRIPTION cpap supplies: sleep apnea COMPOUNDED PRESCRIPTION CPAP mask No current facility-administered medications for this visit. ALLERGIES Allergen Reactions Jardiance [Empaglif* Itching Pt reported yeast infection Morphine Itching Tetanus And Diphthe* Other: See Comments ? Reactive lymphadenopathy Toradol [Ketorolac * Heart racing and nightmares REVIEW OF SYSTEMS: All other systems reviewed as negative except for what is noted in HPI and review of systems. PHYSICAL EXAMINATION: VIDEO EXAM: (if completed, performed via video enabled technology) GENERAL: alert and appropriate, in no distress, well-hydrated, well nourished, and happy, smiling, interactive RESPIRATORY: breathing non-labored. No conversational dyspnea. NEUROLOGIC: no obvious deficit DATA REVIEW: PFT 2020: Review of pulmonary function test show mainly restriction, small airways obstruction and normal diffusing capacity CT chest, 06/09/2023 IMPRESSION: 1. Small nodular ground glass opacities in the right lower lobe are stable from the most recent comparison but are decreased in size from 2021 indicating infectious/inflammatory process. No new pulmonary nodule. 2. Mediastinal lymphadenopathy is not significantly changed. 3. Remainder of the findings are also unchanged. Comparison: Multiple CT exams of the chest dating back to 04/29/2017. RESULT: Limitations: Quantum mottle artifact due to large body habitus and mild breathing motion artifact. Lines, tubes, and devices: None. Lung parenchyma and airways: No consolidation or edema. Mild scarring in the lingula stable. A few small nodular ground glass opacities measuring 6 mm a left and right lower lobe are unchanged. Some of these are decreased in size from ground glass nodules in 2021 suggesting infectious/inflammatory process. No new nodule. The central airways are patent. Pleural space: No pleural effusion. No pleural thickening. Lower neck, lymph nodes, and mediastinum: The imaged thyroid gland is minimally included. Mediastinal lymphadenopathy appears similar to the prior exam with the limitations of a noncontrast exam. A community relations representative right paratracheal mediastinal node measures 3.1 x 2.6 cm (axial series 5, image 47), compared to 2.8 x 2.1 cm remeasured at a similar fashion with respect to differences in scan plane. An additional enlarged AP window lymph node measuring 1.9 cm in short axis (axial image 40) is unchanged). No evidence of hilar lymphadenopathy with limitations of a noncontrast exam. Heart, pericardium, and thoracic vessels: The thoracic aorta is normal in caliber. Stable dilation of the main pulmonary artery. Stable cardiomegaly. Mild coronary artery atherosclerotic calcifications are again noted, although the study is not optimized for coronary assessment. No pericardial effusion or thickening. Bones and soft tissues: No destructive bone lesion. No acute abnormality. Upper abdomen: No acute abnormality in the imaged upper abdomen. Stable right adrenal nodule likely reflecting adenoma measuring 2.1 cm. Localizer images: No additional findings. CT chest, 05/13/2022 IMPRESSION: Right lung groundglass nodule is stable. No developing suspicious nodule or mass Stable adenopathy. Stable bilateral adrenal nodules New left thyroid nodule. Ultrasound recommended ASSESSMENT/PLAN: 1. Chronic obstructive pulmonary disease, unspecified COPD type (HCC) - ICD9: 496, ICD10: J44.9 (primary diagnosis) Last PFTs in 2020 demonstrated mainly restriction, small airways obstruction and normal diffusing capacity. Degree of obstruction most likely masked by severe obesity. Obtain updated PFTs. - ALBUTEROL SULFATE HFA 90 MCG/ACTUATION AEROSOL INHALER - SPIROMETRY BASELINE ONLY - OXIMETRY WITH AMBULATION 2. Lung nodules - ICD9: 793.19, ICD10: R91.8 Stable on most recent CT chest. 3. Cigarette smoker - ICD9: 305.1, ICD10: F17.210 Cessation encouraged. Physiologic and physical aspects of tobacco addiction as well as strategies for quitting were discussed. Counseling was given focusing on the harmful effects of this addiction especially given the patient's medical condition(s) which will be worsened because of the chemicals in tobacco. 4. Morbid obesity (HCC) - ICD9: 278.01, ICD10: E66.01 Weight loss advised. Portions of this documentation were copied and pasted from previous office visit notes in order to provide a cohesive continuity of the history. The note has been reviewed and edited and updated as necessary. Pilar Cardoza PA-C documented in this encounter [facility] 08-10-2023 Telephone encounter Note The patient has been identified by name and date of : Yes Caregiver verified no other encounters exist for this prescription request: Yes Caregiver confirmed with patient/requestor that no other refills are due, in the near future, with this provider at this time: Yes The last office visit in the department: 06/09/2023 Does the patient have a future office visit with this provider/department: Yes 12/12/2023 Requested Prescriptions Pending Prescriptions Disp Refills omeprazole (PRILOSEC) 20 mg capsule 30 capsule 5 Sig: Take 1 capsule by mouth daily before breakfast. 1/2 hr before meal. venlafaxine ER (EFFEXOR XR) 150 mg 24 hr capsule 30 capsule 5 Sig: Take 1 capsule by mouth once daily. Jovany Rodriguez RN August 10, 2023 11:09 AM [facility] 08-10-2023 Miscellaneous Notes The patient has been identified by name and date of : Yes Caregiver verified no other encounters exist for this prescription request: Yes Caregiver confirmed with patient/requestor that no other refills are due, in the near future, with this provider at this time: Yes The last office visit in the department: 06/09/2023 Does the patient have a future office visit with this provider/department: Yes 12/12/2023 Requested Prescriptions Pending Prescriptions Disp Refills omeprazole (PRILOSEC) 20 mg capsule 30 capsule 5 Sig: Take 1 capsule by mouth daily before breakfast. 1/2 hr before meal. venlafaxine ER (EFFEXOR XR) 150 mg 24 hr capsule 30 capsule 5 Sig: Take 1 capsule by mouth once daily. Jovany Rodriguez RN August 10, 2023 11:09 AM documented in this encounter [facility] 08-08-2023 Telephone encounter Note The patient has been identified by name and date of : Yes Caregiver verified no other encounters exist for this prescription request: Yes Caregiver confirmed with patient/requestor that no other refills are due, in the near future, with this provider at this time: Yes The last office visit in the department: 06/09/2023 Does the patient have a future office visit with this provider/department: Yes 12/12/2023 Requested Prescriptions Pending Prescriptions Disp Refills blood sugar diagnostic (BLOOD GLUCOSE TEST) test strip 200 Strip 3 Sig: Test blood sugar(s) 2 times daily: fasting am and 2 hour after largest meal. Dx: Type 2 DM - Controlled E11.9 Insulin: Yes insulin lispro (HUMALOG) 200 unit/mL (3 mL) injection 3 Each 0 Si units am, 3 units afternoon, 93 units before evening meal Afia Lee RN August 08, 2023 10:50 AM [facility] 08-08-2023 Miscellaneous Notes The patient has been identified by name and date of : Yes Caregiver verified no other encounters exist for this prescription request: Yes Caregiver confirmed with patient/requestor that no other refills are due, in the near future, with this provider at this time: Yes The last office visit in the department: 06/09/2023 Does the patient have a future office visit with this provider/department: Yes 12/12/2023 Requested Prescriptions Pending Prescriptions Disp Refills blood sugar diagnostic (BLOOD GLUCOSE TEST) test strip 200 Strip 3 Sig: Test blood sugar(s) 2 times daily: fasting am and 2 hour after largest meal. Dx: Type 2 DM - Controlled E11.9 Insulin: Yes insulin lispro (HUMALOG) 200 unit/mL (3 mL) injection 3 Each 0 Si units am, 3 units afternoon, 93 units before evening meal Afia Lee RN August 08, 2023 10:50 AM documented in this encounter [facility] 08-01-2023 Telephone encounter Note Letter faxed [facility] 08-01-2023 Miscellaneous Notes Letter faxed Letter reprinted with patient's date of added. Placed on provider's desk for signature. Will fax once signed. Becky Jimenez MA August 01, 2023 10:07 AM Pt called back and [employer] did not get the faxed letter dated 07-13-23 and was faxed on 07-15-23. Rosa Maria reports she had given the wrong fax number. Please refax a signed copy with pt's date of also on this. May have to hand write this on. Fax to [phone]. Please advise pt when this has been done. Yesenia Blanco LPN documented in this encounter [facility] 08-01-2023 Telephone encounter Note Letter reprinted with patient's date of added. Placed on provider's desk for signature. Will fax once signed. Becky Jimenez MA August 01, 2023 10:07 AM [facility] 08-01-2023 Telephone encounter Note Pt called back and [employer] did not get the faxed letter dated 07-13-23 and was faxed on 07-15-23. Rosa Maria reports she had given the wrong fax number. Please refax a signed copy with pt's date of also on this. May have to hand write this on. Fax to [phone]. Please advise pt when this has been done. Yesenia Blanco LPN [facility] 07-28-2023 Telephone encounter Note Form was faxed last week, checked file folder with completed faxes. Becky Jimenez MA July 28, 2023 3:48 PM [facility] 07-28-2023 Miscellaneous Notes Form was faxed last week, checked file folder with completed faxes. Becky Jimenez MA July 28, 2023 3:48 PM Checking to see if form was completed? Type of form: [facility], [place] oxygen order Form received via walk in When form is completed, [facility] [phone] Form has been forwarded to Physician Desk: SARAI Painter LPN documented in this encounter [facility] 07-28-2023 Telephone encounter Note Checking to see if form was completed? [facility] 07-19-2023 Telephone encounter Note Patient has been identified by name and date of : Yes, Patient phones for refill(s): Requested Prescriptions Pending Prescriptions Disp Refills insulin lispro (HUMALOG) 200 unit/mL (3 mL) injection 3 Each 0 Si units am, 3 units afternoon, 93 units before evening meal Date of last office visit in primary care: 06/09/2023 Date of next office visit in primary care: 12/12/2023 Please advise. Thank you. Kia Sorto. [facility] 07-19-2023 Miscellaneous Notes Patient has been identified by name and date of : Yes, Patient phones for refill(s): Requested Prescriptions Pending Prescriptions Disp Refills insulin lispro (HUMALOG) 200 unit/mL (3 mL) injection 3 Each 0 Si units am, 3 units afternoon, 93 units before evening meal Date of last office visit in primary care: 06/09/2023 Date of next office visit in primary care: 12/12/2023 Please advise. Thank you. Kia Sorto. documented in this encounter [facility] 07-18-2023 Telephone encounter Note Type of form: [facility], [place] oxygen order Form received via walk in When form is completed, Fax form to [facility] [place] [phone] Form has been forwarded to Physician Desk: SARAI Painter LPN [facility] 07-15-2023 Telephone encounter Note Faxed as requested. [facility] 07-15-2023 Miscellaneous Notes Faxed as requested. Placed on provider desk for signature Printed. Called to clarify with Rosa Maria. She states the letter is for both her and her daughter whom is on the same case with [employer]. They both are unable to complete work program. Rosa Maria unable due to being on oxygen and Nini Garcia (Daughter) unable due to being fathers primary caregiver. Both names need to be on letter along with case # provided. Cristina Gardner MA To make sure I understand to write it correctly. Is this for her daughter? Patient reports she gets food stamps from [employer]. Reports she is unable to do their work program b/c she is on oxygen and in a wheel chair. Reports her had a stroke and she is unable to help him with bathing, getting dressed, getting out of bed or chair, so her daughter takes care of him. Patient asking pcp to write a letter stating patient is unable to care for and daughter is his sole care provider. Patient asking pcp to fax this letter to [employer] with case # written on it- [id number] -to fax # [phone] documented in this encounter [facility] 07-14-2023 Telephone encounter Note Prescription Refill Information The patient has been identified by name and date of : Yes Caregiver verified no other encounters exist for this prescription request: Yes Caregiver confirmed with patient/requestor that no other refills are due, in the near future, with this provider at this time: Yes The last office visit in the department: 06/09/23 Does the patient have a future office visit with this provider/department: Yes Requested Prescriptions Pending Prescriptions Disp Refills omeprazole (PRILOSEC) 20 mg capsule 30 capsule 0 Sig: Take 1 capsule by mouth daily before breakfast. 1/2 hr before meal. venlafaxine ER (EFFEXOR XR) 150 mg 24 hr capsule 30 capsule 0 Sig: Take 1 capsule by mouth once daily. gabapentin (NEURONTIN) 300 mg capsule 90 capsule 2 Sig: Take 1 capsule by mouth three times a day for 90 days. Appointment needed for further refills. Amber Lewis LPN July 14, 2023 1:36 PM [facility] 07-14-2023 Miscellaneous Notes Prescription Refill Information The patient has been identified by name and date of : Yes Caregiver verified no other encounters exist for this prescription request: Yes Caregiver confirmed with patient/requestor that no other refills are due, in the near future, with this provider at this time: Yes The last office visit in the department: 06/09/23 Does the patient have a future office visit with this provider/department: Yes Requested Prescriptions Pending Prescriptions Disp Refills omeprazole (PRILOSEC) 20 mg capsule 30 capsule 0 Sig: Take 1 capsule by mouth daily before breakfast. 1/2 hr before meal. venlafaxine ER (EFFEXOR XR) 150 mg 24 hr capsule 30 capsule 0 Sig: Take 1 capsule by mouth once daily. gabapentin (NEURONTIN) 300 mg capsule 90 capsule 2 Sig: Take 1 capsule by mouth three times a day for 90 days. Appointment needed for further refills. Amber Lewis LPN July 14, 2023 1:36 PM documented in this encounter [facility] 07-14-2023 Telephone encounter Note TC to patient who verbalized understanding of providers message below and will call in 2 wks with readings. HIPOLITO Trevino [facility] 07-14-2023 Miscellaneous Notes TC to patient who verbalized understanding of providers message below and will call in 2 wks with readings. HIPOLITO Trevino Sugars are up slightly. Cortisol is ok. Call sugars in to us in two weeks documented in this encounter [facility] 07-14-2023 Telephone encounter Note Placed on provider desk for signature [facility] 07-14-2023 Telephone encounter Note Sugars are up slightly. Cortisol is ok. Call sugars in to us in two weeks [facility] 07-13-2023 Telephone encounter Note Printed. [facility] 07-13-2023 Telephone encounter Note Called to clarify with Rosa Maria. She states the letter is for both her and her daughter whom is on the same case with [employer]. They both are unable to complete work program. Rosa Maria unable due to being on oxygen and Nini Garcia (Daughter) unable due to being fathers primary caregiver. Both names need to be on letter along with case # provided. Cristina Gardner MA [facility] 07-13-2023 Telephone encounter Note To make sure I understand to write it correctly. Is this for her daughter? [facility] 07-13-2023 Telephone encounter Note Patient reports she gets food stamps from [employer]. Reports she is unable to do their work program b/c she is on oxygen and in a wheel chair. Reports her had a stroke and she is unable to help him with bathing, getting dressed, getting out of bed or chair, so her daughter takes care of him. Patient asking pcp to write a letter stating patient is unable to care for and daughter is his sole care provider. Patient asking pcp to fax this letter to [employer] with case # written on it- [id number] -to fax # [phone] [facility] 07-07-2023 Telephone encounter Note Patient notified. [facility] 07-07-2023 Miscellaneous Notes Patient notified. Whoops! The following approved medication requests have been transmitted electronically. Requested Prescriptions Signed Prescriptions Disp Refills exenatide (BYETTA) 10 mcg/dose(250 mcg/mL) 2.4 mL injection 30 Each 2 Sig: Inject dose 5-60 prior to breakfast & dinner. Minimum 6 hours between meals. Authorizing Provider: Jovany RIZZO PA-C National shortage. No supplies as of yet, Trial : The following approved medication requests have been transmitted electronically. Requested Prescriptions Pending Prescriptions Disp Refills exenatide (BYETTA) 10 mcg/dose(250 mcg/mL) 2.4 mL injection 30 Each 2 Sig: Inject dose 5-60 prior to breakfast & dinner. Minimum 6 hours between meals. Jovany Rizzo PA-C Pt called not sure what to do about the Trulicity backorder. It seems to be on backorder everywhere. She has not had it for a while. documented in this encounter [facility] 07-07-2023 Telephone encounter Note Whoops! The following approved medication requests have been transmitted electronically. Requested Prescriptions Signed Prescriptions Disp Refills exenatide (BYETTA) 10 mcg/dose(250 mcg/mL) 2.4 mL injection 30 Each 2 Sig: Inject dose 5-60 prior to breakfast & dinner. Minimum 6 hours between meals. Authorizing Provider: Jovany RIZZO PA-C [facility] 07-07-2023 Telephone encounter Note National shortage. No supplies as of yet, Trial : The following approved medication requests have been transmitted electronically. Requested Prescriptions Pending Prescriptions Disp Refills exenatide (BYETTA) 10 mcg/dose(250 mcg/mL) 2.4 mL injection 30 Each 2 Sig: Inject dose 5-60 prior to breakfast & dinner. Minimum 6 hours between meals. Jovany Rizzo PA-C [facility] 07-05-2023 Telephone encounter Note Pt called not sure what to do about the Trulicity backorder. It seems to be on backorder everywhere. She has not had it for a while. [facility] Work Phone: 06-23-2023 Telephone encounter Note Called and verified with [employer] name brand is covered. Patient was notified in future to ask for name brand due to new employees may not be aware Patti Panda MA [facility] 06-23-2023 Miscellaneous Notes Called and verified with [employer] name brand is covered. Patient was notified in future to ask for name brand due to new employees may not be aware Patti Panda MA PRIOR AUTHORIZATION Medication for Prior Authorization: insulin glargine (Lantus) Insurance Company: [employer] Patient insurance ID number: [id number] Afia Lee RN documented in this encounter [facility] 06-23-2023 Telephone encounter Note PRIOR AUTHORIZATION Medication for Prior Authorization: insulin glargine (Lantus) Insurance Company: [employer] Patient insurance ID number: [id number] Afia Lee RN [facility] 06-20-2023 Telephone encounter Note 05/13/2022-1 year ago [facility] 06-20-2023 Miscellaneous Notes 05/13/2022-1 year ago Insurance won't cover sooner than 3 months Had it done in april Gigi Saini PA-C Patient coming in tomorrow to have labs done. Wanting to know if she can have HGBA1C done that is due end of July. Pended for review. Notified patient that would let her know if provider was able to review request but was not sure given the time frame. Pended with previous diagnosis. Rakel Douglas RN documented in this encounter [facility] 06-20-2023 Telephone encounter Note Insurance won't cover sooner than 3 months Had it done in april Gigi Saini PA-C [facility] 06-20-2023 Telephone encounter Note The following approved medication requests have been transmitted electronically. Requested Prescriptions Signed Prescriptions Disp Refills insulin glargine (LANTUS SOLOSTAR U-100 INSULIN) 100 unit/mL (3 mL) 6 Each 3 Sig: Inject 83 Units subcutaneously two times a day. Authorizing Provider: Jovany RIZZO PA-C [facility] 06-20-2023 Miscellaneous Notes The following approved medication requests have been transmitted electronically. Requested Prescriptions Signed Prescriptions Disp Refills insulin glargine (LANTUS SOLOSTAR U-100 INSULIN) 100 unit/mL (3 mL) 6 Each 3 Sig: Inject 83 Units subcutaneously two times a day. 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 No need to contact after sending Patti Panda MA [facility] 06-20-2023 Telephone encounter Note Patient coming in tomorrow to have labs done. Wanting to know if she can have HGBA1C done that is due end of July. Pended for review. Notified patient that would let her know if provider was able to review request but was not sure given the time frame. Pended with previous diagnosis. Rakel Douglas RN [facility] 06-17-2023 Telephone encounter Note Notified patient of below. Will send her information of to Dr Yepez's office and then send her the information to get herself scheduled to her [facility]. [facility] 06-17-2023 Miscellaneous Notes Notified patient of below. Will send her information of to Dr Yepez's office and then send her the information to get herself scheduled to her [facility]. Please advise labs show she has diabetic nephrosis pretty severely with marked increase in urine microalbumin from last check. Recommend Consult to nephrology: Dr. Alejandro Macias [facility] in [place], would have to travel to stay in [facility]. Also recommend some additional testing for pituitary function with concerns for Willard's: obesity, striae, weakness, swelling, facies, adrenal adenoma. Should be done 730-8a please. Can wait til July Hgba1c was ordered for July Telephone on 06/14/23 CORTISOL, SERUM CONSULT TO NEPHROLOGY Gigi Saini PA-C documented in this encounter [facility] 06-16-2023 Telephone encounter Note See phone encounter from 06/14/2023 Gigi Saini PA-C [facility] 06-16-2023 Miscellaneous Notes See phone encounter from 06/14/2023 Gigi Saini PA-C Patient calling to ask if SARAI Painter could advise on her recent lab results from 06/09/23. Thank you. documented in this encounter [facility] 06-15-2023 Telephone encounter Note Patient calling to ask if SARAI Painter could advise on her recent lab results from 06/09/23. Thank you. [facility] 06-14-2023 Telephone encounter Note Please advise labs show she has diabetic nephrosis pretty severely with marked increase in urine microalbumin from last check. Recommend Consult to nephrology: Dr. Alejandro Macias [facility] in [place], would have to travel to stay in [facility]. Also recommend some additional testing for pituitary function with concerns for Alma's: obesity, striae, weakness, swelling, facies, adrenal adenoma. Should be done 730-8a please. Can wait til July Hgba1c was ordered for July Telephone on 06/14/23 CORTISOL, SERUM CONSULT TO NEPHROLOGY Thanks, Gigi Rizzo PA-C [facility] 06-09-2023 History of Present illness Narrative 57 year old female with c/o here for 6 month med check and review Essential Hypertension: 09/16/2020 echocardiogram preop: LV size and LVSF WNL, EF 60% 5% RV LA mildly dilated Limited apical views No significant valvular heart disease but technically very difficult study Current meds: Furosemide 40 mg daily Lisinopril hydrochlorothiazide 20-12.5 mg 2 tablets once daily Atenolol 50 mg daily Potassium chloride 10 mEq 2 tablets daily with breakfast Patient is compliant with meds Monitors bp at home: Yes once in awhile. If yes, readings: 130's/ 80-89 Denies side effects: Yes. Chest pain: some sharp chest pain surfacy- always has that off and on, can [...] Last 3 Encounter BP Readings: Date: BP: 06/09/2023 132/84 11/26/2022 130/74 09/30/2022 138/78 Last 2 Encounter Wt Readings: Date: Wt: 06/09/2023 0 kg () 11/26/2022 144.7 kg (319 lb) Did not complete outstanding lab orders Latest Ref Rng 10/14/2021 05/13/2022 07/23/2022 WBC 3.70 - 11.00 k/uL 11.88 (H) 11.36 (H) RBC 3.90 - 5.20 m/uL 5.37 (H) 5.05 Hemoglobin 11.5 - 15.5 g/dL 14.6 13.8 Hematocrit 36.0 - 46.0 % 45.8 42.7 MCV 80.0 - 100.0 fL 85.3 84.6 MCH 26.0 - 34.0 pg 27.2 27.3 MCHC 30.5 - 36.0 g/dL 31.9 32.3 RDW-CV 11.5 - 15.0 % 14.1 14.8 Platelet Count 150 - 400 k/uL 215 294 MPV 9.0 - 12.7 fL 9.5 10.3 Neut% % 70.7 76.2 Abs Neut (ANC) 1.45 - 7.50 k/uL 8.39 (H) 8.66 (H) Lymph% % 18.0 15.1 Abs Lymph 1.00 - 4.00 k/uL 2.14 1.71 [place]% % 6.6 6.4 Abs [place] <0.87 k/uL 0.79 0.73 Eosin% % 3.7 1.6 Abs Eosin <0.46 k/uL 0.44 0.18 Baso% % 0.5 0.4 Abs Baso <0.11 k/uL 0.06 0.05 Immature Gran % % 0.5 0.3 IMMATURE GRANS (ABS) <0.10 k/uL 0.06 0.03 NRBC /100 WBC 0.0 0.0 Absolute nRBC <0.01 k/uL <0.01 <0.01 DTYPE Auto Auto Protein, Total 6.3 - 8.0 g/dL 7.1 7.2 Albumin 3.9 - 4.9 g/dL 3.6 (L) 3.7 (L) Calcium 8.5 - 10.2 mg/dL 9.3 9.8 Bilirubin, Total 0.2 - 1.3 mg/dL 0.3 <0.2 (L) Alkaline Phosphatase 34 - 123 U/L 105 96 AST 13 - 35 U/L 17 10 (L) ALT 7 - 38 U/L 16 9 Glucose 74 - 99 mg/dL 117 (H) 210 (H) BUN 7 - 21 mg/dL 18 21 Creatinine 0.58 - 0.96 mg/dL 0.47 (L) 0.45 (L) Sodium 136 - 144 mmol/L 140 138 Potassium 3.7 - 5.1 mmol/L 3.6 (L) 3.7 Chloride 97 - 105 mmol/L 98 100 CO2 22 - 30 mmol/L 29 32 (H) Anion Gap 9 - 18 mmol/L 13 6 (L) eGFR >=60 mL/min/1.73m 113 114 Cholesterol, Total <200 mg/dL 103 125 Triglyceride <150 mg/dL 224 (H) 250 (H) HDL Cholesterol >39 mg/dL 32 (L) 37 (L) Non HDL Cholesterol <130 mg/dL 71 88 Fasting Time hrs 12 10 VLDL Cholesterol <30 mg/dL 45 (H) 50 (H) TC:HDL Ratio <5.10 3.22 3.38 LDL Cholesterol <100 mg/dL 26 38 LDL:HDL Ratio <2.54 0.81 1.03 Mixed hyperlipidemia: Current medication Atorvastatin 40 mg daily Taking medication consistently Yes Observing low cholesterol high fiber diet Yes Muscle aches chronic, has night time RLS Stomach complaints/ diarrhea alternates with constipation, more on the latter. May go a couple days without BM, then diarrhea/ loose. If eats bread seems to keep going Last 2 Lipids: Did not complete lab, no new data Latest Ref Rng 10/14/2021 05/13/2022 Cholesterol, Total <200 mg/dL 103 [...] segments. Anterior tibial artery : patent . Feeling restless in legs Confirms 06/09/2023: Can't walk more than 100 feet, back hurts and causes weakness in legs. Chronic hypoxemic respiratory failure (hcc) Chronic obstructive pulmonary disease, unspecified copd type (hcc) Obstructive sleep apnea syndrome Lung nodules Current medications: O2 3 L/min nasal cannula continuous (was on 4l in hospital) CPAP 11 cm with 20-minute ramp and humidification [place]: Has established with Dr. Knox. Interval history: 09/30/2022 Pilar Cardoza PA-C Pending CT chest 05/13/2022 Right lung groundglass nodule is stable. [...] L/min nasal cannula Worsening shortness of breath: Sometimes with walking, doesn't take much. Cough: Coughing comes from drainage in throat, not lungs. Confirms periodically, wheezing: Yes. Mild, off and on Smokin/2 PPD, goes outside to smoke. Tried patches for a while: plans to try again. Compliant with medications: Yes. Using rescue inhaler: none available- hasn't needed. 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 Yes Medical Issues / Complications: hypertension and hyperlipidemia Checking blood sugars at home? Off and on. 240-300s at times, average about 250. Terrell 139 this morning. Average Terrell for month 171 Watching diet? Yes- doing fairly well. Does eat spaghetti. Doing keto most of the time with daughter. Physical Activity: Sedentary, just walking in house-helping to BR often. Hypoglycemic spells? Has had a couple lows at night. About 3weeks ago 80 something. Any visual disturbance? No Chest pain? No New numbness, tingling or loss of sensation? confirms today: Chronic in fingers, nothing new. One day whole body was numb but realized anxiety attack Any recent foot problems, sores or rashes? No Any recent or sudden weight loss? Hasn't checked for awhile Change in urination? No. Rarely up at night once Any recent illness? Yes, URI Last eye exam: due. Last foot exam: due Hasn'tcompleted 2 sets of outstanding lab HBA1C: Hemoglobin A1C (%) Date Value 05/13/2022 7.1 10/14/2021 8.4 10/22/2020 9.8 03/24/2020 10.3 CMP: Glucose 210 05/13/2022 BUN 21 05/13/2022 Creatinine (POCT) 0.45 05/13/2022 Sodium 138 05/13/2022 Potassium 3.7 05/13/2022 Chloride 100 05/13/2022 CO2 32 05/13/2022 Protein, Total 7.2 05/13/2022 Albumin 3.7 05/13/2022 Calcium 9.8 05/13/2022 Alkaline Phosphatase 96 05/13/2022 Bilirubin, Total <0.2 05/13/2022 AST 10 05/13/2022 ALT 9 05/13/2022 Latest Ref Rng 03/24/2020 10/14/2021 Creatinine, Ur Random (UCRR) 20.0 - 300.0 mg/dL 25.5 56.5 Albumin, Urine Random mg/L 238.9 565.7 Albumin/Creat Ratio <30 mg/g 937 (H) 1,001 (H) Last 2 Encounter Wt Readings: Date: Wt: 06/16/2021 147.4 kg (325 lb) 11/07/2020 149.4 kg (329 lb 6.4 oz) Chronic depression Generalized anxiety disorder Panic disorder Current medications: Buspirone 5 mg 3 times daily Venlafaxine ER 225 mg (150+75) daily Feels like anxiety is just part of her personality Feels down a few days each month. Worries about grandchildren who live with her. Worries constantly, playing out whole scenarios. Feels anxiety worse, rocks a lot for comfort Polycythemia secondary to smoking Resolved on last lab as above Irritable bowel syndrome, with both constipation and diarrhea: Not on keto any longer- too expensive Having trouble eiht feeling to go but noting nothing out., Affected by diabetic meds: diarrhea, constipation. Has [...] ABDOMEN W/ & W/O CONTRAST 10/16/2021 10/16/2021 [facility] MRI w/wo IVCON: no patterns to suggest [...] Nodules gallbladder duct cyst Adrenal Adenoma, Right Uncontrolled Type 2 Diabetes Mellitus With Hyperglycemia (Hcc) Polycythemia Microalbuminuria Current Outpatient Medications Medication Sig Dispense Refill insulin lispro (HUMALOG) 200 unit/mL (3 mL) injection 63 units am, 3 units afternoon, 93 units before evening meal 3 Each 0 omeprazole (PRILOSEC) 20 mg capsule Take 1 capsule by mouth daily before breakfast. 1/2 hr before meal. 30 capsule 0 venlafaxine ER (EFFEXOR XR) 150 mg 24 hr capsule Take 1 capsule by mouth once daily. 30 capsule 0 dulaglutide (TRULICITY) 4.5 mg/0.5 mL pen injector Inject 4.5 mg subcutaneously one time a week. 12 Each 1 gabapentin (NEURONTIN) 300 mg capsule Take 1 capsule by mouth three times a day for 90 days. Appointment needed for further refills. 90 capsule 2 lisinopril-hydroCHLOROthiazide (ZESTORETIC) 20-12.5 mg per tablet Take 2 tablets by mouth once daily. 60 tablet 5 atenolol (TENORMIN) 50 mg tablet Take 1 tablet by mouth once daily. 30 tablet 5 atorvastatin (LIPITOR) 40 mg tablet Take 1 tablet by mouth daily at bedtime. 30 tablet 5 metFORMIN ER (GLUCOPHAGE XR) 500 mg 24 hr tablet Take 2 tablets by mouth two times a day with meals. 120 tablet 11 potassium chloride (K-TAB) 10 mEq tablet Take 2 tablets by mouth daily with breakfast. 60 tablet 5 busPIRone (BUSPAR) 5 mg tablet Take 1 tablet by mouth three times a day. 90 tablet 5 furosemide (LASIX) 40 mg tablet Take 1 tablet by mouth once daily. 28 tablet 5 Insulin [place], Disposable, (ULTICARE PEN NEEDLE) 29 gauge x 1/2 USE FIVE TIMES A DAY 200 Each 5 ammonium lactate (LAC-HYDRIN) 12 % cream Apply 1 application to affected area as needed. 56 g 1 flash glucose sensor (FREESTYLE TERRELL 2 SENSOR) kit 1 Each four times daily. 6 Kit 3 insulin degludec (TRESIBA FLEXTOUCH U-200) 200 unit/mL [...] 500 go to ER 4 Each 2 triamcinolone acetonide (KENALOG) 0.1 % cream Apply 1 application to affected area three times daily. Apply sparingly to area for rash/itching. 80 g 0 blood sugar diagnostic (BLOOD GLUCOSE TEST) test strip Test blood sugar(s) 2 times daily: fasting am and 2 hour after largest meal. Dx: Type 2 DM - Controlled E11.9 Insulin: Yes 200 Strip 3 Lancets lancets Test blood sugar(s) 2 times daily. Dx: Type 2 DM - Uncontrolled E11.65 Insulin: Yes 100 Each 11 albuterol HFA (PROVENTIL HFA, VENTOLIN HFA) 90 mcg/actuation inhaler Inhale 2 Puffs as instructed every 4 hours as needed. 1 Each 5 flash glucose scanning reader (InventicSTYLE TERRELL 2 READER) 1 Each four times daily. 1 Each 0 CPAP 11 cm via nasal mask with 20 min ramp and humidification. 1 Device 0 OXYGEN, HOME THERAPY, 2 L/min by Nasal Cannula route continuous. COMPOUNDED PRESCRIPTION C-PAP MASK HOSES, FILTERS 1 [...] current facility-administered medications for this visit. Hepatitis C Screening Never done HIV Screening Never done BP Controlled (<130/80) Never done Pap Testing Never done Alpha-1 Antitrypsin Deficiency Screening Never done HPV Testing Never done Dilated Retinal Exam due on 11/06/2015 Mammogram Screening due on 03/31/2018 Diabetic Foot Exam due on 06/16/2022 Urine Albumin:Creatinine Ratio due on 10/14/2022 Covid-19 Vaccine() due on 10/15/2022 HbA1C due on 11/13/2022 LDL Cholesterol due on 05/14/2023 Lung Cancer Screening due on 05/14/2023 EXAM: BP 132/84 Pulse 102 Resp 20 LMP 06/12/2015 SpO2 97% Pleasant obese adult woman in no acute distress. Alert and oriented all spheres. Normal affect and cognition. Speech normal. No deficits to learning or comprehension. Skin warm, dry, pink to lips and nailbeds. Normal turgor. Respirations regular and unlabored. HEENT: NCAT. No scleral icterus or conjunctival injection. TM's clear. Nose and oropharynx free from injection or lesion. Oral membranes moist and pink. No cervical lymph nodes. Thyroid non-tender, no masses, or enlargement. Carotids pulses 2+/4+ without bruits. No JVD with HOB at 30 degrees. Chest is normal shape. Lungs are clear to all zapien with good air exchange through out. HRRR without murmur or gallop. No lifts, heaves, or rubs. Extrem: no clubbing or cyanosis. Edema: 1/4+ bilateral calves. Extremities are warm and pink with prompt capillary refill. Feet:Shoes and socks removed, Are you having foot pain no, normal distal pulses, not sensitive to monofilament bilateral first three toes to mid foot dorsal, calluses bilateral great toes and bassl of forefoot, and nails notable for Crumbly, Deformed, Hypertrophic, or Yellowish ASSESSMENT/PLAN: 1. Hypertension, essential - ICD9: 401.9, ICD10: I10 (primary diagnosis) - Controlled - Continue current medications - Recommend home blood pressure monitoring, to bring results to next visit - Encouraged sodium restriction, DASH or Mediterranean diet - Recommend regular aerobic exercise - Discussed need for and benefit of weight loss. BMI 58.88 kg/(m^2) 2. Mixed diabetic hyperlipidemia 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) (HCC) - ICD9: 250.80, 272.2, ICD10: E11.69, E78.2 - Needs lab completed to determine - Continue current medications - Counseled on healthy diet and regular exercise - Discussed need for and benefit of weight loss. BMI 58.88 kg/(m^2) 3. PVD (peripheral vascular disease) (HCC) - ICD9: 443.9, ICD10: I73.9 Stable, feet are cold but prompt refill 4. Chronic hypoxemic respiratory failure (HCC) - ICD9: 518.83, 799.02, ICD10: J96.11 5. COPD with chronic bronchitis (HCC) - ICD9: 491.20, ICD10: J44.89 Stable on medications- continue 6. Obstructive sleep apnea syndrome - ICD9: 327.23, ICD10: G47.33 Compliant with CPAP 7. Lung nodules - ICD9: 793.19, ICD10: R91.8 CT chest today 8. Screening for diabetic retinopathy - ICD9: V80.2, ICD10: Z13.5 - CONSULT TO OPHTHALMOLOGY 9. Screening for colon cancer - ICD9: V76.51, ICD10: Z12.11 - COLOGUARD 10. Type 2 diabetes mellitus with stage 3b chronic kidney disease, with long-term current use of insulin (HCC) - ICD9: 250.40, 585.3, V58.67, ICD10: E11.22, N18.32, Z79.4 Complete outstanding lab 11. Chronic depression - ICD9: 311, ICD10: F32.A 12. NANCY (generalized anxiety disorder) - ICD9: 300.02, ICD10: F41.1 13. Panic disorder - ICD9: 300.01, ICD10: F41.0 Stable on medications Gets anxious coming in 14. Polycythemia secondary to smoking - ICD9: 289.0, ICD10: D75.1 Urged to stop, discussed strategies again 15. Irritable bowel syndrome with both constipation and diarrhea - ICD9: 564.1, ICD10: K58.2 Doing well 16. Type 2 diabetes mellitus without complication, with long-term current use of insulin (HCC) - ICD9: 250.00, V58.67, ICD10: E11.9, Z79.4 - Control undetermined, due for labs - Continue current medications - INSULIN LISPRO (U-200) 200 UNIT/ML (3 ML) SUBCUTANEOUS PEN - INSULIN DEGLUDEC (U-200) 200 UNIT/ML (3 ML) SUBCUTANEOUS PEN 17. Depression, unspecified depression type - ICD9: 311, ICD10: F32.A stable - VENLAFAXINE ER 150 MG CAPSULE,EXTENDED RELEASE 24 HR 18. Encounter for immunization - ICD9: V03.89, ICD10: Z23 - [employer] COVID-19 VACCINE (2022- SEASON) AGE 12+ YR 19. Screening for cervical cancer - ICD9: V76.2, ICD10: Z12.4 - Completed pelvic and breast exam - Encouraged monthly BSE - Follow up for annual exam in one year. - CONSULT TO GYNECOLOGY 20. Encounter for screening mammogram for malignant neoplasm of breast - ICD9: V76.12, ICD10: Z12.31 - consult HEALTH INFORMATION SYSTEMS TECHNICIAN per preference to completed pelvic and breast exam - Encouraged monthly BSE - Follow up for annual exam in one year. - SHAHRAM SCREENING 21. Wellness examination - ICD9: V70.0, ICD10: Z00.00 - Counseled on healthy diet and regular exercise - Calcium intake with supplements or by diet of 1000 mg/day for under 50, 3073-0949 mg/day for 50+ - Discussed need and benefit for weight loss. BMI 58.88 kg/(m^2) - Mammogram ordered - exam recommended once yearly - Lung cancer screening recommended - Smoking cessation encouraged; discussed risks to health and quitting strategies. Patient is not ready to quit - Patient was counseled [id number] by myself (the billing provider) for the following immunizations and vaccine components, including side effects: COVID-19. Patient consents for immunization and understands risks and benefits. A VIS sheet on each immunization was given to the patient. Jovany Rizzo PA-C Some of this note may have been copied and pasted for the purpose of history context and comparison. All questions listed were asked and adjusted for changes in prior data. Jovany Rizzo PA-C documented in this encounter [facility] 06-06-2023 Telephone encounter Note Juwan Fernando called for last OV. Identified pt with name and date of . Requesting OV to get pt annual oxygen recertified. FAX: [phone] Done Yesenia Blanco LPN [facility] 06-06-2023 Miscellaneous Notes Juwan Fernando called for last OV. Identified pt with name and date of . Requesting OV to get pt annual oxygen recertified. FAX: [phone] Done Yesenia Blanco LPN documented in this encounter [facility] 06-06-2023 Telephone encounter Note Patient states that she will be here but will not be able to get in here to do any labs prior to her visit. [facility] 06-06-2023 Miscellaneous Notes Patient states that she will be here but will not be able to get in here to do any labs prior to her visit. Script sent. Patient has appt scheduled later this week. Please advise patient to follow-up, as scheduled. Lu Greene APRN.CNP Patient has been identified by name and date of : Yes, Rakel Douglas RN Date 06/06/2023 Time 11:40 am Patient phones for refill(s): Requested Prescriptions Pending Prescriptions Disp Refills insulin lispro (HUMALOG) 200 unit/mL (3 mL) injection 3 Each 5 Si units am, 3 units afternoon, 93 units before evening meal omeprazole (PRILOSEC) 20 mg capsule 30 capsule 5 Sig: Take 1 capsule by mouth daily before breakfast. 1/2 hr before meal. Date of last office visit in primary care: 11/26/2022 Date of next office visit in primary care: 06/09/2023 Patient is completely out of medication. Please advise. Thank you. Rakel Douglas RN. documented in this encounter [facility] 06-06-2023 Telephone encounter Note Script sent. Patient has appt scheduled later this week. Please advise patient to follow-up, as scheduled. Lu Greene APRN.[employer] BPM ARCHITECT [facility] Work Phone: 06-06-2023 Telephone encounter Note Patient has been identified by name and date of : Yes, Rakel Douglas RN Date 06/06/2023 Time 11:40 am Patient phones for refill(s): Requested Prescriptions Pending Prescriptions Disp Refills insulin lispro (HUMALOG) 200 unit/mL (3 mL) injection 3 Each 5 Si units am, 3 units afternoon, 93 units before evening meal omeprazole (PRILOSEC) 20 mg capsule 30 capsule 5 Sig: Take 1 capsule by mouth daily before breakfast. 1/2 hr before meal. Date of last office visit in primary care: 11/26/2022 Date of next office visit in primary care: 06/09/2023 Patient is completely out of medication. Please advise. Thank you. Rakel Douglas RN. [facility] 05-30-2023 Miscellaneous Notes Call received from Pt - name & verified. Pt calls and states that she has a VV with Dr. Knox today AND also an appointment for a CT scan today, but she thinks her appointment should be rescheduled for when her CT scan is resulted so it can be discussed. No acute respiratory issues/concerns at this time. This RN agreeable with plan. Instructed Pt to keep CT scan appt for today and will reschedule VV. Transferred to PSS to reschedule VV with Dr. Knox. Courtney Devi RN May 30, 2023 9:37 AM documented in this encounter [facility] 05-23-2023 Miscellaneous Notes TC to patient who states daughter is not yet back. Once she returns they will call office to schedule follow up appointment. HIPOLITO Trevino Patient is due for follow-up. She was to follow-up mid May. Venlafaxine was refilled for 30 days until she can get an appointment. Patient has been identified by name and date of : Yes, Rakel Douglas RN Date 05/20/2023 Time 4:07 pm Pharmacy phones for refill(s): Requested Prescriptions Pending Prescriptions Disp Refills venlafaxine ER (EFFEXOR XR) 150 mg 24 hr capsule 84 capsule 1 Sig: Take 1 capsule by mouth once daily. Date of last office visit in primary care: 11/26/2022 Date of next office visit in primary care: Due for 6 month follow up. Called to schedule. Needs to check with daughter about transportation. Will call back. Please advise. Thank you. Rakel Douglas RN. documented in this encounter [facility] 05-18-2023 Miscellaneous Notes 1st call attempt, left vm documented in this encounter [facility] 05-17-2023 Miscellaneous Notes Called and left a voicemail for the patient to call back and ask for a nurse to receive the providers message and schedule an appt. Also sent [employer] [facility]. Left a message for pt to call the office and ask to speak to a nurse. Yesenia Blanco LPN Please schedule appointment and fasting labs prior Refill on 05/13/23 HGB A1C COMP METABOLIC PANEL LIPID PANEL BASIC CBC + DIFF ALBUMIN/CREAT RATIO RND UR HEPATITIS C ANTIBODY IA WITH CONFIRMATION [id number] The following approved medication requests have been transmitted electronically. Requested Prescriptions Signed Prescriptions Disp Refills dulaglutide (TRULICITY) 4.5 mg/0.5 mL pen injector 12 Each 1 Sig: Inject 4.5 mg subcutaneously one time a week. Authorizing Provider: Jovany RIZZO PA-C Patient has been identified by name and date of : Yes, Rakel Douglas RN Date 05/13/2023 Time 5 pm Patient phones for refill(s): Requested Prescriptions Pending Prescriptions Disp Refills dulaglutide (TRULICITY) 4.5 mg/0.5 mL pen injector 6 mL 4 Sig: Inject 4.5 mg subcutaneously one time a week. Date of last office visit in primary care: 11/26/2022 Date of next office visit in primary care: none Please advise. Thank you. Rakel Douglas RN. documented in this encounter [facility] 04-20-2023 Miscellaneous Notes Patient has been identified by name and date of : Yes, Provider Gigi MOON Date 04/20/23 Time 1015. Pharmacy phones for refill(s): Requested Prescriptions Pending [...] 11 Sig: Take 2 tablets by mouth two times a day with meals. Date of last office visit in primary care: 11/26/2022 Date of next office visit in primary care: Visit date not found Please advise. Thank you. Ema Joseph RN. documented in this encounter [facility] 03-25-2023 Miscellaneous Notes Patient has been identified by name and date of : Yes, Provider Rizzo Date 03-25-23 Time 4:25 pm Pharmacy phones for refill(s): Requested Prescriptions Pending Prescriptions Disp Refills potassium chloride (K-TAB) 10 mEq tablet 60 tablet 5 Sig: Take 2 tablets by mouth daily with breakfast. busPIRone (BUSPAR) 5 mg tablet 90 tablet 5 Sig: Take 1 tablet by mouth three times a day. furosemide (LASIX) 40 mg tablet 28 tablet 5 Sig: Take 1 tablet by mouth once daily. Date of last office visit in primary care: 11/26/2022 Date of next office visit in primary care: Visit date not found Please advise. Thank you. Jovany Rodriguez RN. documented in this encounter [facility] 02-27-2023 Discharge summary Note Date/Time February 27, 2023 9:48am [facility] Medical Records Department [address] [place] [id number] Discharge Summary 02/27/23 0947 MR#: [id number] Acct: [id number] Name: ROSA MARIA MENJIVAR Rep #:[id number] 2 : 1965 57 From: Russell Flower MD PCP: Dr. Samson Hogna MD Status:ADM I N Location: [place] [id number] Providers Date of Admission: 02/25/23 Date of Discharge: 02/27/23 Primary Care Physician: Dr. Samson Hogan MD Reason For Visit: ACUTE ON CHRONIC HYPOXIA, COPD EXACERBATION Diagnosis Discharge Diagnosis (1) COPD with acute exacerbation: Status: Chronic Code(s): J44.1 - Chronic obstructive pulmonary disease with (acute) exacerbation Plan Patient is a 57-year-old lady with multiple comorbidities who presented with progressive shortness of breath and assessment of acute on chronic hypoxic respiratory failure made admitted to regular nursing floor for further management 1. Acute on chronic hypoxic respiratory failure ? Secondary to acute rhinovirus infection with COPD exacerbation as well as congestive heart failure 2. Acute rhinovirus infection ? Plan is to treat symptomatically 3. COPD with acute exacerbation ? Brought on by patient rhinovirus infection. Admitted to monitored bed managedwith systemic steroid antibiotics bronchodilator treatment as well as supplemental oxygen 4. Acute on chronic congestive heart failure with preserved ejection fraction ? Patient placed on strict input and output, daily weight, low-sodium diet and furosemide 5. Chronic hypoxic respiratory failure ? Secondary to COPD, obesity hypoventilation syndrome patient is on baseline home oxygen 6. Class III obesity with BMI of 54.2 ? Complicating care weight loss advised 7. Obstructive sleep apnea ? BiPAP at night 8. Diabetes mellitus type II -patient's oral hypoglycemics held. Placed on long acting insulin, Accu-Cheks a.c. and at bedtime and covered with sliding scale insulin 9. Dyslipidemia -Patient is on statin therapy, continued at home dose 10. Hypertension - Blood pressure controlled, home medications continued with dose adjustment as needed 11. Diabetic polyneuropathy ? Patient is on gabapentin did continue 12. Depression with anxiety ? Patient is on buspirone as well as venlafaxine did continue 13. Tobacco dependence - Counseled on cessation, offered nicotine patch for tobacco cravings 14. DVT prophylaxis - On enoxaparin Time spent in the patient's overall evaluation,decision-making process, review of diagnostic data, adjustment of management, discussion with other providers, nursing nursing and ancillary staff involved in patient's care documentation, 35 Minutes Medications at Discharge Home Medications atenolol 50 mg tablet 50 mg PO DAILY BP 03/04/15 furosemide 40 mg tablet 40 mg PO DAILY water retention 03/04/15 gabapentin 300 mg capsule 300 mg PO TID nerve pain 03/04/15 lisinopril 20 mg-hydrochlorothiazide 12.5 mg tablet 2 tab PO DAILY BP 03/04/15 venlafaxine 150 mg capsule,extended release 24 hr 150 mg PO DAILY mood 03/04/15 albuterol sulfate 90 mcg/actuation breath activated powder inhaler 2 inh inhalation Q4H PRN Wheezing 12/26/18 aspirin 81 mg tablet,delayed release (Adult Low Dose Aspirin) 81 mg PO DAILY heart health 12/26/18 atorvastatin 40 mg tablet 40 mg PO QHS cholesterol 12/26/18 dulaglutide 1.5 mg/0.5 mL subcutaneous pen injector (Trulicity) 1.5 mg subcut FRdiabetes 12/26/18 ibuprofen 800 mg tablet 800 mg PO Q6H PRN Pain Or Fever 12/26/18 potassium chloride 10 mEq tablet,extended release (K-Tab) 20 meq PO DAILY supplement 12/26/18 insulin degludec 100 unit/mL (3 mL) subcutaneous pen 83 unit SQ BID diabetes 09/01/19 buspirone 5 mg tablet 5 mg PO TID mood 04/28/20 insulin lispro 100 unit/mL subcutaneous pen 40 unit SQ LUNCH diabetes 04/28/20 insulin lispro 100 unit/mL subcutaneous pen 64 unit SQ BREAKFAST diabetes 04/28/20 insulin lispro 100 unit/mL subcutaneous pen 94 unit subcut QHS diabetes 04/28/20 sulfamethoxazole 800 mg-trimethoprim 160 mg tablet 1 tablet PO BID #10 TABLETS 04/30/20 insulin lispro 100 unit/mL subcutaneous half-unit pen (Humalog Zafar KwikPen (U-100)) 3 unit subcut DAILY 02/25/23 insulin lispro 100 unit/mL subcutaneous half-unit pen (Humalog Zafar KwikPen (U-100)) 63 unit subcut DAILY 02/25/23 insulin lispro 100 unit/mL subcutaneous half-unit pen (Humalog Zafar KwikPen (U-100)) 93 unit subcut QHS 02/25/23 metformin 500 mg tablet,extended release 24 hr 1,000 mg PO BID 02/25/23 omeprazole 20 mg capsule,delayed release 20 mg PO DAILY 02/25/23 venlafaxine 75 mg capsule,extended release 24 hr 75 mg PO DAILY 02/25/23 azithromycin 500 mg tablet 500 mg PO DAILY 3 days #3 tabs 02/27/23 cefdinir 300 mg capsule 300 mg PO BID #10 caps 02/27/23 cefdinir 300 mg capsule 300 mg PO BID #10 caps 02/27/23 cefdinir 300 mg capsule 300 mg PO BID #10 caps 02/27/23 prednisone 20 mg tablet 20 mg PO BID #10 tabs 02/27/23 Hospital Course Summary of Care Provided Minutes Spent on Discharge: 35 Physical Exam Narrative GENERAL: cooperative, HEENT: Atraumatic; normocephalic EYES; Anicteric, Normal Conjunctiva NECK; supple, normal thyroid, RESPIRATORY: Diminished to auscultation CARDIOVASCULAR: Regular S1 S2, GI: soft, normoactive bowel sounds, : No Renal angle tenderness; EXTREMITIES: edema, no clubbing, MUSCULOSKELETAL: no muscle wasting NEURO: no lateralizing signs. SKIN: No Rash PSYCH; Flat affect Weight / BMI Weight Weight: 147.8 kg Body Mass Index (BMI) 54.3 ABG / Lab / Microbiology Data 02/27/23 06:11 02/26/23 21:44 Laboratory: Laboratory Results - last 24 hr 02/26/23 11:47: POC Glucose 394 H 02/26/23 21:29: POC Glucose 487 H* 02/26/23 21:44: Glucose 504 H* 02/27/23 06:11: WBC 16.7 H, RBC 5.17, Hgb 13.7, Hct 46.0, MCV 89.0, MCH 26.5 L, MCHC 29.8 L, RDW Std Deviation 43.9, RDW Coeff of Ramy 13.5, Plt Count 324, MPV 9.8, Immature Gran % (Auto) 1.100 H, Neut % (Auto) 71.2 H, Lymph % (Auto) 19.0, [place] % (Auto) 7.5, Eos % (Auto) 0.5, Baso % (Auto) 0.7, Absolute Neuts (auto) 11.8 H, Absolute Lymphs (auto) 3.17, Nucleated RBC % 0 Microbiology: Microbiology 02/25/23 23:15 Sputum, Expectorated/Coughed Gram Stain - Final 02/25/23 22:00 Mucosa - Nasopharyngeal Respiratory Panel (PCR) - Final Rhinovirus 02/25/23 22:40 Urine, Clean Catch Legionella Antigen - Final 02/25/23 22:40 Urine, Clean Catch Streptococcus pneumoniae Antigen (M - Final 02/25/23 15:36 Mucosa - Nose SARS-CoV-2, Influenza & RSV (PCR) - Final D/C Instructions Discharge Diet: 1800 Calorie Control Diet Discharge Activity: Return to Normal Activity Call your doctor if you observe: Fever of 101 or Higher, Shortness of breath, Fainting spells and Chest pain Meaningful Use Info Meaningful Use Diagnoses (Choose all that apply): None applicable Discharge Plan Admission Admit Date/Time: 02/25/23 19:01 Attending Provider: Russell Flower Primary Care Provider: Samson Hogan Consulting Providers: Chelsi Warner Discharge Orders/Prescriptions Prescriptions: New cefdinir 300 mg capsule 300 mg PO BID Qty: 10 0RF azithromycin 500 mg tablet 500 mg PO DAILY 3 Days Qty: 3 0RF cefdinir 300 mg capsule 300 mg PO BID Qty: 10 0RF prednisone 20 mg tablet 20 mg PO BID Qty: 10 0RF cefdinir 300 mg capsule 300 mg PO BID Qty: 10 0RF Continued Trulicity 1.5 mg/0.5 mL pen injector 1.5 mg SC FR Patient Comments: on fridays potassium chloride [K-Tab] 10 mEq tablet extended release 20 meq PO DAILY atorvastatin 40 mg tablet 40 mg PO QHS albuterol sulfate 90 mcg/actuation aerosol powdr breath activated 2 inh INHALATION Q4H PRN (Reason: Wheezing) ibuprofen 800 mg tablet 800 mg PO Q6H PRN (Reason: Pain Or Fever) aspirin [Adult Low Dose Aspirin] 81 mg tablet,delayed release (DR/EC) 81 mg PO DAILY furosemide 40 MG tablet 40 mg PO DAILY lisinopril-hydrochlorothiazide 1 TABLET tablet 2 tab PO DAILY venlafaxine 150 MG capsule 150 mg PO DAILY gabapentin 300 MG capsule 300 mg PO TID atenolol 50 MG tablet 50 mg PO DAILY insulin degludec 100 UNIT/ML insulin pen 83 unit SQ BID buspirone 5 MG tablet 5 mg PO TID insulin lispro 100 UNIT/ML insulin pen 64 unit SQ BREAKFAST Rx Instructions: 62/40/94 insulin lispro 100 UNIT/ML insulin pen 40 unit SQ LUNCH Rx Instructions: takes at noon insulin lispro 100 UNIT/ML insulin pen 94 unit SC QHS sulfamethoxazole-trimethoprim 1 TABLET tablet 1 tablet PO BID Qty: 10 0RF metformin 500 mg tablet extended release 24 hr 1,000 mg PO BID venlafaxine 75 mg capsule,extended release 24hr 75 mg PO DAILY omeprazole 20 mg capsule,delayed release(DR/EC) 20 mg PO DAILY insulin lispro [Humalog Zafar KwikPen U-100] 100 unit/mL insulin pen, half-unit 63 unit subcut DAILY Patient Comments: AM insulin lispro [Humalog Zafar KwikPen U-100] 100 unit/mL insulin pen, half-unit 3 unit subcut DAILY Patient Comments: afternoon insulin lispro [Humalog Zafar KwikPen U-100] 100 unit/mL insulin pen, half-unit 93 unit subcut QHS Referrals / Follow Up: Samson Hogan MD [Primary Care Provider] - Disposition Disposition (needs filled in before D/C Order can be placed): Home, Self Care Charges/Coding Visit Charges Inpatient E&M: 87893 Disch Hosp >30min 02/27/23 0939 <Electronically signed by Russell Flower MD> Cosigner Signature (if applicable): CC: Dr. Russell Flower MD; Dr. Samson Hogan MD~ Signed [facility] Work Phone: 1(414) 212-208701-14-2024 Progress note Author Russell Flower [facility] February 27, 2023 9:47am Note Date/Time February 27, 2023 7 :36am [facility] Medical Records Department [address] [place] [address] Progress Note - Hospitalist 02/27/23 0736 MR#: [id number] Acct: [id number] Name: ROSA MARIA MENJIVAR Rep #:[id number] : 1965 57 From: Russell Flower MD PCP: Dr. Samson Hogan MD Status:ADM I N Location: [place] [address] Reason for Visit Reason for Visit: Diagnoses Chronic obstructive pulmonary disease with (acute) exacerbation (02/25/23) Subjective Subjective Patient seen breathing improved. Patient requesting to be discharged home Objective Data Objective Data Vital Signs: Vital Signs Temp Pulse Resp BP Pulse Ox O2 Del Method O2 Flow Rate 97.7 F L 79 18 155/72 H 99 Bi-pap 3 02/27/23 06:06 02/27/23 06:06 02/27/23 06:06 02/27/23 06:06 02/27/23 06:06 02/27/23 06:30 02/26/23 23:57 Oxygen Flow Rate (L/min) 3 Oxygen Delivery Method Bi-pap Weight: 147.8 kg Body Mass Index (BMI) 54.3 Intake & Output: Intake and Output for Last 24 Hours 02/25/23 02/26/23 02/27/23 23:59 23:59 23:59 Intake Total 50 / 50 5301 / 5301 300 / 300 Balance 50 / 50 5301 / 5301 300 / 300 Lab / Micro Data 02/27/23 06:11 02/26/23 21:44 Labs: Laboratory Results - last 24 hr 02/26/23 06:08: Sodium 138, Potassium 3.6, Chloride 97 L, Carbon Dioxide 35.0 H,Anion Gap 6, BUN 27 H, Creatinine 0.84, Estim Creat Clear Calc 110.20, Est GFR (MDRD) Af Amer 90, Est GFR (MDRD) Non-Af 74, BUN/Creatinine Ratio 32.1 H, Glucose 349 H, Calcium 8.3 L, Total Bilirubin 0.20, AST 13 L, ALT 19, Alkaline Phosphatase 108, Total Protein 7.6, Albumin 2.1 L, Globulin 5.5 H, Albumin/Globulin Ratio 0.4 L 02/26/23 11:47: POC Glucose 394 H 02/26/23 21:29: POC Glucose 487 H* 02/26/23 21:44: Glucose 504 H* 02/27/23 06:11: WBC 16.7 H, RBC 5.17, Hgb 13.7, Hct 46.0, MCV 89.0, MCH 26.5 L, MCHC 29.8 L, RDW Std Deviation 43.9, RDW Coeff of Ramy 13.5, Plt Count 324, MPV 9.8, Immature Gran % (Auto) 1.100 H, Neut % (Auto) 71.2 H, Lymph % (Auto) 19.0, [place] % (Auto) 7.5, Eos % (Auto) 0.5, Baso % (Auto) 0.7, Absolute Neuts (auto) 11.8 H, Absolute Lymphs (auto) 3.17, Nucleated RBC % 0 Micro: Microbiology 02/25/23 23:15 Sputum, Expectorated/Coughed Gram Stain - Final 02/25/23 22:00 Mucosa - Nasopharyngeal Respiratory Panel (PCR) - Final Rhinovirus 02/25/23 22:40 Urine, Clean Catch Legionella Antigen - Final 02/25/23 22:40 Urine, Clean Catch Streptococcus pneumoniae Antigen (M - Final 02/25/23 15:36 Mucosa - Nose SARS-CoV-2, Influenza & RSV (PCR) - Final Physical Exam Narrative GENERAL: cooperative, on BiPAP HEENT: Atraumatic; normocephalic EYES; Anicteric, Normal Conjunctiva NECK; supple, normal thyroid, RESPIRATORY: Diminished to auscultation CARDIOVASCULAR: Regular S1 S2, GI: soft, normoactive bowel sounds, : No Renal angle tenderness; EXTREMITIES: edema, no clubbing, MUSCULOSKELETAL: no muscle wasting NEURO: no lateralizing signs. SKIN: No Rash PSYCH; Flat affect Assessment & Plan Assessment/Plan (1) COPD with acute exacerbation: PLAN: Plan Patient is a 57-year-old lady with multiple comorbidities who presented with progressive shortness of breath and assessment of acute on chronic hypoxic respiratory failure made admitted to regular nursing floor for further management 1. Acute on chronic hypoxic respiratory failure ? Secondary to acute rhinovirus infection with COPD exacerbation as well as congestive heart failure 2. Acute rhinovirus infection ? Plan is to treat symptomatically 3. COPD with acute exacerbation ? Brought on by patient rhinovirus infection. Admitted to monitored bed managedwith systemic steroid antibiotics bronchodilator treatment as well as supplemental oxygen 4. Acute on chronic congestive heart failure with preserved ejection fraction ? Patient placed on strict input and output, daily weight, low-sodium diet and furosemide 5. Chronic hypoxic respiratory failure ? Secondary to COPD, obesity hypoventilation syndrome patient is on baseline home oxygen 6. Class III obesity with BMI of 54.2 ? Complicating care weight loss advised 7. Obstructive sleep apnea ? BiPAP at night 8. Diabetes mellitus type II -patient's oral hypoglycemics held. Placed on long acting insulin, Accu-Cheks a.c. and at bedtime and covered with sliding scale insulin 9. Dyslipidemia -Patient is on statin therapy, continued at home dose 10. Hypertension - Blood pressure controlled, home medications continued with dose adjustment as needed 11. Diabetic polyneuropathy ? Patient is on gabapentin did continue 12. Depression with anxiety ? Patient is on buspirone as well as venlafaxine did continue 13. Tobacco dependence - Counseled on cessation, offered nicotine patch for tobacco cravings 14. DVT prophylaxis - On enoxaparin Time spent in the patient's overall evaluation,decision-making process, review of diagnostic data, adjustment of management, discussion with other providers, nursing nursing and ancillary staff involved in patient's care documentation, 35 Minutes Charges/Coding Visit Charges Inpatient E&M: 94946 Subs Hosp L2 02/27/23 0947 <Electronically signed by Russell Flower MD> Cosigner Signature (if applicable): CC: ~ Signed [facility] Work Phone: 1(111) 453-161701-14-2024 [facility] Medical Records Department [address] [place] [address] Discharge Summary 02/27/23946 MR#: [id number] Acct: [id number] Name: ROSA MARIA MENJIVAR Rep #: [id number] : 1965 57 From: Russell Flower MD PCP: Dr. Samson Hogan MD Status:ADM IN Location: [facility] [id number] Providers Date of Admission: 02/25/23 Date of Discharge: 02/27/23 Primary Care Physician: Dr. Samson Hogan MD Reason For Visit: ACUTE ON CHRONIC HYPOXIA, COPD EXACERBATION Diagnosis Discharge Diagnosis (1) COPD with acute exacerbation: Status: Chronic Code(s): J44.1 - Chronic obstructive pulmonary disease with (acute) exacerbation Plan Patient is a 57-year-old lady with multiple comorbidities who presented with progressive shortness of breath and assessment of acute on chronic hypoxic respiratory failure made admitted to regular nursing floor for further management 1. Acute on chronic hypoxic respiratory failure ??? Secondary to acute rhinovirus infection with COPD exacerbation as well as congestive heart failure 2. Acute rhinovirus infection ??? Plan is to treat symptomatically 3. COPD with acute exacerbation ??? Brought on by patient rhinovirus infection. Admitted to monitored bed managed with systemic steroid antibiotics bronchodilator treatment as well as supplemental oxygen 4. Acute on chronic congestive heart failure with preserved ejection fraction ??? Patient placed on strict input and output, daily weight, low-sodium diet and furosemide 5. Chronic hypoxic respiratory failure ??? Secondary to COPD, obesity hypoventilation syndrome patient is on baseline home oxygen 6. Class III obesity with BMI of 54.2 ??? Complicating care weight loss advised 7. Obstructive sleep apnea ??? BiPAP at night 8. Diabetes mellitus type II -patient's oral hypoglycemics held. Placed on long acting insulin, Accu-Cheks a.c. and at bedtime and covered with sliding scale insulin 9. Dyslipidemia -Patient is on statin therapy, continued at home dose 10. Hypertension - Blood pressure controlled, home medications continued with dose adjustment as needed 11. Diabetic polyneuropathy ??? Patient is on gabapentin did continue 12. Depression with anxiety ??? Patient is on buspirone as well as venlafaxine did continue 13. Tobacco dependence - Counseled on cessation, offered nicotine patch for tobacco cravings 14. DVT prophylaxis - On enoxaparin Time spent in the patient's overall evaluation,decision-making process, review of diagnostic data, adjustment of management, discussion with other providers, nursing nursing and ancillary staff involved in patient's care documentation, 35 Minutes Medications at Discharge Home Medications atenolol 50 mg tablet 50 mg PO DAILY BP 03/04/15 furosemide 40 mg tablet 40 mg PO DAILY water retention 03/04/15 gabapentin 300 mg capsule 300 mg PO TID nerve pain 03/04/15 lisinopril 20 mg-hydrochlorothiazide 12.5 mg tablet 2 tab PO DAILY BP 03/04/15 venlafaxine 150 mg capsule,extended release 24 hr 150 mg PO DAILY mood 03/04/15 albuterol sulfate 90 mcg/actuation breath activated powder inhaler 2 inh inhalation Q4H PRN Wheezing 12/26/18 aspirin 81 mg tablet,delayed release (Adult Low Dose Aspirin) 81 mg PO DAILY heart health 12/26/18 atorvastatin 40 mg tablet 40 mg PO QHS cholesterol 12/26/18 dulaglutide 1.5 mg/0.5 mL subcutaneous pen injector (Trulicity) 1.5 mg subcut FR diabetes 12/26/18 ibuprofen 800 mg tablet 800 mg PO Q6H PRN Pain Or Fever 12/26/18 potassium chloride 10 mEq tablet,extended release (K-Tab) 20 meq PO DAILY supplement 12/26/18 insulin degludec 100 unit/mL (3 mL) subcutaneous pen 83 unit SQ BID diabetes 09/01/19 buspirone 5 mg tablet 5 mg PO TID mood 04/28/20 insulin lispro 100 unit/mL subcutaneous pen 40 unit SQ LUNCH diabetes 04/28/20 insulin lispro 100 unit/mL subcutaneous pen 64 unit SQ BREAKFAST diabetes 04/28/20 insulin lispro 100 unit/mL subcutaneous pen 94 unit subcut QHS diabetes 04/28/20 sulfamethoxazole 800 mg-trimethoprim 160 mg tablet 1 tablet PO BID #10 TABLETS 04/30/20 insulin lispro 100 unit/mL subcutaneous half-unit pen (Humalog Zafar KwikPen (U-100)) 3 unit subcut DAILY 02/25/23 insulin lispro 100 unit/mL subcutaneous half-unit pen (Humalog Zafar KwikPen (U-100)) 63 unit subcut DAILY 02/25/23 insulin lispro 100 unit/mL subcutaneous half-unit pen (Humalog Zafar KwikPen (U-100)) 93 unit subcut QHS 02/25/23 metformin 500 mg tablet,extended release 24 hr 1,000 mg PO BID 02/25/23 omeprazole 20 mg capsule,delayed release 20 mg PO DAILY 02/25/23 venlafaxine 75 mg capsule,extended release 24 hr 75 mg PO DAILY 02/25/23 azithromycin 500 mg tablet 500 mg PO DAILY 3 days #3 tabs 02/27/23 cefdinir 300 mg capsule 300 mg PO BID #10 caps 02/27/23 cefdinir 300 mg capsule 300 mg PO BID #10 caps 02/27/23 cefdinir 300 mg capsule 300 mg PO BID #10 caps (more content not included)... [facility]01-13-2024 Progress note Author Russell Flower [facility] February 26, 2023 9:47am Note Date/Time February 26, 2023 7 :56am [facility] Medical Records Department [address] [place] [address] Progress Note - Hospitalist 02/26/23 0754 MR#: [id number] Acct: [id number] Name: ROSA MARIA MENJIVAR Rep #:[id number] : 1965 57 From: Russell Flower MD PCP: Dr. Samson oHgan MD Status:ADM I N Location: [facility] [id number] Reason for Visit Reason for Visit: Diagnoses Chronic obstructive pulmonary disease with (acute) exacerbation (02/25/23) Subjective Subjective Patient is a 57-year-old lady with multiple comorbidities who presented with progressive shortness of breath and assessment of acute on chronic hypoxic respiratory failure made admitted to regular nursing floor for further management Objective Data Objective Data Vital Signs: Vital Signs Temp Pulse Resp BP Pulse Ox O2 Del Method O2 Flow Rate 98.3 F 81 22 H 143/66 H 93 Nasal Cannula 6 02/26/23 06:33 02/26/23 07:35 02/26/23 07:35 02/26/23 06:33 02/26/23 07:35 02/26/23 07:35 02/26/23 07:35 Oxygen Flow Rate (L/min) 6 Oxygen Delivery Method Nasal Cannula Weight: 147.87 kg Body Mass Index (BMI) 54.3 Intake & Output: Intake and Output for Last 24 Hours 02/24/23 02/25/23 02/26/23 23:59 23:59 23:59 Intake Total 50 / 50 950 / 950 Balance 50 / 50 950 / 950 Lab / Micro Data 02/26/23 06:08 02/26/23 06:08 Labs: Laboratory Results - last 24 hr 02/25/23 15:35: WBC 16.2 H, RBC 5.13, Hgb 13.5, Hct 45.6, MCV 88.9, MCH 26.3 L, MCHC 29.6 L, RDW Std Deviation 44.9 H, RDW Coeff of Ramy 13.7, Plt Count 267, MPV9.9, Immature Gran % (Auto) 0.600, Neut % (Auto) 79.4 H, Lymph % (Auto) 11.1 L, [place] % (Auto) 7.2, Eos % (Auto) 1.1, Baso % (Auto) 0.6, Absolute Neuts (auto) 12.9 H, Absolute Lymphs (auto) 1.79, Nucleated RBC % 0, Sodium 140, Potassium 3.9, Chloride 98, Carbon Dioxide 38.0 H, Anion Gap 4 L, BUN 30 H, Creatinine 0.70, Estim Creat Clear Calc 134.13, Est GFR (MDRD) Af Amer 110, Est GFR (MDRD) Non-Af 91, BUN/Creatinine Ratio 42.6 H, Glucose 261 H, Lactic Acid 1.6, Calcium 8.6, B-Natriuretic Peptide 55.2, Procalcitonin < 0.01 02/25/23 21:14: POC Glucose 433 H 02/25/23 23:37: MRSA (PCR) Negative 02/25/23 23:56: POC Glucose > 500 H* 02/26/23 02:25: POC Glucose 398 H 02/26/23 06:08: WBC 15.2 H, RBC 4.95, Hgb 13.3, Hct 44.1, MCV 89.1, MCH 26.9 L, MCHC 30.2 L, RDW Std Deviation 44.3 H, RDW Coeff of Ramy 13.6, Plt Count 290, MPV10.0, Immature Gran % (Auto) 1.500 H, Neut % (Auto) 87.1 H, Lymph % (Auto) 7.8 L, [place] % (Auto) 2.8, Eos % (Auto) 0.3, Baso % (Auto) 0.5, Absolute Neuts (auto) 13.2 H, Absolute Lymphs (auto) 1.18, Nucleated RBC % 0 02/26/23 06:54: POC Glucose 318 H Micro: Microbiology 02/25/23 22:00 Mucosa - Nasopharyngeal Respiratory Panel (PCR) - Final Rhinovirus 02/25/23 22:40 Urine, Clean Catch Legionella Antigen - Final 02/25/23 22:40 Urine, Clean Catch Streptococcus pneumoniae Antigen (M - Final 02/25/23 15:36 Mucosa - Nose SARS-CoV-2, Influenza & RSV (PCR) - Final Radiography Diagnostic Testing: Radiology Impression Chest X-Ray 02/25/23 15:41 IMPRESSION: Mild CHF or interstitial infiltrates Electronically Signed: Dakota Montague MD at 16:51 EST , Physical Exam Narrative GENERAL: cooperative, on BiPAP HEENT: Atraumatic; normocephalic EYES; Anicteric, Normal Conjunctiva NECK; supple, normal thyroid, RESPIRATORY: Diminished to auscultation CARDIOVASCULAR: Regular S1 S2, GI: soft, normoactive bowel sounds, : No Renal angle tenderness; EXTREMITIES: edema, no clubbing, MUSCULOSKELETAL: no muscle wasting NEURO: no lateralizing signs. SKIN: No Rash PSYCH; Flat affect Assessment & Plan Assessment/Plan (1) COPD with acute exacerbation: PLAN: Plan Patient is a 57-year-old lady with multiple comorbidities who presented with progressive shortness of breath and assessment of acute on chronic hypoxic respiratory failure made admitted to regular nursing floor for further management 1. Acute on chronic hypoxic respiratory failure ? Secondary to acute rhinovirus infection with COPD exacerbation as well as congestive heart failure 2. Acute rhinovirus infection ? Plan is to treat symptomatically 3. COPD with acute exacerbation ? Brought on by patient rhinovirus infection. Admitted to monitored bed managedwith systemic steroid antibiotics bronchodilator treatment as well as supplemental oxygen 4. Acute on chronic congestive heart failure with preserved ejection fraction ? Patient placed on strict input and output, daily weight, low-sodium diet and furosemide 5. Chronic hypoxic respiratory failure ? Secondary to COPD, obesity hypoventilation syndrome patient is on baseline home oxygen 6. Class III obesity with BMI of 54.2 ? Complicating care weight loss advised 7. Obstructive sleep apnea ? BiPAP at night 8. Diabetes mellitus type II -patient's oral hypoglycemics held. Placed on long acting insulin, Accu-Cheks a.c. and at bedtime and covered with sliding scale insulin 9. Dyslipidemia -Patient is on statin therapy, continued at home dose 10. Hypertension - Blood pressure controlled, home medications continued with dose adjustment as needed 11. Diabetic polyneuropathy ? Patient is on gabapentin did continue 12. Depression with anxiety ? Patient is on buspirone as well as venlafaxine did continue 13. Tobacco dependence - Counseled on cessation, offered nicotine patch for tobacco cravings 14. DVT prophylaxis - On enoxaparin Time spent in the patient's overall evaluation,decision-making process, review of diagnostic data, adjustment of management, discussion with other providers, nursing nursing and ancillary staff involved in patient's care documentation, 50 Minutes Charges/Coding Visit Charges Inpatient E&M: 42597 Subs Hosp L3 02/26/23 0947 <Electronically signed by Russell Flower MD> Cosigner Signature (if applicable): CC: ~ Signed [facility] Work Phone: 1(875) 677-327401-12-2024 History and physical note Author Chelsi Warner [facility] February 25, 2023 7:27pm Note Date/Time February 25, 2023 6 :13pm [facility] Medical Records Department [address] [place] [id number] H&P Exam - Hospitalist 02/25/23 1813 MR#: [id number] Acct: [id number] Name: ROSA MARIA MENJIVAR Rep #:[id number] : 1965 57 From: Chelsi Warner MD PCP: Dr. Samson Hogan MD Status:ADM I N Location: [facility] [id number] HPI - General General Date of Admission: 02/25/23 Date of Service: 02/25/23 Chief Complaint: Dyspnea, cough, increased sputum, subjective fever/chills. HPI Narrative The patient is a 57 y/o F w/ PMHx: Morbid Obesity, Depression and Anxiety/Panic disorder, HTN, HLD, KELLIE, Diabetes mellitus type II with chronic neuropathy, COPDw/ Chronic Hypoxic Respiratory Failure (2L NC), Tobacco use, History of renal artery stenosis s/p PCI who presents to the [facility] ED on 02/25/2023 with history of onset progressively worsening fatigue, malaise, dyspnea and cough normally on 2 L nasal cannula with inhalers at home but no respiratory treatments on chronic Lasix 40 daily which is unchanged with no recent weight gain or marked orthopneawith reported productive sputum with no associated chest discomfort with subjective fevers and chills but no specific temperature check as well as congestion and rhinorrhea with sick contacts including her and her son with similar symptoms prompting eventual ED evaluation. Workup in the ED included T97.9, heart rate 90, BP 129/83, respiratory rate 24, initially 91% on 4 L nasal cannula with most recent vital signs heart rate 87, BP 171/62, respiratory rate 25, 89% on 5 L nasal cannula, CBC with WBC 16.2, hgb 13.5, platelet 267 with left shift, BMP with 38, BUN/creatinine 30/0.70, glucose 261, lactic acid 1.6, BNP 55.2, chest x-ray with mild interstitial infiltrates/possibly CHF, blood culture x 2 pending per ED, rapid SARS COVID/influenza/RSV PCR negative. In the ED patient ministered Solu-Medrol 125 mg IV x 1, DuoNeb and albuterol therapies, Motrin 400 mg p.o. x 1 as well as Rocephin 1 g IV x 1. [facility] Medical History (Updated 02/25/23 @ 19:[address] Chelsi Warner MD) Anxiety and depression Chronic respiratory failure Degenerative disc disease GERD (gastroesophageal reflux disease) HTN (hypertension) IBS (irritable bowel syndrome) Microalbuminuria Morbid obesity Neuropathy Panic disorder Sleep apnea Tobacco dependence syndrome Type 2 diabetes mellitus Urinary calculus Home Medications atenolol 50 mg tablet 50 mg PO DAILY BP 03/04/15 [History Last Taken 04/28/20 08:00] furosemide 40 mg tablet 40 mg PO DAILY water retention 03/04/15 [History Last Taken 04/28/20 08:00] gabapentin 300 mg capsule 300 mg PO TID nerve pain 03/04/15 [History Last Taken 04/28/20 17:00] lisinopril 20 mg-hydrochlorothiazide 12.5 mg tablet 2 tab PO DAILY BP 03/04/15 [History Last Taken 04/28/20 08:00] venlafaxine 150 mg capsule,extended release 24 hr 150 mg PO DAILY mood 03/04/15 [History Last Taken 04/28/20 08:00] albuterol sulfate 90 mcg/actuation breath activated powder inhaler 2 inh inhalation Q4H PRN Wheezing 12/26/18 [History Last Taken Unknown] aspirin 81 mg tablet,delayed release (Adult Low Dose Aspirin) 81 mg PO DAILY heart health 12/26/18 [History Last Taken 04/28/20 08:00] atorvastatin 40 mg tablet 40 mg PO QHS cholesterol 12/26/18 [History Last Taken 04/27/20 22:00] dulaglutide 1.5 mg/0.5 mL subcutaneous pen injector (Trulicity) 1.5 mg subcut THdiabetes 12/26/18 [History Last Taken 04/24/20 12:00] ibuprofen 800 mg tablet 800 mg PO Q6H PRN Pain Or Fever 12/26/18 [History Last Taken Unknown] potassium chloride 10 mEq tablet,extended release (K-Tab) 20 meq PO DAILY supplement 12/26/18 [History Last Taken 04/28/20 08:00] insulin degludec 100 unit/mL (3 mL) subcutaneous pen 83 unit SQ BID diabetes 09/01/19 [History Last Taken 04/28/20 17:00] buspirone 5 mg tablet 5 mg PO TID mood 04/28/20 [History Last Taken 04/28/20 17:00] insulin lispro 100 unit/mL subcutaneous pen 40 unit SQ LUNCH diabetes 04/28/20 [History Last Taken 04/28/20 12:00] insulin lispro 100 unit/mL subcutaneous pen 64 unit SQ BREAKFAST diabetes 04/28/20 [History Last Taken 04/28/20 08:00] insulin lispro 100 unit/mL subcutaneous pen 94 unit subcut QHS diabetes 04/28/20[History Last Taken 04/28/20 17:00] sulfamethoxazole 800 mg-trimethoprim 160 mg tablet 1 tablet PO BID #10 TABLETS 04/30/20 [Rx Last Taken Unknown] insulin lispro 100 unit/mL subcutaneous half-unit pen (Humalog Zafar KwikPen (U-100)) 3 unit subcut DAILY 02/25/23 [History Last Taken Unknown] insulin lispro 100 unit/mL subcutaneous half-unit pen (Humalog Zafar KwikPen (U-100)) 63 unit subcut DAILY 02/25/23 [History Last Taken Unknown] insulin lispro 100 unit/mL subcutaneous half-unit pen (Humalog Junior Galvez (U-100)) 93 unit subcut QHS 02/25/23 [History Last Taken Unknown] metformin 500 mg tablet,extended release 24 hr 1,000 mg PO BID 02/25/23 [History Last Taken Unknown] omeprazole 20 mg capsule,delayed release 20 mg PO DAILY 02/25/23 [History Last Taken Unknown] venlafaxine 75 mg capsule,extended release 24 hr 75 mg PO DAILY 02/25/23 [History Last Taken Unknown] Allergy/AdvReac Type Severity Reaction Status Date / Time tetanus and diphtheria Allergy Unknown swollen Verified 02/25/23 15:23 toxoids glands in neck that didn't decrease ketorolac tromethamine Allergy vivid Verified 02/25/23 15:23 [From Toradol] dreams morphine Allergy Itching Verified 02/25/23 15:23 Family History Aunt Diabetes Father Heart disease Sister Heart disease Grandfather Colon cancer Unknown Breast cancer Surgical History H/O dilation and curettage H/O lithotripsy History of renal stent Hx of cholecystectomy Hx of partial nephrectomy repair of r arm fx Social History (Updated 02/25/23 @ 19:[address] Chelsi Warner MD) household members: spouse Smoking Status: Current some day smoker tobacco type: cigarettes Smoking packs per day: 1 Smoking cigarettes per day: 20.0 quit status: considering quitting alcohol intake: never substance use type: does not use ROS ROS Narrative Admission Review of Systems: CONSTITUTIONAL: No weight loss, + subjective fever, chills, weakness or fatigue. HEENT: + Congestion, rhinorrhea, sneezing. Eyes: No visual loss, blurred vision, double vision or yellow sclerae. Ears, Nose, Throat: No hearing loss, sore throat. SKIN: No rash or itching, lesions, wounds. CARDIOVASCULAR: + Chronic Peripheral edema. No chest pain, chest pressure or chest discomfort, palpitations, orthopnea, syncopal events. RESPIRATORY: + Shortness of breath, cough with productive sputum, wheezing. No hemoptysis. GASTROINTESTINAL: No anorexia, nausea, vomiting or diarrhea, abdominal pain, melena, BRBPR. GENITOURINARY: No dysuria, frequency, urgency or retention. NEUROLOGICAL: No headache, dizziness, syncope, paralysis, ataxia, numbness or tingling in the extremities, focal weakness, change in bowel or bladder control,seizure. MUSCULOSKELETAL: + muscle, back pain, joint pain or stiffness. HEMATOLOGIC: No anemia, bleeding or bruising. LYMPHATICS: No enlarged nodes. No history of splenectomy. PSYCHIATRIC: + History of anxiety and depression. ENDOCRINOLOGIC: No reports of sweating, cold or heat intolerance. No polyuria orpolydipsia. ALLERGIES: No history of asthma, hives, eczema or rhinitis. Vital Signs Vital Signs Vital Signs: 02/25/23 15:19 02/25/23 15:28 02/25/23 15:28 Temperature 97.9 F 97.9 F Temperature Source Temporal Temporal Pulse Rate 90 90 90 Respiratory Rate 24 H 22 H 18 Respiratory Effort Respiratory Pattern Blood Pressure 129/83 H 129/83 H 129/83 H Blood Pressure Mean 98 98 98 Pulse Ox 91 93 91 Oxygen Delivery Method Nasal Cannula Nasal Cannula Nasal Cannula Oxygen Flow Rate (L/min) 4 4 02/25/23 15:32 02/25/23 15:35 02/25/23 15:51 Temperature Temperature Source Pulse Rate 89 Respiratory Rate 20 H Respiratory Effort Short of Breath Labored Respiratory Pattern Tachypnea Blood Pressure Blood Pressure Mean Pulse Ox 90 Oxygen Delivery Method Nasal Cannula Nasal Cannula Oxygen Flow Rate (L/min) 4 4 02/25/23 17:16 02/25/23 18:00 02/25/23 18:03 Temperature Temperature Source Pulse Rate 88 87 Respiratory Rate 24 H 25 H Respiratory Effort Respiratory Pattern Blood Pressure 143/66 H Blood Pressure Mean 91 Pulse Ox 92 89 Oxygen Delivery Method Nasal Cannula Nasal Cannula Oxygen Flow Rate (L/min) 5 5 02/25/23 17:48 Temperature Temperature Source Pulse Rate 84 Respiratory Rate 24 H Respiratory Effort Respiratory Pattern Blood Pressure 171/62 H Blood Pressure Mean 98 Pulse Ox 90 Oxygen Delivery Method Oxygen Flow Rate (L/min) Weight Weight: 333 lb 5.423 oz Body Mass Index (BMI) 55.4 Physical Exam Narrative Physical Examination: General: Awake, alert, oriented x 3 and cooperative, seated upright in the ED bedside chair, fatigued, still mildly increased respiratory rate but no overt distress, notes feeling mildly improved. Skin: Normal color, normal turgor, no icterus, no cyanosis except for occasionalstaged ecchymoses, intertrigo. HEENT: AT/NC, EOMI, PERRLA, dry MM, difficult to discern carotid bruits and JVD given thickened neck, evident mouth breather. Lungs: CTA bilaterally, moderate effort, mild decrease BL bases, no rales, ronchi or wheezing. Heart: Regular rate and rhythm; no gallop, rub audible. Abdomen: Soft, morbidly obese, no tenderness palpation, distant BS, difficult todiscern distention and HSM given habitus. Extremities: No cyanosis, no clubbing, significant bilateral lower extremity chronic peripheral lymphedema unchanged per her report Neurological: Patient awake, alert, oriented as noted, cognitive function intact; pupils equally reactive to light and accommodation, cranial nerves grossly normal, moving all 4 extremities, no focal deficits, strength severely globally decreased secondary to acute presentation and underlying comorbidities. Psychiatric: Affect appears fatigued, still appears dyspneic with mildly increased respiratory rate and some accessory muscle usage but she reports feeling significantly improved, no acute evidence of depressive or anxiety feelings but does have underlying history. Results Lab / Micro Data 02/25/23 15:35 02/25/23 15:35 Labs: Laboratory Results - last 24 hr 02/25/23 15:35: WBC 16.2 H, RBC 5.13, Hgb 13.5, Hct 45.6, MCV 88.9, MCH 26.3 L, MCHC 29.6 L, RDW Std Deviation 44.9 H, RDW Coeff of Ramy 13.7, Plt Count 267, MPV9.9, Immature Gran % (Auto) 0.600, Neut % (Auto) 79.4 H, Lymph % (Auto) 11.1 L, [place] % (Auto) 7.2, Eos % (Auto) 1.1, Baso % (Auto) 0.6, Absolute Neuts (auto) 12.9 H, Absolute Lymphs (auto) 1.79, Nucleated RBC % 0, Sodium 140, Potassium 3.9, Chloride 98, Carbon Dioxide 38.0 H, Anion Gap 4 L, BUN 30 H, Creatinine 0.70, Estim Creat Clear Calc 134.13, Est GFR (MDRD) Af Amer 110, Est GFR (MDRD) Non-Af 91, BUN/Creatinine Ratio 42.6 H, Glucose 261 H, Lactic Acid 1.6, Calcium 8.6, B-Natriuretic Peptide 55.2 Micro: Microbiology 02/25/23 15:36 Mucosa - Nose SARS-CoV-2, Influenza & RSV (PCR) - Final Imagaing Radiology Impression Chest X-Ray 02/25/23 15:41 IMPRESSION: Mild CHF or interstitial infiltrates Electronically Signed: Dakota Montague MD at 16:51 EST Reading Location ID and State: [address] [place] [address] Tel , Service support , Assessment & Plan Assessment/Plan (1) COPD with acute exacerbation: PLAN: Plan The patient is a 57 y/o F w/ PMHx: Morbid Obesity, Depression and Anxiety/Panic disorder, HTN, HLD, KELLIE, Diabetes mellitus type II with chronic neuropathy, COPDw/ Chronic Hypoxic Respiratory Failure (2L NC), Tobacco use, History of renal artery stenosis s/p PCI who presents to the [facility] ED on 02/25/2023 with history of onset progressively worsening fatigue, malaise, dyspnea and cough normally on 2 L nasal cannula with inhalers at home but no respiratory treatments on chronic Lasix 40 daily which is unchanged with no recent weight gain or marked orthopneawith reported productive sputum with no associated chest discomfort with subjective fevers and chills but no specific temperature check prompting eventual ED evaluation. #1. Acute Hypoxia on Chronic Hypoxic Respiratory Failure secondary to Acute on Chronic COPD with concerning bilateral infiltrates with Suspected Acute viral syndrome with questionable Superimposed bilateral bacterial pneumonia: Will admit to MS, maintain on oxygen with wean as tolerated to home oxygen supplementation, continue ATC duonebs, PRN albuterol, IV methylprednisolone, HOB, IS parameters, will obtain sputum Cx, urine antigens, respiratory viral panel, procalcitonin, given leukocytosis with left shift will initiate on antibiotic therapy with IV Rocephin and azithromycin with de-escalation pending further evaluation. Blood culture x 2 pending per ED. #2. Hypertension: Continue home regimen including lisinopril, atenolol, Lasix, PRN hydralazine. #3. Hyperlipidemia: We will continue patient on statin therapy. #4. Diabetes mellitus type II with chronic neuropathy: Hold oral home regimen, continue home insulin regimen, ADA diet, accu checks w/ ISS, continue patient home chronic gabapentin regimen. #5. Anxiety and depression: We will continue patient home buspirone as well as venlafaxine home regimen. #6. Morbid Obesity: Weight loss and lifestyle changes encouraged. #7. Tobacco Abuse: Encouraged cessation, inpatient consultation per RT, NR if desired. #8. KELLIE: Given presentation will maintain on BIPAP q HS. #9. DVT prophylaxis: Lovenox. #10. CODE status: Patient HCPOA and living will are not in place but she notes that it was necessary she would want her daughter and her to be her decision makers. Discussed CODE status at length including difference between FULL code, DNR-CCA and DNR-CC status. Following discussions about the differences in these status, requested Full Code status. Advanced Care Planning Face to Face Time: 16 minutes. Charges/Coding Visit Charges Inpatient E&M: 27541 Init Hosp L3 Procedures Hospitalists Procedures: 61338 Advncd Care Plan 30 Min 02/25/231926 <Electronically signed by Chelsi Warner MD> Cosigner Signature (if applicable): CC: Dr. Chelsi Warner MD; Dr. Samson Hogan MD~ Signed [facility] Work Phone: 1(872) 805-429301-12-2024 History and physical note Author [facility] February 25, 2023 7:27pm Note Date/Time February 25, 2023 6 :13pm [facility] Medical Records Department [address] [place] [address] H&P Exam - Hospitalist 02/25/23 1813 MR#: [id number] Acct: [id number] Name: ROSA MARIA MENJIVAR Rep #:[id number] : 1965 57 From: Chelsi Warner MD PCP: Dr. Samson Hogan MD Status:ADM I N Location: [facility] [id number] HPI - General General Date of Admission: 02/25/23 Date of Service: 02/25/23 Chief Complaint: Dyspnea, cough, increased sputum, subjective fever/chills. HPI Narrative The patient is a 57 y/o F w/ PMHx: Morbid Obesity, Depression and Anxiety/Panic disorder, HTN, HLD, KELLIE, Diabetes mellitus type II with chronic neuropathy, COPDw/ Chronic Hypoxic Respiratory Failure (2L NC), Tobacco use, History of renal artery stenosis s/p PCI who presents to the [facility] ED on 02/25/2023 with history of onset progressively worsening fatigue, malaise, dyspnea and cough normally on 2 L nasal cannula with inhalers at home but no respiratory treatments on chronic Lasix 40 daily which is unchanged with no recent weight gain or marked orthopneawith reported productive sputum with no associated chest discomfort with subjective fevers and chills but no specific temperature check as well as congestion and rhinorrhea with sick contacts including her and her son with similar symptoms prompting eventual ED evaluation. Workup in the ED included T97.9, heart rate 90, BP 129/83, respiratory rate 24, initially 91% on 4 L nasal cannula with most recent vital signs heart rate 87, BP 171/62, respiratory rate 25, 89% on 5 L nasal cannula, CBC with WBC 16.2, hgb 13.5, platelet 267 with left shift, BMP with 38, BUN/creatinine 30/0.70, glucose 261, lactic acid 1.6, BNP 55.2, chest x-ray with mild interstitial infiltrates/possibly CHF, blood culture x 2 pending per ED, rapid SARS COVID/influenza/RSV PCR negative. In the ED patient ministered Solu-Medrol 125 mg IV x 1, DuoNeb and albuterol therapies, Motrin 400 mg p.o. x 1 as well as Rocephin 1 g IV x 1. [facility] Medical History (Updated 02/25/23 @ 19:[address] Chelsi Warner MD) Anxiety and depression Chronic respiratory failure Degenerative disc disease GERD (gastroesophageal reflux disease) HTN (hypertension) IBS (irritable bowel syndrome) Microalbuminuria Morbid obesity Neuropathy Panic disorder Sleep apnea Tobacco dependence syndrome Type 2 diabetes mellitus Urinary calculus Home Medications atenolol 50 mg tablet 50 mg PO DAILY BP 03/04/15 [History Last Taken 04/28/20 08:00] furosemide 40 mg tablet 40 mg PO DAILY water retention 03/04/15 [History Last Taken 04/28/20 08:00] gabapentin 300 mg capsule 300 mg PO TID nerve pain 03/04/15 [History Last Taken 04/28/20 17:00] lisinopril 20 mg-hydrochlorothiazide 12.5 mg tablet 2 tab PO DAILY BP 03/04/15 [History Last Taken 04/28/20 08:00] venlafaxine 150 mg capsule,extended release 24 hr 150 mg PO DAILY mood 03/04/15 [History Last Taken 04/28/20 08:00] albuterol sulfate 90 mcg/actuation breath activated powder inhaler 2 inh inhalation Q4H PRN Wheezing 12/26/18 [History Last Taken Unknown] aspirin 81 mg tablet,delayed release (Adult Low Dose Aspirin) 81 mg PO DAILY heart health 12/26/18 [History Last Taken 04/28/20 08:00] atorvastatin 40 mg tablet 40 mg PO QHS cholesterol 12/26/18 [History Last Taken 04/27/20 22:00] dulaglutide 1.5 mg/0.5 mL subcutaneous pen injector (Trulicity) 1.5 mg subcut THdiabetes 12/26/18 [History Last Taken 04/24/20 12:00] ibuprofen 800 mg tablet 800 mg PO Q6H PRN Pain Or Fever 12/26/18 [History Last Taken Unknown] potassium chloride 10 mEq tablet,extended release (K-Tab) 20 meq PO DAILY supplement 12/26/18 [History Last Taken 04/28/20 08:00] insulin degludec 100 unit/mL (3 mL) subcutaneous pen 83 unit SQ BID diabetes 09/01/19 [History Last Taken 04/28/20 17:00] buspirone 5 mg tablet 5 mg PO TID mood 04/28/20 [History Last Taken 04/28/20 17:00] insulin lispro 100 unit/mL subcutaneous pen 40 unit SQ LUNCH diabetes 04/28/20 [History Last Taken 04/28/20 12:00] insulin lispro 100 unit/mL subcutaneous pen 64 unit SQ BREAKFAST diabetes 04/28/20 [History Last Taken 04/28/20 08:00] insulin lispro 100 unit/mL subcutaneous pen 94 unit subcut QHS diabetes 04/28/20[History Last Taken 04/28/20 17:00] sulfamethoxazole 800 mg-trimethoprim 160 mg tablet 1 tablet PO BID #10 TABLETS 04/30/20 [Rx Last Taken Unknown] insulin lispro 100 unit/mL subcutaneous half-unit pen (Humalog Zafar KwikPen (U-100)) 3 unit subcut DAILY 02/25/23 [History Last Taken Unknown] insulin lispro 100 unit/mL subcutaneous half-unit pen (Humalog Zafar KwikPen (U-100)) 63 unit subcut DAILY 02/25/23 [History Last Taken Unknown] insulin lispro 100 unit/mL subcutaneous half-unit pen (Humalog Zafar KwikPen (U-100)) 93 unit subcut QHS 02/25/23 [History Last Taken Unknown] metformin 500 mg tablet,extended release 24 hr 1,000 mg PO BID 02/25/23 [History Last Taken Unknown] omeprazole 20 mg capsule,delayed release 20 mg PO DAILY 02/25/23 [History Last Taken Unknown] venlafaxine 75 mg capsule,extended release 24 hr 75 mg PO DAILY 02/25/23 [History Last Taken Unknown] Allergy/AdvReac Type Severity Reaction Status Date / Time tetanus and diphtheria Allergy Unknown swollen Verified 02/25/23 15:23 toxoids glands in neck that didn't decrease ketorolac tromethamine Allergy vivid Verified 02/25/23 15:23 [From Toradol] dreams morphine Allergy Itching Verified 02/25/23 15:23 Family History Aunt Diabetes Father Heart disease Sister Heart disease Grandfather Colon cancer Unknown Breast cancer Surgical History H/O dilation and curettage H/O lithotripsy History of renal stent Hx of cholecystectomy Hx of partial nephrectomy repair of r arm fx Social History (Updated 02/25/23 @ 19:[address] Chelsi Warner MD) household members: spouse Smoking Status: Current some day smoker tobacco type: cigarettes Smoking packs per day: 1 Smoking cigarettes per day: 20.0 quit status: considering quitting alcohol intake: never substance use type: does not use ROS ROS Narrative Admission Review of Systems: CONSTITUTIONAL: No weight loss, + subjective fever, chills, weakness or fatigue. HEENT: + Congestion, rhinorrhea, sneezing. Eyes: No visual loss, blurred vision, double vision or yellow sclerae. Ears, Nose, Throat: No hearing loss, sore throat. SKIN: No rash or itching, lesions, wounds. CARDIOVASCULAR: + Chronic Peripheral edema. No chest pain, chest pressure or chest discomfort, palpitations, orthopnea, syncopal events. RESPIRATORY: + Shortness of breath, cough with productive sputum, wheezing. No hemoptysis. GASTROINTESTINAL: No anorexia, nausea, vomiting or diarrhea, abdominal pain, melena, BRBPR. GENITOURINARY: No dysuria, frequency, urgency or retention. NEUROLOGICAL: No headache, dizziness, syncope, paralysis, ataxia, numbness or tingling in the extremities, focal weakness, change in bowel or bladder control,seizure. MUSCULOSKELETAL: + muscle, back pain, joint pain or stiffness. HEMATOLOGIC: No anemia, bleeding or bruising. LYMPHATICS: No enlarged nodes. No history of splenectomy. PSYCHIATRIC: + History of anxiety and depression. ENDOCRINOLOGIC: No reports of sweating, cold or heat intolerance. No polyuria orpolydipsia. ALLERGIES: No history of asthma, hives, eczema or rhinitis. Vital Signs Vital Signs Vital Signs: 02/25/23 15:19 02/25/23 15:28 02/25/23 15:28 Temperature 97.9 F 97.9 F Temperature Source Temporal Temporal Pulse Rate 90 90 90 Respiratory Rate 24 H 22 H 18 Respiratory Effort Respiratory Pattern Blood Pressure 129/83 H 129/83 H 129/83 H Blood Pressure Mean 98 98 98 Pulse Ox 91 93 91 Oxygen Delivery Method Nasal Cannula Nasal Cannula Nasal Cannula Oxygen Flow Rate (L/min) 4 4 02/25/23 15:32 02/25/23 15:35 02/25/23 15:51 Temperature Temperature Source Pulse Rate 89 Respiratory Rate 20 H Respiratory Effort Short of Breath Labored Respiratory Pattern Tachypnea Blood Pressure Blood Pressure Mean Pulse Ox 90 Oxygen Delivery Method Nasal Cannula Nasal Cannula Oxygen Flow Rate (L/min) 4 4 02/25/23 17:16 02/25/23 18:00 02/25/23 18:03 Temperature Temperature Source Pulse Rate 88 87 Respiratory Rate 24 H 25 H Respiratory Effort Respiratory Pattern Blood Pressure 143/66 H Blood Pressure Mean 91 Pulse Ox 92 89 Oxygen Delivery Method Nasal Cannula Nasal Cannula Oxygen Flow Rate (L/min) 5 5 02/25/23 17:48 Temperature Temperature Source Pulse Rate 84 Respiratory Rate 24 H Respiratory Effort Respiratory Pattern Blood Pressure 171/62 H Blood Pressure Mean 98 Pulse Ox 90 Oxygen Delivery Method Oxygen Flow Rate (L/min) Weight Weight: 333 lb 5.423 oz Body Mass Index (BMI) 55.4 Physical Exam Narrative Physical Examination: General: Awake, alert, oriented x 3 and cooperative, seated upright in the ED bedside chair, fatigued, still mildly increased respiratory rate but no overt distress, notes feeling mildly improved. Skin: Normal color, normal turgor, no icterus, no cyanosis except for occasionalstaged ecchymoses, intertrigo. HEENT: AT/NC, EOMI, PERRLA, dry MM, difficult to discern carotid bruits and JVD given thickened neck, evident mouth breather. Lungs: CTA bilaterally, moderate effort, mild decrease BL bases, no rales, ronchi or wheezing. Heart: Regular rate and rhythm; no gallop, rub audible. Abdomen: Soft, morbidly obese, no tenderness palpation, distant BS, difficult todiscern distention and HSM given habitus. Extremities: No cyanosis, no clubbing, significant bilateral lower extremity chronic peripheral lymphedema unchanged per her report Neurological: Patient awake, alert, oriented as noted, cognitive function intact; pupils equally reactive to light and accommodation, cranial nerves grossly normal, moving all 4 extremities, no focal deficits, strength severely globally decreased secondary to acute presentation and underlying comorbidities. Psychiatric: Affect appears fatigued, still appears dyspneic with mildly increased respiratory rate and some accessory muscle usage but she reports feeling significantly improved, no acute evidence of depressive or anxiety feelings but does have underlying history. Results Lab / Micro Data 02/25/23 15:35 02/25/23 15:35 Labs: Laboratory Results - last 24 hr 02/25/23 15:35: WBC 16.2 H, RBC 5.13, Hgb 13.5, Hct 45.6, MCV 88.9, MCH 26.3 L, MCHC 29.6 L, RDW Std Deviation 44.9 H, RDW Coeff of Ramy 13.7, Plt Count 267, MPV9.9, Immature Gran % (Auto) 0.600, Neut % (Auto) 79.4 H, Lymph % (Auto) 11.1 L, [place] % (Auto) 7.2, Eos % (Auto) 1.1, Baso % (Auto) 0.6, Absolute Neuts (auto) 12.9 H, Absolute Lymphs (auto) 1.79, Nucleated RBC % 0, Sodium 140, Potassium 3.9, Chloride 98, Carbon Dioxide 38.0 H, Anion Gap 4 L, BUN 30 H, Creatinine 0.70, Estim Creat Clear Calc 134.13, Est GFR (MDRD) Af Amer 110, Est GFR (MDRD) Non-Af 91, BUN/Creatinine Ratio 42.6 H, Glucose 261 H, Lactic Acid 1.6, Calcium 8.6, B-Natriuretic Peptide 55.2 Micro: Microbiology 02/25/23 15:36 Mucosa - Nose SARS-CoV-2, Influenza & RSV (PCR) - Final Imagaing Radiology Impression Chest X-Ray 02/25/23 15:41 IMPRESSION: Mild CHF or interstitial infiltrates Electronically Signed: Dakota Montague MD at 16:51 EST , Assessment & Plan Assessment/Plan (1) COPD with acute exacerbation: PLAN: Plan The patient is a 57 y/o F w/ PMHx: Morbid Obesity, Depression and Anxiety/Panic disorder, HTN, HLD, KELLIE, Diabetes mellitus type II with chronic neuropathy, COPDw/ Chronic Hypoxic Respiratory Failure (2L NC), Tobacco use, History of renal artery stenosis s/p PCI who presents to the [facility] ED on 02/25/2023 with history of onset progressively worsening fatigue, malaise, dyspnea and cough normally on 2 L nasal cannula with inhalers at home but no respiratory treatments on chronic Lasix 40 daily which is unchanged with no recent weight gain or marked orthopneawith reported productive sputum with no associated chest discomfort with subjective fevers and chills but no specific temperature check prompting eventual ED evaluation. #1. Acute Hypoxia on Chronic Hypoxic Respiratory Failure secondary to Acute on Chronic COPD with concerning bilateral infiltrates with Suspected Acute viral syndrome with questionable Superimposed bilateral bacterial pneumonia: Will admit to MS, maintain on oxygen with wean as tolerated to home oxygen supplementation, continue ATC duonebs, PRN albuterol, IV methylprednisolone, HOB, IS parameters, will obtain sputum Cx, urine antigens, respiratory viral panel, procalcitonin, given leukocytosis with left shift will initiate on antibiotic therapy with IV Rocephin and azithromycin with de-escalation pending further evaluation. Blood culture x 2 pending per ED. #2. Hypertension: Continue home regimen including lisinopril, atenolol, Lasix, PRN hydralazine. #3. Hyperlipidemia: We will continue patient on statin therapy. #4. Diabetes mellitus type II with chronic neuropathy: Hold oral home regimen, continue home insulin regimen, ADA diet, accu checks w/ ISS, continue patient home chronic gabapentin regimen. #5. Anxiety and depression: We will continue patient home buspirone as well as venlafaxine home regimen. #6. Morbid Obesity: Weight loss and lifestyle changes encouraged. #7. Tobacco Abuse: Encouraged cessation, inpatient consultation per RT, NR if desired. #8. KELLIE: Given presentation will maintain on BIPAP q HS. #9. DVT prophylaxis: Lovenox. #10. CODE status: Patient HCPOA and living will are not in place but she notes that it was necessary she would want her daughter and her to be her decision makers. Discussed CODE status at length including difference between FULL code, DNR-CCA and DNR-CC status. Following discussions about the differences in these status, requested Full Code status. Advanced Care Planning Face to Face Time: 16 minutes. Charges/Coding Visit Charges Inpatient E&M: 90356 Init Hosp L3 Procedures Hospitalists Procedures: 96457 Advncd Care Plan 30 Min 02/25/231926 <Electronically signed by Chelsi Warner MD> Cosigner Signature (if applicable): CC: Dr. Chelsi Warner MD; Dr. Samson Hogan MD~ Signed [facility] Work Phone: 1(619) 155-406501-12-2024 Discharge summary Author Desmond Bharataniket [facility] February 25, 2023 5:48pm Note Date/Time February 25, 2023 3 :43pm [facility] Medical Records Department [address] [place] [id number] Emergency Department Summary 02/25/23 MR#: [id number] Acct: [id number] Name: ROSA MARIA MENJIVAR Rep #:[id number] : 1965 57 From: Desmond Infante MD PCP: Dr. Samson Hogan MD Status:REG E R Location: ED HPI History of Present Illness Chief Complaint: Shortness of Breath Informant: patient Narrative Narrative: Patient presents with dyspnea and cough. Patient states she started having symptoms 3 to 4 days ago. She has COPD. She is on 2 L. She states she has inhalers but no home respiratory treatments. Sheis on Lasix 40 a day this has not changed. But she denies a history of CHF. She states the last 3 to 4 days she has been coughing more. She is bringing up more material but does not know what it looks like. She states she has not seenblood. She has never had chest pain with it. She has felt hot and cold but hasnot actually checked her temperature. [facility] Medical History Degenerative disc disease Depression HTN (hypertension) IBS (irritable bowel syndrome) Microalbuminuria Obesity Panic disorder Sleep apnea Type 2 diabetes mellitus Urinary calculus Home Medications atenolol 50 mg tablet 50 mg PO DAILY BP 03/04/15 [History Last Taken 04/28/20 08:00] furosemide 40 mg tablet 40 mg PO DAILY water retention 03/04/15 [History Last Taken 04/28/20 08:00] gabapentin 300 mg capsule 300 mg PO TID nerve pain 03/04/15 [History Last Taken 04/28/20 17:00] lisinopril 20 mg-hydrochlorothiazide 12.5 mg tablet 2 tab PO DAILY BP 03/04/15 [History Last Taken 04/28/20 08:00] metformin 500 mg tablet 1,000 mg PO BIDCM diabetes 03/04/15 [History Last Taken 04/28/20 17:00] venlafaxine 150 mg capsule,extended release 24 hr 225 mg PO DAILY mood 03/04/15 [History Last Taken 04/28/20 08:00] albuterol sulfate 90 mcg/actuation breath activated powder inhaler 2 inh inhalation Q4H PRN Wheezing 12/26/18 [History Last Taken Unknown] aspirin 81 mg tablet,delayed release (Adult Low Dose Aspirin) 81 mg PO DAILY heart health 12/26/18 [History Last Taken 04/28/20 08:00] atorvastatin 40 mg tablet 40 mg PO QHS cholesterol 12/26/18 [History Last Taken 04/27/20 22:00] dulaglutide 1.5 mg/0.5 mL subcutaneous pen injector (Trulicity) 1.5 mg subcut THdiabetes 12/26/18 [History Last Taken 04/24/20 12:00] ibuprofen 800 mg tablet 800 mg PO Q6H PRN Pain Or Fever 12/26/18 [History Last Taken Unknown] potassium chloride 10 mEq tablet,extended release (K-Tab) 20 meq PO DAILY supplement 12/26/18 [History Last Taken 04/28/20 08:00] insulin degludec 100 unit/mL (3 mL) subcutaneous pen 88 unit SQ BID diabetes 09/01/19 [History Last Taken 04/28/20 17:00] buspirone 5 mg tablet 5 mg PO TID mood 04/28/20 [History Last Taken 04/28/20 17:00] insulin lispro 100 unit/mL subcutaneous pen 40 unit SQ LUNCH diabetes 04/28/20 [History Last Taken 04/28/20 12:00] insulin lispro 100 unit/mL subcutaneous pen 64 unit SQ BREAKFAST diabetes 04/28/20 [History Last Taken 04/28/20 08:00] insulin lispro 100 unit/mL subcutaneous pen 94 unit subcut QHS diabetes 04/28/20[History Last Taken 04/28/20 17:00] amoxicillin 875 mg-potassium clavulanate 125 mg tablet 875 mg (0.875 x 875-125 mg) PO Q12H #10 TABLETS 04/30/20 [Rx Last Taken Unknown] sulfamethoxazole 800 mg-trimethoprim 160 mg tablet 1 tablet PO BID #10 TABLETS 04/30/20 [Rx Last Taken Unknown] Allergy/AdvReac Type Severity Reaction Status Date / Time tetanus and diphtheria Allergy Unknown swollen Verified 02/25/23 15:23 toxoids glands in neck that didn't decrease ketorolac tromethamine Allergy vivid Verified 02/25/23 15:23 [From Toradol] dreams morphine Allergy Itching Verified 02/25/23 15:23 Family History Aunt Diabetes Father Heart disease Sister Heart disease Grandfather Colon cancer Unknown Breast cancer Surgical History H/O dilation and curettage H/O lithotripsy History of renal stent Hx of cholecystectomy R lower portion of kidney removed repair of r arm fx Social History Smoking Status: Current some day smoker tobacco type: cigarettes alcohol intake: never substance use type: does not use ROS ROS ED ROS Narrative A complete review of systems was performed and is negative except as documented in the history of present illness. Some specific details below. Constitutional: No recent measured fevers but she has had chills intermittently which is new. EYE: No discharge, visual complaints, or pain. ENT: No difficulty swallowing. No swelling. No pain. No reflux symptoms. CV: She denies palpitations or chest pain. No syncope. Respiratory: See history of present illness. GI: No abdominal pain. No nausea vomiting diarrhea. No blood in stool. Appetitehas been somewhat down. : No frequency dysuria or hematuria. Musculoskeletal: No recent trauma. No pains. No swelling. Skin: No rash. Nondiaphoretic. Neuro: No weakness or numbness. Endocrine: No polyuria or polydipsia. EXAM Physical Exam Narrative Exam Narrative: CONSTITUTIONAL: Patient is nontoxic in appearance. The patient looks comfortable. Work of breathing looks increased. HEENT: No notable trauma. Mucous membranes moist. No sinus tenderness. No indication of pain with swallowing. EYES: Mild conjunctival injection. Mild proptosis. NECK:No JVD. No stridor. CARDIOVASCULAR: Regular rate. Regular rhythm. No notable murmur. No JVD. Her rate is about 90 on the monitor and appears to be sinus. No ectopy is noted. RESPIRATORY: No respiratory distress but there is an increased work of breathing. She is satting about 90% on 4 L which is twice her baseline and thisis just sitting still. Her lungs are quite quiet. I do not hear rales rhonchi or wheezing. But I do not hear much air motion at all. GASTROINTESTINAL: Obese but not distended. Bowel sounds are normal. No tenderness. No guarding. No rebound. No palpable mass. No bruit is heard. GENITOURINARY: No tenderness over the bladder. No CVA tenderness. MUSCULOSKELETAL: Atraumatic. No notable peripheral edema. NEUROLOGICAL: Patient is alert and appropriate. No focal deficit noted. She is not at all sleepy or lethargic. SKIN: No noted rashes. No diaphoresis. PSYCHIATRIC: Patient is calm. Mood is appropriate. Const Vital Signs: 02/25/23 15:19 02/25/23 15:28 02/25/23 15:28 Temperature 97.9 F 97.9 F Temperature Source Temporal Temporal Pulse Rate 90 90 90 Respiratory Rate 24 H 22 H 18 Respiratory Effort Respiratory Pattern Blood Pressure 129/83 H 129/83 H 129/83 H Blood Pressure Mean 98 98 98 Pulse Ox 91 93 91 Oxygen Delivery Method Nasal Cannula Nasal Cannula Nasal Cannula Oxygen Flow Rate (L/min) 4 4 02/25/23 15:32 02/25/23 15:35 02/25/23 15:51 Temperature Temperature Source Pulse Rate 89 Respiratory Rate 20 H Respiratory Effort Short of Breath Labored Respiratory Pattern Tachypnea Blood Pressure Blood Pressure Mean Pulse Ox 90 Oxygen Delivery Method Nasal Cannula Nasal Cannula Oxygen Flow Rate (L/min) 4 4 02/25/23 17:16 Temperature Temperature Source Pulse Rate 88 Respiratory Rate 24 H Respiratory Effort Respiratory Pattern Blood Pressure 143/66 H Blood Pressure Mean 91 Pulse Ox 92 Oxygen Delivery Method Nasal Cannula Oxygen Flow Rate (L/min) 5 MDM MDM MDM Narrative Medical decision making narrative: My independent interpretation of the patient's single AP chest x-ray shows cardiomegaly what appears to be a left effusion bilateral infiltrates. Some of this is due to the body habitus. When I compare this with her prior from 09/02/2019, it does look similar. Final reading is pending. 04: 00 I rechecked the patient. She is still using a aerosol. She is actually starting to move air now. There is expiratory wheezing. She is feeling a bit better. CBC shows mild elevation of white count at 16.2 Metabolic panel shows mildly high carbon dioxide. No other marked abnormalities. BNP is normal at 55.2. Lactic acid is normal at 1.6. We attempted walking the patient. Just standing up on the edge of the bed she had 81% without even walking. She was placed on nonrebreather and then she is weaned down to 5 L and we are weaning her back to 4 L. She will need to be admitted. I think this is primarily COPD. With her increased cough sputum production and white count we will treat with antibiotics also. Lab Data Attestation: I reviewed the patient's lab results. Labs: Laboratory Results - last 24 hr 02/25/23 15:35 WBC 16.2 H RBC 5.13 Hgb 13.5 Hct 45.6 MCV 88.9 MCH 26.3 L MCHC 29.6 L RDW Std Deviation 44.9 H RDW Coeff of Ramy 13.7 Plt Count 267 MPV 9.9 Immature Gran % (Auto) 0.600 Neut % (Auto) 79.4 H Lymph % (Auto) 11.1 L [place] % (Auto) 7.2 Eos % (Auto) 1.1 Baso % (Auto) 0.6 Absolute Neuts (auto) 12.9 H Absolute Lymphs (auto) 1.79 Nucleated RBC % 0 Sodium 140 Potassium 3.9 Chloride 98 Carbon Dioxide 38.0 H Anion Gap 4 L BUN 30 H Creatinine 0.70 Estim Creat Clear Calc 134.13 Est GFR (MDRD) Af Amer 110 Est GFR (MDRD) Non-Af 91 BUN/Creatinine Ratio 42.6 H Glucose 261 H Lactic Acid 1.6 Calcium 8.6 B-Natriuretic Peptide 55.2 Radiography Diagnostic Testing: Clinical Impression(s) from Imaging Studies Chest X-Ray 02/25/23 15:41 IMPRESSION: Mild CHF or interstitial infiltrates Electronically Signed: Dakota Montague MD at 16:51 EST Reading Location ID and State: [facility] / [place] Tel , Service support , EKG Initial EKG: Comments: My independent interpretation of the patient's EKG shows sinus rhythm with first-degree AV block overall rate is 90. No ventricular ectopy. There is nonspecific ST and T wave change but no sign of infarct or ischemia. WA interval is slightly long. However, QRS duration and QTc are normal. Management Discussion w/another healthcare provider: Hospitalist Discharge Plan Triage Chief Complaint: Shortness of Breath ED Provider: Desmond Infante Dx/Rx/DC Orders Clinical Impression: COPD with acute exacerbation, Morbid obesity, Hypoxia, Tobacco abuse Prescriptions: No Action Trulicity 1.5 mg/0.5 mL pen injector 1.5 mg SC TH potassium chloride [K-Tab] 10 mEq tablet extended release 20 meq PO DAILY atorvastatin 40 mg tablet 40 mg PO QHS albuterol sulfate 90 mcg/actuation aerosol powdr breath activated 2 inh INHALATION Q4H PRN (Reason: Wheezing) ibuprofen 800 mg tablet 800 mg PO Q6H PRN (Reason: Pain Or Fever) aspirin [Adult Low Dose Aspirin] 81 mg tablet,delayed release (DR/EC) 81 mg PO DAILY furosemide 40 MG tablet 40 mg PO DAILY metformin 500 MG tablet 1,000 mg PO BIDCM lisinopril-hydrochlorothiazide 1 TABLET tablet 2 tab PO DAILY venlafaxine 150 MG capsule 225 mg PO DAILY gabapentin 300 MG capsule 300 mg PO TID atenolol 50 MG tablet 50 mg PO DAILY insulin degludec 100 UNIT/ML insulin pen 88 unit SQ BID buspirone 5 MG tablet 5 mg PO TID insulin lispro 100 UNIT/ML insulin pen 64 unit SQ BREAKFAST Rx Instructions: 62/40/94 insulin lispro 100 UNIT/ML insulin pen 40 unit SQ LUNCH Rx Instructions: takes at noon insulin lispro 100 UNIT/ML insulin pen 94 unit SC QHS amoxicillin-pot clavulanate 875 MG tablet 875 mg PO Q12H Qty: 10 0RF sulfamethoxazole-trimethoprim 1 TABLET tablet 1 tablet PO BID Qty: 10 0RF Primary Care Provider: Samson Hogan Referrals: Samson Hogan MD [Primary Care Provider] - Disposition Disposition: Acute Care Hospital [facility] What to do if you have Problems For any increased pain, shortness of breath, bleeding, nausea or vomiting, chestpain, or any unexpected problems, contact your Primary Care Provider. Call [facility] ([phone]) or report to the closest Emergency Room. Call 911 if necessary. 02/25/231747 <Electronically signed by Desmond Infante MD> Cosigner Signature (if applicable): CC: Dr. Samson Hogan MD ~ Signed [facility] Work Phone: 1(831) 608-985812-15-2023 Miscellaneous Notes* Telephone Encounter - Dhara Naylor RN - 01/28/2023 4:07 PM EST Patient has been identified by name and [...] scheduled Dhara Naylor RN. documented in this encounterR[facility]12-04-2023 Miscellaneous Notes* Telephone Encounter - Marcy Pandya RN - 01/17/2023 12:03 PM EST Patient calling to say she needs new script for Insulin. [facility] was out of medication and the script was transferred to [facility]. [facility] Gallardo now has the medication in stock but [...] you. Marcy Pandya RN. documented in this encounterRivers[facility]11-13-2023 Miscellaneous Notes* Telephone Encounter - Melissa Clements - 12/27/2022 9:24 AM EST Rosa Maria Menjivar is calling M David Rizzo PA-C today requesting Insulin [place], Disposable, (ULTICARE PEN NEEDLE) 29 gauge x 1/2. Refill Request Patient has been identified by name and birthdate. Duration of symptoms: N/A Person calling: self Call patient at: on cell [phone] (home) [phone] (cell) Was an appointment scheduled: No Closing statement: Results or non-symptom based questions: Thank you for [facility], your call will be returned within the next business day. Melissa Clements documented in this encounterRiverside [facility] Hospital10-14-2023 Miscellaneous Notes* Telephone Encounter - Jovany Rizzo PA-C - 11/27/2022 5:14 PM EDT Discussed at OV. Thyroid nodule with radiologist recommend for FNA Telephone on 11/27/22 CONSULT TO GENERAL SURGERY Gigi Saini PA-C documented in this encounterRiverside [facility] Hospital10-13-2023 History of Present illness Narrative* Jovany Rizzo PA-C - 11/26/2022 9:40 AM EDT 56 year old female with c/o annual [...] Yes. Chest pain: some sharp chest pain surfacy- always has that off and on, can [...] <2.54 0.81 1.03 Pvd (peripheral vascular disease) ([facility]) Current medications: ASA 81 mg daily [...] 11 cm with 20-minute ramp and humidification Car [place]: Has established with Dr. Knox. Interval history: 09/30/2022 Pilar Cardoza PA-C 05/13/2022 [...] month 171 Watching diet? Yes- doing fairly well. Does eat spaghetti. Doing keto most of [...] ABDOMEN W/ & W/O CONTRAST 10/16/2021 10/16/2021 [facility] MRI w/wo IVCON: no patterns to suggest [...] 6 mL 4 flash glucose scanning reader (FREESTYLE TERRELL 2 [...] insulin coverage < 200 no coverage [id number] [id number] 3u [phone] 5u 351- 400 8u 451-500 12u > 500 go to ER 4 Each 2 insulin lispro (HUMALOG) 200 unit/mL (3 mL) injection 63 units am, 3 units afternoon, 93 units before evening meal 3 Each 5 Insulin [place], Disposable, (ULTICARE PEN NEEDLE) 29 gauge x 1/2 USE FIVE TIMES A DAY 200 Each 5 Lancets lancets Test blood sugar(s) 2 times daily. Dx: Type 2 DM - Uncontrolled E11.65 Insulin: [id number] Each 11 lisinopril-hydroCHLOROthiazide (ZESTORETIC) 20-12.5 mg per [...] TO 150 MGA DAY. 30 capsule 5 No current facility-administered [...] 10/14/2022 Influenza Vaccine(1) due on 10/15/2022 Covid-19 Vaccine( season) due on 10/15/2022 HbA1C due on [...] 64 YR, QUADRIVALENT (AFLURIA, FLULAVAL, FLUZONE) - [employer] COVID-19 VACCINE (2022- SEASON) AGE 12+ YR 18. Paronychia of finger of left hand - ICD9: 681.02, ICD10: L03.012 - Begin treatment with mupirocin three times a day until clear. - if worse call for oral ATB Use nail clipper rather than biting or ripping off hangnails. Jovany Rizzo PA-C documented in this encounterRiverside [facility] Hospital10-09-2023 History of Present illness Narrative* Lorena Benjamin RDMS - 11/22/2022 9:15 AM EDT Radiology Service Progress Note PATIENT NAME: Rosa [...] Cane, Wheelchair, Crutches, etc.)? Yes, Patient High Riskfor Falls What interventions were put in place to prevent falls during this visit? Offered Assistance with Transfers/Clothing and Increased Observations by Caregivers PATIENT GENDER DATA: Female. status: : No status: NO. PATIENT RELEVANT IMPLANT DATA REVIEWED: Not Applicable RADIOLOGY DEPARTMENT: Ultrasound PERIPHERAL IV DATA: Not applicable SIGNED BY: Lorena Benjamin RDMS November 22, 2022 12:58 PM documented in this encounterRiverside [facility] Hospital09-22-2023 Miscellaneous Notes* Telephone Encounter - Jovany Rodriguez RN - 11/05/2022 9:27 AM EDT Patient has been identified by [...] you. Jovany Rodriguez RN documented in this encounterRiverside [facility] Hospital08-29-2023 Miscellaneous Notes* Telephone Encounter - Dhara Naylor RN - 10/12/2022 3:46 PM EDT Medication refill requested by [facility]. Requested Prescriptions Pending Prescriptions Disp Refills [...] 1.110 Dhara Naylor RN documented in this encounterRiverside [facility] Hospital08-23-2023 Miscellaneous Notes* Telephone Encounter - Juma Lemus LPN - 10/06/2022 9:00 AM EDT Pt notified of Dr Taveras' message. Pt verbalizes understanding. Juma Lemus LPN * Telephone Encounter - Samson Hogan MD - 10/06/2022 8:34 AM EDT Insurance does not pay for screening carotid ultrasounds, only if we hear what is called a bruit orthey have had a stroke or tia as part of the work up or for following known blockage. To do carotid doppler for screening, have to utilize something like [employer] screening where you pay out of pocket. * Telephone Encounter - Sharon Horan LPN - 10/06/2022 8:28 AM EDT Patient calling she has Ultrasound of Thyroid scheduled for Wednesday 10/11, patient asking if she could have Carotid Ultrasound done same time? Patient is concerned and wanted to have her carotids checked. Please advise documented in this encounterRiverside [facility] Hospital08-18-2023 Miscellaneous Notes* Telephone Encounter - Nika Watters MA - 10/01/2022 2:14 PM EDT EDITA: 05/21/22 VV with PCP NOV: 10/19/22-med check with PCP Last refill: 09/24/21 With 6 kit and 3 refills Nika Watters MA * Telephone Encounter - Bhargavi Groves - 10/01/2022 2:04 PM EDT Patient has been identified by [...] and advise. Bhargavi Groves documented in this encounterRiverside [facility] Hospital08-01-2023 Miscellaneous Notes* Telephone Encounter - Sharon Horan LPN - 09/14/2022 10:35 AM EDT Patient has been identified by [...] you. Sharon Horan LPN documented in this encounterRiverside [facility] Hospital06-30-2023 Miscellaneous Notes* Telephone Encounter - Dhara Naylor RN - 08/13/2022 4:47 PM EDT Medication refill requested by Pharmacy Please review [...] 1.110 Dhara Naylor RN documented in this encounterRiverside [facility] Hospital06-28-2023 Miscellaneous Notes* Telephone Encounter - Rakel Douglas RN - 08/11/2022 9:00 AM EDT Patient calls to request a new order for compression stockings be sent to [facility] [place]. Pended per request with previous diagnosis of venous insufficiency. Rakel Douglas RN documented in this encounterRiverside [facility] Hospital06-22-2023 Miscellaneous Notes* Telephone Encounter - Jovany Rizzo PA-C - 08/05/2022 3:57 PM EDT The following approved medication requests have been [...] twice daily. Authorizing Provider: Jovany RIZZO PA-C * Telephone Encounter - Yesenia Blanco LPN - 08/05/2022 1:18 PM EDT Pt called in for refills on insulins [...] pharmacy. Yesenia Blanco LPN documented in this encounterRiverside [facility] Hospital06-15-2023 Miscellaneous Notes* Telephone Encounter - Elaine Parker LPN - 07/29/2022 11:50 AM EDT Patient was notified and verbalizes understanding. She will keep a close eye on readings and updateoffice on Tuesday. * Telephone Encounter - Samson Hogan MD - 07/29/2022 11:43 AM EDT Ok to resume what she was taking but go a little lower at 60 am and 90 pm and call sugars on Tuesday. Call if less than 80. * Telephone Encounter - Elaine Parker LPN - 07/29/2022 11:29 AM EDT Spoke with patient and what she is wanting to do is go back to the Humalog dosing prior to sliding scale. She was taking 64 units in the AM and 94 units in the PM. Then when she had changed her diet she was getting low readings and changed to the sliding scale. For some reason now sugars are up andis afraid she going to lose control of [...] and using all the sliding scale insulin. * Telephone Encounter - Samson Hogan MD - 07/29/2022 11:08 AM EDT Rx sent. I am confused. She should not have decreased any insulin at all. We have just been increasing what she was already on. Did she decrease insulin on her own or misunderstand what she is supposed to be doing. * Telephone Encounter - Sharon Horan LPN - 07/29/2022 9:59 AM EDT Patient calling said she is taking 2 antibiotics from [facility] care for skin infection on her back. She has 3 and 1/2 days of both antibiotics left and now having yeast infection issues, vaginal itching and cream like discharge when wiping. Patient asking for diflucan rx. Patient uses [facility] for her pharmacy. Pending rx if wanted. Patient said her blood sugars have been going up over 400 sometimes 4 to 5 days a week for some time. She said she is taking Humalog 8 units plus her sliding scale. Patient was asking to go back to amount of insulin she used to be taking, does not like theover 400 readings. Patient has follow up with the skin infection with Lu scheduled for 08/03. Please advise documented in this encounterRiverside [facility] Hospital06-09-2023 History of Present illness Narrative* Maryann Alexander APRN.[employer] BPM ARCHITECT - 07/23/2022 9:28 AM EDT Images from the original note were not included. Subjective The history is provided by the patient. No hide stretcher hand was used. HPI Rosa Maria Menjivar is a 56 year old female who presents today for CC of red tender spot that started about a week ago and has gotten bigger. She also noted two red itchy spots on abdomen. She alsois complaining of bilateral elbow pain, states she [...] morbid obesity. COPD (chronic obstructive pulmonary disease) ([facility]) with chronic hypoxemic respiratory failure; on oxygen 2 liters continuously Degenerative disc disease Depression Diabetes mellitus type II Dyslipidemia Hypertension IBS (irritable bowel syndrome) Microalbuminuria on adwoa inhibitor Obesity Palpitations Panic disorder Renal calculus Renal cell carcinoma of right kidney ([facility]) 2009 S/P partial right nephrectomy Sleep apnea uses CPAP Tobacco abuse Urinary calculus, unspecified Renal stones I have confirmed and edited as necessary, the [facility] Review of Systems Constitutional: Negative for [...] for higher level of care were discussed indetail warranting prompt ER evaluation. Maryann Alexander APRN.RANDALL documented in this encounterRiverside [facility] Hospital06-08-2023 Miscellaneous Notes* Telephone Encounter - Elaine Parker LPN - 07/22/2022 8:01 AM EDT See Edfoliot message Dr Hogan asking to set up with endo TRANSMITTER SUPERVISOR here in [place] ([place]). Thank you documented in this encounterRiverside [facility] Hospital06-07-2023 Miscellaneous Notes* Addendum Note - Samson Hogan MD - 07/21/2022 5:38 PM EDTAddended by: SAMSON HOGAN on: 07/21/2022 05:38 PM Modules accepted: Orders * Telephone Encounter - Samson Hogan MD - 07/21/2022 5:37 PM EDT Set up with endo fire control assistant documented in this encounterRiverside Methodist Hospital05-16-2023 Miscellaneous Notes* Telephone Encounter - Jennifer Ashley Pss - 06/29/2022 12:36 PM EDT Patient said she uses a [employer] system, but her reading are much higher than when she testswith a test strip. * Telephone Encounter - Jennifer Ashley Pss - 06/29/2022 12:35 PM EDT Patient has been identified by [...] patient. Jennifer Ashley Pss documented in this encounterRiverside [facility] Hospital05-12-2023 Miscellaneous Notes* Telephone Encounter - Afia Lee RN - 06/25/2022 3:54 PM EDT Last Office Visit: 05/21/2022 Future Office Visit: None Requested Prescriptions Pending Prescriptions Disp Refills venlafaxine ER (EFFEXOR XR) 150 mg 24 hr capsule 84 capsule 3 Sig: Take 1 capsule by mouth once daily. documented in this encounterRiverside [facility] Hospital04-13-2023 Miscellaneous Notes* Telephone Encounter - Jovany Rodriguez RN - 05/27/2022 4:30 PM EDT Patient has been identified by [...] you. Jovany Rodriguez RN documented in this encounterRiverside [facility] Hospital04-13-2023 Miscellaneous Notes* Telephone Encounter - Elaine Parker LPN - 05/27/2022 4:11 PM EDT Spoke with daughter and states that hasn't had any readings over she believes 150 in probably a week. Encouraged to keep up the good work. Advised to send readings in 3-4 days. Asking for us to send sliding scale in [employer] message so will do that for patient. * Telephone Encounter - Jovany Rizzo PA-C - 05/27/2022 3:47 PM EDT Stop meal time insulin routine dosing Will go to coverage scale only Lispro insulin coverage < 200 no coverage 201-250 2u 251-300 3u 301-350 5u 351-400 8u 451-500 12u > 500 go to ER Report blood sugars again in 3-4 days. Thanks, Gigi Rizzo PA-C * Telephone Encounter - Afia Lee RN - 05/27/2022 12:23 PM EDT Patient's daughter Melissa calls and states that [...] sandwich and a side of some sort. Dinnersare usually in between 7-7:30. Daughter asking about insulin orders. See also message below: Please review and advise, Afia Lee RN * Telephone Encounter - Jennifer Nugent LPN - 05/25/2022 12:04 PM EDT Pt's daughter calls to report more low [...] advise. Jennifer Nugent LPN documented in this encounterRiverside [facility] Hospital04-13-2023 Miscellaneous Notes* Telephone Encounter - Dhara Naylor RN - 05/27/2022 3:22 PM EDT Patient returned call and states she thinks she passed a kidney stone. Discomfort has improved and tylenol effective at this time. Pt states no longer needs request below. Dhara Naylor RN * Telephone Encounter - Becky Jimenez Ma - 05/27/2022 9:41 AM EDT Left message for patient to return call. Becky Jimenez Ma * Telephone Encounter - Jovany Rizzo PA-C - 05/27/2022 6:44 AM EDT Will need testing to establish stone if still having pain. Will need OV to examine and check urine. Thanks, Gigi Rizzo PA-C * Telephone Encounter - Elaine Parker LPN - 05/26/2022 3:02 PM EDT 05/21/22 was given #12 hydrocodone following virtual visit for kidney stone. * Telephone Encounter - Bernie Ayala - 05/26/2022 2:39 PM EDT Rosa Maria Menjivar is calling Jovany Rizzo PA-C today to request pain medication for a kidney stone. Please call her cell number. Patient has been identified by name and birthdate. Duration of symptoms: N/A Person calling: self Call patient at: on cell [phone] (home) [phone] (cell) Was an appointment scheduled: No Closing statement: Symptom Call: Thank you for [facility], your call is very important. A nurse will call in approximately 2-4 hours during business hours. If this is an emergency, please contact 911. Bernie Ayala documented in this encounterRiverside Methodist Hospital04-10-2023 Miscellaneous Notes* Telephone Encounter - Becky Jimenez Ma - 05/24/2022 5:23 PM EDT Patient notified of dosage adjustments and med list updated * Telephone Encounter - Jovany Rizzo PA-C - 05/24/2022 4:59 PM EDT Please have her: Lower insulin degludec to 66u daily twice a day Lower insulin Lispro to 59u breakfast, 36u lunch, 76u dinner Report any blood sugar less than 90 Thanks, Gigi Rizzo PA-C * Telephone Encounter - Jovany Rodriguez RN - 05/24/2022 12:38 PM EDT Patient phoned to let pcp know she is having low BS readings since last night: 72 right now, last night at 5:31 pm 64, 63, 59, 57, 60, 65, 84, 86, 167, 129, 95. Reports she is taking humalog 66 breakf-40 lunch(forgot yesterday as she was napping)-84 dinner. Tresiba 88 bid, and trulicity 4.5 mg weekly. Please advise patient. documented in this encounterR[facility] History of Present illness Narrative* Jovany Rizzo PA-C - 05/21/2022 10:00 AM EDT [facility] video visit was used for evaluation of this patient. Location of patient: [place] Patient was offered a virtual/telemedicine appointment in lieu of an office visit due to recommendations to reduce patient exposure to COVID-19. Patient is aware of limitations of performing the visit without a face to face visit in the office setting and agrees. I have communicated my name and active licensure. The patient's identity and physical location wereverified at the time of this visit. Either the patient or their legal community relations representative has been informed of the risks and benefits of -- and alternatives to -- treatment through a remote evaluation andconsents to proceed with the evaluation remotely. 10:23 [...] <2.54 0.81 1.03 Pvd (peripheral vascular disease) ([facility]) Current medications: ASA 81 mg daily 01/15/2022 PVR RABI 1.00, LABI 0.95 Chronic hypoxemic respiratory failure ([facility]) Chronic obstructive pulmonary disease, unspecified copd type ([facility]) Obstructive sleep apnea syndrome Lung nodules Current medications: O2 2 L/min nasal cannula continuous CPAP 11 cm with 20-minute ramp and humidification [place]: Has established with Dr. Knox. Interval history: 05/13/2022 Right lung groundglass nodule [...] was better a few weeks and now sickagain with sinus drainage. Nofever Asking for ATB. Wheezing: Yes. Mild, off and on Smokin/2 PPD, goes outside to smoke. Tried patches for a while. Compliant with medications: Yes. Using rescue inhaler: none available- hasn't needed. CPAP: compliant Type 2 diabetes mellitus without complication, with long-term current use of insulin ([facility]) Albuminuria Current medications: Lispro 200 unit: [...] month 171 Watching diet? Yes- doing fairly well. Does eat spaghetti. Doing keto most of [...] NONOBSTETRIC Dilation & curettage LAPAROSCOPY SURG CHOLECYSTECTOMY 2002 Cholecystectomy, lap LITHOTRIPSY XTRCORP SHOCK WAVE Lithotripsy x 2 Stents x 3 MRI ABDOMEN W/ & W/O CONTRAST 10/16/2021 10/16/2021 [facility] MRI w/wo IVCON: no patterns to suggest [...] TO 150 MGA DAY. 30 capsule 5 flash glucose scanning reader (FREESTYLE TERRELL 2 READER) 1 Each four times daily. 1 Each 0 flash glucose sensor (FREESTYLE TERRELL 2 SENSOR) kit 1 Each four times daily. 6 Kit 3 Insulin [place], Disposable, (ULTICARE PEN NEEDLE) 29 gauge x [...] Type 2 DM - Uncontrolled E11.65 Insulin: [id number] Each 11 CPAP 11 cm via nasal [...] distress. Alert and oriented all spheres. Normal affectand cognition. Speech normal. No deficits to learning [...] J96.11 Stable on medication Follows with Dr. Knox 5. Type 2 diabetes mellitus without complication, [...] call Jovany Rizzo PA-C documented in this encounterRivers[facility]03-30-[facility]23 History of Present illness Narrative* Reef Ting Arzola RT(R) - 05/13/2022 9:00 AM EDT Radiology Service Progress Note PATIENT NAME: Rosa [...] 13, 2022 9:29 AM documented in this encounterRiverside [facility] Hospital03-16-2023 Miscellaneous Notes* Telephone Encounter - Marcy Pandya RN - 04/29/2022 2:29 PM EDT Patient has been identified by [...] 06/16/2021 120/76 Please advise. Thank you. Marcy Pandya RN documented in this encounterRiverside [facility] Hospital03-02-2023 Miscellaneous Notes* Telephone Encounter - Janee Balnco Pss - 04/15/2022 9:13 AM EST Patient has been identified by name and [...] to the pharmacy. Please call patient at: [phone]. Janee Wheelerhl Pss documented in this encounterRiverside [facility] Hospital02-06-2023 Miscellaneous Notes* Telephone Encounter - Becky Jimenez Ma - 03/22/2022 5:08 PM EST Detailed message left for pt * Telephone Encounter - Jovany Rizzo PA-C - 03/22/2022 4:50 PM EST Telephone on 03/22/22 HGB A1C COMP METABOLIC PANEL CBC + DIFF LIPID PANEL BASIC Thanks, Gigi Rizzo PA-C * Telephone Encounter - Afia Lee RN - 03/22/2022 3:49 PM EST Patient calls and states that she is [...] advise, Afia Lee RN documented in this encounterRiverside [facility] Hospital01-20-2023 Miscellaneous Notes* Telephone Encounter - Brittney Pearl LPN - 03/05/2022 10:27 AM EST Attempted to contact patient re: [employer] VV at number listed. Left message. Patient is active on [employer] and has confirmed login today, are we using [employer] platform for VV today? Unable to do telephone visit. Would need to reschedule to [employer] VV or F2F. Brittney Pearl LPN * Telephone Encounter - Kayla Knox LPN - 03/05/2022 9:47 AM EST Patient called in stating she would like to be called on this number [phone] for her virtual visit with Dr. Knox today. Kayla Knox LPN documented in this encounterRiverside [facility] Hospital01-18-2023 Miscellaneous Notes* Telephone Encounter - Marcy Pandya RN - 03/03/2022 1:51 PM EST Patient has been identified by name and [...] you. Marcy Pandya RN documented in this encounterRiverside [facility] Hospital12-20-2022 Miscellaneous Notes* Telephone Encounter - Shaila Anderson Pss - 02/02/2022 3:04 PM EST Patient has been identified by name and [...] patient. Shaila Anderson Pss documented in this encounterRiverside [facility] Hospital11-22-2022 Miscellaneous Notes* Telephone Encounter - CARMEN Trevino - 01/05/2022 1:32 PM EST TC to ARNEL who verifies that patient is out of refills of the Humalog pen. EDITA ([place]) on 09/24/21 No appointment scheduled. Please advise. Thank you. CARMEN Trevino * Telephone Encounter - Shaila Ayala - 01/05/2022 12:57 PM EST Patient needs this today please. * Telephone Encounter - Shaila Ayala - 01/05/2022 12:55 PM EST Patient has been identified by name and [...] patient. Shaila Anderson Pss documented in this encounterRiverside [facility] Hospital10-28-2022 Miscellaneous Notes* Telephone Encounter - Becky Jimenez Ma - 12/11/2021 2:15 PM EDT LV 09/24/21 No follow up visit * Telephone Encounter - Ernestina Moses Pss - 12/11/2021 1:42 PM EDT Patient has been identified by [...] advise. Ernestina Moses Pss documented in this encounterRiverside [facility] Hospital10-27-2022 Miscellaneous Notes* Telephone Encounter - Jovany Rodriguez RN - 12/10/2021 10:09 AM EDT Patient has been identified by [...] you. Jovany Rodriguez RN documented in this encounterRiverside [facility] Hospital09-28-2022 Miscellaneous Notes* Telephone Encounter - Rich Irby LPN - 11/11/2021 2:27 PM EDT EDITA 09/24/21 (virtual) 06/16/21 (in person) NOV no upcoming appt * Telephone Encounter - Gayle Beltran - 11/11/2021 2:20 PM EDT Patient has been identified by [...] No need to notify patient. [facility] documented in this encounterRiverside [facility] Hospital09-19-2022 Miscellaneous Notes* Telephone Encounter - Becky Jimenez Ma - 11/02/2021 1:28 PM EDT MRI in scanned documents * Telephone Encounter - Jovany Rizzo PA-C - 10/23/2021 4:55 PM EDT To my knowledge, I have not yet seen it. It may have gone to scanning though. Thanks, Gigi Rizzo PA-C * Telephone Encounter - Yesenia Blanco LPN - 10/22/2021 11:46 AM EDT Pt called back checking to see if you have received a copy of her MRI done at [facility] in [place]. last week. She is going to give them a call and have them refax . Fax number given. Please advise pt with results . Yesenia Blanco LPN documented in this encounterRiverside [facility] Hospital09-12-2022 Miscellaneous Notes* Telephone Encounter - Nel Mcgarry LPN - 10/26/2021 10:12 AM EDT Phoned patient and updated her and Melissa on order for consult. Chart notes, labs, order and face sheet forwarded to Dr Yepez's office. * Telephone Encounter - Jovany Rizzo PA-C - 10/25/2021 11:55 AM EDT Please schedule nephro consult Dr. Macias and send last chart notes and recent labs. Telephone on 10/25/21 CONSULT TO NEPHROLOGY Albuminuria (primary encounter diagnosis) Type 2 diabetes mellitus with other specified complication, with long-term current use of insulin ([facility]) Thanks, Gigi Rizzo PA-C documented in this encounterRiverside Methodist Hospital09-11-2022 History of Past illness Narrative* Problem Noted Date Resolved Date Pancreatic cyst 10/25/2021 10/25/2021 Overview: Dehiscence of incision 09/18/2009 1 Surgical wound infection 09/18/2009 019 Malignant neoplasm of kidney excluding renal pel vis 11/21/2008 06/25/2015 Urinary complications 03/21/2008 11/19/2015 Acute kidney failure, unspecified 03/21/2008 01/17/2017 documented as of this encounter (statuses as of 10/25/2021) [facility] of Past illness Narrative* Problem Noted Date Resolved Date Pancreatic cyst 10/25/2021 10/25/2021 Overview: Dehiscence of incision 09/18/2009 1 Surgical wound infection 09/18/2009 019 Malignant neoplasm of kidney excluding renal pel vis 11/21/2008 06/25/2015 Urinary complications 03/21/2008 11/19/2015 Acute kidney failure, unspecified 03/21/2008 01/17/2017 documented as of this encounter (statuses as of 11/02/2021) [facility] of Past illness Narrative* Problem Noted Date Resolved Date Pancreatic cyst 10/25/2021 10/25/2021 Overview: Dehiscence of incision 09/18/2009 1 Surgical wound infection 09/18/2009 019 Malignant neoplasm of kidney excluding renal pel vis 11/21/2008 06/25/2015 Urinary complications 03/21/2008 11/19/2015 Acute kidney failure, unspecified 03/21/2008 01/17/2017 documented as of this encounter (statuses as of 11/12/2021) [facility] of Past illness Narrative* Problem Noted Date Resolved Date Pancreatic cyst 10/25/2021 10/25/2021 Overview: Dehiscence of incision 09/18/2009 1 Surgical wound infection 09/18/2009 019 Malignant neoplasm of kidney excluding renal pel vis 11/21/2008 06/25/2015 Urinary complications 03/21/2008 11/19/2015 Acute kidney failure, unspecified 03/21/2008 01/17/2017 documented as of this encounter (statuses as of 12/10/2021) [facility] Past illness Narrative* Problem Noted Date Resolved Date Pancreatic cyst 10/25/2021 10/25/2021 Overview: Dehiscence of incision 09/18/2009 1 Surgical wound infection 09/18/2009 019 Malignant neoplasm of kidney excluding renal pel vis 11/21/2008 06/25/2015 Urinary complications 03/21/2008 11/19/2015 Acute kidney failure, unspecified 03/21/2008 01/17/2017 documented as of this encounter (statuses as of 12/12/2021) [facility] illness Narrative* Problem Noted Date Resolved Date Pancreatic cyst 10/25/2021 10/25/2021 Overview: Dehiscence of incision 09/18/2009 1 Surgical wound infection 09/18/2009 019 Malignant neoplasm of kidney excluding renal pel vis 11/21/2008 06/25/2015 Urinary complications 03/21/2008 11/19/2015 Acute kidney failure, unspecified 03/21/2008 01/17/2017 documented as of this encounter (statuses as of 01/06/2022) [facility] Narrative* Problem Noted Date Resolved Date Pancreatic cyst 10/25/2021 10/25/2021 Overview: Dehiscence of incision 09/18/2009 1 Surgical wound infection 09/18/2009 019 Malignant neoplasm of kidney excluding renal pel vis 11/21/2008 06/25/2015 Urinary complications 03/21/2008 11/19/2015 Acute kidney failure, unspecified 03/21/2008 01/17/2017 documented as of this encounter (statuses as of 01/14/2022) [facility] illness Narrative* Problem Noted Date Resolved Date Pancreatic cyst 10/25/2021 10/25/2021 Overview: Dehiscence of incision 09/18/2009 1 Surgical wound infection 09/18/2009 019 Malignant neoplasm of kidney excluding renal pel vis 11/21/2008 06/25/2015 Urinary complications 03/21/2008 11/19/2015 Acute kidney failure, unspecified 03/21/2008 01/17/2017 documented as of this encounter (statuses as of 02/02/2022) [facility] Narrative* Problem Noted Date Resolved Date Pancreatic cyst 10/25/2021 10/25/2021 Overview: Dehiscence of incision 09/18/2009 1 Surgical wound infection 09/18/2009 019 Malignant neoplasm of kidney excluding renal pel vis 11/21/2008 06/25/2015 Urinary complications 03/21/2008 11/19/2015 Acute kidney failure, unspecified 03/21/2008 01/17/2017 documented as of this encounter (statuses as of 03/04/2022) [place] [address]-11-2022 History of Past illness Narrative* Problem Noted Date Resolved Date Pancreatic cyst 10/25/2021 10/25/2021 Overview: Dehiscence of incision 09/18/2009 1 Surgical wound infection 09/18/2009 019 Malignant neoplasm of kidney excluding renal pel vis 11/21/2008 06/25/2015 Urinary complications 03/21/2008 11/19/2015 Acute kidney failure, unspecified 03/21/2008 01/17/2017 documented as of this encounter (statuses as of 03/05/2022) [facility] Narrative* Problem Noted Date Resolved Date Pancreatic cyst 10/25/2021 10/25/2021 Overview: Dehiscence of incision 09/18/2009 1 Surgical wound infection 09/18/2009 019 Malignant neoplasm of kidney excluding renal pel vis 11/21/2008 06/25/2015 Urinary complications 03/21/2008 11/19/2015 Acute kidney failure, unspecified 03/21/2008 01/17/2017 documented as of this encounter (statuses as of 03/23/2022) [facility] Narrative* Problem Noted Date Resolved Date Pancreatic cyst 10/25/2021 10/25/2021 Overview: Dehiscence of incision 09/18/2009 1 Surgical wound infection 09/18/2009 019 Malignant neoplasm of kidney excluding renal pel vis 11/21/2008 06/25/2015 Urinary complications 03/21/2008 11/19/2015 Acute kidney failure, unspecified 03/21/2008 01/17/2017 documented as of this encounter (statuses as of 04/15/2022) [facility] Narrative* Problem Noted Date Resolved Date Pancreatic cyst 10/25/2021 10/25/2021 Overview: Dehiscence of incision 09/18/2009 1 Surgical wound infection 09/18/2009 019 Malignant neoplasm of kidney excluding renal pel vis 11/21/2008 06/25/2015 Urinary complications 03/21/2008 11/19/2015 Acute kidney failure, unspecified 03/21/2008 01/17/2017 documented as of this encounter (statuses as of 04/30/2022) [facility] Narrative* Problem Noted Date Resolved Date Pancreatic cyst 10/25/2021 10/25/2021 Overview: Dehiscence of incision 09/18/2009 1 Surgical wound infection 09/18/2009 019 Malignant neoplasm of kidney excluding renal pel vis 11/21/2008 06/25/2015 Urinary complications 03/21/2008 11/19/2015 Acute kidney failure, unspecified 03/21/2008 01/17/2017 documented as of this encounter (statuses as of 05/17/2022) [facility] Narrative* Problem Noted Date Resolved Date Pancreatic cyst 10/25/2021 10/25/2021 Overview: Dehiscence of incision 09/18/2009 1 Surgical wound infection 09/18/2009 019 Malignant neoplasm of kidney excluding renal pel vis 11/21/2008 06/25/2015 Urinary complications 03/21/2008 11/19/2015 Acute kidney failure, unspecified 03/21/2008 01/17/2017 documented as of this encounter (statuses as of 05/21/2022) [facility] Narrative* Problem Noted Date Resolved Date Pancreatic cyst 10/25/2021 10/25/2021 Overview: Dehiscence of incision 09/18/2009 1 Surgical wound infection 09/18/2009 019 Malignant neoplasm of kidney excluding renal pel vis 11/21/2008 06/25/2015 Urinary complications 03/21/2008 11/19/2015 Acute kidney failure, unspecified 03/21/2008 01/17/2017 documented as of this encounter (statuses as of 05/21/2022) [facility] Narrative* Problem Noted Date Resolved Date Pancreatic cyst 10/25/2021 10/25/2021 Overview: Dehiscence of incision 09/18/2009 1 Surgical wound infection 09/18/2009 019 Malignant neoplasm of kidney excluding renal pel vis 11/21/2008 06/25/2015 Urinary complications 03/21/2008 11/19/2015 Acute kidney failure, unspecified 03/21/2008 01/17/2017 documented as of this encounter (statuses as of 05/25/2022) [facility] Narrative* Problem Noted Date Resolved Date Pancreatic cyst 10/25/2021 10/25/2021 Overview: Dehiscence of incision 09/18/2009 1 Surgical wound infection 09/18/2009 019 Malignant neoplasm of kidney excluding renal pel vis 11/21/2008 06/25/2015 Urinary complications 03/21/2008 11/19/2015 Acute kidney failure, unspecified 03/21/2008 01/17/2017 documented as of this encounter (statuses as of 05/28/2022) [facility] Narrative* Problem Noted Date Resolved Date Pancreatic cyst 10/25/2021 10/25/2021 Overview: Dehiscence of incision 09/18/2009 1 Surgical wound infection 09/18/2009 019 Malignant neoplasm of kidney excluding renal pel vis 11/21/2008 06/25/2015 Urinary complications 03/21/2008 11/19/2015 Acute kidney failure, unspecified 03/21/2008 01/17/2017 documented as of this encounter (statuses as of 05/28/2022) [facility] Narrative* Problem Noted Date Resolved Date Pancreatic cyst 10/25/2021 10/25/2021 Overview: Dehiscence of incision 09/18/2009 1 Surgical wound infection 09/18/2009 019 Malignant neoplasm of kidney excluding renal pel vis 11/21/2008 06/25/2015 Urinary complications 03/21/2008 11/19/2015 Acute kidney failure, unspecified 03/21/2008 01/17/2017 documented as of this encounter (statuses as of 05/28/2022) [facility] Narrative* Problem Noted Date Resolved Date Pancreatic cyst 10/25/2021 10/25/2021 Overview: Dehiscence of incision 09/18/2009 1 Surgical wound infection 09/18/2009 019 Malignant neoplasm of kidney excluding renal pel vis 11/21/2008 06/25/2015 Urinary complications 03/21/2008 11/19/2015 Acute kidney failure, unspecified 03/21/2008 01/17/2017 documented as of this encounter (statuses as of 06/15/2022) [facility] Narrative* Problem Noted Date Resolved Date Pancreatic cyst 10/25/2021 10/25/2021 Overview: Dehiscence of incision 09/18/2009 1 Surgical wound infection 09/18/2009 019 Malignant neoplasm of kidney excluding renal pel vis 11/21/2008 06/25/2015 Urinary complications 03/21/2008 11/19/2015 Acute kidney failure, unspecified 03/21/2008 01/17/2017 documented as of this encounter (statuses as of 06/28/2022) [facility] Narrative* Problem Noted Date Resolved Date Pancreatic cyst 10/25/2021 10/25/2021 Overview: Dehiscence of incision 09/18/2009 1 Surgical wound infection 09/18/2009 019 Malignant neoplasm of kidney excluding renal pel vis 11/21/2008 06/25/2015 Urinary complications 03/21/2008 11/19/2015 Acute kidney failure, unspecified 03/21/2008 01/17/2017 documented as of this encounter (statuses as of 06/30/2022) [facility] Narrative* Problem Noted Date Resolved Date Pancreatic cyst 10/25/2021 10/25/2021 Overview: Dehiscence of incision 09/18/2009 1 Surgical wound infection 09/18/2009 019 Malignant neoplasm of kidney excluding renal pel vis 11/21/2008 06/25/2015 Urinary complications 03/21/2008 11/19/2015 Acute kidney failure, unspecified 03/21/2008 01/17/2017 documented as of this encounter (statuses as of 07/23/2022) [facility] Narrative* Problem Noted Date Resolved Date Pancreatic cyst 10/25/2021 10/25/2021 Overview: Dehiscence of incision 09/18/2009 1 Surgical wound infection 09/18/2009 019 Malignant neoplasm of kidney excluding renal pel vis 11/21/2008 06/25/2015 Urinary complications 03/21/2008 11/19/2015 Acute kidney failure, unspecified 03/21/2008 01/17/2017 documented as of this encounter (statuses as of 07/12/2022) [facility]arrative* Problem Noted Date Resolved Date Pancreatic cyst 10/25/2021 10/25/2021 Overview: Dehiscence of incision 09/18/2009 1 Surgical wound infection 09/18/2009 019 Malignant neoplasm of kidney excluding renal pel vis 11/21/2008 06/25/2015 Urinary complications 03/21/2008 11/19/2015 Acute kidney failure, unspecified 03/21/2008 01/17/2017 documented as of this encounter (statuses as of 07/21/2022) [facility]arrative* Problem Noted Date Resolved Date Pancreatic cyst 10/25/2021 10/25/2021 Overview: Dehiscence of incision 09/18/2009 1 Surgical wound infection 09/18/2009 019 Malignant neoplasm of kidney excluding renal pel vis 11/21/2008 06/25/2015 Urinary complications 03/21/2008 11/19/2015 Acute kidney failure, unspecified 03/21/2008 01/17/2017 documented as of this encounter (statuses as of 07/29/2022) [facility]arrative* Problem Noted Date Resolved Date Pancreatic cyst 10/25/2021 10/25/2021 Overview: Dehiscence of incision 09/18/2009 1 Surgical wound infection 09/18/2009 019 Malignant neoplasm of kidney excluding renal pel vis 11/21/2008 06/25/2015 Urinary complications 03/21/2008 11/19/2015 Acute kidney failure, unspecified 03/21/2008 01/17/2017 documented as of this encounter (statuses as of 08/06/2022) [facility]arrative* Problem Noted Date Resolved Date Pancreatic cyst 10/25/2021 10/25/2021 Overview: Dehiscence of incision 09/18/2009 1 Surgical wound infection 09/18/2009 019 Malignant neoplasm of kidney excluding renal pel vis 11/21/2008 06/25/2015 Urinary complications 03/21/2008 11/19/2015 Acute kidney failure, unspecified 03/21/2008 01/17/2017 documented as of this encounter (statuses as of 08/11/2022) [facility]arrative* Problem Noted Date Resolved Date Pancreatic cyst 10/25/2021 10/25/2021 Overview: Dehiscence of incision 09/18/2009 1 Surgical wound infection 09/18/2009 019 Malignant neoplasm of kidney excluding renal pel vis 11/21/2008 06/25/2015 Urinary complications 03/21/2008 11/19/2015 Acute kidney failure, unspecified 03/21/2008 01/17/2017 documented as of this encounter (statuses as of 08/15/2022) [facility]arrative* Problem Noted Date Resolved Date Pancreatic cyst 10/25/2021 10/25/2021 Overview: Dehiscence of incision 09/18/2009 Surgical wound infection 09/18/2009 019 Malignant neoplasm of kidney excluding renal pel vis 11/21/2008 06/25/2015 Urinary complications 03/21/2008 11/19/2015 Acute kidney failure, unspecified 03/21/2008 01/17/2017 documented as of this encounter (statuses as of 08/20/2022) [facility]arrative* Problem Noted Date Diagnosed Date Resolved Date Pancreatic cyst 10/25/2021 10/25/2021 Overview: Dehiscence of incision 09/18/200908/29 Surgical wound infection 09/18/2009 Malignant neoplasm of kidney excluding renal pelvis 11/21/2008 06/25/2015 Urinary complications 03/21/20082015 Acute kidney failure, unspecified 03/21/2008 01/17/2017 documented as of this encounter (statuses as of 09/15/2022) [facility]arr[facility]* Problem Noted Date Diagnosed Date Resolved Date Pancreatic cyst 10/25/2021 10/25/2021 Overview: Dehiscence of incision 09/18/200908/29 Surgical wound infection 09/18/2009 Malignant neoplasm of kidney excluding renal pelvis 11/21/2008 06/25/2015 Urinary complications 03/21/20082015 Acute kidney failure, unspecified 03/21/2008 01/17/2017 documented as of this encounter (statuses as of 10/01/2022) [facility] History of Past illness Narrative* Problem Noted Date Diagnosed Date Resolved Date Pancreatic cyst 10/25/2021 10/25/2021 Overview: Dehiscence of incision 09/18/200908/29 Surgical wound infection 09/18/2009 Malignant neoplasm of kidney excluding renal pelvis 11/21/2008 06/25/2015 Urinary complications 03/21/20082015 Acute kidney failure, unspecified 03/21/2008 01/17/2017 documented as of this encounter (statuses as of 10/06/2022) [facility] History of Past illness Narrative* Problem Noted Date Diagnosed Date Resolved Date Pancreatic cyst 10/25/2021 10/25/2021 Overview: Dehiscence of incision 09/18/200908/29 Surgical wound infection 09/18/2009 Malignant neoplasm of kidney excluding renal pelvis 11/21/2008 06/25/2015 Urinary complications 03/21/20082015 Acute kidney failure, unspecified 03/21/2008 01/17/2017 documented as of this encounter (statuses as of 10/13/2022) [facility] History of Past illness Narrative* Problem Noted Date Diagnosed Date Resolved Date Pancreatic cyst 10/25/2021 10/25/2021 Overview: Dehiscence of incision 09/18/200908/29 Surgical wound infection 09/18/2009 Malignant neoplasm of kidney excluding renal pelvis 11/21/2008 06/25/2015 Urinary complications 03/21/20082015 Acute kidney failure, unspecified 03/21/2008 01/17/2017 documented as of this encounter (statuses as of 11/05/2022) [facility] History of Past illness Narrative* Problem Noted Date Diagnosed Date Resolved Date Pancreatic cyst 10/25/2021 10/25/2021 Overview: Dehiscence of incision 09/18/200908/29 Surgical wound infection 09/18/2009 Malignant neoplasm of kidney excluding renal pelvis 11/21/2008 06/25/2015 Urinary complications 03/21/20082015 Acute kidney failure, unspecified 03/21/2008 01/17/2017 documented as of this encounter (statuses as of 11/27/2022) [facility] History of Past illness Narrative* Problem Noted Date Diagnosed Date Resolved Date Pancreatic cyst 10/25/2021 10/25/2021 Overview: Dehiscence of incision 09/18/200908/29 Surgical wound infection 09/18/2009 Malignant neoplasm of kidney excluding renal pelvis 11/21/2008 06/25/2015 Urinary complications 03/21/20082015 Acute kidney failure, unspecified 03/21/2008 01/17/2017 documented as of this encounter (statuses as of 11/28/2022) [facility] History of Past illness Narrative* Problem Noted Date Diagnosed Date Resolved Date Pancreatic cyst 10/25/2021 10/25/2021 Overview: Dehiscence of incision 09/18/200908/29 Surgical wound infection 09/18/2009 Malignant neoplasm of kidney excluding renal pelvis 11/21/2008 06/25/2015 Urinary complications 03/21/20082015 Acute kidney failure, unspecified 03/21/2008 01/17/2017 documented as of this encounter (statuses as of 12/19/2022) [facility] of Past illness Narrative* Problem Noted Date Diagnosed Date Resolved Date Pancreatic cyst 10/25/2021 10/25/2021 Overview: Dehiscence of incision 09/18/200908/29 Surgical wound infection 09/18/2009 Malignant neoplasm of kidney excluding renal pelvis 11/21/2008 06/25/2015 Urinary complications 03/21/20082015 Acute kidney failure, unspecified 03/21/2008 01/17/2017 documented as of this encounter (statuses as of 12/27/2022) [facility] History of Past illness Narrative* Problem Noted Date Diagnosed Date Resolved Date Pancreatic cyst 10/25/2021 10/25/2021 Overview: Dehiscence of incision 09/18/200908/29 Surgical wound infection 09/18/2009 Malignant neoplasm of kidney excluding renal pelvis 11/21/2008 06/25/2015 Urinary complications 03/21/20082015 Acute kidney failure, unspecified 03/21/2008 01/17/2017 documented as of this encounter (statuses as of 01/18/2023) [facility] of Past illness Narrative* Problem Noted Date Diagnosed Date Resolved Date Pancreatic cyst 10/25/2021 10/25/2021 Overview: Dehiscence of incision 09/18/200908/29 Surgical wound infection 09/18/2009 Malignant neoplasm of kidney excluding renal pelvis 11/21/2008 06/25/2015 Urinary complications 03/21/20082015 Acute kidney failure, unspecified 03/21/2008 01/17/2017 documented as of this encounter (statuses as of 01/29/2023) [facility] History of Past illness Narrative* Problem Noted Date Diagnosed Date Resolved Date Pancreatic cyst 10/25/2021 10/25/2021 Overview: Dehiscence of incision 09/18/200908/29 Surgical wound infection 09/18/2009 Malignant neoplasm of kidney excluding renal pelvis 11/21/2008 06/25/2015 Urinary complications 03/21/20082015 Acute kidney failure, unspecified 03/21/2008 01/17/2017 documented as of this encounter (statuses as of 03/25/2023) [facility] History of Past illness Narrative* Problem Noted Date Diagnosed Date Resolved Date Pancreatic cyst 10/25/2021 10/25/2021 Overview: Dehiscence of incision 09/18/200908/29 Surgical wound infection 09/18/2009 Malignant neoplasm of kidney excluding renal pelvis 11/21/2008 06/25/2015 Urinary complications 03/21/20082015 Acute kidney failure, unspecified 03/21/2008 01/17/2017 documented as of this encounter (statuses as of 04/21/2023) [facility] History of Past illness Narrative* Problem Noted Date Diagnosed Date Resolved Date Pancreatic cyst 10/25/2021 10/25/2021 Overview: Dehiscence of incision 09/18/200908/29 Surgical wound infection 09/18/2009 Malignant neoplasm of kidney excluding renal pelvis 11/21/2008 06/25/2015 Urinary complications 03/21/20082015 Acute kidney failure, unspecified 03/21/2008 01/17/2017 documented as of this encounter (statuses as of 05/17/2023) [facility] History of Past illness Narrative* Problem Noted Date Diagnosed Date Resolved Date Pancreatic cyst 10/25/2021 10/25/2021 Overview: Dehiscence of incision 09/18/200908/29 Surgical wound infection 09/18/2009 Malignant neoplasm of kidney excluding renal pelvis 11/21/2008 06/25/2015 Urinary complications 03/21/20082015 Acute kidney failure, unspecified 03/21/2008 01/17/2017 documented as of this encounter (statuses as of 05/18/2023) [facility] History of Past illness Narrative* Problem Noted Date Diagnosed Date Resolved Date Pancreatic cyst 10/25/2021 10/25/2021 Overview: Dehiscence of incision 09/18/200908/29 Surgical wound infection 09/18/2009 Malignant neoplasm of kidney excluding renal pelvis 11/21/2008 06/25/2015 Urinary complications 03/21/20082015 Acute kidney failure, unspecified 03/21/2008 01/17/2017 documented as of this encounter (statuses as of 05/23/2023) [facility] History of Past illness Narrative* Problem Noted Date Diagnosed Date Resolved Date Pancreatic cyst 10/25/2021 10/25/2021 Overview: Dehiscence of incision 09/18/200908/29 Surgical wound infection 09/18/2009 Malignant neoplasm of kidney excluding renal pelvis 11/21/2008 06/25/2015 Urinary complications 03/21/20082015 Acute kidney failure, unspecified 03/21/2008 01/17/2017 documented as of this encounter (statuses as of 05/30/2023) [address]04-2022 Miscellaneous Notes* Telephone Encounter - Mariel Love RN - 10/18/2021 3:30 PM EDT Patient calling with request for medication/refill: Patient/caregiver requesting refill of Humalog be called to [facility] pharmacy at [phone].. Patient denies any new or worsening symptoms of which a provider is not aware: Yes. Allergies reviewed: Yes ALLERGIES Allergen Reactions Morphine Itching Tetanus And Diphthe* Other: See Comments ? Reactive lymphadenopathy Toradol [Ketorolac * Heart racing and nightmares The following medications were verbally ordered by and read back to Dr. Hogan on 10/18/2021 at 3:31 PMby Mariel Love RN. Requested Prescriptions Signed Prescriptions Disp Refills insulin lispro (HUMALOG) 200 unit/mL (3 mL) injection 4 Each 2 Sig: Inject subcutaneously 66 units with breakfast, 40 units with lunch and 94 units with dinner The prescription(s) were phoned and read back to Jim Herrera at [facility]; by Mariel Love RN. Patient/Family notified: Yes Mariel Love RN [facility] encounterR[facility] Miscellaneous Notes* Telephone Encounter - Jovany Rodriguez RN - 10/16/2021 1:38 PM EDT Patient returned call and given provider's message below with verbalized understanding. Patient reports her daughter will supervisor rice milling container at lab. * Telephone Encounter - Elaine Parker LPN - 10/16/2021 11:59 AM EDT Left message to call office. * Telephone Encounter - Jovany Rizzo PA-C - 10/16/2021 7:53 AM EDT See mychart: large microalbuminuria. Please have her come into obtain container. Telephone on 10/16/21 ALBUMIN QUANT 24H UR CREAT CLEAR 24 HOUR ThanksGigi PA-C documented in this encounterR[facility]09-[facility]-2022 Miscellaneous Notes* Telephone Encounter - Elaine Parker [...] having MRI done on October 16 in [place]. She plans to come in to have lab work done that Gigi Rizzo has ordered possibly Tuesday. She is needing a copy of the BUN faxed. Patient will call back, she will get name of facility and who to send results to and fax number. documented in this encounterR[facility]08-31-2022 Miscellaneous Notes* Telephone Encounter - Elaine Parker LPN - 10/14/2021 3:47 PM EDT Spoke with Karlee and she is going to take care of this. * Telephone Encounter - Dhara Naylor RN - 10/14/2021 3:07 PM EDT Karlee with [facility] states patient has rescheduled her MRI outside of authorized insurance timeframe. Karlee reports MOY Sousa would need contacted at [phone] for insurance extensionfor MRI. For any other further questions, may call Karlee back at [phone]. Thank you. documented in this encounterR[facility]08-31-2022 Miscellaneous Notes* Telephone Encounter - Elaine Parker LPN - 10/14/2021 1:50 PM EDT Faxed as requested from [employer]. * Telephone Encounter - Ema Joseph RN - 10/09/2021 3:21 PM EDT Pts daughter called in and reports Pt is having an MRI on 10/16/21 at [facility]. She states they need to have Pts BUN and Creat faxed up to them once Pt has labs drawn next week. Please fax lab results to [phone]. documented in this encounterR[facility]08-19-2022 Miscellaneous Notes* Telephone Encounter - MARK Shaw - 10/02/2021 1:32 PM EDT CD/ reports READ[facility] FOR [facility]TERTAINMENT DANCER AT [facility] * Telephone Encounter - Tiesha Perez Pss - 10/02/2021 11:22 AM EDT Patient calling requesting CD and report of x-ray done on 10/22/20. Patient will pickup after 11:15 am on 10/05. Thank you! documented in this encounterR[facility]08-11-2022 History of Present illness Narrative* M David Rizzo PA-C - 09/24/2021 8:00 AM EDT MyChart video visit was used for evaluation of this patient. Location of patient: [place] Patient was offered a virtual/telemedicine appointment in [...] <2.54 0.63 1.36 Pvd (peripheral vascular disease) ([facility]) Current medications: ASA 81 mg daily 01/15/2022 PVR RABI 1.00, LABI 0.95 Chronic hypoxemic respiratory failure ([facility]) Chronic obstructive pulmonary disease, unspecified copd type ([facility]) Obstructive sleep apnea syndrome Lung nodules Current medications: O2 2 L/min nasal cannula continuous CPAP 11 cm with 20-minute ramp and humidification Car Cooper: Dr. Bernard. Interval history: 07/16/2021 last visit [...] complication, with long-term current use of insulin ([facility]) Current medications: Lispro 200 unit: 66 units [...] Lymph 1.00 - 4.00 k/uL 3.76 2.35 [place]% % 5.1 5.0 Abs [place] <0.87 k/uL 0.73 0.59 Eosin% % 2.6 [...] HISTORY Diagnosis Date Chronic hypoxemic respiratory failure ([facility]) 07/16/2021 Due to morbid obesity. COPD (chronic obstructive pulmonary disease) ([facility]) with chronic hypoxemic respiratory failure; on oxygen 2 liters continuously Degenerative disc disease Depression Diabetes mellitus type II Dyslipidemia Hypertension IBS (irritable bowel syndrome) Microalbuminuria on adwoa inhibitor Obesity Palpitations Panic disorder Renal calculus Renal cell carcinoma of right kidney ([facility]) 2009 S/P partial right nephrectomy [...] units with dinner 15 Pen 0 Insulin [place], Disposable, (ULTICARE PEN NEEDLE) 29 gauge x [...] 6 mL 4 flash glucose sensor (FREESTYLE TERRELL 14 DAY [...] Type 2 DM - Uncontrolled E11.65 Insulin: [id number] Each 11 CPAP 11 cm via nasal [...] call Jovany Rizzo PA-C documented in this encounterRiverside [facility]08-04-2022 Miscellaneous Notes* Telephone Encounter - Yesenia Blanco [...] Not applicable Please advise. Thank you. Yesenia Balnco LPN documented in this encounterRiverside [facility] Hospital07-25-2022 Miscellaneous Notes* Telephone Encounter - MARK Shaw - 09/07/2021 1:30 PM EDT Mailed * Telephone Encounter - Bhargavi Groves - 09/02/2021 4:52 PM EDT Pt calling to request disc of her CT done last October (10/22) be mailed to her doctors office as she can not come in to get it. Please mail to: ATTN: PAT [address] [place] [address] documented in this encounterRiverside [facility] Hospital07-25-2022 Miscellaneous Notes* Telephone Encounter - Rich Irby [...] AT NOON. PLEASE CALL IN TODAY Gayle Edwardsse documented in this encounterRiverside [facility] Hospital07-15-2022 Miscellaneous Notes* Telephone Encounter - Patti Panda Ma - 08/28/2021 8:15 AM EDT Patient was notified that Tresiba is approved until 07/2022 Faxed approval information to [facility] Patti Panda Ma * Telephone Encounter - Yesenia Blanco LPN - 08/28/2021 8:04 AM EDT Pt called and states she spoke with her pharmacy yesterday and [facility] today and they are both telling her [...] medication. Yesenia Blanco LPN documented in this encounterRiverside [facility] Hospital06-28-2022 Miscellaneous Notes* Telephone Encounter - Patti Panda Ma - 08/11/2021 8:56 AM EDT Tresiba Approved and patient notified via voicemail Patti Panda Ma * Telephone Encounter - Marlen Nixon LPN - 08/06/2021 11:36 AM EDT Electronic PA requested for tresiba. documented in this encounterRiverside [facility] Hospital06-22-2022 Miscellaneous Notes* Telephone Encounter - Pilar Pendleton Pss - 08/05/2021 3:52 PM EDT Patient is currently out of her humalog, needs for tonight. Please call in to the [facility] pharmacy on file and notify patient when [...] advise. Pilar Pendleton Pss documented in this encounterRiverside [facility] Hospital06-08-2022 Miscellaneous Notes* Telephone Encounter - Rich Irby [...] you. Marcy Pandya, RN documented in this encounterRiverside [facility] Hospital05-31-2022 Miscellaneous Notes* Telephone Encounter - Mat Davidson RPh - 07/14/2021 3:54 PM EDT Attempted to call patient for today's scheduled pharmacy phone follow up. Not able to reach after several attempts. Attempted to reach patient at listed numbers [phone] ([facility]), and [phone]. On third attempt, patient's spouse answers phone to state patient is not available at this time. Instructed to return call to reschedule visit. He verbalized understanding. Zara JungD Primary Care Clinical Pharmacist [facility] documented in this encounterRiverside [facility] Hospital05-27-2022 History of Present illness Narrative* Jovany Rizzo PA-C - 07/10/2021 1:48 PM EDT [facility] for evaluation of this patient. Location of patient: [place] Patient was offered a virtual/telemedicine appointment in [...] Type 2 DM - Uncontrolled E11.65 Insulin: [id number] Each 11 Insulin [place], Disposable, (ULTICARE PEN NEEDLE) 29 gauge x [...] PM Jovany Rizzo PA-C documented in this encounterRiverside Methodist Hospital05-10-2022 Miscellaneous Notes* Telephone Encounter - Becky Jimenez [...] help her relax. Please advise patient. PH: [phone]. Thank you. documented in this encounterRiverside [facility] Hospital05-10-2022 History of Present illness Narrative* Mat Davidson, [facility] - 06/23/2021 2:30 PM EDT Primary [...] Lunch: leftovers from supper Dinner: lasagne, pasta, wallisian rice, hot dogs and hamburgers, pork steaks, [...] mg subcutaneously one time a week. Insulin [place], Disposable, (ULTICARE PEN NEEDLE) 29 gauge x [...] complication, with long-term current use of insulin ([facility]) - ICD9: 250.00, V58.67, ICD10: [...] Patient verbalized understanding of instructions. Mat Davidson, Arie, BCACP Primary Care Clinical Pharmacist [facility] The majority of the pharmacy visit (> 50%) was spent counseling and/or coordinating care for thepatient. [Telephonic] time was 18 minutes. documented in this encounterRiverside Methodist Hospital05-05-2022 Miscellaneous Notes* Telephone Encounter - Nika Watters MA - 06/18/2021 8:51 AM EDT Daughter notified. * Telephone Encounter - Samson Hogan MD - 06/18/2021 8:36 AM EDT Cholesterol was good. It looks like only part of the labs were done due to epic change. Needs at least a1c as well. documented in this encounterRiverside Methodist Hospital04-27-2022 Miscellaneous Notes* Telephone Encounter - Samson Hogan MD - 06/10/2021 2:17 PM EDT Placed * Telephone Encounter - Marcy Pandya RN - 06/10/2021 12:23 PM EDT Patient calling with request for new order MRI abdomen (MRI Liver WO/WIVCON). She came to [facility] on 05/29 to have it done but became claustrophobic and it was cancelled. She says she can go to [place] where they have a bigger MRI machine. Marcy Pandya RN documented in this encounterRiverside Methodist Hospital04-21-2022 Miscellaneous Notes* Telephone Encounter - Yesenia Blacno LPN - 06/04/2021 4:57 PM EDT Spoke [...] Center. Yesenia Blanco LPN documented in this encounterRiverside Methodist Hospital04-19-2022 History of Present illness Narrative* Mat Davidson, [facility] - 06/02/2021 1:00 PM EDT Primary [...] Lunch: leftovers from supper Dinner: lasagne, pasta, wallisian rice, hot dogs and hamburgers, pork steaks, [...] Inject 88 Units subcutaneously twice daily. Insulin [place], Disposable, (ULTICARE PEN NEEDLE) 29 gauge x [...] TG 343 03/24/2020 The ASCVD Risk score ([place] KIMO Jr., et al., 2013) failed to calculate for the following reasons: The valid total cholesterol range is 130 to 320 mg/dL Albumin/Creat Ratio (mg/g) Date Value 03/24/2020 937 (H) PHARMACOTHERAPY ASSESSMENT/PLAN: 1. Type 2 diabetes mellitus without complication, with long-term current use of insulin ([facility]) - ICD9: 250.00, V58.67, ICD10: [...] 06/23/21. Patient verbalized understanding of instructions. Mat Davidsno PharmD, [facility]ENTERCP Primary Care Clinical Pharmacist [facility] The majority of the pharmacy visit (> 50%) was spent counseling and/or coordinating care for thepatient. [Telephonic] time was 23 minutes. documented in this encounterRiverside Methodist Hospital04-15-2022 Miscellaneous Notes* Telephone Encounter - Izabella Haas [...] you. Izabella Haas LPN documented in this encounterEric Ville [address]-15-2022 Miscellaneous Notes* Telephone Encounter - Elaine Parekr LPN - 05/29/2021 10:18 AM EDT Patient here to have labs completed and needs updated labs from remote use only labs. No need to contact can close after orders filed. documented in this encounterRiverside [facility] Hospital12-07-2020 History of Present illness Narrative* Mecca Medina (Rt)Chris - 01/21/2020 9:00 AM EST Radiology Service [...] 21, 2020 9:37 AM documented in this encounterRiverside [facility] Hospital08-05-2010 History of Past illness Narrative* Problem Noted Date Resolved Date Dehiscence of incision 09/18/2009 1 Surgical wound infection 09/18/2009 019 Malignant neoplasm of kidney excluding renal pel vis 11/21/2008 06/25/2015 Urinary complications 03/21/2008 11/19/2015 Acute kidney failure, unspecified 03/21/2008 01/17/2017 documented as of this encounter (statuses as of 05/29/2021) [facility] of [facility] illness Narrative* Problem Noted Date Resolved Date Dehiscence of incision 09/18/2009 1 Surgical wound infection 09/18/2009 019 Malignant neoplasm of kidney excluding renal pel vis 11/21/2008 06/25/2015 Urinary complications 03/21/2008 11/19/2015 Acute kidney failure, unspecified 03/21/2008 01/17/2017 documented as of this encounter (statuses as of 05/29/2021) [facility] of [facility] illness Narrative* Problem Noted Date Resolved Date Dehiscence of incision 09/18/2009 1 Surgical wound infection 09/18/2009 019 Malignant neoplasm of kidney excluding renal pel vis 11/21/2008 06/25/2015 Urinary complications 03/21/2008 11/19/2015 Acute kidney failure, unspecified 03/21/2008 01/17/2017 documented as of this encounter (statuses as of 05/30/2021) [facility] Narrative* Problem Noted Date Resolved Date Dehiscence of incision 09/18/2009 1 Surgical wound infection 09/18/2009 019 Malignant neoplasm of kidney excluding renal pel vis 11/21/2008 06/25/2015 Urinary complications 03/21/2008 11/19/2015 Acute kidney failure, unspecified 03/21/2008 01/17/2017 documented as of this encounter (statuses as of 06/04/2021) [facility] Narrative* Problem Noted Date Resolved Date Dehiscence of incision 09/18/2009 1 Surgical wound infection 09/18/2009 019 Malignant neoplasm of kidney excluding renal pel vis 11/21/2008 06/25/2015 Urinary complications 03/21/2008 11/19/2015 Acute kidney failure, unspecified 03/21/2008 01/17/2017 documented as of this encounter (statuses as of 06/10/2021) [facility] Narrative* Problem Noted Date Resolved Date Dehiscence of incision 09/18/2009 1 Surgical wound infection 09/18/2009 019 Malignant neoplasm of kidney excluding renal pel vis 11/21/2008 06/25/2015 Urinary complications 03/21/2008 11/19/2015 Acute kidney failure, unspecified 03/21/2008 01/17/2017 documented as of this encounter (statuses as of 06/14/2021) [facility] Narrative* Problem Noted Date Resolved Date Dehiscence of incision 09/18/2009 1 Surgical wound infection 09/18/2009 019 Malignant neoplasm of kidney excluding renal pel vis 11/21/2008 06/25/2015 Urinary complications 03/21/2008 11/19/2015 Acute kidney failure, unspecified 03/21/2008 01/17/2017 documented as of this encounter (statuses as of 06/18/2021) [facility] Narrative* Problem Noted Date Resolved Date Dehiscence of incision 09/18/2009 1 Surgical wound infection 09/18/2009 019 Malignant neoplasm of kidney excluding renal pel vis 11/21/2008 06/25/2015 Urinary complications 03/21/2008 11/19/2015 Acute kidney failure, unspecified 03/21/2008 01/17/2017 documented as of this encounter (statuses as of 06/23/2021) [facility] Narrative* Problem Noted Date Resolved Date Dehiscence of incision 09/18/2009 1 Surgical wound infection 09/18/2009 019 Malignant neoplasm of kidney excluding renal pel vis 11/21/2008 06/25/2015 Urinary complications 03/21/2008 11/19/2015 Acute kidney failure, unspecified 03/21/2008 01/17/2017 documented as of this encounter (statuses as of 06/24/2021) [facility] Narrative* Problem Noted Date Resolved Date Dehiscence of incision 09/18/2009 1 Surgical wound infection 09/18/2009 019 Malignant neoplasm of kidney excluding renal pel vis 11/21/2008 06/25/2015 Urinary complications 03/21/2008 11/19/2015 Acute kidney failure, unspecified 03/21/2008 01/17/2017 documented as of this encounter (statuses as of 07/10/2021) [facility]08-05-2010 History of Past illness Narrative* Problem Noted Date Resolved Date Dehiscence of incision 09/18/2009 1 Surgical wound infection 09/18/2009 019 Malignant neoplasm of kidney excluding renal pel vis 11/21/2008 06/25/2015 Urinary complications 03/21/2008 11/19/2015 Acute kidney failure, unspecified 03/21/2008 01/17/2017 documented as of this encounter (statuses as of 07/24/2021) [facility]08-[facility]2010 History of Past illness Narrative* Problem Noted Date Resolved Date Dehiscence of incision 09/18/2009 1 Surgical wound infection 09/18/2009 019 Malignant neoplasm of kidney excluding renal pel vis 11/21/2008 06/25/2015 Urinary complications 03/21/2008 11/19/2015 Acute kidney failure, unspecified 03/21/2008 01/17/2017 documented as of this encounter (statuses as of 07/29/2021) [facility]2010 History of Past illness Narrative* Problem Noted Date Resolved Date Dehiscence of incision 09/18/2009 1 Surgical wound infection 09/18/2009 019 Malignant neoplasm of kidney excluding renal pel vis 11/21/2008 06/25/2015 Urinary complications 03/21/2008 11/19/2015 Acute kidney failure, unspecified 03/21/2008 01/17/2017 documented as of this encounter (statuses as of 08/05/2021) [facility] History of Past illness Narrative* Problem Noted Date Resolved Date Dehiscence of incision 09/18/2009 1 Surgical wound infection 09/18/2009 019 Malignant neoplasm of kidney excluding renal pel vis 11/21/2008 06/25/2015 Urinary complications 03/21/2008 11/19/2015 Acute kidney failure, unspecified 03/21/2008 01/17/2017 documented as of this encounter (statuses as of 08/10/2021) [facility] History of Past illness Narrative* Problem Noted Date Resolved Date Dehiscence of incision 09/18/2009 1 Surgical wound infection 09/18/2009 019 Malignant neoplasm of kidney excluding renal pel vis 11/21/2008 06/25/2015 Urinary complications 03/21/2008 11/19/2015 Acute kidney failure, unspecified 03/21/2008 01/17/2017 documented as of this encounter (statuses as of 08/11/2021) [facility] History of Past illness Narrative* Problem Noted Date Resolved Date Dehiscence of incision 09/18/2009 1 Surgical wound infection 09/18/2009 019 Malignant neoplasm of kidney excluding renal pel vis 11/21/2008 06/25/2015 Urinary complications 03/21/2008 11/19/2015 Acute kidney failure, unspecified 03/21/2008 01/17/2017 documented as of this encounter (statuses as of 08/13/2021) [facility] History of Past illness Narrative* Problem Noted Date Resolved Date Dehiscence of incision 09/18/2009 1 Surgical wound infection 09/18/2009 019 Malignant neoplasm of kidney excluding renal pel vis 11/21/2008 06/25/2015 Urinary complications 03/21/2008 11/19/2015 Acute kidney failure, unspecified 03/21/2008 01/17/2017 documented as of this encounter (statuses as of 08/28/2021) [facility] History of Past illness Narrative* Problem Noted Date Resolved Date Dehiscence of incision 09/18/2009 1 Surgical wound infection 09/18/2009 019 Malignant neoplasm of kidney excluding renal pel vis 11/21/2008 06/25/2015 Urinary complications 03/21/2008 11/19/2015 Acute kidney failure, unspecified 03/21/2008 01/17/2017 documented as of this encounter (statuses as of 09/07/2021) [facility] History of Past illness Narrative* Problem Noted Date Resolved Date Dehiscence of incision 09/18/2009 1 Surgical wound infection 09/18/2009 019 Malignant neoplasm of kidney excluding renal pel vis 11/21/2008 06/25/2015 Urinary complications 03/21/2008 11/19/2015 Acute kidney failure, unspecified 03/21/2008 01/17/2017 documented as of this encounter (statuses as of 09/07/2021) [facility] History of Past illness Narrative* Problem Noted Date Resolved Date Dehiscence of incision 09/18/2009 1 Surgical wound infection 09/18/2009 019 Malignant neoplasm of kidney excluding renal pel vis 11/21/2008 06/25/2015 Urinary complications 03/21/2008 11/19/2015 Acute kidney failure, unspecified 03/21/2008 01/17/2017 documented as of this encounter (statuses as of 09/17/2021) [facility] History of Past illness Narrative* Problem Noted Date Resolved Date Dehiscence of incision 09/18/2009 1 Surgical wound infection 09/18/2009 019 Malignant neoplasm of kidney excluding renal pel vis 11/21/2008 06/25/2015 Urinary complications 03/21/2008 11/19/2015 Acute kidney failure, unspecified 03/21/2008 01/17/2017 documented as of this encounter (statuses as of 09/24/2021) [facility] History of Past illness Narrative* Problem Noted Date Resolved Date Dehiscence of incision 09/18/2009 1 Surgical wound infection 09/18/2009 019 Malignant neoplasm of kidney excluding renal pel vis 11/21/2008 06/25/2015 Urinary complications 03/21/2008 11/19/2015 Acute kidney failure, unspecified 03/21/2008 01/17/2017 documented as of this encounter (statuses as of 10/02/2021) [facility] History of Past illness Narrative* Problem Noted Date Resolved Date Dehiscence of incision 09/18/2009 1 Surgical wound infection 09/18/2009 019 Malignant neoplasm of kidney excluding renal pel vis 11/21/2008 06/25/2015 Urinary complications 03/21/2008 11/19/2015 Acute kidney failure, unspecified 03/21/2008 01/17/2017 documented as of this encounter (statuses as of 10/14/2021) [facility] History of Past illness Narrative* Problem Noted Date Resolved Date Dehiscence of incision 09/18/2009 1 Surgical wound infection 09/18/2009 019 Malignant neoplasm of kidney excluding renal pel vis 11/21/2008 06/25/2015 Urinary complications 03/21/2008 11/19/2015 Acute kidney failure, unspecified 03/21/2008 01/17/2017 documented as of this encounter (statuses as of 10/15/2021) [facility] History of Past illness Narrative* Problem Noted Date Resolved Date Dehiscence of incision 09/18/2009 1 Surgical wound infection 09/18/2009 019 Malignant neoplasm of kidney excluding renal pel vis 11/21/2008 06/25/2015 Urinary complications 03/21/2008 11/19/2015 Acute kidney failure, unspecified 03/21/2008 01/17/2017 documented as of this encounter (statuses as of 10/16/2021) [facility] History of Past illness Narrative* Problem Noted Date Resolved Date Dehiscence of incision 09/18/2009 1 Surgical wound infection 09/18/2009 019 Malignant neoplasm of kidney excluding renal pel vis 11/21/2008 06/25/2015 Urinary complications 03/21/2008 11/19/2015 Acute kidney failure, unspecified 03/21/2008 01/17/2017 documented as of this encounter (statuses as of 10/18/2021) [facility] note* Diagnosis Type 2 diabetes mellitus without complication, with long-term current use of insulin (HCC)- Primary Mixed hyperlipidemia Primary hypertension Unspecified essential hypertension Essential hypertension Unspecified essential hypertension [facility] Diagnosis Anxiety Anxiety state, unspecified Essential hypertension Unspecified essential hypertension Hypokalemia Hypopotassemia [facility] Diagnosis Liver mass Unspecified disorder of liver [facility] Diagnosis SOB (shortness of breath)- Primary Shortness of breath [facility] Diagnosis Liver mass- Primary Unspecified disorder of liver [facility]* Diagnosis Type 2 diabetes mellitus without complication, with long-term current use of insulin (HCC)- Primary [facility] Diagnosis Type 2 diabetes mellitus without complication, with long-term current use of insulin (HCC)- Primary [facility] Diagnosis Anxiety- Primary Anxiety state, unspecified [facility] Diagnosis Type 2 diabetes mellitus without complication, with long-term current use of insulin (HCC)- Primary [facility] Diagnosis Acute maxillary sinusitis, recurrence not specified- Primary [facility]* Diagnosis Type 2 diabetes mellitus without complication, with long-term current use of insulin ([facility]) [facility] Diagnosis Encounter for screening mammogram for breast cancer [facility]* Diagnosis DDD (degenerative disc disease), lumbar Degeneration of lumbar or lumbosacral intervertebral disc [facility] Diagnosis Primary hypertension- Primary Unspecified essential [...] of the cervix [facility] Diagnosis Uncontrolled type 2 diabetes mellitus with hyperglycemia (HCC)- Primary [facility]* Diagnosis Microalbuminuria- Primary Proteinuria [facility] Diagnosis Type 2 diabetes mellitus without complication, with long-term current use of insulin (HCC) [facility] Diagnosis gallbladder duct cyst- Primary Other specified disorders of liver Staghorn renal calculus Calculus of kidney Adrenal adenoma, right [facility] Diagnosis Hypokalemia Hypopotassemia Essential hypertension Unspecified essential hypertension Anxiety Anxiety state, unspecified [facility] Diagnosis Essential hypertension Unspecified essential hypertension Mixed hyperlipidemia Panic disorder Panic disorder without agoraphobia DDD (degenerative disc disease), lumbar Degeneration of lumbar or lumbosacral intervertebral disc [facility] Diagnosis Type 2 diabetes mellitus without complication, with long-term current use of insulin (HCC) [facility] Diagnosis Type 2 diabetes mellitus without complication, with long-term current use of insulin (HCC) [facility] Diagnosis Albuminuria- Primary Proteinuria Type 2 diabetes mellitus with other specified complication, with long-term current use of insulin (HCC) [facility] Diagnosis DDD (degenerative disc disease), lumbar Degeneration of lumbar or lumbosacral intervertebral disc [facility] Diagnosis Anxiety- Primary Anxiety state, unspecified Depression, unspecified depression type Type 2 diabetes mellitus without complication, with long-term current use of insulin (HCC) Primary hypertension Unspecified essential hypertension [facility] Diagnosis Type 2 diabetes mellitus without complication, with long-term current use of insulin ([facility]) [facility] Diagnosis Essential hypertension Unspecified essential hypertension Anxiety Anxiety state, unspecified Hypokalemia Hypopotassemia [facility] Diagnosis Ground glass opacity present on imaging of lung- Primary Lung nodules Other nonspecific abnormal finding of lung field [facility] Diagnosis Essential hypertension- Primary Unspecified [...] Calculus of kidney [facility] Diagnosis DDD (degenerative disc disease), lumbar Degeneration of lumbar or lumbosacral intervertebral disc Essential hypertension Unspecified essential hypertension Mixed hyperlipidemia Panic disorder Panic disorder without agoraphobia Type 2 diabetes mellitus without complication, with long-term current use of insulin (HCC) [facility] Diagnosis Type 2 diabetes mellitus without complication, with long-term current use of insulin ([facility]) [facility] Diagnosis Depression, unspecified depression type [facility] Diagnosis Type 2 diabetes mellitus without complication, with long-term current use of insulin ([facility]) [facility] Diagnosis Redness of skin- Primary Unspecified erythematous condition Bilateral elbow joint pain [facility] Diagnosis Encounter for screening mammogram for breast cancer [facility]* Diagnosis Type 2 diabetes mellitus without complication, with long-term current use of insulin ([facility]) [facility] Diagnosis Type 2 diabetes mellitus without complication, with long-term current use of insulin ([facility]) [facility] Diagnosis Type 2 diabetes mellitus without complication, with long-term current use of insulin ([facility]) [facility] Diagnosis Venous insufficiency of both lower extremities- Primary [facility]* Diagnosis DDD (degenerative disc disease), lumbar Degeneration of lumbar or lumbosacral intervertebral disc [facility] Diagnosis Depression, unspecified depression type [facility]* Diagnosis Type 2 diabetes mellitus without complication, with long-term current use of insulin ([facility]) [facility] Diagnosis Essential hypertension Unspecified essential hypertension Anxiety Anxiety state, unspecified Hypokalemia Hypopotassemia [facility]* Diagnosis DDD (degenerative disc disease), lumbar Degeneration of lumbar or lumbosacral intervertebral disc Essential hypertension Unspecified essential hypertension Mixed hyperlipidemia Panic disorder Panic disorder without agoraphobia [facility] Diagnosis Essential hypertension- Primary Unspecified [...] of left hand [facility] Diagnosis Thyroid nodule greater than or equal to 1 cm in diameter incidentally noted on imaging study- Primary [facility] Diagnosis Thyroid nodule Nontoxic uninodular goiter [facility] Diagnosis Lung nodules Other nonspecific abnormal finding of lung field Cigarette smoker Tobacco use disorder History of renal cell cancer [facility]* Diagnosis Type 2 diabetes mellitus without complication, with long-term current use of insulin ([facility]) [facility]* Diagnosis DDD (degenerative disc disease), lumbar Degeneration of lumbar or lumbosacral intervertebral disc [facility]* Diagnosis Onset Date Resolution Status Hypoxia acute Tobacco abuse acute COPD with acute exacerbation [facility] Work Phone: Evaluation note* Diagnosis Hypokalemia Hypopotassemia Anxiety Anxiety state, unspecified Essential hypertension Unspecified essential hypertension [facility]* Diagnosis DDD (degenerative disc disease), lumbar Degeneration of lumbar or lumbosacral intervertebral disc Essential hypertension Unspecified essential hypertension Mixed hyperlipidemia Panic disorder Panic disorder without agoraphobia Type 2 diabetes mellitus without complication, with long-term current use of insulin (HCC) documented [facility]* Diagnosis Special screening examination for viral disease- Primary Special screening examination for unspecified viral disease Type 2 diabetes mellitus without complication, with long-term current use of insulin (HCC) Chronic obstructive pulmonary disease, unspecified COPD type (HCC) Mixed hyperlipidemia Essential hypertension Unspecified essential hypertension Anxiety Anxiety state, unspecified Depression, unspecified depression type Polycythemia Polycythemia vera Microalbuminuria Proteinuria [facility] Diagnosis Ground glass opacity present on imaging of lung- Primary Lung nodules Other nonspecific abnormal finding of lung field [facility] Diagnosis Depression, unspecified depression type [facility]* Diagnosis Type 2 diabetes mellitus without complication, with long-term current use of insulin (HCC) [facility]* Diagnosis Hypertension, essential- Primary Unspecified essential [...] mammogram Wellness examination [facility] Diagnosis Lung nodules Other nonspecific abnormal finding of lung field Ground glass opacity present on imaging of lung [facility] Diagnosis Diabetic nephrosis (HCC)- Primary Type II or unspecified type diabetes mellitus with renal manifestations, not stated as uncontrolled Cushingoid facies Other ill-defined conditions Adenoma of right adrenal gland [facility] Diagnosis Insulin-requiring or dependent type II diabetes mellitus (HCC)- Primary Type II or unspecified type diabetes mellitus without mention of complication, not stated as uncontrolled [facility] Diagnosis Type 2 diabetes mellitus without complication, with long-term current use of insulin (HCC)- Primary [facility] Diagnosis Depression, unspecified depression type DDD (degenerative disc disease), lumbar Degeneration of lumbar or lumbosacral intervertebral disc [facility] Diagnosis Type 2 diabetes mellitus without complication, with long-term current use of insulin ([facility]) [facility]* Diagnosis Chronic obstructive pulmonary disease, unspecified COPD type (HCC)- Primary Lung nodules Other nonspecific abnormal finding of lung field Cigarette smoker Tobacco use disorder Morbid obesity (HCC) Morbid [facility] Diagnosis Type 2 diabetes mellitus without complication, with long-term current use of insulin (HCC) [facility] Diagnosis Anxiety Anxiety state, unspecified Essential hypertension Unspecified essential hypertension [facility]* Diagnosis Type 2 diabetes mellitus without complication, with long-term current use of insulin (HCC) [facility]* Diagnosis Type 2 diabetes mellitus without complication, with long-term current use of insulin (HCC) [facility]* Diagnosis Essential hypertension Unspecified essential hypertension Mixed hyperlipidemia DDD (degenerative disc disease), lumbar Degeneration of lumbar or lumbosacral intervertebral disc Depression, unspecified depression type [facility]* Diagnosis Panic disorder Panic disorder without agoraphobia [facility]* Diagnosis Uncontrolled type 2 diabetes mellitus with hyperglycemia (HCC) [facility]* Diagnosis Dry skin Other specified disease of sebaceous glands [facility] Diagnosis Kidney stone Calculus of kidney [facility]* Diagnosis DDD (degenerative disc disease), lumbar Degeneration of lumbar or lumbosacral intervertebral disc [facility]* Diagnosis Anxiety Anxiety state, unspecified Essential hypertension Unspecified essential hypertension [facility]* Diagnosis Essential hypertension Unspecified essential hypertension Mixed hyperlipidemia Anxiety Anxiety state, unspecified DDD (degenerative disc disease), lumbar Degeneration of lumbar or lumbosacral intervertebral disc Type 2 diabetes mellitus without complication, with long-term current use of insulin (HCC) Panic disorder Panic disorder without agoraphobia [facility]* Diagnosis Essential (primary) hypertension Unspecified essential hypertension Proteinuria, unspecified [facility]* Diagnosis Anxiety Anxiety state, unspecified Essential hypertension Unspecified essential hypertension DDD (degenerative disc disease), lumbar Degeneration of lumbar or lumbosacral intervertebral disc Depression, unspecified depression type Panic disorder Panic disorder without agoraphobia [facility] Diagnosis Type 2 diabetes mellitus without complication, with long-term current use of insulin (HCC) [facility] Diagnosis Type 2 diabetes mellitus without complication, with long-term current use of insulin (HCC) [facility] Diagnosis Essential hypertension Unspecified essential hypertension Mixed hyperlipidemia Type 2 diabetes mellitus without complication, with long-term current use of insulin (HCC) Anxiety Anxiety state, unspecified DDD (degenerative disc disease), lumbar Degeneration of lumbar or lumbosacral intervertebral disc Panic disorder Panic disorder without agoraphobia [facility] Diagnosis Dry skin Other specified disease of sebaceous glands [facility] Diagnosis Chronic obstructive pulmonary disease, unspecified COPD type (HCC) [facility] Diagnosis Chronic obstructive pulmonary disease, unspecified COPD type (HCC) [facility] Diagnosis Chronic obstructive pulmonary disease, unspecified COPD type (HCC)- Primary Lung nodules Other nonspecific abnormal finding of lung field Obstructive sleep apnea syndrome Obstructive sleep apnea (adult) (pediatric) Cigarette smoker Tobacco use disorder Morbid obesity (HCC) Morbid obesity [facility] Diagnosis Encounter for gynecological examination without [...] COPD type (HCC) [facility] Diagnosis DDD (degenerative disc disease), lumbar Degeneration of lumbar or lumbosacral intervertebral disc Panic disorder Panic disorder without agoraphobia [facility] Diagnosis DDD (degenerative disc disease), lumbar Degeneration of lumbar or lumbosacral intervertebral disc Essential hypertension Unspecified essential hypertension Anxiety Anxiety state, unspecified Type 2 diabetes mellitus without complication, with long-term current use of insulin (HCC) Mixed hyperlipidemia [facility] Diagnosis Type 2 diabetes mellitus without complication, with long-term current use of insulin (HCC) [facility] Diagnosis Type 2 diabetes mellitus without complication, with long-term current use of insulin (HCC) [facility] Diagnosis Type 2 diabetes mellitus without complication, with long-term current use of insulin (HCC) documented in this encounter [facility] note* Diagnosis Lung nodules Other nonspecific abnormal finding of lung field documented in this encounter [facility] note* Diagnosis Essential hypertension- Primary Unspecified essential hypertension Type 2 diabetes mellitus without complication, with long-term current use of insulin (HCC) Generalized anxiety disorder Major depressive disorder, recurrent, in partial remission Major depressive disorder, recurrent episode, in partial or unspecified remission Encounter for immunization Need for other specified prophylactic vaccination against single bacterial disease documented in this encounter [facility] note* Diagnosis Essential hypertension Unspecified essential hypertension Mixed hyperlipidemia Anxiety Anxiety state, unspecified DDD (degenerative disc disease), lumbar Degeneration of lumbar or lumbosacral intervertebral disc Type 2 diabetes mellitus without complication, with long-term current use of insulin (HCC) documented in this encounter [facility] note* Diagnosis Venous insufficiency- Primary Unspecified venous (peripheral) insufficiency documented in this encounter [facility] note* Diagnosis Essential hypertension Unspecified essential hypertension DDD (degenerative disc disease), lumbar Degeneration of lumbar or lumbosacral intervertebral disc documented in this encounter [facility] note* Diagnosis Mixed hyperlipidemia Anxiety Anxiety state, unspecified Type 2 diabetes mellitus without complication, with long-term current use of insulin (HCC) Essential hypertension Unspecified essential hypertension DDD (degenerative disc disease), lumbar Degeneration of lumbar or lumbosacral intervertebral disc Panic disorder Panic disorder without agoraphobia Depression, unspecified depression type documented in this encounter [facility] for referral (narrative)* Diagnostic Procedure Only (Routine) - Pending Review Specialty Diagnoses / Procedures Referred By Di t Referred To Contact [facility] Diagnoses Encounter for screening mammogram for breast cancer Procedures SHAHRAM SCREENING SCREENING MAMMOGRAPHY BI 2-VIEW BREAST INC CAD Jovany Rizzo PA-C [address] [place] [address] [facility] [address] [place] [address] Referral ID Status Reason Start Date Expiration Date Visits Requested Visits Authorized [id number] Pending Review Auto-Generat ed Referral 08/05/2021 09/04/2022 1 1 T [facility] for referral (narrative)* Diagnostic Procedure Only (Routine) - Pending Review Specialty Diagnoses / Procedures Referred By Di hardy Referred To Contact [facility] Diagnoses Encounter for screening mammogram for breast cancer Procedures SHAHRAM SCREENING SCREENING MAMMOGRAPHY BI 2-VIEW BREAST INC Jovany Bear PA-C [address] [place] [address] [facility] [address] [place] [address] Referral ID Status Reason Start Date Expiration Date Visits Requested Visits Authorized [id number] Pending Review Auto-Generat ed Referral 07/07/2022 08/06/2023 1 1 T [facility] for referral (narrative)* Diagnostic Procedure Only (Routine) - Closed Specialty Diagnoses / Procedures Referred By Di hardy Referred To Contact [facility] Diagnoses Thyroid nodule Procedures US THYROID/PARATHYROID US SOFT TISSUE HEAD & NECK REAL TIME IMGE Jovany Saunders PA-C [address] [place] [address] [place] [address] Referral ID Status Reason Start Date Expiration Date V isits Requested Visits Authorized [id number] Closed Auto-Generate d Referral 05/19/2022 06/18/2023 1 1 T [facility] for referral (narrative)* Diagnostic Procedure Only (Routine) - Authorized Specialty Diagnoses / Procedures Referred By Di hardy Referred To Contact [facility] Diagnoses Encounter for screening mammogram for malignant neoplasm of breast Procedures SHAHRAM SCREENING SCREENING MAMMOGRAPHY BI 2-VIEW BREAST INC Jovany Bear PA-C [address] [place] [address] [facility] [address] [place] [address] Referral ID Status Reason Start Date Expiration Date Visits Requested Visits Authorized [id number] Authorized Auto-Generat ed Referral 06/09/2023 07/08/2024 1 1 * Consult, Test, Treat (Routine) - Authorized Specialty Diagnoses / Procedures Referred By Contac t Referred To Contact Gynecology Diagnoses Screening for cervical cancer Procedures CONSULT TO GYNECOLOGY OFFICE/OUTPATIENT [facility] 60 MINUTES Jovany Rizzo PA-C [address] [place] [address] Referral ID Status Reason Start Date Expiration Date Visits Requested Visits Authorized [id number] Authorized PCP Requested Referral Auto-Generate d Referral 06/09/2023 06/08/2024 1 1 * Medication Prior Authorization - Authorized Specialty Diagnoses / Procedures Referred By Contac t Referred To Contact Diagnoses Type 2 diabetes mellitus without complication, with long-term current use of insulin (HCC) Jovany Rizzo PA-C [address] [place] [address] Referral ID Status Reason Start Date Expiration Date V isits Requested Visits Authorized [id number] Authorized 06/09/2023 06/07/2024 1 1 * Medication Prior Authorization - Closed Specialty Diagnoses / Procedures Referred By Contac t Referred To Contact Diagnoses Type 2 diabetes mellitus without complication, with long-term current use of insulin (HCC) Jovany Rizzo PA-C [address] [place] [address] Referral ID Status Reason Start Date Expiration Date Visits Re quested Visits Authorized [id number] Closed 1 1 * Consult, Test, Treat (Routine) - Authorized Specialty Diagnoses / Procedures Referred By Contac t Referred To Contact Ophthalmology Diagnoses Screening for diabetic retinopathy Procedures CONSULT TO OPHTHALMOLOGY OFFICE/OUTPATIENT [facility] 60 MINUTES Jovany Rizzo PA-C [address] [place] [address] Referral ID Status Reason Start Date Expiration Date Visits Requested Visits Authorized [id number] Authorized PCP Requested Referral 06/09/2023 06/08/2024 1 1 [facility] for referral (narrative)* Outpatient Procedure (Routine) - Authorized Specialty Diagnoses / Procedures Referred By Contac t Referred To Contact [facility] Diagnoses Chronic obstructive pulmonary disease, unspecified COPD type (HCC) Procedures OXIMETRY WITH AMBULATION NONINVASIVE EAR/PULSE OXIMETRY MULTIPLE Pilar Meza PA-C [address] [facility] [place] [address] [address] Referral ID Status Reason Start Date Expiration Date Visits Requested Visits Authorized [id number] Authorized Auto-Generat ed Referral 08/11/2023 09/09/2024 1 1 * Outpatient Procedure (Routine) - Authorized Specialty Diagnoses / Procedures Referred By Contac t Referred To [facility] Diagnoses Chronic obstructive pulmonary disease, unspecified COPD type (HCC) Procedures SPIROMETRY BASELINE ONLY SPMTRY W/VC EXPIRATORY KYLE W/WO MXML VOL VNTJ Pilar Cardoza PA-C [address] [facility] [facility] [place] [address] [place] [address] Referral ID Status Reason Start Date Expiration Date Visits Requested Visits Authorized [id number] Authorized Auto-Generat ed Referral 08/11/2023 09/09/2024 1 1 [facility] for visit Narrative* MRI/CT (Routine) - Closed Specialty Diagnoses / Procedures Referred By Contac t Referred To Contact CT IMAGING Diagnoses Lung nodules Procedures CT CHEST WO IVCON DIAGNOSTIC COMPUTED TOMOGRAPHY THORAX W/O CNTRST Pilar Cardoza PA-C [address] [place] [address] Phone: tel: fax: [place] [phone] Referral ID Status Reason Start Date Expiration Date V isits Requested Visits Authorized [id number] Closed Auto-Generate d Referral 06/01/2024 07/31/2024 1 1 [facility] Summary Purpose Family History Relationship Condition Age at Onset Recorded Date/T khoa aunt Diabetes mellitus Unknown father Cardiac disease Unknown sister Cardiac disease Unknown grandfather Malignant neoplasm of colon Unknown Not Specified Malignant neoplasm of breast Unknown Advance Directives Documents on File Type Date Recorded Patient 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 [employer] Expl anation Advance Directive(s) Advance Directive(s) 03/21/2015 4:30 PM Documents on File Type Date Recorded Patient Reversing [employer] Expl anation Advance Directive(s) Advance Directive(s) 03/21/2015 4:30 PM Advance Directive Response Recorded Date/ Time Living Will No February 25 3:32pm Power of Car Sander No February 25, 2023 3:32pm Advance Directive Response Recorded Date/ Time Living Will No February 25 9:00pm Power of Car Sander No February 25, 2023 9:00pm Reason for Referral Specialty Diagnoses / Procedures Referred By Di hardy Referred To Contact Cardiology Diagnoses SOB (shortness of breath) Procedures CONSULT TO CARDIOLOGY OFFICE/OUTPATIENT [facility] MDM 60-74 MINUTES Samson Hogan MD [address] [place] [address] Referral ID Status Reason Start Date Expiration Date Visits Requested Visits Authorized [id number] Authorized PCP Requested Referral 06/01/2021 06/01/2022 1 1 Specialty Diagnoses / Procedures Referred By Di hardy Referred To Contact [facility] IMAGING Diagnoses Liver mass Procedures MRI LIVER WO/W IVCON MRI ABDOMEN W/O & W/CONTRAST MATERIAL Samson Hogan MD [address] [place] [address] Mr Imaging Referral ID Status Reason Start Date Expiration Date Visits Requested Visits Authorized [id number] Pending Review Auto-Generat ed Referral 06/10/2021 07/10/2022 1 1 Specialty Diagnoses / Procedures Referred By Contac t Referred To Contact Nutrition Diagnoses Type 2 diabetes mellitus without complication, with long-term current use of insulin (HCC) Procedures CONSULT TO NUTRITION THERAPY OFFICE/OUTPATIENT [facility] 60-74 MINUTES Samson Hogan MD [address] [place] [address] Referral ID Status Reason Start Date Expiration Date Visits Requested Visits Authorized [id number] Authorized PCP Requested Referral 06/02/2021 06/02/2022 1 1 Specialty Diagnoses / Procedures Referred By Contac t Referred To Contact Gynecology Diagnoses Low libido Screening for cervical cancer Procedures CONSULT TO GYNECOLOGY OFFICE/OUTPATIENT [facility] 60-74 MINUTES Jovany Rizzo PA-C [address] [place] [address] Referral ID Status Reason Start Date Expiration Date Visits Requested Visits Authorized [id number] Authorized PCP Requested Referral Auto-Generate d Referral 09/24/2021 09/24/2022 1 1 Specialty Diagnoses / Procedures Referred By Contac t Referred To Contact Ophthalmology Diagnoses Type 2 diabetes mellitus without complication, with long-term current use of insulin (HCC) Procedures CONSULT TO OPHTHALMOLOGY OFFICE/OUTPATIENT [facility] 60-74 MINUTES Jovany Rizzo PA-C [address] [place] [address] Referral ID Status Reason Start Date Expiration Date Visits Requested Visits Authorized [id number] Authorized PCP Requested Referral 09/24/2021 09/24/2022 1 1 Specialty Diagnoses / Procedures Referred By Di t Referred To Contact Diagnoses Type 2 diabetes mellitus without complication, with long-term current use of insulin (HCC) Jovany Rizzo PA-C [address] [place] [address] Referral ID Status Reason Start Date Expiration Date Visits Re quested Visits Authorized [id number] Closed 1 1 Referral ID Status Reason Start Date Expiration Date Visits Re quested Visits Authorized [id number] Closed 1 1 Referral ID Status Reason Start Date Expiration Date Visits Re quested Visits Authorized [id number] Closed 1 1 Referral ID Status Reason Start Date Expiration Date Visits Re quested Visits Authorized [id number] Closed 1 1 Specialty Diagnoses / Procedures Referred By Contac t Referred To Contact Nephrology Diagnoses Albuminuria Type 2 diabetes mellitus with other specified complication, with long-term current use of insulin (HCC) Procedures CONSULT TO NEPHROLOGY OFFICE/OUTPATIENT [facility] MDM 60-74 MINUTES Jovany Rizzo PA-C [address] [place] [id number] Referral ID Status Reason Start Date Expiration Date Visits Requested Visits Authorized [id number] Authorized PCP Requested Referral 10/25/2021 10/25/2022 1 1 Specialty Diagnoses / Procedures Referred By Contac t Referred To Contact Diagnoses Type 2 diabetes mellitus without complication, with long-term current use of insulin (HCC) Samson Hgoan MD [address] [place] [address] Referral ID Status Reason Start Date Expiration Date Visits Re quested Visits Authorized [id number] Closed 1 1 Referral ID Status Reason Start Date Expiration Date Visits Re quested Visits Authorized [id number] Closed 1 1 Specialty Diagnoses / Procedures Referred By Contac t Referred To Contact CT IMAGING Diagnoses Lung nodules Ground glass opacity present on imaging of lung Procedures CT CHEST WO IVCON DIAGNOSTIC COMPUTED TOMOGRAPHY THORAX W/O Patti Goss MD [address] [place] [id number] Ct Imaging Referral ID Status Reason Start Date Expiration Date Visits Requested Visits Authorized [id number] Pending Review Auto-Generat ed Referral 05/18/2023 06/16/2023 1 1 Referral ID Status Reason Start Date Expiration Date Visits Re quested Visits Authorized [id number] Closed 1 1 Specialty Diagnoses / Procedures Referred By Contac t Referred To Contact Endocrinology Diagnoses Type 2 diabetes mellitus without complication, with long-term current use of insulin (HCC) Procedures CONSULT TO ENDOCRINOLOGY OFFICE/OUTPATIENT [facility] MDM 60-74 MINUTES Samson Hogan MD [address] [place] [address] Referral ID Status Reason Start Date Expiration Date Visits Requested Visits Authorized [id number] Authorized PCP Requested Referral 07/21/2022 07/21/2023 1 1 Referral ID Status Reason Start Date Expiration Date Visits Re quested Visits Authorized [id number] Closed 1 1 Referral ID Status Reason Start Date Expiration Date Visits Re quested Visits Authorized [id number] Closed 1 1 Specialty Diagnoses / Procedures Referred By Contac t Referred To Contact General Surgery Diagnoses Thyroid nodule greater than or equal to 1 cm in diameter incidentally noted on imaging study Procedures CONSULT TO GENERAL SURGERY OFFICE/OUTPATIENT [facility] MDM 60-74 MINUTES Jovany Rizzo PA-C [address] [place] [address] Referral ID Status Reason Start Date Expiration Date Visits Requested Visits Authorized [id number] Authorized PCP Requested Referral 3 11/27/2023 1 1 Specialty Diagnoses / Procedures Referred By Di t Referred To Contact CT IMAGING Diagnoses Lung nodules Cigarette smoker History of renal cell cancer Procedures CT CHEST WO IVCON DIAGNOSTIC COMPUTED TOMOGRAPHY THORAX W/O Patti Goss MD [address] [facility] [address] [place] [address] Referral ID Status Reason Start Date Expiration Date V isits Requested Visits Authorized [id number] Closed Auto-Generate d Referral 03/16/2022 05/15/2022 1 1 Referral ID Status Reason Start Date Expiration Date Visits Re quested Visits Authorized [id number] Closed 1 1 Specialty Diagnoses / Procedures Referred By Arianaac t Referred To Contact CT IMAGING Diagnoses Lung nodules Ground glass opacity present on imaging of lung Procedures CT CHEST WO IVCON DIAGNOSTIC COMPUTED TOMOGRAPHY THORAX W/O Patti Goss MD [address] [place] [address] [place] [address] Referral ID Status Reason Start Date Expiration Date Visits Requested Visits Authorized [id number] Pending Review Auto-Generat ed Referral 05/18/2023 06/16/2024 1 1 Referral ID Status Reason Start Date Expiration Date Visits Re quested Visits Authorized [id number] Closed 1 1 Specialty Diagnoses / Procedures Referred By Contac t Referred To Contact Nephrology Diagnoses Diabetic nephrosis (HCC) Procedures CONSULT TO NEPHROLOGY OFFICE/OUTPATIENT [facility] MDM 60 MINUTES Jovany Rizzo PA-C [address] [place] [address] Referral ID Status Reason Start Date Expiration Date Visits Requested Visits Authorized [id number] Authorized PCP Requested Referral 06/17/2023 06/13/2024 1 1 Referral ID Status Reason Start Date Expiration Date Visits Re quested Visits Authorized [id number] Closed 1 1 Referral ID Status Reason Start Date Expiration Date V isits Requested Visits Authorized [id number] Pending Review 1 1 Referral ID Status Reason Start Date Expiration Date Visits Re quested Visits Authorized [id number] Closed 1 1 Referral ID Status Reason Start Date Expiration Date Visits Re quested Visits Authorized [id number] Closed 1 1 Chief Complaint and Reason [...] content) DATE CREATED AUTHOR 01/19/2021 [facility] DATE CREATED AUTHOR AUTHOR'S ORGANIZ ATION 09/18/2023 [facility] DATE CREATED AUTHOR AUTHOR'S ORGANIZ ATION 09/22/2024 [facility] Source Comments (unrecognize d section and content) In the event this informatio n is protected by the Federal Confidentiality of Alcohol and Drug Abuse Patient Records regulations: The Federal rules restrict any use of the information to criminally investigate or prosecute any alcohol or drug abuse patient.[facility] the event this information is protected by the Federal Confidentiality of Alcohol and Drug Abuse Patient Records regulations: The Federal rules restrict any use of the information to criminally investigate or prosecute any alcohol or drug abuse patient.[facility] the event this information is protected by the Federal Confidentiality of Alcohol and Drug Abuse Patient Records regulations: The Federal rules restrict any use of the information to criminally investigate or prosecute any alcohol or drug abuse patient.[facility] the event this information is protected by the Federal Confidentiality of Alcohol and Drug Abuse Patient Records regulations: The Federal rules restrict any use of the information to criminally investigate or prosecute any alcohol or drug abuse patient.[facility] the event this information is protected by the Federal Confidentiality of Alcohol and Drug Abuse Patient Records regulations: The Federal rules restrict any use of the information to criminally investigate or prosecute any alcohol or drug abuse patient.[facility] the event this information is protected by the Federal Confidentiality of Alcohol and Drug Abuse Patient Records regulations: The Federal rules restrict any use of the information to criminally investigate or prosecute any alcohol or drug abuse patient.[facility] the event this information is protected by the Federal Confidentiality of Alcohol and Drug Abuse Patient Records regulations: The Federal rules restrict any use of the information to criminally investigate or prosecute any alcohol or drug abuse patient.[facility] the event this information is protected by the Federal Confidentiality of Alcohol and Drug Abuse Patient Records regulations: The Federal rules restrict any use of the information to criminally investigate or prosecute any alcohol or drug abuse patient.[facility] the event this information is protected by the Federal Confidentiality of Alcohol and Drug Abuse Patient Records regulations: The Federal rules restrict any use of the information to criminally investigate or prosecute any alcohol or drug abuse patient.[facility] the event this information is protected by the Federal Confidentiality of Alcohol and Drug Abuse Patient Records regulations: The Federal rules restrict any use of the information to criminally investigate or prosecute any alcohol or drug abuse patient.[facility] the event this information is protected by the Federal Confidentiality of Alcohol and Drug Abuse Patient Records regulations: The Federal rules restrict any use of the information to criminally investigate or prosecute any alcohol or drug abuse patient.[facility] the event this information is protected by the Federal Confidentiality of Alcohol and Drug Abuse Patient Records regulations: The Federal rules restrict any use of the information to criminally investigate or prosecute any alcohol or drug abuse patient.[facility] the event this information is protected by the Federal Confidentiality of Alcohol and Drug Abuse Patient Records regulations: The Federal rules restrict any use of the information to criminally investigate or prosecute any alcohol or drug abuse patient.[facility] the event this information is protected by the Federal Confidentiality of Alcohol and Drug Abuse Patient Records regulations: The Federal rules restrict any use of the information to criminally investigate or prosecute any alcohol or drug abuse patient.[facility] the event this information is protected by the Federal Confidentiality of Alcohol and Drug Abuse Patient Records regulations: The Federal rules restrict any use of the information to criminally investigate or prosecute any alcohol or drug abuse patient.[facility] the event this information is protected by the Federal Confidentiality of Alcohol and Drug Abuse Patient Records regulations: The Federal rules restrict any use of the information to criminally investigate or prosecute any alcohol or drug abuse patient.[facility] the event this information is protected by the Federal Confidentiality of Alcohol and Drug Abuse Patient Records regulations: The Federal rules restrict any use of the information to criminally investigate or prosecute any alcohol or drug abuse patient.[facility] the event this information is protected by the Federal Confidentiality of Alcohol and Drug Abuse Patient Records regulations: The Federal rules restrict any use of the information to criminally investigate or prosecute any alcohol or drug abuse patient.[facility] the event this information is protected by the Federal Confidentiality of Alcohol and Drug Abuse Patient Records regulations: The Federal rules restrict any use of the information to criminally investigate or prosecute any alcohol or drug abuse patient.[facility]In the event this information is protected by the Federal Confidentiality of Alcohol and Drug Abuse Patient Records regulations: The Federal rules restrict any use of the information to criminally investigate or prosecute any alcohol or drug abuse patient.[facility]In the event this information is protected by the Federal Confidentiality of Alcohol and Drug Abuse Patient Records regulations: The Federal rules restrict any use of the information to criminally investigate or prosecute any alcohol or drug abuse patient.[facility]In the event this information is protected by the Federal Confidentiality of Alcohol and Drug Abuse Patient Records regulations: The Federal rules restrict any use of the information to criminally investigate or prosecute any alcohol or drug abuse patient.[facility]In the event this information is protected by the Federal Confidentiality of Alcohol and Drug Abuse Patient Records regulations: The Federal rules restrict any use of the information to criminally investigate or prosecute any alcohol or drug abuse patient.[facility]In the event this information is protected by the Federal Confidentiality of Alcohol and Drug Abuse Patient Records regulations: The Federal rules restrict any use of the information to criminally investigate or prosecute any alcohol or drug abuse patient.[facility]In the event this information is protected by the Federal Confidentiality of Alcohol and Drug Abuse Patient Records regulations: The Federal rules restrict any use of the information to criminally investigate or prosecute any alcohol or drug abuse patient.[facility]In the event this information is protected by the Federal Confidentiality of Alcohol and Drug Abuse Patient Records regulations: The Federal rules restrict any use of the information to criminally investigate or prosecute any alcohol or drug abuse patient.[facility]In the event this information is protected by the Federal Confidentiality of Alcohol and Drug Abuse Patient Records regulations: The Federal rules restrict any use of the information to criminally investigate or prosecute any alcohol or drug abuse patient.[facility] HospitalIn the event this information is protected by the Federal Confidentiality of Alcohol and Drug Abuse Patient Records regulations: The Federal rules restrict any use of the information to criminally investigate or prosecute any alcohol or drug abuse patient.[facility]In the event this information is protected by the Federal Confidentiality of Alcohol and Drug Abuse Patient Records regulations: The Federal rules restrict any use of the information to criminally investigate or prosecute any alcohol or drug abuse patient.[facility]In the event this information is protected by the Federal Confidentiality of Alcohol and Drug Abuse Patient Records regulations: The Federal rules restrict any use of the information to criminally investigate or prosecute any alcohol or drug abuse patient.[facility]In the event this information is protected by the Federal Confidentiality of Alcohol and Drug Abuse Patient Records regulations: The Federal rules restrict any use of the information to criminally investigate or prosecute any alcohol or drug abuse patient.[facility]In the event this information is protected by the Federal Confidentiality of Alcohol and Drug Abuse Patient Records regulations: The Federal rules restrict any use of the information to criminally investigate or prosecute any alcohol or drug abuse patient.[facility]In the event this information is protected by the Federal Confidentiality of Alcohol and Drug Abuse Patient Records regulations: The Federal rules restrict any use of the information to criminally investigate or prosecute any alcohol or drug abuse patient.[facility]In the event this information is protected by the Federal Confidentiality of Alcohol and Drug Abuse Patient Records regulations: The Federal rules restrict any use of the information to criminally investigate or prosecute any alcohol or drug abuse patient.[facility]In the event this information is protected by the Federal Confidentiality of Alcohol and Drug Abuse Patient Records regulations: The Federal rules restrict any use of the information to criminally investigate or prosecute any alcohol or drug abuse patient.[facility] HospitalIn the event this information is protected by the Federal Confidentiality of Alcohol and Drug Abuse Patient Records regulations: The Federal rules restrict any use of the information to criminally investigate or prosecute any alcohol or drug abuse patient.[facility] HospitalIn the event this information is protected by the Federal Confidentiality of Alcohol and Drug Abuse Patient Records regulations: The Federal rules restrict any use of the information to criminally investigate or prosecute any alcohol or drug abuse patient.[facility]In the event this information is protected by the Federal Confidentiality of Alcohol and Drug Abuse Patient Records regulations: The Federal rules restrict any use of the information to criminally investigate or prosecute any alcohol or drug abuse patient.[facility]In the event this information is protected by the Federal Confidentiality of Alcohol and Drug Abuse Patient Records regulations: The Federal rules restrict any use of the information to criminally investigate or prosecute any alcohol or drug abuse patient.[facility]In the event this information is protected by the Federal Confidentiality of Alcohol and Drug Abuse Patient Records regulations: The Federal rules restrict any use of the information to criminally investigate or prosecute any alcohol or drug abuse patient.[facility]In the event this information is protected by the Federal Confidentiality of Alcohol and Drug Abuse Patient Records regulations: The Federal rules restrict any use of the information to criminally investigate or prosecute any alcohol or drug abuse patient.[facility]In the event this information is protected by the Federal Confidentiality of Alcohol and Drug Abuse Patient Records regulations: The Federal rules restrict any use of the information to criminally investigate or prosecute any alcohol or drug abuse patient.[facility] HospitalIn the event this information is protected by the Federal Confidentiality of Alcohol and Drug Abuse Patient Records regulations: The Federal rules restrict any use of the information to criminally investigate or prosecute any alcohol or drug abuse patient.[facility] HospitalIn the event this information is protected by the Federal Confidentiality of Alcohol and Drug Abuse Patient Records regulations: The Federal rules restrict any use of the information to criminally investigate or prosecute any alcohol or drug abuse patient.[facility]In the event this information is protected by the Federal Confidentiality of Alcohol and Drug Abuse Patient Records regulations: The Federal rules restrict any use of the information to criminally investigate or prosecute any alcohol or drug abuse patient.[facility]In the event this information is protected by the Federal Confidentiality of Alcohol and Drug Abuse Patient Records regulations: The Federal rules restrict any use of the information to criminally investigate or prosecute any alcohol or drug abuse patient.[facility] HospitalIn the event this information is protected by the Federal Confidentiality of Alcohol and Drug Abuse Patient Records regulations: The Federal rules restrict any use of the information to criminally investigate or prosecute any alcohol or drug abuse patient.[facility]In the event this information is protected by the Federal Confidentiality of Alcohol and Drug Abuse Patient Records regulations: The Federal rules restrict any use of the information to criminally investigate or prosecute any alcohol or drug abuse patient.[facility]In the event this information is protected by the Federal Confidentiality of Alcohol and Drug Abuse Patient Records regulations: The Federal rules restrict any use of the information to criminally investigate or prosecute any alcohol or drug abuse patient.[facility]In the event this information is protected by the Federal Confidentiality of Alcohol and Drug Abuse Patient Records regulations: The Federal rules restrict any use of the information to criminally investigate or prosecute any alcohol or drug abuse patient.[facility]In the event this information is protected by the Federal Confidentiality of Alcohol and Drug Abuse Patient Records regulations: The Federal rules restrict any use of the information to criminally investigate or prosecute any alcohol or drug abuse patient.[facility]In the event this information is protected by the Federal Confidentiality of Alcohol and Drug Abuse Patient Records regulations: The Federal rules restrict any use of the information to criminally investigate or prosecute any alcohol or drug abuse patient.[facility]In the event this information is protected by the Federal Confidentiality of Alcohol and Drug Abuse Patient Records regulations: The Federal rules restrict any use of the information to criminally investigate or prosecute any alcohol or drug abuse patient.[facility]In the event this information is protected by the Federal Confidentiality of Alcohol and Drug Abuse Patient Records regulations: The Federal rules restrict any use of the information to criminally investigate or prosecute any alcohol or drug abuse patient.[facility]In the event this information is protected by the Federal Confidentiality of Alcohol and Drug Abuse Patient Records regulations: The Federal rules restrict any use of the information to criminally investigate or prosecute any alcohol or drug abuse patient.[facility]In the event this information is protected by the Federal Confidentiality of Alcohol and Drug Abuse Patient Records regulations: The Federal rules restrict any use of the information to criminally investigate or prosecute any alcohol or drug abuse patient.[facility]In the event this information is protected by the Federal Confidentiality of Alcohol and Drug Abuse Patient Records regulations: The Federal rules restrict any use of the information to criminally investigate or prosecute any alcohol or drug abuse patient.[facility]In the event this information is protected by the Federal Confidentiality of Alcohol and Drug Abuse Patient Records regulations: The Federal rules restrict any use of the information to criminally investigate or prosecute any alcohol or drug abuse patient.[facility]In the event this information is protected by the Federal Confidentiality of Alcohol and Drug Abuse Patient Records regulations: The Federal rules restrict any use of the information to criminally investigate or prosecute any alcohol or drug abuse patient.[facility]In the event this information is protected by the Federal Confidentiality of Alcohol and Drug Abuse Patient Records regulations: The Federal rules restrict any use of the information to criminally investigate or prosecute any alcohol or drug abuse patient.[facility]In the event this information is protected by the Federal Confidentiality of Alcohol and Drug Abuse Patient Records regulations: The Federal rules restrict any use of the information to criminally investigate or prosecute any alcohol or drug abuse patient.[facility]In the event this information is protected by the Federal Confidentiality of Alcohol and Drug Abuse Patient Records regulations: The Federal rules restrict any use of the information to criminally investigate or prosecute any alcohol or drug abuse patient.[facility]In the event this information is protected by the Federal Confidentiality of Alcohol and Drug Abuse Patient Records regulations: The Federal rules restrict any use of the information to criminally investigate or prosecute any alcohol or drug abuse patient.[facility]In the event this information is protected by the Federal Confidentiality of Alcohol and Drug Abuse Patient Records regulations: The Federal rules restrict any use of the information to criminally investigate or prosecute any alcohol or drug abuse patient.[facility]In the event this information is protected by the Federal Confidentiality of Alcohol and Drug Abuse Patient Records regulations: The Federal rules restrict any use of the information to criminally investigate or prosecute any alcohol or drug abuse patient.[facility]In the event this information is protected by the Federal Confidentiality of Alcohol and Drug Abuse Patient Records regulations: The Federal rules restrict any use of the information to criminally investigate or prosecute any alcohol or drug abuse patient.[facility]In the event this information is protected by the Federal Confidentiality of Alcohol and Drug Abuse Patient Records regulations: The Federal rules restrict any use of the information to criminally investigate or prosecute any alcohol or drug abuse patient.[facility]In the event this information is protected by the Federal Confidentiality of Alcohol and Drug Abuse Patient Records regulations: The Federal rules restrict any use of the information to criminally investigate or prosecute any alcohol or drug abuse patient.[facility]In the event this information is protected by the Federal Confidentiality of Alcohol and Drug Abuse Patient Records regulations: The Federal rules restrict any use of the information to criminally investigate or prosecute any alcohol or drug abuse patient.[facility]In the event this information is protected by the Federal Confidentiality of Alcohol and Drug Abuse Patient Records regulations: The Federal rules restrict any use of the information to criminally investigate or prosecute any alcohol or drug abuse patient.[facility]In the event this information is protected by the Federal Confidentiality of Alcohol and Drug Abuse Patient Records regulations: The Federal rules restrict any use of the information to criminally investigate or prosecute any alcohol or drug abuse patient.[facility]In the event this information is protected by the Federal Confidentiality of Alcohol and Drug Abuse Patient Records regulations: The Federal rules restrict any use of the information to criminally investigate or prosecute any alcohol or drug abuse patient.[facility]In the event this information is protected by the Federal Confidentiality of Alcohol and Drug Abuse Patient Records regulations: The Federal rules restrict any use of the information to criminally investigate or prosecute any alcohol or drug abuse patient.[facility]In the event this information is protected by the Federal Confidentiality of Alcohol and Drug Abuse Patient Records regulations: The Federal rules restrict any use of the information to criminally investigate or prosecute any alcohol or drug abuse patient.[facility]In the event this information is protected by the Federal Confidentiality of Alcohol and Drug Abuse Patient Records regulations: The Federal rules restrict any use of the information to criminally investigate or prosecute any alcohol or drug abuse patient.[facility]In the event this information is protected by the Federal Confidentiality of Alcohol and Drug Abuse Patient Records regulations: The Federal rules restrict any use of the information to criminally investigate or prosecute any alcohol or drug abuse patient.[facility]In the event this information is protected by the Federal Confidentiality of Alcohol and Drug Abuse Patient Records regulations: The Federal rules restrict any use of the information to criminally investigate or prosecute any alcohol or drug abuse patient.[facility]In the event this information is protected by the Federal Confidentiality of Alcohol and Drug Abuse Patient Records regulations: The Federal rules restrict any use of the information to criminally investigate or prosecute any alcohol or drug abuse patient.[facility]In the event this information is protected by the Federal Confidentiality of Alcohol and Drug Abuse Patient Records regulations: The Federal rules restrict any use of the information to criminally investigate or prosecute any alcohol or drug abuse patient.[facility]In the event this information is protected by the Federal Confidentiality of Alcohol and Drug Abuse Patient Records regulations: The Federal rules restrict any use of the information to criminally investigate or prosecute any alcohol or drug abuse patient.[facility]In the event this information is protected by the Federal Confidentiality of Alcohol and Drug Abuse Patient Records regulations: The Federal rules restrict any use of the information to criminally investigate or prosecute any alcohol or drug abuse patient.[facility]In the event this information is protected by the Federal Confidentiality of Alcohol and Drug Abuse Patient Records regulations: The Federal rules restrict any use of the information to criminally investigate or prosecute any alcohol or drug abuse patient.[facility]In the event this information is protected by the Federal Confidentiality of Alcohol and Drug Abuse Patient Records regulations: The Federal rules restrict any use of the information to criminally investigate or prosecute any alcohol or drug abuse patient.[facility]In the event this information is protected by the Federal Confidentiality of Alcohol and Drug Abuse Patient Records regulations: The Federal rules restrict any use of the information to criminally investigate or prosecute any alcohol or drug abuse patient.[facility]In the event this information is protected by the Federal Confidentiality of Alcohol and Drug Abuse Patient Records regulations: The Federal rules restrict any use of the information to criminally investigate or prosecute any alcohol or drug abuse patient.[facility]In the event this information is protected by the Federal Confidentiality of Alcohol and Drug Abuse Patient Records regulations: The Federal rules restrict any use of the information to criminally investigate or prosecute any alcohol or drug abuse patient.[facility]In the event this information is protected by the Federal Confidentiality of Alcohol and Drug Abuse Patient Records regulations: The Federal rules restrict any use of the information to criminally investigate or prosecute any alcohol or drug abuse patient.[facility]In the event this information is protected by the Federal Confidentiality of Alcohol and Drug Abuse Patient Records regulations: The Federal rules restrict any use of the information to criminally investigate or prosecute any alcohol or drug abuse patient.[facility]In the event this information is protected by the Federal Confidentiality of Alcohol and Drug Abuse Patient Records regulations: The Federal rules restrict any use of the information to criminally investigate or prosecute any alcohol or drug abuse patient.[facility]In the event this information is protected by the Federal Confidentiality of Alcohol and Drug Abuse Patient Records regulations: The Federal rules restrict any use of the information to criminally investigate or prosecute any alcohol or drug abuse patient.[facility]In the event this information is protected by the Federal Confidentiality of Alcohol and Drug Abuse Patient Records regulations: The Federal rules restrict any use of the information to criminally investigate or prosecute any alcohol or drug abuse patient.[facility]In the event this information is protected by the Federal Confidentiality of Alcohol and Drug Abuse Patient Records regulations: The Federal rules restrict any use of the information to criminally investigate or prosecute any alcohol or drug abuse patient.[facility]In the event this information is protected by the Federal Confidentiality of Alcohol and Drug Abuse Patient Records regulations: The Federal rules restrict any use of the information to criminally investigate or prosecute any alcohol or drug abuse patient.[facility]In the event this information is protected by the Federal Confidentiality of Alcohol and Drug Abuse Patient Records regulations: The Federal rules restrict any use of the information to criminally investigate or prosecute any alcohol or drug abuse patient.[facility]In the event this information is protected by the Federal Confidentiality of Alcohol and Drug Abuse Patient Records regulations: The Federal rules restrict any use of the information to criminally investigate or prosecute any alcohol or drug abuse patient.[facility]In the event this information is protected by the Federal Confidentiality of Alcohol and Drug Abuse Patient Records regulations: The Federal rules restrict any use of the information to criminally investigate or prosecute any alcohol or drug abuse patient.[facility]In the event this information is protected by the Federal Confidentiality of Alcohol and Drug Abuse Patient Records regulations: The Federal rules restrict any use of the information to criminally investigate or prosecute any alcohol or drug abuse patient.[facility]In the event this information is protected by the Federal Confidentiality of Alcohol and Drug Abuse Patient Records regulations: The Federal rules restrict any use of the information to criminally investigate or prosecute any alcohol or drug abuse patient.[facility]In the event this information is protected by the Federal Confidentiality of Alcohol and Drug Abuse Patient Records regulations: The Federal rules restrict any use of the information to criminally investigate or prosecute any alcohol or drug abuse patient.[facility]In the event this information is protected by the Federal Confidentiality of Alcohol and Drug Abuse Patient Records regulations: The Federal rules restrict any use of the information to criminally investigate or prosecute any alcohol or drug abuse patient.[facility]In the event this information is protected by the Federal Confidentiality of Alcohol and Drug Abuse Patient Records regulations: The Federal rules restrict any use of the information to criminally investigate or prosecute any alcohol or drug abuse patient.[facility]In the event this information is protected by the Federal Confidentiality of Alcohol and Drug Abuse Patient Records regulations: The Federal rules restrict any use of the information to criminally investigate or prosecute any alcohol or drug abuse patient.[facility]In the event this information is protected by the Federal Confidentiality of Alcohol and Drug Abuse Patient Records regulations: The Federal rules restrict any use of the information to criminally investigate or prosecute any alcohol or drug abuse patient.[facility] HospitalIn the event this information is protected by the Federal Confidentiality of Alcohol and Drug Abuse Patient Records regulations: The Federal rules restrict any use of the information to criminally investigate or prosecute any alcohol or drug abuse patient.[facility] HospitalIn the event this information is protected by the Federal Confidentiality of Alcohol and Drug Abuse Patient Records regulations: The Federal rules restrict any use of the information to criminally investigate or prosecute any alcohol or drug abuse patient.[facility] HospitalIn the event this information is protected by the Federal Confidentiality of Alcohol and Drug Abuse Patient Records regulations: The Federal rules restrict any use of the information to criminally investigate or prosecute any alcohol or drug abuse patient.[facility] HospitalIn the event this information is protected by the Federal Confidentiality of Alcohol and Drug Abuse Patient Records regulations: The Federal rules restrict any use of the information to criminally investigate or prosecute any alcohol or drug abuse patient.[facility] HospitalIn the event this information is protected by the Federal Confidentiality of Alcohol and Drug Abuse Patient Records regulations: The Federal rules restrict any use of the information to criminally investigate or prosecute any alcohol or drug abuse patient.[facility] HospitalIn the event this information is protected by the Federal Confidentiality of Alcohol and Drug Abuse Patient Records regulations: The Federal rules restrict any use of the information to criminally investigate or prosecute any alcohol or drug abuse patient.[facility] HospitalIn the event this information is protected by the Federal Confidentiality of Alcohol and Drug Abuse Patient Records regulations: The Federal rules restrict any use of the information to criminally investigate or prosecute any alcohol or drug abuse patient.[facility] HospitalIn the event this information is protected by the Federal Confidentiality of Alcohol and Drug Abuse Patient Records regulations: The Federal rules restrict any use of the information to criminally investigate or prosecute any alcohol or drug abuse patient.[facility] HospitalIn the event this information is protected by the Federal Confidentiality of Alcohol and Drug Abuse Patient Records regulations: The Federal rules restrict any use of the information to criminally investigate or prosecute any alcohol or drug abuse patient.[facility] HospitalIn the event this information is protected by the Federal Confidentiality of Alcohol and Drug Abuse Patient Records regulations: The Federal rules restrict any use of the information to criminally investigate or prosecute any alcohol or drug abuse patient.[facility] HospitalIn the event this information is protected by the Federal Confidentiality of Alcohol and Drug Abuse Patient Records regulations: The Federal rules restrict any use of the information to criminally investigate or prosecute any alcohol or drug abuse patient.[facility] HospitalIn the event this information is protected by the Federal Confidentiality of Alcohol and Drug Abuse Patient Records regulations: The Federal rules restrict any use of the information to criminally investigate or prosecute any alcohol or drug abuse patient.[facility] HospitalIn the event this information is protected by the Federal Confidentiality of Alcohol and Drug Abuse Patient Records regulations: The Federal rules restrict any use of the information to criminally investigate or prosecute any alcohol or drug abuse patient.[facility] HospitalIn the event this information is protected by the Federal Confidentiality of Alcohol and Drug Abuse Patient Records regulations: The Federal rules restrict any use of the information to criminally investigate or prosecute any alcohol or drug abuse patient.[facility] HospitalIn the event this information is protected by the Federal Confidentiality of Alcohol and Drug Abuse Patient Records regulations: The Federal rules restrict any use of the information to criminally investigate or prosecute any alcohol or drug abuse patient.[facility] HospitalIn the event this information is protected by the Federal Confidentiality of Alcohol and Drug Abuse Patient Records regulations: The Federal rules restrict any use of the information to criminally investigate or prosecute any alcohol or drug abuse patient.[facility] HospitalIn the event this information is protected by the Federal Confidentiality of Alcohol and Drug Abuse Patient Records regulations: The Federal rules restrict any use of the information to criminally investigate or prosecute any alcohol or drug abuse patient.[facility] HospitalIn the event this information is protected by the Federal Confidentiality of Alcohol and Drug Abuse Patient Records regulations: The Federal rules restrict any use of the information to criminally investigate or prosecute any alcohol or drug abuse patient.[facility] HospitalIn the event this information is protected by the Federal Confidentiality of Alcohol and Drug Abuse Patient Records regulations: The Federal rules restrict any use of the information to criminally investigate or prosecute any alcohol or drug abuse patient.[facility] HospitalIn the event this information is protected by the Federal Confidentiality of Alcohol and Drug Abuse Patient Records regulations: The Federal rules restrict any use of the information to criminally investigate or prosecute any alcohol or drug abuse patient.[facility] HospitalIn the event this information is protected by the Federal Confidentiality of Alcohol and Drug Abuse Patient Records regulations: The Federal rules restrict any use of the information to criminally investigate or prosecute any alcohol or drug abuse patient.[facility] HospitalIn the event this information is protected by the Federal Confidentiality of Alcohol and Drug Abuse Patient Records regulations: The Federal rules restrict any use of the information to criminally investigate or prosecute any alcohol or drug abuse patient.[facility] HospitalIn the event this information is protected by the Federal Confidentiality of Alcohol and Drug Abuse Patient Records regulations: The Federal rules restrict any use of the information to criminally investigate or prosecute any alcohol or drug abuse patient.[facility] HospitalIn the event this information is protected by the Federal Confidentiality of Alcohol and Drug Abuse Patient Records regulations: The Federal rules restrict any use of the information to criminally investigate or prosecute any alcohol or drug abuse patient.[facility] HospitalIn the event this information is protected by the Federal Confidentiality of Alcohol and Drug Abuse Patient Records regulations: The Federal rules restrict any use of the information to criminally investigate or prosecute any alcohol or drug abuse patient.[facility] HospitalIn the event this information is protected by the Federal Confidentiality of Alcohol and Drug Abuse Patient Records regulations: The Federal rules restrict any use of the information to criminally investigate or prosecute any alcohol or drug abuse patient.[facility] HospitalIn the event this information is protected by the Federal Confidentiality of Alcohol and Drug Abuse Patient Records regulations: The Federal rules restrict any use of the information to criminally investigate or prosecute any alcohol or drug abuse patient.[facility] HospitalIn the event this information is protected by the Federal Confidentiality of Alcohol and Drug Abuse Patient Records regulations: The Federal rules restrict any use of the information to criminally investigate or prosecute any alcohol or drug abuse patient.[facility] HospitalIn the event this information is protected by the Federal Confidentiality of Alcohol and Drug Abuse Patient Records regulations: The Federal rules restrict any use of the information to criminally investigate or prosecute any alcohol or drug abuse patient.[facility] HospitalIn the event this information is protected by the Federal Confidentiality of Alcohol and Drug Abuse Patient Records regulations: The Federal rules restrict any use of the information to criminally investigate or prosecute any alcohol or drug abuse patient.[facility] HospitalIn the event this information is protected by the Federal Confidentiality of Alcohol and Drug Abuse Patient Records regulations: The Federal rules restrict any use of the information to criminally investigate or prosecute any alcohol or drug abuse patient.[facility] HospitalIn the event this information is protected by the Federal Confidentiality of Alcohol and Drug Abuse Patient Records regulations: The Federal rules restrict any use of the information to criminally investigate or prosecute any alcohol or drug abuse patient.[facility] HospitalIn the event this information is protected by the Federal Confidentiality of Alcohol and Drug Abuse Patient Records regulations: The Federal rules restrict any use of the information to criminally investigate or prosecute any alcohol or drug abuse patient.[facility] HospitalIn the event this information is protected by the Federal Confidentiality of Alcohol and Drug Abuse Patient Records regulations: The Federal rules restrict any use of the information to criminally investigate or prosecute any alcohol or drug abuse patient.[facility] HospitalIn the event this information is protected by the Federal Confidentiality of Alcohol and Drug Abuse Patient Records regulations: The Federal rules restrict any use of the information to criminally investigate or prosecute any alcohol or drug abuse patient.[facility] HospitalIn the event this information is protected by the Federal Confidentiality of Alcohol and Drug Abuse Patient Records regulations: The Federal rules restrict any use of the information to criminally investigate or prosecute any alcohol or drug abuse patient.[facility] HospitalIn the event this information is protected by the Federal Confidentiality of Alcohol and Drug Abuse Patient Records regulations: The Federal rules restrict any use of the information to criminally investigate or prosecute any alcohol or drug abuse patient.[facility] HospitalIn the event this information is protected by the Federal Confidentiality of Alcohol and Drug Abuse Patient Records regulations: The Federal rules restrict any use of the information to criminally investigate or prosecute any alcohol or drug abuse patient.[facility] Reason for Visit (unrecogniz ed section and content) Reason Comments Orders Reason Onset Date Comments Refill Request 05/29/2021 Specialty Diagnoses / Procedures Referred By Di hardy Referred To Contact MR IMAGING Diagnoses Liver mass R16.0 (ICD-10-CM) - Liver mass Procedures MRI LIVER WO/W IVCON MRI,ABDOMEN,W&WO CONTRS MRI LIVER WO/W IVCON Samson Hogan MD [address] [place] [address] Mr Imaging Referral ID Status Reason Start [...] 03/03/2022 Reason Comments Appointment Patient called to ct deniz sure we have the right number [...] NECK REAL TIME IMGE Jovany Saunders PA-C [address] [place] [address] [place] [id number] Referral ID Status Reason Start Date Expiration Date V isits Requested Visits Authorized [id number] Closed Auto-Generate d Referral 05/19/2022 06/18/2023 [address] Specialty Diagnoses / Procedures Referred By Contac t Referred To Contact CT IMAGING Diagnoses Lung nodules Cigarette smoker History of renal cell cancer Procedures CT CHEST WO IVCON DIAGNOSTIC COMPUTED TOMOGRAPHY THORAX W/O Patti Goss MD [address] [place] [address] [place] [id number] Referral ID Status Reason Start Date Expiration Date V isits Requested Visits Authorized [id number] Closed Auto-Generate d Referral 03/16/2022 05/15/2022 1 [...] Up Specialty Diagnoses / Procedures Referred By Di hardy Referred To Contact CT IMAGING Diagnoses Lung nodules Ground glass opacity present on imaging of lung Procedures CT CHEST WO IVCON DIAGNOSTIC COMPUTED TOMOGRAPHY THORAX W/O Patti Goss MD [address] [place] [address] [place] [id number] Referral ID Status Reason Start Date Expiration Date V isits Requested Visits Authorized [id number] Closed Auto-Generate d Referral 05/06/2023 07/05/2023 1 [...] W/WO MXML VOL VNTJ Pilar Cardoza, PA-C [address] [place] [address] Phone: tel: fax: Respiratory [address] [address] Referral ID Status Reason Start Date Expiration Date V isits Requested Visits Authorized [id number] Closed Auto-Generate d Referral 08/11/2023 09/09/2024 1 1 Specialty Diagnoses / Procedures Referred By Contac t Referred To Contact [facility] Diagnoses Chronic obstructive pulmonary disease, unspecified COPD type (HCC) Procedures OXIMETRY WITH AMBULATION NONINVASIVE EAR/PULSE OXIMETRY MULTIPLE Pilar Meza PA-C [address] [place] [address] Phone: tel: fax: Respiratory [address] [address] Referral ID Status Reason Start Date Expiration Date V isits Requested Visits Authorized [id number] Closed Auto-Generate d Referral 08/11/2023 09/09/2024 1 [...] Care Teams (unrecognized sec tion and content) Manager Cleaning Relationship Specialty Start Date End Date Samson Hogan MD [address] [place], [place] [id number] PCP - General Family Practice 11/10/12 Mat Davidson, [facility] [address] [place], [place] [id number] Pharmacist Pharmacy 12/28/18 Manager Cleaning Relationship Specialty Start Date End Date Samson Hogan MD [address] [place] [address] PCP - General Family Practice 11/10/12 Mat Davidson, [facility] [address] [facility] [place] [address] Pharmacist Pharmacy 12/28/18 Manager Cleaning Relationship Specialty Start Date End Date Samson Hogan MD [address] [place] [address] PCP - General Family Practice 11/10/12 Mat Davidson, [facility] [address] [facility] [place] [place] [address] Pharmacist Pharmacy 12/28/18 Manager Cleaning Relationship Specialty Start Date End Date Samson Hogan MD [address] [facility] [place] [place] [address] PCP - General Family Practice 11/10/12 Mat Davidson, [facility] [address] [facility] [place] [place] [address] Pharmacist Pharmacy 12/28/18 Manager Cleaning Relationship Specialty Start Date End Date Samson Hogan MD [address] [facility] [place] [address] PCP - General Family Practice 11/10/12 Mat Davidson, [facility] [address] [facility] [place] [place] [address] Pharmacist Pharmacy 12/28/18 Manager Cleaning Relationship Specialty Start Date End Date Samson Hogan MD [address] [place] [address] PCP - General Family Practice 11/10/12 Mat Davidson, [facility] [address] [facility] [place] [place] [address] Pharmacist Pharmacy 12/28/18 Manager Cleaning Relationship Specialty Start Date End Date Samsno Hogan MD [address] [place] [address] PCP - General Family Practice 11/10/12 [facility] [address] [facility] [place] [place] [address] Pharmacist Pharmacy 12/28/18 Manager Cleaning Relationship Specialty Start Date End Date Samson Hogan MD [address] [facility] [place] [address] PCP - General Family Practice 11/10/12 [facility] [address] [facility] [place] [place] [address] Pharmacist Pharmacy 12/28/18 Manager Cleaning Relationship Specialty Start Date End Date Samson Hogan MD [address] [facility] [place] [place] [address] PCP - General Family Practice 11/10/12 Mat Davidson, [facility] [address] [facility] [place] [address] Pharmacist Pharmacy 12/28/18 Manager Cleaning Relationship Specialty Start Date End Date Jovany Rizzo PA-C [address] [facility] [place] [place] [address] PCP - General Family Practice 07/10/21 Mat Davidson, [facility] [address] [facility] [place] [address] Pharmacist Pharmacy 12/28/18 Manager Cleaning Relationship Specialty Start Date End Date Jovany Rizzo PA-C [address] [facility] [place] [place] [address] PCP - General Family Practice 07/10/21 Mat Davidson, [facility] [address] [place] [address] Pharmacist Pharmacy 12/28/18 Manager Cleaning Relationship Specialty Start Date End Date Samson Hogan MD [address] [place] [address] PCP - General Family Practice 11/10/12 07/09/21 Mat Davidson, [facility] [address] [place] [address] Pharmacist Pharmacy 12/28/18 Manager Cleaning Relationship Specialty Start Date End Date Jovany Rizzo PA-C [address] [place] [address] PCP - General Family Practice 07/10/21 [facility] [address] [place] [address] Pharmacist Pharmacy 12/28/18 Manager Cleaning Relationship Specialty Start Date End Date Jovany Rizzo PA-C [address] [place] [address] PCP - General Family Practice 07/10/21 Mat Davidson, [facility] [address] [place] [address] Pharmacist Pharmacy 12/28/18 Manager Cleaning Relationship Specialty Start Date End Date Jovany Rizzo PA-C [address] [place] [address] PCP - General Family Practice 07/10/21 Mat Davidson, [facility] [address] [facility] [place] [place] [address] Pharmacist Pharmacy 12/28/18 Manager Cleaning Relationship Specialty Start Date End Date Jovany Rizzo PA-C [address] [place] [address] PCP - General Family Practice 07/10/21 [facility] [address] [facility] [place] [address] Pharmacist Pharmacy 12/28/18 Manager Cleaning Relationship Specialty Start Date End Date Jovany Rizzo PA-C [address] [facility] [place] [address] PCP - General Family Practice 07/10/21 [facility], [facility] [address] [facility] [place] [address] Pharmacist Pharmacy 12/28/18 Manager Cleaning Relationship Specialty Start Date End Date Jovany Rizzo PA-C [address] [facility] [place] [address] PCP - General Family Practice 07/10/21 [facility], [facility] [address] [place] [address] Pharmacist Pharmacy 12/28/18 Manager Cleaning Relationship Specialty Start Date End Date Jovany Rizzo PA-C [address] [facility] [place] [address] PCP - General Family Practice 07/10/21 [facility], [facility] [address] [facility] [place] [address] Pharmacist Pharmacy 12/28/18 Manager Cleaning Relationship Specialty Start Date End Date Jovany Rizzo PA-C [address] [facility] [place] [address] PCP - General Family Practice 07/10/21 [facility], [facility] [address] [place] [address] Pharmacist Pharmacy 12/28/18 Manager Cleaning Relationship Specialty Start Date End Date Jovany Rizzo PA-C [address] [facility] [place] [address] PCP - General Family Medicine 07/10/21 Stuart Mat, [facility] [address] [facility] [place] [address] Pharmacist Pharmacy 12/28/18 Manager Cleaning Relationship Specialty Start Date End Date Jovany Rizzo PA-C [address] [facility] [place] [address] PCP - General Family Medicine 07/10/21 Mat Davidson, [facility] [address] [facility] [place] [address] Pharmacist Pharmacy 12/28/18 Manager Cleaning Relationship Specialty Start Date End Date Jovany Rizzo PA-C [address] [facility] [place] [address] PCP - General Family Medicine 07/10/21 Mat Davidson, [facility] [address] [facility] [place] [address] Pharmacist Pharmacy 12/28/18 Manager Cleaning Relationship Specialty Start Date End Date Jovany Rizzo PA-C [address] [facility] [place] [address] PCP - General Family Medicine 07/10/21 Mat Davidson, [facility] [address] [facility] [place] [address] Pharmacist Pharmacy 12/28/18 Manager Cleaning Relationship Specialty Start Date End Date Jovany Rizzo PA-C [address] [facility] [place] [address] PCP - General Family Medicine 07/10/21 aMt Davidson, [facility] [address] [facility] [place] [address] Pharmacist Pharmacy 12/28/18 Manager Cleaning Relationship Specialty Start Date End Date Jovany Rizzo PA-C [address] [facility] [place] [address] PCP - General Family Medicine 07/10/21 Mat Davidson, [facility] [address] [facility] [place] [address] Pharmacist Pharmacy 12/28/18 Manager Cleaning Relationship Specialty Start Date End Date Jovany Rizzo PA-C [address] [place] [address] PCP - General Family Medicine 07/10/21 Mat Davidson, [facility] [address] [place] [address] Pharmacist Pharmacy 12/28/18 Manager Cleaning Relationship Specialty Start Date End Date Jovany Rizzo PA-C [address] [place] [address] PCP - General Family Medicine 07/10/21 Mat Davidson, [facility] [address] [facility] [place] [address] Pharmacist Pharmacy 12/28/18 Manager Cleaning Relationship Specialty Start Date End Date Jovany Rizzo PA-C [address] [facility] [place] [address] PCP - General Family Medicine 07/10/21 Mat Davidson, [facility] [address] [facility] [place] [address] Pharmacist Pharmacy 12/28/18 Manager Cleaning Relationship Specialty Start Date End Date Jovany Rizzo PA-C [address] [place] [address] PCP - General Family Medicine 07/10/21 Mat Davidson, [facility] [address] [facility] [place] [address] Pharmacist Pharmacy 12/28/18 Manager Cleaning Relationship Specialty Start Date End Date Jovany Rizzo PA-C [address] [facility] [place] [address] PCP - General Family Medicine 07/10/21 Mat Davidson, [facility] [address] [facility] [place] [address] Pharmacist Pharmacy 12/28/18 Manager Cleaning Relationship Specialty Start Date End Date Jovany Rizzo PA-C [address] [facility] [place] [address] PCP - General Family Medicine 07/10/21 LeifBen barahonabell, [facility] [address] [facility] [place] [address] Pharmacist Pharmacy 12/28/18 Manager Cleaning Relationship Specialty Start Date End Date Jovany Rizzo PA-C [address] [facility] [place] [address] PCP - General Family Medicine 07/10/21 Mat Davidson, [facility] [address] [facility] [place] [address] Pharmacist Pharmacy 12/28/18 Manager Cleaning Relationship Specialty Start Date End Date Jovany Rizzo PA-C [address] [facility] [place] [address] PCP - General Family Medicine 07/10/21 StuartBenbell, [facility] [address] [facility] [place] [address] Pharmacist Pharmacy 12/28/18 Manager Cleaning Relationship Specialty Start Date End Date Jovany Rizzo PA-C [address] [facility] [place] [place] [address] PCP - General Family Medicine 07/10/21 [facility], [facility] [address] [place] [address] Pharmacist Pharmacy 12/28/18 Manager Cleaning Relationship Specialty Start Date End Date Jovany Rizzo PA-C [address] [place] [address] PCP - General Family Medicine 07/10/21 Mat Davidson, [facility] [address] [place] [address] Pharmacist Pharmacy 12/28/18 Manager Cleaning Relationship Specialty Start Date End Date Jovany Rizzo PA-C [address] [address] PCP - General Family Medicine 07/10/21 LeifMat barahona, [facility] [address] [place] [address] Pharmacist Pharmacy 12/28/18 Manager Cleaning Relationship Specialty Start Date End Date Jovany Rizzo PA-C [address] [place] [address] PCP - General Family Medicine 07/10/21 LeifMat barahona, [facility] [address] [place] [address] Pharmacist Pharmacy 12/28/18 Manager Cleaning Relationship Specialty Start Date End Date Jovany Rizzo PA-C [address] [place] [address] PCP - General Family Medicine 07/10/21 Mat Davidson, [facility] [address] [place] [address] Pharmacist Pharmacy 12/28/18 Manager Cleaning Relationship Specialty Start Date End Date Jovany Rizzo PA-C [address] [facility] [place] [address] PCP - General Family Medicine 07/10/21 [facility] [address] [facility] [place] [address] Pharmacist Pharmacy 12/28/18 Manager Cleaning Relationship Specialty Start Date End Date Jovany Rizzo PA-C [address] [facility] [place] [address] PCP - General Family Medicine 07/10/21 StuartBenbell, [facility] [address] [facility] [place] [address] Pharmacist Pharmacy 12/28/18 Manager Cleaning Relationship Specialty Start Date End Date Jovany Rizzo PA-C [address] [facility] [place] [address] PCP - General Family Medicine 07/10/21 [facility], [facility] [address] [facility] [place] [address] Pharmacist Pharmacy 12/28/18 Manager Cleaning Relationship Specialty Start Date End Date Jovany Rizzo PA-C [address] [facility] [place] [address] PCP - General Family Medicine 07/10/21 LeifBen barahonabell, [facility] [address] [facility] [place] [address] Pharmacist Pharmacy 12/28/18 Manager Cleaning Relationship Specialty Start Date End Date Jovany Rizzo PA-C [address] [facility] [place] [address] PCP - General Family Medicine 07/10/21 Mat Davidson, [facility] [address] [facility] [place] [address] Pharmacist Pharmacy 12/28/18 Manager Cleaning Relationship Specialty Start Date End Date Jovany Rizzo PA-C [address] [facility] [place] [address] PCP - General Family Medicine 07/10/21 [facility], [facility] [address] [facility] [place] [address] Pharmacist Pharmacy 12/28/18 Manager Cleaning Relationship Specialty Start Date End Date Jovany Rizzo PA-C [address] [facility] [place] [address] PCP - General Family Medicine 07/10/21 [facility], [facility] [address] [facility] [place] [address] Pharmacist Pharmacy 12/28/18 Manager Cleaning Relationship Specialty Start Date End Date Jovany Rizzo PA-C [address] [facility] [place] [address] PCP - General Family Medicine 07/10/21 [facility], [facility] [address] [facility] [place] [address] Pharmacist Pharmacy 12/28/18 Manager Cleaning Relationship Specialty Start Date End Date Jovany Rizzo PA-C [address] [facility] [place] [address] PCP - General Family Medicine 07/10/21 [facility], [facility] [address] [facility] [place] [address] Pharmacist Pharmacy 12/28/18 Manager Cleaning Relationship Specialty Start Date End Date Jovany Rizzo PA-C [address] [facility] [place] [address] PCP - General Family Medicine 07/10/21 Mat Davidson, [facility] [address] [place] [address] Pharmacist Pharmacy 12/28/18 Manager Cleaning Relationship Specialty Start Date End Date Jovany Rizzo PA-C [address] [place] [address] PCP - General Family Medicine 07/10/21 Mat Davidson, [facility] [address] [place] [address] Pharmacist Pharmacy 12/28/18 Manager Cleaning Relationship Specialty Start Date End Date Jovany Rizzo PA-C [address] [place] [address] PCP - General Family Medicine 07/10/21 Mat Davidson, [facility] Pharmacist Pharmacy 12/28/18 Manager Cleaning Relationship Specialty Start Date End Date Jovany Rizzo PA-C [address] [place] [address] PCP - General Family Medicine 07/10/21 LeifMat barahona, [facility] Pharmacist Pharmacy 12/28/18 Manager Cleaning Relationship Specialty Start Date End Date Jovany Rizzo PA-C [address] [place] [address] PCP - General Family Medicine 07/10/21 Ben Davidsoni, [facility] Pharmacist Pharmacy 12/28/18 Manager Cleaning Relationship Specialty Start Date End Date Jovany Rizzo PA-C [address] [place], [place] [address] PCP - General Family Medicine 07/10/21 Mat Davidson [facility] Pharmacist Pharmacy 12/28/18 Team Status: Active Member Role Status Dates Dr. Samson Hogan MD Family Provider Active Dr. Samson Hogan MD Primary Care Provider Active Team Status: Active Member Role Status Dates Dr. Samson Hogan MD Primary Care Provider Active Dr. Desmond Infante MD Emergency Provider Active Dr. Chelsi Warner MD Admit Provider, Attending Provider, Other Provider Active Team Status: Active Member Role Status Dates Dr. Samson Hogan MD Primary Care Provider Active Dr. Desmond Infante MD Emergency Provider Active Dr. Chelsi Warner MD Admit Provider, Attending Prov ider Active Team Status: Active Member Role Status Dates Dr. Samson Hogan MD Primary Care Provider Active Dr. Desmond Infante MD Emergency Provider Active Dr. Chelsi Warner MD Admit Provider, Other Provider Active Dr. Russell Flower MD Attending Provider, Other Provid er Active Team Status: Inactive Member Role Status Dates Dr. Samson Hogan MD Primary Care Provider Active Dr. Desmond Infante MD Emergency Provider Active Dr. Chelsi Warner MD Admit Provider, Other Provider Active Dr. Russell Flower MD Attending Provider Active Manager Cleaning Relationship Specialty Start Date End Date Jovany Rizzo PA-C [address] [place] [address] PCP - General Family Medicine 07/10/21 Manager Cleaning Relationship Specialty Start Date End Date Jovany Rizzo PA-C [address] [place], [place] [id number] PCP - General Family Medicine 07/10/21 Manager Cleaning Relationship Specialty Start Date End Date Jovany Rizzo PA-C [address] [place], [place] [address] PCP - General Family Medicine 07/10/21 Manager Cleaning Relationship Specialty Start Date End Date Jovany Rizzo PA-C [address] [place] [address] PCP - General Family Medicine 07/10/21 Manager Cleaning Relationship Specialty Start Date End Date Jovany Rizzo PA-C [address] [place] [address] PCP - General Family Medicine 07/10/21 Manager Cleaning Relationship Specialty Start Date End Date Jovany Rizzo PA-C [address] [place] [address] PCP - General Family Medicine 07/10/21 Manager Cleaning Relationship Specialty Start Date End Date Jovany Rizzo PA-C [address] [place] [address] PCP - General Family Medicine 07/10/21 Manager Cleaning Relationship Specialty Start Date End Date Jovany Rizzo PA-C [address] [place] [address] PCP - General Family Medicine 07/10/21 Manager Cleaning Relationship Specialty Start Date End Date Jovany Rizzo PA-C [address] [place] [address] PCP - General Family Medicine 07/10/21 Manager Cleaning Relationship Specialty Start Date End Date Jovany Rizzo PA-C [address] [place] [address] PCP - General Family Medicine 07/10/21 Manager Cleaning Relationship Specialty Start Date End Date Jovany Rizzo PA-C [address] [place] [address] PCP - General Family Medicine 07/10/21 Manager Cleaning Relationship Specialty Start Date End Date Jovany Rizzo PA-C [address] [place] [address] PCP - General Family Medicine 07/10/21 Manager Cleaning Relationship Specialty Start Date End Date Jovany Rizzo PA-C [address] [place] [address] PCP - General Family Medicine 07/10/21 Manager Cleaning Relationship Specialty Start Date End Date Jovany Rizzo PA-C [address] [place] [address] PCP - General Family Medicine 07/10/21 Manager Cleaning Relationship Specialty Start Date End Date Jovany Rizzo PA-C [address] [place] [address] PCP - General Family Medicine 07/10/21 Manager Cleaning Relationship Specialty Start Date End Date Jovany Rizzo PA-C [address] [place] [address] PCP - General Family Medicine 07/10/21 Manager Cleaning Relationship Specialty Start Date End Date Jovany Rizzo PA-C [address] [place] [address] PCP - General Family Medicine 07/10/21 Manager Cleaning Relationship Specialty Start Date End Date Jovany Rizzo PA-C [address] [place] [address] PCP - General Family Medicine 07/10/21 Manager Cleaning Relationship Specialty Start Date End Date Jovany Rizzo PA-C [address] [place] [address] PCP - General Family Medicine 07/10/21 Manager Cleaning Relationship Specialty Start Date End Date Samson Hogan MD [address] [place] [address] PCP - General Family Medicine 11/10/12 07/09/21 Mat Davidson [facility] [address] [place] [address] Pharmacist Pharmacy 12/28/18 03/15/23 Manager Cleaning Relationship Specialty Start Date End Date Rodriguez Rizzo PA-C PCP - General Family Medicine 07/10/21 Manager Cleaning Relationship Specialty Start Date End Date Rodriguez Rizzo PA-C PCP - General Family Medicine 07/10/21 Lu Greene, [employer] [address] [place] [address] Suede Cleaner Family [facility] 01/20/24 Mary Morales FRONTLOAD DRIVER[employer] [address] [place] [address] Suede Cleaner Family Medicine 01/20/24 Manager Cleaning Relationship Specialty Start Date End Date Rodriguez Rizzo PA-C PCP - General Family Medicine 07/10/21 Lu Greene APRN.[employer] [address] [place] [address] Suede Cleaner Family [facility] 01/20/24 Mary Morales FRONTLOAD DRIVER.[employer] [address] [place] [address] S[employer] Cleaner Family [facility] 01/20/24 Manager Cleaning Relationship Specialty Start Date End Date Rodriguez Rizzo PA-C PCP - General Family Medicine 07/10/21 Lu Greene [employer] [address] [place] [address] Suede Cleaner Family Medicine 01/20/24 Mary Morales APRN.[employer]CH[employer] [address] [place] [address] Suede Cleaner Family [facility] 01/20/24 Manager Cleaning Relationship Specialty Start Date End Date Lu Greene, FRONTLOAD DRIVER[employer] [address] [place] [address] PCP - General Family Medicine 04/16/24 Lu Greene, FRONTLOAD [employer]IVER[employer] [address] [place] [address] Suede Cleaner Family [facility] 01/20/24 Mary Morales APRN.[employer]CH[employer] [address] [place] [address] Suede Cleaner Family Medicine 01/20/24 Manager Cleaning Relationship Specialty Start Date End Date Lu Greene FRONTLOAD DRIVER.[employer]CH[employer] [address] [place] [address] PCP - General Family Medicine 04/16/24 Lu Greene, FRONTLOAD DRIVER[employer]CH[employer] [address] [place] [address] Suede Cleaner Family Medicine 01/20/24 Mary Morales APRN.[employer]CH[employer] [address] [place] [address] Suede Cleaner Family Medicine 01/20/24 Manager Cleaning Relationship Specialty Start Date End Date Lu Greene, FRONTLOAD DRIVER[employer]CH[employer] [address] [place] [address] PCP - General Family Medicine 04/16/24 Lu Greene, FRONTLOAD DRIVER[employer]CH[employer] [address] [place] [address] Suede Cleaner Family Medicine 01/20/24 Mary Morales, FRONTLOAD DRIVER[employer]CH[employer] [address] [place] [address] Suede Cleaner Family Medicine 01/20/24 Manager Cleaning Relationship Specialty Start Date End Date Lu Greene, FRONTLOAD DRIVER[employer]CH[employer] [address] [place] [address] PCP - General Family Medicine 04/16/24 Lu Greene, FRONTLOAD DRIVER[employer] ARCH[employer] [address] [place] [address] Suede Cleaner Family Medicine 01/20/24 Mary Morales, FRONTLOAD DRIVER[employer] ARCH[employer]ECT [address] [place] [address] Suede Cleaner Family Medicine 01/20/24 Manager Cleaning Relationship Specialty Start Date End Date Lu Greene, FRONTLOAD DRIVER[employer] ARCH[employer] [address] [place] [address] PCP - General Family Medicine 04/16/24 Manager Cleaning Relationship Specialty Start Date End Date Lu Greene, FRONTLOAD DRIVER[employer] ARCH[employer]ECT [address] [place] [address] PCP - General Family Medicine 04/16/24 Manager Cleaning Relationship Specialty Start Date End Date Lu Greene, FRONTLOAD DRIVER.[employer] ARCHITECT [address] [place] [address] PCP - General Family Medicine 04/16/24 Manager Cleaning Relationship Specialty Start Date End Date Lu Greene, FRONTLOAD DRIVER[employer] ARCHITECT [address] [place] [address] PCP - General Family Medicine 04/16/24 Manager Cleaning Relationship Specialty Start Date End Date Samson Hogan MD [address] [place] [address] PCP - General Family Medicine 06/05/24 Manager Cleaning Relationship Specialty Start Date End Date Samson Hogan MD [address] [place] [address] PCP - General Family Medicine 06/05/24 Manager Cleaning Relationship Specialty Start Date End Date Samson Hogan MD [address] [place] [address] PCP - General Family Medicine 06/05/24 Manager Cleaning Relationship Specialty Start Date End Date Samson Hogan MD [address] [place] [address] PCP - General Family Medicine 06/05/24 Manager Cleaning Relationship Specialty Start Date End Date Samson Hogan MD [address] [place] [address] PCP - General Family Medicine 06/05/24 Lu Greene, FRONTLOAD DRIVER[employer] ARCHITECT [address] [place] [address] Suede Cleaner Family Medicine 06/28/24 Mary Morales FRONTLOAD DRIVER.[employer] ARCH[employer]ECT [address] [place] [address] Suede Cleaner Family Medicine 06/28/24 Manager Cleaning Relationship Specialty Start Date End Date Samson Hogan MD [address] [place] [address] PCP - General Family Medicine 06/05/24 Lu Greene FRONTLOAD DRIVER.[employer] ARCHITECT [address] [place] [address] Suede Cleaner Family Medicine 06/28/24 Mary Morales FRONTLOAD DRIVER.[employer] ARCHITECT [address] [place] [address] Suede Cleaner Family Medicine 06/28/24 Manager Cleaning Relationship Specialty Start Date End Date Samson Hogan MD [address] [place] [address] PCP - General Family Medicine 06/05/24 Lu Greene, FRONTLOAD DRIVER.[employer] ARCHITECT [address] [place] [address] Suede Cleaner Family Medicine 06/28/24 Mary Morales FRONTLOAD DRIVER.[employer] ARCHITECT [address] [place] [address] Suede Cleaner Family Medicine 06/28/24 Manager Cleaning Relationship Specialty Start Date End Date Samson Hogan MD [address] [place] [address] PCP - General Family Medicine 06/05/24 Lu Greene APRN.[employer] ARCH[employer]ECT [address] [facility] [address] Suede Cleaner Family Medicine 06/28/24 Mary Morales APRN.[employer]CH[employer] [address] [place] [address] Suede Cleaner Family Medicine 06/28/24 Manager Cleaning Relationship Specialty Start Date End Date Samson Hogan MD [address] [place] [address] PCP - General Family Medicine 06/05/24 Lu Greene APRN.[employer] ARCH[employer]ECT [address] [place] [address] Suede Cleaner Family [facility] 06/28/24 Mary Morales APRN.[employer]CH[employer] [address] [place] [address] Suede Cleaner Family Medicine 06/28/24 Manager Cleaning Relationship Specialty Start Date End Date Samson Hogan MD [address] [place] [address] PCP - General Family Medicine 06/05/24 Lu Greene APRN.[employer] ARCH[employer]ECT [address] [place] [address] Suede Cleaner Family Medicine 06/28/24 Mary Morales APRN.[employer]CH[employer] [address] [place] [address] Suede Cleaner Family Medicine 06/28/24 Manager Cleaning Relationship Specialty Start Date End Date Samson Hogan MD [address] [facility] [place] [address] PCP - General Family Medicine 06/05/24 Lu Greene APRN.[employer] ARCH[employer]ECT [address] [place] [address] Suede Cleaner Family Medicine 06/28/24 Mary Morales APRN.[employer] ARCH[employer]ECT [address] [facility] [place] [address] Suede Cleaner Family Medicine 06/28/24 Manager Cleaning Relationship Specialty Start Date End Date Samson Hogan MD [address] [facility] [place] [address] PCP - General Family Medicine 06/05/24 Lu Greene FRONTLOAD DRIVER.[employer] ARCHITECT [address] [facility] [place] [address] Suede Cleaner Family Medicine 06/28/24 Mary Morales FRONTLOAD DRIVER.[employer] ARCHIT[employer] [address] [facility] [place] [address] Suede Cleaner Family Medicine 06/28/24 Manager Cleaning Relationship Specialty Start Date End Date Samson Hogan MD [address] [facility] [place] [address] PCP - General Family Medicine 06/05/24 Lu Greene FRONTLOAD DRIVER.[employer] B[employer] ARCHITECT [address] [place] [address] Suede Cleaner Family [facility] 06/28/24 Mary Morales FRONTLOAD DRIVER.[employer] ARCH[employer] [address] [place] [address] [facility] 06/28/24 Manager Cleaning Relationship Specialty Start Date End Date Samson Hogan MD [address] [place] [address] PCP - General Family Medicine 06/05/24 Lu Greene APRN.[employer] ARCHITECT [address] [place] [address] [facility] 06/28/24 Mary Morales FRONTLOAD DRIVER.[employer] ARCHITECT [address] [place] [address] [facility] 06/28/24 Manager Cleaning Relationship Specialty Start Date End Date Samson Hogan MD [address] [place] [address] PCP - General Family Medicine 06/05/24 Lu Greene FRONTLOAD DRIVER.[employer] ARCHITECT [address] [place] [address] [facility] Medicine 06/28/24 Mary Morales FRONTLOAD DRIVER.[employer] ARCH[employer] [address] [place] [address] [facility] Medicine 06/28/24 Manager Cleaning Relationship Specialty Start Date End Date Samson Hogan MD [address] [place] [address] PCP - General Family Medicine 06/05/24 Lu Greene APRN.[employer] ARCH[employer]ECT [address] [place] [address] Suede Cleaner Family Medicine 06/28/24 Mary Morales APRN.[employer]CH[employer] [address] [place] [address] [employer]uede Cleaner Family Medicine 06/28/24 Manager Cleaning Relationship Specialty Start Date End Date Lu Greene APRN.[employer]CH[employer] [address] [place] [address] [employer]uede Cleaner Family Medicine 06/28/24 Mary Morales APRN.[employer] ARCH[employer] [address] [place] [address] [employer] Cleaner Family [facility] 06/28/24 Manager Cleaning Relationship Specialty Start Date End Date Lu Greene FRONTLOAD DRIVER.[employer] ARCHITECT [address] [place] [address] [employer]e Cleaner Family [facility] 06/28/24 Mary Morales APRN.[employer] ARCH[employer] [address] [place] [address] Suede Cleaner Family Medicine 06/28/24 Manager Cleaning Relationship Specialty Start Date End Date Samson Hogan MD [address] [place] [address] PCP - General Family Medicine 06/05/24 09/10/24 Lu Greene, FRONTLOAD DRIVER.[employer] ARCH[employer]ECT [address] [place] [address] Suede Cleaner Family Medicine 06/28/24 Mary Morales FRONTLOAD DRIVER.[facility] [address] [place] [address] Suede Cleaner Family Medicine 06/28/24 Goals (unrecognized section and content) Goals [...] BE BASED ON THE PRIMARY CLINICAL RECORDS. [facility] [employer] provides no warranty or guarantee of the accuracy or completeness of information in this document.
[2025-01-05 03:54] LABS: Reflex Lactate? Y
[2025-01-05 04:34] LABS: Hematocrit 38.4 % (37-47); Hemoglobin 11.5 g/dL (12.0-15.0); Immature Granulocytes Count 0.100 X10^3/uL (0.0-0.0); Mean Corp Hgb Conc 29.9 g/dL (32-36); Mean Corpuscular Volume 88.3 fL (81-99); Mean Platelet Vol. 10.1 fl (6.2-12.0); NRBC Flagged by Analyzer 0 % (0-5); Platelet Count 187 K/mm3 (150-450); RBC Distribution Width CV 14.4 % (11.6-14.6); RBC Distribution Width SD 46.2 fl (35.1-43.9); Red Blood Count 4.35 M/mm3 (4.2-5.4); White Blood Count 17.0 K/mm3 (4.4-11.0)
[2025-01-05 04:56] LABS: AST(SGOT) 16 U/L (<=31); Alanine Aminotransfer ALT/SGPT 9 U/L (<=34); Albumin, Serum 3.0 g/dL (3.5-5.0); Alkaline Phosphatase 70 U/L (35-104); Anion Gap 8 (5-15); BUN 19 mg/dL (4-19); BUN/Creat Ratio 20.9 RATIO (10-20); Calcium,Total 8.6 mg/dL (7.6-11.0); Carbon Dioxide 34.4 mmol/L (21.0-32.0); Chloride 97 mmol/L (98-108); Estimated Creatinine Clearance 109.19 ml/min (50-250); Globulin 3.6 g/dL (2.2-4.2); Glucose 193 mg/dL (70-99); Magnesium 1.5 mg/dL (1.5-2.2); Potassium 4.2 mmol/L (3.3-5.1)
--- NOTE | 2025-01-05 04:56 | PCM.RX.CS ---
Consult Antibiotic Management Pharmacy has been consulted to manage selected antibiotic: Vancomycin Type of Intervention Type of Consult: New start Suspected Infection Suspected Infection: Sepsis Microbiology Microbiology: Microbiology 01/04/25 23:20 Mucosa - Nose SARS-CoV-2, Influenza & RSV (PCR) - Final Dosing Weight Weight used for dosin kg Estimated Creatinine Clearance Estimated Creatinine Clearance: 113 Goal Trough Goal Trough: 15-20 mcg/mL Pharmacy Plan for Drug Dosing Pharmacy Plan for Drug Dosing: Pharmacy Service will continue to monitor and adjust dosing as required. Follow-Up Labs Follow-Up Labs: Trough: Vancomycin Date/Time Labs Ordered Labs to be done on [date and time ordered]: 01/06/25 @0030
[2025-01-05] MEDS: Aspirin E.C. 81 MG Tablet PO (08:15)
[2025-01-05] MEDS: Vancomycin HCl 1,500 MG in 0.9% Normal Saline (500mL Bag) 500 ML 250 MG IV ×2 (09:21→17:34)
[2025-01-05] MEDS: Insulin Glargine-YFGN 100 UNIT/ML Pen 60 UNIT SC (09:26)
[2025-01-05] MEDS: Nystatin Ointment 1 APPLIC TOPICAL (09:27)
--- NOTE | 2025-01-05 11:21 | CASEMGMT ---
Social Work Face to Face with patient for initial transition planning/care coordination assessment. Patient is A&O x3 and answers all questions appropriately at this time. 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 Insurance: Medicaid Pharmacy: Patient utilizes [facility]. Advanced directives: Patient does not have AD and is not interested in receiving information. LNOK:. and daughter Living Situation: Patient lives at home with her and daughter. They live in her cousin basement. They enter the basement through garage and there are no steps into the house. ADL's/Prior level of functioning: The daughter helps with ADL's. Transportation: The daughter drives. DME: [facility], [facility], [place], oxygen long term/home health history: no SNF history, Patient currently has [facility] services through [facility]. Support/Community Services: [facility] Services Mental Health: anxiety and depression. She takes medication and she reported it helps. Substance abuse history: none Assessment: Patient lives at home with her and daughter. Patient has aid services 7 days a week, 4 hours a day with [facility] through [facility]. Patient wants to DC. Patient is not open to a SNF referral. PLAN: Patient wants to DC. Patient is not open to a SNF referral. FRANKI Escobar
--- NOTE | 2025-01-05 12:07 | PCMCONS.TICU ---
HPI Consult Data Date of Consult: 01/05/25 HPI Narrative HPI Narrative: JORDYN MATHEW, is a 59 F who presents [ ] [facility] Medical History GERD (gastroesophageal reflux disease) Neuropathy Anxiety and depression Chronic respiratory failure Urinary calculus Sleep apnea Panic disorder Microalbuminuria IBS (irritable bowel syndrome) HTN (hypertension) Type 2 diabetes mellitus Degenerative disc disease Tobacco dependence syndrome Morbid obesity Home Medications ?Medication ?Instructions ?Recorded ?Last Taken ?Type atenolol 50 mg tablet 50 mg PO DAILY BP 03/04/15 04/28/20 08:00 History furosemide 40 mg tablet 40 mg PO DAILY water retention 03/04/15 04/28/20 08:00 History gabapentin 300 mg capsule 300 mg PO TID nerve pain 03/04/15 04/28/20 17:00 History lisinopril 20 2 tab PO DAILY BP 03/04/15 04/28/20 08:00 History mg-hydrochlorothiazide 12.5 mg tablet venlafaxine 150 mg 150 mg PO DAILY mood 03/04/15 04/28/20 08:00 History capsule,extended release 24 hr albuterol sulfate 90 mcg/actuation 2 inh inhalation Q4H PRN Wheezing 12/26/18 Unknown History breath activated powder inhaler aspirin 81 mg tablet,delayed 81 mg PO DAILY heart health 12/26/18 04/28/20 08:00 History release (Adult Low Dose Aspirin) atorvastatin 40 mg tablet 40 mg PO QHS cholesterol 12/26/18 04/27/20 22:00 History dulaglutide 1.5 mg/0.5 mL 1.5 mg subcut FR diabetes 12/26/18 04/24/20 12:00 History subcutaneous pen injector (Trulicity) ibuprofen 800 mg tablet 800 mg PO Q6H PRN Pain Or Fever 12/26/18 Unknown History potassium chloride 10 mEq 20 meq PO DAILY supplement 12/26/18 04/28/20 08:00 History tablet,extended release (K-Tab) insulin degludec 100 unit/mL (3 83 unit SQ BID diabetes 09/01/19 04/28/20 17:00 History mL) subcutaneous pen buspirone 5 mg tablet 5 mg PO TID mood 04/28/20 04/28/20 17:00 History insulin lispro 100 unit/mL 40 unit SQ LUNCH diabetes 04/28/20 04/28/20 12:00 History subcutaneous pen insulin lispro 100 unit/mL 64 unit SQ BREAKFAST diabetes 04/28/20 04/28/20 08:00 History subcutaneous pen insulin lispro 100 unit/mL 94 unit subcut QHS diabetes 04/28/20 04/28/20 17:00 History subcutaneous pen sulfamethoxazole 800 1 tablet PO BID #10 TABLETS 04/30/20 Unknown Rx mg-trimethoprim 160 mg tablet insulin lispro 100 unit/mL 3 unit subcut DAILY 02/25/23 Unknown History subcutaneous half-unit pen (Humalog Zafar KwikPen (U-100)) insulin lispro 100 unit/mL 63 unit subcut DAILY 02/25/23 Unknown History subcutaneous half-unit pen (Humalog Zafar KwikPen (U-100)) insulin lispro 100 unit/mL 93 unit subcut QHS 02/25/23 Unknown History subcutaneous half-unit pen (Humalog Zafar KwikPen (U-100)) metformin 500 mg tablet,extended 1,000 mg PO BID 02/25/23 Unknown History release 24 hr omeprazole 20 mg capsule,delayed 20 mg PO DAILY 02/25/23 Unknown History release venlafaxine 75 mg capsule,extended 75 mg PO DAILY 02/25/23 Unknown History release 24 hr azithromycin 500 mg tablet 500 mg PO DAILY 3 days #3 tabs 02/27/23 Unknown Rx cefdinir 300 mg capsule 300 mg PO BID #10 caps 02/27/23 Unknown Rx cefdinir 300 mg capsule 300 mg PO BID #10 caps 02/27/23 Unknown Rx cefdinir 300 mg capsule 300 mg PO BID #10 caps 02/27/23 Unknown Rx prednisone 20 mg tablet 20 mg PO BID #10 tabs 02/27/23 Unknown Rx cephalexin 500 mg capsule 500 mg PO Q6 #40 CAPSULES 07/01/23 Unknown Rx hydrocodone-acetaminophen 5-325mg 1 tab PO Q6H PRN pain 5 days #14 09/04/23 Unknown Rx 5mg-325mg tabs Allergy/AdvReac Type Severity Reaction Status Date / Time tetanus and diphtheria Allergy Unknown swollen Verified 07/01/23 19:21 toxoids glands in neck that didn't decrease ketorolac tromethamine (From Allergy vivid Verified 07/01/23 19:21 Toradol) dreams morphine Allergy Itching Verified 07/01/23 19:21 Family History Aunt Diabetes Father Heart disease Sister Heart disease Grandfather Colon cancer Unknown Breast cancer Surgical History repair of r arm fx Hx of cholecystectomy History of renal stent H/O lithotripsy H/O dilation and curettage Hx of partial nephrectomy Social History household members: spouse Smoking Status: Former smoker quit status: considering quitting alcohol intake: never substance use type: does not use Objective Data Objective Data Vital Signs: Vital Signs Last response Temperature 37.4 C H 01/05/25 11:00 Temperature Source Core 01/05/25 11:00 Pulse Rate 80 01/05/25 11:09 Respiratory Rate 16 01/05/25 11:09 Respiratory Effort Normal 01/05/25 07:58 Respiratory Depth Normal 01/05/25 07:58 Respiratory Pattern Normal 01/05/25 11:09 Blood Pressure 133/71 H 01/05/25 11:00 Blood Pressure Mean 91 01/05/25 11:00 Blood Pressure Source Monitor 01/05/25 11:00 Blood Pressure Position Semi-Fowlers 01/05/25 11:00 Blood Pressure Location Right Forearm 01/05/25 11:00 Pulse Ox 93 01/05/25 11:00 Oxygen Delivery Method Nasal Cannula 01/05/25 11:00 Oxygen Flow Rate (L/min) 7 01/05/25 11:00 Fraction of Inspired Oxygen (FIO2) 40 01/05/25 07:07 I&O: I&O Last 24 Hours 01/04/25 01/05/25 01/05/25 23:59 11:59 23:59 Intake Total 3760 / 3760 Output Total 700 / 700 Balance 3060 / 3060 I&O: Total Stay 01/04/25 23:02 thru 01/05/25 11:38 Intake Total 3760 Output Total 700 Balance 3060 Current Meds Ordered / Administered: Current meds ordered / Administered Generic Name Dose Route Start Last Admin Trade Name Freq PRN Reason Stop Dose Admin Acetaminophen 650 mg 01/05/25 04:04 01/05/25 04:59 Acetaminophen 325 Mg Tablet PO 650 mg Q6H PRN PRN Administration Pain 1-10 Or Fever>100.7 Albuterol Sulfate 2.5 mg 01/05/25 04:04 Albuterol 2.5 Mg/3 Ml Vial.Neb. INHALATION Q2H PRN PRN SOB &/OR WHEEZING Albuterol/Ipratropium 3 ml 01/05/25 06:00 01/05/25 11:09 Ipratropium/Albuterol Sulfate 3 Ml Ampul.Neb INHALATION 3 ml Q4HWA.RT RU Administration Aspirin 81 mg 01/05/25 08:00 01/05/25 08:15 Aspirin E.C. 81 Mg Tablet PO 81 mg BREAKFAST RU Administration Enoxaparin Sodium 40 mg 01/05/25 10:00 01/05/25 09:26 Enoxaparin 40 Mg/0.4 Ml Syringe SC 40 mg BID RU Administration Gabapentin 300 mg 01/05/25 06:00 01/05/25 04:59 Gabapentin 300 Mg Capsule PO 300 mg TID RU Administration Glucagon 1 mg 01/05/25 04:04 Glucagon 1 Mg/Ml Syringe IM X1 PRN Hypoglycemia Protocol Guaifenesin 10 ml 01/05/25 04:04 Guaifenesin 10 Ml Udc (200mg/10ml) PO Q4H PRN PRN COUGH Hydralazine HCl 10 mg 01/05/25 04:04 Hydralazine 20 Mg/Ml Vial IV Q6H PRN PRN Greater than 160 Protocol Dextrose 250 mls @ 0 mls/hr 01/05/25 04:04 Dextrose 10%-Water IV .Q0M PRN HYPOGLYCEMIA Protocol As Directed Piperacillin Sod/Tazobactam 50 mls @ 12.5 mls/hr 01/05/25 06:00 01/05/25 09:15 Sod 3.375 gm/ Sodium Chloride IV Infused Q8 RU Infusion Vancomycin IV-PHARMACY TO DOSE 500 mls @ 250 mls/hr 01/05/25 04:04 1 each/ Sodium Chloride IV PRN PRN Rx to Dose Protocol Vancomycin HCl 1,500 mg/ 530 mls @ 250 mls/hr 01/05/25 09:00 01/05/25 11:38 Sodium Chloride IV Infused Q8H RU Infusion Ibuprofen 400 mg 01/05/25 04:04 Ibuprofen 400 Mg Tablet PO Q4H PRN PRN Pain 1-10 Or Fever >100.7 Insulin Glargine 60 unit 01/05/25 10:00 01/05/25 09:26 Insulin Glargine-Yfgn 100 Unit/Ml Pen SC 60 unit BID RU Administration Insulin Human Lispro 0 unit 01/05/25 07:00 01/05/25 11:30 Insulin Lispro 100 Unit/Ml Insuln.Pen SC 3 u ACHS RU Administration Protocol Melatonin 10 mg 01/05/25 04:04 Melatonin 10 Mg Tablet PO QHS PRN PRN INSOMNIA Multi-Ingredient Ointment 1 applic 01/05/25 04:04 Mineral Oil/Petrolatum Cr 1.75oz Bottle TOPICAL Q6H PRN PRN DRY SKIN Protocol Nystatin 1 applic 01/05/25 10:00 01/05/25 09:27 Nystatin Ointment TOPICAL 1 applic BID RU Administration Protocol Ondansetron HCl 4 mg 01/05/25 04:04 Ondansetron 4 Mg/2 Ml Vial IV Q8H PRN PRN NAUSEA/VOMITING Pantoprazole Sodium 20 mg 01/05/25 10:00 01/05/25 09:28 Pantoprazole Sodium 20 Mg Tablet PO 20 mg DAILY [facility] Administration Senna/Docusate Sodium 2 tablet 01/05/25 04:04 Senna/Docusate Sodium 1 Tablet PO BID PRN PRN Constipation Vancomycin Protocol 1 lab 01/05/25 23:30 Vancomycin Trough/Random Due MC 01/06/25 01:30 DAILY [facility] Lab / Micro Data 01/05/25 04:20 01/05/25 04:20 Labs: Laboratory Results - last 24 hr 01/04/25 23:10: WBC 18.8 H, RBC 5.28, Hgb 13.9, Hct 46.5, MCV 88.1, MCH 26.3 L, MCHC 29.9 L, RDW Std Deviation 45.9 H, RDW Coeff of Ramy 14.2, Plt Count 235, MPV 10.2, Immature Gran % (Auto) 0.600, Neut % (Auto) 90.0 H, Lymph % (Auto) 4.8 L, Armstrong % (Auto) 3.9, Eos % (Auto) 0.1, Baso % (Auto) 0.6, Absolute Neuts (auto) 16.9 H, Absolute Lymphs (auto) 0.91, Nucleated RBC % 0, Sodium 140, Potassium 4.3, Chloride 93 L, Carbon Dioxide 37.0 H, Anion Gap 11, BUN 18, Creatinine 0.89, Estim Creat Clear Calc 112.64, Est GFR (MDRD) Non-Af 75, BUN/Creatinine Ratio 20.3 H, Glucose 236 H, Calcium 9.5, NT pro BNP II 594, Procalcitonin 0.06 01/04/25 23:17: Lactic Acid 2.7 H* 01/05/25 00:02: Urine Color Yellow, Urine Clarity Clear, Urine pH 6.5, Ur Specific [place] 1.015, Urine Protein 500 H, Urine Glucose (UA) 50 H, Urine Ketones Negative, Urine Occult Blood 150 H, Urine Nitrite Negative, Urine Bilirubin Negative, Urine Urobilinogen Normal, Ur Leukocyte Esterase Negative, Urine RBC 5-10 SEEN, Urine WBC 0-5 SEEN, Ur Squamous Epith Cells 0-5 SEEN, Urine Bacteria 0 SEEN, Urine Mucus 0 SEEN 01/05/25 04:20: WBC 17.0 H, RBC 4.35, Hgb 11.5 L, Hct 38.4, MCV 88.3, MCH 26.4 L, MCHC 29.9 L, RDW Std Deviation 46.2 H, RDW Coeff of Ramy 14.4, Plt Count 187, MPV 10.1, Immature Gran % (Auto) 0.600, Neut % (Auto) 86.0 H, Lymph % (Auto) 7.5 L, Armstrong % (Auto) 5.4, Eos % (Auto) 0.1, Baso % (Auto) 0.4, Absolute Neuts (auto) 14.6 H, Absolute Lymphs (auto) 1.28, Nucleated RBC % 0, Sodium 139, Potassium 4.2, Chloride 97 L, Carbon Dioxide 34.4 H, Anion Gap 8, BUN 19, Creatinine 0.91, Estim Creat Clear Calc 109.19, Est GFR (MDRD) Non-Af 73, BUN/Creatinine Ratio 20.9 H, Glucose 193 H, Hemoglobin A1c 8.6 H, Lactic Acid 1.6, Calcium 8.6, Phosphorus 3.9, Magnesium 1.5, Total Bilirubin 0.70, AST 16, ALT 9, Alkaline Phosphatase 70, Total Protein 6.6, Albumin 3.0 L, Globulin 3.6, Albumin/Globulin Ratio 0.8 L, MRSA (PCR) Negative 01/05/25 04:50: POC Glucose 159 H 01/05/25 11:29: POC Glucose 200 H Micro: Microbiology 01/05/25 01:49 Mucosa - Nasopharyngeal Respiratory Panel (PCR) - Final 01/05/25 00:02 Urine Catheter - Catheter Legionella Antigen - Final 01/05/25 00:02 Urine Catheter - Catheter Streptococcus pneumoniae Antigen (M - Final 01/04/25 23:20 Mucosa - Nose SARS-CoV-2, Influenza & RSV (PCR) - Final ABG Data ABG results: ABG 01/04/25 01/05/25 23:26 00:56 Specimen Type ART ART Sample Site R Radial R Radial pH 7.36 7.41 Bicarbonate Actual 40.8 H 41.9 H Total CO2 43 44 Base Excess 15 H 17 H O2 Saturation 95 90 L O2 % 15.0 30.0 ABG pCO2 71.7 H* 65.8 H ABG pO2 83 62 L Graeme Test Positive Positive O2 Delivery Device NRB BiPAP Vent Mode Not entered Not entered Crit Call To/Read Back Yes Blood Gas Notified Whom Andes Blood Gas Notified Time 23:27:45 Clinical Comments Imaging Radiology Impression Chest X-Ray 01/04/25 23:42 IMPRESSION: As above. Reading Location: [id number] Assessment and Plan . Assessment and plan: HPI 59 yo morbidly obese female smoker admitted 01/05/25 w/ generalized weakness at home. Apparently EMS called multiple times to patient home - ultimately transported her to ED. Noted fever and hypoxemia. ABG revealed severe chronic respiratory acidosis. She required supplemental O2 as well as NIPPV support. She was reportedly stuporous at the time of presentation. Viral respiratory panel (-) Lab largely unremarkable. UA unremarkable pCXR reveals likely bilateral interstitial opacities, though not a good study She has received IVF as well as empiric anti-bacterials She is currently awake and alert, up in a chair. She is breathing 6 LPM O2 comfortably at rest w/ SpO2 98%. She is HD stable. CX are pending. Empiric ABX are ongoing. EXAM GEN awake and alert, NAD VS as above HEENT O2 N/C NECK obese COR RRR CHEST diminished ABD soft, obese EXT minimal edema SKIN w/d KIRILL NF A/P 1. Acute and chronic respiratory failure w/ hypoxemia and hypercapnia, requiring NIPPV support 2. Bilateral pulmonary infiltrates 3. Metabolic encephalopathy 4. Morbid obesity 5. Fever 6. Tobacco use 7. DM -supplemental O2 - goal SpO2 90% -NIV support w/ sleep -follow [employer] clinically -f/u CX - empiric ABX -consider forced diuresis -TSH -sq insulin -VTE ppx -inhaled BD as needed -tobacco cessation Critical Care Time: 60 minutes The entirety of this encounter was done via Telemedicine
--- NOTE | 2025-01-05 16:52 | PCM.HOSP.N ---
Hospitalist Note Patient was seen and examined today, she was admitted earlier this morning for respiratory failure and pneumonia. Patient is currently on 6 L of oxygen via nasal cannula and appears to be comfortable. Critical care saw the patient via telemedicine and recommend the patient be transferred to a medical floor for ongoing care, ICU was not needed in their estimation. Patient will be transferred to PCU for further care, I will reconcile her medications.
[2025-01-05] MEDS: Furosemide 20 MG/2 ML VIAL IV (16:58)
[2025-01-05] MEDS: Insulin Glargine-YFGN 100 UNIT/ML Pen 40 UNIT SC (21:21)
[2025-01-06] VITALS (16 sets, daily range): BP systolic 112–146; BP diastolic 63–97; PULSE 10–111; RESP 15–20; TEMP 36.6–37.1; O2SAT 87–98
[2025-01-06 01:12] LABS: Vancomycin, Trough Level 23.9 ug/mL (5.0-15.0)
--- NOTE | 2025-01-06 01:19 | PCM.RX.CS ---
Consult Antibiotic Management Pharmacy has been consulted to manage selected antibiotic: Vancomycin Type of Intervention Type of Consult: Follow-up Suspected Infection Suspected Infection: Sepsis Labs Labs: Sodium 139 mmol/L (133-145) 01/05/25 04:20 Potassium 4.2 mmol/L (3.3-5.1) 01/05/25 04:20 Chloride 97 mmol/L (98-108) L 01/05/25 04:20 Carbon Dioxide 34.4 mmol/L (21.0-32.0) H 01/05/25 04:20 Anion Gap 8 (5-15) 01/05/25 04:20 BUN 19 mg/dL (4-19) 01/05/25 04:20 Creatinine 0.91 mg/dL (0.70-1.20) 01/05/25 04:20 Est GFR (MDRD) Non-Af 73 (>60) 01/05/25 04:20 BUN/Creatinine Ratio 20.9 RATIO (10-20) H 01/05/25 04:20 Glucose 193 mg/dL (70-99) H 01/05/25 04:20 Vancomycin Trough 23.9 ug/mL (5.0-15.0) H 01/06/25 00:38 Microbiology Microbiology: Microbiology 01/05/25 01:49 Mucosa - Nasopharyngeal Respiratory Panel (PCR) - Final 01/05/25 00:02 Urine Catheter - Catheter Legionella Antigen - Final 01/05/25 00:02 Urine Catheter - Catheter Streptococcus pneumoniae Antigen (M - Final 01/04/25 23:20 Mucosa - Nose SARS-CoV-2, Influenza & RSV (PCR) - Final Dosing Weight Weight used for dosin kg Estimated Creatinine Clearance Estimated Creatinine Clearance: 109 Goal Trough Goal Trough: 15-20 mcg/mL Pharmacy Plan for Drug Dosing Pharmacy Plan for Drug Dosing: Vancomycin trough level of 23.9, drawn 7hrs post-dose, was above the target range of 15-20. Will suspend current dosing and draw a random vanco level in eight hours to determine further orders. Pharmacy Service will continue to monitor and adjust dosing as required. Follow-Up Labs Follow-Up Labs: Trough: Vancomycin (random) Date/Time Labs Ordered Labs to be done on [date and time ordered]: 01/06/25 @0830 (random)
[2025-01-06] MEDS: Piperacil/Tazobactam 3.375 GM in 0.9% Normal Saline (50mL MB+) 50 ML IV ×3 (05:42→22:05)
[2025-01-06] MEDS: Insulin Glargine-YFGN 100 UNIT/ML Pen 40 UNIT SC (09:14)
[2025-01-06 09:34] LABS: Vancomycin, Random Level 15.4 ug/mL (0.0-15.0)
--- NOTE | 2025-01-06 09:43 | PCM.RX.CS ---
Consult Antibiotic Management Pharmacy has been consulted to manage selected antibiotic: Vancomycin Type of Intervention Type of Consult: Follow-up Suspected Infection Suspected Infection: Sepsis Prior Doses of Antibiotics Prior Doses of Antibiotics Received/Current Regimen: Vancomycin 1500 mg Q8H last dose given 01/05/25 @ 1734 Labs Labs: Sodium 139 mmol/L (133-145) 01/05/25 04:20 Potassium 4.2 mmol/L (3.3-5.1) 01/05/25 04:20 Chloride 97 mmol/L (98-108) L 01/05/25 04:20 Carbon Dioxide 34.4 mmol/L (21.0-32.0) H 01/05/25 04:20 Anion Gap 8 (5-15) 01/05/25 04:20 BUN 19 mg/dL (4-19) 01/05/25 04:20 Creatinine 0.91 mg/dL (0.70-1.20) 01/05/25 04:20 Est GFR (MDRD) Non-Af 73 (>60) 01/05/25 04:20 BUN/Creatinine Ratio 20.9 RATIO (10-20) H 01/05/25 04:20 Glucose 193 mg/dL (70-99) H 01/05/25 04:20 Vancomycin Trough 23.9 ug/mL (5.0-15.0) H 01/06/25 00:38 Random Vancomycin 15.4 ug/mL (0.0-15.0) H 01/06/25 08:41 Microbiology Microbiology: Microbiology 01/05/25 01:49 Mucosa - Nasopharyngeal Respiratory Panel (PCR) - Final 01/05/25 00:02 Urine Catheter - Catheter Legionella Antigen - Final 01/05/25 00:02 Urine Catheter - Catheter Streptococcus pneumoniae Antigen (M - Final 01/04/25 23:20 Mucosa - Nose SARS-CoV-2, Influenza & RSV (PCR) - Final Dosing Weight Weight used for dosin kg Estimated Creatinine Clearance Estimated Creatinine Clearance: ~ 109 Goal Trough Goal Trough: 15-20 mcg/mL Pharmacy Plan for Drug Dosing Pharmacy Plan for Drug Dosing: Vancomycin random level = 15.4, resume dosing with 1750 mg Q12H Pharmacy Service will continue to monitor and adjust dosing as required. Follow-Up Labs Follow-Up Labs: Trough: Vancomycin Date/Time Labs Ordered Labs to be done on [date and time ordered]: 01/07/25 @ 4542
[2025-01-06] MEDS: Furosemide 20 MG/2 ML VIAL IV ×2 (10:16→16:43)
[2025-01-06] MEDS: Aspirin E.C. 81 MG Tablet PO (10:16)
[2025-01-06] MEDS: Nystatin Ointment 1 APPLIC TOPICAL (10:22)
[2025-01-06] MEDS: Vancomycin HCl 1,750 MG in 0.9% Normal Saline (500mL Bag) 500 ML 250 MG IV ×2 (10:22→22:06)
[2025-01-06] MEDS: 0.9% Saline Lock 10 ML Syringe IV ×2 (13:05→22:05)
--- NOTE | 2025-01-06 14:12 | PN.CC_ITS ---
Objective Data Objective Data Vital Signs: Vital Signs Last response 3 Temperature 37.1 C 01/06/25 09:12 Temperature Source Oral 01/06/25 09:12 Pulse Rate 111 H 01/06/25 12:10 Pulse Strength Weak (1+) 01/06/25 10:40 Respiratory Rate 18 01/06/25 12:10 Respiratory Effort Normal, Non-Labored 01/06/25 09:15 Respiratory Depth Normal 01/06/25 09:15 Respiratory Pattern Normal 01/06/25 12:10 Blood Pressure 136/77 H 01/06/25 09:12 Blood Pressure Mean 96 01/06/25 09:12 Blood Pressure Source Monitor 01/06/25 09:12 Blood Pressure Position Sitting 01/06/25 09:12 Blood Pressure Location Right Forearm 01/06/25 09:12 Pulse Ox 96 01/06/25 13:06 Oxygen Delivery Method Nasal Cannula 01/06/25 13:06 Oxygen Flow Rate (L/min) 4 01/06/25 13:06 Fraction of Inspired Oxygen (FIO2) 30 01/06/25 08:31 I&O: I&O Last 24 Hours 3 01/05/25 01/06/25 01/06/25 23:59 11:59 23:59 Intake Total 1261.67 / 5021.67 100 / 635 535 / 635 Output Total 500 / 1200 1250 / 1250 Balance 761.67 / 3821.67 -1150 / -615 535 / -615 I&O: Total Stay 3 01/04/25 23:02 thru 01/06/25 12:32 Intake Total 5656.67 Output Total 2450 Balance 3206.67 Current Meds Ordered / Administered: Current meds ordered / Administered 3 Generic Name Dose Route Start Last Admin Trade Name Freq PRN Reason Stop Dose Admin Acetaminophen 650 mg 01/05/25 04:04 01/05/25 04:59 Acetaminophen 325 Mg Tablet PO 650 mg Q6H PRN PRN Administration Pain 1-10 Or Fever>100.7 Albuterol Sulfate 2.5 mg 01/05/25 04:04 Albuterol 2.5 Mg/3 Ml Vial.Neb. INHALATION Q2H PRN PRN SOB &/OR WHEEZING Albuterol/Ipratropium 3 ml 01/05/25 06:00 01/06/25 11:15 Ipratropium/Albuterol Sulfate 3 Ml Ampul.Neb INHALATION 3 ml Q4HWA.RT RU Administration Apixaban 5 mg 01/06/25 22:00 Apixaban 5 Mg Tablet PO BID RU Aspirin 81 mg 01/05/25 08:00 01/06/25 10:16 Aspirin E.C. 81 Mg Tablet PO 81 mg BREAKFAST RU Administration Furosemide 20 mg 01/05/25 16:25 01/06/25 10:16 Furosemide 20 Mg/2 Ml Vial IV 20 mg [id number] RU Administration Protocol Gabapentin 300 mg 01/05/25 06:00 01/06/25 13:00 Gabapentin 300 Mg Capsule PO 300 mg TID RU Administration Glucagon 1 mg 01/05/25 04:04 Glucagon 1 Mg/Ml Syringe IM X1 PRN Hypoglycemia Protocol Dextrose 250 mls @ 0 mls/hr 01/05/25 04:04 Dextrose 10%-Water IV .Q0M PRN HYPOGLYCEMIA Protocol As Directed Piperacillin Sod/Tazobactam 50 mls @ 12.5 mls/hr 01/05/25 06:00 01/06/25 13:03 Sod 3.375 gm/ Sodium Chloride IV 12.5 mls/hr Q8 RU Administration Vancomycin IV-PHARMACY TO DOSE 500 mls @ 250 mls/hr 01/05/25 04:04 1 each/ Sodium Chloride IV PRN PRN Rx to Dose Protocol Vancomycin HCl 1,750 mg/ 535 mls @ 250 mls/hr 01/06/25 10:00 01/06/25 12:32 Sodium Chloride IV Infused Q12H RU Infusion Sodium Chloride 250 mls @ 15 mls/hr 01/06/25 10:41 IV .[id number] PRN Saline Flush Sodium Chloride 250 mls @ 15 mls/hr 01/06/25 10:41 IV .[id number] PRN Additional IVPB Infusion Ibuprofen 400 mg 01/05/25 04:04 01/06/25 02:09 Ibuprofen 400 Mg Tablet PO 400 mg Q4H PRN PRN Administration Pain 1-10 Or Fever >100.7 Insulin Glargine 40 unit 01/05/25 22:00 01/06/25 09:14 Insulin Glargine-Yfgn 100 Unit/Ml Pen SC 40 unit BID RU Administration Insulin Human Lispro 0 unit 01/05/25 07:00 01/06/25 12:54 Insulin Lispro 100 Unit/Ml Insuln.Pen SC 6 u ACHS RU Administration Protocol Insulin Human Lispro 15 unit 01/06/25 07:00 01/06/25 12:55 Insulin Lispro 100 Unit/Ml Insuln.Pen SC 15 u TIDAC RU Administration Melatonin 10 mg 01/05/25 04:04 Melatonin 10 Mg Tablet PO QHS PRN PRN INSOMNIA Multi-Ingredient Ointment 1 applic 01/05/25 04:04 Mineral Oil/Petrolatum Cr 1.75oz Bottle TOPICAL Q6H PRN PRN DRY SKIN Protocol Nystatin 1 applic 01/05/25 10:00 01/06/25 10:22 Nystatin Ointment TOPICAL 1 applic BID RU Administration Protocol Ondansetron HCl 4 mg 01/05/25 04:04 Ondansetron 4 Mg/2 Ml Vial IV Q8H PRN PRN NAUSEA/VOMITING Pantoprazole Sodium 20 mg 01/05/25 10:00 01/06/25 10:16 Pantoprazole Sodium 20 Mg Tablet PO 20 mg DAILY RU Administration Senna/Docusate Sodium 2 tablet 01/05/25 04:04 Senna/Docusate Sodium 1 Tablet PO BID PRN PRN Constipation Sodium Chloride 10 - 40 ml 01/06/25 10:41 01/06/25 13:05 0.9% Saline Lock 10 Ml Syringe IV 30 ml UD PRN Administration SALINE FLUSH Vancomycin Protocol 1 lab 01/07/25 20:30 Vancomycin Trough/Random Due MC 01/07/25 22:30 DAILY [facility] Lab / Micro Data 01/05/25 04:20 01/05/25 04:20 Labs: Laboratory Results - last 24 hr 01/05/25 16:21: POC Glucose 223 H 01/05/25 20:06: POC Glucose 250 H 01/06/25 00:38: Vancomycin Trough 23.9 H 01/06/25 08:17: POC Glucose 218 H 01/06/25 08:41: Random Vancomycin 15.4 H 01/06/25 11:46: POC Glucose 255 H Assessment and Plan . Assessment and plan: HPI 59 yo morbidly obese female smoker admitted 01/05/25 w/ generalized weakness at home. Apparently EMS called multiple times to patient home - ultimately transported her to ED. Noted fever and hypoxemia. ABG revealed severe chronic respiratory acidosis. She required supplemental O2 as well as NIPPV support. She was reportedly stuporous at the time of presentation. Viral respiratory panel (-) Lab largely unremarkable. UA unremarkable pCXR reveals likely bilateral interstitial opacities, though not a good study She has received IVF as well as empiric anti-bacterials She is currently awake and alert, up in a chair. She is breathing 6 LPM O2 comfortably at rest w/ SpO2 98%. She is HD stable. CX are pending. Empiric ABX are ongoing. 01/06/25 She is awake and alert - NAD O2 4 LPM N/C Micro (-) to date Using PAP Rx at night w/ sleep She has been afebrile for 24 hours EXAM GEN awake and alert, NAD VS as above HEENT O2 N/C NECK obese COR RRR CHEST diminished, no wheezing ABD soft, obese EXT some edema SKIN w/d KIRILL NF A/P 1. Acute and chronic respiratory failure w/ hypoxemia and hypercapnia, requiring NIPPV support - improved 2. Bilateral pulmonary infiltrates 3. Metabolic encephalopathy - improved 4. Morbid obesity 5. Fever - resolved 6. Tobacco use 7. DM -supplemental O2 - goal SpO2 90% -NIV support w/ sleep -follow [employer] clinically -f/u CX - empiric ABX -loop diuretics as tolerated -TSH is OK -sq insulin -VTE ppx -inhaled BD as needed -tobacco cessation The entirety of this encounter was done via Telemedicine
--- NOTE | 2025-01-06 14:17 | PCM.PN.HOSP ---
Reason for Visit Chief Complaint: Weakness/hypoxia Subjective Subjective Patient was seen and examined today, she is on 4 L of oxygen presently. It was noted that the patient is in atrial flutter with a well-controlled rate at this time. I talked to the patient about anticoagulation and she is amendable to taking Eliquis. I will obtain an echocardiogram tomorrow and the patient patient will be placed on a beta-maritza Objective Data Objective Data Vital Signs: Vital Signs Temp Pulse Resp BP Pulse Ox O2 Del Method O2 Flow Rate 98.8 F 111 H 18 136/77 H 96 Nasal Cannula 4 01/06/25 09:12 01/06/25 12:10 01/06/25 12:10 01/06/25 09:12 01/06/25 13:06 01/06/25 13:06 01/06/25 13:06 FiO2 30 01/06/25 08:31 Oxygen Flow Rate (L/min) 4 Oxygen Delivery Method Nasal Cannula Weight: 171 kg Body Mass Index (BMI) 62.7 Intake & Output: Intake and Output for Last 24 Hours 01/04/25 01/05/25 01/06/25 23:59 23:59 23:59 Intake Total 5021.67 / 5021.67 635 / 635 Output Total 1200 / 1200 1250 / 1250 Balance 3821.67 / 3821.67 -615 / -615 Lab / Micro Data 01/05/25 04:20 01/05/25 04:20 Labs: Laboratory Results - last 24 hr 01/05/25 16:21: POC Glucose 223 H 01/05/25 20:06: POC Glucose 250 H 01/06/25 00:38: Vancomycin Trough 23.9 H 01/06/25 08:17: POC Glucose 218 H 01/06/25 08:41: Random Vancomycin 15.4 H 01/06/25 11:46: POC Glucose 255 H Micro: Microbiology 01/05/25 01:49 Mucosa - Nasopharyngeal Respiratory Panel (PCR) - Final 01/05/25 00:02 Urine Catheter - Catheter Legionella Antigen - Final 01/05/25 00:02 Urine Catheter - Catheter Streptococcus pneumoniae Antigen (M - Final 01/04/25 23:20 Mucosa - Nose SARS-CoV-2, Influenza & RSV (PCR) - Final Physical Exam Const alert, oriented x3 and no apparent distress Constitutional Narrative: Patient has class III obesity General Appearance: cooperative, well kempt and well developed Orientation / Consciousness: awake, oriented to person, oriented to place and oriented to time HEENT normocephalic, head/scalp atraumatic and moist oral mucous membranes Eyes PERRL, EOMs intact bilaterally and conjunctivae normal Neck supple, no JVD, thyroid normal and no carotid bruits General: trachea midline Resp normal respiratory effort, no retractions, no use of accessory muscles and clear to auscultation bilaterally Auscultation: Negative for rales, rhonchi or wheezes Cardio S1 normal heart sound, S2 normal heart sound, no murmurs, no rub and no gallops Cardio Narrative: Heart rate and rhythm is irregular GI normal to inspection, nondistended, normoactive bowel sounds, soft to palpation, non-tender and non-distended Extremity Extremity Narrative: Lymphedema changes are noted over the patient's lower legs Skin General Skin Exam: no breakdown Neuro oriented x3, CN's II-XII intact bilaterally, moves all extremities, no focal motor deficits and no sensory deficits noted Sensorium / Orientation: awake and alert Speech: speech normal Psych affect normal Assessment & Plan Assessment/Plan (1) Acute on chronic respiratory failure with hypoxia and hypercapnia: PLAN: Plan 1. Acute on chronic combined respiratory failure due to pneumonia-continue present treatment including aerosol treatments and IV antibiotics #2 sepsis secondary to bilateral pneumonia-organism unknown, continue present antibiotic coverage and await culture results #3 vascular congestion-patient will remain on IV Lasix #4 atrial flutter-I will place the patient on a beta-maritza and start Eliquis tonight, echocardiogram will be performed #5 type 2 diabetes-patient is on basal insulin as well as insulin with meals, sliding scale insulin will be administered as indicated #6 class III obesity-complicates care, management, recovery, and prognosis #7 essential hypertension-I will place the patient on lisinopril, she remains on IV Lasix and now is on metoprolol. Blood pressure will be monitored Total clinical time spent by myself addressing patient's medical issues, reviewing all of her data, and collaborating with patient's care team: 35 minutes Charges/Coding Visit Charges Inpatient E&M: 57981 Subs Hosp L2
[2025-01-06] MEDS: APIXABAN 5 MG TABLET PO (22:03)
[2025-01-06] MEDS: Insulin Glargine-YFGN 100 UNIT/ML Pen 50 UNIT SC (22:05)
[2025-01-06] MEDS: 0.9% Normal Saline (250mL Bag) 250 ML 15 ML IV (22:06)
[2025-01-07] VITALS (14 sets, daily range): BP systolic 132–172; BP diastolic 71–89; PULSE 56–112; RESP 16–26; TEMP 36.1–37.1; O2SAT 88–95; BMI 64.5
[2025-01-07] MEDS: Piperacil/Tazobactam 3.375 GM in 0.9% Normal Saline (50mL MB+) 50 ML IV ×3 (05:39→22:03)
--- NOTE | 2025-01-07 05:55 | ECHOD_ITS ---
Reason For Study Reason For Study: AFIB Procedure This was a 2D Doppler, Color Flow transthoracic echocardiogram. The study was technically limited. Definity deferred due to half kidney. Exam performed portable in patient room. Left Ventricle Normal LV size. Moderate eccentric left ventricular hypertrophy. The left ventricular ejection fraction is 55 %. No regional wall motion abnormalities noted. Right Ventricle Normal RV size. Normal systolic function. Atria Normal left atrium. Normal right atrium. Mitral Valve Normal mitral valve. Tricuspid Valve Normal tricuspid valve. Pulmonic Valve Normal pulmonic valve. Great Vessels Normal aortic root. The pulmonary artery is normal size. Inferior vena cava collapse with sniff. Pericardium/Pleural No pericardial effusion. MMode/2D Measurements & Calculations LVIDd: 4.5 cm IVSd: 1.2 cm Ao root diam: 2.6 cm LVIDs: 3.0 cm LVPWd: 1.6 cm FS: 33.0 % LA dimension(2D): 4.1 cm Doppler Measurements & Calculations Ao V2 max: 145.3 cm/sec PA V2 max: 89.3 cm/sec Ao max P.4 mmHg PA V2 mean: 66.4 cm/sec Ao V2 mean: 109.9 cm/sec Ao mean P.4 mmHg Ao V2 VTI: 30.5 cm ECHO/Echo Complete Interpretation Summary Normal LV size. The left ventricular ejection fraction is 55 %. Moderate eccentric left ventricular hypertrophy. The study was technically difficult. The study was technically limited. Ordering Physician: Rodriguez Hutson Referring Physician: PAT HOGAN Performed By: Shanna Aguirre RCS
[2025-01-07 06:51] LABS: Hematocrit 37.2 % (37-47); Hemoglobin 11.1 g/dL (12.0-15.0); Immature Granulocytes Count 0.060 X10^3/uL (0.0-0.0); Mean Corp Hgb Conc 29.8 g/dL (32-36); Mean Corpuscular Volume 88.6 fL (81-99); Mean Platelet Vol. 10.3 fl (6.2-12.0); NRBC Flagged by Analyzer 0 % (0-5); Platelet Count 207 K/mm3 (150-450); RBC Distribution Width CV 14.6 % (11.6-14.6); RBC Distribution Width SD 46.6 fl (35.1-43.9); Red Blood Count 4.20 M/mm3 (4.2-5.4); White Blood Count 10.3 K/mm3 (4.4-11.0)
[2025-01-07 07:18] LABS: Anion Gap 8 (5-15); BUN 21 mg/dL (4-19); BUN/Creat Ratio 18.0 RATIO (10-20); Calcium,Total 8.3 mg/dL (7.6-11.0); Carbon Dioxide 33.8 mmol/L (21.0-32.0); Chloride 97 mmol/L (98-108); Estimated Creatinine Clearance 87.98 ml/min (50-250); Glucose 259 mg/dL (70-99); Potassium 3.6 mmol/L (3.3-5.1)
[2025-01-07] MEDS: Aspirin E.C. 81 MG Tablet PO (08:52)
[2025-01-07] MEDS: APIXABAN 5 MG TABLET PO ×2 (08:52→22:04)
[2025-01-07] MEDS: Insulin Glargine-YFGN 100 UNIT/ML Pen 50 UNIT SC ×2 (08:53→21:55)
[2025-01-07] MEDS: Furosemide 20 MG/2 ML VIAL IV ×2 (08:53→17:34)
[2025-01-07] MEDS: Nystatin Ointment 1 APPLIC TOPICAL ×2 (08:55→22:07)
[2025-01-07] MEDS: Vancomycin HCl 1,750 MG in 0.9% Normal Saline (500mL Bag) 500 ML 250 MG IV (08:56)
--- NOTE | 2025-01-07 09:51 | PCM.PN.INT ---
Assessment & Plan Assessment/Plan (1) Acute on chronic respiratory failure with hypoxia and hypercapnia: PLAN: Plan RECOMMENDATIONS: 1. Wean supplemental oxygen to maintain saturations 88 to 92%. 2. Continue PAP therapy with naps and nightly. 3. Gentle diuresis as tolerated by hemodynamics and renal function. 4. Continue antimicrobials to complete 7 days of therapy. 5. Encourage incentive spirometer use and mobilize patient as tolerated. 6. The patient should follow-up with their primary pulmonary provider within 2 weeks of discharge. 7. Will sign off from a critical care perspective. Please call if we can be of any additional assistance. IMPRESSIONS: 1. Acute on chronic combined respiratory failure Most likely secondary to pneumonia with possible CHF as well contributing. The patient has improved with gentle diuresis and antimicrobial therapy. She does report a baseline oxygen requirement of 3 L/min. At this time, I would plan to continue antibiotics to complete 7 days of therapy. Ongoing diuresis can be continued, as tolerated by hemodynamics and renal function. Continue to wean supplemental oxygen to maintain saturations 88 to 92%. Encourage incentive spirometer use and mobilize patient as tolerated. 2. 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 3. Diabetes mellitus/super morbid obesity/diabetic neuropathy/depression/anxiety Complicates care, management, recovery and prognosis. Continue home medications as indicated. This note was generated with [employer] dictation software. It may contain incorrect words, spelling, and punctuation that were not noted in checking the note before signing. Subjective Subjective The patient was seen and examined at the bedside this morning. Events from the last 24 hours have been reviewed. The patient is currently afebrile, hemodynamically stable and maintaining appropriate oxygen saturations on 4 L/min via nasal cannula. The patient reported that she wears 3 L/min of oxygen at her baseline. She is currently followed by pulmonary medicine at [facility]. She does report compliance with home PAP therapy. White blood cell count is normal. Hemoglobin and platelet count are stable. Serum bicarbonate is stable at 34. Creatinine is within normal limits. Objective Data Objective Data The patient's most recent lab work, culture data and imaging studies have all been personally reviewed. Infectious workup has been unrevealing to date. Vital Signs: Vital Signs Temp Pulse Resp BP Pulse Ox O2 Del Method O2 Flow Rate 97.5 F L 108 H 26 H 172/89 H 88 Nasal Cannula 4 01/07/25 09:45 01/07/25 09:45 01/07/25 09:45 01/07/25 09:45 01/07/25 09:45 01/07/25 09:45 01/07/25 09:45 FiO2 35 01/07/25 08:00 Oxygen Flow Rate (L/min) 4 Oxygen Delivery Method Nasal Cannula Weight: 387 lb 9.162 oz Body Mass Index (BMI) 64.5 Intake & Output: Intake and Output for Last 24 Hours 01/05/25 01/06/25 01/07/25 23:59 23:59 23:59 Intake Total 5021.67 / 5021.67 2165.25 / 2165.25 566.87 / 566.87 Output Total 1200 / 1200 6150 / 6150 650 / 650 Balance 3821.67 / 3821.67 -3984.75 / -3984.75 -83.13 / -83.13 Lab / Micro Data Attestation: I reviewed the patient's lab results. 01/07/25 06:10 01/07/25 06:10 Labs: Laboratory Results - last 24 hr 01/06/25 11:46: POC Glucose 255 H 01/06/25 16:32: POC Glucose 242 H 01/06/25 21:53: POC Glucose 390 H 01/07/25 06:10: WBC 10.3, RBC 4.20, Hgb 11.1 L, Hct 37.2, MCV 88.6, MCH 26.4 L, MCHC 29.8 L, RDW Std Deviation 46.6 H, RDW Coeff of Ramy 14.6, Plt Count 207, MPV 10.3, Immature Gran % (Auto) 0.600, Neut % (Auto) 71.4 H, Lymph % (Auto) 14.5 L, [place] % (Auto) 10.8 H, Eos % (Auto) 2.2, Baso % (Auto) 0.5, Absolute Neuts (auto) 7.4, Absolute Lymphs (auto) 1.50, Nucleated RBC % 0, Sodium 139, Potassium 3.6, Chloride 97 L, Carbon Dioxide 33.8 H, Anion Gap 8, BUN 21 H, Creatinine 1.15, Estim Creat Clear Calc 87.98, Est GFR (MDRD) Non-Af 55 L, BUN/Creatinine Ratio 18.0, Glucose 259 H, Calcium 8.3 Micro: Microbiology 01/05/25 01:49 Mucosa - Nasopharyngeal Respiratory Panel (PCR) - Final 01/05/25 00:02 Urine Catheter - Catheter Legionella Antigen - Final 01/05/25 00:02 Urine Catheter - Catheter Streptococcus pneumoniae Antigen (M - Final 01/04/25 23:20 Mucosa - Nose SARS-CoV-2, Influenza & RSV (PCR) - Final Physical Exam Const alert, oriented x3 and no apparent distress Constitutional Narrative: Super morbidly obese. Sitting in bedside recliner. HEENT normocephalic and head/scalp atraumatic Eyes PERRL, EOMs intact bilaterally and conjunctivae normal Neck supple Neck Narrative: Large neck circumference with redundant soft tissue. General: trachea midline Chest inspection of chest normal Resp normal respiratory effort Auscultation: diminished lung sounds Cardio regular rate and regular rhythm GI normal to inspection, nondistended, normoactive bowel sounds Extremity no clubbing, cyanosis or edema Skin no rashes or lesions noted Neuro CN's II-XII intact bilaterally and no focal motor deficits Psych cooperative and affect normal Charges/Coding Visit Charges Inpatient E&M: 77595 Subs Hosp L2
--- NOTE | 2025-01-07 10:06 | CASEMGMT ---
Social Work SW called [facility] and left a message for the patients case monitor Cynthia Pantoja [phone]. FRANKI Escobar
--- NOTE | 2025-01-07 10:08 | CASEMGMT ---
Social Work SW attempted to [place] and left a message. FRANKI Escobar
--- NOTE | 2025-01-07 10:38 | PN_ITS ---
Subjective Subjective Patient seen and examined with her nurse by her bedside. She had no active complaints and denied any chest pain, palpitations, shortness of breath, cough or nausea or vomiting. However she is tachycardic and tachypneic this morning and is on 4 L of oxygen. Review of systems otherwise negative. Objective Data Objective Data Vital Signs: Vital Signs Temp Pulse Resp BP Pulse Ox O2 Del Method O2 Flow Rate 97.5 F L 108 H 26 H 172/89 H 88 Nasal Cannula 4 01/07/25 09:45 01/07/25 09:45 01/07/25 09:45 01/07/25 09:45 01/07/25 09:45 01/07/25 09:45 01/07/25 09:45 FiO2 35 01/07/25 08:00 Oxygen Flow Rate (L/min) 4 Oxygen Delivery Method Nasal Cannula Weight: 387 lb 9.162 oz Body Mass Index (BMI) 64.5 Intake & Output: Intake and Output for Last 24 Hours 01/05/25 01/06/25 01/07/25 23:59 23:59 23:59 Intake Total 5021.67 / 5021.67 2165.25 / 2165.25 566.87 / 566.87 Output Total 1200 / 1200 6150 / 6150 650 / 650 Balance 3821.67 / 3821.67 -3984.75 / -3984.75 -83.13 / -83.13 Lab / Micro Data 01/07/25 06:10 01/07/25 06:10 Labs: Laboratory Results - last 24 hr 01/06/25 11:46: POC Glucose 255 H 01/06/25 16:32: POC Glucose 242 H 01/06/25 21:53: POC Glucose 390 H 01/07/25 06:10: WBC 10.3, RBC 4.20, Hgb 11.1 L, Hct 37.2, MCV 88.6, MCH 26.4 L, MCHC 29.8 L, RDW Std Deviation 46.6 H, RDW Coeff of Ramy 14.6, Plt Count 207, MPV 10.3, Immature Gran % (Auto) 0.600, Neut % (Auto) 71.4 H, Lymph % (Auto) 14.5 L, [place] % (Auto) 10.8 H, Eos % (Auto) 2.2, Baso % (Auto) 0.5, Absolute Neuts (auto) 7.4, Absolute Lymphs (auto) 1.50, Nucleated RBC % 0, Sodium 139, Potassium 3.6, Chloride 97 L, Carbon Dioxide 33.8 H, Anion Gap 8, BUN 21 H, Creatinine 1.15, Estim Creat Clear Calc 87.98, Est GFR (MDRD) Non-Af 55 L, BUN/Creatinine Ratio 18.0, Glucose 259 H, Calcium 8.3 Micro: Microbiology 01/05/25 00:02 Urine Catheter - Catheter Urine Culture - Final Culture exhibits no growth. 01/05/25 01:49 Mucosa - Nasopharyngeal Respiratory Panel (PCR) - Final 01/05/25 00:02 Urine Catheter - Catheter Legionella Antigen - Final 01/05/25 00:02 Urine Catheter - Catheter Streptococcus pneumoniae Antigen (M - Final 01/04/25 23:20 Mucosa - Nose SARS-CoV-2, Influenza & RSV (PCR) - Final Physical Exam Const alert, oriented x3 and no apparent distress Constitutional Narrative: class III obesity General Appearance: cooperative HEENT normocephalic, head/scalp atraumatic, moist oral mucous membranes and oropharynx normal Eyes EOMs intact bilaterally Neck supple and no JVD Lymph Lymphatic: no lymphedema noted Resp Resp Narrative: tachypneic, moderately diminished breath sounds bibasally, no wheezes or crackles. On 4L of oxygen by nasal canula Cardio regular rhythm, S1 normal heart sound, S2 normal heart sound and no murmurs Cardio Narrative: mild tachycardia GI normal to inspection, nondistended, normoactive bowel sounds, soft to palpation and non-tender Extremity Extremity Narrative: bilateral lower extremity nonpitting edema. General Extremity: no tenderness to palpation of joints or extremities Skin General Skin Exam: no breakdown Neuro CN's II-XII intact bilaterally Motor Exam: general weakness Psych thought process normal and cooperative Appearance: appropriate Assessment & Plan Assessment/Plan (1) Generalized weakness: (2) Acute on chronic respiratory failure with hypoxia and hypercapnia: (3) Pneumonia: PLAN: Plan #Acute on chronic combined respiratory failure due to pneumonia * Patient's on 3 L of oxygen today. Has been on 4 to 6 L of oxygen. Breathing treatments bronchodilators. Titrate oxygen to maintain saturation above 90%. Sputum cultures pending. * On IV ceftriaxone and azithromycin. Urine for strep and Legionella negative. To complete a 7-day course of antibiotics * Also on IV Lasix help with fluid overload * Pulmonology on board. #Sepsis due to pneumonia: As above #Atrial flutter: Patient heart rates in the low 100s. On metoprolol. Also on Eliquis. 2D echo ordered and pending. #Type 2 diabetes mellitus: On Lantus. Insulin sliding scale. Accu-Cheks ACHS. On Lantus 50 units twice daily #Class III obesity: BMI 64.5. Complicates acute care, expected recovery and prognosis. #Debility and weakness due to class III obesity. * Patient says she does not walk around a lot at home and think she is at her baseline. PT OT on board. Fall precautions. #Depression and anxiety: Stable #Essential hypertension: * Lisinopril. Also on Lasix and metoprolol. IV hydralazine as needed DVT prophylaxis: on Eliquis on account of the atrial flutter. Charges/Coding Visit Charges Inpatient E&M: 69794 Subs Hosp L2
--- NOTE | 2025-01-07 10:41 | CASEMGMT ---
Social Work RAGHAV spoke with Demetria Guo [facility]. Demetria reported the patient receives aides 7 days a week for 4 hours a day. RAGHAV requested SN be added to the patients services. Demetria reported they can add SN. Demetria requested the DC orders be fax to [phone] at [place]. RAGHAV put in an order for SN. FRANKI Escobar
[2025-01-07] MEDS: Senna/Docusate Sodium 1 Tablet 2 TABLET PO (10:58)
--- NOTE | 2025-01-07 16:03 | CASEMGMT ---
Social Work RAGHAV called [facility] Pantoja. RAGHAV informed her the patient was admitted on 01/05/25. RAGHAV informed her [facility] will provide SN at [place] along with services already in place. ANURADHA Marie would like fax DC orders fax to [phone]. FRANKI Escobar
[2025-01-07 21:52] LABS: Vancomycin, Trough Level 25.0 ug/mL (5.0-15.0)
--- NOTE | 2025-01-07 22:01 | PCM.RX.CS ---
Consult Antibiotic Management Pharmacy has been consulted to manage selected antibiotic: Vancomycin Type of Intervention Type of Consult: Follow-up Suspected Infection Suspected Infection: Sepsis Labs Labs: Sodium 139 mmol/L (133-145) 01/07/25 06:10 Potassium 3.6 mmol/L (3.3-5.1) 01/07/25 06:10 Chloride 97 mmol/L (98-108) L 01/07/25 06:10 Carbon Dioxide 33.8 mmol/L (21.0-32.0) H 01/07/25 06:10 Anion Gap 8 (5-15) 01/07/25 06:10 BUN 21 mg/dL (4-19) H 01/07/25 06:10 Creatinine 1.15 mg/dL (0.70-1.20) 01/07/25 06:10 Est GFR (MDRD) Non-Af 55 (>60) L 01/07/25 06:10 BUN/Creatinine Ratio 18.0 RATIO (10-20) 01/07/25 06:10 Glucose 259 mg/dL (70-99) H 01/07/25 06:10 Vancomycin Trough 25.0 ug/mL (5.0-15.0) H 01/07/25 21:15 Random Vancomycin 15.4 ug/mL (0.0-15.0) H 01/06/25 08:41 Microbiology Microbiology: Microbiology 01/04/25 23:17 Blood Culture (Wb) - Left Forearm Blood Culture - Preliminary No growth in 48 hours. 01/04/25 23:10 Blood Culture (Wb) - Anticubital Right Blood Culture - Preliminary No growth in 48 hours. 01/05/25 00:02 Urine Catheter - Catheter Urine Culture - Final Culture exhibits no growth. 01/05/25 01:49 Mucosa - Nasopharyngeal Respiratory Panel (PCR) - Final 01/05/25 00:02 Urine Catheter - Catheter Legionella Antigen - Final 01/05/25 00:02 Urine Catheter - Catheter Streptococcus pneumoniae Antigen (M - Final 01/04/25 23:20 Mucosa - Nose SARS-CoV-2, Influenza & RSV (PCR) - Final Dosing Weight Weight used for dosin kg Estimated Creatinine Clearance Estimated Creatinine Clearance: 88 Goal Trough Goal Trough: 15-20 mcg/mL Pharmacy Plan for Drug Dosing Pharmacy Plan for Drug Dosing: Vancomycin trough level of 25.0, drawn 12.25hrs post-dose, was above the target range of 15-20. Will suspend current dosing and will draw a random vanco level in twelve hours to determine further orders. Pharmacy Service will continue to monitor and adjust dosing as required. Follow-Up Labs Follow-Up Labs: Trough: Vancomycin (random) Date/Time Labs Ordered Labs to be done on [date and time ordered]: 01/08/25 @0900 (random)
[2025-01-07] MEDS: 0.9% Saline Lock 10 ML Syringe IV (22:13)
[2025-01-08] VITALS (10 sets, daily range): BP systolic 146–171; BP diastolic 77–89; PULSE 100–110; RESP 15–25; TEMP 36.6–37.1; O2SAT 86–99
[2025-01-08] MEDS: Senna/Docusate Sodium 1 Tablet 2 TABLET PO (05:19)
[2025-01-08] MEDS: Piperacil/Tazobactam 3.375 GM in 0.9% Normal Saline (50mL MB+) 50 ML IV (05:24)
[2025-01-08 06:08] LABS: Hematocrit 37.1 % (37-47); Hemoglobin 11.7 g/dL (12.0-15.0); Immature Granulocytes Count 0.050 X10^3/uL (0.0-0.0); Mean Corp Hgb Conc 31.5 g/dL (32-36); Mean Corpuscular Volume 85.9 fL (81-99); Mean Platelet Vol. 10.0 fl (6.2-12.0); NRBC Flagged by Analyzer 0 % (0-5); Platelet Count 224 K/mm3 (150-450); RBC Distribution Width CV 14.2 % (11.6-14.6); RBC Distribution Width SD 45.1 fl (35.1-43.9); Red Blood Count 4.32 M/mm3 (4.2-5.4); White Blood Count 9.0 K/mm3 (4.4-11.0)
[2025-01-08 06:36] LABS: Anion Gap 10 (5-15); BUN 21 mg/dL (4-19); BUN/Creat Ratio 19.6 RATIO (10-20); Calcium,Total 8.9 mg/dL (7.6-11.0); Carbon Dioxide 34.0 mmol/L (21.0-32.0); Chloride 97 mmol/L (98-108); Estimated Creatinine Clearance 93.69 ml/min (50-250); Glucose 215 mg/dL (70-99); Potassium 3.7 mmol/L (3.3-5.1)
[2025-01-08] MEDS: Furosemide 20 MG/2 ML VIAL IV (09:06)
[2025-01-08] MEDS: Aspirin E.C. 81 MG Tablet PO (09:07)
[2025-01-08] MEDS: APIXABAN 5 MG TABLET PO (09:07)
[2025-01-08] MEDS: Nystatin Ointment 1 APPLIC TOPICAL (09:08)
[2025-01-08] MEDS: Insulin Glargine-YFGN 100 UNIT/ML Pen 50 UNIT SC (09:41)
[2025-01-08 10:44] LABS: Vancomycin, Random Level 16.3 ug/mL (0.0-15.0)
--- NOTE | 2025-01-08 10:53 | CASEMGMT ---
Social Work RAGHAV spoke with the patient regarding DC. Patient reported a family member will pick her up at [place]. RAGHAV explained RAGHAV ordered [facility] with [facility]. SW explained RAGHAV will send [facility] and [facility] the [place] orders. Patient reported she gets her oxygen from [facility]. Patient reported she has her diabetic medications at home. RAGHAV called [facility] and confirmed patient receives oxygen with them. [facility] reported the patients current order is 2 LPM continuous. FRANKI Escobar
--- NOTE | 2025-01-08 11:16 | PCM.RX.CS ---
Consult Antibiotic Management Pharmacy has been consulted to manage selected antibiotic: Vancomycin Type of Intervention Type of Consult: Follow-up Prior Doses of Antibiotics Prior Doses of Antibiotics Received/Current Regimen: no current scheduled dose since dose was held due to a high trough (the most recent dose was 1750mg q12h) Labs Labs: Sodium 142 mmol/L (133-145) 01/08/25 05:34 Potassium 3.7 mmol/L (3.3-5.1) 01/08/25 05:34 Chloride 97 mmol/L (98-108) L 01/08/25 05:34 Carbon Dioxide 34.0 mmol/L (21.0-32.0) H 01/08/25 05:34 Anion Gap 10 (5-15) 01/08/25 05:34 BUN 21 mg/dL (4-19) H 01/08/25 05:34 Creatinine 1.08 mg/dL (0.70-1.20) 01/08/25 05:34 Est GFR (MDRD) Non-Af 60 (>60) 01/08/25 05:34 BUN/Creatinine Ratio 19.6 RATIO (10-20) 01/08/25 05:34 Glucose 215 mg/dL (70-99) H 01/08/25 05:34 Vancomycin Trough 25.0 ug/mL (5.0-15.0) H 01/07/25 21:15 Random Vancomycin 16.3 ug/mL (0.0-15.0) H 01/08/25 09:04 Microbiology Microbiology: Microbiology 01/04/25 23:17 Blood Culture (Wb) - Left Forearm Blood Culture - Preliminary No growth in 48 hours. 01/04/25 23:10 Blood Culture (Wb) - Anticubital Right Blood Culture - Preliminary No growth in 48 hours. 01/05/25 00:02 Urine Catheter - Catheter Urine Culture - Final Culture exhibits no growth. 01/05/25 01:49 Mucosa - Nasopharyngeal Respiratory Panel (PCR) - Final 01/05/25 00:02 Urine Catheter - Catheter Legionella Antigen - Final 01/05/25 00:02 Urine Catheter - Catheter Streptococcus pneumoniae Antigen (M - Final 01/04/25 23:20 Mucosa - Nose SARS-CoV-2, Influenza & RSV (PCR) - Final Dosing Weight Weight used for dosin kg Estimated Creatinine Clearance Estimated Creatinine Clearance: 94 ml/min Goal Trough Goal Trough: 15-20 mcg/mL Pharmacy Plan for Drug Dosing Pharmacy Plan for Drug Dosing: The vanc random level drawn at 09:04 (approx 24 hours after the last 1750mg dose) was 16.3mcg/ml. This is back below 20 so will restart at a new dose of 2000mg IV q24h. Check a trough before the 3rd dose. Pharmacy Service will continue to monitor and adjust dosing as required. Follow-Up Labs Follow-Up Labs: Trough: Vancomycin Date/Time Labs Ordered Labs to be done on [date and time ordered]: 01/10/25 11:30
--- NOTE | 2025-01-08 12:09 | PN_ITS ---
Subjective Subjective Patient seen and examined with RN is by bedside. She had no active complaints and was hoping to go home today. Patient initially says she did not really ambulate much at home and she was on her baseline 3 L of oxygen. However her nurse subsequently spoke to patient's daughter who stated that patient does get around a bit at home and so we ambulated her and she required 6 L of oxygen. Plans for discharge therefore held today. She was mildly tachycardic this morning with heart rate going up to 110. Objective Data Objective Data Vital Signs: Vital Signs Temp Pulse Resp BP Pulse Ox O2 Del Method O2 Flow Rate 97.8 F 110 H 20 H 171/88 H 93 Nasal Cannula 5 01/08/25 09:04 01/08/25 09:06 01/08/25 09:04 01/08/25 09:04 01/08/25 09:04 01/08/25 09:04 01/08/25 09:04 FiO2 35 01/08/25 01:05 Oxygen Flow Rate (L/min) 5 Oxygen Delivery Method Nasal Cannula Weight: 387 lb 9.162 oz Body Mass Index (BMI) 64.5 Intake & Output: Intake and Output for Last 24 Hours 01/06/25 01/07/25 01/08/25 23:59 23:59 23:59 Intake Total 2165.25 / 2165.25 1421.87 / 1421.87 100 / 100 Output Total 6150 / 6150 4000 / 4000 1025 / 1025 Balance -3984.75 / -3984.75 -2578.13 / -2578.13 -925 / -925 Lab / Micro Data 01/08/25 05:34 01/08/25 05:34 Labs: Laboratory Results - last 24 hr 01/07/25 16:01: POC Glucose 297 H 01/07/25 21:15: Vancomycin Trough 25.0 H 01/07/25 21:52: POC Glucose 277 H 01/08/25 00:30: POC Glucose 206 H 01/08/25 05:34: WBC 9.0, RBC 4.32, Hgb 11.7 L, Hct 37.1, MCV 85.9, MCH 27.1, M CHC 31.5 L D, RDW Std Deviation 45.1 H, RDW Coeff of Ramy 14.2, Plt Count 224, MPV 10.0, Immature Gran % (Auto) 0.600, Neut % (Auto) 72.5 H, Lymph % (Auto) 14.3 L, [place] % (Auto) 9.5, Eos % (Auto) 2.7, Baso % (Auto) 0.4, Absolute Neuts (auto) 6.6, Absolute Lymphs (auto) 1.29, Nucleated RBC % 0, Sodium 142, Potassium 3.7, Chloride 97 L, Carbon Dioxide 34.0 H, Anion Gap 10, BUN 21 H, Creatinine 1.08, Estim Creat Clear Calc 93.69, Est GFR (MDRD) Non-Af 60, BUN/Creatinine Ratio 19.6, Glucose 215 H, Calcium 8.9 01/08/25 08:12: POC Glucose 196 H 01/08/25 09:04: Random Vancomycin 16.3 H 01/08/25 11:32: POC Glucose 266 H Micro: Microbiology 01/04/25 23:17 Blood Culture (Wb) - Left Forearm Blood Culture - Preliminary No growth in 48 hours. 01/04/25 23:10 Blood Culture (Wb) - Anticubital Right Blood Culture - Preliminary No growth in 48 hours. 01/05/25 00:02 Urine Catheter - Catheter Urine Culture - Final Culture exhibits no growth. 01/05/25 01:49 Mucosa - Nasopharyngeal Respiratory Panel (PCR) - Final 01/05/25 00:02 Urine Catheter - Catheter Legionella Antigen - Final 01/05/25 00:02 Urine Catheter - Catheter Streptococcus pneumoniae Antigen (M - Final 01/04/25 23:20 Mucosa - Nose SARS-CoV-2, Influenza & RSV (PCR) - Final Radiography Diagnostic Testing: Radiology Impression Echocardiogram 01/07/25 05:55 Interpretation Summary Normal LV size. The left ventricular ejection fraction is 55 %. Moderate eccentric left ventricular hypertrophy. The study was technically difficult. The study was technically limited. Ordering Physician: Rodriguez Hutson Referring Physician: PAT HOGAN Performed By: Shanna Aguirre RCS Physical Exam Const alert, oriented x3 and no apparent distress Constitutional Narrative: class III obesity General Appearance: cooperative and well kempt Orientation / Consciousness: awake HEENT normocephalic, head/scalp atraumatic, hearing grossly normal bilaterally and moist oral mucous membranes Eyes EOMs intact bilaterally and conjunctivae normal Neck supple Neck Narrative: Neck is short and thick Lymph Lymphatic: no lymphedema noted Resp Resp Narrative: mildly diminished breath sounds bibasally, no wheezes or crackles. on 3L of oxygen by nasal canula, 6L with ambulation Auscultation: Negative for crackles, rales, rhonchi or wheezes Cardio regular rhythm, S1 normal heart sound, S2 normal heart sound, no murmurs and no rub Cardio Narrative: mild tachycardia GI normal to inspection, nondistended, normoactive bowel sounds, soft to palpation and non-tender GI Narrative: Large protuberant abdomen Extremity Extremity Narrative: bilateral lower extremity nonpitting edema. General Extremity: no tenderness to palpation of joints or extremities Skin Skin Narrative: Bilateral lower extremity skin changes consistent with chronic venous stasis Neuro oriented x3, CN's II-XII intact bilaterally, moves all extremities, no focal motor deficits and no sensory deficits noted Sensorium / Orientation: awake and alert Speech: speech normal Motor Exam: general weakness Psych thought process normal, cooperative and affect normal Appearance: appropriate Assessment & Plan Assessment/Plan (1) Generalized weakness: (2) Acute on chronic respiratory failure with hypoxia and hypercapnia: (3) Pneumonia: PLAN: Plan #Acute on chronic combined respiratory failure due to pneumonia * Patient's on 3 L of oxygen today. Has been on 4 to 6 L of oxygen. Breathing treatments bronchodilators. Titrate oxygen to maintain saturation above 90%. Sputum cultures pending. * On IV ceftriaxone and azithromycin. Urine for strep and Legionella negative. To complete a 7-day course of antibiotics * Also on IV Lasix help with fluid overload * Pulmonology signed off today. Plan was to discharge home but with ambulation required 6 L of oxygen. Will therefore keep her for today to further optimize and hopefully discharge tomorrow. #Sepsis due to pneumonia: As above #Atrial flutter: Patient heart rates in the low 100s. On metoprolol. Also on Eliquis. 2D echo showed normal left ventricular size with EF of 55% and moderate eccentric left ventricular hypertrophy. #Type 2 diabetes mellitus: On Lantus. Insulin sliding scale. Accu-Cheks ACHS. On Lantus 50 units twice daily #Class III obesity: BMI 64.5. Complicates acute care, expected recovery and prognosis. #Debility and weakness due to class III obesity. * Patient says she does not walk around a lot at home and think she is at her baseline. PT OT on board. Fall precautions. #Depression and anxiety: Stable #Essential hypertension: * Lisinopril. Also on Lasix and metoprolol. IV hydralazine as needed DVT prophylaxis: on Eliquis on account of the atrial flutter. Disposition: Anticipate discharge by tomorrow. Charges/Coding Visit Charges Inpatient E&M: 70033 Subs Hosp L2
[2025-01-08] MEDS: Vancomycin HCl 2,000 MG in 0.9% Normal Saline (500mL Bag) 500 ML 250 MG IV (12:46)
--- NOTE | 2025-01-08 14:52 | CASEMGMT ---
RN CM NOTE: Home ambulatory testing has been completed. Pt needs an increase in home O2, requiring 3 L/M @ rest and 4 L/M w/exertion now. Updated O2 script obtained from Dr Oneil and sent to [facility] via [facility] along w/home O2 testing documentation. Per RAGHAV Marie, family can bring portable O2 tank for pt to dc home on. Ahmet WAGONERN RN CM
--- NOTE | 2025-01-08 15:11 | DCINST_ITS ---
Discharge Instructions DC O2, CPAP, BIPAP needs Home O2 Discharge instructions: Yes Type of respiratory needs?: Oxygen Oxygen frequency: At rest (3) and With Ambulation (4) Oxygen liters per minute during Ambulation: 4 Dressing / Incision Discharge Activity: Return to Normal Activity Dressing / Incision Call your doctor if you observe: Fever of 101 or Higher, Shortness of breath, Dizziness, Swelling in the ankles, Chest pain and Increased palpitations (irregular heartbeat) Follow Up Care Test Results: Test results from this visit will be discussed in further detail at your follow- up appointment, if applicable. Discharge Plan Admission Admit Date/Time: 01/05/25 02:07 Primary Reason for Your Visit: acute on chronic resp failure, pneumonia, afib Attending Provider: Kelly Oneil Primary Care Provider: Samson Todd Consulting Providers: Anny Smith; Rodriguez Hutson Instructions Patient Instructions: Pneumonia Community Acquired, AFib Dc, Pneumonia Discharge Orders/Prescriptions Prescriptions: New metoprolol tartrate 75 mg tablet 75 mg PO BID Qty: 60 2RF levofloxacin 750 mg tablet 750 mg PO DAILY Qty: 5 0RF Eliquis 5 mg Tablet 5 mg PO BID Qty: 60 2RF Continued Trulicity 1.5 mg/0.5 mL pen injector 1.5 mg SC FR Patient Comments: Mondays atorvastatin 40 mg tablet 40 mg PO QHS albuterol sulfate 90 mcg/actuation aerosol powdr breath activated 2 inh INHALATION Q4H PRN (Reason: Wheezing) furosemide 40 MG tablet 40 mg PO DAILY lisinopril-hydrochlorothiazide 1 TABLET tablet 1 tab PO BID venlafaxine 150 MG capsule 150 mg PO DAILY gabapentin 300 MG capsule 300 mg PO TID insulin degludec 100 UNIT/ML insulin pen 83 unit SQ BID buspirone 5 MG tablet 7.5 mg PO TID metformin 500 mg tablet extended release 24 hr 1,000 mg PO BID omeprazole 20 mg capsule,delayed release(DR/EC) 20 mg PO DAILY insulin lispro [Humalog Zafar KwikPen U-100] 100 unit/mL insulin pen, half- unit 63 unit subcut DAILY Patient Comments: AM insulin lispro [Humalog Zafar KwikPen U-100] 100 unit/mL insulin pen, half- unit 3 unit subcut DAILY Patient Comments: lunch insulin lispro [Humalog Zafar KwikPen U-100] 100 unit/mL insulin pen, half- unit 94 unit subcut QHS magnesium oxide 400 mg (241.3 mg magnesium) tablet 400 mg PO BID (DME) CPAP - Continuous Positive Airway Pressure([facility] INFORMATIONAL USE ONLY) 0 .Route .MEDSUPPLY Patient Comments: 3lpm bled in to CPAP (DME) OXYGEN - Supplemental ([facility] INFORMATIONAL USE ONLY) 0 .ROUTE .MEDSUPPLY Patient Comments: 3lpm when off CPAP Discontinued ibuprofen 800 mg tablet 800 mg PO Q6H PRN (Reason: Pain Or Fever) atenolol 50 MG tablet 100 mg PO DAILY Referrals / Follow Up: Samson Todd MD [Primary Care Provider, Medical] - Within 1 Week Disposition Disposition (needs filled in before D/C Order can be placed): Home, Self Care
--- NOTE | 2025-01-08 15:12 | PCM.DC.SUM ---
Providers Date of Admission: 01/05/25 Date of Discharge: 01/08/25 Primary Care Physician: Dr. Samson Hogan MD Consultations 01/05/25 04:04 Consult: [employer] / Pulmonary Medicine Routine Consulting Provider: Intensivists/Pulmonary Med Reason for Consult: Sepsis EMERGENT Consult: No MD Notified: Yes Date Notified: 01/05/25 Time Notified: 08:14 Method of Notification: Answering Service Method of Consult:: Telemedicine Reason For Visit: SEPSIS ACUTE ON CHRONIC HYPOXIC & HYPERCAPNIC Diagnosis Discharge Diagnosis (1) Generalized weakness: Status: Acute Code(s): R53.1 - Weakness (2) Acute on chronic respiratory failure with hypoxia and hypercapnia: Status: Chronic Code(s): J96.21 - Acute and chronic respiratory failure with hypoxia; J96.22 - Acute and chronic respiratory failure with hypercapnia (3) Pneumonia: Status: Acute Code(s): J18.9 - Pneumonia, unspecified organism Plan #Acute on chronic combined respiratory failure due to pneumonia Patient's on 3 L of oxygen today. Has been on 4 to 6 L of oxygen. Breathing treatments bronchodilators. Titrate oxygen to maintain saturation above 90%. Sputum cultures pending. On IV ceftriaxone and azithromycin. Urine for strep and Legionella negative. To complete a 7-day course of antibiotics Also on IV Lasix help with fluid overload Pulmonology signed off today. Plan was to discharge home but with ambulation required 6 L of oxygen. Will therefore keep her for today to further optimize and hopefully discharge tomorrow. #Sepsis due to pneumonia: As above #Atrial flutter: Patient heart rates in the low 100s. On metoprolol. Also on Eliquis. 2D echo showed normal left ventricular size with EF of 55% and moderate eccentric left ventricular hypertrophy. #Type 2 diabetes mellitus: On Lantus. Insulin sliding scale. Accu-Cheks ACHS. On Lantus 50 units twice daily #Class III obesity: BMI 64.5. Complicates acute care, expected recovery and prognosis. #Debility and weakness due to class III obesity. Patient says she does not walk around a lot at home and think she is at her baseline. PT OT on board. Fall precautions. #Depression and anxiety: Stable #Essential hypertension: Lisinopril. Also on Lasix and metoprolol. IV hydralazine as needed DVT prophylaxis: on Eliquis on account of the atrial flutter. Disposition: Anticipate discharge by tomorrow. Medications at Discharge Home Medications furosemide 40 mg tablet 40 mg PO DAILY water retention 03/04/15 gabapentin 300 mg capsule 300 mg PO TID nerve pain 03/04/15 lisinopril 20 mg-hydrochlorothiazide 12.5 mg tablet 1 tab PO BID BP 03/04/15 venlafaxine 150 mg capsule,extended release 24 hr 150 mg PO DAILY mood 03/04/15 albuterol sulfate 90 mcg/actuation breath activated powder inhaler 2 inh inhalation Q4H PRN Wheezing 12/26/18 atorvastatin 40 mg tablet 40 mg PO QHS cholesterol 12/26/18 dulaglutide 1.5 mg/0.5 mL subcutaneous pen injector (Jump[place]awk) 1.5 mg subcut FR diabetes 12/26/18 insulin degludec 100 unit/mL (3 mL) subcutaneous pen 83 unit SQ BID diabetes 09/01/19 buspirone 5 mg tablet 7.5 mg PO TID mood 04/28/20 insulin lispro 100 unit/mL subcutaneous half-unit pen (Humalog Zafar KwikPen (U-100)) 3 unit subcut DAILY dm 02/25/23 insulin lispro 100 unit/mL subcutaneous half-unit pen (Humalog Zafar KwikPen (U-100)) 63 unit subcut DAILY dm 02/25/23 insulin lispro 100 unit/mL subcutaneous half-unit pen (Humalog Zafar KwikPen (U-100)) 94 unit subcut QHS dm 02/25/23 metformin 500 mg tablet,extended release 24 hr 1,000 mg PO BID Dm 02/25/23 omeprazole 20 mg capsule,delayed release 20 mg PO DAILY gerd 02/25/23 magnesium oxide 400 mg (241.3 mg magnesium) tablet 400 mg PO BID doctor ordered 01/05/25 CPAP - Continuous Positive Airway Pressure([facility] INFORMATIONAL USE ONLY) 01/07/25 OXYGEN - Supplemental ([facility] INFORMATIONAL USE ONLY) 01/07/25 apixaban 5 mg tablet (Eliquis) 5 mg PO BID #60 tabs 01/08/25 levofloxacin 750 mg tablet 750 mg PO DAILY #5 tabs 01/08/25 metoprolol tartrate 75 mg tablet 75 mg PO BID #60 tabs 01/08/25 Hospital Course Operations None Procedures 2-D Echocardiogram Summary of Care Provided Minutes Spent on Discharge: 47 Hospital Course: Patient is a 59-year-old female with a past medical history as outlined including class III obesity and chronic respiratory failure due to COPD was admitted through the ED on 01/05/2025 with a complaint of weakness. She had fallen 3 times at home from her chair the day of admission. This code was called all 3 times and finally patient came to the ED for evaluation. She was saturating at 73% in the ED on her baseline 4 L of oxygen. She was also breathing at 25. She was transition to BiPAP after his saturation was 85% on 12 L of oxygen. She was also febrile with temperature of 102.4 and WBC was 18.8. Chemistry was essentially unremarkable for any acute findings and proBNP was normal at 594. Chest x-ray showed hazy opacities concerning for infiltrate versus pulmonary vascular congestion and EKG showed atrial flutter with variable block. She was admitted to be managed for acute on chronic hypoxic respiratory failure due to acquired pneumonia as well as new onset atrial flutter. She was started on broad-spectrum antibiotics and admitted initially to the ICU. Critical care was consulted. She was weaned off of the BiPAP onto her baseline 3 to 4 L of oxygen. She was started on p.o. metoprolol and also started on Eliquis. TSH was within normal limits. She had 2D echo which showed EF of 55% with no regional wall motion abnormalities noted as well as moderate eccentric left ventricular hypertrophy. Respiratory panel was negative and urine for strep and Legionella were both negative. Blood cultures were also negative. Her shortness of breath improved and she felt much better. She was weaned down to 3 L of oxygen which is what she says she took at home. On the day of discharge, she had walking pulse ox which initially showed that she required 6 L of oxygen. Plans for discharge were therefore show. However she had repeat ambulatory pulse ox which showed that she was now requiring 4 L of oxygen with ambulation. Patient was therefore agreeable to discharge at this point. She was therefore discharged home with p.o. levofloxacin 750 mg daily for 5 days. She was discharged to use 4 L of oxygen with ambulation and 3 L with rest. She is follow-up with her primary care doctor within 1 to 2 weeks. She was also discharged on p.o. metoprolol 75 mg twice daily for atrial flutter as well as p.o. Eliquis 5 mg twice daily. Patient seen and examined prior to discharge. She had no active complaints and had an uneventful night. Review of systems otherwise negative. Labs and vitals reviewed. Home medication reviewed and reconciled. Physical Exam Const alert, oriented x3 and no apparent distress Constitutional Narrative: class III obesity General Appearance: cooperative and comfortable Orientation / Consciousness: awake HEENT normocephalic, head/scalp atraumatic, hearing grossly normal bilaterally, moist oral mucous membranes and oropharynx normal Eyes EOMs intact bilaterally and conjunctivae normal Neck thyroid normal Neck Narrative: Neck is short and thick General: trachea midline Lymph Lymphatic: no lymphedema noted Resp Resp Narrative: mildly diminished breath sounds bibasally, no wheezes or crackles. on 3L of oxygen by nasal canula, 4 L with ambulation Auscultation: Negative for crackles, rales, rhonchi or wheezes Cardio regular rate, regular rhythm, S1 normal heart sound, S2 normal heart sound and no murmurs Cardio Narrative: mild tachycardia GI normal to inspection, nondistended, normoactive bowel sounds, soft to palpation, non-tender and non-distended GI Narrative: Large protuberant abdomen Extremity Extremity Narrative: bilateral lower extremity nonpitting edema. General Extremity: no tenderness to palpation of joints or extremities Skin Skin Narrative: Bilateral lower extremity skin changes consistent with chronic venous stasis General Skin Exam: no breakdown Neuro oriented x3, moves all extremities and no focal motor deficits Sensorium / Orientation: awake and alert Speech: speech normal Motor Exam: general weakness Psych thought process normal, cooperative and affect normal Appearance: appropriate Weight / BMI Weight Weight: 387 lb 9.162 oz Body Mass Index (BMI) 64.5 ABG / Lab / Microbiology Data 01/08/25 05:34 01/08/25 05:34 Laboratory: Laboratory Results - last 24 hr 01/07/25 16:01: POC Glucose 297 H 01/07/25 21:15: Vancomycin Trough 25.0 H 01/07/25 21:52: POC Glucose 277 H 01/08/25 00:30: POC Glucose 206 H 01/08/25 05:34: WBC 9.0, RBC 4.32, Hgb 11.7 L, Hct 37.1, MCV 85.9, MCH 27.1, MCHC 31.5 L D, RDW Std Deviation 45.1 H, RDW Coeff of Ramy 14.2, Plt Count 224, MPV 10.0, Immature Gran % (Auto) 0.600, Neut % (Auto) 72.5 H, Lymph % (Auto) 14.3 L, [place] % (Auto) 9.5, Eos % (Auto) 2.7, Baso % (Auto) 0.4, Absolute Neuts (auto) 6.6, Absolute Lymphs (auto) 1.29, Nucleated RBC % 0, Sodium 142, Potassium 3.7, Chloride 97 L, Carbon Dioxide 34.0 H, Anion Gap 10, BUN 21 H, Creatinine 1.08, Estim Creat Clear Calc 93.69, Est GFR (MDRD) Non-Af 60, BUN/Creatinine Ratio 19.6, Glucose 215 H, Calcium 8.9 01/08/25 08:12: POC Glucose 196 H 01/08/25 09:04: Random Vancomycin 16.3 H 01/08/25 11:32: POC Glucose 266 H Microbiology: Microbiology 01/04/25 23:17 Blood Culture (Wb) - Left Forearm Blood Culture - Preliminary No growth in 48 hours. 01/04/25 23:10 Blood Culture (Wb) - Anticubital Right Blood Culture - Preliminary No growth in 48 hours. 01/05/25 00:02 Urine Catheter - Catheter Urine Culture - Final Culture exhibits no growth. 01/05/25 01:49 Mucosa - Nasopharyngeal Respiratory Panel (PCR) - Final 01/05/25 00:02 Urine Catheter - Catheter Legionella Antigen - Final 01/05/25 00:02 Urine Catheter - Catheter Streptococcus pneumoniae Antigen (M - Final 01/04/25 23:20 Mucosa - Nose SARS-CoV-2, Influenza & RSV (PCR) - Final Radiography Diagnostic Testing: Radiology Impression Echocardiogram 01/07/25 05:55 Interpretation Summary Normal LV size. The left ventricular ejection fraction is 55 %. Moderate eccentric left ventricular hypertrophy. The study was technically difficult. The study was technically limited. Ordering Physician: Rodriguez Hutson Referring Physician: SAMSON HOGAN Performed By: Shanna Aguirre RCS D/C Instructions Discharge Activity: Return to Normal Activity Call your doctor if you observe: Fever of 101 or Higher, Shortness of breath, Dizziness, Swelling in the ankles, Chest pain and Increased palpitations (irregular heartbeat) DC O2, CPAP, BIPAP Needs Home O2 Discharge instructions: Yes Type of respiratory needs?: Oxygen Oxygen frequency: At rest (3) and With Ambulation (4) Oxygen liters per minute during Ambulation: 4 DC home with Oxygen: Yes Home O2 MD Review: I have reviewed the oxygen testing, and the patient qualifies for home oxygen equipment and portability. The patient is mobile in the home and the community. Meaningful Use Info Meaningful Use Meaningful Use Diagnoses (Choose all that apply): None applicable Discharge Plan Admission Admit Date/Time: 01/05/25 02:07 Primary Reason for Your Visit: acute on chronic resp failure, pneumonia, afib Attending Provider: Kelly Oneil Primary Care Provider: Samson Hogan Consulting Providers: Anny Smith; Rodriguez Hutson Instructions Patient Instructions: Pneumonia Community Acquired, AFib Dc, Pneumonia Discharge Orders/Prescriptions Prescriptions: New metoprolol tartrate 75 mg tablet 75 mg PO BID Qty: 60 2RF levofloxacin 750 mg tablet 750 mg PO DAILY Qty: 5 0RF Eliquis 5 mg Tablet 5 mg PO BID Qty: 60 2RF Continued Trulicity 1.5 mg/0.5 mL pen injector 1.5 mg SC FR Patient Comments: Mondays atorvastatin 40 mg tablet 40 mg PO QHS albuterol sulfate 90 mcg/actuation aerosol powdr breath activated 2 inh INHALATION Q4H PRN (Reason: Wheezing) furosemide 40 MG tablet 40 mg PO DAILY lisinopril-hydrochlorothiazide 1 TABLET tablet 1 tab PO BID venlafaxine 150 MG capsule 150 mg PO DAILY gabapentin 300 MG capsule 300 mg PO TID insulin degludec 100 UNIT/ML insulin pen 83 unit SQ BID buspirone 5 MG tablet 7.5 mg PO TID metformin 500 mg tablet extended release 24 hr 1,000 mg PO BID omeprazole 20 mg capsule,delayed release(DR/EC) 20 mg PO DAILY insulin lispro [Humalog Zafar KwikPen U-100] 100 unit/mL insulin pen, half-unit 63 unit subcut DAILY Patient Comments: AM insulin lispro [Humalog Zafar KwikPen U-100] 100 unit/mL insulin pen, half-unit 3 unit subcut DAILY Patient Comments: lunch insulin lispro [Humalog Zafar KwikPen U-100] 100 unit/mL insulin pen, half-unit 94 unit subcut QHS magnesium oxide 400 mg (241.3 mg magnesium) tablet 400 mg PO BID (DME) CPAP - Continuous Positive Airway Pressure([facility] INFORMATIONAL USE ONLY) 0 .Route .MEDSUPPLY Patient Comments: 3lpm bled in to CPAP (DME) OXYGEN - Supplemental ([facility] INFORMATIONAL USE ONLY) 0 .ROUTE .MEDSUPPLY Patient Comments: 3lpm when off CPAP Discontinued ibuprofen 800 mg tablet 800 mg PO Q6H PRN (Reason: Pain Or Fever) atenolol 50 MG tablet 100 mg PO DAILY Referrals / Follow Up: Samson Hogan MD [Primary Care Provider, Medical] - Within 1 Week Disposition Disposition (needs filled in before D/C Order can be placed): Home, Self Care Charges/Coding Visit Charges Inpatient E&M: 47137 Disch Hosp >30min
--- NOTE | 2025-01-08 15:25 | CASEMGMT ---
Pt has a new order for Eliquis. TC to pt's preferred pharmacy, [facility], who states that the pt has a 0$ copay for all of her medications. No further needs identified at this time.
--- NOTE | 2025-01-09 08:04 | CASEMGMT ---
Social Work SW faxed the DC orders to [facility] and [place]. FRANKI Escobar
== END 2025-01-08 18:52 | disposition home or self-care (01) | DRG 720 ==
LOC: ED 01-05 02:19 → ICU 01-05 02:57 → PCU 01-05 17:45
PROVIDERS: Family Medicine; Internal Medicine; Admitting Provider Internal Medicine; Emergency Provider Emergency Medicine; PCP Family Medicine; Visit Provider Student in an Organized Health Care Education/Training Program
DX: A41.9 Sepsis, unspecified organism (principal); J96.22 Acute and chronic respiratory failure with hypercapnia; G93.41 Metabolic encephalopathy; E66.2 Morbid (severe) obesity with alveolar hypoventilation; E11.40 Type 2 diabetes mellitus with diabetic neuropathy, unspecified; B37.2 Candidiasis of skin and nail; J44.0 Chronic obstructive pulmonary disease with (acute) lower respiratory infection; I10 Essential (primary) hypertension; F32.A Depression, unspecified; I48.92 Unspecified atrial flutter; Z68.44 Body mass index [BMI] 60.0-69.9, adult; J96.21 Acute and chronic respiratory failure with hypoxia; Z79.4 Long term (current) use of insulin; K21.9 Gastro-esophageal reflux disease without esophagitis; J18.9 Pneumonia, unspecified organism; F41.9 Anxiety disorder, unspecified; Z79.84 Long term (current) use of oral hypoglycemic drugs; Z79.899 Other long term (current) drug therapy; Z79.85 Long-term (current) use of injectable non-insulin antidiabetic drugs; Z87.891 Personal history of nicotine dependence; R53.81 Other malaise; E66.813 Obesity, class 3; R53.1 Weakness; Z99.81 Dependence on supplemental oxygen; Z79.82 Long term (current) use of aspirin; Z90.49 Acquired absence of other specified parts of digestive tract; Z90.5 Acquired absence of kidney
CPT/HCPCS: 36415; 36600; 51702; 71045; 80048; 80053; 80202; 81001; 82803; 82962; 83036; 83605; 83735; 83880; 84100; 84145; 84443; 85025; 87040; 87086; 87449; 87631; 87633; 87641; 93005; 93306; 94002; 94003; 94640; 94762; 97162; 97165; 97530; 97803; 99252; 99285; Q9957; A4216; G0463; J1938